=== PATIENT | male | born 1965 | race Caucasian/White ===

== ENCOUNTER 2019-07-07 14:50 | Outpatient (CLI) | payer MEDICARE, MEDICAID, SELFPAY ==
--- NOTE | 2019-07-07 14:59 | CT_ITS ---
WS: [id number] CT ABDOMEN PELVIS TECHNIQUE: Noncontrast CT of the abdomen and pelvis with coronal and sagittal reformatted images. CLINICAL INFORMATION: FLANK PAIN COMPARISON: CT 2 15,019 DLP: 1182.[address] scans at [facility] use at least one of these dose optimization techniques: automat ed exposure control; mA and/or kV adjustment per patient size (includes targeted exams where dose is matched to clinical indication); or iterative reconstruction. FINDINGS: Noncontrast liver is normal in appearance. A few small hepatic cyst in the left hepatic lobe and righ t hepatic lobe laterally. Extensive diffuse polycystic kidneys bilaterally similar in appearance to p rior examination. Largest dominant cyst right kidney measures approximately 8.2 x 6.7 cm this is stab le compared to the prior examination. Dominant left-sided cyst lower pole left kidney measuring 8.4 c m also stable. The cystic burden overall appears unchanged. Some of the renal cyst are increased atte nuation likely calcified and/or hemorrhagic also similar in appearance. Again seen is extensive bilateral pelvocaliectasis with severe bilateral hydronephrosis. Moderate ure terectasis. This is unchanged in appearance since 2019. Ureters are dilated down to the UVJ. Mild diffuse bladder wall thickening can be seen with bladder ou tlet obstruction and/or cystitis. Prostate measures approximately 3.2 x 3.9 CM. No obstructing ureter al calculi. Small esophageal hiatal hernia. Lung bases are well aerated. Normal lumbar spine. Small amount of emani e fluid in the pelvis. Stable peritoneal dialysis catheter. CT/CT kidney stone [id number] IMPRESSION: 1. Extensive polycystic kidney disease bilaterally unchanged since 2019. 2. Severe bilateral hydronephrosis with pelvocaliectasis and ureterectasis is also unchanged. No obstructing ureteral calculi. Ureterectasis extends to the U VJ. 3. Mild diffuse bladder wall thickening can be seen with chronic bladder outle t obstruction or cystitis. This is also unchanged. 4. Small amount of free fluid in the pelvis. 5. Stable peritoneal dialysis catheter.
== END 2019-07-07 14:51 | disposition home or self-care (01) ==
LOC: RADWPI 14:58
PROVIDERS: Family Provider Family Medicine; Visit Provider Internal Medicine Nephrology
DX: R10.9 Unspecified abdominal pain (principal); Z87.442 Personal history of urinary calculi; N18.6 End stage renal disease; Q61.3 Polycystic kidney, unspecified; N13.30 Unspecified hydronephrosis; N13.4 Hydroureter
CPT/HCPCS: 74176

== ENCOUNTER 2019-08-01 07:08 | Outpatient (CLI) | payer MEDICARE, MEDICAID, SELFPAY ==
[2019-08-01 07:23] VITALS: BMI 29.0
[2019-08-01] MEDS: diphenhydrAMINE 25 mg Capsule (08:26)
[2019-08-01 08:35] VITALS: BP 147/89; PULSE 65; RESP 18; TEMP 36.4
[2019-08-01 08:49] VITALS: BP 161/82; PULSE 63; RESP 18; TEMP 36.7
[2019-08-01 09:05] VITALS: BP 176/89; PULSE 61; RESP 18; TEMP 37.2
[2019-08-01 09:35] VITALS: BP 178/95; PULSE 62; RESP 18; TEMP 37.1
[2019-08-01 10:05] VITALS: BP 163/95; PULSE 57; RESP 18; TEMP 37
== END 2019-08-01 07:09 | disposition home or self-care (01) ==
PROVIDERS: Family Provider Family Medicine; Visit Provider Internal Medicine Nephrology
DX: K92.2 Gastrointestinal hemorrhage, unspecified (principal); R31.9 Hematuria, unspecified; D63.1 Anemia in chronic kidney disease; Q61.2 Polycystic kidney, adult type; R53.83 Other fatigue
CPT/HCPCS: 36430; 86850; 86900; 86920; P9040

== ENCOUNTER 2019-11-27 00:44 | Inpatient (IN) | payer MEDICARE, MEDICAID, SELFPAY ==
[2019-11-27] VITALS (31 sets, daily range): BP systolic 108–162; BP diastolic 60–97; PULSE 67–83; RESP 14–25; TEMP 36.6–36.9; O2SAT 91–100; BMI 29.0
[2019-11-27 01:34] LABS: Basophils % 0.1 %; Eosinophils % 0.2 %; Hematocrit 30.7 % (42.0-52.0); Hemoglobin 10.5 g/dL (11.7-16.6); Lymphocytes % 9.4 %; Mean Corpuscular HGB Conc 34.2 g/dL (30.0-36.0); Mean Corpuscular Hemoglobin 30.2 pg (28.0-34.0); Mean Corpuscular Volume 88.2 fL (80-94); Monocytes # 0.9 10^3/uL (0.2-0.9); Monocytes % 8.5 %; Neutrophils # 8.5 10^3/uL (1.8-7.7); Neutrophils % 81.5 %; Nucleated Red Blood Cells % 0 %; Platelet Count 166 10^3/cmm (130-400); Red Blood Count 3.48 10^6/uL (4.1-5.3); Red Cell Distribution Width 13.8 % (12.1-15.1); White Blood Count 10.4 10^3/uL (4.0-10.0)
[2019-11-27 01:47] LABS: Alanine Aminotransferase 14 U/L (0-41); Albumin Level 3.5 g/dL (3.5-5.2); Alkaline Phosphatase 60 IU/L (40-130); Anion Gap 26.4 (5-19); Aspartate Amino Transferase 13 U/L (0-40); Calcium 9.9 mg/dL (8.5-10.5); Carbon Dioxide 22 mmol/L (22-29); Chloride 88 mmol/L (98-107); Globulin 2.8 g/dL (1.3-4.6); Glomerular Filtration Rate 3.1 mL/min (90-130); Glucose 123 mg/dL (65-115); Osmolality Calculated 277 mOsm/kg (285-295); Potassium 3.4 mmol/L (3.5-5.1); Sodium 133 mmol/L (136-145); Total Bilirubin 0.3 mg/dL (0.15-1.2); Total Protein 6.3 g/dL (6.6-8.7)
[2019-11-27 01:49] LABS: Blood Urea Nitrogen 83 mg/dL (6-20)
[2019-11-27 01:58] LABS: INR 1.01 (0.8-1.2); Partial Thromboplastin Time 33.3 SECONDS (23.9-36.7)
[2019-11-27 02:31] LABS: Magnesium 2.5 mg/dL (1.7-2.3); Phosphorus 7.2 mg/dL (2.5-4.5)
[2019-11-27 02:36] LABS: Add Urine Microscopic? YES; Bilirubin Urine Neg (NEGATIVE); Blood Urine 3+ (Negative); Glucose Urine UA Norm (Normal); Ketones Urine Negative (Negative); Leukocyte Esterase Urine 2+ (Negative); Nitrate Urine Positive (Negative); Protein Urine 3+ (Negative); Specific Gravity, Urine 1.005 (1.005-1.030); Sulfosalicylic Acid Urine Positive (Negative); Urine Appearance Bloody (CLEAR); Urine Color Yellow (Yellow); Urobilinogen Urine Norm (Negative); pH Urine 8 (5-7)
[2019-11-27 02:38] LABS: Add Urine Culture? Yes; Bacteria Urine 2+; RBC Urine TOO NUMEROUS TO CNT /hpf (0-2); Squamous Epithelial Cell Urine 0-4 (0-5); WBC Urine TOO NUMEROUS TO CNT /hpf (0-5)
--- NOTE | 2019-11-27 03:24 | P.HP_ITS ---
Providers/Chief Complaint Chief Complaint: POSSIBLE LOW HEMOGLOBIN History of Present Illness Navneet Savage is a 54 year old male who is a patient of Dr. Candelaria for end-stage renal disease, peritoneal dialysis dependent, came in for generalized weakness. Patient is stating that he manages his peritoneal dialysis on his own. For last 2 to 3 weeks he has been feeling extremely tired and fatigued, he has not experienced any fever, chest pain, neurological deficit, chills, dysuria , shortness of breath, orthopnea or PND. His p.o. intake has decreased, he experiences loose stools on and off but no aggravation recently, no recent use of antibiotics. He hardly gets out of his home. Smokes half a pack a day, does not drink alcohol. Because of his generalized weakness and increasing lethargy he decided to come to the hospital for further evaluation. No recent sick contacts or traveling history. Diagnostics in the ER revealed chronic anemia, mild leukocytosis, hypokalemia, uremia abnormal urinalysis with positive nitrates with pyuria positive leukocyte esterase however he has been afebrile in the hospital, systolic blood pressure ranging between 1 50-[address] abdomen pelvis because of previous history of nephrolithiasis and ureteral ectasia Review of Systems Const: Reports: chills, body aches, fatigue and malaise; Denies: fever(s) Eyes: Denies: change in vision ENMT: Denies: throat pain or uvular edema Card: Denies: chest pain or swelling of feet/ankles Resp: Denies: dyspnea GI: Reports: diarrhea; Denies: abdominal pain, nausea or vomiting : Denies: flank pain or difficulty urinating Musc: Denies: neck pain, joint stiffness, limited range of motion or muscle weakness Skin/Breast: Denies: rash or pruritus Neuro: Denies: headache(s) or weakness in extremities Psych: Reports: depression and sleeping more; Denies: anxiety or mood swings Endo: Denies: polyuria Lucas/Lymph: Denies: easy bruising All/Imm: Denies: urticaria Medications/Allergies Allergies Allergy/AdvReac Type Severity Reaction Status Date / Time Penicillins Allergy ALGY-Anaphy Verified 08/01/19 07:27 laxis Sulfa (Sulfonamide Allergy Unknown Verified 08/01/19 07:27 Antibiotics) PFSH Acute PFSH: Medical History Bradycardia CVA (cerebral vascular accident) Dependence on peritoneal dialysis Hypertension Nicotine dependence Peritoneal dialysis catheter in situ Polycystic kidney disease Surgical History History of surgical procedure Peritoneal dialysis catheter placement by Dr. Kamara 2015 Family History Other Chronic kidney disease (CKD) Hypertension Social History (Updated 11/27/19 @ 04:23 by Deborah Singh MD) Smoking and tobacco status: heavy tobacco smoker cigarettes [ Other cigarette details: Half a pack per day for last 20-30 years ] Alcohol intake: never Substance/Drug Use: never Household members: family Housing: House Vitals/I&O/Wt Last Vital Signs Temp 98.1 F 11/27/19 00:54 Pulse 82 11/27/19 02:23 Resp 14 11/27/19 02:23 BP 151/83 11/27/19 02:23 Pulse Ox 96 11/27/19 02:23 Weight last 48 hrs Weight 81.647 kg Physical Exam Narrative: EXAM NARRATIVE: Head to toe examination Dehydrated emaciated unkempt appearance Awake alert oriented x3 GCS 15 Asterixis negative No active signs of fluid overload S1, S2 no signs of heart failure or tachycardia Bilateral breath sounds without adventitious rhonchi or crackles No respiratory distress Abdomen distended, visceral obesity, peritoneal dialysis site without any drainage or signs of infection Abdomen is soft Neurologically no focal deficit Awake alert oriented No signs of icterus No CVA tenderness Data : 11/27/19 01:25 11/27/19 01:25 A&P Assessment and plan (1) Acute UTI: Status: Acute (2) Acute uremia: Status: Acute (3) Chronic kidney failure: Status: Acute Qualifiers: Chronic kidney disease stage: stage 5 Qualified Code(s): N18.5 - Chronic kidney disease, stage 5 (4) Chronic anemia: Status: Acute Additional A&P Information Generalized weakness with UTI Seems secondary to electrolyte imbalance, UTI and uremia Afebrile, normal blood pressure, mild leukocytosis with abnormal urinalysis Patient is not sexually active I have requested CT abdomen to rule out nephrolithiasis We will check TSH Rule out COVID Would use ferritin and CRP along d-dimer to monitor inflammatory markers Urine culture sent Previous CT scan showed hydroureter leg ectasia without calculi Renal consult Peritoneal dialysis dependent I believe he is not dialyzing himself very well, still has uremia Hypokalemic, hyperphosphatemia Non-acidotic Anemia of chronic disease Hemoglobin stable no active bleeding Full code DVT prophylaxis would avoid anticoagulation because of history of anemia Renal diet Attestations Medical Necessity Statement*: Anticipating discharge in less than 48 hours Time Spent in Patient Care: (>than 50% of time spent in counselling and/or direct pt care on unit) . 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
--- NOTE | 2019-11-27 03:35 | CTR_ITS ---
PROCEDURE INFORMATION: Exam: CT Abdomen And Pelvis Without Contrast Exam date and time: 11/27/2019 3:50 AM Age: 54 years old Clinical indication: Nausea; Additional info: History of nephrolithiasis TECHNIQUE: Imaging protocol: Computed tomography of the abdomen and pelvis without contrast. Radiation optimization: All CT scans at this facility use at least one of these dose optimization techniques: automated exposure control; mA and/or kV adjustment per patient size (includes targeted exams where dose is matched to clinical indication); or iterative reconstruction. COMPARISON: CT Abdomen/Pelvis Renal [id number] 2018-07-08 11:47 FINDINGS: Tubes, catheters and devices: Peritoneal dialysis catheter present. Lungs: There is a pulmonary parenchymal calcification consistent with remote granulomatous organism exposure. Heart: Low dense blood pool in the heart indicating anemia. Liver: Small, less than 5 mm, liver hypodensity. Highly likely to be benign and does not require follow-up imaging or biopsy per ACR. Gallbladder and bile ducts: Normal. No calcified stones. No ductal dilation. Pancreas: Normal. No ductal dilation. Spleen: Borderline splenic enlargement. Adrenals: Benign 1.7 cm left adrenal adenoma. Kidneys and ureters: Extremely large bilateral polycystic kidneys with numerous large cysts, some are hemorrhagic or proteinaceous. Bilateral unchanged severe hydroureter and hydronephrosis leading up to the ureteralvesicular junction without calculi. Severely enlarged kidneys displace the surrounding internal structures. Stomach and bowel: Nonspecific cecal wall thickening, recommend followup to exclude neoplasm. Appendix: No evidence of appendicitis. Intraperitoneal space: Small amount of free fluid. Vasculature: Unremarkable. No abdominal aortic aneurysm. Lymph nodes: Unremarkable. No enlarged lymph nodes. Bladder: Bladder wall thickening. Reproductive: Mild prostate gland enlargement with punctate calcification. Bones/joints: Unremarkable. No acute fracture. Soft tissues: Unremarkable. Other findings: Innumerable Total DLP (mGy-cm): 1581.59 CT/CT kidney stone [id number] IMPRESSION: 1. Nonspecific cecal wall thickening, recommend followup to exclude neoplasm. 2. Extremely large bilateral polycystic kidneys with numerous large cysts, some are hemorrhagic or proteinaceous. 3. Small amount of free fluid. Peritoneal dialysis catheter present. 4. Bladder wall thickening. Bilateral unchanged severe hydroureter and hydronephrosis leading up to the ureteralvesicular junction without calculi. 5. Benign 1.7 cm left adrenal adenoma. COMMENTS: Consistent with the [employer]'s Incidental Findings Committee white paper (J Am Eriberto Radiol 2017): For any incidental adrenal lesion greater than 1.0 cm but less than 4.0 cm classified in this report as benign, likely benign, or containing fat (including classification as an adenoma or myelolipoma), no follow-up imaging is recommended per consensus recommendations based on imaging criteria. Further lab evaluation could be pursued if warranted based on clinical findings. Radiation Dose CTDIVOL = (mGy): DLP = 1581.59 (mGy-cm)
--- NOTE | 2019-11-27 03:47 | ED_ITS ---
HPI - General Adult General: Chief complaint: General Medical Stated complaint: POSSIBLE LOW HEMOGLOBIN Time Seen by Provider: 11/27/19 01:04 History of Present Illness: HPI narrative: 54-year-old male complains of generalized weakness for the past several days. He fell once. He has been quite sleepy according to his . No fever. He does peritoneal dialysis at home. No changes to that recently. He has had to have multiple transfusions in the past, and his figured that his blood count was low. Onset (ago): day(s) Radiation: non-radiation Severity: moderate Quality: other Exacerbating factors: movement Associated symptoms: Reports confusion, headache(s) and weakness; Deny chest pain, cough, dyspnea, fevers/chills, rash or vomiting Review of Systems Const: Denies: fever(s) or chills Eyes: Denies: change in vision ENMT: Denies: swelling of lips/tongue or epistaxis Card: Denies: chest pain Resp: Denies: dyspnea or wheezing GI: Denies: vomiting : Reports: hematuria; Denies: difficulty urinating or dysuria Musc: Reports: back pain; Denies: neck pain or joint warmth Skin/Breast: Denies: rash, pruritus or erythema Neuro: Reports: headache(s) and confusion Psych: Denies: anxiety PFSH ED PFSH: Medical History (Updated 11/27/19 @ 04:00 by Thomas Smart DO) Bradycardia CVA (cerebral vascular accident) Dependence on peritoneal dialysis Hypertension Nicotine dependence Peritoneal dialysis catheter in situ Polycystic kidney disease Surgical History (Updated 11/27/19 @ 03:35 by Deborah Singh MD) History of surgical procedure Peritoneal dialysis catheter placement by Dr. Kamara 2015 Family History (Updated 11/27/19 @ 03:30 by Deborah Singh MD) Other Chronic kidney disease (CKD) Hypertension Social History (Updated 11/27/19 @ 03:31 by Deborah Singh MD) Smoking and tobacco status: former smoker Alcohol intake: never Substance/Drug Use: never Household members: family Housing: House Physical Exam Const: GENERAL APPEARANCE: well developed, lethargic and ill appearing ORIENTATION/CONSCIOUSNESS: Yes oriented to person, Yes oriented to place, Yes oriented to time and Yes lethargic HENMT: COMMON NORMALS: normocephalic, external ears normal and Normal external nose present HEAD & SCALP: normocephalic; no scalp tenderness FACE & SINUS: normal facial exam NOSE: Normal external nose present and No nasal discharge present EXTERNAL EAR: Yes external ears normal MOUTH: tongue normal Eye: COMMON NORMALS: Equal, round and reactive pupils present, EOMs intact bilaterally and conjunctivae normal EYELID: eyelids normal CONJUNCTIVA: Yes conjunctivae normal PUPIL: Yes Equal, round and reactive pupils present Neck/C-Spine: COMMON NORMALS: full ROM GENERAL: No tracheal deviation Chest: COMMONS NORMALS: normal inspection of the chest CHEST: No tenderness Resp: COMMON NORMALS: clear to auscultation bilaterally EFFORT & INSPECTION: No tachypneic, No respiratory distress, No retractions, No uses accessory muscles and No tracheal deviation AUSCULTATION: clear to auscultation bilaterally, no rhonchi, no wheezes and lung sounds not diminished Cardio: COMMON NORMALS: regular rate and regular rhythm RATE: regular rate RHYTHM: regular rhythm HEART SOUNDS: no murmurs PERIPHERAL PULSES: radial pulses present GI: INSPECTION: No abdominal distension AUSCULTATION: No Hyperactive bowel sounds present and No Hypoactive bowel sounds present PALPATION: No Guarding due to palpation present (GI) and No Rigid due to palpation PERCUSSION: no dullness to percussion and no tympanic to percussion Neuro: SENSORIUM/ORIENTATION: Yes oriented to person, Yes oriented to place, Yes oriented to time and Yes lethargic SPEECH: Other neuro speech findings (Slurring) SENSORY EXAM: Yes extremities (Intact) MOTOR EXAM: Pronator motor function not present Skin: COMMON NORMALS: no rashes or lesions noted GENERAL SKIN EXAM: no rashes or lesions noted Course Consultations: Consultation #1: nita Vital Signs: Vital signs: Vital Signs Temperature 98.1 F 11/27/19 00:54 Pulse Rate 82 11/27/19 03:48 Respiratory Rate 16 11/27/19 03:48 Blood Pressure 150/89 11/27/19 03:48 Pulse Oximetry 99 11/27/19 03:48 MDM - General Adult MDM Narrative: Medical decision making narrative: 54-year-old male dialysis patient. He does peritoneal dialysis. He is experienced lethargy, malaise, some mild confusion. He is not had a fever. His white blood cell count is 10.4. His hemoglobin is 10.5. His BUN is 83 with a creatinine of 16.2. His bicarbonate level is normal. He has hematuria. He has a urinary tract infection. CT renal stone protocol is been ordered. He will get Rocephin here. He will be admitted. Hospitalist agrees. Lab Data: Labs: Lab Results 11/27/19 11/27/19 11/27/19 Range/Units 01:25 01:25 01:25 WBC 10.4 H (4.0-10.0) 10^3/ uL RBC 3.48 L (4.1-5.3) 10^6/u L Hgb 10.5 L (11.7-16.6) g/dL Hct 30.7 L (42.0-52.0) % MCV 88.2 (80-94) fL MCH 30.2 (28.0-34.0) pg MCHC 34.2 (30.0-36.0) g/dL RDW 13.8 (12.1-15.1) % Plt Count 166 (130-400) 10^3/c mm MPV 10.0 (7.4-10.4) fL Neut % (Auto) 81.5 % Lymph % (Auto) 9.4 % [place] % (Auto) 8.5 % Eos % (Auto) 0.2 % Baso % (Auto) 0.1 % Neut # (Auto) 8.5 H (1.8-7.7) 10^3/u L Lymph # (Auto) 1.0 (0.8-4.8) 10^3/u L [place] # (Auto) 0.9 (0.2-0.9) 10^3/u L Eos # (Auto) 0.0 (0.0-0.8) 10^3/u L Baso # (Auto) 0.0 (0.0-0.1) 10^3/u L Nucleated RBC % (a uto) 0 % Nucleated RBCs # 0.0 /100WBC PT 13.60 H (10.5-13.3) SECO NDS INR 1.01 (0.8-1.2) APTT 33.3 (23.9-36.7) SECO NDS Sodium 133 L (136-145) mmol/L Potassium 3.4 L (3.5-5.1) mmol/L Chloride 88 L (98-107) mmol/L Carbon Dioxide 22 (22-29) mmol/L Anion Gap 26.4 H (5-19) BUN 83 H* (6-20) mg/dL Creatinine 16.2 H* (0.7-1.2) mg/dL GFR Calculation 3.1 L (90-130) mL/min Glucose 123 H (65-115) mg/dL Calculated Osmolal ity 277 L (285-295) mOsm/k g Calcium 9.9 (8.5-10.5) mg/dL Phosphorus (2.5-4.5) mg/dL Magnesium (1.7-2.3) mg/dL Total Bilirubin 0.3 (0.15-1.2) mg/dL AST 13 (0-40) U/L ALT 14 (0-41) U/L Alkaline Phosphata se 60 (40-130) IU/L Total Protein 6.3 L (6.6-8.7) g/dL Albumin 3.5 (3.5-5.2) g/dL Globulin 2.8 (1.3-4.6) g/dL Urine Color (Yellow) Urine Appearance (CLEAR) Urine pH (5-7) Ur Specific Gravit y (1.005-1.030) Urine Protein (Negative) Urine Glucose (UA) (Normal) Urine Ketones (Negative) Urine Blood (Negative) Urine Nitrate (Negative) Urine Bilirubin (NEGATIVE) Prot Sulfosalicyli c Acd (Negative) Urine Urobilinogen (Negative) mg/dL Ur Leukocyte Estephania ase (Negative) Urine RBC (0-2) /hpf Urine WBC (0-5) /hpf Ur Squamous Epith Cells (0-5) Amorphous Sediment Urine Bacteria (NONE) Blood Type Rho(D) Type Antibody Screen 11/27/19 11/27/19 11/27/19 Range/Units 01:25 01:25 01:56 WBC (4.0-10.0) 10^3/ uL RBC (4.1-5.3) 10^6/u L Hgb (11.7-16.6) g/dL Hct (42.0-52.0) % MCV (80-94) fL MCH (28.0-34.0) pg MCHC (30.0-36.0) g/dL RDW (12.1-15.1) % Plt Count (130-400) 10^3/c mm MPV (7.4-10.4) fL Neut % (Auto) % Lymph % (Auto) % [place] % (Auto) % Eos % (Auto) % Baso % (Auto) % Neut # (Auto) (1.8-7.7) 10^3/u L Lymph # (Auto) (0.8-4.8) 10^3/u L [place] # (Auto) (0.2-0.9) 10^3/u L Eos # (Auto) (0.0-0.8) 10^3/u L Baso # (Auto) (0.0-0.1) 10^3/u L Nucleated RBC % (a uto) % Nucleated RBCs # /100WBC PT (10.5-13.3) SECO NDS INR (0.8-1.2) APTT (23.9-36.7) SECO NDS Sodium (136-145) mmol/L Potassium (3.5-5.1) mmol/L Chloride (98-107) mmol/L Carbon Dioxide (22-29) mmol/L Anion Gap (5-19) BUN (6-20) mg/dL Creatinine (0.7-1.2) mg/dL GFR Calculation (90-130) mL/min Glucose (65-115) mg/dL Calculated Osmolal ity (285-295) mOsm/k g Calcium (8.5-10.5) mg/dL Phosphorus 7.2 H (2.5-4.5) mg/dL Magnesium 2.5 H (1.7-2.3) mg/dL Total Bilirubin (0.15-1.2) mg/dL AST (0-40) U/L ALT (0-41) U/L Alkaline Phosphata se (40-130) IU/L Total Protein (6.6-8.7) g/dL Albumin (3.5-5.2) g/dL Globulin (1.3-4.6) g/dL Urine Color Yellow (Yellow) Urine Appearance Bloody A (CLEAR) Urine pH 8 H (5-7) Ur Specific Gravit y 1.005 (1.005-1.030) Urine Protein 3+ H (Negative) Urine Glucose (UA) Norm (Normal) Urine Ketones Negative (Negative) Urine Blood 3+ H (Negative) Urine Nitrate Positive H (Negative) Urine Bilirubin Neg (NEGATIVE) Prot Sulfosalicyli c Acd Positive (Negative) Urine Urobilinogen Norm (Negative) mg/dL Ur Leukocyte Estephania ase 2+ H (Negative) Urine RBC Too numerous to c nt H (0-2) /hpf Urine WBC Too numerous to c nt H (0-5) /hpf Ur Squamous Epith Cells 0-4 H (0-5) Amorphous Sediment Not Reportable Urine Bacteria 2+ H (NONE) Blood Type A Positive Rho(D) Type Positive Antibody Screen Negative Discharge Plan Discharge Patient Disposition: Admitted As Inpatient Clinical Impression: Acute UTI, Acute uremia Chronic kidney failure Qualifiers: Chronic kidney disease stage: stage 5 Qualified Code(s): N18.5 - Chronic kidney disease, stage 5 Condition: Stable Coding Level of Care Code ED Physical Therapy Aide for Eric Fwd Exam Comprehensive
[2019-11-27] MEDS: cefTRIAXone 1,000 MG in sodium chloride 0.9% (plus) 50 ML 100 MG IV (04:20)
--- NOTE | 2019-11-27 06:43 | PC.NURSE ---
Pt arrived to room from ER. Currently resting in bed, breathing is even and unlabored. Denies any pain. VS WNL. Will pass on report to day shift nurse. Call light and bedside table within reach. Bed in lowest position.
--- NOTE | 2019-11-27 06:50 | PC.NURSE ---
Report received from ARNALDO Harper. Pt recently arrived from ED. He has an #18 Iv in right FA. He has a patch on his left shoulder.. He is CSU of, covid rule out. Care assumed.
--- NOTE | 2019-11-27 07:30 | PC.NURSE ---
Telenephrology done. Pt to received PD today. Patch on left shoulder verified to be clonodine, pt stated it was applied 4 days ago, and is due to be changed. Pt is a poor historian, unable to tell Dr Luis what PC fluid he used, but able to say yellow bag.
--- NOTE | 2019-11-27 07:49 | PM.CONSULT ---
Providers/Reason For Consult Consulting Physican/Specialty*: jorge ziegler md telenephrology Reason for Consult*: ESRD care Attending Physician: Richie Loaiza MD History of Present Illness History of Present Illness Navneet Savage is a 54 year old male ESRD, polycystic kidneys and known hydroureters. Pt on CCPD. pt here w/ weakness and lethargy. has htn Review of Systems General: Reports: 10 or more systems reviewed and unremarkable except in HPI and below Narrative: full ROS reviewed- he is weak, lethargic, poor appetite, depressed, poor BM Meds/Allergies Home Medications and Allergies Allergies Allergy/AdvReac Type Severity Reaction Status Date / Time Penicillins Allergy ALGY-Anaphy Verified 08/01/19 07:27 laxis Sulfa (Sulfonamide Allergy Unknown Verified 08/01/19 07:27 Antibiotics) PFSH Acute PFSH: Medical History Bradycardia CVA (cerebral vascular accident) Dependence on peritoneal dialysis Hypertension Nicotine dependence Peritoneal dialysis catheter in situ Polycystic kidney disease Surgical History History of surgical procedure Peritoneal dialysis catheter placement by Dr. Kamara 2015 Family History Other Chronic kidney disease (CKD) Hypertension Social History (Updated 11/27/19 @ 04:23 by Deborah Singh MD) Smoking and tobacco status: heavy tobacco smoker cigarettes [ Other cigarette details: Half a pack per day for last 20-30 years ] Alcohol intake: never Substance/Drug Use: never Household members: family Housing: House Vitals/I&O/Wt Last Vital Signs Temp 98.4 F 11/27/19 06:30 Pulse 75 11/27/19 06:30 Resp 14 11/27/19 06:30 BP 162/86 11/27/19 06:30 Pulse Ox 99 11/27/19 06:30 Weight last 48 hrs Weight 81.647 kg Physical Exam Narrative: EXAM NARRATIVE: disshelved, NARD in bed vs noted- BP elevated heent- nc/at, eomi, anicteric neck no jvp, no bruits lungs cta b/l heart reg no rub abd soft, nt. nd, +BS, + tenkoff catheter ext no edema neuro- a,a, o x 3 Data Imaging^: CT Abd/Pel: Radiologist's impression: [address] [place] [address] CT Scan Report Signed Patient: Navneet Savage #: [id number] : 1965Acct#:[id number] Age/Sex: 54 / MADM Date: 11/27/19 Loc: ERRoom/Bed: Attending Dr: Ordering Provider/Ordering MD: Deborah Singh MD Date of Service: 11/27/19 Procedure(s): CT kidney stone 85540 Accession Number(s): [id number] Report Number: [id number] PROCEDURE INFORMATION: Exam: CT Abdomen And Pelvis Without Contrast Exam date and time: 11/27/2019 3:50 AM Age: 54 years old Clinical indication: Nausea; Additional info: History of nephrolithiasis TECHNIQUE: Imaging protocol: Computed tomography of the abdomen and pelvis without contrast. Radiation optimization: All CT scans at this facility use at least one of these dose optimization techniques: automated exposure control; mA and/or kV adjustment per patient size (includes targeted exams where dose is matched to clinical indication); or iterative reconstruction. COMPARISON: CT Abdomen/Pelvis Renal [id number] 2018-07-08 11:47 FINDINGS: Tubes, catheters and devices: Peritoneal dialysis catheter present. Lungs: There is a pulmonary parenchymal calcification consistent with remote granulomatous organism exposure. Heart: Low dense blood pool in the heart indicating anemia. Liver: Small, less than 5 mm, liver hypodensity. Highly likely to be benign and does not require follow-up imaging or biopsy per ACR. Gallbladder and bile ducts: Normal. No calcified stones. No ductal dilation. Pancreas: Normal. No ductal dilation. Spleen: Borderline splenic enlargement. Adrenals: Benign 1.7 cm left adrenal adenoma. Kidneys and ureters: Extremely large bilateral polycystic kidneys with numerous large cysts, some are hemorrhagic or proteinaceous. Bilateral unchanged severe hydroureter and hydronephrosis leading up to the ureteralvesicular junction without calculi. Severely enlarged kidneys displace the surrounding internal structures. Stomach and bowel: Nonspecific cecal wall thickening, recommend followup to exclude neoplasm. Appendix: No evidence of appendicitis. Intraperitoneal space: Small amount of free fluid. Vasculature: Unremarkable. No abdominal aortic aneurysm. Lymph nodes: Unremarkable. No enlarged lymph nodes. Bladder: Bladder wall thickening. Reproductive: Mild prostate gland enlargement with punctate calcification. Bones/joints: Unremarkable. No acute fracture. Soft tissues: Unremarkable. Other findings: Innumerable Total DLP (mGy-cm): 1581.59 CT/CT kidney stone 18237 IMPRESSION: 1. Nonspecific cecal wall thickening, recommend followup to exclude neoplasm. 2. Extremely large bilateral polycystic kidneys with numerous large cysts, some are hemorrhagic or proteinaceous. 3. Small amount of free fluid. Peritoneal dialysis catheter present. 4. Bladder wall thickening. Bilateral unchanged severe hydroureter and hydronephrosis leading up to the ureteralvesicular junction without calculi. 5. Benign 1.7 cm left adrenal adenoma. A&P Additional A&P Information 54 yr old man 1. ESRD- cont CAPD w/ 4 exchanges a day of 2.5% gluc 2. hypokalemia -replete 3. Likely UTI- u/a bloody, alkalotic, 3+ prot, pos nitirite,2+ LE, too numerous to counts RBC and WBC, bact 2+ 4. anemia of ESRD 5. Bone- mineral- metabolism of ESRD- check ca, phos, pth 6. htn- catapress patch, CAPD, hydralazine, clonidine- monitor for hypotension 7. d/c na bicarb 8. 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
[2019-11-27 07:56] LABS: Procalcitonin 0.64 ng/mL (0-0.5); Thyroid Stimulating Hormone 5.79 uIU/mL (0.27-4.20)
[2019-11-27 08:07] LABS: Creatine Phosphokinase 136 U/L (39-308)
[2019-11-27] MEDS: sodium bicarbonate 650 mg Tablet PO ×3 (08:11→22:24)
[2019-11-27] MEDS: hyDRALAzine 10 mg Tablet PO ×3 (08:11→22:24)
[2019-11-27] MEDS: NIFEdipine ER (24 hr) 30 mg Tablet 90 MG PO (08:11)
[2019-11-27] MEDS: potassium chloride ER 10 mEq Tablet 20 MEQ PO (08:11)
[2019-11-27] MEDS: polyethylene glycol 3350 Pkt 17 gm PO (08:11)
[2019-11-27] MEDS: tamsulosin 0.4 mg Capsule PO (08:12)
[2019-11-27 08:21] LABS: Ferritin 1195 ng/mL (30-400)
[2019-11-27] MEDS: cloNIDine 0.3 mg/24 hr Patch 1 PATCH TRANSDERMA (09:34)
[2019-11-27] MEDS: Dianeal low Ca w/2.5% dex 2,000 mL Bag 2000 ML INTRAPERIT ×4 (09:37→22:24)
[2019-11-27 11:00] LABS: Amphetamines Screen Urine Negative (Negative); Barbiturates Screen Urine Negative (Negative); Benzodiazepines Screen Urine Negative (Negative); Cocaine Screen Urine Negative (Negative); Opiate Screen Urine Negative (Negative); PCP Screen Urine Negative (Negative); THC Screen Urine Negative (Negative)
[2019-11-27 11:27] LABS: Iron 61 ug/dL (59-158); Percent Saturation 45.1 % (20-50); Total Iron Binding Capacity 135 mcg/dl; Unsaturated Iron Binding 74 ug/dL (112-347)
--- NOTE | 2019-11-27 12:19 | PM.PN ---
Subjective Subjective: Interval history: Admitted overnight. H&P and labs noted. Patient lying comfortably in bed. COVID-19 has been sent out. Patient has been feeling weak, lethargic and some myalgias for last 2 to 3 weeks. She is also been complaining of some diarrhea and abdominal pain. Vitals/I&O/Wt Last Vital Signs Temp 98.1 F 11/27/19 09:37 Pulse 72 11/27/19 10:30 Resp 18 11/27/19 10:30 BP 125/72 11/27/19 10:30 Pulse Ox 98 11/27/19 10:30 Weight last 48 hrs Weight 81.057 kg Weight 81.647 kg Physical Exam Narrative: EXAM NARRATIVE: General: No acute distress, AO x3, cachectic, dehydrated, pale HEENT: PERRLA, pupils bilaterally equal and reactive Chest: Normal vesicular breath sounds, no added sounds, equal good air entry bilaterally CVS: S1-S2 regular, no murmurs, no tachycardia, no gallops, no rubs Abdomen: Soft, generalized tenderness, no organomegaly, bowel sounds present Neuro: No focal deficits, no facial deformity, AO x3, power 5/5 in all limbs Data : 11/27/19 01:25 11/27/19 01:25 A&P Assessment and plan (1) Acute UTI: Status: Acute (2) Acute uremia: Status: Acute (3) Chronic kidney failure: Status: Acute Qualifiers: Chronic kidney disease stage: stage 5 Qualified Code(s): N18.5 - Chronic kidney disease, stage 5 (4) Chronic anemia: Status: Acute Additional A&P Information Acute UTI: No signs of sepsis at present. Patient has mild leukocytosis, blood pressure has been within normal limits, afebrile. Check abdominal fluid to rule out peritoneal peritonitis, lactate, procalcitonin, urine culture. Patient was already started on ceftriaxone. For now we will continue the same. We will follow blood cultures, urine culture, fluid cultures and de-escalate accordingly. Patient reports episodes of diarrhea. We will check stool studies to rule out C. difficile. COVID-19 has been sent out. Isolation and droplet precaution till then. CT abdomen results appreciated. Consistent with extremely large bilateral polycystic kidney with numerous large cysts some edema hemorrhagic. Bladder wall thickening with bilateral unchanged severe hydroureter and hydronephrosis. No obstructive uropathy seen. Generalized weakness: Multifactorial because of acute UTI and uremia with BUN of 83. TSH elevated. Could be sick euthyroid syndrome as well. Will check free T3 and free T4 and start on levothyroxine accordingly. We will continue to monitor. ESRD on peritoneal dialysis: Nephrology consult appreciated. Will do medical reconciliation start him on his home dose of medications. Continue peritoneal dialysis as per nephrology. Anemia: Most likely because of iron deficiency anemia of anemia of chronic disease. Check iron panel, reticulocyte count, ferritin. We will confirm with nephrology if patient requires Procrit. Full code DVT prophylaxis: Heparin 5000 every 12 hourly. We will continue to monitor hemoglobin. Renal diet Will change admission to inpatient. 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
[2019-11-27 12:58] LABS: Free T4 Free Thyroxine 1.04 ng/dL (0.82-1.77); T3 Free 1.5 PG/ML (2.0-4.4)
--- NOTE | 2019-11-27 13:05 | PC.NURSE ---
e med list updated. Pt and significant other both, stated he still takes Zantac, which has been removed from the market. Unable to enter Zantac into home med list, although external list shows last time it was filled was July.
[2019-11-27] MEDS: heparin 5,000 unit/mL INJ 1 mL 5000 UNIT SUBCUT (14:33)
[2019-11-27 15:36] LABS: Body Fluid Polynuclear #Cells 0.002 10^3/uL; Body Fluid WBC 9 /uL; Monocytes # Body Fluid 0.007 10^3/uL; RBC, Body Fluid 0 10^3/uL (0-0)
[2019-11-27 15:37] LABS: Lactic Sepsis W/Reflex 0.4 mmol/L (0.5-2.2)
[2019-11-27 15:59] LABS: Apprearance, Body Fluid CLEAR (CLEAR); Color, Body Fluid COLORLESS (PALE YELLOW); PATH Referral YES
[2019-11-27 16:30] LABS: Albumin Body Fluid 0.2 g/dL
[2019-11-27 16:31] LABS: Amylase Body Fluid 3 U/L; LDH Body Fluid 10 U/L
--- NOTE | 2019-11-27 18:44 | PC.NURSE ---
Shift summary: Pt alert and oriented. He has denied pain throughout the day. He has had 2 complete PD exchanges today, he is working on a dwell at this time. He tolerates PD well. Peripheral IV in right FA draws blood well. He does not like his Renal diet. Hematuria noted.
[2019-11-28] VITALS (18 sets, daily range): BP systolic 115–170; BP diastolic 58–126; PULSE 71–93; RESP 9–25; TEMP 36.6–36.9; O2SAT 90–99
[2019-11-28] MEDS: heparin 5,000 unit/mL INJ 1 mL 5000 UNIT SUBCUT ×2 (02:04→14:17)
[2019-11-28] MEDS: cefTRIAXone 1,000 MG in sodium chloride 0.9% (plus) 50 ML 100 MG IV (04:46)
[2019-11-28 05:55] LABS: Basophils % 0.2 %; Eosinophils % 0.4 %; Hematocrit 30.6 % (42.0-52.0); Hemoglobin 10.2 g/dL (11.7-16.6); Lymphocytes # 1.3 10^3/uL (0.8-4.8); Lymphocytes % 12.3 %; Mean Corpuscular HGB Conc 33.3 g/dL (30.0-36.0); Mean Corpuscular Hemoglobin 29.7 pg (28.0-34.0); Mean Corpuscular Volume 89.2 fL (80-94); Mean Platelet Volume 11.1 fL (7.4-10.4); Monocytes # 0.9 10^3/uL (0.2-0.9); Monocytes % 8.6 %; Neutrophils # 8.1 10^3/uL (1.8-7.7); Nucleated Red Blood Cells % 0 %; Platelet Count 192 10^3/cmm (130-400); Red Blood Count 3.43 10^6/uL (4.1-5.3); Red Cell Distribution Width 13.8 % (12.1-15.1); White Blood Count 10.3 10^3/uL (4.0-10.0)
[2019-11-28] MEDS: Dianeal low Ca w/2.5% dex 2,000 mL Bag 2000 ML INTRAPERIT ×5 (06:13→23:25)
[2019-11-28 06:37] LABS: Alanine Aminotransferase 11 U/L (0-41); Albumin Level 3.2 g/dL (3.5-5.2); Alkaline Phosphatase 61 IU/L (40-130); Anion Gap 19.9 (5-19); Aspartate Amino Transferase 9 U/L (0-40); Carbon Dioxide 24 mmol/L (22-29); Chloride 92 mmol/L (98-107); Globulin 2.8 g/dL (1.3-4.6); Glomerular Filtration Rate 3.2 mL/min (90-130); Glucose 102 mg/dL (65-115); Magnesium 2.4 mg/dL (1.7-2.3); Osmolality Calculated 274 mOsm/kg (285-295); Potassium 3.9 mmol/L (3.5-5.1); Sodium 132 mmol/L (136-145); Total Bilirubin 0.2 mg/dL (0.15-1.2)
[2019-11-28 06:55] LABS: Calcium 9.6 mg/dL (8.5-10.5); Parathyroid Hormone 246.3 pg/mL (15-65)
[2019-11-28 07:09] LABS: Iron 59 ug/dL (59-158); Percent Saturation 52.2 % (20-50); Total Iron Binding Capacity 113 mcg/dl; Unsaturated Iron Binding 54 ug/dL (112-347)
[2019-11-28 07:10] LABS: Blood Urea Nitrogen 82 mg/dL (6-20)
[2019-11-28 07:25] LABS: Ferritin 1212 ng/mL (30-400)
--- NOTE | 2019-11-28 07:52 | PM.PN ---
Subjective Subjective: Interval history: feels well. wanst to go home. no n/v/f/c/gomez/d/fevers, or abd pain Medications: Reviewed: Yes Medication Review Details: Current Medications Alfuzosin HCl (Uroxatral) 10 mg PO DAILY [facility] Allopurinol (Zyloprim) 100 mg PO DAILY [facility] Atorvastatin Calcium (Lipitor) 20 mg PO DAILY [facility] Clonidine HCl (Catapres-Tts 3) 1 patch TRANSDERMA Q7D [facility] Last Admin: 11/27/19 09:34 Dose: 1 patch Documented by: Escitalopram Oxalate (Lexapro) 20 mg PO DAILY [facility] Heparin Sodium (Beef Lung) (Heparin) 5,000 unit SUBCUT Q12H [facility] Last Admin: 11/28/19 02:04 Dose: 5,000 unit Documented by: Hydralazine HCl (Apresoline) 10 mg PO TID [facility] Last Admin: 11/27/19 22:24 Dose: 10 mg Documented by: Ceftriaxone Sodium 1,000 mg/ (Sodium Chloride) 50 mls @ 100 mls/hr IV DAILY [facility]; Protocol Last Admin: 11/28/19 04:46 Dose: 100 mls/hr Documented by: Acetaminophen (Ofirmev) 1,000 mg in 100 mls @ 400 mls/hr IV Q8H PRN PRN Reason: PAIN Nifedipine (Procardia Xl) 90 mg PO DAILY [facility] Last Admin: 11/27/19 08:11 Dose: 90 mg Documented by: Nifedipine (Procardia Xl) 90 mg PO DAILY [facility] Non-Formulary Medication (Vit B,M-Uw-Eaks-Selen-Vit D3-E [Renaplex-D]) 1 tab PO DAILY [facility] Peritoneal Dialysis Solution (Dianeal Low Ca W/2.5% Dex) 2,000 ml INTRAPERIT 5XD [facility] Last Admin: 11/28/19 06:13 Dose: 2,000 ml Documented by: Sodium Bicarbonate (Sodium Bicarbonate) 650 mg PO TID [facility] Last Admin: 11/27/19 22:24 Dose: 650 mg Documented by: Tamsulosin HCl (Flomax) 0.4 mg PO DAILY [facility] Last Admin: 11/27/19 08:12 Dose: 0.4 mg Documented by: Vitals/I&O/Wt Last Vital Signs Temp 98.2 F 11/28/19 06:51 Pulse 71 11/28/19 06:00 Resp 18 11/28/19 06:51 BP 140/88 11/28/19 06:50 Pulse Ox 90 11/28/19 06:00 11/27/19 11/28/19 11/28/19 22:59 06:59 14:59 Intake Total 2600 / 2950 240 / 3190 Output Total 3250 / 3250 Balance -650 / -300 240 / -60 Weight last 48 hrs Weight 81.057 kg Weight 81.057 kg Weight 81.057 kg Weight 81.057 kg Weight 81.647 kg Physical Exam Narrative: EXAM NARRATIVE: VSS, NARD in bed- comfortable, sitting up and eating heent- nc/at, eomi, anicteric neck no jvp, no bruits lungs cta b/l heart reg no rub abd soft, nt. nd, +BS, + tenkoff catheter ext no edema neuro- a,a, o x 3 Data : 11/28/19 05:15 11/28/19 05:15 Micro: Microbiology 11/27/19 19:50 Blood Culture - Preliminary Blood SPECIMEN COLLECTED 11/27/19 19:50 Blood Culture - Preliminary Blood SPECIMEN COLLECTED 11/27/19 15:10 Gram Stain - Final Peritoneal Fluid A&P Additional A&P Information 54 yr old man 1. ESRD- cont CAPD w/ 4 exchanges a day of 2.5% gluc 2. hypokalemia -improved 3. Likely UTI- u/a bloody, alkalotic, 3+ prot, pos nitirite,2+ LE, too numerous to counts RBC and WBC, bact 2+ abx per hospitalist 4. anemia of ESRD - hgb stable -high ferritin. cont epo- can get as outpt 5. Bone- mineral- metabolism of ESRD- needs phos binder-and a better diet -limit mag - pth okay- no calcitriol till phos is under 7 6. htn-BP well controlled- i am concerned that he is not compliant w/ meds at home. 7. 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
[2019-11-28 08:09] LABS: Coronavirus Lab Test PTC NOT DETECTED
[2019-11-28] MEDS: NIFEdipine ER (24 hr) 30 mg Tablet 90 MG PO (08:32)
[2019-11-28] MEDS: alfuzosin 10 mg ER Tablet PO (08:33)
[2019-11-28] MEDS: escitalopram 10 mg Tablet 20 MG PO (08:33)
[2019-11-28] MEDS: sevelamer 800 mg Tablet 2400 MG PO ×3 (08:33→23:31)
[2019-11-28] MEDS: atorvastatin 40 mg Tablet 20 MG PO (08:33)
[2019-11-28] MEDS: allopurinol 100 mg Tablet PO (08:34)
[2019-11-28] MEDS: hyDRALAzine 10 mg Tablet PO ×3 (08:34→23:31)
--- NOTE | 2019-11-28 09:59 | PM.PN ---
Subjective Subjective: Interval history: No acute events overnight. Last 24 hours COVID-19 came back negative. Labs and vitals noted. Patient continues to have hematuria. He is asking when can he go home. Has remained afebrile hemodynamically stable. Denies of nausea, vomiting, any further diarrhea. Vitals/I&O/Wt Last Vital Signs Temp 98.4 F 11/28/19 09:04 Pulse 72 11/28/19 09:04 Resp 14 11/28/19 09:04 BP 152/88 11/28/19 09:04 Pulse Ox 93 11/28/19 09:04 11/27/19 11/28/19 11/28/19 22:59 06:59 14:59 Intake Total 2600 / 2950 240 / 3190 200 / 200 Output Total 3250 / 3250 50 / 50 Balance -650 / -300 240 / -60 150 / 150 Weight last 48 hrs Weight 81.057 kg Weight 81.057 kg Weight 81.057 kg Weight 81.057 kg Weight 81.647 kg Physical Exam Narrative: EXAM NARRATIVE: General: No acute distress, AO x3, cachectic, dehydrated, pale HEENT: PERRLA, pupils bilaterally equal and reactive Chest: Normal vesicular breath sounds, no added sounds, equal good air entry bilaterally CVS: S1-S2 regular, no murmurs, no tachycardia, no gallops, no rubs Abdomen: Soft, generalized tenderness, no organomegaly, bowel sounds present Neuro: No focal deficits, no facial deformity, AO x3, power 5/5 in all limbs Data : 11/28/19 05:15 11/28/19 05:15 Micro: Microbiology 11/27/19 19:50 Blood Culture - Preliminary Blood SPECIMEN COLLECTED 11/27/19 19:50 Blood Culture - Preliminary Blood SPECIMEN COLLECTED 11/27/19 15:10 Gram Stain - Final Peritoneal Fluid A&P Assessment and plan (1) Acute UTI: Status: Acute (2) Acute uremia: Status: Acute (3) Chronic kidney failure: Status: Acute Qualifiers: Chronic kidney disease stage: stage 5 Qualified Code(s): N18.5 - Chronic kidney disease, stage 5 (4) Chronic anemia: Status: Acute (5) Peritoneal dialysis catheter in situ: Status: Acute (6) Polycystic kidney disease: Status: Acute Additional A&P Information Acute UTI/pyelonephritis: No signs of sepsis at present. Patient has mild leukocytosis, blood pressure has been within normal limits, afebrile. Negative for signs of infection. Results of procalcitonin, TSH appreciated. Continue ceftriaxone for now. Will reassess antibiotics as per the culture blood culture and urine culture results. COVID-19 has been ruled out. Off isolation precautions. CT abdomen results appreciated. Consistent with extremely large bilateral polycystic kidney with numerous large cysts some edema hemorrhagic. Bladder wall thickening with bilateral unchanged severe hydroureter and hydronephrosis. Case discussed with Dr. Dougherty yesterday. Patient does have signs of obstructive uropathy because hydroureter and hydronephrosis is new. Dr. Dougherty will see patient today for possible cystoscopy and retrograde investigation. Generalized weakness: Multifactorial because of acute UTI and uremia with BUN of 83. Patient's received 4 is normal. We will start him on levothyroxine 25 mcg daily. His free T3 is on the low side. We will advise him to check TSH as an outpatient in 6 months. ESRD on peritoneal dialysis: Nephrology consult appreciated. Medical reconciliation done. Continue with Renvela. Anemia: Most likely because of iron deficiency anemia of anemia of chronic disease. Current plan appreciated. Consistent with anemia of chronic disease. We will hold off on oral iron supplementation. Hypertension: Blood pressures better. Continue with clonidine 0.3 mg patch once every 7 days, hydralazine 10 mg p.o. 3 times daily and nifedipine. Full code DVT prophylaxis: Heparin 5000 every 12 hourly. We will continue to monitor hemoglobin. Renal diet Can transfer patient to [facility]. 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
--- NOTE | 2019-11-28 17:28 | P.CONIM_ITS ---
Providers/Reason For Consult Consulting Physican/Specialty*: Urology/Dougherty Reason for Consult*: Bilateral hydronephrosis and patient with polycystic kidney disease and renal failure Attending Physician: Richie Loaiza MD History of Present Illness History of Present Illness Navneet Savage is a 54 year old male who I evaluated for the first time today at the request of Dr. Galvez. Admitted this hospital stay through the emergency department on 11/27/2019 with complaints of generalized weakness for several days with at least 1 fall. Denied any fever but has been somewhat lethargic. History of anemia. He was admitted for further evaluation and COVID testing has returned negative. Has end-stage renal disease with chronic peritoneal dialysis. On admission his creatinine was 16.2 with BUN of 83. Potassium was 3.4. CT scan of the abdomen confirmed known severe bilateral polycystic kidney changes with essentially complete replacement of normal parenchyma and filling of his bilateral retroperitoneum's. Also noted again was bilateral hydronephrosis down to the level of the UVJ and no other obvious intraluminal o bstructing process. His bladder did appear to be thickened and high-pressure configuration with some distention. These findings date back at least a year and a half without significant change from CT scan June 2018. However they were not present on CT scan in May 2016. The bladder appeared to be more normal in its configuration at that time as well. Patient reports progressive lower urinary tract symptoms of unknown duration but it sounds as though it has been >1-year. Also reports that he has had a urinary tract infection in the past. Denies recent catheterization. Clinical picture is 1 of bladder outlet obstruction progressive over time affecting both upper urinary tracts but with concurrent significant renal deterioration from severe polycystic kidney disease. There is no picture at this point of obstructive pyelonephritis or severe symptomatic UTI. Denies any significant dysuria gross hematuria etc. urinalysis did demonstrate too numerous to count white and red cells. Urine culture is not final but shows 30-40,000 colonies of gram-negative rods. I reviewed with him the work-up for the above and of recommended at some point soon to perform cystoscopy to evaluate the urethra for possible stricture disease but also prostate and bladder as well. Consider retrograde pyelograms if process appears to be supravesical. Was just informed of a positive test for C. difficile without treatment yet. We will postponed bedside cystoscopy until he is had some treatment for that. Review of Systems Const: Reports: body aches, fatigue and malaise Eyes: Denies: change in vision or blurry vision ENMT: Reports: throat pain Card: Denies: chest pain or palpitations Resp: Denies: productive cough, non-productive cough or wheezing GI: Reports: diarrhea; Denies: nausea or vomiting : Reports: difficulty urinating and difficulty starting urination; Denies: flank pain or dysuria Musc: Denies: back pain, extremity pain or joint redness Skin/Breast: Denies: rash Neuro: Denies: Slurred speech present or seizure-like activity Psych: Reports: depression Endo: Reports: tired all the time; Denies: flushing Lucas/Lymph: Denies: easy bruising, easy bleeding or enlarged lymph nodes All/Imm: Denies: urticaria or facial swelling Meds/Allergies Home Medications and Allergies Home Medications Medication Instructions Recorded Confirmed Last Taken Type alfuzosin 10 mg PO DAILY 11/27/19 11/27/19 11/26/19 History allopurinol 100 mg PO DAILY 11/27/19 11/27/19 11/26/19 History aspirin 325 mg PO DAILY 11/27/19 11/27/19 11/26/19 History clonidine 1 patch TRANSDERMAL 11/27/19 11/20/19 History clopidogrel 75 mg PO DAILY 11/27/19 11/27/19 11/26/19 History escitalopram oxalate 20 mg PO DAILY 11/27/19 11/27/19 11/26/19 History nifedipine 90 mg PO DAILY 11/27/19 11/27/19 11/26/19 History simvastatin 40 mg PO DAILY 11/27/19 11/27/19 11/26/19 History sodium bicarbonate 650 mg PO DAILY 11/27/19 11/27/19 11/26/19 History vit B,B-DZ-xznk-selen-vit D3-E 1 tab PO DAILY 11/27/19 11/27/19 11/26/19 History [RenaPlex-D] Allergies Allergy/AdvReac Type Severity Reaction Status Date / Time Penicillins Allergy ALGY-Anaphy Verified 08/01/19 07:27 laxis Sulfa (Sulfonamide Allergy Unknown Verified 08/01/19 07:27 Antibiotics) Current Medications Current Medications Generic Name Dose Route Start Last Admin Trade Name Freq PRN Reason Stop Dose Admin Alfuzosin HCl 10 mg 11/28/19 09:00 11/28/19 08:33 Uroxatral PO 10 mg DAILY MINNA Administration Allopurinol 100 mg 11/28/19 09:00 11/28/19 08:34 Zyloprim PO 100 mg DAILY MINNA Administration Atorvastatin Calcium 20 mg 11/28/19 09:00 11/28/19 08:33 Lipitor PO 20 mg DAILY MINNA Administration Clonidine HCl 1 patch 11/27/19 10:00 11/27/19 09:34 Catapres-Tts 3 TRANSDERMA 1 patch Q7D MINNA Administration Escitalopram Oxalate 20 mg 11/28/19 09:00 11/28/19 08:33 Lexapro PO 20 mg DAILY MINNA Administration Heparin Sodium (Beef Lung) 5,000 unit 11/27/19 13:00 11/28/19 14:17 Heparin SUBCUT 5,000 unit Q12H MINNA Administration Hydralazine HCl 10 mg 11/27/19 09:00 11/28/19 14:17 Apresoline PO 10 mg TID MINNA Administration Ceftriaxone Sodium 1,000 mg/ 50 mls @ 100 mls/hr 11/28/19 04:30 11/28/19 04:46 Sodium Chloride IV 100 mls/hr DAILY MINNA Administration Protocol Nifedipine 90 mg 11/28/19 09:00 11/28/19 08:22 Procardia Xl PO Not Given DAILY MINNA Peritoneal Dialysis Solution 2,000 ml 11/27/19 10:00 11/28/19 14:15 Dianeal Low Ca W/2.5% Dex INTRAPERIT 2,000 ml 5XD MINNA Administration Sevelamer Carbonate 2,400 mg 11/28/19 09:00 11/28/19 14:17 Renvela PO 2,400 mg TID MINNA Administration PFSH Acute PFSH: Medical History (Updated 11/28/19 @ 17:44 by Leopoldo Dougherty MD) Bilateral hydronephrosis Bradycardia CVA (cerebral vascular accident) Dependence on peritoneal dialysis Hypertension Incomplete bladder emptying Nicotine dependence Peritoneal dialysis catheter in situ Polycystic kidney disease Surgical History History of surgical procedure Peritoneal dialysis catheter placement by Dr. Kamara 2015 Family History Other Chronic kidney disease (CKD) Hypertension Social History Smoking and tobacco status: heavy tobacco smoker cigarettes [ Other cigarette details: Half a pack per day for last 20-30 years ] Alcohol intake: never Substance/Drug Use: never Household members: family Housing: House Vitals/I&O/Wt Last Vital Signs Temp 98.2 F 11/28/19 14:00 Pulse 85 11/28/19 16:00 Resp 25 H 11/28/19 16:00 BP 117/62 11/28/19 16:00 Pulse Ox 95 11/28/19 16:00 11/28/19 11/28/19 11/28/19 06:59 14:59 22:59 Intake Total 240 / 3190 700 / 700 250 / 950 Output Total 300 / 300 Balance 240 / -60 400 / 400 250 / 650 Weight last 48 hrs Weight 178 lb 11.2 oz Weight 178 lb 11.2 oz Weight 178 lb 11.2 oz Weight 178 lb 11.2 oz Weight 180 lb Physical Exam Const: COMMON NORMALS: no acute distress, alert and well nourished GENERAL APPEARANCE: well kempt and well developed ORIENTATION/CONSCIOUSNESS: not confused HENMT: COMMON NORMALS: normocephalic and atraumatic HEAD & SCALP: nor mocephalic and atraumatic Neck/C-Spine: GENERAL: Yes normal visual inspection Resp: COMMON NORMALS: normal respiratory effort EFFORT & INSPECTION: No labored and No Actively coughing Extremity: COMMON NORMALS: no clubbing, cyanosis or edema Neuro: COMMON NORMALS: no focal motor deficits SENSORIUM/ORIENTATION: Yes alert Psych: COMMON NORMALS: mental status grossly normal APPEARANCE: Yes grossly normal and Yes well kempt ATTITUDE: Yes calm and Yes engaged Skin: COMMON NORMALS: no rashes or lesions noted and no jaundice GENERAL SKIN EXAM: no rashes or lesions noted Data Micro: Micro: Microbiology 11/27/19 13:05 Stool Lactoferrin - Final Stool Enteric Pathogens (PCR) - Final Parasite Antigen P eder - Final C.difficile Toxin B Gene (PCR) - Fin al Occult Blood (FIT) - Final 11/27/19 01:56 Urine Culture - Pr eliminary Urine,Clean Catch Gram Negative R ods 11/27/19 15:10 Gram Stain - Final Peritoneal Fluid Body Fluid Culture - Preliminary 11/27/19 12:30 MRSA Culture - Fin al Nose 11/27/19 19:50 Blood Culture - Pr eliminary Blood SPECIMEN [facility] 11/27/19 19:50 Blood Culture - Pr eliminary Blood SPECIMEN [facility] A&P Assessment and plan (1) Polycystic kidney disease: Status: Acute (2) Bilateral hydronephrosis: Chronic since 2019 and not present in 2017. Etiology unclear but it appears that this is probably an outlet obstruction process. Status: Acute (3) Incomplete bladder emptying: Progressive bladder wall thickening over 2 to 3-year. With increasing bladder distention and post void residual scan today of 500 cc. Status: Acute (4) Chronic kidney failure: Status: Acute Qualifiers: Chronic kidney disease stage: stage 5 Qualified Code(s): N18.5 - C hronic kidney disease, stage 5 (5) Acute UTI: No clear evidence of obstructive pyelonephritis. Culture did grow 30- 40,000 colony count of gram-negative rods final pending. No acute symptoms. Status: Acute (6) C. difficile diarrhea: Status: Acute Consult Attestations Medical Necessity Statement: See attending Coding Level of Care Code Acute Psychological Aide for Chg Fwd Diagnoses Polycystic kidney disease Q61.3 Bilateral hydronephrosis N13.30 Incomplete bladder emptying R33.9 Chronic kidney failure N18.5 Chronic kidney disease stage: stage 5 Acute UTI N39.0 C. difficile diarrhea A04.72
[2019-11-29] MEDS: heparin 5,000 unit/mL INJ 1 mL 5000 UNIT SUBCUT ×2 (01:15→14:02)
[2019-11-29 04:00] VITALS: BP 145/82; PULSE 68; RESP 20; TEMP 36.7; O2SAT 95
[2019-11-29 06:01] LABS: Basophils % 0.3 %; Eosinophils # 0.1 10^3/uL (0.0-0.8); Eosinophils % 0.6 %; Hematocrit 31.9 % (42.0-52.0); Hemoglobin 10.7 g/dL (11.7-16.6); Lymphocytes # 1.3 10^3/uL (0.8-4.8); Lymphocytes % 17.1 %; Mean Corpuscular HGB Conc 33.5 g/dL (30.0-36.0); Mean Corpuscular Hemoglobin 30.1 pg (28.0-34.0); Mean Corpuscular Volume 89.6 fL (80-94); Mean Platelet Volume 11.1 fL (7.4-10.4); Monocytes # 0.7 10^3/uL (0.2-0.9); Monocytes % 8.7 %; Neutrophils # 5.7 10^3/uL (1.8-7.7); Neutrophils % 72.9 %; Nucleated Red Blood Cells % 0 %; Platelet Count 212 10^3/cmm (130-400); Red Blood Count 3.56 10^6/uL (4.1-5.3); Red Cell Distribution Width 13.5 % (12.1-15.1); White Blood Count 7.8 10^3/uL (4.0-10.0)
[2019-11-29 06:40] LABS: Alanine Aminotransferase 10 U/L (0-41); Albumin Level 3.2 g/dL (3.5-5.2); Alkaline Phosphatase 57 IU/L (40-130); Anion Gap 20.7 (5-19); Aspartate Amino Transferase 8 U/L (0-40); Blood Urea Nitrogen 71 mg/dL (6-20); Calcium 10.1 mg/dL (8.5-10.5); Carbon Dioxide 24 mmol/L (22-29); Chloride 91 mmol/L (98-107); Globulin 2.9 g/dL (1.3-4.6); Glomerular Filtration Rate 3.5 mL/min (90-130); Glucose 91 mg/dL (65-115); Magnesium 2.3 mg/dL (1.7-2.3); Osmolality Calculated 273 mOsm/kg (285-295); Potassium 3.7 mmol/L (3.5-5.1); Sodium 132 mmol/L (136-145); Total Bilirubin 0.2 mg/dL (0.15-1.2); Total Protein 6.1 g/dL (6.6-8.7)
[2019-11-29 06:49] LABS: Phosphorus 7.9 mg/dL (2.5-4.5)
[2019-11-29 07:42] VITALS: BP 108/64; PULSE 86; RESP 22; TEMP 36.7; O2SAT 98
--- NOTE | 2019-11-29 09:03 | PM.PN ---
Subjective Subjective: Interval history: feels well. wants to go home. Medications: Reviewed: Yes Medication Review Details: Current Medications Alfuzosin HCl (Uroxatral) 10 mg PO DAILY [facility] Last Admin: 11/28/19 08:33 Dose: 10 mg Documented by: Allopurinol (Zyloprim) 100 mg PO DAILY [facility] Last Admin: 11/28/19 08:34 Dose: 100 mg Documented by: Atorvastatin Calcium (Lipitor) 20 mg PO DAILY [facility] Last Admin: 11/28/19 08:33 Dose: 20 mg Documented by: Clonidine HCl (Catapres-Tts 3) 1 patch TRANSDERMA Q7D [facility] Last Admin: 11/27/19 09:34 Dose: 1 patch Documented by: Escitalopram Oxalate (Lexapro) 20 mg PO DAILY [facility] Last Admin: 11/28/19 08:33 Dose: 20 mg Documented by: Heparin Sodium (Beef Lung) (Heparin) 5,000 unit SUBCUT Q12H [facility] Last Admin: 11/29/19 01:15 Dose: 5,000 unit Documented by: Hydralazine HCl (Apresoline) 10 mg PO TID [facility] Last Admin: 11/28/19 23:31 Dose: 10 mg Documented by: Ceftriaxone Sodium 1,000 mg/ (Sodium Chloride) 50 mls @ 100 mls/hr IV DAILY [facility]; Protocol Last Admin: 11/28/19 04:46 Dose: 100 mls/hr Documented by: Acetaminophen (Ofirmev) 1,000 mg in 100 mls @ 400 mls/hr IV Q8H PRN PRN Reason: PAIN Nifedipine (Procardia Xl) 90 mg PO DAILY [facility] Last Admin: 11/28/19 08:22 Dose: Not Given Documented by: Peritoneal Dialysis Solution (Dianeal Low Ca W/2.5% Dex) 2,000 ml INTRAPERIT 5XD [facility] Last Admin: 11/28/19 23:25 Dose: 2,000 ml Documented by: Sevelamer Carbonate (Renvela) 2,400 mg PO TID [facility] Last Admin: 11/28/19 23:31 Dose: 2,400 mg Documented by: Vancomycin HCl (Vancocin) 125 mg PO QID [facility] Last Admin: 11/28/19 23:31 Dose: 125 mg Documented by: Vitals/I&O/Wt Last Vital Signs Temp 98.1 F 11/29/19 07:42 Pulse 86 11/29/19 07:42 Resp 22 H 11/29/19 07:42 BP 108/64 11/29/19 07:42 Pulse Ox 98 11/29/19 07:42 11/28/19 11/29/19 11/29/19 22:59 06:59 14:59 Intake Total 490 / 1190 400 / 1590 240 / 240 Balance 490 / 890 400 / 1290 240 / 240 Weight last 48 hrs Weight 81.057 kg Weight 81.057 kg Weight 81.057 kg Weight 81.057 kg Physical Exam Narrative: EXAM NARRATIVE: VSS, NARD in bed- comfortable, sitting up and eating heent- nc/at, eomi, anicteric neck no jvp, no bruits lungs cta b/l heart reg no rub abd soft, nt. nd, +BS, + tenkoff catheter ext no edema neuro- a,a, o x 3 Data : 11/29/19 05:18 11/29/19 05:18 Micro: Microbiology 11/27/19 19:50 Blood Culture - Preliminary Blood NEGATIVE TO DATE 11/27/19 19:50 Blood Culture - Preliminary Blood NEGATIVE TO DATE 11/27/19 13:05 Stool Lactoferrin - Final Stool Enteric Pathogens (PCR) - Final Parasite Antigen Panel - Final C.difficile Toxin B Gene (PCR) - Final Occult Blood (FIT) - Final 11/27/19 01:56 Urine Culture - Preliminary Urine,Clean Catch Gram Negative Rods 11/27/19 15:10 Gram Stain - Final Peritoneal Fluid Body Fluid Culture - Preliminary 11/27/19 12:30 MRSA Culture - Final Nose A&P Additional A&P Information 54 yr old man 1. ESRD- cont CAPD w/ 4 exchanges a day of 2.5% gluc 2. hypokalemia -improved 3. Likely UTI- u/a bloody, alkalotic, 3+ prot, pos nitirite,2+ LE, too numerous to counts RBC and WBC, bact 2+ abx per hospitalist 4. anemia of ESRD - hgb stable -high ferritin. cont epo- can get as outpt 5. Bone- mineral- metabolism of ESRD- needs phos binder-and a better diet -limit mag - pth okay- no calcitriol till phos is under 7 limit c 6. htn-BP well controlled- i am concerned that he is not compliant w/ meds at home. 7. mildly elevated tsh of 5.8- per hospitalist - recheck in a few weeks meds reviewed discussed w// pt and RN Attestations Medical Necessity Statement*: per hospitalist Time Spent in Patient Care: 16 - 35 minutes Coding Level of Care Code Acute Military Education Coordinator for Eric Sandhu
[2019-11-29] MEDS: NIFEdipine ER (24 hr) 30 mg Tablet 90 MG PO (09:28)
[2019-11-29] MEDS: alfuzosin 10 mg ER Tablet PO (09:28)
[2019-11-29] MEDS: Dianeal low Ca w/2.5% dex 2,000 mL Bag 2000 ML INTRAPERIT ×3 (09:28→22:08)
[2019-11-29] MEDS: sevelamer 800 mg Tablet 2400 MG PO ×3 (09:29→21:33)
[2019-11-29] MEDS: escitalopram 10 mg Tablet 20 MG PO (09:29)
[2019-11-29] MEDS: atorvastatin 40 mg Tablet 20 MG PO (09:29)
[2019-11-29] MEDS: cefTRIAXone 1,000 MG in sodium chloride 0.9% (plus) 50 ML 100 MG IV (09:29)
[2019-11-29] MEDS: allopurinol 100 mg Tablet PO (09:29)
[2019-11-29 11:19] VITALS: BP 160/91; PULSE 78; RESP 18; TEMP 36.5; O2SAT 97
--- NOTE | 2019-11-29 14:45 | PM.PN ---
Subjective Subjective: Interval history: No acute events overnight. Denies any nausea, vomiting, headache, abdominal pain. Patient has not had any further diarrhea. He states and is asking if he can go home today. Vitals/I&O/Wt Last Vital Signs Temp 97.7 F 11/29/19 11:19 Pulse 78 11/29/19 11:19 Resp 18 11/29/19 11:19 BP 160/91 11/29/19 11:19 Pulse Ox 97 11/29/19 11:19 11/28/19 11/29/19 11/29/19 22:59 06:59 14:59 Intake Total 490 / 1190 400 / 1590 480 / 480 Balance 490 / 890 400 / 1290 480 / 480 Weight last 48 hrs Weight 81.057 kg Weight 81.057 kg Weight 81.057 kg Physical Exam Narrative: EXAM NARRATIVE: General: No acute distress, AO x3, cachectic, dehydrated, pale HEENT: PERRLA, pupils bilaterally equal and reactive Chest: Normal vesicular breath sounds, no added sounds, equal good air entry bilaterally CVS: S1-S2 regular, no murmurs, no tachycardia, no gallops, no rubs Abdomen: Soft, generalized tenderness, no organomegaly, bowel sounds present Neuro: No focal deficits, no facial deformity, AO x3, power 5/5 in all limbs Data : 11/29/19 05:18 11/29/19 05:18 Micro: Microbiology 11/27/19 15:10 Gram Stain - Final Peritoneal Fluid Body Fluid Culture - Preliminary 11/27/19 19:50 Blood Culture - Preliminary Blood NEGATIVE TO DATE 11/27/19 19:50 Blood Culture - Preliminary Blood NEGATIVE TO DATE 11/27/19 13:05 Stool Lactoferrin - Final Stool Enteric Pathogens (PCR) - Final Parasite Antigen Panel - Final C.difficile Toxin B Gene (PCR) - Final Occult Blood (FIT) - Final 11/27/19 01:56 Urine Culture - Preliminary Urine,Clean Catch Gram Negative Rods 11/27/19 12:30 MRSA Culture - Final Nose A&P Assessment and plan (1) Acute UTI: Status: Acute (2) Acute uremia: Status: Acute (3) Chronic kidney failure: Status: Acute Qualifiers: Chronic kidney disease stage: stage 5 Qualified Code(s): N18.5 - Chronic kidney disease, stage 5 (4) Chronic anemia: Status: Acute (5) Peritoneal dialysis catheter in situ: Status: Acute (6) Polycystic kidney disease: Status: Acute Additional A&P Information Acute UTI/pyelonephritis: No signs of sepsis at present. Patient has mild leukocytosis, blood pressure has been within normal limits, afebrile. Negative for signs of infection. Results of procalcitonin, TSH appreciated. Continue ceftriaxone for now. Will reassess antibiotics as per the culture blood culture and urine culture results. COVID-19 has been ruled out. Off isolation precautions. CT abdomen results appreciated. Consistent with extremely large bilateral polycystic kidney with numerous large cysts some edema hemorrhagic. Bladder wall thickening with bilateral unchanged severe hydroureter and hydronephrosis. Case discussed with Dr. Dougherty yesterday. Patient does have signs of obstructive uropathy because hydroureter and hydronephrosis is new. Patient as per Dr. Dougherty can follow-up with him as an outpatient for further work-up. C. difficile colitis: Continue with vancomycin 125 mg 4 times daily. Patient would most likely need 14 days of antibiotic course. Patient is not having any more diarrhea. Isolation precaution. Generalized weakness: Multifactorial because of acute UTI and uremia with BUN of 83. Patient's received 4 is normal. We will start him on levothyroxine 25 mcg daily. His free T3 is on the low side. We will advise him to check TSH as an outpatient in 6 months. ESRD on peritoneal dialysis: Nephrology consult appreciated. Medical reconciliation done. Continue with Renvela. Anemia: Most likely because of iron deficiency anemia of anemia of chronic disease. Current plan appreciated. Consistent with anemia of chronic disease. We will hold off on oral iron supplementation. Hypertension: Blood pressures better. Continue with clonidine 0.3 mg patch once every 7 days, hydralazine 10 mg p.o. 3 times daily and nifedipine. Full code DVT prophylaxis: Heparin 5000 every 12 hourly. We will continue to monitor hemoglobin. Renal diet Dispo: Patient will most likely require home health given extreme deconditioning along with multiple comorbidities. Patient denied SNF placement. Attestations Medical Necessity Statement*: UTI, weakness, C. difficile colitis Time Spent in Patient Care: Greater than 35 minutes (>than 50% of time spent in counselling and/or direct pt care on unit). Coding Level of Care Code Acute Wastewater Engineer for [facility] Fwd Diagnoses Acute UTI N39.0 Acute uremia N19 Chronic kidney failure N18.5 Chronic kidney disease stage: stage 5 Chronic anemia D64.9 Peritoneal dialysis catheter in situ Z99.2 Polycystic kidney disease Q61.3
[2019-11-29 14:57] VITALS: BP 148/64; PULSE 68; RESP 18; TEMP 36.3; O2SAT 96
[2019-11-29 15:29] VITALS: RESP 18; TEMP 36.3
[2019-11-29 20:48] VITALS: BP 124/69; PULSE 77; RESP 16; TEMP 36.7; O2SAT 96
[2019-11-30 00:24] VITALS: BP 132/80; PULSE 71; RESP 20; TEMP 36.7; O2SAT 95
[2019-11-30] MEDS: heparin 5,000 unit/mL INJ 1 mL 5000 UNIT SUBCUT ×2 (03:03→13:57)
[2019-11-30 04:20] VITALS: BP 155/87; PULSE 71; RESP 20; TEMP 36.6; O2SAT 95
[2019-11-30] MEDS: Dianeal low Ca w/2.5% dex 2,000 mL Bag 2000 ML INTRAPERIT ×2 (05:13→11:43)
[2019-11-30 05:26] LABS: Basophils % 0.1 %; Eosinophils # 0.1 10^3/uL (0.0-0.8); Eosinophils % 0.6 %; Hematocrit 31.8 % (42.0-52.0); Hemoglobin 10.4 g/dL (11.7-16.6); Lymphocytes # 1.4 10^3/uL (0.8-4.8); Lymphocytes % 17.1 %; Mean Corpuscular HGB Conc 32.7 g/dL (30.0-36.0); Mean Corpuscular Hemoglobin 29.4 pg (28.0-34.0); Mean Corpuscular Volume 89.8 fL (80-94); Mean Platelet Volume 10.8 fL (7.4-10.4); Monocytes # 0.7 10^3/uL (0.2-0.9); Monocytes % 8.5 %; Neutrophils # 5.98 10^3/uL (1.8-7.7); Neutrophils % 73.3 %; Nucleated Red Blood Cells % 0 %; Platelet Count 214 10^3/cmm (130-400); Red Blood Count 3.54 10^6/uL (4.1-5.3); Red Cell Distribution Width 13.4 % (12.1-15.1); White Blood Count 8.2 10^3/uL (4.0-10.0)
[2019-11-30 05:31] LABS: Alanine Aminotransferase 10 U/L (0-41); Albumin Level 3.2 g/dL (3.5-5.2); Alkaline Phosphatase 57 IU/L (40-130); Anion Gap 17.8 (5-19); Aspartate Amino Transferase 9 U/L (0-40); Blood Urea Nitrogen 75 mg/dL (6-20); Carbon Dioxide 28 mmol/L (22-29); Chloride 91 mmol/L (98-107); Globulin 3.1 g/dL (1.3-4.6); Glomerular Filtration Rate 3.6 mL/min (90-130); Glucose 90 mg/dL (65-115); Magnesium 2.4 mg/dL (1.7-2.3); Osmolality Calculated 275 mOsm/kg (285-295); Potassium 3.8 mmol/L (3.5-5.1); Sodium 133 mmol/L (136-145); Total Bilirubin 0.3 mg/dL (0.15-1.2); Total Protein 6.3 g/dL (6.6-8.7)
[2019-11-30 05:33] LABS: Phosphorus 7.7 mg/dL (2.5-4.5)
[2019-11-30 08:13] VITALS: BP 166/92; PULSE 79; RESP 16; TEMP 36.3; O2SAT 97
--- NOTE | 2019-11-30 09:00 | PC.SOCIAL ---
IMM Page 2 of IMM explained to patient. Initialed, dated, and timed and placed in chart. Copy provided to patient.
[2019-11-30] MEDS: atorvastatin 40 mg Tablet 20 MG PO (09:34)
[2019-11-30] MEDS: cefTRIAXone 1,000 MG in sodium chloride 0.9% (plus) 50 ML 100 MG IV (09:34)
[2019-11-30] MEDS: escitalopram 10 mg Tablet 20 MG PO (09:35)
[2019-11-30] MEDS: levothyroxine 25 mcg Tablet PO (09:35)
[2019-11-30] MEDS: sevelamer 800 mg Tablet 2400 MG PO ×2 (09:35→13:58)
[2019-11-30] MEDS: allopurinol 100 mg Tablet PO (09:35)
[2019-11-30] MEDS: NIFEdipine ER (24 hr) 30 mg Tablet 90 MG PO (09:35)
[2019-11-30] MEDS: alfuzosin 10 mg ER Tablet PO (09:43)
--- NOTE | 2019-11-30 09:48 | PC.CHAP ---
Pastoral Care Encounter/Spiritual Assessment Type of Contact [] Declined professor of management visit [] Patient/Family/Request visit [] Outpatient visit [] Follow-up visit [] Physician referral [] Code/Alert [] Routine visit [] Staff referral [] Actively dying [x] Patient sleeping [] Family support [] [] Out of room [] Palliative care [] [] Receiving care in room [] Pre-surgical visit [] Trauma [] Long length of stay [] ICU visit [] Other: Relational/Emotional Strength [] Patient feels connected with others/family/visitors/staff [] Distress [] Loneliness/isolation [] Abandonment Spirituality of Patient [] Person of Nora [] Attends Holiness of their Nora [] Believes in Prayer [] Reads Bible or Congregational materials [] There are Spiritual issues to be addressed Funeral Director And Embalmer Interventions [] Prayer [] Active listening [] Non-anxious presence [] Spiritual/emotional support [] Crisis/trauma care [] Spiritual counseling [] Bereavement support [] Provided bereavement packet [] Provided Bible/devotional materials [] Provided toy/stuffed animal, coloring book to patient or family member [] Provided Communion [] Anointing/[place] [] Salvation [] Completed spiritual assessment [] Other: Impact on Illness or Injury [] Angry [] Fearful [] Anxious [] Often cries [] Exhaustion [] Unable to work [] Unable to attend tenriism [] Unable to walk/stand [] Unable to read [] Unable to drive [] Unable to eat/drink [] Unable to sleep [] Unable to be with family [] Patient intubated [] Other: Summary Time spent with patient
--- NOTE | 2019-11-30 11:31 | P.PN_ITS ---
Subjective Subjective: Interval history: feels well. no complaints . wants to go home. Medications: Reviewed: Yes Medication Review Details: Current Medications Alfuzosin HCl (Uroxatral) 10 mg PO DAILY [facility] Last Admin: 11/30/19 09:43 Dose: 10 mg Documented by: Allopurinol (Zyloprim) 100 mg PO DAILY [facility] Last Admin: 11/30/19 09:35 Dose: 100 mg Documented by: Atorvastatin Calcium (Lipitor) 20 mg PO DAILY [facility] Last Admin: 11/30/19 09:34 Dose: 20 mg Documented by: Clonidine HCl (Catapres-Tts 3) 1 patch TRANSDERMA Q7D [facility] Last Admin: 11/27/19 09:34 Dose: 1 patch Documented by: Escitalopram Oxalate (Lexapro) 20 mg PO DAILY [facility] Last Admin: 11/30/19 09:35 Dose: 20 mg Documented by: Heparin Sodium (Beef Lung) (Heparin) 5,000 unit SUBCUT Q12H [facility] Last Admin: 11/30/19 03:03 Dose: 5,000 unit Documented by: Ceftriaxone Sodium 1,000 mg/ (Sodium Chloride) 50 mls @ 100 mls/hr IV DAILY [facility]; Protocol Last Admin: 11/30/19 09:34 Dose: 100 mls/hr Documented by: Acetaminophen (Ofirmev) 1,000 mg in 100 mls @ 400 mls/hr IV Q8H PRN PRN Reason: PAIN Levothyroxine Sodium (Synthroid) 25 mcg PO DAILY [facility] Last Admin: 11/30/19 09:35 Dose: 25 mcg Documented by: Nifedipine (Procardia Xl) 90 mg PO DAILY [facility] Last Admin: 11/30/19 09:35 Dose: 90 mg Documented by: Peritoneal Dialysis Solution (Dianeal Low Ca W/2.5% Dex) 2,000 ml INTRAPERIT Q6H [facility] Last Admin: 11/30/19 05:13 Dose: 2,000 ml Documented by: Sevelamer Carbonate (Renvela) 2,400 mg PO TID [facility] Last Admin: 11/30/19 09:35 Dose: 2,400 mg Documented by: Vancomycin HCl (Vancocin) 125 mg PO QID [facility] Last Admin: 11/30/19 09:34 Dose: 125 mg Documented by: Vitals/I&O/Wt Last Vital Signs Temp 97.4 F L 11/30/19 08:13 Pulse 79 07/09/20 08:13 Resp 16 11/30/19 08:13 BP 166/92 11/30/19 08:13 Pulse Ox 97 11/30/19 08:13 11/29/19 11/30/19 11/30/19 22:59 06:59 14:59 Intake Total 480 / 1010 480 / 480 Balance 480 / 1010 480 / 480 Physical Exam Narrative: EXAM NARRATIVE: VSS, NARD in bed- comfortable, sitting up and eating heent- nc/at, eomi, anicteric neck no jvp, no bruits lungs cta b/l heart reg no rub abd soft, nt. nd, +BS, + tenkoff catheter ext no edema neuro- a,a, o x 3 Data : 11/30/19 04:40 11/30/19 04:40 Micro: Microbiology 11/27/19 01:56 Urine Culture - Preliminary Urine,Clean Catch Gram Negative Rods 11/27/19 15:10 Gram Stain - Final Peritoneal Fluid Body Fluid Culture - Preliminary A&P Additional A&P Information 54 yr old man 1. ESRD- cont CAPD w/ 5 exchanges a day of 2.5% gluc 2. UTI- u/a bloody, alkalotic, 3+ prot, pos nitirite,2+ LE, too numerous to counts RBC and WBC, bact 2+ abx per hospitalist -agree w/ Polycystic kidney and hydroureter- appears chronic- also bladder wall thickening- agree w/ urology eval as per Dr. Dougherty as outpt once c. diff clears 3. c diff colitis improving on oral vancomycin 4. anemia of ESRD - hgb stable -high ferritin. no indication for epo as long as hgb >10- may need as outpt 5. Bone- mineral- metabolism of ESRD- needs phos binder-and a better diet -limit mag - pth 246- no calcitriol till phos is under 7 limit c 6. htn-BP well controlled- i am concerned that he is not compliant w/ meds at home. 7. mildly elevated tsh of 5.8- per hospitalist - recheck in a few weeks meds reviewed discussed w// pt and RN Attestations Medical Necessity Statement*: PD pt. uti as per hospitalist, abnormal CT scan- hydroureter and hydronephrosis, bladder thicjkeneing needs urology f/u Time Spent in Patient Care: 16 - 35 minutes Coding Level of Care Code Acute Strap Setter for Eric Sandhu
[2019-11-30 11:36] VITALS: BP 162/91; PULSE 72; RESP 18; TEMP 36.6; O2SAT 98
--- NOTE | 2019-11-30 14:28 | PM.DCS ---
Discharge Providers Date of Admission: 11/27/19 12:24 Date of Discharge: November 30, 2019 Attending Provider at Admission: Deborah Singh MD Attending Provider at Discharge: Mari Rodriguez MD Diagnoses at Discharge Discharge Diagnosis (1) Acute UTI: Status: Acute (2) Acute uremia: Status: Acute (3) Chronic kidney failure: Status: Acute Qualifiers: Chronic kidney disease stage: stage 5 Qualified Code(s): N18.5 - Chronic kidney disease, stage 5 (4) Chronic anemia: Status: Acute (5) Peritoneal dialysis catheter in situ: Status: Acute (6) Polycystic kidney disease: Status: Acute Reason for Visit Reason for Visit: POSSIBLE LOW HEMOGLOBIN Hospital Course Discharge Summary: Navneet Savage is a 54 year old male who is a patient of Dr. Candelaria for end-stage renal disease, peritoneal dialysis dependent, came in for generalized weakness. Diagnostics in the ER revealed chronic anemia, mild leukocytosis, hypokalemia, uremia abnormal urinalysis with positive nitrates with pyuria positive leukocyte esterase however he has been afebrile in the hospital, systolic blood pressure ranging between 1 50-1 60. He was treated with iv ceftriaxone empirically for pyelonephritis during course of admission with clinical improvement. Urine cx is showing GNR, waiting to be identified since 11/27/19. He is being discharged with levofloxacin empirically. COVID-19 has been ruled out. He was also having diarrhea and found to be C diff PCR+ for which he is on 14 day course of po vancomycin. Diarrhea is currently resolved. He feels well and is eager to be discharged home. He will follow up with Dr. Dougherty as an outpatient. Physical Exam Narrative: EXAM NARRATIVE: GEN: Awake, alert and oriented, no acute distress CVS: S1S2 N RS: CTA B/L Abd: Soft, nt/nd , bs+ , PD catheter in place LICENSED OCCUPATIONAL THERAPIST: no focal neuro deficits Discharge Data Data Completed and Pending: Completed Studies During Hospitalization Category Date Time Status CT kidney stone [id number] Stat Cat Scan 11/27/19 03:35 Completed Pending at discharge Category Date Time Status Blood Culture Sta t Lab 11/27/19 19:50 Results Lactate Dehydroge nase Routine Lab 11/30/19 04:40 Received Miscellaneous Tami t Routine Lab 11/30/19 13:58 Ordered Uric Acid Routine Lab 11/30/19 13:58 Ordered Urine Culture Sta t Lab 11/27/19 01:56 Results Labs from last 24 hours 11/30/19 11/30/19 04:40 04:40 WBC 8.2 RBC 3.54 L Hgb 10.4 L Hct 31.8 L MCV 89.8 MCH 29.4 MCHC 32.7 RDW 13.4 Plt Count 214 MPV 10.8 H Neut % (Auto) 73.3 Lymph % (Auto) 17.1 Davidson % (Auto) 8.5 Eos % (Auto) 0.6 Baso % (Auto) 0.1 Neut # (Auto) 5.98 Lymph # (Auto) 1.4 Davidson # (Auto) 0.7 Eos # (Auto) 0.1 Baso # (Auto) 0.0 Nucleated RBC % (a uto) 0 Nucleated RBCs # 0.0 Sodium 133 L Potassium 3.8 Chloride 91 L Carbon Dioxide 28 Anion Gap 17.8 BUN 75 H Creatinine 14.2 H* GFR Calculation 3.6 L Glucose 90 Calculated Osmolal ity 275 L Calcium 10.0 Phosphorus 7.7 H* Magnesium 2.4 H Total Bilirubin 0.3 AST 9 ALT 10 Alkaline Phosphata se 57 Total Protein 6.3 L Albumin 3.2 L Globulin 3.1 Vitals: Last Vital Signs Temp 97.9 F 11/30/19 11:36 Pulse 72 11/30/19 11:36 Resp 18 11/30/19 11:36 BP 162/91 11/30/19 11:36 Pulse Ox 98 11/30/19 11:36 Discharge Plan Discharge Patient Disposition: Home Health Service Condition: Stable Prescriptions: New levothyroxine 25 mcg Tablet 25 mcg PO DAILY Qty: 30 RF: 0 sevelamer carbonate 800 mg Tablet 2,400 mg PO TID 30 Days Qty: 270 RF: 0 vancomycin 1,000 mg Recon Soln 125 mg PO QID 12 Days Qty: 48 RF: 0 levofloxacin 500 mg tablet 500 mg PO Q48H 10 Days Qty: 5 RF: 0 Continued aspirin 325 mg Tablet 325 mg PO DAILY RF: 0 nifedipine 90 mg Tablet Extended Release 24hr 90 mg PO DAILY RF: 0 alfuzosin 10 mg Tablet Extended Release 24 Hr 10 mg PO DAILY RF: 0 RenaPlex-D 800 mcg-12.5 mg -2,000 unit Tablet 1 tab PO DAILY RF: 0 allopurinol 100 mg Tablet 100 mg PO DAILY RF: 0 sodium bicarbonate 650 mg Tablet 650 mg PO DAILY RF: 0 escitalopram oxalate 20 mg Tablet 20 mg PO DAILY RF: 0 clopidogrel 75 mg Tablet 75 mg PO DAILY RF: 0 simvastatin 40 mg Tablet 40 mg PO DAILY RF: 0 clonidine 0.3 mg/24 hr Patch Weekly 1 patch transdermal RF: 0 Discharge Orders: Discharge Order (Routine); Ordered 11/30/19 Ordered By: Mari Rodriguez Referrals: [facility] [Outside] Leopoldo Dougherty MD [Physician] - 7-10 days Discharge Diet: Usual diet and Low Salt Discharge Activity: Resume usual activity Discharge Attestations Time Spent in Discharge Care*: less than 30 min Quality Metrics Clinical Quality Measures During this hospital stay, did patient experience: None Coding Level of Care Code Acute Websphere Portal Developer for Efreng Fwd Diagnoses Acute UTI N39.0 Acute uremia N19 Chronic kidney failure N18.5 Chronic kidney disease stage: stage 5 Chronic anemia D64.9 Peritoneal dialysis catheter in situ Z99.2 Polycystic kidney disease Q61.3
[2019-11-30 14:37] LABS: Lactate Dehydrogenase 160 U/L (135-225)
[2019-11-30 15:13] VITALS: BP 162/91; PULSE 72; RESP 18; TEMP 36.6; O2SAT 98
[2019-12-01 11:21] LABS: Uric Acid 5.4 mg/dL (3.4-7.0)
== END 2019-11-30 13:30 | disposition home health service (06) | DRG 689 ==
LOC: ER 04:12 → ICU 05:26 → MEDSURG 11-28 20:46
PROVIDERS: Internal Medicine Nephrology; Student in an Organized Health Care Education/Training Program; Admitting Provider Internal Medicine; Emergency Provider Emergency Medicine; Visit Provider Student in an Organized Health Care Education/Training Program
DX: N39.0 Urinary tract infection, site not specified (principal); N18.6 End stage renal disease; I12.0 Hypertensive chronic kidney disease with stage 5 chronic kidney disease or end stage renal disease; Q61.3 Polycystic kidney, unspecified; D63.1 Anemia in chronic kidney disease; Z99.2 Dependence on renal dialysis; Z11.59 Encounter for screening for other viral diseases; R19.7 Diarrhea, unspecified; Z79.82 Long term (current) use of aspirin; Z79.02 Long term (current) use of antithrombotics/antiplatelets; Z86.73 Personal history of transient ischemic attack (TIA), and cerebral infarction without residual deficits; F17.210 Nicotine dependence, cigarettes, uncomplicated
CPT/HCPCS: 12345; 36415; 51798; 74176; 80053; 80306; 80500; 81001; 81003; 82042; 82150; 82274; 82310; 82550; 82728; 83540; 83550; 83605; 83615; 83630; 83735; 83970; 83986; 84100; 84145; 84439; 84443; 84481; 84550; 85025; 85610; 85730; 86850; 86900; 87040; 87070; 87075; 87077; 87086; 87186; 87205; 87493; 87506; 87635; 87641; 89050; 90935; 96372; 99282; G0378; J0696; J1644; J3370; Q3014

== ENCOUNTER 2020-02-07 18:01 | Emergency (ER) | payer MEDICARE, MEDICAID, SELFPAY ==
[2020-02-07 18:15] VITALS: BP 188/108; PULSE 79; RESP 18; TEMP 36.8; O2SAT 98; BMI 31.9
--- NOTE | 2020-02-07 18:38 | ED_ITS ---
HPI - General Adult General: Chief complaint: General Medical Stated complaint: HIGH BP Time Seen by Provider: 02/07/20 18:19 Source: patient Mode of arrival: ambulatory Limitations: no limitations History of Present Illness: HPI narrative: 84-year-old male with a history of end-stage renal disease who is on peritoneal dialysis daily. Patient states that over the last 3 days he has had increased blood pressure. Patient seen at [facility] last night and states they did not do anything. He denies any headache currently or chest pain. Patient states his blood pressure yesterday is in 200s today is 179/104. Associated symptoms: Deny chest pain, dyspnea, headache(s), nausea, rash or vomiting Review of Systems Const: Denies: fever(s), chills, body aches or change in appetite Eyes: Denies: blurry vision or eye discomfort ENMT: Denies: throat pain or dental pain Card: Denies: chest pain Resp: Denies: dyspnea GI: Denies: abdominal pain, nausea, vomiting or diarrhea : Denies: dysuria Musc: Denies: neck pain or back pain Skin/Breast: Denies: rash Neuro: Denies: headache(s) Psych: Denies: depression Lucas/Lymph: Denies: easy bruising All/Imm: Denies: urticaria PFSH ED PFSH: Medical History Bilateral hydronephrosis Bradycardia CVA (cerebral vascular accident) Dependence on peritoneal dialysis Hypertension Incomplete bladder emptying Nicotine dependence Peritoneal dialysis catheter in situ Polycystic kidney disease Surgical History History of surgical procedure Peritoneal dialysis catheter placement by Dr. Kamara 2015 Family History Other Chronic kidney disease (CKD) Hypertension Social History Smoking and tobacco status: heavy tobacco smoker cigarettes [ Other cigarette details: Half a pack per day for last 20-30 years ] Alcohol intake: never Household members: family Housing: House Physical Exam Const: COMMON NORMALS: no acute distress, patient oriented x3 and healthy appearing HENMT: COMMON NORMALS: normocephalic and atraumatic HEAD & SCALP: normocephalic and atraumatic Eye: COMMON NORMALS: Equal, round and reactive pupils present and EOMs intact bilaterally PUPIL: Yes Equal, round and reactive pupils present Neck/C-Spine: COMMON NORMALS: full ROM and supple Chest: COMMONS NORMALS: normal inspection of the chest and normal palpation of entire chest wall Resp: COMMON NORMALS: normal respiratory effort, No retractions, No use of accessory muscles and clear to auscultation bilaterally AUSCULTATION: clear to auscultation bilaterally Cardio: COMMON NORMALS: regular rate, regular rhythm and No murmurs present (Cardio) RATE: regular rate RHYTHM: regular rhythm GI: COMMON NORMALS: Normal to inspection, nondistended, normoactive bowel sounds present, Soft to palpation, non-tender and no masses PALPATION: Yes Soft to palpation Extremity: COMMON NORMALS: normal to inspection and full ROM Neuro: COMMON NORMALS: patient oriented x3, moves all extremities and no focal motor deficits Psych: COMMON NORMALS: mental status grossly normal, Normal thought process present and cooperative THOUGHT PROCESS: Normal thought process present Skin: COMMON NORMALS: no rashes or lesions noted and no wounds GENERAL SKIN EXAM: no rashes or lesions noted Course Vital Signs: Vital signs: Vital Signs Temperature 98.3 F 02/07/20 18:15 Pulse Rate 89 02/07/20 19:47 Respiratory Rate 18 02/07/20 19:47 Blood Pressure 159/89 02/07/20 19:47 Pulse Oximetry 97 02/07/20 19:47 [facility] - General Adult Lab Data: Labs: Lab Results 02/07/20 02/07/20 Range/Units 19:00 19:00 WBC 7.7 (4.0-10.0) 10^3/ uL RBC 2.75 L (4.1-5.3) 10^6/u L Hgb 8.4 L (11.7-16.6) g/dL Hct 26.7 L (42.0-52.0) % MCV 97.1 H (80-94) fL MCH 30.5 (28.0-34.0) pg MCHC 31.5 (30.0-36.0) g/dL RDW 15.0 (12.1-15.1) % Plt Count 260 (130-400) 10^3/c mm MPV 9.7 (7.4-10.4) fL Neut % (Auto) 81.4 % Lymph % (Auto) 10.2 % Starke % (Auto) 6.8 % Eos % (Auto) 0.9 % Baso % (Auto) 0.4 % Neut # (Auto) 6.30 (1.8-7.7) 10^3/u L Lymph # (Auto) 0.8 (0.8-4.8) 10^3/u L Starke # (Auto) 0.5 (0.2-0.9) 10^3/u L Eos # (Auto) 0.1 (0.0-0.8) 10^3/u L Baso # (Auto) 0.0 (0.0-0.1) 10^3/u L Nucleated RBC % (a uto) 0 % Nucleated RBCs # 0.0 /100WBC Sodium 134 L (136-145) mmol/L Potassium 5.7 H (3.5-5.1) mmol/L Chloride 98 (98-107) mmol/L Carbon Dioxide 19 L (22-29) mmol/L Anion Gap 22.7 H (5-19) BUN 85 H* (6-20) mg/dL Creatinine 15.7 H* (0.7-1.2) mg/dL GFR Calculation 3.2 L (90-130) mL/min Glucose 91 (65-115) mg/dL Calculated Osmolal ity 303 H (285-295) mOsm/k g Calcium 8.9 (8.5-10.5) mg/dL Total Bilirubin 0.2 (0.15-1.2) mg/dL AST 26 (0-40) U/L ALT 25 (0-41) U/L Alkaline Phosphata se 74 (40-130) IU/L Total Protein 5.4 L (6.6-8.7) g/dL Albumin 2.6 L (3.5-5.2) g/dL Globulin 2.8 (1.3-4.6) g/dL Discharge Plan Discharge Patient Disposition: Home Clinical Impression: Chronic kidney failure Qualifiers: Chronic kidney disease stage: unspecified stage Qualified Code(s): N18.9 - Chronic kidney disease, unspecified Hypertension Qualifiers: Hypertension type: essential hypertension Qualified Code(s): I10 - Essential ( primary) hypertension Condition: Stable Prescriptions: No Action aspirin 325 mg Tablet 325 mg PO DAILY RF: 0 nifedipine 90 mg Tablet Extended Release 24hr 90 mg PO DAILY RF: 0 alfuzosin 10 mg Tablet Extended Release 24 Hr 10 mg PO DAILY RF: 0 RenaPlex-D 800 mcg-12.5 mg -2,000 unit Tablet 1 tab PO DAILY RF: 0 allopurinol 100 mg Tablet 100 mg PO DAILY RF: 0 sodium bicarbonate 650 mg Tablet 650 mg PO DAILY RF: 0 escitalopram oxalate 20 mg Tablet 20 mg PO DAILY RF: 0 clopidogrel 75 mg Tablet 75 mg PO DAILY RF: 0 simvastatin 40 mg Tablet 40 mg PO DAILY RF: 0 clonidine 0.3 mg/24 hr Patch Weekly See Rx Instructions .ROUTE .COMPLEX RF: 0 levothyroxine 25 mcg Tablet 25 mcg PO DAILY Qty: 30 RF: 0 trazodone 50 mg tablet 50 mg PO BID RF: 0 pantoprazole 40 mg tablet,delayed release (DR/EC) 40 mg PO DAILY RF: 0 losartan 100 mg tablet 100 mg PO DAILY RF: 0 finasteride 5 mg tablet 5 mg PO DAILY RF: 0 lanthanum 1,000 mg tablet,chewable 2,000 mg PO TID RF: 0 Fosrenol 1,000 mg powder in packet See Rx Instructions .ROUTE .COMPLEX RF: 0 Discharge Orders: Discharge Order (Routine); Ordered 02/07/20 Ordered By: Ghada Fontanez Discharge Diet: Advance as tolerated Discharge Activity: Resume usual activity Patient Instructions: Hypertension (ED) Coding Level of Care Code ED Mail Machine Operator for Efren Fwd Exam Comprehensive
[2020-02-07] MEDS: hyDRALAzine 20 mg/mL INJ 1 mL 10 MG IVP (19:04)
[2020-02-07 19:23] LABS: Basophils % 0.4 %; Eosinophils # 0.1 10^3/uL (0.0-0.8); Eosinophils % 0.9 %; Hematocrit 26.7 % (42.0-52.0); Hemoglobin 8.4 g/dL (11.7-16.6); Lymphocytes # 0.8 10^3/uL (0.8-4.8); Lymphocytes % 10.2 %; Mean Corpuscular HGB Conc 31.5 g/dL (30.0-36.0); Mean Corpuscular Hemoglobin 30.5 pg (28.0-34.0); Mean Corpuscular Volume 97.1 fL (80-94); Mean Platelet Volume 9.7 fL (7.4-10.4); Monocytes # 0.5 10^3/uL (0.2-0.9); Monocytes % 6.8 %; Neutrophils % 81.4 %; Nucleated Red Blood Cells % 0 %; Platelet Count 260 10^3/cmm (130-400); Red Blood Count 2.75 10^6/uL (4.1-5.3); White Blood Count 7.7 10^3/uL (4.0-10.0)
[2020-02-07 19:43] LABS: Alanine Aminotransferase 25 U/L (0-41); Albumin Level 2.6 g/dL (3.5-5.2); Alkaline Phosphatase 74 IU/L (40-130); Anion Gap 22.7 (5-19); Aspartate Amino Transferase 26 U/L (0-40); Calcium 8.9 mg/dL (8.5-10.5); Carbon Dioxide 19 mmol/L (22-29); Chloride 98 mmol/L (98-107); Globulin 2.8 g/dL (1.3-4.6); Glomerular Filtration Rate 3.2 mL/min (90-130); Glucose 91 mg/dL (65-115); Osmolality Calculated 303 mOsm/kg (285-295); Potassium 5.7 mmol/L (3.5-5.1); Sodium 134 mmol/L (136-145); Total Bilirubin 0.2 mg/dL (0.15-1.2); Total Protein 5.4 g/dL (6.6-8.7)
[2020-02-07 19:47] VITALS: BP 159/89; PULSE 89; RESP 18; O2SAT 97
[2020-02-07 19:50] LABS: Blood Urea Nitrogen 85 mg/dL (6-20)
[2020-02-07 20:23] VITALS: BP 146/84; PULSE 93; RESP 21; O2SAT 97
== END 2020-02-07 20:24 | disposition home or self-care (01) ==
PROVIDERS: Emergency Provider Emergency Medicine
DX: I12.9 Hypertensive chronic kidney disease with stage 1 through stage 4 chronic kidney disease, or unspecified chronic kidney disease (principal); N18.9 Chronic kidney disease, unspecified; Z79.02 Long term (current) use of antithrombotics/antiplatelets; Z79.82 Long term (current) use of aspirin; Z86.73 Personal history of transient ischemic attack (TIA), and cerebral infarction without residual deficits; F17.210 Nicotine dependence, cigarettes, uncomplicated
CPT/HCPCS: 12345; 36415; 80053; 85025; 96374; 96375; 99282; 99283; J0360

== ENCOUNTER 2020-02-08 05:30 | Inpatient (IN) | payer MEDICARE, MEDICAID, SELFPAY ==
[2020-02-08] VITALS (130 sets, daily range): BP systolic 101–188; BP diastolic 55–114; PULSE 56–92; RESP 12–30; TEMP 34.8–37.1; O2SAT 91–100; BMI 29.9
--- NOTE | 2020-02-08 | SCC_ITS ---
Procedure Done: Placement of right internal jugular vein hemodialysis catheter tunneled. 16 Montenegr[place] 27 cm in length under fluoroscopic guidance and ultrasound as well. Interpretation through the whole entire procedure done by me 133.1 seconds of fluoroscopic guidance, for a cumulative dose of 23.00 mGy, was provided to Dr. Brito by the radiology department. C-arm images of the chest were saved for the patient's permanent record. CONNER
--- NOTE | 2020-02-08 05:32 | ECG_ITS ---
[facility] Test Date: 2020-02-08 Pat Name: Navneet Savage Department: Room: Gender: Male Pet Stylist: : 1965 Requested By: Ghada Fontanez Order Number: [id number] Nate MD: China Wheat M.D. Measurements Intervals [place] Rate: 85 P: 16 MD: 146 QRS: -27 QRSD: 106 T: 37 QT: 362 QTc: 431 Interpretive Statements SINUS RHYTHM MINIMAL VOLTAGE CRITERIA FOR LVH, CONSIDER NORMAL VARIANT [MEETS CRITERIA IN ONE OF: R(aVL), S(V1), R(V5), R(V5/V6)+S(V1)] SEPTAL MYOCARDIAL INFARCTION , OF INDETERMINATE AGE [40+ ms Q WAVE IN V1/V2] Compared to ECG 04/15/2016 13:26:36 Left axis deviation Myocardial infarct finding now present Sinus bradycardia no longer present Intraventricular conduction delay no longer present Electronically Signed On 02-08-2020 19:39:10 CDT by China Wheat M.D. [email or web address]
--- NOTE | 2020-02-08 05:35 | XRR_ITS ---
PROCEDURE INFORMATION: Exam: XR Chest, 1 View Exam date and time: 02/08/2020 5:51 AM Age: 54 years old Clinical indication: Cough and shortness of breath TECHNIQUE: Imaging protocol: XR of the chest Views: 1 view. COMPARISON: CR Chest 1 [place] [id number] 12/22/2015 1:15 AM FINDINGS: Lungs: There are low lung volumes. Streaky bibasilar opacities are suggestive of atelectasis. Pleural space: Unremarkable. No pleural effusion. No pneumothorax. Heart/Mediastinum: Unremarkable. No cardiomegaly. Bones/joints: Unremarkable. XR/XR chest 1V portable [id number] IMPRESSION: Low lung volumes and bibasilar atelectasis.
--- NOTE | 2020-02-08 05:35 | CTR_ITS ---
PROCEDURE INFORMATION: Exam: CT Head Without Contrast Exam date and time: 02/08/2020 5:36 AM Age: 54 years old Clinical indication: Pain; Headache not specified; Additional info: Paresthesia TECHNIQUE: Imaging protocol: Computed tomography of the head without contrast. Radiation optimization: All CT scans at this facility use at least one of these dose optimization techniques: automated exposure control; mA and/or kV adjustment per patient size (includes targeted exams where dose is matched to clinical indication); or iterative reconstruction. COMPARISON: CT head wo con* [id number] 12/20/2015 12:41 AM RADIATION DOSE METRICS: Total DLP (mGy-cm): 886.24 FINDINGS: Brain: There is no acute intracranial hemorrhage or mass effect. Mild diffuse volume loss is within the range of normal for patient age. There are small vessel ischemic changes within the periventricular and subcortical white matter, but the normal cardozo/white matter delineation is maintained. Ventricles: No ventriculomegaly. Bones/joints: Unremarkable. No acute fracture. Paranasal sinuses: Visualized sinuses are unremarkable. No fluid levels. Mastoid air cells: Visualized mastoid air cells are well aerated. Soft tissues: Unremarkable. CT/CT head wo con* [id number] IMPRESSION: No acute hemorrhage or edema. Radiation Dose CTDIVOL = (mGy): DLP = 886.24 (mGy-cm)
--- NOTE | 2020-02-08 05:36 | W.ED.GENADLT ---
Documented by User: Ghada Fontanez MD 02/08/20 05:47 HPI - General Adult General: Chief complaint: General Medical Stated complaint: not feeling well Time Seen by Provider: 02/08/20 05:38 Source: patient and EMS Mode of arrival: EMS Limitations: no limitations History of Present Illness: HPI narrative: 54-year-old male who presents here with EMS stating he does not feel well. Patient was seen last night in ER for hypertension. He has end-stage renal disease and is on peritoneal dialysis. He states he did 3 of his 4 dialysis treatments last night. He states he is having some paresthesias to his face and states he is just feeling generally weak. He states he has had a mild cough. He denies any fever. Denies any chest pain. Denies any worsening or improving factors. Associated symptoms: Deny chest pain, dyspnea, nausea, rash or vomiting Review of Systems Const: Denies: fever(s), chills, body aches or change in appetite Eyes: Denies: blurry vision or eye discomfort ENMT: Denies: throat pain or dental pain Card: Denies: chest pain Resp: Denies: dyspnea GI: Denies: abdominal pain, nausea, vomiting or diarrhea : Denies: dysuria Musc: Denies: neck pain or back pain Skin/Breast: Denies: rash Neuro: Reports: numbness in extremities and weakness in extremities Psych: Denies: depression Lucas/Lymph: Denies: easy bruising All/Imm: Denies: urticaria PFSH ED PFSH: Medical History (Updated 02/07/20 @ 19:59 by Ghada Fontanez MD) Bilateral hydronephrosis Bradycardia CVA (cerebral vascular accident) Dependence on peritoneal dialysis Hypertension Incomplete bladder emptying Nicotine dependence Peritoneal dialysis catheter in situ Polycystic kidney disease Surgical History History of surgical procedure Peritoneal dialysis catheter placement by Dr. Kamara 2015 Family History Other Chronic kidney disease (CKD) Hypertension Social History Smoking and tobacco status: heavy tobacco smoker cigarettes [ Other cigarette details: Half a pack per day for last 20-30 years ] Alcohol intake: never Household members: family Housing: House Physical Exam Const: COMMON NORMALS: no acute distress, patient oriented x3 and healthy appearing HENMT: COMMON NORMALS: normocephalic and atraumatic HEAD & SCALP: normocephalic and atraumatic Eye: COMMON NORMALS: Equal, round and reactive pupils present and EOMs intact bilaterally PUPIL: Yes Equal, round and reactive pupils present Neck/C-Spine: COMMON NORMALS: full ROM and supple Chest: COMMONS NORMALS: normal inspection of the chest and normal palpation of entire chest wall Resp: COMMON NORMALS: normal respiratory effort, No retractions, No use of accessory muscles and clear to auscultation bilaterally AUSCULTATION: clear to auscultation bilaterally Cardio: COMMON NORMALS: regular rate, regular rhythm and No murmurs present (Cardio) RATE: regular rate RHYTHM: regular rhythm GI: COMMON NORMALS: Normal to inspection, nondistended, normoactive bowel sounds present, Soft to palpation, non-tender and no masses PALPATION: Yes Soft to palpation Extremity: COMMON NORMALS: normal to inspection and full ROM Neuro: COMMON NORMALS: patient oriented x3, moves all extremities and no focal motor deficits Psych: COMMON NORMALS: mental status grossly normal, Normal thought process present and cooperative THOUGHT PROCESS: Normal thought process present Skin: COMMON NORMALS: no rashes or lesions noted and no wounds GENERAL SKIN EXAM: no rashes or lesions noted Course Vital Signs: Vital signs: Vital Signs Temperature 97.7 F 02/08/20 05:33 Pulse Rate 90 02/08/20 06:46 Respiratory Rate 18 02/08/20 06:46 Blood Pressure 155/82 02/08/20 06:46 Pulse Oximetry 96 02/08/20 06:46 MDM - General Adult MDM Narrative: Medical decision making narrative: Patient presents with generalized weakness has a history of end-stage renal disease and is on dialysis at home. We will recheck patient's electrolytes. EKG here is normal appearing with no signs of hyperkalemia on EKG. Patient's care is turned over to Dr. Mehta to follow labs. Lab Data: Labs: Lab Results 02/08/20 02/08/20 Range/Units 06:10 06:10 WBC 7.8 (4.0-10.0) 10^3/ uL RBC 2.86 L (4.1-5.3) 10^6/u L Hgb 8.8 L (11.7-16.6) g/dL Hct 27.8 L (42.0-52.0) % MCV 97.2 H (80-94) fL MCH 30.8 (28.0-34.0) pg MCHC 31.7 (30.0-36.0) g/dL RDW 15.0 (12.1-15.1) % Plt Count 271 (130-400) 10^3/c mm MPV 9.7 (7.4-10.4) fL Neut % (Auto) 78.8 % Lymph % (Auto) 12.6 % Sheridan % (Auto) 7.1 % Eos % (Auto) 0.9 % Baso % (Auto) 0.3 % Neut # (Auto) 6.11 (1.8-7.7) 10^3/u L Lymph # (Auto) 1.0 (0.8-4.8) 10^3/u L Sheridan # (Auto) 0.6 (0.2-0.9) 10^3/u L Eos # (Auto) 0.1 (0.0-0.8) 10^3/u L Baso # (Auto) 0.0 (0.0-0.1) 10^3/u L Nucleated RBC % (a uto) 0 % Nucleated RBCs # 0.0 /100WBC Sodium 134 L (136-145) mmol/L Potassium 5.8 H (3.5-5.1) mmol/L Chloride 100 (98-107) mmol/L Carbon Dioxide 19 L (22-29) mmol/L Anion Gap 20.8 H (5-19) BUN 89 H* (6-20) mg/dL Creatinine 17.2 H* (0.7-1.2) mg/dL GFR Calculation 2.9 L (90-130) mL/min Glucose 89 (65-115) mg/dL Calculated Osmolal ity 305 H (285-295) mOsm/k g Calcium 9.4 (8.5-10.5) mg/dL Total Bilirubin 0.3 (0.15-1.2) mg/dL AST 23 (0-40) U/L ALT 26 (0-41) U/L Alkaline Phosphata se 72 (40-130) IU/L Total Protein 5.7 L (6.6-8.7) g/dL Albumin 2.7 L (3.5-5.2) g/dL Globulin 3.0 (1.3-4.6) g/dL EKG Data^: EKG 1: Attestation: I personally reviewed and interpreted this EKG as follows: EKG interpretation date: 02/08/20 EKG interpretation time: 05:45 Interpretation: nsr hr [address] or t wave abnormalities qrs 106 qtc 404 Computer generated interpretation: Head CT 02/08/20 05:35 IMPRESSION: No acute hemorrhage or edema. Radiation Dose CTDIVOL = (mGy): DLP = 886.24 (mGy-cm) Discharge Plan Discharge Admit Provider: Diana Terrazas Coding Level of Care Code ED Miniature Set Designer for Chg Fwd Exam Comprehensive Documented by User: Fernanda Mehta MD 02/08/20 07:32 HPI - General Adult General: Chief complaint: General Medical Stated complaint: not feeling well Time Seen by Provider: 02/08/20 05:38 [facility] ED PFSH: Medical History (Updated 02/07/20 @ 19:59 by Ghada Fontanez MD) Bilateral hydronephrosis Bradycardia CVA (cerebral vascular accident) Dependence on peritoneal dialysis Hypertension Incomplete bladder emptying Nicotine dependence Peritoneal dialysis catheter in situ Polycystic kidney disease Surgical History History of surgical procedure Peritoneal dialysis catheter placement by Dr. Kamara 2015 Family History Other Chronic kidney disease (CKD) Hypertension Social History Smoking and tobacco status: heavy tobacco smoker cigarettes [ Other cigarette details: Half a pack per day for last 20-30 years ] Alcohol intake: never Household members: family Housing: House Course ED course: Assumed care of this patient at shift change from Dr. Fontanez. This is his third ER visit in about 36 hours. He has a very high BUN and creatinine in spite of saying that he has been compliant with his peritoneal dialysis. His potassium is also elevated. EKG did not show changes of hyperkalemia. He may need to be converted to hemodialysis if he is actually compliant with his PD. His general malaise may be related to the level of elevation of his BUN and creatinine. He also was admitted in November with a severe UTI. He is unable to provide a urine specimen in the ED at this time. This will need to be evaluated to make sure that is not a cause of his symptoms. Vital Signs: Vital signs: Vital Signs Temperature 97.7 F 02/08/20 05:33 Pulse Rate 90 02/08/20 06:46 Respiratory Rate 18 02/08/20 06:46 Blood Pressure 155/82 02/08/20 06:46 Pulse Oximetry 96 02/08/20 06:46 MDM - General Adult Lab Data: Labs: Lab Results 02/08/20 02/08/20 Range/Units 06:10 06:10 WBC 7.8 (4.0-10.0) 10^3/ uL RBC 2.86 L (4.1-5.3) 10^6/u L Hgb 8.8 L (11.7-16.6) g/dL Hct 27.8 L (42.0-52.0) % MCV 97.2 H (80-94) fL MCH 30.8 (28.0-34.0) pg MCHC 31.7 (30.0-36.0) g/dL RDW 15.0 (12.1-15.1) % Plt Count 271 (130-400) 10^3/c mm MPV 9.7 (7.4-10.4) fL Neut % (Auto) 78.8 % Lymph % (Auto) 12.6 % Sheridan % (Auto) 7.1 % Eos % (Auto) 0.9 % Baso % (Auto) 0.3 % Neut # (Auto) 6.11 (1.8-7.7) 10^3/u L Lymph # (Auto) 1.0 (0.8-4.8) 10^3/u L Sheridan # (Auto) 0.6 (0.2-0.9) 10^3/u L Eos # (Auto) 0.1 (0.0-0.8) 10^3/u L Baso # (Auto) 0.0 (0.0-0.1) 10^3/u L Nucleated RBC % (a uto) 0 % Nucleated RBCs # 0.0 /100WBC Sodium 134 L (136-145) mmol/L Potassium 5.8 H (3.5-5.1) mmol/L Chloride 100 (98-107) mmol/L Carbon Dioxide 19 L (22-29) mmol/L Anion Gap 20.8 H (5-19) BUN 89 H* (6-20) mg/dL Creatinine 17.2 H* (0.7-1.2) mg/dL GFR Calculation 2.9 L (90-130) mL/min Glucose 89 (65-115) mg/dL Calculated Osmolal ity 305 H (285-295) mOsm/k g Calcium 9.4 (8.5-10.5) mg/dL Total Bilirubin 0.3 (0.15-1.2) mg/dL AST 23 (0-40) U/L ALT 26 (0-41) U/L Alkaline Phosphata se 72 (40-130) IU/L Total Protein 5.7 L (6.6-8.7) g/dL Albumin 2.7 L (3.5-5.2) g/dL Globulin 3.0 (1.3-4.6) g/dL EKG Data^: EKG 1: Computer generated interpretation: Head CT 02/08/20 05:35 IMPRESSION: No acute hemorrhage or edema. Radiation Dose CTDIVOL = (mGy): DLP = 886.24 (mGy-cm) Discharge Plan Discharge Admit Provider: Diana Terrazas Coding Level of Care Code ED Miniature Set Designer for g Fwd Exam Comprehensive
[2020-02-08 06:32] LABS: Basophils % 0.3 %; Eosinophils # 0.1 10^3/uL (0.0-0.8); Eosinophils % 0.9 %; Hematocrit 27.8 % (42.0-52.0); Hemoglobin 8.8 g/dL (11.7-16.6); Lymphocytes % 12.6 %; Mean Corpuscular HGB Conc 31.7 g/dL (30.0-36.0); Mean Corpuscular Hemoglobin 30.8 pg (28.0-34.0); Mean Corpuscular Volume 97.2 fL (80-94); Mean Platelet Volume 9.7 fL (7.4-10.4); Monocytes # 0.6 10^3/uL (0.2-0.9); Monocytes % 7.1 %; Neutrophils # 6.11 10^3/uL (1.8-7.7); Neutrophils % 78.8 %; Nucleated Red Blood Cells % 0 %; Platelet Count 271 10^3/cmm (130-400); Red Blood Count 2.86 10^6/uL (4.1-5.3); White Blood Count 7.8 10^3/uL (4.0-10.0)
[2020-02-08 06:39] LABS: Alanine Aminotransferase 26 U/L (0-41); Albumin Level 2.7 g/dL (3.5-5.2); Alkaline Phosphatase 72 IU/L (40-130); Anion Gap 20.8 (5-19); Aspartate Amino Transferase 23 U/L (0-40); Calcium 9.4 mg/dL (8.5-10.5); Carbon Dioxide 19 mmol/L (22-29); Chloride 100 mmol/L (98-107); Glomerular Filtration Rate 2.9 mL/min (90-130); Glucose 89 mg/dL (65-115); Osmolality Calculated 305 mOsm/kg (285-295); Potassium 5.8 mmol/L (3.5-5.1); Sodium 134 mmol/L (136-145); Total Bilirubin 0.3 mg/dL (0.15-1.2); Total Protein 5.7 g/dL (6.6-8.7)
--- NOTE | 2020-02-08 06:46 | PC.NURSE ---
Received report assumed care. NO changes noted from report. Resting on right lateral side.
[2020-02-08 06:53] LABS: Blood Urea Nitrogen 89 mg/dL (6-20)
--- NOTE | 2020-02-08 08:02 | PM.HP ---
Providers/Chief Complaint Admitting Physician: Diana Terrazas DO Chief Complaint: not feeling well History of Present Illness Navneet Savage is a 54 year old male history of hypertension, end-stage renal disease on peritoneal dialysis, gout, GERD, history of CVA x3. He reports that he has not been feeling well. Over the past several days. States that he has had generalized fatigue and malaise. He reports some lower abdominal pain with diarrhea over the past week. He stated that he was recently hospitalized at [facility], diagnosed with an infection in his bowels had a colonoscopy at that time and is supposed to have further follow-up in the coming week. 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 Patient stated that he has not had dialysis in the past 24 hours. Stated that his fluid has been draining clear, no fevers, no sick contacts. Patient denies any exposure to anyone with COVID-19 or anyone under investigation for COVID-19. Patient reports he is on well water, denies any bright red blood per rectum, denies any melanotic stools. Patient states that he has not had any of his medications in the last 24 hours. Stated that his clonidine patch fell off several days ago and he has not replaced it. He reports that he just generally feels unwell, no specific concerns of pain other than cramping in his abdomen and diarrhea. Patient was seen and evaluated in the emergency department noted to have generalized malaise and fatigue as well as worsening BUN and creatinine in the setting of end-stage renal disease on peritoneal dialysis. Review of Systems Const: Reports: fatigue and malaise; Denies: fever(s) or chills Eyes: Denies: change in vision ENMT: Denies: nasal congestion Card: Reports: edema; Denies: chest pain or palpitations Resp: Reports: dyspnea; Denies: productive cough or hemoptysis GI: Reports: abdominal pain and diarrhea; Denies: nausea, vomiting, constipation, hematochezia or melena : Reports: other (makes only a small amount of urine due to ESRD); Denies: dysuria or hematuria Musc: Denies: extremity pain or muscle cramps Skin/Breast: Denies: rash or new lesions Neuro: Reports: headache(s) (chronic); Denies: dizziness Psych: Denies: anxiety or depression Endo: Denies: polyuria or hot flashes Lucas/Lymph: Denies: easy bruising or easy bleeding Medications/Allergies Home Medications Medication Instructions Recorded Confirmed Last Taken Type RenaPlex-D 1 tab PO DAILY 11/27/19 02/08/20 11/26/19 History alfuzosin 10 mg PO DAILY 11/27/19 02/08/20 11/26/19 History allopurinol 100 mg PO DAILY 11/27/19 02/08/20 11/26/19 History clonidine See Rx Instructions .ROUTE .COMPLEX 11/27/19 02/08/20 11/20/19 History clopidogrel 75 mg PO DAILY 11/27/19 02/08/20 11/26/19 History escitalopram oxalate 20 mg PO BID 11/27/19 02/08/20 11/26/19 History nifedipine 90 mg PO DAILY 11/27/19 02/08/20 11/26/19 History simvastatin 40 mg PO DAILY 11/27/19 02/08/20 11/26/19 History sodium bicarbonate 650 mg PO DAILY 11/27/19 02/08/20 11/26/19 History levothyroxine 25 mcg PO DAILY #30 tab 11/29/19 02/08/20 Unknown Rx finasteride 5 mg PO DAILY 02/07/20 02/08/20 Unknown History lanthanum See Rx Instructions .ROUTE .COMPLEX 02/07/20 02/08/20 Unknown History lanthanum [Fosrenol] See Rx Instructions .ROUTE .COMPLEX 02/07/20 02/08/20 Unknown History losartan 100 mg PO DAILY 02/07/20 02/08/20 Unknown History pantoprazole 40 mg PO DAILY 02/07/20 02/08/20 Unknown History trazodone 25 mg PO BEDTIME 02/07/20 02/08/20 Unknown History Zantac 150 mg PO DAILY 02/08/20 02/08/20 Unknown History aspirin 81 mg PO DAILY 02/08/20 02/08/20 Unknown History Allergies Allergy/AdvReac Type Severity Reaction Status Date / Time Penicillins Allergy ALGY-Anaphy Verified 02/08/20 11:18 laxis Sulfa (Sulfonamide Allergy Unknown Verified 02/08/20 11:18 Antibiotics) PFSH Acute PFSH: Medical History (Updated 02/08/20 @ 08:12 by Diana Terrazas DO) Bilateral hydronephrosis Bradycardia CVA (cerebral vascular accident) Dependence on peritoneal dialysis ESRD (end stage renal disease) Hypertension Incomplete bladder emptying Nicotine dependence Peritoneal dialysis catheter in situ Polycystic kidney disease Surgical History History of colonoscopy 2020 at [facility] History of surgical procedure Peritoneal dialysis catheter placement by Dr. Kamara 2015 Family History (Updated 02/08/20 @ 08:08 by Diana Terrazas DO) Mother Chronic kidney disease (CKD) Other Hypertension Social History Smoking and tobacco status: heavy tobacco smoker cigarettes [ Other cigarette details: Half a pack per day for last 20-30 years ] and smokeless tobacco Alcohol intake: never Substance/Drug Use: current Substance/Drug use type: Marijuana Household members: family Housing: House Vitals/I&O/Wt Last Vital Signs Temp 97.7 F 02/08/20 05:33 Pulse 90 02/08/20 06:46 Resp 18 02/08/20 06:46 BP 155/82 02/08/20 06:46 Pulse Ox 96 02/08/20 06:46 Weight last 48 hrs Weight 84.368 kg Physical Exam Const: COMMON NORMALS: patient oriented x3 and alert GENERAL APPEARANCE: cooperative and frail appearing ORIENTATION/CONSCIOUSNESS: Yes awake, Yes oriented to person, Yes oriented to place and Yes oriented to time HENMT: COMMON NORMALS: normocephalic and atraumatic HEAD & SCALP: normocephalic and atraumatic Eye: COMMON NORMALS: Equal, round and reactive pupils present PUPIL: Yes Equal, round and reactive pupils present Neck/C-Spine: COMMON NORMALS: supple GENERAL: Yes normal visual inspection Resp: COMMON NORMALS: normal respiratory effort and clear to auscultation bilaterally EFFORT & INSPECTION: Yes able to speak in complete sentences AUSCULTATION: clear to auscultation bilaterally, no rhonchi and no wheezes Cardio: COMMON NORMALS: regular rate, regular rhythm and No murmurs present (Cardio) RATE: regular rate RHYTHM: regular rhythm GI: COMMON NORMALS: Soft to palpation PALPATION: Yes Soft to palpation OTHER: Mild abdominal distention, normal bowel sounds, tenderness to palpation in the left and right lower quadrant, no guarding or rigidity Extremity: COMMON NORMALS: no calf tenderness OTHER: Slight nonpitting edema in the left lower extremity Neuro: COMMON NORMALS: patient oriented x3, CN's II-XII intact bilaterally, moves all extremities and no focal motor deficits SENSORIUM/ORIENTATION: Yes alert, Yes oriented to person, Yes oriented to place and Yes oriented to time SPEECH: speech normal Psych: COMMON NORMALS: mental status grossly normal and cooperative Skin: COMMON NORMALS: no rashes or lesions noted GENERAL SKIN EXAM: no rashes or lesions noted Data : 02/08/20 06:10 02/08/20 06:10 CT Head: I personally reviewed and interpreted this imaging study as follows: Radiologist's impression: FINDINGS: Brain: There is no acute intracranial hemorrhage or mass effect. Mild diffuse volume loss is within the range of normal for patient age. There are small vessel ischemic changes within the periventricular and subcortical white matter, but the normal cardozo/white matter delineation is maintained. Ventricles: No ventriculomegaly. Bones/joints: Unremarkable. No acute fracture. Paranasal sinuses: Visualized sinuses are unremarkable. No fluid levels. Mastoid air cells: Visualized mastoid air cells are well aerated. Soft tissues: Unremarkable. CT/CT head wo con* [id number] IMPRESSION: No acute hemorrhage or edema. CXR: I personally reviewed and interpreted this imaging study as follows: Radiologist's impression: FINDINGS: Lungs: There are low lung volumes. Streaky bibasilar opacities are suggestive of atelectasis. Pleural space: Unremarkable. No pleural effusion. No pneumothorax. Heart/Mediastinum: Unremarkable. No cardiomegaly. Bones/joints: Unremarkable. XR/XR chest 1V portable [id number] IMPRESSION: Low lung volumes and bibasilar atelectasis. A&P Assessment and plan (1) Abdominal pain: Nonspecific abdominal pain in the right and left lower quadrant Recent hospitalization at an outside facility, [facility] in [facility], discussed with patient and he is agreeable to have records obtained. He states that he was diagnosed with an infection in his colon. Patient does have a history of C. difficile colitis will check further stool studies Will obtain culture from peritoneal fluid Patient did have a prior CT from 11-27-19 that showed nonspecific cecal wall thickening and recommended to follow-up to exclude neoplasm, unchanged severe hydroureter and hydronephrosis. Patient reports recent colonoscopy at an outside facility, waiting to obtain records from this report. Status: Acute (2) ESRD (end stage renal disease): Patient with worsening BUN and creatinine as well as hyperkalemia, has not been able to do peritoneal dialysis for the past 24 hours. Reports that he was in the process of transitioning to hemodialysis and supposed to have graft placed today, however this had to be pushed back. He follows with Dr. Candelaria in the outpatient setting. Will discuss with nephrology for consultation and consideration of transitioning to hemodialysis Patient reporting diarrhea with hyperkalemia will hold off on Kayexalate at this time patient needs dialysis we will follow-up with nephrology recommendations Status: Acute (3) Hypertension: Patient is on losartan 100 mg daily, nifedipine and clonidine. He is on a clonidine patch 0.3 mg weekly, stated that he has not had the patch on in several days. Status: Acute Qualifiers: Hypertension type: essential hypertension Qualified Code(s): I10 - Essential (primary) hypertension (4) Chronic anemia: Patient's hemoglobin at 8.8, denies any recent melanotic stools, denies any bright red blood per rectum. No evidence of any active bleeding, likely secondary to chronic disease Further iron studies pending Status: Acute Additional A&P Information History of C. difficile colitis in November of this year, further stool studies ordered and pending Diet: N.p.o. due to abdominal discomfort DVT prophylaxis: SCDs, no pharmacologic prophylaxis due to anemia CODE STATUS: Full code Attestations Medical Necessity Statement*: Patient requires hospitalization due to uremia with end-stage renal disease, generalized malaise and abdominal pain. Expected stay greater than 2 midnights Coding Level of Care Code Acute Hvac Instructor for Chg Fwd Exam Comprehensive Diagnoses Abdominal pain R10.9 ESRD (end stage renal disease) N18.6 Hypertension I10 Hypertension type: essential hypertension Chronic anemia D64.9
--- NOTE | 2020-02-08 08:21 | PC.NURSE ---
Will be taken to the floor via technical support representative. Pt stable and ready to go
--- NOTE | 2020-02-08 08:53 | USCV_ITS ---
Navneet Savage Age: 54 Gender: M : 1965 Exam Date: 02/08/2020 09:18 Ordering Phys: Diana Terrazas DO Technologist: Aman Caro Exam Location: [facility] [place] Indication: DYSPNEA BP: 132 / 80 HR: 87 Rhythm: Sinus Technical Quality: Adequate MEASUREMENTS (Male / Female) Normal Values 2D ECHO LV Diastolic Diameter PLAX 5.3 cm 4.2 - 5.9 / 3.9 - 5.3 cm LV Systolic Diameter PLAX 2.8 cm IVS Diastolic Thickness 1.1 cm 0.6 - 1.0 / 0.6 - 0.9 cm IVS Systolic Thickness 1.6 cm LVPW Diastolic Thickness 1.3 cm 0.6 - 1.0 / 0.6 - 0.9 cm LVPW Systolic Thickness 1.7 cm LVOT Diameter 2.1 cm LV Ejection Fraction 2D Teich 78.8 % LV Ejection Fraction MOD 2C 64.5 % LV Ejection Fraction 2C AL 65.2 % LA Diameter 4.5 cm LA Width 4.3 cm LA Height 5.5 cm RA Width 3.6 cm RA Height 5.0 cm Aorta at Sinotubular Diameter 1.3 cm M-MODE LV Diastolic Diameter MM 5.2 cm 4.2 - 5.9 / 3.9 - 5.3 cm LV Systolic Diameter MM 3.2 cm LV Ejection Fraction MM Teich 69.2 % IVS Diastolic Thickness MM 2.0 cm 0.6 - 1.0 / 0.6 - 0.9 cm IVS Systolic Thickness MM 2.0 cm LVPW Diastolic Thickness MM 1.3 cm 0.6 - 1.0 / 0.6 - 0.9 cm LVPW Systolic Thickness MM 1.9 cm RV Diastolic Diameter MM 1.8 cm Aortic Annulus Diameter 4.9 cm LA Ao Ratio MM 0.9 MV E Point Septal Separation 1.5 cm DOPPLER AV Peak Velocity 220.0 cm/s LVOT Peak Velocity 96.0 cm/s AV Area Cont Eq vti 1.8 cm squared AV Area Cont Eq pk 1.5 cm squared MV Area PHT 5.0 cm squared Mitral E to A Ratio 1.1 MV E' Velocity 13.0 cm/s Mitral E to MV E' Ratio 10.1 Mitral E to LV E' Lateral Ratio 8.2 Mitral E to LV E' Septal Ratio 13.2 TR Peak Velocity 139.0 cm/s TR Peak Gradient 7.8 mmHg TV Peak E Velocity 129.0 cm/s Right Atrial Pressure 3.0 mmHg Pulmonary Artery Systolic Pressu 10.7 mmHg PV Peak Velocity 147.0 cm/s FINDINGS Left Ventricle Normal left ventricular size, systolic function and wall thickness, with no regional wall motion abnormalities. Left ventricular ejection fraction is estimated at 70 %. Normal diastolic function. Right Ventricle Normal right ventricular size and systolic function. Right ventricular systolic pressure 10.7 mmHg. Right Atrium Normal right atrial size. Left Atrium Normal left atrial size. Mitral Valve Mildly thickened mitral valve. No mitral valve stenosis. No significant mitral valve regurgitation. Aortic Valve Structurally normal trileaflet aortic valve. No aortic valve stenosis. No aortic valve regurgitation. Tricuspid Valve Structurally normal tricuspid valve. Trace tricuspid valve regurgitation. Pulmonic Valve Structurally normal pulmonic valve. No pulmonary valve stenosis. Trace pulmonary valve regurgitation. Pericardium No pericardial effusion. Aorta Dilated aortic root measured at 44 mm. CONCLUSIONS 1. Normal left ventricular size, systolic function and wall thickness, with no regional wall motion abnormalities. Left ventricular ejection fraction is estimated at 70 %. Normal diastolic function. 2. No significant valvular abnormality. 3. Dilated aortic root measured at 44 mm. Dora Mustafa MD (Electronically Signed) Final Date: 08 February 2020 22:02 S
--- NOTE | 2020-02-08 09:37 | PM.CONSULT ---
Providers/Reason For Consult Consulting Physican/Specialty*: Madyson Sifuentes DO, telenephrology Reason for Consult*: ESRD Requesting Physcian: Diana Terrazas DO Attending Physician: Diana Terrazas DO History of Present Illness History of Present Illness Navneet Savage is a 54 year old male, was scheduled to have AVG placed today. 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 He has uremia and needs to change to hemodialysis. Anuric. Dr Candelaria requested placement of tunneled hemodialysis catheter and removal of peritoneal catheter during this admission. Last hospitalization was for colitis, possible C.diff Review of Systems General: Reports: ROS unobtainable due to medical condition Meds/Allergies Home Medications and Allergies Home Medications Medication Instructions Recorded Confirmed Last Taken Type RenaPlex-D 1 tab PO DAILY 11/27/19 02/08/20 11/26/19 History alfuzosin 10 mg PO DAILY 11/27/19 02/08/20 11/26/19 History allopurinol 100 mg PO DAILY 11/27/19 02/08/20 11/26/19 History clonidine See Rx Instructions .ROUTE .COMPLEX 11/27/19 02/08/20 11/20/19 History clopidogrel 75 mg PO DAILY 11/27/19 02/08/20 11/26/19 History escitalopram oxalate 20 mg PO BID 11/27/19 02/08/20 11/26/19 History nifedipine 90 mg PO DAILY 11/27/19 02/08/20 11/26/19 History simvastatin 40 mg PO DAILY 11/27/19 02/08/20 11/26/19 History sodium bicarbonate 650 mg PO DAILY 11/27/19 02/08/20 11/26/19 History levothyroxine 25 mcg PO DAILY #30 tab 11/29/19 02/08/20 Unknown Rx finasteride 5 mg PO DAILY 02/07/20 02/08/20 Unknown History lanthanum See Rx Instructions .ROUTE .COMPLEX 02/07/20 02/08/20 Unknown History lanthanum [Fosrenol] See Rx Instructions .ROUTE .COMPLEX 02/07/20 02/08/20 Unknown History losartan 100 mg PO DAILY 02/07/20 02/08/20 Unknown History pantoprazole 40 mg PO DAILY 02/07/20 02/08/20 Unknown History trazodone 25 mg PO BEDTIME 02/07/20 02/08/20 Unknown History Zantac 150 mg PO DAILY 02/08/20 02/08/20 Unknown History aspirin 81 mg PO DAILY 02/08/20 02/08/20 Unknown History Allergies Allergy/AdvReac Type Severity Reaction Status Date / Time Penicillins Allergy ALGY-Anaphy Verified 02/08/20 11:40 laxis Sulfa (Sulfonamide Allergy Unknown Verified 02/08/20 11:40 Antibiotics) PFSH Acute PFSH: Medical History (Updated 02/08/20 @ 08:12 by Diana Terrazas DO) Bilateral hydronephrosis Bradycardia CVA (cerebral vascular accident) Dependence on peritoneal dialysis ESRD (end stage renal disease) Hypertension Incomplete bladder emptying Nicotine dependence Peritoneal dialysis catheter in situ Polycystic kidney disease Surgical History History of colonoscopy 2020 at [facility] History of surgical procedure Peritoneal dialysis catheter placement by Dr. Kamara 2015 Family History (Updated 02/08/20 @ 08:08 by Diana Terrazas DO) Mother Chronic kidney disease (CKD) Other Hypertension Social History Smoking and tobacco status: heavy tobacco smoker cigarettes [ Other cigarette details: Half a pack per day for last 20-30 years ] and smokeless tobacco Alcohol intake: never Substance/Drug Use: current Substance/Drug use type: Marijuana Household members: family Housing: House Vitals/I&O/Wt Last Vital Signs Temp 97.9 F 02/08/20 08:53 Pulse 84 02/08/20 08:53 Resp 18 02/08/20 08:53 BP 173/91 02/08/20 08:53 Pulse Ox 97 02/08/20 08:53 Weight last 48 hrs Weight 84.368 kg Physical Exam Narrative: EXAM NARRATIVE: post op, sleeping, arousable but not answering questions Neck/C-Spine: OTHER: tunneled right IJ catheter Resp: COMMON NORMALS: normal respiratory effort and clear to auscultation bilaterally AUSCULTATION: clear to auscultation bilaterally Cardio: COMMON NORMALS: regular rate and regular rhythm RATE: regular rate RHYTHM: regular rhythm HEART SOUNDS: no rubs Data Labs: Other Labs: phos 10.4, Mg 2.4, albumin 2.7, calcium corrected 10.2 TSAT 72% Other Data: Other data: CXR: Retraction of the right central venous catheter with tips in the proximal and mid SVC in good position. No pneumothorax. A&P Additional A&P Information 1. ESRD, failed PD (anuric). Plan to change to hemodialysis 2. Hyperkalemia, metabolic acidosis 3. Anemia, iron replete 4. Hyperphosphatemia 5. Hypertension Recommend: will continue PD until tunneled HD catheter can be inserted and HD initiated. Send PD fluid for cell count and C&S. Gent to PD catheter exit site daily. PD Q4 hr, 1.5% dianeal. HD tomorrow. If hemodialysis catheter works well, can remove PD catheter. Renal diet, phosphate binder. Epogen at dialysis. 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
[2020-02-08 09:39] LABS: INR 0.97 (0.8-1.2)
--- NOTE | 2020-02-08 09:48 | PM.CONSULT ---
Providers/Reason For Consult Consulting Physican/Specialty*: Joesph Brito MD Reason for Consult*: Hemodialysis catheter placement Attending Physician: Diana Terrazas DO History of Present Illness History of Present Illness Chief Complaint: Generalized fatigue History of present illness: Mr. Navneet Savage is a 54 year old male with history of multiple medical comorbidities including end-stage renal disease on peritoneal dialysis and history of CVA x3, patient presented to the emergency department with generalized fatigue and weakness. He was supposed to get a tunneled hemodialysis catheter today in [place] but that did not take place and patient was admitted on the hospitalist service and what appears to be that per rolling machine tender input the patient will be transitioned from the peritoneal dialysis to hemodialysis. General surgery was consulted for placement of temporary tunneled hemodialysis catheter as he is supposed to get his AV fistula today in [place] but unfortunately his vascular surgeon had an incident. And his procedure got postponed for a month in the interim from what I collected that the patient has not been compliant with the peritoneal dialysis and he will require hemodialysis and so the consensus obtained from nephrology service to place a temporary tunneled hemodialysis catheter to continue taking appropriate care of the patient and at some point he would get an AV fistula moving forward. Chest x-ray done today; FINDINGS: Lungs: There are low lung volumes. Streaky bibasilar opacities are suggestive of atelectasis. Pleural space: Unremarkable. No pleural effusion. No pneumothorax. Heart/Mediastinum: Unremarkable. No cardiomegaly. Bones/joints: Unremarkable. XR/XR chest 1V portable [id number] IMPRESSION: Low lung volumes and bibasilar atelectasis. Review of Systems General: Reports: 10 or more systems reviewed and unremarkable except in HPI and below Meds/Allergies Home Medications and Allergies Home Medications Medication Instructions Recorded Confirmed Last Taken Type RenaPlex-D 1 tab PO DAILY 11/27/19 02/08/20 11/26/19 History alfuzosin 10 mg PO DAILY 11/27/19 02/08/20 11/26/19 History allopurinol 100 mg PO DAILY 11/27/19 02/08/20 11/26/19 History clonidine See Rx Instructions .ROUTE .COMPLEX 11/27/19 02/08/20 11/20/19 History clopidogrel 75 mg PO DAILY 11/27/19 02/08/20 11/26/19 History escitalopram oxalate 20 mg PO BID 11/27/19 02/08/20 11/26/19 History nifedipine 90 mg PO DAILY 11/27/19 02/08/20 11/26/19 History simvastatin 40 mg PO DAILY 11/27/19 02/08/20 11/26/19 History sodium bicarbonate 650 mg PO DAILY 11/27/19 02/08/20 11/26/19 History levothyroxine 25 mcg PO DAILY #30 tab 11/29/19 02/08/20 Unknown Rx finasteride 5 mg PO DAILY 02/07/20 02/08/20 Unknown History lanthanum See Rx Instructions .ROUTE .COMPLEX 02/07/20 02/08/20 Unknown History lanthanum [Fosrenol] See Rx Instructions .ROUTE .COMPLEX 02/07/20 02/08/20 Unknown History losartan 100 mg PO DAILY 02/07/20 02/08/20 Unknown History pantoprazole 40 mg PO DAILY 02/07/20 02/08/20 Unknown History trazodone 25 mg PO BEDTIME 02/07/20 02/08/20 Unknown History Zantac 150 mg PO DAILY 02/08/20 02/08/20 Unknown History aspirin 81 mg PO DAILY 02/08/20 02/08/20 Unknown History Allergies Allergy/AdvReac Type Severity Reaction Status Date / Time Penicillins Allergy ALGY-Anaphy Verified 02/08/20 11:40 laxis Sulfa (Sulfonamide Allergy Unknown Verified 02/08/20 11:40 Antibiotics) PFSH Acute PFSH: Medical History (Updated 02/08/20 @ 08:12 by Diana Terrazas DO) Bilateral hydronephrosis Bradycardia CVA (cerebral vascular accident) Dependence on peritoneal dialysis ESRD (end stage renal disease) Hypertension Incomplete bladder emptying Nicotine dependence Peritoneal dialysis catheter in situ Polycystic kidney disease Surgical History History of colonoscopy 2020 at [facility] History of surgical procedure Peritoneal dialysis catheter placement by Dr. Kamara 2015 Family History (Updated 02/08/20 @ 08:08 by Diana Terrazas DO) Mother Chronic kidney disease (CKD) Other Hypertension Social History Smoking and tobacco status: heavy tobacco smoker cigarettes [ Other cigarette details: Half a pack per day for last 20-30 years ] and smokeless tobacco Alcohol intake: never Substance/Drug Use: current Substance/Drug use type: Marijuana Household members: family Housing: House Vitals/I&O/Wt Last Vital Signs Temp 97.9 F 02/08/20 08:53 Pulse 84 02/08/20 08:53 Resp 18 02/08/20 08:53 BP 173/91 02/08/20 08:53 Pulse Ox 97 02/08/20 08:53 Weight last 48 hrs Weight 186 lb Physical Exam Narrative: EXAM NARRATIVE: Patient is conscious alert oriented X3 BMI 30 Head and neck examination PERRLA no masses no cervical lymphadenopathy no jaundice Cardiac examination audible S1-S2 no murmurs no gallops no arrhythmias Chest is clear bilateral,abscence of Rhonchi or wheezes,no surgical emphysema Abdomen mildly tender nondistended soft no organomegaly guarding or rigidity/no signs of peritonitis, presence of right-sided peritoneal dialysis catheter in place without complication A&P Assessment and plan (1) ESRD (end stage renal disease): Plan of care; After thorough history physical examination and reviewing the chart, I counseled the patient for temporary tunneled hemodialysis catheter placement, indications, risks including pneumothorax and injury of major vascular structures, benefits,indications and alternatives were all discussed with the patient, patient understands and is interested to proceed. Rationale was carefully and clearly discussed with the patient.Appropriate informed consent have been reviewed and signed. Status: Acute Consult Attestations Medical Necessity Statement: Requiring inpatient hospitalization for ongoing medical management and hemodialysis Time Spent in Patient Care: (>than 50% of time spent in counselling and/or direct pt care on unit). Coding Level of Care Code Acute Glass Technician for Chg Fwd Diagnoses ESRD (end stage renal disease) N18.6
[2020-02-08 09:52] LABS: Magnesium 2.4 mg/dL (1.7-2.3); Thyroid Stimulating Hormone 10.91 uIU/mL (0.27-4.20)
[2020-02-08 10:07] LABS: Phosphorus 10.4 mg/dL (2.5-4.5)
[2020-02-08 10:19] LABS: Iron 88 ug/dL (59-158); Percent Saturation 72.1 % (20-50); Total Iron Binding Capacity 122 mcg/dl; Unsaturated Iron Binding 34 ug/dL (112-347)
[2020-02-08 10:23] LABS: Lactic Sepsis W/Reflex 0.4 mmol/L (0.5-2.2)
[2020-02-08] MEDS: dextrose 50% syringe 50 mL IVP (10:45)
[2020-02-08] MEDS: calcium gluconate 0.1 gm/mL 10% SDV 10mL 1 GM IVP (10:46)
[2020-02-08] MEDS: insulin regular-human 10 UNIT in SYRINGE 1 EACH IVP (10:47)
[2020-02-08 11:03] LABS: Add Urine Microscopic? YES; Bilirubin Urine Neg (Negative); Blood Urine Neg (Negative); Glucose Urine UA Trace (Normal); Ketones Urine Negative (Negative); Leukocyte Esterase Urine Negative (Negative); Nitrate Urine Negative (Negative); Protein Urine 1+ (Negative); Sulfosalicylic Acid Urine Positive (Negative); Urine Appearance Clear (CLEAR); Urine Color Yellow (Yellow); Urobilinogen Urine Neg (Negative); pH Urine 8 (5-7)
[2020-02-08 11:13] LABS: Add Urine Culture? No; WBC Urine 0-4 /hpf (0-5)
--- NOTE | 2020-02-08 11:21 | PC.NURSE ---
Prn note Patient is off the floor for dialysis cath placement
--- NOTE | 2020-02-08 11:33 | P.ANESASSM_ITS ---
Pre-Anesthetic Assessment Pre-Anesthetic Assessment: Height/Weight: Height 1.68 m Weight 84.368 kg Temp Pulse Resp BP Pulse Ox 97.9 F 84 18 173/91 97 02/08/20 08:53 02/08/20 08:53 02/08/20 08:53 02/08/20 08:53 02/08/20 08:53 Preop Diagnosis: Dialysis catheter Proposed Procedure: Operation Date: 02/08/20 12:00 Proposed Procedures p Dialysis Catheter Insertion(Not Applicable) - Joesph Brito MD Familial anesthetic complications: none Was Beta Mat taken within 24 hours: N/A Last intake: Intake Last Liquid Date 02/07/20 Last Liquid Time 17:00 Last Solid Date 02/06/20 Last Solid Time 00:00 Social: Social History: Tobacco Comment: chews Exam: Pre-Anes Outpt Exam: alert, oriented x 3, clear to auscultation bilaterally and regular rate & rhythm Airway: Cervical ROM: WNL MP: 3 Dentition: Other (no teeth up top) : : Chronic renal failure (polycystic kidneys) Comments: ESRD on peritoneal dialysis, last performed last night with ineffective result. Now in need of urgent dialysis with temporary tunneled HD catheter. GI: GI: GERD Metabolic: Metabolic: Hyperlipidemia and Thyroid Comments: Hyperkalemia, given calcium gluconate and insulin w/ glucose - EKG shows no changes consistent w/ hyperkalemia. Holding kayexalate given diarrhea. Neuropsych: Neuropsych: CVA (X3) Anesthetic Plan: ASA status: 4E Anesthesia: MAC Risk of > 500 ml blood loss (7ml/kg in children): No PFSH Anesthesia PFSH: Medical History (Updated 02/08/20 @ 08:12 by Diana Terrazas DO) Bilateral hydronephrosis Bradycardia CVA (cerebral vascular accident) Dependence on peritoneal dialysis ESRD (end stage renal disease) Hypertension Incomplete bladder emptying Nicotine dependence Peritoneal dialysis catheter in situ Polycystic kidney disease Surgical History History of colonoscopy 2019 at [facility] History of surgical procedure Peritoneal dialysis catheter placement by Dr. Kamara 2015 Family History (Updated 02/08/20 @ 08:08 by Diana Terrazas DO) Mother Chronic kidney disease (CKD) Other Hypertension Social History Smoking and tobacco status: heavy tobacco smoker cigarettes [ Other cigarette details: Half a pack per day for last 20-30 years ] and smokeless tobacco Alcohol intake: never Substance/Drug Use: current Substance/Drug use type: Marijuana Household members: family Housing: House Data Anesthesia CBC & Chem 7: 02/08/20 06:10 02/08/20 06:10 Other Labs: Laboratory Results - last 48 hr 02/08/20 02/08/20 02/08/20 06:10 06:10 06:10 WBC 7.8 RBC 2.86 L Hgb 8.8 L Hct 27.8 L MCV 97.2 H MCH 30.8 MCHC 31.7 RDW 15.0 Plt Count 271 MPV 9.7 Neut % (Auto) 78.8 Lymph % (Auto) 12.6 [place] % (Auto) 7.1 Eos % (Auto) 0.9 Baso % (Auto) 0.3 Neut # (Auto) 6.11 Lymph # (Auto) 1.0 [place] # (Auto) 0.6 Eos # (Auto) 0.1 Baso # (Auto) 0.0 Nucleated RBC % (auto) 0 Nucleated RBCs # 0.0 PT 13.20 INR 0.97 Sodium 134 L Potassium 5.8 H Chloride 100 Carbon Dioxide 19 L Anion Gap 20.8 H BUN 89 H* Creatinine 17.2 H* GFR Calculation 2.9 L Glucose 89 Calculated Osmolality 305 H Lactic Acid Calcium 9.4 Phosphorus Magnesium Iron TIBC % Saturation Unsat Iron Binding Total Bilirubin 0.3 AST 23 ALT 26 Alkaline Phosphatase 72 Total Protein 5.7 L Albumin 2.7 L Globulin 3.0 TSH Urine Color Urine Appearance Urine pH Ur Specific [place] Urine Protein Urine Glucose (UA) Urine Ketones Urine Blood Urine Nitrate Urine Bilirubin Prot Sulfosalicylic Acd Urine Urobilinogen Ur Leukocyte Esterase Urine RBC Urine WBC Ur Squamous Epith Cells Amorphous Sediment Urine Bacteria 02/08/20 02/08/20 02/08/20 06:10 09:52 10:35 WBC RBC Hgb Hct MCV MCH MCHC RDW Plt Count MPV Neut % (Auto) Lymph % (Auto) [place] % (Auto) Eos % (Auto) Baso % (Auto) Neut # (Auto) Lymph # (Auto) [place] # (Auto) Eos # (Auto) Baso # (Auto) Nucleated RBC % (auto) Nucleated RBCs # PT INR Sodium Potassium Chloride Carbon Dioxide Anion Gap BUN Creatinine GFR Calculation Glucose Calculated Osmolality Lactic Acid 0.4 L Calcium Phosphorus 10.4 H* Magnesium 2.4 H Iron 88 TIBC 122 % Saturation 72.1 H Unsat Iron Binding 34 L Total Bilirubin AST ALT Alkaline Phosphatase Total Protein Albumin Globulin TSH 10.91 H Urine Color Yellow Urine Appearance Clear Urine pH 8 H Ur Specific V[place] 1.010 Urine Protein 1+ H Urine Glucose (UA) Trace H Urine Ketones Negative Urine Blood Neg Urine Nitrate Negative Urine Bilirubin Neg Prot Sulfosalicylic Acd Positive Urine Urobilinogen Neg Ur Leukocyte Esterase Negative Urine RBC None Urine WBC 0-4 H Ur Squamous Epith Cells None Amorphous Sediment Not Reportable Urine Bacteria None Micro: Microbiology 02/08/20 09:55 Blood Culture - Preliminary Blood SPECIMEN COLLECTED 02/08/20 09:52 Blood Culture - Preliminary Blood SPECIMEN COLLECTED Cardiac Studies: No Data to Display
[2020-02-08] MEDS: sodium chloride 0.9% 1,000 ML 30 ML IV (11:58)
[2020-02-08] MEDS: clindamycin 600 MG/50 ML PREMIX 100 MG IV (12:06)
--- NOTE | 2020-02-08 12:34 | SC_ITS ---
WS: [id number] C-ARM RADIOGRAPHS CHEST; 2 IMAGES HISTORY: surgery COMPARISON: None available. Intraoperative imaging during dialysis catheter placement. Tips the dialysis catheter are directed to wards the midline over the spine. This could be projectional or due to rotation of the patient or abn ormal positioning. SC/C-arm [place] CVA [id number] IMPRESSION: Catheter tips are directed over the midline of the spine. This may be positiona l or due to abnormal position of the catheter tips.
[2020-02-08] MEDS: heparin, porcine 1,000 unit/mL INJ 10 mL 10000 UNIT HE (13:02)
[2020-02-08] MEDS: neomycin-poly-bacitracin oint 28 gm 1 APPLIC TOPICAL (13:21)
[2020-02-08] MEDS: lidocaine 2% INJ 20 mL INJECTION (13:21)
--- NOTE | 2020-02-08 13:27 | XR_ITS ---
WS: [id number] CHEST XRAY TECHNIQUE: Portable chest. CLINICAL INFORMATION: Status post right internal jugular vein dialysis tunneled catheter place COMPARISON: None. FINDINGS: Patient is slightly rotated. Right IJ dual-lumen dialysis catheter with tips overlying the distal SVC area. Distal tips directed t owards midline which may be rotational. Recommend upright chest. No pneumothorax. XR/XR chest 1V portable [id number] IMPRESSION: 1. No pneumothorax. 2. Dual lumen right IJ catheter with tip slightly directed towards the midline overlying the distal SVC area. This may be rotational. Recommend upright chest . Notified Joesph Brito MD at 02/08/2020 2:09 PM.
--- NOTE | 2020-02-08 13:33 | P.OP_ITS ---
Operative Report Date of procedure: February 08, 2020 Pre-op Diagnosis: End stage renal disease Post-op Findings: Difficulty in passing catheters onto the wire due to kinking wire got exchanged likely fibrous tissue towards the clavicular head.Attention deviated towards ultrasound-guided placement of right internal jugular vein dialysis catheter access. Procedure Done: Placement of right internal jugular vein hemodialysis catheter tunneled. 16 Vietnamese 27 cm in length under fluoroscopic guidance and ultrasound as well.Interpretation through the whole entire procedure done by me. Implants: Right IJ hemodialysis catheter 16 Vietnamese 27 cm in length. Surgeon: Joesph Brito Cellophane Bag Machine Operator: Jefe Machado Anesthesia: MAC (Art Alvarez) Estimated blood loss (mL): 10 Condition: stable Disposition: floor Brief History: This is a pleasant 54 years old gentleman with history of complicated end-stage renal disease that required peritoneal dialysis and it seems that the patient has not been compliant and was supposed to get AV fistula in [place] by his vascular surgeon yet his vascular surgeon had an incident and his procedure got to be postponed for a month. Presented to the emergency department with weakness and generalized fatigue and required hemodialysis tunneled catheter placement so general surgery was consulted for further evaluation and intervention. After further counseling the patient he did agree to proceed accordingly Informed consent per chart Procedure: Patient was identified in the holding area and taken to the operative room and placed in supine position both arms were tucked,Time-out was done verifying the patient's name/date of /planned procedure and destination after the procedure, all were in agreement.SCDs confirmed to be functioning, patient was given prophylactic antibiotics administered per protocol, and beta julee protocol was confirmed, appropriate positioning of the patient was done by me. Medications were reviewed to assess for anticoagulant usage. Risks and benefits and prevention of central line associated blood stream infection (CLABSI) were discussed with the patient/CPOA, and a consent was obtained. Monitors were in place and monitored throughout the procedure. All necessary supplies were available prior to start. Hand hygiene was completed prior to starting. Maximum barrier technique was utilized including a sterile gown, sterile gloves with a hat and mask. Site was was prepped with [chlorhexidine] and a full body drape was placed. 5 mL of 2% lidocaine was injected into the skin with a 25 gauge needle. Prep& drape was done under the usual sterile technique of upper chest right and left as well as the neck both sides, lidocaine 2% was injected at the site of the stick, started by right subclavian stick that retrieved venous blood was obtained from the first stick,a guidewire was then threaded and under the guidance of fluoroscopy position was confirmed to be in the right side of the heart, there was some PVC changes, wire was retracted some and there were no more PVCs, at that point the guidewire was secured to the drapes with a hemostat and the needle was taken out, attention was then deviated towards creation of an insert for the HD catheter at the right upper chest, were lidocaine 2% was injected using an 11 blade knife skin incision was created dissection using a hemostat to create an entrance and for the HD catheter to be inserted were it was connected to a tunneler, and the tunneler was used to accommodate the catheter of the HD catheter to be delivered through the incision first created at the site of the stick, a small giovanny was created with 11 blade knife to allow delivery of the catheter outside the wound ,at that point under fluoroscopy,serial dilators were done that come in the in the KIT it on the second dilator appears that will not feed well on the guidewire and I had to reverse the wire but again there was a kink likely there is fibrous tissue located towards the medial head of the clavicle. Another wire was used in the same issue occurred. At This point I had to take the HD catheter from the previous incisions created as the measurements would be different going through the IJ. I decided at this point to abort the approach from the subclavian vein and hold pressure for 10 minutes at the subclavian vein index stick and deviated my attention towards the right IJ and under ultrasound guidance I was able to retrieve venous blood from the first stick as there was no evidence of intraluminal thrombosis.Followed by that a guidewire was introduced and was noticed to be in the IVC the wire was then secured to the drape. Fresh incisions were created and the dialysis catheter was tunneled via the right upper chest towards the site of the index stick of the right IJ. Serial dilators were used,followed by that a dilator with the sheath introduced onto the guidewire ,the dilator and the wire were retrieved and the catheter of the port was introduced via the sheath where it was peeled off and the catheter maintained, to be in good position in the right atrium. Both ports were flushed with diluted heparin and appropriate blood was retrieved first, Hep-Lock's were then applied The whole procedure was done under fluoroscopy , the position maintained to be in the rt atrium yet there was some curving of the end part of the catheter crossing the midline and radiologist recommended to obtain a chest x-ray postprocedure but overall the catheter looks to be in good position likely the patient was little bit tilted per radiology that is why it gives this appearance,and as long as it is being flushing well it should be okay. Otherwise ultrasound and fluoroscopy interpretation was done by me throughout the entire procedure. The stick site was closed by 3-0 Vicryl deep subdermal interrupted sutures, followed by 4-0 Monocryl and Dermabond was used followed by dry dressing was applied and the other created incisions were closed as well 3/0 nylon was used to secure the hemodialysis catheter onto the anterior chest wall Patient tolerated the procedure well was taken to the recovery area Count was correct at the end of the procedure I was present for the whole entire procedure. Position of the catheter was checked with a postoperative chest x-ray and it was concerned that the catheter is going towards the internal mammary vein versus the azygos vein and so at the PACU the catheter was pulled out the bedside and secured again under sterile technique and resutured and another chest x-ray was obtained found to be in good position without evidence of pneumothorax. Per my discussion with Dr. Seymour radiologist if continues to be future issues likely the patient would benefit from an echo down the road to rule out potential SVC/cardiac structural abnormalities versus a CT scan of the chest with IV contrast.
--- NOTE | 2020-02-08 13:59 | XR_ITS ---
WS: [id number] CHEST XRAY TECHNIQUE: Portable chest. CLINICAL INFORMATION: s/p right IJ HD cathter placement COMPARISON: Earlier today FINDINGS/IMPRESSION: Right IJ catheter with tips directed towards midline at the level of the right mainstem bronchus like ly within the azygos vein. Recommend retraction 3.5-4cm for proximal SVC placement Notified Joesph Brito MD at 02/08/2020 2:23 PM.
--- NOTE | 2020-02-08 14:10 | SUR.PHASEI ---
PT AWAKES TO TOUCH, FOLLOWS COMMANDS BUT REMAINS VERY SLEEPY, GOOD RESP EFFORT, VSS X RAY HERE FOR 2ND TIME TO REPEAT X RAY. PT SLEEPS IF NOT AWAKENED, VSS.
--- NOTE | 2020-02-08 14:15 | SUR.PHASEI ---
DR SUAREZ AT BEDSIDE PREPARING TO PULL BACK DIALYSIS CATHETER , OR MARQUISE AT BEDSIDE TO ASSIST WITH PROCEDURE, CONTINOUS MONITORING IN PLACE PT SLEEPING.
[2020-02-08] MEDS: lidocaine 2% INJ 20 mL (14:20)
--- NOTE | 2020-02-08 14:24 | XR_ITS ---
WS: [id number] CHEST XRAY TECHNIQUE: Portable chest. CLINICAL INFORMATION: dialysis cath COMPARISON: Earlier today FINDINGS/IMPRESSION Retraction of the right central venous catheter with tips in the proximal and mid SVC in good positio n. No pneumothorax. Notified Joesph Brito MD at 02/08/2020 2:39 PM.
[2020-02-08] MEDS: naloxone 0.4 mg/ml SDV 0.1 MG IVP ×4 (14:48→14:54)
--- NOTE | 2020-02-08 15:02 | P.PCN_ITS ---
PACU note PACU note: Patient very sedated in PACU. Opens eyes, stick outs out tongue, weak hand metals sales representative to command, but immediately falls back to sleep. Narcan 0.4 mg IV given at bedside in divided doses with minimal improvement. VSS, SPO2 99% on nasal cannula. Given level of sedation, safer to send patient to ICU on sameera nuous pulse ox. Recommend expedient dialysis. Post-Anesthesia Exam: somnolent, arousable and vital signs stable Disposition: other (To ICU)
--- NOTE | 2020-02-08 15:09 | PC.CHAP ---
Pastoral Care Encounter/Spiritual Assessment Type of Contact [x] Declined social media strategist visit [] Patient/Family/Request visit [] Outpatient visit [] Follow-up visit [] Physician referral [] Code/Alert [] Routine visit [] Staff referral [] Actively dying [] Patient sleeping [] Family support [] [] Out of room [] Palliative care [] [] Receiving care in room [] Pre-surgical visit [] Trauma [] Long length of stay [] ICU visit [] Other: Relational/Emotional Strength [] Patient feels connected with others/family/visitors/staff [] Distress [] Loneliness/isolation [] Abandonment Spirituality of Patient [] Person of Nora [] Attends Mosque of their Nora [] Believes in Prayer [] Reads Bible or Sabianism materials [] There are Spiritual issues to be addressed Advertising Vice President Interventions [] Prayer [] Active listening [] Non-anxious presence [] Spiritual/emotional support [] Crisis/trauma care [] Spiritual counseling [] Bereavement support [] Provided bereavement packet [] Provided Bible/devotional materials [] Provided toy/stuffed animal, coloring book to patient or family member [] Provided Communion [] Anointing/[place] [] Salvation [] Completed spiritual assessment [] Other: Impact on Illness or Injury [] Angry [] Fearful [] Anxious [] Often cries [] Exhaustion [] Unable to work [] Unable to attend buddhism [] Unable to walk/stand [] Unable to read [] Unable to drive [] Unable to eat/drink [] Unable to sleep [] Unable to be with family [] Patient intubated [] Other: Summary Declined social media strategist visit Time spent with patient 5 mins
--- NOTE | 2020-02-08 16:02 | SUR.PHASEI ---
1440 PROCEDURE COMPLETE X RAYS DONE DR SUAREZ REMAINS AT BEDSIDE FLOOR NURSE TAMIKO CALLED TO GET DIALYSIS TIME, WAS TOLD BY NURSE THAT PT TO HAVE PERITONEAL TONIGHT AND HEMODIALYSIS TOMORROW. DR CHAN AT BEDSIDE PT VERY SEDATED AWAKES SLIGHTLY TO TOUCH BUT WILL NOT VERBALIZE OR FOLLOW COMMANDS, PT RESP UNLABORED , SATS 100% ON 3LNC . PT TOO SEDATED TO SEND TO FLOOR 1600 SEE EARLIER NARCAN IVP GIVEN IN [address] LANZA'S ORDER , DR AT BEDSIDE, PT DOES NOT RESPOND TO NARCAN ORDERS RECIEVED FOR PT TO GO TO ICU OVERNIGHT DR SUAREZ AWARE, DR LANZA TO CALL HOSPITALIST.
--- NOTE | 2020-02-08 16:07 | SUR.PHASEI ---
PREVIOUS NOTE TIMED 1600 IN ERROR SHOULD HAVE BEEN 1500 1533 PT TO ICU , AWAKES TO VOICE MORE AND DID ASSIST IN MOVING TO BED, PT QUICKLY BACK TO SLEEP VSS. HANDOFF AT BEDSIDE TO ICU NURSES.
--- NOTE | 2020-02-08 18:14 | PC.NURSE ---
Patient arrived to ICU at 1600, meds that were scheduled for 1130 had not been administered. Patient is too sedated from anesthesia to swallow safely at this time.
[2020-02-08 20:07] LABS: Hepatitis B Surface AB 3.5 (0-8.5); Hepatitis B Surface Antigen Non-Reactive (Nonreactive); Hepatitis C Virus Antibody Non-Reactive (Nonreactive)
[2020-02-08] MEDS: morphine 4 mg/mL SDV 1 mL 2 MG IVP (20:08)
[2020-02-08] MEDS: Dianeal low Ca w/1.5% dex 2,000 mL Bag 2000 ML INTRAPERIT ×2 (20:25→23:58)
[2020-02-08] MEDS: hyDRALAzine 20 mg/mL INJ 1 mL 10 MG IVP ×2 (21:01→22:35)
[2020-02-08] MEDS: sevelamer 800 mg Tablet 2400 MG PO (21:30)
--- NOTE | 2020-02-08 21:49 | PC.NURSE ---
Pt still remains sedated. PO Trazadone meds held, and non administered in JUL.
[2020-02-09] VITALS (92 sets, daily range): BP systolic 129–185; BP diastolic 62–103; PULSE 62–105; RESP 11–28; TEMP 36.5–36.9; O2SAT 87–99
[2020-02-09] MEDS: morphine 4 mg/mL SDV 1 mL 2 MG IVP (00:13)
[2020-02-09 00:36] LABS: Apprearance, Body Fluid CLEAR; Color, Body Fluid PALE YELLOW
[2020-02-09 00:51] LABS: Body Fluid Polynuclear #Cells 0.035; Body Fluid WBC 104 /uL; Monocytes # Body Fluid 0.069; RBC, Body Fluid 0 10^3/uL
--- NOTE | 2020-02-09 01:23 | PC.NURSE ---
Hypertension 2041- Contacted MD to update on HTN of 184/88 with manual readings of 190/100. MD ordered 10mg Hydralazine IVP once. BP decreased down into 150/90. Contacted MD again at 2200 for further orders with BP readings continuing to remain in the high 180's/105. Second dose of 10mg Hydralazine ordered IVP. MD was contacted again at 0115 for continued HTN of 184/98. MD placed order for 0.5 inch nitro paste to be administered to chest. 2mg Morphine IVP was given in between doses of hydralazine (X's 2) to help control patient pain levels, and aid in decreasing pt's BP.
[2020-02-09] MEDS: nitroglycerin 1 gm/inch oint Pkt 0.5 INCH TOPICAL ×4 (01:34→19:40)
[2020-02-09 03:50] LABS: Basophils % 0.4 %; Eosinophils # 0.1 10^3/uL (0.0-0.8); Eosinophils % 0.7 %; Hematocrit 26.4 % (42.0-52.0); Hemoglobin 8.1 g/dL (11.7-16.6); Lymphocytes % 11.4 %; Mean Corpuscular HGB Conc 30.7 g/dL (30.0-36.0); Mean Corpuscular Hemoglobin 30.3 pg (28.0-34.0); Mean Corpuscular Volume 98.9 fL (80-94); Monocytes # 0.7 10^3/uL (0.2-0.9); Monocytes % 7.2 %; Neutrophils # 7.23 10^3/uL (1.8-7.7); Nucleated Red Blood Cells % 0 %; Platelet Count 257 10^3/cmm (130-400); Red Blood Count 2.67 10^6/uL (4.1-5.3); Red Cell Distribution Width 15.1 % (12.1-15.1)
[2020-02-09 04:01] LABS: Alanine Aminotransferase 22 U/L (0-41); Albumin Level 2.7 g/dL (3.5-5.2); Alkaline Phosphatase 68 IU/L (40-130); Anion Gap 19.7 (5-19); Aspartate Amino Transferase 20 U/L (0-40); Carbon Dioxide 20 mmol/L (22-29); Chloride 101 mmol/L (98-107); Globulin 2.6 g/dL (1.3-4.6); Glomerular Filtration Rate 3.3 mL/min (90-130); Glucose 89 mg/dL (65-115); Osmolality Calculated 309 mOsm/kg (285-295); Potassium 5.7 mmol/L (3.5-5.1); Sodium 135 mmol/L (136-145); Total Bilirubin 0.3 mg/dL (0.15-1.2); Total Protein 5.3 g/dL (6.6-8.7)
[2020-02-09] MEDS: Dianeal low Ca w/1.5% dex 2,000 mL Bag 2000 ML INTRAPERIT (04:05)
[2020-02-09 04:10] LABS: Blood Urea Nitrogen 96 mg/dL (6-20)
--- NOTE | 2020-02-09 05:36 | PC.NURSE ---
Norepinepherine titrated down from 4mcg/min. Norepinephrine is now off. See IV Spreadsheet. Amiodarone was titrated down to 0.5mg/min at 2145. Patient agreed to a complete bed bath and linen change. Both left central IJ, and HD cath dressings were changed overshift as well. Pt remained on Bipap, and has been tolerating fairly around 96% After admin of pain medication, patient was able to rest more comfortably. Still refuses some care, but more willing to accept nursing interventions overall.
--- NOTE | 2020-02-09 05:52 | PC.NURSE ---
Pt resting well for majority of shift. Some c/o pain noted throughout shift and IV morphine was given to decrease pain levels. BP remained elevated through shift, with SBP around mid 180's-190's. Hydralazine and Nitro paste given in efforts to decrease per MD orders. Peritoneal Dialysis started at 20:00. Fluids returned clear with each enstillment and drain. HD dialysis planned for start today per MD Dolores. A&O 4. Remains at 2L N/C.
--- NOTE | 2020-02-09 06:23 | PC.NURSE ---
Telehealth and Hemodialysis consents obtained and filed in patients chart.
[2020-02-09 08:15] LABS: T3 Free 1.4 PG/ML (2.0-4.4)
--- NOTE | 2020-02-09 09:09 | PC.NURSE ---
Rounded with Dr. Terrazas. Orders to DC PD, patient will start HD today. Patient is stable to transfer to the floor and may have a Renal HD soft, bland diet.
--- NOTE | 2020-02-09 09:20 | ANE.PACU2 ---
Inpatient post-anesthesia follow up: Airway intact: Yes Vital signs: Temperature 97.7 F Pulse Rate [Monito r] 91 Pulse Rate 80 Respiratory Rate 28 Blood Pressure [Ri ght Arm] 169/95 Blood Pressure 162/91 Pulse Oximetry 96 Oxygen Delivery Me thod [Rate & Nasal Cannula Delivery Changed T o] Oxygen Delivery Me thod Nasal Cannula Oxygen Flow Rate [ Rate & 1 Delivery Changed T o] Oxygen Flow Rate 2 Fraction of Inspir ed Oxygen Hydration adequate: Yes Nausea and vomiting: No Pain level: 3 Mental status: Baseline
[2020-02-09] MEDS: sevelamer 800 mg Tablet 2400 MG PO ×3 (09:21→18:32)
[2020-02-09] MEDS: finasteride 5 mg Tablet PO (10:27)
[2020-02-09] MEDS: atorvastatin 40 mg Tablet 20 MG PO (10:27)
[2020-02-09] MEDS: alfuzosin 10 mg ER Tablet PO (10:27)
[2020-02-09] MEDS: levothyroxine 50 mcg Tablet PO (10:28)
[2020-02-09] MEDS: clopidogrel 75 mg Tablet PO (10:29)
--- NOTE | 2020-02-09 11:03 | P.PN_ITS ---
Subjective Subjective: Interval history: Patient resting in bed at time of exam. He denies any chest pain or shortness of breath. Reported that he still had some occasional cramping in his abdomen but improved. Has not had any further loose stools since admission. Discussed with patient plan to transition to hemodialysis today, he verbalized understanding. Vitals/I&O/Wt Last Vital Signs Temp 97.7 F 02/09/20 07:18 Pulse 80 02/09/20 08:15 Resp 28 H 02/09/20 08:15 BP 162/91 02/09/20 08:15 Pulse Ox 96 02/09/20 08:15 02/08/20 02/09/20 02/09/20 22:59 06:59 14:59 Intake Total 1999 Output Total 100 / 125 2850 / 2975 2099 / 2099 Balance 1900 / 1925 -2850 / -925 -2099 / -2099 Weight last 48 hrs Weight 95.028 kg Weight 84.368 kg Physical Exam Const: COMMON NORMALS: patient oriented x3 and alert GENERAL APPEARANCE: cooperative and frail appearing ORIENTATION/CONSCIOUSNESS: Yes awake, Yes oriented to person, Yes oriented to place and Yes oriented to time HENMT: COMMON NORMALS: normocephalic and atraumatic HEAD & SCALP: normocephalic and atraumatic Eye: COMMON NORMALS: Equal, round and reactive pupils present PUPIL: Yes Equal, round and reactive pupils present Neck/C-Spine: COMMON NORMALS: supple GENERAL: Yes normal visual inspection Resp: COMMON NORMALS: normal respiratory effort and clear to auscultation bilaterally EFFORT & INSPECTION: Yes able to speak in complete sentences AUSCULTATION: clear to auscultation bilaterally, no rhonchi and no wheezes Cardio: COMMON NORMALS: regular rate, regular rhythm and No murmurs present (Cardio) RATE: regular rate RHYTHM: regular rhythm GI: COMMON NORMALS: Soft to palpation PALPATION: Yes Soft to palpation OTHER: Peritoneal dialysis catheter in place, no surrounding erythema or drainage, normal bowel sounds, no appreciable tenderness to palpation, no guarding or rigidity Extremity: COMMON NORMALS: no calf tenderness OTHER: No cyanosis or appreciable edema today Neuro: COMMON NORMALS: patient oriented x3, CN's II-XII intact bilaterally, moves all extremities and no focal motor deficits SENSORIUM/ORIENTATION: Yes alert, Yes oriented to person, Yes oriented to place and Yes oriented to time SPEECH: speech normal Psych: COMMON NORMALS: mental status grossly normal and cooperative Skin: COMMON NORMALS: no rashes or lesions noted GENERAL SKIN EXAM: no rashes or lesions noted Data : 02/09/20 03:20 02/09/20 03:20 Micro: Microbiology 02/08/20 09:55 Blood Culture - Preliminary Blood NEGATIVE TO DATE 02/08/20 09:52 Blood Culture - Preliminary Blood NEGATIVE TO DATE A&P Assessment and plan (1) Abdominal pain: Prior history of C. difficile colitis this summer. Patient has not had any diarrheal stools since admission however stool studies are ordered and pending Patient is on a well water Patient does have a history of some findings on prior CT scan of cecal wall thickening and would recommend outpatient colonoscopy, this has not been performed recently but he did have a recent EGD showing gastric ulcer Patient was recently hospitalized at [facility] in [place] earlier this month and diagnosed with peritonitis. Patient did have a prior CT from 11-27-19 that showed nonspecific cecal wall th ickening and recommended to follow-up to exclude neoplasm, unchanged severe hydroureter and hydronephrosis. Status: Acute (2) ESRD (end stage renal disease): Previously on peritoneal dialysis, transition to hemodialysis today per nephrology recommendations. 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 Candelaria along with Dr. Martha Sifuentes. Patient to start hemodialysis today. Tunneled dialysis catheter placed yesterday by Dr. Brito. Status: Acute (3) Hypertension: Patient is on losartan 100 mg daily, nifedipine and clonidine. Previously on a clonidine patch however he reports that he has not had a done in several days. This was held since he has not been taking the medication, concerned that this is not a good medication for him as it can cause rebound hypertension in the setting of noncompliance Status: Acute Qualifiers: Hypertension type: essential hypertension Qualified Code(s): I10 - Essential (primary) hypertension (4) Chronic anemia: Patient's hemoglobin at 8.8, denies any recent melanotic stools, denies any bright red blood per rectum. No evidence of any active bleeding, likely secondary to chronic disease Further iron studies pending Status: Acute Additional A&P Information History of C. difficile colitis in November of this year, further stool studies ordered and pending. Has not had further bowel movement since admission Diet: Restart bland, dialysis diet DVT prophylaxis: SCDs, no pharmacologic prophylaxis due to anemia CODE STATUS: Full code Attestations Medical Necessity Statement*: Patient requires continued hospitalization due to abdominal pain with recent peritonitis, transition to hemodialysis with uremia. Transfer out of the ICU today. Coding Level of Care Code Acute Machine Silver Stripper for Chg Fwd Diagnoses Abdominal pain R10.9 ESRD (end stage renal disease) N18.6 Hypertension I10 Hypertension type: essential hypertension Chronic anemia D64.9
--- NOTE | 2020-02-09 11:23 | PC.OT ---
OT NOTE: OT TREATMENT ATTEMPTED AT 1105; PATIENT RECEIVING DIALYSIS; WILL ATTEMPT AGAIN IN P.M.
[2020-02-09] MEDS: aspirin 81 mg EC Tablet PO (13:31)
[2020-02-09] MEDS: losartan 50 mg Tablet 100 MG PO (13:31)
[2020-02-09] MEDS: escitalopram 10 mg Tablet 20 MG PO ×2 (13:31→18:32)
[2020-02-09] MEDS: NIFEdipine ER (24 hr) 30 mg Tablet 90 MG PO (13:32)
[2020-02-09] MEDS: allopurinol 100 mg Tablet PO (13:33)
[2020-02-09] MEDS: pantoprazole DR 40 mg Tablet PO (13:33)
--- NOTE | 2020-02-09 14:57 | P.PN_ITS ---
Subjective Subjective: Interval history: not very talkative. First HD today uneventful Medications: Reviewed: Yes Vitals/I&O/Wt Last Vital Signs Temp 97.7 F 02/09/20 07:18 Pulse 83 02/09/20 14:15 Resp 14 02/09/20 14:15 BP 155/92 02/09/20 14:15 Pulse Ox 91 02/09/20 14:15 02/08/20 02/09/20 02/09/20 22:59 06:59 14:59 Intake Total 1999 600 / 600 Output Total 100 / 125 2850 / 2975 2100 / 2100 Balance 1900 / 1925 -2850 / -925 -1500 / -1500 Weight last 48 hrs Weight 95.028 kg Weight 84.368 kg Physical Exam Const: COMMON NORMALS: no acute distress ORIENTATION/CONSCIOUSNESS: Yes awake Resp: COMMON NORMALS: normal respiratory effort Cardio: COMMON NORMALS: regular rate, regular rhythm and No rub (Cardio) RATE: regular rate RHYTHM: regular rhythm Data : 02/09/20 03:20 02/09/20 03:20 Micro: Microbiology 02/08/20 09:55 Blood Culture - Preliminary Blood NEGATIVE TO DATE 02/08/20 09:52 Blood Culture - Preliminary Blood NEGATIVE TO DATE A&P Additional A&P Information 1. ESRD, failed PD (anuric). First HD completed today. hemodialysis catheter worked well. HD again tomorrow. d/c PD. please ask surgery to remove PD catheter prior to hospital discharge. No evidence of peritonitis. 2. Hyperkalemia, metabolic acidosis 3. Anemia, iron replete, begin epogen at dialysis 4. Hyperphosphatemia, renvela started 5. Hypertension Discharge to outpatient HD unit when stable. Attestations Medical Necessity Statement*: per primary service Time Spent in Patient Care: 16 - 35 minutes Coding Level of Care Code Acute Pals Specialist for Chg Fwd Exam Expanded Problem Focused
--- NOTE | 2020-02-09 17:02 | ECG_ITS ---
[facility] Test Date: 2020-02-09 Pat Name: Navneet Savage Department: Room: 250 Gender: Male System Designer: : 1965 Requested By: Diana Terrazas Order Number: [id number] Nate MD: Dora Mustafa M.D. Measurements Intervals [place] Rate: 85 P: 21 NE: 140 QRS: -23 QRSD: 104 T: 46 QT: 390 QTc: 466 Interpretive Statements SINUS RHYTHM BORDERLINE LEFT AXIS DEVIATION [QRS AXIS < -20] Compared to ECG 02/08/2020 05:42:55 Myocardial infarct finding no longer present Electronically Signed On 02-10-2020 8:15:27 CDT by Dora Mustafa M.D. [id number]
--- NOTE | 2020-02-09 17:08 | XRR_ITS ---
PROCEDURE INFORMATION: Exam: XR Chest, 1 View Exam date and time: 02/09/2020 6:03 PM Age: 54 years old Clinical indication: Chest pain; Prior surgery; Surgery type: Port; Additional info: SOB TECHNIQUE: Imaging protocol: XR of the chest Views: 1 view. COMPARISON: CR XR chest 1V portable [id number] 02/08/2020 2:43 PM FINDINGS: Tubes, catheters and devices: Stable right central line. Lungs: Poor inspiratory effort with some crowding of pulmonary markings and possible accentuation of the apparent heart size. Pleural space: Unremarkable. No pleural effusion. No pneumothorax. Heart/Mediastinum: Unremarkable. No cardiomegaly. Bones/joints: Unremarkable. XR/XR chest 1V portable [id number] IMPRESSION: No acute findings.
--- NOTE | 2020-02-09 18:51 | PC.NURSE ---
pt stated he was having SOB, nausea, headache, and nose bleed. Dr. Terrazas notified of these symptoms, vitals are 167/90, heart rate of 101, oxygen saturation of 98% on room air. pt was calm, having no pain, and not in distress. Dr Terrazas ordered a series of EKG, troponin,and a portable chest xray.
[2020-02-09 18:59] LABS: Troponin(5th) Baseline 115 ng/L (0-15)
[2020-02-09 21:14] LABS: Troponin 5 2HR Delta 0.9 ABS# (0-10)
[2020-02-09 21:18] LABS: Troponin 5 2HR 115.9 ng/L (0-15)
[2020-02-09] MEDS: trazodone 50 mg Tablet 25 MG PO (22:12)
[2020-02-09 23:54] LABS: Troponin 5 6HR Delta 0.2 ng/L (0-12)
[2020-02-10 00:09] LABS: Troponin 5 6HR 115.2 ng/L (0-15)
[2020-02-10 03:42] VITALS: BP 144/88; PULSE 82; RESP 14; TEMP 36.7; O2SAT 94
[2020-02-10 05:51] LABS: Basophils % 0.3 %; Eosinophils % 0.4 %; Hematocrit 24.3 % (42.0-52.0); Hemoglobin 7.5 g/dL (11.7-16.6); Lymphocytes # 1.2 10^3/uL (0.8-4.8); Lymphocytes % 16.9 %; Mean Corpuscular HGB Conc 30.9 g/dL (30.0-36.0); Mean Corpuscular Hemoglobin 30.2 pg (28.0-34.0); Mean Platelet Volume 10.1 fL (7.4-10.4); Monocytes # 0.7 10^3/uL (0.2-0.9); Monocytes % 9.4 %; Neutrophils # 5.01 10^3/uL (1.8-7.7); Neutrophils % 72.6 %; Nucleated Red Blood Cells % 0 %; Platelet Count 224 10^3/cmm (130-400); Red Blood Count 2.48 10^6/uL (4.1-5.3); Red Cell Distribution Width 14.6 % (12.1-15.1); White Blood Count 6.9 10^3/uL (4.0-10.0)
[2020-02-10 06:19] LABS: Alanine Aminotransferase 16 U/L (0-41); Albumin Level 2.5 g/dL (3.5-5.2); Alkaline Phosphatase 62 IU/L (40-130); Anion Gap 15.9 (5-19); Aspartate Amino Transferase 17 U/L (0-40); Blood Urea Nitrogen 53 mg/dL (6-20); Calcium 8.3 mg/dL (8.5-10.5); Carbon Dioxide 24 mmol/L (22-29); Chloride 100 mmol/L (98-107); Globulin 2.5 g/dL (1.3-4.6); Glomerular Filtration Rate 5.3 mL/min (90-130); Glucose 75 mg/dL (65-115); Osmolality Calculated 293 mOsm/kg (285-295); Potassium 4.9 mmol/L (3.5-5.1); Sodium 135 mmol/L (136-145); Total Bilirubin 0.3 mg/dL (0.15-1.2)
--- NOTE | 2020-02-10 07:05 | P.PN_ITS ---
Subjective Subjective: Interval history: Patient continues to respond well undergone hemodialysis yesterday and catheter is working well. No acute events overnight. Vitals/I&O/Wt Last Vital Signs Temp 98.1 F 02/10/20 03:42 Pulse 82 02/10/20 03:42 Resp 14 02/10/20 03:42 BP 144/88 02/10/20 03:42 Pulse Ox 94 02/10/20 03:42 02/09/20 02/10/20 02/10/20 22:59 06:59 14:59 Intake Total 0 / 600 Balance 0 / -1500 Weight last 48 hrs Weight 202 lb Weight 209 lb 8 oz Physical Exam Narrative: EXAM NARRATIVE: Patient is conscious alert oriented X3 BMI 33 Head and neck examination PERRLA no masses no cervical lymphadenopathy no jaundice Right upper chest and right-sided neck hemodialysis catheter in place without complications. No evidence of chest wall crepitus or surgical emphysema. Abdomen nontender nondistended soft no organomegaly guarding or rigidity/no signs of peritonitis Right sided peritoneal dialysis catheter in place without complications. Data : 02/10/20 04:51 02/10/20 04:51 Micro: Microbiology 02/08/20 09:55 Blood Culture - Preliminary Blood NEGATIVE TO DATE 02/08/20 09:52 Blood Culture - Preliminary Blood NEGATIVE TO DATE A&P Assessment and plan (1) ESRD (end stage renal disease): Continue with dialysis per nephrology recommendation Please call for questions or concerns Assurance and education All questions have been answered and all concerns have been addressed to patient's satisfaction. Status: Acute Attestations Medical Necessity Statement*: Per hospitalist service Time Spent in Patient Care: (>than 50% of time spent in counselling and/or direct pt care on unit) . Coding Level of Care Code Acute Retail Shift Supervisor for Chg Fwd Diagnoses ESRD (end stage renal disease) N18.6
[2020-02-10 07:10] VITALS: BP 176/85; PULSE 97; RESP 18; TEMP 36.7; O2SAT 97
[2020-02-10] MEDS: sevelamer 800 mg Tablet 2400 MG PO ×2 (08:05→17:27)
[2020-02-10 08:06] VITALS: BP 176/85
[2020-02-10] MEDS: escitalopram 10 mg Tablet 20 MG PO ×2 (08:06→17:27)
[2020-02-10] MEDS: levothyroxine 50 mcg Tablet PO (08:06)
[2020-02-10] MEDS: sodium bicarbonate 650 mg Tablet PO (08:06)
[2020-02-10] MEDS: finasteride 5 mg Tablet PO (08:06)
[2020-02-10] MEDS: losartan 50 mg Tablet 100 MG PO (08:06)
[2020-02-10] MEDS: allopurinol 100 mg Tablet PO (08:06)
[2020-02-10] MEDS: atorvastatin 40 mg Tablet 20 MG PO (08:06)
[2020-02-10] MEDS: alfuzosin 10 mg ER Tablet PO (08:07)
[2020-02-10] MEDS: clopidogrel 75 mg Tablet PO (08:07)
[2020-02-10] MEDS: aspirin 81 mg EC Tablet PO (08:07)
[2020-02-10] MEDS: pantoprazole DR 40 mg Tablet PO (08:07)
[2020-02-10] MEDS: NIFEdipine ER (24 hr) 30 mg Tablet 90 MG PO (08:07)
--- NOTE | 2020-02-10 11:39 | P.PN_ITS ---
Subjective Subjective: Interval history: On examination patient is resting comfortably in bed. Denies having nausea, vomiting, headache. Complaining of occasional abdominal cramps. Has not had any further diarrhea since admission. Patient underwent dialysis yesterday. Plan for another session of dialysis today with nephrology. Vitals/I&O/Wt Last Vital Signs Temp 98.0 F 02/10/20 07:10 Pulse 97 02/10/20 07:10 Resp 18 02/10/20 07:10 BP 176/85 02/10/20 08:06 Pulse Ox 97 02/10/20 07:10 02/09/20 02/10/20 02/10/20 22:59 06:59 14:59 Intake Total 0 / 600 60 / 60 Balance 0 / -1500 60 / 60 Weight last 48 hrs Weight 91.626 kg Weight 95.028 kg Physical Exam Const: COMMON NORMALS: patient oriented x3 and alert GENERAL APPEARANCE: cooperative and frail appearing ORIENTATION/CONSCIOUSNESS: Yes awake, Yes oriented to person, Yes oriented to place and Yes oriented to time HENMT: COMMON NORMALS: normocephalic and atraumatic HEAD & SCALP: normocephalic and atraumatic Eye: COMMON NORMALS: Equal, round and reactive pupils present PUPIL: Yes Equal, round and reactive pupils present Neck/C-Spine: COMMON NORMALS: supple GENERAL: Yes normal visual inspection Resp: COMMON NORMALS: normal respiratory effort and clear to auscultation bilaterally EFFORT & INSPECTION: Yes able to speak in complete sentences AUSCULTATION: clear to auscultation bilaterally, no rhonchi and no wheezes Cardio: COMMON NORMALS: regular rate, regular rhythm and No murmurs present (Cardio) RATE: regular rate RHYTHM: regular rhythm GI: COMMON NORMALS: Soft to palpation PALPATION: Yes Soft to palpation OTHER: Peritoneal dialysis catheter in place, no surrounding erythema or drainage, normal bowel sounds, no appreciable tenderness to palpation, no guarding or rigidity Extremity: COMMON NORMALS: no calf tenderness OTHER: No cyanosis or appreciable edema today Neuro: COMMON NORMALS: patient oriented x3, CN's II-XII intact bilaterally, moves all extremities and no focal motor deficits SENSORIUM/ORIENTATION: Yes alert, Yes oriented to person, Yes oriented to place and Yes oriented to time SPEECH: speech normal Psych: COMMON NORMALS: mental status grossly normal and cooperative Skin: COMMON NORMALS: no rashes or lesions noted GENERAL SKIN EXAM: no rashes or lesions noted Data : 02/10/20 04:51 02/10/20 04:51 Micro: Microbiology 02/08/20 09:55 Blood Culture - Preliminary Blood NEGATIVE TO DATE 02/08/20 09:52 Blood Culture - Preliminary Blood NEGATIVE TO DATE A&P Assessment and plan (1) Abdominal pain: Prior history of C. difficile colitis this summer. Patient has not had any diarrheal stools since admission however stool studies are ordered and pending Patient is on a well water. Patient does have a history with CT scan done on November 27, 2019 showing cecal wall thickening and would recommend outpatient colonoscopy to exclude neoplasm. This has not been performed recently but he did have a recent EGD showing gastric ulcer. Patient was recently hospitalized at [facility] in [place] earlier this month and diagnosed with peritonitis. For now patient does not have any leukocytosis or fever. We will continue to monitor. Urinalysis done on this admission negative for any signs of infection with negative leuk esterase and nitrite. On last admission patient was treated with complete course of Levaquin for UTI. Status: Acute (2) ESRD (end stage renal disease): Previously on peritoneal dialysis, transition to hemodialysis today per nephrology recommendations. This was discussed with patient's primary disc pad grinding machine feeder Dr. Candelaria along with Dr. Martha Sifuentes. Patient underwent hemodialysis yesterday. Plan for another session of dialysis today. Tunneled dialysis catheter placed yesterday by Dr. Brito. Status: Acute (3) Hypertension: Goal blood pressure of less than 140/90 mmHg. Patient is on losartan 100 mg daily, nifedipine and clonidine. Previously on a clonidine patch however he reports that he has not had a done in several days. This was held since he has not been taking the medication, concerned that this is not a good medication for him as it can cause rebound hypertension in the setting of noncompliance. For now continue with home dose of nifedipine and losartan. We will switch clonidine to hydralazine 10 mg 3 times daily. We will continue to monitor. Status: Acute Qualifiers: Hypertension type: essential hypertension Qualified Code(s): I10 - Essential (primary) hypertension (4) Chronic anemia: Patient's hemoglobin at 8.8, denies any recent melanotic stools, denies any bright red blood per rectum. No evidence of any active bleeding, likely secondary to chronic disease Iron studies appreciated. Patient will be getting EPO along with dialysis today. Check hemoglobin daily. Status: Acute Additional A&P Information History of C. difficile colitis in November of this year, further stool studies ordered and pending. Has not had further bowel movement since admission Diet: Restart bland, dialysis diet DVT prophylaxis: SCDs, no pharmacologic prophylaxis due to anemia CODE STATUS: Full code Most likely discharge tomorrow. Patient does have slight time for HD on Wednesday as an outpatient. Attestations Medical Necessity Statement*: ESRD on dialysis, post tunnel cath placement, requiring dialysis today, hypertension Time Spent in Patient Care: Greater than 35 minutes (>than 50% of time spent in counselling and/or direct pt care on unit) . Coding Level of Care Code Acute Chief Medical Officer for [employer] Fwd Diagnoses Abdominal pain R10.9 ESRD (end stage renal disease) N18.6 Hypertension I10 Hypertension type: essential hypertension Chronic anemia D64.9
[2020-02-10] MEDS: hyDRALAzine 10 mg Tablet PO ×2 (14:47→20:23)
[2020-02-10 15:15] VITALS: BP 136/73; PULSE 97; RESP 18; TEMP 37.4; O2SAT 96
--- NOTE | 2020-02-10 15:24 | PM.PN ---
Subjective Subjective: Interval history: I am seeing him in follow up for ESRD management. Pt was getting HD when i saw him. He is feeling better. No nausea or vomiting Medications: Reviewed: Yes Vitals/I&O/Wt Last Vital Signs Temp 99.3 F 02/10/20 15:15 Pulse 97 02/10/20 15:15 Resp 18 02/10/20 15:15 BP 136/73 02/10/20 15:15 Pulse Ox 96 02/10/20 15:15 02/10/20 02/10/20 02/10/20 06:59 14:59 22:59 Intake Total 300 / 300 Balance 300 / 300 Weight last 48 hrs Weight 91.626 kg Weight 95.028 kg Physical Exam Const: COMMON NORMALS: no acute distress and patient oriented x3 GENERAL APPEARANCE: cooperative and comfortable ORIENTATION/CONSCIOUSNESS: Yes awake Resp: AUSCULTATION: crackles Cardio: COMMON NORMALS: S1 normal heart sound present and S2 normal heart sound present HEART SOUNDS: S1 normal heart sound present and S2 normal heart sound present GI: AUSCULTATION: Yes normoactive bowel sounds Extremity: GENERAL: Yes edema Neuro: COMMON NORMALS: patient oriented x3 Skin: COMMON NORMALS: no rashes or lesions noted GENERAL SKIN EXAM: no rashes or lesions noted Data : 02/10/20 04:51 02/10/20 04:51 A&P Assessment and plan (1) ESRD (end stage renal disease): Tolerating HD well, next treatment will be on wednesday. Recommend removing pd catheter prior to discharge Status: Acute (2) Hypertension: BP under control Status: Acute Qualifiers: Hypertension type: essential hypertension Qualified Code(s): I10 - Essential (primary) hypertension (3) Chronic anemia: Will give epo 4000 units with HD today Status: Acute Attestations Medical Necessity Statement*: ESRD Coding Level of Care Code Acute Automatic Machines Supervisor for [facility] Diagnoses ESRD (end stage renal disease) N18.6 Hypertension I10 Hypertension type: essential hypertension Chronic anemia D64.9
[2020-02-10 20:00] VITALS: BP 114/68; PULSE 93; RESP 18; TEMP 37.3; O2SAT 99
[2020-02-10] MEDS: trazodone 50 mg Tablet 25 MG PO (20:22)
[2020-02-10 23:34] VITALS: BP 155/80; PULSE 91; RESP 18; TEMP 37.2; O2SAT 93
[2020-02-11 03:43] VITALS: BP 171/89; PULSE 97; RESP 18; TEMP 37.1; O2SAT 93
[2020-02-11 05:38] LABS: Basophils % 0.2 %; Eosinophils % 0.5 %; Hematocrit 24.4 % (42.0-52.0); Hemoglobin 7.7 g/dL (11.7-16.6); Lymphocytes # 1.2 10^3/uL (0.8-4.8); Lymphocytes % 18.4 %; Mean Corpuscular HGB Conc 31.6 g/dL (30.0-36.0); Mean Corpuscular Hemoglobin 30.7 pg (28.0-34.0); Mean Corpuscular Volume 97.2 fL (80-94); Mean Platelet Volume 9.7 fL (7.4-10.4); Monocytes # 0.7 10^3/uL (0.2-0.9); Monocytes % 10.6 %; Neutrophils # 4.61 10^3/uL (1.8-7.7); Nucleated Red Blood Cells % 0 %; Platelet Count 217 10^3/cmm (130-400); Red Blood Count 2.51 10^6/uL (4.1-5.3); Red Cell Distribution Width 14.3 % (12.1-15.1); White Blood Count 6.6 10^3/uL (4.0-10.0)
[2020-02-11 06:03] LABS: Alanine Aminotransferase 13 U/L (0-41); Albumin Level 2.4 g/dL (3.5-5.2); Alkaline Phosphatase 65 IU/L (40-130); Anion Gap 13.5 (5-19); Aspartate Amino Transferase 16 U/L (0-40); Blood Urea Nitrogen 30 mg/dL (6-20); Calcium 8.6 mg/dL (8.5-10.5); Carbon Dioxide 26 mmol/L (22-29); Chloride 101 mmol/L (98-107); Globulin 2.6 g/dL (1.3-4.6); Glomerular Filtration Rate 7.3 mL/min (90-130); Glucose 74 mg/dL (65-115); Osmolality Calculated 287 mOsm/kg (285-295); Potassium 4.5 mmol/L (3.5-5.1); Sodium 136 mmol/L (136-145); Total Bilirubin 0.2 mg/dL (0.15-1.2)
[2020-02-11 08:00] VITALS: BP 175/88; PULSE 100; RESP 18; TEMP 36.8; O2SAT 92
[2020-02-11] MEDS: sodium bicarbonate 650 mg Tablet PO (08:14)
[2020-02-11] MEDS: levothyroxine 150 mcg Tablet 75 MCG PO (08:15)
[2020-02-11] MEDS: escitalopram 10 mg Tablet 20 MG PO (08:15)
[2020-02-11] MEDS: sevelamer 800 mg Tablet 2400 MG PO ×2 (08:15→11:33)
[2020-02-11] MEDS: allopurinol 100 mg Tablet PO (08:16)
[2020-02-11] MEDS: finasteride 5 mg Tablet PO (08:16)
[2020-02-11 08:17] VITALS: BP 175/88
[2020-02-11] MEDS: alfuzosin 10 mg ER Tablet PO (08:17)
[2020-02-11] MEDS: NIFEdipine ER (24 hr) 30 mg Tablet 90 MG PO (08:17)
[2020-02-11] MEDS: pantoprazole DR 40 mg Tablet PO (08:17)
[2020-02-11] MEDS: losartan 50 mg Tablet 100 MG PO (08:17)
[2020-02-11] MEDS: aspirin 81 mg EC Tablet PO (08:17)
[2020-02-11] MEDS: atorvastatin 40 mg Tablet 20 MG PO (08:18)
[2020-02-11] MEDS: clopidogrel 75 mg Tablet PO (08:18)
[2020-02-11] MEDS: hyDRALAzine 10 mg Tablet PO (08:29)
--- NOTE | 2020-02-11 11:34 | PM.DCS ---
Discharge Providers Date of Admission: 02/08/20 07:05 Date of Discharge: February 11, 2020 Attending Provider at Admission: Diana Terrazas DO Attending Provider at Discharge: Richie Loaiza MD Consults: Telemetry nephrology Surgery: Dr. Brito Diagnoses at Discharge Discharge Diagnosis (1) ESRD (end stage renal disease): Status: Acute (2) Hypertension: Status: Acute Qualifiers: Hypertension type: essential hypertension Qualified Code(s): I10 - Essential (primary) hypertension (3) Chronic anemia: Status: Acute (4) Peritoneal dialysis catheter in situ: Status: Acute (5) Polycystic kidney disease: Status: Acute Reason for Visit Reason for Visit: not feeling well Hospital Course Discharge Summary: Navneet Savage is a 54 year old male history of hypertension, end-stage renal disease on peritoneal dialysis, gout, GERD, history of CVA x3. He reports that he has not been feeling well. Over the past several days. States that he has had generalized fatigue and malaise. He reports some lower abdominal pain with diarrhea over the past week. He stated that he was recently hospitalized at [facility], diagnosed with an infection in his bowels had a colonoscopy at that time and is supposed to have further follow-up in the coming week. He stated that he was also scheduled to have fistula placement and he was going to be transitioning from peritoneal dialysis to hemodialysis with his filler and trimmer. Patient stated that he has not had dialysis in the past 24 hours. Stated that his fluid has been draining clear, no fevers, no sick contacts. Patient denies any exposure to anyone with COVID-19 or anyone under investigation for COVID-19. Patient reports he is on well water, denies any bright red blood per rectum, denies any melanotic stools. Patient states that he has not had any of his medications in the last 24 hours. Stated that his clonidine patch fell off several days ago and he has not replaced it. He reports that he just generally feels unwell, no specific concerns of pain other than cramping in his abdomen and diarrhea. Patient was seen and evaluated in the emergency department noted to have generalized malaise and fatigue as well as worsening BUN and creatinine in the setting of end-stage renal disease on peritoneal dialysis. He was admitted to the hospital because of noncompliance with his PD cath dialysis at home. His case was discussed with his outpatient filler and trimmer who advised for patient to have hemodialysis going forward because of severe noncompliance. Surgery was consulted and patient underwent Port-A-Cath placement on February 07. Since catheter placement he has had 2 sessions of dialysis on and which he has tolerated well. On admission patient is complaining of abdominal pain. Of note patient was recently admitted at [facility] for possible peritonitis. He also has a history of C. difficile last admission. Patient did not have any further diarrhea during hospitalization. CT abdomen was done recently which showed cecal wall thickening for which he has been advised to get colonoscopy as an outpatient to rule out neoplasm. Patient has been made aware of the same in the past but he continues to remain noncompliant. Patient was again counseled and reeducated regarding the same. Urinalysis done during this admission was negative for leukoesterase or nitrates or any signs of infections. Patient is due for removal of his PD catheter going forward. This was discussed with the surgeon and he recommended for the patient to follow-up with him as an outpatient within next 1 week to schedule for PD catheter removal as an outpatient. Patient is due for dialysis on Wednesday and has a seat at the dialysis center. Patient has been made aware of the same. Patient is discharged in hemodynamically stable condition with fresh dressings on both PD and hemodialysis catheter with advised to follow-up with Dr. Brito as an outpatient in 1 week and with his outpatient filler and trimmer Dr. Candelaria within next 2 weeks with advice and counseling to follow-up on regular dialysis. Physical Exam Const: COMMON NORMALS: patient oriented x3 and alert GENERAL APPEARANCE: cooperative and frail appearing ORIENTATION/CONSCIOUSNESS: Yes awake, Yes oriented to person, Yes oriented to place and Yes oriented to time HENMT: COMMON NORMALS: normocephalic and atraumatic HEAD & SCALP: normocephalic and atraumatic Eye: COMMON NORMALS: Equal, round and reactive pupils present PUPIL: Yes Equal, round and reactive pupils present Neck/C-Spine: COMMON NORMALS: supple GENERAL: Yes normal visual inspection Resp: COMMON NORMALS: normal respiratory effort and clear to auscultation bilaterally EFFORT & INSPECTION: Yes able to speak in complete sentences AUSCULTATION: clear to auscultation bilaterally, no rhonchi and no wheezes Cardio: COMMON NORMALS: regular rate, regular rhythm and No murmurs present (Cardio) RATE: regular rate RHYTHM: regular rhythm GI: COMMON NORMALS: Soft to palpation PALPATION: Yes Soft to palpation OTHER: Peritoneal dialysis catheter in place, no surrounding erythema or drainage, normal bowel sounds, no appreciable tenderness to palpation, no guarding or rigidity Extremity: COMMON NORMALS: no calf tenderness OTHER: No cyanosis or appreciable edema today Neuro: COMMON NORMALS: patient oriented x3, CN's II-XII intact bilaterally, moves all extremities and no focal motor deficits SENSORIUM/ORIENTATION: Yes alert, Yes oriented to person, Yes oriented to place and Yes oriented to time SPEECH: speech normal Psych: COMMON NORMALS: mental status grossly normal and cooperative Skin: COMMON NORMALS: no rashes or lesions noted GENERAL SKIN EXAM: no rashes or lesions noted Discharge Data Data Completed and Pending: Completed Studies During Hospitalization Category Date Time Status CT head wo con* 7 0450 Urgent Cat Scan 02/08/20 05:35 Completed XR chest 1V kat ble [id number] Stat Exams 02/08/20 05:35 Completed XR chest 1V kat ble [id number] Stat Exams 02/08/20 14:24 Completed XR chest 1V kat ble [id number] Stat Exams 02/09/20 17:08 Completed XR chest 1V kat ble [id number] Urgent Exams 02/08/20 13:27 Completed XR chest 1V kat ble [id number] Urgent Exams 02/08/20 13:59 Completed CV echo complete* [id number] Routine Ultrasound 02/08/20 08:53 Completed Pending at discharge Category Date Time Status Blood Culture Rou sumeet Lab 02/08/20 09:55 Results Labs from last 24 hours 02/11/20 02/11/20 05:02 05:02 WBC 6.6 RBC 2.51 L Hgb 7.7 L Hct 24.4 L MCV 97.2 H MCH 30.7 MCHC 31.6 RDW 14.3 Plt Count 217 MPV 9.7 Neut % (Auto) 70.0 Lymph % (Auto) 18.4 Ashley % (Auto) 10.6 Eos % (Auto) 0.5 Baso % (Auto) 0.2 Neut # (Auto) 4.61 Lymph # (Auto) 1.2 Ashley # (Auto) 0.7 Eos # (Auto) 0.0 Baso # (Auto) 0.0 Nucleated RBC % (a uto) 0 Nucleated RBCs # 0.0 Sodium 136 Potassium 4.5 Chloride 101 Carbon Dioxide 26 Anion Gap 13.5 BUN 30 H Creatinine 7.8 H* GFR Calculation 7.3 L Glucose 74 Calculated Osmolal ity 287 Calcium 8.6 Total Bilirubin 0.2 AST 16 ALT 13 Alkaline Phosphata se 65 Total Protein 5.0 L Albumin 2.4 L Globulin 2.6 Vitals: Last Vital Signs Temp 98.3 F 02/11/20 08:00 Pulse 100 02/11/20 08:00 Resp 18 02/11/20 08:00 BP 175/88 02/11/20 08:17 Pulse Ox 92 02/11/20 08:00 Discharge Plan Discharge Patient Disposition: Home Condition: Stable Prescriptions: New hydralazine 25 mg tablet 25 mg PO TID Qty: 60 RF: 0 Continued aspirin 81 mg tablet,delayed release (DR/EC) 81 mg PO DAILY RF: 0 Zantac 150 mg PO DAILY RF: 0 nifedipine 90 mg Tablet Extended Release 24hr 90 mg PO DAILY RF: 0 alfuzosin 10 mg Tablet Extended Release 24 Hr 10 mg PO DAILY RF: 0 RenaPlex-D 800 mcg-12.5 mg -2,000 unit Tablet 1 tab PO DAILY RF: 0 allopurinol 100 mg Tablet 100 mg PO DAILY RF: 0 sodium bicarbonate 650 mg Tablet 650 mg PO DAILY RF: 0 escitalopram oxalate 20 mg Tablet 20 mg PO BID RF: 0 clopidogrel 75 mg Tablet 75 mg PO DAILY RF: 0 simvastatin 40 mg Tablet 40 mg PO DAILY RF: 0 levothyroxine 25 mcg Tablet 25 mcg PO DAILY Qty: 30 RF: 0 trazodone 50 mg tablet 25 mg PO BEDTIME RF: 0 pantoprazole 40 mg tablet,delayed release (DR/EC) 40 mg PO DAILY RF: 0 losartan 100 mg tablet 100 mg PO DAILY RF: 0 finasteride 5 mg tablet 5 mg PO DAILY RF: 0 lanthanum 1,000 mg tablet,chewable See Rx Instructions .ROUTE .COMPLEX RF: 0 Fosrenol 1,000 mg powder in packet See Rx Instructions .ROUTE .COMPLEX RF: 0 Discontinued clonidine 0.3 mg/24 hr Patch Weekly See Rx Instructions .ROUTE .COMPLEX RF: 0 Discharge Orders: Discharge Order (Routine); Ordered 02/11/20 Ordered By: Richie Loaiza Referrals: Terrence Candelaria MD [Referring] - 2 weeks (Dr Candelaria's office should be calling you Wednesday but if they do not, please call them and make an appointment for 2 weeks. [phone]) Joesph Brito MD [Physician] - 1-3 days ([facility] will call you Wednesday with an appointment. If they don't, please call them at [phone] for an appointment this week. PD catheter removal and colonoscopy to rule out neoplasm) Discharge Diet: Usual diet Discharge Activity: Resume usual activity Activity Restrictions/Additional Instructions: Please follow-up with Dr. Brito as an outpatient within next 1 week for removal of PD catheter. Dr. Brito is aware of the same. Please follow-up with Dr. Terrence Candelaria within next 2 weeks. You have an appointment for dialysis tomorrow at the dialysis center. Now with dialysis will be through the HD catheter on Wednesday. Your high blood pressure medications have been adjusted. Clonidine has been removed from medication list. Hydralazine 25 mg 3 times a day have been added for medication. Discharge Attestations Time Spent in Discharge Care*: greater than 30 min Quality Metrics Clinical Quality Measures During this hospital stay, did patient experience: None Coding Level of Care Code Acute Collarette Separator for Chg Fwd Diagnoses ESRD (end stage renal disease) N18.6 Hypertension I10 Hypertension type: essential hypertension Chronic anemia D64.9 Peritoneal dialysis catheter in situ Z99.2 Polycystic kidney disease Q61.3
[2020-02-11 11:35] VITALS: BP 166/83; PULSE 89; RESP 18; TEMP 36.9; O2SAT 94
--- NOTE | 2020-02-11 11:56 | DCPLANNER ---
Pgs 1 & 2 of IM presented and explained to pt. He does not have questions and signs the IM. Copy provided and one to the chart.
--- NOTE | 2020-02-11 13:45 | PC.NURSE ---
discharge note pt verbalized understanding of discharge instructions. pt iv removed and intact. pt taken to exit entrance via wheelchair.
[2020-02-11 13:47] VITALS: BP 166/83; PULSE 89; RESP 18; TEMP 36.9; O2SAT 94
--- NOTE | 2020-02-11 16:33 | P.PN_ITS ---
Subjective Subjective: Interval history: I am seeing him in follow up for his ESRD management & dialysis needs. No chest pain or shortness of breath Medications: Reviewed: Yes Vitals/I&O/Wt Last Vital Signs Temp 98.5 F 02/11/20 13:47 Pulse 89 02/11/20 13:47 Resp 18 02/11/20 13:47 BP 166/83 02/11/20 13:47 Pulse Ox 94 02/11/20 13:47 02/11/20 02/11/20 02/11/20 06:59 14:59 22:59 Intake Total 360 / 360 Balance 360 / 360 Weight last 48 hrs Weight 86.183 kg Weight 91.626 kg Physical Exam Const: COMMON NORMALS: no acute distress and patient oriented x3 GENERAL APPEARANCE: cooperative and comfortable ORIENTATION/CONSCIOUSNESS: Yes awake Resp: COMMON NORMALS: clear to auscultation bilaterally AUSCULTATION: clear to auscultation bilaterally Cardio: COMMON NORMALS: S1 normal heart sound present and S2 normal heart sound present HEART SOUNDS: S1 normal heart sound present and S2 normal heart sound present GI: AUSCULTATION: Yes normoactive bowel sounds Extremity: GENERAL: Yes edema Neuro: COMMON NORMALS: patient oriented x3 Skin: COMMON NORMALS: no rashes or lesions noted GENERAL SKIN EXAM: no rashes or lesions noted Data : 02/11/20 05:02 02/11/20 05:02 A&P Assessment and plan (1) ESRD (end stage renal disease): Will plan hemodialysis tommorrow. PD catheter need to be removed before discharge Status: Acute (2) Hypertension: BP under control Status: Acute Qualifiers: Hypertension type: essential hypertension Qualified Code(s): I10 - Essential (primary) hypertension (3) Chronic anemia: Will dose epo with dialysis Status: Acute Attestations Medical Necessity Statement*: ESRD Coding Level of Care Code Acute [place] [employer] Operator for [facility] Diagnoses ESRD (end stage renal disease) N18.6 Hypertension I10 Hypertension type: essential hypertension Chronic anemia D64.9
--- NOTE | 2020-02-12 07:33 | PC.RESP ---
Smoking Cessation information sent to patient.
--- NOTE | 2020-02-13 10:50 | PC.SOCIAL ---
Spoke with Dr Loaiza and he wanted me to make sure that the appt with Dr Brito was scheduled for this week to discuss time to remove PD catheter. Annemarie indicates she will call patient to see if he can come in tomorrow instead of Feb 22, 2020 when was originally scheduled. Updated Dr Loaiza.
== END 2020-02-11 13:49 | disposition home or self-care (01) | DRG 673 ==
LOC: ER 06:53 → MEDSURG 07:28 → ICU 15:35 → MEDSURG 02-09 15:51
PROVIDERS: Emergency Medicine; Internal Medicine; Surgery; Admitting Provider Family Medicine; Visit Provider Student in an Organized Health Care Education/Training Program
PROC: 0JH63XZ Insertion of Tunneled Vascular Access Device into Chest Subcutaneous Tissue and Fascia, Percutaneous Approach (ICD-10-PCS; principal; 2020-02-08 12:00)
DX: I12.0 Hypertensive chronic kidney disease with stage 5 chronic kidney disease or end stage renal disease (principal); N18.6 End stage renal disease; Q61.3 Polycystic kidney, unspecified; E87.2 Acidosis; Z99.2 Dependence on renal dialysis; Z91.15 Patient's noncompliance with renal dialysis; M10.9 Gout, unspecified; K21.9 Gastro-esophageal reflux disease without esophagitis; Z86.73 Personal history of transient ischemic attack (TIA), and cerebral infarction without residual deficits; F12.90 Cannabis use, unspecified, uncomplicated; D63.1 Anemia in chronic kidney disease; E87.5 Hyperkalemia; E83.39 Other disorders of phosphorus metabolism; F17.210 Nicotine dependence, cigarettes, uncomplicated; Z79.82 Long term (current) use of aspirin; Z79.01 Long term (current) use of anticoagulants
CPT/HCPCS: 12345; 36415; 70450; 71045; 76000; 77001; 80053; 80500; 81001; 83540; 83550; 83605; 83735; 84100; 84443; 84481; 84484; 85025; 85610; 86706; 86803; 87040; 87340; 89050; 90935; 93005; 93306; 94664; 96374; 96375; 97161; 97165; 99282; 99283; J0360; J0610; J1644; J1815; J2270; J2310; J2704; J3010; J3490; J7030; Q3014

== ENCOUNTER 2020-02-18 14:36 | Emergency (ER) | payer MEDICARE, MEDICAID, SELFPAY ==
[2020-02-18 15:30] VITALS: BP 143/86; PULSE 70; RESP 18; TEMP 36.5; O2SAT 98; BMI 29.0
--- NOTE | 2020-02-18 15:49 | XRR_ITS ---
PROCEDURE INFORMATION: Exam: XR Chest, 1 View Exam date and time: 02/18/2020 3:50 PM Age: 54 years old Clinical indication: Cough and other: Weakness; Prior surgery TECHNIQUE: Imaging protocol: XR of the chest Views: 1 view. COMPARISON: CR XR chest 1V portable [id number] 02/09/2020 6:11 PM FINDINGS: Lungs: Unremarkable. No consolidation. Pleural space: Unremarkable. No pleural effusion. No pneumothorax. Heart/Mediastinum: Unremarkable. No cardiomegaly. Bones/joints: Unremarkable. A right central line is in place extending into the right atrium Similar findings are present comparing to prior examination XR/XR chest 1V portable [id number] IMPRESSION: No acute findings. Right central line in the right atrium
--- NOTE | 2020-02-18 15:56 | ECG_ITS ---
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 Measurements Intervals [place] Rate: 63 P: 30 SD: 155 QRS: -24 QRSD: 100 T: 12 QT: 433 QTc: 444 Interpretive Statements SINUS RHYTHM BORDERLINE LEFT AXIS DEVIATION [QRS AXIS < -20] Compared to ECG 02/09/2020 17:10:37 No significant changes Electronically Signed On 02-18-2020 19:15:17 CDT by China Wheat M.D. [email or web address]
[2020-02-18 15:58] LABS: Basophils % 0.4 %; Eosinophils # 0.1 10^3/uL (0.0-0.8); Eosinophils % 0.8 %; Hematocrit 26.5 % (42.0-52.0); Hemoglobin 8.3 g/dL (11.7-16.6); Lymphocytes # 1.4 10^3/uL (0.8-4.8); Lymphocytes % 14.1 %; Mean Corpuscular HGB Conc 31.3 g/dL (30.0-36.0); Mean Corpuscular Hemoglobin 31.2 pg (28.0-34.0); Mean Corpuscular Volume 99.6 fL (80-94); Mean Platelet Volume 9.3 fL (7.4-10.4); Monocytes # 0.9 10^3/uL (0.2-0.9); Monocytes % 9.5 %; Neutrophils # 7.26 10^3/uL (1.8-7.7); Neutrophils % 74.8 %; Nucleated Red Blood Cells % 0 %; Platelet Count 221 10^3/cmm (130-400); Red Blood Count 2.66 10^6/uL (4.1-5.3); Red Cell Distribution Width 15.1 % (12.1-15.1); White Blood Count 9.7 10^3/uL (4.0-10.0)
--- NOTE | 2020-02-18 15:59 | W.ED.WEAKNES ---
HPI - Weakness General: Chief complaint: Weakness Stated complaint: WEAKNESS Time Seen by Provider: 02/18/20 15:48 Source: patient Mode of arrival: EMS Limitations: no limitations History of Present Illness: HPI Narrative: 54-year-old gentleman presents to the emergency department with complaints of feeling unwell. He states that I just feel like crap . He also endorses some chest pain that started about 7 hours ago. Pain is nonradiating. He has no nausea or vomiting. He denies any dizziness or diaphoresis. He denies any fever, body aches, urinary symptoms. He just feels unwell and is unable to give much more of a history as he is a pretty poor historian Associated symptoms: Reports chest pain; Denies chills, dysuria, fever(s), headache(s), nausea or vomiting Review of Systems General: Reports: 10 or more systems reviewed and unremarkable except in HPI and below Const: Reports: fatigue; Denies: fever(s), chills or body aches Eyes: Denies: change in vision or blurry vision ENMT: Denies: throat pain, enlarged tonsils, odynophagia, hoarseness, mouth pain or swelling of lips/tongue Card: Reports: chest pain; Denies: palpitations, irregular heart rhythm, edema or swelling of feet/ankles Resp: Denies: dyspnea, productive cough or non-productive cough GI: Denies: abdominal pain, nausea or vomiting : Denies: flank pain, dysuria, urinary frequency, urinary urgency or urinary hesitancy Musc: Denies: neck pain, back pain or extremity swelling Skin/Breast: Denies: rash, pruritus or erythema Neuro: Denies: headache(s), numbness in extremities or weakness in extremities Endo: Denies: polyuria, polydipsia or tired all the time PFS ED PFSH: Medical History Bilateral hydronephrosis Bradycardia CVA (cerebral vascular accident) Dependence on peritoneal dialysis ESRD (end stage renal disease) Hypertension Incomplete bladder emptying Nicotine dependence Peritoneal dialysis catheter in situ Polycystic kidney disease Surgical History History of colonoscopy 2019 at [facility] History of surgical procedure Peritoneal dialysis catheter placement by Dr. Kamara 2015 Family History Mother Chronic kidney disease (CKD) Other Hypertension Social History Smoking and tobacco status: former smoker Alcohol intake: never Substance/Drug Use: current Substance/Drug use frequency: daily Substance/Drug use type: Marijuana Household members: family Housing: House Physical Exam Const: COMMON NORMALS: no acute distress, average body habitus, patient oriented x3, no limitations, healthy appearing, alert and well nourished Neck/C-Spine: COMMON NORMALS: full ROM, supple, no meningeal signs, no JVD and No carotid bruits Chest: COMMONS NORMALS: normal inspection of the chest and normal palpation of entire chest wall Resp: COMMON NORMALS: normal respiratory effort, No retractions, No use of accessory muscles, clear to auscultation bilaterally and percussion normal AUSCULTATION: clear to auscultation bilaterally PERCUSSION: percussion normal Cardio: COMMON NORMALS: no JVD, regular rate, regular rhythm, S1 normal heart sound present, S2 normal heart sound present, No gallops present (Cardio), No clicks present (Cardio), No murmurs present (Cardio), No rub (Cardio) and Peripheral pulses 2+ throughout RATE: regular rate RHYTHM: regular rhythm HEART SOUNDS: S1 normal heart sound present and S2 normal heart sound present PERIPHERAL PULSES: Peripheral pulses 2+ throughout GI: COMMON NORMALS: Normal to inspection, nondistended, normoactive bowel sounds present, Soft to palpation, non-tender, No hepatosplenomegaly present, no masses and no bruits PALPATION: Yes Soft to palpation and Yes No hepatosplenomegaly present Extremity: COMMON NORMALS: normal to inspection, full ROM, capillary refill normal, no calf tenderness and no pedal edema Neuro: COMMON NORMALS: patient oriented x3 SENSORIUM/ORIENTATION: Yes alert MENINGEAL SIGNS: Yes no meningeal signs Skin: COMMON NORMALS: no rashes or lesions noted, no wounds, turgor normal, no jaundice, no petechiae and no mottling GENERAL SKIN EXAM: no rashes or lesions noted and turgor normal Course Reevaluation(s): Reevaluation #1: Discussed his lab and imaging findings with him. Nothing acute. Has end-stage renal disease on his creatinine is at baseline. He also has chronically elevated troponin. Other labs unremarkable. We will discharge him home with no new orders. He voiced understanding and is in agreement with the plan Time: 18:57 Vital Signs: Vital signs: Vital Signs Temperature 97.4 F L 02/18/20 19:06 Pulse Rate 64 02/18/20 19:06 Respiratory Rate 18 02/18/20 19:06 Blood Pressure 139/92 02/18/20 19:06 Pulse Oximetry 97 02/18/20 19:06 MDM - Weakness MDM Narrative: Medical decision making narrative: 54-year-old male with end-stage renal disease on peritoneal dialysis presents to the emergency department with nonspecific complaints of generalized weakness. Evaluation in the emergency department was negative for acute findings. He is discharged home with no new orders. Medical Records: Attestation: I reviewed the patient's medical records. Lab Data: Attestation: I reviewed the patient's lab results. Labs: Lab Results 02/18/20 02/18/20 02/18/20 Range/Units 15:48 15:48 15:48 WBC 9.7 (4.0-10.0) 10^3/ uL RBC 2.66 L (4.1-5.3) 10^6/u L Hgb 8.3 L (11.7-16.6) g/dL Hct 26.5 L (42.0-52.0) % MCV 99.6 H (80-94) fL MCH 31.2 (28.0-34.0) pg MCHC 31.3 (30.0-36.0) g/dL RDW 15.1 (12.1-15.1) % Plt Count 221 (130-400) 10^3/c mm MPV 9.3 (7.4-10.4) fL Neut % (Auto) 74.8 % Lymph % (Auto) 14.1 % [place] % (Auto) 9.5 % Eos % (Auto) 0.8 % Baso % (Auto) 0.4 % Neut # (Auto) 7.26 (1.8-7.7) 10^3/u L Lymph # (Auto) 1.4 (0.8-4.8) 10^3/u L [place] # (Auto) 0.9 (0.2-0.9) 10^3/u L Eos # (Auto) 0.1 (0.0-0.8) 10^3/u L Baso # (Auto) 0.0 (0.0-0.1) 10^3/u L Nucleated RBC % (a uto) 0 % Nucleated RBCs # 0.0 /100WBC Sodium 134 L (136-145) mmol/L Potassium 5.8 H (3.5-5.1) mmol/L Chloride 97 L (98-107) mmol/L Carbon Dioxide 28 (22-29) mmol/L Anion Gap 14.8 (5-19) BUN 41 H (6-20) mg/dL Creatinine 7.1 H* (0.7-1.2) mg/dL GFR Calculation 8.1 L (90-130) mL/min Glucose 90 (65-115) mg/dL Calculated Osmolal ity 288 (285-295) mOsm/k g Calcium 8.7 (8.5-10.5) mg/dL Total Bilirubin 0.3 (0.15-1.2) mg/dL AST 16 (0-40) U/L ALT 13 (0-41) U/L Alkaline Phosphata se 67 (40-130) IU/L Creatine Kinase 33 L (39-308) U/L Troponin T Baselin e (0-15) ng/L Troponin T 120 Min joe (0-15) ng/L Delta Troponin T (0-10) ABS# C-Reactive Protein 18.6 H (0.0-4.9) mg/L Total Protein 5.5 L (6.6-8.7) g/dL Albumin 2.8 L (3.5-5.2) g/dL Globulin 2.7 (1.3-4.6) g/dL 02/18/20 02/18/20 Range/Units 15:48 18:00 WBC (4.0-10.0) 10^3/ uL RBC (4.1-5.3) 10^6/u L Hgb (11.7-16.6) g/dL Hct (42.0-52.0) % MCV (80-94) fL MCH (28.0-34.0) pg MCHC (30.0-36.0) g/dL RDW (12.1-15.1) % Plt Count (130-400) 10^3/c mm MPV (7.4-10.4) fL Neut % (Auto) % Lymph % (Auto) % [place] % (Auto) % Eos % (Auto) % Baso % (Auto) % Neut # (Auto) (1.8-7.7) 10^3/u L Lymph # (Auto) (0.8-4.8) 10^3/u L [place] # (Auto) (0.2-0.9) 10^3/u L Eos # (Auto) (0.0-0.8) 10^3/u L Baso # (Auto) (0.0-0.1) 10^3/u L Nucleated RBC % (a uto) % Nucleated RBCs # /100WBC Sodium (136-145) mmol/L Potassium (3.5-5.1) mmol/L Chloride (98-107) mmol/L Carbon Dioxide (22-29) mmol/L Anion Gap (5-19) BUN (6-20) mg/dL Creatinine (0.7-1.2) mg/dL GFR Calculation (90-130) mL/min Glucose (65-115) mg/dL Calculated Osmolal ity (285-295) mOsm/k g Calcium (8.5-10.5) mg/dL Total Bilirubin (0.15-1.2) mg/dL AST (0-40) U/L ALT (0-41) U/L Alkaline Phosphata se (40-130) IU/L Creatine Kinase (39-308) U/L Troponin T Baselin e 129 H* (0-15) ng/L Troponin T 120 Min joe 123.4 H (0-15) ng/L Delta Troponin T -5.6 L (0-10) ABS# C-Reactive Protein (0.0-4.9) mg/L Total Protein (6.6-8.7) g/dL Albumin (3.5-5.2) g/dL Globulin (1.3-4.6) g/dL Imaging Data^: CXR: Attestation: I personally reviewed and interpreted this imaging study as follows: Radiologist's impression: [facility] [address] [place] [address] XRay Report Signed Patient: Navneet Savage #: [id number] : 1965Acct#:[id number] Age/Sex: 54 / MADM Date: 02/18/20 Loc: ERRoom/Bed: Attending Dr: Ordering Provider/Ordering MD: Nathaly Menjivar MD, [facility] [place] Date of Service: 02/18/20 Procedure(s): XR chest 1V portable [id number] Accession Number(s): [id number] Report Number: [id number] PROCEDURE INFORMATION: Exam: XR Chest, 1 View Exam date and time: 02/18/2020 3:50 PM Age: 54 years old Clinical indication: Cough and other: Weakness; Prior surgery TECHNIQUE: Imaging protocol: XR of the chest Views: 1 view. COMPARISON: CR XR chest 1V portable [id number] 02/09/2020 6:11 PM FINDINGS: Lungs: Unremarkable. No consolidation. Pleural space: Unremarkable. No pleural effusion. No pneumothorax. Heart/Mediastinum: Unremarkable. No cardiomegaly. Bones/joints: Unremarkable. A right central line is in place extending into the right atrium Similar findings are present comparing to prior examination XR/XR chest 1V portable [id number] IMPRESSION: No acute findings. Right central line in the right atrium Dictated By:Ghanshyam Baires Signed By:Dustin Baires Date/Time:02/18/201616 DD/ 14 Discharge Plan Discharge Patient Disposition: Home Clinical Impression: Generalized weakness Condition: Stable Prescriptions: Continued aspirin 81 mg tablet,delayed release (DR/EC) 81 mg PO DAILY RF: 0 Zantac 150 mg PO DAILY RF: 0 hydralazine 25 mg tablet 25 mg PO TID Qty: 60 RF: 0 nifedipine 90 mg Tablet Extended Release 24hr 90 mg PO DAILY RF: 0 alfuzosin 10 mg Tablet Extended Release 24 Hr 10 mg PO DAILY RF: 0 RenaPlex-D 800 mcg-12.5 mg -2,000 unit Tablet 1 tab PO DAILY RF: 0 allopurinol 100 mg Tablet 100 mg PO DAILY RF: 0 sodium bicarbonate 650 mg Tablet 650 mg PO DAILY RF: 0 escitalopram oxalate 20 mg Tablet 20 mg PO BID RF: 0 clopidogrel 75 mg Tablet 75 mg PO DAILY RF: 0 simvastatin 40 mg Tablet 40 mg PO DAILY RF: 0 levothyroxine 25 mcg Tablet 25 mcg PO DAILY Qty: 30 RF: 0 trazodone 50 mg tablet 25 mg PO BEDTIME RF: 0 pantoprazole 40 mg tablet,delayed release (DR/EC) 40 mg PO DAILY RF: 0 losartan 100 mg tablet 100 mg PO DAILY RF: 0 finasteride 5 mg tablet 5 mg PO DAILY RF: 0 lanthanum 1,000 mg tablet,chewable See Rx Instructions .ROUTE .COMPLEX RF: 0 Fosrenol 1,000 mg powder in packet See Rx Instructions .ROUTE .COMPLEX RF: 0 Discharge Orders: Discharge Order (Routine); Ordered 02/18/20 Ordered By: Nathaly Menjivar Discharge Diet: Usual diet Discharge Activity: Increase activity as tolerated Patient Instructions: Weakness (ED) Activity Restrictions/Additional Instructions: Return for any new or worsening symptoms. Follow-up with your primary care provider within 3 days. 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
[2020-02-18 16:16] VITALS: BP 147/89; PULSE 70; RESP 16; O2SAT 94
[2020-02-18 16:21] LABS: Alanine Aminotransferase 13 U/L (0-41); Albumin Level 2.8 g/dL (3.5-5.2); Alkaline Phosphatase 67 IU/L (40-130); Anion Gap 14.8 (5-19); Aspartate Amino Transferase 16 U/L (0-40); Blood Urea Nitrogen 41 mg/dL (6-20); Calcium 8.7 mg/dL (8.5-10.5); Carbon Dioxide 28 mmol/L (22-29); Chloride 97 mmol/L (98-107); Globulin 2.7 g/dL (1.3-4.6); Glomerular Filtration Rate 8.1 mL/min (90-130); Glucose 90 mg/dL (65-115); Osmolality Calculated 288 mOsm/kg (285-295); Potassium 5.8 mmol/L (3.5-5.1); Sodium 134 mmol/L (136-145); Total Bilirubin 0.3 mg/dL (0.15-1.2); Total Protein 5.5 g/dL (6.6-8.7)
[2020-02-18 16:22] LABS: C Reactive Protein 18.6 mg/L (0.0-4.9); Creatine Phosphokinase 33 U/L (39-308)
[2020-02-18 16:27] LABS: Troponin(5th) Baseline 129 ng/L (0-15)
[2020-02-18 17:26] VITALS: BP 150/83; PULSE 86; RESP 17; O2SAT 95
--- NOTE | 2020-02-18 17:56 | ECG_ITS ---
[facility] Test Date: 2020-02-18 Pat Name: Navneet Savage Department: Room: Gender: Male Manager Endoscopy: : 1965 Requested By: Nathaly Menjivar I Order Number: [id number] Nate MD: China Wheat M.D. Measurements Intervals [place] Rate: 60 P: 32 VA: 154 QRS: -27 QRSD: 114 T: 18 QT: 426 QTc: 429 Interpretive Statements SINUS RHYTHM BORDERLINE LEFT AXIS DEVIATION [QRS AXIS < -20] MODERATE INTRAVENTRICULAR CONDUCTION DELAY [110+ ms QRS DURATION] Compared to ECG 02/18/2020 16:35:18 Intraventricular conduction delay now present Electronically Signed On 02-19-2020 17:59:50 CDT by China Wheat M.D. [email or web address]
[2020-02-18 18:16] VITALS: BP 149/86; RESP 17; O2SAT 93
[2020-02-18 18:38] LABS: Troponin 5 2HR Delta -5.6 ABS# (0-10)
[2020-02-18 18:39] LABS: Troponin 5 2HR 123.4 ng/L (0-15)
[2020-02-18 19:06] VITALS: BP 139/92; PULSE 64; RESP 18; TEMP 36.3; O2SAT 97
== END 2020-02-18 19:10 | disposition home or self-care (01) ==
PROVIDERS: Family Medicine; Emergency Provider Family Medicine
DX: R53.1 Weakness (principal); Z79.82 Long term (current) use of aspirin; Z79.02 Long term (current) use of antithrombotics/antiplatelets; Z86.73 Personal history of transient ischemic attack (TIA), and cerebral infarction without residual deficits; I12.0 Hypertensive chronic kidney disease with stage 5 chronic kidney disease or end stage renal disease; N18.6 End stage renal disease; Z87.891 Personal history of nicotine dependence
CPT/HCPCS: 12345; 36415; 71045; 80053; 82550; 84484; 85025; 86140; 93005; 99283

== ENCOUNTER 2020-02-19 21:10 | Emergency (ER) | payer MEDICARE, MEDICAID, SELFPAY ==
--- NOTE | 2020-02-19 21:26 | CTR_ITS ---
PROCEDURE INFORMATION: Exam: CT Head Without Contrast Exam date and time: 02/19/2020 9:35 PM Age: 54 years old Clinical indication: Weakness, extremity; Left; Additional info: Stroke symptoms TECHNIQUE: Imaging protocol: Computed tomography of the head without contrast. Radiation optimization: All CT scans at this facility use at least one of these dose optimization techniques: automated exposure control; mA and/or kV adjustment per patient size (includes targeted exams where dose is matched to clinical indication); or iterative reconstruction. Other technique: STROKE PROTOCOL was implemented. COMPARISON: CT head wo con* [id number] 02/08/2020 5:53 AM RADIATION DOSE METRICS: Total DLP (mGy-cm): 874.6 FINDINGS: Brain: Mild to moderate cerebral atrophy and ischemic leukoencephalopathy. Cerebral ventricles: No ventriculomegaly. Bones/joints: Unremarkable. No acute fracture. Paranasal sinuses: Visualized sinuses are unremarkable. No fluid levels. Mastoid air cells: Visualized mastoid air cells are well aerated. Vasculature: Severe calcified intracranial atherosclerotic vessel disease. Soft tissues: Unremarkable. CT/CT head wo con* [id number] IMPRESSION: No acute intracranial findings. ASSESSMENT: ASPECTS (Kelli Stroke Program Early CT Score) is 10. Radiation Dose CTDIVOL = (mGy): DLP = 874.6 (mGy-cm)
--- NOTE | 2020-02-19 21:41 | PC.NURSE ---
TAMIKO MORRISON VERBALIZED ASSUMED CARE OF PT.
[2020-02-19 21:58] LABS: Basophils % 0.1 %; Eosinophils % 0.4 %; Hematocrit 27.5 % (42.0-52.0); Hemoglobin 8.6 g/dL (11.7-16.6); Lymphocytes # 1.1 10^3/uL (0.8-4.8); Lymphocytes % 16.1 %; Mean Corpuscular HGB Conc 31.3 g/dL (30.0-36.0); Mean Corpuscular Volume 99.3 fL (80-94); Mean Platelet Volume 10.1 fL (7.4-10.4); Monocytes # 0.8 10^3/uL (0.2-0.9); Neutrophils % 71.1 %; Nucleated Red Blood Cells % 0 %; Platelet Count 238 10^3/cmm (130-400); Red Blood Count 2.77 10^6/uL (4.1-5.3); Red Cell Distribution Width 14.9 % (12.1-15.1); White Blood Count 6.9 10^3/uL (4.0-10.0)
[2020-02-19 22:00] VITALS: BP 149/86; PULSE 72; O2SAT 92
[2020-02-19 22:12] LABS: Alanine Aminotransferase 12 U/L (0-41); Alkaline Phosphatase 76 IU/L (40-130); Anion Gap 11.9 (5-19); Aspartate Amino Transferase 16 U/L (0-40); Blood Urea Nitrogen 18 mg/dL (6-20); Calcium 8.9 mg/dL (8.5-10.5); Carbon Dioxide 32 mmol/L (22-29); Chloride 98 mmol/L (98-107); Globulin 2.6 g/dL (1.3-4.6); Glomerular Filtration Rate 15.7 mL/min (90-130); Glucose 94 mg/dL (65-115); Osmolality Calculated 286 mOsm/kg (285-295); Potassium 4.9 mmol/L (3.5-5.1); Sodium 137 mmol/L (136-145); Total Bilirubin 0.2 mg/dL (0.15-1.2); Total Protein 5.6 g/dL (6.6-8.7)
--- NOTE | 2020-02-19 22:34 | ED_ITS ---
HPI - Neuro Symptoms/Deficit General: Chief Complaint: Neuro Symptoms/Deficit Stated Complaint: Numbness in Hands/face Time Seen by Provider: 02/19/20 21:21 Source: patient Mode of arrival: ambulatory Limitations: no limitations History of Present Illness: HPI Narrative: Patient is a 54-year-old gentleman with a history of end-stage renal disease on hemodialysis Wednesday and Wednesday, prior CVA x3. Presents to the emergency department with complaints of left sided facial numbness as well as numbness in his left upper extremity. He has residual left-sided weakness from his prior strokes. Symptoms have not progressed, and are unchanged. Wanted to be checked to make sure he did not have a CVA so he presented to the emergency department Onset (ago): hour(s) (5) Location: left face and left arm History of same: Yes Severity: mild Quality: numb and tingling Relieving factors: none Exacerbating factors: none Context: sudden onset On Anticoagulants: No Associated symptoms: Reports tingling; Deny chest pain, cough, diaphoresis, fevers/chills, headache(s), anorexia, malaise, nausea, seizures, short of breath, syncope, vertigo, vomiting or weakness Review of Systems General: Reports: 10 or more systems reviewed and unremarkable except in HPI and below Const: Denies: malaise or diaphoresis Eyes: Denies: change in vision or blurry vision ENMT: Denies: throat pain, enlarged tonsils, odynophagia, hoarseness, mouth pain or swelling of lips/tongue Card: Denies: chest pain or syncope Resp: Denies: dyspnea, productive cough or non-productive cough GI: Denies: nausea or vomiting : Denies: flank pain, dysuria, urinary frequency, urinary urgency or urinary hesitancy Musc: Denies: neck pain, back pain or extremity swelling Skin/Breast: Denies: rash, pruritus or erythema Neuro: Denies: headache(s) or vertigo Endo: Denies: polyuria, polydipsia or tired all the time [facility] ED PFSH: Medical History (Reviewed 02/19/20 @ 22:54 by Nathaly Menjivar MD, [facility] [place] Bilateral hydronephrosis Bradycardia CVA (cerebral vascular accident) Dependence on peritoneal dialysis ESRD (end stage renal disease) Hypertension Incomplete bladder emptying Nicotine dependence Peritoneal dialysis catheter in situ Polycystic kidney disease Surgical History History of colonoscopy 2020 at [facility] History of surgical procedure Peritoneal dialysis catheter placement by Dr. Kamara 2015 Family History Mother Chronic kidney disease (CKD) Other Hypertension Social History Smoking and tobacco status: former smoker Alcohol intake: never Household members: family Housing: House NIH stroke score NIHSS: Level Of Consciousness - 1a: 0 Level Of Consciousness Questions - 1b: Both Correct Level Of Consciousness Commands - 1c: Both Correct Best Gaze - 2: Normal Visual Kahn - 3: No Visual Loss Facial Palsy - 4: Minor Paralysis Motor Arm Right - 5: No Drift Motor Arm Left - 5: No Drift Motor Leg Right - 6: No Drift Motor Leg Left - 6: No Drift Limb Ataxia - 7: Absent Sensory - 8: Normal Best Language - 9: No Aphasia Dysarthia - 10: Normal Extinction And Inattention - 11: 0 Score: Total Score: 1 Physical Exam Const: COMMON NORMALS: no acute distress, average body habitus, patient oriented x3, no limitations, healthy appearing, alert and well nourished HENMT: COMMON NORMALS: normocephalic, atraumatic and moist oral mucous membranes HEAD & SCALP: normocephalic and atraumatic OTHER: Left facial droop. Patient states he has facial droop from his prior CVA Eye: COMMON NORMALS: Equal, round and reactive pupils present, EOMs intact bilaterally, conjunctivae normal and no scleral icterus CONJUNCTIVA: Yes conjunctivae normal PUPIL: Yes Equal, round and reactive pupils present Neck/C-Spine: COMMON NORMALS: no meningeal signs and no JVD Resp: COMMON NORMALS: normal respiratory effort, No retractions, No use of accessory muscles, clear to auscultation bilaterally and percussion normal AUSCULTATION: clear to auscultation bilaterally PERCUSSION: percussion normal Cardio: COMMON NORMALS: no JVD, regular rate, regular rhythm, S1 normal heart sound present, S2 normal heart sound present, No gallops present (Cardio), No clicks present (Cardio), No murmurs present (Cardio), No rub (Cardio) and Peripheral pulses 2+ throughout RATE: regular rate RHYTHM: regular rhythm HEART SOUNDS: S1 normal heart sound present and S2 normal heart sound present PERIPHERAL PULSES: Peripheral pulses 2+ throughout GI: COMMON NORMALS: Normal to inspection, nondistended, normoactive bowel sounds present, Soft to palpation, non-tender, No hepatosplenomegaly present, no masses and no bruits PALPATION: Yes Soft to palpation and Yes No hepatosplenomegaly present Extremity: COMMON NORMALS: normal to inspection, full ROM, capillary refill normal, no calf tenderness and no pedal edema Neuro: COMMON NORMALS: patient oriented x3 SENSORIUM/ORIENTATION: Yes alert MENINGEAL SIGNS: Yes no meningeal signs Skin: COMMON NORMALS: no rashes or lesions noted, no wounds, turgor normal, no jaundice, no petechiae and no mottling GENERAL SKIN EXAM: no rashes or lesions noted and turgor normal Course Reevaluation(s): Reevaluation #1: Discussed his lab and imaging findings with him. Negative for acute findings. Also discussed my conversation with the neurologist with him. Patient is not a candidate for TPA due to time and his NIHSS. He is already on maximal medical therapy for CVA and no need for additional medications. Neurologist also advised against admission as there is nothing to be gained. He voiced understanding and is in agreement with the plan Time: 22:34 Consultations: Consultation #1: Dr. Decker, neurologist. Patient has a low NIH SS, he is out of the window for therapeutic TPA administration, he is already on maximal medical therapy so patient can be discharged home from a neurologic point of view. He cannot get a CTA as he is a dialysis patient. He can be discharged home. No need for admission. Time: 21:39 MDM - Neuro Symptoms/Deficit MDM Narrative: Medical decision making narrative: 54-year-old patient with end-stage renal disease on hemodialysis and prior CVAs presents to the emergency department with numbness and tingling in his left face and left upper extremity. He wanted to be checked out to be sure he was not having another CVA. Head CT negative, he was out of the window for TPA, and is on the right medications. He is therefore discharged home with no new orders. Medical Records: Attestation: I reviewed the patient's medical records. Lab Data: Attestation: I reviewed the patient's lab results. Labs: Lab Results 02/19/20 02/19/20 Range/Units 21:30 21:30 WBC 6.9 (4.0-10.0) 10^3/ uL RBC 2.77 L (4.1-5.3) 10^6/u L Hgb 8.6 L (11.7-16.6) g/dL Hct 27.5 L (42.0-52.0) % MCV 99.3 H (80-94) fL MCH 31.0 (28.0-34.0) pg MCHC 31.3 (30.0-36.0) g/dL RDW 14.9 (12.1-15.1) % Plt Count 238 (130-400) 10^3/c mm MPV 10.1 (7.4-10.4) fL Neut % (Auto) 71.1 % Lymph % (Auto) 16.1 % [place] % (Auto) 12.0 % Eos % (Auto) 0.4 % Baso % (Auto) 0.1 % Neut # (Auto) 4.90 (1.8-7.7) 10^3/u L Lymph # (Auto) 1.1 (0.8-4.8) 10^3/u L [place] # (Auto) 0.8 (0.2-0.9) 10^3/u L Eos # (Auto) 0.0 (0.0-0.8) 10^3/u L Baso # (Auto) 0.0 (0.0-0.1) 10^3/u L Nucleated RBC % (a uto) 0 % Nucleated RBCs # 0.0 /100WBC Sodium 137 (136-145) mmol/L Potassium 4.9 (3.5-5.1) mmol/L Chloride 98 (98-107) mmol/L Carbon Dioxide 32 H (22-29) mmol/L Anion Gap 11.9 (5-19) BUN 18 (6-20) mg/dL Creatinine 4.0 H (0.7-1.2) mg/dL GFR Calculation 15.7 L (90-130) mL/min Glucose 94 (65-115) mg/dL Calculated Osmolal ity 286 (285-295) mOsm/k g Calcium 8.9 (8.5-10.5) mg/dL Total Bilirubin 0.2 (0.15-1.2) mg/dL AST 16 (0-40) U/L ALT 12 (0-41) U/L Alkaline Phosphata se 76 (40-130) IU/L Total Protein 5.6 L (6.6-8.7) g/dL Albumin 3.0 L (3.5-5.2) g/dL Globulin 2.6 (1.3-4.6) g/dL Imaging Data^: CT Head: Attestation: I personally reviewed and interpreted this imaging study as follows: Radiologist's impression: [address] [address] [address] Scan Report Signed Patient: Navneet Savage #: [id number] : 1965Acct#:[id number] Age/Sex: 54 / MADM Date: 02/19/20 Loc: ERRoom/Bed: Attending Dr: Ordering Provider/Ordering MD: Nathaly Menjivar MD, [facility] [place] Date of Service: 02/19/20 Procedure(s): CT head wo con* [id number] Accession Number(s): [id number] Report Number: [id number] PROCEDURE INFORMATION: Exam: CT Head Without Contrast Exam date and time: 02/19/2020 9:35 PM Age: 54 years old Clinical indication: Weakness, extremity; Left; Additional info: Stroke symptoms TECHNIQUE: Imaging protocol: Computed tomography of the head without contrast. Radiation optimization: All CT scans at this facility use at least one of these dose optimization techniques: automated exposure control; mA and/or kV adjustment per patient size (includes targeted exams where dose is matched to clinical indication); or iterative reconstruction. Other technique: STROKE PROTOCOL was implemented. COMPARISON: CT head wo con* [id number] 02/08/2020 5:53 AM RADIATION DOSE METRICS: Total DLP (mGy-cm): 874.6 FINDINGS: Brain: Mild to moderate cerebral atrophy and ischemic leukoencephalopathy. Cerebral ventricles: No ventriculomegaly. Bones/joints: Unremarkable. No acute fracture. Paranasal sinuses: Visualized sinuses are unremarkable. No fluid levels. Mastoid air cells: Visualized mastoid air cells are well aerated. Vasculature: Severe calcified intracranial atherosclerotic vessel disease. Soft tissues: Unremarkable. CT/CT head wo con* [id number] IMPRESSION: No acute intracranial findings. ASSESSMENT: ASPECTS ([place] Stroke Program Early CT Score) is 10. Radiation Dose CTDIVOL = (mGy): DLP = 874.6 (mGy-cm) Dictated By:Bear Barrios MD Signed By:Bear Barrios MDSigned Date/Time:02/19/202147 EKG Data^: EKG 1: Attestation: I personally reviewed and interpreted this EKG as follows: EKG interpretation date: 02/19/20 EKG interpretation time: 21:54 Prior EKG tracings: not available for review Interpretation: Normal sinus rhythm. Heart rate [address] changes. No STEMI. Discharge Plan Discharge Patient Disposition: Home Clinical Impression: Stroke-like symptoms Condition: Stable Prescriptions: Continued aspirin 81 mg tablet,delayed release (DR/EC) 81 mg PO DAILY RF: 0 hydralazine 25 mg tablet 25 mg PO TID Qty: 60 RF: 0 clonidine 0.3 mg/24 hr patch weekly 0.3 mg topical Q7D RF: 0 nifedipine 90 mg Tablet Extended Release 24hr 90 mg PO DAILY RF: 0 alfuzosin 10 mg Tablet Extended Release 24 Hr 10 mg PO DAILY RF: 0 RenaPlex-D 800 mcg-12.5 mg -2,000 unit Tablet 1 tab PO DAILY RF: 0 allopurinol 100 mg Tablet 100 mg PO DAILY RF: 0 sodium bicarbonate 650 mg Tablet 650 mg PO DAILY RF: 0 escitalopram oxalate 20 mg Tablet 20 mg PO BID RF: 0 clopidogrel 75 mg Tablet 75 mg PO DAILY RF: 0 simvastatin 40 mg Tablet 40 mg PO DAILY RF: 0 pantoprazole 40 mg tablet,delayed release (DR/EC) 40 mg PO DAILY RF: 0 losartan 100 mg tablet 100 mg PO DAILY RF: 0 finasteride 5 mg tablet 5 mg PO DAILY RF: 0 Fosrenol 1,000 mg powder in packet See Rx Instructions .ROUTE .COMPLEX RF: 0 Discharge Orders: Discharge Order (Routine); Ordered 02/19/20 Ordered By: Nathaly Menjivar Discharge Diet: Usual diet Discharge Activity: Increase activity as tolerated Patient Instructions: Paresthesia (ED) Activity Restrictions/Additional Instructions: Return for any new or worsening symptoms. Follow-up with your primary care provider within 3 days. Continue your home medications as prescribed. You are already on the maximal medicines for stroke so we will continue those. Coding Level of Care Code ED Traffic Or System Dispatcher for Eric Sandhu
[2020-02-19 22:45] VITALS: BP 149/92; PULSE 81; RESP 20; O2SAT 93
[2020-02-19 23:05] VITALS: BP 127/79; PULSE 75; RESP 14; O2SAT 94; BMI 29.3
[2020-02-19 23:19] LABS: INR 0.93 (0.8-1.2)
[2020-02-19 23:20] LABS: Partial Thromboplastin Time 35.7 SECONDS (23.9-36.7)
[2020-02-19 23:32] LABS: Glucose Point of Care 89 mg/dL (70-110)
== END 2020-02-19 23:06 | disposition home or self-care (01) ==
PROVIDERS: Emergency Provider Family Medicine
DX: R20.0 Anesthesia of skin (principal); Z79.82 Long term (current) use of aspirin; Z79.02 Long term (current) use of antithrombotics/antiplatelets; Z86.73 Personal history of transient ischemic attack (TIA), and cerebral infarction without residual deficits; I12.0 Hypertensive chronic kidney disease with stage 5 chronic kidney disease or end stage renal disease; N18.6 End stage renal disease; Z99.2 Dependence on renal dialysis
CPT/HCPCS: 12345; 36416; 70450; 80053; 82962; 85025; 85610; 85730; 99283

== ENCOUNTER → 2020-02-23 11:04 | Outpatient (BNVA) | payer MEDICARE, MEDICAID, SELFPAY | PROVIDERS: Visit Provider Surgery | DX: N18.6 End stage renal disease (principal) | CPT/HCPCS: 87635 ==

== ENCOUNTER 2020-02-27 06:49 | Day surgery (SDC) | payer MEDICARE, MEDICAID, SELFPAY ==
[2020-02-26 11:13] VITALS: BMI 29.0
--- NOTE | 2020-02-27 06:24 | XR_ITS ---
WS: [id number] CHEST XRAY TECHNIQUE: Portable chest. CLINICAL INFORMATION: Right IJ HD catheter dysfunction COMPARISON: February 18, 2020 FINDINGS: Right dual-lumen IJ catheter. Tips in the mid and distal SVC. No pneumothorax. Central veno us catheter appears unchanged since February 18, 2020 Heart: Normal cardiac silhouette. Lungs: Lungs are clear. No consolidation or pleural effusion. Bones: Normal visualized bony structures. XR/XR chest 1V portable [id number] IMPRESSION: Stable right dual-lumen IJ catheter with tips in the mid and distal SVC.
[2020-02-27 07:04] VITALS: BP 152/90; PULSE 71; RESP 18; TEMP 37.4; O2SAT 98
[2020-02-27] MEDS: sodium chloride 0.9% 1,000 ML 30 ML IV (07:34)
--- NOTE | 2020-02-27 07:56 | ANES.PREANE2 ---
Pre-Anesthetic Assessment Pre-Anesthetic Assessment: Height/Weight: Height 1.68 m Weight 81.647 kg Temp Pulse Resp BP Pulse Ox 99.3 F 71 18 152/90 98 02/27/20 07:04 02/27/20 07:04 02/27/20 07:04 02/27/20 07:04 02/27/20 07:04 Preop Diagnosis: Peritoneal dialysis catheter in place Proposed Procedure: Operation Date: 02/27/20 08:25 Proposed Procedures p Peritoneal Catheter Removal 28668 N18.6(Not Applicable) - Joesph Brito MD s Dialysis Catheter Revision(Not Applicable) - Joesph Brito MD Familial anesthetic complications: none Was Beta Mat taken within 24 hours: N/A Last intake: Intake Last Liquid Date 02/27/20 Last Liquid Time 06:00 Last Solid Date 02/27/20 Last Solid Time 00:00 Social: Social History: Tobacco Comment: chews Exam: Pre-Anes Outpt Exam: alert, oriented x 3, clear to auscultation bilaterally and regular rate & rhythm Airway: Cervical ROM: WNL MP: 3 Dentition: Other (no upper teeth, poor dentition) Pulmonary: Pulmonary: None reported CV/HEM: CV/HEM: None reported : : Chronic renal failure (polycystic kidneys) GI: GI: GERD Metabolic: Metabolic: Hyperlipidemia and Thyroid Neuropsych: Neuropsych: CVA (X3 (residual L sided weakness)) Comments: 02/18 patient went to ER with stroke-like symptoms (L UE and L facial weakness). CT head was negative, he was out of window for tpa and could not have CTA due to being on dialysis. Neuro stated he was already on maximal medical mgmt and nothing else to do Anesthetic Plan: ASA status: 4 Anesthesia: Choice Risk of > 500 ml blood loss (7ml/kg in children): No Meds/Allergies Current Medications: Current Medications Generic Name Dose Route Start Last Admin Trade Name Freq PRN Reason Stop Dose Admin Sodium Chloride 1,000 mls @ 30 ml s/hr 02/27/20 07:00 02/27/20 07:34 Sodium Chloride 0.9% IV 02/28/20 06:59 30 mls/hr .Q24H MINNA Administration PFSH Anesthesia PFSH: Medical History (Updated 02/27/20 @ 00:00 by ) Bilateral hydronephrosis Bradycardia CVA (cerebral vascular accident) Dependence on peritoneal dialysis ESRD (end stage renal disease) Hypertension Incomplete bladder emptying Nicotine dependence Peritoneal dialysis catheter in situ Polycystic kidney disease Surgical History History of colonoscopy 2019 at [facility] History of surgical procedure Peritoneal dialysis catheter placement by Dr. Kamara 2015 Family History (Reviewed 02/19/20 @ 22:54 by Nathaly Menjivar MD, [facility] [place]) Mother Chronic kidney disease (CKD) Other Hypertension Social History Smoking and tobacco status: former smoker Alcohol intake: never Household members: family Housing: House Data Anesthesia CBC & Chem 7: 02/27/20 07:25 Cardiac Studies: No Data to Display
[2020-02-27 08:02] LABS: Alanine Aminotransferase 8 U/L (0-41); Albumin Level 2.6 g/dL (3.5-5.2); Alkaline Phosphatase 76 IU/L (40-130); Anion Gap 13.3 (5-19); Aspartate Amino Transferase 14 U/L (0-40); Blood Urea Nitrogen 29 mg/dL (6-20); Calcium 9.2 mg/dL (8.5-10.5); Carbon Dioxide 28 mmol/L (22-29); Chloride 99 mmol/L (98-107); Glomerular Filtration Rate 10.4 mL/min (90-130); Glucose 98 mg/dL (65-115); Osmolality Calculated 288 mOsm/kg (285-295); Potassium 4.3 mmol/L (3.5-5.1); Sodium 136 mmol/L (136-145); Total Bilirubin 0.2 mg/dL (0.15-1.2); Total Protein 5.6 g/dL (6.6-8.7)
--- NOTE | 2020-02-27 09:06 | W.PM.OPSUD ---
Surgery/Procedure H&P Update DATE OF PROCEDURE: February 27, 2020 DATE H&P PERFORMED: 02/15/20 H&P UPDATE INFORMATION: I have reviewed H&P completed within last 30 days, I have examined patient prior to procedure and Changes to prior documentation as noted here (My office received a call from 1 of the nurses at the dialysis unit yesterday that the hemodialysis catheter needs to be replaced. There was no obvious explanation except for the cuff of the catheter was out few centimeters and it has been the case since the catheter was inserted. I try to get a hold of Dr. Candelaria today but I was told he is out of town and the dialysis unit is closed for today. After talking with the patient he recalled no issues with the dialysis that he had yesterday except of some minor bleeding around the catheter which can be expected. As of now since I do not have appropriate indication to remove the catheter or to replace it I will proceed with removal of the PD catheter as planned before and will plan to communicate with Dr. Candelaria service once he is back in town and will proceed accordingly.) PREOP DIAGNOSIS: Peritoneal dialysis catheter in place PRIMARY INDICATION FOR PROCEDURE: The same PLANNED PROCEDURE: Operation Date: 02/27/20 08:25 Proposed Procedures p Peritoneal Catheter Removal 24714 N18.6 07334(Not Applicable) - Joesph Brito MD s Dialysis Catheter Revision(Not Applicable) - Joesph Brito MD
[2020-02-27] MEDS: levofloxacin-dextrose 5 % 500 MG/100 ML PREMIX 100 MG IV (09:20)
[2020-02-27] MEDS: lidocaine 2% INJ 20 mL INJECTION (09:33)
--- NOTE | 2020-02-27 10:09 | PM.OP ---
Operative Report Date of procedure: February 27, 2020 Pre-op Diagnosis: Peritoneal dialysis catheter in place Post-op Findings: The same without evidence of infection Procedure Done: Explantation of peritoneal dialysis catheter. Specimens removed/disposition: Peritoneal dialysis catheter for gross pathology Surgeon: Joesph Brito Ui Developer With [employer]: transportation engineering technician Amanda and medical student Mayra Anesthesia: MAC (Dr. Deasi) Estimated blood loss (mL): 10 Complications: No immediate complication Condition: stable Disposition: same day Brief History: This is a pleasant 54 years old gentleman with history of end-stage renal disease requiring dialysis. At some point patient has been on peritoneal dialysis but that seems to be not consistent with the patient. And he required hemodialysis catheter placement through the right IJ by me recently And has been functioning well.In the interim as the PD catheter was undesired I was consulted for explantation. Informed consent per chart Procedure: After identifying the patient in the holding area, was taken to the operating room, placed in supine position, IV propofol was given by anesthesia, patient was already on antibiotics Time-out was done verifying the patient's name/date of /planned procedure and destination after the procedure, all were in agreement Prep and drape of the abdomen was done under the usual sterile technique, after palpation of the site of the catheter exit towards the right side of the abdomen using a hemostat to freed adhesions surrounding the exit site and the catheter was further dissected at the subcutaneous layer Attention was deviated towards the site of the cuff of the catheter were a longitudinal skin incision was done coinciding with the previous longitudinal scar and dissection was carried all the way to the site of the catheter towards the peritoneal cavity where excessive scar tissues were taken downUnder direct visualization and the cuff was freed from all the surrounding tissues and at that point the catheter was explanted without difficulty leaving behind about an inch in diameter fascial defect. It was closed in an interrupted [id number] fashion using #1 PDS under direct visualization. There was no evidence of infection or pus. Copious irrigation was done of both wounds followed by 3-0 Vicryl for closure then 4-0 Monocryl then Dry dressing was then applied. The catheter was passed to the circulating nurse for gross pathology Count was completed at the end of the procedure. Upper chest hemodialysis catheter was checked by me and was in good position And a fresh dressing was applied after cleaning The exteriorized part of the catheter. Patient tolerated the procedure well and was taken to the PACU in stable condition. I was present for the whole entire procedure
[2020-02-27 10:27] VITALS: BP 103/67; PULSE 50; RESP 16; TEMP 36.6; O2SAT 95
[2020-02-27 10:42] VITALS: BP 102/67; PULSE 52; RESP 15; TEMP 36.6; O2SAT 95
--- NOTE | 2020-02-27 11:05 | ANE.PACU2 ---
Inpatient post-anesthesia follow up: Airway intact: Yes Vital signs: Temperature 98 F Pulse Rate 52 Respiratory Rate 15 Blood Pressure 102/67 Pulse Oximetry 95 Oxygen Delivery Me thod Room Air Oxygen Flow Rate Fraction of Inspir ed Oxygen Hydration adequate: Yes Nausea and vomiting: No Pain level: 1 Mental status: Baseline
== END 2020-02-27 11:05 | disposition home or self-care (01) ==
PROVIDERS: Anesthesiology; Visit Provider Surgery
PROC: (CPT 49422; principal; 2020-02-27 08:25)
DX: Z45.2 Encounter for adjustment and management of vascular access device (principal); K21.9 Gastro-esophageal reflux disease without esophagitis; E78.5 Hyperlipidemia, unspecified; Z86.73 Personal history of transient ischemic attack (TIA), and cerebral infarction without residual deficits; I12.0 Hypertensive chronic kidney disease with stage 5 chronic kidney disease or end stage renal disease; N18.6 End stage renal disease; Z99.2 Dependence on renal dialysis; Z87.891 Personal history of nicotine dependence
CPT/HCPCS: 36590; 12345; 36415; 71045; 80053; 88300; J1956; J2250; J2704; J3010; J7030

== ENCOUNTER → 2020-03-08 09:50 | Outpatient (BNVA) | payer MEDICARE, MEDICAID, SELFPAY | PROVIDERS: Visit Provider Surgery | DX: Z11.59 Encounter for screening for other viral diseases (principal); R10.9 Unspecified abdominal pain | CPT/HCPCS: 87635 ==

== ENCOUNTER 2020-03-13 07:22 | Day surgery (SDC) | payer MEDICARE, MEDICAID, SELFPAY ==
[2020-03-12 12:50] VITALS: BMI 29.0
--- NOTE | 2020-03-13 | SCC_ITS ---
Procedure Done: Exchange of 21 cm 16 [place] AshSplit hemodialysis catheter in the right internal jugular vein 88.3 seconds of fluoroscopic guidance, for a cumulative dose of 5.47 mGy, was provided to Dr. Kamara by the radiology department. C-arm images of the chest were saved for the patient's permanent record. [facility]
--- NOTE | 2020-03-13 07:40 | W.PM.OPSUD ---
Surgery/Procedure H&P Update DATE OF PROCEDURE: March 13, 2020 DATE H&P PERFORMED: 03/08/20 H&P UPDATE INFORMATION: I have reviewed H&P completed within last 30 days, I have examined patient prior to procedure and No changes to prior documentation PREOP DIAGNOSIS: Malposition tunneled hemodialysis catheter PLANNED PROCEDURE: Operation Date: 03/13/20 08:55 Proposed Procedures p Revision of hemodialysis catheter 96888 N18.6(Not Applicable) - Benson Kamara MD
[2020-03-13 07:44] VITALS: BP 178/101; PULSE 81; RESP 18; TEMP 36.4; O2SAT 97
[2020-03-13] MEDS: sodium chloride 0.9% 1,000 ML 30 ML IV (07:48)
--- NOTE | 2020-03-13 07:57 | SC_ITS ---
WS: [id number] C-arm fluoroscopy of the right chest for dialysis catheter placement, 03/13/2020 Clinical Data: Exchange of 21 cm 16 [place] AshSplit hemodialysis catheter i Comparison: Portable chest, 02/27/2020. Findings: The right dialysis catheter has been exchanged. The distal portion of the catheter ends in the superi or vena cava. SC/C-arm FL for CVA [id number] Impression: Satisfactory exchange of dialysis catheter.
--- NOTE | 2020-03-13 08:01 | P.ANESASSM_ITS ---
Pre-Anesthetic Assessment Pre-Anesthetic Assessment: Height/Weight: Height 1.68 m Weight 81.647 kg Temp Pulse Resp BP Pulse Ox 97.6 F 81 18 178/101 97 03/13/20 07:44 03/13/20 07:44 03/13/20 07:44 03/13/20 07:44 03/13/20 07:44 Preop Diagnosis: Malposition tunneled hemodialysis catheter Proposed Procedure: Operation Date: 03/13/20 08:55 Proposed Procedures p Revision of hemodialysis catheter 55260 N18.6(Not Applicable) - Benson Kamara MD Familial anesthetic complications: None Was Beta Mat taken within 24 hours: N/A Last intake: Intake Last Liquid Date 03/12/20 Last Liquid Time 23:00 Last Solid Date 03/12/20 Last Solid Time 17:00 Social: Social History: Tobacco (chews) and No alcohol Exam: Pre-Anes Outpt Exam: alert, oriented x 3, clear to auscultation bi laterally and regular rate & rhythm Airway: Cervical ROM: WNL MP: 3 Dentition: Other (poor dentition, no upp er teeth) CV/HEM: CV/HEM: HTN : : Chronic renal Insufficiency (polycystic kidneys) GI: GI: GERD Metabolic: Metabolic: Hyperlipidemia and Thyroid Neuropsych: Neuropsych: CVA (X3 (residual L sided weakness)) Anesthetic Plan: ASA status: 4 Anesthesia: MAC Risk of > 500 ml blood loss (7ml/kg in children): No Meds/Allergies Current Medications: Current Medications Generic Name Dose Route Start Last Admin Trade Name Freq PRN Reason Stop Dose Admin Sodium Chloride 1,000 mls @ 30 ml s/hr 03/13/20 07:30 03/13/20 07:48 Sodium Chloride 0.9% IV 03/14/20 07:29 30 mls/hr .Q24H MINNA Administration PFSH Anesthesia PFSH: Medical History (Updated 03/12/20 @ 18:09 by Benson Kamara MD) Bilateral hydronephrosis Bradycardia CVA (cerebral vascular accident) Dependence on peritoneal dialysis ESRD (end stage renal disease) Hypertension Incomplete bladder emptying Nicotine dependence Peritoneal dialysis catheter in situ Polycystic kidney disease Surgical History (Updated 03/12/20 @ 18:12 by Benson Kamara MD) History of colonoscopy 2019 at [facility] History of surgical procedure Peritoneal dialysis catheter placement by Dr. Kamara 2015 S/P hemodialysis catheter insertion Family History Mother Chronic kidney disease (CKD) Other Hypertension Social History Smoking and tobacco status: former smoker Alcohol intake: never Household members: family Housing: House Data Anesthesia Cardiac Studies: No Data to Display
[2020-03-13] MEDS: vancomycin 1,000 MG in sodium chloride 0.9% 250 ML 250 MG IV (08:22)
[2020-03-13] MEDS: lidocaine 1% INJ 20 mL INTRAVESIC (08:47)
[2020-03-13] MEDS: heparin, porcine 1,000 unit/mL INJ 10 mL 6000 UNIT IRRIGATION (08:48)
[2020-03-13 09:23] VITALS: BP 126/81; PULSE 62; RESP 18; TEMP 36.4; O2SAT 92
[2020-03-13 09:53] VITALS: BP 160/80; PULSE 74; RESP 18; TEMP 36.4; O2SAT 97
--- NOTE | 2020-03-13 10:33 | SUR.PHASEII ---
This nurse changed saturated dressing over dialysis catheter before discharging patient. 4x4 gauze and foam tape was used to create a pressure dressing. Patient is headed to dialysis clinic immediately after discharge where they will observe dressing. Patient was educated to call 's office if bleeding is significant before 5:00pm and to come to the ED if after 5:00pm.
--- NOTE | 2020-03-13 10:35 | ANE.PACU2 ---
Inpatient post-anesthesia follow up: Airway intact: Yes Vital signs: Temperature 97.6 F Pulse Rate 74 Respiratory Rate 18 Blood Pressure 160/80 Pulse Oximetry 97 Oxygen Delivery Me thod Room Air Oxygen Flow Rate Fraction of Inspir ed Oxygen Hydration adequate: Yes Nausea and vomiting: No Pain level: 1 Mental status: Baseline
--- NOTE | 2020-03-13 10:41 | P.OP_ITS ---
Operative Report Date of procedure: March 13, 2020 Pre-op Diagnosis: Malposition tunneled hemodialysis catheter Post-op Diagnosis: Malpositioned tunneled hemodialysis catheter in the right internal jugular vein with the cuff exterior to the skin Procedure Done: Exchange of 21 cm 16 [place]ral[place] AshSplit hemodialysis catheter in the right internal jugular vein Fluoroscopic guidance and interpretation for placement of catheter Pathology: none sent Surgeon: Benson Kamara Anesthesia: MAC Condition: stable Disposition: same day Procedure: The patient was taken to the operating room and placed under MAC after IV antibiotics had been administered in a Trendelenburg position. The right chest was prepped and draped in a sterile manner and catheter with the cuff exterior to the skin incision was wrapped in gauze soaked with Betadine. The skin incision on the right internal jugular vein was opened using 11 blade and the catheter was dissected free from the surrounding scar tissue and skeletonized and divided, the proximal portion of the catheter was removed from the subcutaneous tunnel on the right chest. A guidewire was passed through one of the channels in the distal portion of the divided catheter and the catheter was removed. Serial dilators were passed over the guidewire under fluoroscopy. A new 21 cm long 16 [place] Bam Split catheter was passed through the subcutaneous tissue on the right chest and exited through the incision on the right neck. Dilator sheath was passed over the guidewire and the inner sheath and guidewire was removed and the distal end of the catheter was introduced into the internal jugular vein as the peel-away sheath was removed. Fluoroscopy confirmed good position of the tip of the catheter. The skin incision in the neck was closed using 4-0 Monocryl and surgical glue. The catheter sutured to t he skin using 3-0 Prolene. Pressure dressings were applied. Patient tolerated the procedure well.
== END 2020-03-13 10:36 | disposition home or self-care (01) ==
PROVIDERS: Visit Provider Surgery
PROC: (CPT 36581; principal; 2020-03-13 08:55)
DX: T82.42XA Displacement of vascular dialysis catheter, initial encounter (principal); F17.220 Nicotine dependence, chewing tobacco, uncomplicated; K21.9 Gastro-esophageal reflux disease without esophagitis; E78.5 Hyperlipidemia, unspecified; I69.854 Hemiplegia and hemiparesis following other cerebrovascular disease affecting left non-dominant side; I12.0 Hypertensive chronic kidney disease with stage 5 chronic kidney disease or end stage renal disease; N18.6 End stage renal disease; Z79.82 Long term (current) use of aspirin; Z99.2 Dependence on renal dialysis
CPT/HCPCS: 36581; 12345; 76000; 77001; 96365; C1750; J1644; J2704; J3370; J3490; J7030; J7050

== ENCOUNTER 2020-03-13 12:46 | Emergency (ER) | payer MEDICARE, MEDICAID, SELFPAY ==
[2020-03-13 12:54] VITALS: BMI 29.0
[2020-03-13 13:05] VITALS: BP 163/96; PULSE 69; RESP 16; O2SAT 99
[2020-03-13 13:25] VITALS: BP 163/96; PULSE 67; RESP 16; O2SAT 96
[2020-03-13 13:46] LABS: Basophils % 0.4 %; Eosinophils # 0.1 10^3/uL (0.0-0.8); Eosinophils % 0.6 %; Hematocrit 29.2 % (42.0-52.0); Hemoglobin 9.2 g/dL (11.7-16.6); Lymphocytes # 1.5 10^3/uL (0.8-4.8); Lymphocytes % 13.1 %; Mean Corpuscular HGB Conc 31.5 g/dL (30.0-36.0); Mean Corpuscular Hemoglobin 30.1 pg (28.0-34.0); Mean Corpuscular Volume 95.4 fL (80-94); Mean Platelet Volume 8.7 fL (7.4-10.4); Monocytes # 0.7 10^3/uL (0.2-0.9); Monocytes % 6.5 %; Neutrophils # 8.77 10^3/uL (1.8-7.7); Neutrophils % 78.7 %; Nucleated Red Blood Cells % 0 %; Platelet Count 352 10^3/cmm (130-400); Red Blood Count 3.06 10^6/uL (4.1-5.3); Red Cell Distribution Width 14.9 % (12.1-15.1); White Blood Count 11.2 10^3/uL (4.0-10.0)
--- NOTE | 2020-03-13 13:52 | ED_ITS ---
HPI - General Adult General: Chief complaint: General Medical Stated complaint: BLEEDING FROM CENTRAL LINE PLACED THIS AM Time Seen by Provider: 03/13/20 12:58 History of Present Illness: HPI narrative: 54-year-old male patient presents to the emergency department with bleeding issue. Reports Tesio catheter placed to the right upper chest wall this morning. He reports continued bleeding. He arrived by EMS. He was at dialysis when the dialysis nurse was concerned due to bleeding. He did not receive dialysis today. He denies pain to the chest wall upon exam. Associated symptoms: Reports no associated symptoms; Deny chest pain, diaphoresis, dyspnea, headache(s), nausea, rash, palpitations or vomiting Treatments prior to arrival: other (Pressure dressing) Review of Systems General: Reports: 10 or more systems reviewed and unremarkable except in HPI and below Const: Denies: fever(s), chills or diaphoresis Eyes: Denies: blurry vision or eye redness ENMT: Denies: throat pain, dental pain or disequilibrium Card: Denies: chest pain, palpitations or irregular heart rhythm Resp: Denies: dyspnea, productive cough, non-productive cough or wheezing GI: Denies: abdominal pain, nausea or vomiting : Denies: dysuria Musc: Denies: back pain Skin/Breast: Reports: other (bleeding from surgical site); Denies: rash or pruritus Neuro: Denies: headache(s), weakness in extremities or behavioral changes Psych: Denies: anxiety or depression Lucas/Lymph: Denies: easy bruising PFSH ED PFSH: Medical History (Updated 03/13/20 @ 17:43 by SULEIMAN Solomon) Bilateral hydronephrosis Bradycardia CVA (cerebral vascular accident) Dependence on peritoneal dialysis ESRD (end stage renal disease) Hypertension Incomplete bladder emptying Nicotine dependence Peritoneal dialysis catheter in situ Polycystic kidney disease Surgical History (Updated 03/13/20 @ 09:25 by Benson Kamara MD) History of colonoscopy 2019 at [facility] History of surgical procedure Peritoneal dialysis catheter placement by Dr. Kamara 2016 S/P hemodialysis catheter insertion (03/13/20) 23cm long exchanged right IJ Family History Mother Chronic kidney disease (CKD) Other Hypertension Social History Smoking and tobacco status: former smoker Alcohol intake: never Household members: family Housing: House Physical Exam Const: COMMON NORMALS: no acute distress, patient oriented x3 and alert GENERAL APPEARANCE: cooperative, comfortable and frail appearing NUTRITIONAL APPEARANCE: thin ORIENTATION/CONSCIOUSNESS: Yes awake, Yes oriented to person, Yes oriented to place and Yes oriented to time HENMT: COMMON NORMALS: normocephalic, Normal external nose present and moist oral mucous membranes HEAD & SCALP: normocephalic NOSE: Normal external nose present Eye: COMMON NORMALS: Equal, round and reactive pupils present and EOMs intact bilaterally GENERAL EYE: appearance normal, both eyes and all related structures PUPIL: Yes Equal, round and reactive pupils present Neck/C-Spine: COMMON NORMALS: full ROM and no lymphadenopathy GENERAL: Yes normal visual inspection and Yes trachea midline CERVICAL SPINE: Yes cervical ROM normal Lymph: LYMPHATIC: no lymphadenopathy noted Chest: CHEST: Yes abnormal inspection of the chest (Tessio to the right upper chest wall, trickling of blood from the site. Pressure dressing removed for inspection.) and No localized rib tenderness with anteroposterior compression Resp: COMMON NORMALS: normal respiratory effort and clear to auscultation bilaterally AUSCULTATION: clear to auscultation bilaterally Cardio: COMMON NORMALS: regular rhythm, S1 normal heart sound present, S2 normal heart sound present and Peripheral pulses 2+ throughout RHYTHM: regular rhythm HEART SOUNDS: S1 normal heart sound present and S2 normal heart sound present PERIPHERAL PULSES: Peripheral pulses 2+ throughout GI: COMMON NORMALS: Soft to palpation and non-tender INSPECTION: Yes normal to inspection PALPATION: Yes Soft to palpation : COMMON NORMALS: Yes no CVA tenderness BLADDER/KIDNEY EXAM: Yes no CVA tenderness Back/Pelvis: COMMON NORMALS: no CVA tenderness and thoracic and lumbar spine normal to inspection Extremity: COMMON NORMALS: normal to inspection and capillary refill normal Neuro: COMMON NORMALS: patient oriented x3 and no focal motor deficits SENSORIUM/ORIENTATION: Yes alert, Yes oriented to person, Yes oriented to place and Yes oriented to time Psych: COMMON NORMALS: mental status grossly normal, Normal thought process present and cooperative ACTIVITY/MOTOR BEHAVIOR: Yes appropriate eye contact THOUGHT PROCESS: Normal thought process present Skin: COMMON NORMALS: no rashes or lesions noted and turgor normal GENERAL SKIN EXAM: no rashes or lesions noted and turgor normal Course ED course: 54-year-old male patient presents to the emergency department with onset of right upper chest Tessio bleeding. Call to Dr. Kamara with recommendation to apply Surgicel, pressure dressing and sandbag to the right upper chest wall to stop bleeding. Patient was monitored for some time, bleeding continued with saturation of the dressing. Dr. Menjivar advised CT of the chest to ensure to see was in correct placement and no nicking of the jugular vein. CT scan revealed Tesio catheter in proper place and jugular vein, anterior neck shaped hematoma noted which could be cause of bleeding. No surrounding tissue laterally or posterior with edema to suggest bleeding. TXA was applied to the wound, pressure dressing applied along with sandbag. Patient was monitored for an hour, no bleeding appreciated, patient was placed in a arm sling to keep anterior pectus muscle from irritating the Tessio cath. He has follow-up with dialysis on Wednesday. Advised to keep the appointment, c aretaker was counseled on bleeding and wound dressing reinforcement if needed. Questions were answered. Creatinine was noted to be elevated, 6.4, creatinine has been as high as 7.1. CT results discussed at Dr. Menjivar as well as serology results, no further orders. Reevaluation(s): Reevaluation #1: Dr Kamara - advised to place pressure dressing, Surgicel and sandbag to the right upper chest wall to help stop bleeding. Reports to keep head of bed 30 to 45 degrees to help with bleeding cessation. Time: 13:50 Vital Signs: Vital signs: Vital Signs Pulse Rate 67 03/13/20 13:25 Respiratory Rate 16 03/13/20 13:25 Blood Pressure 163/96 03/13/20 13:25 Pulse Oximetry 96 03/13/20 13:25 [facility] - General Adult Lab Data: Labs: Lab Results 03/13/20 03/13/20 03/13/20 Range/Units 13:34 13:34 13:34 WBC 11.2 H (4.0-10.0) 10^3/ uL RBC 3.06 L (4.1-5.3) 10^6/u L Hgb 9.2 L (11.7-16.6) g/dL Hct 29.2 L (42.0-52.0) % MCV 95.4 H (80-94) fL MCH 30.1 (28.0-34.0) pg MCHC 31.5 (30.0-36.0) g/dL RDW 14.9 (12.1-15.1) % Plt Count 352 (130-400) 10^3/c mm MPV 8.7 (7.4-10.4) fL Neut % (Auto) 78.7 % Lymph % (Auto) 13.1 % [place] % (Auto) 6.5 % Eos % (Auto) 0.6 % Baso % (Auto) 0.4 % Neut # (Auto) 8.77 H (1.8-7.7) 10^3/u L Lymph # (Auto) 1.5 (0.8-4.8) 10^3/u L [place] # (Auto) 0.7 (0.2-0.9) 10^3/u L Eos # (Auto) 0.1 (0.0-0.8) 10^3/u L Baso # (Auto) 0.0 (0.0-0.1) 10^3/u L Nucleated RBC % (a uto) 0 % Nucleated RBCs # 0.0 /100WBC PT 14.20 (12.1-14.9) SECO NDS INR 1.06 (0.8-1.2) APTT 35.2 (23.9-36.7) SECO NDS Sodium 137 (136-145) mmol/L Potassium 4.2 (3.5-5.1) mmol/L Chloride 98 (98-107) mmol/L Carbon Dioxide 28 (22-29) mmol/L Anion Gap 15.2 (5-19) BUN 30 H (6-20) mg/dL Creatinine 6.4 H* (0.7-1.2) mg/dL GFR Calculation 9.1 L (90-130) mL/min Glucose 89 (65-115) mg/dL Calculated Osmolal ity 290 (285-295) mOsm/k g Calcium 9.2 (8.5-10.5) mg/dL Total Bilirubin 0.2 (0.15-1.2) mg/dL AST 15 (0-40) U/L ALT 9 (0-41) U/L Alkaline Phosphata se 81 (40-130) IU/L Total Protein 5.6 L (6.6-8.7) g/dL Albumin 2.9 L (3.5-5.2) g/dL Globulin 2.7 (1.3-4.6) g/dL Imaging Data^: CT Chest: Radiologist's impression: [facility] [address] [place] [address] CT Scan Report Signed Patient: Navneet Savage Unit #: [id number] : 1965 Acct#:O [id number] Age/Sex: 54 / M ADM Date: 03/13/20 Loc: ER Room/Bed: Attending Dr: Ordering Provider/Ordering MD: Sobeida Rowley Date of Service: 03/13/20 Procedure(s): CT chest wo con [id number] Accession Number(s): [id number] Report Number: [id number] WS: [id number] CT CHEST TECHNIQUE: Noncontrast CT of the chest with coronal and sagittal reformatted images. CLINICAL INFORMATION: bleeding from tesio rt chest wall - placed today COMPARISON: CT November 27, 2019 DLP: 1003.[address] scans at [facility] use at least one of these dose optimization techniques: automated exposure control; mA and/or kV adjustment per patient size (includes targeted exams where dose is matched to clinical indication); or iterative reconstruction. FINDINGS: Right dual-lumen central venous catheter with tips in the mid and distal SVC in good position. Small amount of hematoma and edema at the catheter insertion site in the subcutaneous soft tissues. Hematoma measures 2.3 x 4.7 cm. No compression of critical structures. No airway compromise. No mediastinal hematoma or pneumothorax. Moderate chronic emphysematous changes. Subsegmental atelectasis in the lung bases. Small left greater than right pleural effusions. Aortic calcification. Coronary calcification. No axillary lymphadenopathy. No mediastinal or hilar lymphadenopathy. Partially visualized polycystic kidneys bilaterally. Small amount of perisplenic ascites is visualized. CT/CT chest wo con [id number] IMPRESSION: 1. Right dual-lumen central venous catheter with tips in the mid and distal SVC. 2. Small amount of subcutaneous hematoma and edema at the catheter entrance site. No evidence of airway or critical structure compression. No pneumothorax. Subcutaneous hematoma measures 4.7 x 2.3 cm 3. No mediastinal hematoma. 4. Small bilateral pleural effusions with bibasilar atelectasis. 5. Partially visualized enlarged polycystic kidneys bilaterally. 6. Small amount of perisplenic ascites visualized in the upper abdomen. Notified SULEIMAN Solomon at 03/13/2020 4:12 PM. Discharge Plan Discharge Patient Disposition: Home Clinical Impression: Post-op bleeding Qualifiers: Surgical complication system/body Area: circulatory system Procedure type: circulatory, unspecified Qualified Code(s): I97.618 - Postprocedural hemorrhage of a circulatory system organ or structure following other circulatory system procedure Hemodialysis catheter dysfunction Qualifiers: Encounter type: initial encounter Qualified Code(s): T82.41XA - Breakdown (mechanical) of vascular dialysis catheter, initial encounter Condition: Stable Prescriptions: No Action aspirin 81 mg tablet,delayed release (DR/EC) 81 mg PO DAILY RF: 0 Hold Instructions: Resume on 02/29/20. clonidine 0.3 mg/24 hr patch weekly 0.3 mg topical Q7D RF: 0 hydralazine 25 mg tablet 25 mg PO DAILY RF: 0 hydrocodone-acetaminophen [Leckrone] 5-325 mg tablet 1 tab PO Q6H PRN (Reason: pain) Qty: 20 RF: 0 nifedipine 90 mg Tablet Extended Release 24hr 90 mg PO DAILY RF: 0 alfuzosin 10 mg Tablet Extended Release 24 Hr 10 mg PO DAILY RF: 0 RenaPlex-D 800 mcg-12.5 mg -2,000 unit Tablet 1 tab PO DAILY RF: 0 allopurinol 100 mg Tablet 100 mg PO DAILY RF: 0 escitalopram oxalate 20 mg Tablet 20 mg PO BID RF: 0 clopidogrel 75 mg Tablet 75 mg PO DAILY RF: 0 Hold Instructions: Resume on 03/02/20. simvastatin 40 mg Tablet 40 mg PO DAILY RF: 0 pantoprazole 40 mg tablet,delayed release (DR/EC) 40 mg PO DAILY RF: 0 losartan 100 mg tablet 100 mg PO DAILY RF: 0 finasteride 5 mg tablet 5 mg PO DAILY RF: 0 Fosrenol 1,000 mg powder in packet See Rx Instructions .ROUTE .COMPLEX RF: 0 Discharge Orders: Discharge Order (Routine); Ordered 03/13/20 Ordered By: Sobeida Rowley Discharge Diet: Advance as tolerated Discharge Activity: Limit activity as instructed Patient Instructions: Hemodialysis (ED), Dialysis Diet (GEN) Activity Restrictions/Additional Instructions: Monitor for bleeding, keep the right arm still in a arm sling until follow-up at dialysis If the tape, dressing becomes saturated with blood, you may apply pressure to the area, do not remove gauze around the catheter site. Keep pressure dressing on until follow-up Do not remove the pressure dressing tomorrow Do not get the dressing wet Continue with follow-up postoperative instructions as per Dr. Kamara Return to the emergency department if you experience bleeding from the site and cannot control the bleeding. Coding Level of Care Code ED Nca Certified Concierge for Eric Sandhu
[2020-03-13 14:25] LABS: INR 1.06 (0.8-1.2)
[2020-03-13 14:26] LABS: Partial Thromboplastin Time 35.2 SECONDS (23.9-36.7)
[2020-03-13 14:29] LABS: Alanine Aminotransferase 9 U/L (0-41); Albumin Level 2.9 g/dL (3.5-5.2); Alkaline Phosphatase 81 IU/L (40-130); Anion Gap 15.2 (5-19); Aspartate Amino Transferase 15 U/L (0-40); Blood Urea Nitrogen 30 mg/dL (6-20); Calcium 9.2 mg/dL (8.5-10.5); Carbon Dioxide 28 mmol/L (22-29); Chloride 98 mmol/L (98-107); Globulin 2.7 g/dL (1.3-4.6); Glomerular Filtration Rate 9.1 mL/min (90-130); Glucose 89 mg/dL (65-115); Osmolality Calculated 290 mOsm/kg (285-295); Potassium 4.2 mmol/L (3.5-5.1); Sodium 137 mmol/L (136-145); Total Bilirubin 0.2 mg/dL (0.15-1.2); Total Protein 5.6 g/dL (6.6-8.7)
--- NOTE | 2020-03-13 15:36 | CT_ITS ---
WS: [id number] CT CHEST TECHNIQUE: Noncontrast CT of the chest with coronal and sagittal reformatted images. CLINICAL INFORMATION: bleeding from tesio rt chest wall - placed today COMPARISON: CT November 27, 2019 DLP: 1003.[address] scans at [facility] use at least one of these dose optimization techniques: automat ed exposure control; mA and/or kV adjustment per patient size (includes targeted exams where dose is matched to clinical indication); or iterative reconstruction. FINDINGS: Right dual-lumen central venous catheter with tips in the mid and distal SVC in good positi on. Small amount of hematoma and edema at the catheter insertion site in the subcutaneous soft tissue s. Hematoma measures 2.3 x 4.7 cm. No compression of critical structures. No airway compromise. No me diastinal hematoma or pneumothorax. Moderate chronic emphysematous changes. Subsegmental atelectasis in the lung bases. Small left greate r than right pleural effusions. Aortic calcification. Coronary calcification. No axillary lymphadenop athy. No mediastinal or hilar lymphadenopathy. Partially visualized polycystic kidneys bilaterally. Small amount of perisplenic ascites is visualize d. CT/CT chest wo con [id number] IMPRESSION: 1. Right dual-lumen central venous catheter with tips in the mid and distal SV C. 2. Small amount of subcutaneous hematoma and edema at the catheter entrance si te. No evidence of airway or critical structure compression. No pneumothorax. S ubcutaneous hematoma measures 4.7 x 2.3 cm 3. No mediastinal hematoma. 4. Small bilateral pleural effusions with bibasilar atelectasis. 5. Partially visualized enlarged polycystic kidneys bilaterally. 6. Small amount of perisplenic ascites visualized in the upper abdomen. Notified SULEIMAN Solomon at 03/13/2020 4:12 PM.
[2020-03-13] MEDS: tranexamic acid 1,000 mg/10mL SDV 1000 MG IRRIGATION (16:00)
--- NOTE | 2020-03-13 17:18 | PC.NURSE ---
TXA was used on a 4x4 guaze and then the Nurse Practitioner Sobeida used sterile technique on pt. Then spplied 4x4 and foam tape for pressure dressing and 5lb sand bag placed on pt. Assisted with procedure
[2020-03-13 19:18] VITALS: BP 152/97; PULSE 88; RESP 16; O2SAT 96
== END 2020-03-13 19:21 | disposition home or self-care (01) ==
PROVIDERS: Emergency Provider Nurse Practitioner Family
DX: T82.41XA Breakdown (mechanical) of vascular dialysis catheter, initial encounter (principal); I97.618 Postprocedural hemorrhage of a circulatory system organ or structure following other circulatory system procedure; Z79.82 Long term (current) use of aspirin; Z79.02 Long term (current) use of antithrombotics/antiplatelets; Z86.73 Personal history of transient ischemic attack (TIA), and cerebral infarction without residual deficits; I12.0 Hypertensive chronic kidney disease with stage 5 chronic kidney disease or end stage renal disease; N18.6 End stage renal disease; Z99.2 Dependence on renal dialysis; Z87.891 Personal history of nicotine dependence; T82.42XA Displacement of vascular dialysis catheter, initial encounter; F17.220 Nicotine dependence, chewing tobacco, uncomplicated; K21.9 Gastro-esophageal reflux disease without esophagitis; E78.5 Hyperlipidemia, unspecified; I69.854 Hemiplegia and hemiparesis following other cerebrovascular disease affecting left non-dominant side
CPT/HCPCS: 12345; 36415; 71250; 77001; 80053; 85025; 85610; 85730; 96365; 99281; 99283; C1750; J1644; J2704; J3370; J3490; J7030; J7050

== ENCOUNTER 2020-07-15 07:25 | Outpatient (CLI) | payer MEDICARE, MEDICAID, SELFPAY ==
--- NOTE | 2020-07-15 08:12 | CT_ITS ---
WS: [id number] CT ABDOMEN WITHOUT CONTRAST HISTORY: ABDOMINAL PAIN AND SWELLING Contiguous single phase 5 mm axial imaging performed to the abdomen. Oral contrast has been provided. Coronal and sagittal reformats are submitted. All CT scans at [facility] use at least on e of these dose optimization techniques: automated exposure control; mA and/or kV adjustment per lisa ent size (includes targeted exams where dose is matched to clinical indication); or iterative reconst ruction. CONTRAST: None DLP: 921.5 mGycm COMPARISON: 11/27/2019 Lower thorax: No pleural effusions. Heart size is top normal. No pericardial effusion. Liver: Normal size liver. There are a few scattered hypoechoic densities which cannot be further natividad acterized on a noncontrast study. No bile duct dilatation. Gallbladder: Normal. Pancreas: Normal. Spleen: Normal size with a few granulomata. Adrenals: Poorly visualized adrenal glands. Right kidney: Marked enlargement of the RIGHT kidney due to polycystic kidney disease. There are nume bright cystic masses of various sizes. Some of these cysts contain calcifications. Left kidney: Marked enlargement of the kidneys due to polycystic kidney disease. There are numerous c ystic masses of various sizes. There are a few calcifications also present. Aorta: Atherosclerotic changes within the aorta. No aneurysm. GI tract: Very limited oral contrast present in the GI tract. No obstructive pattern identified. There is a large amount of peritoneal fluid which is significantly increased since 11/27/2019. Abdominal wall: Mild diffuse anasarca. Visualized osseous structures: Unremarkable. CT/CT abdomen wo con [id number] IMPRESSION: 1. Large amount of peritoneal fluid. Significantly increased in amount since . 2. Polycystic kidney disease. Markedly enlarged kidneys bilaterally with numer ous cystic masses. Some of the cysts contain calcifications. 3. Diffuse soft tissue anasarca.
[2020-07-15] MEDS: iohexol 300 mg/mL 50 mL Btl PO (08:44)
== END 2020-07-15 07:26 | disposition home or self-care (01) ==
LOC: RADWPI 07:27
PROVIDERS: Visit Provider Internal Medicine Nephrology
DX: R10.9 Unspecified abdominal pain (principal); R19.00 Intra-abdominal and pelvic swelling, mass and lump, unspecified site
CPT/HCPCS: 74150; Q9967

== ENCOUNTER 2020-07-23 07:13 | Outpatient (CLI) | payer MEDICARE, MEDICAID, SELFPAY ==
--- NOTE | 2020-07-23 08:00 | US_ITS ---
WS: [id number] ULTRASOUND-GUIDED THERAPEUTIC AND DIAGNOSTIC PARACENTESIS Procedure, risks, and complications have been explained to the patient. Consent is obtained. Utilizing aseptic technique and 1% buffered lidocaine, a small dermatome was made through which a 5 F rench Yueh catheter was inserted. Approximately 5060 ml of clear peritoneal fluid was obtained witho ut difficulty. No complications encountered. Peritoneal fluid collected for analysis as requested. US/US paracentesis abd w [id number] IMPRESSION: Uncomplicated paracentesis yielding 5060 ml of peritoneal fluid. Peritoneal fluid obtained for analysis as requested.
[2020-07-23 13:03] LABS: Apprearance, Body Fluid CLEAR; Color, Body Fluid YELLOW
[2020-07-23 13:11] LABS: Body Fluid WBC 676 /uL; Monocytes # Body Fluid 0.625; RBC, Body Fluid 1 10^3/uL
[2020-07-23 13:12] LABS: Body Fluid Polynuclear #Cells 0.051
[2020-07-23 13:17] LABS: Body Fluid Specific Gravity 1.015
[2020-07-23 18:57] LABS: Fluid Alkaline Phos. 30 IU/L
[2020-07-23 18:58] LABS: Albumin Body Fluid 2.4 g/dL; Amylase Body Fluid 37 U/L; Cholesterol Body Fluid 86 mg/dL (0-200); LDH Body Fluid 118 U/L; Total Protein Body Fluid 4 g/dL; Triglycerides Body Fluid 26 mg/dL (0-150); Uric Acid Body Fluid 3 mg/dL
[2020-07-23 19:42] LABS: pH Body Fluid 7.5
== END 2020-07-23 07:14 | disposition home or self-care (01) ==
LOC: RAD 07:15
PROVIDERS: Visit Provider Surgery
DX: R18.8 Other ascites (principal)
CPT/HCPCS: 49083; 80500; 82042; 82150; 82465; 82945; 83615; 83986; 84075; 84157; 84315; 84478; 84560; 87015; 87070; 87075; 87102; 87116; 87205; 87206; 87801; 89050

== ENCOUNTER → 2020-08-02 07:55 | Day surgery (SDC) | payer MEDICARE, MEDICAID, SELFPAY ==
--- NOTE | 2020-08-02 09:12 | US_ITS ---
WS: [id number] ULTRASOUND ABDOMEN LIMITED CLINICAL INFORMATION: MARKING FOR FLUID LEVEL/?PARACENTESIS COMPARISON: None. FINDINGS: Ultrasound performed for paracentesis marking. Moderate volume ascites. US/US abdomen limited [id number] IMPRESSION: Ultrasound performed for paracentesis marking.
[2020-08-02 09:25] VITALS: BP 159/97; PULSE 62; RESP 18; TEMP 36.6; O2SAT 100; BMI 28.7
[2020-08-02 10:04] VITALS: BP 115/75; PULSE 59; RESP 18; O2SAT 94
--- NOTE | 2020-08-02 11:45 | PM.ACPR ---
Acute Procedures Paracentesis: Time out performed: Yes Indication: Ascites Procedure: therapeutic paracentesis Location: LLQ Local anesthetic used: lidocaine 1% Amount of anesthesia used (ml): 10 Bedside ultrasound used: yes, Ascites confirmed and location marked Preparation: sterile prep and drape Amount of fluid obtained (ml): 5,150 Fluid: clear Post procedure exam: awake, alert Patient tolerated procedure: well Complications: none
== END ==
PROVIDERS: Visit Provider Internal Medicine
DX: R18.8 Other ascites (principal)
CPT/HCPCS: 76705

== ENCOUNTER 2020-08-08 20:21 | Emergency (ER) | payer MEDICARE, MEDICAID, SELFPAY ==
[2020-08-08 20:26] VITALS: BP 168/89; PULSE 101; RESP 16; TEMP 36.2; O2SAT 100; BMI 28.5
--- NOTE | 2020-08-08 20:37 | CTR_ITS ---
PROCEDURE INFORMATION: Exam: CT Head Without Contrast Exam date and time: 08/08/2020 8:39 PM Age: 55 years old Clinical indication: Dizziness; Additional info: WILL TECHNIQUE: Imaging protocol: Computed tomography of the head without contrast. Radiation optimization: All CT scans at this facility use at least one of these dose optimization techniques: automated exposure control; mA and/or kV adjustment per patient size (includes targeted exams where dose is matched to clinical indication); or iterative reconstruction. COMPARISON: No relevant prior studies available. RADIATION DOSE METRICS: Total DLP (mGy-cm): 887.47 FINDINGS: Brain: Mild atrophy and mild white matter chronic microvascular changes are noted. No hemorrhage or evidence of acute infarction is seen. Cerebral ventricles: No ventriculomegaly. Bones/joints: Unremarkable. No acute fracture. Paranasal sinuses: Visualized sinuses are unremarkable. No fluid levels. Mastoid air cells: Visualized mastoid air cells are well aerated. Soft tissues: Unremarkable. CT/CT head wo con* [id number] IMPRESSION: No acute intracranial abnormality. Radiation Dose CTDIVOL = (mGy): DLP = 887.47 (mGy-cm)
--- NOTE | 2020-08-08 20:37 | ECG_ITS ---
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 Measurements Intervals Girdler Rate: 79 P: 22 TN: 149 QRS: -31 QRSD: 106 T: 49 QT: 396 QTc: 456 Interpretive Statements SINUS RHYTHM WITH OCCASIONAL SUPRAVENTRICULAR PREMATURE COMPLEXES LEFT AXIS DEVIATION [QRS AXIS < -30] Features of old septal NC MINIMAL VOLTAGE CRITERIA FOR LVH, CONSIDER NORMAL VARIANT [MEETS CRITERIA IN ONE OF: R(aVL), S(V1), R(V5), R(V5/V6)+S(V1)] SEPTAL MYOCARDIAL INFARCTION , OF INDETERMINATE AGE [40+ ms Q WAVE IN V1/V2] Compared to ECG 02/18/2020 18:20:50 Myocardial infarct finding now present Intraventricular conduction delay no longer present Electronically Signed On 08-09-2020 23:07:56 CDT by China Wheat M.D. [id number]
--- NOTE | 2020-08-08 20:48 | PC.NURSE ---
PATIENT TO CT
[2020-08-08 21:04] VITALS: BP 146/86; PULSE 83; RESP 15; O2SAT 96
--- NOTE | 2020-08-08 21:04 | W.ED.DIZZY ---
HPI - Dizziness General: Chief Complaint: Dizziness Stated Complaint: dizziness Time Seen by Provider: 08/08/20 20:33 Source: patient Mode of arrival: ambulatory Limitations: no limitations History of Present Illness: HPI Narrative: 55-year-old male states that he has been having dizziness over the last 2 hours. He states that he felt like he is going to pass out he also headache some numbness of his left face that is since resolved. He states that he has had some low blood pressures after his dialysis causing to feel dizzy over the last week. He denies any headache. Denies any difficulty walking. Denies any one-sided weakness or focal neurologic deficits. MD elicited complaint: dizziness Associated symptoms: Denies chest pain, chills, nausea or vomiting Review of Systems Const: Denies: fever(s), chills, body aches or change in appetite Eyes: Denies: blurry vision or eye discomfort ENMT: Denies: throat pain or dental pain Card: Denies: chest pain Resp: Denies: dyspnea GI: Denies: abdominal pain, nausea, vomiting or diarrhea : Denies: dysuria Musc: Denies: neck pain or back pain Skin/Breast: Denies: rash Neuro: Reports: dizziness Psych: Denies: depression Lucas/Lymph: Denies: easy bruising All/Imm: Denies: urticaria PFSH ED PFSH: Medical History Bilateral hydronephrosis Bradycardia CVA (cerebral vascular accident) Dependence on peritoneal dialysis ESRD (end stage renal disease) Hypertension Incomplete bladder emptying Polycystic kidney disease Surgical History AV fistula History of colonoscopy 2019 at [facility] History of surgical procedure Peritoneal dialysis catheter placement by Dr. Kamara 2015 S/P hemodialysis catheter insertion (03/13/20) 23cm long exchanged right IJ Removed on 06/11/2020 Family History Mother Chronic kidney disease (CKD) Other Hypertension Social History (Updated 08/01/20 @ 13:14 by Batool Tobar, CT) Smoking and tobacco status: former smoker Alcohol intake: never Household members: family Housing: House History of recent travel: No Physical Exam Const: COMMON NORMALS: no acute distress, patient oriented x3 and healthy appearing HENMT: COMMON NORMALS: normocephalic and atraumatic HEAD & SCALP: normocephalic and atraumatic Eye: COMMON NORMALS: Equal, round and reactive pupils present and EOMs intact bilaterally PUPIL: Yes Equal, round and reactive pupils present Neck/C-Spine: COMMON NORMALS: full ROM and supple Chest: COMMONS NORMALS: normal inspection of the chest and normal palpation of entire chest wall Resp: COMMON NORMALS: normal respiratory effort, No retractions, No use of accessory muscles and clear to auscultation bilaterally AUSCULTATION: clear to auscultation bilaterally Cardio: COMMON NORMALS: regular rate, regular rhythm and No murmurs present (Cardio) RATE: regular rate RHYTHM: regular rhythm GI: COMMON NORMALS: Normal to inspection, nondistended, normoactive bowel sounds present, Soft to palpation, non-tender and no masses PALPATION: Yes Soft to palpation Extremity: COMMON NORMALS: normal to inspection and full ROM Neuro: COMMON NORMALS: patient oriented x3, moves all extremities and no focal motor deficits CRANIAL NERVES: Yes CN normal except as noted SPEECH: speech normal GAIT: Yes Normal gait present MOTOR EXAM: 5/5 motor strength present throughout Psych: COMMON NORMALS: mental status grossly normal, Normal thought process present and cooperative THOUGHT PROCESS: Normal thought process present Skin: COMMON NORMALS: no rashes or lesions noted and no wounds GENERAL SKIN EXAM: no rashes or lesions noted Course Vital Signs: Vital signs: Vital Signs Temperature 97.2 F L 08/08/20 20:26 Pulse Rate 83 08/08/20 21:04 Respiratory Rate 17 08/08/20 22:16 Blood Pressure 146/86 08/08/20 21:57 Pulse Oximetry 96 08/08/20 21:57 MDM - Dizziness MDM Narrative: Medical decision making narrative: Patient presents here with dizziness that after speaking to me sounds more like some near syncopal events. He actually feels much improved here I had him ambulate the halls and he has had no dizziness or neurologic deficits here. He is requesting discharge I feel he is stable for discharge. His labs are stable and a CT head is normal. He has no signs of acute stroke. He does have dialysis tomorrow and is to follow-up then is return if worsening. He understands agrees to plan. Lab Data: Labs: Lab Results 08/08/20 08/08/20 08/08/20 Range/Units 20:59 20:59 20:59 WBC 8.5 (4.0-10.0) 10^3/ uL RBC 3.13 L (4.1-5.3) 10^6/u L Hgb 9.7 L (11.7-16.6) g/dL Hct 28.9 L (42.0-52.0) % MCV 92.3 (80-94) fL MCH 31.0 (28.0-34.0) pg MCHC 33.6 (30.0-36.0) g/dL RDW 14.3 (12.1-15.1) % Plt Count 262 (130-400) 10^3/c mm MPV 9.9 (7.4-10.4) fL Neut % (Auto) 71.9 % Lymph % (Auto) 17.6 % Armstrong % (Auto) 8.5 % Eos % (Auto) 1.1 % Baso % (Auto) 0.5 % Neut # (Auto) 6.15 (1.8-7.7) 10^3/u L Lymph # (Auto) 1.5 (0.8-4.8) 10^3/u L Armstrong # (Auto) 0.7 (0.2-0.9) 10^3/u L Eos # (Auto) 0.1 (0.0-0.8) 10^3/u L Baso # (Auto) 0.0 (0.0-0.1) 10^3/u L Nucleated RBC % (a uto) 0 % Nucleated RBCs # 0.0 /100WBC PT 13.40 (12.1-14.9) SECO NDS INR 0.99 (0.8-1.2) Sodium 136 (136-145) mmol/L Potassium 4.7 (3.5-5.1) mmol/L Chloride 94 L (98-107) mmol/L Carbon Dioxide 29 (22-29) mmol/L Anion Gap 17.7 (5-19) BUN 57 H (6-20) mg/dL Creatinine 7.4 H* (0.7-1.2) mg/dL GFR Calculation 7.7 L (90-130) mL/min Glucose 97 (65-115) mg/dL Calculated Osmolal ity 298 H (285-295) mOsm/k g Calcium 9.1 (8.5-10.5) mg/dL Total Bilirubin 0.2 (0.15-1.2) mg/dL AST 20 (0-40) U/L ALT 12 (0-41) U/L Alkaline Phosphata se 70 (40-130) IU/L Ammonia (16-60) umol/L Total Protein 5.7 L (6.6-8.7) g/dL Albumin 2.9 L (3.5-5.2) g/dL Globulin 2.8 (1.3-4.6) g/dL 08/08/20 Range/Units 20:59 WBC (4.0-10.0) 10^3/ uL RBC (4.1-5.3) 10^6/u L Hgb (11.7-16.6) g/dL Hct (42.0-52.0) % MCV (80-94) fL MCH (28.0-34.0) pg MCHC (30.0-36.0) g/dL RDW (12.1-15.1) % Plt Count (130-400) 10^3/c mm MPV (7.4-10.4) fL Neut % (Auto) % Lymph % (Auto) % Armstrong % (Auto) % Eos % (Auto) % Baso % (Auto) % Neut # (Auto) (1.8-7.7) 10^3/u L Lymph # (Auto) (0.8-4.8) 10^3/u L Armstrong # (Auto) (0.2-0.9) 10^3/u L Eos # (Auto) (0.0-0.8) 10^3/u L Baso # (Auto) (0.0-0.1) 10^3/u L Nucleated RBC % (a uto) % Nucleated RBCs # /100WBC PT (12.1-14.9) SECO NDS INR (0.8-1.2) Sodium (136-145) mmol/L Potassium (3.5-5.1) mmol/L Chloride (98-107) mmol/L Carbon Dioxide (22-29) mmol/L Anion Gap (5-19) BUN (6-20) mg/dL Creatinine (0.7-1.2) mg/dL GFR Calculation (90-130) mL/min Glucose (65-115) mg/dL Calculated Osmolal ity (285-295) mOsm/k g Calcium (8.5-10.5) mg/dL Total Bilirubin (0.15-1.2) mg/dL AST (0-40) U/L ALT (0-41) U/L Alkaline Phosphata se (40-130) IU/L Ammonia 11 L (16-60) umol/L Total Protein (6.6-8.7) g/dL Albumin (3.5-5.2) g/dL Globulin (1.3-4.6) g/dL EKG Data^: EKG 1: Attestation: I personally reviewed and interpreted this EKG as follows: EKG interpretation date: 08/08/20 EKG interpretation time: 21:10 Interpretation: nsr hr [address] or t wave abnormalities qrs 106 qt 431 Discharge Plan Discharge Patient Disposition: Home Clinical Impression: Dizziness Condition: Stable Prescriptions: No Action aspirin 81 mg tablet,delayed release (DR/EC) 81 mg PO DAILY RF: 0 Hold Instructions: Resume on 02/29/20. clonidine 0.3 mg/24 hr patch weekly See Rx Instructions .ROUTE .COMPLEX RF: 0 hydralazine 25 mg tablet See Rx Instructions .ROUTE .COMPLEX RF: 0 alfuzosin 10 mg Tablet Extended Release 24 Hr 10 mg PO DAILY RF: 0 RenaPlex-D 800 mcg-12.5 mg -2,000 unit Tablet 1 tab PO DAILY RF: 0 allopurinol 100 mg Tablet 100 mg PO DAILY RF: 0 escitalopram oxalate 20 mg Tablet 40 mg PO DAILY RF: 0 clopidogrel 75 mg Tablet 75 mg PO DAILY RF: 0 Hold Instructions: Resume on 03/02/20. simvastatin 40 mg Tablet 40 mg PO DAILY RF: 0 pantoprazole 40 mg tablet,delayed release (DR/EC) 40 mg PO DAILY RF: 0 losartan 100 mg tablet 100 mg PO DAILY RF: 0 finasteride 5 mg tablet 5 mg PO DAILY RF: 0 clonidine HCl 0.1 mg tablet 0.1 mg PO TID RF: 0 minoxidil 2.5 mg tablet 2.5 mg PO BID RF: 0 lidocaine-prilocaine 2.5-2.5 % cream See Rx Instructions .ROUTE .COMPLEX RF: 0 levothyroxine 25 mcg tablet 25 mcg PO DAILY RF: 0 Procardia XL 60 mg tablet extended release 24hr 60 mg PO BID RF: 0 bumetanide 1 mg tablet 1 mg PO DAILY RF: 0 metoprolol tartrate 25 mg tablet 12.5 mg PO BID RF: 0 Discharge Orders: Discharge ED (Routine); Ordered 08/08/20 Ordered By: Ghada Fontanez Discharge Diet: Advance as tolerated Discharge Activity: Resume usual activity Patient Instructions: Dizziness (ED) Coding Level of Care Code ED Analytical Sciences Director for Efreng Fwd Exam Comprehensive
[2020-08-08 21:21] LABS: Basophils % 0.5 %; Eosinophils # 0.1 10^3/uL (0.0-0.8); Eosinophils % 1.1 %; Hematocrit 28.9 % (42.0-52.0); Hemoglobin 9.7 g/dL (11.7-16.6); Lymphocytes # 1.5 10^3/uL (0.8-4.8); Lymphocytes % 17.6 %; Mean Corpuscular HGB Conc 33.6 g/dL (30.0-36.0); Mean Corpuscular Volume 92.3 fL (80-94); Mean Platelet Volume 9.9 fL (7.4-10.4); Monocytes # 0.7 10^3/uL (0.2-0.9); Monocytes % 8.5 %; Neutrophils # 6.15 10^3/uL (1.8-7.7); Neutrophils % 71.9 %; Nucleated Red Blood Cells % 0 %; Platelet Count 262 10^3/cmm (130-400); Red Blood Count 3.13 10^6/uL (4.1-5.3); Red Cell Distribution Width 14.3 % (12.1-15.1); White Blood Count 8.5 10^3/uL (4.0-10.0)
[2020-08-08 21:25] LABS: INR 0.99 (0.8-1.2)
[2020-08-08 21:31] LABS: Ammonia 11 umol/L (16-60)
[2020-08-08 21:36] LABS: Alanine Aminotransferase 12 U/L (0-41); Albumin Level 2.9 g/dL (3.5-5.2); Alkaline Phosphatase 70 IU/L (40-130); Anion Gap 17.7 (5-19); Aspartate Amino Transferase 20 U/L (0-40); Blood Urea Nitrogen 57 mg/dL (6-20); Calcium 9.1 mg/dL (8.5-10.5); Carbon Dioxide 29 mmol/L (22-29); Chloride 94 mmol/L (98-107); Globulin 2.8 g/dL (1.3-4.6); Glomerular Filtration Rate 7.7 mL/min (90-130); Glucose 97 mg/dL (65-115); Osmolality Calculated 298 mOsm/kg (285-295); Potassium 4.7 mmol/L (3.5-5.1); Sodium 136 mmol/L (136-145); Total Bilirubin 0.2 mg/dL (0.15-1.2); Total Protein 5.7 g/dL (6.6-8.7)
--- NOTE | 2020-08-08 21:46 | PC.PHAR ---
pt states he takes care of his own medications and states he is unsure of all the names-medications entered are meds that show have been previously filled on ext med history-pts pharmacy closed to verify when last filled-pt states he is not using the clonidine patch ext med history shows last filled on 07/31/20-pt states he is taking tabs now-notes are entered on each medication on last time medications were filled
[2020-08-08 21:57] VITALS: BP 146/86; O2SAT 96
--- NOTE | 2020-08-08 22:15 | PC.NURSE ---
PATIENT AMBULATED BY NURSE IN HALLWAY PER HCP REQUEST.
[2020-08-08 22:16] VITALS: RESP 17
[2020-08-08 22:51] VITALS: PULSE 85; RESP 16; O2SAT 99
== END 2020-08-08 22:55 | disposition home or self-care (01) ==
PROVIDERS: Emergency Provider Emergency Medicine
DX: R42 Dizziness and giddiness (principal); Z79.82 Long term (current) use of aspirin; Z79.02 Long term (current) use of antithrombotics/antiplatelets; Z86.73 Personal history of transient ischemic attack (TIA), and cerebral infarction without residual deficits; I12.0 Hypertensive chronic kidney disease with stage 5 chronic kidney disease or end stage renal disease; N18.6 End stage renal disease; Z87.891 Personal history of nicotine dependence
CPT/HCPCS: 70450; 80053; 82140; 85025; 85610; 93005; 99283

== ENCOUNTER 2020-08-12 05:09 | Emergency (ER) | payer MEDICARE, MEDICAID, SELFPAY ==
[2020-08-12] VITALS (7 sets, daily range): BP systolic 135–174; BP diastolic 80–107; PULSE 81–102; RESP 16–18; TEMP 36.7; O2SAT 93–99; BMI 27.4
--- NOTE | 2020-08-12 05:18 | XR_ITS ---
WS: [id number] Exam: XR chest 1V portable [id number] Date/Time of Exam: 08/12/2020 5:22 AM Reason For Exam: cp Comparison 02/27/2020. The lungs are fully inflated and clear. Normal cardiomediastinal structures and regional bony element s. No pleural effusions. XR/XR chest 1V portable [id number] IMPRESSION: 1. No acute cardiopulmonary finding.
--- NOTE | 2020-08-12 05:18 | ECG_ITS ---
[facility] Test Date: 2020-08-12 Pat Name: Navneet Savage Department: Room: Gender: Male Patient Placement Coordinator: : 1965 Requested By: Ghada Fontanez Order Number: [id number] Nate MD: Dora Mustafa M.D. Measurements Intervals Burt Rate: 84 P: 9 CT: 135 QRS: -26 QRSD: 123 T: 28 QT: 383 QTc: 454 Interpretive Statements SINUS RHYTHM BORDERLINE LEFT AXIS DEVIATION [QRS AXIS < -20] MODERATE INTRAVENTRICULAR CONDUCTION DELAY [110+ ms QRS DURATION] Compared to ECG 08/08/2020 21:10:11 Intraventricular conduction delay now present Myocardial infarct finding no longer present Electronically Signed On 08-12-2020 12:57:01 CDT by Dora Mustafa M.D. [email or web address]
--- NOTE | 2020-08-12 05:18 | XR_ITS ---
WS: [id number] Exam: XR shoulder RT min 2V* [id number] Date/Time of Exam: 08/12/2020 5:22 AM Reason For Exam: pain Comparison 08/04/2006. No fracture or dislocation. Normal soft tissues. Minimal degenerative changes at the AC joint and gle nohumeral joint. XR/XR shoulder RT min 2V* [id number] IMPRESSION: 1. Minimal DJD. 2. No fracture or dislocation.
--- NOTE | 2020-08-12 05:19 | W.ED.WEAKNES ---
Documented by User: Ghada Fontanez MD 08/12/20 05:35 HPI - Weakness General: Chief complaint: Extremity Problem,Nontraumatic Stated complaint: Right Shoulder Pain, SOB Time Seen by Provider: 08/12/20 05:13 Source: patient Mode of arrival: ambulatory Limitations: no limitations History of Present Illness: HPI Narrative: 55-year-old male has a history of end-stage renal disease and is on dialysis. Patient states he woke up this morning having right-sided chest and shoulder pain but mainly in his right shoulder. He states that he felt lightheaded this morning and thought his blood pressure may be low. His blood pressure here is normal he states that he does not have a blood pressure cuff at home so was unable to check it. He is scheduled to have dialysis today. He denies any shortness of breath. Denies any radiation of his pain. States pain is sharp in nature and worse with movement of the shoulder and rates it a 3 out of 10. Associated symptoms: Denies chest pain, chills, dysuria, easy bruising, fever(s), nausea or vomiting Review of Systems Const: Denies: fever(s), chills, body aches or change in appetite Eyes: Denies: blurry vision or eye discomfort ENMT: Denies: throat pain or dental pain Card: Denies: chest pain Resp: Denies: dyspnea GI: Denies: abdominal pain, nausea, vomiting or diarrhea : Denies: dysuria Musc: Reports: extremity pain Skin/Breast: Denies: rash Neuro: Reports: dizziness Psych: Denies: depression Lucas/Lymph: Denies: easy bruising All/Imm: Denies: urticaria PFSH ED PFSH: Medical History Bilateral hydronephrosis Bradycardia CVA (cerebral vascular accident) Dependence on peritoneal dialysis ESRD (end stage renal disease) Hypertension Incomplete bladder emptying Polycystic kidney disease Surgical History AV fistula History of colonoscopy 2019 at [facility] History of surgical procedure Peritoneal dialysis catheter placement by Dr. Kamara 2015 S/P hemodialysis catheter insertion (03/13/20) 23cm long exchanged right IJ Removed on 06/11/2020 Family History Mother Chronic kidney disease (CKD) Other Hypertension Social History (Updated 08/01/20 @ 13:14 by GAURAV Noyola) Smoking and tobacco status: former smoker Alcohol intake: never Household members: family Housing: House History of recent travel: No Physical Exam Const: COMMON NORMALS: no acute distress, patient oriented x3 and healthy appearing HENMT: COMMON NORMALS: normocephalic and atraumatic HEAD & SCALP: normocephalic and atraumatic Eye: COMMON NORMALS: Equal, round and reactive pupils present and EOMs intact bilaterally PUPIL: Yes Equal, round and reactive pupils present Neck/C-Spine: COMMON NORMALS: full ROM and supple Chest: COMMONS NORMALS: normal inspection of the chest and normal palpation of entire chest wall Resp: COMMON NORMALS: normal respiratory effort, No retractions, No use of accessory muscles and clear to auscultation bilaterally AUSCULTATION: clear to auscultation bilaterally Cardio: COMMON NORMALS: regular rate, regular rhythm and No murmurs present (Cardio) RATE: regular rate RHYTHM: regular rhythm GI: COMMON NORMALS: non-tender and no masses OTHER: distended abdomen Extremity: COMMON NORMALS: normal to inspection and full ROM Neuro: COMMON NORMALS: patient oriented x3, moves all extremities and no focal motor deficits Psych: COMMON NORMALS: mental status grossly normal, Normal thought process present and cooperative THOUGHT PROCESS: Normal thought process present Skin: COMMON NORMALS: no rashes or lesions noted and no wounds GENERAL SKIN EXAM: no rashes or lesions noted Course Vital Signs: Vital signs: Vital Signs Temperature 98.0 F 08/12/20 05:15 Pulse Rate 95 08/12/20 10:19 Respiratory Rate 16 08/12/20 10:19 Blood Pressure 163/97 08/12/20 10:19 Pulse Oximetry 97 08/12/20 10:19 MDM - Weakness Lab Data: Labs: Lab Results 08/12/20 08/12/20 08/12/20 Range/Units 05:30 05:30 05:30 WBC 10.2 H (4.0-10.0) 10^3/ uL RBC 3.02 L (4.1-5.3) 10^6/u L Hgb 9.3 L (11.7-16.6) g/dL Hct 30.0 L (42.0-52.0) % MCV 99.3 H (80-94) fL MCH 30.8 (28.0-34.0) pg MCHC 31.0 (30.0-36.0) g/dL RDW 15.2 H (12.1-15.1) % Plt Count 311 (130-400) 10^3/c mm MPV 9.7 (7.4-10.4) fL Neut % (Auto) 68.2 % Lymph % (Auto) 20.4 % [place] % (Auto) 8.5 % Eos % (Auto) 1.9 % Baso % (Auto) 0.4 % Neut # (Auto) 6.94 (1.8-7.7) 10^3/u L Lymph # (Auto) 2.1 (0.8-4.8) 10^3/u L [place] # (Auto) 0.9 (0.2-0.9) 10^3/u L Eos # (Auto) 0.2 (0.0-0.8) 10^3/u L Baso # (Auto) 0.0 (0.0-0.1) 10^3/u L Nucleated RBC % (a uto) 0 % Nucleated RBCs # 0.0 /100WBC Sodium 134 L (136-145) mmol/L Potassium 4.9 (3.5-5.1) mmol/L Chloride 94 L (98-107) mmol/L Carbon Dioxide 28 (22-29) mmol/L Anion Gap 16.9 (5-19) BUN 53 H (6-20) mg/dL Creatinine 8.2 H* (0.7-1.2) mg/dL GFR Calculation 6.8 L (90-130) mL/min Glucose 78 (65-115) mg/dL Calculated Osmolal ity 291 (285-295) mOsm/k g Calcium 8.8 (8.5-10.5) mg/dL Total Bilirubin 0.2 (0.15-1.2) mg/dL AST 40 (0-40) U/L ALT 21 (0-41) U/L Alkaline Phosphata se 75 (40-130) IU/L Troponin T Baselin e 131 H* (0-15) ng/L Troponin T 120 Min [place] (0-15) ng/L Delta Troponin T (0-10) ABS# NT-Pro-B Natriuret Pep 3752 H (0-125) pg/mL Total Protein 5.2 L (6.6-8.7) g/dL Albumin 2.9 L (3.5-5.2) g/dL Globulin 2.3 (1.3-4.6) g/dL 08/12/20 Range/Units 09:06 WBC (4.0-10.0) 10^3/ uL RBC (4.1-5.3) 10^6/u L Hgb (11.7-16.6) g/dL Hct (42.0-52.0) % MCV (80-94) fL MCH (28.0-34.0) pg MCHC (30.0-36.0) g/dL RDW (12.1-15.1) % Plt Count (130-400) 10^3/c mm MPV (7.4-10.4) fL Neut % (Auto) % Lymph % (Auto) % [place] % (Auto) % Eos % (Auto) % Baso % (Auto) % Neut # (Auto) (1.8-7.7) 10^3/u L Lymph # (Auto) (0.8-4.8) 10^3/u L [place] # (Auto) (0.2-0.9) 10^3/u L Eos # (Auto) (0.0-0.8) 10^3/u L Baso # (Auto) (0.0-0.1) 10^3/u L Nucleated RBC % (a uto) % Nucleated RBCs # /100WBC Sodium (136-145) mmol/L Potassium (3.5-5.1) mmol/L Chloride (98-107) mmol/L Carbon Dioxide (22-29) mmol/L Anion Gap (5-19) BUN (6-20) mg/dL Creatinine (0.7-1.2) mg/dL GFR Calculation (90-130) mL/min Glucose (65-115) mg/dL Calculated Osmolal ity (285-295) mOsm/k g Calcium (8.5-10.5) mg/dL Total Bilirubin (0.15-1.2) mg/dL AST (0-40) U/L ALT (0-41) U/L Alkaline Phosphata se (40-130) IU/L Troponin T Baselin e (0-15) ng/L Troponin T 120 Min [place] 123.5 H (0-15) ng/L Delta Troponin T -7.5 L (0-10) ABS# NT-Pro-B Natriuret Pep (0-125) pg/mL Total Protein (6.6-8.7) g/dL Albumin (3.5-5.2) g/dL Globulin (1.3-4.6) g/dL Imaging Data^: CXR: Attestation: I personally reviewed and interpreted this imaging study as follows: My impression: no acute abnormality xr shoulder: Attestation: I personally reviewed and interpreted this imaging study as follows: My impression: no acute abnormality EKG Data^: EKG 1: Attestation: I personally reviewed and interpreted this EKG as follows: EKG interpretation date: 08/12/20 EKG interpretation time: 05:20 Interpretation: nsr hr [address] or t wave abnormalities qrs 123 qtc 424 Discharge Plan Discharge Patient Disposition: Home Clinical Impression: Atypical chest pain, End-stage renal disease (ESRD) Condition: Stable Prescriptions: New isosorbide mononitrate 30 mg tablet extended release 24 hr 30 mg PO DAILY Qty: 30 RF: 0 No Action aspirin 81 mg tablet,delayed release (DR/EC) 81 mg PO DAILY RF: 0 Hold Instructions: Resume on 02/29/20. clonidine 0.3 mg/24 hr patch weekly See Rx Instructions .ROUTE .COMPLEX RF: 0 hydralazine 25 mg tablet See Rx Instructions .ROUTE .COMPLEX RF: 0 alfuzosin 10 mg Tablet Extended Release 24 Hr 10 mg PO DAILY RF: 0 RenaPlex-D 800 mcg-12.5 mg -2,000 unit Tablet 1 tab PO DAILY RF: 0 allopurinol 100 mg Tablet 100 mg PO DAILY RF: 0 escitalopram oxalate 20 mg Tablet 40 mg PO DAILY RF: 0 clopidogrel 75 mg Tablet 75 mg PO DAILY RF: 0 Hold Instructions: Resume on 03/02/20. simvastatin 40 mg Tablet 40 mg PO DAILY RF: 0 pantoprazole 40 mg tablet,delayed release (DR/EC) 40 mg PO DAILY RF: 0 losartan 100 mg tablet 100 mg PO DAILY RF: 0 finasteride 5 mg tablet 5 mg PO DAILY RF: 0 clonidine HCl 0.1 mg tablet 0.1 mg PO TID RF: 0 minoxidil 2.5 mg tablet 2.5 mg PO BID RF: 0 lidocaine-prilocaine 2.5-2.5 % cream See Rx Instructions .ROUTE .COMPLEX RF: 0 levothyroxine 25 mcg tablet 25 mcg PO DAILY RF: 0 Procardia XL 60 mg tablet extended release 24hr 60 mg PO BID RF: 0 bumetanide 1 mg tablet 1 mg PO DAILY RF: 0 metoprolol tartrate 25 mg tablet 12.5 mg PO BID RF: 0 Discharge Orders: Discharge ED (Routine); Ordered 08/12/20 Ordered By: Marvin Tilley Discharge Diet: Usual diet Discharge Activity: Resume usual activity Patient Instructions: Opioid Safety Activity Restrictions/Additional Instructions: Case management will call to set you up for a stress test. Sign Out Sign Out Data: Patient Sign Out occurred on 08/12/20 at 05:54. Patient's care was discussed, and care was transferred from to Marvin Tilley DO. Coding Level of Care Code ED Supervisor [employer] for [employer]g Fwd Exam Comprehensive Documented by User: Marvin Tilley DO 08/12/20 12:06 HPI - Weakness General: Chief complaint: Extremity Problem,Nontraumatic Stated complaint: Right Shoulder Pain, SOB Time Seen by Provider: 08/12/20 05:13 [facility] ED PFSH: Medical History Bilateral hydronephrosis Bradycardia CVA (cerebral vascular accident) Dependence on peritoneal dialysis ESRD (end stage renal disease) Hypertension Incomplete bladder emptying Polycystic kidney disease Surgical History AV fistula History of colonoscopy 2020 at [facility] History of surgical procedure Peritoneal dialysis catheter placement by Dr. Kamara 2016 S/P hemodialysis catheter insertion (03/13/20) 23cm long exchanged right IJ Removed on 06/11/2020 Family History Mother Chronic kidney disease (CKD) Other Hypertension Social History (Updated 08/01/20 @ 13:[address]) Smoking and tobacco status: former smoker Alcohol intake: never Household members: family Housing: House History of recent travel: No Course Vital Signs: Vital signs: Vital Signs Temperature 98.0 F 08/12/20 05:15 Pulse Rate 95 08/12/20 10:19 Respiratory Rate 16 08/12/20 10:19 Blood Pressure 163/97 08/12/20 10:19 Pulse Oximetry 97 08/12/20 10:19 MDM - Weakness MDM Narrative: Medical decision making narrative: Care assumed at change of shift. Second troponin is decreased. Overall the drug level is high but there is usual baseline is likely due to his end-stage renal disease he is completely symptom-free at this time we will discharge him home he is due for dialysis today we will set him up for an outpatient sestamibi stress test start him on Imdur daily continue aspirin follow-up after stress test completed. Lab Data: Labs: Lab Results 08/12/20 08/12/20 08/12/20 Range/Units 05:30 05:30 05:30 WBC 10.2 H (4.0-10.0) 10^3/ uL RBC 3.02 L (4.1-5.3) 10^6/u L Hgb 9.3 L (11.7-16.6) g/dL Hct 30.0 L (42.0-52.0) % MCV 99.3 H (80-94) fL MCH 30.8 (28.0-34.0) pg MCHC 31.0 (30.0-36.0) g/dL RDW 15.2 H (12.1-15.1) % Plt Count 311 (130-400) 10^3/c mm MPV 9.7 (7.4-10.4) fL Neut % (Auto) 68.2 % Lymph % (Auto) 20.4 % [place] % (Auto) 8.5 % Eos % (Auto) 1.9 % Baso % (Auto) 0.4 % Neut # (Auto) 6.94 (1.8-7.7) 10^3/u L Lymph # (Auto) 2.1 (0.8-4.8) 10^3/u L [place] # (Auto) 0.9 (0.2-0.9) 10^3/u L Eos # (Auto) 0.2 (0.0-0.8) 10^3/u L Baso # (Auto) 0.0 (0.0-0.1) 10^3/u L Nucleated RBC % (a uto) 0 % Nucleated RBCs # 0.0 /100WBC Sodium 134 L (136-145) mmol/L Potassium 4.9 (3.5-5.1) mmol/L Chloride 94 L (98-107) mmol/L Carbon Dioxide 28 (22-29) mmol/L Anion Gap 16.9 (5-19) BUN 53 H (6-20) mg/dL Creatinine 8.2 H* (0.7-1.2) mg/dL GFR Calculation 6.8 L (90-130) mL/min Glucose 78 (65-115) mg/dL Calculated Osmolal ity 291 (285-295) mOsm/k g Calcium 8.8 (8.5-10.5) mg/dL Total Bilirubin 0.2 (0.15-1.2) mg/dL AST 40 (0-40) U/L ALT 21 (0-41) U/L Alkaline Phosphata se 75 (40-130) IU/L Troponin T Baselin e 131 H* (0-15) ng/L Troponin T 120 Min [place] (0-15) ng/L Delta Troponin T (0-10) ABS# NT-Pro-B Natriuret Pep 3752 H (0-125) pg/mL Total Protein 5.2 L (6.6-8.7) g/dL Albumin 2.9 L (3.5-5.2) g/dL Globulin 2.3 (1.3-4.6) g/dL 08/12/20 Range/Units 09:06 WBC (4.0-10.0) 10^3/ uL RBC (4.1-5.3) 10^6/u L Hgb (11.7-16.6) g/dL Hct (42.0-52.0) % MCV (80-94) fL MCH (28.0-34.0) pg MCHC (30.0-36.0) g/dL RDW (12.1-15.1) % Plt Count (130-400) 10^3/c mm MPV (7.4-10.4) fL Neut % (Auto) % Lymph % (Auto) % [place] % (Auto) % Eos % (Auto) % Baso % (Auto) % Neut # (Auto) (1.8-7.7) 10^3/u L Lymph # (Auto) (0.8-4.8) 10^3/u L [place] # (Auto) (0.2-0.9) 10^3/u L Eos # (Auto) (0.0-0.8) 10^3/u L Baso # (Auto) (0.0-0.1) 10^3/u L Nucleated RBC % (a uto) % Nucleated RBCs # /100WBC Sodium (136-145) mmol/L Potassium (3.5-5.1) mmol/L Chloride (98-107) mmol/L Carbon Dioxide (22-29) mmol/L Anion Gap (5-19) BUN (6-20) mg/dL Creatinine (0.7-1.2) mg/dL GFR Calculation (90-130) mL/min Glucose (65-115) mg/dL Calculated Osmolal ity (285-295) mOsm/k g Calcium (8.5-10.5) mg/dL Total Bilirubin (0.15-1.2) mg/dL AST (0-40) U/L ALT (0-41) U/L Alkaline Phosphata se (40-130) IU/L Troponin T Baselin e (0-15) ng/L Troponin T 120 Min [place] 123.5 H (0-15) ng/L Delta Troponin T -7.5 L (0-10) ABS# NT-Pro-B Natriuret Pep (0-125) pg/mL Total Protein (6.6-8.7) g/dL Albumin (3.5-5.2) g/dL Globulin (1.3-4.6) g/dL Discharge Plan Discharge Patient Disposition: Home Clinical Impression: Atypical chest pain, End-stage renal disease (ESRD) Condition: Stable Prescriptions: New isosorbide mononitrate 30 mg tablet extended release 24 hr 30 mg PO DAILY Qty: 30 RF: 0 No Action aspirin 81 mg tablet,delayed release (DR/EC) 81 mg PO DAILY RF: 0 Hold Instructions: Resume on 02/29/20. clonidine 0.3 mg/24 hr patch weekly See Rx Instructions .ROUTE .COMPLEX RF: 0 hydralazine 25 mg tablet See Rx Instructions .ROUTE .COMPLEX RF: 0 alfuzosin 10 mg Tablet Extended Release 24 Hr 10 mg PO DAILY RF: 0 RenaPlex-D 800 mcg-12.5 mg -2,000 unit Tablet 1 tab PO DAILY RF: 0 allopurinol 100 mg Tablet 100 mg PO DAILY RF: 0 escitalopram oxalate 20 mg Tablet 40 mg PO DAILY RF: 0 clopidogrel 75 mg Tablet 75 mg PO DAILY RF: 0 Hold Instructions: Resume on 03/02/20. simvastatin 40 mg Tablet 40 mg PO DAILY RF: 0 pantoprazole 40 mg tablet,delayed release (DR/EC) 40 mg PO DAILY RF: 0 losartan 100 mg tablet 100 mg PO DAILY RF: 0 finasteride 5 mg tablet 5 mg PO DAILY RF: 0 clonidine HCl 0.1 mg tablet 0.1 mg PO TID RF: 0 minoxidil 2.5 mg tablet 2.5 mg PO BID RF: 0 lidocaine-prilocaine 2.5-2.5 % cream See Rx Instructions .ROUTE .COMPLEX RF: 0 levothyroxine 25 mcg tablet 25 mcg PO DAILY RF: 0 Procardia XL 60 mg tablet extended release 24hr 60 mg PO BID RF: 0 bumetanide 1 mg tablet 1 mg PO DAILY RF: 0 metoprolol tartrate 25 mg tablet 12.5 mg PO BID RF: 0 Discharge Orders: Discharge ED (Routine); Ordered 08/12/20 Ordered By: Marvin Tilley Discharge Diet: Usual diet Discharge Activity: Resume usual activity Patient Instructions: Opioid Safety Activity Restrictions/Additional Instructions: Case management will call to set you up for a stress test. Sign Out Sign Out Data: Patient Sign Out occurred on 08/12/20 at 05:54. Patient's care was discussed, and care was transferred from to Marvin Tilley DO. Coding Level of Care Code ED Supervisor [employer] for Eric Fwd Exam Comprehensive
[2020-08-12 05:36] LABS: Basophils % 0.4 %; Eosinophils # 0.2 10^3/uL (0.0-0.8); Eosinophils % 1.9 %; Hemoglobin 9.3 g/dL (11.7-16.6); Lymphocytes # 2.1 10^3/uL (0.8-4.8); Lymphocytes % 20.4 %; Mean Corpuscular Hemoglobin 30.8 pg (28.0-34.0); Mean Corpuscular Volume 99.3 fL (80-94); Mean Platelet Volume 9.7 fL (7.4-10.4); Monocytes # 0.9 10^3/uL (0.2-0.9); Monocytes % 8.5 %; Neutrophils # 6.94 10^3/uL (1.8-7.7); Neutrophils % 68.2 %; Nucleated Red Blood Cells % 0 %; Platelet Count 311 10^3/cmm (130-400); Red Blood Count 3.02 10^6/uL (4.1-5.3); Red Cell Distribution Width 15.2 % (12.1-15.1); White Blood Count 10.2 10^3/uL (4.0-10.0)
[2020-08-12 06:00] LABS: Troponin(5th) Baseline 131 ng/L (0-15)
[2020-08-12 06:08] LABS: Alanine Aminotransferase 21 U/L (0-41); Albumin Level 2.9 g/dL (3.5-5.2); Alkaline Phosphatase 75 IU/L (40-130); Anion Gap 16.9 (5-19); Aspartate Amino Transferase 40 U/L (0-40); Blood Urea Nitrogen 53 mg/dL (6-20); Calcium 8.8 mg/dL (8.5-10.5); Carbon Dioxide 28 mmol/L (22-29); Chloride 94 mmol/L (98-107); Globulin 2.3 g/dL (1.3-4.6); Glomerular Filtration Rate 6.8 mL/min (90-130); Glucose 78 mg/dL (65-115); NT Pro B Type Natriuretic Pept 3752 pg/mL (0-125); Osmolality Calculated 291 mOsm/kg (285-295); Potassium 4.9 mmol/L (3.5-5.1); Sodium 134 mmol/L (136-145); Total Bilirubin 0.2 mg/dL (0.15-1.2); Total Protein 5.2 g/dL (6.6-8.7)
--- NOTE | 2020-08-12 07:18 | ECG_ITS ---
[facility] Test Date: 2020-08-12 Pat Name: Navneet Savage Department: Room: Gender: Male Application Integration Specialist: : 1965 Requested By: Ghada Fontanez Order Number: [id number] Nate MD: Dora Mustafa M.D. Measurements Intervals [place] Rate: 77 P: 16 OR: 139 QRS: -29 QRSD: 117 T: 38 QT: 391 QTc: 444 Interpretive Statements SINUS RHYTHM INCOMPLETE RIGHT BUNDLE BRANCH BLOCK PROBABLE SEPTAL MYOCARDIAL INFARCTION , OF INDETERMINATE AGE Compared to ECG 08/08/2020 21:10:11 Incomplete right bundle-branch block now present Left-axis deviation no longer present Myocardial infarct finding still present Electronically Signed On 08-12-2020 13:02:15 CDT by Dora Mustafa M.D. [id number]
--- NOTE | 2020-08-12 07:49 | PC.NURSE ---
patient denied any pain, no acute distress noted at this time.
[2020-08-12 10:00] LABS: Troponin 5 2HR 123.5 ng/L (0-15); Troponin 5 2HR Delta -7.5 ABS# (0-10)
--- NOTE | 2020-08-13 09:04 | DCPLANNER ---
bike shop manager had message to schedule an out patient stress test for patient. bike shop manager called patient at phone number [phone], to confirm that patient still wanted to have stress test, and to confirm who patient sees for primary care. bike shop manager spoke with patient, he stated that he did not want to have the stress test at this time. Patient did say that he wanted skilled nursing case manager to get him established with a primary care physician. bike shop manager called [facility], spoke with Krista. A follow up appointment was scheduled for Tuesday, August 04, 2020 at 7:[address] Chavez. bike shop manager called patient and gave patient the appointment information. bike shop manager also informed patient that the clinic will send patient a letter and that he must call the clinic to confirm the appointment. If he does not then the appointment will be cancelled. bike shop manager stressed the importance of keeping this appointment, and if he could not make it he could call and cancel the appointment, skilled nursing case manager gave patient the phone number to the clinic. Patient stated that he would attend the appointment. Patient gave skilled nursing case manager an updated address, skilled nursing case manager called the clinic and had clinic update his address.
--- NOTE | 2020-09-18 12:52 | DCPLANNER ---
Patient had a follow up appointment scheduled for 09.04.[address] Cantrell at [facility] - patient did attend appointment.
== END 2020-08-12 10:21 | disposition home or self-care (01) ==
PROVIDERS: Emergency Medicine; Emergency Provider Family Medicine
DX: R07.89 Other chest pain (principal); I12.0 Hypertensive chronic kidney disease with stage 5 chronic kidney disease or end stage renal disease; N18.6 End stage renal disease; Z99.2 Dependence on renal dialysis; Z86.73 Personal history of transient ischemic attack (TIA), and cerebral infarction without residual deficits; Z87.891 Personal history of nicotine dependence; Z79.82 Long term (current) use of aspirin; Z79.02 Long term (current) use of antithrombotics/antiplatelets
CPT/HCPCS: 71045; 73030; 80053; 83880; 84484; 85025; 93005; 99284

== ENCOUNTER 2020-08-15 15:12 | Emergency (ER) | payer MEDICARE, MEDICAID, SELFPAY ==
[2020-08-15 15:14] VITALS: BP 156/91; PULSE 91; RESP 16; TEMP 37; O2SAT 97; BMI 28.2
--- NOTE | 2020-08-15 15:47 | US_ITS ---
WS: [id number] ULTRASOUND-GUIDED DIAGNOSTIC AND THERAPEUTIC PARACENTESIS Procedure, risks, and complications have been explained to the patient. Consent is obtained. Utilizing aseptic technique and 1% buffered lidocaine, a small dermatome was made through which a 5 F rench Yueh catheter was inserted. Approximately 6000 ml of clear peritoneal fluid was obtained witho ut difficulty. No complications encountered. Peritoneal fluid collected for analysis as requested. US/US paracentesis [id number] [id number] IMPRESSION: Uncomplicated paracentesis yielding 6000 ml of peritoneal fluid.
[2020-08-15 15:54] VITALS: BP 151/99; RESP 22; O2SAT 92
--- NOTE | 2020-08-15 16:10 | W.ED.ABDPA2 ---
HPI - Abdominal Pain General: Chief Complaint: Abdominal Pain Stated Complaint: RESPIRATORY DISTRESS/ EDEMA Time Seen by Provider: 08/15/20 15:14 History of Present Illness: HPI narrative: This patient is a 55 year old male presenting with abdominal pain and swelling. He feels like he needs to have the fluid drained. He last had it drained about 2 weeks ago and has an appointment to have it drained again in about another week. He is a dialysis patient and had dialysis yesterday at his normal time. He says they weren't able to do a full run due to clotting. He arrived with chief complaint per EMS of shortness of breath, but he says that is due to his abd being so swollen. He is having abdominal pain which is not any worse than normal when he is swollen. MD elicited complaint: abdominal pain Pertinent past history: other (cirrhosis, ESRD) Onset (ago): day(s) (2) Pain Consistency: constant Location: Diffuse Severity: moderate Quality: aching and fullness Radiation: none Migration to: no migration Exacerbating factors: movement Relieving factors: nothing Associated Symptoms: Reports diarrhea; Denies fever(s) Review of Systems Const: Reports: fatigue and malaise; Denies: fever(s) Card: Reports: edema and swelling of feet/ankles; Denies: chest pain Resp: Reports: dyspnea GI: Reports: abdominal pain and diarrhea Skin/Breast: Denies: erythema Neuro: Denies: numbness in extremities or weakness in extremities Endo: Denies: polyuria Lucas/Lymph: Reports: easy bruising PFS ED PFSH: Medical History Bilateral hydronephrosis Bradycardia CVA (cerebral vascular accident) Dependence on peritoneal dialysis ESRD (end stage renal disease) Hypertension Incomplete bladder emptying Polycystic kidney disease Surgical History AV fistula History of colonoscopy 2019 at [facility] History of surgical procedure Peritoneal dialysis catheter placement by Dr. Kamara 2015 S/P hemodialysis catheter insertion (03/13/20) 23cm long exchanged right IJ Removed on 06/11/2020 Family History Mother Chronic kidney disease (CKD) Other Hypertension Social History Smoking and tobacco status: former smoker Alcohol intake: never Household members: family Housing: House History of recent travel: No Physical Exam Const: COMMON NORMALS: no acute distress, patient oriented x3, no limitations and alert GENERAL APPEARANCE: cooperative and ill appearing HENMT: HEAD & SCALP: normal to inspection FACE & SINUS: normal facial exam Eye: GENERAL EYE: appearance normal, both eyes and all related structures Neck/C-Spine: COMMON NORMALS: supple, no meningeal signs and no JVD Chest: COMMONS NORMALS: normal inspection of the chest Resp: COMMON NORMALS: normal respiratory effort, No use of accessory muscles and clear to auscultation bilaterally AUSCULTATION: clear to auscultation bilaterally Cardio: COMMON NORMALS: no JVD, regular rate, regular rhythm and No murmurs present (Cardio) RATE: regular rate RHYTHM: regular rhythm GI: INSPECTION: Yes Abdominal wall edema, Yes abdominal distension and Yes Fluid wave present AUSCULTATION: Yes normoactive bowel sounds PERCUSSION: Fluid wave present Back/Pelvis: COMMON NORMALS: thoracic and lumbar spine normal to inspection Extremity: COMMON NORMALS: normal to inspection GENERAL: Yes edema Neuro: COMMON NORMALS: patient oriented x3, moves all extremities, no focal motor deficits and no sensory deficits noted SENSORIUM/ORIENTATION: Yes alert MENINGEAL SIGNS: Yes no meningeal signs Psych: COMMON NORMALS: mental status grossly normal, cooperative and normal affect Skin: COMMON NORMALS: no rashes or lesions noted and turgor normal GENERAL SKIN EXAM: no rashes or lesions noted and turgor normal Course ED course: US guided paracentesis - patient felt better after and wanted to go home. Vital Signs: Vital signs: Vital Signs Temperature 98.6 F 08/15/20 15:14 Pulse Rate 80 08/15/20 16:26 Respiratory Rate 22 H 08/15/20 15:54 Blood Pressure 146/95 08/15/20 16:26 Pulse Oximetry 97 08/15/20 16:26 MDM - Abdominal Pain Lab Data: Labs: Lab Results 08/15/20 08/15/20 08/15/20 Range/Units 15:31 15:31 16:31 WBC 8.8 (4.0-10.0) 10^3/ uL RBC 2.62 L (4.1-5.3) 10^6/u L Hgb 8.2 L (11.7-16.6) g/dL Hct 25.4 L (42.0-52.0) % MCV 96.9 H (80-94) fL MCH 31.3 (28.0-34.0) pg MCHC 32.3 (30.0-36.0) g/dL RDW 16.7 H (12.1-15.1) % Plt Count 274 (130-400) 10^3/c mm MPV 9.9 (7.4-10.4) fL Neut % (Auto) 70.7 % Lymph % (Auto) 17.6 % Banks % (Auto) 10.0 % Eos % (Auto) 0.9 % Baso % (Auto) 0.3 % Neut # (Auto) 6.20 (1.8-7.7) 10^3/u L Lymph # (Auto) 1.5 (0.8-4.8) 10^3/u L Banks # (Auto) 0.9 (0.2-0.9) 10^3/u L Eos # (Auto) 0.1 (0.0-0.8) 10^3/u L Baso # (Auto) 0.0 (0.0-0.1) 10^3/u L Nucleated RBC % (a uto) 0 % Nucleated RBCs # 0.0 /100WBC PT 13.00 (12.1-14.9) SECO NDS INR 0.97 (0.8-1.2) Sodium 134 L (136-145) mmol/L Potassium 4.2 (3.5-5.1) mmol/L Chloride 95 L (98-107) mmol/L Carbon Dioxide 29 (22-29) mmol/L Anion Gap 14.2 (5-19) BUN 38 H (6-20) mg/dL Creatinine 6.2 H* (0.7-1.2) mg/dL GFR Calculation 9.4 L (90-130) mL/min Glucose 75 (65-115) mg/dL Calculated Osmolal ity 286 (285-295) mOsm/k g Calcium 8.9 (8.5-10.5) mg/dL Total Bilirubin 0.2 (0.15-1.2) mg/dL AST 24 (0-40) U/L ALT 14 (0-41) U/L Alkaline Phosphata se 65 (40-130) IU/L Total Protein 5.2 L (6.6-8.7) g/dL Albumin 2.6 L (3.5-5.2) g/dL Globulin 2.6 (1.3-4.6) g/dL Discharge Plan Discharge Patient Disposition: Home Clinical Impression: Polycystic kidney disease, ESRD (end stage renal disease) Ascites Qualifiers: Ascites type: other type Qualified Code(s): R18.8 - Other ascites Condition: Stable Prescriptions: No Action aspirin 81 mg tablet,delayed release (DR/EC) 81 mg PO DAILY RF: 0 Hold Instructions: Resume on 02/29/20. clonidine 0.3 mg/24 hr patch weekly See Rx Instructions .ROUTE .COMPLEX RF: 0 hydralazine 25 mg tablet See Rx Instructions .ROUTE .COMPLEX RF: 0 isosorbide mononitrate 30 mg tablet extended release 24 hr 30 mg PO DAILY Qty: 30 RF: 0 alfuzosin 10 mg Tablet Extended Release 24 Hr 10 mg PO DAILY RF: 0 RenaPlex-D 800 mcg-12.5 mg -2,000 unit Tablet 1 tab PO DAILY RF: 0 allopurinol 100 mg Tablet 100 mg PO DAILY RF: 0 escitalopram oxalate 20 mg Tablet 40 mg PO DAILY RF: 0 clopidogrel 75 mg Tablet 75 mg PO DAILY RF: 0 Hold Instructions: Resume on 03/02/20. simvastatin 40 mg Tablet 40 mg PO DAILY RF: 0 pantoprazole 40 mg tablet,delayed release (DR/EC) 40 mg PO DAILY RF: 0 losartan 100 mg tablet 100 mg PO DAILY RF: 0 finasteride 5 mg tablet 5 mg PO DAILY RF: 0 clonidine HCl 0.1 mg tablet 0.1 mg PO TID RF: 0 minoxidil 2.5 mg tablet 5 mg PO BID RF: 0 lidocaine-prilocaine 2.5-2.5 % cream See Rx Instructions .ROUTE .COMPLEX RF: 0 levothyroxine 25 mcg tablet 25 mcg PO DAILY RF: 0 nifedipine [Procardia XL] 60 mg tablet extended release 24hr 60 mg PO BID RF: 0 bumetanide 1 mg tablet 1 mg PO DAILY RF: 0 metoprolol tartrate 25 mg tablet 12.5 mg PO BID RF: 0 Discharge Orders: Discharge ED (Routine); Ordered 08/15/20 Ordered By: Fernanda Mehta Discharge Diet: Usual diet Discharge Activity: Resume usual activity Patient Instructions: Ascites (ED), Opioid Safety Activity Restrictions/Additional Instructions: Follow up with your regular dialysis and PCP. Coding Level of Care Code ED Last Puller for Eric Fwd Exam Comprehensive
--- NOTE | 2020-08-15 16:15 | PC.NURSE ---
1615: time out preformed with Dr. Loja. consent signed. Site marked. Appropriate equipment at bedside. 146/95, 81, 97% 20 resp
[2020-08-15 16:26] VITALS: BP 146/95; PULSE 80; O2SAT 97
[2020-08-15 16:40] LABS: INR 0.97 (0.8-1.2)
[2020-08-15 16:44] LABS: Basophils % 0.3 %; Eosinophils # 0.1 10^3/uL (0.0-0.8); Eosinophils % 0.9 %; Hematocrit 25.4 % (42.0-52.0); Hemoglobin 8.2 g/dL (11.7-16.6); Lymphocytes # 1.5 10^3/uL (0.8-4.8); Lymphocytes % 17.6 %; Mean Corpuscular HGB Conc 32.3 g/dL (30.0-36.0); Mean Corpuscular Hemoglobin 31.3 pg (28.0-34.0); Mean Corpuscular Volume 96.9 fL (80-94); Mean Platelet Volume 9.9 fL (7.4-10.4); Monocytes # 0.9 10^3/uL (0.2-0.9); Neutrophils % 70.7 %; Nucleated Red Blood Cells % 0 %; Platelet Count 274 10^3/cmm (130-400); Red Blood Count 2.62 10^6/uL (4.1-5.3); Red Cell Distribution Width 16.7 % (12.1-15.1); White Blood Count 8.8 10^3/uL (4.0-10.0)
[2020-08-15 16:51] LABS: Alanine Aminotransferase 14 U/L (0-41); Albumin Level 2.6 g/dL (3.5-5.2); Alkaline Phosphatase 65 IU/L (40-130); Anion Gap 14.2 (5-19); Aspartate Amino Transferase 24 U/L (0-40); Blood Urea Nitrogen 38 mg/dL (6-20); Calcium 8.9 mg/dL (8.5-10.5); Carbon Dioxide 29 mmol/L (22-29); Chloride 95 mmol/L (98-107); Globulin 2.6 g/dL (1.3-4.6); Glomerular Filtration Rate 9.4 mL/min (90-130); Glucose 75 mg/dL (65-115); Osmolality Calculated 286 mOsm/kg (285-295); Potassium 4.2 mmol/L (3.5-5.1); Sodium 134 mmol/L (136-145); Total Bilirubin 0.2 mg/dL (0.15-1.2); Total Protein 5.2 g/dL (6.6-8.7)
[2020-08-16 15:30] LABS: Coronavirus Test Green County Not Detected
--- NOTE | 2020-08-16 16:23 | PC.NURSE ---
Called pt and notified of negative COVID result
== END 2020-08-15 18:03 | disposition home or self-care (01) ==
PROVIDERS: Emergency Provider Emergency Medicine
DX: I12.0 Hypertensive chronic kidney disease with stage 5 chronic kidney disease or end stage renal disease (principal); N18.6 End stage renal disease; Q61.3 Polycystic kidney, unspecified; R18.8 Other ascites; Z79.82 Long term (current) use of aspirin; Z79.02 Long term (current) use of antithrombotics/antiplatelets; Z86.73 Personal history of transient ischemic attack (TIA), and cerebral infarction without residual deficits; Z87.891 Personal history of nicotine dependence
CPT/HCPCS: 49083; 80053; 85025; 85610; 87070; 87075; 87205; 87635; 99285

== ENCOUNTER → 2020-08-29 09:02 | Day surgery (SDC) | payer MEDICARE, MEDICAID, SELFPAY ==
--- NOTE | 2020-08-29 09:05 | US_ITS ---
WS: [id number] ULTRASOUND-GUIDED PARACENTESIS CLINICAL INFORMATION: ASCITES COMPARISON: None. Procedure Informed consent: The risks, benefits, and alternatives of the procedure were discussed with the lisa ent. Verbal and written consent was obtained. Timeout: A timeout was performed to confirm the correct patient, procedure, and site. Preparation: A suitable skin site was identified. The patient was prepped and draped in usual sterile fashion. Lidocaine 1% was used for local anesthesia. Catheter: 4 Cameroonian One-step Yueh catheter. Side: Right Lower quadrant. Fluid Volume: 8200 ml Color: Clear yellow DISPOSITION: Discarded safely. Complications: None. Patient disposition: Discharged from the department in stable condition. US/US paracentesis abd w [id number] IMPRESSION: Uncomplicated ultrasound-guided paracentesis. Removal of 8200 cc
[2020-08-29 09:32] VITALS: BP 155/95; PULSE 56; RESP 18; TEMP 36.6; O2SAT 98; BMI 29.0
[2020-08-29 09:36] LABS: INR 0.95 (0.8-1.2)
== END ==
PROVIDERS: Radiology Neuroradiology; Visit Provider Internal Medicine Nephrology
DX: R18.8 Other ascites (principal)
CPT/HCPCS: 49083; 85610; 96365; P9047

== ENCOUNTER 2020-09-12 09:04 | Day surgery (SDC) | payer MEDICARE, MEDICAID, SELFPAY ==
--- NOTE | 2020-09-12 09:10 | US_ITS ---
WS: [id number] ULTRASOUND-GUIDED PARACENTESIS CLINICAL INFORMATION: ascites COMPARISON: None. Procedure Informed consent: The risks, benefits, and alternatives of the procedure were discussed with the lisa ent. Verbal and written consent was obtained. Timeout: A timeout was performed to confirm the correct patient, procedure, and site. Preparation: A suitable skin site was identified. The patient was prepped and draped in usual sterile fashion. Lidocaine 1% was used for local anesthesia. Catheter: 4 Monegasque One-step Yueh catheter. Side: Left Lower quadrant. Fluid Volume: 6800 ml Color: Clear yellow DISPOSITION: Discarded safely. Complications: None. Patient disposition: Discharged from the department in stable condition. US/US paracentesis abd w [id number] IMPRESSION: Uncomplicated ultrasound-guided paracentesis. Removal of 6800 cc
[2020-09-12 09:36] VITALS: BMI 29.0
[2020-09-12 09:37] VITALS: BP 166/97; PULSE 54; RESP 18; TEMP 36.7; O2SAT 100
[2020-09-12 11:07] VITALS: BP 147/81; PULSE 57; RESP 18; O2SAT 97
[2020-09-12 11:36] VITALS: BP 147/81; PULSE 60; RESP 18; O2SAT 99
== END 2020-09-12 11:38 | disposition home or self-care (01) ==
LOC: GILAB 09:05
PROVIDERS: PCP Family Medicine Adult Medicine; Visit Provider Internal Medicine Nephrology
DX: R18.8 Other ascites (principal)
CPT/HCPCS: 49083; 96365; P9047

== ENCOUNTER → 2020-09-19 08:36 | Day surgery (SDC) | payer MEDICARE, MEDICAID, SELFPAY ==
[2020-09-19 09:10] VITALS: BP 160/87; PULSE 50; RESP 18; TEMP 36.6; O2SAT 97
--- NOTE | 2020-09-19 09:20 | US_ITS ---
WS: [id number] ULTRASOUND-GUIDED THERAPEUTIC PARACENTESIS Procedure, risks, and complications have been explained to the patient. Consent is obtained. Utilizing aseptic technique and 1% buffered lidocaine, a small dermatome was made through which a 5 F rench Yueh catheter was inserted. Approximately 2900 ml of clear peritoneal fluid was obtained witho ut difficulty. No complications encountered. US/US paracentesis abd w [id number] IMPRESSION: Uncomplicated paracentesis yielding 2900 ml of peritoneal fluid.
--- NOTE | 2020-09-19 10:04 | PC.NURSE ---
[address] Loja. Albumin 25 gm to infuse as ordered. Lot # [id number] Expires Jan 12. Pt tolerating without difficulty. VSS.
[2020-09-19 10:25] VITALS: BP 169/89; PULSE 50; RESP 18; O2SAT 97
--- NOTE | 2020-09-19 10:56 | PC.NURSE ---
1030 Draining from abdomen stopped. Pt moved to back and encouraged to cough. Pt moved back to left side. Still no further drainage from abdomen. 2,[address] Loja in US notified. OK to remove para catheter per Dr. Loja. Site to left abdomen sealed with dermabond and covered with 2x2 and opsite. No bleeding noted. Albumin 25 g infused as ordered. VSS. Pt off unit ambulatory. Tolerated procedure well.
== END ==
PROVIDERS: PCP Family Medicine Adult Medicine; Visit Provider Internal Medicine Nephrology
DX: R18.8 Other ascites (principal)
CPT/HCPCS: 49083; 96365; 96366; P9047

== ENCOUNTER → 2020-09-26 11:30 | Day surgery (SDC) | payer MEDICARE, MEDICAID, SELFPAY ==
--- NOTE | 2020-09-26 11:34 | US_ITS ---
WS: [id number] ULTRASOUND-GUIDED PARACENTESIS CLINICAL INFORMATION: ASCITES COMPARISON: None. Procedure Informed consent: The risks, benefits, and alternatives of the procedure were discussed with the lisa ent. Verbal and written consent was obtained. Timeout: A timeout was performed to confirm the correct patient, procedure, and site. Preparation: A suitable skin site was identified. The patient was prepped and draped in usual sterile fashion. Lidocaine 1% was used for local anesthesia. Catheter: 4 Indonesian One-step Yueh catheter. Side: Left Lower quadrant. Fluid Volume: 4450 ml Color: Clear yellow DISPOSITION: Discarded safely. Complications: None. Patient disposition: Discharged from the department in stable condition. US/US paracentesis abd w [id number] IMPRESSION: Uncomplicated ultrasound-guided paracentesis. Removal of 4450 cc
[2020-09-26 11:47] VITALS: BP 209/105; PULSE 60; RESP 20; TEMP 36.7; O2SAT 99; BMI 29.0
[2020-09-26 12:58] VITALS: BP 205/101; PULSE 59; RESP 18; O2SAT 98
[2020-09-26 13:41] VITALS: BP 212/114; PULSE 72; RESP 18; O2SAT 98
--- NOTE | 2020-09-26 13:41 | PC.NURSE ---
PT HAS AN [facility]POINTMENT [facility] DR. BLANTON NOTIFIED OF PT ELEVATED BLOOD PRESSURE.
== END ==
PROVIDERS: PCP Family Medicine Adult Medicine; Visit Provider Internal Medicine Nephrology
DX: R18.8 Other ascites (principal)
CPT/HCPCS: 49083; 96365; P9047

== ENCOUNTER → 2020-10-03 10:38 | Day surgery (SDC) | payer MEDICARE, MEDICAID, SELFPAY ==
--- NOTE | 2020-10-03 11:00 | US_ITS ---
WS: [id number] ULTRASOUND-GUIDED THERAPEUTIC PARACENTESIS Procedure, risks, and complications have been explained to the patient. Consent is obtained. Utilizing aseptic technique and 1% buffered lidocaine, a small dermatome was made through which a 5 F rench Yueh catheter was inserted. Approximately 1300 ml of clear peritoneal fluid was obtained witho ut difficulty. No complications encountered. US/US paracentesis abd w [id number] IMPRESSION: Uncomplicated paracentesis yielding 1300 ml of peritoneal fluid.
[2020-10-03 11:12] VITALS: BP 152/88; PULSE 58; RESP 18; TEMP 36.3; O2SAT 97
[2020-10-03 11:55] VITALS: BP 142/80; PULSE 61; RESP 18; O2SAT 98
== END ==
PROVIDERS: PCP Family Medicine Adult Medicine; Visit Provider Internal Medicine Nephrology
DX: R18.8 Other ascites (principal)
CPT/HCPCS: 49083; 96365; P9047

== ENCOUNTER → 2020-10-08 08:05 | Day surgery (SDC) | payer MEDICARE, MEDICAID, SELFPAY ==
[2020-10-08 08:21] VITALS: BP 183/107; PULSE 63; RESP 16; TEMP 36.7; O2SAT 99; BMI 28.5
--- NOTE | 2020-10-08 09:21 | US_ITS ---
WS: [id number] ULTRASOUND-GUIDED PARACENTESIS CLINICAL INFORMATION: ascites COMPARISON: None. Procedure Informed consent: The risks, benefits, and alternatives of the procedure were discussed with the lisa ent. Verbal and written consent was obtained. Timeout: A timeout was performed to confirm the correct patient, procedure, and site. Preparation: A suitable skin site was identified. The patient was prepped and draped in usual sterile fashion. Lidocaine 1% was used for local anesthesia. Catheter: 4 Azerbaijani One-step Yueh catheter. Side: Left Lower quadrant. Fluid Volume: 3100 ml Color: Clear yellow DISPOSITION: Discarded safely. Complications: None. Patient disposition: Discharged from the department in stable condition. US/US paracentesis abd w [id number] IMPRESSION: Uncomplicated ultrasound-guided paracentesis. Removal of 3100 cc
[2020-10-08 10:41] VITALS: BP 180/112; PULSE 60; RESP 18; O2SAT 100
[2020-10-08 11:00] VITALS: BP 180/112; PULSE 60; RESP 18; O2SAT 100
== END ==
PROVIDERS: PCP Family Medicine Adult Medicine; Visit Provider Internal Medicine Nephrology
DX: R18.8 Other ascites (principal)
CPT/HCPCS: 49083; 96365; P9047

== ENCOUNTER 2020-10-15 12:30 | Day surgery (SDC) | payer MEDICARE, MEDICAID, SELFPAY ==
--- NOTE | 2020-10-15 12:23 | US_ITS ---
WS: [id number] ULTRASOUND-GUIDED THERAPEUTIC PARACENTESIS Procedure, risks, and complications have been explained to the patient. Consent is obtained. Utilizing aseptic technique and 1% buffered lidocaine, a small dermatome was made through which a 5 F rench Yueh catheter was inserted. Approximately 3300 ml of clear peritoneal fluid was obtained witho ut difficulty. No complications encountered. US/US paracentesis abd w [id number] IMPRESSION: Uncomplicated paracentesis yielding 3300 ml of peritoneal fluid.
[2020-10-15 12:25] VITALS: BP 170/85; PULSE 47; RESP 18; TEMP 36.3; O2SAT 99; BMI 28.7
[2020-10-15 13:21] VITALS: BP 157/87; PULSE 49; RESP 16; TEMP 36.6; O2SAT 99
== END 2020-10-15 15:00 | disposition home or self-care (01) ==
LOC: GILAB 01-14 10:03
PROVIDERS: PCP Family Medicine Adult Medicine; Visit Provider Internal Medicine Nephrology
DX: R18.8 Other ascites (principal)
CPT/HCPCS: 49083; 96365; P9047

== ENCOUNTER → 2020-10-22 12:10 | Day surgery (SDC) | payer MEDICARE, MEDICAID, SELFPAY ==
--- NOTE | 2020-10-22 12:30 | US_ITS ---
WS: [id number] ULTRASOUND ABDOMEN LIMITED CLINICAL INFORMATION: ascites COMPARISON: None. FINDINGS: Ascites: Small volume abdominal ascites. Paracentesis not performed. US/US abdomen lmt fluid [id number] IMPRESSION: Small volume ascites.
[2020-10-22 12:33] VITALS: BP 166/90; PULSE 53; RESP 18; TEMP 36.2; O2SAT 98; BMI 27.7
--- NOTE | 2020-10-22 13:10 | PC.NURSE ---
pt was scanned by ultrasound it was determined that the pt did not have enough fluid to do the procedure today per Dr. Sullivan IV was D/C pt was then sent home
== END ==
PROVIDERS: PCP Family Medicine Adult Medicine; Visit Provider Internal Medicine Nephrology
DX: R18.8 Other ascites (principal)
CPT/HCPCS: 49083; 76705

== ENCOUNTER → 2020-11-05 09:32 | Day surgery (SDC) | payer MEDICARE, MEDICAID, SELFPAY ==
[2020-11-05 09:49] VITALS: BP 163/91; PULSE 63; RESP 18; TEMP 36.5; O2SAT 95
--- NOTE | 2020-11-05 10:01 | US_ITS ---
WS: [id number] ULTRASOUND-GUIDED PARACENTESIS CLINICAL INFORMATION: ascites COMPARISON: None. Procedure Informed consent: The risks, benefits, and alternatives of the procedure were discussed with the lisa ent. Verbal and written consent was obtained. Timeout: A timeout was performed to confirm the correct patient, procedure, and site. Preparation: A suitable skin site was identified. The patient was prepped and draped in usual sterile fashion. Lidocaine 1% was used for local anesthesia. Catheter: 4 Jordanian One-step Yueh catheter. Side: Left Lower quadrant. Fluid Volume: 5500 ml Color: Melissa DISPOSITION: Discarded safely. Complications: None. Patient disposition: Discharged from the department in stable condition. US/US paracentesis abd w [id number] IMPRESSION: Uncomplicated ultrasound-guided paracentesis. Removal of 5500 cc
[2020-11-05 10:02] VITALS: BMI 29.1
[2020-11-05 12:10] VITALS: BP 130/72; PULSE 61; RESP 16; TEMP 36.3; O2SAT 100
== END ==
PROVIDERS: PCP Family Medicine Adult Medicine; Visit Provider Internal Medicine Nephrology
DX: R18.8 Other ascites (principal)
CPT/HCPCS: 49083; 96365; P9047

== ENCOUNTER → 2020-11-12 09:14 | Day surgery (SDC) | payer MEDICARE, MEDICAID, SELFPAY ==
--- NOTE | 2020-11-12 09:36 | US_ITS ---
WS: [id number] ULTRASOUND-GUIDED THERAPEUTIC PARACENTESIS Procedure, risks, and complications have been explained to the patient. Consent is obtained. Utilizing aseptic technique and 1% buffered lidocaine, a small dermatome was made through which a 5 F rench Yueh catheter was inserted. Approximately 4200 ml of clear peritoneal fluid was obtained witho ut difficulty. No complications encountered. US/US paracentesis abd w [id number] IMPRESSION: Uncomplicated paracentesis yielding 4200 ml of peritoneal fluid.
[2020-11-12 09:45] VITALS: BP 183/97; PULSE 55; RESP 18; TEMP 36.6; O2SAT 98; BMI 29.0
[2020-11-12 11:15] VITALS: BP 146/79; PULSE 50; RESP 18; O2SAT 97
[2020-11-12 11:34] VITALS: BP 124/64; PULSE 52; RESP 18; O2SAT 97
== END ==
PROVIDERS: PCP Family Medicine Adult Medicine; Visit Provider Internal Medicine Nephrology
DX: R18.8 Other ascites (principal)
CPT/HCPCS: 49083; 96365; 96366; P9047

== ENCOUNTER → 2020-11-19 08:49 | Day surgery (SDC) | payer MEDICARE, MEDICAID, SELFPAY ==
--- NOTE | 2020-11-19 08:55 | US_ITS ---
WS: [id number] ULTRASOUND-GUIDED PARACENTESIS CLINICAL INFORMATION: ascites COMPARISON: None. Procedure Informed consent: The risks, benefits, and alternatives of the procedure were discussed with the lisa ent. Verbal and written consent was obtained. Timeout: A timeout was performed to confirm the correct patient, procedure, and site. Preparation: A suitable skin site was identified. The patient was prepped and draped in usual sterile fashion. Lidocaine 1% was used for local anesthesia. Catheter: 4 Mozambican One-step Yueh catheter. Side: Right Lower quadrant. Fluid Volume: 4300 ml Color: Melissa DISPOSITION: Discarded safely. Complications: None. Patient disposition: Discharged from the department in stable condition. US/US paracentesis abd w [id number] IMPRESSION: Uncomplicated ultrasound-guided paracentesis. Removal of 4300 cc
[2020-11-19 09:07] VITALS: BP 163/95; PULSE 56; RESP 18; TEMP 36.5; O2SAT 98
[2020-11-19 09:09] VITALS: BMI 29.0
--- NOTE | 2020-11-19 11:38 | PC.NURSE ---
Dr Seymour gave 10Ml lidocaine to pt prior to para being performed to numb area for procedure
== END ==
PROVIDERS: PCP Family Medicine Adult Medicine; Visit Provider Internal Medicine Nephrology
DX: R18.8 Other ascites (principal)
CPT/HCPCS: 49083; 96365; P9047

== ENCOUNTER → 2020-11-26 09:29 | Day surgery (SDC) | payer MEDICARE, MEDICAID, SELFPAY ==
[2020-11-26 09:48] VITALS: BMI 28.4
[2020-11-26 09:51] VITALS: BP 167/96; PULSE 72; RESP 20; TEMP 36.1; O2SAT 97
--- NOTE | 2020-11-26 09:59 | US_ITS ---
WS: [id number] ULTRASOUND-GUIDED THERAPEUTIC PARACENTESIS Procedure, risks, and complications have been explained to the patient. Consent is obtained. Utilizing aseptic technique and 1% buffered lidocaine, a small dermatome was made through which a 5 F rench Yueh catheter was inserted. Approximately 3600 ml of clear peritoneal fluid was obtained witho ut difficulty. No complications encountered. US/US paracentesis abd w [id number] IMPRESSION: Uncomplicated paracentesis yielding 3600 ml of peritoneal fluid.
[2020-11-26 10:36] VITALS: BP 111/54; PULSE 65; RESP 18; O2SAT 94
[2020-11-26 11:20] VITALS: BP 151/84; PULSE 75; RESP 18; O2SAT 97
== END ==
PROVIDERS: PCP Family Medicine Adult Medicine; Visit Provider Internal Medicine Nephrology
DX: R18.8 Other ascites (principal)
CPT/HCPCS: 49083; 96365; P9047

== ENCOUNTER → 2020-12-03 09:34 | Day surgery (SDC) | payer MEDICARE, MEDICAID, SELFPAY ==
[2020-12-03 10:16] VITALS: BMI 29.8
--- NOTE | 2020-12-03 10:20 | US_ITS ---
WS: [id number] ULTRASOUND-GUIDED PARACENTESIS CLINICAL INFORMATION: ASCITES COMPARISON: None. Procedure Informed consent: The risks, benefits, and alternatives of the procedure were discussed with the lisa ent. Verbal and written consent was obtained. Timeout: A timeout was performed to confirm the correct patient, procedure, and site. Preparation: A suitable skin site was identified. The patient was prepped and draped in usual sterile fashion. Lidocaine 1% was used for local anesthesia. Catheter: 4 Ecuadorean One-step Yueh catheter. Side: Left Lower quadrant. Fluid Volume: 2700 ml Color: Clear yellow DISPOSITION: Discarded safely. Complications: None. Patient disposition: Discharged from the department in stable condition. US/US paracentesis abd w [id number] IMPRESSION: Uncomplicated ultrasound-guided paracentesis. Removal of 2700 cc
[2020-12-03 10:25] VITALS: BP 145/81; PULSE 59; RESP 20; TEMP 36.5; O2SAT 96
[2020-12-03 11:47] VITALS: BP 113/66; PULSE 87; RESP 18; O2SAT 97
== END ==
PROVIDERS: PCP Family Medicine Adult Medicine; Visit Provider Internal Medicine Nephrology
DX: R18.8 Other ascites (principal)
CPT/HCPCS: 49083; 96365; P9047

== ENCOUNTER → 2020-12-10 09:37 | Day surgery (SDC) | payer MEDICARE, MEDICAID, SELFPAY ==
--- NOTE | 2020-12-10 09:53 | US_ITS ---
WS: [id number] Abdominal ultrasound, limited. History: Evaluate for ascites. Comparison: None. All 4 quadrants are imaged by ultrasound to evaluate for ascites. There is a small amount of ascites in the RIGHT lower and LEFT lower quadrants. Very minimal amount of ascites. Not enough for paracente sis. US/US abdomen lmt fluid [id number] IMPRESSION: Small amount of ascites. No paracentesis performed today.
[2020-12-10 10:02] VITALS: BP 174/95; PULSE 58; RESP 18; TEMP 36.6; O2SAT 98
--- NOTE | 2020-12-10 10:24 | PC.NURSE ---
Pt to GI lab for paracentesis. US at bedside scanning for fluid. Limited fluid noted. Dr. Loja notified and at bedside. Procedure cancelled due to lack of fluid.
[2020-12-10 10:36] LABS: INR 0.97 (0.8-1.2)
--- NOTE | 2020-12-10 10:52 | PC.NURSE ---
Dr. Candelaria's office, Marla, notified of cancelation of para today due to inadequate fluid to drain. Request made for para's to be changed to every other week and as needed due to decreasing amounts drained. New orders to be faxed to GI.
== END ==
PROVIDERS: Radiology Diagnostic Radiology; PCP Family Medicine Adult Medicine; Visit Provider Internal Medicine Nephrology
DX: R18.8 Other ascites (principal)
CPT/HCPCS: 36415; 76705; 85610

== ENCOUNTER → 2020-12-17 09:17 | Day surgery (SDC) | payer MEDICARE, MEDICAID, SELFPAY ==
[2020-12-17 09:37] VITALS: BP 183/102; PULSE 58; RESP 18; TEMP 37.1; O2SAT 97; BMI 28.4
--- NOTE | 2020-12-17 09:50 | US_ITS ---
WS: [id number] ULTRASOUND-GUIDED PARACENTESIS CLINICAL INFORMATION: ASCITES COMPARISON: None. Procedure Informed consent: The risks, benefits, and alternatives of the procedure were discussed with the lisa ent. Verbal and written consent was obtained. Timeout: A timeout was performed to confirm the correct patient, procedure, and site. Preparation: A suitable skin site was identified. The patient was prepped and draped in usual sterile fashion. Lidocaine 1% was used for local anesthesia. Catheter: 4 Cuban One-step Yueh catheter. Side: Left Lower quadrant. Fluid Volume: 2850 ml Color: Melissa DISPOSITION: Discarded safely. Complications: None. Patient disposition: Discharged from the department in stable condition. US/US paracentesis abd w [id number] IMPRESSION: Uncomplicated ultrasound-guided paracentesis. Removal of 2850 cc
[2020-12-17 11:20] VITALS: BP 184/94; PULSE 60; RESP 18; O2SAT 97
== END ==
PROVIDERS: PCP Family Medicine Adult Medicine; Visit Provider Internal Medicine Nephrology
DX: R18.8 Other ascites (principal)
CPT/HCPCS: 49083; 96365; P9047

== ENCOUNTER → 2020-12-31 10:00 | Day surgery (SDC) | payer MEDICARE, MEDICAID, SELFPAY ==
--- NOTE | 2020-12-31 10:15 | US_ITS ---
WS: [id number] LIMITED ABDOMINAL ULTRASOUND INDICATION: Paracentesis TECHNIQUE: Limited abdomen FINDINGS: Four-quadrant ultrasound for paracentesis evaluation. Inadequate fluid for paracentesis. Anitha faust ascites. US/US abdomen lmt fluid [id number] IMPRESSION: Inadequate fluid for paracentesis. Mild ascites.
[2020-12-31 10:19] VITALS: BP 165/93; PULSE 76; RESP 18; TEMP 36.8; O2SAT 96
--- NOTE | 2020-12-31 10:29 | PC.NURSE ---
Not enough fluid noted on ultrasound for paracentesis. Pt denies SOB or feeling full. Abdomen soft. Pt to return in 2 weeks for another possible paracentesis as scheduled.
== END ==
PROVIDERS: PCP Family Medicine Adult Medicine; Visit Provider Internal Medicine Nephrology
DX: R18.8 Other ascites (principal)
CPT/HCPCS: 76705

== ENCOUNTER → 2021-01-14 10:24 | Day surgery (SDC) | payer MEDICARE, MEDICAID, SELFPAY ==
--- NOTE | 2021-01-14 10:40 | US_ITS ---
WS: [id number] INDICATION: Paracentesis TECHNIQUE: Ultrasound 4 quadrant FINDINGS: Ultrasound 4 quadrant for paracentesis. Mild ascites. Insufficient ascites to safely perfor m paracentesis today. US/US abdomen lmt fluid [id number] IMPRESSION: Insufficient ascites to safely perform paracentesis today.
[2021-01-14 10:44] VITALS: BP 179/91; PULSE 55; RESP 20; TEMP 36.8; O2SAT 97
[2021-01-14 10:52] VITALS: BMI 29.0
--- NOTE | 2021-01-14 11:21 | PC.NURSE ---
Following ultrasound scan, Per Dr. Seymour there was not enough fluid to drain, no paracentesis was performed today.
== END ==
PROVIDERS: Visit Provider Internal Medicine Nephrology
DX: R18.8 Other ascites (principal)
CPT/HCPCS: 49083; 76705

== ENCOUNTER → 2021-01-28 09:48 | Day surgery (SDC) | payer MEDICARE, MEDICAID, SELFPAY ==
--- NOTE | 2021-01-28 10:08 | US_ITS ---
WS: [id number] ULTRASOUND-GUIDED PARACENTESIS CLINICAL INFORMATION: Acites COMPARISON: None. Procedure Informed consent: The risks, benefits, and alternatives of the procedure were discussed with the lisa ent. Verbal and written consent was obtained. Timeout: A timeout was performed to confirm the correct patient, procedure, and site. Preparation: A suitable skin site was identified. The patient was prepped and draped in usual sterile fashion. Lidocaine 1% was used for local anesthesia. Catheter: 4 Kinyarwanda One-step Yueh catheter. Side: Right Lower quadrant. Fluid Volume: 1250 ml Color: Clear yellow DISPOSITION: Discarded safely. Complications: None. Patient disposition: Discharged from the department in stable condition. US/US paracentesis abd w [id number] IMPRESSION: Uncomplicated ultrasound-guided paracentesis. Removal of 1250 cc
[2021-01-28 10:29] VITALS: BP 161/94; PULSE 63; RESP 18; TEMP 36.8; O2SAT 96; BMI 30.3
[2021-01-28 12:00] VITALS: BP 155/95; PULSE 64; RESP 18; O2SAT 98
== END ==
PROVIDERS: Visit Provider Internal Medicine Nephrology
DX: R18.8 Other ascites (principal)
CPT/HCPCS: 49083; 96365; P9047

== ENCOUNTER 2021-02-05 23:00 | Emergency (ER) | payer MEDICARE, MEDICAID, SELFPAY ==
[2021-02-05 23:26] VITALS: BP 178/98; PULSE 76; RESP 20; TEMP 36.8; O2SAT 98; BMI 29.0
--- NOTE | 2021-02-05 23:52 | W.ED.HA ---
HPI - Headache General: Chief Complaint: Headache Stated Complaint: Headache Time Seen by Provider: 02/05/21 23:49 Source: patient Mode of arrival: ambulatory Limitations: no limitations History of Present Illness: HPI Narrative: 55-year-old male who has a history of end-stage renal disease receives dialysis Wednesday. He states he has had a headache since getting dialyzed today. He states he has had a headache previously after dialysis. States headaches currently 6 out of 10. He denies is being the worst headache of his life. Denies any worsening improving factors. Denies any fever or neck pain. Denies any vomiting or diarrhea. MD elicited complaint: headache Associated symptoms: Deny chest pain, fever(s), nausea, rash or vomiting Review of Systems Const: Denies: fever(s), chills, body aches or change in appetite Eyes: Denies: blurry vision or eye discomfort ENMT: Denies: throat pain or dental pain Card: Denies: chest pain Resp: Denies: dyspnea GI: Denies: abdominal pain, nausea, vomiting or diarrhea : Denies: dysuria Musc: Denies: neck pain or back pain Skin/Breast: Denies: rash Neuro: Reports: headache(s) Psych: Denies: depression Lucas/Lymph: Denies: easy bruising All/Imm: Denies: urticaria PFSH ED PFSH: Medical History (Updated 02/06/21 @ 00:33 by Ghada Fontanez MD) Bilateral hydronephrosis Bradycardia CVA (cerebral vascular accident) Dependence on peritoneal dialysis Dilated aortic root ESRD (end stage renal disease) Hypertension Incomplete bladder emptying Polycystic kidney disease Right bundle branch block (RBBB) on electrocardiogram (ECG) Surgical History AV fistula History of colonoscopy 2019 at [facility] History of surgical procedure Peritoneal dialysis catheter placement by Dr. Kamara 2016 S/P hemodialysis catheter insertion (03/13/20) 23cm long exchanged right IJ Removed on 06/11/2020 Family History Mother Chronic kidney disease (CKD) Other Hypertension Denies family history of Diabetes Social History Smoking and tobacco status: current every day smoker cigarettes [ Other cigarette details: Half a pack per day for last 20-30 years ] and smokeless tobacco Alcohol intake: never Household members: family Housing: House History of recent travel: No Physical Exam Const: COMMON NORMALS: no acute distress, patient oriented x3 and healthy appearing HENMT: COMMON NORMALS: normocephalic and atraumatic HEAD & SCALP: normocephalic and atraumatic Eye: COMMON NORMALS: Equal, round and reactive pupils present and EOMs intact bilaterally PUPIL: Yes Equal, round and reactive pupils present Neck/C-Spine: COMMON NORMALS: full ROM and supple Chest: COMMONS NORMALS: normal inspection of the chest and normal palpation of entire chest wall Resp: COMMON NORMALS: normal respiratory effort, No retractions, No use of accessory muscles and clear to auscultation bilaterally AUSCULTATION: clear to auscultation bilaterally Cardio: COMMON NORMALS: regular rate, regular rhythm and No murmurs present (Cardio) RATE: regular rate RHYTHM: regular rhythm GI: COMMON NORMALS: Normal to inspection, nondistended, normoactive bowel sounds present, Soft to palpation, non-tender and no masses PALPATION: Yes Soft to palpation Extremity: COMMON NORMALS: normal to inspection and full ROM Neuro: COMMON NORMALS: patient oriented x3, moves all extremities and no focal motor deficits Psych: COMMON NORMALS: mental status grossly normal, Normal thought process present and cooperative THOUGHT PROCESS: Normal thought process present Skin: COMMON NORMALS: no rashes or lesions noted and no wounds GENERAL SKIN EXAM: no rashes or lesions noted Course Vital Signs: Vital signs: Vital Signs Temperature 98.2 F 02/05/21 23:26 Pulse Rate 76 02/05/21 23:26 Respiratory Rate 20 H 02/05/21 23:26 Blood Pressure 178/98 02/05/21 23:26 Pulse Oximetry 98 02/05/21 23:26 MDM - Headache MDM Narrative: Medical decision making narrative: Patient presents here with headache that is likely tension headache. He is well-appearing here and no signs of subarachnoid hemorrhage or meningitis. His headache is resolved and he is stable for discharge. He is to follow-up with PCP and return if worsening. Discharge Plan Discharge Patient Disposition: Home Clinical Impression: Headache Qualifiers: Headache type: unspecified Headache chronicity pattern: unspecified pattern Intractability: not intractable Qualified Code(s): R51.9 - Headache, unspecified Condition: Stable Prescriptions: No Action aspirin 81 mg tablet,delayed release (DR/EC) 81 mg PO DAILY RF: 0 Hold Instructions: Resume on 02/29/20. hydralazine 25 mg tablet See Rx Instructions .ROUTE .COMPLEX RF: 0 isosorbide mononitrate 30 mg tablet extended release 24 hr 30 mg PO DAILY Qty: 30 RF: 0 RenaPlex-D 800 mcg-12.5 mg -2,000 unit Tablet 1 tab PO DAILY RF: 0 allopurinol 100 mg Tablet 100 mg PO DAILY RF: 0 escitalopram oxalate 20 mg Tablet 40 mg PO DAILY RF: 0 simvastatin 40 mg Tablet 40 mg PO DAILY RF: 0 pantoprazole 40 mg tablet,delayed release (DR/EC) 40 mg PO DAILY RF: 0 losartan 100 mg tablet 100 mg PO DAILY RF: 0 finasteride 5 mg tablet 5 mg PO DAILY RF: 0 clonidine HCl 0.1 mg tablet 0.1 mg PO TID RF: 0 minoxidil 2.5 mg tablet 5 mg PO BID RF: 0 lidocaine-prilocaine 2.5-2.5 % cream See Rx Instructions .ROUTE .COMPLEX RF: 0 levothyroxine 25 mcg tablet 25 mcg PO DAILY RF: 0 nifedipine [Procardia XL] 60 mg tablet extended release 24hr 60 mg PO BID RF: 0 bumetanide 1 mg tablet 1 mg PO DAILY RF: 0 metoprolol tartrate 25 mg tablet 12.5 mg PO BID RF: 0 Discharge Orders: Discharge ED (Routine); Ordered 02/06/21 Ordered By: Ghada Fontanez Discharge Diet: Advance as tolerated Discharge Activity: Resume usual activity Patient Instructions: Headache Coding Level of Care Code ED Security Advisor for Eric Fwd Exam Comprehensive
[2021-02-06] MEDS: diphenhydrAMINE 50 mg/mL SDV 1mL IVP (00:02)
[2021-02-06] MEDS: metoclopramide 5 mg/mL SDV 2 mL 10 MG IVP (00:05)
[2021-02-06 01:16] VITALS: BP 184/106; PULSE 80; RESP 16; O2SAT 96
== END 2021-02-06 01:17 | disposition home or self-care (01) ==
PROVIDERS: Emergency Provider Emergency Medicine
DX: R51.9 Headache, unspecified (principal); Z79.82 Long term (current) use of aspirin; Z86.73 Personal history of transient ischemic attack (TIA), and cerebral infarction without residual deficits; I12.0 Hypertensive chronic kidney disease with stage 5 chronic kidney disease or end stage renal disease; N18.6 End stage renal disease; F17.210 Nicotine dependence, cigarettes, uncomplicated
CPT/HCPCS: 96374; 96375; 99283; J1200; J2765

== ENCOUNTER → 2021-02-11 11:08 | Day surgery (SDC) | payer MEDICARE, MEDICAID, SELFPAY ==
[2021-02-11 11:18] VITALS: BP 230/100; PULSE 56; RESP 18; TEMP 36.9; O2SAT 97
--- NOTE | 2021-02-11 11:21 | US_ITS ---
WS: [id number] ULTRASOUND ABDOMEN LIMITED CLINICAL INFORMATION: Ascites COMPARISON: None. FINDINGS: Four-quadrant ultrasound. Dilated loops of bowel. No significant ascites. Paracentesis not performed. US/US abdomen limited [id number] IMPRESSION: No significant ascites. Paracentesis not performed.
[2021-02-11 11:29] VITALS: BMI 29.0
[2021-02-11 11:36] VITALS: BP 229/99
--- NOTE | 2021-02-11 12:03 | PC.NURSE ---
Upon abdominal scan it was determined pt does not have enough fluid to drain. Paracentesis was not performed.
--- NOTE | 2021-02-11 13:40 | PC.NURSE ---
Dr. Candelaria's nurse notified at [facility] that not enough fluid was present for paracentesis today. Requested that orders be modified to fit current needs. Nurse stated she would speak to Dr. Candelaria and send new orders if needed.
== END ==
PROVIDERS: Visit Provider Internal Medicine Nephrology
DX: R18.8 Other ascites (principal)
CPT/HCPCS: 76705

== ENCOUNTER → 2021-03-13 10:38 | Outpatient (BNVA) | payer MEDICARE, MEDICAID, SELFPAY | PROVIDERS: Visit Provider Urology | DX: N18.6 End stage renal disease (principal); R33.9 Retention of urine, unspecified; R31.9 Hematuria, unspecified | CPT/HCPCS: 81003; 87086 ==

== ENCOUNTER 2021-03-17 05:48 | Inpatient (IN) | payer MEDICARE, MEDICAID, SELFPAY ==
[2021-03-17] VITALS (59 sets, daily range): BP systolic 157–228; BP diastolic 82–125; PULSE 45–83; RESP 7–26; TEMP 36.4–37.5; O2SAT 85–98; BMI 29.0
--- NOTE | 2021-03-17 06:29 | ECG_ITS ---
[facility] Test Date: 2021-03-17 Pat Name: Navneet Savage Department: Room: Gender: Male Access Registrar: : 1965 Requested By: Marvin Bennett Order Number: [id number] Nate MD: China Wheat M.D. Measurements Intervals [place] Rate: 78 P: 21 MA: 158 QRS: -47 QRSD: 109 T: 39 QT: 440 QTc: 502 Interpretive Statements SINUS RHYTHM LEFT ANTERIOR FASCICULAR BLOCK [QRS AXIS <= -45, QR IN I, RS IN II] VOLTAGE CRITERIA FOR LVH [MEETS CRITERIA IN ONE OF: R(aVL), S(V1), R(V5), R(V5/V6)+S(V1)] POSSIBLE SEPTAL MYOCARDIAL INFARCTION , OF INDETERMINATE AGE [30 ms Q WAVE IN V1/V2] Compared to ECG 08/12/2020 06:51:57 Left anterior fascicular block now present Left ventricular hypertrophy now present Incomplete right bundle-branch block no longer present Myocardial infarct finding still present Electronically Signed On 03-17-2021 23:40:25 CDT by China Wheat M.D. [email or web address]
--- NOTE | 2021-03-17 06:29 | XRR_ITS ---
PROCEDURE INFORMATION: Exam: XR Chest Exam date and time: 03/17/2021 6:29 AM Age: 55 years old Clinical indication: Patient HX: Hbp this am; Additional info: Chest pain TECHNIQUE: Imaging protocol: XR of the chest. Views: 1 view. Total images: 1 COMPARISON: CR XR chest 1V portable [id number] 08/12/2020 5:21 AM FINDINGS: Lungs: Unremarkable. No consolidation. Pleural spaces: Unremarkable. No pleural effusion. No pneumothorax. Heart/Mediastinum: Unremarkable. No cardiomegaly. Bones/joints: Unremarkable. XR/XR chest 1V portable [id number] IMPRESSION: No acute findings. Radiation Dose CTDIVOL = (mGy): DLP = (mGy-cm)
[2021-03-17 06:45] LABS: Basophils % 0.3 %; Eosinophils # 0.2 10^3/uL (0.0-0.8); Eosinophils % 1.5 %; Hematocrit 32.8 % (42.0-52.0); Hemoglobin 10.9 g/dL (11.7-16.6); Lymphocytes % 18.6 %; Mean Corpuscular HGB Conc 33.2 g/dL (30.0-36.0); Mean Corpuscular Hemoglobin 31.7 pg (28.0-34.0); Mean Corpuscular Volume 95.3 fl (80-94); Mean Platelet Volume 9.8 fL (7.4-10.4); Monocytes # 0.9 10^3/uL (0.2-0.9); Monocytes % 8.3 %; Neutrophils # 7.46 10^3/uL (1.8-7.7); Nucleated Red Blood Cells % 0 %; Platelet Count 279 10^3/cmm (130-400); Red Blood Count 3.44 10^6/uL (4.1-5.3); Red Cell Distribution Width 14.2 % (12.1-15.1); White Blood Count 10.5 10^3/uL (4.0-10.0)
--- NOTE | 2021-03-17 06:50 | W.ED.CHESTPA ---
HPI - Chest Pain General: Chief Complaint: Chest Pain Stated Complaint: high bp 210/107 Time Seen by Provider: 03/17/21 05:56 History of Present Illness: HPI narrative: 55 yo male presetns to the ER with elevated BP and chest discomfort.. Pt has hx of HTN and ESRD. Pt reports he tooks all of his regular antiHTN yesterday but has not taken anything this AM. He denies any nausea diaphoresis he is mildly short of breath but he attributes that to his smoking. Denies any change in his baseline cough. MD complaint: chest heaviness and chest discomfort Onset (ago): hour(s) Timing of current episode: episodic Prior episodes: Yes Onset: during rest Pain location: left chest Pain radiation: none Quality: tightness and heaviness Relieving factors: nothing Exacerbating factors: exertion Associated symptoms: Deny abdominal pain, diaphoresis, dyspnea, fever(s), leg edema, nausea, palpitations, sense of impending doom, syncope or vomiting Treatment prior to arrival: none Review of Systems Const: Denies: fever(s) or diaphoresis ENMT: Denies: throat pain, ear or mastoid pain, nasal discharge or nasal congestion Card: Denies: palpitations or syncope Resp: Denies: dyspnea GI: Denies: abdominal pain, nausea or vomiting : Denies: flank pain, dysuria, urinary frequency or urinary urgency Skin/Breast: Denies: rash or pruritus PFSH ED PFSH: Medical History Bilateral hydronephrosis Bradycardia Chronic anemia CVA (cerebral vascular accident) Dependence on peritoneal dialysis Dilated aortic root ESRD (end stage renal disease) GERD (gastroesophageal reflux disease) Hypertension Incomplete bladder emptying Polycystic kidney disease Right bundle branch block (RBBB) on electrocardiogram (ECG) Surgical History AV fistula History of colonoscopy 2019 at [facility] History of surgical procedure Peritoneal dialysis catheter placement by Dr. Kamara 2015 S/P hemodialysis catheter insertion (03/13/20) 23cm long exchanged right IJ Removed on 06/11/2020 Family History Mother Chronic kidney disease (CKD) Other Hypertension Denies family history of Diabetes Social History Alcohol intake: never Household members: family Housing: House History of recent travel: No Physical Exam Const: COMMON NORMALS: no acute distress GENERAL APPEARANCE: cooperative and comfortable ORIENTATION/CONSCIOUSNESS: Yes awake, Yes oriented to person, Yes oriented to place and Yes oriented to time HENMT: COMMON NORMALS: normocephalic, atraumatic and hearing grossly normal bilaterally HEAD & SCALP: normocephalic and atraumatic Neck/C-Spine: COMMON NORMALS: no JVD Resp: COMMON NORMALS: normal respiratory effort, No retractions, No use of accessory muscles and clear to auscultation bilaterally AUSCULTATION: clear to auscultation bilaterally Cardio: COMMON NORMALS: no JVD, regular rate, regular rhythm and No murmurs present (Cardio) RATE: regular rate RHYTHM: regular rhythm GI: COMMON NORMALS: Soft to palpation and No hepatosplenomegaly present AUSCULTATION: Yes normoactive bowel sounds PALPATION: Yes Soft to palpation, No Tenderness to palpation present (GI), No Guarding due to palpation present (GI) and Yes No hepatosplenomegaly present Extremity: COMMON NORMALS: normal to inspection, capillary refill normal, no clubbing, cyanosis or edema, no calf tenderness and no pedal edema Neuro: SENSORIUM/ORIENTATION: Yes oriented to person, Yes oriented to place and Yes oriented to time Skin: COMMON NORMALS: no rashes or lesions noted GENERAL SKIN EXAM: no rashes or lesions noted Course Vital Signs: Vital signs: Vital Signs Temperature 98.1 F 03/20/21 12:00 Pulse Rate 70 03/21/21 05:59 Respiratory Rate 15 03/21/21 05:30 Blood Pressure 159/93 03/21/21 05:00 Pulse Oximetry 96 03/21/21 05:30 MDM - Chest Pain MDM Narrative: Medical decision making narrative: Patient has hypertensive urgency as well as chest discomfort elevated troponin. He does need dialysis. Consult nephrology discussed with hospitalist. Is been started on nitroglycerin drip control his blood pressure and chest discomfort. Orders written for admission. Lab Data: Labs: Lab Results 03/17/21 03/17/21 03/17/21 06:26 06:26 06:26 WBC 10.5 10^3/uL H 10 ^3/uL (4.0-10.0) RBC 3.44 10^6/uL L 10 ^6/uL (4.1-5.3) Hgb 10.9 g/dL L g/dL (11.7-16.6) Hct 32.8 % L % (42.0-52.0) MCV 95.3 fl H fl (80-94) MCH 31.7 pg pg (28.0-34.0) MCHC 33.2 g/dL g/dL (30.0-36.0) RDW 14.2 % % (12.1-15.1) Plt Count 279 10^3/cmm 10^3 /cmm (130-400) MPV 9.8 fL fL (7.4-10.4) Neut % (Auto) 71.0 % % Lymph % (Auto) 18.6 % % Spencer % (Auto) 8.3 % % Eos % (Auto) 1.5 % % Baso % (Auto) 0.3 % % Neut # (Auto) 7.46 10^3/uL 10^3 /uL (1.8-7.7) Lymph # (Auto) 2.0 10^3/uL 10^3/ uL (0.8-4.8) Spencer # (Auto) 0.9 10^3/uL 10^3/ uL (0.2-0.9) Eos # (Auto) 0.2 10^3/uL 10^3/ uL (0.0-0.8) Baso # (Auto) 0.0 10^3/uL 10^3/ uL (0.0-0.1) Nucleated RBC % (a uto) 0 % % Nucleated RBCs # 0.0 /100WBC /100W BC Sodium 140 mmol/L mmol/L (136-145) Potassium 3.7 mmol/L mmol/L (3.5-5.1) Chloride 96 mmol/L L mmol/ L (98-107) Carbon Dioxide 30 mmol/L H mmol/ L (22-29) Anion Gap 17.7 (5-19) BUN 32 mg/dL H mg/dL (6-20) Creatinine 8.2 mg/dL H* mg/d L (0.7-1.2) GFR Calculation 6.8 mL/min L mL/m in (90-130) Glucose 87 mg/dL mg/dL (65-115) Calculated Osmolal ity 296 mOsm/kg H mOs m/kg (285-295) Uric Acid Calcium 9.8 mg/dL mg/dL (8.5-10.5) Total Bilirubin 0.3 mg/dL mg/dL (0.15-1.2) AST 14 U/L U/L (0-40) ALT 8 U/L U/L (0-41) Alkaline Phosphata se 92 IU/L IU/L (40-130) Creatine Kinase 93 U/L U/L (39-308) Troponin T Baselin e 224 ng/L H* ng/L (0-15) Troponin T 120 Min [place] Delta Troponin T Troponin T Hi Sens 6Hr Troponin T Hi Sens 6Hr Delta Total Protein 6.1 g/dL L g/dL (6.6-8.7) Albumin 3.7 g/dL g/dL (3.5-5.2) Globulin 2.4 g/dL g/dL (1.3-4.6) 25-OH Vitamin D To nell 1,25 Dihydroxy Vit D2 1,25 Dihydroxy Vit D3 TSH Hep Bs Antigen Hep Bs Antibody Hepatitis C Antibo dy 03/17/21 03/17/21 03/17/21 08:50 12:50 12:50 WBC RBC Hgb Hct MCV MCH MCHC RDW Plt Count MPV Neut % (Auto) Lymph % (Auto) Spencer % (Auto) Eos % (Auto) Baso % (Auto) Neut # (Auto) Lymph # (Auto) Spencer # (Auto) Eos # (Auto) Baso # (Auto) Nucleated RBC % (a uto) Nucleated RBCs # Sodium Potassium Chloride Carbon Dioxide Anion Gap BUN Creatinine GFR Calculation Glucose Calculated Osmolal ity Uric Acid 4.6 mg/dL mg/dL (3.4-7.0) Calcium Total Bilirubin AST ALT Alkaline Phosphata se Creatine Kinase Troponin T Baselin e Troponin T 120 Min [place] 246.6 ng/L H ng/L (0-15) Delta Troponin T 22.6 ABS# H* ABS# (0-10) Troponin T Hi Sens 6Hr 212.9 ng/L H ng/L (0-15) Troponin T Hi Sens 6Hr Delta -11.1 ng/L L ng/L (0-12) Total Protein Albumin Globulin 25-OH Vitamin D To nell 1,25 Dihydroxy Vit D2 1,25 Dihydroxy Vit D3 TSH Hep Bs Antigen Hep Bs Antibody Hepatitis C Antibo dy 03/17/21 03/17/21 03/17/21 12:50 12:50 12:50 WBC RBC Hgb Hct MCV MCH MCHC RDW Plt Count MPV Neut % (Auto) Lymph % (Auto) Spencer % (Auto) Eos % (Auto) Baso % (Auto) Neut # (Auto) Lymph # (Auto) Spencer # (Auto) Eos # (Auto) Baso # (Auto) Nucleated RBC % (a uto) Nucleated RBCs # Sodium Potassium Chloride Carbon Dioxide Anion Gap BUN Creatinine GFR Calculation Glucose Calculated Osmolal ity Uric Acid Calcium Total Bilirubin AST ALT Alkaline Phosphata se Creatine Kinase Troponin T Baselin e Troponin T 120 Min [place] Delta Troponin T Troponin T Hi Sens 6Hr Troponin T Hi Sens 6Hr Delta Total Protein Albumin Globulin 25-OH Vitamin D To nell 21 pg/mL pg/mL (18-72) 1,25 Dihydroxy Vit D2 <8 pg/mL pg/mL 1,25 Dihydroxy Vit D3 21 pg/mL pg/mL TSH 2.77 uIU/mL uIU/m L (0.27-4.20) Hep Bs Antigen Non-reactive (Nonreactive) Hep Bs Antibody < 3.5 L (11.5-1000) Hepatitis C Antibo dy Non-reactive (Nonreactive) Discharge Plan Discharge Patient Disposition: Admitted As Inpatient Admit Provider: James Sena Clinical Impression: Atypical chest pain, ESRD (end stage renal disease), Hypertensive urgency, Elevated troponin, Hypertension, Chronic anemia Condition: Stable Coding Level of Care Code ED Job Analyst for Eric Sandhu
[2021-03-17 06:58] LABS: Alanine Aminotransferase 8 U/L (0-41); Albumin Level 3.7 g/dL (3.5-5.2); Alkaline Phosphatase 92 IU/L (40-130); Anion Gap 17.7 (5-19); Aspartate Amino Transferase 14 U/L (0-40); Blood Urea Nitrogen 32 mg/dL (6-20); Calcium 9.8 mg/dL (8.5-10.5); Carbon Dioxide 30 mmol/L (22-29); Chloride 96 mmol/L (98-107); Creatine Phosphokinase 93 U/L (39-308); Globulin 2.4 g/dL (1.3-4.6); Glomerular Filtration Rate 6.8 mL/min (90-130); Glucose 87 mg/dL (65-115); Osmolality Calculated 296 mOsm/kg (285-295); Potassium 3.7 mmol/L (3.5-5.1); Sodium 140 mmol/L (136-145); Total Bilirubin 0.3 mg/dL (0.15-1.2); Total Protein 6.1 g/dL (6.6-8.7)
[2021-03-17 07:19] LABS: Troponin(5th) Baseline 224 ng/L (0-15)
--- NOTE | 2021-03-17 08:29 | ECG_ITS ---
[facility] Test Date: 2021-03-17 Pat Name: Navneet Savage Department: Room: Gender: Male Pe Teacher: : 1965 Requested By: Marvin Bennett Order Number: [id number] Nate MD: China Wheat M.D. Measurements Intervals [place] Rate: 78 P: 28 CA: 153 QRS: 99 QRSD: 105 T: 23 QT: 424 QTc: 486 Interpretive Statements SINUS RHYTHM BORDERLINE RIGHT AXIS DEVIATION [QRS AXIS > 90] SEPTAL MYOCARDIAL INFARCTION , OF INDETERMINATE AGE [40+ ms Q WAVE IN V1/V2] Possible old inferior MT Compared to ECG 03/17/2021 06:09:33 Left anterior fascicular block no longer present Left ventricular hypertrophy no longer present Myocardial infarct finding still present Electronically Signed On 03-17-2021 23:54:07 CDT by China Wheat M.D. [email or web address]
[2021-03-17] MEDS: hyDRALAzine 20 mg/mL INJ 1 mL IVP (08:51)
[2021-03-17 09:53] LABS: Troponin 5 2HR 246.6 ng/L (0-15); Troponin 5 2HR Delta 22.6 ABS# (0-10)
[2021-03-17] MEDS: aspirin 325 mg Tablet PO (10:17)
[2021-03-17] MEDS: nitroglycerin drip 50 MG/250 ML PREMIX IV (10:20)
--- NOTE | 2021-03-17 11:06 | PC.PHAR ---
Addendum entered by Ayla Barba 03/17/21 11:10: PT STATES THE BUMETANIDE WAS DCED ON 03/13/21 Original Note: PT STATES HE TAKES CARE OF HIS OWN MEDICATIONS-PT BROUGHT IN A MED LIST AND STATES HE TAKES WHATS ON THE LIST EXCEPT FOR ON THE FOSRENOL 1000MG PT STATES HE TAKES 3000MG QPM-RX FILLED ON 02/10/21 30D/S FOR 2000MG TID WITH MEALS-MED LIST HE BROUGHT IN WAS 3000MG TID WITH MEALS-PT STATES HE IS SUPPOSE TO TAKE CLONIDINE 0.1MG PRN PT STATES HE HAS BEEN TAKING 0.2MG AT HS EVERY NIGHT-NOTES ARE MADE IN THE PHARMACY COMMENTS-
--- NOTE | 2021-03-17 11:13 | PM.CONSULT ---
Providers/Reason For Consult Consulting Physician/Specialty*: jorge ziegler md/ telenephrology Reason for Consult*: ESRD care and htn Requesting Physician: hospitalist and Dr. 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 H/o recurrent ascites, htn, Prostate issues and hematuria- follows w/ Dr. Dougherty, depression, hypothyroidism, CVA, rt BBB. Pt here w/ weakness, headache, CP, chronic GAONA. Found to be htn w/ SBP >210. his trop was +. cArdiology will evaluate. Renal called for HD and ESRD management. Review of Systems General: Reports: 10 or more systems reviewed and unremarkable except in HPI and below Narrative: weak, h/a, cp, sob, edema, n/v- poor appetite, + hematuria, depressed Meds/Allergies Home Medications and Allergies Home Medications Medication Instructions Recorded Confirmed Last Taken Type RenaPlex-D 1 tab PO DAILY 11/27/19 03/17/21 03/16/21 History allopurinol 100 mg PO DAILY 11/27/19 03/17/21 03/16/21 History escitalopram oxalate [Lexapro] 40 mg PO DAILY 11/27/19 03/17/21 03/16/21 History simvastatin 40 mg PO DAILY 11/27/19 03/17/21 03/16/21 History finasteride 5 mg PO DAILY 02/07/20 03/17/21 01/28/21 07:00 History pantoprazole 40 mg PO DAILY 02/07/20 03/17/21 03/16/21 History clonidine HCl 0.2 mg PO BEDTIME 08/08/20 03/17/21 03/16/21 History levothyroxine 25 mcg PO DAILY 08/08/20 03/17/21 03/16/21 History lidocaine-prilocaine See Rx Instructions .ROUTE .COMPLEX 08/08/20 03/17/21 01/28/21 07:00 History minoxidil 5 mg PO BID 08/08/20 03/17/21 03/16/21 History alfuzosin 10 mg PO DAILY 03/17/21 03/17/21 03/16/21 History aspirin 325 mg PO DAILY 03/17/21 03/17/2103/16/21 History clonidine 0.3 mg TRANSDERMAL Q7D 03/17/21 03/17/21 03/15/21 History isosorbide mononitrate 60 mg PO DAILY 03/17/21 03/17/21 03/16/21 History lanthanum [Fosrenol] 3,000 mg PO QPM 03/17/21 03/17/21 Unknown History lisinopril 20 mg PO DAILY 03/17/21 03/17/21 03/16/21 History metoprolol succinate 25 mg PO DAILY 03/17/21 03/17/21 Unknown History nifedipine 90 mg PO DAILY 03/17/21 03/17/21 03/16/21 History Allergies Allergy/AdvReac Type Severity Reaction Status Date / Time Penicillins Allergy ALGY-Anaphy Verified 03/17/21 11:04 laxis Sulfa (Sulfonamide Allergy Unknown Verified 03/17/21 11:04 Antibiotics) Current Medications Current Medications Generic Name Dose Route Start Last Admin Trade Name Freq PRN Reason Stop Dose Admin Nitroglycerin/Dextrose 50 mg in 250 mls @ 0 mls/hr 03/17/21 10:15 03/17/21 10:52 Nitroglycerin Drip IV 10 mcg/min .Q0M MINNA 3 mls/hr Titration Protocol Per Protocol PFSH Acute PFSH: Medical History (Updated 03/14/21 @ 16:26 by Leopoldo Dougherty MD) Bilateral hydronephrosis Bradycardia CVA (cerebral vascular accident) Dependence on peritoneal dialysis Dilated aortic root ESRD (end stage renal disease) Hypertension Incomplete bladder emptying Polycystic kidney disease Right bundle branch block (RBBB) on electrocardiogram (ECG) Surgical History AV fistula History of colonoscopy 2019 at [facility] History of surgical procedure Peritoneal dialysis catheter placement by Dr. Kamara 2016 S/P hemodialysis catheter insertion (03/13/20) 23cm long exchanged right IJ Removed on 06/11/2020 Family History Mother Chronic kidney disease (CKD) Other Hypertension Denies family history of Diabetes Social History Alcohol intake: never Household members: family Housing: House History of recent travel: No Supplemental PFSH Information: he smoke tob and marijuana Vitals/I&O/Wt Last Vital Signs Temp 98.3 F 03/17/21 06:03 Pulse 80 03/17/21 10:53 Resp 16 03/17/21 10:53 BP 208/113 03/17/21 10:53 Pulse Ox 97 03/17/21 10:53 03/16/21 03/17/21 03/17/21 22:59 06:59 14:59 Intake Total 0.8 / 0.8 Balance 0.8 / 0.8 Weight last 48 hrs Weight 81.647 kg Physical Exam Narrative: EXAM NARRATIVE: in bed, NARD, uncomfortable vs noted heent- nc/at, eomi, anicteric neck supple lungs dull bases heart reg, no rub, +NILAY abd soft, nt, distended, +bs ext- 1+ ankle edema LUE AVF w/ thrill and bruit neuro- a,a, o x 3 A&P Additional A&P Information 55 yrr old man 1. ESRD- hd today 4 hrs, 3k, remove 3l 2. htn urgency- restart home meds and wean off nitro drip if okay w/ cardiology 3. + trops and GAONA- cardiac eval per cardiology 4. hgb okay for ESRD- hold epo till bp improves and Cardiac disease clarified 5. hematuria and needs anti-plt agents- as per Dr. Dougherty 6. renal - bone-mineral metabolism- check ca, phos, vit -d and pth seen and examined w/ RN- telehealth visit -informed consent obtained from pt Consult Attestations Medical Necessity Statement: htn urgency, + trop, ESRD Time Spent in Patient Care: Greater than 35 minutes (>than 50% of time spent in counselling and/or direct pt care on unit). Coding Level of Care Code Acute Watch Assembly Instructor for Eric Sandhu
--- NOTE | 2021-03-17 12:24 | PM.CONSULT ---
Providers/Reason For Consult Consulting Physician/Specialty*: Saurabh Fitzpatrick MD/ Cardiology Reason for Consult*: Troponin elevation/hypertensive urgency Requesting Physician: Dr Tilley Attending Physician: Dr Sena History of Present Illness History of Present Illness Navneet Savage is 55 yo man with PMHx of PCKD, ESRD-HD via left forearm AV fistula (M,W,F), previously on PD x 3 years, recurrent ascitis with repeated large volume paracentesis and HTN.He presented to the hospital with chest pain and elevated blood pressure. Mild pressure with nauseae. No radiation. BP was over 200mmHg. His troponin was elevated at 224 that trended up to 246. EKG does not show ischemic changes. Review of Systems General: Reports: 10 or more systems reviewed and unremarkable except in HPI and below Const: Denies: fever(s) or chills Eyes: Denies: change in vision ENMT: Denies: throat pain Card: Reports: chest pain Resp: Reports: non-productive cough GI: Denies: abdominal pain : Denies: flank pain Musc: Denies: neck pain Skin/Breast: Denies: rash Neuro: Denies: headache(s) Psych: Denies: anxiety Endo: Denies: polyuria Lucas/Lymph: Denies: easy bruising All/Imm: Denies: urticaria Meds/Allergies Home Medications and Allergies Home Medications Medication Instructions Recorded Confirmed Last Taken Type RenaPlex-D 1 tab PO DAILY 11/27/19 03/17/21 03/16/21 History allopurinol 100 mg PO DAILY 11/27/19 03/17/21 03/16/21 History escitalopram oxalate [Lexapro] 40 mg PO DAILY 11/27/19 03/17/21 03/16/21 History simvastatin 40 mg PO DAILY 11/27/19 03/17/21 03/16/21 History finasteride 5 mg PO DAILY 02/07/20 03/17/21 01/28/21 07:00 History pantoprazole 40 mg PO DAILY 02/07/20 03/17/21 03/16/21 History clonidine HCl 0.2 mg PO BEDTIME 08/08/20 03/17/21 03/16/21 History levothyroxine 25 mcg PO DAILY 08/08/20 03/17/21 03/16/21 History lidocaine-prilocaine See Rx Instructions .ROUTE .COMPLEX 08/08/20 03/17/21 01/28/21 07:00 History minoxidil 5 mg PO BID 08/08/20 03/17/21 03/16/21 History alfuzosin 10 mg PO DAILY 03/17/21 03/17/21 03/16/21 History aspirin 325 mg PO DAILY 03/17/21 03/17/21 03/16/21 History clonidine 0.3 mg TRANSDERMAL Q7D 03/17/21 03/17/21 03/15/21 History isosorbide mononitrate 60 mg PO DAILY 03/17/21 03/17/21 03/16/21 History lanthanum [Fosrenol] 3,000 mg PO QPM 03/17/21 03/17/21 Unknown History lisinopril 20 mg PO DAILY 03/17/21 03/17/21 03/16/21 History metoprolol succinate 25 mg PO DAILY 03/17/21 03/17/21 Unknown History nifedipine 90 mg PO DAILY 03/17/21 03/17/21 03/16/21 History Allergies Allergy/AdvReac Type Severity Reaction Status Date / Time Penicillins Allergy ALGY-Anaphy Verified 03/17/21 11:04 laxis Sulfa (Sulfonamide Allergy Unknown Verified 03/17/21 11:04 Antibiotics) Current Medications Current Medications Generic Name Dose Route Start Last Admin Trade Name Freq PRN Reason Stop Dose Admin Nitroglycerin/Dextrose 50 mg in 250 mls @ 0 mls/hr 03/17/21 10:15 03/17/21 10:52 Nitroglycerin Drip IV 10 mcg/min .Q0M MINNA 3 mls/hr Titration Protocol Per Protocol PFSH Acute PFSH: Medical History Bilateral hydronephrosis Bradycardia Chronic anemia CVA (cerebral vascular accident) Dependence on peritoneal dialysis Dilated aortic root ESRD (end stage renal disease) GERD (gastroesophageal reflux disease) Hypertension Incomplete bladder emptying Polycystic kidney disease Right bundle branch block (RBBB) on electrocardiogram (ECG) Surgical History AV fistula History of colonoscopy 2019 at [facility] History of surgical procedure Peritoneal dialysis catheter placement by Dr. Kamara 2016 S/P hemodialysis catheter insertion (03/13/20) 23cm long exchanged right IJ Removed on 06/11/2020 Family History Mother Chronic kidney disease (CKD) Other Hypertension Denies family history of Diabetes Social History Alcohol intake: never Household members: family Housing: House History of recent travel: No Vitals/I&O/Wt Last Vital Signs Temp 98.3 F 03/17/21 06:03 Pulse 80 03/17/21 10:53 Resp 16 03/17/21 10:53 BP 208/113 03/17/21 10:53 Pulse Ox 97 03/17/21 10:53 03/16/21 03/17/21 03/17/21 22:59 06:59 14:59 Intake Total 0.8 / 0.8 Balance 0.8 / 0.8 Weight last 48 hrs Weight 180 lb Physical Exam Narrative: EXAM NARRATIVE: General: Alert and oriented x 3 Neck Supple Cardiovascular: Regular rate and rhythm Lungs: clear to auscultation Abdomen is soft. Extremities no significant edema A&P Assessment and plan (1) Elevated troponin: Status: Acute (2) Chest discomfort: Status: Acute (3) Hypertension: Status: Acute Qualifiers: Hypertension type: unspecified Qualified Code(s): I10 - Essential (primary) hypertension (4) Hypertensive urgency: Status: Acute Patient has presenteed with hypertensive urgency and atypical chest discomfort likely secondary to high blood pressure. Troponin elevation likely secondary to demand ischemia in the setting of hypertensive urgency and ESRD. I have recommended ischemic work up however he does not want to have cath or stress test. Only wants medical therapy Order echo Aspirin and statin therapy Nitro gtt. Dialysis will help decrease the blood pressure. Continue home medications and we can titrate based on blood pressures as inpateint Thank you for involving us with care of this patient. We josé miguel conitnue to follow. 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
--- NOTE | 2021-03-17 12:26 | USCV_ITS ---
Navneet Savage Age: 55 Gender: M : 1965 Exam Date: 03/17/2021 14:25 Ordering Phys: Saurabh Fitzpatrick M.D ([email or web address]) Technologist: Exam Location: [facility] Indication: troponin elevation BP: 211 / 113 HR: 68 Rhythm: Sinus Technical Quality: Adequate MEASUREMENTS (Male / Female) Normal Values 2D ECHO LV Diastolic Diameter PLAX 4.9 cm 4.2 - 5.9 / 3.9 - 5.3 cm LV Systolic Diameter PLAX 3.7 cm IVS Diastolic Thickness 1.4 cm 0.6 - 1.0 / 0.6 - 0.9 cm IVS Systolic Thickness 1.5 cm LVPW Diastolic Thickness 1.3 cm 0.6 - 1.0 / 0.6 - 0.9 cm LVPW Systolic Thickness 1.5 cm LVOT Diameter 2.0 cm LV Ejection Fraction 2D Teich 48.5 % LV Ejection Fraction MOD 2C 74.9 % LV Ejection Fraction 2C AL 75.3 % LA Diameter 4.4 cm LA Width 4.3 cm LA Height 4.9 cm RA Width 3.6 cm RA Height 4.9 cm M-MODE LV Diastolic Diameter MM 4.5 cm 4.2 - 5.9 / 3.9 - 5.3 cm LV Systolic Diameter MM 2.9 cm LV Ejection Fraction MM Teich 65.3 % IVS Diastolic Thickness MM 1.2 cm 0.6 - 1.0 / 0.6 - 0.9 cm IVS Systolic Thickness MM 1.9 cm LVPW Diastolic Thickness MM 1.1 cm 0.6 - 1.0 / 0.6 - 0.9 cm LVPW Systolic Thickness MM 1.9 cm RV Diastolic Diameter MM 1.4 cm Aortic Annulus Diameter 4.5 cm LA Ao Ratio MM 1.0 MV E Point Septal Separation 1.6 cm DOPPLER AV Peak Velocity 193.0 cm/s LVOT Peak Velocity 107.0 cm/s AV Area Cont Eq vti 2.2 cm squared AV Area Cont Eq pk 1.8 cm squared MV Area PHT 5.0 cm squared Mitral E to A Ratio 1.0 MV E' Velocity 62.5 cm/s Mitral E to MV E' Ratio 17.1 Mitral E to LV E' Lateral Ratio 16.2 Mitral E to LV E' Septal Ratio 18.1 TR Peak Velocity 258.0 cm/s TR Peak Gradient 26.6 mmHg TV Peak E Velocity 132.0 cm/s Right Atrial Pressure 3.0 mmHg Pulmonary Artery Systolic Pressu 29.6 mmHg FINDINGS Left Ventricle Normal left ventricular size. LV systolic function is normal with EF of 55-60%. No regional wall motion abnormalities. Diastolic function is abnormal Right Ventricle The right ventricle is normal in size and function. Right Atrium The right atrium is normal in size. Left Atrium The left atrium is normal in size. Mitral Valve Moderate Mitral annular calcification without significant stenosis or prolapse. There is no mitral regurgitation. Aortic Valve Aortic valve is thickened. No significant stenosis. There is no aortic regurgitation. Tricuspid Valve Structurally normal tricuspid valve without significant stenosis or regurgitation. Insufficient TR jet to calculate RVSP Pulmonic Valve Structurally normal pulmonic valve without significant stenosis. There is no pulmonic regurgitation. Pericardium Normal pericardium without effusion. Aorta Not well visualized CONCLUSIONS LV systolic function is normal with EF of 55-60% Grade 2 diastolic dysfunction Moderate mitral annular calcification Compared to prior echocardiogram from 02/08/2020, no significant changes are noted Saurabh Fitzpatrick MD (Electronically Signed) Final Date: 17 March 2021 20:59 S
--- NOTE | 2021-03-17 12:29 | ECG_ITS ---
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 Measurements Intervals [place] Rate: 63 P: 21 IL: 144 QRS: -39 QRSD: 120 T: 14 QT: 472 QTc: 487 Interpretive Statements SINUS RHYTHM LEFT AXIS DEVIATION [QRS AXIS < -30] VOLTAGE CRITERIA FOR LVH [MEETS CRITERIA IN ONE OF: R(aVL), S(V1), R(V5), R(V5/V6)+S(V1)] POSSIBLE SEPTAL MYOCARDIAL INFARCTION , OF INDETERMINATE AGE [30 ms Q WAVE IN V1/V2] Compared to ECG 03/17/2021 08:50:36 Left-axis deviation now present Left ventricular hypertrophy now present Myocardial infarct finding still present Electronically Signed On 03-17-2021 23:55:04 CDT by China Wheat M.D. [id number]
[2021-03-17] MEDS: losartan 50 mg Tablet 100 MG PO (13:27)
[2021-03-17] MEDS: b-complex-vitamin c Tablet 1 EACH PO (13:28)
[2021-03-17] MEDS: carvedilol 12.5 mg Tablet PO (13:28)
--- NOTE | 2021-03-17 13:48 | PM.HP ---
Providers/Chief Complaint Chief Complaint: high bp 210/107 History of Present Illness Navneet Savage is a 55 year old male who presents to the emergency department with complaints of chest discomfort, and elevated blood pressure. He reports his chest is felt heavy, and he has had some nausea. Slight cough has been present, but he believes this is due to his smoking and does not change lately. No fever, or exposure to Covid. No vomiting, or diarrhea. He reports he occasionally has some blood in his urine, but does not urinate often. Review of Systems General: Reports: 10 or more systems reviewed and unremarkable except in HPI and below Const: Denies: fever(s) or chills Eyes: Denies: change in vision ENMT: Denies: throat pain Card: Reports: chest pain Resp: Reports: non-productive cough GI: Denies: abdominal pain : Denies: flank pain Musc: Denies: neck pain Skin/Breast: Denies: rash Neuro: Denies: headache(s) Psych: Denies: anxiety Endo: Denies: polyuria Lucas/Lymph: Denies: easy bruising All/Imm: Denies: urticaria Medications/Allergies Home Medications Medication Instructions Recorded Confirmed Last Taken Type RenaPlex-D 1 tab PO DAILY 11/27/19 03/17/21 03/16/21 History allopurinol 100 mg PO DAILY 11/27/19 03/17/21 03/16/21 History escitalopram oxalate [Lexapro] 40 mg PO DAILY 11/27/19 03/17/21 03/16/21 History simvastatin 40 mg PO DAILY 11/27/19 03/17/21 03/16/21 History finasteride 5 mg PO DAILY 02/07/20 03/17/21 01/28/21 07:00 History pantoprazole 40 mg PO DAILY 02/07/20 03/17/21 03/16/21 History clonidine HCl 0.2 mg PO BEDTIME 08/08/20 03/17/21 03/16/21 History levothyroxine 25 mcg PO DAILY 08/08/20 03/17/21 03/16/21 History lidocaine-prilocaine See Rx Instructions .ROUTE .COMPLEX 08/08/20 03/17/21 01/28/21 07:00 History minoxidil 5 mg PO BID 08/08/20 03/17/21 03/16/21 History alfuzosin 10 mg PO DAILY 03/17/21 03/17/21 03/16/21 History aspirin 325 mg PO DAILY 03/17/21 03/17/21 03/16/21 History clonidine 0.3 mg TRANSDERMAL Q7D 03/17/21 03/17/21 03/15/21 History isosorbide mononitrate 60 mg PO DAILY 03/17/21 03/17/21 03/16/21 History lanthanum [Fosrenol] 3,000 mg PO QPM 03/17/21 03/17/21 Unknown History lisinopril 20 mg PO DAILY 03/17/21 03/17/21 03/16/21 History metoprolol succinate 25 mg PO DAILY 03/17/21 03/17/21 Unknown History nifedipine 90 mg PO DAILY 03/17/21 03/17/21 03/16/21 History Allergies Allergy/AdvReac Type Severity Reaction Status Date / Time Penicillins Allergy ALGY-Anaphy Verified 03/17/21 11:04 laxis Sulfa (Sulfonamide Allergy Unknown Verified 03/17/21 11:04 Antibiotics) PFSH Acute PFSH: Medical History (Updated 03/17/21 @ 13:55 by James Sena MD) Bilateral hydronephrosis Bradycardia Chronic anemia CVA (cerebral vascular accident) Dependence on peritoneal dialysis Dilated aortic root ESRD (end stage renal disease) GERD (gastroesophageal reflux disease) Hypertension Incomplete bladder emptying Polycystic kidney disease Right bundle branch block (RBBB) on electrocardiogram (ECG) Surgical History AV fistula History of colonoscopy 2019 at [facility] History of surgical procedure Peritoneal dialysis catheter placement by Dr. Kamara 2016 S/P hemodialysis catheter insertion (03/13/20) 23cm long exchanged right IJ Removed on 06/11/2020 Family History Mother Chronic kidney disease (CKD) Other Hypertension Denies family history of Diabetes Social History Alcohol intake: never Household members: family Housing: House History of recent travel: No Vitals/I&O/Wt Last Vital Signs Temp 98.3 F 03/17/21 06:03 Pulse 81 03/17/21 13:29 Resp 20 H 03/17/21 13:29 BP 197/94 03/17/21 13:29 Pulse Ox 95 03/17/21 13:29 03/16/21 03/17/21 03/17/21 22:59 06:59 14:59 Intake Total 7.35 / 7.35 Balance 7.35 / 7.35 Weight last 48 hrs Weight 81.647 kg Physical Exam Narrative: EXAM NARRATIVE: General exam is a male, reporting he still has some discomfort, and nitroglycerin drip is running. HEENT: Pupils equally round. Oropharynx clear. Neck is supple no lymphadenopathy or thyromegaly Cardiovascular regular rate and rhythm with a 2/6 systolic murmur Lungs clear Abdomen is soft. Positive fluid wave. Not particularly tight. Bowel sounds are noted. exam is deferred Extremities no cyanosis or clubbing or edema. AV fistula noted left upper extremity Skin no rash Neuro no focal deficits. Data : 03/17/21 06:26 03/17/21 06:26 Other data: Troponin at baseline is 224 with repeat of 246 Urinalysis is ordered and pending. Chest x-ray no infiltrate EKG demonstrates sinus rhythm, borderline right axis deviation, no acute changes. Septal Q waves are noted. A&P Assessment and plan (1) Chest discomfort: May be associated with hypertensive urgency Doubt myocardial infarction. Status: Acute (2) Elevated troponin: Probable type II evaluation. Cardiology evaluation Check echocardiogram Check TSH. Consider nuclear stress test inpatient or outpatient. Status: Acute (3) ESRD (end stage renal disease): Nephrology consultation for dialysis Status: Acute (4) Hypertension: Hypertensive urgency on admission Started on nitroglycerin drip for blood pressure control. Nephrology consulted. I believe following dialysis this could be weaned down Continue his home medicines as per nephrology Status: Acute Qualifiers: Hypertension type: unspecified Qualified Code(s): I10 - Essential (primary) hypertension Additional A&P Information History of hematuria. 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
[2021-03-17 13:57] LABS: Uric Acid 4.6 mg/dL (3.4-7.0)
[2021-03-17 14:05] LABS: Hepatitis B Surface Antigen Non-Reactive (Nonreactive); Hepatitis C Virus Antibody Non-Reactive (Nonreactive)
[2021-03-17 14:06] LABS: Hepatitis B Surface AB < 3.5 (11.5-1000)
[2021-03-17 14:19] LABS: Troponin 5 6HR 212.9 ng/L (0-15); Troponin 5 6HR Delta -11.1 ng/L (0-12)
[2021-03-17 15:25] LABS: Thyroid Stimulating Hormone 2.77 uIU/mL (0.27-4.20)
[2021-03-17] MEDS: cloNIDine 0.1 mg Tablet PO ×2 (16:49→21:25)
--- NOTE | 2021-03-17 18:02 | PC.NURSE ---
Recieved patient from ER staff. Vitals: HR: 55, SPO2: 95% on room air, Respiratory rate: 18. BP: 227/101. Patient is on a nitroglycerin drip at a rate of 20 MCG/Min. Nurse alerted Dr Oglesby to bradycardia while receiving nitro. Dr oglesby advised to continue to titrate per protocol and hold the 1800 carvedilol. Revaluate need for carvedilol around 2200, after dialysis is done.
[2021-03-17] MEDS: heparin 5,000 unit/mL INJ 1 mL 5000 UNIT SUBCUT (18:39)
[2021-03-17] MEDS: alfuzosin 10 mg ER Tablet PO (18:40)
[2021-03-17] MEDS: levothyroxine 25 mcg Tablet PO (18:40)
[2021-03-18] VITALS (100 sets, daily range): BP systolic 126–201; BP diastolic 69–121; PULSE 53–78; RESP 12–29; TEMP 36.5–37.2; O2SAT 86–100
[2021-03-18] MEDS: acetaminophen 325 mg Tablet 650 MG PO (01:49)
[2021-03-18] MEDS: nitroglycerin drip 50 MG/250 ML PREMIX 33 MG IV (03:32)
[2021-03-18] MEDS: heparin 5,000 unit/mL INJ 1 mL 5000 UNIT SUBCUT ×2 (04:26→17:41)
[2021-03-18 06:07] LABS: Basophils % 0.5 %; Eosinophils # 0.1 10^3/uL (0.0-0.8); Eosinophils % 1.4 %; Hematocrit 31.6 % (42.0-52.0); Hemoglobin 9.2 g/dL (11.7-16.6); Lymphocytes # 1.4 10^3/uL (0.8-4.8); Lymphocytes % 19.2 %; Mean Corpuscular HGB Conc 29.1 g/dL (30.0-36.0); Mean Corpuscular Hemoglobin 31.8 pg (28.0-34.0); Mean Corpuscular Volume 109.3 fl (80-94); Mean Platelet Volume 9.8 fL (7.4-10.4); Monocytes # 0.6 10^3/uL (0.2-0.9); Monocytes % 8.4 %; Neutrophils # 5.18 10^3/uL (1.8-7.7); Neutrophils % 70.1 %; Nucleated Red Blood Cells % 0 %; Platelet Count 227 10^3/cmm (130-400); Red Blood Count 2.89 10^6/uL (4.1-5.3); Red Cell Distribution Width 14.5 % (12.1-15.1); White Blood Count 7.4 10^3/uL (4.0-10.0)
[2021-03-18 06:28] LABS: Alanine Aminotransferase 6 U/L (0-41); Alkaline Phosphatase 75 IU/L (40-130); Anion Gap 13.8 (5-19); Aspartate Amino Transferase 13 U/L (0-40); Blood Urea Nitrogen 17 mg/dL (6-20); Calcium 9.4 mg/dL (8.5-10.5); Carbon Dioxide 29 mmol/L (22-29); Chloride 101 mmol/L (98-107); Ferritin 616 ng/mL (30-400); Globulin 2.3 g/dL (1.3-4.6); Glomerular Filtration Rate 11.3 mL/min (90-130); Glucose 72 mg/dL (65-115); Iron 45 ug/dL (59-158); Magnesium 1.9 mg/dL (1.7-2.3); Osmolality Calculated 290 mOsm/kg (285-295); Percent Saturation 37.5 % (20-50); Phosphorus 3.5 mg/dL (2.5-4.5); Potassium 3.8 mmol/L (3.5-5.1); Sodium 140 mmol/L (136-145); Total Bilirubin 0.2 mg/dL (0.15-1.2); Total Iron Binding Capacity 120 mcg/dl; Total Protein 5.3 g/dL (6.6-8.7); Unsaturated Iron Binding 75 ug/dL (112-347)
[2021-03-18 06:38] LABS: 25 Hydroxy Vitamin D 50 ng/mL (30-100)
[2021-03-18] MEDS: losartan 50 mg Tablet 100 MG PO (07:36)
[2021-03-18] MEDS: isosorbide mononitrate ER 60 mg Tablet PO (07:36)
[2021-03-18] MEDS: cloNIDine 0.1 mg Tablet PO ×3 (07:37→20:33)
[2021-03-18] MEDS: carvedilol 6.25 mg Tablet PO ×2 (07:37→17:39)
--- NOTE | 2021-03-18 07:48 | PM.PN ---
Subjective Subjective: Interval history: still on nitro drip and has htn and cp. no n/v/f/c/gomez/d Medications: Reviewed: Yes Medication Review Details: Current Medications Acetaminophen (Acetaminophen 325 Mg Tablet) 650 mg PO Q6H PRN PRN Reason: Mild/Mod Pain Or Temp >/= 101 Last Admin: 03/18/21 01:49 Dose: 650 mg Documented by: Alfuzosin HCl (Alfuzosin 10 Mg Er Tablet) 10 mg PO DAILY COUNT INCLUDES THE [facility] Last Admin: 03/17/21 18:40 Dose: 10 mg Documented by: Allopurinol (Allopurinol 100 Mg Tablet) 100 mg PO DAILY COUNT INCLUDES THE [facility] Aspirin (Aspirin 325 Mg Tablet) 325 mg PO DAILY COUNT INCLUDES THE [facility] Atorvastatin Calcium (Atorvastatin 40 Mg Tablet) 20 mg PO DAILY COUNT INCLUDES THE [facility] Carvedilol (Carvedilol 6.25 Mg Tablet) 6.25 mg PO BID COUNT INCLUDES THE [facility] Last Admin: 03/18/21 07:37 Dose: 6.25 mg Documented by: Clonidine HCl (Clonidine 0.1 Mg Tablet) 0.1 mg PO TID COUNT INCLUDES THE [facility] Last Admin: 03/18/21 07:37 Dose: 0.1 mg Documented by: Escitalopram Oxalate (Escitalopram 10 Mg Tablet) 40 mg PO DAILY COUNT INCLUDES THE [facility] Finasteride (Finasteride 5 Mg Tablet) 5 mg PO DAILY COUNT INCLUDES THE [facility] Heparin Sodium (Porcine) (Heparin 5,000 Unit/Ml Inj 1 Ml) 5,000 unit SUBCUT Q12H COUNT INCLUDES THE [facility] Last Admin: 03/18/21 04:26 Dose: 5,000 unit Documented by: Nitroglycerin/Dextrose (Nitroglycerin Drip) 50 mg in 250 mls @ 0 mls/hr IV .Q0M COUNT INCLUDES THE [facility]; Protocol Last Titration: 03/18/21 06:33 Dose: 125 mcg/min, 37.5 mls/hr Documented by: Isosorbide Mononitrate (Isosorbide Mononitrate Er 60 Mg Tablet) 60 mg PO DAILY COUNT INCLUDES THE [facility] Last Admin: 03/18/21 07:36 Dose: 60 mg Documented by: Levothyroxine Sodium (Levothyroxine 25 Mcg Tablet) 25 mcg PO DAILY COUNT INCLUDES THE [facility] Last Admin: 03/17/21 18:40 Dose: 25 mcg Documented by: Losartan Potassium (Losartan 50 Mg Tablet) 100 mg PO DAILY COUNT INCLUDES THE [facility] Last Admin: 03/18/21 07:36 Dose: 100 mg Documented by: Non-Formulary Medication (Vit B,Z-Qz-Nffc-Selen-Vit D3-E [Renaplex-D]) 1 tab PO DAILY COUNT INCLUDES THE [facility] Ondansetron HCl (Ondansetron 2 Mg/Ml Sdv 2 Ml) 4 mg IVP Q6H PRN PRN Reason: NAUSEA AND VOMITING Pantoprazole Sodium (Pantoprazole Dr 40 Mg Tablet) 40 mg PO DAILY MINNA Vitals/I&O/Wt Last Vital Signs Temp 98.1 F 03/18/21 04:15 Pulse 60 03/18/21 06:00 Resp 19 H 03/18/21 06:00 BP 175/99 03/18/21 07:37 Pulse Ox 95 03/18/21 06:00 03/17/21 03/18/21 03/18/21 22:59 06:59 14:59 Intake Total 77.275 / 84.625 895.850 / 980.475 Output Total 2335 / 2335 Balance 77.275 / 84.625 -1439.150 / -1354.525 Weight last 48 hrs Weight 83.461 kg Weight 84.1 kg Weight 84.958 kg Weight 81.647 kg Physical Exam Narrative: EXAM NARRATIVE: in bed, NARD, comfortable vs noted heent- nc/at, eomi, anicteric neck supple lungs dull bases heart reg, no rub, +NILAY abd soft, nt, distended, +bs ext- 1+ ankle edema LUE AVF w/ thrill and bruit neuro- a,a, o x 3 Data : 03/17/21 06:26 03/18/21 05:25 A&P Additional A&P Information 55 yrr old man 1. ESRD- s/p hd yesterday -repeat HD in am 4 hrs, 3k, remove 2l 2. htn urgency- wean off nitro -beta julee, clonidine, imdur, add norvasc and hydralazine 3. + trops - cardiac eval per cardiology 4. hgb okay for ESRD- hold epo till bp improves and Cardiac disease clarified iron sat 37%, ferritin 616 5. hematuria and needs anti-plt agents- as per Dr. Dougherty 6. renal - bone-mineral metabolism- normal ca, phos -await vit -d and pth seen and examined w/ RN- telehealth visit -informed consent obtained from pt Attestations Medical Necessity Statement*: htn urgency, ESRD Time Spent in Patient Care: 16 - 35 minutes (>than 50% of time spent in counselling and/or direct pt care on unit). Coding Level of Care Code Acute Representative Personal Service for Eric Sandhu
[2021-03-18 08:09] LABS: Calcium 9.4 mg/dL (8.5-10.5)
[2021-03-18 08:17] LABS: Parathyroid Hormone 292.5 pg/mL (15-65)
[2021-03-18] MEDS: finasteride 5 mg Tablet PO (09:09)
[2021-03-18] MEDS: levothyroxine 25 mcg Tablet PO (09:09)
[2021-03-18] MEDS: allopurinol 100 mg Tablet PO (09:09)
[2021-03-18] MEDS: pantoprazole DR 40 mg Tablet PO (09:09)
[2021-03-18] MEDS: alfuzosin 10 mg ER Tablet PO (09:09)
[2021-03-18] MEDS: aspirin 325 mg Tablet PO (09:09)
[2021-03-18] MEDS: hyDRALAzine 10 mg Tablet PO (09:09)
[2021-03-18] MEDS: atorvastatin 40 mg Tablet 20 MG PO (09:09)
[2021-03-18] MEDS: amlodipine 5 mg Tablet PO (09:09)
[2021-03-18] MEDS: escitalopram 10 mg Tablet 40 MG PO (09:11)
[2021-03-18] MEDS: nitroglycerin drip 50 MG/250 ML PREMIX 37.5 MG IV (11:37)
--- NOTE | 2021-03-18 13:18 | P.PN_ITS ---
Subjective Subjective: Interval history: Blood pressure is still signficantly elevated. Denies chest pain. On nitro gtt Vitals/I&O/Wt Last Vital Signs Temp 98.6 F 03/18/21 12:00 Pulse 56 L 03/18/21 12:30 Resp 18 03/18/21 12:30 BP 187/99 03/18/21 12:30 Pulse Ox 96 03/18/21 12:15 03/17/21 03/18/21 03/18/21 22:59 06:59 14:59 Intake Total 77.275 / 84.625 895.850 / 980.475 144.3 / 144.3 Output Total 2335 / 2335 Balance 77.275 / 84.625 -1439.150 / -1354.525 144.3 / 144.3 Weight last 48 hrs Weight 184 lb Weight 185 lb 6.54 oz Weight 187 lb 4.8 oz Weight 180 lb Physical Exam Narrative: EXAM NARRATIVE: General: Alert and oriented x 3 Neck Supple Cardiovascular: Regular rate and rhythm Lungs: clear to auscultation Abdomen is soft. Extremities no significant edema Data : 03/19/21 04:53 03/19/21 04:53 A&P Assessment and plan (1) Elevated troponin: Status: Acute (2) Chest discomfort: Status: Acute (3) Hypertension: Status: Acute Qualifiers: Hypertension type: unspecified Qualified Code(s): I10 - Essential (primary) hypertension (4) Hypertensive urgency: Status: Acute Patient has presenteed with hypertensive urgency and atypical chest discomfort likely secondary to high blood pressure. Troponin elevation likely secondary to demand ischemia in the setting of hypertensive urgency and ESRD. I have recommended ischemic work up however he does not want to have cath or str ess test. Only wants medical therapy ECHO showed normal LV systolic function with grade 2 diastolic dysfunction Aspirin and statin therapy Patient could not complete the dialysis session yesterday because of back pain. Nitro gtt can be downtitrated. Uptitrate hydralazine to 50mg TID. If blood press ure still high, can go to 100mg TID. Dialysis planned again today. Thank you for involving us with care of this patient. We josé miguel conitnue to follow. Please call with questions Attestations Medical Necessity Statement*: Care expected to cross 2 midnights. 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
--- NOTE | 2021-03-18 15:01 | P.PN_ITS ---
Subjective Subjective: Interval history: Navneet reports that he is feeling okay. No significant chest discomfort right now. Confirms he does not want any stress testing or cardiac intervention other than medication adjustment. Medications: Reviewed: Yes Vitals/I&O/Wt Last Vital Signs Temp 98.6 F 03/18/21 12:00 Pulse 56 L 03/18/21 12:30 Resp 18 03/18/21 12:30 BP 187/99 03/18/21 12:30 Pulse Ox 96 03/18/21 12:15 03/18/21 03/18/21 03/18/21 06:59 14:59 22:59 Intake Total 895.850 / 980.475 144.3 / 144.3 Output Total 2335 / 2335 Balance -1439.150 / -1354.525 144.3 / 144.3 Weight last 48 hrs Weight 83.461 kg Weight 84.1 kg Weight 84.958 kg Weight 81.647 kg Physical Exam Narrative: EXAM NARRATIVE: General exam no distress. Still on significant amount of nitroglycerin IV for blood pressure lowering Neck is supple no lymphadenopathy or thyromegaly Cardiovascular regular rate and rhythm with a 2/6 systolic murmur Lungs clear Abdomen is soft. Positive fluid wave. Not particularly tight. Bowel sounds are noted. Extremities no cyanosis or clubbing or edema. AV fistula noted left upper extremity Data : 03/18/21 05:25 03/18/21 05:25 A&P Assessment and plan (1) Chest discomfort: May be associated with hypertensive urgency Doubt myocardial infarction. Patient does not want significant cardiac work-up, only wants treated medically Appreciate cardiology consultation. Aspirin, statin, Imdur, beta-julee Status: Acute (2) Elevated troponin: Probable type II evaluation. Echocardiogram demonstrates EF of 55 to 60%, grade 2 diastolic dysfunction TSH checked and normal Status: Acute (3) ESRD (end stage renal disease): Nephrology consultation for dialysis. Dialysis was given 03/17 Status: Acute (4) Hypertension: Hypertensive urgency on admission Started on nitroglycerin drip for blood pressure control. Currently on losartan, amlodipine, carvedilol, clonidine. Hydralazine added as well. Continue Imdur Dose of carvedilol decrease likely secondary to bradycardia noted yesterday. Status: Acute Qualifiers: Hypertension type: unspecified Qualified Code(s): I10 - Essential (primary) hypertension Additional A&P Information History of hematuria. Check urinalysis Full code Heparin for DVT prophylaxis Attestations Medical Necessity Statement*: Needs continued hospitalization secondary to hypertensive urgency requiring nitroglycerin drip Coding Level of Care Code Acute Arborist Representative for Chg Fwd Diagnoses Chest discomfort R07.89 Elevated troponin R77.8 ESRD (end stage renal disease) N18.6 Hypertension I10 Hypertension type: unspecified
--- NOTE | 2021-03-18 19:52 | PC.NURSE ---
SHift summary: Patient rested in bed throughout the day. Low on energy and not much of an appetite, but became more energetic by end shift and at about 50% of his dinner. Nurse was able to titrate down the nitroglycerin drip from 120mcg/min to 35mcg/min. Otherwise uneventful shift.
[2021-03-18] MEDS: hyDRALAzine 10 mg Tablet 25 MG PO (20:33)
[2021-03-19] VITALS (91 sets, daily range): BP systolic 125–202; BP diastolic 73–113; PULSE 56–78; RESP 9–27; TEMP 36.4–36.9; O2SAT 89–99
[2021-03-19] MEDS: nitroglycerin drip 50 MG/250 ML PREMIX 18 MG IV (02:00)
[2021-03-19] MEDS: heparin 5,000 unit/mL INJ 1 mL 5000 UNIT SUBCUT ×2 (05:22→17:00)
[2021-03-19 05:31] LABS: Basophils % 0.3 %; Eosinophils # 0.1 10^3/uL (0.0-0.8); Eosinophils % 1.5 %; Hematocrit 27.2 % (42.0-52.0); Lymphocytes # 2.1 10^3/uL (0.8-4.8); Lymphocytes % 21.8 %; Mean Corpuscular HGB Conc 33.1 g/dL (30.0-36.0); Mean Corpuscular Hemoglobin 31.3 pg (28.0-34.0); Mean Corpuscular Volume 94.4 fl (80-94); Mean Platelet Volume 10.3 fL (7.4-10.4); Monocytes # 0.8 10^3/uL (0.2-0.9); Monocytes % 8.3 %; Neutrophils # 6.43 10^3/uL (1.8-7.7); Neutrophils % 67.9 %; Nucleated Red Blood Cells % 0 %; Platelet Count 229 10^3/cmm (130-400); Red Blood Count 2.88 10^6/uL (4.1-5.3); Red Cell Distribution Width 14.2 % (12.1-15.1); White Blood Count 9.5 10^3/uL (4.0-10.0)
[2021-03-19 06:12] LABS: Alanine Aminotransferase < 5 U/L (0-41); Alkaline Phosphatase 73 IU/L (40-130); Anion Gap 15.6 (5-19); Aspartate Amino Transferase 11 U/L (0-40); Blood Urea Nitrogen 29 mg/dL (6-20); Calcium 9.5 mg/dL (8.5-10.5); Carbon Dioxide 28 mmol/L (22-29); Chloride 97 mmol/L (98-107); Globulin 2.4 g/dL (1.3-4.6); Glomerular Filtration Rate 8.8 mL/min (90-130); Glucose 86 mg/dL (65-115); Magnesium 1.9 mg/dL (1.7-2.3); Osmolality Calculated 289 mOsm/kg (285-295); Phosphorus 4.1 mg/dL (2.5-4.5); Potassium 3.6 mmol/L (3.5-5.1); Sodium 137 mmol/L (136-145); Total Bilirubin 0.2 mg/dL (0.15-1.2); Total Protein 5.4 g/dL (6.6-8.7)
--- NOTE | 2021-03-19 07:56 | PM.PN ---
Subjective Subjective: Interval history: Patient is overall doing well. Denies chest pain. Still requiring nitro gtt. Vitals/I&O/Wt Last Vital Signs Temp 98.1 F 03/19/21 07:37 Pulse 67 03/19/21 07:37 Resp 20 H 03/19/21 07:37 BP 186/92 03/19/21 07:37 Pulse Ox 95 03/19/21 07:37 03/18/21 03/19/21 03/19/21 22:59 06:59 14:59 Intake Total 550 / 694.3 289.775 / 984.075 38.25 / 38.25 Output Total 0 / 0 Balance 550 / 694.3 289.775 / 984.075 38.25 / 38.25 Weight last 48 hrs Weight 185 lb Weight 184 lb Weight 185 lb 6.54 oz Weight 187 lb 4.8 oz Physical Exam Narrative: EXAM NARRATIVE: General: Alert and oriented x 3 Neck Supple Cardiovascular: Regular rate and rhythm Lungs: clear to auscultation Abdomen is soft. Extremities no significant edema Data : 03/20/21 04:50 03/20/21 04:50 A&P Assessment and plan (1) Elevated troponin: Status: Acute (2) Chest discomfort: Status: Acute (3) Hypertension: Status: Acute Qualifiers: Hypertension type: unspecified Qualified Code(s): I10 - Essential (primary) hypertension (4) Hypertensive urgency: Status: Acute Patient has presenteed with hypertensive urgency and atypical chest discomfort likely secondary to high blood pressure. Troponin elevation likely secondary to demand ischemia in the setting of hypertensive urgency and ESRD. I have recommended ischemic work up however he does not want to have cath or stress test. Only wants medical therapy ECHO showed normal LV systolic function with grade 2 diastolic dysfunction Aspirin and statin therapy Continue dialysis. Still needing nitro drip. Uptitrate hydralazine to 100 mg twice daily. If blood pressure still stays elevated can uptitrate Coreg. Thank you for involving us with care of this patient. We josé miguel conitnue to follow. Please call with questions Attestations Medical Necessity Statement*: Care expected to cross 2 midnights. Coding Level of Care Code Acute Juice Packaging Machines Setter for Eric Sandhu Diagnoses Elevated troponin R77.8 Chest discomfort R07.89 Hypertension I10 Hypertension type: unspecified Hypertensive urgency I16.0
[2021-03-19] MEDS: amlodipine 5 mg Tablet PO (08:28)
[2021-03-19] MEDS: isosorbide mononitrate ER 60 mg Tablet PO (08:28)
[2021-03-19] MEDS: cloNIDine 0.1 mg Tablet PO ×3 (08:29→20:44)
[2021-03-19] MEDS: atorvastatin 40 mg Tablet 20 MG PO (08:29)
[2021-03-19] MEDS: allopurinol 100 mg Tablet PO (08:29)
[2021-03-19] MEDS: carvedilol 6.25 mg Tablet PO ×2 (08:29→17:00)
[2021-03-19] MEDS: aspirin 325 mg Tablet PO (08:29)
[2021-03-19] MEDS: losartan 50 mg Tablet 100 MG PO (08:29)
[2021-03-19] MEDS: finasteride 5 mg Tablet PO (08:29)
[2021-03-19] MEDS: hyDRALAzine 10 mg Tablet 25 MG PO (08:29)
[2021-03-19] MEDS: levothyroxine 25 mcg Tablet PO (08:29)
[2021-03-19] MEDS: pantoprazole DR 40 mg Tablet PO (08:29)
--- NOTE | 2021-03-19 08:29 | P.PN_ITS ---
Subjective Subjective: Interval history: remains on nitro drip. BP remains elevated. remains on nc 02. getting dialysis this am. Medications: Reviewed: Yes Medication Review Details: Current Medications Acetaminophen (Acetaminophen 325 Mg Tablet) 650 mg PO Q6H PRN PRN Reason: Mild/Mod Pain Or Temp >/= 101 Last Admin: 03/18/21 01:49 Dose: 650 mg Documented by: Alfuzosin HCl (Alfuzosin 10 Mg Er Tablet) 10 mg PO DAILY [facility] Last Admin: 03/18/21 09:09 Dose: 10 mg Documented by: Allopurinol (Allopurinol 100 Mg Tablet) 100 mg PO DAILY [facility] Last Admin: 03/19/21 08:29 Dose: 100 mg Documented by: Amlodipine Besylate (Amlodipine 5 Mg Tablet) 5 mg PO DAILY [facility] Last Admin: 03/19/21 08:28 Dose: 5 mg Documented by: Aspirin (Aspirin 325 Mg Tablet) 325 mg PO DAILY [facility] Last Admin: 03/19/21 08:29 Dose: 325 mg Documented by: Atorvastatin Calcium (Atorvastatin 40 Mg Tablet) 20 mg PO DAILY [facility] Last Admin: 03/19/21 08:29 Dose: 20 mg Documented by: Carvedilol (Carvedilol 6.25 Mg Tablet) 6.25 mg PO BID [facility] Last Admin: 03/19/21 08:29 Dose: 6.25 mg Documented by: Clonidine HCl (Clonidine 0.1 Mg Tablet) 0.1 mg PO TID [facility] Last Admin: 03/19/21 08:29 Dose: 0.1 mg Documented by: Escitalopram Oxalate (Escitalopram 10 Mg Tablet) 40 mg PO DAILY [facility] Last Admin: 03/19/21 08:30 Dose: 40 mg Documented by: Finasteride (Finasteride 5 Mg Tablet) 5 mg PO DAILY [facility] Last Admin: 03/19/21 08:29 Dose: 5 mg Documented by: Heparin Sodium (Porcine) (Heparin 5,000 Unit/Ml Inj 1 Ml) 5,000 unit SUBCUT Q12H [facility] Last Admin: 03/19/21 05:22 Dose: 5,000 unit Documented by: Hydralazine HCl (Hydralazine 10 Mg Tablet) 25 mg PO TID [facility] Last Admin: 03/19/21 08:29 Dose: 25 mg Documented by: Nitroglycerin/Dextrose (Nitroglycerin Drip) 50 mg in 250 mls @ 0 mls/hr IV .Q0M [facility]; Protocol Last Titration: 03/19/21 07:48 Dose: 80 mcg/min, 24 mls/hr Documented by: Isosorbide Mononitrate (Isosorbide Mononitrate Er 60 Mg Tablet) 60 mg PO DAILY [facility] Last Admin: 03/19/21 08:28 Dose: 60 mg Documented by: Levothyroxine Sodium (Levothyroxine 25 Mcg Tablet) 25 mcg PO DAILY [facility] Last Admin: 03/19/21 08:29 Dose: 25 mcg Documented by: Losartan Potassium (Losartan 50 Mg Tablet) 100 mg PO DAILY [facility] Last Admin: 03/19/21 08:29 Dose: 100 mg Documented by: Non-Formulary Medication (Vit B,K-Ww-Vvnf-Selen-Vit D3-E [Renaplex-D]) 1 tab PO DAILY [facility] Last Admin: 03/18/21 10:32 Dose: Not Given Documented by: Ondansetron HCl (Ondansetron 2 Mg/Ml Sdv 2 Ml) 4 mg IVP Q6H PRN PRN Reason: NAUSEA AND VOMITING Pantoprazole Sodium (Pantoprazole Dr 40 Mg Tablet) 40 mg PO DAILY [facility] Last Admin: 03/19/21 08:29 Dose: 40 mg Documented by: Vitals/I&O/Wt Last Vital Signs Temp 98.1 F 03/19/21 07:37 Pulse 67 03/19/21 07:37 Resp 20 H 03/19/21 07:37 BP 186/92 03/19/21 07:37 Pulse Ox 95 03/19/21 07:37 03/18/21 03/19/21 03/19/21 22:59 06:59 14:59 Intake Total 550 / 694.3 289.775 / 984.075 38.25 / 38.25 Output Total 0 / 0 Balance 550 / 694.3 289.775 / 984.075 38.25 / 38.25 Weight last 48 hrs Weight 83.915 kg Weight 83.461 kg Weight 84.1 kg Weight 84.958 kg Physical Exam Narrative: EXAM NARRATIVE: in bed, on nitro drip vs noted heent- nc/at, eomi, anicteric neck supple lungs dull bases heart reg, no rub, +NILAY abd soft, nt, distended, +bs ext- 1+ ankle edema LUE AVF w/ thrill and bruit neuro- a,a, o x 3 Data : 03/19/21 04:53 03/19/21 04:53 A&P Additional A&P Information 55 yrr old man 1. ESRD- s/p hd on 03-17-21 -HD now 4 hrs, 3k, remove 2l 2. htn urgency- wean off nitro -beta julee, clonidine, imdur, add norvasc and hydralazine -remove fluids on dialysis as tolerated 3. + trops - cardiac eval per cardiology 4. hgb 9- ESRD- hold epo till bp improves and Cardiac disease clarified iron sat 37%, ferritin 616 5. hematuria and needs anti-plt agents- as per Dr. Dougherty 6. renal - bone-mineral metabolism- normal ca, phos -await vit -d and pth= 292 seen and examined w/ RN- telehealth visit -informed consent obtained from pt Attestations Medical Necessity Statement*: htn urgency, esrd Time Spent in Patient Care: 16 - 35 minutes Coding Level of Care Code Acute Quilting Supervisor for Efreng Phoebe
[2021-03-19] MEDS: escitalopram 10 mg Tablet 40 MG PO (08:30)
[2021-03-19] MEDS: alfuzosin 10 mg ER Tablet PO (08:32)
--- NOTE | 2021-03-19 10:05 | PC.CHAP ---
Pastoral Care Encounter/Spiritual Assessment Type of Contact [] Declined stock mixer visit [] Patient/Family/Request visit [] Outpatient visit [] Follow-up visit [] Physician referral [] Code/Alert [x] Routine visit [] Staff referral [] Actively dying [] Patient sleeping [] Family support [] [] Out of room [] Palliative care [] [] Receiving care in room [] Pre-surgical visit [] Trauma [] Long length of stay [x] ICU visit [x] Other: dialyses Relational/Emotional Strength [] Patient feels connected with others/family/visitors/staff [] Distress [] Loneliness/isolation [] Abandonment Spirituality of Patient [] Person of Nora [] Attends Taoist of their Nora [] Believes in Prayer [] Reads Bible or Confucianist materials [] There are Spiritual issues to be addressed Media Producer Interventions [x] Prayer [x] Active listening [x] Non-anxious presence [x] Spiritual/emotional support [] Crisis/trauma care [] Spiritual counseling [] Bereavement support [] Provided bereavement packet [] Provided Bible/devotional materials [] Provided toy/stuffed animal, coloring book to patient or family member [] Provided Communion [] Anointing/Zearing [] Salvation [x] Completed spiritual assessment [] Other: Impact on Illness or Injury [] Angry [] Fearful [] Anxious [] Often cries [] Exhaustion [] Unable to work [] Unable to attend synagogue [] Unable to walk/stand [] Unable to read [] Unable to drive [] Unable to eat/drink [] Unable to sleep [] Unable to be with family [] Patient intubated [] Other: Summary patient resting pretty good during procedure Time spent with patient 5 min
--- NOTE | 2021-03-19 10:11 | P.PN_ITS ---
Subjective Subjective: Interval history: Navneet reports he is doing okay. No chest discomfort. He relates he has a headache. Medications: Reviewed: Yes Vitals/I&O/Wt Last Vital Signs Temp 98.1 F 03/19/21 07:37 Pulse 67 03/19/21 07:37 Resp 20 H 03/19/21 07:37 BP 186/92 03/19/21 07:37 Pulse Ox 95 03/19/21 07:37 03/18/21 03/19/21 03/19/21 22:59 06:59 14:59 Intake Total 550 / 694.3 289.775 / 984.075 423.85 / 423.85 Output Total 0 / 0 Balance 550 / 694.3 289.775 / 984.075 423.85 / 423.85 Weight last 48 hrs Weight 83.915 kg Weight 83.461 kg Weight 84.1 kg Weight 84.958 kg Physical Exam Narrative: EXAM NARRATIVE: General exam no distress. Still on nitroglycerin Neck is supple no lymphadenopathy or thyromegaly Cardiovascular regular rate and rhythm with a 2/6 systolic murmur Lungs clear Abdomen is soft. Positive fluid wave. Not particularly tight. Bowel sounds are noted. Extremities no cyanosis or clubbing or edema. AV fistula noted left upper extremity Data : 03/19/21 04:53 03/19/21 04:53 A&P Assessment and plan (1) Chest discomfort: May be associated with hypertensive urgency Doubt myocardial infarction. Patient does not want significant cardiac work-up, only wants treated medically Appreciate cardiology consultation. Aspirin, statin, Imdur, beta-julee Status: Acute (2) Elevated troponin: Probable type II evaluation. Echocardiogram demonstrates EF of 55 to 60%, grade 2 diastolic dysfunction TSH checked and normal Status: Acute (3) ESRD (end stage renal disease): Nephrology consultation for dialysis. Dialysis was given 03/17 Status: Acute (4) Hypertension: Hypertensive urgency on admission Started on nitroglycerin drip for blood pressure control. Currently on losartan, amlodipine, carvedilol, clonidine. Hydralazine added as well. Continue Imdur Dose of carvedilol decrease likely secondary to bradycardia Increase hydralazine Status: Acute Qualifiers: Hypertension type: unspecified Qualified Code(s): I10 - Essential (primary) hypertension Additional A&P Information History of hematuria. Check urinalysis Full code Heparin for DVT prophylaxis Attestations Medical Necessity Statement*: Needs continued hospital stay for medication adjustment secondary to hypertensive urgency still requiring nitroglycerin drip. Critical Care Time: The high probability of a clinically significant, sudden or life threatening deterioration of the patient's [cardiac] system(s) required my full and direct attention, intervention and personal management. The critical care time is as shown. This time is in addition to time spent performing any reported procedures but includes the following: [x] Data and vital sign review and interpretation [x] Patient assessment, examination and intervention [x] Documentation [x] Medication orders and management Critical Care Time (min): 32 Coding Level of Care Code Acute Lubrication Supervisor for Chg Fwd Diagnoses Chest discomfort R07.89 Elevated troponin R77.8 ESRD (end stage renal disease) N18.6 Hypertension I10 Hypertension type: unspecified
[2021-03-19] MEDS: nitroglycerin drip 50 MG/250 ML PREMIX 22.5 MG IV (11:09)
--- NOTE | 2021-03-19 12:29 | PC.NURSE ---
Dialysis nurse handoff Citlaly MORRISON reported she was able to remove 2litres of fluid from pt through hemodialysis. Pt had no events during treatment.
[2021-03-19] MEDS: acetaminophen 325 mg Tablet 650 MG PO (12:43)
[2021-03-19] MEDS: hyDRALAzine 10 mg Tablet 50 MG PO (15:16)
--- NOTE | 2021-03-19 18:27 | PC.NURSE ---
Shift Note Frequent safety and comfort rounds continue. Orders and/or nursing care completed as indicated. Patient monitored for response to intervention and treatment(s). Education provided includes afib. Patient and/or benefits representative verbalize understanding. Pt had 2 litres of fluid removed during hemodialysis today. Nitro is still on at 20. Will continue to monitor.
--- NOTE | 2021-03-19 19:00 | PC.NURSE ---
Nitro Drip Upon assessment of patient, Nitro drip running at 30 mcg/min while MAR showed 20 mcg/min. Patient blood pressure 156/90. MAR updated to show actual rate of administration. BP to be monitored.
[2021-03-19] MEDS: hyDRALAzine 50 mg Tablet 100 MG PO (20:52)
--- NOTE | 2021-03-19 22:39 | PC.NURSE ---
Nitroglycerin gtt Education Patient states wish to turn nitro gtt down. Education provided on parameters of titrating nitro and goal systolic blood pressure measurement. Education also provided on past and current strength of doses. Patient verbalized understanding.
[2021-03-20] VITALS (67 sets, daily range): BP systolic 118–192; BP diastolic 54–107; PULSE 59–79; RESP 9–25; TEMP 36.7–36.9; O2SAT 89–99; BMI 29.5
[2021-03-20] MEDS: acetaminophen 325 mg Tablet 650 MG PO (05:03)
[2021-03-20] MEDS: heparin 5,000 unit/mL INJ 1 mL 5000 UNIT SUBCUT ×2 (05:04→16:59)
[2021-03-20 05:43] LABS: Basophils % 0.4 %; Eosinophils # 0.1 10^3/uL (0.0-0.8); Eosinophils % 1.4 %; Hematocrit 28.6 % (42.0-52.0); Hemoglobin 9.2 g/dL (11.7-16.6); Lymphocytes # 1.8 10^3/uL (0.8-4.8); Lymphocytes % 25.5 %; Mean Corpuscular HGB Conc 32.2 g/dL (30.0-36.0); Mean Corpuscular Hemoglobin 30.9 pg (28.0-34.0); Mean Platelet Volume 10.4 fL (7.4-10.4); Monocytes # 0.7 10^3/uL (0.2-0.9); Monocytes % 9.5 %; Neutrophils # 4.51 10^3/uL (1.8-7.7); Neutrophils % 63.1 %; Nucleated Red Blood Cells % 0 %; Platelet Count 241 10^3/cmm (130-400); Red Blood Count 2.98 10^6/uL (4.1-5.3); Red Cell Distribution Width 14.6 % (12.1-15.1); White Blood Count 7.2 10^3/uL (4.0-10.0)
[2021-03-20 06:15] LABS: Alanine Aminotransferase 6 U/L (0-41); Alkaline Phosphatase 73 IU/L (40-130); Anion Gap 13.5 (5-19); Aspartate Amino Transferase 12 U/L (0-40); Blood Urea Nitrogen 19 mg/dL (6-20); Calcium 9.6 mg/dL (8.5-10.5); Carbon Dioxide 28 mmol/L (22-29); Chloride 97 mmol/L (98-107); Globulin 2.6 g/dL (1.3-4.6); Glomerular Filtration Rate 11.1 mL/min (90-130); Glucose 85 mg/dL (65-115); Magnesium 2.1 mg/dL (1.7-2.3); Osmolality Calculated 282 mOsm/kg (285-295); Potassium 3.5 mmol/L (3.5-5.1); Sodium 135 mmol/L (136-145); Total Bilirubin 0.2 mg/dL (0.15-1.2); Total Protein 5.6 g/dL (6.6-8.7)
--- NOTE | 2021-03-20 08:01 | P.PN_ITS ---
Subjective Subjective: Interval history: still on nitro drip- feels better. no gomez, cp, sob. weak and lethargic. Medications: Reviewed: Yes Medication Review Details: Current Medications Acetaminophen (Acetaminophen 325 Mg Tablet) 650 mg PO Q6H PRN PRN Reason: Mild/Mod Pain Or Temp >/= 101 Last Admin: 03/20/21 05:03 Dose: 650 mg Documented by: Alfuzosin HCl (Alfuzosin 10 Mg Er Tablet) 10 mg PO DAILY [facility] Last Admin: 03/19/21 08:32 Dose: 10 mg Documented by: Allopurinol (Allopurinol 100 Mg Tablet) 100 mg PO DAILY [facility] Last Admin: 03/19/21 08:29 Dose: 100 mg Documented by: Amlodipine Besylate (Amlodipine 5 Mg Tablet) 10 mg PO DAILY [facility] Aspirin (Aspirin 325 Mg Tablet) 325 mg PO DAILY [facility] Last Admin: 03/19/21 08:29 Dose: 325 mg Documented by: Atorvastatin Calcium (Atorvastatin 40 Mg Tablet) 20 mg PO DAILY [facility] Last Admin: 03/19/21 08:29 Dose: 20 mg Documented by: Carvedilol (Carvedilol 6.25 Mg Tablet) 6.25 mg PO BID [facility] Last Admin: 03/19/21 17:00 Dose: 6.25 mg Documented by: Clonidine HCl (Clonidine 0.1 Mg Tablet) 0.1 mg PO TID [facility] Last Admin: 03/19/21 20:44 Dose: 0.1 mg Documented by: Escitalopram Oxalate (Escitalopram 10 Mg Tablet) 40 mg PO DAILY [facility] Last Admin: 03/19/21 08:30 Dose: 40 mg Documented by: Finasteride (Finasteride 5 Mg Tablet) 5 mg PO DAILY [facility] Last Admin: 03/19/21 08:29 Dose: 5 mg Documented by: Heparin Sodium (Porcine) (Heparin 5,000 Unit/Ml Inj 1 Ml) 5,000 unit SUBCUT Q12H [facility] Last Admin: 03/20/21 05:04 Dose: 5,000 unit Documented by: Hydralazine HCl (Hydralazine 50 Mg Tablet) 100 mg PO TID [facility] Last Admin: 03/19/21 20:52 Dose: 100 mg Documented by: Nitroglycerin/Dextrose (Nitroglycerin Drip) 50 mg in 250 mls @ 0 mls/hr IV .Q0M [facility]; Protocol Last Titration: 03/20/21 07:34 Dose: Infused Documented by: Isosorbide Mononitrate (Isosorbide Mononitrate Er 60 Mg Tablet) 60 mg PO DAILY [facility] Last Admin: 03/19/21 08:28 Dose: 60 mg Documented by: Levothyroxine Sodium (Levothyroxine 25 Mcg Tablet) 25 mcg PO DAILY [facility] Last Admin: 03/19/21 08:29 Dose: 25 mcg Documented by: Losartan Potassium (Losartan 50 Mg Tablet) 100 mg PO DAILY [facility] Last Admin: 03/19/21 08:29 Dose: 100 mg Documented by: Non-Formulary Medication (Vit B,Q-Ea-Hgud-Selen-Vit D3-E [Renaplex-D]) 1 tab PO DAILY [facility] Last Admin: 03/19/21 08:33 Dose: Not Given Documented by: Ondansetron HCl (Ondansetron 2 Mg/Ml Sdv 2 Ml) 4 mg IVP Q6H PRN PRN Reason: NAUSEA AND VOMITING Pantoprazole Sodium (Pantoprazole Dr 40 Mg Tablet) 40 mg PO DAILY [facility] Last Admin: 03/19/21 08:29 Dose: 40 mg Documented by: Vitals/I&O/Wt Last Vital Signs Temp 98.3 F 03/20/21 04:00 Pulse 59 L 03/20/21 06:45 Resp 16 03/20/21 06:45 BP 140/80 03/20/21 06:45 Pulse Ox 96 03/20/21 06:45 03/19/21 03/20/21 03/20/21 22:59 06:59 14:59 Intake Total 618.375 / 1455.350 86.275 / 1541.625 24.225 / 24.225 Output Total 0 / 2300 0 / 2300 Balance 618.375 / -844.650 86.275 / -758.375 24.225 / 24.225 Weight last 48 hrs Weight 82.962 kg Weight 84.7 kg Weight 83.915 kg Physical Exam Narrative: EXAM NARRATIVE: in bed, on nitro drip - NARD vs noted heent- nc/at, eomi, anicteric neck supple lungs dull bases heart reg, no rub, +NILAY abd soft, nt, distended, +bs ext- 1+ ankle edema LUE AVF w/ thrill and bruit neuro- a,a, o x 3 Data : 03/20/21 04:50 03/20/21 04:50 A&P Additional A&P Information 55 yrr old man 1. ESRD- s/p hd on 03-19-21 - repeat HD in AM 4 hrs, 3k, remove 2l 2. htn urgency- wean off nitro -beta julee, clonidine, imdur, norvasc and hydralazine- consider inc clonidine dose -remove fluids on dialysis as tolerated 3. + trops - cardiac eval per cardiology -pt does not want a cardiac intervention or tests -med management Echocardiogram demonstrates EF of 55 to 60%, grade 2 diastolic dysfunction 4. anemia- when off nitro drip- start epo w/ HD iron sat 37%, ferritin 616 5. hematuria and needs anti-plt agents- as per Dr. Dougherty 6. renal - bone-mineral metabolism- normal ca, phos vit-d 50 and pth= 292 - zemplar w/ HD seen and examined w/ RN- telehealth visit -informed consent obtained from pt Attestations Medical Necessity Statement*: htn urgency on nitro drip Time Spent in Patient Care: 16 - 35 minutes Coding Level of Care Code Acute Mimeographer for Efreng Phoebe
[2021-03-20] MEDS: levothyroxine 25 mcg Tablet PO (08:16)
[2021-03-20] MEDS: allopurinol 100 mg Tablet PO (08:16)
[2021-03-20] MEDS: escitalopram 10 mg Tablet 40 MG PO (08:16)
[2021-03-20] MEDS: aspirin 325 mg Tablet PO (08:16)
[2021-03-20] MEDS: alfuzosin 10 mg ER Tablet PO (08:16)
[2021-03-20] MEDS: cloNIDine 0.1 mg Tablet PO ×3 (08:16→20:04)
[2021-03-20] MEDS: amlodipine 5 mg Tablet 10 MG PO (08:17)
[2021-03-20] MEDS: finasteride 5 mg Tablet PO (08:17)
[2021-03-20] MEDS: carvedilol 6.25 mg Tablet PO (08:17)
[2021-03-20] MEDS: pantoprazole DR 40 mg Tablet PO (08:17)
[2021-03-20] MEDS: losartan 50 mg Tablet 100 MG PO (08:17)
[2021-03-20] MEDS: hyDRALAzine 50 mg Tablet 100 MG PO ×3 (08:17→20:04)
[2021-03-20] MEDS: isosorbide mononitrate ER 60 mg Tablet PO (08:17)
[2021-03-20] MEDS: atorvastatin 40 mg Tablet 20 MG PO (08:17)
--- NOTE | 2021-03-20 09:14 | PC.NURSE ---
0855 nitro gtt decreased to 55mcg/min
--- NOTE | 2021-03-20 09:35 | PC.NURSE ---
nitro gtt to 45 at 0915 nitro gtt to 35 at 0930
--- NOTE | 2021-03-20 09:43 | PC.NURSE ---
0700 Report received, assessment completed. Pt AAOx4. Makes all needs known. Nitro gtt infusing per orders. Orders to titrate. No dialysis ordered per Dr. Delgado. Will monitor.
--- NOTE | 2021-03-20 09:48 | PM.PN ---
Subjective Subjective: Interval history: Navneet reports he is doing okay. No chest discomfort. No significant headache currently. Medications: Reviewed: Yes Vitals/I&O/Wt Last Vital Signs Temp 98.4 F 03/20/21 08:00 Pulse 70 03/20/21 08:00 Resp 17 03/20/21 08:00 BP 188/107 03/20/21 08:17 Pulse Ox 96 03/20/21 08:00 03/19/21 03/20/21 03/20/21 22:59 06:59 14:59 Intake Total 618.375 / 1455.350 86.275 / 1541.625 24.225 / 24.225 Output Total 0 / 2300 0 / 2300 Balance 618.375 / -844.650 86.275 / -758.375 24.225 / 24.225 Weight last 48 hrs Weight 82.962 kg Weight 84.7 kg Weight 83.915 kg Physical Exam Narrative: EXAM NARRATIVE: General exam no distress. Still on nitroglycerin Neck is supple no lymphadenopathy or thyromegaly Cardiovascular regular rate and rhythm with a 2/6 systolic murmur Lungs clear Abdomen is soft. Positive fluid wave. Not particularly tight. Bowel sounds are noted. Extremities no cyanosis or clubbing or edema. AV fistula noted left upper extremity Data : 03/20/21 04:50 03/20/21 04:50 A&P Assessment and plan (1) Chest discomfort: May be associated with hypertensive urgency Doubt myocardial infarction. Patient does not want significant cardiac work-up, only wants treated medically Appreciate cardiology consultation. Continue aspirin, statin, Imdur, beta-julee Status: Acute (2) Elevated troponin: Probable type II evaluation. Echocardiogram demonstrates EF of 55 to 60%, grade 2 diastolic dysfunction TSH checked and normal Status: Acute (3) ESRD (end stage renal disease): Nephrology consultation for dialysis. Dialysis was given 03/17 Status: Acute (4) Hypertension: Hypertensive urgency on admission Started on nitroglycerin drip for blood pressure control. Trying to wean this off. Currently on losartan, amlodipine, carvedilol, clonidine. Continue hydralazine. Continue Imdur Cardiology has increased carvedilol to 12.5 mg twice daily. We will see if this is effective. If not consider increasing clonidine to 0.2 mg 3 times daily. Status: Acute Qualifiers: Hypertension type: unspecified Qualified Code(s): I10 - Essential (primary) hypertension Additional A&P Information History of hematuria. Followed by urology Full code Heparin for DVT prophylaxis Attestations Medical Necessity Statement*: Needs continued hospitalization secondary to hypertensive urgency requiring nitroglycerin drip. Coding Level of Care Code Acute Publications Inspector for Chg Fwd Diagnoses Chest discomfort R07.89 Elevated troponin R77.8 ESRD (end stage renal disease) N18.6 Hypertension I10 Hypertension type: unspecified
--- NOTE | 2021-03-20 09:53 | PC.NURSE ---
nitro titrated to 25mcg/min
--- NOTE | 2021-03-20 10:07 | PC.NURSE ---
nitro off at 1007
--- NOTE | 2021-03-20 10:09 | PC.CHAP ---
Pastoral Care Encounter/Spiritual Assessment Type of Contact [] Declined livestock speculator visit [] Patient/Family/Request visit [] Outpatient visit [] Follow-up visit [] Physician referral [] Code/Alert [x] Routine visit [] Staff referral [] Actively dying [] Patient sleeping [] Family support [] [] Out of room [] Palliative care [] [] Receiving care in room [] Pre-surgical visit [] Trauma [] Long length of stay [x] ICU visit [] Other: Relational/Emotional Strength [] Patient feels connected with others/family/visitors/staff [] Distress [] Loneliness/isolation [] Abandonment Spirituality of Patient [] Person of Nora [] Attends Scientology of their Nora [] Believes in Prayer [] Reads Bible or Mosque materials [] There are Spiritual issues to be addressed Shade Classifier Interventions [x] Prayer [x] Active listening [x] Non-anxious presence [x] Spiritual/emotional support [] Crisis/trauma care [] Spiritual counseling [] Bereavement support [] Provided bereavement packet [] Provided Bible/devotional materials [] Provided toy/stuffed animal, coloring book to patient or family member [] Provided Communion [] Anointing/[place] [] Salvation [] Completed spiritual assessment [] Other: Impact on Illness or Injury [] Angry [] Fearful [] Anxious [] Often cries [] Exhaustion [] Unable to work [] Unable to attend episcopal [] Unable to walk/stand [] Unable to read [] Unable to drive [] Unable to eat/drink [] Unable to sleep [] Unable to be with family [] Patient intubated [] Other: Summary patient doing so much better today.. stronger.. Time spent with patient 5 min
--- NOTE | 2021-03-20 12:47 | P.PN_ITS ---
Subjective Subjective: Interval history: Patient is feeling better. Denies chest pain. His nitro drip is being titrated down. Blood pressure is better controlled than before. Vitals/I&O/Wt Last Vital Signs Temp 98.1 F 03/20/21 12:00 Pulse 66 03/20/21 12:00 Resp 17 03/20/21 12:00 BP 126/73 03/20/21 12:00 Pulse Ox 95 03/20/21 12:00 03/19/21 03/20/21 03/20/21 22:59 06:59 14:59 Intake Total 618.375 / 1455.350 86.275 / 1541.625 24.225 / 24.225 Output Total 0 / 2300 0 / 2300 Balance 618.375 / -844.650 86.275 / -758.375 24.225 / 24.225 Weight last 48 hrs Weight 182 lb 14.4 oz Weight 186 lb 11.704 oz Weight 185 lb Physical Exam Narrative: EXAM NARRATIVE: General: Alert and oriented x 3 Neck Supple Cardiovascular: Regular rate and rhythm Lungs: clear to auscultation Abdomen is soft. Extremities no significant edema Data : 03/20/21 04:50 03/20/21 04:50 A&P Assessment and plan (1) Elevated troponin: Status: Acute (2) Chest discomfort: Status: Acute (3) Hypertension: Status: Acute Qualifiers: Hypertension type: unspecified Qualified Code(s): I10 - Essential (primary) hypertension (4) Hypertensive urgency: Status: Acute Patient has presenteed with hypertensive urgency and atypical chest discomfort likely secondary to high blood pressure. Troponin elevation likely secondary to demand ischemia in the setting of hypertensive urgency and ESRD. I have recommended ischemic work up however he does not want to have cath or stress test. Only wants medical therapy ECHO showed normal LV systolic function with grade 2 diastolic dysfunction Aspirin and statin therapy Continue dialysis. Wean down nitro drip. Blood pressure is better controlled. Currently on hydralazine 100 mg 3 times daily. We will uptitrate Coreg to 12.5 mg twice daily. Once nitro drip is off, he can be transferred out of the ICU today. Thank you for involving us with care of this patient. We josé miguel conitnue to follow. Please call with questions Attestations Medical Necessity Statement*: Care expected to cross 2 midnights. Coding Level of Care Code Acute Work Environment Safety Inspector for Chg Fwd Diagnoses Elevated troponin R77.8 Chest discomfort R07.89 Hypertension I10 Hypertension type: unspecified Hypertensive urgency I16.0
--- NOTE | 2021-03-20 14:04 | PC.SOCIAL ---
IMM update IMM updated with patient. Verbalized an understanding. Copy Pg 2 provided. Initialled, dated, timed, and placed in chart.
[2021-03-20 14:57] LABS: Vit D 1,25 (Oh)2, Total 21 pg/mL (18-72); Vit D2 1,25 (Oh)2 <8 pg/mL; Vit D3 1,25 (Oh)2 21 pg/mL
[2021-03-20] MEDS: carvedilol 12.5 mg Tablet PO (17:00)
--- NOTE | 2021-03-20 17:56 | PC.NURSE ---
Shift Note Frequent safety and comfort rounds continue. Orders and/or nursing care completed as indicated. Patient monitored for response to intervention and treatment(s). Education provided includes treatment plan, medication regimen and dialysis. Pt verbalizes understanding. Pt anuric. Orders to move to [facility], awaiting bed. Denies any needs. Will continue to monitor.
[2021-03-21] VITALS (20 sets, daily range): BP systolic 137–190; BP diastolic 70–95; PULSE 63–84; RESP 7–26; TEMP 36.4–36.9; O2SAT 90–96
[2021-03-21] MEDS: heparin 5,000 unit/mL INJ 1 mL 5000 UNIT SUBCUT (04:53)
[2021-03-21 05:19] LABS: Basophils % 0.5 %; Eosinophils # 0.1 10^3/uL (0.0-0.8); Eosinophils % 1.5 %; Hematocrit 32.3 % (42.0-52.0); Hemoglobin 10.3 g/dL (11.7-16.6); Lymphocytes # 1.8 10^3/uL (0.8-4.8); Mean Corpuscular HGB Conc 31.9 g/dL (30.0-36.0); Mean Corpuscular Hemoglobin 31.3 pg (28.0-34.0); Mean Corpuscular Volume 98.2 fl (80-94); Mean Platelet Volume 10.3 fL (7.4-10.4); Monocytes # 0.6 10^3/uL (0.2-0.9); Monocytes % 7.5 %; Neutrophils % 67.2 %; Nucleated Red Blood Cells % 0 %; Platelet Count 236 10^3/cmm (130-400); Red Blood Count 3.29 10^6/uL (4.1-5.3); Red Cell Distribution Width 15.2 % (12.1-15.1); White Blood Count 7.9 10^3/uL (4.0-10.0)
[2021-03-21 05:40] LABS: Alanine Aminotransferase 6 U/L (0-41); Alkaline Phosphatase 74 IU/L (40-130); Aspartate Amino Transferase 11 U/L (0-40); Blood Urea Nitrogen 28 mg/dL (6-20); Calcium 9.4 mg/dL (8.5-10.5); Carbon Dioxide 28 mmol/L (22-29); Chloride 99 mmol/L (98-107); Globulin 2.5 g/dL (1.3-4.6); Glomerular Filtration Rate 7.8 mL/min (90-130); Glucose 75 mg/dL (65-115); Magnesium 2.1 mg/dL (1.7-2.3); Osmolality Calculated 290 mOsm/kg (285-295); Phosphorus 4.6 mg/dL (2.5-4.5); Sodium 138 mmol/L (136-145); Total Bilirubin 0.2 mg/dL (0.15-1.2); Total Protein 5.5 g/dL (6.6-8.7)
--- NOTE | 2021-03-21 06:38 | PC.HD ---
Patient has orders to go to [facility] and is just waiting for a bed; therefore, he was brought to the dialysis room for treatment.
--- NOTE | 2021-03-21 06:41 | PC.NURSE ---
Patient in Dialysis 0600
--- NOTE | 2021-03-21 07:22 | P.PN_ITS ---
Subjective Subjective: Interval history: Patient is overall doing well. Denies any chest pain. Vitals/I&O/Wt Last Vital Signs Temp 97.7 F 03/21/21 06:36 Pulse 63 03/21/21 06:36 Resp 16 03/21/21 06:36 BP 160/83 03/21/21 06:36 Pulse Ox 90 03/21/21 06:00 03/20/21 03/21/21 03/21/21 22:59 06:59 14:59 Intake Total 120 / 144.225 Output Total 0 / 0 Balance 120 / 144.225 0 / 144.225 Weight last 48 hrs Weight 186 lb Weight 182 lb 14.4 oz Weight 186 lb 11.704 oz Physical Exam Narrative: EXAM NARRATIVE: General: Alert and oriented x 3 Neck Supple Cardiovascular: Regular rate and rhythm Lungs: clear to auscultation Abdomen is soft. Extremities no significant edema Data : 03/21/21 04:47 03/21/21 04:47 A&P Assessment and plan (1) Elevated troponin: Status: Resolved (2) Chest discomfort: Status: Resolved (3) Hypertension: Status: Acute (4) Hypertensive urgency: Status: Resolved Patient has presenteed with hypertensive urgency and atypical chest discomfort likely secondary to high blood pressure. Troponin elevation likely secondary to demand ischemia in the setting of hypertensive urgency and ESRD. I have recommended ischemic work up however he does not want to have cath or stress test. Only wants medical therapy ECHO showed normal LV systolic function with grade 2 diastolic dysfunction Aspirin and statin therapy Continue dialysis. Patient is off nitro drip now. Blood pressure is well controlled. Continue hydralazine 100 mg 3 times daily, losartan, amlodipine and Coreg. Patient is stable to be discharged from cardiology standpoint. Thank you for involving us with care of this patient. Please call with questions. Attestations Medical Necessity Statement*: Care expected to cross 2 midnights. Coding Level of Care Code Acute Electronic Sales And Service Technician for Eric Sandhu Diagnoses Elevated troponin R77.8 Chest discomfort R07.89 Hypertension I10 Hypertensive urgency I16.0
--- NOTE | 2021-03-21 07:57 | PM.PN ---
Subjective Subjective: Interval history: seen via telehealth during HD No complaints - reports he is ready for discharge Medications: Reviewed: Yes Vitals/I&O/Wt Last Vital Signs Temp 97.7 F 03/21/21 06:36 Pulse 63 03/21/21 06:36 Resp 16 03/21/21 06:36 BP 160/83 03/21/21 06:36 Pulse Ox 90 03/21/21 06:00 03/20/21 03/21/21 03/21/21 22:59 06:59 14:59 Intake Total 120 / 144.225 Output Total 0 / 0 Balance 120 / 144.225 0 / 144.225 Weight last 48 hrs Weight 84.368 kg Weight 82.962 kg Weight 84.7 kg Physical Exam Const: COMMON NORMALS: no acute distress Extremity: NARRATIVE EXTREMITY EXAM: left forearm AVF no signs of infection per RN Data : 03/21/21 04:47 03/21/21 04:47 A&P Additional A&P Information Impression: 1. ESRD, HD MWF 2. Hypertension urgency, BP improved 3. Anemia, managed at HD with iron and epogen Rec: disposition per primary service Attestations Medical Necessity Statement*: per primary service Time Spent in Patient Care: 16 - 35 minutes Coding Level of Care Code Acute Assignment Desk Assistant for Eric Sandhu
--- NOTE | 2021-03-21 08:49 | P.DS_ITS ---
Discharge Providers Date of Admission: 03/17/21 17:07 Date of Discharge: March 21, 2021 Attending Provider at Admission: James Sena MD Attending Provider at Discharge: James Sena MD Diagnoses at Discharge Discharge Diagnosis (1) Elevated troponin: Status: Acute (2) Chest discomfort: Status: Acute (3) Hypertension: Status: Acute (4) Hypertensive urgency: Status: Acute Reason for Visit Reason for Visit: high bp 210/107 Hospital Course Hospital Course Navneet is a 55-year-old white male who presented to the hospital with elevated blood pressure and chest discomfort. Troponin was elevated and 2-hour delta about 20. Nephrology was consulted secondary to his end-stage renal disease on hemodialysis and cardiology consulted secondary to his elevated troponin. Echocardiogram was performed demonstrating a preserved EF, grade 2/6 diastolic dysfunction. No wall motion abnormalities were noted. During the patient's hospitalization multiple medications were changed for hypertensive urgency. He initially required a nitroglycerin drip that was eventually weaned off by the end of his hospital stay. I have visited with him regarding further cardiac work-up which he refused. He did not want to undergo nuclear stress testing or angiogram or any other procedure. Risks and benefits were discussed. By the end of the hospital course he was chest discomfort free, and blood pressure demonstrated fair control. He will discharge home with follow-up with his primary care provider in 3 to 5 days, cardiology 7 to 10 days, and keep his regular follow-ups with nephrology with for dialysis 3 times weekly. Physical Exam Narrative: EXAM NARRATIVE: General exam no distress Neck is supple Cardiovascular regular rate and rhythm Lungs clear Abdomen is soft Extremities no cyanosis clubbing or edema Discharge Data Data Completed and Pending: Completed Studies During Hospitalization Category Date Time Status XR chest 1V kat ble [id number] Stat Exams 03/17/21 06:29 Completed CV. echo complete * [id number] Routine Ultrasound 03/17/21 12:26 Completed Pending at discharge Category Date Time Status Complete Blood Co unt w/Auto AM LABS Lab 03/22/21 04:00 Ordered Complete Blood Co unt w/Auto AM LABS Lab 03/23/21 04:00 Ordered Comprehensive Met abolic Panel AM LA BS Lab 03/22/21 04:00 Ordered Comprehensive Met abolic Panel AM LA BS Lab 03/23/21 04:00 Ordered Magnesium AM LABS Lab 03/22/21 04:00 Ordered Magnesium AM LABS Lab 03/23/21 04:00 Ordered Phosphorus AM LAB S Lab 03/22/21 04:00 Ordered Phosphorus AM LAB S Lab 03/23/21 04:00 Ordered Urinalysis and Mi croscopic Stat Lab 03/17/21 13:52 Uncollected Labs from last 24 hours 03/21/21 03/21/21 03/17/21 04:47 04:47 12:50 WBC 7.9 RBC 3.29 L Hgb 10.3 L Hct 32.3 L MCV 98.2 H MCH 31.3 MCHC 31.9 RDW 15.2 H Plt Count 236 MPV 10.3 Neut % (Auto) 67.2 Lymph % (Auto) 23.0 [place] % (Auto) 7.5 Eos % (Auto) 1.5 Baso % (Auto) 0.5 Neut # (Auto) 5.30 Lymph # (Auto) 1.8 [place] # (Auto) 0.6 Eos # (Auto) 0.1 Baso # (Auto) 0.0 Nucleated RBC % (a uto) 0 Nucleated RBCs # 0.0 Sodium 138 Potassium 4.0 Chloride 99 Carbon Dioxide 28 Anion Gap 15.0 BUN 28 H Creatinine 7.3 H* GFR Calculation 7.8 L Glucose 75 Calculated Osmolal ity 290 Calcium 9.4 Phosphorus 4.6 H Magnesium 2.1 Total Bilirubin 0.2 AST 11 ALT 6 Alkaline Phosphata se 74 Total Protein 5.5 L Albumin 3.0 L Globulin 2.5 25-OH Vitamin D To nell 21 1,25 Dihydroxy Vit D2 <8 1,25 Dihydroxy Vit D3 21 Vitals: Last Vital Signs Temp 97.7 F 03/21/21 06:36 Pulse 63 03/21/21 06:36 Resp 16 03/21/21 06:36 BP 160/83 03/21/21 06:36 Pulse Ox 90 03/21/21 06:00 Discharge Plan Discharge Patient Disposition: Home Condition: Stable Prescriptions: New losartan 50 mg Tablet 100 mg PO DAILY Qty: 30 RF: 0 amlodipine 5 mg Tablet 10 mg PO DAILY Qty: 30 RF: 0 hydralazine 50 mg Tablet 100 mg PO TID Qty: 180 RF: 0 clonidine HCl 0.1 mg Tablet 0.1 mg PO TID Qty: 90 RF: 0 carvedilol 12.5 mg Tablet 12.5 mg PO BID Qty: 60 RF: 0 atorvastatin [Lipitor] 20 mg tablet 20 mg PO DAILY Qty: 30 RF: 0 Continued aspirin 325 mg Tablet 325 mg PO DAILY RF: 0 isosorbide mononitrate 60 mg tablet extended release 24 hr 60 mg PO DAILY RF: 0 alfuzosin 10 mg tablet extended release 24 hr 10 mg PO DAILY RF: 0 Fosrenol 1,000 mg powder in packet 3,000 mg PO QPM RF: 0 RenaPlex-D 800 mcg-12.5 mg -2,000 unit Tablet 1 tab PO DAILY RF: 0 allopurinol 100 mg Tablet 100 mg PO DAILY RF: 0 escitalopram oxalate [Lexapro] 20 mg Tablet 40 mg PO DAILY RF: 0 pantoprazole 40 mg tablet,delayed release (DR/EC) 40 mg PO DAILY RF: 0 finasteride 5 mg tablet 5 mg PO DAILY RF: 0 lidocaine-prilocaine 2.5-2.5 % cream See Rx Instructions .ROUTE .COMPLEX RF: 0 levothyroxine 25 mcg tablet 25 mcg PO DAILY RF: 0 Discontinued lisinopril 20 mg tablet 20 mg PO DAILY RF: 0 nifedipine 90 mg tablet extended release 24hr 90 mg PO DAILY RF: 0 clonidine 0.3 mg/24 hr patch weekly 0.3 mg transdermal Q7D RF: 0 metoprolol succinate 25 mg tablet extended release 24 hr 25 mg PO DAILY RF: 0 simvastatin 40 mg Tablet 40 mg PO DAILY RF: 0 clonidine HCl 0.1 mg tablet 0.2 mg PO BEDTIME RF: 0 minoxidil 2.5 mg tablet 5 mg PO BID RF: 0 Discharge Orders: Discharge Order (Routine); Ordered 03/21/21 Ordered By: James Sena Referrals: Haylee Segura FNP [Nurse Practitioner] - 7-10 days (Follow-up hypertensive urgency) Discharge Diet: Usual diet Discharge Activity: Increase activity as tolerated Patient Instructions: Opioid Safety Activity Restrictions/Additional Instructions: Resume renal dialysis diet Follow-up with nephrology Follow-up with cardiology, 1 week with Haylee Segura and primary care provider 3 to 5 days. Discharge Attestations Time Spent in Discharge Care*: greater than 30 min Quality Metrics Clinical Quality Measures During this hospital stay, did patient experience: None Coding Level of Care Code Acute Chg FW DC note Diagnoses Elevated troponin R77.8 Chest discomfort R07.89 Hypertension I10 Hypertensive urgency I16.0
--- NOTE | 2021-03-21 09:59 | PC.CHAP ---
Pastoral Care Encounter/Spiritual Assessment Type of Contact [] Declined cork tipper visit [] Patient/Family/Request visit [] Outpatient visit [] Follow-up visit [] Physician referral [] Code/Alert [x] Routine visit [] Staff referral [] Actively dying [] Patient sleeping [] Family support [] [x] Out of room [] Palliative care [] [] Receiving care in room [] Pre-surgical visit [] Trauma [] Long length of stay [x] ICU visit [x] Other: having dialysis Relational/Emotional Strength [] Patient feels connected with others/family/visitors/staff [] Distress [] Loneliness/isolation [] Abandonment Spirituality of Patient [] Person of [place] [] Attends Shinto of their [place] [] Believes in Prayer [] Reads Bible or Confucianist materials [] There are Spiritual issues to be addressed Food And Nutrition Services Supervisor Interventions [x] Prayer [] Active listening [] Non-anxious presence [] Spiritual/emotional support [] Crisis/trauma care [] Spiritual counseling [] Bereavement support [] Provided bereavement packet [] Provided Bible/devotional materials [] Provided toy/stuffed animal, coloring book to patient or family member [] Provided Communion [] Anointing/[place] [] Salvation [x] Completed spiritual assessment [] Other: Impact on Illness or Injury [] Angry [] Fearful [] Anxious [] Often cries [] Exhaustion [] Unable to work [] Unable to attend restoration [] Unable to walk/stand [] Unable to read [] Unable to drive [] Unable to eat/drink [] Unable to sleep [] Unable to be with family [] Patient intubated [] Other: Summary Time spent with patient
[2021-03-21] MEDS: cloNIDine 0.1 mg Tablet PO (10:30)
[2021-03-21] MEDS: alfuzosin 10 mg ER Tablet PO (10:30)
[2021-03-21] MEDS: finasteride 5 mg Tablet PO (10:31)
[2021-03-21] MEDS: losartan 50 mg Tablet 100 MG PO (10:31)
[2021-03-21] MEDS: atorvastatin 40 mg Tablet 20 MG PO (10:31)
[2021-03-21] MEDS: hyDRALAzine 50 mg Tablet 100 MG PO (10:31)
[2021-03-21] MEDS: amlodipine 5 mg Tablet 10 MG PO (10:32)
[2021-03-21] MEDS: isosorbide mononitrate ER 60 mg Tablet PO (10:32)
[2021-03-21] MEDS: escitalopram 10 mg Tablet 40 MG PO (10:32)
[2021-03-21] MEDS: paricalcitol 2 mcg/mL SDV 1 mL IV (10:33)
[2021-03-21] MEDS: allopurinol 100 mg Tablet PO (10:33)
[2021-03-21] MEDS: levothyroxine 25 mcg Tablet PO (10:33)
[2021-03-21] MEDS: carvedilol 12.5 mg Tablet PO (10:33)
[2021-03-21] MEDS: pantoprazole DR 40 mg Tablet PO (10:33)
[2021-03-21] MEDS: aspirin 325 mg Tablet PO (10:33)
--- NOTE | 2021-03-21 10:49 | PC.NURSE ---
1030 Pt returned from dialysis. AAOx4, VSS. BP elevated. AM meds given upon return. Makes all needs known. States that he has made a small amount of urine while in dialysis this AM. Discharge orders in. Awaiting delivery of medications. Will monitor.
--- NOTE | 2021-03-21 12:11 | PC.NURSE ---
1155 PIV removed. Pt instructions given for meds and follow up appointments, pt verbalizes understanding. Pt wheeled to private vehicle for dc.
--- NOTE | 2021-03-24 14:19 | PC.RESP ---
SMOKING CESSATION INFORMATION SENT TO PATIENT.
== END 2021-03-21 11:57 | disposition home or self-care (01) | DRG 682 ==
LOC: ER 12:42 → ICU 14:07
PROVIDERS: Internal Medicine Nephrology; Admitting Provider Internal Medicine; Emergency Provider Family Medicine; Visit Provider Internal Medicine
DX: I12.0 Hypertensive chronic kidney disease with stage 5 chronic kidney disease or end stage renal disease (principal); N18.6 End stage renal disease; Q61.3 Polycystic kidney, unspecified; I24.8 Other forms of acute ischemic heart disease; I16.0 Hypertensive urgency; Z99.2 Dependence on renal dialysis; D63.1 Anemia in chronic kidney disease; Z86.73 Personal history of transient ischemic attack (TIA), and cerebral infarction without residual deficits; K21.9 Gastro-esophageal reflux disease without esophagitis
CPT/HCPCS: 36415; 71045; 80053; 82306; 82310; 82550; 82652; 82728; 83540; 83550; 83735; 83970; 84100; 84443; 84484; 84550; 85025; 86706; 86803; 87340; 90935; 93005; 93306; 96365; 96366; 96372; 99291; J0360; J1644; J2501; J3490; Q3014

== ENCOUNTER 2021-05-30 09:13 | Outpatient (CLI) | payer MEDICARE, MEDICAID, SELFPAY ==
[2021-05-26 12:54] VITALS: BMI 29.0
[2021-05-30 09:44] VITALS: BP 154/93; PULSE 68; RESP 18; TEMP 36.1; O2SAT 96
--- NOTE | 2021-05-30 09:59 | US_ITS ---
WS: [id number] ULTRASOUND-GUIDED THERAPEUTIC PARACENTESIS Procedure, risks, and complications have been explained to the patient. Consent is obtained. Utilizing aseptic technique and 1% buffered lidocaine, a small dermatome was made through which a 5 F rench Yueh catheter was inserted. Approximately 2400 ml of clear peritoneal fluid was obtained witho ut difficulty. No complications encountered. US/US paracentesis abd w [id number] IMPRESSION: Uncomplicated paracentesis yielding 2400 ml of peritoneal fluid.
[2021-05-30 10:14] LABS: INR 0.91 (0.8-1.2)
[2021-05-30 11:10] VITALS: BP 148/85; PULSE 76; RESP 18; O2SAT 94
== END 2021-05-30 11:24 | disposition home or self-care (01) ==
PROVIDERS: Radiology Diagnostic Radiology; Visit Provider Internal Medicine Nephrology
PROC: (CPT 49082; principal; 2021-05-30 11:30)
DX: R18.8 Other ascites (principal)
CPT/HCPCS: 49083; 85610; 96365; P9047

== ENCOUNTER → 2021-06-19 11:44 | Day surgery (SDC) | payer MEDICARE, MEDICAID, SELFPAY ==
[2021-06-19 11:55] VITALS: BP 141/82; PULSE 59; RESP 16; TEMP 36.4; O2SAT 96; BMI 29.0
--- NOTE | 2021-06-19 12:17 | US_ITS ---
WS: [id number] ULTRASOUND-GUIDED PARACENTESIS CLINICAL INFORMATION: ascites COMPARISON: None. Procedure Informed consent: The risks, benefits, and alternatives of the procedure were discussed with the lisa ent. Verbal and written consent was obtained. Timeout: A timeout was performed to confirm the correct patient, procedure, and site. Preparation: A suitable skin site was identified. The patient was prepped and draped in usual sterile fashion. Lidocaine 1% was used for local anesthesia. Catheter: 4 [place]onian One-step Yueh catheter. Side: Left Lower quadrant. Fluid Volume: 6250 ml Color: Clear yellow DISPOSITION: Discarded safely. Complications: None. Patient disposition: Discharged from the department in stable condition. US/US paracentesis abd w [id number] IMPRESSION: Uncomplicated ultrasound-guided paracentesis. Removal of 6250 cc
== END ==
PROVIDERS: Radiology Neuroradiology; Visit Provider Internal Medicine Nephrology
PROC: (CPT 49082; principal; 2021-06-19 12:00)
DX: R18.8 Other ascites (principal)
CPT/HCPCS: 49083

== ENCOUNTER 2021-07-08 07:04 | Day surgery (SDC) | payer MEDICARE, MEDICAID, SELFPAY ==
[2021-07-04 11:05] VITALS: BMI 29.9
--- NOTE | 2021-07-08 07:20 | US_ITS ---
WS: [id number] ULTRASOUND-GUIDED DIAGNOSTIC PARACENTESIS Procedure, risks, and complications have been explained to the patient. Consent is obtained. Utilizing aseptic technique and 1% buffered lidocaine, a small dermatome was made through which a 5 F rench Yueh catheter was inserted. Approximately 4700 ml of clear peritoneal fluid was obtained with out difficulty. No complications encountered. US/US paracentesis abd w [id number] IMPRESSION: Uncomplicated paracentesis yielding 4700 ml of peritoneal fluid.
[2021-07-08 07:35] VITALS: BP 190/100; PULSE 71; RESP 18; TEMP 36.6; O2SAT 96
== END 2021-07-08 09:05 | disposition home or self-care (01) ==
LOC: GILAB 07:06
PROVIDERS: Radiology Diagnostic Radiology; Visit Provider Internal Medicine Nephrology
PROC: (CPT 49082; principal; 2021-07-08 08:00)
DX: R18.8 Other ascites (principal)
CPT/HCPCS: 49083; 96365; P9047

== ENCOUNTER 2021-07-22 11:08 | Day surgery (SDC) | payer MEDICARE, MEDICAID, SELFPAY ==
[2021-07-18 09:10] VITALS: BMI 29.0
--- NOTE | 2021-07-22 11:17 | US_ITS ---
WS: [id number] Abdominal ultrasound, limited. History: Evaluate for ascites. Comparison: None. All 4 quadrants are imaged by ultrasound to evaluate for ascites. There is a small amount of ascites throughout all 4 quadrants. At this time patient has elected not to proceed with paracentesis and to wait for more ascites before paracentesis. US/US abdomen lmt fluid [id number] IMPRESSION: Small amount of ascites throughout 4 quadrants. No paracentesis performed at th is time.
[2021-07-22 11:28] VITALS: BP 140/83; PULSE 57; RESP 20; TEMP 36.4; O2SAT 97
== END 2021-07-22 11:50 | disposition home or self-care (01) ==
PROVIDERS: Radiology Diagnostic Radiology; Visit Provider Internal Medicine Nephrology
DX: R18.8 Other ascites (principal)
CPT/HCPCS: 49083; 76705

== ENCOUNTER 2021-08-05 10:53 | Day surgery (SDC) | payer MEDICARE, MEDICAID, SELFPAY ==
[2021-08-05 11:02] VITALS: BP 125/78; PULSE 62; RESP 18; TEMP 36.6; O2SAT 94
--- NOTE | 2021-08-05 11:03 | US_ITS ---
WS: [id number] ULTRASOUND-GUIDED PARACENTESIS CLINICAL INFORMATION: ascites COMPARISON: None. Procedure Informed consent: The risks, benefits, and alternatives of the procedure were discussed with the lisa ent. Verbal and written consent was obtained. Timeout: A timeout was performed to confirm the correct patient, procedure, and site. Preparation: A suitable skin site was identified. The patient was prepped and draped in usual sterile fashion. Lidocaine 1% was used for local anesthesia. Catheter: 4 [place] One-step Yueh catheter. Side: LEFT Lower quadrant. Fluid Volume: 9150 ml Color: Clear yellow DISPOSITION: Discarded safely. Complications: None. Patient disposition: Discharged from the department in stable condition. US/US paracentesis abd w [id number] IMPRESSION: Uncomplicated ultrasound-guided paracentesis. Removal of 9150 cc
[2021-08-05 12:09] VITALS: BP 113/69; PULSE 67; RESP 18; O2SAT 97
== END 2021-08-05 12:17 | disposition home or self-care (01) ==
PROVIDERS: Radiology Neuroradiology; Visit Provider Internal Medicine Nephrology
PROC: (CPT 49082; principal; 2021-08-05 12:00)
DX: R18.8 Other ascites (principal)
CPT/HCPCS: 49083; 96365; P9047

== ENCOUNTER 2021-08-19 10:51 | Day surgery (SDC) | payer MEDICARE, MEDICAID, SELFPAY ==
--- NOTE | 2021-08-19 10:58 | US_ITS ---
WS: [id number] ULTRASOUND-GUIDED PARACENTESIS CLINICAL INFORMATION: ascities COMPARISON: None. Procedure Informed consent: The risks, benefits, and alternatives of the procedure were discussed with the lisa ent. Verbal and written consent was obtained. Timeout: A timeout was performed to confirm the correct patient, procedure, and site. Preparation: A suitable skin site was identified. The patient was prepped and draped in usual sterile fashion. Lidocaine 1% was used for local anesthesia. Catheter: 4 Kiswahili One-step Yueh catheter. Side: LEFT Lower quadrant. Fluid Volume: 9400 ml Color: Clear yellow DISPOSITION: Discarded safely. Complications: None. Patient disposition: Discharged from the department in stable condition. US/US paracentesis abd w [id number] IMPRESSION: Uncomplicated ultrasound-guided paracentesis. Removal of 9400 cc
[2021-08-19 11:01] VITALS: BP 145/87; PULSE 74; RESP 16; TEMP 36.6; O2SAT 95; BMI 31.4
== END 2021-09-30 15:16 | disposition home or self-care (01) ==
PROVIDERS: Radiology Neuroradiology; Visit Provider Internal Medicine Nephrology
PROC: (CPT 49082; principal; 2021-08-19 12:00)
DX: R18.8 Other ascites (principal)
CPT/HCPCS: 49083; 96365; P9047

== ENCOUNTER 2021-09-02 10:51 | Day surgery (SDC) | payer MEDICARE, MEDICAID, SELFPAY ==
[2021-08-29 13:18] VITALS: BMI 31.4
[2021-09-01 14:11] VITALS: BMI 31.4
[2021-09-02 11:00] VITALS: BP 107/62; PULSE 67; RESP 18; TEMP 37; O2SAT 96
--- NOTE | 2021-09-02 11:16 | US_ITS ---
WS: [id number] ULTRASOUND-GUIDED THERAPEUTIC PARACENTESIS Procedure, risks, and complications have been explained to the patient. Consent is obtained. Utilizing aseptic technique and 1% buffered lidocaine, a small dermatome was made through which a 5 F rench Yueh catheter was inserted. Approximately 3000 ml of clear peritoneal fluid was obtained witho ut difficulty. Catheter was pulled out accidentally by staff during the paracentesis. The Yueh cathet er was not reinserted. US/US paracentesis abd w [id number] IMPRESSION: Limited paracentesis yielding 3000 ml of peritoneal fluid.
== END 2021-09-02 12:56 | disposition home or self-care (01) ==
LOC: GILAB 10:51
PROVIDERS: Radiology Diagnostic Radiology; Visit Provider Internal Medicine Nephrology
PROC: (CPT 49082; principal; 2021-09-02 12:00)
DX: R18.8 Other ascites (principal)
CPT/HCPCS: 49083; P9047

== ENCOUNTER 2021-09-14 11:41 | Emergency (ER) | payer MEDICARE, MEDICAID, SELFPAY ==
[2021-09-14 12:09] VITALS: BP 149/87; PULSE 91; RESP 16; TEMP 36.9; O2SAT 96; BMI 29.0
--- NOTE | 2021-09-14 12:26 | ED_ITS ---
HPI - Extremity Problem General: Chief complaint: Extremity Injury, Lower Stated complaint: Extended abd Time Seen by Provider: 09/14/21 12:13 Source: patient Mode of arrival: ambulatory Limitations: no limitations History of Present Illness: This patient presents to emergency department because of bilateral lower extremity swelling. This has been a recurrent issue for him for some time. He apparently has chronic kidney disease on Wednesday hemodialysis. He also has unclear recurrent ascites either related to portal hypertension and/or possibly cirrhosis and according to the patient gets paracentesis on a once to twice a month regimen. He states he has had increasing swelling of his lower extremities as well as his abdomen and is here to see if he can get paracentesis today. He denies any fevers or chills, shortness of breath etc. He states he is not too ambulatory and spends much of his time sitting or laying. Denies any other constitutional complaints at this time. Associated symptoms: Deny chest pain, fever(s) or rash Review of Systems Const: Denies: fever(s), chills or body aches Eyes: Denies: change in vision ENMT: Denies: throat pain, odynophagia or change in hearing Card: Denies: chest pain, palpitations, irregular heart rhythm, syncope or pre-syncope Resp: Denies: dyspnea, productive cough or non-productive cough GI: Denies: abdominal pain, nausea, vomiting or change in bowel habits : Reports: other (He has no urinary output normally. He is on dialysis for chronic kidney di) Musc: Reports: extremity swelling; Denies: neck pain or back pain Skin/Breast: Denies: rash or pruritus Neuro: Denies: headache(s), numbness in extremities or weakness in extremities PFSH ED PFSH: Medical History Bilateral hydronephrosis Bradycardia Chronic anemia CVA (cerebral vascular accident) Dependence on peritoneal dialysis Dilated aortic root ESRD (end stage renal disease) GERD (gastroesophageal reflux disease) Hypertension Incomplete bladder emptying Polycystic kidney disease Right bundle branch block (RBBB) on electrocardiogram (ECG) Surgical History AV fistula History of colonoscopy 2019 at [facility] History of surgical procedure Peritoneal dialysis catheter placement by Dr. Kamara 2016 S/P hemodialysis catheter insertion (03/13/20) 23cm long exchanged right IJ Removed on 06/11/2020 Family History Mother Chronic kidney disease (CKD) Other Hypertension Denies family history of Diabetes Social History Smoking and tobacco status: current every day smoker cigarettes [ Other cigarette details: Half a pack per day for last 20-30 years] and smokeless tobacco Alcohol intake: never Household members: family Housing: House History of recent travel: No Physical Exam Narrative: EXAM NARRATIVE: The patient is alert and comfortable and appears to be in no acute distress. He talks in complete sentences without dyspnea. Const: COMMON NORMALS: no acute distress and patient oriented x3 GENERAL AP PEARANCE: cooperative and comfortable HENMT: COMMON NORMALS: normocephalic HEAD & SCALP: normocephalic NOSE: Abnormal mucous membranes and turbinates present Eye: COMMON NORMALS: Equal, round and reactive pupils present, EOMs intact bilaterally and no scleral icterus PUPIL: Yes Equal, round and reactive pupils present Neck/C-Spine: COMMON NORMALS: full ROM, no lymphadenopathy and no JVD Chest: COMMONS NORMALS: normal inspection of the chest Resp: COMMON NORMALS: normal respiratory effort, No use of accessory muscles and clear to auscultation bilaterally EFFORT & INSPECTION: Yes able to speak in complete sentences AUSCULTATION: clear to auscultation bilaterally Cardio: COMMON NORMALS: no JVD, regular rate, regular rhythm and Peripheral pulses 2+ throughout RATE: regular rate RHYTHM: regular rhythm HEART SOUNDS: Murmur heart sound present (3/6 left sternal border) PERIPHERAL PULSES: Peripheral pulses 2+ throughout GI: COMMON NORMALS: Soft to palpation INSPECTION: Yes abdominal distension and No GI erythema present AUSCULTATION: Yes normoactive bowel sounds PALPATION: Yes Soft to palpation, No Tenderness to palpation present (GI), No Guarding due to palpation present (GI) and No Rebound tenderness present OTHER: Abdomen is distended. He has no focal tenderness to palpation. He has shifting dullness and hyperresonance to percussion. : COMMON NORMALS: Yes no CVA tenderness BLADDER/KIDNEY EXAM: Yes no CVA tenderness Back/Pelvis: COMMON NORMALS: no CVA tenderness, thoracic and lumbar spine normal to inspection and no thoracic nor lumbar tenderness Extremity: COMMON NORMALS: full ROM and no calf tenderness NARRATIVE EXTREMITY EXAM: Patient has bilateral pretibial edema extending to the mid thigh. No erythema. Normal range of motion. No lymphangitis. Capillary refill is normal. GENERAL: Yes AV fistula (Left forearm with a venous hum) Neuro: COMMON NORMALS: patient oriented x3, moves all extremities, no focal motor deficits and no sensory deficits noted SPEECH: speech normal Psych: COMMON NORMALS: mental status grossly normal and cooperative Skin: COMMON NORMALS: no rashes or lesions noted and no jaundice GENERAL SKIN EXAM: no rashes or lesions noted Course Consultations: Consultation #1: Discussed with the attending hospitalist on-call Dr. Gilliam regarding admission for paracentesis. He states he does not have support to do that procedure today but they can do it tomorrow. Time: 12:32 Vital Signs: Vital signs: Vital Signs Temperature 98.5 F 09/14/21 12:09 Pulse Rate 91 09/14/21 12:09 Respiratory Rate 16 09/14/21 12:09 Blood Pressure 149/87 09/14/21 12:09 Pulse Oximetry 96 09/14/21 12:09 MDM - Extremity (Nontraumatic) Medical Decision Making Patient with history of chronic ascites on chronic kidney dialysis for CKD requesting elective paracentesis today. No evidence of fever or other findings to suggest spontaneous bacterial peritonitis. He is not dyspneic or has otherwise worrisome vital signs at this time. We are unable to meet that a request today but can do so tomorrow. I have discussed with the patient and he should return to the emergency department after he completes his dialysis run in the morning. At that time he can be admitted to observation status for elective paracentesis. He acknowledged limitations and recommendations and was comfortable to plan. Medical Records I reviewed the patient's medical records. Discharge Plan Discharge Patient Disposition: Home Clinical Impression: Ascites, ESRD (end stage renal disease) Condition: Stable Prescriptions: No Action aspirin 325 mg Tablet 325 mg PO DAILY 0RF alfuzosin [Uroxatral] 10 mg tablet extended release 24 hr 10 mg PO DAILY 0RF clonidine HCl 0.1 mg Tablet 0.1 mg PO TID Qty: 90 0RF carvedilol 12.5 mg Tablet 12.5 mg PO BID Qty: 60 0RF amlodipine 5 mg Tablet 10 mg PO DAILY Qty: 30 0RF atorvastatin [Lipitor] 20 mg tablet 20 mg PO DAILY Qty: 30 0RF RenaPlex-D 800 mcg-12.5 mg -2,000 unit Tablet 1 tab PO DAILY 0RF allopurinol 100 mg Tablet 100 mg PO DAILY 0RF escitalopram oxalate [Lexapro] 20 mg Tablet 40 mg PO DAILY 0RF pantoprazole 40 mg tablet,delayed release (DR/EC) 40 mg PO DAILY 0RF finasteride 5 mg tablet 5 mg PO DAILY 0RF levothyroxine 25 mcg tablet 25 mcg PO DAILY 0RF nifedipine [Adalat CC] 90 mg tablet extended release 90 mg PO DAILY 0RF lisinopril 20 mg tablet 20 mg PO DAILY 0RF Discharge Orders: Discharge ED (Routine); Ordered 09/14/21 Ordered By: Redd Lester Discharge Diet: Usual diet Discharge Activity: Resume usual activity Patient Instructions: Opioid Safety Activity Restrictions/Additional Instructions: Return to the emergency department tomorrow after you complete your dialysis run and you will be evaluated for elective paracentesis at that time. Should you develop fevers, pain, any other concerns prior to that time return to this or the nearest emergency department. Continue all your usual medications as previously prescribed. Coding Level of Care Code ED Rehab Director Occupational Therapist for Eric Sandhu
[2021-09-14 13:22] VITALS: BP 149/92; PULSE 89; RESP 14; O2SAT 95
[2021-09-14 13:23] VITALS: BP 149/92; PULSE 89; RESP 14; O2SAT 95
== END 2021-09-14 12:45 | disposition home or self-care (01) ==
PROVIDERS: Emergency Provider Emergency Medicine
DX: R18.8 Other ascites (principal); I12.0 Hypertensive chronic kidney disease with stage 5 chronic kidney disease or end stage renal disease; N18.6 End stage renal disease; F17.210 Nicotine dependence, cigarettes, uncomplicated; F17.220 Nicotine dependence, chewing tobacco, uncomplicated; Z99.2 Dependence on renal dialysis; Q61.3 Polycystic kidney, unspecified; Z79.82 Long term (current) use of aspirin
CPT/HCPCS: 99281

== ENCOUNTER 2021-09-16 11:20 | Day surgery (SDC) | payer MEDICARE, MEDICAID, SELFPAY ==
[2021-09-16 11:35] VITALS: BP 121/73; PULSE 62; RESP 18; TEMP 36.7; O2SAT 93
[2021-09-16 11:38] VITALS: BMI 29.8
--- NOTE | 2021-09-16 11:40 | US_ITS ---
WS: [email or web address] ULTRASOUND-GUIDED PARACENTESIS CLINICAL INFORMATION: ascities COMPARISON: None. Procedure Informed consent: The risks, benefits, and alternatives of the procedure were discussed with the lisa ent. Verbal and written consent was obtained. Timeout: A timeout was performed to confirm the correct patient, procedure, and site. Preparation: A suitable skin site was identified. The patient was prepped and draped in usual sterile fashion. Lidocaine 1% was used for local anesthesia. Catheter: 4 Polish One-step Yueh catheter. Side: LEFT Lower quadrant. Fluid Volume: 9000 ml Color: Clear yellow DISPOSITION: Discarded safely. Complications: None. Patient disposition: Discharged from the department in stable condition. US/US paracentesis abd w [id number] IMPRESSION: Uncomplicated ultrasound-guided paracentesis. Removal of 9000 cc ascites
[2021-09-16] MEDS: lidocaine 1% INJ 20 mL 7 ML INJECTION (13:29)
== END 2021-09-16 14:10 | disposition home or self-care (01) ==
LOC: GILAB 11:22
PROVIDERS: Radiology Neuroradiology; Visit Provider Internal Medicine Nephrology
PROC: (CPT 49082; principal; 2021-09-16 12:00)
DX: R18.8 Other ascites (principal)
CPT/HCPCS: 49083; P9047

== ENCOUNTER 2021-09-30 11:08 | Day surgery (SDC) | payer MEDICARE, MEDICAID, SELFPAY ==
--- NOTE | 2021-09-30 11:15 | US_ITS ---
WS: [email or web address] ULTRASOUND-GUIDED PARACENTESIS CLINICAL INFORMATION: ascites COMPARISON: None. Procedure Informed consent: The risks, benefits, and alternatives of the procedure were discussed with the lisa ent. Verbal and written consent was obtained. Timeout: A timeout was performed to confirm the correct patient, procedure, and site. Preparation: A suitable skin site was identified. The patient was prepped and draped in usual sterile fashion. Lidocaine 1% was used for local anesthesia. Catheter: 4 Portuguese One-step Yueh catheter. Side: LEFT Lower quadrant. Fluid Volume: 9000 ml Color: Clear yellow DISPOSITION: Discarded safely. Complications: None. Patient disposition: Discharged from the department in stable condition. US/US paracentesis abd w [id number] IMPRESSION: Uncomplicated ultrasound-guided paracentesis. Removal of 9000 cc ascites
[2021-09-30 11:21] VITALS: BP 100/61; PULSE 63; RESP 20; TEMP 36.5; O2SAT 96; BMI 31.6
[2021-09-30] MEDS: lidocaine 1% INJ 20 mL 8 ML INJECTION (12:13)
== END 2021-09-30 13:00 | disposition home or self-care (01) ==
LOC: GILAB 11:09
PROVIDERS: Visit Provider Internal Medicine Nephrology
PROC: (CPT 49082; principal; 2021-09-30 12:00)
DX: R18.8 Other ascites (principal)
CPT/HCPCS: 49083; P9047

== ENCOUNTER → 2021-10-14 10:41 | Day surgery (SDC) | payer MEDICARE, MEDICAID, SELFPAY ==
--- NOTE | 2021-10-14 10:54 | US_ITS ---
WS: [email or web address] ULTRASOUND-GUIDED PARACENTESIS CLINICAL INFORMATION: ascities COMPARISON: None. Procedure Informed consent: The risks, benefits, and alternatives of the procedure were discussed with the lisa ent. Verbal and written consent was obtained. Timeout: A timeout was performed to confirm the correct patient, procedure, and site. Preparation: A suitable skin site was identified. The patient was prepped and draped in usual sterile fashion. Lidocaine 1% was used for local anesthesia. Catheter: 4 Japanese One-step Yueh catheter. Side: LEFT Lower quadrant. Fluid Volume: 8650 ml Color: Clear yellow DISPOSITION: Discarded safely. Complications: None. Patient disposition: Discharged from the department in stable condition. US/US paracentesis abd w [id number] IMPRESSION: Uncomplicated ultrasound-guided paracentesis. Removal of 8650 cc
[2021-10-14 10:55] VITALS: BP 167/97; PULSE 108; RESP 18; TEMP 36.6; O2SAT 95; BMI 32.9
[2021-10-14] MEDS: lidocaine 1% INJ 20 mL XX (11:23)
== END ==
PROVIDERS: Radiology Neuroradiology; Visit Provider Internal Medicine Nephrology
PROC: (CPT 49082; principal; 2021-10-14 12:00)
DX: R18.8 Other ascites (principal)
CPT/HCPCS: 49083; 96365; P9047

== ENCOUNTER 2021-10-28 10:56 | Day surgery (SDC) | payer MEDICARE, MEDICAID, SELFPAY ==
[2021-10-24 10:10] VITALS: BMI 29.0
--- NOTE | 2021-10-28 11:06 | US_ITS ---
WS: [id number] ULTRASOUND-GUIDED THERAPEUTIC PARACENTESIS Procedure, risks, and complications have been explained to the patient. Consent is obtained. Utilizing aseptic technique and 1% buffered lidocaine, a small dermatome was made through which a 5 F rench Yueh catheter was inserted. Approximately 7900 ml of clear peritoneal fluid was obtained witho ut difficulty. No complications encountered. US/US paracentesis abd w [id number] IMPRESSION: Uncomplicated paracentesis yielding 7900 ml of peritoneal fluid.
[2021-10-28 11:16] VITALS: BP 118/72; PULSE 68; RESP 18; TEMP 37.1; O2SAT 95
== END 2021-10-28 13:13 | disposition home or self-care (01) ==
LOC: GILAB 10:57
PROVIDERS: Radiology Diagnostic Radiology; Visit Provider Internal Medicine Nephrology
PROC: (CPT 49082; principal; 2021-10-28 12:00)
DX: R18.8 Other ascites (principal)
CPT/HCPCS: 49083; P9047

== ENCOUNTER 2021-11-04 10:54 | Day surgery (SDC) | payer MEDICARE, MEDICAID, SELFPAY ==
[2021-10-31 12:30] VITALS: BMI 29.9
--- NOTE | 2021-11-04 11:03 | US_ITS ---
WS: [email or web address] ULTRASOUND-GUIDED PARACENTESIS CLINICAL INFORMATION: ascites COMPARISON: None. Procedure Informed consent: The risks, benefits, and alternatives of the procedure were discussed with the lisa ent. Verbal and written consent was obtained. Timeout: A timeout was performed to confirm the correct patient, procedure, and site. Preparation: A suitable skin site was identified. The patient was prepped and draped in usual sterile fashion. Lidocaine 1% was used for local anesthesia. Catheter: 4 Latvian One-step Yueh catheter. Side: LEFT Lower quadrant. Fluid Volume: 5400 ml Color: Clear yellow DISPOSITION: Discarded safely. Complications: None. Patient disposition: Discharged from the department in stable condition. US/US paracentesis abd w [id number] IMPRESSION: Uncomplicated ultrasound-guided paracentesis. Removal of 5400 cc
[2021-11-04 11:15] VITALS: BP 114/72; PULSE 64; RESP 18; TEMP 36.6; O2SAT 98
== END 2021-11-04 12:35 | disposition home or self-care (01) ==
LOC: GILAB 10:56
PROVIDERS: Radiology Neuroradiology; Visit Provider Internal Medicine Nephrology
PROC: (CPT 49082; principal; 2021-11-04 12:00)
DX: R18.8 Other ascites (principal)
CPT/HCPCS: 49083; 96365; P9047

== ENCOUNTER 2021-11-11 11:16 | Day surgery (SDC) | payer MEDICARE, MEDICAID, SELFPAY ==
--- NOTE | 2021-11-11 11:24 | US_ITS ---
WS: [email or web address] ULTRASOUND-GUIDED THERAPEUTIC PARACENTESIS Procedure, risks, and complications have been explained to the patient. Consent is obtained. Utilizing aseptic technique and 1% buffered lidocaine, a small dermatome was made through which a 5 F rench Yueh catheter was inserted. Approximately 2900 ml of clear peritoneal fluid was obtained witho ut difficulty. No complications encountered. US/US paracentesis abd w [id number] IMPRESSION: Uncomplicated paracentesis yielding 2900 ml of peritoneal fluid.
[2021-11-11 11:27] VITALS: BP 115/69; PULSE 66; RESP 18; TEMP 36.8; O2SAT 95
[2021-11-11] MEDS: lidocaine 1% INJ 20 mL 7.5 ML INJECTION (11:57)
[2021-11-11 12:45] VITALS: BP 120/70; PULSE 67; RESP 18; O2SAT 97
--- NOTE | 2021-11-11 12:49 | SUR.OPER ---
albumin Bag 1 RX#[id number] Lot #[id number] albumin Bag 2 Lot #[id number]
== END 2021-11-11 12:51 | disposition home or self-care (01) ==
PROVIDERS: Radiology Diagnostic Radiology; Visit Provider Internal Medicine Nephrology
PROC: (CPT 49082; principal; 2021-11-11 12:00)
DX: R18.8 Other ascites (principal)
CPT/HCPCS: 49083; P9047

== ENCOUNTER 2021-11-18 11:03 | Day surgery (SDC) | payer MEDICARE, MEDICAID, SELFPAY ==
--- NOTE | 2021-11-18 11:15 | US_ITS ---
WS: [email or web address] ULTRASOUND-GUIDED THERAPEUTIC PARACENTESIS Procedure, risks, and complications have been explained to the patient. Consent is obtained. Utilizing aseptic technique and 1% buffered lidocaine, a small dermatome was made through which a 5 F rench Yueh catheter was inserted. Approximately 6700 ml of clear peritoneal fluid was obtained witho ut difficulty. No complications encountered. US/US paracentesis abd w [id number] IMPRESSION: Uncomplicated paracentesis yielding 6700 ml of peritoneal fluid.
[2021-11-18 11:19] VITALS: BP 115/70; PULSE 65; RESP 18; TEMP 36.7; O2SAT 96
[2021-11-18 11:39] VITALS: BMI 29.0
[2021-11-18] MEDS: lidocaine 1% INJ 20 mL 7 ML INJECTION (12:07)
== END 2021-11-18 12:51 | disposition home or self-care (01) ==
LOC: GILAB 11:04
PROVIDERS: Radiology Diagnostic Radiology; Visit Provider Internal Medicine Nephrology
PROC: (CPT 49082; principal; 2021-11-18 12:00)
DX: R18.8 Other ascites (principal)
CPT/HCPCS: 49083; 96365; P9047

== ENCOUNTER → 2021-11-25 10:55 | Day surgery (SDC) | payer MEDICARE, MEDICAID, SELFPAY ==
--- NOTE | 2021-11-25 11:04 | US_ITS ---
WS: [email or web address] ULTRASOUND-GUIDED THERAPEUTIC PARACENTESIS Procedure, risks, and complications have been explained to the patient. Consent is obtained. Utilizing aseptic technique and 1% buffered lidocaine, a small dermatome was made through which a 5 F rench Yueh catheter was inserted. Approximately 5600 ml of clear peritoneal fluid was obtained witho ut difficulty. No complications encountered. US/US paracentesis abd w [id number] IMPRESSION: Uncomplicated paracentesis yielding 5600 ml of peritoneal fluid.
[2021-11-25 11:10] VITALS: BP 142/85; PULSE 62; RESP 18; TEMP 36.7; O2SAT 95; BMI 29.0
[2021-11-25] MEDS: lidocaine 1% INJ 20 mL SUBCUT (11:55)
== END ==
PROVIDERS: Radiology Diagnostic Radiology; Visit Provider Internal Medicine Nephrology
PROC: (CPT 49082; principal; 2021-11-25 12:00)
DX: R18.8 Other ascites (principal)
CPT/HCPCS: 49083; P9047

== ENCOUNTER 2021-12-02 10:56 | Day surgery (SDC) | payer MEDICARE, MEDICAID, SELFPAY ==
--- NOTE | 2021-12-02 11:22 | US_ITS ---
WS: [email or web address] ULTRASOUND-GUIDED PARACENTESIS CLINICAL INFORMATION: ascites COMPARISON: None. Procedure Informed consent: The risks, benefits, and alternatives of the procedure were discussed with the lisa ent. Verbal and written consent was obtained. Timeout: A timeout was performed to confirm the correct patient, procedure, and site. Preparation: A suitable skin site was identified. The patient was prepped and draped in usual sterile fashion. Lidocaine 1% was used for local anesthesia. Catheter: 4 Egyptian One-step Yueh catheter. Side: LEFT Lower quadrant. Fluid Volume: 4500 ml Color: Clear yellow DISPOSITION: Discarded safely. Complications: None. Patient disposition: Discharged from the department in stable condition. US/US paracentesis abd w [id number] IMPRESSION: Uncomplicated ultrasound-guided paracentesis. Removal of 4500 cc
[2021-12-02 11:26] VITALS: BP 125/72; PULSE 60; RESP 20; TEMP 36.3; O2SAT 98
[2021-12-02 11:27] VITALS: BMI 29.9
== END 2021-12-02 14:00 | disposition home or self-care (01) ==
LOC: GILAB 10:59
PROVIDERS: Radiology Neuroradiology; Visit Provider Internal Medicine Nephrology
PROC: (CPT 49082; principal; 2021-12-02 12:00)
DX: R18.8 Other ascites (principal)
CPT/HCPCS: 49083; P9047

== ENCOUNTER 2021-12-09 10:47 | Day surgery (SDC) | payer MEDICARE, MEDICAID, SELFPAY ==
[2021-12-05 12:50] VITALS: BMI 29.0
[2021-12-08 02:00] VITALS: BP 136/83; PULSE 74; RESP 17; TEMP 36.5; O2SAT 93; BMI 28.5
--- NOTE | 2021-12-09 11:34 | US_ITS ---
WS: [email or web address] Abdominal ultrasound, limited. History: Evaluate for ascites. Comparison: None. All 4 quadrants are imaged by ultrasound to evaluate for ascites. There is a small amount of ascites in all 4 quadrants. Insufficient to perform paracentesis. Patient has elected to wait another week be fore paracentesis. US/US abdomen lmt fluid [id number] IMPRESSION: Small amount of ascites. No paracentesis performed today.
[2021-12-09 11:38] VITALS: BP 136/83; PULSE 71; RESP 17; TEMP 36.5; O2SAT 93
--- NOTE | 2021-12-09 14:23 | PC.NURSE ---
Scanned and not enough fluid noted for thoracentesis per
== END 2021-12-09 12:00 | disposition home or self-care (01) ==
LOC: GILAB 10:49
PROVIDERS: Visit Provider Internal Medicine Nephrology
PROC: (CPT 49082; principal; 2021-12-09 12:00)
DX: R18.8 Other ascites (principal)
CPT/HCPCS: 76705

== ENCOUNTER 2021-12-16 11:19 | Day surgery (SDC) | payer MEDICARE, MEDICAID, SELFPAY ==
[2021-12-12 08:25] VITALS: BMI 29.0
[2021-12-16 11:36] VITALS: BP 155/87; PULSE 63; RESP 18; TEMP 36.9; O2SAT 95
--- NOTE | 2021-12-16 11:42 | US_ITS ---
WS: [email or web address] ULTRASOUND-GUIDED PARACENTESIS CLINICAL INFORMATION: ascities COMPARISON: None. Procedure Informed consent: The risks, benefits, and alternatives of the procedure were discussed with the lisa ent. Verbal and written consent was obtained. Timeout: A timeout was performed to confirm the correct patient, procedure, and site. Preparation: A suitable skin site was identified. The patient was prepped and draped in usual sterile fashion. Lidocaine 1% was used for local anesthesia. Catheter: 4 Syriac One-step Yueh catheter. Side: Left Lower quadrant. Fluid Volume: 6600 ml Color: Clear Yellow DISPOSITION: Discarded safely. Complications: None. Patient disposition: Discharged from the department in stable condition. US/US paracentesis abd w [id number] IMPRESSION: Uncomplicated ultrasound-guided paracentesis. Removal of 6600cc
== END 2021-12-16 13:19 | disposition home or self-care (01) ==
LOC: GILAB 11:19
PROVIDERS: Radiology Neuroradiology; Visit Provider Internal Medicine Nephrology
PROC: (CPT 49082; principal; 2021-12-16 12:00)
DX: R18.8 Other ascites (principal)
CPT/HCPCS: 49083; 96365; P9047

== ENCOUNTER 2021-12-23 12:19 | Day surgery (SDC) | payer MEDICARE, MEDICAID, SELFPAY ==
[2021-12-19 12:00] VITALS: BMI 28.2
[2021-12-23 12:35] VITALS: BP 194/101; PULSE 64; RESP 20; TEMP 36.3; O2SAT 92
--- NOTE | 2021-12-23 12:51 | US_ITS ---
WS: [email or web address] ULTRASOUND-GUIDED THERAPEUTIC PARACENTESIS Procedure, risks, and complications have been explained to the patient. Consent is obtained. Utilizing aseptic technique and 1% buffered lidocaine, a small dermatome was made through which a 5 F rench Yueh catheter was inserted. Approximately 4700 ml of clear peritoneal fluid was obtained witho ut difficulty. No complications encountered. US/US paracentesis abd w [id number] IMPRESSION: Uncomplicated paracentesis yielding 4700 ml of peritoneal fluid.
[2021-12-23] MEDS: lidocaine 1% INJ 20 mL 8 ML INJECTION (13:25)
== END 2021-12-23 14:01 | disposition home or self-care (01) ==
LOC: GILAB 12:21
PROVIDERS: Radiology Diagnostic Radiology; Visit Provider Internal Medicine Nephrology
PROC: (CPT 49082; principal; 2021-12-23 12:00)
DX: R18.8 Other ascites (principal)
CPT/HCPCS: 49083; P9047

== ENCOUNTER 2021-12-30 11:00 | Day surgery (SDC) | payer MEDICARE, MEDICAID, SELFPAY ==
[2021-12-29 11:47] VITALS: BMI 193.6
[2021-12-30 11:15] VITALS: BP 183/100; PULSE 85; RESP 18; TEMP 36.4; O2SAT 95
--- NOTE | 2021-12-30 11:18 | US_ITS ---
WS: [email or web address] ULTRASOUND-GUIDED PARACENTESIS CLINICAL INFORMATION: ascities COMPARISON: None. Procedure Informed consent: The risks, benefits, and alternatives of the procedure were discussed with the lisa ent. Verbal and written consent was obtained. Timeout: A timeout was performed to confirm the correct patient, procedure, and site. Preparation: A suitable skin site was identified. The patient was prepped and draped in usual sterile fashion. Lidocaine 1% was used for local anesthesia. Catheter: 4 Turkish One-step Yueh catheter. Side: LEFT Lower quadrant. Fluid Volume: 4250 ml Color: Clear yellow DISPOSITION: Discarded safely. Complications: None. Patient disposition: Discharged from the department in stable condition. US/US paracentesis abd w [id number] IMPRESSION: Uncomplicated ultrasound-guided paracentesis. Removal of 4250 cc
[2021-12-30] MEDS: lidocaine 1% INJ 20 mL 6 ML INJECTION (12:39)
== END 2021-12-30 13:24 | disposition home or self-care (01) ==
PROVIDERS: Radiology Neuroradiology; Visit Provider Internal Medicine Nephrology
PROC: (CPT 49082; principal; 2021-12-30 12:00)
DX: R18.8 Other ascites (principal)
CPT/HCPCS: 49083; P9047

== ENCOUNTER 2022-01-06 11:14 | Day surgery (SDC) | payer MEDICARE, MEDICAID, SELFPAY ==
--- NOTE | 2022-01-06 11:24 | US_ITS ---
WS: [email or web address] ULTRASOUND-GUIDED PARACENTESIS CLINICAL INFORMATION: ascites COMPARISON: None. Procedure Informed consent: The risks, benefits, and alternatives of the procedure were discussed with the lisa ent. Verbal and written consent was obtained. Timeout: A timeout was performed to confirm the correct patient, procedure, and site. Preparation: A suitable skin site was identified. The patient was prepped and draped in usual sterile fashion. Lidocaine 1% was used for local anesthesia. Catheter: 4 Filipino One-step Yueh catheter. Side: LEFT Lower quadrant. Fluid Volume: 3750 ml Color: Clear yellow DISPOSITION: Discarded safely. Complications: None. Patient disposition: Discharged from the department in stable condition. US/US paracentesis abd w [id number] IMPRESSION: Uncomplicated ultrasound-guided paracentesis. Removal of 3750 cc
[2022-01-06 11:40] VITALS: BP 132/78; PULSE 77; RESP 18; TEMP 36.2; O2SAT 97; BMI 28.2
[2022-01-06] MEDS: lidocaine 1% INJ 20 mL 6 ML INJECTION (11:55)
== END 2022-01-06 12:50 | disposition home or self-care (01) ==
LOC: GILAB 11:20
PROVIDERS: Visit Provider Internal Medicine Nephrology
PROC: (CPT 49082; principal; 2022-01-06 12:00)
DX: R18.8 Other ascites (principal)
CPT/HCPCS: 49083; P9047

== ENCOUNTER 2022-01-13 11:17 | Day surgery (SDC) | payer MEDICARE, MEDICAID, SELFPAY ==
[2022-01-12 08:15] VITALS: BMI 28.7
--- NOTE | 2022-01-13 11:35 | US_ITS ---
WS: [email or web address] Abdominal ultrasound, limited. History: Evaluate for ascites. Comparison: None. All 4 quadrants are imaged by ultrasound to evaluate for ascites. Only a small amount of ascites is n oted. Insufficient for paracentesis. US/US abdomen lmt fluid [id number] IMPRESSION: Insufficient ascites for paracentesis.
[2022-01-13 11:49] VITALS: BP 191/87; PULSE 62; RESP 18; TEMP 37.1; O2SAT 96
== END 2022-01-13 12:00 | disposition home or self-care (01) ==
PROVIDERS: Radiology Neuroradiology; Visit Provider Internal Medicine Nephrology
DX: R18.8 Other ascites (principal)
CPT/HCPCS: 76705

== ENCOUNTER 2022-01-20 10:56 | Day surgery (SDC) | payer MEDICARE, MEDICAID, SELFPAY ==
--- NOTE | 2022-01-20 11:01 | US_ITS ---
WS: [email or web address] ULTRASOUND-GUIDED PARACENTESIS CLINICAL INFORMATION: ascities COMPARISON: None. Procedure Informed consent: The risks, benefits, and alternatives of the procedure were discussed with the lisa ent. Verbal and written consent was obtained. Timeout: A timeout was performed to confirm the correct patient, procedure, and site. Preparation: A suitable skin site was identified. The patient was prepped and draped in usual sterile fashion. Lidocaine 1% was used for local anesthesia. Catheter: 4 Lithuanian One-step Yueh catheter. Side: LEFT Lower quadrant. Fluid Volume: 5800 ml Color: Clear yellow DISPOSITION: Discarded safely. Complications: None. Patient disposition: Discharged from the department in stable condition. US/US paracentesis abd w [id number] IMPRESSION: Uncomplicated ultrasound-guided paracentesis. Removal of 5800 cc
[2022-01-20 11:12] VITALS: BP 176/106; PULSE 79; RESP 20; TEMP 36.2; O2SAT 97
[2022-01-20 11:13] VITALS: BMI 29.0
== END 2022-01-20 12:49 | disposition home or self-care (01) ==
LOC: GILAB 10:57
PROVIDERS: Radiology Neuroradiology; Visit Provider Internal Medicine Nephrology
PROC: (CPT 49082; principal; 2022-01-20 12:00)
DX: R18.8 Other ascites (principal)
CPT/HCPCS: 49083; 96365; P9047

== ENCOUNTER 2022-01-27 10:52 | Day surgery (SDC) | payer MEDICARE, MEDICAID, SELFPAY ==
[2022-01-27 11:15] VITALS: BP 117/67; PULSE 75; RESP 118; TEMP 36.1; O2SAT 96
--- NOTE | 2022-01-27 11:15 | US_ITS ---
WS: [email or web address] ULTRASOUND-GUIDED THERAPEUTIC PARACENTESIS Procedure, risks, and complications have been explained to the patient. Consent is obtained. Utilizing aseptic technique and 1% buffered lidocaine, a small dermatome was made through which a 5 F rench Yueh catheter was inserted. Approximately 5300 ml of clear peritoneal fluid was obtained witho ut difficulty. No complications encountered. US/US paracentesis abd w [id number] IMPRESSION: Uncomplicated paracentesis yielding 5300 ml of peritoneal fluid.
--- NOTE | 2022-01-27 11:38 | SUR.OPER ---
7ml lidocaine used
== END 2022-01-27 12:30 | disposition home or self-care (01) ==
LOC: GILAB 10:56
PROVIDERS: Radiology Diagnostic Radiology; Visit Provider Internal Medicine Nephrology
PROC: (CPT 49082; principal; 2022-01-27 12:00)
DX: R18.8 Other ascites (principal)
CPT/HCPCS: 49083; 96365; P9047

== ENCOUNTER 2022-02-03 11:00 | Day surgery (SDC) | payer MEDICARE, MEDICAID, SELFPAY ==
[2022-02-03 11:34] VITALS: BP 104/58; PULSE 67; RESP 18; TEMP 36.6; O2SAT 96
--- NOTE | 2022-02-03 11:35 | US_ITS ---
WS: [email or web address] ULTRASOUND-GUIDED THERAPEUTIC PARACENTESIS Procedure, risks, and complications have been explained to the patient. Consent is obtained. Utilizing aseptic technique and 1% buffered lidocaine, a small dermatome was made through which a 5 F rench Yueh catheter was inserted. Approximately 6300 ml of clear peritoneal fluid was obtained witho ut difficulty. No complications encountered. US/US paracentesis abd w [id number] IMPRESSION: Uncomplicated paracentesis yielding 6300 ml of peritoneal fluid.
[2022-02-03 11:36] VITALS: BMI 30.2
== END 2022-02-03 13:15 | disposition home or self-care (01) ==
LOC: GILAB 11:00
PROVIDERS: Radiology Diagnostic Radiology; Visit Provider Internal Medicine Nephrology
PROC: (CPT 49082; principal; 2022-02-03 12:00)
DX: R18.8 Other ascites (principal)
CPT/HCPCS: 49083; 96365; P9047

== ENCOUNTER 2022-02-10 10:59 | Day surgery (SDC) | payer MEDICARE, MEDICAID, SELFPAY ==
[2022-02-06 13:44] VITALS: BMI 28.8
--- NOTE | 2022-02-10 11:10 | US_ITS ---
WS: [email or web address] ULTRASOUND-GUIDED THERAPEUTIC PARACENTESIS Procedure, risks, and complications have been explained to the patient. Consent is obtained. Utilizing aseptic technique and 1% buffered lidocaine, a small dermatome was made through which a 5 F rench Yueh catheter was inserted. Approximately 6500 ml of clear peritoneal fluid was obtained witho ut difficulty. No complications encountered. US/US paracentesis abd w [id number] IMPRESSION: Uncomplicated paracentesis yielding 6500 ml of peritoneal fluid.
[2022-02-10 11:13] VITALS: BP 169/105; PULSE 79; RESP 18; TEMP 36.7; O2SAT 97
== END 2022-02-10 12:32 | disposition home or self-care (01) ==
PROVIDERS: Radiology Diagnostic Radiology; Visit Provider Internal Medicine Nephrology
PROC: (CPT 49082; principal; 2022-02-10 12:00)
DX: R18.8 Other ascites (principal)
CPT/HCPCS: 49083; 96365; P9047

== ENCOUNTER 2022-02-17 11:26 | Day surgery (SDC) | payer MEDICARE, MEDICAID, SELFPAY ==
[2022-02-16 13:00] VITALS: BMI 29.8
--- NOTE | 2022-02-17 11:48 | US_ITS ---
WS: [email or web address] ULTRASOUND-GUIDED PARACENTESIS CLINICAL INFORMATION: ascites COMPARISON: None. Procedure Informed consent: The risks, benefits, and alternatives of the procedure were discussed with the lisa ent. Verbal and written consent was obtained. Timeout: A timeout was performed to confirm the correct patient, procedure, and site. Preparation: A suitable skin site was identified. The patient was prepped and draped in usual sterile fashion. Lidocaine 1% was used for local anesthesia. Catheter: 4 Tristanian One-step Yueh catheter. Side: LEFT Lower quadrant. Fluid Volume: 6750 ml Color: Clear yellow DISPOSITION: Discarded safely. Complications: None. Patient disposition: Discharged from the department in stable condition. US/US paracentesis abd w [id number] IMPRESSION: Uncomplicated ultrasound-guided paracentesis. Removal of 6750 cc
[2022-02-17 11:50] VITALS: BP 129/72; PULSE 66; RESP 18; TEMP 36.6; O2SAT 95
== END 2022-02-17 13:45 | disposition home or self-care (01) ==
LOC: GILAB 11:27
PROVIDERS: Radiology Neuroradiology; Visit Provider Internal Medicine Nephrology
PROC: (CPT 49082; principal; 2022-02-17 12:00)
DX: R18.8 Other ascites (principal)
CPT/HCPCS: 49083; 96360; P9047

== ENCOUNTER 2022-02-24 11:15 | Day surgery (SDC) | payer MEDICARE, MEDICAID, SELFPAY ==
[2022-02-20 13:53] VITALS: BMI 13.7
--- NOTE | 2022-02-24 11:29 | US_ITS ---
WS: [email or web address] ULTRASOUND-GUIDED THERAPEUTIC PARACENTESIS Procedure, risks, and complications have been explained to the patient. Consent is obtained. Utilizing aseptic technique and 1% buffered lidocaine, a small dermatome was made through which a 5 F rench Yueh catheter was inserted. Approximately 7600 ml of clear peritoneal fluid was obtained witho ut difficulty. No complications encountered. US/US paracentesis abd w [id number] IMPRESSION: Uncomplicated paracentesis yielding 7600 ml of peritoneal fluid.
[2022-02-24 11:30] VITALS: BP 157/101; PULSE 70; RESP 20; TEMP 36.1; O2SAT 96
== END 2022-02-24 13:00 | disposition home or self-care (01) ==
LOC: GILAB 11:17
PROVIDERS: Radiology Diagnostic Radiology; Visit Provider Internal Medicine Nephrology
PROC: (CPT 49082; principal; 2022-02-24 12:30)
DX: R18.8 Other ascites (principal)
CPT/HCPCS: 49083; 96365; P9047

== ENCOUNTER 2022-03-03 11:03 | Day surgery (SDC) | payer MEDICARE, MEDICAID, SELFPAY ==
[2022-03-02 08:39] VITALS: BMI 28.2
--- NOTE | 2022-03-03 11:16 | US_ITS ---
WS: [email or web address] ULTRASOUND-GUIDED PARACENTESIS CLINICAL INFORMATION: ascites COMPARISON: None. Procedure Informed consent: The risks, benefits, and alternatives of the procedure were discussed with the lisa ent. Verbal and written consent was obtained. Timeout: A timeout was performed to confirm the correct patient, procedure, and site. Preparation: A suitable skin site was identified. The patient was prepped and draped in usual sterile fashion. Lidocaine 1% was used for local anesthesia. Catheter: 4 Uzbek One-step Yueh catheter. Side: LEFT Lower quadrant. Fluid Volume: 6500 ml Color: Clear yellow DISPOSITION: Discarded safely. Complications: None. Patient disposition: Discharged from the department in stable condition. US/US paracentesis abd w [id number] IMPRESSION: Uncomplicated ultrasound-guided paracentesis. Removal of 6500 cc ascites
[2022-03-03 11:22] VITALS: BP 121/66; PULSE 71; RESP 18; TEMP 36.4; O2SAT 92
== END 2022-03-03 12:43 | disposition home or self-care (01) ==
LOC: GILAB 11:05
PROVIDERS: Visit Provider Internal Medicine Nephrology
PROC: (CPT 49082; principal; 2022-03-03 12:00)
DX: R18.8 Other ascites (principal)
CPT/HCPCS: 49083; P9046

== ENCOUNTER 2022-03-10 10:56 | Day surgery (SDC) | payer MEDICARE, MEDICAID, SELFPAY ==
[2022-03-09 12:39] VITALS: BMI 13.5
--- NOTE | 2022-03-10 11:06 | US_ITS ---
WS: [id number] ULTRASOUND-GUIDED THERAPEUTIC PARACENTESIS Procedure, risks, and complications have been explained to the patient. Consent is obtained. Utilizing aseptic technique and 1% buffered lidocaine, a small dermatome was made through which a 5 F rench Yueh catheter was inserted. Approximately 5000 ml of clear peritoneal fluid was obtained witho ut difficulty. No complications encountered. US/US paracentesis abd w [id number] IMPRESSION: Uncomplicated paracentesis yielding 5000 ml of peritoneal fluid.
[2022-03-10] MEDS: albumin 25 G/100 ML BAG 60 G IV (11:46)
== END 2022-03-10 12:36 | disposition home or self-care (01) ==
PROVIDERS: Radiology Diagnostic Radiology; Visit Provider Internal Medicine Nephrology
PROC: (CPT 49082; principal; 2022-03-10 12:00)
DX: R18.8 Other ascites (principal)
CPT/HCPCS: 49083; 96365; P9046

== ENCOUNTER 2022-03-17 11:06 | Day surgery (SDC) | payer MEDICARE, MEDICAID, SELFPAY ==
[2022-03-13 09:56] VITALS: BMI 29.0
--- NOTE | 2022-03-17 11:18 | US_ITS ---
WS: [email or web address] ULTRASOUND-GUIDED PARACENTESIS CLINICAL INFORMATION: ascites COMPARISON: None. Procedure Informed consent: The risks, benefits, and alternatives of the procedure were discussed with the lisa ent. Verbal and written consent was obtained. Timeout: A timeout was performed to confirm the correct patient, procedure, and site. Preparation: A suitable skin site was identified. The patient was prepped and draped in usual sterile fashion. Lidocaine 1% was used for local anesthesia. Catheter: 4 Citizen Of [place] One-step Yueh catheter. Side: LEFT Lower quadrant. Fluid Volume: 6700 ml Color: Clear yellow DISPOSITION: Discarded safely. Complications: None. Patient disposition: Discharged from the department in stable condition. US/US paracentesis abd w [id number] IMPRESSION: Uncomplicated ultrasound-guided paracentesis. Removal of 6700 cc
[2022-03-17 11:28] VITALS: BP 118/72; PULSE 78; RESP 18; TEMP 37.1; O2SAT 93
== END 2022-03-17 12:30 | disposition home or self-care (01) ==
PROVIDERS: Visit Provider Internal Medicine Nephrology
PROC: (CPT 49082; principal; 2022-03-17 12:00)
DX: R18.8 Other ascites (principal)
CPT/HCPCS: 49083; P9046

== ENCOUNTER 2022-03-24 10:50 | Day surgery (SDC) | payer MEDICARE, MEDICAID, SELFPAY ==
--- NOTE | 2022-03-24 10:56 | US_ITS ---
WS: [id number] ULTRASOUND-GUIDED THERAPEUTIC PARACENTESIS Procedure, risks, and complications have been explained to the patient. Consent is obtained. Utilizing aseptic technique and 1% buffered lidocaine, a small dermatome was made through which a 5 F rench Yueh catheter was inserted. Approximately 6000 ml of clear peritoneal fluid was obtained witho ut difficulty. No complications encountered. US/US paracentesis abd w [id number] IMPRESSION: Uncomplicated paracentesis yielding 6000 ml of peritoneal fluid.
== END 2022-03-24 12:30 | disposition home or self-care (01) ==
LOC: GILAB 10:51
PROVIDERS: Radiology Diagnostic Radiology; Visit Provider Internal Medicine Nephrology
PROC: (CPT 49082; principal; 2022-03-24 12:00)
DX: R18.8 Other ascites (principal)
CPT/HCPCS: 49083; 96365; P9047

== ENCOUNTER 2022-03-31 11:04 | Day surgery (SDC) | payer MEDICARE, MEDICAID, SELFPAY ==
[2022-03-30 10:32] VITALS: BMI 28.3
--- NOTE | 2022-03-31 11:21 | US_ITS ---
WS: [email or web address] ULTRASOUND-GUIDED PARACENTESIS CLINICAL INFORMATION: ascites COMPARISON: None. Procedure Informed consent: The risks, benefits, and alternatives of the procedure were discussed with the lisa ent. Verbal and written consent was obtained. Timeout: A timeout was performed to confirm the correct patient, procedure, and site. Preparation: A suitable skin site was identified. The patient was prepped and draped in usual sterile fashion. Lidocaine 1% was used for local anesthesia. Catheter: 4 Faroese One-step Yueh catheter. Side: LEFT Lower quadrant. Fluid Volume: 5300 ml Color: Clear yellow DISPOSITION: Discarded safely. Complications: None. Patient disposition: Discharged from the department in stable condition. US/US paracentesis abd w [id number] IMPRESSION: Uncomplicated ultrasound-guided paracentesis. Removal of 5300 cc
[2022-03-31 11:25] VITALS: BP 167/88; PULSE 75; RESP 18; TEMP 36.7; O2SAT 93
[2022-03-31] MEDS: lidocaine 1% INJ 20 mL MDV (mL) XX (11:44)
== END 2022-03-31 12:31 | disposition home or self-care (01) ==
LOC: GILAB 11:05
PROVIDERS: Visit Provider Internal Medicine Nephrology
PROC: (CPT 49082; principal; 2022-03-31 12:00)
DX: R18.8 Other ascites (principal)
CPT/HCPCS: 49083; 96365; P9047

== ENCOUNTER 2022-04-07 10:51 | Day surgery (SDC) | payer MEDICARE, MEDICAID, SELFPAY ==
[2022-04-03 10:56] VITALS: BMI 29.0
--- NOTE | 2022-04-07 11:10 | US_ITS ---
WS: [email or web address] ULTRASOUND-GUIDED THERAPEUTIC PARACENTESIS Procedure, risks, and complications have been explained to the patient. Consent is obtained. Utilizing aseptic technique and 1% buffered lidocaine, a small dermatome was made through which a 5 F rench Yueh catheter was inserted. Approximately 6300 ml of light red peritoneal fluid was obtained wi thout difficulty. No complications encountered. US/US paracentesis abd w [id number] IMPRESSION: Uncomplicated paracentesis yielding 6300 ml of peritoneal fluid.
[2022-04-07 11:17] VITALS: BP 153/87; PULSE 72; RESP 18; TEMP 36.3; O2SAT 94
== END 2022-04-07 12:31 | disposition home or self-care (01) ==
LOC: GILAB 10:51
PROVIDERS: Radiology Diagnostic Radiology; Visit Provider Internal Medicine Nephrology
PROC: (CPT 49082; principal; 2022-04-07 12:00)
DX: R18.8 Other ascites (principal)
CPT/HCPCS: 49083; 96365; P9046

== ENCOUNTER 2022-04-14 10:50 | Day surgery (SDC) | payer MEDICARE, MEDICAID, SELFPAY ==
[2022-04-10 12:15] VITALS: BMI 29.0
[2022-04-14 11:00] VITALS: BP 134/72; PULSE 75; RESP 18; TEMP 36.8; O2SAT 94
--- NOTE | 2022-04-14 11:04 | US_ITS ---
WS: [email or web address] ULTRASOUND-GUIDED PARACENTESIS CLINICAL INFORMATION: ascities COMPARISON: None. Procedure Informed consent: The risks, benefits, and alternatives of the procedure were discussed with the lisa ent. Verbal and written consent was obtained. Timeout: A timeout was performed to confirm the correct patient, procedure, and site. Preparation: A suitable skin site was identified. The patient was prepped and draped in usual sterile fashion. Lidocaine 1% was used for local anesthesia. Catheter: 4 Greenlandic One-step Yueh catheter. Side: LEFT Lower quadrant. Fluid Volume: 5350 ml Color: Clear yellow DISPOSITION: Discarded safely. Complications: None. Patient disposition: Discharged from the department in stable condition. US/US paracentesis abd w [id number] IMPRESSION: Uncomplicated ultrasound-guided paracentesis. Removal of 5350 cc
== END 2022-04-14 12:15 | disposition home or self-care (01) ==
LOC: GILAB 10:51
PROVIDERS: Radiology Neuroradiology; Visit Provider Internal Medicine Nephrology
PROC: (CPT 49082; principal; 2022-04-14 12:00)
DX: R18.8 Other ascites (principal)
CPT/HCPCS: 49083; 96365; P9046

== ENCOUNTER 2022-04-14 13:50 | Emergency (ER) | payer MEDICARE, MEDICAID, SELFPAY ==
[2022-04-14 13:53] VITALS: BP 177/87; PULSE 67; RESP 17; TEMP 36.8; O2SAT 100
--- NOTE | 2022-04-14 13:56 | CT_ITS ---
WS: [email or web address] CT ABDOMEN AND PELVIS WITH CONTRAST HISTORY: paracentesis today, now knot and severe pain LLQ TECHNIQUE: Imaging performed of the abdomen and pelvis with IV contrast. Single phase imaging of the abdomen. Coronal and sagittal reformats are submitted. All CT scans at [facility] use at [address] one of these dose optimization techniques: automated exposure control; mA and/or kV adjustment per patient size (includes targeted exams where dose is matched to clinical indication); or iterative re construction. IV CONTRAST: Omnipaque 350; 100 mL IV. Oral contrast: No. DLP: 765.51 mGy.cm COMPARISON: 07/13/2020 Lower thorax: Lung bases are clear. Mild enlargement. No hiatal hernia. Liver/biliary system: Small scattered hypodensities are probably cysts. Gallbladder: Normal. No gallstones or wall thickening. No pericholecystic fluid. Pancreas: Normal size pancreas and pancreatic duct. No adjacent inflammation. Spleen: Granulomatous. Adrenal glands: Not well visualized. Right kidney: Enlarged polycystic kidney. Some of these cysts are calcified. No obstruction. Left kidney: Enlarged polycystic kidney with some calcifications. Aorta: Mild atherosclerosis with no aneurysm. Lymphadenopathy: None. Free fluid: There is a small amount of remaining ascites. GI tract: No abnormality identified. Abdominal wall: Acute appearing LEFT lower abdominal wall suggests hematoma extends over length of 13 cm. Transverse measurement of 7.1 cm and anterior by 4.6 cm. Increased density from acute bleeding. Pelvis: Mild diffuse bladder wall thickening. Ascites. Bones: Unremarkable. CT/CT abdomen pelvis w con* [id number] IMPRESSION: 1. Acute moderate-sized LEFT lower quadrant abdominal wall hematoma measures 7 .1 x 4.6 cm and extends over length of 13 cm. 2. Patient has known extensive polycystic kidney disease. 3. Small amount of residual ascites.
--- NOTE | 2022-04-14 13:57 | US_ITS ---
WS: [email or web address] Limited abdomen ultrasound. HISTORY: Abdominal pain after paracentesis. Edema and thickening of the LEFT lower quadrant abdominal wall. There is a small amount of persistent ascites. Due to the change in appearance of the abdominal wall this is likely represents a hematoma. US/US abdomen limited [id number] IMPRESSION: Suspect development of a subcutaneous abdominal wall hematoma at the site of th e paracentesis puncture.
--- NOTE | 2022-04-14 13:59 | ED_ITS ---
HPI - Abdominal Pain General: Chief Complaint: Abdominal Pain Stated Complaint: Abd. Pain Time Seen by Provider: 04/14/22 13:52 History of Present Illness: 57-year-old male was driving home after a routine weekly paracentesis. He developed severe pain just above his left lower quadra nt paracentesis site. He can feel a knot in that area. He says it hurts to move or to lay back. It also hurts to touch this area. He does take aspirin and is an easy bleeder. No other associated symptoms. 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 Kamara 2015 S/P hemodialysis catheter insertion (03/13/20) 23cm long exchanged right IJ Removed on 06/11/2020 Family History Mother Chronic kidney disease (CKD) Other Hypertension Denies family history of Diabetes Social History Smoking and tobacco status: current every day smoker cigarettes [ Other cigarette details: Half a pack per day for last 20-30 years] and smokeless tobacco Alcohol intake: never Household members: family Housing: House History of recent travel: No Physical Exam Const: COMMON NORMALS: no limitations and alert; negative for healthy appearing (Patient has a classic appearance of a liver patient with some jaundice and ) EXAM LIMITATIONS: no altered mental status HENMT: COMMON NORMALS: normocephalic, atraumatic and external ears normal HEAD & SCALP: normocephalic and atraumatic EXTERNAL EAR: Yes external ears normal Eye: COMMON NORMALS: EOMs intact bilaterally and conjunctivae normal CONJUNCTIVA: Yes conjunctivae normal Neck/C-Spine: GENERAL: Yes normal visual inspection and Yes trachea midline Resp: COMMON NORMALS: clear to auscultation bilaterally EFFORT & INSPECTION : Yes tachypneic and No respiratory distress AUSCULTATION: clear to auscultation bilaterally GI: OTHER: Patient has a puncture donnie in the left lower quadrant. Cephalad to this by a few centimeters there is a tender knot. He does not allow much palpation here. It feels the not is about the size of a golf ball. He does not allow deep palpation in this area. Extremity: COMMON NORMALS: normal to inspection Neuro: COMMON NORMALS: moves all extremities, no focal motor deficits and no sensory deficits noted SENSORIUM/ORIENTATION: Yes alert Psych: COMMON NORMALS: mental status grossly normal, Normal thought process present, cooperative, normal affect and speech normal SPEECH: Yes normal speech THOUGHT PROCESS: Normal thought process present Skin: COMMON NORMALS: turgor normal GENERAL SKIN EXAM: turgor normal, jaundice (Mild jaundice is noticed) and other (Small puncture donnie in the left lower quadrant. Bleeding controlled. This) Course Vital Signs: Vital signs: Vital Signs Temperature 98.2 F 04/14/22 13:53 Pulse Rate 71 04/14/22 15:00 Respiratory Rate 22 H 04/14/22 14:14 Blood Pressure 138/72 04/14/22 15:00 Pulse Oximetry 99 04/14/22 15:00 Oxygen Delivery Me thod 04/14/22 15:00 MDM - Abdominal Pain Medical Decision Making Suspected abdominal wall hematoma. Possible perforation of an epigastric or abdominal wall circumflex vessel. Intraperitoneal injury must also be considered. US and CT have been ordered. Patient currently hemodynamically stable. UPDATE: CT has shown: 1.? Acute moderate-sized LEFT lower quadrant abdominal wall hematoma measures 7.1 x 4.6 cm and extends over length of 13 cm. 2.? Patient has known extensive polycystic kidney disease. 3.? Small amount of residual ascites. I consulted with Dr Fernandes who reports nothing specific to be done about this. The bleeding will tamponade in the cavity. It will remain painful and will ta ke several weeks to heal. The patient's hemoglobin is low at baseline. He has 9.6 today. He has lost about 400 cc of blood in that cavity. I consulted with the patient and offered to admit him to observation overnight for pain control and trending of his hemoglobin. However, the patient reports that he does not want to stay in the hospital. He does not want any further pain medication at this time. I will discharge him with some oxycodone to use in the event of severe pain. Lab Data 04/14/22 14:08 04/14/22 14:08 Labs/Radiology: Radiology Impressions Abdomen/Pelvis CT 04/14/22 13:56 IMPRESSION: 1. Acute moderate-sized LEFT lower quadrant abdominal wall hematoma measures 7.1 x 4.6 cm and extends over length of 13 cm. 2. Patient has known extensive polycystic kidney disease. 3. Small amount of residual ascites. Abdomen Ultrasound 04/14/22 13:57 IMPRESSION: Suspect development of a subcutaneous abdominal wall hematoma at the site of the paracentesis puncture. Laboratory Results WBC 8.5 10^3/uL (4.0-10.0) 04/14/22 14:08 RBC 2.99 10^6/uL (4.1-5.3) L 04/14/22 14:08 Hgb 9.6 g/dL (11.7-16.6) L 04/14/22 14:08 Hct 29.4 % (42.0-52.0) L 04/14/22 14:08 MCV 98.3 fl (80-94) H 04/14/22 14:08 MCH 32.1 pg (28.0-34.0) 04/14/22 14:08 MCHC 32.7 g/dL (30.0-36.0) 04/14/22 14:08 RDW 14.4 % (12.1-15.1) 04/14/22 14:08 Plt Count 252 10^3/cmm (130-400) 04/14/22 14:08 MPV 10.2 fL (7.4-10.4) 04/14/22 14:08 Neut % (Auto) 67.6 % 04/14/22 14:08 Lymph % (Auto) 21.7 % 04/14/22 14:08 [place] % (Auto) 9.0 % 04/14/22 14:08 Eos % (Auto) 0.9 % 04/14/22 14:08 Baso % (Auto) 0.4 % 04/14/22 14:08 Neut # (Auto) 5.72 10^3/uL (1.8-7.7) 04/14/22 14:08 Lymph # (Auto) 1.8 10^3/uL (0.8-4.8) 04/14/22 14:08 [place] # (Auto) 0.8 10^3/uL (0.2-0.9) 04/14/22 14:08 Eos # (Auto) 0.1 10^3/uL (0.0-0.8) 04/14/22 14:08 Baso # (Auto) 0.0 10^3/uL (0.0-0.1) 04/14/22 14:08 Nucleated RBC % (auto) 0 % 04/14/22 14:08 Nucleated RBCs # 0.0 /100WBC 04/14/22 14:08 PT 12.50 SECONDS (12.1-14.9) 04/14/22 14:08 INR 0.90 (0.8-1.2) 04/14/22 14:08 APTT 33.7 SECONDS (23.9-36.7) 04/14/22 14:08 Sodium 138 mmol/L (136-145) 04/14/22 14:08 Potassium 4.6 mmol/L (3.5-5.1) 04/14/22 14:08 Chloride 100 mmol/L (98-107) 04/14/22 14:08 Carbon Dioxide 26 mmol/L (22-29) 04/14/22 14:08 Anion Gap 16.6 (5-19) 04/14/22 14:08 BUN 39 mg/dL (6-20) H 04/14/22 14:08 Creatinine 5.6 mg/dL (0.7-1.2) H* 04/14/22 14:08 GFR Calculation 10.5 mL/min (90-130) L 04/14/22 14:08 Glucose 107 mg/dL (65-115) 04/14/22 14:08 Calculated Osmolality 296 mOsm/kg (285-295) H 04/14/22 14:08 Calcium 9.6 mg/dL (8.5-10.5) 04/14/22 14:08 Discharge Plan Discharge Patient Disposition: Home Clinical Impression: Hematoma of abdominal wall Condition: Stable Prescriptions: New oxycodone 5 mg tablet 5 mg PO Q6H PRN (Reason: pain) Qty: 20 0RF No Action aspirin 325 mg Tablet 325 mg PO DAILY carvedilol 12.5 mg Tablet 12.5 mg PO BID Qty: 60 0RF amlodipine 5 mg Tablet 10 mg PO DAILY Qty: 30 0RF atorvastatin [Lipitor] 20 mg tablet 20 mg PO DAILY Qty: 30 0RF RenaPlex-D 800 mcg-12.5 mg -2,000 unit Tablet 1 tab PO DAILY allopurinol 100 mg Tablet 100 mg PO DAILY escitalopram oxalate [Lexapro] 20 mg Tablet 40 mg PO DAILY pantoprazole 40 mg tablet,delayed release (DR/EC) 40 mg PO DAILY finasteride 5 mg tablet 5 mg PO DAILY levothyroxine 25 mcg tablet 25 mcg PO DAILY lisinopril 20 mg tablet 20 mg PO DAILY atorvastatin 20 mg tablet 20 mg PO DAILY minoxidil 2.5 mg tablet 5 mg PO BID nifedipine 90 mg tablet extended release 24hr 90 mg PO DAILY hydralazine 50 mg tablet 100 mg PO TID Fosrenol 1,000 mg powder in packet 2,000 mg PO TID cinacalcet 30 mg tablet 30 mg PO DAILY Discharge Orders: Discharge ED (Routine); Ordered 04/14/22 Ordered By: Berto Mesa Discharge Diet: Advance as tolerated Discharge Activity: Limit activity as instructed Patient Instructions: Anemia (ED), Hematoma (ED), Opioid Safety, Pain Management Activity Restrictions/Additional Instructions: Please read all discharge instructions and abide by recommendations and return precautions. Make an appointment to follow-up with your primary care doctor in 5-7 days for follow-up. Return to ER if getting worse or other emergent symptoms. 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
[2022-04-14 14:14] VITALS: RESP 22; O2SAT 98
[2022-04-14] MEDS: fentaNYL 50 mcg/mL INJ 2mL 75 MCG IVP (14:14)
[2022-04-14 14:19] LABS: Basophils % 0.4 %; Eosinophils # 0.1 10^3/uL (0.0-0.8); Eosinophils % 0.9 %; Hematocrit 29.4 % (42.0-52.0); Hemoglobin 9.6 g/dL (11.7-16.6); Lymphocytes # 1.8 10^3/uL (0.8-4.8); Lymphocytes % 21.7 %; Mean Corpuscular HGB Conc 32.7 g/dL (30.0-36.0); Mean Corpuscular Hemoglobin 32.1 pg (28.0-34.0); Mean Corpuscular Volume 98.3 fl (80-94); Mean Platelet Volume 10.2 fL (7.4-10.4); Monocytes # 0.8 10^3/uL (0.2-0.9); Neutrophils # 5.72 10^3/uL (1.8-7.7); Neutrophils % 67.6 %; Nucleated Red Blood Cells % 0 %; Platelet Count 252 10^3/cmm (130-400); Red Blood Count 2.99 10^6/uL (4.1-5.3); Red Cell Distribution Width 14.4 % (12.1-15.1); White Blood Count 8.5 10^3/uL (4.0-10.0)
[2022-04-14 14:20] VITALS: PULSE 69; O2SAT 98
[2022-04-14 14:30] VITALS: BP 148/69; PULSE 68; O2SAT 99
[2022-04-14 14:42] LABS: Anion Gap 16.6 (5-19); Blood Urea Nitrogen 39 mg/dL (6-20); Calcium 9.6 mg/dL (8.5-10.5); Carbon Dioxide 26 mmol/L (22-29); Chloride 100 mmol/L (98-107); Glomerular Filtration Rate 10.5 mL/min (90-130); Glucose 107 mg/dL (65-115); Osmolality Calculated 296 mOsm/kg (285-295); Potassium 4.6 mmol/L (3.5-5.1); Sodium 138 mmol/L (136-145)
[2022-04-14 14:50] LABS: Partial Thromboplastin Time 33.7 SECONDS (23.9-36.7)
[2022-04-14 15:00] VITALS: BP 138/72; PULSE 71; O2SAT 99
[2022-04-14] MEDS: iohexol 350 mg/mL 500 mL Btl (per mL) IV (15:25)
--- NOTE | 2022-04-15 12:50 | DCPLANNER ---
Addendum entered by Constance Penaloza 05/14/22 10:41: Patient had a follow up appointment with Dr. Torres to establish care - patient did attend appointment Original Note: process engineering manager had message to speak with patient about getting established with a primary care physician. Patient stated that he would like help in getting established with a primary care. process engineering manager called [facility], spoke with Ruba, gave clinic patients information. A follow up appointment was scheduled for Wednesday, April 20, 2022 at 1:[address] Bolaños. process engineering manager gave patient the appointment information.
== END 2022-04-14 17:06 | disposition home or self-care (01) ==
PROVIDERS: Emergency Provider Emergency Medicine
DX: S30.1XXA Contusion of abdominal wall, initial encounter (principal); Z79.82 Long term (current) use of aspirin; F17.210 Nicotine dependence, cigarettes, uncomplicated; Z86.73 Personal history of transient ischemic attack (TIA), and cerebral infarction without residual deficits; I12.0 Hypertensive chronic kidney disease with stage 5 chronic kidney disease or end stage renal disease; N18.6 End stage renal disease; X58.XXXA Exposure to other specified factors, initial encounter
CPT/HCPCS: 49083; 74177; 76705; 80048; 85025; 85610; 85730; 96365; 96374; 99285; J3010; P9046; Q9967

== ENCOUNTER 2022-04-21 10:38 | Day surgery (SDC) | payer MEDICARE, MEDICAID, SELFPAY ==
[2022-04-21 10:54] VITALS: BP 125/76; PULSE 68; RESP 18; TEMP 36.5; O2SAT 95
--- NOTE | 2022-04-21 10:57 | US_ITS ---
WS: [email or web address] ULTRASOUND-GUIDED THERAPEUTIC PARACENTESIS Procedure, risks, and complications have been explained to the patient. Consent is obtained. Utilizing aseptic technique and 1% buffered lidocaine, a small dermatome was made through which a 5 F rench Yueh catheter was inserted. Approximately 5000 ml of light pink peritoneal fluid was obtained w ithout difficulty. No complications encountered. US/US paracentesis abd w [id number] IMPRESSION: Uncomplicated paracentesis yielding 5000 ml of peritoneal fluid.
== END 2022-04-21 12:17 | disposition home or self-care (01) ==
LOC: GILAB 10:40
PROVIDERS: Radiology Diagnostic Radiology; PCP Family Medicine; Visit Provider Internal Medicine Nephrology
PROC: (CPT 49082; principal; 2022-04-21 12:00)
DX: R18.8 Other ascites (principal)
CPT/HCPCS: 49083; 96365; P9047

== ENCOUNTER 2022-04-28 10:54 | Day surgery (SDC) | payer MEDICARE, MEDICAID, SELFPAY ==
[2022-04-24 12:47] VITALS: BMI 29.5
[2022-04-28 11:10] VITALS: BP 183/105; PULSE 79; RESP 20; TEMP 36.4; O2SAT 97
--- NOTE | 2022-04-28 11:11 | US_ITS ---
WS: [email or web address] ULTRASOUND-GUIDED PARACENTESIS CLINICAL INFORMATION: ascites COMPARISON: None. Procedure Informed consent: The risks, benefits, and alternatives of the procedure were discussed with the lisa ent. Verbal and written consent was obtained. Timeout: A timeout was performed to confirm the correct patient, procedure, and site. Preparation: A suitable skin site was identified. The patient was prepped and draped in usual sterile fashion. Lidocaine 1% was used for local anesthesia. Catheter: 4 Israeli One-step Yueh catheter. Side: LEFT Lower quadrant. Fluid Volume: 4800ml Color: Clear yellow DISPOSITION: Discarded safely. Complications: None. Patient disposition: Discharged from the department in stable condition. US/US paracentesis abd w [id number] IMPRESSION: Uncomplicated ultrasound-guided paracentesis. Removal of 4800cc
== END 2022-04-28 13:32 | disposition home or self-care (01) ==
LOC: GILAB 10:55
PROVIDERS: Radiology Neuroradiology; PCP Family Medicine; Visit Provider Internal Medicine Nephrology
PROC: (CPT 49082; principal; 2022-04-28 12:00)
DX: R18.8 Other ascites (principal)
CPT/HCPCS: 49083; 96365; P9047

== ENCOUNTER → 2022-05-07 12:12 | Outpatient (BNVA) | payer MEDICARE, MEDICAID, SELFPAY | PROVIDERS: PCP Family Medicine; Visit Provider Family Medicine | DX: N18.6 End stage renal disease (principal); D64.9 Anemia, unspecified; I10 Essential (primary) hypertension; K21.9 Gastro-esophageal reflux disease without esophagitis; I77.810 Thoracic aortic ectasia; F17.200 Nicotine dependence, unspecified, uncomplicated; F32.9 Major depressive disorder, single episode, unspecified; F12.90 Cannabis use, unspecified, uncomplicated; Z71.6 Tobacco abuse counseling | CPT/HCPCS: 80053; 80061; 84443; 85025 ==

== ENCOUNTER 2022-05-12 10:25 | Day surgery (SDC) | payer MEDICARE, MEDICAID, SELFPAY ==
[2022-05-01 09:38] VITALS: BMI 29.0
--- NOTE | 2022-05-12 10:40 | US_ITS ---
WS: [email or web address] ULTRASOUND-GUIDED PARACENTESIS CLINICAL INFORMATION: ascities COMPARISON: None. Procedure Informed consent: The risks, benefits, and alternatives of the procedure were discussed with the lisa ent. Verbal and written consent was obtained. Timeout: A timeout was performed to confirm the correct patient, procedure, and site. Preparation: A suitable skin site was identified. The patient was prepped and draped in usual sterile fashion. Lidocaine 1% was used for local anesthesia. Catheter: 4 Turkish One-step Yueh catheter. Side: RIGHT Lower quadrant. Fluid Volume: 7000 ml Color: Clear yellow DISPOSITION: Discarded safely. Complications: None. Patient disposition: Discharged from the department in stable condition. US/US paracentesis abd w [id number] IMPRESSION: Uncomplicated ultrasound-guided paracentesis. Removal of 7000 cc
[2022-05-12 10:42] VITALS: BP 128/83; PULSE 69; RESP 18; TEMP 36.6; O2SAT 92
== END 2022-05-12 11:54 | disposition home or self-care (01) ==
LOC: GILAB 10:26
PROVIDERS: Radiology Neuroradiology; PCP Family Medicine; Visit Provider Internal Medicine Nephrology
PROC: (CPT 49082; principal; 2022-05-12 12:00)
DX: R18.8 Other ascites (principal)
CPT/HCPCS: 49083; 96365; P9046

== ENCOUNTER 2022-05-19 10:31 | Day surgery (SDC) | payer MEDICARE, MEDICAID, SELFPAY ==
[2022-05-14 08:12] VITALS: BMI 29.0
--- NOTE | 2022-05-19 10:37 | US_ITS ---
WS: [email or web address] ULTRASOUND-GUIDED THERAPEUTIC PARACENTESIS Procedure, risks, and complications have been explained to the patient. Consent is obtained. Utilizing aseptic technique and 1% buffered lidocaine, a small dermatome was made through which a 5 F rench Yueh catheter was inserted. Approximately 8700 ml of clear peritoneal fluid was obtained witho ut difficulty. No complications encountered. US/US paracentesis abd w [id number] IMPRESSION: Uncomplicated paracentesis yielding 8700 ml of peritoneal fluid.
[2022-05-19 10:41] VITALS: BP 212/115; PULSE 79; RESP 18; TEMP 36.3; O2SAT 97
== END 2022-05-19 12:09 | disposition home or self-care (01) ==
LOC: GILAB 10:32
PROVIDERS: Radiology Diagnostic Radiology; PCP Family Medicine; Visit Provider Internal Medicine Nephrology
PROC: (CPT 49082; principal; 2022-05-19 12:00)
DX: R18.8 Other ascites (principal)
CPT/HCPCS: 49083; 96365; P9047

== ENCOUNTER 2022-05-26 10:29 | Day surgery (SDC) | payer MEDICARE, MEDICAID, SELFPAY ==
[2022-05-26 10:41] VITALS: BP 191/109; PULSE 68; RESP 18; TEMP 36.8; O2SAT 96
--- NOTE | 2022-05-26 10:52 | US_ITS ---
WS: [email or web address] ULTRASOUND-GUIDED PARACENTESIS CLINICAL INFORMATION: ascities COMPARISON: None. Procedure Informed consent: The risks, benefits, and alternatives of the procedure were discussed with the lisa ent. Verbal and written consent was obtained. Timeout: A timeout was performed to confirm the correct patient, procedure, and site. Preparation: A suitable skin site was identified. The patient was prepped and draped in usual sterile fashion. Lidocaine 1% was used for local anesthesia. Catheter: 4 Pashto One-step Yueh catheter. Side: RIGHT Lower quadrant. Fluid Volume: 6200 ml Color: Clear yellow DISPOSITION: Discarded safely. Complications: None. Patient disposition: Discharged from the department in stable condition. US/US paracentesis abd w [id number] IMPRESSION: Uncomplicated ultrasound-guided paracentesis. Removal of 6200 cc
== END 2022-05-26 13:03 | disposition home or self-care (01) ==
LOC: GILAB 10:30
PROVIDERS: Radiology Neuroradiology; PCP Family Medicine; Visit Provider Internal Medicine Nephrology
PROC: (CPT 49082; principal; 2022-05-26 12:30)
DX: R18.8 Other ascites (principal)
CPT/HCPCS: 49083; 96365; P9047

== ENCOUNTER 2022-06-02 10:14 | Day surgery (SDC) | payer MEDICARE, MEDICAID, SELFPAY ==
[2022-06-02 10:26] VITALS: BP 156/95; PULSE 75; RESP 20; TEMP 36.6; O2SAT 97
--- NOTE | 2022-06-02 10:39 | US_ITS ---
WS: [email or web address] ULTRASOUND-GUIDED DIAGNOSTIC PARACENTESIS Procedure, risks, and complications have been explained to the patient. Consent is obtained. Utilizing aseptic technique and 1% buffered lidocaine, a small dermatome was made through which a 5 F rench Yueh catheter was inserted. Approximately 4300 ml of clear peritoneal fluid was obtained witho ut difficulty. No complications encountered. US/US paracentesis abd w [id number] IMPRESSION: Uncomplicated paracentesis yielding 4300 ml of peritoneal fluid.
[2022-06-02] MEDS: albumin 75 G/300 ML BAG 60 G IV (11:23)
[2022-06-02 11:50] VITALS: BP 140/88; PULSE 80; RESP 20; TEMP 36.8; O2SAT 94
[2022-06-02 12:15] VITALS: BP 172/102; PULSE 78; RESP 20; TEMP 36.7; O2SAT 96
== END 2022-06-02 12:21 | disposition home or self-care (01) ==
LOC: GILAB 10:16
PROVIDERS: Radiology Diagnostic Radiology; PCP Family Medicine; Visit Provider Internal Medicine Nephrology
PROC: (CPT 49082; principal; 2022-06-02 12:30)
DX: R18.8 Other ascites (principal)
CPT/HCPCS: 49083; 96365; P9046

== ENCOUNTER 2022-06-09 11:00 | Day surgery (SDC) | payer MEDICARE, MEDICAID, SELFPAY ==
[2022-06-09 11:25] VITALS: BP 175/100; PULSE 77; RESP 16; TEMP 36.7; O2SAT 98
--- NOTE | 2022-06-09 11:25 | US_ITS ---
WS: [email or web address] ULTRASOUND-GUIDED PARACENTESIS CLINICAL INFORMATION: ascites COMPARISON: None. Procedure Informed consent: The risks, benefits, and alternatives of the procedure were discussed with the lisa ent. Verbal and written consent was obtained. Timeout: A timeout was performed to confirm the correct patient, procedure, and site. Preparation: A suitable skin site was identified. The patient was prepped and draped in usual sterile fashion. Lidocaine 1% was used for local anesthesia. Catheter: 4 [place] Islander One-step Yueh catheter. Side: LEFT Lower quadrant. Fluid Volume: 6000 ml Color: Clear yellow DISPOSITION: Discarded safely. Complications: None. Patient disposition: Discharged from the department in stable condition. US/[place] paracentesis abd w [id number] IMPRESSION: Uncomplicated ultrasound-guided paracentesis. Removal 6000 cc ascites
[2022-06-09 11:27] VITALS: BMI 29.0
[2022-06-09 13:08] VITALS: BP 184/100; PULSE 84; RESP 14; O2SAT 97
== END 2022-06-09 13:18 | disposition home or self-care (01) ==
PROVIDERS: Radiology Neuroradiology; PCP Family Medicine; Visit Provider Internal Medicine Nephrology
PROC: (CPT 49082; principal; 2022-06-09 12:30)
DX: R18.8 Other ascites (principal)
CPT/HCPCS: 49083; 96365; P9046

== ENCOUNTER 2022-06-16 11:04 | Day surgery (SDC) | payer MEDICARE, MEDICAID, SELFPAY ==
[2022-06-16 11:15] VITALS: BP 137/85; PULSE 67; RESP 16; TEMP 36.2; O2SAT 95
--- NOTE | 2022-06-16 11:16 | US_ITS ---
WS: [email or web address] ULTRASOUND-GUIDED THERAPEUTIC PARACENTESIS Procedure, risks, and complications have been explained to the patient. Consent is obtained. Utilizing aseptic technique and 1% buffered lidocaine, a small dermatome was made through which a 5 F rench Yueh catheter was inserted. Approximately 6000 ml of clear peritoneal fluid was obtained witho ut difficulty. No complications encountered. US/US paracentesis abd w [id number] IMPRESSION: Uncomplicated paracentesis yielding 6000 ml of peritoneal fluid.
[2022-06-16 11:17] VITALS: BMI 29.0
[2022-06-16 11:18] VITALS: BMI 29.0
[2022-06-16] MEDS: albumin 75 G/300 ML BAG 30 G IV (11:48)
== END 2022-06-16 12:58 | disposition home or self-care (01) ==
LOC: GILAB 11:05
PROVIDERS: Radiology Diagnostic Radiology; PCP Family Medicine; Visit Provider Internal Medicine Nephrology
PROC: (CPT 49082; principal; 2022-06-16 12:30)
DX: R18.8 Other ascites (principal)
CPT/HCPCS: 49083; 96365; P9046

== ENCOUNTER 2022-06-22 13:24 | Observation (INO) | payer MEDICARE, MEDICAID, SELFPAY ==
[2022-06-22 13:29] VITALS: BP 108/59; PULSE 63; RESP 16; TEMP 36.6; O2SAT 98
--- NOTE | 2022-06-22 13:59 | XRR_ITS ---
PROCEDURE INFORMATION: Exam: XR Chest Exam date and time: 06/22/2022 2:08 PM Age: 57 years old Clinical indication: Other: Weakness TECHNIQUE: Imaging protocol: Radiologic exam of the chest. Views: 1 view. COMPARISON: CR XR chest 1V portable [id number] 03/17/2021 6:31 AM FINDINGS: Lungs: Unremarkable. No consolidation. Pleural spaces: Unremarkable. No pleural effusion. No pneumothorax. Heart/Mediastinum: Unremarkable. No cardiomegaly. Bones/joints: Unremarkable. XR/XR chest 1V portable [id number] IMPRESSION: No acute findings.
--- NOTE | 2022-06-22 14:16 | ED_ITS ---
Documented by User: MARIA GUADALUPE Rojas 06/22/22 16:51 HPI - Weakness General: Chief complaint: Weakness Stated complaint: feels sick Time Seen by Provider: 06/22/22 13:59 History of Present Illness: Patient is a 57-year-old male comes to the ED with generalized weakness. Past medical history of GERD, hypertension, end-stage renal disease, anemia and ascites. Patient goes to dialysis but skipped today because he was not feeling good. He states that for the past 3 days he has not been feeling well. He describes having shortness of breath, nasal drainage and congestion, generalized weakness/fatigue, malaise and decreased appetite. Denies any cough, fevers, sore throat, chest pain, abdominal pain, nausea/vomiting or any bladder or bowel symptoms. Denies any known sick contacts. Associated symptoms: Denies chest pain, chills, dysuria, fever(s), headache(s), nausea or vomiting Review of Systems Const: Reports: body aches, change in appetite (Decreased appetite), fatigue and malaise; Denies: fever(s) or chills Eyes: Denies: change in vision or eye discomfort ENMT: Reports: nasal discharge and nasal congestion; Denies: throat pain or odynophagia Card: Denies: chest pain, palpitations, edema, swelling of feet/ankles, dyspnea on exertion or orthopnea Resp: Reports: dyspnea; Denies: productive cough or non-productive cough GI: Denies: abdominal pain, nausea, vomiting, diarrhea, constipation or hematochezia : Denies: flank pain, difficulty urinating, dysuria or hematuria Musc: Denies: neck pain, back pain or extremity swelling Skin/Breast: Denies: rash or new lesions Neuro: Denies: headache(s), numbness in extremities or weakness in extremities PFS ED PFSH: Medical History Bilateral hydronephrosis Bradycardia Chronic anemia CVA (cerebral vascular accident) Dependence on peritoneal dialysis Dilated aortic root ESRD (end stage renal disease) GERD (gastroesophageal reflux disease) History of stroke Hypertension Hypothyroidism Incomplete bladder emptying Polycystic kidney disease Right bundle branch block (RBBB) on electrocardiogram (ECG) Surgical History AV fistula History of colonoscopy 2020 at [facility] History of surgical procedure Peritoneal dialysis catheter placement by Dr. Kamara 2015 S/P hemodialysis catheter insertion (03/13/20) 23cm long exchanged right IJ Removed on 06/11/2020 Family History Mother Chronic kidney disease (CKD) Stroke Father Cancer lung Brother Hypertension Denies family history of Diabetes CAD (coronary artery disease) Clotting disorder Dementia Hyperlipidemia Psychiatric illness Anesthesia complication Bleeding disorder Lung disease Social History Smoking and tobacco status: current every day smoker cigarettes [ Other ci garette details: Half a pack per day for last 20-30 years] and smokeless tobacco Alcohol intake: never Lives independently: Yes Household members: family Housing: House Marital status: Number of children: 1 Current occupational status: disabled History of recent travel: No Current gender identity: Male Agree to transfusion: Yes Physical Exam Const: COMMON NORMALS: patient oriented x3 and alert GENERAL APPEARANCE: cooperative and other (Patient appears sleepy) HENMT: COMMON NORMALS: normocephalic HEAD & SCALP: normocephalic MOUTH: Normal oral and palatal mucosa present THROAT: posterior oropharynx normal and uvula midline Neck/C-Spine: COMMON NORMALS: supple GENERAL: Yes normal visual inspection Resp: COMMON NORMALS: normal respiratory effort, No retractions, No use of accessory muscles and clear to auscultation bilaterally AUSCULTATION: clear to auscultation bilaterally Cardio: COMMON NORMALS: regular rate, regular rhythm, S1 normal heart sound present, S2 normal heart sound present, No gallops present (Cardio), No clicks present (Cardio), No murmurs present (Cardio) and Peripheral pulses 2+ throughout RATE: regular rate RHYTHM: regular rhythm HEART SOUNDS: S1 normal heart sound present and S2 normal heart sound present PERIPHERAL PULSES: Peripheral pulses 2+ throughout GI: COMMON NORMALS: Normal to inspection, nondistended, normoactive bowel sounds present, Soft to palpation, non-tender and no masses PALPATION: Yes Soft to palpation : COMMON NORMALS: Yes no CVA tenderness BLADDER/KIDNEY EXAM: Yes no CVA tenderness Back/Pelvis: COMMON NORMALS: no CVA tenderness Extremity: COMMON NORMALS: normal to inspection Neuro: COMMON NORMALS: patient oriented x3 SENSORIUM/ORIENTATION: Yes alert GAIT: Yes Normal gait present Skin: GENERAL SKIN EXAM: dry skin Course Vital Signs: Vital signs: Vital Signs Temperature 97.7 F 06/22/22 22:00 Pulse Rate 79 06/22/22 22:00 Respiratory Rate 16 06/22/22 22:00 Blood Pressure 131/80 06/22/22 22:00 Pulse Oximetry 97 06/22/22 17:42 Oxygen Delivery Me thod 06/22/22 23:22 MDM - Weakness Medical Decision Making Patient is a 57-year-old male comes to the ED with generalized weakness. He has a history of end-stage renal disease and is currently on dialysis. He has been having symptoms of generalized weakness, fatigue, nasal congestion and drainage, body aches and decreased appetite for the past 3 days. Denies any fevers, chest pain. Vitals are stable. Patient is sitting comfortably on exam bed while in the room. Does not appear in any acute distress. He does appear little sleepy but rest of exam is benign. Baseline troponin was 380 and his EKG showed no ST segment elevation or depression seen with a rate of 66 bpm. Chest x-ray showed no acute findings. Hemoglobin of 10.1. Potassium 5.6, BUN 89, creatinine 9.1. Influenza and COVID were both negative. I talked with Dr. Domingo about patient case and he agreed he will need to be admitted and dialysis will be done here at the hospital. I spoke with Dr. Medrano the hospitalist and told her about patient case. Patient will be admitted and dialysis will be performed here at the hospital. The analytical data miner was notified about patient as well. Lab Data I reviewed the patient's lab results. 06/22/22 14:10 06/22/22 14:10 Radiology Impressions Chest X-Ray 06/22/22 13:59 IMPRESSION: No acute findings. Laboratory Results WBC 10.0 10^3/uL (4.0-10.0) 06/22/22 14:10 RBC 3.25 10^6/uL (4.1-5.3) L 06/22/22 14:10 Hgb 10.1 g/dL (11.7-16.6) L 06/22/22 14:10 Hct 30.5 % (42.0-52.0) L 06/22/22 14:10 MCV 93.8 fl (80-94) 06/22/22 14:10 MCH 31.1 pg (28.0-34.0) 06/22/22 14:10 MCHC 33.1 g/dL (30.0-36.0) 06/22/22 14:10 RDW 13.3 % (12.1-15.1) 06/22/22 14:10 Plt Count 262 10^3/cmm (130-400) 06/22/22 14:10 MPV 10.5 fL (7.4-10.4) H 06/22/22 14:10 Neut % (Auto) 82.1 % 06/22/22 14:10 Lymph % (Auto) 8.3 % 06/22/22 14:10 [place] % (Auto) 7.9 % 06/22/22 14:10 Eos % (Auto) 1.0 % 06/22/22 14:10 Baso % (Auto) 0.2 % 06/22/22 14:10 Neut # (Auto) 8.18 10^3/uL (1.8-7.7) H 06/22/22 14:10 Lymph # (Auto) 0.8 10^3/uL (0.8-4.8) 06/22/22 14:10 [place] # (Auto) 0.8 10^3/uL (0.2-0.9) 06/22/22 14:10 Eos # (Auto) 0.1 10^3/uL (0.0-0.8) 06/22/22 14:10 Baso # (Auto) 0.0 10^3/uL (0.0-0.1) 06/22/22 14:10 Nucleated RBC % (auto) 0 % 06/22/22 14:10 Nucleated RBCs # 0.0 /100WBC 06/22/22 14:10 Sodium 131 mmol/L (136-145) L 06/22/22 14:10 Potassium 5.6 mmol/L (3.5-5.1) H 06/22/22 14:10 Chloride 94 mmol/L (98-107) L 06/22/22 14:10 Carbon Dioxide 20 mmol/L (22-29) L 06/22/22 14:10 Anion Gap 22.6 (5-19) H 06/22/22 14:10 BUN 89 mg/dL (6-20) H* D 06/22/22 14:10 Creatinine 9.1 mg/dL (0.7-1.2) H* 06/22/22 14:10 GFR Calculation 6.0 mL/min (90-130) L 06/22/22 14:10 Glucose 102 mg/dL (65-115) 06/22/22 14:10 Calculated Osmolality 299 mOsm/kg (285-295) H 06/22/22 14:10 Calcium 9.1 mg/dL (8.5-10.5) 06/22/22 14:10 Total Bilirubin 0.3 mg/dL (0.15-1.2) 06/22/22 14:10 AST 14 U/L (0-40) 06/22/22 14:10 ALT 10 U/L (0-41) 06/22/22 14:10 Alkaline Phosphatase 74 U/L (40-130) 06/22/22 14:10 Troponin T Baseline 380 ng/L (0-15) H* 06/22/22 14:10 Troponin T 120 Minute 370.7 ng/L (0-15) H 06/22/22 16:24 Delta Troponin T -9.3 ABS# (0-10) L 06/22/22 16:24 NT-Pro-B Natriuret Pep 05394 pg/mL (0-125) H 06/22/22 14:10 Total Protein 5.7 g/dL (6.6-8.7) L 06/22/22 14:10 Albumin 3.0 g/dL (3.5-5.2) L 06/22/22 14:10 Globulin 2.7 g/dL (1.3-4.6) 06/22/22 14:10 Lipase 43 U/L (13-60) 06/22/22 14:10 Procalcitonin 0.48 ng/mL (0-0.5) 06/22/22 14:10 TSH 6.89 uIU/mL (0.27-4.20) H 06/22/22 14:10 Influenza Type A Ag negative (Negative) 06/22/22 14:20 Influenza Type B Ag negative (Negative) 06/22/22 14:20 SARS-CoV-2 Ag (Rapid) negative (Negative) 06/22/22 14:20 EKG Data EKG 1: EKG interpretation date: 06/22/22 Interpretation: Normal sinus rhythm, no ST segment elevation or depression seen. [address] Domingo reviewed EKG and agree with findings Discharge Plan Discharge Patient Disposition: Admitted As Inpatient Admit Provider: Meera Medrano Clinical Impression: End stage renal disease on dialysis, Generalized weakness Condition: Stable Coding Level of Care Code ED Show Operations Supervisor for Chg Fwd Exam Comprehensive Documented by User: Jay Domingo MD 06/28/22 21:50 HPI - Weakness General: Chief complaint: Weakness Stated complaint: feels sick Time Seen by Provider: 06/22/22 13:59 PFSH ED PFSH: Medical History Bilateral hydronephrosis Bradycardia Chronic anemia CVA (cerebral vascular accident) Dependence on peritoneal dialysis Dilated aortic root ESRD (end stage renal disease) GERD (gastroesophageal reflux disease) History of stroke Hypertension Hypothyroidism Incomplete bladder emptying Polycystic kidney disease Right bundle branch block (RBBB) on electrocardiogram (ECG) Surgical History AV fistula History of colonoscopy 2019 at [facility] History of surgical procedure Peritoneal dialysis catheter placement by Dr. Kamara 2016 S/P hemodialysis catheter insertion (03/13/20) 23cm long exchanged right IJ Removed on 06/11/2020 Family History Mother Chronic kidney disease (CKD) Stroke Father Cancer lung Brother Hypertension Denies family history of Diabetes CAD (coronary artery disease) Clotting disorder Dementia Hyperlipidemia Psychiatric illness Anesthesia complication Bleeding disorder Lung disease Social History Smoking and tobacco status: current every day smoker cigarettes [ Other cigarette details: Half a pack per day for last 20-30 years] and smokeless tobacco Alcohol intake: never Lives independently: Yes Household members: family Housing: House Marital status: Number of children: 1 Current occupational status: disabled History of recent travel: No Current gender identity: Male Agree to transfusion: Yes Course Vital Signs: Vital signs: Vital Signs Temperature 97.7 F 06/22/22 22:00 Pulse Rate 79 06/22/22 22:00 Respiratory Rate 16 06/22/22 22:00 Blood Pressure 131/80 06/22/22 22:00 Pulse Oximetry 97 06/22/22 17:42 Oxygen Delivery Me thod 06/22/22 23:22 MDM - Weakness Medical Decision Making Patient is a 57-year-old male comes to the ED with generalized weakness. He has a history of end-stage renal disease and is currently on dialysis. He has been having symptoms of generalized weakness, fatigue, nasal congestion and drainage, body aches and decreased appetite for the past 3 days. Denies any fevers, chest pain. Vitals are stable. Patient is sitting comfortably on exam bed while in the room. Does not appear in any acute distress. He does appear little sleepy but rest of exam is benign. Baseline troponin was 380 and his EKG showed no ST segment elevation or depression seen with a rate of 66 bpm. Chest x-ray showed no acute findings. Hemoglobin of 10.1. Potassium 5.6, BUN 89, creatinine 9.1. Influenza and COVID were both negative. I talked with Dr. Domingo about patient case and he agreed he will need to be admitted and dialysis will be done here at the hospital. I spoke with Dr. Medrano the hospitalist and told her about patient case. Patient will be admitted and dialysis will be performed here at the hospital. The analytical data miner was notified about patient as well. I discussed this case with MARIA GUADALUPE Rojas. I reviewed documentation, labs, imaging. Etiology of patient symptoms is likely multifactorial however given lab abnormalities and his dialysis without ability to obtain dialysis later this day patient requires inpatient management. Jay Domingo MD Emergency Medicine Lab Data 06/22/22 14:10 06/22/22 14:10 Radiology Impressions Chest X-Ray 06/22/22 13:59 IMPRESSION: No acute findings. Laboratory Results WBC 10.0 10^3/uL (4.0-10.0) 06/22/22 14:10 RBC 3.25 10^6/uL (4.1-5.3) L 06/22/22 14:10 Hgb 10.1 g/dL (11.7-16.6) L 06/22/22 14:10 Hct 30.5 % (42.0-52.0) L 06/22/22 14:10 MCV 93.8 fl (80-94) 06/22/22 14:10 MCH 31.1 pg (28.0-34.0) 06/22/22 14:10 MCHC 33.1 g/dL (30.0-36.0) 06/22/22 14:10 RDW 13.3 % (12.1-15.1) 06/22/22 14:10 Plt Count 262 10^3/cmm (130-400) 06/22/22 14:10 MPV 10.5 fL (7.4-10.4) H 06/22/22 14:10 Neut % (Auto) 82.1 % 06/22/22 14:10 Lymph % (Auto) 8.3 % 06/22/22 14:10 [place] % (Auto) 7.9 % 06/22/22 14:10 Eos % (Auto) 1.0 % 06/22/22 14:10 Baso % (Auto) 0.2 % 06/22/22 14:10 Neut # (Auto) 8.18 10^3/uL (1.8-7.7) H 06/22/22 14:10 Lymph # (Auto) 0.8 10^3/uL (0.8-4.8) 06/22/22 14:10 [place] # (Auto) 0.8 10^3/uL (0.2-0.9) 06/22/22 14:10 Eos # (Auto) 0.1 10^3/uL (0.0-0.8) 06/22/22 14:10 Baso # (Auto) 0.0 10^3/uL (0.0-0.1) 06/22/22 14:10 Nucleated RBC % (auto) 0 % 06/22/22 14:10 Nucleated RBCs # 0.0 /100WBC 06/22/22 14:10 Sodium 131 mmol/L (136-145) L 06/22/22 14:10 Potassium 5.6 mmol/L (3.5-5.1) H 06/22/22 14:10 Chloride 94 mmol/L (98-107) L 06/22/22 14:10 Carbon Dioxide 20 mmol/L (22-29) L 06/22/22 14:10 Anion Gap 22.6 (5-19) H 06/22/22 14:10 BUN 89 mg/dL (6-20) H* D 06/22/22 14:10 Creatinine 9.1 mg/dL (0.7-1.2) H* 06/22/22 14:10 GFR Calculation 6.0 mL/min (90-130) L 06/22/22 14:10 Glucose 102 mg/dL (65-115) 06/22/22 14:10 Calculated Osmolality 299 mOsm/kg (285-295) H 06/22/22 14:10 Calcium 9.1 mg/dL (8.5-10.5) 06/22/22 14:10 Total Bilirubin 0.3 mg/dL (0.15-1.2) 06/22/22 14:10 AST 14 U/L (0-40) 06/22/22 14:10 ALT 10 U/L (0-41) 06/22/22 14:10 Alkaline Phosphatase 74 U/L (40-130) 06/22/22 14:10 Troponin T Baseline 380 ng/L (0-15) H* 06/22/22 14:10 Troponin T 120 Minute 370.7 ng/L (0-15) H 06/22/22 16:24 Delta Troponin T -9.3 ABS# (0-10) L 06/22/22 16:24 NT-Pro-B Natriuret Pep 49111 pg/mL (0-125) H 06/22/22 14:10 Total Protein 5.7 g/dL (6.6-8.7) L 06/22/22 14:10 Albumin 3.0 g/dL (3.5-5.2) L 06/22/22 14:10 Globulin 2.7 g/dL (1.3-4.6) 06/22/22 14:10 Lipase 43 U/L (13-60) 06/22/22 14:10 Procalcitonin 0.48 ng/mL (0-0.5) 06/22/22 14:10 TSH 6.89 uIU/mL (0.27-4.20) H 06/22/22 14:10 Influenza Type A Ag negative (Negative) 06/22/22 14:20 Influenza Type B Ag negative (Negative) 06/22/22 14:20 SARS-CoV-2 Ag (Rapid) negative (Negative) 06/22/22 14:20 Discharge Plan Discharge Patient Disposition: Admitted As Inpatient Admit Provider: Meera Medrano Clinical Impression: End stage renal disease on dialysis, Generalized weakness Condition: Stable Coding Level of Care Code ED Show Operations Supervisor for [facility] Fwd Exam Comprehensive
--- NOTE | 2022-06-22 14:23 | ECG_ITS ---
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 Measurements Intervals [place] Rate: 66 P: 17 WV: 143 QRS: -24 QRSD: 106 T: 13 QT: 446 QTc: 468 Interpretive Statements SINUS RHYTHM BORDERLINE LEFT AXIS DEVIATION [QRS AXIS < -20] Compared to ECG 03/17/2021 12:33:06 Left ventricular hypertrophy no longer present Myocardial infarct finding no longer present Electronically Signed On 06-22-2022 15:14:19 MANAGER ACUTE by Saurabh Fitzpatrick M.D. [id number]
[2022-06-22 14:42] LABS: Basophils % 0.2 %; Eosinophils # 0.1 10^3/uL (0.0-0.8); Hematocrit 30.5 % (42.0-52.0); Hemoglobin 10.1 g/dL (11.7-16.6); Lymphocytes # 0.8 10^3/uL (0.8-4.8); Lymphocytes % 8.3 %; Mean Corpuscular HGB Conc 33.1 g/dL (30.0-36.0); Mean Corpuscular Hemoglobin 31.1 pg (28.0-34.0); Mean Corpuscular Volume 93.8 fl (80-94); Mean Platelet Volume 10.5 fL (7.4-10.4); Monocytes # 0.8 10^3/uL (0.2-0.9); Monocytes % 7.9 %; Neutrophils # 8.18 10^3/uL (1.8-7.7); Neutrophils % 82.1 %; Nucleated Red Blood Cells % 0 %; Platelet Count 262 10^3/cmm (130-400); Red Blood Count 3.25 10^6/uL (4.1-5.3); Red Cell Distribution Width 13.3 % (12.1-15.1)
[2022-06-22 15:00] LABS: Alanine Aminotransferase 10 U/L (0-41); Alkaline Phosphatase 74 U/L (40-130); Anion Gap 22.6 (5-19); Aspartate Amino Transferase 14 U/L (0-40); Calcium 9.1 mg/dL (8.5-10.5); Carbon Dioxide 20 mmol/L (22-29); Chloride 94 mmol/L (98-107); Globulin 2.7 g/dL (1.3-4.6); Glucose 102 mg/dL (65-115); Lipase 43 U/L (13-60); Osmolality Calculated 299 mOsm/kg (285-295); Potassium 5.6 mmol/L (3.5-5.1); Sodium 131 mmol/L (136-145); Total Bilirubin 0.3 mg/dL (0.15-1.2); Total Protein 5.7 g/dL (6.6-8.7); Troponin(5th) Baseline 380 ng/L (0-15)
[2022-06-22 15:06] LABS: Blood Urea Nitrogen 89 mg/dL (6-20)
[2022-06-22 15:12] LABS: Influenza A by IFA negative (Negative); Influenza B by IFA negative (Negative); SARS Covid-2 Antigen negative (Negative)
--- NOTE | 2022-06-22 16:06 | ECG_ITS ---
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 Measurements Intervals [place] Rate: 74 P: 30 [place]: 153 QRS: -26 QRSD: 101 T: 22 QT: 414 QTc: 460 Interpretive Statements SINUS RHYTHM BORDERLINE LEFT AXIS DEVIATION [QRS AXIS < -20] Compared to ECG 06/22/2022 14:23:14 No significant changes Electronically Signed On 06-22-2022 19:55:40 IT COORDINATOR by Saurabh Fitzpatrick M.D. [email or web address] [email or web address].[email or web address]/store/[id number]
--- NOTE | 2022-06-22 17:00 | PM.CONSULT ---
Providers/Reason For Consult Consulting Physician/Specialty*: jorge ziegler md /telenephrology Reason for Consult*: ESRD care Requesting Physician: DR Joanna Medrano Primary Care Provider: Randolph Ortiz MD History of Present Illness History of Present Illness Navneet Savage is a 57 year old male PKD, CAD, HTN, ESRD, recurrent ascites. Pt here w/ weakness and lethargy, sob, malaise, URI symptoms and misse dialysis today. renal called for ESRD care. Review of Systems Narrative: weak, sob, malaise, ascites, feels badly, thinks he has a virus Medications/Allergies Home Medications Medication Instructions Recorded Confirmed Last Taken Type allopurinol 100 mg tablet 100 mg PO DAILY 11/27/19 06/22/22 06/08/22 History pantoprazole 40 mg tablet,delayed 40 mg PO DAILY 02/07/20 06/22/22 06/08/22 History release amlodipine 5 mg tablet 10 mg PO DAILY #30 tabs 03/21/21 06/22/22 06/08/22 Rx carvedilol 12.5 mg tablet 12.5 mg PO BID #60 tabs 03/21/21 06/22/22 06/08/22 Rx lisinopril 20 mg tablet 20 mg PO DAILY 07/08/21 06/22/22 06/08/22 History hydralazine 50 mg tablet 100 mg PO TID 04/14/22 06/22/22 06/08/22 History minoxidil 2.5 mg tablet 5 mg PO BID 04/14/22 06/22/22 06/08/22 History nifedipine 90 mg tablet,extended 90 mg PO DAILY 04/14/22 06/22/22 06/08/22 History release 24 hr isosorbide mononitrate 60 mg 60 mg PO DAILY 05/07/22 06/22/22 06/08/22 History tablet,extended release 24 hr simvastatin 40 mg tablet 40 mg PO DAILY 05/07/22 06/22/22 06/08/22 History levothyroxine 50 mcg tablet 50 mcg PO DAILY #90 tabs 05/11/22 06/22/22 06/08/22 Rx (Synthroid) cinacalcet 30 mg tablet 30 mg PO DAILY 05/12/22 06/22/22 06/08/22 History alfuzosin 10 mg tablet,extended 10 mg PO DAILY 06/18/22 06/22/22 Unknown History release 24 hr cholecalciferol (vitamin D3) 125 125 mcg PO DAILY 06/18/22 06/22/22 Unknown History mcg (5,000 unit) capsule fluoxetine 20 mg capsule (Prozac) 20 mg PO DAILY #30 caps 06/18/22 06/22/22 Unknown Rx ferric citrate 210 mg iron tablet 2 tab PO TID 06/22/22 06/22/22 Unknown History (Auryxia) lanthanum 1,000 mg oral powder 200 mg PO TID 06/22/22 06/22/22 Unknown History packet (Fosrenol) vit B,C-folic ac 800 mcg-zinc 12.5 1 tab PO DAILY 06/22/22 06/22/22 06/21/22 History mg-selen-D3 2,000 unit-vit E tablet (RenaPlex-D) Allergies Allergy/AdvReac Type Severity Reaction Status Date / Time Penicillins Allergy ALGY-Anaphy Verified 06/22/22 08:10 laxis Sulfa (Sulfonamide Allergy Unknown Verified 06/22/22 08:10 Antibiotics) PFSH Acute PFSH: Medical History Bilateral hydronephrosis Bradycardia Chronic anemia CVA (cerebral vascular accident) Dependence on peritoneal dialysis Dilated aortic root ESRD (end stage renal disease) GERD (gastroesophageal reflux disease) History of stroke Hypertension Hypothyroidism Incomplete bladder emptying Polycystic kidney disease Right bundle branch block (RBBB) on electrocardiogram (ECG) Surgical History AV fistula History of colonoscopy 2019 at [facility] History of surgical procedure Peritoneal dialysis catheter placement by Dr. Kamara 2016 S/P hemodialysis catheter insertion (03/13/20) 23cm long exchanged right IJ Removed on 06/11/2020 Family History Mother Chronic kidney disease (CKD) Stroke Father Cancer lung Brother Hypertension Denies family history of Diabetes CAD (coronary artery disease) Clotting disorder Dementia Hyperlipidemia Psychiatric illness Anesthesia complication Bleeding disorder Lung disease Social History Smoking and tobacco status: current every day smoker cigarettes [ Other cigarette details: Half a pack per day for last 20-30 years] and smokeless tobacco Alcohol intake: never Lives independently: Yes Household members: family Housing: House Marital status: Number of children: 1 Current occupational status: disabled History of recent travel: No Current gender identity: Male Agree to transfusion: Yes Vitals/I&O/Wt Last Vital Signs Temp 97.8 F 06/22/22 13:29 Pulse 63 06/22/22 13:29 Resp 16 06/22/22 13:29 BP 108/59 06/22/22 13:29 Pulse Ox 98 06/22/22 13:29 O2 Del Method 06/22/22 13:29 Weight last 48 hrs Weight 81.647 kg Physical Exam Narrative: NARD in bed, uncomfortable VS noted heent- nc/at, eomi, anicteric neck supple lung dull bases b/l heart regular abd + ascites, NT, +bs ext 1+ edema LUE AVF w/ thrill and bruit neuro a,a, o x 3 Data 06/22/22 14:10 06/22/22 14:10 A&P Assessment and plan (1) End stage renal disease on dialysis: 57 yr old man 1. weak, and low BP- assess for infection. please castillo culture. consider diagnostic paracentesis 2. elevtaed trop and weakness- consider cardiology eval 3. hypotension- hold all BP meds 4. ESRD, acidosis and hyperkalemia- HD now 3 hrs, gentle fluid removal via LUE AVF 5. hgb okay for now 6. na 131- monitor w/ dialysis. check tsh seen and examined w/ RN discussed w/ DR Medrano informed consent for telehealth and HD obtained from the pt Plan as above Consult Attestations Medical Necessity Statement: hypotensive, weak, + trop, k 5.6, acidosis Time Spent in Patient Care: Greater than 35 minutes (>than 50% of time spent in counselling and/or direct pt care on unit). Coding Level of Care Code Acute Code for Chg Fwd Diagnoses End stage renal disease on dialysis N18.6; Z99.2
--- NOTE | 2022-06-22 17:02 | PC.PHAR ---
PT STS HE TAKES TO MANY PILLS TO REMEMBER - MEDS VERIFIED USING EXTERNAL MED LIST LAST FILLED
[2022-06-22 17:18] LABS: Troponin 5 2HR Delta -9.3 ABS# (0-10)
[2022-06-22 17:19] LABS: Troponin 5 2HR 370.7 ng/L (0-15)
[2022-06-22 17:42] VITALS: BP 133/71; PULSE 82; RESP 16; O2SAT 97
[2022-06-22 17:47] LABS: Thyroid Stimulating Hormone 6.89 uIU/mL (0.27-4.20)
[2022-06-22 17:48] LABS: Procalcitonin 0.48 ng/mL (0-0.5)
[2022-06-22 17:50] VITALS: BP 99/65; PULSE 75; RESP 16; TEMP 36.6
[2022-06-22 18:08] LABS: NT Pro B Type Natriuretic Pept 47870 pg/mL (0-125)
--- NOTE | 2022-06-22 18:56 | P.HP_ITS ---
Providers/Chief Complaint Admitting Physician: Meera Medrano MD Primary Care Provider: Randolph Otriz MD Chief Complaint: feels sick History of Present Illness Navneet Savage is a 57 year old male who gets dialysis Wednesday, presented to the ER because he was feeling weak and lethargic not been able to get dialysis today. In the ER he has been diagnosed with hyperkalemia, clinically does not look fluid overloaded, blood pressure was low initially there was concern for infectious source, patient has chronic diarrhea, he is denying fever, chest pain, nausea, vomiting, abdominal pain, chest pain, shortness of breath. He lives with his friends, he does not have any medical DPOA, stating friend should make a decision for him if something happens however he does have a brother in [place]. He is vaccinated for COVID-19. Smokes half a pack a day. In the ER his baseline troponin is 380 however no active chest pain, potassium 5.6, abnormal TSH, EKG showing sinus rhythm without any ischemic or infarctive changes I evaluated the patient while he was getting dialysis Blood pressure 120/70 mmHg, Patient is stating that he gets paracentesis every week Review of Systems Const: Reports: body aches and fatigue; Denies: fever(s) Eyes: Denies: change in vision ENMT: Denies: throat pain Card: Denies: chest pain Resp: Denies: dyspnea GI: Denies: nausea : Denies: flank pain Musc: Denies: neck pain Skin/Breast: Denies: rash Neuro: Denies: headache(s) Psych: Denies: anxiety Endo: Denies: polyuria Lucas/Lymph: Denies: easy bruising All/Imm: Denies: urticaria Medications/Allergies Home Medications Medication Instructions Recorded Confirmed Last Taken Type allopurinol 100 mg tablet 100 mg PO DAILY 11/27/19 06/22/22 06/08/22 History pantoprazole 40 mg tablet,delayed 40 mg PO DAILY 02/07/20 06/22/22 06/08/22 History release amlodipine 5 mg tablet 10 mg PO DAILY #30 tabs 03/21/21 06/22/22 06/08/22 Rx carvedilol 12.5 mg tablet 12.5 mg PO BID #60 tabs 03/21/21 06/22/22 06/08/22 Rx lisinopril 20 mg tablet 20 mg PO DAILY 07/08/21 06/22/22 06/08/22 History hydralazine 50 mg tablet 100 mg PO TID 04/14/22 06/22/22 06/08/22 History minoxidil 2.5 mg tablet 5 mg PO BID 04/14/22 06/22/22 06/08/22 History nifedipine 90 mg tablet,extended 90 mg PO DAILY 04/14/22 06/22/22 06/08/22 History release 24 hr isosorbide mononitrate 60 mg 60 mg PO DAILY 05/07/22 06/22/22 06/08/22 History tablet,extended release 24 hr simvastatin 40 mg tablet 40 mg PO DAILY 05/07/22 06/22/22 06/08/22 History levothyroxine 50 mcg tablet 50 mcg PO DAILY #90 tabs 05/11/22 06/22/22 06/08/22 Rx (Synthroid) cinacalcet 30 mg tablet 30 mg PO DAILY 05/12/22 06/22/22 06/08/22 History alfuzosin 10 mg tablet,extended 10 mg PO DAILY 06/18/22 06/22/22 Unknown History release 24 hr cholecalciferol (vitamin D3) 125 125 mcg PO DAILY 06/18/22 06/22/22 Unknown History mcg (5,000 unit) capsule fluoxetine 20 mg capsule (Prozac) 20 mg PO DAILY #30 caps 06/18/22 06/22/22 Unknown Rx ferric citrate 210 mg iron tablet 2 tab PO TID 06/22/22 06/22/22 Unknown History (Auryxia) lanthanum 1,000 mg oral powder 200 mg PO TID 06/22/22 06/22/22 Unknown History packet (Fosrenol) vit B,C-folic ac 800 mcg-zinc 12.5 1 tab PO DAILY 06/22/22 06/22/22 06/21/22 History mg-selen-D3 2,000 unit-vit E tablet (RenaPlex-D) Allergies Allergy/AdvReac Type Severity Reaction Status Date / Time Penicillins Allergy ALGY-Anaphy Verified 06/22/22 08:10 laxis Sulfa (Sulfonamide Allergy Unknown Verified 06/22/22 08:10 Antibiotics) PFSH Acute PFSH: Medical History Bilateral hydronephrosis Bradycardia Chronic anemia CVA (cerebral vascular accident) Dependence on peritoneal dialysis Dilated aortic root ESRD (end stage renal disease) GERD (gastroesophageal reflux disease) History of stroke Hypertension Hypothyroidism Incomplete bladder emptying Polycystic kidney disease Right bundle branch block (RBBB) on electrocardiogram (ECG) Surgical History AV fistula History of colonoscopy 2019 at [facility] History of surgical procedure Peritoneal dialysis catheter placement by Dr. Kamara 2015 S/P hemodialysis catheter insertion (03/13/20) 23cm long exchanged right IJ Removed on 06/11/2020 Family History Mother Chronic kidney disease (CKD) Stroke Father Cancer lung Brother Hypertension Denies family history of Diabetes CAD (coronary artery disease) Clotting disorder Dementia Hyperlipidemia Psychiatric illness Anesthesia complication Bleeding disorder Lung disease Social History Smoking and tobacco status: current every day smoker cigarettes [ Other cigarette details: Half a pack per day for last 20-30 years] and smokeless tobacco Alcohol intake: never Lives independently: Yes Household members: family Housing: House Marital status: Number of children: 1 Current occupational status: disabled History of recent travel: No Current gender identity: Male Agree to transfusion: Yes Vitals/I&O/Wt Last Vital Signs Temp 97.8 F 06/22/22 13:29 Pulse 82 06/22/22 17:42 Resp 16 06/22/22 17:42 BP 133/71 06/22/22 17:42 Pulse Ox 97 06/22/22 17:42 O2 Del Method 06/22/22 13:29 Weight last 48 hrs Weight 81.647 kg Physical Exam Narrative: he is clinically euvolemic Mild signs of edema on legs 1+ Lethargic and fatigued however able to answer my question appropriately Nonfocal neuro exam Abdomen soft Distended Unkept appearance Edema, PERRLA S1, S2 for systolic murmur No audible stridor or wheezing Data 06/22/22 14:10 06/22/22 14:10 A&P Assessment and plan (1) End stage renal disease on dialysis: (2) Generalized weakness: (3) Ascites: (4) Hypothyroidism: (5) Tobacco abuse counseling: (6) Cannabis use disorder: (7) Tobacco use disorder: (8) Major depressive disorder: (9) GERD (gastroesophageal reflux disease): Plan Generalized weakness and fatigue Likely related to end-stage renal disease Active smoker History of cannabis abuse Unkept appearance No recent fever, abdominal pain Patient is stating he gets paracentesis every week Currently we will start him on SBP prophylaxis Hold antihypertensive regimen because of low blood pressure which could be secondary to cumulative effect of antihypertensive regimen that he takes at [facility], no active source of infection patient is stating he has chronic diarrhea we will check C. difficile Might benefit from albumin however blood pressure at the time of evaluation was 120/70 mmHg No active chest pain abnormal troponin could be type II NV EKG without ischemic or infarctive changes Physical therapy in the morning Renal dialysis diet COVID-19 flu negative Abnormal TSH, uncontrolled hypothyroidism, he might need to be adjustment of levothyroxine dose from 50 mics to 75 mics Attestations Medical Necessity Statement*: Anticipating more than 2 midnight Time Spent in Patient Care: 30 Coding Level of Care Code Acute Code for Chg Fwd Diagnoses End stage renal disease on dialysis N18.6; Z99.2 Generalized weakness R53.1 Ascites R18.8 Hypothyroidism E03.9 Tobacco abuse counseling Z71.6 Cannabis use disorder F12.90 Tobacco use disorder F17.200 Major depressive disorder F32.9 GERD (gastroesophageal reflux disease) K21.9
[2022-06-22 20:39] LABS: Lactic Sepsis W/Reflex 0.4 mmol/L (0.5-2.2)
--- NOTE | 2022-06-22 21:48 | P.DS_ITS ---
Discharge Providers Date of Admission: 06/22/22 17:45 Date of Discharge: June 22, 2022 Attending Provider at Admission: Meera Medrano MD Attending Provider at Discharge: Meera Medrano MD Primary Care Provider: Randolph Ortiz MD Diagnoses at Discharge Discharge Diagnosis (1) End stage renal disease on dialysis: Status: Acute (2) Generalized weakness: Status: Acute (3) Ascites: Status: Acute (4) Hypothyroidism: Status: Acute (5) Tobacco abuse counseling: Status: Acute (6) Cannabis use disorder: Status: Acute (7) Tobacco use disorder: Status: Acute (8) Major depressive disorder: Status: Acute (9) GERD (gastroesophageal reflux disease): Status: Acute Reason for Visit Reason for Visit: feels sick Brief History: LEFT AMA Hospital Course Hospital Course LEFT AMA Physical Exam Narrative: LEFT AMA Discharge Data Studies Completed and Pending Completed Studies During Hospitalization Category Date Time Status XR chest 1V portable [id number] Stat Exams 06/22/22 13:59 Completed Pending at discharge Category Date Time Status Blood Culture Stat Lab 06/22/22 20:06 Results Radiology Impressions Chest X-Ray 06/22/22 13:59 IMPRESSION: No acute findings. Laboratory Results WBC 10.0 10^3/uL (4.0-10.0) 06/22/22 14:10 RBC 3.25 10^6/uL (4.1-5.3) L 06/22/22 14:10 Hgb 10.1 g/dL (11.7-16.6) L 06/22/22 14:10 Hct 30.5 % (42.0-52.0) L 06/22/22 14:10 MCV 93.8 fl (80-94) 06/22/22 14:10 MCH 31.1 pg (28.0-34.0) 06/22/22 14:10 MCHC 33.1 g/dL (30.0-36.0) 06/22/22 14:10 RDW 13.3 % (12.1-15.1) 06/22/22 14:10 Plt Count 262 10^3/cmm (130-400) 06/22/22 14:10 MPV 10.5 fL (7.4-10.4) H 06/22/22 14:10 Neut % (Auto) 82.1 % 06/22/22 14:10 Lymph % (Auto) 8.3 % 06/22/22 14:10 [place] % (Auto) 7.9 % 06/22/22 14:10 Eos % (Auto) 1.0 % 06/22/22 14:10 Baso % (Auto) 0.2 % 06/22/22 14:10 Neut # (Auto) 8.18 10^3/uL (1.8-7.7) H 06/22/22 14:10 Lymph # (Auto) 0.8 10^3/uL (0.8-4.8) 06/22/22 14:10 [place] # (Auto) 0.8 10^3/uL (0.2-0.9) 06/22/22 14:10 Eos # (Auto) 0.1 10^3/uL (0.0-0.8) 06/22/22 14:10 Baso # (Auto) 0.0 10^3/uL (0.0-0.1) 06/22/22 14:10 Nucleated RBC % (auto) 0 % 06/22/22 14:10 Nucleated RBCs # 0.0 /100WBC 06/22/22 14:10 Sodium 131 mmol/L (136-145) L 06/22/22 14:10 Potassium 5.6 mmol/L (3.5-5.1) H 06/22/22 14:10 Chloride 94 mmol/L (98-107) L 06/22/22 14:10 Carbon Dioxide 20 mmol/L (22-29) L 06/22/22 14:10 Anion Gap 22.6 (5-19) H 06/22/22 14:10 BUN 89 mg/dL (6-20) H* D 06/22/22 14:10 Creatinine 9.1 mg/dL (0.7-1.2) H* 06/22/22 14:10 GFR Calculation 6.0 mL/min (90-130) L 06/22/22 14:10 Glucose 102 mg/dL (65-115) 06/22/22 14:10 Calculated Osmolality 299 mOsm/kg (285-295) H 06/22/22 14:10 Lactic Acid 0.4 mmol/L (0.5-2.2) L 06/22/22 20:05 Calcium 9.1 mg/dL (8.5-10.5) 06/22/22 14:10 Total Bilirubin 0.3 mg/dL (0.15-1.2) 06/22/22 14:10 AST 14 U/L (0-40) 06/22/22 14:10 ALT 10 U/L (0-41) 06/22/22 14:10 Alkaline Phosphatase 74 U/L (40-130) 06/22/22 14:10 Troponin T Baseline 380 ng/L (0-15) H* 06/22/22 14:10 Troponin T 120 Minute 370.7 ng/L (0-15) H 06/22/22 16:24 Delta Troponin T -9.3 ABS# (0-10) L 06/22/22 16:24 Troponin T Hi Sens 6Hr 343.0 ng/L (0-15) H 06/22/22 20:05 Troponin T Hi Sens 6Hr Delta -37.0 ng/L (0-12) L 06/22/22 20:05 NT-Pro-B Natriuret Pep 88371 pg/mL (0-125) H 06/22/22 14:10 Total Protein 5.7 g/dL (6.6-8.7) L 06/22/22 14:10 Albumin 3.0 g/dL (3.5-5.2) L 06/22/22 14:10 Globulin 2.7 g/dL (1.3-4.6) 06/22/22 14:10 Lipase 43 U/L (13-60) 06/22/22 14:10 Procalcitonin 0.48 ng/mL (0-0.5) 06/22/22 14:10 TSH 6.89 uIU/mL (0.27-4.20) H 06/22/22 14:10 Hep Bs Antigen Non-reactive (Nonreactive) 06/22/22 20:05 Hep Bs Antibody 3.5 (11.5-1000) L 06/22/22 20:05 Hepatitis C Antibody Non-reactive (Nonreactive) 06/22/22 20:05 Influenza Type A Ag negative (Negative) 06/22/22 14:20 Influenza Type B Ag negative (Negative) 06/22/22 14:20 SARS-CoV-2 Ag (Rapid) negative (Negative) 06/22/22 14:20 Vitals Last Vital Signs Temp 97.7 F 06/22/22 22:00 Pulse 79 06/22/22 22:00 Resp 16 06/22/22 22:00 BP 131/80 06/22/22 22:00 Pulse Ox 97 06/22/22 17:42 O2 Del Method 06/22/22 23:22 Discharge Plan Discharge Patient Disposition: Left Against Medical Advice Condition: Stable Prescriptions: No Action isosorbide mononitrate 60 mg tablet extended release 24 hr 60 mg PO DAILY simvastatin 40 mg tablet 40 mg PO DAILY cholecalciferol (vitamin D3) 125 mcg (5,000 unit) capsule 125 mcg PO DAILY alfuzosin 10 mg tablet extended release 24 hr 10 mg PO DAILY Rx Instructions: administer after the same meal each day fluoxetine [Prozac] 20 mg capsule 20 mg PO DAILY Qty: 30 0RF levothyroxine [Synthroid] 50 mcg tablet 50 mcg PO DAILY Qty: 90 0RF carvedilol 12.5 mg Tablet 12.5 mg PO BID Qty: 60 0RF amlodipine 5 mg Tablet 10 mg PO DAILY Qty: 30 0RF allopurinol 100 mg Tablet 100 mg PO DAILY pantoprazole 40 mg tablet,delayed release (DR/EC) 40 mg PO DAILY lisinopril 20 mg tablet 20 mg PO DAILY cinacalcet 30 mg tablet 30 mg PO DAILY minoxidil 2.5 mg tablet 5 mg PO BID nifedipine 90 mg tablet extended release 24hr 90 mg PO DAILY hydralazine 50 mg tablet 100 mg PO TID Auryxia 210 mg iron tablet 2 tab PO TID Fosrenol 1,000 mg powder in packet 200 mg PO TID RenaPlex-D 800 mcg-12.5 mg -2,000 unit tablet 1 tab PO DAILY Referrals: Randolph Ortiz MD [Primary Care Provider] - Patient Instructions: Opioid Safety, Pain Management Discharge Attestations Time Spent in Discharge Care*: other Quality Metrics Clinical Quality Measures [ No reported AMI, CVA or VTE this stay] Coding Level of Care Code Acute Code for Chg Fwd Diagnoses End stage renal disease on dialysis N18.6; Z99.2 Generalized weakness R53.1 Ascites R18.8 Hypothyroidism E03.9 Tobacco abuse counseling Z71.6 Cannabis use disorder F12.90 Tobacco use disorder F17.200 Major depressive disorder F32.9 GERD (gastroesophageal reflux disease) K21.9
[2022-06-22 22:00] VITALS: BP 131/80; PULSE 79; RESP 16; TEMP 36.5
--- NOTE | 2022-06-22 22:25 | ECG_ITS ---
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 Measurements Intervals [place] Rate: 71 P: 24 DC: 139 QRS: -31 QRSD: 105 T: 52 QT: 435 QTc: 475 Interpretive Statements SINUS RHYTHM LEFT AXIS DEVIATION [QRS AXIS < -30] NONSPECIFIC T-WAVE ABNORMALITY Compared to ECG 06/22/2022 16:06:17 T-wave abnormality now present Electronically Signed On 06-22-2022 22:50:36 QUALITY COORDINATOR by Saurabh Fitzpatrick M.D. [email or web address] Therapiespromedica bay [email or web address]/store/[id number]
[2022-06-22 22:43] LABS: Hepatitis B Surface AB 3.5 (11.5-1000); Hepatitis B Surface Antigen Non-Reactive (Nonreactive); Hepatitis C Virus Antibody Non-Reactive (Nonreactive)
--- NOTE | 2022-06-23 00:36 | PC.NURSE ---
Pt signed AMA form, pt A&O to person, place, and time. Pt educated on the risk of leaving AMA and educated his condition could worsen or could occur, pt verbalized understanding and still wanted to leave AMA. Pt IV removed, catheter intact upon removal. Pt left facility with all belongings.
--- NOTE | 2022-06-23 00:50 | PC.NURSE ---
ELIDIA: Called to the nurse's desk to speak with the pt. Pt stated that he wanted to leave and wanted his IV out. When asked why the pt wanted to leave he replied you aren't doing shit for me anyways . Asked the pt if he had a ride home and he said yes. Asked the pt what we could do for him and he replied take this damn IV out . Physician notified and IV was removed. AMA paperwork signed and pt left the floor.
== END 2022-06-23 01:01 | disposition left against medical advice (07) ==
LOC: ER 16:51 → MEDSURG 17:50
PROVIDERS: Internal Medicine Nephrology; Admitting Provider Internal Medicine; Emergency Provider Physician Assistant; PCP Family Medicine; Visit Provider Internal Medicine
DX: N18.6 End stage renal disease (principal); Z99.2 Dependence on renal dialysis; Z53.29 Procedure and treatment not carried out because of patient's decision for other reasons; R53.1 Weakness; R18.8 Other ascites; E03.9 Hypothyroidism, unspecified; F12.90 Cannabis use, unspecified, uncomplicated; F17.210 Nicotine dependence, cigarettes, uncomplicated; F32.9 Major depressive disorder, single episode, unspecified; K21.9 Gastro-esophageal reflux disease without esophagitis; E87.5 Hyperkalemia; Z86.73 Personal history of transient ischemic attack (TIA), and cerebral infarction without residual deficits; I95.9 Hypotension, unspecified
CPT/HCPCS: 36415; 71045; 80053; 83605; 83690; 83880; 84145; 84443; 84484; 85025; 86706; 86803; 87040; 87340; 87426; 87804; 90935; 93005; 96365; 99285; G0378; Q3014

== ENCOUNTER 2022-06-26 11:34 | Day surgery (SDC) | payer MEDICARE, MEDICAID, SELFPAY ==
[2022-06-22 08:11] VITALS: BMI 29.0
--- NOTE | 2022-06-26 11:41 | US_ITS ---
WS: [id number] ULTRASOUND-GUIDED THERAPEUTIC PARACENTESIS Procedure, risks, and complications have been explained to the patient. Consent is obtained. Utilizing aseptic technique and 1% buffered lidocaine, a small dermatome was made through which a 5 F rench Yueh catheter was inserted. Approximately 5000 ml of clear peritoneal fluid was obtained witho ut difficulty. No complications encountered. US/US paracentesis abd w [id number] IMPRESSION: Uncomplicated paracentesis yielding 5000 ml of peritoneal fluid.
[2022-06-26 11:48] VITALS: BP 199/92; PULSE 65; RESP 20; TEMP 35.8; O2SAT 95
[2022-06-26] MEDS: albumin 75 G/300 ML BAG 30 G IV (12:25)
== END 2022-06-26 13:10 | disposition home or self-care (01) ==
LOC: GILAB 11:36
PROVIDERS: Radiology Diagnostic Radiology; PCP Family Medicine; Visit Provider Internal Medicine Nephrology
PROC: (CPT 49082; principal; 2022-06-26 13:30)
DX: R18.8 Other ascites (principal)
CPT/HCPCS: 49083; 96365; P9046

== ENCOUNTER 2022-07-01 10:46 | Day surgery (SDC) | payer MEDICARE, MEDICAID, SELFPAY ==
[2022-07-01 07:39] VITALS: BMI 29.0
[2022-07-01 10:57] VITALS: BP 154/89; PULSE 58; RESP 18; TEMP 36.2; O2SAT 97
--- NOTE | 2022-07-01 11:00 | US_ITS ---
WS: [id number] ULTRASOUND-GUIDED THERAPEUTIC PARACENTESIS Procedure, risks, and complications have been explained to the patient. Consent is obtained. Utilizing aseptic technique and 1% buffered lidocaine, a small dermatome was made through which a 5 F rench Yueh catheter was inserted. Approximately 5000 ml of clear peritoneal fluid was obtained witho ut difficulty. No complications encountered. US/US paracentesis abd w [id number] IMPRESSION: Uncomplicated paracentesis yielding 5000 ml of peritoneal fluid.
[2022-07-01] MEDS: albumin 75 G/300 ML BAG 60 G IV (11:49)
== END 2022-07-01 12:30 | disposition home or self-care (01) ==
LOC: GILAB 10:49
PROVIDERS: Radiology Diagnostic Radiology; PCP Family Medicine; Visit Provider Internal Medicine Nephrology
PROC: (CPT 49082; principal; 2022-07-01 12:00)
DX: R18.8 Other ascites (principal)
CPT/HCPCS: 49083; 96365; P9046

== ENCOUNTER 2022-07-07 10:13 | Day surgery (SDC) | payer MEDICARE, MEDICAID, SELFPAY ==
[2022-07-03 08:41] VITALS: BMI 29.0
[2022-07-07 10:40] VITALS: BP 160/95; PULSE 76; RESP 18; TEMP 37.2; O2SAT 96
--- NOTE | 2022-07-07 10:43 | US_ITS ---
WS: [id number] ULTRASOUND-GUIDED PARACENTESIS CLINICAL INFORMATION: ascites COMPARISON: None. Procedure Informed consent: The risks, benefits, and alternatives of the procedure were discussed with the lisa ent. Verbal and written consent was obtained. Timeout: A timeout was performed to confirm the correct patient, procedure, and site. Preparation: A suitable skin site was identified. The patient was prepped and draped in usual sterile fashion. Lidocaine 1% was used for local anesthesia. Catheter: 4 [place] One-step Yueh catheter. Side: LEFT Lower quadrant. Fluid Volume: 5350 ml Color: Clear yellow DISPOSITION: Discarded safely. Complications: None. Patient disposition: Discharged from the department in stable condition. US/US paracentesis abd w [id number] IMPRESSION: Uncomplicated ultrasound-guided paracentesis. Removal of 5350 cc
== END 2022-07-07 12:00 | disposition home or self-care (01) ==
LOC: GILAB 10:14
PROVIDERS: PCP Family Medicine; Visit Provider Internal Medicine Nephrology
PROC: (CPT 49082; principal; 2022-07-07 12:00)
DX: R18.8 Other ascites (principal)
CPT/HCPCS: 49083; P9047

== ENCOUNTER 2022-07-11 12:53 | Emergency (ER) | payer MEDICARE, MEDICAID, SELFPAY ==
[2022-07-11 13:09] VITALS: PULSE 79; RESP 18; TEMP 36.2; O2SAT 95
[2022-07-11 13:21] VITALS: BP 196/103
[2022-07-11] MEDS: hyDRALAzine 25 mg Tablet 100 MG PO (13:37)
--- NOTE | 2022-07-11 14:17 | ED_ITS ---
Documented by User: SULEIMAN Reid 07/11/22 14:25 HPI - General Adult General: Chief complaint: General Medical Stated complaint: BP high Time Seen by Provider: 07/11/22 13:14 History of Present Illness: Patient is a 57-year-old chronically ill-appearing gentleman that presents to the emergency department with complaints of hypertension. Patient reports he has a history of chronic renal failure with dialysis 3 times a week. He also has a history of cirrhosis with ascites and undergoes a paracentesis weekly. He reports that he was evaluated by his dialysis nurse this morning and told that he was hypertensive. He arrives here in the emergency department with blood pressure 200/100. Patient reports he has taken his morning medications but has not taken his afternoon medications. He denies chest pain, shortness of breath, abdominal pain, nausea vomiting or diarrhea. Denies fever or chills. Patient does have a large distended abdomen but he states this is chronic in nature. Associated symptoms: Deny chest pain, confusion, dyspnea, headache(s), malaise, nausea, rash, palpitations or vomiting Review of Systems General: Reports: 10 or more systems reviewed and unremarkable except in HPI and below Const: Denies: fever(s), chills, change in appetite, change in weight, fatigue or malaise Eyes: Denies: change in vision, eye discomfort, eye discharge or eye redness ENMT: Denies: throat pain, enlarged tonsils, odynophagia, hoarseness, ear or mastoid pain, ear discharge, change in hearing, tinnitus, nasal discharge, nasal congestion, post nasal drip or sinus pain Card: Denies: chest pain, palpitations, irregular heart rhythm, edema, dyspnea on exertion, orthopnea or leg pain with exertion Resp: Denies: dyspnea, productive cough, non-productive cough, wheezing, stri autumn or chest congestion GI: Denies: abdominal pain, nausea, vomiting, dysphagia, diarrhea, constipation, bloating, GI cramping or hematochezia : Denies: flank pain, dysuria, urinary frequency, urinary urgency, urinary hesitancy, oliguria or hematuria Musc: Denies: neck pain, back pain, extremity pain, joint pain, joint swelling, joint redness, joint warmth or muscle weakness Skin/Breast: Denies: rash, pruritus, erythema, photosensitivity or new lesions Neuro: Denies: headache(s), numbness in extremities, weakness in extremities, sensory changes, lack of coordination, difficulty walking, frequent falls, dizziness, confusion, Slurred speech present, difficulty communicating thoughts, seizure-like activity or involuntary movements Endo: Denies: polyuria, polydipsia or tired all the time Lucas/Lymph: Denies: easy bruising or easy bleeding PFS ED PFSH: Medical History Bilateral hydronephrosis Bradycardia Chronic anemia CVA (cerebral vascular accident) Dependence on peritoneal dialysis Dilated aortic root ESRD (end stage renal disease) GERD (gastroesophageal reflux disease) History of stroke Hypertension Hypothyroidism Incomplete bladder emptying Polycystic kidney disease Right bundle branch block (RBBB) on electrocardiogram (ECG) Surgical History AV fistula History of colonoscopy 2019 at [facility] History of surgical procedure Peritoneal dialysis catheter placement by Dr. Kamara 2016 S/P hemodialysis catheter insertion (03/13/20) 23cm long exchanged right IJ Removed on 06/11/2020 Family History Mother Chronic kidney disease (CKD) Stroke Father Cancer lung Brother Hypertension Denies family history of Diabetes CAD (coronary artery disease) Clotting disorder Dementia Hyperlipidemia Psychiatric illness Anesthesia complication Bleeding disorder Lung disease Social History Smoking and tobacco status: current every day smoker cigarettes [ Other cigarette details: Half a pack per day for last 20-30 years] and smokeless tobacco Alcohol intake: never Lives independently: Yes Household members: family Housing: House Marital status: Number of children: 1 Current occupational status: disabled Current gender identity: Male Agree to transfusion: Yes Physical Exam Const: COMMON NORMALS: no acute distress, patient oriented x3 and alert GENERAL APPEARANCE: cooperative ORIENTATION/CONSCIOUSNESS: Yes awake, Yes oriented to person, Yes oriented to place and Yes oriented to time HENMT: COMMON NORMALS: normocephalic and atraumatic HEAD & SCALP: normocephalic and atraumatic FACE & SINUS: normal facial exam MOUTH: Normal oral and palatal mucosa present THROAT: posterior oropharynx normal Eye: COMMON NORMALS: Equal, round and reactive pupils present, EOMs intact bilaterally, conjunctivae normal and no scleral icterus GENERAL EYE: appearance normal, both eyes and all related structures ALIGNMENT: Yes alignment normal PERIORBITAL: periorbital findings normal CONJUNCTIVA: Yes conjunctivae normal PUPIL: Yes Equal, round and reactive pupils present Neck/C-Spine: COMMON NORMALS: full ROM GENERAL: Yes normal visual inspection Lymph: LYMPHATIC: no lymphadenopathy noted Chest: COMMONS NORMALS: normal inspection of the chest Breast/axilla inspe ction: Yes no chest deformity, asymmetry, normal contours, no nodules, masses, tenderness Resp: COMMON NORMALS: normal respiratory effort, No retractions, No use of accessory muscles and clear to auscultation bilaterally EFFORT & INSPECTION: Yes able to speak in complete sentences and Yes symmetric chest movement AUSCULTATION: clear to auscultation bilaterally Cardio: COMMON NORMALS: regular rate, regular rhythm and Peripheral pulses 2+ throughout RATE: regular rate RHYTHM: regular rhythm PERIPHERAL PULSES: Peripheral pulses 2+ throughout GI: COMMON NORMALS: Normal to inspection, nondistended, normoactive bowel sounds present, Soft to palpation, non-tender and No hepatosplenomegaly present INSPECTION: Yes normal to inspection AUSCULTATION: Yes normoactive bowel sounds PALPATION: Yes Soft to palpation and Yes No hepatosplenomegaly present RECTAL EXAM: Yes deferred Extremity: COMMON NORMALS: normal to inspection GENERAL: Yes normal exam except as noted Neuro: COMMON NORMALS: patient oriented x3 SENSORIUM/ORIENTATION: Yes alert, Yes oriented to person, Yes oriented to place and Yes oriented to time CRANIAL NERVES: Yes CN normal except as noted Psych: COMMON NORMALS: mental status grossly normal, Normal thought process present, cooperative, activity/motor behavior normal, denies homicidal ideation and denies suicidal ideation THOUGHT PROCESS: Normal thought process present Skin: COMMON NORMALS: no rashes or lesions noted, no wounds and turgor normal GENERAL SKIN EXAM: no rashes or lesions noted and turgor normal Course Vital Signs: Vital signs: Vital Signs Temperature 97.2 F L 07/11/22 13:09 Pulse Rate 77 07/11/22 14:35 Respiratory Rate 16 07/11/22 14:35 Blood Pressure 170/81 07/11/22 14:35 Pulse Oximetry 97 07/11/22 14:35 Oxygen Delivery Me thod 07/11/22 14:19 MDM - General Adult Medical Decision Making Patient was evaluated in the emergency department for hypertension. Patient has not taken his routine afternoon medications. 100 mg of hydralazine was ordered. This is the prescribed dose at home. We rechecked his blood pressure and he has a current blood pressure of 180s over 90. We are going to have the patient discharged home with his routine prescribed medications. He is to follow-up with his appointments as scheduled. At this time no further diagnostics are warranted. He has been instructed to return to the emergency department for new, concerning, worsening symptoms. All questions answered Discharge Plan Discharge Patient Disposition: Home Clinical Impression: Hypertension Condition: Stable Prescriptions: No Action isosorbide mononitrate 60 mg tablet extended release 24 hr 60 mg PO DAILY simvastatin 40 mg tablet 40 mg PO DAILY cholecalciferol (vitamin D3) 125 mcg (5,000 unit) capsule 125 mcg PO DAILY alfuzosin 10 mg tablet extended release 24 hr 10 mg PO DAILY Rx Instructions: administer after the same meal each day fluoxetine [Prozac] 20 mg capsule 20 mg PO DAILY Qty: 30 0RF levothyroxine [Synthroid] 50 mcg tablet 50 mcg PO DAILY Qty: 90 0RF carvedilol 12.5 mg Tablet 12.5 mg PO BID Qty: 60 0RF amlodipine 5 mg Tablet 10 mg PO DAILY Qty: 30 0RF allopurinol 100 mg Tablet 100 mg PO DAILY pantoprazole 40 mg tablet,delayed release (DR/EC) 40 mg PO DAILY lisinopril 20 mg tablet 20 mg PO DAILY cinacalcet 30 mg tablet 30 mg PO DAILY minoxidil 2.5 mg tablet 5 mg PO BID nifedipine 90 mg tablet extended release 24hr 90 mg PO DAILY hydralazine 50 mg tablet 100 mg PO TID Auryxia 210 mg iron tablet 2 tab PO TID Fosrenol 1,000 mg powder in packet 200 mg PO TID RenaPlex-D 800 mcg-12.5 mg -2,000 unit tablet 1 tab PO DAILY Discharge Orders: Discharge ED (Routine); Ordered 07/11/22 Ordered By: Mirella Alamo McTeer Referrals: Randolph Ortiz MD [Primary Care Provider] - Discharge Diet: Advance as tolerated Discharge Activity: Resume usual activity Patient Instructions: Hypertension (ED), Pain Management Activity Restrictions/Additional Instructions: Please take all your medications as prescribed Please return to the emergency department for new, concerning, worsening symptoms Please keep all of your regular appointments with dialysis and for your paracentesis. Also follow-up with your primary care doctor if you feel that your blood pressure is no longer managed with your current medications Coding Level of Care Code ED Liquid Compounder for Chg Fwd Documented by User: Marvin Tilley DO 07/13/22 06:09 HPI - General Adult General: Chief complaint: General Medical Stated complaint: BP high Time Seen by Provider: 07/11/22 13:14 [facility] ED PFSH: Medical History Bilateral hydronephrosis Bradycardia Chronic anemia CVA (cerebral vascular accident) Dependence on peritoneal dialysis Dilated aortic root ESRD (end stage renal disease) GERD (gastroesophageal reflux disease) History of stroke Hypertension Hypothyroidism Incomplete bladder emptying Polycystic kidney disease Right bundle branch block (RBBB) on electrocardiogram (ECG) Surgical History AV fistula History of colonoscopy 2019 at [facility] History of surgical procedure Peritoneal dialysis catheter placement by Dr. Kamara 2016 S/P hemodialysis catheter insertion (03/13/20) 23cm long exchanged right IJ Removed on 06/11/2020 Family History Mother Chronic kidney disease (CKD) Stroke Father Cancer lung Brother Hypertension Denies family history of Diabetes CAD (coronary artery disease) Clotting disorder Dementia Hyperlipidemia Psychiatric illness Anesthesia complication Bleeding disorder Lung disease Social History Smoking and tobacco status: current every day smoker cigarettes [ Other cigarette details: Half a pack per day for last 20-30 years] and smokeless tobacco Alcohol intake: never Lives independently: Yes Household members: family Housing: House Marital status: Number of children: 1 Current occupational status: disabled Current gender identity: Male Agree to transfusion: Yes Course Vital Signs: Vital signs: Vital Signs Temperature 97.2 F L 07/11/22 13:09 Pulse Rate 77 07/11/22 14:35 Respiratory Rate 16 07/11/22 14:35 Blood Pressure 170/81 07/11/22 14:35 Pulse Oximetry 97 07/11/22 14:35 Oxygen Delivery Me thod 07/11/22 14:19 MDM - General Adult Medical Decision Making Patient was evaluated in the emergency department for hypertension. Patient has not taken his routine afternoon medications. 100 mg of hydralazine was ordered. This is the prescribed dose at home. We rechecked his blood pressure and he has a current blood pressure of 180s over 90. We are going to have the patient discharged home with his routine prescribed medications. He is to follow-up with his appointments as scheduled. At this time no further diagnostics are warranted. He has been instructed to return to the emergency department for new, concerning, worsening symptoms. All questions answered Chart reviewed and patient discussed with midlevel. Agree with assessment and plan. Discharge Plan Discharge Patient Disposition: Home Clinical Impression: Hypertension Condition: Stable Prescriptions: No Action isosorbide mononitrate 60 mg tablet extended release 24 hr 60 mg PO DAILY simvastatin 40 mg tablet 40 mg PO DAILY cholecalciferol (vitamin D3) 125 mcg (5,000 unit) capsule 125 mcg PO DAILY alfuzosin 10 mg tablet extended release 24 hr 10 mg PO DAILY Rx Instructions: administer after the same meal each day fluoxetine [Prozac] 20 mg capsule 20 mg PO DAILY Qty: 30 0RF levothyroxine [Synthroid] 50 mcg tablet 50 mcg PO DAILY Qty: 90 0RF carvedilol 12.5 mg Tablet 12.5 mg PO BID Qty: 60 0RF amlodipine 5 mg Tablet 10 mg PO DAILY Qty: 30 0RF allopurinol 100 mg Tablet 100 mg PO DAILY pantoprazole 40 mg tablet,delayed release (DR/EC) 40 mg PO DAILY lisinopril 20 mg tablet 20 mg PO DAILY cinacalcet 30 mg tablet 30 mg PO DAILY minoxidil 2.5 mg tablet 5 mg PO BID nifedipine 90 mg tablet extended release 24hr 90 mg PO DAILY hydralazine 50 mg tablet 100 mg PO TID Auryxia 210 mg iron tablet 2 tab PO TID Fosrenol 1,000 mg powder in packet 200 mg PO TID RenaPlex-D 800 mcg-12.5 mg -2,000 unit tablet 1 tab PO DAILY Discharge Orders: Discharge ED (Routine); Ordered 07/11/22 Ordered By: Mirella Gregory Referrals: Randolph Ortiz MD [Primary Care Provider] - Discharge Diet: Advance as tolerated Discharge Activity: Resume usual activity Patient Instructions: Hypertension (ED), Pain Management Activity Restrictions/Additional Instructions: Please take all your medications as prescribed Please return to the emergency department for new, concerning, worsening symptoms Please keep all of your regular appointments with dialysis and for your paracentesis. Also follow-up with your primary care doctor if you feel that your blood pressure is no longer managed with your current medications Coding Level of Care Code ED Liquid Compounder for Eric Sandhu
[2022-07-11 14:19] VITALS: BP 170/81; PULSE 77; RESP 16; O2SAT 97
[2022-07-11 14:35] VITALS: BP 170/81; PULSE 77; RESP 16; O2SAT 97
== END 2022-07-11 14:37 | disposition home or self-care (01) ==
PROVIDERS: Emergency Provider Nurse Practitioner; PCP Family Medicine
DX: I12.0 Hypertensive chronic kidney disease with stage 5 chronic kidney disease or end stage renal disease (principal); N18.6 End stage renal disease; F17.210 Nicotine dependence, cigarettes, uncomplicated; Z86.73 Personal history of transient ischemic attack (TIA), and cerebral infarction without residual deficits
CPT/HCPCS: 99283

== ENCOUNTER 2022-07-14 10:27 | Day surgery (SDC) | payer MEDICARE, MEDICAID, SELFPAY ==
[2022-07-10 13:53] VITALS: BMI 29.0
--- NOTE | 2022-07-14 10:49 | US_ITS ---
WS: [id number] ULTRASOUND-GUIDED THERAPEUTIC PARACENTESIS Procedure, risks, and complications have been explained to the patient. Consent is obtained. Utilizing aseptic technique and 1% buffered lidocaine, a small dermatome was made through which a 5 F rench Yueh catheter was inserted. Approximately 7300 ml of clear peritoneal fluid was obtained witho ut difficulty. No complications encountered. US/US paracentesis [id number] [id number] IMPRESSION: Uncomplicated paracentesis yielding 7300 ml of peritoneal fluid.
[2022-07-14 10:55] VITALS: BP 177/104; PULSE 80; RESP 18; TEMP 36.6; O2SAT 96
== END 2022-07-14 12:36 | disposition home or self-care (01) ==
PROVIDERS: Radiology Diagnostic Radiology; PCP Family Medicine; Visit Provider Internal Medicine Nephrology
PROC: (CPT 49082; principal; 2022-07-14 12:00)
DX: R18.8 Other ascites (principal)
CPT/HCPCS: 49083; 96365; P9047

== ENCOUNTER 2022-07-17 02:03 | Emergency (ER) | payer MEDICARE, MEDICAID, SELFPAY ==
[2022-07-17 02:09] VITALS: BP 116/67; PULSE 85; RESP 16; TEMP 36.7; O2SAT 97; BMI 29.0
--- NOTE | 2022-07-17 02:17 | ECG_ITS ---
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 Measurements Intervals [place] Rate: 78 P: 42 OH: 143 QRS: -43 QRSD: 109 T: 51 QT: 435 QTc: 497 Interpretive Statements SINUS RHYTHM LEFT AXIS DEVIATION [QRS AXIS < -30] MODERATE VOLTAGE CRITERIA FOR LVH, CONSIDER NORMAL VARIANT [MEETS CRITERIA IN ONE OF: R(aVL), S(V1), R(V5), R(V5/V6)+S(V1)] POSSIBLE SEPTAL MYOCARDIAL INFARCTION , OF INDETERMINATE AGE [30 ms Q WAVE IN V1/V2] Compared to ECG 06/22/2022 22:25:57 Myocardial infarct finding now present T-wave abnormality no longer present Electronically Signed On 07-17-2022 16:46:02 [employer] by China Wheat M.D. [id number]
--- NOTE | 2022-07-17 02:18 | XRR_ITS ---
PROCEDURE INFORMATION: Exam: XR Chest Exam date and time: 07/17/2022 2:44 AM Age: 57 years old Clinical indication: Chest pressure; Prior surgery; Surgery type: Dialysis cath; Patient HX: C/O chest pain with hypertension; Additional info: Cp TECHNIQUE: Imaging protocol: Radiologic exam of the chest. Views: 1 view. COMPARISON: CR XR chest 1V portable [id number] 06/22/2022 2:08 PM FINDINGS: Lungs: Unremarkable. No consolidation. Pleural spaces: Unremarkable. No pleural effusion. No pneumothorax. Heart/Mediastinum: Mild cardiac enlargement. Bones/joints: Unremarkable. XR/XR chest 1V portable [id number] IMPRESSION: Negative for focal acute pulmonary disease.
--- NOTE | 2022-07-17 02:22 | W.ED.CHESTPA ---
HPI - Chest Pain General: Chief Complaint: Chest Pain Stated Complaint: High BP Time Seen by Provider: 07/17/22 02:19 Source: patient Mode of arrival: ambulatory Limitations: no limitations History of Present Illness: 57-year-old male who has a history of end-stage renal disease he gets dialysis Wednesday supposed to go tomorrow morning he states that tonight he woke up he felt some tingling in his hands so he checked his blood pressure was in the 140s he became concerned he had a slight sharp chest pain he states now is resolved he was getting concerned about his blood pressure he denies any slurred speech no weakness no worsening proving factors. Associated symptoms: Deny abdominal pain, dyspnea, fever(s), nausea or vomiting Review of Systems Const: Denies: fever(s), chills, body aches or change in appetite Eyes: Denies: blurry vision or eye discomfort ENMT: Denies: throat pain or dental pain Card: Reports: chest pain Resp: Denies: dyspnea GI: Denies: abdominal pain, nausea, vomiting or diarrhea : Denies: dysuria Musc: Denies: neck pain or back pain Skin/Breast: Denies: rash Neuro: Denies: headache(s) Psych: Denies: depression Lucas/Lymph: Denies: easy bruising All/Imm: Denies: urticaria PFSH ED PFSH: Medical History Bilateral hydronephrosis Bradycardia Chronic anemia CVA (cerebral vascular accident) Dependence on peritoneal dialysis Dilated aortic root ESRD (end stage renal disease) GERD (gastroesophageal reflux disease) History of stroke Hypertension Hypothyroidism Incomplete bladder emptying Polycystic kidney disease Right bundle branch block (RBBB) on electrocardiogram (ECG) Surgical History AV fistula History of colonoscopy [address] [facility] History of surgical procedure Peritoneal dialysis catheter placement by Dr. Kamara 2015 S/P hemodialysis catheter insertion (03/13/20) 23cm long exchanged right IJ Removed on 06/11/2020 Family History Mother Chronic kidney disease (CKD) Stroke Father Cancer lung Brother Hypertension Denies family history of Diabetes CAD (coronary artery disease) Clotting disorder Dementia Hyperlipidemia Psychiatric illness Anesthesia complication Bleeding disorder Lung disease Social History Smoking and tobacco status: current every day smoker cigarettes [ Other cigarette details: Half a pack per day for last 20-30 years] and smokeless tobacco Alcohol intake: never Lives independently: Yes Household members: family Housing: House Marital status: Number of children: 1 Current occupational status: disabled Current gender identity: Male Agree to transfusion: Yes Physical Exam Const: COMMON NORMALS: no acute distress, patient oriented x3 and healthy appearing HENMT: COMMON NORMALS: normocephalic and atraumatic HEAD & SCALP: normocephalic and atraumatic Eye: COMMON NORMALS: Equal, round and reactive pupils present and EOMs intact bilaterally PUPIL: Yes Equal, round and reactive pupils present Neck/C-Spine: COMMON NORMALS: full ROM and supple Chest: COMMONS NORMALS: normal inspection of the chest and normal palpation of entire chest wall Resp: COMMON NORMALS: normal respiratory effort, No retractions, No use of accessory muscles and clear to auscultation bilaterally AUSCULTATION: clear to auscultation bilaterally Cardio: COMMON NORMALS: regular rate, regular rhythm and No murmurs present (Cardio) RATE: regular rate RHYTHM: regular rhythm GI: COMMON NORMALS: Normal to inspection, nondistended, normoactive bowel sounds present, Soft to palpation, non-tender and no masses PALPATION: Yes Soft to palpation Extremity: COMMON NORMALS: normal to inspection and full ROM Neuro: COMMON NORMALS: patient oriented x3, moves all extremities and no focal motor deficits Psych: COMMON NORMALS: mental status grossly normal, Normal thought process present and cooperative THOUGHT PROCESS: Normal thought process present Skin: COMMON NORMALS: no rashes or lesions noted and no wounds GENERAL SKIN EXAM: no rashes or lesions noted Course Vital Signs: Vital signs: Vital Signs Temperature 98.0 F 07/17/22 02:09 Pulse Rate 65 07/17/22 04:54 Respiratory Rate 20 H 07/17/22 04:54 Blood Pressure 118/65 07/17/22 04:54 Pulse Oximetry 95 07/17/22 04:54 Oxygen Delivery Me thod 07/17/22 04:54 MDM - Chest Pain Medical Decision Making Patient presents for chest pain that is atypical in nature is very minor he is pain-free currently is more worried about his blood pressure which is normal now is 118/65 to her troponin was unchanged from previous he is stable for discharge he gets dialyzed today he is to follow-up with his dialysis appointment today. Lab Data 07/17/22 02:34 07/17/22 02:34 Radiology Impressions Chest X-Ray 07/17/22 02:18 IMPRESSION: Negative for focal acute pulmonary disease. Laboratory Results WBC 6.2 10^3/uL (4.0-10.0) 07/17/22 02:34 RBC 3.14 10^6/uL (4.1-5.3) L 07/17/22 02:34 Hgb 9.5 g/dL (11.7-16.6) L 07/17/22 02:34 Hct 30.1 % (42.0-52.0) L 07/17/22 02:34 MCV 95.9 fl (80-94) H 07/17/22 02:34 MCH 30.3 pg (28.0-34.0) 07/17/22 02:34 MCHC 31.6 g/dL (30.0-36.0) 07/17/22 02:34 RDW 14.4 % (12.1-15.1) 07/17/22 02:34 Plt Count 272 10^3/cmm (130-400) 07/17/22 02:34 MPV 10.7 fL (7.4-10.4) H 07/17/22 02:34 Neut % (Auto) 67.2 % 07/17/22 02:34 Lymph % (Auto) 18.2 % 07/17/22 02:34 [place] % (Auto) 11.9 % 07/17/22 02:34 Eos % (Auto) 2.1 % 07/17/22 02:34 Baso % (Auto) 0.3 % 07/17/22 02:34 Neut # (Auto) 4.17 10^3/uL (1.8-7.7) 07/17/22 02:34 Lymph # (Auto) 1.1 10^3/uL (0.8-4.8) 07/17/22 02:34 [place] # (Auto) 0.7 10^3/uL (0.2-0.9) 07/17/22 02:34 Eos # (Auto) 0.1 10^3/uL (0.0-0.8) 07/17/22 02:34 Baso # (Auto) 0.0 10^3/uL (0.0-0.1) 07/17/22 02:34 Nucleated RBC % (auto) 0 % 07/17/22 02:34 Nucleated RBCs # 0.0 /100WBC 07/17/22 02:34 Sodium 133 mmol/L (136-145) L 07/17/22 02:34 Potassium 3.8 mmol/L (3.5-5.1) 07/17/22 02:34 Chloride 95 mmol/L (98-107) L 07/17/22 02:34 Carbon Dioxide 28 mmol/L (22-29) 07/17/22 02:34 Anion Gap 13.8 (5-19) 07/17/22 02:34 BUN 37 mg/dL (6-20) H 07/17/22 02:34 Creatinine 5.6 mg/dL (0.7-1.2) H* 07/17/22 02:34 GFR Calculation 10.5 mL/min (90-130) L 07/17/22 02:34 Glucose 126 mg/dL (65-115) H 07/17/22 02:34 Calculated Osmolality 286 mOsm/kg (285-295) 07/17/22 02:34 Calcium 9.2 mg/dL (8.5-10.5) 07/17/22 02:34 Total Bilirubin 0.2 mg/dL (0.15-1.2) 07/17/22 02:34 AST 21 U/L (0-40) 07/17/22 02:34 ALT 14 U/L (0-41) 07/17/22 02:34 Alkaline Phosphatase 72 U/L (40-130) 07/17/22 02:34 Troponin T Baseline 277 ng/L (0-15) H* 07/17/22 02:34 Troponin T 120 Minute 268.1 ng/L (0-15) H 07/17/22 04:44 Delta Troponin T -8.9 ABS# (0-10) L 07/17/22 04:44 Total Protein 5.4 g/dL (6.6-8.7) L 07/17/22 02:34 Albumin 3.2 g/dL (3.5-5.2) L 07/17/22 02:34 Globulin 2.2 g/dL (1.3-4.6) 07/17/22 02:34 EKG Data EKG 1: I personally reviewed and interpreted this EKG as follows: EKG interpretation date: 07/17/22 EKG interpretation time: 02:17 Interpretation: nsr hr [address] or t wave abnormalities qrs 109 qtc 468 Discharge Plan Discharge Patient Disposition: Home Clinical Impression: Chest pain, Hypertension, ESRD (end stage renal disease) Condition: Stable Prescriptions: No Action isosorbide mononitrate 60 mg tablet extended release 24 hr 60 mg PO DAILY simvastatin 40 mg tablet 40 mg PO DAILY cholecalciferol (vitamin D3) 125 mcg (5,000 unit) capsule 125 mcg PO DAILY alfuzosin 10 mg tablet extended release 24 hr 10 mg PO DAILY Rx Instructions: administer after the same meal each day levothyroxine [Synthroid] 50 mcg tablet 50 mcg PO DAILY Qty: 90 0RF fluoxetine [Prozac] 20 mg capsule 20 mg PO DAILY Qty: 30 0RF carvedilol 12.5 mg Tablet 12.5 mg PO BID Qty: 60 0RF amlodipine 5 mg Tablet 10 mg PO DAILY Qty: 30 0RF allopurinol 100 mg Tablet 100 mg PO DAILY pantoprazole 40 mg tablet,delayed release (DR/EC) 40 mg PO DAILY lisinopril 20 mg tablet 20 mg PO DAILY cinacalcet 30 mg tablet 30 mg PO DAILY minoxidil 2.5 mg tablet 5 mg PO BID nifedipine 90 mg tablet extended release 24hr 90 mg PO DAILY hydralazine 50 mg tablet 100 mg PO TID Auryxia 210 mg iron tablet 2 tab PO TID Fosrenol 1,000 mg powder in packet 200 mg PO TID RenaPlex-D 800 mcg-12.5 mg -2,000 unit tablet 1 tab PO DAILY Discharge Orders: Discharge ED (Routine); Ordered 07/17/22 Ordered By: Ghada Fontanez Discharge Diet: Advance as tolerated Discharge Activity: Resume usual activity Patient Instructions: Chest Pain (ED) Coding Level of Care Code ED City Planner for Eric Sandhu
[2022-07-17] MEDS: aspirin 81 mg Chew Tablet 324 MG PO (02:33)
[2022-07-17 03:03] LABS: Alanine Aminotransferase 14 U/L (0-41); Alkaline Phosphatase 72 U/L (40-130); Aspartate Amino Transferase 21 U/L (0-40); Calcium 9.2 mg/dL (8.5-10.5); Carbon Dioxide 28 mmol/L (22-29); Globulin 2.2 g/dL (1.3-4.6); Osmolality Calculated 286 mOsm/kg (285-295); Total Bilirubin 0.2 mg/dL (0.15-1.2)
[2022-07-17 03:31] LABS: Troponin(5th) Baseline 277 ng/L (0-15)
[2022-07-17 03:38] LABS: Albumin Level 3.2 g/dL (3.5-5.2); Blood Urea Nitrogen 37 mg/dL (6-20); Chloride 95 mmol/L (98-107); Glomerular Filtration Rate 10.5 mL/min (90-130); Glucose 126 mg/dL (65-115); Sodium 133 mmol/L (136-145); Total Protein 5.4 g/dL (6.6-8.7)
[2022-07-17 03:41] LABS: Anion Gap 13.8 (5-19); Potassium 3.8 mmol/L (3.5-5.1)
--- NOTE | 2022-07-17 04:50 | ECG_ITS ---
[facility] Test Date: 2022-07-17 Pat Name: Navneet Savage Department: Room: Gender: Male [employer] Dean: : 1965 Requested By: Ghada Fontanez Order Number: [id number] Nate MD: China Wheat M.D. Measurements Intervals [place] Rate: 80 P: 36 CT: 151 QRS: -32 QRSD: 105 T: 52 QT: 427 QTc: 495 Interpretive Statements SINUS RHYTHM LEFT AXIS DEVIATION [QRS AXIS < -30] SEPTAL MYOCARDIAL INFARCTION , OF INDETERMINATE AGE [40+ ms Q WAVE IN V1/V2] Compared to ECG 07/17/2022 02:17:46 No significant changes Electronically Signed On 07-17-2022 16:52:04 CERTIFIED FRAUD EXAMINER by China Wheat M.D. [id number]
[2022-07-17 04:54] VITALS: BP 118/65; PULSE 65; RESP 20; O2SAT 95
[2022-07-17 05:05] LABS: Basophils % 0.3 %; Eosinophils # 0.1 10^3/uL (0.0-0.8); Eosinophils % 2.1 %; Hematocrit 30.1 % (42.0-52.0); Hemoglobin 9.5 g/dL (11.7-16.6); Lymphocytes # 1.1 10^3/uL (0.8-4.8); Lymphocytes % 18.2 %; Mean Corpuscular HGB Conc 31.6 g/dL (30.0-36.0); Mean Corpuscular Hemoglobin 30.3 pg (28.0-34.0); Mean Corpuscular Volume 95.9 fl (80-94); Mean Platelet Volume 10.7 fL (7.4-10.4); Monocytes # 0.7 10^3/uL (0.2-0.9); Monocytes % 11.9 %; Neutrophils # 4.17 10^3/uL (1.8-7.7); Neutrophils % 67.2 %; Nucleated Red Blood Cells % 0 %; Platelet Count 272 10^3/cmm (130-400); Red Blood Count 3.14 10^6/uL (4.1-5.3); Red Cell Distribution Width 14.4 % (12.1-15.1); White Blood Count 6.2 10^3/uL (4.0-10.0)
[2022-07-17 05:23] LABS: Troponin 5 2HR Delta -8.9 ABS# (0-10)
[2022-07-17 05:24] LABS: Troponin 5 2HR 268.1 ng/L (0-15)
== END 2022-07-17 05:34 | disposition home or self-care (01) ==
PROVIDERS: Emergency Provider Emergency Medicine
DX: R07.9 Chest pain, unspecified (principal); I12.0 Hypertensive chronic kidney disease with stage 5 chronic kidney disease or end stage renal disease; N18.6 End stage renal disease; Z86.73 Personal history of transient ischemic attack (TIA), and cerebral infarction without residual deficits; F17.210 Nicotine dependence, cigarettes, uncomplicated
CPT/HCPCS: 71045; 80053; 84484; 85025; 93005; 99285

== ENCOUNTER 2022-07-20 14:04 | Outpatient (CLI) | payer MEDICARE, MEDICAID, SELFPAY ==
--- NOTE | 2022-07-20 13:30 | USCV_ITS ---
Navneet Savage Age: 57 Gender: M : 1965 Exam Date: 07/20/2022 14:19 Ordering Phys: Randolph Ortiz MD Technologist: CASEY Exam Location: [facility] [place] Indication: MURMUR BP: 150 / 88 HR: 71 Rhythm: Sinus Technical Quality: Adequate MEASUREMENTS (Male / Female) Normal Values 2D ECHO LV Diastolic Diameter PLAX 4.6 cm 4.2 - 5.9 / 3.9 - 5.3 cm LV Systolic Diameter PLAX 3.1 cm LV Chamber Size 4.1 cm IVS Diastolic Thickness 1.1 cm 0.6 - 1.0 / 0.6 - 0.9 cm IVS Systolic Thickness 1.3 cm LVPW Diastolic Thickness 1.3 cm 0.6 - 1.0 / 0.6 - 0.9 cm LVPW Systolic Thickness 1.5 cm RV Chamber Size 3.6 cm LVOT Diameter 2.0 cm LV Ejection Fraction 2D Teich 59.7 % LV Ejection Fraction MOD 2C 32.1 % LV Ejection Fraction 2C AL 39.4 % LA Diameter 4.0 cm LA Width 3.1 cm LA Height 4.6 cm RA Width 3.5 cm RA Height 4.9 cm Aorta at Sinotubular Diameter 3.9 cm IVC Diameter 1.7 cm M-MODE Aortic Annulus Diameter 4.3 cm LA Ao Ratio MM 1.1 MV E Point Septal Separation 0.7 cm DOPPLER AV Peak Velocity 243.0 cm/s LVOT Peak Velocity 106.0 cm/s AV Area Cont Eq vti 1.9 cm squared AV Area Cont Eq pk 1.4 cm squared MV Peak Velocity 152.0 cm/s MV Area PHT 5.0 cm squared Mitral E to A Ratio 1.0 MV E' Velocity 77.5 cm/s Mitral E to MV E' Ratio 18.9 Mitral E to LV E' Lateral Ratio 18.9 Mitral E to LV E' Septal Ratio 19.1 TR Peak Velocity 248.9 cm/s TR Peak Gradient 24.8 mmHg TR Mean Velocity 191.8 cm/s TR Mean Gradient 16.2 mmHg TR Velocity Time Integral 69.6 cm TV Peak E Velocity 64.0 cm/s Right Atrial Pressure 8.0 mmHg Pulmonary Artery Systolic Pressu 32.8 mmHg RV Acceleration Time 0.2 s RV Ejection Time 0.4 s RV AcT/ET 0.5 FINDINGS Left Ventricle Normal left ventricular size and systolic function, EF 60%. Mild left ventricular hypertrophy. No regional wall motion abnormalities. Grade II/IV diastolic dysfunction, moderately elevated filling pressures. Right Ventricle The right ventricle is normal in size and function. Right Atrium Mildly increased right atrial size. Left Atrium Mildly increased left atrial size. Mitral Valve Thickened mitral valve. Moderate to heavy mitral annular calcification Aortic Valve Thickened aortic valve. Mild aortic valve stenosis, mean gradient 12.4 mmHg, CHAYO 1.9 cm squared. Tricuspid Valve Mild to moderate tricuspid valve regurgitation. Estimated pulmonary artery peak systolic pressure 33 mmHg Pulmonic Valve Pulmonic valve not well visualized. Pericardium Normal pericardium without effusion. Aorta Normal ascending aorta dimension. IVC Normal inferior vena cava. CONCLUSIONS Normal left ventricular size and systolic function, EF 60%. Mild left ventricular hypertrophy. No regional wall motion abnormalities. Grade II/IV diastolic dysfunction, moderately elevated filling pressures. Mild biatrial enlargement. Mild aortic valve stenosis, mean gradient 12.4 mmHg, CHAYO 1.9 cm squared. Mild to moderate tricuspid valve regurgitation. Estimated pulmonary artery peak systolic pressure 33 mmHg. Thickened mitral valve. Moderate to heavy mitral annular calcification. There is no pericardial effusion. There are no intracardiac masses. Compared to the study from 03/17/2021, there is development of aortic valve stenosis- mild Dr China Wheat MD FACC (Electronically Signed) Final Date: 21 July 2022 09:35 S
== END 2022-07-20 14:05 | disposition home or self-care (01) ==
PROVIDERS: Visit Provider Family Medicine
DX: I77.810 Thoracic aortic ectasia (principal); I08.2 Rheumatic disorders of both aortic and tricuspid valves
CPT/HCPCS: 93306

== ENCOUNTER 2022-07-21 10:55 | Day surgery (SDC) | payer MEDICARE, MEDICAID, SELFPAY ==
[2022-07-20 08:29] VITALS: BMI 29.0
[2022-07-21 11:10] VITALS: BP 137/78; PULSE 72; RESP 18; TEMP 36.6; O2SAT 97
--- NOTE | 2022-07-21 11:12 | US_ITS ---
WS: [id number] ULTRASOUND-GUIDED PARACENTESIS CLINICAL INFORMATION: ascites COMPARISON: None. Procedure Informed consent: The risks, benefits, and alternatives of the procedure were discussed with the lisa ent. Verbal and written consent was obtained. Timeout: A timeout was performed to confirm the correct patient, procedure, and site. Preparation: A suitable skin site was identified. The patient was prepped and draped in usual sterile fashion. Lidocaine 1% was used for local anesthesia. Catheter: 4 [place] One-step Yueh catheter. Side: RIGHT Lower quadrant. Fluid Volume: 7300 ml Color: Clear yellow DISPOSITION: Discarded safely. Complications: None. Patient disposition: Discharged from the department in stable condition. US/US paracentesis abd w [id number] IMPRESSION: Uncomplicated ultrasound-guided paracentesis. Removal of 7300 cc
[2022-07-21] MEDS: albumin 75 G/300 ML BAG 300 G IV (11:46)
== END 2022-07-21 12:30 | disposition home or self-care (01) ==
LOC: GILAB 10:56
PROVIDERS: Radiology Neuroradiology; Visit Provider Internal Medicine Nephrology
PROC: (CPT 49082; principal; 2022-07-21 12:00)
DX: R18.8 Other ascites (principal)
CPT/HCPCS: 49083; 96365; P9046

== ENCOUNTER 2022-07-22 20:30 | Emergency (ER) | payer MEDICARE, MEDICAID, SELFPAY ==
--- NOTE | 2022-07-22 20:34 | XRR_ITS ---
PROCEDURE INFORMATION: Exam: XR Chest Exam date and time: 07/22/2022 9:14 PM Age: 57 years old Clinical indication: Cough; Additional info: Cp TECHNIQUE: Imaging protocol: Radiologic exam of the chest. Views: 1 view. COMPARISON: CR (CHEST, ) 07/17/2022 2:44 AM FINDINGS: Lungs: Unremarkable. No consolidation. Pleural spaces: Unremarkable. No pleural effusion. No pneumothorax. Heart/Mediastinum: Unremarkable. No cardiomegaly. Bones/joints: Unremarkable. XR/XR chest 1V portable [id number] IMPRESSION: No acute findings.
[2022-07-22 20:39] VITALS: BP 187/87; PULSE 77; RESP 19; TEMP 36.6; O2SAT 98
--- NOTE | 2022-07-22 21:42 | W.ED.GENADLT ---
Documented by User: Jay Domingo MD 08/02/22 21:44 HPI - General Adult General: Chief complaint: General Medical Stated complaint: DOES NOT FEEL WELL Time Seen by Provider: 07/22/22 21:28 History of Present Illness: Mr. Savage is a 57-year-old gentleman with complex past medical history including end-stage renal disease on hemodialysis. He presents to the emergency department for generalized illness. He reports being at his baseline health the past few days with perhaps some watery diarrhea this morning. He was laying well and then went to dialysis and has subsequently felt generally ill. He describes generalized malaise, mild shortness of breath, abdominal discomfort, and generalized weakness. Intensity symptoms is moderate at rest and becomes severe with exertion. No other specific changes in health, exacerbating, or alleviating factors identified. Onset (ago): hour(s) Location: head, face and abdomen Radiation: non-radiation Severity: moderate Relieving factors: none Exacerbating factors: movement and other Associated symptoms: Reports dyspnea, headache(s), malaise, nausea and weakness Review of Systems General: Reports: 10 or more systems reviewed and unremarkable except in HPI and below Const: Reports: malaise Resp: Reports: dyspnea GI: Reports: nausea Neuro: Reports: headache(s) PFS ED PFSH: Medical History Bilateral hydronephrosis Bradycardia Chronic anemia CVA (cerebral vascular accident) Dependence on peritoneal dialysis Dilated aortic root ESRD (end stage renal disease) GERD (gastroesophageal reflux disease) History of stroke Hypertension Hypothyroidism Incomplete bladder emptying Polycystic kidney disease Right bundle branch block (RBBB) on electrocardiogram (ECG) Surgical History AV fistula History of colonoscopy 2019 at [facility] History of surgical procedure Peritoneal dialysis catheter placement by Dr. Kamara 2016 S/P hemodialysis catheter insertion (03/13/20) 23cm long exchanged right IJ Removed on 06/11/2020 Family History Mother Chronic kidney disease (CKD) Stroke Father Cancer lung Brother Hypertension Denies family history of Diabetes CAD (coronary artery disease) Clotting disorder Dementia Hyperlipidemia Psychiatric illness Anesthesia complication Bleeding disorder Lung disease Social History Smoking and tobacco status: current every day smoker cigarettes [ Other cigarette details: Half a pack per day for last 20-30 years] and smokeless tobacco Alcohol intake: never Lives independently: Yes Household members: family Housing: House Marital status: Number of children: 1 Current occupational status: disabled Current gender identity: Male Agree to transfusion: Yes Physical Exam Const: COMMON NORMALS: patient oriented x3 and alert GENERAL APPEARANCE: cooperative and well developed HENMT: COMMON NORMALS: normocephalic and atraumatic HEAD & SCALP: normocephalic and atraumatic THROAT: posterior oropharynx normal OTHER: mild R nasal cellulitis Eye: COMMON NORMALS: conjunctivae normal CONJUNCTIVA: Yes conjunctivae normal SCLERA: sclerae normal Neck/C-Spine: COMMON NORMALS: supple GENERAL: Yes trachea midline Resp: COMMON NORMALS: clear to auscultation bilaterally EFFORT & INSPECTION: Yes able to speak in complete sentences AUSCULTATION: clear to auscultation bilaterally Cardio: COMMON NORMALS: regular rate and regular rhythm RATE: regular rate RHYTHM: regular rhythm GI: COMMON NORMALS: Soft to palpation PALPATION: Yes Soft to palpation, Yes Tenderness to palpation present (GI), No Guarding due to palpation present (GI) and No Rigid due to palpation Extremity: GENERAL: Yes normal exam except as noted and No edema Neuro: COMMON NORMALS: patient oriented x3, CN's II-XII intact bilaterally, moves all extremities, no focal motor deficits and no sensory deficits noted SENSORIUM/ORIENTATION: Yes alert and No Orientation impaired Psych: COMMON NORMALS: mental status grossly normal and Normal thought process present THOUGHT PROCESS: Normal thought process present Course Vital Signs: Vital signs: Vital Signs Temperature 97.8 F 07/22/22 20:39 Pulse Rate 86 07/23/22 02:17 Respiratory Rate 15 07/23/22 02:17 Blood Pressure 177/99 07/23/22 02:17 Pulse Oximetry 93 07/23/22 02:17 Oxygen Delivery Me thod 07/22/22 20:39 [facility] - General Adult Medical Decision Making 57-year-old gentleman with complex history presenting with generalized illness. EKG notable for sinus rhythm with left axis deviation, no STEMI Labs with minimal leukocytosis, hemoglobin similar to prior. Metabolic panel without emergent need for hemodialysis. Initial troponin is elevated with pending 2-hour repeat. CT head negative for acute intracranial pathology. Chest x-ray negative for acute pathology. CT abdomen pelvis likely early ileus, otherwise incidental findings discussed with patient. Handed off to Dr. Fontanez pending 2-hour troponin results with likely plan for discharge. Patient improved with analgesia and small fluid bolus. Patient presents here with some generalized malaise and weakness he does have end-stage renal disease and is on dialysis took patient over from Dr. Lovett pending 2-hour troponin which is unchanged from previous his CT scans were normal as well he is stable for discharge he is to follow-up with PCP and return if worsening. Medical Records I reviewed the patient's medical records. Lab Data I reviewed the patient's lab results. 07/22/22 22:25 07/22/22 22:25 Radiology Impressions Chest X-Ray 07/22/22 20:34 IMPRESSION: No acute findings. Head CT 07/22/22 21:46 IMPRESSION: Negative for intracranial hemorrhage or mass effect. Abdomen/Pelvis CT 07/22/22 21:47 IMPRESSION: 1. Slightly increased fluid in portions of the small bowel. Probably incidental finding but could be an early ileus. 2. Chronic complex polycystic kidneys with a persisting masslike lesion in the left kidney, similar to last year. 3. Unchanged small to moderate 4 quadrant ascites. No evidence of hemorrhage. 4. Other chronic findings as described Laboratory Results WBC 10.1 10^3/uL (4.0-10.0) H 07/22/22 22:25 RBC 3.46 10^6/uL (4.1-5.3) L 07/22/22 22:25 Hgb 10.7 g/dL (11.7-16.6) L 07/22/22 22:25 Hct 33.2 % (42.0-52.0) L 07/22/22 22:25 MCV 96.0 fl (80-94) H 07/22/22 22:25 MCH 30.9 pg (28.0-34.0) 07/22/22 22: MCHC 32.2 g/dL (30.0-36.0) 07/22/22 22: RDW 15.4 % (12.1-15.1) H 07/22/22 22:25 Plt Count 285 10^3/cmm (130-400) 07/22/22 22:25 MPV 9.7 fL (7.4-10.4) 07/22/22 22:25 Neut % (Auto) 74.2 % 07/22/22 22: Lymph % (Auto) 15.0 % 07/22/22 22:25 [place] % (Auto) 9.5 % 07/22/22 22:25 Eos % (Auto) 0.5 % 07/22/22 22:25 Baso % (Auto) 0.4 % 07/22/22 22:25 Neut # (Auto) 7.48 10^3/uL (1.8-7.7) 07/22/22 22: Lymph # (Auto) 1.5 10^3/uL (0.8-4.8) 07/22/22 22: [place] # (Auto) 1.0 10^3/uL (0.2-0.9) H 07/22/22 22: Eos # (Auto) 0.1 10^3/uL (0.0-0.8) 07/22/22 22: Baso # (Auto) 0.0 10^3/uL (0.0-0.1) 07/22/22 22: Nucleated RBC % (auto) 0 % 07/22/22: Nucleated RBCs # 0.0 /100WBC 07/22/22 22: PT 13.50 SECONDS (12.1-14.9) 07/22/22 22: INR 1.00 (0.8-1.2) 07/22/22 22:25 Sodium 134 mmol/L (136-145) L 07/22/22 22:25 Potassium 3.3 mmol/L (3.5-5.1) L 07/22/22 22:25 Chloride 95 mmol/L (98-107) L 07/22/22 22: Carbon Dioxide 31 mmol/L (22-29) H 07/22/22 22:25 Anion Gap 11.3 (5-19) 07/22/22 22:25 BUN 14 mg/dL (6-20) 07/22/22 22:25 Creatinine 3.8 mg/dL (0.7-1.2) H 07/22/22 22:25 GFR Calculation 16.5 mL/min (90-130) L 07/22/22 22:25 Glucose 84 mg/dL (65-115) 07/22/22 22:25 Calculated Osmolality 278 mOsm/kg (285-295) L 07/22/22 22:25 Calcium 9.4 mg/dL (8.5-10.5) 07/22/22 22:25 Total Bilirubin 0.3 mg/dL (0.15-1.2) 07/22/22 22:25 AST 16 U/L (0-40) 07/22/22 22:25 ALT 10 U/L (0-41) 07/22/22 22:25 Alkaline Phosphatase 70 U/L (40-130) 07/22/22 22:25 Troponin T Baseline 284 ng/L (0-15) H* 07/22/22 22:25 Troponin T 120 Minute 286.4 ng/L (0-15) H 07/23/22 00:55 Delta Troponin T 2.4 ABS# (0-10) 07/23/22 00:55 Total Protein 5.3 g/dL (6.6-8.7) L 07/22/22 22:25 Albumin 3.2 g/dL (3.5-5.2) L 07/22/22 22:25 Globulin 2.1 g/dL (1.3-4.6) 07/22/22 22:25 Discharge Plan Discharge Patient Disposition: Home Clinical Impression: End stage renal disease on dialysis, Malaise and fatigue, Cellulitis of sidewall of nose Condition: Stable Prescriptions: No Action isosorbide mononitrate 60 mg tablet extended release 24 hr 60 mg PO DAILY simvastatin 40 mg tablet 40 mg PO DAILY cholecalciferol (vitamin D3) 125 mcg (5,000 unit) capsule 125 mcg PO DAILY alfuzosin 10 mg tablet extended release 24 hr 10 mg PO DAILY Rx Instructions: administer after the same meal each day levothyroxine [Synthroid] 50 mcg tablet 50 mcg PO DAILY Qty: 90 0RF fluoxetine [Prozac] 20 mg capsule 20 mg PO DAILY Qty: 30 0RF carvedilol 12.5 mg Tablet 12.5 mg PO BID Qty: 60 0RF amlodipine 5 mg Tablet 10 mg PO DAILY Qty: 30 0RF allopurinol 100 mg Tablet 100 mg PO DAILY pantoprazole 40 mg tablet,delayed release (DR/EC) 40 mg PO DAILY lisinopril 20 mg tablet 20 mg PO DAILY cinacalcet 30 mg tablet 30 mg PO DAILY minoxidil 2.5 mg tablet 5 mg PO BID nifedipine 90 mg tablet extended release 24hr 90 mg PO DAILY hydralazine 50 mg tablet 100 mg PO TID Auryxia 210 mg iron tablet 2 tab PO TID Fosrenol 1,000 mg powder in packet 200 mg PO TID RenaPlex-D 800 mcg-12.5 mg -2,000 unit tablet 1 tab PO DAILY Discharge Orders: Discharge ED (Routine); Ordered 07/23/22 Ordered By: Ghada Fontanez Discharge Diet: Usual diet Discharge Activity: Increase activity as tolerated Patient Instructions: Cellulitis (ED), Dialysis Diet (DC), End Stage Kidney Disease (ED), Opioid Safety Activity Restrictions/Additional Instructions: Thank you for visiting the emergency department. You were seen and evaluated for generalized illness. The exact cause of your symptoms is unclear however does not appear to need inpatient management at this time. You do have a cellulitis on your nose, I will prescribe antibiotics. CT is similar to prior however there is some fluid in the bowel which may reflect abnormal peristalsis, I recommend clear liquid diet and advance as tolerated. Please follow-up with your primary care provider. Return to the emergency department for uncontrolled symptoms or anything else that you are concerned about and feel needs emergency department evaluation. Coding Level of Care Code ED Chemical Processing Laborer for Chg Fwd Documented by User: Ghada Fontanez MD 07/23/22 02:22 HPI - General Adult General: Chief complaint: General Medical Stated complaint: DOES NOT FEEL WELL Time Seen by Provider: 07/22/22 21:28 [facility] ED PFSH: Medical History Bilateral hydronephrosis Bradycardia Chronic anemia CVA (cerebral vascular accident) Dependence on peritoneal dialysis Dilated aortic root ESRD (end stage renal disease) GERD (gastroesophageal reflux disease) History of stroke Hypertension Hypothyroidism Incomplete bladder emptying Polycystic kidney disease Right bundle branch block (RBBB) on electrocardiogram (ECG) Surgical History AV fistula History of colonoscopy 2019 at [facility] History of surgical procedure Peritoneal dialysis catheter placement by Dr. Kamara 2015 S/P hemodialysis catheter insertion (03/13/20) 23cm long exchanged right IJ Removed on 06/11/2020 Family History Mother Chronic kidney disease (CKD) Stroke Father Cancer lung Brother Hypertension Denies family history of Diabetes CAD (coronary artery disease) Clotting disorder Dementia Hyperlipidemia Psychiatric illness Anesthesia complication Bleeding disorder Lung disease Social History Smoking and tobacco status: current every day smoker cigarettes [ Other cigarette details: Half a pack per day for last 20-30 years] and smokeless tobacco Alcohol intake: never Lives independently: Yes Household members: family Housing: House Marital status: Number of children: 1 Current occupational status: disabled Current gender identity: Male Agree to transfusion: Yes Course Vital Signs: Vital signs: Vital Signs Temperature 97.8 F 07/22/22 20:39 Pulse Rate 86 07/23/22 02:17 Respiratory Rate 15 07/23/22 02:17 Blood Pressure 177/99 07/23/22 02:17 Pulse Oximetry 93 07/23/22 02:17 Oxygen Delivery Me thod 07/22/22 20:39 MDM - General Adult Medical Decision Making Patient presents here with some generalized malaise and weakness he does have end-stage renal disease and is on dialysis took patient over from Dr. Lovett pending 2-hour troponin which is unchanged from previous his CT scans were normal as well he is stable for discharge he is to follow-up with PCP and return if worsening. Lab Data 07/22/22 22:25 07/22/22 22:25 Radiology Impressions Chest X-Ray 07/22/22 20:34 IMPRESSION: No acute findings. Head CT 07/22/22 21:46 IMPRESSION: Negative for intracranial hemorrhage or mass effect. Abdomen/Pelvis CT 07/22/22 21:47 IMPRESSION: 1. Slightly increased fluid in portions of the small bowel. Probably incidental finding but could be an early ileus. 2. Chronic complex polycystic kidneys with a persisting masslike lesion in the left kidney, similar to last year. 3. Unchanged small to moderate 4 quadrant ascites. No evidence of hemorrhage. 4. Other chronic findings as described Laboratory Results WBC 10.1 10^3/uL (4.0-10.0) H 07/22/22 22:25 RBC 3.46 10^6/uL (4.1-5.3) L 07/22/22 22: Hgb 10.7 g/dL (11.7-16.6) L 07/22/22 22: Hct 33.2 % (42.0-52.0) L 07/22/22: MCV 96.0 fl (80-94) H 07/22/22: MCH 30.9 pg (28.0-34.0) 07/22/22: MCHC 32.2 g/dL (30.0-36.0) 07/22/22: RDW 15.4 % (12.1-15.1) H 07/22/22: Plt Count 285 10^3/cmm (130-400) 07/22/22: MPV 9.7 fL (7.4-10.4) 07/22/22: Neut % (Auto) 74.2 % 07/22/22: Lymph % (Auto) 15.0 % 07/22/22: [place] % (Auto) 9.5 % 07/22/22: Eos % (Auto) 0.5 % 07/22/22: Baso % (Auto) 0.4 % 07/22/22: Neut # (Auto) 7.48 10^3/uL (1.8-7.7) 07/22/22: Lymph # (Auto) 1.5 10^3/uL (0.8-4.8) 07/22/22: [place] # (Auto) 1.0 10^3/uL (0.2-0.9) H 07/22/22 22:25 Eos # (Auto) 0.1 10^3/uL (0.0-0.8) 07/22/22: Baso # (Auto) 0.0 10^3/uL (0.0-0.1) 07/22/22 22:25 Nucleated RBC % (auto) 0 % 07/22/22 22:25 Nucleated RBCs # 0.0 /100WBC 07/22/22 22:25 PT 13.50 SECONDS (12.1-14.9) 07/22/22 22:25 INR 1.00 (0.8-1.2) 07/22/22 22:25 Sodium 134 mmol/L (136-145) L 07/22/22 22:25 Potassium 3.3 mmol/L (3.5-5.1) L 07/22/22 22:25 Chloride 95 mmol/L (98-107) L 07/22/22 22:25 Carbon Dioxide 31 mmol/L (22-29) H 07/22/22 22:25 Anion Gap 11.3 (5-19) 07/22/22 22:25 BUN 14 mg/dL (6-20) 07/22/22 22:25 Creatinine 3.8 mg/dL (0.7-1.2) H 07/22/22 22:25 GFR Calculation 16.5 mL/min (90-130) L 07/22/22 22:25 Glucose 84 mg/dL (65-115) 07/22/22 22:25 Calculated Osmolality 278 mOsm/kg (285-295) L 07/22/22 22:25 Calcium 9.4 mg/dL (8.5-10.5) 07/22/22 22:25 Total Bilirubin 0.3 mg/dL (0.15-1.2) 07/22/22 22:25 AST 16 U/L (0-40) 07/22/22 22:25 ALT 10 U/L (0-41) 07/22/22 22:25 Alkaline Phosphatase 70 U/L (40-130) 07/22/22 22:25 Troponin T Baseline 284 ng/L (0-15) H* 07/22/22 22:25 Troponin T 120 Minute 286.4 ng/L (0-15) H 07/23/22 00:55 Delta Troponin T 2.4 ABS# (0-10) 07/23/22 00:55 Total Protein 5.3 g/dL (6.6-8.7) L 07/22/22 22:25 Albumin 3.2 g/dL (3.5-5.2) L 07/22/22 22:25 Globulin 2.1 g/dL (1.3-4.6) 07/22/22 22:25 Discharge Plan Discharge Patient Disposition: Home Clinical Impression: End stage renal disease on dialysis, Malaise and fatigue, Cellulitis of sidewall of nose Condition: Stable Prescriptions: No Action isosorbide mononitrate 60 mg tablet extended release 24 hr 60 mg PO DAILY simvastatin 40 mg tablet 40 mg PO DAILY cholecalciferol (vitamin D3) 125 mcg (5,000 unit) capsule 125 mcg PO DAILY alfuzosin 10 mg tablet extended release 24 hr 10 mg PO DAILY Rx Instructions: administer after the same meal each day levothyroxine [Synthroid] 50 mcg tablet 50 mcg PO DAILY Qty: 90 0RF fluoxetine [Prozac] 20 mg capsule 20 mg PO DAILY Qty: 30 0RF carvedilol 12.5 mg Tablet 12.5 mg PO BID Qty: 60 0RF amlodipine 5 mg Tablet 10 mg PO DAILY Qty: 30 0RF allopurinol 100 mg Tablet 100 mg PO DAILY pantoprazole 40 mg tablet,delayed release (DR/EC) 40 mg PO DAILY lisinopril 20 mg tablet 20 mg PO DAILY cinacalcet 30 mg tablet 30 mg PO DAILY minoxidil 2.5 mg tablet 5 mg PO BID nifedipine 90 mg tablet extended release 24hr 90 mg PO DAILY hydralazine 50 mg tablet 100 mg PO TID Auryxia 210 mg iron tablet 2 tab PO TID Fosrenol 1,000 mg powder in packet 200 mg PO TID RenaPlex-D 800 mcg-12.5 mg -2,000 unit tablet 1 tab PO DAILY Discharge Orders: Discharge ED (Routine); Ordered 07/23/22 Ordered By: Ghada Fontanez Discharge Diet: Usual diet Discharge Activity: Increase activity as tolerated Patient Instructions: Cellulitis (ED), Dialysis Diet (DC), End Stage Kidney Disease (ED), Opioid Safety Activity Restrictions/Additional Instructions: Thank you for visiting the emergency department. You were seen and evaluated for generalized illness. The exact cause of your symptoms is unclear however does not appear to need inpatient management at this time. You do have a cellulitis on your nose, I will prescribe antibiotics. CT is similar to prior however there is some fluid in the bowel which may reflect abnormal peristalsis, I recommend clear liquid diet and advance as tolerated. Please follow-up with your primary care provider. Return to the emergency department for uncontrolled symptoms or anything else that you are concerned about and feel needs emergency department evaluation. Coding Level of Care Code ED Chemical Processing Laborer for Eric Sandhu
--- NOTE | 2022-07-22 21:46 | CTR_ITS ---
PROCEDURE INFORMATION: Exam: CT Head Without Contrast Exam date and time: 07/22/2022 10:32 PM Age: 57 years old Clinical indication: Pain; Headache; Patient HX: C/O WILL. ; Additional info: Headache, vision changes post dialysis TECHNIQUE: Imaging protocol: Computed tomography of the head without contrast. Radiation optimization: All CT scans at this facility use at least one of these dose optimization techniques: automated exposure control; mA and/or kV adjustment per patient size (includes targeted exams where dose is matched to clinical indication); or iterative reconstruction. REPORTING DATA: Count of CT and Cardiac NM exams in prior 12 months: This patient has received 2 known CTs and 0 known cardiac nuclear medicine studies in the 12 months prior to the current study. COMPARISON: CT head wo con* [id number] 08/08/2020 8:58 PM RADIATION DOSE METRICS: Total DLP (mGy-cm): 1062.38 FINDINGS: Brain: Moderate diffuse white matter disease likely reflecting chronic microvascular ischemic changes. Cerebral ventricles: No ventriculomegaly. Paranasal sinuses: Visualized sinuses are unremarkable. No fluid levels. Mastoid air cells: Visualized mastoid air cells are well aerated. Bones/joints: Unremarkable. No acute fracture. Soft tissues: Unremarkable. CT/CT head wo con* [id number] IMPRESSION: Negative for intracranial hemorrhage or mass effect.
--- NOTE | 2022-07-22 21:47 | CTR_ITS ---
PROCEDURE INFORMATION: Exam: CT Abdomen And Pelvis Without Contrast Exam date and time: 07/22/2022 10:35 PM Age: 57 years old Clinical indication: Abdominal pain; Generalized; Prior surgery; Surgery type: Dialysis cath; Patient HX: C/O diffuse abd pain post dialysis earlier today. History of polycystic kidney disease. ; Additional info: Abd pain, generalized malaise, diarrhea, HX dialysis TECHNIQUE: Imaging protocol: Computed tomography of the abdomen and pelvis without contrast. Radiation optimization: All CT scans at this facility use at least one of these dose optimization techniques: automated exposure control; mA and/or kV adjustment per patient size (includes targeted exams where dose is matched to clinical indication); or iterative reconstruction. REPORTING DATA: Count of CT and Cardiac NM exams in prior 12 months: This patient has received 2 known CTs and 0 known cardiac nuclear medicine studies in the 12 months prior to the current study. COMPARISON: CT abdomen pelvis w con* [id number] 04/14/2022 3:20 PM RADIATION DOSE METRICS: Total DLP (mGy-cm): 783.7 FINDINGS: Lungs: The lung bases are clear except for incidental dependent atelectasis. Coronary arteries: Calcified plaque throughout the coronary arteries. Liver: Several probable sub cm hepatic cysts are unchanged. Gallbladder and bile ducts: Normal. No calcified stones. No ductal dilation. Pancreas: Normal. No ductal dilation. Spleen: Normal. No splenomegaly. Adrenal glands: Normal. No mass. Kidneys and ureters: Bilateral polycystic kidneys remains severely enlarged and are diffusely distorted. In the left mid renal pole there is a persisting complex masslike lesion with solid, calcific and cystic components measuring 10 x 6.3 cm which is similar to last year. Many of the cysts in each kidney are complex but overall are unchanged. Stomach and bowel: Scattered gas and fluid in the small bowel measuring no more than 2.7 cm. Incidental finding versus minimal ileus. No colonic distention. There is scattered formed stool in the proximal and distal colon Appendix: No evidence of appendicitis. Intraperitoneal space: There is persisting small to moderate low-density ascites in all 4 quadrants. No evidence of hemorrhage or hematoma. Vasculature: The aorta and branch vessels are heavily atherosclerotic. Lymph nodes: Unremarkable. No enlarged lymph nodes. Urinary bladder: Chronic urinary bladder wall thickening. Reproductive: Unremarkable as visualized. Bones/joints: Unremarkable. No acute fracture. Soft tissues: A previously seen left lower quadrant rectus hematoma has resolved. CT/CT abdomen pelvis wo con [id number] IMPRESSION: 1. Slightly increased fluid in portions of the small bowel. Probably incidental finding but could be an early ileus. 2. Chronic complex polycystic kidneys with a persisting masslike lesion in the left kidney, similar to last year. 3. Unchanged small to moderate 4 quadrant ascites. No evidence of hemorrhage. 4. Other chronic findings as described
--- NOTE | 2022-07-22 21:50 | ECG_ITS ---
[facility] Test Date: 2022-07-22 Pat Name: Navneet Savage Department: Room: Gender: Male Outsole Handler: : 1965 Requested By: Ghada Fontanez Order Number: [id number] Nate MD: Saurabh Fitzpatrick M.D. Measurements Intervals [place] Rate: 74 P: 29 NE: 149 QRS: -24 QRSD: 107 T: 44 QT: 427 QTc: 475 Interpretive Statements SINUS RHYTHM BORDERLINE LEFT AXIS DEVIATION [QRS AXIS < -20] MINIMAL VOLTAGE CRITERIA FOR LVH, CONSIDER NORMAL VARIANT [MEETS CRITERIA IN ONE OF: R(aVL), S(V1), R(V5), R(V5/V6)+S(V1)] Compared to ECG 07/17/2022 04:50:15 Myocardial infarct finding no longer present Electronically Signed On 07-23-2022 18:05:27 AUTOMOTIVE LUBE TECHNICIAN by Saurabh Fitzpatrick M.D. [id number]
[2022-07-22 22:17] VITALS: BP 168/88; PULSE 82; RESP 17; O2SAT 96
[2022-07-22 22:21] VITALS: RESP 21
[2022-07-22] MEDS: morphine 4 mg/mL SDV 1 mL IVP (22:21)
[2022-07-22] MEDS: sodium chloride 0.9% 500 ML 999 ML IV (22:23)
[2022-07-22 22:47] LABS: Basophils % 0.4 %; Eosinophils # 0.1 10^3/uL (0.0-0.8); Eosinophils % 0.5 %; Hematocrit 33.2 % (42.0-52.0); Hemoglobin 10.7 g/dL (11.7-16.6); Lymphocytes # 1.5 10^3/uL (0.8-4.8); Mean Corpuscular HGB Conc 32.2 g/dL (30.0-36.0); Mean Corpuscular Hemoglobin 30.9 pg (28.0-34.0); Mean Platelet Volume 9.7 fL (7.4-10.4); Monocytes % 9.5 %; Neutrophils # 7.48 10^3/uL (1.8-7.7); Neutrophils % 74.2 %; Nucleated Red Blood Cells % 0 %; Platelet Count 285 10^3/cmm (130-400); Red Blood Count 3.46 10^6/uL (4.1-5.3); Red Cell Distribution Width 15.4 % (12.1-15.1); White Blood Count 10.1 10^3/uL (4.0-10.0)
[2022-07-22 23:02] LABS: Alanine Aminotransferase 10 U/L (0-41); Albumin Level 3.2 g/dL (3.5-5.2); Alkaline Phosphatase 70 U/L (40-130); Anion Gap 11.3 (5-19); Aspartate Amino Transferase 16 U/L (0-40); Blood Urea Nitrogen 14 mg/dL (6-20); Calcium 9.4 mg/dL (8.5-10.5); Carbon Dioxide 31 mmol/L (22-29); Chloride 95 mmol/L (98-107); Globulin 2.1 g/dL (1.3-4.6); Glomerular Filtration Rate 16.5 mL/min (90-130); Glucose 84 mg/dL (65-115); Osmolality Calculated 278 mOsm/kg (285-295); Potassium 3.3 mmol/L (3.5-5.1); Sodium 134 mmol/L (136-145); Total Bilirubin 0.3 mg/dL (0.15-1.2); Total Protein 5.3 g/dL (6.6-8.7)
[2022-07-22 23:08] LABS: Troponin(5th) Baseline 284 ng/L (0-15)
--- NOTE | 2022-07-22 23:08 | ECG_ITS ---
[facility] Test Date: 2022-07-22 Pat Name: Navneet Savage Department: Room: Gender: Male Specialist Field Engineer: : 1965 Requested By: Ghada Fontanez Order Number: [id number] Nate MD: Saurabh Fitzpatrick M.D. Measurements Intervals [place] Rate: 81 P: 34 AL: 146 QRS: -30 QRSD: 108 T: 62 QT: 426 QTc: 496 Interpretive Statements SINUS RHYTHM SEPTAL MYOCARDIAL INFARCTION , OF INDETERMINATE AGE [40+ ms Q WAVE IN V1/V2] Compared to ECG 07/22/2022 21:50:16 Myocardial infarct finding now present Electronically Signed On 07-23-2022 18:13:02 HELICOPTER TECHNICIAN by Saurabh Fitzpatrick M.D. [id number]
[2022-07-23 01:15] VITALS: BP 162/71; PULSE 82; RESP 17; O2SAT 96
[2022-07-23 01:51] LABS: Troponin 5 2HR Delta 2.4 ABS# (0-10)
[2022-07-23 01:52] LABS: Troponin 5 2HR 286.4 ng/L (0-15)
[2022-07-23 02:17] VITALS: BP 177/99; PULSE 86; RESP 15; O2SAT 93
--- NOTE | 2022-07-29 14:56 | DCPLANNER ---
07.24.22 - TCM called patient due to no primary care physician listed in chart - patient states they see Dr. Ortiz
== END 2022-07-23 02:18 | disposition home or self-care (01) ==
PROVIDERS: Emergency Medicine; Emergency Provider Emergency Medicine; PCP Family Medicine
DX: R53.81 Other malaise (principal); R53.83 Other fatigue; J34.0 Abscess, furuncle and carbuncle of nose; N18.6 End stage renal disease; Z99.2 Dependence on renal dialysis; I10 Essential (primary) hypertension; Z86.73 Personal history of transient ischemic attack (TIA), and cerebral infarction without residual deficits
CPT/HCPCS: 70450; 71045; 74176; 80053; 84484; 85025; 85610; 87040; 93005; 96361; 96374; 99285; J2270; J7040

== ENCOUNTER 2022-07-28 10:36 | Day surgery (SDC) | payer MEDICARE, MEDICAID, SELFPAY ==
[2022-07-28 11:07] VITALS: BP 182/98; PULSE 76; RESP 18; TEMP 36.6; O2SAT 97
--- NOTE | 2022-07-28 11:11 | US_ITS ---
WS: [id number] ULTRASOUND-GUIDED THERAPEUTIC PARACENTESIS Procedure, risks, and complications have been explained to the patient. Consent is obtained. Utilizing aseptic technique and 1% buffered lidocaine, a small dermatome was made through which a 5 F rench Yueh catheter was inserted. Approximately 5300 ml of clear peritoneal fluid was obtained witho ut difficulty. No complications encountered. US/US paracentesis abd w [id number] IMPRESSION: Uncomplicated paracentesis yielding 5300 ml of peritoneal fluid.
[2022-07-28] MEDS: albumin 75 G/300 ML BAG 300 G IV (12:00)
== END 2022-07-28 12:45 | disposition home or self-care (01) ==
LOC: GILAB 10:39
PROVIDERS: Radiology Diagnostic Radiology; Visit Provider Internal Medicine Nephrology
PROC: (CPT 49082; principal; 2022-07-28 12:00)
DX: R18.8 Other ascites (principal)
CPT/HCPCS: 49083; 96365; P9046

== ENCOUNTER 2022-08-02 04:44 | Emergency (ER) | payer MEDICARE, MEDICAID, SELFPAY ==
[2022-08-02 04:45] VITALS: BP 169/78; PULSE 85; RESP 16; TEMP 36.6; O2SAT 96; BMI 27.3
--- NOTE | 2022-08-02 04:51 | ECG_ITS ---
[facility] Test Date: 2022-08-02 Pat Name: Navneet Savage Department: Room: Gender: Male Data Reviewer: : 1965 Requested By: Ghada Fontanez Order Number: [id number] Nate MD: China Wheat M.D. Measurements Intervals [place] Rate: 75 P: 20 NV: 140 QRS: -43 QRSD: 107 T: 39 QT: 424 QTc: 477 Interpretive Statements SINUS RHYTHM LEFT AXIS DEVIATION [QRS AXIS < -30] MODERATE VOLTAGE CRITERIA FOR LVH, CONSIDER NORMAL VARIANT [MEETS CRITERIA IN ONE OF: R(aVL), S(V1), R(V5), R(V5/V6)+S(V1)] Compared to ECG 07/22/2022 23:08:30 Left-axis deviation now present Myocardial infarct finding no longer present Electronically Signed On 08-02-2022 19:39:49 CDT by China Wheat M.D. [id number]
--- NOTE | 2022-08-02 04:51 | XRR_ITS ---
PROCEDURE INFORMATION: Exam: XR Chest Exam date and time: 08/02/2022 5:10 AM Age: 57 years old Clinical indication: Pain; Chest pressure; Additional info: Cp TECHNIQUE: Imaging protocol: Radiologic exam of the chest. Views: 1 view. Total images: 699 COMPARISON: CR (CHEST, ) 07/22/2022 9:14 PM FINDINGS: Lungs: No acute focal pulmonary opacities are detected. Pleural spaces: Unremarkable. No pleural effusion. No pneumothorax. Heart/Mediastinum: Mild cardiomegaly. Vasculature: Atherosclerosis is evident. Bones/joints: Unremarkable. XR/XR chest 1V portable [id number] IMPRESSION: 1. Mild cardiomegaly. 2. No acute focal pulmonary opacities are detected.
[2022-08-02 05:11] LABS: Basophils % 0.4 %; Eosinophils # 0.1 10^3/uL (0.0-0.8); Eosinophils % 1.3 %; Hematocrit 36.6 % (42.0-52.0); Hemoglobin 11.3 g/dL (11.7-16.6); Lymphocytes # 1.3 10^3/uL (0.8-4.8); Lymphocytes % 14.3 %; Mean Corpuscular HGB Conc 30.9 g/dL (30.0-36.0); Mean Corpuscular Hemoglobin 31.4 pg (28.0-34.0); Mean Corpuscular Volume 101.7 fl (80-94); Mean Platelet Volume 9.8 fL (7.4-10.4); Monocytes # 0.9 10^3/uL (0.2-0.9); Monocytes % 9.7 %; Neutrophils # 6.91 10^3/uL (1.8-7.7); Neutrophils % 74.1 %; Nucleated Red Blood Cells % 0 %; Platelet Count 182 10^3/cmm (130-400); Red Cell Distribution Width 16.7 % (12.1-15.1); White Blood Count 9.3 10^3/uL (4.0-10.0)
--- NOTE | 2022-08-02 05:12 | ED_ITS ---
HPI - General Adult General: Chief complaint: General Medical Stated complaint: High BP, chest feels tight Time Seen by Provider: 08/02/22 04:53 Source: patient Mode of arrival: ambulatory Limitations: no limitations History of Present Illness: 57-year-old male who history end-stage renal disease he is on dialysis he received dialysis on Wednesday states tonight his blood pressure got up he is having some sharp pains in his right side of his chest he declined it before arrival his blood pressure here is improved he states his pain is improved as well denies any shortness of breath. Associated symptoms: Reports chest pain; Deny dyspnea, headache(s), nausea, rash or vomiting Review of Systems Const: Denies: fever(s), chills, body aches or change in appetite Eyes: Denies: blurry vision or eye discomfort ENMT: Denies: throat pain or dental pain Card: Reports: chest pain Resp: Denies: dyspnea GI: Denies: abdominal pain, nausea, vomiting or diarrhea : Denies: dysuria Musc: Denies: neck pain or back pain Skin/Breast: Denies: rash Neuro: Denies: headache(s) Psych: Denies: depression Lucas/Lymph: Denies: easy bruising All/Imm: Denies: urticaria PFSH ED PFSH: Medical History Bilateral hydronephrosis Bradycardia Chronic anemia CVA (cerebral vascular accident) Dependence on peritoneal dialysis Dilated aortic root ESRD (end stage renal disease) GERD (gastroesophageal reflux disease) History of stroke Hypertension Hypothyroidism Incomplete bladder emptying Polycystic kidney disease Right bundle branch block (RBBB) on electrocardiogram (ECG) Surgical History AV fistula History of colonoscopy 2019 at [facility] History of surgical procedure Peritoneal dialysis catheter placement by Dr. Kamara 2016 S/P hemodialysis catheter insertion (03/13/20) 23cm long exchanged right IJ Removed on 06/11/2020 Family History Mother Chronic kidney disease (CKD) Stroke Father Cancer lung Brother Hypertension Denies family history of Diabetes CAD (coronary artery disease) Clotting disorder Dementia Hyperlipidemia Psychiatric illness Anesthesia complication Bleeding disorder Lung disease Social History Smoking and tobacco status: current every day smoker cigarettes [ Other cigarette details: Half a pack per day for last 20-30 years] and smokeless tobacco Alcohol intake: never Lives independently: Yes Household members: family Housing: House Marital status: Number of children: 1 Current occupational status: disabled Current gender identity: Male Agree to transfusion: Yes Physical Exam Const: COMMON NORMALS: no acute distress, patient oriented x3 and healthy appearing HENMT: COMMON NORMALS: normocephalic and atraumatic HEAD & SCALP: normocep halic and atraumatic Eye: COMMON NORMALS: Equal, round and reactive pupils present and EOMs intact bilaterally PUPIL: Yes Equal, round and reactive pupils present Neck/C-Spine: COMMON NORMALS: full ROM and supple Chest: COMMONS NORMALS: normal inspection of the chest and normal palpation of entire chest wall Resp: COMMON NORMALS: normal respiratory effort, No retractions, No use of accessory muscles and clear to auscultation bilaterally AUSCULTATION: clear to auscultation bilaterally Cardio: COMMON NORMALS: regular rate, regular rhythm and No murmurs present (Cardio) RATE: regular rate RHYTHM: regular rhythm GI: COMMON NORMALS: Normal to inspection, nondistended, normoactive bowel sounds present, Soft to palpation, non-tender and no masses PALPATION: Yes Soft to palpation Extremity: COMMON NORMALS: normal to inspection and full ROM Neuro: COMMON NORMALS: patient oriented x3, moves all extremities and no focal motor deficits Psych: COMMON NORMALS: mental status grossly normal, Normal thought process present and cooperative THOUGHT PROCESS: Normal thought process present Skin: COMMON NORMALS: no rashes or lesions noted and no wounds GENERAL SKIN EXAM: no rashes or lesions noted Course Vital Signs: Vital signs: Vital Signs Temperature 97.8 F 08/02/22 04:45 Pulse Rate 77 08/02/22 05:15 Respiratory Rate 12 08/02/22 05:15 Blood Pressure 136/79 08/02/22 05:15 Pulse Oximetry 95 08/02/22 05:15 Oxygen Delivery Me thod 08/02/22 04:45 MDM - General Adult Medical Decision Making Patient presents with hypertension his chronic hypertension is on dialysis his blood pressure is much improved here is 128/66 he is chest pain is resolved with that as well as troponin here is at his baseline he is want to go home I feel he is stable for discharge at this time no signs of acute coronary syndrome Lab Data 08/02/22 05:04 08/02/22 05:04 Laboratory Results WBC 9.3 10^3/uL (4.0-10.0) 08/02/22 05:04 RBC 3.60 10^6/uL (4.1-5.3) L 08/02/22 05:04 Hgb 11.3 g/dL (11.7-16.6) L 08/02/22 05:04 Hct 36.6 % (42.0-52.0) L 08/02/22 05:04 MCV 101.7 fl (80-94) H 08/02/22 05:04 MCH 31.4 pg (28.0-34.0) 08/02/22 05:04 MCHC 30.9 g/dL (30.0-36.0) 08/02/22 05:04 RDW 16.7 % (12.1-15.1) H 08/02/22 05:04 Plt Count 182 10^3/cmm (130-400) 08/02/22 05:04 MPV 9.8 fL (7.4-10.4) 08/02/22 05:04 Neut % (Auto) 74.1 % 08/02/22 05:04 Lymph % (Auto) 14.3 % 08/02/22 05:04 [place] % (Auto) 9.7 % 08/02/22 05:04 Eos % (Auto) 1.3 % 08/02/22 05:04 Baso % (Auto) 0.4 % 08/02/22 05:04 Neut # (Auto) 6.91 10^3/uL (1.8-7.7) 08/02/22 05:04 Lymph # (Auto) 1.3 10^3/uL (0.8-4.8) 08/02/22 05:04 [place] # (Auto) 0.9 10^3/uL (0.2-0.9) 08/02/22 05:04 Eos # (Auto) 0.1 10^3/uL (0.0-0.8) 08/02/22 05:04 Baso # (Auto) 0.0 10^3/uL (0.0-0.1) 08/02/22 05:04 Nucleated RBC % (auto) 0 % 08/02/22 05:04 Nucleated RBCs # 0.0 /100WBC 08/02/22 05:04 PT 13.10 SECONDS (12.1-14.9) 08/02/22 05:04 INR 0.96 (0.8-1.2) 08/02/22 05:04 Sodium 137 mmol/L (136-145) 08/02/22 05:04 Potassium 4.5 mmol/L (3.5-5.1) 08/02/22 05:04 Chloride 99 mmol/L (98-107) 08/02/22 05:04 Carbon Dioxide 23 mmol/L (22-29) 08/02/22 05:04 Anion Gap 19.5 (5-19) H 08/02/22 05:04 BUN 54 mg/dL (6-20) H 08/02/22 05:04 Creatinine 7.4 mg/dL (0.7-1.2) H* 08/02/22 05:04 GFR Calculation 7.6 mL/min (90-130) L 08/02/22 05:04 Glucose 103 mg/dL (65-115) 08/02/22 05:04 Calculated Osmolality 299 mOsm/kg (285-295) H 08/02/22 05:04 Calcium 9.4 mg/dL (8.5-10.5) 08/02/22 05:04 Total Bilirubin 0.2 mg/dL (0.15-1.2) 08/02/22 05:04 AST 19 U/L (0-40) 08/02/22 05:04 ALT 12 U/L (0-41) 08/02/22 05:04 Alkaline Phosphatase 76 U/L (40-130) 08/02/22 05:04 Troponin T Baseline 259 ng/L (0-15) H* 08/02/22 05:04 Total Protein 5.7 g/dL (6.6-8.7) L 08/02/22 05:04 Albumin 3.3 g/dL (3.5-5.2) L 08/02/22 05:04 Globulin 2.4 g/dL (1.3-4.6) 08/02/22 05:04 EKG Data EKG 1: I personally reviewed and interpreted this EKG as follows: EKG interpretation date: 08/02/22 EKG interpretation time: 04:56 Interpretation: nsr hr [address] or t wave abnormalities qrs 107 qtc 454 Discharge Plan Discharge Patient Disposition: Home Clinical Impression: Hypertension, Chest pain Condition: Stable Prescriptions: No Action isosorbide mononitrate 60 mg tablet extended release 24 hr 60 mg PO DAILY simvastatin 40 mg tablet 40 mg PO DAILY cholecalciferol (vitamin D3) 125 mcg (5,000 unit) capsule 125 mcg PO DAILY alfuzosin 10 mg tablet extended release 24 hr 10 mg PO DAILY Rx Instructions: administer after the same meal each day levothyroxine [Synthroid] 50 mcg tablet 50 mcg PO DAILY Qty: 90 0RF fluoxetine [Prozac] 20 mg capsule 20 mg PO DAILY Qty: 30 0RF carvedilol 12.5 mg Tablet 12.5 mg PO BID Qty: 60 0RF amlodipine 5 mg Tablet 10 mg PO DAILY Qty: 30 0RF allopurinol 100 mg Tablet 100 mg PO DAILY pantoprazole 40 mg tablet,delayed release (DR/EC) 40 mg PO DAILY lisinopril 20 mg tablet 20 mg PO DAILY cinacalcet 30 mg tablet 30 mg PO DAILY minoxidil 2.5 mg tablet 5 mg PO BID nifedipine 90 mg tablet extended release 24hr 90 mg PO DAILY hydralazine 50 mg tablet 100 mg PO TID Auryxia 210 mg iron tablet 2 tab PO TID Fosrenol 1,000 mg powder in packet 200 mg PO TID RenaPlex-D 800 mcg-12.5 mg -2,000 unit tablet 1 tab PO DAILY Discharge Orders: Discharge ED (Routine); Ordered 08/02/22 Ordered By: Ghada Fontanez Discharge Diet: Advance as tolerated Discharge Activity: Resume usual activity Patient Instructions: Chest Pain (ED) Coding Level of Care Code ED Information Technology Auditor for Eric Sandhu
[2022-08-02 05:15] VITALS: BP 136/79; PULSE 77; RESP 12; O2SAT 95
[2022-08-02 05:22] LABS: INR 0.96 (0.8-1.2)
[2022-08-02 05:32] LABS: Alanine Aminotransferase 12 U/L (0-41); Albumin Level 3.3 g/dL (3.5-5.2); Alkaline Phosphatase 76 U/L (40-130); Anion Gap 19.5 (5-19); Aspartate Amino Transferase 19 U/L (0-40); Blood Urea Nitrogen 54 mg/dL (6-20); Calcium 9.4 mg/dL (8.5-10.5); Carbon Dioxide 23 mmol/L (22-29); Chloride 99 mmol/L (98-107); Globulin 2.4 g/dL (1.3-4.6); Glomerular Filtration Rate 7.6 mL/min (90-130); Glucose 103 mg/dL (65-115); Osmolality Calculated 299 mOsm/kg (285-295); Potassium 4.5 mmol/L (3.5-5.1); Sodium 137 mmol/L (136-145); Total Bilirubin 0.2 mg/dL (0.15-1.2); Total Protein 5.7 g/dL (6.6-8.7)
[2022-08-02 05:38] LABS: Troponin(5th) Baseline 259 ng/L (0-15)
[2022-08-02 05:50] VITALS: BP 128/66; PULSE 78; RESP 14; O2SAT 96
[2022-08-02 07:05] LABS: NT Pro B Type Natriuretic Pept 26205 pg/mL (0-125)
--- NOTE | 2022-08-04 16:07 | DCPLANNER ---
Addendum entered by Constance Penaloza 08/05/22 12:42: manager spring called patient due to no primary care physician - no answer at this time Original Note: TCM called patient due to no primary care physician - no answer at this time.
== END 2022-08-02 05:51 | disposition home or self-care (01) ==
PROVIDERS: Emergency Provider Emergency Medicine
DX: R07.9 Chest pain, unspecified (principal); F17.210 Nicotine dependence, cigarettes, uncomplicated; F17.220 Nicotine dependence, chewing tobacco, uncomplicated; Z86.73 Personal history of transient ischemic attack (TIA), and cerebral infarction without residual deficits; I12.0 Hypertensive chronic kidney disease with stage 5 chronic kidney disease or end stage renal disease; N18.6 End stage renal disease; Z99.2 Dependence on renal dialysis
CPT/HCPCS: 71045; 80053; 83880; 84484; 85025; 85610; 93005; 99285

== ENCOUNTER 2022-08-04 10:43 | Day surgery (SDC) | payer MEDICARE, MEDICAID, SELFPAY ==
--- NOTE | 2022-08-04 10:52 | US_ITS ---
WS: [id number] ULTRASOUND-GUIDED PARACENTESIS CLINICAL INFORMATION: ASCITES COMPARISON: None. Procedure Informed consent: The risks, benefits, and alternatives of the procedure were discussed with the lisa ent. Verbal and written consent was obtained. Timeout: A timeout was performed to confirm the correct patient, procedure, and site. Preparation: A suitable skin site was identified. The patient was prepped and draped in usual sterile fashion. Lidocaine 1% was used for local anesthesia. Catheter: 4 [place] One-step Yueh catheter. Side: RIGHT Lower quadrant. Fluid Volume: 6150 ml Color: Clear yellow DISPOSITION: Discarded safely. Complications: None. Patient disposition: Discharged from the department in stable condition. US/US paracentesis abd w [id number] IMPRESSION: Uncomplicated ultrasound-guided paracentesis. Removal of 6150 cc
[2022-08-04 10:55] VITALS: BP 136/76; PULSE 78; RESP 16; TEMP 36.2; O2SAT 96; BMI 29.0
[2022-08-04] MEDS: albumin 75 G/300 ML BAG 60 G IV (11:37)
== END 2022-08-04 12:25 | disposition home or self-care (01) ==
LOC: GILAB 10:46
PROVIDERS: Visit Provider Internal Medicine Nephrology
PROC: (CPT 49082; principal; 2022-08-04 12:00)
DX: R18.8 Other ascites (principal)
CPT/HCPCS: 49083; P9046

== ENCOUNTER 2022-08-06 19:38 | Emergency (ER) | payer MEDICARE, MEDICAID, SELFPAY ==
[2022-08-06 20:02] VITALS: BP 196/87; PULSE 80; RESP 20; TEMP 36.5; O2SAT 95; BMI 29.0
--- NOTE | 2022-08-06 20:21 | XRR_ITS ---
PROCEDURE INFORMATION: Exam: XR Chest Exam date and time: 08/06/2022 8:27 PM Age: 57 years old Clinical indication: Pain; Chest pressure; Additional info: SOB TECHNIQUE: Imaging protocol: Radiologic exam of the chest. Views: 1 view. COMPARISON: CR (CHEST, ) 08/02/2022 5:10 AM FINDINGS: Lungs: Patchy right lower lobe atelectasis versus minimal infiltrate. Pleural spaces: Unremarkable. No pleural effusion. No pneumothorax. Heart/Mediastinum: Mild cardiomegaly. Bones/joints: Unremarkable. XR/XR chest 1V portable [id number] IMPRESSION: 1. Mild cardiomegaly. 2. Patchy right lower lobe atelectasis versus minimal infiltrate.
--- NOTE | 2022-08-06 20:25 | W.ED.GENADLT ---
HPI - General Adult General: Chief complaint: General Medical Stated complaint: Sinus Pressure Time Seen by Provider: 08/06/22 19:54 Source: patient Mode of arrival: ambulatory Limitations: no limitations History of Present Illness: 57-year-old male who is well-known to the ER he has a history of end-stage renal disease he received dialysis Wednesday did go yesterday states today he has had some dyspnea and states he feels like his lungs are full no cough no fever no pain his pulse ox here is normal he is in no respiratory distress here. Associated symptoms: Reports dyspnea; Deny chest pain, headache(s), nausea, rash or vomiting Review of Systems Const: Denies: fever(s), chills, body aches or change in appetite Eyes: Denies: blurry vision or eye discomfort ENMT: Denies: throat pain or dental pain Card: Denies: chest pain Resp: Reports: dyspnea GI: Denies: abdominal pain, nausea, vomiting or diarrhea : Denies: dysuria Musc: Denies: neck pain or back pain Skin/Breast: Denies: rash Neuro: Denies: headache(s) Psych: Denies: depression Lucas/Lymph: Denies: easy bruising All/Imm: Denies: urticaria PFSH ED PFSH: Medical History Bilateral hydronephrosis Bradycardia Chronic anemia CVA (cerebral vascular accident) Dependence on peritoneal dialysis Dilated aortic root ESRD (end stage renal disease) GERD (gastroesophageal reflux disease) History of stroke Hypertension Hypothyroidism Incomplete bladder emptying Polycystic kidney disease Right bundle branch block (RBBB) on electrocardiogram (ECG) Surgical History AV fistula History of colonoscopy 2019 at [facility] History of surgical procedure Peritoneal dialysis catheter placement by Dr. Kamara 2015 S/P hemodialysis catheter insertion (03/13/20) 23cm long exchanged right IJ Removed on 06/11/2020 Family History Mother Chronic kidney disease (CKD) Stroke Father Cancer lung Brother Hypertension Denies family history of Diabetes CAD (coronary artery disease) Clotting disorder Dementia Hyperlipidemia Psychiatric illness Anesthesia complication Bleeding disorder Lung disease Social History Smoking and tobacco status: current every day smoker cigarettes [ Other cigarette details: Half a pack per day for last 20-30 years] and smokeless tobacco Alcohol intake: never Lives independently: Yes Household members: family Housing: House Marital status: Number of children: 1 Current occupational status: disabled Current gender identity: Male Agree to transfusion: Yes Physical Exam Const: COMMON NORMALS: no acute distress, patient oriented x3 and healthy appearing HENMT: COMMON NORMALS: normocephalic and atraumatic HEAD & SCALP: normocephalic and atraumatic Eye: COMMON NORMALS: Equal, round and reactive pupils present and EOMs intact bilaterally PUPIL: Yes Equal, round and reactive pupils present Neck/C-Spine: COMMON NORMALS: full ROM and supple Chest: COMMONS NORMALS: normal inspection of the chest and normal palpation of entire chest wall Resp: COMMON NORMALS: normal respiratory effort, No retractions, No use of accessory muscles and clear to auscultation bilaterally AUSCULTATION: clear to auscultation bilaterally Cardio: COMMON NORMALS: regular rate, regular rhythm and No murmurs present (Cardio) RATE: regular rate RHYTHM: regular rhythm GI: COMMON NORMALS: Normal to inspection, nondistended, normoactive bowel sounds present, Soft to palpation, non-tender and no masses PALPATION: Yes Soft to palpation Extremity: COMMON NORMALS: normal to inspection and full ROM Neuro: COMMON NORMALS: patient oriented x3, moves all extremities and no focal motor deficits Psych: COMMON NORMALS: mental status grossly normal, Normal thought process present and cooperative THOUGHT PROCESS: Normal thought process present Skin: COMMON NORMALS: no rashes or lesions noted and no wounds GENERAL SKIN EXAM: no rashes or lesions noted Course Vital Signs: Vital signs: Vital Signs Temperature 97.7 F 08/06/22 20:02 Pulse Rate 84 08/06/22 21:00 Respiratory Rate 22 H 08/06/22 21:00 Blood Pressure 136/77 08/06/22 21:00 Pulse Oximetry 92 08/06/22 21:00 Oxygen Delivery Me thod 08/06/22 20:02 MDM - General Adult Medical Decision Making Patient presents with dyspnea x-ray blood work here all normal his blood pressure is improved he is stable for discharge he is to get dialyzed as scheduled tomorrow follow-up with PCP and return if worsening he understands agrees to plan. Lab Data 08/06/22 20:40 08/06/22 20:40 Radiology Impressions Chest X-Ray 08/06/22 20:21 IMPRESSION: 1. Mild cardiomegaly. 2. Patchy right lower lobe atelectasis versus minimal infiltrate. Laboratory Results WBC 7.5 10^3/uL (4.0-10.0) 08/06/22 20:40 RBC 3.50 10^6/uL (4.1-5.3) L 08/06/22 20:40 Hgb 11.0 g/dL (11.7-16.6) L 08/06/22 20:40 Hct 35.1 % (42.0-52.0) L 08/06/22 20:40 MCV 100.3 fl (80-94) H 08/06/22 20:40 MCH 31.4 pg (28.0-34.0) 08/06/22 20:40 MCHC 31.3 g/dL (30.0-36.0) 08/06/22 20:40 RDW 15.8 % (12.1-15.1) H 08/06/22 20:40 Plt Count 193 10^3/cmm (130-400) 08/06/22 20:40 MPV 9.6 fL (7.4-10.4) 08/06/22 20:40 Neut % (Auto) 68.2 % 08/06/22 20:40 Lymph % (Auto) 18.5 % 08/06/22 20:40 [place] % (Auto) 11.2 % 08/06/22 20:40 Eos % (Auto) 1.6 % 08/06/22 20:40 Baso % (Auto) 0.4 % 08/06/22 20:40 Neut # (Auto) 5.09 10^3/uL (1.8-7.7) 08/06/22 20:40 Lymph # (Auto) 1.4 10^3/uL (0.8-4.8) 08/06/22 20:40 [place] # (Auto) 0.8 10^3/uL (0.2-0.9) 08/06/22 20:40 Eos # (Auto) 0.1 10^3/uL (0.0-0.8) 08/06/22 20:40 Baso # (Auto) 0.0 10^3/uL (0.0-0.1) 08/06/22 20:40 Nucleated RBC % (auto) 0 % 08/06/22 20:40 Nucleated RBCs # 0.0 /100WBC 08/06/22 20:40 Sodium 137 mmol/L (136-145) 08/06/22 20:40 Potassium 4.9 mmol/L (3.5-5.1) 08/06/22 20:40 Chloride 100 mmol/L (98-107) 08/06/22 20:40 Carbon Dioxide 26 mmol/L (22-29) 08/06/22 20:40 Anion Gap 15.9 (5-19) 08/06/22 20:40 BUN 40 mg/dL (6-20) H 08/06/22 20:40 Creatinine 5.5 mg/dL (0.7-1.2) H 08/06/22 20:40 GFR Calculation 10.8 mL/min (90-130) L 08/06/22 20:40 Glucose 83 mg/dL (65-115) 08/06/22 20:40 Calculated Osmolality 293 mOsm/kg (285-295) 08/06/22 20:40 Calcium 9.1 mg/dL (8.5-10.5) 08/06/22 20:40 Total Bilirubin 0.3 mg/dL (0.15-1.2) 08/06/22 20:40 AST 19 U/L (0-40) 08/06/22 20:40 ALT 11 U/L (0-41) 08/06/22 20:40 Alkaline Phosphatase 59 U/L (40-130) 08/06/22 20:40 NT-Pro-B Natriuret Pep 09820 pg/mL (0-125) H 08/06/22 20:40 Total Protein 5.4 g/dL (6.6-8.7) L 08/06/22 20:40 Albumin 3.3 g/dL (3.5-5.2) L 08/06/22 20:40 Globulin 2.1 g/dL (1.3-4.6) 08/06/22 20:40 EKG Data EKG 1: I personally reviewed and interpreted this EKG as follows: EKG interpretation date: 08/06/22 EKG interpretation time: 20:32 Interpretation: nsr hr [address] or t wave abnormalities qrs 100 qtc 451 Computer generated interpretation: Chest X-Ray 08/06/22 20:21 IMPRESSION: 1. Mild cardiomegaly. 2. Patchy right lower lobe atelectasis versus minimal infiltrate. Discharge Plan Discharge Patient Disposition: Home Clinical Impression: ESRD (end stage renal disease), Dyspnea Condition: Stable Prescriptions: No Action isosorbide mononitrate 60 mg tablet extended release 24 hr 60 mg PO DAILY simvastatin 40 mg tablet 40 mg PO DAILY cholecalciferol (vitamin D3) 125 mcg (5,000 unit) capsule 125 mcg PO DAILY alfuzosin 10 mg tablet extended release 24 hr 10 mg PO DAILY Rx Instructions: administer after the same meal each day levothyroxine [Synthroid] 50 mcg tablet 50 mcg PO DAILY Qty: 90 0RF fluoxetine [Prozac] 20 mg capsule 20 mg PO DAILY Qty: 30 0RF carvedilol 12.5 mg Tablet 12.5 mg PO BID Qty: 60 0RF amlodipine 5 mg Tablet 10 mg PO DAILY Qty: 30 0RF allopurinol 100 mg Tablet 100 mg PO DAILY pantoprazole 40 mg tablet,delayed release (DR/EC) 40 mg PO DAILY lisinopril 20 mg tablet 20 mg PO DAILY cinacalcet 30 mg tablet 30 mg PO DAILY minoxidil 2.5 mg tablet 5 mg PO BID nifedipine 90 mg tablet extended release 24hr 90 mg PO DAILY hydralazine 50 mg tablet 100 mg PO TID Auryxia 210 mg iron tablet 2 tab PO TID Fosrenol 1,000 mg powder in packet 200 mg PO TID RenaPlex-D 800 mcg-12.5 mg -2,000 unit tablet 1 tab PO DAILY Discharge Orders: Discharge ED (Routine); Ordered 08/06/22 Ordered By: Ghada Fontanez Discharge Diet: Advance as tolerated Discharge Activity: Resume usual activity Patient Instructions: Dyspnea (ED) Coding Level of Care Code ED Form Setter/Driver for Eric Sandhu
--- NOTE | 2022-08-06 20:32 | ECG_ITS ---
[facility] Test Date: 2022-08-06 Pat Name: Navneet Savage Department: Room: Gender: Male [place] Program Coordinator: : 1965 Requested By: Ghada Fontanez Order Number: [id number] Nate MD: NICKI FRIAS Measurements Intervals [place] Rate: 74 P: 23 CO: 150 QRS: -34 QRSD: 100 T: 25 QT: 424 QTc: 471 Interpretive Statements SINUS RHYTHM LEFT AXIS DEVIATION [QRS AXIS < -30] MINIMAL VOLTAGE CRITERIA FOR LVH, CONSIDER NORMAL VARIANT [MEETS CRITERIA IN ONE OF: R(aVL), S(V1), R(V5), R(V5/V6)+S(V1)] SEPTAL MYOCARDIAL INFARCTION , OF INDETERMINATE AGE [40+ ms Q WAVE IN V1/V2] Compared to ECG 08/02/2022 04:56:22 Myocardial infarct finding now present Electronically Signed On 08-08-2022 23:39:04 CDT by NICKI FRIAS [id number]
[2022-08-06] MEDS: hyDRALAzine 20 mg/mL INJ 1 mL 10 MG IVP (20:36)
[2022-08-06 20:41] VITALS: BP 136/77; PULSE 71; RESP 15; O2SAT 91
[2022-08-06 20:45] LABS: Basophils % 0.4 %; Eosinophils # 0.1 10^3/uL (0.0-0.8); Eosinophils % 1.6 %; Hematocrit 35.1 % (42.0-52.0); Lymphocytes # 1.4 10^3/uL (0.8-4.8); Lymphocytes % 18.5 %; Mean Corpuscular HGB Conc 31.3 g/dL (30.0-36.0); Mean Corpuscular Hemoglobin 31.4 pg (28.0-34.0); Mean Corpuscular Volume 100.3 fl (80-94); Mean Platelet Volume 9.6 fL (7.4-10.4); Monocytes # 0.8 10^3/uL (0.2-0.9); Monocytes % 11.2 %; Neutrophils # 5.09 10^3/uL (1.8-7.7); Neutrophils % 68.2 %; Nucleated Red Blood Cells % 0 %; Platelet Count 193 10^3/cmm (130-400); Red Cell Distribution Width 15.8 % (12.1-15.1); White Blood Count 7.5 10^3/uL (4.0-10.0)
[2022-08-06 21:00] VITALS: BP 136/77; PULSE 84; RESP 22; O2SAT 92
[2022-08-06 21:12] LABS: Alanine Aminotransferase 11 U/L (0-41); Albumin Level 3.3 g/dL (3.5-5.2); Alkaline Phosphatase 59 U/L (40-130); Anion Gap 15.9 (5-19); Aspartate Amino Transferase 19 U/L (0-40); Blood Urea Nitrogen 40 mg/dL (6-20); Calcium 9.1 mg/dL (8.5-10.5); Carbon Dioxide 26 mmol/L (22-29); Chloride 100 mmol/L (98-107); Globulin 2.1 g/dL (1.3-4.6); Glomerular Filtration Rate 10.8 mL/min (90-130); Glucose 83 mg/dL (65-115); NT Pro B Type Natriuretic Pept 22001 pg/mL (0-125); Osmolality Calculated 293 mOsm/kg (285-295); Potassium 4.9 mmol/L (3.5-5.1); Sodium 137 mmol/L (136-145); Total Bilirubin 0.3 mg/dL (0.15-1.2); Total Protein 5.4 g/dL (6.6-8.7)
[2022-08-06 21:30] VITALS: BP 137/85; RESP 16
--- NOTE | 2022-08-11 14:27 | DCPLANNER ---
commercial loan manager called patient due to no primary care physician -patient stated that he sees Dr. Bolaños at [facility]
== END 2022-08-06 21:50 | disposition home or self-care (01) ==
PROVIDERS: Emergency Provider Emergency Medicine
DX: R06.00 Dyspnea, unspecified (principal); I12.0 Hypertensive chronic kidney disease with stage 5 chronic kidney disease or end stage renal disease; N18.6 End stage renal disease; Z99.2 Dependence on renal dialysis; Z86.73 Personal history of transient ischemic attack (TIA), and cerebral infarction without residual deficits; F17.210 Nicotine dependence, cigarettes, uncomplicated
CPT/HCPCS: 71045; 80053; 83880; 85025; 93005; 96374; 99285; J0360

== ENCOUNTER 2022-08-10 02:12 | Emergency (ER) | payer MEDICARE, MEDICAID, SELFPAY ==
[2022-08-10 02:21] VITALS: BP 190/104; PULSE 81; RESP 20; TEMP 36.5; O2SAT 95; BMI 29.0
[2022-08-10 02:33] VITALS: BP 185/106; PULSE 81; RESP 19; O2SAT 98
--- NOTE | 2022-08-10 02:35 | XRR_ITS ---
PROCEDURE INFORMATION: Exam: XR Chest Exam date and time: 08/10/2022 2:53 AM Age: 57 years old Clinical indication: Pain; Chest pressure; Additional info: Cp TECHNIQUE: Imaging protocol: Radiologic exam of the chest. Views: 1 view. COMPARISON: CR (CHEST, ) 08/06/2022 8:27 PM FINDINGS: Lungs: There is mild prominence and indistinctness of the pulmonary vasculature. There are increased interstitial opacity seen in the mid lower hemithoraces bilaterally. Mild pulmonary edema cannot be excluded. Pleural spaces: Unremarkable. No pleural effusion. No pneumothorax. Heart/Mediastinum: Unremarkable. No cardiomegaly. Bones/joints: Unremarkable. XR/XR chest 1V portable [id number] IMPRESSION: 1. Mild indistinctness of the pulmonary vasculature with increased interstitial opacities present the lower hemithoraces findings that suggest pulmonary edema.
[2022-08-10 02:52] LABS: Basophils % 0.5 %; Eosinophils # 0.1 10^3/uL (0.0-0.8); Eosinophils % 1.8 %; Hematocrit 38.7 % (42.0-52.0); Hemoglobin 12.4 g/dL (11.7-16.6); Lymphocytes # 1.2 10^3/uL (0.8-4.8); Lymphocytes % 15.4 %; Mean Corpuscular Hemoglobin 31.3 pg (28.0-34.0); Mean Corpuscular Volume 97.7 fl (80-94); Mean Platelet Volume 9.7 fL (7.4-10.4); Monocytes # 0.7 10^3/uL (0.2-0.9); Monocytes % 8.6 %; Neutrophils # 5.65 10^3/uL (1.8-7.7); Neutrophils % 73.6 %; Nucleated Red Blood Cells % 0 %; Platelet Count 247 10^3/cmm (130-400); Red Blood Count 3.96 10^6/uL (4.1-5.3); Red Cell Distribution Width 14.9 % (12.1-15.1); White Blood Count 7.7 10^3/uL (4.0-10.0)
[2022-08-10] MEDS: nitroglycerin 0.4 mg sublingual Tablet SUBLINGUAL (03:05)
[2022-08-10] MEDS: nitroglycerin 1 gm/inch oint Pkt 2 INCH TOPICAL (03:05)
[2022-08-10 03:11] VITALS: BP 185/101; PULSE 75; RESP 16; O2SAT 94
[2022-08-10 03:12] LABS: Alanine Aminotransferase 13 U/L (0-41); Albumin Level 3.1 g/dL (3.5-5.2); Alkaline Phosphatase 55 U/L (40-130); Anion Gap 17.1 (5-19); Aspartate Amino Transferase 24 U/L (0-40); Blood Urea Nitrogen 59 mg/dL (6-20); Carbon Dioxide 23 mmol/L (22-29); Chloride 101 mmol/L (98-107); Globulin 2.3 g/dL (1.3-4.6); Glomerular Filtration Rate 8.7 mL/min (90-130); Glucose 75 mg/dL (65-115); Magnesium 2.2 mg/dL (1.7-2.3); Osmolality Calculated 297 mOsm/kg (285-295); Potassium 5.1 mmol/L (3.5-5.1); Sodium 136 mmol/L (136-145); Total Bilirubin 0.3 mg/dL (0.15-1.2); Total Protein 5.4 g/dL (6.6-8.7)
--- NOTE | 2022-08-10 03:19 | ED_ITS ---
HPI - Chest Pain General: Chief Complaint: Chest Pain Stated Complaint: cp Time Seen by Provider: 08/10/22 02:24 History of Present Illness: 57-year-old male with end-stage renal disease. He is well-known to the emergency service. He presents this morning complaining of chest pressure and pain. He localizes the pain substernally and epigastric, and radiates into his right shoulder. Its been present since yesterday afternoon around 5 PM. It has been consistent. He is mild to moderately short of breath with the discomfort. His blood pressure has been high. He is due for dialysis at 7 AM this morning as an outpatient. He says that he tries not to gain water weight, but has been more swollen in the last few days. He denies fever or cough. He does not have a history of coronary disease. He does continue to smoke. MD complaint: chest pain Pertinent past history: other Onset (ago): hour(s) Timing of current episode: constant Prior episodes: Yes Onset: during rest Pain location: substernal and epigastric Pain radiation: right shoulder Quality: aching, heaviness and other ( Like someone is sitting on it ) Relieving factors: nothing Exacerbating factors: exertion Associated symptoms: Reports dyspnea, leg edema and nausea; Deny abdominal pain, diaphoresis, fever(s) or vomiting Treatment prior to arrival: none Review of Systems Const: Denies: fever(s) or diaphoresis ENMT: Denies: throat pain Card: Reports: chest pain Resp: Reports: dyspnea; Denies: productive cough or non-productive cough GI: Reports: nausea and melena; Denies: abdominal pain or vomiting [facility] ED PFSH: Medical History Bilateral hydronephrosis Bradycardia Chronic anemia CVA (cerebral vascular accident) Dependence on peritoneal dialysis Dilated aortic root ESRD (end stage renal disease) GERD (gastroesophageal reflux disease) History of stroke Hypertension Hypothyroidism Incomplete bladder emptying Polycystic kidney disease Right bundle branch block (RBBB) on electrocardiogram (ECG) Surgical History AV fistula History of colonoscopy 2019 at [facility] History of surgical procedure Peritoneal dialysis catheter placement by Dr. Kamara 2016 S/P hemodialysis catheter insertion (03/13/20) 23cm long exchanged right IJ Removed on 06/11/2020 Family History Mother Chronic kidney disease (CKD) Stroke Father Cancer lung Brother Hypertension Denies family history of Diabetes CAD (coronary artery disease) Clotting disorder Dementia Hyperlipidemia Psychiatric illness Anesthesia complication Bleeding disorder Lung disease Social History Smoking and tobacco status: current every day smoker cigarettes [ Other cigarette details: Half a pack per day for last 20-30 years] and smokeless tobacco Alcohol intake: never Lives independently: Yes Household members: family Housing: House Marital status: Number of children: 1 Current occupational status: disabled Current gender identity: Male Agree to transfusion: Yes Physical Exam Const: GENERAL APPEARANCE: cooperative, comfortable and ill appearing (Mildly) HENMT: COMMON NORMALS: normocephalic, atraumatic and Normal external nose present HEAD & SCALP: normocephalic and atraumatic NOSE: Normal external nose present Eye: COMMON NORMALS: Equal, round and reactive pupils present and EOMs intact bilaterally PUPIL: Yes Equal, round and reactive pupils present Neck/C-Spine: GENERAL: Yes trachea midline Chest: CHEST: Yes Symmetrical chest wall rise Resp: COMMON NORMALS: normal respiratory effort, No use of accessory muscles and clear to auscultation bilaterally AUSCULTATION: clear to auscultation bilaterally Cardio: COMMON NORMALS: regular rate and regular rhythm RATE: regular rate RHYTHM: regular rhythm HEART SOUNDS: Murmur heart sound present GI: INSPECTION: Yes Anasarca and Yes abdominal distension Extremity: GENERAL: Yes edema (2+) Neuro: FINA COMA SCALE: document GCS findings Woodward coma scale eye opening: Spontaneous Woodward coma scale verbal response: Orientated Woodward coma scale motor response: Obey commands Fina coma scale total score: 15 Course Vital Signs: Vital signs: Vital Signs Temperature 97.7 F 08/10/22 02:21 Pulse Rate 84 08/10/22 05:00 Respiratory Rate 12 08/10/22 05:00 Blood Pressure 164/96 08/10/22 05:00 Pulse Oximetry 92 08/10/22 05:00 Oxygen Delivery Me thod 08/10/22 05:00 MDM - Chest Pain Medical Decision Making This patient comes in with chest discomfort. It is minimal to essentially resolved at this point following medication. His blood pressure was significan tly high on arrival, is improved after administration of amlodipine, hydralazine, and Nitropaste. His troponin is at his baseline. His creatinine is essentially at his baseline. His potassium level is normal. His EKG shows a sinus rhythm with left axis rate of 75 normal intervals and no acute ST wave changes. Chest x-ray shows mild pulmonary edema. Blood pressure currently down to 135/82. His treatment for this will essentially be dialysis. He is scheduled for dialysis at 7:00 this morning as an outpatient. This is essentially sooner than we can get him dialysis as an inpatient this morning. With resolution of his pain, he will be allowed discharge to attend outpatient dialysis. Lab Data 08/10/22 02:40 08/10/22 02:40 Radiology Impressions Chest X-Ray 08/10/22 02:35 IMPRESSION: 1. Mild indistinctness of the pulmonary vasculature with increased interstitial opacities present the lower hemithoraces findings that suggest pulmonary edema. Laboratory Results WBC 7.7 10^3/uL (4.0-10.0) 08/10/22 02:40 RBC 3.96 10^6/uL (4.1-5.3) L 08/10/22 02:40 Hgb 12.4 g/dL (11.7-16.6) 08/10/22 02:40 Hct 38.7 % (42.0-52.0) L 08/10/22 02:40 MCV 97.7 fl (80-94) H 08/10/22 02:40 MCH 31.3 pg (28.0-34.0) 08/10/22 02:40 MCHC 32.0 g/dL (30.0-36.0) 08/10/22 02:40 RDW 14.9 % (12.1-15.1) 08/10/22 02:40 Plt Count 247 10^3/cmm (130-400) 08/10/22 02:40 MPV 9.7 fL (7.4-10.4) 08/10/22 02:40 Neut % (Auto) 73.6 % 08/10/22 02:40 Lymph % (Auto) 15.4 % 08/10/22 02:40 [place] % (Auto) 8.6 % 08/10/22 02:40 Eos % (Auto) 1.8 % 08/10/22 02:40 Baso % (Auto) 0.5 % 08/10/22 02:40 Neut # (Auto) 5.65 10^3/uL (1.8-7.7) 08/10/22 02:40 Lymph # (Auto) 1.2 10^3/uL (0.8-4.8) 08/10/22 02:40 [place] # (Auto) 0.7 10^3/uL (0.2-0.9) 08/10/22 02:40 Eos # (Auto) 0.1 10^3/uL (0.0-0.8) 08/10/22 02:40 Baso # (Auto) 0.0 10^3/uL (0.0-0.1) 08/10/22 02:40 Nucleated RBC % (auto) 0 % 08/10/22 02:40 Nucleated RBCs # 0.0 /100WBC 08/10/22 02:40 Sodium 136 mmol/L (136-145) 08/10/22 02:40 Potassium 5.1 mmol/L (3.5-5.1) 08/10/22 02:40 Chloride 101 mmol/L (98-107) 08/10/22 02:40 Carbon Dioxide 23 mmol/L (22-29) 08/10/22 02:40 Anion Gap 17.1 (5-19) 08/10/22 02:40 BUN 59 mg/dL (6-20) H 08/10/22 02:40 Creatinine 6.6 mg/dL (0.7-1.2) H* 08/10/22 02:40 GFR Calculation 8.7 mL/min (90-130) L 08/10/22 02:40 Glucose 75 mg/dL (65-115) 08/10/22 02:40 Calculated Osmolality 297 mOsm/kg (285-295) H 08/10/22 02:40 Calcium 9.0 mg/dL (8.5-10.5) 08/10/22 02:40 Phosphorus 9.0 mg/dL (2.5-4.5) H* 08/10/22 02:40 Magnesium 2.2 mg/dL (1.7-2.3) 08/10/22 02:40 Total Bilirubin 0.3 mg/dL (0.15-1.2) 08/10/22 02:40 AST 24 U/L (0-40) 08/10/22 02:40 ALT 13 U/L (0-41) 08/10/22 02:40 Alkaline Phosphatase 55 U/L (40-130) 08/10/22 02:40 Troponin T Baseline 246 ng/L (0-15) H* 08/10/22 02:40 Total Protein 5.4 g/dL (6.6-8.7) L 08/10/22 02:40 Albumin 3.1 g/dL (3.5-5.2) L 08/10/22 02:40 Globulin 2.3 g/dL (1.3-4.6) 08/10/22 02:40 Discharge Plan Discharge Patient Disposition: Home Clinical Impression: Chest pain, ESRD (end stage renal disease), Pulmonary edema Condition: Stable Prescriptions: No Action isosorbide mononitrate 60 mg tablet extended release 24 hr 60 mg PO DAILY simvastatin 40 mg tablet 40 mg PO DAILY cholecalciferol (vitamin D3) 125 mcg (5,000 unit) capsule 125 mcg PO DAILY alfuzosin 10 mg tablet extended release 24 hr 10 mg PO DAILY Rx Instructions: administer after the same meal each day fluoxetine [Prozac] 20 mg capsule 20 mg PO DAILY Qty: 30 0RF levothyroxine [Synthroid] 50 mcg tablet 50 mcg PO DAILY Qty: 90 0RF carvedilol 12.5 mg Tablet 12.5 mg PO BID Qty: 60 0RF amlodipine 5 mg Tablet 10 mg PO DAILY Qty: 30 0RF allopurinol 100 mg Tablet 100 mg PO DAILY pantoprazole 40 mg tablet,delayed release (DR/EC) 40 mg PO DAILY lisinopril 20 mg tablet 20 mg PO DAILY cinacalcet 30 mg tablet 30 mg PO DAILY minoxidil 2.5 mg tablet 5 mg PO BID nifedipine 90 mg tablet extended release 24hr 90 mg PO DAILY hydralazine 50 mg tablet 100 mg PO TID Auryxia 210 mg iron tablet 2 tab PO TID Fosrenol 1,000 mg powder in packet 200 mg PO TID RenaPlex-D 800 mcg-12.5 mg -2,000 unit tablet 1 tab PO DAILY Discharge Orders: Discharge ED (Routine); Ordered 08/10/22 Ordered By: Thomas Smart Patient Instructions: Chest Pain (ED), Pulmonary Edema (ED), End Stage Kidney Disease (ED), Opioid Safety, Pain Management Activity Restrictions/Additional Instructions: Attend dialysis as scheduled later this morning. Let them know you were seen here with chest discomfort related to a mild increase in fluid on your lungs this morning. They may make changes in dialysis based on this information. Return for worsening chest discomfort or shortness of breath despite dialysis, any other concerning symptoms. Coding Level of Care Code ED Bellhop Captain for Eric Sandhu
[2022-08-10 03:24] LABS: Troponin(5th) Baseline 246 ng/L (0-15)
[2022-08-10] MEDS: labetalol 5 mg/mL SDV 20mL 20 MG IVP (03:39)
[2022-08-10] MEDS: amlodipine 10 mg Tablet PO (03:40)
[2022-08-10] MEDS: hyDRALAzine 20 mg/mL INJ 1 mL IVP (04:23)
[2022-08-10 05:00] VITALS: BP 164/96; PULSE 84; RESP 12; O2SAT 92
[2022-08-10] MEDS: ondansetron 2 mg/ML SDV 2 mL 4 MG IVP (05:01)
[2022-08-10] MEDS: morphine 4 mg/mL SDV 1 mL 2 MG IVP (05:01)
[2022-08-10 05:29] VITALS: BP 135/82; PULSE 78; RESP 12; O2SAT 88
--- NOTE | 2022-08-11 13:32 | DCPLANNER ---
licensed psychologist manager called patient due to no primary care physician - patient stated that he sees Dr. Ortiz at [facility]
== END 2022-08-10 05:24 | disposition home or self-care (01) ==
PROVIDERS: Emergency Provider Emergency Medicine; PCP Family Medicine
DX: R07.9 Chest pain, unspecified (principal); J81.1 Chronic pulmonary edema; I12.0 Hypertensive chronic kidney disease with stage 5 chronic kidney disease or end stage renal disease; N18.6 End stage renal disease; Z99.2 Dependence on renal dialysis; Z86.73 Personal history of transient ischemic attack (TIA), and cerebral infarction without residual deficits; F17.210 Nicotine dependence, cigarettes, uncomplicated
CPT/HCPCS: 71045; 80053; 83735; 84100; 84439; 84443; 84484; 85025; 96374; 96375; 99285; J0360; J2270; J2405; J3490

== ENCOUNTER 2022-08-11 10:34 | Day surgery (SDC) | payer MEDICARE, MEDICAID, SELFPAY ==
[2022-08-10 11:16] VITALS: BMI 29.0
--- NOTE | 2022-08-11 10:49 | US_ITS ---
WS: [id number] ULTRASOUND-GUIDED PARACENTESIS CLINICAL INFORMATION: ascites COMPARISON: None. Procedure Informed consent: The risks, benefits, and alternatives of the procedure were discussed with the lisa ent. Verbal and written consent was obtained. Timeout: A timeout was performed to confirm the correct patient, procedure, and site. Preparation: A suitable skin site was identified. The patient was prepped and draped in usual sterile fashion. Lidocaine 1% was used for local anesthesia. Catheter: 4 Sudanese One-step Yueh catheter. Side: RIGHT Lower quadrant. Fluid Volume: 5600 ml Color: Clear yellow DISPOSITION: Discarded safely. Complications: None. Patient disposition: Discharged from the department in stable condition. US/[place] paracentesis abd w [id number] IMPRESSION: Uncomplicated ultrasound-guided paracentesis. Removal of 5600 cc
[2022-08-11 10:52] VITALS: BP 201/117; PULSE 77; RESP 18; TEMP 37.2; O2SAT 95
[2022-08-11] MEDS: albumin 75 G/300 ML BAG 300 G IV (11:24)
== END 2022-08-11 12:06 | disposition home or self-care (01) ==
LOC: GILAB 10:35
PROVIDERS: Radiology Neuroradiology; PCP Family Medicine; Visit Provider Internal Medicine Nephrology
PROC: (CPT 49082; principal; 2022-08-11 12:00)
DX: R18.8 Other ascites (principal)
CPT/HCPCS: 49083; 96365; P9046

== ENCOUNTER 2022-08-18 10:52 | Day surgery (SDC) | payer MEDICARE, MEDICAID, SELFPAY ==
[2022-08-14 14:01] VITALS: BMI 29.0
--- NOTE | 2022-08-18 10:55 | US_ITS ---
WS: [id number] ULTRASOUND-GUIDED THERAPEUTIC PARACENTESIS Procedure, risks, and complications have been explained to the patient. Consent is obtained. Utilizing aseptic technique and 1% buffered lidocaine, a small dermatome was made through which a 5 F rench Yueh catheter was inserted. Approximately 5600 ml of clear peritoneal fluid was obtained witho ut difficulty. No complications encountered. US/US paracentesis abd w [id number] IMPRESSION: Uncomplicated paracentesis yielding 5600 ml of peritoneal fluid.
[2022-08-18 11:00] VITALS: BP 163/96; PULSE 79; RESP 16; TEMP 36.4; O2SAT 97
[2022-08-18] MEDS: albumin 75 G/300 ML BAG 60 G IV (12:06)
== END 2022-08-18 12:46 | disposition home or self-care (01) ==
LOC: GILAB 10:54
PROVIDERS: Radiology Diagnostic Radiology; PCP Family Medicine; Visit Provider Internal Medicine Nephrology
PROC: (CPT 49082; principal; 2022-08-18 12:00)
DX: R18.8 Other ascites (principal)
CPT/HCPCS: 49083; 96365; P9046

== ENCOUNTER 2022-08-20 23:35 | Emergency (ER) | payer MEDICARE, MEDICAID, SELFPAY ==
[2022-08-20 23:48] VITALS: BP 187/92; PULSE 98; RESP 16; TEMP 37.1; O2SAT 97; BMI 44.1
--- NOTE | 2022-08-21 00:12 | ED_ITS ---
HPI - General Adult General: Chief complaint: General Medical Stated complaint: High B/P Time Seen by Provider: 08/20/22 23:40 Source: patient Mode of arrival: ambulatory Limitations: no limitations History of Present Illness: 57-year-old male who is chronic hypertension with end-stage renal disease he gets dialysis Wednesday schedule for dialysis this morning states that tonight his blood pressures been running high he has been seen here multiple times for his hypertension he denies any chest pain denies any headache has no other symptoms at this time. Associated symptoms: Deny chest pain, dyspnea, headache(s), nausea, rash or vomiting Review of Systems Const: Denies: fever(s), chills, body aches or change in appetite Eyes: Denies: blurry vision or eye discomfort ENMT: Denies: throat pain or dental pain Card: Denies: chest pain Resp: Denies: dyspnea GI: Denies: abdominal pain, nausea, vomiting or diarrhea : Denies: dysuria Musc: Denies: neck pain or back pain Skin/Breast: Denies: rash Neuro: Denies: headache(s) Psych: Denies: depression Lucas/Lymph: Denies: easy bruising All/Imm: Denies: urticaria PFSH ED PFSH: Medical History Bilateral hydronephrosis Bradycardia Chronic anemia CVA (cerebral vascular accident) Dependence on peritoneal dialysis Dilated aortic root ESRD (end stage renal disease) GERD (gastroesophageal reflux disease) History of stroke Hypertension Hypothyroidism Incomplete bladder emptying Neuropathy, lumbosacral (radicular) Polycystic kidney disease Right bundle branch block (RBBB) on electrocardiogram (ECG) Surgical History AV fistula History of colonoscopy 2019 at [facility] History of surgical procedure Peritoneal dialysis catheter placement by Dr. Kamara 2015 S/P hemodialysis catheter insertion (03/13/20) 23cm long exchanged right IJ Removed on 06/11/2020 Family History Mother Chronic kidney disease (CKD) Stroke Father Cancer lung Brother Hypertension Denies family history of Diabetes CAD (coronary artery disease) Clotting disorder Dementia Hyperlipidemia Psychiatric illness Anesthesia complication Bleeding disorder Lung disease Social History Smoking and tobacco status: current every day smoker cigarettes [ Other cigarette details: Half a pack per day for last 20-30 years] and smokeless tobacco Alcohol intake: never Lives independently: Yes Household members: family Housing: House Marital status: Number of children: 1 Current occupational status: disabled Current gender identity: Male Agree to transfusion: Yes Physical Exam Const: COMMON NORMALS: no acute distress, patient oriented x3 and healthy appearing HENMT: COMMON NORMALS: normocephalic and atraumatic HEAD & SCALP: normocephalic and atraumatic Eye: COMMON NORMALS: Equal, round and reactive pupils present and EOMs intact bilaterally PUPIL: Yes Equal, round and reactive pupils present Neck/C-Spine: COMMON NORMALS: full ROM and supple Chest: COMMONS NORMALS: normal inspection of the chest and normal palpation of entire chest wall Resp: COMMON NORMALS: normal respiratory effort, No retractions, No use of accessory muscles and clear to auscultation bilaterally AUSCULTATION: clear to auscultation bilaterally Cardio: COMMON NORMALS: regular rate, regular rhythm and No murmurs present (Cardio) RATE: regular rate RHYTHM: regular rhythm GI: COMMON NORMALS: Normal to inspection, nondistended, normoactive bowel sounds present, Soft to palpation, non-tender and no masses PALPATION: Yes Soft to palpation Extremity: COMMON NORMALS: normal to inspection and full ROM Neuro: COMMON NORMALS: patient oriented x3, moves all extremities and no focal motor deficits Psych: COMMON NORMALS: mental status grossly normal, Normal thought process present and cooperative THOUGHT PROCESS: Normal thought process present Skin: COMMON NORMALS: no rashes or lesions noted and no wounds GENERAL SKIN EXAM: no rashes or lesions noted Course Vital Signs: Vital signs: Vital Signs Temperature 98.8 F 08/20/22 23:48 Pulse Rate 96 08/21/22 00:25 Respiratory Rate 18 08/21/22 00:25 Blood Pressure 158/83 08/21/22 00:25 Pulse Oximetry 97 08/21/22 00:25 Oxygen Delivery Me thod 08/21/22 00:25 MDM - General Adult Medical Decision Making He has no other acutePatient presents with hypertension his blood pressure has improved here plaints he gets dialysis today he is stable for discharge he is to follow-up with his PCP and return if worsening EKG Data EKG 1: I personally reviewed and interpreted this EKG as follows: EKG interpretation date: 08/21/22 EKG interpretation time: 00:42 Interpretation: nsr hr [address] or t wave abnormalities qrs 102 qtc 443 Discharge Plan Discharge Patient Disposition: Home Clinical Impression: Hypertension, ESRD (end stage renal disease) Condition: Stable Prescriptions: No Action isosorbide mononitrate 60 mg tablet extended release 24 hr 60 mg PO DAILY simvastatin 40 mg tablet 40 mg PO DAILY capsaicin 0.075 % cream 1 applic topical TID Qty: 120 2RF Rx Instructions: do not wash area for at least 30 min after application sertraline 25 mg tablet 25 mg PO DAILY Qty: 30 0RF cholecalciferol (vitamin D3) 125 mcg (5,000 unit) capsule 125 mcg PO DAILY alfuzosin 10 mg tablet extended release 24 hr 10 mg PO DAILY Rx Instructions: administer after the same meal each day levothyroxine 75 mcg tablet 75 mcg PO DAILY Qty: 60 0RF Rx Instructions: to replace 50mcg tablets carvedilol 12.5 mg Tablet 12.5 mg PO BID Qty: 60 0RF amlodipine 5 mg Tablet 10 mg PO DAILY Qty: 30 0RF allopurinol 100 mg Tablet 100 mg PO DAILY pantoprazole 40 mg tablet,delayed release (DR/EC) 40 mg PO DAILY lisinopril 20 mg tablet 20 mg PO DAILY cinacalcet 30 mg tablet 30 mg PO DAILY minoxidil 2.5 mg tablet 5 mg PO BID nifedipine 90 mg tablet extended release 24hr 90 mg PO DAILY hydralazine 50 mg tablet 100 mg PO TID Auryxia 210 mg iron tablet 2 tab PO TID Fosrenol 1,000 mg powder in packet 200 mg PO TID RenaPlex-D 800 mcg-12.5 mg -2,000 unit tablet 1 tab PO DAILY Discharge Orders: Discharge ED (Routine); Ordered 08/21/22 Ordered By: Ghada Fontanez Referrals: Randolph Ortiz MD [Primary Care Provider] - 1-3 days Discharge Diet: Advance as tolerated Discharge Activity: Resume usual activity Patient Instructions: Hypertension (ED) Coding Level of Care Code ED Escape Wheel Tooth Cutter for Chg Phoebe
[2022-08-21 00:25] VITALS: BP 158/83; PULSE 96; RESP 18; O2SAT 97
--- NOTE | 2022-08-21 00:42 | ECG_ITS ---
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 Measurements Intervals [place] Rate: 89 P: 30 IA: 138 QRS: -26 QRSD: 102 T: 42 QT: 396 QTc: 483 Interpretive Statements SINUS RHYTHM MODERATE VOLTAGE CRITERIA FOR LVH, CONSIDER NORMAL VARIANT [MEETS CRITERIA IN ONE OF: R(aVL), S(V1), R(V5), R(V5/V6)+S(V1)] POSSIBLE SEPTAL MYOCARDIAL INFARCTION , OF INDETERMINATE AGE [30 ms Q WAVE IN V1/V2] Compared to ECG 08/06/2022 20:32:17 Left-axis deviation no longer present Myocardial infarct finding still present Electronically Signed On 08-21-2022 15:53:58 CDT by Saurabh Fitzpatrick M.D. [id number]
--- NOTE | 2022-08-21 00:46 | PC.NURSE ---
PT BP RETURNED TO BASELINE. HYDRALAZINE NOT GIVEN PER DR. MERINO
[2022-08-21 00:52] VITALS: BP 155/87; PULSE 96; RESP 18; O2SAT 97
== END 2022-08-21 00:54 | disposition home or self-care (01) ==
PROVIDERS: Emergency Provider Emergency Medicine; PCP Family Medicine
DX: I12.0 Hypertensive chronic kidney disease with stage 5 chronic kidney disease or end stage renal disease (principal); N18.6 End stage renal disease; Z86.73 Personal history of transient ischemic attack (TIA), and cerebral infarction without residual deficits; F17.210 Nicotine dependence, cigarettes, uncomplicated
CPT/HCPCS: 93005; 99283

== ENCOUNTER → 2022-08-25 10:24 | Day surgery (SDC) | payer MEDICARE, MEDICAID, SELFPAY ==
[2022-08-24 09:31] VITALS: BMI 29.0
[2022-08-25 10:32] VITALS: BP 142/80; PULSE 80; RESP 18; TEMP 37.1; O2SAT 95
--- NOTE | 2022-08-25 11:11 | US_ITS ---
WS: [id number] ULTRASOUND-GUIDED PARACENTESIS CLINICAL INFORMATION: Ascites COMPARISON: None. Procedure Informed consent: The risks, benefits, and alternatives of the procedure were discussed with the lisa ent. Verbal and written consent was obtained. Timeout: A timeout was performed to confirm the correct patient, procedure, and site. Preparation: A suitable skin site was identified. The patient was prepped and draped in usual sterile fashion. Lidocaine 1% was used for local anesthesia. Catheter: 4 Bahraini One-step Yueh catheter. Side: LEFT Lower quadrant. Fluid Volume: 1850 ml Color: Clear yellow DISPOSITION: Discarded safely. Complications: None. Patient disposition: Discharged from the department in stable condition. US/US paracentesis abd w [id number] IMPRESSION: Uncomplicated ultrasound-guided paracentesis. Removal of 1850cc
[2022-08-25] MEDS: albumin 75 G/300 ML BAG 200 G IV (12:01)
--- NOTE | 2022-08-25 12:13 | PC.NURSE ---
draining stopped at 1800ml. Repositioned patient, with no fluid output noted. Notified US. Aman Caro here to observe and attempt to get fluid to move. Unsuccessful. Aman notified Dr Seymour. Instructed to remove catheter. Stop albumin and patient to return next week.
== END ==
PROVIDERS: Radiology Neuroradiology; PCP Family Medicine; Visit Provider Internal Medicine Nephrology
PROC: (CPT 49082; principal; 2022-08-25 12:00)
DX: R18.8 Other ascites (principal)
CPT/HCPCS: 49083; 96365; P9046

== ENCOUNTER 2022-09-01 10:32 | Day surgery (SDC) | payer MEDICARE, MEDICAID, SELFPAY ==
[2022-08-31 08:02] VITALS: BMI 30.7
[2022-09-01 10:56] VITALS: BP 218/117; PULSE 78; RESP 20; TEMP 36.7; O2SAT 96
--- NOTE | 2022-09-01 10:58 | US_ITS ---
WS: [id number] ULTRASOUND-GUIDED THERAPEUTIC PARACENTESIS Procedure, risks, and complications have been explained to the patient. Consent is obtained. Utilizing aseptic technique and 1% buffered lidocaine, a small dermatome was made through which a 5 F rench Yueh catheter was inserted. Approximately 7500 ml of clear peritoneal fluid was obtained witho ut difficulty. No complications encountered. US/US paracentesis abd w [id number] IMPRESSION: Uncomplicated paracentesis yielding 7500 ml of peritoneal fluid.
--- NOTE | 2022-09-01 11:00 | PC.NURSE ---
Radiology notified of elevated BP, spoke with Martha. Asked what HR is, 76. States she will let Dr Loja know.
[2022-09-01 11:29] VITALS: BP 208/114; PULSE 79; RESP 20; O2SAT 94
[2022-09-01] MEDS: albumin 75 G/300 ML BAG 250 G IV (11:45)
[2022-09-01 12:00] VITALS: BP 196/118; PULSE 80; RESP 20; O2SAT 95
[2022-09-01 12:34] VITALS: BP 203/109; PULSE 85; RESP 18; O2SAT 97
== END 2022-09-01 12:38 | disposition home or self-care (01) ==
LOC: GILAB 10:35
PROVIDERS: Radiology Diagnostic Radiology; PCP Family Medicine; Visit Provider Internal Medicine Nephrology
PROC: (CPT 49082; principal; 2022-09-01 12:00)
DX: R18.8 Other ascites (principal)
CPT/HCPCS: 49083; 96365; P9046

== ENCOUNTER 2022-09-08 10:42 | Day surgery (SDC) | payer MEDICARE, MEDICAID, SELFPAY ==
--- NOTE | 2022-09-08 11:03 | US_ITS ---
WS: [id number] ULTRASOUND-GUIDED 5500 PARACENTESIS Procedure, risks, and complications have been explained to the patient. Consent is obtained. Utilizing aseptic technique and 1% buffered lidocaine, a small dermatome was made through which a 5 F rench Yueh catheter was inserted. Approximately 5500 ml of clear peritoneal fluid was obtained witho ut difficulty. No complications encountered. US/US paracentesis abd w [id number] IMPRESSION: Uncomplicated paracentesis yielding 5500 ml of peritoneal fluid.
[2022-09-08 11:05] VITALS: BP 219/115; PULSE 74; RESP 18; TEMP 36.8; O2SAT 95; BMI 28.1
[2022-09-08] MEDS: albumin 75 G/300 ML BAG 300 G IV (12:00)
== END 2022-09-08 12:30 | disposition home or self-care (01) ==
PROVIDERS: Radiology Diagnostic Radiology; PCP Family Medicine; Visit Provider Internal Medicine Nephrology
PROC: (CPT 49082; principal; 2022-09-08 12:00)
DX: R18.8 Other ascites (principal)
CPT/HCPCS: 49083; 96365; P9046

== ENCOUNTER 2022-09-08 21:35 | Emergency (ER) | payer MEDICARE, MEDICAID, SELFPAY ==
[2022-09-08 22:07] VITALS: BP 215/106; PULSE 86; RESP 17; TEMP 36.7; O2SAT 97; BMI 28.6
--- NOTE | 2022-09-08 22:11 | ECG_ITS ---
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 Measurements Intervals [place] Rate: 80 P: 76 IN: 137 QRS: -28 QRSD: 99 T: -17 QT: 403 QTc: 467 Interpretive Statements SINUS RHYTHM BORDERLINE LEFT AXIS DEVIATION [QRS AXIS < -20] VOLTAGE CRITERIA FOR LVH [MEETS CRITERIA IN ONE OF: R(aVL), S(V1), R(V5), R(V5/V6)+S(V1)] Compared to ECG 08/21/2022 00:42:24 Myocardial infarct finding no longer present Electronically Signed On 09-09-2022 1:42:41 CDT by Saurabh Fitzpatrick M.D. [id number]
[2022-09-08 22:23] VITALS: BP 185/95; PULSE 81; RESP 15
[2022-09-08 22:41] LABS: Basophils % 0.5 %; Eosinophils # 0.2 10^3/uL (0.0-0.8); Eosinophils % 1.7 %; Hematocrit 33.1 % (42.0-52.0); Hemoglobin 10.9 g/dL (11.7-16.6); Lymphocytes # 1.4 10^3/uL (0.8-4.8); Lymphocytes % 15.6 %; Mean Corpuscular HGB Conc 32.9 g/dL (30.0-36.0); Mean Corpuscular Hemoglobin 30.8 pg (28.0-34.0); Mean Corpuscular Volume 93.5 fl (80-94); Mean Platelet Volume 10.1 fL (7.4-10.4); Monocytes % 11.9 %; Neutrophils # 6.11 10^3/uL (1.8-7.7); Neutrophils % 70.1 %; Nucleated Red Blood Cells % 0 %; Platelet Count 241 10^3/cmm (130-400); Red Blood Count 3.54 10^6/uL (4.1-5.3); White Blood Count 8.7 10^3/uL (4.0-10.0)
[2022-09-08] MEDS: hyDRALAzine 20 mg/mL INJ 1 mL 10 MG IVP (22:46)
--- NOTE | 2022-09-08 22:50 | ED_ITS ---
HPI - Arrhythmia/Palpitations General: Chief Complaint: General Medical Stated Complaint: high bp Time Seen by Provider: 09/08/22 21:38 Source: patient Mode of arrival: ambulatory Limitations: no limitations History of Present Illness: 57-year-old male has a history of end-stage renal disease along with hypertension been seen here multiple times for hypertension episodes he has scheduled for dialysis tomorrow he states that his blood pressures running in the 180s he denies any pain anywhere he says he has some mild abdominal pain but he had a paracentesis done today denies any fever he states the pain is mild rates it a 2 out of 10. He denies any chest pain denies any headache. Associated symptoms: Deny nausea or vomiting Review of Systems Const: Denies: fever(s), chills, body aches or change in appetite Eyes: Denies: blurry vision or eye discomfort ENMT: Denies: throat pain or dental pain Card: Denies: chest pain Resp: Denies: dyspnea GI: Denies: abdominal pain, nausea, vomiting or diarrhea : Denies: dysuria Musc: Denies: neck pain or back pain Skin/Breast: Denies: rash Neuro: Denies: headache(s) Psych: Denies: depression PFSH ED PFSH: Medical History Bilateral hydronephrosis Bradycardia Chronic anemia CVA (cerebral vascular accident) Dependence on peritoneal dialysis Dilated aortic root ESRD (end stage renal disease) GERD (gastroesophageal reflux disease) History of stroke Hypertension Hypothyroidism Incomplete bladder emptying Neuropathy, lumbosacral (radicular) Polycystic kidney disease Right bundle branch block (RBBB) on electrocardiogram (ECG) Surgical History AV fistula History of colonoscopy 2019 at [facility] History of surgical procedure Peritoneal dialysis catheter placement by Dr. Kamara 2016 S/P hemodialysis catheter insertion (03/13/20) 23cm long exchanged right IJ Removed on 06/11/2020 Family History Mother Chronic kidney disease (CKD) Stroke Father Cancer lung Brother Hypertension Denies family history of Diabetes CAD (coronary artery disease) Clotting disorder Dementia Hyperlipidemia Psychiatric illness Anesthesia complication Bleeding disorder Lung disease Social History (Updated 08/26/22 @ 13:54 by Akilah Irvin LPN) Smoking and tobacco status: current every day smoker cigarettes [ Other cigarette details: Half a pack per day for last 20-30 years] and smokeless tobacco Alcohol intake: never Lives independently: Yes Household members: family Housing: House Marital status: Number of children: 1 Current occupational status: disabled Current gender identity: Male Agree to transfusion: Yes Physical Exam Const: COMMON NORMALS: no acute distress and patient oriented x3 HENMT: COMMON NORMALS: normocephalic and atraumatic HEAD & SCALP: normocephalic and atraumatic Eye: COMMON NORMALS: conjunctivae normal CONJUNCTIVA: Yes conjunctivae normal Neck/C-Spine: COMMON NORMALS: full ROM and supple Chest: COMMONS NORMALS: normal inspection of the chest Resp: COMMON NORMALS: normal respiratory effort, No retractions, No use of accessory muscles and clear to auscultation bilaterally AUSCULTATION: clear to auscultation bilaterally Cardio: COMMON NORMALS: regular rate, regular rhythm and No murmurs present (Cardio) RATE: regular rate RHYTHM: regular rhythm GI: COMMON NORMALS: Normal to inspection, nondistended, normoactive bowel sounds present, Soft to palpation, non-tender and no masses PALPATION: Yes Soft to palpation Extremity: COMMON NORMALS: normal to inspection and full ROM Neuro: COMMON NORMALS: patient oriented x3, moves all extremities and no focal motor deficits Psych: COMMON NORMALS: mental status grossly normal, Normal thought process present and cooperative THOUGHT PROCESS: Normal thought process present Skin: COMMON NORMALS: no rashes or lesions noted and no wounds GENERAL SKIN EXAM: no rashes or lesions noted Course Vital Signs: Vital signs: Vital Signs Temperature 98.0 F 09/08/22 22:07 Pulse Rate 85 09/09/22 00:03 Respiratory Rate 15 09/08/22 22:23 Blood Pressure 179/89 09/09/22 00:03 Pulse Oximetry 97 09/08/22 22:07 Oxygen Delivery Me thod Room Air 09/08/22 22:23 MDM - Arrhythmia/Palpitations Medical Decision Making Patient presents with hypertension he does have chronic hypertension he has been asymptomatic here blood work is stable we will increase his carvedilol from 12.5 to 25 mg twice daily he is to get dialysis tomorrow as scheduled return if worsening. Lab Data 09/08/22 22:32 09/08/22 22:32 Laboratory Results WBC 8.7 10^3/uL (4.0-10.0) 09/08/22 22: RBC 3.54 10^6/uL (4.1-5.3) L 09/08/22 22: Hgb 10.9 g/dL (11.7-16.6) L 09/08/22: Hct 33.1 % (42.0-52.0) L 09/08/22: MCV 93.5 fl (80-94) 09/08/22 22: MCH 30.8 pg (28.0-34.0) 09/08/22: MCHC 32.9 g/dL (30.0-36.0) 09/08/22: RDW 14.0 % (12.1-15.1) 09/08/22: Plt Count 241 10^3/cmm (130-400) 09/08/22: MPV 10.1 fL (7.4-10.4) 09/08/22: Neut % (Auto) 70.1 % 09/08/22 22: Lymph % (Auto) 15.6 % 09/08/22: [place] % (Auto) 11.9 % 09/08/22: Eos % (Auto) 1.7 % 09/08/22: Baso % (Auto) 0.5 % 09/08/22: Neut # (Auto) 6.11 10^3/uL (1.8-7.7) 09/08/22: Lymph # (Auto) 1.4 10^3/uL (0.8-4.8) 09/08/22: [place] # (Auto) 1.0 10^3/uL (0.2-0.9) H 09/08/22: Eos # (Auto) 0.2 10^3/uL (0.0-0.8) 09/08/22 22: Baso # (Auto) 0.0 10^3/uL (0.0-0.1) 09/08/22: Nucleated RBC % (auto) 0 % 04/18/23 22:32 Nucleated RBCs # 0.0 /100WBC 09/08/22 22:32 Sodium 138 mmol/L (136-145) 09/08/22 22:32 Potassium 4.6 mmol/L (3.5-5.1) 09/08/22 22:32 Chloride 98 mmol/L (98-107) 09/08/22 22:32 Carbon Dioxide 24 mmol/L (22-29) 09/08/22 22:32 Anion Gap 20.6 (5-19) H 09/08/22 22:32 BUN 55 mg/dL (6-20) H 09/08/22 22:32 Creatinine 6.5 mg/dL (0.7-1.2) H* 09/08/22 22:32 GFR Calculation 8.9 mL/min (90-130) L 09/08/22 22:32 Glucose 85 mg/dL (65-115) 09/08/22 22:32 Calculated Osmolality 300 mOsm/kg (285-295) H 09/08/22 22:32 Calcium 9.7 mg/dL (8.5-10.5) 09/08/22 22:32 Total Bilirubin 0.3 mg/dL (0.15-1.2) 09/08/22 22:32 AST 23 U/L (0-40) 09/08/22 22:32 ALT 11 U/L (0-41) 09/08/22 22:32 Alkaline Phosphatase 58 U/L (40-130) 09/08/22 22:32 Total Protein 5.8 g/dL (6.6-8.7) L 09/08/22 22:32 Albumin 3.7 g/dL (3.5-5.2) 09/08/22 22:32 Globulin 2.1 g/dL (1.3-4.6) 09/08/22 22:32 Discharge Plan Discharge Patient Disposition: Home Clinical Impression: Hypertension Condition: Stable Prescriptions: New carvedilol 25 mg tablet 25 mg PO BID Qty: 60 0RF Rx Instructions: must administer with a meal/food Discontinued carvedilol 12.5 mg Tablet 12.5 mg PO BID Qty: 60 0RF No Action isosorbide mononitrate 60 mg tablet extended release 24 hr 60 mg PO DAILY simvastatin 40 mg tablet 40 mg PO DAILY cholecalciferol (vitamin D3) 125 mcg (5,000 unit) capsule 125 mcg PO DAILY alfuzosin 10 mg tablet extended release 24 hr 10 mg PO DAILY Rx Instructions: administer after the same meal each day sertraline 25 mg tablet 25 mg PO DAILY Qty: 30 0RF levothyroxine 75 mcg tablet 75 mcg PO DAILY Qty: 60 0RF Rx Instructions: to replace 50mcg tablets amlodipine 5 mg Tablet 10 mg PO DAILY Qty: 30 0RF allopurinol 100 mg Tablet 100 mg PO DAILY pantoprazole 40 mg tablet,delayed release (DR/EC) 40 mg PO DAILY lisinopril 20 mg tablet 20 mg PO DAILY cinacalcet 30 mg tablet 30 mg PO DAILY minoxidil 2.5 mg tablet 5 mg PO BID nifedipine 90 mg tablet extended release 24hr 90 mg PO DAILY hydralazine 50 mg tablet 100 mg PO TID Auryxia 210 mg iron tablet 2 tab PO TID Fosrenol 1,000 mg powder in packet 200 mg PO TID RenaPlex-D 800 mcg-12.5 mg -2,000 unit tablet 1 tab PO DAILY Discharge Orders: Discharge ED (Routine); Ordered 09/09/22 Ordered By: Ghada Fontanez Referrals: Randolph Ortiz MD [Primary Care Provider] - 1-3 days Discharge Diet: Advance as tolerated Discharge Activity: Resume usual activity Patient Instructions: Hypertension (ED) Coding Level of Care Code ED Edge Trimmer Mechanic for Eric Sandhu
[2022-09-08 23:00] LABS: Alanine Aminotransferase 11 U/L (0-41); Albumin Level 3.7 g/dL (3.5-5.2); Alkaline Phosphatase 58 U/L (40-130); Anion Gap 20.6 (5-19); Aspartate Amino Transferase 23 U/L (0-40); Blood Urea Nitrogen 55 mg/dL (6-20); Calcium 9.7 mg/dL (8.5-10.5); Carbon Dioxide 24 mmol/L (22-29); Chloride 98 mmol/L (98-107); Globulin 2.1 g/dL (1.3-4.6); Glomerular Filtration Rate 8.9 mL/min (90-130); Glucose 85 mg/dL (65-115); Osmolality Calculated 300 mOsm/kg (285-295); Potassium 4.6 mmol/L (3.5-5.1); Sodium 138 mmol/L (136-145); Total Bilirubin 0.3 mg/dL (0.15-1.2); Total Protein 5.8 g/dL (6.6-8.7)
[2022-09-08] MEDS: labetalol 5 mg/mL SDV 20mL 10 MG IVP (23:50)
[2022-09-09 00:03] VITALS: BP 179/89; PULSE 85
[2022-09-09 01:04] VITALS: BP 132/105; PULSE 84; RESP 16; O2SAT 94
== END 2022-09-09 01:04 | disposition home or self-care (01) ==
PROVIDERS: Emergency Provider Emergency Medicine; PCP Family Medicine
DX: I12.0 Hypertensive chronic kidney disease with stage 5 chronic kidney disease or end stage renal disease (principal); N18.6 End stage renal disease; F17.210 Nicotine dependence, cigarettes, uncomplicated; Z86.73 Personal history of transient ischemic attack (TIA), and cerebral infarction without residual deficits
CPT/HCPCS: 80053; 85025; 93005; 96374; 96375; 99284; J0360; J3490

== ENCOUNTER → 2022-09-10 12:30 | Outpatient (BNVA) | payer MEDICARE, MEDICAID, SELFPAY | PROVIDERS: PCP Family Medicine; Visit Provider Internal Medicine Cardiovascular Disease | DX: I12.0 Hypertensive chronic kidney disease with stage 5 chronic kidney disease or end stage renal disease (principal); N18.6 End stage renal disease; F17.210 Nicotine dependence, cigarettes, uncomplicated; Z99.2 Dependence on renal dialysis | CPT/HCPCS: 99214 ==

== ENCOUNTER 2022-09-13 02:44 | Emergency (ER) | payer MEDICARE, MEDICAID, SELFPAY ==
[2022-09-13] VITALS (8 sets, daily range): BP systolic 149–210; BP diastolic 90–111; PULSE 71–95; RESP 16; TEMP 36.5; O2SAT 90–95; BMI 28.1
--- NOTE | 2022-09-13 03:19 | XRR_ITS ---
PROCEDURE INFORMATION: Exam: XR Chest Exam date and time: 09/13/2022 2:54 AM Age: 57 years old Clinical indication: Shortness of breath; Additional info: SOB TECHNIQUE: Imaging protocol: Radiologic exam of the chest. Views: 1 view. COMPARISON: CR (CHEST, ) 08/10/2022 2:53 AM FINDINGS: Lungs: Mildly decreased lung volumes. [id number] right and mild left perihilar interstitial opacities. This may represent asymmetric pulmonary edema, although underlying pneumonia cannot be excluded. Pleural spaces: No pleural effusion. No pneumothorax. Heart/Mediastinum: Normal heart size. Normal mediastinum. Midline trachea. Bones/joints: No acute osseous abnormalities seen. Soft tissues: Multiple external leads are seen overlying the chest, limiting assessment. XR/XR chest 1V portable [id number] IMPRESSION: Mildly decreased lung volumes. [id number] right and mild left perihilar interstitial opacities. This may represent asymmetric pulmonary edema, although underlying pneumonia cannot be excluded.
--- NOTE | 2022-09-13 03:20 | ECG_ITS ---
[facility] Test Date: 2022-09-13 Pat Name: Navneet Savage Department: Room: Gender: Male [employer]: : 1965 Requested By: Thomas Richardson Order Number: [id number] Nate MD: Gaston Guillaume M.D. Measurements Intervals [place] Rate: 80 P: 22 CO: 159 QRS: -47 QRSD: 102 T: 47 QT: 408 QTc: 473 Interpretive Statements SINUS RHYTHM LEFT ANTERIOR FASCICULAR BLOCK [QRS AXIS <= -45, QR IN I, RS IN II] MODERATE VOLTAGE CRITERIA FOR LVH, CONSIDER NORMAL VARIANT [MEETS CRITERIA IN ONE OF: R(aVL), S(V1), R(V5), R(V5/V6)+S(V1)] Compared to ECG 09/08/2022 22:13:32 Left anterior fascicular block now present Electronically Signed On 09-13-2022 9:45:06 CDT by Gaston Guillaume M.D. [id number]
[2022-09-13] MEDS: labetalol 5 mg/mL SDV 20mL 20 MG IVP ×2 (03:41→05:36)
[2022-09-13] MEDS: nitroglycerin 1 gm/inch oint Pkt 2 INCH TOPICAL (03:41)
[2022-09-13] MEDS: ondansetron 2 mg/ML SDV 2 mL 4 MG IVP (03:44)
--- NOTE | 2022-09-13 03:46 | ED_ITS ---
HPI - General Adult General: Chief complaint: General Medical Stated complaint: Hypertension Time Seen by Provider: 09/13/22 03:00 Source: patient History of Present Illness: 57-year-old male with end-stage renal disease presenting with nausea and shortness of breath. He checked his blood pressure after he awoke with the symptoms, and his blood pressure was significantly elevated in the 230 systolic. He continues to complain of the same symptoms. His blood pressure is now 200 systolic. He had dialysis on Wednesday, which was a normal dialysis for him he says. No new medications. He denies chest pain. Onset (ago): hour(s) Radiation: non-radiation Quality: other Pain Consistency: other Relieving factors: other Associated symptoms: Reports dyspnea, headache(s) (mild) and nausea; Deny chest pain, confusion, cough, fevers/chills or vomiting Review of Systems Const: Denies: fever(s) Eyes: Denies: change in vision Card: Denies: chest pain Resp: Reports: dyspnea; Denies: productive cough or non-productive cough GI: Reports: nausea; Denies: abdominal pain or vomiting Neuro: Reports: headache(s) (mild); Denies: confusion PFS ED PFSH: Medical History Bilateral hydronephrosis Bradycardia Chronic anemia CVA (cerebral vascular accident) Dependence on peritoneal dialysis Dilated aortic root ESRD (end stage renal disease) GERD (gastroesophageal reflux disease) History of stroke Hypertension Hypothyroidism Incomplete bladder emptying Neuropathy, lumbosacral (radicular) Polycystic kidney disease Right bundle branch block (RBBB) on electrocardiogram (ECG) Surgical History AV fistula History of colonoscopy 2019 at [facility] History of surgical procedure Peritoneal dialysis catheter placement by Dr. Kamara 2016 S/P hemodialysis catheter insertion (03/13/20) 23cm long exchanged right IJ Removed on 06/11/2020 Family History Mother Chronic kidney disease (CKD) Stroke Father Cancer lung Brother Hypertension Denies family history of Diabetes CAD (coronary artery disease) Clotting disorder Dementia Hyperlipidemia Psychiatric illness Anesthesia complication Bleeding disorder Lung disease Social History (Reviewed 09/13/22 @ 03:50 by AGUILAR Hankins Smoking and tobacco status: current every day smoker cigarettes [ Other cigarette details: Half a pack per day for last 20-30 years] and smokeless tobacco Alcohol intake: never Substance/Drug Use: never Lives independently: Yes Household members: family Housing: House Marital status: Number of children: 1 Current occupational status: disabled Current gender identity: Male Agree to transfusion: Yes Physical Exam Const: GENERAL APPEARANCE: cooperative and frail appearing; not ill appearing HENMT: COMMON NORMALS: normocephalic, atraumatic and Normal external nose present HEAD & SCALP: normocephalic and atraumatic FACE & SINUS: normal facial exam and face symmetric NOSE: Normal external nose present Eye: COMMON NORMALS: Equal, round and reactive pupils present and EOMs intact bilaterally PUPIL: Yes Equal, round and reactive pupils present Neck/C-Spine: GENERAL: Yes trachea midline Chest: CHEST: Yes Symmetrical chest wall rise Resp: COMMON NORMALS: normal respiratory effort, No use of accessory muscles and clear to auscultation bilaterally AUSCULTATION: clear to auscultation bilaterally Cardio: COMMON NORMALS: regular rate and regular rhythm RATE: regular rate RHYTHM: regular rhythm GI: COMMON NORMALS: Soft to palpation INSPECTION: Yes abdominal distension PALPATION: Yes Soft to palpation and No Guarding due to palpation present (GI) Extremity: GENERAL: Yes edema (1+) Neuro: FINA COMA SCALE: document GCS findings [place] coma scale eye opening: Spontaneous Fina coma scale verbal response: Orientated Fina coma scale motor response: Obey commands [place] coma scale total score: 15 Course Vital Signs: Vital signs: Vital Signs Temperature 97.7 F 09/13/22 05:54 Pulse Rate 89 09/13/22 05:54 Respiratory Rate 16 09/13/22 05:54 Blood Pressure 167/96 09/13/22 05:54 Pulse Oximetry 90 09/13/22 05:54 Oxygen Delivery Me thod Room Air 09/13/22 03:00 MDM - General Adult Medical Decision Making 57 year old male well known to the emergency department. He often comes in for blood pressure problems related to end stage renal disease. Blood pressure is significantly improved after IV labetalol and topical nitroglycerin. He is due for his oral blood pressure medications this morning. He is encouraged to take them when he gets home. Symptoms were improved. He never really had any chest pain. He is oxygenating. Chest X-ray shows early pulmonary edema. He is due for dialysis in 24 hours. He will return for worsening shortness of breath if needed prior to scheduled dialysis. Lab Data 09/13/22 04:12 09/13/22 04:12 Radiology Impressions Chest X-Ray 09/13/22 03:19 IMPRESSION: Mildly decreased lung volumes. [id number] right and mild left perihilar interstitial opacities. This may represent asymmetric pulmonary edema, although underlying pneumonia cannot be excluded. Laboratory Results WBC 8.9 10^3/uL (4.0-10.0) 09/13/22 04:12 RBC 3.46 10^6/uL (4.1-5.3) L 09/13/22 04:12 Hgb 10.7 g/dL (11.7-16.6) L 09/13/22 04:12 Hct 32.4 % (42.0-52.0) L 09/13/22 04:12 MCV 93.6 fl (80-94) 09/13/22 04:12 MCH 30.9 pg (28.0-34.0) 09/13/22 04:12 MCHC 33.0 g/dL (30.0-36.0) 09/13/22 04:12 RDW 13.8 % (12.1-15.1) 09/13/22 04:12 Plt Count 230 10^3/cmm (130-400) 09/13/22 04:12 MPV 10.0 fL (7.4-10.4) 09/13/22 04:12 Neut % (Auto) 72.4 % 09/13/22 04:12 Lymph % (Auto) 16.3 % 09/13/22 04:12 [place] % (Auto) 8.7 % 09/13/22 04:12 Eos % (Auto) 1.9 % 09/13/22 04:12 Baso % (Auto) 0.4 % 09/13/22 04:12 Neut # (Auto) 6.43 10^3/uL (1.8-7.7) 09/13/22 04:12 Lymph # (Auto) 1.5 10^3/uL (0.8-4.8) 09/13/22 04:12 [place] # (Auto) 0.8 10^3/uL (0.2-0.9) 09/13/22 04:12 Eos # (Auto) 0.2 10^3/uL (0.0-0.8) 09/13/22 04:12 Baso # (Auto) 0.0 10^3/uL (0.0-0.1) 09/13/22 04:12 Nucleated RBC % (auto) 0 % 09/13/22 04:12 Nucleated RBCs # 0.0 /100WBC 09/13/22 04:12 Sodium 138 mmol/L (136-145) 09/13/22 04:12 Potassium 4.7 mmol/L (3.5-5.1) 09/13/22 04:12 Chloride 97 mmol/L (98-107) L 09/13/22 04:12 Carbon Dioxide 24 mmol/L (22-29) 09/13/22 04:12 Anion Gap 21.7 (5-19) H 09/13/22 04:12 BUN 76 mg/dL (6-20) H 09/13/22 04:12 Creatinine 8.3 mg/dL (0.7-1.2) H* 09/13/22 04:12 GFR Calculation 6.7 mL/min (90-130) L 09/13/22 04:12 Glucose 80 mg/dL (65-115) 09/13/22 04:12 Calculated Osmolality 308 mOsm/kg (285-295) H 09/13/22 04:12 Calcium 9.9 mg/dL (8.5-10.5) 09/13/22 04:12 Phosphorus 9.2 mg/dL (2.5-4.5) H* 09/13/22 04:12 Magnesium 2.3 mg/dL (1.7-2.3) 09/13/22 04:12 Total Bilirubin 0.3 mg/dL (0.15-1.2) 09/13/22 04:12 AST 22 U/L (0-40) 09/13/22 04:12 ALT 12 U/L (0-41) 09/13/22 04:12 Alkaline Phosphatase 66 U/L (40-130) 09/13/22 04:12 Total Protein 5.6 g/dL (6.6-8.7) L 09/13/22 04:12 Albumin 3.5 g/dL (3.5-5.2) 09/13/22 04:12 Globulin 2.1 g/dL (1.3-4.6) 09/13/22 04:12 Discharge Plan Discharge Patient Disposition: Home Clinical Impression: Hypertension, Pulmonary edema, End stage renal disease on dialysis Condition: Stable Prescriptions: No Action isosorbide mononitrate 60 mg tablet extended release 24 hr 60 mg PO DAILY simvastatin 40 mg tablet 40 mg PO DAILY cholecalciferol (vitamin D3) 125 mcg (5,000 unit) capsule 125 mcg PO DAILY alfuzosin 10 mg tablet extended release 24 hr 10 mg PO DAILY Rx Instructions: administer after the same meal each day sertraline 25 mg tablet 25 mg PO DAILY Qty: 30 0RF levothyroxine 75 mcg tablet 75 mcg PO DAILY Qty: 60 0RF Rx Instructions: to replace 50mcg tablets amlodipine 5 mg Tablet 10 mg PO DAILY Qty: 30 0RF allopurinol 100 mg Tablet 100 mg PO DAILY pantoprazole 40 mg tablet,delayed release (DR/EC) 40 mg PO DAILY lisinopril 20 mg tablet 20 mg PO DAILY cinacalcet 30 mg tablet 30 mg PO DAILY minoxidil 2.5 mg tablet 5 mg PO BID nifedipine 90 mg tablet extended release 24hr 90 mg PO DAILY hydralazine 50 mg tablet 100 mg PO TID carvedilol 25 mg tablet 25 mg PO BID Qty: 60 0RF Rx Instructions: must administer with a meal/food Auryxia 210 mg iron tablet 2 tab PO TID Fosrenol 1,000 mg powder in packet 200 mg PO TID RenaPlex-D 800 mcg-12.5 mg -2,000 unit tablet 1 tab PO DAILY Discharge Orders: Discharge ED (Routine); Ordered 09/13/22 Ordered By: Thomas Smart Referrals: Randolph Ortiz MD [Primary Care Provider] - Patient Instructions: Pulmonary Edema (ED), Hypertension (ED) Activity Restrictions/Additional Instructions: Be sure to take your blood pressure medication as soon as you get home. Return for chest discomfort, worsening shortness of breath, other concerning symptoms. Your chest x-ray showed increased fluid on your lungs, which will be helpful for your dialysis team to know Wednesday morning. Coding Level of Care Code ED Manager Procurement for Eric Sandhu
[2022-09-13 04:19] LABS: Basophils % 0.4 %; Eosinophils # 0.2 10^3/uL (0.0-0.8); Eosinophils % 1.9 %; Hematocrit 32.4 % (42.0-52.0); Hemoglobin 10.7 g/dL (11.7-16.6); Lymphocytes # 1.5 10^3/uL (0.8-4.8); Lymphocytes % 16.3 %; Mean Corpuscular Hemoglobin 30.9 pg (28.0-34.0); Mean Corpuscular Volume 93.6 fl (80-94); Monocytes # 0.8 10^3/uL (0.2-0.9); Monocytes % 8.7 %; Neutrophils # 6.43 10^3/uL (1.8-7.7); Neutrophils % 72.4 %; Nucleated Red Blood Cells % 0 %; Platelet Count 230 10^3/cmm (130-400); Red Blood Count 3.46 10^6/uL (4.1-5.3); Red Cell Distribution Width 13.8 % (12.1-15.1); White Blood Count 8.9 10^3/uL (4.0-10.0)
[2022-09-13 04:43] LABS: Alanine Aminotransferase 12 U/L (0-41); Albumin Level 3.5 g/dL (3.5-5.2); Alkaline Phosphatase 66 U/L (40-130); Anion Gap 21.7 (5-19); Aspartate Amino Transferase 22 U/L (0-40); Blood Urea Nitrogen 76 mg/dL (6-20); Calcium 9.9 mg/dL (8.5-10.5); Carbon Dioxide 24 mmol/L (22-29); Chloride 97 mmol/L (98-107); Globulin 2.1 g/dL (1.3-4.6); Glomerular Filtration Rate 6.7 mL/min (90-130); Glucose 80 mg/dL (65-115); Magnesium 2.3 mg/dL (1.7-2.3); Osmolality Calculated 308 mOsm/kg (285-295); Potassium 4.7 mmol/L (3.5-5.1); Sodium 138 mmol/L (136-145); Total Bilirubin 0.3 mg/dL (0.15-1.2); Total Protein 5.6 g/dL (6.6-8.7)
[2022-09-13 04:50] LABS: Phosphorus 9.2 mg/dL (2.5-4.5)
== END 2022-09-13 05:55 | disposition home or self-care (01) ==
PROVIDERS: Emergency Provider Emergency Medicine; PCP Family Medicine
DX: I12.0 Hypertensive chronic kidney disease with stage 5 chronic kidney disease or end stage renal disease (principal); N18.6 End stage renal disease; Z99.2 Dependence on renal dialysis; Z86.73 Personal history of transient ischemic attack (TIA), and cerebral infarction without residual deficits; F17.210 Nicotine dependence, cigarettes, uncomplicated; F17.220 Nicotine dependence, chewing tobacco, uncomplicated; J81.1 Chronic pulmonary edema
CPT/HCPCS: 71045; 80053; 83735; 84100; 85025; 93005; 96374; 96375; 96376; 99285; J2405; J3490

== ENCOUNTER 2022-09-19 22:55 | Emergency (ER) | payer MEDICARE, MEDICAID, SELFPAY ==
[2022-09-19 22:58] VITALS: BP 164/85; PULSE 95; RESP 16; O2SAT 98
[2022-09-19 23:00] VITALS: BP 147/87; PULSE 88; RESP 22; O2SAT 96
[2022-09-19 23:55] VITALS: BP 157/93
== END 2022-09-19 23:57 | disposition left against medical advice (07) ==
PROVIDERS: Emergency Provider Family Medicine; PCP Family Medicine
DX: Z53.21 Procedure and treatment not carried out due to patient leaving prior to being seen by health care provider (principal)

== ENCOUNTER → 2022-09-22 09:53 | Day surgery (SDC) | payer MEDICARE, MEDICAID, SELFPAY ==
[2022-09-21 08:13] VITALS: BMI 28.1
--- NOTE | 2022-09-22 10:08 | US_ITS ---
WS: [id number] ULTRASOUND-GUIDED PARACENTESIS CLINICAL INFORMATION: ascities COMPARISON: None. Procedure Informed consent: The risks, benefits, and alternatives of the procedure were discussed with the lisa ent. Verbal and written consent was obtained. Timeout: A timeout was performed to confirm the correct patient, procedure, and site. Preparation: A suitable skin site was identified. The patient was prepped and draped in usual sterile fashion. Lidocaine 1% was used for local anesthesia. Catheter: 4 Khmer One-step Yueh catheter. Side: RIGHT Lower quadrant. Fluid Volume: 9000 cc Color: Clear yellow DISPOSITION: Discarded safely. Complications: None. Patient disposition: Discharged from the department in stable condition. US/US paracentesis abd w [id number] IMPRESSION: Uncomplicated ultrasound-guided paracentesis. Removal of 9000 cc
[2022-09-22 10:15] VITALS: BP 209/111; PULSE 87; RESP 20; TEMP 37.1; O2SAT 95
--- NOTE | 2022-09-22 10:27 | PC.NURSE ---
Initial blood pressure 209/111. Dr. Seymour notified. Orders to continue with paracentesis at this time. Will continue to monitor patient.
[2022-09-22] MEDS: albumin 75 G/300 ML BAG 60 G IV (11:23)
[2022-09-22 11:59] VITALS: BP 200/103; PULSE 87; RESP 20; O2SAT 97
== END ==
PROVIDERS: Radiology Neuroradiology; PCP Family Medicine; Visit Provider Internal Medicine Nephrology
PROC: (CPT 49082; principal; 2022-09-22 12:00)
DX: R18.8 Other ascites (principal)
CPT/HCPCS: 49083; 96365; P9046

== ENCOUNTER 2022-09-29 10:47 | Day surgery (SDC) | payer MEDICARE, MEDICAID, SELFPAY ==
[2022-09-29 11:03] VITALS: BP 194/102; PULSE 70; RESP 18; TEMP 36.3; O2SAT 94
[2022-09-29 11:05] VITALS: BMI 27.3
--- NOTE | 2022-09-29 11:05 | PC.NURSE ---
unable to update patients medication list, pt doesn't know what medications he takes.
--- NOTE | 2022-09-29 11:29 | US_ITS ---
WS: [id number] ULTRASOUND-GUIDED THERAPEUTIC PARACENTESIS Procedure, risks, and complications have been explained to the patient. Consent is obtained. Utilizing aseptic technique and 1% buffered lidocaine, a small dermatome was made through which a 5 F rench Yueh catheter was inserted. Approximately 5500 ml of clear peritoneal fluid was obtained witho ut difficulty. No complications encountered. US/US paracentesis abd w [id number] IMPRESSION: Uncomplicated paracentesis yielding 5500 ml of peritoneal fluid.
[2022-09-29 12:49] VITALS: BP 181/93; PULSE 82; RESP 17; O2SAT 93
== END 2022-09-29 12:51 | disposition home or self-care (01) ==
LOC: GILAB 10:48
PROVIDERS: Radiology Diagnostic Radiology; PCP Family Medicine; Visit Provider Internal Medicine Nephrology
PROC: 0W9G3ZZ Drainage of Peritoneal Cavity, Percutaneous Approach (ICD-10-PCS; principal; 2022-09-29 12:00)
DX: R18.8 Other ascites (principal)
CPT/HCPCS: 49083; 96365; P9047

== ENCOUNTER 2022-10-01 05:22 | Emergency (ER) | payer MEDICARE, MEDICAID, SELFPAY ==
[2022-10-01 05:35] VITALS: BP 132/80; PULSE 75; RESP 20; TEMP 36.8; O2SAT 94; BMI 27.3
--- NOTE | 2022-10-01 05:38 | ED_ITS ---
Documented by User: Ghada Fontanez MD 10/01/22 05:42 HPI - Nausea/Vomiting/Diarrhea General: Chief complaint: Nausea/Vomiting/Diarrhea Stated complaint: high bp Time Seen by Provider: 10/01/22 05:37 Source: patient Mode of arrival: ambulatory Limitations: no limitations History of Present Illness: 57-year-old male who has a history of end-stage renal disease he is on dialysis he states that over the last day he has felt nauseous with some diarrhea. He states that he had had high blood pressure at home his blood pressure here is normal he missed his dialysis yesterday. He denies any severe pain denies any worsening proving factors. Associated nausea: Yes Associated symtoms: Reports nausea; Denies chest pain, dysuria or headache(s) Review of Systems Const: Denies: fever(s), chills, body aches or change in appetite Eyes: Denies: blurry vision or eye discomfort ENMT: Denies: throat pain or dental pain Card: Denies: chest pain Resp: Denies: dyspnea GI: Reports: nausea and diarrhea; Denies: abdominal pain or vomiting : Denies: dysuria Musc: Denies: neck pain or back pain Skin/Breast: Denies: rash Neuro: Denies: headache(s) Psych: Denies: depression Lucas/Lymph: Denies: easy bruising All/Imm: Denies: urticaria PFSH ED PFSH: Medical History Bilateral hydronephrosis Bradycardia Chronic anemia CVA (cerebral vascular accident) Dependence on peritoneal dialysis Dilated aortic root ESRD (end stage renal disease) GERD (gastroesophageal reflux disease) History of stroke Hypertension Hypothyroidism Incomplete bladder emptying Neuropathy, lumbosacral (radicular) Polycystic kidney disease Right bundle branch block (RBBB) on electrocardiogram (ECG) Surgical History AV fistula History of colonoscopy 2019 at [facility] History of surgical procedure Peritoneal dialysis catheter placement by Dr. Kamara 2015 S/P hemodialysis catheter insertion (03/13/20) 23cm long exchanged right IJ Removed on 06/11/2020 Family History Mother Chronic kidney disease (CKD) Stroke Father Cancer lung Brother Hypertension Denies family history of Diabetes CAD (coronary artery disease) Clotting disorder Dementia Hyperlipidemia Psychiatric illness Anesthesia complication Bleeding disorder Lung disease Social History Smoking and tobacco status: current every day smoker cigarettes [ Other cigarette details: Half a pack per day for last 20-30 years] Alcohol intake: never Substance/Drug Use: current Substance/Drug use frequency: few times a week Lives independently: Yes Household members: family Housing: House Marital status: Number of children: 1 Current occupational status: disabled Current gender identity: Male Agree to transfusion: Yes Physical Exam Const: COMMON NORMALS: patient oriented x3 HENMT: COMMON NORMALS: normocephalic and atraumatic HEAD & SCALP: normocephalic and atraumatic Eye: COMMON NORMALS: conjunctivae normal CONJUNCTIVA: Yes conjunctivae normal Neck/C-Spine: COMMON NORMALS: full ROM and supple Chest: COMMONS NORMALS: normal inspection of the chest and normal palpation of entire chest wall Resp: COMMON NORMALS: normal respiratory effort, No retractions, No use of accessory muscles and clear to auscultation bilaterally AUSCULTATION: clear to auscultation bilaterally Cardio: COMMON NORMALS: regular rate, regular rhythm and No murmurs present (Cardio) RATE: regular rate RHYTHM: regular rhythm GI: COMMON NORMALS: Normal to inspection, nondistended, normoactive bowel sounds present, Soft to palpation, non-tender and no masses PALPATION: Yes Soft to palpation Extremity: COMMON NORMALS: normal to inspection and full ROM Neuro: COMMON NORMALS: patient oriented x3, moves all extremities and no focal motor deficits Psych: COMMON NORMALS: mental status grossly normal, Normal thought process present and cooperative THOUGHT PROCESS: Normal thought process present Skin: COMMON NORMALS: no rashes or lesions noted and no wounds GENERAL SKIN EXAM: no rashes or lesions noted Course Vital Signs: Vital signs: Vital Signs Temperature 98.2 F 10/01/22 05:35 Pulse Rate 103 H 10/01/22 06:30 Respiratory Rate 18 10/01/22 06:30 Blood Pressure 149/90 10/01/22 06:30 Pulse Oximetry 97 10/01/22 06:30 Oxygen Delivery Me thod Room Air 10/01/22 06:30 MDM - Nausea/Vomiting/Diarrhea Lab Data 10/01/22 05:40 10/01/22 05:40 Laboratory Results WBC 8.1 10^3/uL (4.0-10.0) 10/01/22 05:40 RBC 2.99 10^6/uL (4.1-5.3) L 10/01/22 05:40 Hgb 9.1 g/dL (11.7-16.6) L 10/01/22 05:40 Hct 27.7 % (42.0-52.0) L 10/01/22 05:40 MCV 92.6 fl (80-94) 10/01/22 05:40 MCH 30.4 pg (28.0-34.0) 10/01/22 05:40 MCHC 32.9 g/dL (30.0-36.0) 10/01/22 05:40 RDW 13.8 % (12.1-15.1) 10/01/22 05:40 Plt Count 198 10^3/cmm (130-400) 10/01/22 05:40 MPV 9.3 fL (7.4-10.4) 10/01/22 05:40 Neut % (Auto) 74.6 % 10/01/22 05:40 Lymph % (Auto) 12.7 % 10/01/22 05:40 Norton % (Auto) 10.3 % 10/01/22 05:40 Eos % (Auto) 1.7 % 10/01/22 05:40 Baso % (Auto) 0.2 % 10/01/22 05:40 Neut # (Auto) 6.03 10^3/uL (1.8-7.7) 10/01/22 05:40 Lymph # (Auto) 1.0 10^3/uL (0.8-4.8) 10/01/22 05:40 Norton # (Auto) 0.8 10^3/uL (0.2-0.9) 10/01/22 05:40 Eos # (Auto) 0.1 10^3/uL (0.0-0.8) 10/01/22 05:40 Baso # (Auto) 0.0 10^3/uL (0.0-0.1) 10/01/22 05:40 Nucleated RBC % (auto) 0 % 10/01/22 05:40 Nucleated RBCs # 0.0 /100WBC 10/01/22 05:40 Sodium 137 mmol/L (136-145) 10/01/22 05:40 Potassium 4.5 mmol/L (3.5-5.1) 10/01/22 05:40 Chloride 97 mmol/L (98-107) L 10/01/22 05:40 Carbon Dioxide 25 mmol/L (22-29) 10/01/22 05:40 Anion Gap 19.5 (5-19) H 10/01/22 05:40 BUN 79 mg/dL (6-20) H 10/01/22 05:40 Creatinine 7.7 mg/dL (0.7-1.2) H* 10/01/22 05:40 GFR Calculation 7.3 mL/min (90-130) L 10/01/22 05:40 Glucose 98 mg/dL (65-115) 10/01/22 05:40 Calculated Osmolality 308 mOsm/kg (285-295) H 10/01/22 05:40 Calcium 9.8 mg/dL (8.5-10.5) 10/01/22 05:40 Total Bilirubin 0.3 mg/dL (0.15-1.2) 10/01/22 05:40 AST 20 U/L (0-40) 10/01/22 05:40 ALT 8 U/L (0-41) 10/01/22 05:40 Alkaline Phosphatase 57 U/L (40-130) 10/01/22 05:40 Total Protein 5.3 g/dL (6.6-8.7) L 10/01/22 05:40 Albumin 3.4 g/dL (3.5-5.2) L 10/01/22 05:40 Globulin 1.9 g/dL (1.3-4.6) 10/01/22 05:40 Lipase 77 U/L (13-60) H 10/01/22 05:40 Discharge Plan Discharge Patient Disposition: Home Clinical Impression: Dyspepsia, Chronic anemia, ESRD (end stage renal disease), Hypertension Condition: Stable Prescriptions: New Carafate 1 gram tablet 1 g PO Q6H PRN (Reason: dyspepsia/stomach upset) 28 Days Qty: 112 0RF No Action isosorbide mononitrate 60 mg tablet extended release 24 hr 60 mg PO DAILY simvastatin 40 mg tablet 40 mg PO DAILY ondansetron HCl 4 mg tablet 4 mg PO Q8H Qty: 10 0RF cholecalciferol (vitamin D3) 125 mcg (5,000 unit) capsule 125 mcg PO DAILY alfuzosin 10 mg tablet extended release 24 hr 10 mg PO DAILY Rx Instructions: administer after the same meal each day hydroxyzine HCl 25 mg tablet 25 mg PO TID PRN (Reason: itching) Qty: 90 0RF Rx Instructions: itching sertraline 50 mg tablet 50 mg PO DAILY Qty: 90 0RF levothyroxine 75 mcg tablet 75 mcg PO DAILY Qty: 60 0RF Rx Instructions: to replace 50mcg tablets amlodipine 5 mg Tablet 10 mg PO DAILY Qty: 30 0RF allopurinol 100 mg Tablet 100 mg PO DAILY pantoprazole 40 mg tablet,delayed release (DR/EC) 40 mg PO DAILY lisinopril 20 mg tablet 20 mg PO DAILY cinacalcet 30 mg tablet 30 mg PO DAILY minoxidil 2.5 mg tablet 5 mg PO BID nifedipine 90 mg tablet extended release 24hr 90 mg PO DAILY hydralazine 50 mg tablet 100 mg PO TID Auryxia 210 mg iron tablet 2 tab PO TID Fosrenol 1,000 mg powder in packet 200 mg PO TID RenaPlex-D 800 mcg-12.5 mg -2,000 unit tablet 1 tab PO DAILY Discharge Orders: Discharge ED (Routine); Ordered 10/01/22 Ordered By: Marvin Tilley Referrals: Randolph Ortiz MD [Primary Care Provider] - Patient Instructions: Opioid Safety, Pain Management Activity Restrictions/Additional Instructions: You were seen today for stomach upset. 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 It is critically important for you to have your dialysis tomorrow. You are given Carafate to use as needed for stomach upset. If you have any worsening or change or problems return to the emergency room. Sign Out Sign Out Data: Patient Sign Out occurred on 10/01/22 at 06:31. Patient's care was discussed, and care was transferred from to Marvin Tilley DO. Coding Level of Care Code ED Home Appliance Tech for Chg Fwd Documented by User: Marvin Tilley DO 10/01/22 11:21 HPI - Nausea/Vomiting/Diarrhea General: Chief complaint: Nausea/Vomiting/Diarrhea Stated complaint: high bp Time Seen by Provider: 10/01/22 05:37 PFSH ED PFSH: Medical History Bilateral hydronephrosis Bradycardia Chronic anemia CVA (cerebral vascular accident) Dependence on peritoneal dialysis Dilated aortic root ESRD (end stage renal disease) GERD (gastroesophageal reflux disease) History of stroke Hypertension Hypothyroidism Incomplete bladder emptying Neuropathy, lumbosacral (radicular) Polycystic kidney disease Right bundle branch block (RBBB) on electrocardiogram (ECG) Surgical History AV fistula History of colonoscopy 2019 at [facility] History of surgical procedure Peritoneal dialysis catheter placement by Dr. Kamara 2016 S/P hemodialysis catheter insertion (03/13/20) 23cm long exchanged right IJ Removed on 06/11/2020 Family History Mother Chronic kidney disease (CKD) Stroke Father Cancer lung Brother Hypertension Denies family history of Diabetes CAD (coronary artery disease) Clotting disorder Dementia Hyperlipidemia Psychiatric illness Anesthesia complication Bleeding disorder Lung disease Social History Smoking and tobacco status: current every day smoker cigarettes [ Other cigarette details: Half a pack per day for last 20-30 years] Alcohol intake: never Substance/Drug Use: current Substance/Drug use frequency: few times a week Lives independently: Yes Household members: family Housing: House Marital status: Number of children: 1 Current occupational status: disabled Current gender identity: Male Agree to transfusion: Yes Course Vital Signs: Vital signs: Vital Signs Temperature 98.2 F 10/01/22 05:35 Pulse Rate 103 H 10/01/22 06:30 Respiratory Rate 18 10/01/22 06:30 Blood Pressure 149/90 10/01/22 06:30 Pulse Oximetry 97 10/01/22 06:30 Oxygen Delivery Me thod Room Air 10/01/22 06:30 MDM - Nausea/Vomiting/Diarrhea Medical Decision Making Care assumed from Dr. Fontanez at change of shift patient seen and evaluated patient chest clear heart regular. Abdomen distended. Discussed with the patient possibility of having dialysis run today he does not want to do that he wants to wait until tomorrow. He states the only reason he came in today was be cause his stomach was bothering him. We will go ahead and discharge him home. He states his stomach feels better. We will discharge him home with Carafate to use as needed Medical Records I reviewed the patient's medical records. Lab Data I reviewed the patient's lab results. 10/01/22 05:40 10/01/22 05:40 Laboratory Results WBC 8.1 10^3/uL (4.0-10.0) 10/01/22 05:40 RBC 2.99 10^6/uL (4.1-5.3) L 10/01/22 05:40 Hgb 9.1 g/dL (11.7-16.6) L 10/01/22 05:40 Hct 27.7 % (42.0-52.0) L 10/01/22 05:40 MCV 92.6 fl (80-94) 10/01/22 05:40 MCH 30.4 pg (28.0-34.0) 10/01/22 05:40 MCHC 32.9 g/dL (30.0-36.0) 10/01/22 05:40 RDW 13.8 % (12.1-15.1) 10/01/22 05:40 Plt Count 198 10^3/cmm (130-400) 10/01/22 05:40 MPV 9.3 fL (7.4-10.4) 10/01/22 05:40 Neut % (Auto) 74.6 % 10/01/22 05:40 Lymph % (Auto) 12.7 % 10/01/22 05:40 Norton % (Auto) 10.3 % 10/01/22 05:40 Eos % (Auto) 1.7 % 10/01/22 05:40 Baso % (Auto) 0.2 % 10/01/22 05:40 Neut # (Auto) 6.03 10^3/uL (1.8-7.7) 10/01/22 05:40 Lymph # (Auto) 1.0 10^3/uL (0.8-4.8) 10/01/22 05:40 Norton # (Auto) 0.8 10^3/uL (0.2-0.9) 10/01/22 05:40 Eos # (Auto) 0.1 10^3/uL (0.0-0.8) 10/01/22 05:40 Baso # (Auto) 0.0 10^3/uL (0.0-0.1) 10/01/22 05:40 Nucleated RBC % (auto) 0 % 10/01/22 05:40 Nucleated RBCs # 0.0 /100WBC 10/01/22 05:40 Sodium 137 mmol/L (136-145) 10/01/22 05:40 Potassium 4.5 mmol/L (3.5-5.1) 10/01/22 05:40 Chloride 97 mmol/L (98-107) L 10/01/22 05:40 Carbon Dioxide 25 mmol/L (22-29) 10/01/22 05:40 Anion Gap 19.5 (5-19) H 10/01/22 05:40 BUN 79 mg/dL (6-20) H 10/01/22 05:40 Creatinine 7.7 mg/dL (0.7-1.2) H* 10/01/22 05:40 GFR Calculation 7.3 mL/min (90-130) L 10/01/22 05:40 Glucose 98 mg/dL (65-115) 10/01/22 05:40 Calculated Osmolality 308 mOsm/kg (285-295) H 10/01/22 05:40 Calcium 9.8 mg/dL (8.5-10.5) 10/01/22 05:40 Total Bilirubin 0.3 mg/dL (0.15-1.2) 10/01/22 05:40 AST 20 U/L (0-40) 10/01/22 05:40 ALT 8 U/L (0-41) 10/01/22 05:40 Alkaline Phosphatase 57 U/L (40-130) 10/01/22 05:40 Total Protein 5.3 g/dL (6.6-8.7) L 10/01/22 05:40 Albumin 3.4 g/dL (3.5-5.2) L 10/01/22 05:40 Globulin 1.9 g/dL (1.3-4.6) 10/01/22 05:40 Lipase 77 U/L (13-60) H 10/01/22 05:40 Discharge Plan Discharge Patient Disposition: Home Clinical Impression: Dyspepsia, Chronic anemia, ESRD (end stage renal disease), Hypertension Condition: Stable Prescriptions: New Carafate 1 gram tablet 1 g PO Q6H PRN (Reason: dyspepsia/stomach upset) 28 Days Qty: 112 0RF No Action isosorbide mononitrate 60 mg tablet extended release 24 hr 60 mg PO DAILY simvastatin 40 mg tablet 40 mg PO DAILY ondansetron HCl 4 mg tablet 4 mg PO Q8H Qty: 10 0RF cholecalciferol (vitamin D3) 125 mcg (5,000 unit) capsule 125 mcg PO DAILY alfuzosin 10 mg tablet extended release 24 hr 10 mg PO DAILY Rx Instructions: administer after the same meal each day hydroxyzine HCl 25 mg tablet 25 mg PO TID PRN (Reason: itching) Qty: 90 0RF Rx Instructions: itching sertraline 50 mg tablet 50 mg PO DAILY Qty: 90 0RF levothyroxine 75 mcg tablet 75 mcg PO DAILY Qty: 60 0RF Rx Instructions: to replace 50mcg tablets amlodipine 5 mg Tablet 10 mg PO DAILY Qty: 30 0RF allopurinol 100 mg Tablet 100 mg PO DAILY pantoprazole 40 mg tablet,delayed release (DR/EC) 40 mg PO DAILY lisinopril 20 mg tablet 20 mg PO DAILY cinacalcet 30 mg tablet 30 mg PO DAILY minoxidil 2.5 mg tablet 5 mg PO BID nifedipine 90 mg tablet extended release 24hr 90 mg PO DAILY hydralazine 50 mg tablet 100 mg PO TID Auryxia 210 mg iron tablet 2 tab PO TID Fosrenol 1,000 mg powder in packet 200 mg PO TID RenaPlex-D 800 mcg-12.5 mg -2,000 unit tablet 1 tab PO DAILY Discharge Orders: Discharge ED (Routine); Ordered 10/01/22 Ordered By: Marvin Tilley Referrals: Randolph Ortiz MD [Primary Care Provider] - Patient Instructions: Opioid Safety, Pain Management Activity Restrictions/Additional Instructions: You were seen today for stomach upset. 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 It is critically important for you to have your dialysis tomorrow. You are given Carafate to use as needed for stomach upset. If you have any worsening or change or problems return to the emergency room. Sign Out Sign Out Data: Patient Sign Out occurred on 10/01/22 at 06:31. Patient's care was discussed, and care was transferred from to Marvin Tilley DO. Coding Level of Care Code ED Home Appliance Tech for Eric Sandhu
--- NOTE | 2022-10-01 05:38 | ECG_ITS ---
[facility] Test Date: 2022-10-01 Pat Name: Navneet Savage Department: Room: Gender: Male Geodesist: : 1965 Requested By: Ghada Fontanez Order Number: [id number] Nate MD: Gaston Guillaume M.D. Measurements Intervals [place] Rate: 74 P: 20 SC: 152 QRS: -34 QRSD: 101 T: -1 QT: 430 QTc: 478 Interpretive Statements SINUS RHYTHM LEFT AXIS DEVIATION [QRS AXIS < -30] MINIMAL VOLTAGE CRITERIA FOR LVH, CONSIDER NORMAL VARIANT [MEETS CRITERIA IN ONE OF: R(aVL), S(V1), R(V5), R(V5/V6)+S(V1)] Compared to ECG 09/13/2022 04:06:13 Left-axis deviation now present Left anterior fascicular block no longer present Electronically Signed On 10-01-2022 14:01:35 CDT by Gaston Guillaume M.D. [email or web address]
[2022-10-01 05:40] VITALS: BP 137/75; PULSE 75; RESP 18; O2SAT 90
[2022-10-01] MEDS: ondansetron 2 mg/ML SDV 2 mL 4 MG IVP (05:46)
[2022-10-01 05:47] LABS: Basophils % 0.2 %; Eosinophils # 0.1 10^3/uL (0.0-0.8); Eosinophils % 1.7 %; Hematocrit 27.7 % (42.0-52.0); Hemoglobin 9.1 g/dL (11.7-16.6); Lymphocytes % 12.7 %; Mean Corpuscular HGB Conc 32.9 g/dL (30.0-36.0); Mean Corpuscular Hemoglobin 30.4 pg (28.0-34.0); Mean Corpuscular Volume 92.6 fl (80-94); Mean Platelet Volume 9.3 fL (7.4-10.4); Monocytes # 0.8 10^3/uL (0.2-0.9); Monocytes % 10.3 %; Neutrophils # 6.03 10^3/uL (1.8-7.7); Neutrophils % 74.6 %; Nucleated Red Blood Cells % 0 %; Platelet Count 198 10^3/cmm (130-400); Red Blood Count 2.99 10^6/uL (4.1-5.3); Red Cell Distribution Width 13.8 % (12.1-15.1); White Blood Count 8.1 10^3/uL (4.0-10.0)
[2022-10-01 06:04] LABS: Alanine Aminotransferase 8 U/L (0-41); Albumin Level 3.4 g/dL (3.5-5.2); Alkaline Phosphatase 57 U/L (40-130); Anion Gap 19.5 (5-19); Aspartate Amino Transferase 20 U/L (0-40); Blood Urea Nitrogen 79 mg/dL (6-20); Calcium 9.8 mg/dL (8.5-10.5); Carbon Dioxide 25 mmol/L (22-29); Chloride 97 mmol/L (98-107); Globulin 1.9 g/dL (1.3-4.6); Glomerular Filtration Rate 7.3 mL/min (90-130); Glucose 98 mg/dL (65-115); Lipase 77 U/L (13-60); Osmolality Calculated 308 mOsm/kg (285-295); Potassium 4.5 mmol/L (3.5-5.1); Sodium 137 mmol/L (136-145); Total Bilirubin 0.3 mg/dL (0.15-1.2); Total Protein 5.3 g/dL (6.6-8.7)
[2022-10-01 06:10] VITALS: BP 155/87; PULSE 89; RESP 15; O2SAT 94
[2022-10-01 06:30] VITALS: BP 149/90; PULSE 103; RESP 18; O2SAT 97
== END 2022-10-01 07:18 | disposition home or self-care (01) ==
PROVIDERS: Emergency Medicine; Emergency Provider Family Medicine; PCP Family Medicine
DX: R10.13 Epigastric pain (principal); D64.89 Other specified anemias; I12.0 Hypertensive chronic kidney disease with stage 5 chronic kidney disease or end stage renal disease; N18.6 End stage renal disease; Z99.2 Dependence on renal dialysis; Z86.73 Personal history of transient ischemic attack (TIA), and cerebral infarction without residual deficits; F17.210 Nicotine dependence, cigarettes, uncomplicated
CPT/HCPCS: 80053; 83690; 85025; 93005; 96374; 99284; J2405

== ENCOUNTER 2022-10-04 20:36 | Emergency (ER) | payer MEDICARE, MEDICAID, SELFPAY ==
[2022-10-04] VITALS (8 sets, daily range): BP systolic 171–217; BP diastolic 95–121; PULSE 74–92; RESP 16–19; TEMP 36.8; O2SAT 94–98; BMI 27.3
--- NOTE | 2022-10-04 21:07 | XRR_ITS ---
PROCEDURE INFORMATION: Exam: XR Chest Exam date and time: 10/04/2022 9:11 PM Age: 57 years old Clinical indication: Pain; Chest pressure; Additional info: HTN TECHNIQUE: Imaging protocol: Radiologic exam of the chest. Views: 1 view. COMPARISON: CR (CHEST, ) 09/13/2022 2:54 AM FINDINGS: Lungs: Left lower lobe atelectasis versus infiltrate. Pleural spaces: Unremarkable. No pleural effusion. No pneumothorax. Heart/Mediastinum: Unremarkable. No cardiomegaly. Bones/joints: Unremarkable. XR/XR chest 1V portable [id number] IMPRESSION: Left lower lobe atelectasis versus infiltrate.
--- NOTE | 2022-10-04 21:16 | ECG_ITS ---
[facility] Test Date: 2022-10-04 Pat Name: Navneet Savage Department: Room: Gender: Male Sybase Developer: : 1965 Requested By: Thomas Richardson Order Number: [id number] Nate MD: China Wheat M.D. Measurements Intervals [place] Rate: 79 P: 22 RI: 152 QRS: -39 QRSD: 100 T: 48 QT: 409 QTc: 471 Interpretive Statements SINUS RHYTHM LEFT AXIS DEVIATION [QRS AXIS < -30] MINIMAL VOLTAGE CRITERIA FOR LVH, CONSIDER NORMAL VARIANT [MEETS CRITERIA IN ONE OF: R(aVL), S(V1), R(V5), R(V5/V6)+S(V1)] SEPTAL MYOCARDIAL INFARCTION , OF INDETERMINATE AGE [40+ ms Q WAVE IN V1/V2] Compared to ECG 10/01/2022 05:46:04 Myocardial infarct finding now present Electronically Signed On 10-06-2022 0:07:21 CDT by China Wheat M.D. [id number]
[2022-10-04 21:21] LABS: Basophils % 0.2 %; Eosinophils # 0.2 10^3/uL (0.0-0.8); Eosinophils % 1.9 %; Hematocrit 27.4 % (42.0-52.0); Lymphocytes # 1.3 10^3/uL (0.8-4.8); Lymphocytes % 15.8 %; Mean Corpuscular HGB Conc 32.8 g/dL (30.0-36.0); Mean Corpuscular Hemoglobin 30.4 pg (28.0-34.0); Mean Corpuscular Volume 92.6 fl (80-94); Mean Platelet Volume 9.2 fL (7.4-10.4); Monocytes # 0.8 10^3/uL (0.2-0.9); Monocytes % 10.3 %; Neutrophils # 5.74 10^3/uL (1.8-7.7); Neutrophils % 71.6 %; Nucleated Red Blood Cells % 0 %; Platelet Count 219 10^3/cmm (130-400); Red Blood Count 2.96 10^6/uL (4.1-5.3); Red Cell Distribution Width 13.7 % (12.1-15.1)
[2022-10-04] MEDS: nitroglycerin 1 gm/inch oint Pkt 2 INCH TOPICAL (21:26)
[2022-10-04] MEDS: hyDRALAzine 20 mg/mL INJ 1 mL IVP ×2 (21:27→22:05)
[2022-10-04] MEDS: enalaprilat 1.25 mg/mL Inj IVP (21:27)
[2022-10-04 21:39] LABS: Alanine Aminotransferase 11 U/L (0-41); Albumin Level 3.1 g/dL (3.5-5.2); Alkaline Phosphatase 62 U/L (40-130); Anion Gap 18.8 (5-19); Aspartate Amino Transferase 21 U/L (0-40); Blood Urea Nitrogen 62 mg/dL (6-20); Calcium 9.5 mg/dL (8.5-10.5); Carbon Dioxide 24 mmol/L (22-29); Chloride 95 mmol/L (98-107); Globulin 2.2 g/dL (1.3-4.6); Glomerular Filtration Rate 7.4 mL/min (90-130); Glucose 83 mg/dL (65-115); Magnesium 2.2 mg/dL (1.7-2.3); Osmolality Calculated 293 mOsm/kg (285-295); Potassium 4.8 mmol/L (3.5-5.1); Sodium 133 mmol/L (136-145); Total Bilirubin 0.3 mg/dL (0.15-1.2); Total Protein 5.3 g/dL (6.6-8.7)
[2022-10-04 21:40] LABS: Phosphorus 8.1 mg/dL (2.5-4.5)
--- NOTE | 2022-10-04 21:43 | ED_ITS ---
HPI - General Adult General: Chief complaint: General Medical Stated complaint: Blood Pressure High Time Seen by Provider: 10/04/22 20:59 Source: patient History of Present Illness: 57-year-old male well-known to the emergency department service. He presents with hypertension resistant to his medication today. He states that he is taking all of his medication, and is still having problems with high blood pressure. He is mildly short of breath. He does not have any chest pain. He feels weak and tired. He has dialysis tomorrow at 7 AM. Onset (ago): hour(s) Radiation: non-radiation Quality: other Associated symptoms: Reports dyspnea, headache(s), nausea, short of breath and weakness; Deny chest pain, confusion, cough, fevers/chills or vomiting Review of Systems Const: Denies: fever(s) ENMT: Denies: throat pain Card: Denies: chest pain Resp: Reports: dyspnea; Denies: productive cough or non-productive cough GI: Reports: abdominal pain (chronic) and nausea; Denies: vomiting Neuro: Reports: headache(s); Denies: confusion PFSH ED PFSH: Medical History Bilateral hydronephrosis Bradycardia Chronic anemia CVA (cerebral vascular accident) Dependence on peritoneal dialysis Dilated aortic root ESRD (end stage renal disease) GERD (gastroesophageal reflux disease) History of stroke Hypertension Hypothyroidism Incomplete bladder emptying Neuropathy, lumbosacral (radicular) Polycystic kidney disease Right bundle branch block (RBBB) on electrocardiogram (ECG) Surgical History AV fistula History of colonoscopy 2019 at [facility] History of surgical procedure Peritoneal dialysis catheter placement by Dr. Kamara 2016 S/P hemodialysis catheter insertion (03/13/20) 23cm long exchanged right IJ Removed on 06/11/2020 Family History Mother Chronic kidney disease (CKD) Stroke Father Cancer lung Brother Hypertension Denies family history of Diabetes CAD (coronary artery disease) Clotting disorder Dementia Hyperlipidemia Psychiatric illness Anesthesia complication Bleeding disorder Lung disease Social History Smoking and tobacco status: current every day smoker cigarettes [ Other cigarette details: Half a pack per day for last 20-30 years] Alcohol intake: never Substance/Drug Use: current Substance/Drug use frequency: few times a week Lives independently: Yes Household members: family Housing: House Marital status: Number of children: 1 Current occupational status: disabled Current gender identity: Male Agree to transfusion: Yes Physical Exam Const: COMMON NORMALS: no acute distress GENERAL APPEARANCE: cooperative and frail appearing; not ill appearing HENMT: COMMON NORMALS: normocephalic, atraumatic and Normal external nose present HEAD & SCALP: normocephalic and atraumatic FACE & SINUS: normal facial exam and face symmetric NOSE: Normal external nose present Eye: COMMON NORMALS: Equal, round and reactive pupils present and EOMs intact bilaterally PUPIL: Yes Equal, round and reactive pupils present Neck/C-Spine: GENERAL: Yes trachea midline Chest: CHEST: Yes Symmetrical chest wall rise Resp: COMMON NORMALS: normal respiratory effort, No retractions, No use of accessory muscles and clear to auscultation bilaterally AUSCULTATION: clear to auscultation bilaterally Cardio: COMMON NORMALS: regular rate and regular rhythm RATE: regular rate RHYTHM: regular rhythm GI: COMMON NORMALS: Normal to inspection, nondistended, normoactive bowel sounds present Extremity: GENERAL: Yes edema Neuro: FINA COMA SCALE: document GCS findings Lyons coma scale eye opening: Spontaneous Fina coma scale verbal response: Orientated Fina coma scale motor response: Obey commands Fina coma scale total score: 15 SENSORY EXAM: Yes extremities (intact) Psych: COMMON NORMALS: speech normal SPEECH: Yes normal speech Skin: COMMON NORMALS: no rashes or lesions noted GENERAL SKIN EXAM: no rashes or lesions noted Course Vital Signs: Vital signs: Vital Signs Temperature 98.2 F 10/04/22 20:46 Pulse Rate 76 10/04/22 23:13 Respiratory Rate 18 10/04/22 23:13 Blood Pressure 171/95 10/04/22 23:10 Pulse Oximetry 98 10/04/22 23:13 Oxygen Delivery Me thod Room Air 10/04/22 23:10 [facility] - General Adult Medical Decision Making No chest pain. Blood pressure after medication is 149/93. Heart rate 88, saturations 94% on room air respirations 13. EKG shows a sinus rhythm with left axis deviation [place] interval of 100 ms, no acute ST changes. Rate is 75. Chest x-ray is free of pulmonary edema or infiltrate. With improvement in his blood pressure, he will be allowed home for dialysis in the morning as an outpatient Lab Data 10/04/22 21:15 10/04/22 21:15 Radiology Impressions Chest X-Ray 10/04/22 21:07 IMPRESSION: Left lower lobe atelectasis versus infiltrate. Laboratory Results WBC 8.0 10^3/uL (4.0-10.0) 10/04/22 21:15 RBC 2.96 10^6/uL (4.1-5.3) L 10/04/22 21:15 Hgb 9.0 g/dL (11.7-16.6) L 10/04/22 21:15 Hct 27.4 % (42.0-52.0) L 10/04/22 21:15 MCV 92.6 fl (80-94) 10/04/22 21:15 MCH 30.4 pg (28.0-34.0) 10/04/22 21:15 MCHC 32.8 g/dL (30.0-36.0) 10/04/22 21:15 RDW 13.7 % (12.1-15.1) 10/04/22 21:15 Plt Count 219 10^3/cmm (130-400) 10/04/22 21:15 MPV 9.2 fL (7.4-10.4) 10/04/22 21:15 Neut % (Auto) 71.6 % 10/04/22 21:15 Lymph % (Auto) 15.8 % 10/04/22 21:15 Travis % (Auto) 10.3 % 10/04/22 21:15 Eos % (Auto) 1.9 % 10/04/22 21:15 Baso % (Auto) 0.2 % 10/04/22 21:15 Neut # (Auto) 5.74 10^3/uL (1.8-7.7) 10/04/22 21:15 Lymph # (Auto) 1.3 10^3/uL (0.8-4.8) 10/04/22 21:15 Travis # (Auto) 0.8 10^3/uL (0.2-0.9) 10/04/22 21:15 Eos # (Auto) 0.2 10^3/uL (0.0-0.8) 10/04/22 21:15 Baso # (Auto) 0.0 10^3/uL (0.0-0.1) 10/04/22 21:15 Nucleated RBC % (auto) 0 % 10/04/22 21:15 Nucleated RBCs # 0.0 /100WBC 10/04/22 21:15 Sodium 133 mmol/L (136-145) L 10/04/22 21:15 Potassium 4.8 mmol/L (3.5-5.1) 10/04/22 21:15 Chloride 95 mmol/L (98-107) L 10/04/22 21:15 Carbon Dioxide 24 mmol/L (22-29) 10/04/22 21:15 Anion Gap 18.8 (5-19) 10/04/22 21:15 BUN 62 mg/dL (6-20) H 10/04/22 21:15 Creatinine 7.6 mg/dL (0.7-1.2) H* 10/04/22 21:15 GFR Calculation 7.4 mL/min (90-130) L 10/04/22 21:15 Glucose 83 mg/dL (65-115) 10/04/22 21:15 Calculated Osmolality 293 mOsm/kg (285-295) 10/04/22 21:15 Calcium 9.5 mg/dL (8.5-10.5) 10/04/22 21:15 Phosphorus 8.1 mg/dL (2.5-4.5) H* 10/04/22 21:15 Magnesium 2.2 mg/dL (1.7-2.3) 10/04/22 21:15 Total Bilirubin 0.3 mg/dL (0.15-1.2) 10/04/22 21:15 AST 21 U/L (0-40) 10/04/22 21:15 ALT 11 U/L (0-41) 10/04/22 21:15 Alkaline Phosphatase 62 U/L (40-130) 10/04/22 21:15 Total Protein 5.3 g/dL (6.6-8.7) L 10/04/22 21:15 Albumin 3.1 g/dL (3.5-5.2) L 10/04/22 21:15 Globulin 2.2 g/dL (1.3-4.6) 10/04/22 21:15 Discharge Plan Discharge Patient Disposition: Home Clinical Impression: Hypertension Condition: Stable Prescriptions: No Action isosorbide mononitrate 60 mg tablet extended release 24 hr 60 mg PO DAILY simvastatin 40 mg tablet 40 mg PO DAILY ondansetron HCl 4 mg tablet 4 mg PO Q8H Qty: 10 0RF cholecalciferol (vitamin D3) 125 mcg (5,000 unit) capsule 125 mcg PO DAILY alfuzosin 10 mg tablet extended release 24 hr 10 mg PO DAILY Rx Instructions: administer after the same meal each day hydroxyzine HCl 25 mg tablet 25 mg PO TID PRN (Reason: itching) Qty: 90 0RF Rx Instructions: itching sertraline 50 mg tablet 50 mg PO DAILY Qty: 90 0RF levothyroxine 75 mcg tablet 75 mcg PO DAILY Qty: 60 0RF Rx Instructions: to replace 50mcg tablets amlodipine 5 mg Tablet 10 mg PO DAILY Qty: 30 0RF allopurinol 100 mg Tablet 100 mg PO DAILY pantoprazole 40 mg tablet,delayed release (DR/EC) 40 mg PO DAILY lisinopril 20 mg tablet 20 mg PO DAILY cinacalcet 30 mg tablet 30 mg PO DAILY minoxidil 2.5 mg tablet 5 mg PO BID nifedipine 90 mg tablet extended release 24hr 90 mg PO DAILY hydralazine 50 mg tablet 100 mg PO TID Auryxia 210 mg iron tablet 2 tab PO TID Fosrenol 1,000 mg powder in packet 200 mg PO TID RenaPlex-D 800 mcg-12.5 mg -2,000 unit tablet 1 tab PO DAILY Carafate 1 gram tablet 1 g PO Q6H PRN (Reason: dyspepsia/stomach upset) 28 Days Qty: 112 0RF Discharge Orders: Discharge ED (Routine); Ordered 10/04/22 Ordered By: Thomas Smart Referrals: Randolph Ortiz MD [Primary Care Provider] - Patient Instructions: Hypertension (ED), End Stage Kidney Disease (ED) Activity Restrictions/Additional Instructions: Return for chest pain, worsening shortness of breath, fever, other concerning symptoms. Attend dialysis at 7 AM as scheduled. Coding Level of Care Code ED Product Director for Efreng Phoebe
[2022-10-04] MEDS: labetalol 5 mg/mL SDV 20mL 20 MG IVP (22:21)
== END 2022-10-04 23:17 | disposition home or self-care (01) ==
PROVIDERS: Emergency Provider Emergency Medicine; PCP Family Medicine
DX: I12.0 Hypertensive chronic kidney disease with stage 5 chronic kidney disease or end stage renal disease (principal); N18.6 End stage renal disease; Z99.2 Dependence on renal dialysis; F17.210 Nicotine dependence, cigarettes, uncomplicated; Z86.73 Personal history of transient ischemic attack (TIA), and cerebral infarction without residual deficits
CPT/HCPCS: 71045; 80053; 83735; 84100; 85025; 93005; 96374; 96375; 96376; 99285; J0360; J3490

== ENCOUNTER 2022-10-06 10:29 | Day surgery (SDC) | payer MEDICARE, MEDICAID, SELFPAY ==
--- NOTE | 2022-10-06 10:53 | US_ITS ---
WS: [id number] ULTRASOUND-GUIDED PARACENTESIS CLINICAL INFORMATION: ASCITES COMPARISON: None. Procedure Informed consent: The risks, benefits, and alternatives of the procedure were discussed with the lisa ent. Verbal and written consent was obtained. Timeout: A timeout was performed to confirm the correct patient, procedure, and site. Preparation: A suitable skin site was identified. The patient was prepped and draped in usual sterile fashion. Lidocaine 1% was used for local anesthesia. Catheter: 4 Lao One-step Yueh catheter. Side: RIGHT Lower quadrant. Fluid Volume: 5850 ml Color: Clear yellow DISPOSITION: Discarded safely. Complications: None. Patient disposition: Discharged from the department in stable condition. US/US paracentesis abd w [id number] IMPRESSION: Uncomplicated ultrasound-guided paracentesis. Removal of 5850 cc
[2022-10-06 10:55] VITALS: BP 211/116; PULSE 77; RESP 18; TEMP 36.6; O2SAT 96; BMI 27.3
[2022-10-06] MEDS: albumin 75 G/300 ML BAG 300 G IV (12:02)
== END 2022-10-06 12:44 | disposition home or self-care (01) ==
LOC: GILAB 10:29
PROVIDERS: PCP Family Medicine; Visit Provider Family Medicine
PROC: (CPT 49082; principal; 2022-10-06 12:00)
DX: R18.8 Other ascites (principal)
CPT/HCPCS: 49083; 96365; P9046

== ENCOUNTER 2022-10-08 21:50 | Emergency (ER) | payer MEDICARE, MEDICAID, SELFPAY ==
[2022-10-08 22:02] VITALS: BP 176/85; PULSE 80; RESP 15; TEMP 36.7; O2SAT 97
[2022-10-08 22:04] VITALS: BP 166/91; PULSE 78; RESP 24; O2SAT 94
--- NOTE | 2022-10-08 22:08 | ECG_ITS ---
[facility] Test Date: 2022-10-08 Pat Name: Navneet Savage Department: Room: Gender: Male Jack Frame Tender: : 1965 Requested By: Ghada Fontanez Order Number: [id number] Nate MD: Dora Mustafa M.D. Measurements Intervals [place] Rate: 77 P: 21 [place]: 145 QRS: -29 QRSD: 102 T: 13 QT: 444 QTc: 503 Interpretive Statements SINUS RHYTHM WITH OCCASIONAL SUPRAVENTRICULAR PREMATURE COMPLEXES BORDERLINE LEFT AXIS DEVIATION [QRS AXIS < -20] MODERATE VOLTAGE CRITERIA FOR LVH, CONSIDER NORMAL VARIANT [MEETS CRITERIA IN ONE OF: R(aVL), S(V1), R(V5), R(V5/V6)+S(V1)] PROLONGED QT INTERVAL Compared to ECG 10/04/2022 21:16:05 Prolonged QT interval now present Myocardial infarct finding no longer present Electronically Signed On 10-10-2022 6:03:04 CDT by Dora Mustafa M.D. [email or web address] ([email or web address] [email or web address] [facility]Envia L[employer]/store/OM/[id number]
--- NOTE | 2022-10-08 22:09 | ED_ITS ---
HPI - General Adult General: Chief complaint: General Medical Stated complaint: High BP Time Seen by Provider: 10/08/22 21:52 Source: patient Mode of arrival: ambulatory Limitations: no limitations History of Present Illness: 57-year-old male who is very well-known to the ER he has been seen here multiple times for hypertension he is on dialysis he goes Wednesday he did go yesterday states that tonight his blood pressure is in the 170s he has no other complaints denies any pain denies any fever denies any vomiting or diarrhea. Associated symptoms: Deny chest pain, dyspnea, headache(s), nausea or vomiting Review of Systems Const: Denies: fever(s), chills, body aches or change in appetite Eyes: Denies: blurry vision or eye discomfort ENMT: Denies: throat pain or dental pain Card: Denies: chest pain Resp: Denies: dyspnea GI: Denies: abdominal pain, nausea, vomiting or diarrhea : Denies: dysuria Musc: Denies: neck pain or back pain Neuro: Denies: headache(s) All/Imm: Denies: urticaria PFSH ED PFSH: Medical History Bilateral hydronephrosis Bradycardia Chronic anemia CVA (cerebral vascular accident) Dependence on peritoneal dialysis Dilated aortic root ESRD (end stage renal disease) GERD (gastroesophageal reflux disease) History of stroke Hypertension Hypothyroidism Incomplete bladder emptying Neuropathy, lumbosacral (radicular) Polycystic kidney disease Right bundle branch block (RBBB) on electrocardiogram (ECG) Surgical History AV fistula History of colonoscopy 2019 at [facility] History of surgical procedure Peritoneal dialysis catheter placement by Dr. Kamara 2015 S/P hemodialysis catheter insertion (03/13/20) 23cm long exchanged right IJ Removed on 06/11/2020 Family History Mother Chronic kidney disease (CKD) Stroke Father Cancer lung Brother Hypertension Denies family history of Diabetes CAD (coronary artery disease) Clotting disorder Dementia Hyperlipidemia Psychiatric illness Anesthesia complication Bleeding disorder Lung disease Social History Smoking and tobacco status: current every day smoker cigarettes [ Other cigarette details: Half a pack per day for last 20-30 years] Alcohol intake: never Substance/Drug Use: current Substance/Drug use frequency: few times a week Lives independently: Yes Household members: family Housing: House Marital status: Number of children: 1 Current occupational status: disabled Current gender identity: Male Agree to transfusion: Yes Physical Exam Const: COMMON NORMALS: no acute distress and patient oriented x3 HENMT: COMMON NORMALS: normocephalic and atraumatic HEAD & SCALP: normocephalic and atraumatic Eye: COMMON NORMALS: conjunctivae normal CONJUNCTIVA: Yes conjunctivae normal Neck/C-Spine: COMMON NORMALS: supple Chest: COMMONS NORMALS: normal inspection of the chest Resp: COMMON NORMALS: normal respiratory effort Cardio: COMMON NORMALS: regular rate and regular rhythm RATE: regular rate RHYTHM: regular rhythm Extremity: COMMON NORMALS: normal to inspection Neuro: COMMON NORMALS: patient oriented x3 Psych: COMMON NORMALS: mental status grossly normal Skin: COMMON NORMALS: no rashes or lesions noted GENERAL SKIN EXAM: no rashes or lesions noted Course Vital Signs: Vital signs: Vital Signs Temperature 98.0 F 10/08/22 22:02 Pulse Rate 83 10/08/22 22:34 Respiratory Rate 26 H 10/08/22 22:34 Blood Pressure 148/77 10/08/22 22:34 Pulse Oximetry 95 10/08/22 22:34 Oxygen Delivery Me thod Room Air 10/08/22 22:02 [facility] - General Adult Medical Decision Making Patient presents here with hypertension he is well-appearing here his blood pressure is down now to 148/77 he does get dialysis tomorrow he is stable for discharge she is to follow-up with PCP and return if worsening. Medical Records I reviewed the patient's medical records. Lab Data I reviewed the patient's lab results. Discharge Plan Discharge Patient Disposition: Home Clinical Impression: Hypertension Condition: Stable Prescriptions: No Action isosorbide mononitrate 60 mg tablet extended release 24 hr 60 mg PO DAILY simvastatin 40 mg tablet 40 mg PO DAILY ondansetron HCl 4 mg tablet 4 mg PO Q8H Qty: 10 0RF cholecalciferol (vitamin D3) 125 mcg (5,000 unit) capsule 125 mcg PO DAILY alfuzosin 10 mg tablet extended release 24 hr 10 mg PO DAILY Rx Instructions: administer after the same meal each day hydroxyzine HCl 25 mg tablet 25 mg PO TID PRN (Reason: itching) Qty: 90 0RF Rx Instructions: itching sertraline 50 mg tablet 50 mg PO DAILY Qty: 90 0RF levothyroxine 75 mcg tablet 75 mcg PO DAILY Qty: 60 0RF Rx Instructions: to replace 50mcg tablets amlodipine 5 mg Tablet 10 mg PO DAILY Qty: 30 0RF allopurinol 100 mg Tablet 100 mg PO DAILY pantoprazole 40 mg tablet,delayed release (DR/EC) 40 mg PO DAILY lisinopril 20 mg tablet 20 mg PO DAILY cinacalcet 30 mg tablet 30 mg PO DAILY minoxidil 2.5 mg tablet 5 mg PO BID nifedipine 90 mg tablet extended release 24hr 90 mg PO DAILY hydralazine 50 mg tablet 100 mg PO TID sucralfate 1 gram tablet 1 g PO Q6H PRN (Reason: Acid Reflux) Auryxia 210 mg iron tablet 2 tab PO TID Fosrenol 1,000 mg powder in packet 200 mg PO TID RenaPlex-D 800 mcg-12.5 mg -2,000 unit tablet 1 tab PO DAILY sucralfate [Carafate] 1 gram tablet 1 g PO Q6H PRN (Reason: dyspepsia/stomach upset) 28 Days Qty: 112 0RF Discharge Orders: Discharge ED (Routine); Ordered 10/08/22 Ordered By: Ghada Fontanez Referrals: Randolph Ortiz MD [Primary Care Provider] - 1-3 days Discharge Diet: Advance as tolerated Discharge Activity: Resume usual activity Patient Instructions: Hypertension (ED) Coding Level of Care Code ED Health Communications Specialist for Efreng Phoebe
[2022-10-08] MEDS: hyDRALAzine 20 mg/mL INJ 1 mL 10 MG IM (22:10)
[2022-10-08 22:34] VITALS: BP 148/77; PULSE 83; RESP 26; O2SAT 95
[2022-10-08 23:03] VITALS: BP 165/92; PULSE 86; RESP 18; O2SAT 95
== END 2022-10-08 22:56 | disposition home or self-care (01) ==
PROVIDERS: Emergency Provider Emergency Medicine; PCP Family Medicine
DX: I12.0 Hypertensive chronic kidney disease with stage 5 chronic kidney disease or end stage renal disease (principal); N18.6 End stage renal disease; Z99.2 Dependence on renal dialysis; Z86.73 Personal history of transient ischemic attack (TIA), and cerebral infarction without residual deficits; F17.210 Nicotine dependence, cigarettes, uncomplicated
CPT/HCPCS: 93005; 96372; 99284; J0360

== ENCOUNTER 2022-10-09 01:17 | Emergency (ER) | payer MEDICARE, MEDICAID, SELFPAY ==
[2022-10-09] VITALS (12 sets, daily range): BP systolic 169–190; BP diastolic 75–119; PULSE 75–90; RESP 16; TEMP 36.8; O2SAT 95–98; BMI 27.3
[2022-10-09] MEDS: hyDRALAzine 20 mg/mL INJ 1 mL IM ×2 (01:32→03:46)
--- NOTE | 2022-10-09 01:41 | ED_ITS ---
HPI - General Adult General: Chief complaint: General Medical Stated complaint: High bp Time Seen by Provider: 10/09/22 01:26 Source: patient Mode of arrival: ambulatory Limitations: no limitations History of Present Illness: 57-year-old male with history of end-stage renal disease on dialysis gets dialysis at 7:00 this morning he seen earlier for hypertension he states his blood pressure still high he has a mild headache he denies any chest pain denies any fevers. Associated symptoms: Deny chest pain, dyspnea, headache(s), nausea, rash or vomiting Review of Systems Const: Denies: fever(s) or chills Eyes: Denies: blurry vision ENMT: Denies: throat pain or dental pain Card: Denies: chest pain Resp: Denies: dyspnea GI: Denies: abdominal pain, nausea, vomiting or diarrhea : Denies: dysuria Musc: Denies: neck pain or back pain Skin/Breast: Denies: rash Neuro: Denies: headache(s) PFSH ED PFSH: Medical History Bilateral hydronephrosis Bradycardia Chronic anemia CVA (cerebral vascular accident) Dependence on peritoneal dialysis Dilated aortic root ESRD (end stage renal disease) GERD (gastroesophageal reflux disease) History of stroke Hypertension Hypothyroidism Incomplete bladder emptying Neuropathy, lumbosacral (radicular) Polycystic kidney disease Right bundle branch block (RBBB) on electrocardiogram (ECG) Surgical History AV fistula History of colonoscopy 2019 at [facility] History of surgical procedure Peritoneal dialysis catheter placement by Dr. Kamara 2015 S/P hemodialysis catheter insertion (03/13/20) 23cm long exchanged right IJ Removed on 06/11/2020 Family History Mother Chronic kidney disease (CKD) Stroke Father Cancer lung Brother Hypertension Denies family history of Diabetes CAD (coronary artery disease) Clotting disorder Dementia Hyperlipidemia Psychiatric illness Anesthesia complication Bleeding disorder Lung disease Social History Smoking and tobacco status: current every day smoker cigarettes [ Other cigarette details: Half a pack per day for last 20-30 years] Alcohol intake: never Substance/Drug Use: current Substance/Drug use frequency: few times a week Lives independently: Yes Household members: family Housing: House Marital status: Number of children: 1 Current occupational status: disabled Current gender identity: Male Agree to transfusion: Yes Physical Exam Const: COMMON NORMALS: no acute distress and patient oriented x3 HENMT: COMMON NORMALS: normocephalic and atraumatic HEAD & SCALP: normocephalic and atraumatic Chest: COMMONS NORMALS: normal inspection of the chest Resp: COMMON NORMALS: normal respiratory effort Cardio: COMMON NORMALS: regular rate and regular rhythm RATE: regular rate RHYTHM: regular rhythm GI: INSPECTION: Yes normal to inspection Extremity: COMMON NORMALS: normal to inspection Neuro: COMMON NORMALS: patient oriented x3 Psych: COMMON NORMALS: mental status grossly normal Course Vital Signs: Vital signs: Vital Signs Temperature 98.3 F 10/09/22 04:28 Pulse Rate 75 10/09/22 04:28 Respiratory Rate 16 10/09/22 04:28 Blood Pressure 179/119 10/09/22 04:28 Pulse Oximetry 97 10/09/22 04:28 Oxygen Delivery Me thod Room Air 10/09/22 01:27 MDM - General Adult Medical Decision Making Patient presents here with hypertension he has chronic hypertension he is scheduled for dialysis in a few hours he is stable for discharge she is to follow-up with PCP and return if worsening. Medical Records I reviewed the patient's medical records. Lab Data I reviewed the patient's lab results. Discharge Plan Discharge Patient Disposition: Home Clinical Impression: Hypertension Condition: Stable Prescriptions: No Action isosorbide mononitrate 60 mg tablet extended release 24 hr 60 mg PO DAILY simvastatin 40 mg tablet 40 mg PO DAILY ondansetron HCl 4 mg tablet 4 mg PO Q8H Qty: 10 0RF cholecalciferol (vitamin D3) 125 mcg (5,000 unit) capsule 125 mcg PO DAILY alfuzosin 10 mg tablet extended release 24 hr 10 mg PO DAILY Rx Instructions: administer after the same meal each day hydroxyzine HCl 25 mg tablet 25 mg PO TID PRN (Reason: itching) Qty: 90 0RF Rx Instructions: itching sertraline 50 mg tablet 50 mg PO DAILY Qty: 90 0RF levothyroxine 75 mcg tablet 75 mcg PO DAILY Qty: 60 0RF Rx Instructions: to replace 50mcg tablets amlodipine 5 mg Tablet 10 mg PO DAILY Qty: 30 0RF allopurinol 100 mg Tablet 100 mg PO DAILY pantoprazole 40 mg tablet,delayed release (DR/EC) 40 mg PO DAILY lisinopril 20 mg tablet 20 mg PO DAILY cinacalcet 30 mg tablet 30 mg PO DAILY minoxidil 2.5 mg tablet 5 mg PO BID nifedipine 90 mg tablet extended release 24hr 90 mg PO DAILY hydralazine 50 mg tablet 100 mg PO TID sucralfate 1 gram tablet 1 g PO Q6H PRN (Reason: Acid Reflux) Auryxia 210 mg iron tablet 2 tab PO TID Fosrenol 1,000 mg powder in packet 200 mg PO TID RenaPlex-D 800 mcg-12.5 mg -2,000 unit tablet 1 tab PO DAILY sucralfate [Carafate] 1 gram tablet 1 g PO Q6H PRN (Reason: dyspepsia/stomach upset) 28 Days Qty: 112 0RF Discharge Orders: Discharge ED (Routine); Ordered 10/09/22 Ordered By: Ghada Fontanez Referrals: Randolph Ortiz MD [Primary Care Provider] - 1-3 days Discharge Diet: Advance as tolerated Discharge Activity: Resume usual activity Patient Instructions: Hypertension (ED) Coding Level of Care Code ED White Work Cleaner for Eric Sandhu
[2022-10-09] MEDS: acetaminophen 500 mg Tablet 1000 MG PO (01:54)
[2022-10-09] MEDS: cloNIDine 0.1 mg Tablet PO (03:03)
== END 2022-10-09 04:29 | disposition home or self-care (01) ==
PROVIDERS: Emergency Provider Emergency Medicine; PCP Family Medicine
DX: I12.0 Hypertensive chronic kidney disease with stage 5 chronic kidney disease or end stage renal disease (principal); N18.6 End stage renal disease; Z99.2 Dependence on renal dialysis; F17.210 Nicotine dependence, cigarettes, uncomplicated; Z86.73 Personal history of transient ischemic attack (TIA), and cerebral infarction without residual deficits
CPT/HCPCS: 96372; 99284; J0360

== ENCOUNTER 2022-10-11 01:25 | Emergency (ER) | payer MEDICARE, MEDICAID, SELFPAY ==
[2022-10-11 01:30] VITALS: BP 229/122; PULSE 80; RESP 20; TEMP 36.7; O2SAT 95; BMI 28.1
[2022-10-11 03:24] VITALS: BP 234/136; PULSE 72; RESP 18; O2SAT 96
--- NOTE | 2022-10-11 03:25 | PC.NURSE ---
Went into patients room to assess and get pt set up on radiographer cardiac catheterization. Pt states, I am might as well go home and fucking . I am not sitting around here being a guinea pig. Asked pt what he meant by this and he said, well you can't even get that machine working. I told patient that the vitals monitor was working correctly I just needed to finish connecting everything. Pt then states , well that has not even been in here. I am not waiting for you fucking people.
== END 2022-10-11 03:20 | disposition left against medical advice (07) ==
PROVIDERS: Emergency Provider Emergency Medicine; PCP Family Medicine
DX: Z53.21 Procedure and treatment not carried out due to patient leaving prior to being seen by health care provider (principal)

== ENCOUNTER 2022-10-11 06:27 | Emergency (ER) | payer MEDICARE, MEDICAID, SELFPAY ==
--- NOTE | 2022-10-11 06:38 | ECG_ITS ---
[facility] Test Date: 2022-10-11 Pat Name: Navneet Savage Department: Room: Gender: Male Demand Manager: : 1965 Requested By: Marvin Bennett Order Number: [id number] Nate MD: Saurabh Fitzpatrick M.D. Measurements Intervals [place] Rate: 77 P: 20 [place]: 156 QRS: -37 QRSD: 104 T: 42 QT: 409 QTc: 464 Interpretive Statements SINUS RHYTHM LEFT AXIS DEVIATION [QRS AXIS < -30] VOLTAGE CRITERIA FOR LVH [MEETS CRITERIA IN ONE OF: R(aVL), S(V1), R(V5), R(V5/V6)+S(V1)] Compared to ECG 10/08/2022 22:15:27 Prolonged QT interval no longer present Electronically Signed On 10-11-2022 12:34:43 CDT by Saurabh Fitzpatrick M.D. [id number]
[2022-10-11 06:59] VITALS: BP 217/117; PULSE 86; TEMP 36.7; O2SAT 95; BMI 28.1
[2022-10-11 07:06] VITALS: BP 217/117; RESP 16; O2SAT 96
[2022-10-11] MEDS: isosorbide mononitrate ER 60 mg Tablet PO (07:22)
[2022-10-11] MEDS: lisinopril 20 mg Tablet PO (07:23)
[2022-10-11] MEDS: amlodipine 10 mg Tablet PO (07:23)
[2022-10-11] MEDS: hyDRALAzine 20 mg/mL INJ 1 mL IVP (07:24)
[2022-10-11] MEDS: labetalol 5 mg/mL SDV 20mL 10 MG IVP (07:25)
[2022-10-11 07:36] VITALS: BP 163/121; PULSE 84; O2SAT 96
[2022-10-11 07:39] LABS: Basophils # 0.1 10^3/uL (0.0-0.1); Basophils % 0.5 %; Eosinophils # 0.2 10^3/uL (0.0-0.8); Eosinophils % 1.6 %; Hemoglobin 8.8 g/dL (11.7-16.6); Lymphocytes # 1.6 10^3/uL (0.8-4.8); Mean Corpuscular HGB Conc 31.4 g/dL (30.0-36.0); Mean Corpuscular Hemoglobin 29.8 pg (28.0-34.0); Mean Corpuscular Volume 94.9 fl (80-94); Monocytes # 0.8 10^3/uL (0.2-0.9); Neutrophils # 6.54 10^3/uL (1.8-7.7); Neutrophils % 71.6 %; Nucleated Red Blood Cells % 0 %; Platelet Count 237 10^3/cmm (130-400); Red Blood Count 2.95 10^6/uL (4.1-5.3); Red Cell Distribution Width 13.7 % (12.1-15.1); White Blood Count 9.2 10^3/uL (4.0-10.0)
--- NOTE | 2022-10-11 07:40 | ED_ITS ---
HPI - General Adult General: Chief complaint: General Medical Stated complaint: high B/P Time Seen by Provider: 10/11/22 06:29 Source: patient Mode of arrival: ambulatory History of Present Illness: 57-year-old male history of end-stage renal disease and alcoholic liver cirrhosis. His next dialysis day is tomorrow he did complete his dialysis on Wednesday 2 days ago. He has not taken any of his medications this morning. He was here earlier very early hours of the morning overnight and left to the emergency room.. He states he has been driving around trying to get comfortable. His main complaint on arrival here is his blood pressure being elevated. He is not usually on oxygen when he came in the room he was satting 95 to 96% on 2 L we turned the oxygen off to maintain his sats without difficulty no respiratory distress Onset (ago): hour(s) Severity: mild Relieving factors: none Exacerbating factors: none Associated symptoms: Reports headache(s) and malaise; Deny chest pain, confusion, cough, diaphoresis, decreased appetite, dyspnea, fevers/chills, nausea, rash, palpitations, seizures, short of breath, syncope, vomiting or weakness Review of Systems Const: Reports: fatigue and malaise; Denies: fever(s), chills or diaphoresis Card: Denies: chest pain, palpitations or syncope Resp: Denies: dyspnea GI: Reports: abdominal pain (Chronic ache from his ascites); Denies: nausea or vomiting : Denies: flank pain, dysuria, urinary frequency or urinary urgency Skin/Breast: Denies: rash Neuro: Reports: headache(s); Denies: confusion PFSH ED PFSH: Medical History Bilateral hydronephrosis Bradycardia Chronic anemia CVA (cerebral vascular accident) Dependence on peritoneal dialysis Dilated aortic root ESRD (end stage renal disease) GERD (gastroesophageal reflux disease) History of stroke Hypertension Hypothyroidism Incomplete bladder emptying Neuropathy, lumbosacral (radicular) Polycystic kidney disease Right bundle branch block (RBBB) on electrocardiogram (ECG) Surgical History AV fistula History of colonoscopy 2019 at [facility] History of surgical procedure Peritoneal dialysis catheter placement by Dr. Kamara 2015 S/P hemodialysis catheter insertion (03/13/20) 23cm long exchanged right IJ Removed on 06/11/2020 Family History Mother Chronic kidney disease (CKD) Stroke Father Cancer lung Brother Hypertension Denies family history of Diabetes CAD (coronary artery disease) Clotting disorder Dementia Hyperlipidemia Psychiatric illness Anesthesia complication Bleeding disorder Lung disease Social History Smoking and tobacco status: current every day smoker cigarettes [ Other cigarette details: Half a pack per day for last 20-30 years] Alcohol intake: never Substance/Drug Use: current Substance/Drug use frequency: few times a week Lives independently: Yes Household members: family Housing: House Marital status: Number of children: 1 Current occupational status: disabled Current gender identity: Male Agree to transfusion: Yes Physical Exam Const: GENERAL APPEARANCE: cooperative ORIENTATION/CONSCIOUSNESS: Yes awake, Yes oriented to person, Yes oriented to place and Yes oriented to time HENMT: COMMON NORMALS: normocephalic, atraumatic and hearing grossly normal bilaterally HEAD & SCALP: normocephalic and atraumatic Resp: COMMON NORMALS: normal respiratory effort, No retractions and No use of accessory muscles AUSCULTATION: crackles (base) Laterality: bilateral and posterior Cardio: COMMON NORMALS: regular rate and regular rhythm RATE: regular rate RHYTHM: regular rhythm HEART SOUNDS: Murmur heart sound present systolic Intensity: IV/ GI: COMMON NORMALS: No hepatosplenomegaly present INSPECTION: Yes abdominal distension and Yes Fluid wave present AUSCULTATION: Yes normoactive bowel sounds PALPATION: No Tenderness to palpation present (GI), No Guarding due to palpation present (GI) and Yes No hepatosplenomegaly present PERCUSSION: Fluid wave present Extremity: COMMON NORMALS: normal to inspection, capillary refill normal, no clubbing, cyanosis or edema, no calf tenderness and no pedal edema Neuro: SENSORIUM/ORIENTATION: Yes oriented to person, Yes oriented to place and Yes oriented to time Skin: COMMON NORMALS: no rashes or lesions noted GENERAL SKIN EXAM: no rashes or lesions noted Course Vital Signs: Vital signs: Vital Signs Temperature 98.0 F 10/11/22 06:59 Pulse Rate 86 10/11/22 09:18 Respiratory Rate 16 10/11/22 09:18 Blood Pressure 160/79 10/11/22 09:18 Pulse Oximetry 92 10/11/22 09:18 Oxygen Delivery Me thod Room Air 10/11/22 08:06 MDM - General Adult Medical Decision Making Patient desats while sleeping. But when awake his saturations are normal we did supplement him with oxygen intermittently while he was sleeping. His blood pressure is improved but still elevated at this point would we will discharge him home recommend he continue his regular home medications he has dialysis tomorrow. He should also follow-up with his primary care doctor to be evaluated for sleep apnea if he has not been in the past. Medical Records I reviewed the patient's medical records. Lab Data I reviewed the patient's lab results. 10/11/22 07:25 10/11/22 07:25 Laboratory Results WBC 9.2 10^3/uL (4.0-10.0) 10/11/22 07:25 RBC 2.95 10^6/uL (4.1-5.3) L 10/11/22 07:25 Hgb 8.8 g/dL (11.7-16.6) L 10/11/22 07:25 Hct 28.0 % (42.0-52.0) L 10/11/22 07:25 MCV 94.9 fl (80-94) H 10/11/22 07:25 MCH 29.8 pg (28.0-34.0) 10/11/22 07:25 MCHC 31.4 g/dL (30.0-36.0) 10/11/22 07:25 RDW 13.7 % (12.1-15.1) 10/11/22 07:25 Plt Count 237 10^3/cmm (130-400) 10/11/22 07:25 MPV 10.0 fL (7.4-10.4) 10/11/22 07:25 Neut % (Auto) 71.6 % 10/11/22 07:25 Lymph % (Auto) 17.0 % 10/11/22 07:25 Glades % (Auto) 9.0 % 10/11/22 07:25 Eos % (Auto) 1.6 % 10/11/22 07:25 Baso % (Auto) 0.5 % 10/11/22 07:25 Neut # (Auto) 6.54 10^3/uL (1.8-7.7) 10/11/22 07:25 Lymph # (Auto) 1.6 10^3/uL (0.8-4.8) 10/11/22 07:25 Glades # (Auto) 0.8 10^3/uL (0.2-0.9) 10/11/22 07:25 Eos # (Auto) 0.2 10^3/uL (0.0-0.8) 10/11/22 07:25 Baso # (Auto) 0.1 10^3/uL (0.0-0.1) 10/11/22 07:25 Nucleated RBC % (auto) 0 % 10/11/22 07:25 Nucleated RBCs # 0.0 /100WBC 10/11/22 07:25 Sodium 135 mmol/L (136-145) L 10/11/22 07:25 Potassium 4.1 mmol/L (3.5-5.1) 10/11/22 07:25 Chloride 97 mmol/L (98-107) L 10/11/22 07:25 Carbon Dioxide 26 mmol/L (22-29) 10/11/22 07:25 Anion Gap 16.1 (5-19) 10/11/22 07:25 BUN 52 mg/dL (6-20) H 10/11/22 07:25 Creatinine 5.9 mg/dL (0.7-1.2) H* 10/11/22 07:25 GFR Calculation 9.9 mL/min (90-130) L 10/11/22 07:25 Glucose 85 mg/dL (65-115) 10/11/22 07:25 Calculated Osmolality 293 mOsm/kg (285-295) 10/11/22 07:25 Calcium 9.5 mg/dL (8.5-10.5) 10/11/22 07:25 Discharge Plan Discharge Patient Disposition: Home Clinical Impression: Hypertension, End stage renal disease on dialysis Condition: Stable Prescriptions: No Action isosorbide mononitrate 60 mg tablet extended release 24 hr 60 mg PO DAILY simvastatin 40 mg tablet 40 mg PO DAILY ondansetron HCl 4 mg tablet 4 mg PO Q8H Qty: 10 0RF cholecalciferol (vitamin D3) 125 mcg (5,000 unit) capsule 125 mcg PO DAILY alfuzosin 10 mg tablet extended release 24 hr 10 mg PO DAILY Rx Instructions: administer after the same meal each day hydroxyzine HCl 25 mg tablet 25 mg PO TID PRN (Reason: itching) Qty: 90 0RF Rx Instructions: itching sertraline 50 mg tablet 50 mg PO DAILY Qty: 90 0RF levothyroxine 75 mcg tablet 75 mcg PO DAILY Qty: 60 0RF Rx Instructions: to replace 50mcg tablets amlodipine 5 mg Tablet 10 mg PO DAILY Qty: 30 0RF allopurinol 100 mg Tablet 100 mg PO DAILY pantoprazole 40 mg tablet,delayed release (DR/EC) 40 mg PO DAILY lisinopril 20 mg tablet 20 mg PO DAILY cinacalcet 30 mg tablet 30 mg PO DAILY minoxidil 2.5 mg tablet 5 mg PO BID nifedipine 90 mg tablet extended release 24hr 90 mg PO DAILY hydralazine 50 mg tablet 100 mg PO TID sucralfate 1 gram tablet 1 g PO Q6H PRN (Reason: Acid Reflux) Auryxia 210 mg iron tablet 2 tab PO TID Fosrenol 1,000 mg powder in packet 200 mg PO TID RenaPlex-D 800 mcg-12.5 mg -2,000 unit tablet 1 tab PO DAILY sucralfate [Carafate] 1 gram tablet 1 g PO Q6H PRN (Reason: dyspepsia/stomach upset) 28 Days Qty: 112 0RF Discharge Orders: Discharge ED (Routine); Ordered 10/11/22 Ordered By: Marvin Tilley Referrals: Randolph Ortiz MD [Primary Care Provider] - Discharge Diet: Usual diet Discharge Activity: Increase activity as tolerated Patient Instructions: Opioid Safety, Pain Management Activity Restrictions/Additional Instructions: You were seen today with elevated blood pressure. We also noted while you are here that when you sleep your oxygen saturation drops. Continue to take all of your regular blood pressure medications follow-up with your doctor next week. You should also discuss with your doctor about being evaluated for sleep apnea if you have not been in the past. Coding Level of Care Code ED Flying Shear Operator for Eric Sandhu
[2022-10-11 08:06] VITALS: BP 164/137; PULSE 86; O2SAT 92
[2022-10-11 08:18] LABS: Anion Gap 16.1 (5-19); Blood Urea Nitrogen 52 mg/dL (6-20); Calcium 9.5 mg/dL (8.5-10.5); Carbon Dioxide 26 mmol/L (22-29); Chloride 97 mmol/L (98-107); Glomerular Filtration Rate 9.9 mL/min (90-130); Glucose 85 mg/dL (65-115); Osmolality Calculated 293 mOsm/kg (285-295); Potassium 4.1 mmol/L (3.5-5.1); Sodium 135 mmol/L (136-145)
--- NOTE | 2022-10-11 08:19 | XRR_ITS ---
PROCEDURE INFORMATION: Exam: XR Chest Exam date and time: 10/11/2022 8:29 AM Age: 57 years old Clinical indication: Cough and dyspnea; Additional info: Dyspnea/cough TECHNIQUE: Imaging protocol: Radiologic exam of the chest. Views: 1 view. COMPARISON: CR (CHEST, ) 10/04/2022 9:11 PM FINDINGS: Lungs: There is ill-defined nodular ground-glass opacity in the mid to lower lungs bilaterally, greater on the left. Similar findings have been present intermittently since 08/06/2022, greatest on 09/13/2022, and increased on the current exam since 10/04/2022. Central interstitial markings are indistinct. Pleural spaces: There is no pleural effusion or pneumothorax. Heart/Mediastinum: There is mild enlargement of the cardiac silhouette. Bones/joints: Bones are unremarkable. XR/XR chest 1V portable [id number] IMPRESSION: Waxing and waning bilateral lung disease consistent with pulmonary edema. Infection is not excluded. Severity is increased since 10/04/2022.
[2022-10-11 08:52] VITALS: BP 198/100
[2022-10-11 09:18] VITALS: BP 160/79; PULSE 86; RESP 16; O2SAT 92
== END 2022-10-11 09:20 | disposition home or self-care (01) ==
PROVIDERS: Emergency Provider Family Medicine; PCP Family Medicine
DX: I12.0 Hypertensive chronic kidney disease with stage 5 chronic kidney disease or end stage renal disease (principal); N18.6 End stage renal disease; Z99.2 Dependence on renal dialysis; Z86.73 Personal history of transient ischemic attack (TIA), and cerebral infarction without residual deficits; F17.210 Nicotine dependence, cigarettes, uncomplicated
CPT/HCPCS: 71045; 80048; 85025; 93005; 96374; 96375; 99284; J0360; J3490

== ENCOUNTER 2022-10-13 10:24 | Day surgery (SDC) | payer MEDICARE, MEDICAID, SELFPAY ==
[2022-10-12 08:31] VITALS: BMI 28.1
--- NOTE | 2022-10-13 11:05 | US_ITS ---
WS: [id number] ULTRASOUND-GUIDED THERAPEUTIC PARACENTESIS Procedure, risks, and complications have been explained to the patient. Consent is obtained. Utilizing aseptic technique and 1% buffered lidocaine, a small dermatome was made through which a 5 F rench Yueh catheter was inserted. Approximately 5900 ml of clear peritoneal fluid was obtained witho ut difficulty. No complications encountered. US/US paracentesis abd w [id number] IMPRESSION: Uncomplicated paracentesis yielding 5900 ml of peritoneal fluid.
[2022-10-13 11:09] VITALS: BP 200/105; PULSE 79; RESP 18; TEMP 36.6; O2SAT 97
[2022-10-13] MEDS: albumin 75 G/300 ML BAG 999 G IV (11:32)
== END 2022-10-13 12:22 | disposition home or self-care (01) ==
LOC: GILAB 10:26
PROVIDERS: Radiology Diagnostic Radiology; PCP Family Medicine; Visit Provider Internal Medicine Nephrology
PROC: (CPT 49082; principal; 2022-10-13 12:00)
DX: R18.8 Other ascites (principal)
CPT/HCPCS: 49083; 96365; P9046

== ENCOUNTER 2022-10-13 20:32 | Emergency (ER) | payer MEDICARE, MEDICAID, SELFPAY ==
[2022-10-13 20:42] VITALS: BP 189/90; PULSE 84; RESP 20; TEMP 36.7; O2SAT 97; BMI 28.1
--- NOTE | 2022-10-13 21:05 | ED_ITS ---
HPI - General Adult General: Chief complaint: General Medical Stated complaint: high bp Time Seen by Provider: 10/13/22 20:50 History of Present Illness: Patient is a 57-year-old male comes to the ED with elevated blood pressure. Patient is on multiple blood pressure medications and states he has been taking all of his medications as prescribed and has not missed any doses. He said around 7 PM tonight he took his blood pressure at home with his cuff and it registered a systolic blood pressure over 250. Patient says he is asymptomatic. He denies any current symptoms such as headache, chest pain, shortness of breath, numbness tingling or weakness to 1 side of face or body, bladder or bowel symptoms. Associated symptoms: Deny chest pain, dyspnea, headache(s), nausea, rash, palpitations or vomiting Review of Systems Const: Denies: fever(s), chills or fatigue Eyes: Denies: change in vision or eye discomfort ENMT: Denies: throat pain, odynophagia, nasal discharge or nasal congestion Card: Denies: chest pain, palpitations, edema, swelling of feet/ankles, dyspnea on exertion or orthopnea Resp: Denies: dyspnea, productive cough or non-productive cough GI: Denies: abdominal pain, nausea, vomiting, diarrhea, constipation or hematochezia : Denies: flank pain, difficulty urinating, dysuria or hematuria Musc: Denies: neck pain, back pain or extremity swelling Skin/Breast: Denies: rash or new lesions Neuro: Denies: headache(s), numbness in extremities or weakness in extremities [facility] ED PFSH: Medical History Bilateral hydronephrosis Bradycardia Chronic anemia CVA (cerebral vascular accident) Dependence on peritoneal dialysis Dilated aortic root ESRD (end stage renal disease) GERD (gastroesophageal reflux disease) History of stroke Hypertension Hypothyroidism Incomplete bladder emptying Neuropathy, lumbosacral (radicular) Polycystic kidney disease Right bundle branch block (RBBB) on electrocardiogram (ECG) Surgical History AV fistula History of colonoscopy 2019 at [facility] History of surgical procedure Peritoneal dialysis catheter placement by Dr. Kamara 2016 S/P hemodialysis catheter insertion (03/13/20) 23cm long exchanged right IJ Removed on 06/11/2020 Family History Mother Chronic kidney disease (CKD) Stroke Father Cancer lung Brother Hypertension Denies family history of Diabetes CAD (coronary artery disease) Clotting disorder Dementia Hyperlipidemia Psychiatric illness Anesthesia complication Bleeding disorder Lung disease Social History Smoking and tobacco status: current every day smoker cigarettes [ Other cigarette details: Half a pack per day for last 20-30 years] Alcohol intake: never Substance/Drug Use: current Substance/Drug use frequency: few times a week Lives independently: Yes Household members: family Housing: House Marital status: Number of children: 1 Current occupational status: disabled Current gender identity: Male Agree to transfusion: Yes Physical Exam Const: COMMON NORMALS: no acute distress, patient oriented x3 and alert GENERAL APPEARANCE: cooperative HENMT: COMMON NORMALS: normocephalic HEAD & SCALP: normocephalic MOUTH: Normal oral and palatal mucosa present THROAT: posterior oropharynx normal and uvula midline Eye: COMMON NORMALS: Equal, round and reactive pupils present and EOMs intact bilaterally GENERAL EYE: appearance normal, both eyes and all related structures PUPIL: Yes Equal, round and reactive pupils present Neck/C-Spine: COMMON NORMALS: supple GENERAL: Yes normal visual inspection Lymph: LYMPHATIC: no lymphadenopathy noted Resp: COMMON NORMALS: normal respiratory effort, No retractions, No use of accessory muscles and clear to auscultation bilaterally AUSCULTATION: clear to auscultation bilaterally Cardio: COMMON NORMALS: regular rate, regular rhythm, S1 normal heart sound present, S2 normal heart sound present, No gallops present (Cardio), No clicks present (Cardio), No murmurs present (Cardio) and Peripheral pulses 2+ thr oughout RATE: regular rate RHYTHM: regular rhythm HEART SOUNDS: S1 normal heart sound present and S2 normal heart sound present PERIPHERAL PULSES: Peripheral pulses 2+ throughout GI: COMMON NORMALS: Normal to inspection, nondistended, normoactive bowel sounds present, Soft to palpation, non-tender and no masses PALPATION: Yes Soft to palpation : COMMON NORMALS: Yes no CVA tenderness BLADDER/KIDNEY EXAM: Yes no CVA tenderness Back/Pelvis: COMMON NORMALS: no CVA tenderness Extremity: GENERAL: Yes normal exam except as noted Neuro: COMMON NORMALS: patient oriented x3, CN's II-XII intact bilaterally, moves all extremities, no focal motor deficits and no sensory deficits noted SENSORIUM/ORIENTATION: Yes alert COORDINATION/BALANCE: [id number] test normal SPEECH: speech normal GAIT: Yes Normal gait present SENSORY EXAM: Yes extremities (intact) MOTOR EXAM: 5/5 motor strength present throughout and Pronator motor function not present COORDINATION: [id number] test normal Skin: COMMON NORMALS: no rashes or lesions noted GENERAL SKIN EXAM: no rashes or lesions noted and dry skin Course Vital Signs: Vital signs: Vital Signs Temperature 98.0 F 10/13/22 20:42 Pulse Rate 84 10/13/22 20:42 Respiratory Rate 20 H 10/13/22 20:42 Blood Pressure 189/90 10/13/22 20:42 Pulse Oximetry 97 10/13/22 20:42 Oxygen Delivery Me thod Room Air 10/13/22 20:42 MDM - General Adult Medical Decision Making Patient is a 57-year-old male comes to the ED with elevated blood pressure. Patient is on multiple blood pressure medications and states he has been taking all of his medications as prescribed and has not missed any doses. He said around 7 PM tonight he took his blood pressure at home with his cuff and it registered a systolic blood pressure over 250. Patient says he is asymptomatic. He denies any current symptoms such as headache, chest pain, shortness of breath, numbness tingling or weakness to 1 side of face or body, bladder or bowel symptoms. Vitals are stable and patient has a blood pressure of 164/74. Patient appears nontoxic in no acute distress or pain. Neuro exam shows no deficits. Patient was diagnosed with hypertension and was discharged home. He was told to follow-up with his PCP within the next week for reevaluation. Continue taking previously prescribed medications. Patient understood and agreed with plan. Discharge Plan Discharge Patient Disposition: Home Clinical Impression: Hypertension Qualifiers: Hypertension type: unspecified Qualified Code(s): I10 - Essential (primary) hypertension Condition: Stable Prescriptions: No Action isosorbide mononitrate 60 mg tablet extended release 24 hr 60 mg PO DAILY simvastatin 40 mg tablet 40 mg PO DAILY ondansetron HCl 4 mg tablet 4 mg PO Q8H Qty: 10 0RF cholecalciferol (vitamin D3) 125 mcg (5,000 unit) capsule 125 mcg PO DAILY alfuzosin 10 mg tablet extended release 24 hr 10 mg PO DAILY Rx Instructions: administer after the same meal each day hydroxyzine HCl 25 mg tablet 25 mg PO TID PRN (Reason: itching) Qty: 90 0RF Rx Instructions: itching sertraline 50 mg tablet 50 mg PO DAILY Qty: 90 0RF levothyroxine 75 mcg tablet 75 mcg PO DAILY Qty: 60 0RF Rx Instructions: to replace 50mcg tablets amlodipine 5 mg Tablet 10 mg PO DAILY Qty: 30 0RF allopurinol 100 mg Tablet 100 mg PO DAILY pantoprazole 40 mg tablet,delayed release (DR/EC) 40 mg PO DAILY lisinopril 20 mg tablet 20 mg PO DAILY cinacalcet 30 mg tablet 30 mg PO DAILY minoxidil 2.5 mg tablet 5 mg PO BID nifedipine 90 mg tablet extended release 24hr 90 mg PO DAILY hydralazine 50 mg tablet 100 mg PO TID sucralfate 1 gram tablet 1 g PO Q6H PRN (Reason: Acid Reflux) Auryxia 210 mg iron tablet 2 tab PO TID Fosrenol 1,000 mg powder in packet 200 mg PO TID RenaPlex-D 800 mcg-12.5 mg -2,000 unit tablet 1 tab PO DAILY sucralfate [Carafate] 1 gram tablet 1 g PO Q6H PRN (Reason: dyspepsia/stomach upset) 28 Days Qty: 112 0RF Discharge Orders: Discharge ED (Routine); Ordered 10/13/22 Ordered By: Dylan Steinberg Referrals: Randolph Ortiz MD [Primary Care Provider] - Discharge Diet: Regular Discharge Activity: Increase activity as tolerated Patient Instructions: Hypertension (ED) Activity Restrictions/Additional Instructions: Follow-up with your PCP within the next week for reevaluation. Continue taking all home medications as prescribed. Return to the ER or your medical provider if condition worsens. Please read and understand discharge instructions. Thank you for choosing [facility] for your healthcare needs today. Please realize this is an emergency room and that we are providing you with a medical screening exam and this may not be complete and all inclusive of all the testing and or work up that you may need to determine your ailment or severity of your illness. It is very important that you follow up as instructed or that you return to the Emergency Department should you have concerns or if your condition changes or worsens in any way. Coding Level of Care Code ED Donor Relations Officer for Eric Sandhu
[2022-10-13 21:13] VITALS: BP 164/74
== END 2022-10-13 21:36 | disposition home or self-care (01) ==
PROVIDERS: Emergency Provider Physician Assistant; PCP Family Medicine
DX: I12.0 Hypertensive chronic kidney disease with stage 5 chronic kidney disease or end stage renal disease (principal); N18.6 End stage renal disease; F17.210 Nicotine dependence, cigarettes, uncomplicated; Z86.73 Personal history of transient ischemic attack (TIA), and cerebral infarction without residual deficits; Z99.2 Dependence on renal dialysis
CPT/HCPCS: 99283

== ENCOUNTER → 2022-10-15 15:40 | Outpatient (BNVA) | payer MEDICARE, MEDICAID, SELFPAY | PROVIDERS: PCP Family Medicine; Visit Provider Family Medicine | DX: I10 Essential (primary) hypertension (principal); L29.9 Pruritus, unspecified; E03.9 Hypothyroidism, unspecified; N18.6 End stage renal disease; Z09 Encounter for follow-up examination after completed treatment for conditions other than malignant neoplasm; R18.8 Other ascites; F32.9 Major depressive disorder, single episode, unspecified | CPT/HCPCS: 84439; 84443 ==

== ENCOUNTER 2022-10-18 21:36 | Emergency (ER) | payer MEDICARE, MEDICAID, SELFPAY ==
[2022-10-18 21:46] VITALS: PULSE 79; RESP 16; TEMP 36.7; O2SAT 97; BMI 27.8
[2022-10-18 21:53] VITALS: BP 166/81; PULSE 78; RESP 18; O2SAT 93
--- NOTE | 2022-10-18 22:31 | XRR_ITS ---
PROCEDURE INFORMATION: Exam: XR Abdomen Exam date and time: 10/18/2022 9:37 PM Age: 57 years old Clinical indication: Nausea and vomiting; Additional info: N/v TECHNIQUE: Imaging protocol: Radiologic exam of the abdomen. Views: 2 Views. Upright and supine views. COMPARISON: 1. CT abdomen pelvis wo con [id number] 07/22/2022 10:35 PM 2. CR (CHEST, ) 10/11/2022 8:29 AM FINDINGS: Lungs: The visualized portions of the lungs are clear. Interstitial edema or fluid overload is improved compared with 10/11/2022. Heart/Mediastinum: The heart is within normal limits of size. Gastrointestinal tract: There is nonspecific bowel gas pattern with diffuse haziness of the abdomen and paucity of intestinal gas. This pattern is in part due to the large bilateral polycystic kidneys which occupy much of the abdomen as seen on the prior CT scan. Intraperitoneal space: Normal. No free air. Bones/joints: Unremarkable for age. XR/XR acute abdomen series [id number] IMPRESSION: 1. No acute infiltrates 2. Nonobstructive bowel gas pattern.
--- NOTE | 2022-10-18 22:32 | ED_ITS ---
HPI - Nausea/Vomiting/Diarrhea General: Chief complaint: Nausea/Vomiting/Diarrhea Stated complaint: ADB Pain Time Seen by Provider: 10/18/22 21:39 History of Present Illness: 57-year-old male patient comes in today for complaints of malaise and nausea and vomiting this morning. Patient reports just not feeling well. Patient appears nontoxic. Patient appears not chronically ill. Patient has a history of CKD and liver cirrhosis. Patient is scheduled for dialysis in the morning. Patient denies any fever. Associated nausea: Yes Associated symtoms: Reports anxiety, malaise and nausea; Denies chest pain or headache(s) Review of Systems General: Reports: 10 or more systems reviewed and unremarkable except in HPI and below Const: Reports: malaise Card: Denies: chest pain Resp: Denies: productive cough GI: Reports: nausea and vomiting Skin/Breast: Denies: rash or pruritus Neuro: Denies: headache(s) Psych: Reports: anxiety PFSH ED PFSH: Medical History Bilateral hydronephrosis Bradycardia Chronic anemia CVA (cerebral vascular accident) Dependence on peritoneal dialysis Dilated aortic root ESRD (end stage renal disease) GERD (gastroesophageal reflux disease) History of stroke Hypertension Hypothyroidism Incomplete bladder emptying Neuropathy, lumbosacral (radicular) Polycystic kidney disease Right bundle branch block (RBBB) on electrocardiogram (ECG) Surgical History AV fistula History of colonoscopy 2019 at [facility] History of surgical procedure Peritoneal dialysis catheter placement by Dr. Kamara 2016 S/P hemodialysis catheter insertion (03/13/20) 23cm long exchanged right IJ Removed on 06/11/2020 Family History Mother Chronic kidney disease (CKD) Stroke Father Cancer lung Brother Hypertension Denies family history of Diabetes CAD (coronary artery disease) Clotting disorder Dementia Hyperlipidemia Psychiatric illness Anesthesia complication Bleeding disorder Lung disease Social History Smoking and tobacco status: current every day smoker cigarettes [ Other cigarette details: Half a pack per day for last 20-30 years] Alcohol intake: never Substance/Drug Use: current Substance/Drug use frequency: few times a week Lives independently: Yes Household members: family Housing: House Marital status: Number of children: 1 Current occupational status: disabled Current gender identity: Male Agree to transfusion: Yes Physical Exam Const: COMMON NORMALS: alert HENMT: COMMON NORMALS: normocephalic HEAD & SCALP: normocephalic THROAT: posterior oropharynx normal Neck/C-Spine: COMMON NORMALS: full ROM Chest: COMMONS NORMALS: normal palpation of entire chest wall Resp: COMMON NORMALS: normal respiratory effort Cardio: COMMON NORMALS: regular rate and regular rhythm RATE: regular rate RHYTHM: regular rhythm HEART SOUNDS: Murmur heart sound present (pansystolic) GI: COMMON NORMALS: Soft to palpation AUSCULTATION: Yes normoactive bowel sounds PALPATION: Yes Soft to palpation Extremity: NARRATIVE EXTREMITY EXAM: Mild pedal edema Neuro: SENSORIUM/ORIENTATION: Yes alert Skin: COMMON NORMALS: turgor normal GENERAL SKIN EXAM: turgor normal Course Vital Signs: Vital signs: Vital Signs Temperature 98.1 F 10/18/22 21:46 Pulse Rate 78 10/18/22 21:53 Respiratory Rate 18 10/18/22 21:53 Blood Pressure 166/81 10/18/22 21:53 Pulse Oximetry 93 10/18/22 21:53 Oxygen Delivery Me thod Room Air 10/18/22 21:53 MDM - Nausea/Vomiting/Diarrhea Medical Decision Making 57-[facility] of [facility] this morning and feeling poorly throughout the day. Patient appears nontoxic. Patient appears no acute distress. Abdomen is soft with normal active bowel sounds. Lungs are clear to auscultation. Some mild pedal edema is noted. Patient appears chronically ill with end-stage renal disease and cirrhosis of the liver. Differential diagnosis includes gastroenteritis, bowel obstruction, electrolyte imbalance, anxiety. CBC showed anemia with a hemoglobin 9.1. CMP showed no significant abnormalities as expected with a creatinine of 7.4, potassium 4.2, and sodium 148. Believe patient's nausea is may be secondary to his end-stage renal disease. Patient was given 1 dose of Zofran IM. Patient was recommended to follow-up with primary care and his renal dialysis team. Patient stated understanding and agreed to plan. Lab Data 10/18/22 23:00 10/18/22 23:00 Radiology Impressions Chest/Abdomen X-ray 10/18/22 22:31 IMPRESSION: 1. No acute infiltrates 2. Nonobstructive bowel gas pattern. Laboratory Results WBC 9.7 10^3/uL (4.0-10.0) 10/18/22 23:00 RBC 2.98 10^6/uL (4.1-5.3) L 10/18/22 23:00 Hgb 9.1 g/dL (11.7-16.6) L 10/18/22 23:00 Hct 28.1 % (42.0-52.0) L 10/18/22 23:00 MCV 94.3 fl (80-94) H 10/18/22 23:00 MCH 30.5 pg (28.0-34.0) 10/18/22: MCHC 32.4 g/dL (30.0-36.0) 10/18/22 23: RDW 14.2 % (12.1-15.1) 10/18/22 23:00 Plt Count 195 10^3/cmm (130-400) 10/18/22 23:00 MPV 10.1 fL (7.4-10.4) 10/18/22 23:00 Neut % (Auto) 73.9 % 10/18/22 23:00 Lymph % (Auto) 14.9 % 10/18/22 23:00 Franklin % (Auto) 9.5 % 10/18/22 23:00 Eos % (Auto) 1.2 % 10/18/22 23:00 Baso % (Auto) 0.3 % 10/18/22 23:00 Neut # (Auto) 7.12 10^3/uL (1.8-7.7) 10/18/22 23:00 Lymph # (Auto) 1.4 10^3/uL (0.8-4.8) 10/18/22 23:00 Franklin # (Auto) 0.9 10^3/uL (0.2-0.9) 10/18/22 23: Eos # (Auto) 0.1 10^3/uL (0.0-0.8) 10/18/22 23:00 Baso # (Auto) 0.0 10^3/uL (0.0-0.1) 10/18/22 23:00 Nucleated RBC % (auto) 0 % 05/28/23 23:00 Nucleated RBCs # 0.0 /100WBC 10/18/22 23:00 Sodium 138 mmol/L (136-145) 10/18/22 23:00 Potassium 4.2 mmol/L (3.5-5.1) 10/18/22 23:00 Chloride 97 mmol/L (98-107) L 10/18/22 23:00 Carbon Dioxide 28 mmol/L (22-29) 10/18/22 23:00 Anion Gap 17.2 (5-19) 10/18/22 23:00 BUN 40 mg/dL (6-20) H 10/18/22 23:00 Creatinine 7.4 mg/dL (0.7-1.2) H* 10/18/22 23:00 GFR Calculation 7.6 mL/min (90-130) L 10/18/22 23:00 Glucose 78 mg/dL (65-115) 10/18/22 23: Calculated Osmolality 295 mOsm/kg (285-295) 10/18/22 23:00 Calcium 9.6 mg/dL (8.5-10.5) 10/18/22 23:00 Total Bilirubin 0.4 mg/dL (0.15-1.2) 10/18/22 23:00 AST 19 U/L (0-40) 10/18/22 23:00 ALT 11 U/L (0-41) 10/18/22 23:00 Alkaline Phosphatase 62 U/L (40-130) 10/18/22 23:00 Total Protein 5.1 g/dL (6.6-8.7) L 10/18/22 23:00 Albumin 3.1 g/dL (3.5-5.2) L 10/18/22 23:00 Globulin 2.0 g/dL (1.3-4.6) 10/18/22 23:00 Lipase 48 U/L (13-60) 10/18/22 23:00 Discharge Plan Discharge Patient Disposition: Home Clinical Impression: Nausea, ESRD (end stage renal disease) Condition: Stable Prescriptions: No Action isosorbide mononitrate 60 mg tablet extended release 24 hr 60 mg PO DAILY simvastatin 40 mg tablet 40 mg PO DAILY ondansetron HCl 4 mg tablet 4 mg PO Q8H Qty: 10 0RF cholecalciferol (vitamin D3) 125 mcg (5,000 unit) capsule 125 mcg PO DAILY alfuzosin 10 mg tablet extended release 24 hr 10 mg PO DAILY Rx Instructions: administer after the same meal each day sertraline 50 mg tablet 50 mg PO DAILY Qty: 90 0RF clonidine HCl 0.1 mg tablet 0.1 mg PO TID Qty: 90 1RF hydroxyzine HCl 25 mg tablet 25 mg PO QID PRN (Reason: itching) Qty: 120 3RF Rx Instructions: itching levothyroxine 75 mcg tablet 75 mcg PO DAILY Qty: 60 0RF Rx Instructions: to replace 50mcg tablets amlodipine 5 mg Tablet 10 mg PO DAILY Qty: 30 0RF allopurinol 100 mg Tablet 100 mg PO DAILY pantoprazole 40 mg tablet,delayed release (DR/EC) 40 mg PO DAILY lisinopril 20 mg tablet 20 mg PO DAILY cinacalcet 30 mg tablet 30 mg PO DAILY minoxidil 2.5 mg tablet 5 mg PO BID nifedipine 90 mg tablet extended release 24hr 90 mg PO DAILY hydralazine 50 mg tablet 100 mg PO TID sucralfate 1 gram tablet 1 g PO Q6H PRN (Reason: Acid Reflux) Auryxia 210 mg iron tablet 2 tab PO TID Fosrenol 1,000 mg powder in packet 200 mg PO TID RenaPlex-D 800 mcg-12.5 mg -2,000 unit tablet 1 tab PO DAILY sucralfate [Carafate] 1 gram tablet 1 g PO Q6H PRN (Reason: dyspepsia/stomach upset) 28 Days Qty: 112 0RF Discharge Orders: Discharge ED (Routine); Ordered 10/18/22 Ordered By: Adán Gillis Referrals: Randolph Ortiz MD [Primary Care Provider] - Discharge Diet: Usual diet Discharge Activity: Increase activity as tolerated Patient Instructions: Dialysis Diet (DC), End Stage Kidney Disease (ED) Activity Restrictions/Additional Instructions: Follow-up for your dialysis appointment as scheduled. Continue with medications as directed. Follow-up with primary care for further instructions. Coding Level of Care Code ED [employer] for Eric Sandhu
[2022-10-18] MEDS: ondansetron 2 mg/ML SDV 2 mL 4 MG IM (23:00)
[2022-10-18 23:09] LABS: Basophils % 0.3 %; Eosinophils # 0.1 10^3/uL (0.0-0.8); Eosinophils % 1.2 %; Hematocrit 28.1 % (42.0-52.0); Hemoglobin 9.1 g/dL (11.7-16.6); Lymphocytes # 1.4 10^3/uL (0.8-4.8); Lymphocytes % 14.9 %; Mean Corpuscular HGB Conc 32.4 g/dL (30.0-36.0); Mean Corpuscular Hemoglobin 30.5 pg (28.0-34.0); Mean Corpuscular Volume 94.3 fl (80-94); Mean Platelet Volume 10.1 fL (7.4-10.4); Monocytes # 0.9 10^3/uL (0.2-0.9); Monocytes % 9.5 %; Neutrophils # 7.12 10^3/uL (1.8-7.7); Neutrophils % 73.9 %; Nucleated Red Blood Cells % 0 %; Platelet Count 195 10^3/cmm (130-400); Red Blood Count 2.98 10^6/uL (4.1-5.3); Red Cell Distribution Width 14.2 % (12.1-15.1); White Blood Count 9.7 10^3/uL (4.0-10.0)
[2022-10-18 23:47] LABS: Alanine Aminotransferase 11 U/L (0-41); Albumin Level 3.1 g/dL (3.5-5.2); Alkaline Phosphatase 62 U/L (40-130); Anion Gap 17.2 (5-19); Aspartate Amino Transferase 19 U/L (0-40); Blood Urea Nitrogen 40 mg/dL (6-20); Calcium 9.6 mg/dL (8.5-10.5); Carbon Dioxide 28 mmol/L (22-29); Chloride 97 mmol/L (98-107); Glomerular Filtration Rate 7.6 mL/min (90-130); Glucose 78 mg/dL (65-115); Lipase 48 U/L (13-60); Osmolality Calculated 295 mOsm/kg (285-295); Potassium 4.2 mmol/L (3.5-5.1); Sodium 138 mmol/L (136-145); Total Bilirubin 0.4 mg/dL (0.15-1.2); Total Protein 5.1 g/dL (6.6-8.7)
[2022-10-19 00:16] VITALS: BP 186/101; PULSE 83; RESP 20; O2SAT 93
== END 2022-10-19 00:17 | disposition home or self-care (01) ==
PROVIDERS: Emergency Medicine; Emergency Provider Nurse Practitioner Family; PCP Family Medicine
DX: N18.6 End stage renal disease (principal); R11.0 Nausea; Z99.2 Dependence on renal dialysis
CPT/HCPCS: 74022; 80053; 83690; 85025; 96372; 99284; J2405

== ENCOUNTER 2022-10-20 09:59 | Day surgery (SDC) | payer MEDICARE, MEDICAID, SELFPAY ==
[2022-10-16 11:48] VITALS: BMI 28.1
--- NOTE | 2022-10-20 10:07 | US_ITS ---
WS: [id number] ULTRASOUND-GUIDED PARACENTESIS CLINICAL INFORMATION: ascites COMPARISON: None. Procedure Informed consent: The risks, benefits, and alternatives of the procedure were discussed with the lisa ent. Verbal and written consent was obtained. Timeout: A timeout was performed to confirm the correct patient, procedure, and site. Preparation: A suitable skin site was identified. The patient was prepped and draped in usual sterile fashion. Lidocaine 1% was used for local anesthesia. Catheter: 4 Kenyan One-step Yueh catheter. Side: LEFT Lower quadrant. Fluid Volume: 4800 ml Color: Clear yellow DISPOSITION: Discarded safely. Complications: None. Patient disposition: Discharged from the department in stable condition. US/US paracentesis abd w [id number] IMPRESSION: Uncomplicated ultrasound-guided paracentesis. Removal of 4800cc
[2022-10-20 10:15] VITALS: BP 181/96; PULSE 69; RESP 18; TEMP 36.6; O2SAT 93
[2022-10-20] MEDS: albumin 75 G/300 ML BAG 999 G IV (10:50)
== END 2022-10-20 11:30 | disposition home or self-care (01) ==
LOC: GILAB 09:59
PROVIDERS: Radiology Neuroradiology; PCP Family Medicine; Visit Provider Internal Medicine Nephrology
PROC: (CPT 49082; principal; 2022-10-20 12:00)
DX: R18.8 Other ascites (principal)
CPT/HCPCS: 49083; 96365; P9046

== ENCOUNTER 2022-10-22 17:43 | Emergency (ER) | payer MEDICARE, MEDICAID, SELFPAY ==
--- NOTE | 2022-10-22 18:01 | ED_ITS ---
HPI - General Adult General: Chief complaint: General Medical Stated complaint: Vaisler sent for high bp Time Seen by Provider: 10/22/22 18:01 History of Present Illness: Mr. Savage is a 57-year-old gentleman with complex past medical history including ESLD requiring weekly paracenteses and ESRD on hemodialysis presenting to the emergency department for generalized illness and high blood pressure. He is unsure exactly how long his blood pressure has been this high. He notes generalized malaise and feeling fatigued. He also notes tightness in his abdomen. He denies headaches or visual disturbance. At times he has abnormal sensation in his left leg. Overall course of symptoms has persisted. He reports compliance with his medication regimen. Last dialysis yesterday and reports full run completed. No other specific changes in health, exacerbating, or alleviating factors identified. Onset (ago): hour(s) Severity: moderate Relieving factors: none Exacerbating factors: none Review of Systems General: Reports: 10 or more systems reviewed and unremarkable except in HPI and below PFSH ED PFSH: Medical History Bilateral hydronephrosis Bradycardia Chronic anemia CVA (cerebral vascular accident) Dependence on peritoneal dialysis Dilated aortic root ESRD (end stage renal disease) GERD (gastroesophageal reflux disease) History of stroke Hypertension Hypothyroidism Incomplete bladder emptying Neuropathy, lumbosacral (radicular) Polycystic kidney disease Right bundle branch block (RBBB) on electrocardiogram (ECG) Surgical History AV fistula History of colonoscopy 2019 at [facility] History of surgical procedure Peritoneal dialysis catheter placement by Dr. Kamara 2015 S/P hemodialysis catheter insertion (03/13/20) 23cm long exchanged right IJ Removed on 06/11/2020 Family History Mother Chronic kidney disease (CKD) Stroke Father Cancer lung Brother Hypertension Denies family history of Diabetes CAD (coronary artery disease) Clotting disorder Dementia Hyperlipidemia Psychiatric illness Anesthesia complication Bleeding disorder Lung disease Social History Smoking and tobacco status: current every day smoker cigarettes [ Other cigarette details: Half a pack per day for last 20-30 years] Alcohol intake: never Substance/Drug Use: current Substance/Drug use frequency: few times a week Lives independently: Yes Household members: family Housing: House Marital status: Number of children: 1 Current occupational status: disabled Current gender identity: Male Agree to transfusion: Yes Physical Exam Const: COMMON NORMALS: alert GENERAL APPEARANCE: cooperative and well developed HENMT: COMMON NORMALS: normocephalic and atraumatic HEAD & SCALP: normocephalic and atraumatic Eye: COMMON NORMALS: conjunctivae normal CONJUNCTIVA: Yes conjunctivae normal SCLERA: sclerae normal Neck/C-Spine: COMMON NORMALS: supple GENERAL: Yes trachea midline Resp: COMMON NORMALS: normal respiratory effort EFFORT & INSPECTION: Yes able to speak in complete sentences Cardio: COMMON NORMALS: regular rate and regular rhythm RATE: regular rate RHYTHM: regular rhythm GI: COMMON NORMALS: Soft to palpation PALPATION: Yes Soft to palpation, No Tenderness to palpation present (GI) and Yes Ascites present Extremity: GENERAL: Yes normal exam except as noted and No edema Neuro: COMMON NORMALS: moves all extremities SENSORIUM/ORIENTATION: Yes a lert and No Orientation impaired Psych: COMMON NORMALS: mental status grossly normal and Normal thought process present THOUGHT PROCESS: Normal thought process present Course 2 Vital Signs: Vital signs: Vital Signs Temperature 98.4 F 10/22/22 18:11 Pulse Rate 84 10/22/22 20:12 Respiratory Rate 24 H 10/22/22 19:42 Blood Pressure 165/96 10/22/22 20:00 Pulse Oximetry 93 10/22/22 20:12 Oxygen Delivery Me thod Room Air 10/22/22 20:12 [facility] - General Adult Medical Decision Making 57-year-old gentleman with complex past medical history presenting due to high blood pressure. Exam as above. Patient is nontoxic. No neurologic deficits. EKG demonstrates sinus rhythm with left axis deviation, normal intervals, no STEMI. Labs notable for no leukocytosis, mildly worse than baseline normocytic anemia though no evidence of bleeding on exam. Metabolic panel consistent with end- stage renal disease, no emergent need for dialysis electrolyte grover. Negative ratio delta troponin. BNP is elevated. Given clinical exam and reported clinical history there is no occasion for imaging at this time Patient given multiple doses of antihypertensives. He would have transient improvement. Ultimately I believe that the patient requires admission for volume overload related hypertension however he subsequently became frustrated with trials of medication for blood pressure control that were necessary prior to admission and left AGAINST MEDICAL ADVICE. He has capacity to make medical decisions based on my interaction with the patient. Medical Records I reviewed the patient's medical records. Lab Data I reviewed the patient's lab results. 10/22/22 18:35 10/22/22 18:35 Laboratory Results WBC 7.7 10^3/uL (4.0-10.0) 10/22/22 18:35 RBC 2.67 10^6/uL (4.1-5.3) L 10/22/22 18:35 Hgb 8.1 g/dL (11.7-16.6) L 10/22/22 18:35 Hct 25.0 % (42.0-52.0) L 10/22/22 18:35 MCV 93.6 fl (80-94) 10/22/22 18:35 MCH 30.3 pg (28.0-34.0) 10/22/22 18:35 MCHC 32.4 g/dL (30.0-36.0) 10/22/22 18:35 RDW 14.0 % (12.1-15.1) 10/22/22 18:35 Plt Count 173 10^3/cmm (130-400) 10/22/22 18:35 MPV 10.3 fL (7.4-10.4) 10/22/22 18:35 Neut % (Auto) 71.6 % 10/22/22 18:35 Lymph % (Auto) 17.2 % 10/22/22 18:35 Mower % (Auto) 9.2 % 10/22/22 18:35 Eos % (Auto) 1.4 % 10/22/22 18:35 Baso % (Auto) 0.3 % 10/22/22 18:35 Neut # (Auto) 5.53 10^3/uL (1.8-7.7) 10/22/22 18:35 Lymph # (Auto) 1.3 10^3/uL (0.8-4.8) 10/22/22 18:35 Mower # (Auto) 0.7 10^3/uL (0.2-0.9) 10/22/22 18:35 Eos # (Auto) 0.1 10^3/uL (0.0-0.8) 10/22/22 18:35 Baso # (Auto) 0.0 10^3/uL (0.0-0.1) 10/22/22 18:35 Nucleated RBC % (auto) 0 % 10/22/22 18:35 Nucleated RBCs # 0.0 /100WBC 10/22/22 18:35 Sodium 137 mmol/L (136-145) 10/22/22 18:35 Potassium 4.5 mmol/L (3.5-5.1) 10/22/22 18:35 Chloride 98 mmol/L (98-107) 10/22/22 18:35 Carbon Dioxide 30 mmol/L (22-29) H 10/22/22 18:35 Anion Gap 13.5 (5-19) 10/22/22 18:35 BUN 38 mg/dL (6-20) H 10/22/22 18:35 Creatinine 4.9 mg/dL (0.7-1.2) H 10/22/22 18:35 GFR Calculation 12.3 mL/min (90-130) L 10/22/22 18:35 Glucose 87 mg/dL (65-115) 10/22/22 18:35 Calculated Osmolality 292 mOsm/kg (285-295) 10/22/22 18:35 Calcium 9.5 mg/dL (8.5-10.5) 10/22/22 18:35 Total Bilirubin 0.3 mg/dL (0.15-1.2) 10/22/22 18:35 AST 18 U/L (0-40) 10/22/22 18:35 ALT 9 U/L (0-41) 10/22/22 18:35 Alkaline Phosphatase 56 U/L (40-130) 10/22/22 18:35 Troponin T Baseline 341 ng/L (0-15) H* 10/22/22 18:35 Troponin T 120 Minute 328.0 ng/L (0-15) H 10/22/22 20:13 Delta Troponin T -13.0 ABS# (0-10) L 10/22/22 20:13 NT-Pro-B Natriuret Pep > 32518 pg/mL (0-125) H 10/22/22 18:35 Total Protein 5.0 g/dL (6.6-8.7) L 10/22/22 18:35 Albumin 3.4 g/dL (3.5-5.2) L 10/22/22 18:35 Globulin 1.6 g/dL (1.3-4.6) 10/22/22 18:35 Discharge Plan Discharge Patient Disposition: Left Against Medical Advice Clinical Impression: Hypertension, uncontrolled, ESRD needing dialysis, End stage liver disease Condition: Stable Prescriptions: No Action isosorbide mononitrate 60 mg tablet extended release 24 hr 60 mg PO DAILY simvastatin 40 mg tablet 40 mg PO DAILY ondansetron HCl 4 mg tablet 4 mg PO Q8H Qty: 10 0RF cholecalciferol (vitamin D3) 125 mcg (5,000 unit) capsule 125 mcg PO DAILY alfuzosin 10 mg tablet extended release 24 hr 10 mg PO DAILY Rx Instructions: administer after the same meal each day sertraline 50 mg tablet 50 mg PO DAILY Qty: 90 0RF clonidine HCl 0.1 mg tablet 0.1 mg PO TID Qty: 90 1RF hydroxyzine HCl 25 mg tablet 25 mg PO QID PRN (Reason: itching) Qty: 120 3RF Rx Instructions: itching levothyroxine 75 mcg tablet 75 mcg PO DAILY Qty: 60 0RF Rx Instructions: to replace 50mcg tablets amlodipine 5 mg Tablet 10 mg PO DAILY Qty: 30 0RF allopurinol 100 mg Tablet 100 mg PO DAILY pantoprazole 40 mg tablet,delayed release (DR/EC) 40 mg PO DAILY lisinopril 20 mg tablet 20 mg PO DAILY cinacalcet 30 mg tablet 30 mg PO DAILY minoxidil 2.5 mg tablet 5 mg PO BID nifedipine 90 mg tablet extended release 24hr 90 mg PO DAILY hydralazine 50 mg tablet 100 mg PO TID sucralfate 1 gram tablet 1 g PO Q6H PRN (Reason: Acid Reflux) Auryxia 210 mg iron tablet 2 tab PO TID Fosrenol 1,000 mg powder in packet 200 mg PO TID RenaPlex-D 800 mcg-12.5 mg -2,000 unit tablet 1 tab PO DAILY Referrals: Randolph Ortiz MD [Primary Care Provider] - Coding Level of Care Code ED Armhole Baster Hand for Efreng Phoebe
[2022-10-22 18:11] VITALS: BP 211/102; PULSE 75; RESP 16; TEMP 36.9; O2SAT 98
--- NOTE | 2022-10-22 18:20 | ECG_ITS ---
[facility] Test Date: 2022-10-22 Pat Name: Navneet Savage Department: Room: Gender: Male Clinical Laboratory Scientist: : 1965 Requested By: Jay Domingo Order Number: [id number] Nate MD: Saurabh Fitzpatrick M.D. Measurements Intervals [place] Rate: 74 P: 6 KS: 136 QRS: -22 QRSD: 104 T: 4 QT: 410 QTc: 457 Interpretive Statements SINUS RHYTHM MODERATE VOLTAGE CRITERIA FOR LVH, CONSIDER NORMAL VARIANT [MEETS CRITERIA IN ONE OF: R(aVL), S(V1), R(V5), R(V5/V6)+S(V1)] POSSIBLE SEPTAL MYOCARDIAL INFARCTION , OF INDETERMINATE AGE [30 ms Q WAVE IN V1/V2] Compared to ECG 10/11/2022 07:06:29 Myocardial infarct finding now present Left-axis deviation no longer present Electronically Signed On 10-23-2022 8:31:25 CDT by Saurabh Fitzpatrick M.D. [id number]
[2022-10-22] MEDS: hyDRALAzine 25 mg Tablet 100 MG PO (18:37)
[2022-10-22 18:39] VITALS: BP 199/106; PULSE 83; O2SAT 94
[2022-10-22 18:47] LABS: Basophils % 0.3 %; Eosinophils # 0.1 10^3/uL (0.0-0.8); Eosinophils % 1.4 %; Hemoglobin 8.1 g/dL (11.7-16.6); Lymphocytes # 1.3 10^3/uL (0.8-4.8); Lymphocytes % 17.2 %; Mean Corpuscular HGB Conc 32.4 g/dL (30.0-36.0); Mean Corpuscular Hemoglobin 30.3 pg (28.0-34.0); Mean Corpuscular Volume 93.6 fl (80-94); Mean Platelet Volume 10.3 fL (7.4-10.4); Monocytes # 0.7 10^3/uL (0.2-0.9); Monocytes % 9.2 %; Neutrophils # 5.53 10^3/uL (1.8-7.7); Neutrophils % 71.6 %; Nucleated Red Blood Cells % 0 %; Platelet Count 173 10^3/cmm (130-400); Red Blood Count 2.67 10^6/uL (4.1-5.3); White Blood Count 7.7 10^3/uL (4.0-10.0)
[2022-10-22 19:06] LABS: Troponin(5th) Baseline 341 ng/L (0-15)
[2022-10-22 19:13] LABS: Alanine Aminotransferase 9 U/L (0-41); Albumin Level 3.4 g/dL (3.5-5.2); Alkaline Phosphatase 56 U/L (40-130); Anion Gap 13.5 (5-19); Aspartate Amino Transferase 18 U/L (0-40); Blood Urea Nitrogen 38 mg/dL (6-20); Calcium 9.5 mg/dL (8.5-10.5); Carbon Dioxide 30 mmol/L (22-29); Chloride 98 mmol/L (98-107); Globulin 1.6 g/dL (1.3-4.6); Glomerular Filtration Rate 12.3 mL/min (90-130); Glucose 87 mg/dL (65-115); Osmolality Calculated 292 mOsm/kg (285-295); Potassium 4.5 mmol/L (3.5-5.1); Sodium 137 mmol/L (136-145); Total Bilirubin 0.3 mg/dL (0.15-1.2)
[2022-10-22 19:42] VITALS: BP 176/85; PULSE 78; RESP 24; O2SAT 92
[2022-10-22 19:50] VITALS: BP 176/85
[2022-10-22] MEDS: cloNIDine 0.1 mg Tablet PO (19:50)
[2022-10-22 19:56] LABS: NT Pro B Type Natriuretic Pept > 70000 pg/mL (0-125)
[2022-10-22 20:00] VITALS: BP 165/96
[2022-10-22 20:12] VITALS: PULSE 84; O2SAT 93
--- NOTE | 2022-10-22 20:20 | ECG_ITS ---
[facility] Test Date: 2022-10-22 Pat Name: Navneet Savage Department: Room: Gender: Male Director Of Labor And Delivery: : 1965 Requested By: Jay Domingo Order Number: [id number] Nate MD: Saurabh Fitzpatrick M.D. Measurements Intervals [place] Rate: 87 P: 37 MS: 157 QRS: -42 QRSD: 102 T: 35 QT: 385 QTc: 466 Interpretive Statements SINUS RHYTHM LEFT AXIS DEVIATION [QRS AXIS < -30] MODERATE VOLTAGE CRITERIA FOR LVH, CONSIDER NORMAL VARIANT [MEETS CRITERIA IN ONE OF: R(aVL), S(V1), R(V5), R(V5/V6)+S(V1)] Compared to ECG 10/22/2022 18:34:36 Left-axis deviation now present Myocardial infarct finding no longer present Electronically Signed On 10-23-2022 8:33:13 CDT by Saurabh Fitzpatrick M.D. [id number]
--- NOTE | 2022-10-22 20:58 | PC.NURSE ---
RN TO BEDSIDE TO GIVE ORDERED IV HYDRALAZINE, RN TO START IV. PT REFUSED STATING YOU ARE JUST TRYING TO MAKE ME A PIN CUSHION. I JUST WANT TO LEAVE. PT EDUCATED ON RISKS. INFORMED. PT SIGNED AMA FORM AND AMBULATED OUT OF ER WITH ALL BELONGINGS.
== END 2022-10-22 21:00 | disposition left against medical advice (07) ==
PROVIDERS: Emergency Provider Emergency Medicine; PCP Family Medicine
DX: I12.0 Hypertensive chronic kidney disease with stage 5 chronic kidney disease or end stage renal disease (principal); N18.6 End stage renal disease; Z99.2 Dependence on renal dialysis; Z86.73 Personal history of transient ischemic attack (TIA), and cerebral infarction without residual deficits; F17.210 Nicotine dependence, cigarettes, uncomplicated
CPT/HCPCS: 36415; 80053; 83880; 84484; 85025; 93005; 99284

== ENCOUNTER 2022-10-25 03:49 | Emergency (ER) | payer MEDICARE, MEDICAID, SELFPAY ==
[2022-10-25] VITALS (7 sets, daily range): BP systolic 144–218; BP diastolic 99–121; PULSE 82–93; RESP 16–20; TEMP 36.9; O2SAT 90–96; BMI 28.0
[2022-10-25] MEDS: ondansetron 4 MG Tablet PO (04:43)
[2022-10-25] MEDS: nitroglycerin 0.4 mg sublingual Tablet SUBLINGUAL ×2 (04:43→05:29)
[2022-10-25] MEDS: cloNIDine 0.1 mg Tablet 0.2 MG PO (04:43)
[2022-10-25] MEDS: amlodipine 10 mg Tablet PO (04:46)
--- NOTE | 2022-10-25 15:47 | W.ED.GENADLT ---
HPI - General Adult General: Chief complaint: General Medical Stated complaint: High B/P Time Seen by Provider: 10/25/22 04:24 Source: patient History of Present Illness: 57 year old male well known to the emergency department. He has a history of end stage renal disease on dialysis. He awoke this morning, not feeling well. He has a general feeling of malaise, and mild shortness of breath. He figured his blood pressure was high. He no longer has a working blood pressure cuff at home, so he presents for evaluation. His blood pressure is significantly elevated. His last dialysis was on Wednesday. He does not know if he has gained any water weight. Onset (ago): minute(s) Radiation: non-radiation Severity: mild Relieving factors: none Exacerbating factors: none Associated symptoms: Reports dyspnea, nausea, short of breath and weakness (generalized); Deny chest pain, confusion, cough, diaphoresis, fevers/chills, headache(s), syncope or vomiting Review of Systems Const: Denies: fever(s) or diaphoresis Eyes: Denies: change in vision ENMT: Denies: throat pain Card: Denies: chest pain or syncope Resp: Reports: dyspnea; Denies: productive cough or non-productive cough GI: Reports: nausea; Denies: vomiting Neuro: Denies: headache(s) or confusion PFS ED PFSH: Medical History Bilateral hydronephrosis Bradycardia Chronic anemia CVA (cerebral vascular accident) Dependence on peritoneal dialysis Dilated aortic root ESRD (end stage renal disease) GERD (gastroesophageal reflux disease) History of stroke Hypertension Hypothyroidism Incomplete bladder emptying Neuropathy, lumbosacral (radicular) Polycystic kidney disease Right bundle branch block (RBBB) on electrocardiogram (ECG) Surgical History AV fistula History of colonoscopy 2019 at [facility] History of surgical procedure Peritoneal dialysis catheter placement by Dr. Kamara 2015 S/P hemodialysis catheter insertion (03/13/20) 23cm long exchanged right IJ Removed on 06/11/2020 Family History Mother Chronic kidney disease (CKD) Stroke Father Cancer lung Brother Hypertension Denies family history of Diabetes CAD (coronary artery disease) Clotting disorder Dementia Hyperlipidemia Psychiatric illness Anesthesia complication Bleeding disorder Lung disease Social History Smoking and tobacco status: current every day smoker cigarettes [ Other cigarette details: Half a pack per day for last 20-30 years] Alcohol intake: never Substance/Drug Use: current Substance/Drug use frequency: few times a week Lives independently: Yes Household members: family Housing: House Marital status: Number of children: 1 Current occupational status: disabled Current gender identity: Male Agree to transfusion: Yes Physical Exam Const: COMMON NORMALS: no acute distress GENERAL APPEARANCE: cooperative, frail appearing and appears older than stated age HENMT: COMMON NORMALS: normocephalic, atraumatic and Normal external nose present HEAD & SCALP: normocephalic and atraumatic FACE & SINUS: normal facial exam and face symmetric NOSE: Normal external nose present Eye: COMMON NORMALS: Equal, round and reactive pupils present and EOMs intact bilaterally PUPIL: Yes Equal, round and reactive pupils present Neck/C-Spine: GENERAL: Yes trachea midline Chest: CHEST: Yes Symmetrical chest wall rise Resp: COMMON NORMALS: normal respiratory effort, No retractions, No use of accessory muscles and clear to auscultation bilaterally AUSCULTATION: clear to auscultation bilaterally Cardio: COMMON NORMALS: regular rate and regular rhythm RATE: regular rate RHYTHM: regular rhythm GI: COMMON NORMALS: Normal to inspection, nondistended, normoactive bowel sounds present Extremity: COMMON NORMALS: no pedal edema Neuro: FINA COMA SCALE: document GCS findings Fina coma scale eye opening: Spontaneous Fina coma scale verbal response: Orientated Fina coma scale motor response: Obey commands [place] coma scale total score: 15 SENSORY EXAM: Yes extremities (intact) Psych: COMMON NORMALS: speech normal SPEECH: Yes normal speech Skin: COMMON NORMALS: no rashes or lesions noted GENERAL SKIN EXAM: no rashes or lesions noted Course Vital Signs: Vital signs: Vital Signs Temperature 98.4 F 10/25/22 05:46 Pulse Rate 91 10/25/22 05:46 Respiratory Rate 16 10/25/22 05:46 Blood Pressure 144/121 10/25/22 05:46 Pulse Oximetry 90 10/25/22 05:46 [facility] - General Adult Medical Decision Making Blood pressure is down to the 140 systolic. He's feeling improved. His next dialysis is in 24 hours. He will take his home blood pressure medications as prescribed. He'll be allowed discharge. Discharge Plan Discharge Patient Disposition: Home Clinical Impression: Hypertension, ESRD (end stage renal disease) Condition: Stable Prescriptions: No Action isosorbide mononitrate 60 mg tablet extended release 24 hr 60 mg PO DAILY simvastatin 40 mg tablet 40 mg PO DAILY ondansetron HCl 4 mg tablet 4 mg PO Q8H Qty: 10 0RF cholecalciferol (vitamin D3) 125 mcg (5,000 unit) capsule 125 mcg PO DAILY alfuzosin 10 mg tablet extended release 24 hr 10 mg PO DAILY Rx Instructions: administer after the same meal each day sertraline 50 mg tablet 50 mg PO DAILY Qty: 90 0RF clonidine HCl 0.1 mg tablet 0.1 mg PO TID Qty: 90 1RF hydroxyzine HCl 25 mg tablet 25 mg PO QID PRN (Reason: itching) Qty: 120 3RF Rx Instructions: itching levothyroxine 75 mcg tablet 75 mcg PO DAILY Qty: 60 0RF Rx Instructions: to replace 50mcg tablets amlodipine 5 mg Tablet 10 mg PO DAILY Qty: 30 0RF allopurinol 100 mg Tablet 100 mg PO DAILY pantoprazole 40 mg tablet,delayed release (DR/EC) 40 mg PO DAILY lisinopril 20 mg tablet 20 mg PO DAILY cinacalcet 30 mg tablet 30 mg PO DAILY minoxidil 2.5 mg tablet 5 mg PO BID nifedipine 90 mg tablet extended release 24hr 90 mg PO DAILY hydralazine 50 mg tablet 100 mg PO TID sucralfate 1 gram tablet 1 g PO Q6H PRN (Reason: Acid Reflux) Auryxia 210 mg iron tablet 2 tab PO TID Fosrenol 1,000 mg powder in packet 200 mg PO TID RenaPlex-D 800 mcg-12.5 mg -2,000 unit tablet 1 tab PO DAILY sucralfate [Carafate] 1 gram tablet 1 g PO Q6H PRN (Reason: dyspepsia/stomach upset) 28 Days Qty: 112 0RF Discharge Orders: Discharge ED (Routine); Ordered 10/25/22 Ordered By: Thomas Smart Referrals: Randolph Ortiz MD [Primary Care Provider] - 1-3 days Patient Instructions: Hypertension (ED), End Stage Kidney Disease (ED) Coding Level of Care 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
== END 2022-10-25 05:47 | disposition home or self-care (01) ==
PROVIDERS: Emergency Provider Emergency Medicine; PCP Family Medicine
DX: I12.0 Hypertensive chronic kidney disease with stage 5 chronic kidney disease or end stage renal disease (principal); F17.210 Nicotine dependence, cigarettes, uncomplicated; N18.6 End stage renal disease; Z99.2 Dependence on renal dialysis
CPT/HCPCS: 99283; Q0162

== ENCOUNTER 2022-10-27 10:49 | Day surgery (SDC) | payer MEDICARE, MEDICAID, SELFPAY ==
--- NOTE | 2022-10-27 10:50 | US_ITS ---
WS: [id number] ULTRASOUND-GUIDED THERAPEUTIC PARACENTESIS Procedure, risks, and complications have been explained to the patient. Consent is obtained. Utilizing aseptic technique and 1% buffered lidocaine, a small dermatome was made through which a 5 F rench Yueh catheter was inserted. Approximately 5500 ml of clear peritoneal fluid was obtained witho ut difficulty. No complications encountered. US/US paracentesis abd [id number] IMPRESSION: Uncomplicated paracentesis yielding 5500 ml of peritoneal fluid.
[2022-10-27 10:56] VITALS: BP 184/99; PULSE 63; RESP 18; TEMP 36.3; O2SAT 98
[2022-10-27] MEDS: lidocaine 1% INJ 10 mL (per mL) XX (11:28)
[2022-10-27] MEDS: albumin 75 G/300 ML BAG 999 G IV (11:37)
== END 2022-10-27 12:20 | disposition home or self-care (01) ==
LOC: GILAB 10:49
PROVIDERS: Radiology Diagnostic Radiology; PCP Family Medicine; Visit Provider Internal Medicine Nephrology
PROC: (CPT 49082; principal; 2022-10-27 12:00)
DX: R18.8 Other ascites (principal)
CPT/HCPCS: 49083; 96365; P9046

== ENCOUNTER 2022-10-29 17:28 | Emergency (ER) | payer MEDICARE, MEDICAID, SELFPAY ==
[2022-10-29 17:46] VITALS: BP 187/93; PULSE 79; RESP 18; TEMP 528.8; TEMP 984; O2SAT 98; BMI 28.1
[2022-10-29 17:48] VITALS: BP 170/78; PULSE 73; O2SAT 96
--- NOTE | 2022-10-29 17:52 | W.ED.DIZZY ---
HPI - Dizziness General: Chief Complaint: Dizziness Stated Complaint: high bp Time Seen by Provider: 10/29/22 17:52 History of Present Illness: HPI Narrative: 57-year-old male patient comes in today with complaints of headache and some mild dizziness. Patient reports otherwise he feels fine. Patient has end-stage renal disease and routinely has dialysis. Patient has not missed any of his dialysis appointments. Patient's blood pressure is 187 systolic. Patient appears nontoxic. Patient appears in mild pain. Associated symptoms: Denies chest pain or vomiting Review of Systems General: Reports: 10 or more systems reviewed and unremarkable except in HPI and below Const: Denies: fever(s) Card: Denies: chest pain Resp: Denies: dyspnea GI: Denies: vomiting Musc: Denies: neck pain or back pain Skin/Breast: Denies: rash PFSH ED PFSH: Medical History Bilateral hydronephrosis Bradycardia Chronic anemia CVA (cerebral vascular accident) Dependence on peritoneal dialysis Dilated aortic root ESRD (end stage renal disease) GERD (gastroesophageal reflux disease) History of stroke Hypertension Hypothyroidism Incomplete bladder emptying Neuropathy, lumbosacral (radicular) Polycystic kidney disease Right bundle branch block (RBBB) on electrocardiogram (ECG) Surgical History AV fistula History of colonoscopy 2019 at [facility] History of surgical procedure Peritoneal dialysis catheter placement by Dr. Kamara 2016 S/P hemodialysis catheter insertion (03/13/20) 23cm long exchanged right IJ Removed on 06/11/2020 Family History Mother Chronic kidney disease (CKD) Stroke Father Cancer lung Brother Hypertension Denies family history of Diabetes CAD (coronary artery disease) Clotting disorder Dementia Hyperlipidemia Psychiatric illness Anesthesia complication Bleeding disorder Lung disease Social History Smoking and tobacco status: current every day smoker cigarettes [ Other cigarette details: Half a pack per day for last 20-30 years] Alcohol intake: never Substance/Drug Use: current Substance/Drug use frequency: few times a week Lives independently: Yes Household members: family Housing: House Marital status: Number of children: 1 Current occupational status: disabled Current gender identity: Male Agree to transfusion: Yes Physical Exam Const: COMMON NORMALS: alert HENMT: COMMON NORMALS: normocephalic HEAD & SCALP: normocephalic Eye: GENERAL EYE: appearance normal, both eyes and all related structures Resp: COMMON NORMALS: normal respiratory effort and clear to auscultation bilaterally AUSCULTATION: clear to auscultation bilaterally Cardio: COMMON NORMALS: regular rate and regular rhythm RATE: regular rate RHYTHM: regular rhythm GI: COMMON NORMALS: Soft to palpation PALPATION: Yes Soft to palpation Back/Pelvis: COMMON NORMALS: thoracic and lumbar spine normal to inspection Extremity: COMMON NORMALS: no pedal edema Neuro: SENSORIUM/ORIENTATION: Yes alert Skin: COMMON NORMALS: turgor normal GENERAL SKIN EXAM: turgor normal Course Vital Signs: Vital signs: Vital Signs Temperature 984 F H 10/29/22 17:46 Pulse Rate 84 10/29/22 18:18 Respiratory Rate 18 10/29/22 17:46 Blood Pressure 178/107 10/29/22 18:18 Pulse Oximetry 96 10/29/22 18:18 Oxygen Delivery Me thod Room Air 10/29/22 18:18 MDM - Dizziness Medical Decision Making A 57-year-old male patient comes in today for complaints of headache and elevated blood pressure. Patient does routinely come to the ER for similar symptoms. Patient has end-stage renal disease and at times does have significantly high blood pressure. Patient reports he has not missed any of his dialysis treatments and has been taking his medication routinely. Patient reports he feels well but has had this headache and dizziness starting this afternoon. No focal neural deficits. No significant edema is noted in the extremities. Abdomen soft. Lungs are clear to auscultation. Heart rates regular. Differential diagnosis includes but not limited to hypertensive urgency, headache, anxiety about health. Patient was medicated with 0.2 clonidine. Patient resolution of dizziness and headache blood pressure really was not much changed though. It was still less than 200 systolic. Do not believe we will get full control of this blood pressure due to his end-stage renal disease. Patient was recommended to continue with his routine medications and follow-up with primary care regarding his headaches and other treatment options for his headaches. Discharge Plan Discharge Patient Disposition: Home Clinical Impression: ESRD (end stage renal disease) Headache Qualifiers: Headache type: unspecified Headache chronicity pattern: episodic headache Intractability: not intractable Qualified Code(s): R51.9 - Headache, unspecified Condition: Stable Prescriptions: No Action isosorbide mononitrate 60 mg tablet extended release 24 hr 60 mg PO DAILY simvastatin 40 mg tablet 40 mg PO DAILY ondansetron HCl 4 mg tablet 4 mg PO Q8H Qty: 10 0RF cholecalciferol (vitamin D3) 125 mcg (5,000 unit) capsule 125 mcg PO DAILY alfuzosin 10 mg tablet extended release 24 hr 10 mg PO DAILY Rx Instructions: administer after the same meal each day sertraline 50 mg tablet 50 mg PO DAILY Qty: 90 0RF clonidine HCl 0.1 mg tablet 0.1 mg PO TID Qty: 90 1RF hydroxyzine HCl 25 mg tablet 25 mg PO QID PRN (Reason: itching) Qty: 120 3RF Rx Instructions: itching levothyroxine 75 mcg tablet 75 mcg PO DAILY Qty: 60 0RF Rx Instructions: to replace 50mcg tablets amlodipine 5 mg Tablet 10 mg PO DAILY Qty: 30 0RF allopurinol 100 mg Tablet 100 mg PO DAILY pantoprazole 40 mg tablet,delayed release (DR/EC) 40 mg PO DAILY lisinopril 20 mg tablet 20 mg PO DAILY cinacalcet 30 mg tablet 30 mg PO DAILY minoxidil 2.5 mg tablet 5 mg PO BID nifedipine 90 mg tablet extended release 24hr 90 mg PO DAILY hydralazine 50 mg tablet 100 mg PO TID sucralfate 1 gram tablet 1 g PO Q6H PRN (Reason: Acid Reflux) Auryxia 210 mg iron tablet 2 tab PO TID Fosrenol 1,000 mg powder in packet 200 mg PO TID RenaPlex-D 800 mcg-12.5 mg -2,000 unit tablet 1 tab PO DAILY Discharge Orders: Discharge ED (Routine); Ordered 10/29/22 Ordered By: Adán Gillis Referrals: Randolph Ortiz MD [Primary Care Provider] - Discharge Diet: Usual diet Discharge Activity: Increase activity as tolerated Patient Instructions: Acute Headache (ED) Activity Restrictions/Additional Instructions: Continue with routine medications. Activity as tolerated. Follow-up with primary care for further instructions regarding headaches. Return to ER for new concerns or worsening symptoms. 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
[2022-10-29 18:05] VITALS: BP 170/78
[2022-10-29] MEDS: cloNIDine 0.1 mg Tablet 0.2 MG PO (18:05)
[2022-10-29 18:18] VITALS: BP 178/107; PULSE 84; O2SAT 96
[2022-10-29 18:30] VITALS: BP 197/106; PULSE 81; O2SAT 100
[2022-10-29 19:15] VITALS: PULSE 77; O2SAT 96
== END 2022-10-29 19:12 | disposition home or self-care (01) ==
PROVIDERS: Emergency Provider Nurse Practitioner Family; PCP Family Medicine
DX: R51.9 Headache, unspecified (principal); I12.0 Hypertensive chronic kidney disease with stage 5 chronic kidney disease or end stage renal disease; N18.6 End stage renal disease; Z99.2 Dependence on renal dialysis
CPT/HCPCS: 99283

== ENCOUNTER 2022-10-31 02:36 | Emergency (ER) | payer MEDICARE, MEDICAID, SELFPAY ==
[2022-10-31 02:51] VITALS: BP 209/113; PULSE 81; RESP 16; O2SAT 96
[2022-10-31] MEDS: hyDRALAzine 20 mg/mL INJ 1 mL IM (02:58)
[2022-10-31 03:00] VITALS: BP 183/119; PULSE 76; RESP 16; O2SAT 97
--- NOTE | 2022-10-31 03:00 | W.ED.RECABL ---
HPI - Recheck/Abnormal Lab/Rx General: Chief Complaint: Recheck/Abnormal Lab/Rx Stated Complaint: feels like his blood pressure is high Time Seen by Provider: 10/31/22 02:38 Source: patient Mode of arrival: ambulatory Limitations: no limitations History of Present Illness: 57-year-old male with a history of end-stage renal disease gets dialysis on Wednesday he states that he was having hard time sleeping night felt like his blood pressure is high he has been seen here multiple times in the past for hypertension he denies any pain denies any headache denies any nausea vomiting he has not missed dialysis. Review of Systems Const: Denies: fever(s), chills, body aches or change in appetite ENMT: Denies: throat pain or dental pain Card: Denies: chest pain Resp: Denies: dyspnea GI: Denies: abdominal pain, nausea, vomiting or diarrhea : Denies: dysuria Musc: Denies: neck pain or back pain Skin/Breast: Denies: rash Neuro: Denies: headache(s) PFSH ED PFSH: Medical History Bilateral hydronephrosis Bradycardia Chronic anemia CVA (cerebral vascular accident) Dependence on peritoneal dialysis Dilated aortic root ESRD (end stage renal disease) GERD (gastroesophageal reflux disease) History of stroke Hypertension Hypothyroidism Incomplete bladder emptying Neuropathy, lumbosacral (radicular) Polycystic kidney disease Right bundle branch block (RBBB) on electrocardiogram (ECG) Surgical History AV fistula History of colonoscopy 2019 at [facility] History of surgical procedure Peritoneal dialysis catheter placement by Dr. Kamara 2016 S/P hemodialysis catheter insertion (03/13/20) 23cm long exchanged right IJ Removed on 06/11/2020 Family History Mother Chronic kidney disease (CKD) Stroke Father Cancer lung Brother Hypertension Denies family history of Diabetes CAD (coronary artery disease) Clotting disorder Dementia Hyperlipidemia Psychiatric illness Anesthesia complication Bleeding disorder Lung disease Social History Smoking and tobacco status: current every day smoker cigarettes [ Other cigarette details: Half a pack per day for last 20-30 years] Alcohol intake: never Substance/Drug Use: current Substance/Drug use frequency: few times a week Lives independently: Yes Household members: family Housing: House Marital status: Number of children: 1 Current occupational status: disabled Current gender identity: Male Agree to transfusion: Yes Physical Exam Const: COMMON NORMALS: no acute distress, patient oriented x3 and healthy appearing HENMT: COMMON NORMALS: normocephalic and atraumatic HEAD & SCALP: normocephalic and atraumatic Neck/C-Spine: COMMON NORMALS: full ROM and supple Chest: COMMONS NORMALS: normal inspection of the chest and normal palpation of entire chest wall Resp: COMMON NORMALS: normal respiratory effort, No retractions, No use of accessory muscles and clear to auscultation bilaterally AUSCULTATION: clear to auscultation bilaterally Cardio: COMMON NORMALS: regular rate, regular rhythm and No murmurs present (Cardio) RATE: regular rate RHYTHM: regular rhythm GI: COMMON NORMALS: Normal to inspection, nondistended, normoactive bowel sounds present, Soft to palpation, non-tender and no masses PALPATION: Yes Soft to palpation Extremity: COMMON NORMALS: normal to inspection and full ROM Neuro: COMMON NORMALS: patient oriented x3, moves all extremities and no focal motor deficits Psych: COMMON NORMALS: mental status grossly normal, Normal thought process present and cooperative THOUGHT PROCESS: Normal thought process present Skin: COMMON NORMALS: no rashes or lesions noted and no wounds GENERAL SKIN EXAM: no rashes or lesions noted Course Vital Signs: Vital signs: Vital Signs Pulse Rate 75 10/31/22 03:50 Respiratory Rate 14 10/31/22 03:50 Blood Pressure 157/73 10/31/22 03:50 Pulse Oximetry 95 10/31/22 03:50 Oxygen Delivery Me thod Room Air 10/31/22 03:00 MDM - Recheck/Abnormal Lab/Rx Medical Decision Making Patient presents with hypertension is chronic in nature his blood pressure here is improved he is stable for discharge he is to follow-up with PCP and return if worsening. Discharge Plan Discharge Patient Disposition: Home Clinical Impression: Hypertension Condition: Stable Prescriptions: No Action isosorbide mononitrate 60 mg tablet extended release 24 hr 60 mg PO DAILY simvastatin 40 mg tablet 40 mg PO DAILY ondansetron HCl 4 mg tablet 4 mg PO Q8H Qty: 10 0RF cholecalciferol (vitamin D3) 125 mcg (5,000 unit) capsule 125 mcg PO DAILY alfuzosin 10 mg tablet extended release 24 hr 10 mg PO DAILY Rx Instructions: administer after the same meal each day sertraline 50 mg tablet 50 mg PO DAILY Qty: 90 0RF clonidine HCl 0.1 mg tablet 0.1 mg PO TID Qty: 90 1RF hydroxyzine HCl 25 mg tablet 25 mg PO QID PRN (Reason: itching) Qty: 120 3RF Rx Instructions: itching levothyroxine 75 mcg tablet 75 mcg PO DAILY Qty: 60 0RF Rx Instructions: to replace 50mcg tablets amlodipine 5 mg Tablet 10 mg PO DAILY Qty: 30 0RF allopurinol 100 mg Tablet 100 mg PO DAILY pantoprazole 40 mg tablet,delayed release (DR/EC) 40 mg PO DAILY lisinopril 20 mg tablet 20 mg PO DAILY cinacalcet 30 mg tablet 30 mg PO DAILY minoxidil 2.5 mg tablet 5 mg PO BID nifedipine 90 mg tablet extended release 24hr 90 mg PO DAILY hydralazine 50 mg tablet 100 mg PO TID sucralfate 1 gram tablet 1 g PO Q6H PRN (Reason: Acid Reflux) Auryxia 210 mg iron tablet 2 tab PO TID Fosrenol 1,000 mg powder in packet 200 mg PO TID RenaPlex-D 800 mcg-12.5 mg -2,000 unit tablet 1 tab PO DAILY Discharge Orders: Discharge ED (Routine); Ordered 10/31/22 Ordered By: Ghada Fontanez Referrals: Randolph Ortiz MD [Primary Care Provider] - 1-3 days Discharge Diet: Advance as tolerated Discharge Activity: Resume usual activity Patient Instructions: Hypertension (ED) Coding Level of Care Code 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
[2022-10-31 03:33] VITALS: BP 159/111
[2022-10-31] MEDS: cloNIDine 0.1 mg Tablet 0.2 MG PO (03:33)
[2022-10-31 03:50] VITALS: BP 157/73; PULSE 75; RESP 14; O2SAT 95
== END 2022-10-31 03:48 | disposition home or self-care (01) ==
PROVIDERS: Emergency Provider Emergency Medicine; PCP Family Medicine
DX: I12.0 Hypertensive chronic kidney disease with stage 5 chronic kidney disease or end stage renal disease (principal); N18.6 End stage renal disease; Z99.2 Dependence on renal dialysis; Z86.73 Personal history of transient ischemic attack (TIA), and cerebral infarction without residual deficits; F17.210 Nicotine dependence, cigarettes, uncomplicated
CPT/HCPCS: 96372; 99284; J0360

== ENCOUNTER → 2022-11-03 10:41 | Day surgery (SDC) | payer MEDICARE, MEDICAID, SELFPAY ==
[2022-11-03 10:58] VITALS: BP 194/92; PULSE 70; RESP 17; O2SAT 95
--- NOTE | 2022-11-03 11:13 | US_ITS ---
WS: [id number] ULTRASOUND-GUIDED PARACENTESIS CLINICAL INFORMATION: ascites COMPARISON: None. Procedure Informed consent: The risks, benefits, and alternatives of the procedure were discussed with the lisa ent. Verbal and written consent was obtained. Timeout: A timeout was performed to confirm the correct patient, procedure, and site. Preparation: A suitable skin site was identified. The patient was prepped and draped in usual sterile fashion. Lidocaine 1% was used for local anesthesia. Catheter: 4 [place] One-step Yueh catheter. Side: RIGHT Lower quadrant. Fluid Volume: 4300 ml Color: Clear yellow DISPOSITION: Discarded safely. Complications: None. Patient disposition: Discharged from the department in stable condition. US/US paracentesis abd [id number] IMPRESSION: Uncomplicated ultrasound-guided paracentesis. Removal of 4300 cc
[2022-11-03] MEDS: lidocaine 1% INJ 10 mL (per mL) 20 ML XX (11:39)
[2022-11-03] MEDS: albumin 75 G/300 ML BAG 300 G IV (11:51)
[2022-11-03 12:21] VITALS: BP 190/99; PULSE 79; RESP 16; O2SAT 92
== END ==
PROVIDERS: Radiology Neuroradiology; PCP Family Medicine; Visit Provider Internal Medicine Nephrology
PROC: (CPT 49082; principal; 2022-11-03 12:00)
DX: R18.8 Other ascites (principal)
CPT/HCPCS: 49083; 96365; P9046

== ENCOUNTER 2022-11-06 03:07 | Emergency (ER) | payer MEDICARE, MEDICAID, SELFPAY ==
[2022-11-06 03:17] VITALS: BP 174/93; PULSE 67; RESP 18; TEMP 36.6; O2SAT 97; BMI 28.1
[2022-11-06 03:20] VITALS: BP 174/93; PULSE 76; RESP 16; O2SAT 96
--- NOTE | 2022-11-06 03:27 | ED_ITS ---
HPI - General Adult General: Chief complaint: General Medical Stated complaint: Cant Sleep Been awake three days Time Seen by Provider: 11/06/22 03:13 History of Present Illness: DistalPatient presents ER with complaints of for about the last 3 days. Patient does peritoneal dialysis throughout the night and then people are at his house and a daytime therefore cannot sleep in the daytime is been about 3 days since patient is get sleep. Patient just wants to take symptoms to go to sleep. Patient has not tried anything [id number] or prescription grover. 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 Kamara 2016 S/P hemodialysis catheter insertion (03/13/20) 23cm long exchanged right IJ Removed on 06/11/2020 Family History Mother Chronic kidney disease (CKD) Stroke Father Cancer lung Brother Hypertension Denies family history of Diabetes CAD (coronary artery disease) Clotting disorder Dementia Hyperlipidemia Psychiatric illness Anesthesia complication Bleeding disorder Lung disease Social History Smoking and tobacco status: current every day smoker cigarettes [ Other cigarette details: Half a pack per day for last 20-30 years] Alcohol intake: never Substance/Drug Use: current Substance/Drug use frequency: few times a week Lives independently: Yes Household members: family Housing: House Marital status: Number of children: 1 Current occupational status: disabled Current gender identity: Male Agree to transfusion: Yes Physical Exam Const: COMMON NORMALS: no acute distress, average body habitus, patient oriented x3, no limitations, healthy appearing, alert and well nourished HENMT: COMMON NORMALS: normocephalic, atraumatic, hearing grossly normal bilaterally, external ears normal, Normal external nose present and moist oral mucous membranes HEAD & SCALP: normocephalic and atraumatic NOSE: Normal external nose present EXTERNAL EAR: Yes external ears normal Neck/C-Spine: COMMON NORMALS: no JVD Chest: COMMONS NORMALS: normal inspection of the chest and normal palpation of entire chest wall Resp: COMMON NORMALS: normal respiratory effort, No retractions, No use of accessory muscles and clear to auscultation bilaterally AUSCULTATION: clear to auscultation bilaterally Cardio: COMMON NORMALS: no JVD, regular rate, regular rhythm, S1 normal heart sound present, S2 normal heart sound present, No gallops present (Cardio), No clicks present (Cardio), No murmurs present (Cardio) and No rub (Cardio) RATE: regular rate RHYTHM: regular rhythm HEART SOUNDS: S1 normal heart sound present and S2 normal heart sound present GI: COMMON NORMALS: Normal to inspection, nondistended, normoactive bowel sounds present, Soft to palpation, non-tender, No hepatosplenomegaly present and no masses PALPATION: Yes Soft to palpation and Yes No hepatosplenomegaly present Neuro: COMMON NORMALS: patient oriented x3 SENSORIUM/ORIENTATION: Yes alert Course Vital Signs: Vital signs: Vital Signs Temperature 97.8 F 11/06/22 03:17 Pulse Rate 76 11/06/22 03:20 Respiratory Rate 16 11/06/22 03:20 Blood Pressure 174/93 11/06/22 03:20 Pulse Oximetry 96 11/06/22 03:20 MDM - General Adult Medical Decision Making Patient presents to the ER with complaints of insomnia for the last 3 days. Patient has not tried anything prescription or [id number]. Patient will b e given a dose of hydroxyzine 50 mg now and a prescription to go home with. Patient is to follow-up with his PCP on an as-needed basis for this. Differential Diagnosis Insomnia Lab Data I reviewed the patient's lab results. Discharge Plan Discharge Patient Disposition: Home Clinical Impression: Insomnia Qualifiers: Insomnia type: primary Qualified Code(s): F51.01 - Primary insomnia Condition: Stable Prescriptions: New hydroxyzine HCl 50 mg tablet 50 mg PO .qhs PRN (Reason: insomnia) Qty: 14 0RF No Action isosorbide mononitrate 60 mg tablet extended release 24 hr 60 mg PO DAILY simvastatin 40 mg tablet 40 mg PO DAILY ondansetron HCl 4 mg tablet 4 mg PO Q8H Qty: 10 0RF cholecalciferol (vitamin D3) 125 mcg (5,000 unit) capsule 125 mcg PO DAILY alfuzosin 10 mg tablet extended release 24 hr 10 mg PO DAILY Rx Instructions: administer after the same meal each day sertraline 50 mg tablet 50 mg PO DAILY Qty: 90 0RF clonidine HCl 0.1 mg tablet 0.1 mg PO TID Qty: 90 1RF hydroxyzine HCl 25 mg tablet 25 mg PO QID PRN (Reason: itching) Qty: 120 3RF Rx Instructions: itching levothyroxine 75 mcg tablet 75 mcg PO DAILY Qty: 60 0RF Rx Instructions: to replace 50mcg tablets amlodipine 5 mg Tablet 10 mg PO DAILY Qty: 30 0RF allopurinol 100 mg Tablet 100 mg PO DAILY pantoprazole 40 mg tablet,delayed release (DR/EC) 40 mg PO DAILY lisinopril 20 mg tablet 20 mg PO DAILY cinacalcet 30 mg tablet 30 mg PO DAILY minoxidil 2.5 mg tablet 5 mg PO BID nifedipine 90 mg tablet extended release 24hr 90 mg PO DAILY hydralazine 50 mg tablet 100 mg PO TID sucralfate 1 gram tablet 1 g PO Q6H PRN (Reason: Acid Reflux) Auryxia 210 mg iron tablet 2 tab PO TID Fosrenol 1,000 mg powder in packet 200 mg PO TID RenaPlex-D 800 mcg-12.5 mg -2,000 unit tablet 1 tab PO DAILY Discharge Orders: Discharge ED (Routine); Ordered 11/06/22 Ordered By: Albert Mcneill Referrals: Randolph Ortiz MD [Primary Care Provider] - 1 week Patient Instructions: Insomnia (ED) Activity Restrictions/Additional Instructions: Please follow instructions. Medicine only take 1 as needed at bedtime for insomnia. Please follow-up with your family practice doctor for further evaluation and treatment. Coding Level of Care Code ED Electronic Engraver for Eric Sandhu
[2022-11-06] MEDS: hyDROXYzine 25 mg Capsule 50 MG PO (03:36)
[2022-11-06 03:42] VITALS: BP 174/93; PULSE 76; RESP 16; TEMP 36.6; O2SAT 96
== END 2022-11-06 03:43 | disposition home or self-care (01) ==
PROVIDERS: Emergency Provider Emergency Medicine; PCP Family Medicine
DX: F51.01 Primary insomnia (principal); F17.210 Nicotine dependence, cigarettes, uncomplicated; Z86.73 Personal history of transient ischemic attack (TIA), and cerebral infarction without residual deficits; I12.0 Hypertensive chronic kidney disease with stage 5 chronic kidney disease or end stage renal disease; N18.6 End stage renal disease
CPT/HCPCS: 99283

== ENCOUNTER 2022-11-08 06:34 | Emergency (ER) | payer MEDICARE, MEDICAID, SELFPAY ==
--- NOTE | 2022-11-08 06:42 | ED_ITS ---
HPI - General Adult General: Chief complaint: General Medical Stated complaint: can't sleep, wants bp checked Time Seen by Provider: 11/08/22 06:41 History of Present Illness: Mr. Savage is a 57-year-old gentleman presenting to the emergency department for concern over insomnia. He reports 3-day history of worsening. Mostly endorses difficulty falling asleep, once asleep he sleeps fine. Additionally he is concerned for blood pressure however he only took his clonidine so far this morning. Denies chest pain or shortness of breath. No abdominal pain. No infectious symptoms. Denies PND or significant orthopnea as sleep related issues. Dialysis Wednesday. Has paracentesis scheduled for Wednesday no other specific changes in health, exacerbating, or alleviating factors identified. Onset (ago): day(s) Review of Systems General: Reports: 10 or more systems reviewed and unremarkable except in HPI and below PFSH ED PFSH: Medical History Bilateral hydronephrosis Bradycardia Chronic anemia CVA (cerebral vascular accident) Dependence on peritoneal dialysis Dilated aortic root ESRD (end stage renal disease) GERD (gastroesophageal reflux disease) History of stroke Hypertension Hypothyroidism Incomplete bladder emptying Neuropathy, lumbosacral (radicular) Polycystic kidney disease Right bundle branch block (RBBB) on electrocardiogram (ECG) Surgical History AV fistula History of colonoscopy 2019 at [facility] History of surgical procedure Peritoneal dialysis catheter placement by Dr. Kamara 2015 S/P hemodialysis catheter insertion (03/13/20) 23cm long exchanged right IJ Removed on 06/11/2020 Family History Mother Chronic kidney disease (CKD) Stroke Father Cancer lung Brother Hypertension Denies family history of Diabetes CAD (coronary artery disease) Clotting disorder Dementia Hyperlipidemia Psychiatric illness Anesthesia complication Bleeding disorder Lung disease Social History Smoking and tobacco status: current every day smoker cigarettes Packs smoked per day: 1 [ Other cigarette details: Half a pack per day for last 20-30 years] Alcohol intake: never Substance/Drug Use: current Substance/Drug use frequency: few times a week Lives independently: Yes Household members: family Housing: House Marital status: Number of children: 1 Current occupational status: disabled Current gender identity: Male Agree to transfusion: Yes Physical Exam Const: COMMON NORMALS: alert GENERAL APPEARANCE: cooperative and well developed HENMT: COMMON NORMALS: normocephalic and atraumatic HEAD & SCALP: normocephalic and atraumatic Eye: COMMON NORMALS: conjunctivae normal CONJUNCTIVA: Yes conjunctivae normal SCLERA: sclerae normal Neck/C-Spine: COMMON NORMALS: supple GENERAL: Yes trachea midline Resp: COMMON NORMALS: clear to auscultation bilaterally EFFORT & INSPECTION: Yes able to speak in complete sentences AUSCULTATION: clear to auscultation bilaterally Cardio: COMMON NORMALS: regular rate and regular rhythm RATE: regular rate RHYTHM: regular rhythm GI: COMMON NORMALS: Soft to palpation PALPATION: Yes Soft to palpation and No Tenderness to palpation present (GI) Extremity: GENERAL: Yes normal exam except as noted and No edema Neuro: COMMON NORMALS: moves all extremities SENSORIUM/ORIENTATION: Yes alert and No Orientation impaired Psych: COMMON NORMALS: mental status grossly normal and Normal thought process present THOUGHT PROCESS: Normal thought process present Course Vital Signs: Vital signs: Vital Signs Temperature 98.7 F 11/08/22 07:03 Pulse Rate 82 11/08/22 07:36 Respiratory Rate 18 11/08/22 07:36 Blood Pressure 169/88 11/08/22 07:36 Pulse Oximetry 95 11/08/22 07:36 Oxygen Delivery Me thod Room Air 11/08/22 07:03 MDM - General Adult Medical Decision Making 57-year-old gentleman with complex history presenting due to insomnia. This is a recurring issue for the patient. Previously has tried hydroxyzine without significant improvement. Clinically patient appears to be at baseline health. His description of symptoms is not consistent with volume overload or exacerbation of underlying conditions as a underlying cause. Discussed risks of medications that are sleep aids. We will trial trazodone. The results of ED evaluation were given to the patient including prescriptions and/or symptomatic cares (if applicable) including appropriate and responsible use, followup plan, and return precautions. The patient verbalized understanding and felt safe for discharge. Medical Records I reviewed the patient's medical records. Lab Data I reviewed the patient's lab results. Discharge Plan Discharge Patient Disposition: Home Clinical Impression: Insomnia Condition: Stable Prescriptions: New trazodone 50 mg tablet 25 mg PO BEDTIME PRN (Reason: insomnia) Qty: 20 0RF Rx Instructions: one half to one tablets at bedtime as needed for insomnia No Action isosorbide mononitrate 60 mg tablet extended release 24 hr 60 mg PO DAILY simvastatin 40 mg tablet 40 mg PO DAILY cholecalciferol (vitamin D3) 125 mcg (5,000 unit) capsule 125 mcg PO DAILY sertraline 50 mg tablet 50 mg PO DAILY Qty: 90 0RF hydroxyzine HCl 25 mg tablet 25 mg PO QID PRN (Reason: itching) Qty: 120 3RF Rx Instructions: itching levothyroxine 75 mcg tablet 75 mcg PO DAILY Qty: 60 0RF allopurinol 100 mg Tablet 100 mg PO DAILY lisinopril 20 mg tablet 20 mg PO DAILY cinacalcet 30 mg tablet 30 mg PO DAILY minoxidil 2.5 mg tablet 5 mg PO BID hydralazine 50 mg tablet 100 mg PO TID sucralfate 1 gram tablet 1 g PO Q6H PRN (Reason: Acid Reflux) clonidine HCl 0.2 mg tablet 0.2 mg PO BID Hold Instructions: Resume on 01/06/23. MONITOR YOUR B/P KEEP A LOG DISCUSS WITH PCP BEFORE STARTING hydroxyzine HCl 50 mg tablet 50 mg PO QPM PRN (Reason: Itching) carvedilol 25 mg tablet 25 mg PO DAILY Auryxia 210 mg iron tablet 2 tab PO TID RenaPlex-D 800 mcg-12.5 mg -2,000 unit tablet 1 tab PO DAILY Discharge Orders: Discharge ED (Routine); Ordered 11/08/22 Ordered By: Jay Domingo Referrals: Randolph Ortiz MD [Primary Care Provider] - Discharge Diet: Usual diet Discharge Activity: Resume usual activity Patient Instructions: Trazodone (By mouth) (Desyrel, Desyrel Dividose, Oleptro, Trazamine), Insomnia (ED) Activity Restrictions/Additional Instructions: Thank you for visiting the emergency department. You were seen and evaluated for insomnia. The most likely cause of your insomnia is unclear however does not seem to be related to exacerbation of underlying medical conditions given exam and description of symptoms. I will prescribe trazodone. As discussed, given complex underlying medical conditions I do worry about increased risk of side effects. Start with half a tablet at bedtime as needed for insomnia and increase to 1 whole tablet if needed. Watch for side effects. Follow-up with your primary care provider. Please ensure to attend your dialysis and paracenteses appointments this week. Return for chest pain, shortness of breath, low blood pressure, side effects t hat you are concerned about, or anything else that you are concerned about and feel needs emergency department evaluation Coding Level of Care Code ED Insecticide Expert for Eric Sandhu
[2022-11-08 07:03] VITALS: BP 189/105; PULSE 80; RESP 17; TEMP 37.1; O2SAT 95
[2022-11-08] MEDS: hyDRALAzine 25 mg Tablet 100 MG PO (07:25)
[2022-11-08 07:36] VITALS: BP 169/88; PULSE 82; RESP 18; O2SAT 95
== END 2022-11-08 07:38 | disposition home or self-care (01) ==
PROVIDERS: Emergency Provider Emergency Medicine; PCP Family Medicine
DX: G47.00 Insomnia, unspecified (principal); F17.210 Nicotine dependence, cigarettes, uncomplicated; Z86.73 Personal history of transient ischemic attack (TIA), and cerebral infarction without residual deficits; I12.0 Hypertensive chronic kidney disease with stage 5 chronic kidney disease or end stage renal disease; N18.6 End stage renal disease
CPT/HCPCS: 99283

== ENCOUNTER 2022-11-10 10:46 | Day surgery (SDC) | payer MEDICARE, MEDICAID, SELFPAY ==
[2022-11-09 09:09] VITALS: BMI 28.1
--- NOTE | 2022-11-10 10:53 | US_ITS ---
WS: [id number]-GUIDED [id number] PARACENTESIS Procedure, risks, and complications have been explained to the patient. Consent is obtained. Utilizing aseptic technique and 1% buffered lidocaine, a small dermatome was made through which a 5 F rench Yueh catheter was inserted. Approximately 3600 ml of clear peritoneal fluid was obtained witho ut difficulty. No complications encountered. US/US paracentesis [id number] IMPRESSION: Uncomplicated paracentesis yielding 3600 ml of peritoneal fluid.
[2022-11-10 11:00] VITALS: BP 196/122; PULSE 79; RESP 18; TEMP 36.2; O2SAT 97
[2022-11-10] MEDS: albumin 75 G/300 ML BAG 999 G IV (11:41)
== END 2022-11-10 12:18 | disposition home or self-care (01) ==
LOC: GILAB 10:49
PROVIDERS: Radiology Diagnostic Radiology; PCP Family Medicine; Visit Provider Internal Medicine Nephrology
PROC: (CPT 49082; principal; 2022-11-10 12:00)
DX: R18.8 Other ascites (principal)
CPT/HCPCS: 49083; P9046

== ENCOUNTER 2022-11-11 04:16 | Emergency (ER) | payer MEDICARE, MEDICAID, SELFPAY ==
[2022-11-11 04:39] VITALS: BP 188/103; PULSE 81; RESP 16; TEMP 36.8; O2SAT 98; BMI 28.0
[2022-11-11 04:43] VITALS: BP 189/109; PULSE 75; RESP 18; O2SAT 98
--- NOTE | 2022-11-11 04:45 | W.ED.GENADLT ---
HPI - General Adult General: Chief complaint: General Medical Stated complaint: B/P problems Time Seen by Provider: 11/11/22 04:43 Source: patient Mode of arrival: ambulatory Limitations: no limitations History of Present Illness: 57-year-old male who is very well-known to the ER has a history of end-stage renal disease along with hypertension he did receive dialysis on Wednesday he receives it again today states he had a mild headache tonight when he felt like his blood pressure is high. He denies any chest pain denies any shortness of breath denies any worsening improving factors. Associated symptoms: Reports headache(s); Deny chest pain, dyspnea, nausea, rash or vomiting Review of Systems Const: Denies: fever(s), chills, body aches or change in appetite Eyes: Denies: blurry vision or eye discomfort ENMT: Denies: throat pain or dental pain Card: Denies: chest pain Resp: Denies: dyspnea GI: Denies: abdominal pain, nausea, vomiting or diarrhea Musc: Denies: neck pain or back pain Skin/Breast: Denies: rash Neuro: Reports: headache(s) PFSH ED PFSH: Medical History Bilateral hydronephrosis Bradycardia Chronic anemia CVA (cerebral vascular accident) Dependence on peritoneal dialysis Dilated aortic root ESRD (end stage renal disease) GERD (gastroesophageal reflux disease) History of stroke Hypertension Hypothyroidism Incomplete bladder emptying Neuropathy, lumbosacral (radicular) Polycystic kidney disease Right bundle branch block (RBBB) on electrocardiogram (ECG) Surgical History AV fistula History of colonoscopy 2019 at [facility] History of surgical procedure Peritoneal dialysis catheter placement by Dr. Kamara 2015 S/P hemodialysis catheter insertion (03/13/20) 23cm long exchanged right IJ Removed on 06/11/2020 Family History Mother Chronic kidney disease (CKD) Stroke Father Cancer lung Brother Hypertension Denies family history of Diabetes CAD (coronary artery disease) Clotting disorder Dementia Hyperlipidemia Psychiatric illness Anesthesia complication Bleeding disorder Lung disease Social History Smoking and tobacco status: current every day smoker cigarettes [ Other cigarette details: Half a pack per day for last 20-30 years] Alcohol intake: never Substance/Drug Use: current Substance/Drug use frequency: few times a week Lives independently: Yes Household members: family Housing: House Marital status: Number of children: 1 Current occupational status: disabled Current gender identity: Male Agree to transfusion: Yes Physical Exam Const: COMMON NORMALS: no acute distress, patient oriented x3 and healthy appearing HENMT: COMMON NORMALS: normocephalic and atraumatic HEAD & SCALP: normocephalic and atraumatic Eye: COMMON NORMALS: conjunctivae normal CONJUNCTIVA: Yes conjunctivae normal Neck/C-Spine: COMMON NORMALS: full ROM and supple Chest: COMMONS NORMALS: normal inspection of the chest Resp: COMMON NORMALS: normal respiratory effort Cardio: COMMON NORMALS: regular rate, regular rhythm and No murmurs present (Cardio) RATE: regular rate RHYTHM: regular rhythm GI: INSPECTION: Yes normal to inspection Extremity: COMMON NORMALS: normal to inspection and full ROM Neuro: COMMON NORMALS: patient oriented x3, moves all extremities and no focal motor deficits Psych: COMMON NORMALS: mental status grossly normal, Normal thought process present and cooperative THOUGHT PROCESS: Normal thought process present Skin: COMMON NORMALS: no rashes or lesions noted and no wounds GENERAL SKIN EXAM: no rashes or lesions noted Course Vital Signs: Vital signs: Vital Signs Temperature 98.2 F 11/11/22 04:39 Pulse Rate 75 11/11/22 04:43 Respiratory Rate 18 11/11/22 04:43 Blood Pressure 189/109 11/11/22 04:43 Pulse Oximetry 98 11/11/22 04:43 Oxygen Delivery Me thod Room Air 11/11/22 04:43 [facility] - General Adult Medical Decision Making Patient presents here with hypertension his blood pressure here is improved he is stable for discharge she is to get dialysis today as scheduled and return if worsening. Discharge Plan Discharge Patient Disposition: Home Clinical Impression: Hypertension Condition: Stable Prescriptions: No Action isosorbide mononitrate 60 mg tablet extended release 24 hr 60 mg PO DAILY simvastatin 40 mg tablet 40 mg PO DAILY ondansetron HCl 4 mg tablet 4 mg PO Q8H Qty: 10 0RF cholecalciferol (vitamin D3) 125 mcg (5,000 unit) capsule 125 mcg PO DAILY alfuzosin 10 mg tablet extended release 24 hr 10 mg PO DAILY Rx Instructions: administer after the same meal each day sertraline 50 mg tablet 50 mg PO DAILY Qty: 90 0RF clonidine HCl 0.1 mg tablet 0.1 mg PO TID Qty: 90 1RF hydroxyzine HCl 25 mg tablet 25 mg PO QID PRN (Reason: itching) Qty: 120 3RF Rx Instructions: itching levothyroxine 75 mcg tablet 75 mcg PO DAILY Qty: 60 0RF Rx Instructions: to replace 50mcg tablets amlodipine 5 mg Tablet 10 mg PO DAILY Qty: 30 0RF allopurinol 100 mg Tablet 100 mg PO DAILY pantoprazole 40 mg tablet,delayed release (DR/EC) 40 mg PO DAILY lisinopril 20 mg tablet 20 mg PO DAILY cinacalcet 30 mg tablet 30 mg PO DAILY minoxidil 2.5 mg tablet 5 mg PO BID nifedipine 90 mg tablet extended release 24hr 90 mg PO DAILY hydralazine 50 mg tablet 100 mg PO TID sucralfate 1 gram tablet 1 g PO Q6H PRN (Reason: Acid Reflux) Auryxia 210 mg iron tablet 2 tab PO TID Fosrenol 1,000 mg powder in packet 200 mg PO TID RenaPlex-D 800 mcg-12.5 mg -2,000 unit tablet 1 tab PO DAILY hydroxyzine HCl 50 mg tablet 50 mg PO .qhs PRN (Reason: insomnia) Qty: 14 0RF trazodone 50 mg tablet 25 mg PO BEDTIME PRN (Reason: insomnia) Qty: 20 0RF Rx Instructions: one half to one tablets at bedtime as needed for insomnia Discharge Orders: Discharge ED (Routine); Ordered 11/11/22 Ordered By: Ghada Fontanez Referrals: Randolph Ortiz MD [Primary Care Provider] - 1-3 days Discharge Diet: Advance as tolerated Discharge Activity: Resume usual activity Patient Instructions: Hypertension (ED) Coding Level of Care Code ED Metal Mover for Eric Sandhu
[2022-11-11] MEDS: hyDRALAzine 20 mg/mL INJ 1 mL IM (04:46)
[2022-11-11 05:19] VITALS: BP 157/73; PULSE 69; O2SAT 97
== END 2022-11-11 05:20 | disposition home or self-care (01) ==
PROVIDERS: Emergency Provider Emergency Medicine; PCP Family Medicine
DX: I12.0 Hypertensive chronic kidney disease with stage 5 chronic kidney disease or end stage renal disease (principal); F17.210 Nicotine dependence, cigarettes, uncomplicated
CPT/HCPCS: 96372; 99284; J0360

== ENCOUNTER 2022-11-12 21:24 | Observation (INO) | payer MEDICARE, MEDICAID, SELFPAY ==
[2022-11-12 21:44] VITALS: BP 201/99; PULSE 77; RESP 15; TEMP 36.6; O2SAT 97
[2022-11-12 21:50] LABS: Basophils # 0.1 10^3/uL (0.0-0.1); Basophils % 0.7 %; Eosinophils # 0.3 10^3/uL (0.0-0.8); Eosinophils % 3.6 %; Hematocrit 26.4 % (42.0-52.0); Hemoglobin 8.2 g/dL (11.7-16.6); Lymphocytes # 1.4 10^3/uL (0.8-4.8); Lymphocytes % 19.3 %; Mean Corpuscular HGB Conc 31.1 g/dL (30.0-36.0); Mean Corpuscular Hemoglobin 30.5 pg (28.0-34.0); Mean Corpuscular Volume 98.1 fl (80-94); Mean Platelet Volume 9.8 fL (7.4-10.4); Monocytes # 0.8 10^3/uL (0.2-0.9); Monocytes % 10.7 %; Neutrophils # 4.78 10^3/uL (1.8-7.7); Neutrophils % 65.6 %; Nucleated Red Blood Cells % 0 %; Platelet Count 238 10^3/cmm (130-400); Red Blood Count 2.69 10^6/uL (4.1-5.3); Red Cell Distribution Width 14.3 % (12.1-15.1); White Blood Count 7.3 10^3/uL (4.0-10.0)
[2022-11-12 22:04] LABS: Alanine Aminotransferase 10 U/L (0-41); Albumin Level 3.6 g/dL (3.5-5.2); Alkaline Phosphatase 87 U/L (40-130); Anion Gap 16.8 (5-19); Aspartate Amino Transferase 15 U/L (0-40); Blood Urea Nitrogen 20 mg/dL (6-20); Calcium 9.8 mg/dL (8.5-10.5); Carbon Dioxide 31 mmol/L (22-29); Chloride 97 mmol/L (98-107); Globulin 2.1 g/dL (1.3-4.6); Glomerular Filtration Rate 11.2 mL/min (90-130); Glucose 84 mg/dL (65-115); Lipase 41 U/L (13-60); Osmolality Calculated 288 mOsm/kg (285-295); Sodium 138 mmol/L (136-145); Total Bilirubin 0.4 mg/dL (0.15-1.2); Total Protein 5.7 g/dL (6.6-8.7)
--- NOTE | 2022-11-12 22:07 | ED_ITS ---
HPI - General Adult General: Chief complaint: General Medical Stated complaint: abd pain Time Seen by Provider: 11/12/22 21:43 Source: patient Mode of arrival: ambulatory Limitations: no limitations History of Present Illness: 57-year-old male very well-known to the ER he has history of end-stage renal disease along with hypertension he did get dialysis today states he has been having some cramping in his stomach and feeling sick he denies any vomiting or diarrhea denies any pain currently. He denies any fevers he is hypertensive has a mild headache. Associated symptoms: Reports headache(s); Deny chest pain, dyspnea, nausea, rash or vomiting Review of Systems Const: Denies: fever(s), chills, body aches or change in appetite Eyes: Denies: blurry vision or eye discomfort ENMT: Denies: throat pain or dental pain Card: Denies: chest pain Resp: Denies: dyspnea GI: Reports: abdominal pain; Denies: nausea, vomiting or diarrhea Musc: Denies: neck pain or back pain Skin/Breast: Denies: rash Neuro: Reports: headache(s) PFSH ED PFSH: Medical History Bilateral hydronephrosis Bradycardia Chronic anemia CVA (cerebral vascular accident) Dependence on peritoneal dialysis Dilated aortic root ESRD (end stage renal disease) GERD (gastroesophageal reflux disease) History of stroke Hypertension Hypothyroidism Incomplete bladder emptying Neuropathy, lumbosacral (radicular) Polycystic kidney disease Right bundle branch block (RBBB) on electrocardiogram (ECG) Surgical History AV fistula History of colonoscopy [address] [facility] History of surgical procedure Peritoneal dialysis catheter placement by Dr. Kamara 2016 S/P hemodialysis catheter insertion (03/13/20) 23cm long exchanged right IJ Removed on 06/11/2020 Family History Mother Chronic kidney disease (CKD) Stroke Father Cancer lung Brother Hypertension Denies family history of Diabetes CAD (coronary artery disease) Clotting disorder Dementia Hyperlipidemia Psychiatric illness Anesthesia complication Bleeding disorder Lung disease Social History Smoking and tobacco status: current every day smoker cigarettes Packs smoked per day: 1 [ Other cigarette details: Half a pack per day for last 20-30 years] Alcohol intake: never Substance/Drug Use: current Substance/Drug use frequency: few times a week Lives independently: Yes Household members: family Housing: House Marital status: Number of children: 1 Current occupational status: disabled Current gender identity: Male Agree to transfusion: Yes Course Vital Signs: Vital signs: Vital Signs Temperature 97.9 F 11/12/22 21:44 Pulse Rate 71 11/12/22 22:31 Respiratory Rate 16 11/12/22 22:31 Blood Pressure 158/92 11/12/22 22:31 Pulse Oximetry 97 11/12/22 22:31 Oxygen Delivery Me thod Nasal Cannula 11/12/22 22:31 MDM - General Adult Medical Decision Making Patient presents here with end-stage renal disease on dialysis he is hyperkalemic here no EKG changes did give him insulin and D50 states he has not missed dialysis I spoke to the hospitalist and will admit to the ICU at this time. Medical Records I reviewed the patient's medical records. Lab Data I reviewed the patient's lab results. 11/12/22 21:44 11/12/22 22:16 Laboratory Results WBC 7.3 10^3/uL (4.0-10.0) 11/12/22 21:44 RBC 2.69 10^6/uL (4.1-5.3) L 11/12/22 21:44 Hgb 8.2 g/dL (11.7-16.6) L 11/12/22 21:44 Hct 26.4 % (42.0-52.0) L 11/12/22 21:44 MCV 98.1 fl (80-94) H 11/12/22 21:44 MCH 30.5 pg (28.0-34.0) 11/12/22 21:44 MCHC 31.1 g/dL (30.0-36.0) 11/12/22 21:44 RDW 14.3 % (12.1-15.1) 11/12/22 21:44 Plt Count 238 10^3/cmm (130-400) 11/12/22 21:44 MPV 9.8 fL (7.4-10.4) 11/12/22 21:44 Neut % (Auto) 65.6 % 11/12/22 21:44 Lymph % (Auto) 19.3 % 11/12/22 21:44 [place] % (Auto) 10.7 % 11/12/22 21:44 Eos % (Auto) 3.6 % 11/12/22 21:44 Baso % (Auto) 0.7 % 11/12/22 21:44 Neut # (Auto) 4.78 10^3/uL (1.8-7.7) 11/12/22 21:44 Lymph # (Auto) 1.4 10^3/uL (0.8-4.8) 11/12/22 21:44 [place] # (Auto) 0.8 10^3/uL (0.2-0.9) 11/12/22 21:44 Eos # (Auto) 0.3 10^3/uL (0.0-0.8) 11/12/22 21:44 Baso # (Auto) 0.1 10^3/uL (0.0-0.1) 11/12/22 21:44 Nucleated RBC % (auto) 0 % 11/12/22 21:44 Nucleated RBCs # 0.0 /100WBC 11/12/22 21:44 Sodium 138 mmol/L (136-145) 11/12/22 21:44 Potassium 6.8 mmol/L (3.5-5.1) H* 11/12/22 22:16 Chloride 97 mmol/L (98-107) L 11/12/22 21:44 Carbon Dioxide 31 mmol/L (22-29) H 11/12/22 21:44 Anion Gap 16.8 (5-19) 11/12/22 21:44 BUN 20 mg/dL (6-20) 11/12/22 21:44 Creatinine 5.3 mg/dL (0.7-1.2) H 11/12/22 21:44 GFR Calculation 11.2 mL/min (90-130) L 11/12/22 21:44 Glucose 84 mg/dL (65-115) 11/12/22 21:44 Calculated Osmolality 288 mOsm/kg (285-295) 11/12/22 21:44 Calcium 9.8 mg/dL (8.5-10.5) 11/12/22 21:44 Total Bilirubin 0.4 mg/dL (0.15-1.2) 11/12/22 21:44 AST 15 U/L (0-40) 11/12/22 21:44 ALT 10 U/L (0-41) 11/12/22 21:44 Alkaline Phosphatase 87 U/L (40-130) 11/12/22 21:44 Total Protein 5.7 g/dL (6.6-8.7) L 11/12/22 21:44 Albumin 3.6 g/dL (3.5-5.2) 11/12/22 21:44 Globulin 2.1 g/dL (1.3-4.6) 11/12/22 21:44 Lipase 41 U/L (13-60) 11/12/22 21:44 EKG Data EKG 1: I personally reviewed and interpreted this EKG as follows: EKG interpretation date: 11/12/22 EKG interpretation time: 22:18 Interpretation: nsr hr [address] or t wave abnormalities qrs 99 qtc 447 Critical Care Time Critical Care Time: Critical Care Time: Yes Total Critical Care Time: 35 Attestation: The high probability of a clinically significant, sudden or life threatening deterioration of the patient's renal system(s) required my full and direct attention, intervention and personal management. The critical care time is as shown. This time is in addition to time spent performing any reported procedures but includes the following: [x] Data and vital sign review and interpretation [x] Patient assessment, examination and intervention [x] Documentation [x] Medication orders and management Discharge Plan Discharge Patient Disposition: Admitted As Inpatient Clinical Impression: ESRD (end stage renal disease), End stage renal disease on dialysis, Acute hyperkalemia Condition: Stable Prescriptions: No Action isosorbide mononitrate 60 mg tablet extended release 24 hr 60 mg PO DAILY simvastatin 40 mg tablet 40 mg PO DAILY ondansetron HCl 4 mg tablet 4 mg PO Q8H Qty: 10 0RF cholecalciferol (vitamin D3) 125 mcg (5,000 unit) capsule 125 mcg PO DAILY alfuzosin 10 mg tablet extended release 24 hr 10 mg PO DAILY Rx Instructions: administer after the same meal each day sertraline 50 mg tablet 50 mg PO DAILY Qty: 90 0RF clonidine HCl 0.1 mg tablet 0.1 mg PO TID Qty: 90 1RF hydroxyzine HCl 25 mg tablet 25 mg PO QID PRN (Reason: itching) Qty: 120 3RF Rx Instructions: itching levothyroxine 75 mcg tablet 75 mcg PO DAILY Qty: 60 0RF Rx Instructions: to replace 50mcg tablets amlodipine 5 mg Tablet 10 mg PO DAILY Qty: 30 0RF allopurinol 100 mg Tablet 100 mg PO DAILY pantoprazole 40 mg tablet,delayed release (DR/EC) 40 mg PO DAILY lisinopril 20 mg tablet 20 mg PO DAILY cinacalcet 30 mg tablet 30 mg PO DAILY minoxidil 2.5 mg tablet 5 mg PO BID nifedipine 90 mg tablet extended release 24hr 90 mg PO DAILY hydralazine 50 mg tablet 100 mg PO TID sucralfate 1 gram tablet 1 g PO Q6H PRN (Reason: Acid Reflux) Auryxia 210 mg iron tablet 2 tab PO TID Fosrenol 1,000 mg powder in packet 200 mg PO TID RenaPlex-D 800 mcg-12.5 mg -2,000 unit tablet 1 tab PO DAILY hydroxyzine HCl 50 mg tablet 50 mg PO .qhs PRN (Reason: insomnia) Qty: 14 0RF trazodone 50 mg tablet 25 mg PO BEDTIME PRN (Reason: insomnia) Qty: 20 0RF Rx Instructions: one half to one tablets at bedtime as needed for insomnia Referrals: Randolph Ortiz MD [Primary Care Provider] - Coding Level of Care Code ED Doctor Of Pharmacy for Eric Sandhu
[2022-11-12 22:10] LABS: Potassium 6.8 mmol/L (3.5-5.1)
[2022-11-12 22:16] VITALS: BP 160/84; PULSE 72; RESP 22; O2SAT 97
--- NOTE | 2022-11-12 22:18 | ECG_ITS ---
[facility] Test Date: 2022-11-12 Pat Name: Navneet Savage Department: Room: Gender: Male Claims Representative: : 1965 Requested By: Ghada Fontanez Order Number: [id number] Nate MD: Saurabh Ftizpatrick M.D. Measurements Intervals [place] Rate: 74 P: 21 FL: 155 QRS: -36 QRSD: 99 T: 1 QT: 420 QTc: 468 Interpretive Statements SINUS RHYTHM LEFT AXIS DEVIATION [QRS AXIS < -30] MINIMAL VOLTAGE CRITERIA FOR LVH, CONSIDER NORMAL VARIANT [MEETS CRITERIA IN ONE OF: R(aVL), S(V1), R(V5), R(V5/V6)+S(V1)] Compared to ECG 10/22/2022 20:20:59 No significant changes Electronically Signed On 11-13-2022 8:43:37 CDT by Saurabh Fitzpatrick M.D. [id number]
[2022-11-12] MEDS: ondansetron 2 mg/ML SDV 2 mL 4 MG IM (22:23)
--- NOTE | 2022-11-12 22:25 | PC.NURSE ---
Pt placed on bedside radiation monitor
[2022-11-12 22:31] VITALS: BP 158/92; PULSE 71; RESP 16; O2SAT 97
[2022-11-12 22:38] LABS: Potassium 6.8 mmol/L (3.5-5.1)
[2022-11-12] MEDS: insulin regular-human 100 units/1 mL 10 UNIT IVP (22:50)
[2022-11-12 23:00] VITALS: BP 171/97; PULSE 70; RESP 16; O2SAT 95
--- NOTE | 2022-11-12 23:27 | PM.HP ---
Providers/Chief Complaint Admitting Physician: Meera Medrano MD Primary Care Provider: Randolph Ortiz MD Chief Complaint: abd pain History of Present Illness Navneet Savage is a 57 year old male with history of end-stage renal disease on dialysis Wednesday, recurrent ascites, Dilaudid aortic root, hypertension, right bundle branch block, GERD, bradycardia, history of stroke was had recurrent visits to ER since May for various complaints. His blood pressure is not controlled. Patient is unable to afford clonidine patches. He has not seen a supervisor [employer] in quite some time. In the past used to see Dr. Bush. He saw his primary care doctor today as well regarding similar issues. He is on Norvasc, hydralazine, lisinopril, nifedipine, Coreg, minoxidil, Imdur, clonidine. Follows with Dr. Guillaume for cardiology had saw him last in August. For recurrent ascites he has weekly paracentesis scheduled for 5 L of removal. This past Wednesday however he only had 3.5 L removed. Today patient states that he has just been feeling unwell generally. At 1 point also complained of some abdominal pain due to tense ascites. Denies chest pain, diarrhea, constipation. He does chronically have shortness of breath which he says is his usual and not more than normal. Also complains of leg cramping periodically. Denies a fever. Does report some nausea but has not vomited. On arrival to ER blood pressure 158/92, respiratory 16, pulse 71, temperature 97.9, saturating 97% on 2 L nasal cannula. Labs revealed WBC 7.3, hemoglobin 8.2, platelet 238, sodium 138, potassium 6.8 with repeat potassium of 6.8. CO2 31, creatinine 5.3. Patient does still make urine and was dialyzed yesterday. He was given insulin 10 units and dextrose. Hydralazine 20 IM was also ordered however held since patient's blood pressure was better on repeat. Medications/Allergies Home Medications Medication Instructions Recorded Confirmed Last Taken Type allopurinol 100 mg tablet 100 mg PO DAILY 11/27/19 11/12/22 11/10/22 History pantoprazole 40 mg tablet,delayed 40 mg PO DAILY 02/07/20 11/12/22 11/10/22 History release amlodipine 5 mg tablet 10 mg PO DAILY #30 tabs 03/21/21 11/12/22 11/10/22 Rx lisinopril 20 mg tablet 20 mg PO DAILY 07/08/21 11/12/22 11/10/22 History hydralazine 50 mg tablet 100 mg PO TID 04/14/22 11/12/22 11/10/22 History minoxidil 2.5 mg tablet 5 mg PO BID 04/14/22 11/12/22 11/10/22 History nifedipine 90 mg tablet,extended 90 mg PO DAILY 04/14/22 11/12/22 11/10/22 History release 24 hr isosorbide mononitrate 60 mg 60 mg PO DAILY 05/07/22 11/12/22 11/10/22 History tablet,extended release 24 hr simvastatin 40 mg tablet 40 mg PO DAILY 05/07/22 11/12/22 11/10/22 History cinacalcet 30 mg tablet 30 mg PO DAILY 05/12/22 11/12/22 11/10/22 History alfuzosin 10 mg tablet,extended 10 mg PO DAILY 06/18/22 11/12/22 11/10/22 History release 24 hr cholecalciferol (vitamin D3) 125 125 mcg PO DAILY 06/18/22 11/12/22 11/10/22 History mcg (5,000 unit) capsule ferric citrate 210 mg iron tablet 2 tab PO TID 06/22/22 11/12/22 11/10/22 History (Auryxia) lanthanum 1,000 mg oral powder 200 mg PO TID 06/22/22 11/12/22 11/10/22 History packet (Fosrenol) vit B,C-folic ac 800 mcg-zinc 12.5 1 tab PO DAILY 06/22/22 11/12/22 11/10/22 History mg-selen-D3 2,000 unit-vit E tablet (RenaPlex-D) ondansetron HCl 4 mg tablet 4 mg PO Q8H #10 tabs 09/14/22 11/12/22 11/10/22 Rx sertraline 50 mg tablet 50 mg PO DAILY #90 tabs 09/23/22 11/12/22 11/10/22 Rx sucralfate 1 gram tablet 1 g PO Q6H PRN Acid Reflux 10/06/22 11/12/22 11/10/22 History clonidine HCl 0.1 mg tablet 0.1 mg PO TID #90 tabs 10/15/22 11/12/22 11/10/22 Rx hydroxyzine HCl 25 mg tablet 25 mg PO QID PRN itching #120 tabs 10/15/22 11/12/22 11/10/22 Rx levothyroxine 75 mcg tablet 75 mcg PO DAILY #60 tabs 10/15/22 11/12/22 11/10/22 Rx hydroxyzine HCl 50 mg tablet 50 mg PO .qhs PRN insomnia #14 tabs 11/06/22 11/12/22 11/10/22 Rx trazodone 50 mg tablet 25 mg PO BEDTIME PRN insomnia #20 11/08/22 11/12/22 11/10/22 Rx tabs Allergies Allergy/AdvReac Type Severity Reaction Status Date / Time Penicillins Allergy ALGY-Anaphy Verified 11/12/22 21:47 laxis Sulfa (Sulfonamide Allergy Unknown Verified 11/12/22 21:47 Antibiotics) fluoxetine [From Prozac] AdvReac Mild stomach Verified 11/12/22 21:47 upset PFSH Acute PFSH: Medical History Bilateral hydronephrosis Bradycardia Chronic anemia CVA (cerebral vascular accident) Dependence on peritoneal dialysis Dilated aortic root ESRD (end stage renal disease) GERD (gastroesophageal reflux disease) History of stroke Hypertension Hypothyroidism Incomplete bladder emptying Neuropathy, lumbosacral (radicular) Polycystic kidney disease Right bundle branch block (RBBB) on electrocardiogram (ECG) Surgical History AV fistula History of colonoscopy 2019 at [facility] History of surgical procedure Peritoneal dialysis catheter placement by Dr. Kamara 2016 S/P hemodialysis catheter insertion (03/13/20) 23cm long exchanged right IJ Removed on 06/11/2020 Family History Mother Chronic kidney disease (CKD) Stroke Father Cancer lung Brother Hypertension Denies family history of Diabetes CAD (coronary artery disease) Clotting disorder Dementia Hyperlipidemia Psychiatric illness Anesthesia complication Bleeding disorder Lung disease Social History Smoking and tobacco status: current every day smoker cigarettes Packs smoked per day: 1 [ Other cigarette details: Half a pack per day for last 20-30 years] Alcohol intake: never Substance/Drug Use: current Substance/Drug use frequency: few times a week Lives independently: Yes Household members: family Housing: House Marital status: Number of children: 1 Current occupational status: disabled Current gender identity: Male Agree to transfusion: Yes Vitals/I&O/Wt Last Vital Signs Temp 97.9 F 11/12/22 21:44 Pulse 71 11/12/22 22:31 Resp 16 11/12/22 22:31 BP 158/92 11/12/22 22:31 Pulse Ox 97 11/12/22 22:31 O2 Del Method Nasal Cannula 11/12/22 22:31 Weight last 48 hrs Weight 81.193 kg Physical Exam Narrative: General: Alert oriented x3, patient seen laying in bed appearing comfortable. Did sit up when I see him. On 2 L nasal cannula at this time. Saturating 97%. No acute respiratory distress. HEENT: Normocephalic, atraumatic, EOMI, Cardio: Regular rate rhythm, normal S1-S2, Respiratory: Good bilateral air entry, no wheezes no rhonchi appreciated GI: Abdomen soft, nontender, moderately distended, tense ascites present., bowel sounds + Behavior: Appropriate and cooperative Extremities: 2+ pitting edema up to bilateral fine area. Data 11/12/22 21:44 11/12/22 22:16 A&P Assessment and plan (1) Acute hyperkalemia: (2) Fatigue: (3) Hypertension: (4) End stage renal disease on dialysis: (5) Generalized weakness: (6) Ascites: (7) Hypothyroidism: (8) Major depressive disorder: (9) Chronic anemia: (10) Dilated aortic root: Plan #Acute hyperkalemia in setting of end-stage renal disease dependent on dialysis Wednesday #Recurrent ascites on weekly paracentesis #History of stroke #Uncontrolled hypertension on multiple medications #History of bradycardia #Anemia of chronic disease #Generalized illness/fatigue #Major depressive disorder ? Potassium 6.8 in ER. Repeat potassium 6.8 again. Given insulin and dextrose. Consult nephrology. Discussed case with them. Patient will be dialyzed tonight. Further dialysis sessions defer to nephrology. Will recheck BMP 2 hours post dialysis. ? Patient did have paracentesis done on 11/10 and 3.5 L was removed. Will order ultrasound abdomen to assess for volume. Patient may need repeat paracentesis while hospital stay. Low suscpicion for SBP. Pt afebrile, no AMS, no abdominal tenderness or hypotension present. ? Continue all home medications for hypertension. Patient has been unable to afford clonidine patch in the past. -Place on cardiac telemetry ? Admit to ICU ? Med rec needs to be completed. Discussed with RN. Once completed we will order inpatient medications ? Appreciate nephrology recommendations -Patient will need to be set up with a supervisor [employer] at discharge as he no longer has one at this time. -Check iron level, TIBC. May require iron transfusion during hospital stay. Full code SCDs, hold off on pharmcological ppx due to Hb 8.2 Attestations Medical Necessity Statement*: > 2 midnight stay for management of hyperkalemia Coding Level of Care Code G0425 (30 min) TH Encounter Time (min): 45 Patient seen via Telehealth in the acute care setting (hospital or ED location) by agreement and consent of patient or patient senior sales representative. Telehealth technology used during the visit includes video and audio. This patient encounter is appropriate and reasonable under the circumstances given the patient?s particular presentation at this time. The patient has been advised of the potential risks and limitations of this mode of treatment (including but not limited to the absence of in-person examination at this time) and has agreed to be treated by an off-site physician for this visit. If deemed clinically necessary from this telehealth visit, or if condition or consent for telehealth visit changes, an in-person visit will be arranged. For this encounter, total time for the origination of telehealth care on this date is as shown. Diagnoses Acute hyperkalemia E87.5 Fatigue R53.83 Hypertension I10 End stage renal disease on dialysis N18.6; Z99.2 Generalized weakness R53.1 Ascites R18.8 Hypothyroidism E03.9 Major depressive disorder F32.9 Chronic anemia D64.9 Dilated aortic root I77.810
[2022-11-12 23:37] VITALS: PULSE 69
--- NOTE | 2022-11-12 23:53 | PM.CONSULT ---
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 HD MWF,, recurrent ascites, s/p paracentesis 11/10/22 Review of Systems General: Reports: ROS unobtainable due to mental status Medications/Allergies Home Medications Medication Instructions Recorded Confirmed Last Taken Type allopurinol 100 mg tablet 100 mg PO DAILY 11/27/19 11/12/22 11/10/22 History pantoprazole 40 mg tablet,delayed 40 mg PO DAILY 02/07/20 11/12/22 11/10/22 History release amlodipine 5 mg tablet 10 mg PO DAILY #30 tabs 03/21/21 11/12/22 11/10/22 Rx lisinopril 20 mg tablet 20 mg PO DAILY 07/08/21 11/12/22 11/10/22 History hydralazine 50 mg tablet 100 mg PO TID 04/14/22 11/12/22 11/10/22 History minoxidil 2.5 mg tablet 5 mg PO BID 04/14/22 11/12/22 11/10/22 History nifedipine 90 mg tablet,extended 90 mg PO DAILY 04/14/22 11/12/22 11/10/22 History release 24 hr isosorbide mononitrate 60 mg 60 mg PO DAILY 05/07/22 11/12/22 11/10/22 History tablet,extended release 24 hr simvastatin 40 mg tablet 40 mg PO DAILY 05/07/22 11/12/22 11/10/22 History cinacalcet 30 mg tablet 30 mg PO DAILY 05/12/22 11/12/22 11/10/22 History alfuzosin 10 mg tablet,extended 10 mg PO DAILY 06/18/22 11/12/22 11/10/22 History release 24 hr cholecalciferol (vitamin D3) 125 125 mcg PO DAILY 06/18/22 11/12/22 11/10/22 History mcg (5,000 unit) capsule ferric citrate 210 mg iron tablet 2 tab PO TID 06/22/22 11/12/22 11/10/22 History (Auryxia) lanthanum 1,000 mg oral powder 200 mg PO TID 06/22/22 11/12/22 11/10/22 History packet (Fosrenol) vit B,C-folic ac 800 mcg-zinc 12.5 1 tab PO DAILY 06/22/22 11/12/22 11/10/22 History mg-selen-D3 2,000 unit-vit E tablet (RenaPlex-D) ondansetron HCl 4 mg tablet 4 mg PO Q8H #10 tabs 09/14/22 11/12/22 11/10/22 Rx sertraline 50 mg tablet 50 mg PO DAILY #90 tabs 09/23/22 11/12/22 11/10/22 Rx sucralfate 1 gram tablet 1 g PO Q6H PRN Acid Reflux 10/06/22 11/12/22 11/10/22 History clonidine HCl 0.1 mg tablet 0.1 mg PO TID #90 tabs 10/15/22 11/12/22 11/10/22 Rx hydroxyzine HCl 25 mg tablet 25 mg PO QID PRN itching #120 tabs 10/15/22 11/12/22 11/10/22 Rx levothyroxine 75 mcg tablet 75 mcg PO DAILY #60 tabs 10/15/22 11/12/22 11/10/22 Rx hydroxyzine HCl 50 mg tablet 50 mg PO .qhs PRN insomnia #14 tabs 11/06/22 11/12/22 11/10/22 Rx trazodone 50 mg tablet 25 mg PO BEDTIME PRN insomnia #20 11/08/22 11/12/22 11/10/22 Rx tabs Allergies Allergy/AdvReac Type Severity Reaction Status Date / Time Penicillins Allergy ALGY-Anaphy Verified 11/12/22 21:47 laxis Sulfa (Sulfonamide Allergy Unknown Verified 11/12/22 21:47 Antibiotics) fluoxetine [From Prozac] AdvReac Mild stomach Verified 11/12/22 21:47 upset reviewed PFSH Acute PFSH: Medical History Bilateral hydronephrosis Bradycardia Chronic anemia CVA (cerebral vascular accident) Dependence on peritoneal dialysis Dilated aortic root ESRD (end stage renal disease) GERD (gastroesophageal reflux disease) History of stroke Hypertension Hypothyroidism Incomplete bladder emptying Neuropathy, lumbosacral (radicular) Polycystic kidney disease Right bundle branch block (RBBB) on electrocardiogram (ECG) Surgical History AV fistula History of colonoscopy 2019 at [facility] History of surgical procedure Peritoneal dialysis catheter placement by Dr. Kamara 2015 S/P hemodialysis catheter insertion (03/13/20) 23cm long exchanged right IJ Removed on 06/11/2020 Family History Mother Chronic kidney disease (CKD) Stroke Father Cancer lung Brother Hypertension Denies family history of Diabetes CAD (coronary artery disease) Clotting disorder Dementia Hyperlipidemia Psychiatric illness Anesthesia complication Bleeding disorder Lung disease Social History Smoking and tobacco status: current every day smoker cigarettes Packs smoked per day: 1 [ Other cigarette details: Half a pack per day for last 20-30 years] Alcohol intake: never Substance/Drug Use: current Substance/Drug use frequency: few times a week Lives independently: Yes Household members: family Housing: House Marital status: Number of children: 1 Current occupational status: disabled Current gender identity: Male Agree to transfusion: Yes Vitals/I&O/Wt Last Vital Signs Temp 97.9 F 11/12/22 21:44 Pulse 70 11/12/22 23:00 Resp 16 11/12/22 23:00 BP 171/97 11/12/22 23:00 Pulse Ox 95 11/12/22 23:00 O2 Del Method Nasal Cannula 11/12/22 23:00 Weight last 48 hrs Weight 81.193 kg Physical Exam Const: OTHER: lethargic GI: OTHER: distended, soft per RN Extremity: NARRATIVE EXTREMITY EXAM: trace LE edema LUE forearm AvF + thrill per RN Data 11/12/22 21:44 11/12/22 22:16 Other Labs: albumin 3.6, Ca 9.8 Other data: seen via telemedicine with assistance of RN at bedside A&P Assessment and plan (1) Acute hyperkalemia: Plan 1. ESRD, HD MWF 2. Hyperkalemia 3. Volume overload 4. Hypertension 5. Anemia Plan: HD tonight, 2K, 4L UF as BP tolerates. Cautiously continue outpatient antihypertensives, due to questionable compliance No BPs, IVs, blood draws LUE Consult Attestations Medical Necessity Statement: see above Time Spent in Patient Care: 16 - 35 minutes Coding Level of Care Code Acute Code for Chg Fwd Diagnoses Acute hyperkalemia E87.5
--- NOTE | 2022-11-12 23:56 | XRR_ITS ---
PROCEDURE INFORMATION: Exam: XR Chest Exam date and time: 11/13/2022 12:03 AM Age: 57 years old Clinical indication: Other: HTN TECHNIQUE: Imaging protocol: Radiologic exam of the chest. Views: 1 view. COMPARISON: CR (CHEST, ) 10/11/2022 8:29 AM FINDINGS: Lungs: See Heart/Mediastinum finding. Pleural spaces: Unremarkable. No pleural effusion. No pneumothorax. Heart/Mediastinum: Cardiomegaly, mild pulmonary vascular congestion and interstitial edema. Bones/joints: Unremarkable. XR/XR chest 1V portable [id number] IMPRESSION: Cardiomegaly, mild pulmonary vascular congestion and interstitial edema.
--- NOTE | 2022-11-12 23:56 | ECG_ITS ---
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 Measurements Intervals [place] Rate: 88 P: 15 SC: 134 QRS: -35 QRSD: 102 T: 60 QT: 380 QTc: 460 Interpretive Statements SINUS RHYTHM LEFT AXIS DEVIATION [QRS AXIS < -30] VOLTAGE CRITERIA FOR LVH [MEETS CRITERIA IN ONE OF: R(aVL), S(V1), R(V5), R(V5/V6)+S(V1)] Compared to ECG 11/12/2022 22:18:48 No significant changes Electronically Signed On 11-13-2022 8:43:06 CDT by Saurabh Fitzpatrick M.D. [id number]
[2022-11-13] VITALS (82 sets, daily range): BP systolic 97–194; BP diastolic 49–134; PULSE 10–108; RESP 13–31; TEMP 36–36.7; O2SAT 81–100
[2022-11-13] MEDS: calcium gluconate 0.1 gm/mL 10% SDV 10mL 1 GM IVP (00:09)
--- NOTE | 2022-11-13 00:20 | PC.NURSE ---
Pt put call light on, c/o feeling sweaty, pt noted to be diaphoretic. Dr Fontanez informed, FSBS at bedside 41, order for IV glucose obtained and given, pt also given orange juice to drink. Repeat blood sugar 105.
[2022-11-13 00:23] LABS: Glucose Point of Care 41 mg/dL (70-110)
[2022-11-13 00:24] LABS: Glucose Point of Care 105 mg/dL (70-110)
--- NOTE | 2022-11-13 00:28 | US_ITS ---
WS: [id number] Abdominal ultrasound, limited. History: Evaluate for ascites. Comparison: None. All 4 quadrants are imaged by ultrasound to evaluate for ascites. There is only a very small amount o f ascites in the LEFT lower quadrant. Insufficient for paracentesis. US/US abdomen limited [id number] IMPRESSION: No significant ascites.
[2022-11-13] MEDS: albuterol 2.5 mg/3 mL Neb 5 MG INHALATION (01:07)
[2022-11-13 01:25] LABS: Glucose Point of Care 67 mg/dL (70-110)
--- NOTE | 2022-11-13 01:44 | ECG_ITS ---
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 Measurements Intervals [place] Rate: 70 P: 33 SD: 152 QRS: -36 QRSD: 112 T: 11 QT: 465 QTc: 503 Interpretive Statements SINUS RHYTHM LEFT AXIS DEVIATION [QRS AXIS < -30] POSSIBLE LEFT VENTRICULAR HYPERTROPHY [VOLTAGE CRITERIA PLUS LAE OR QRS WIDENING] PROLONGED QT INTERVAL Compared to ECG 11/13/2022 00:02:34 Prolonged QT interval now present Electronically Signed On 11-13-2022 8:42:59 CDT by Saurabh Fitzpatrick M.D. [id number]
[2022-11-13 02:32] LABS: Basophils % 0.5 %; Eosinophils # 0.2 10^3/uL (0.0-0.8); Hematocrit 28.7 % (42.0-52.0); Hemoglobin 8.7 g/dL (11.7-16.6); Lymphocytes # 1.2 10^3/uL (0.8-4.8); Lymphocytes % 18.4 %; Mean Corpuscular HGB Conc 30.3 g/dL (30.0-36.0); Mean Corpuscular Hemoglobin 30.5 pg (28.0-34.0); Mean Corpuscular Volume 100.7 fl (80-94); Mean Platelet Volume 9.7 fL (7.4-10.4); Monocytes # 0.6 10^3/uL (0.2-0.9); Monocytes % 8.9 %; Neutrophils % 68.6 %; Nucleated Red Blood Cells % 0 %; Platelet Count 211 10^3/cmm (130-400); Red Blood Count 2.85 10^6/uL (4.1-5.3); Red Cell Distribution Width 14.3 % (12.1-15.1); White Blood Count 6.4 10^3/uL (4.0-10.0)
[2022-11-13 03:00] LABS: Glucose Point of Care 107 mg/dL (70-110)
[2022-11-13 03:01] LABS: Anion Gap 16.9 (5-19); Blood Urea Nitrogen 22 mg/dL (6-20); Calcium 9.5 mg/dL (8.5-10.5); Carbon Dioxide 30 mmol/L (22-29); Chloride 97 mmol/L (98-107); Ferritin 829 ng/mL (30-400); Glomerular Filtration Rate 10.5 mL/min (90-130); Glucose 196 mg/dL (65-115); Iron 135 ug/dL (59-158); Magnesium 1.9 mg/dL (1.7-2.3); Osmolality Calculated 293 mOsm/kg (285-295); Sodium 137 mmol/L (136-145)
[2022-11-13 03:20] LABS: Percent Saturation 108.8 % (20-50); Total Iron Binding Capacity 124 mcg/dl; Unsaturated Iron Binding -11 ug/dL (112-347)
[2022-11-13 03:23] LABS: Phosphorus 10.1 mg/dL (2.5-4.5); Potassium 6.9 mmol/L (3.5-5.1)
[2022-11-13 03:36] LABS: Hepatitis C Virus Antibody Non-Reactive (Nonreactive)
[2022-11-13 03:37] LABS: Hepatitis B Surface Antigen Non-Reactive (Nonreactive)
[2022-11-13 04:30] LABS: Glucose Point of Care 100 mg/dL (70-110)
[2022-11-13] MEDS: heparin, porcine 1,000 unit/mL INJ 10 mL 1000 UNIT IV (05:26)
[2022-11-13] MEDS: amlodipine 5 mg Tablet 10 MG PO (08:12)
[2022-11-13] MEDS: atorvastatin 40 mg Tablet PO (08:12)
[2022-11-13] MEDS: levothyroxine 75 mcg Tablet PO (08:12)
[2022-11-13] MEDS: sertraline 50 mg Tablet PO (08:12)
[2022-11-13] MEDS: alfuzosin 10 mg ER Tablet PO (08:12)
[2022-11-13] MEDS: lisinopril 20 mg Tablet PO (08:12)
[2022-11-13] MEDS: cholecalciferol (vitamin D3) 5,000 unit Tablet 5000 UNIT PO (08:13)
[2022-11-13] MEDS: hyDRALAzine 50 mg Tablet 100 MG PO ×3 (08:13→20:45)
[2022-11-13] MEDS: pantoprazole DR 40 mg Tablet PO (08:13)
[2022-11-13] MEDS: minoxidil 10 mg Tablet 5 MG PO ×2 (08:13→17:11)
--- NOTE | 2022-11-13 10:24 | PM.PN ---
Subjective Subjective: Patient was seen and examined this morning, denied any shortness of breath, chest pain, abdominal pain nausea vomiting, was dialyzed this morning, Medications: Medication Review Details: Generic Name Dose Route Start Last Admin Trade Name Starr PRN Reason Stop Dose Admin Alfuzosin HCl 10 mg 11/13/22 09:00 11/13/22 08:12 Alfuzosin 10 Mg Er Tablet PO 10 mg DAILY MINNA Administration Amlodipine Besylat e 10 mg 11/13/22 09:00 11/13/22 08:12 Amlodipine 5 Mg Tablet PO 10 mg DAILY MINNA Administration Atorvastatin Calci um 40 mg 11/13/22 09:00 11/13/22 08:12 Atorvastatin 40 Mg Tablet PO 40 mg DAILY MINNA Administration Hydralazine HCl 100 mg 11/13/22 09:00 11/13/22 08:13 Hydralazine 50 M g Tablet PO 100 mg TID MINNA Administration Levothyroxine Sodi um 75 mcg 11/13/22 09:00 11/13/22 08:12 Levothyroxine 75 Mcg Tablet PO 75 mcg DAILY MINNA Administration Lisinopril 20 mg 11/13/22 09:00 11/13/22 08:12 Lisinopril 20 Mg Tablet PO 20 mg DAILY MINNA Administration Minoxidil 5 mg 11/13/22 09:00 11/13/22 08:13 Minoxidil 10 Mg Tablet PO 5 mg BID MINNA Administration Non-Formulary Medi cation 30 mg 11/13/22 09:00 11/13/22 07:44 Cinacalcet PO Not Given DAILY MINNA Pantoprazole Sodiu m 40 mg 11/13/22 09:00 11/13/22 08:[address] 40 Mg Tablet PO 40 mg DAILY MINNA Administration Sertraline HCl 50 mg 11/13/22 09:00 11/13/22 08:12 Sertraline 50 Mg Tablet PO 50 mg DAILY MINNA Administration Vitamin D 5,000 unit 11/13/22 09:00 11/13/22 08:13 Cholecalciferol (Vitamin D3) 5,000 Unit Tablet PO 5,000 unit DAILY MINNA Administration Vitals/I&O/Wt Last Vital Signs Temp 97.7 F 11/13/22 06:00 Pulse 75 11/13/22 10:00 Resp 21 H 11/13/22 10:00 BP 138/65 11/13/22 10:00 Pulse Ox 94 11/13/22 10:00 O2 Del Method Nasal Cannula 11/13/22 01:12 O2 Flow Rate 2 11/13/22 01:12 11/12/22 11/13/22 11/13/22 22:59 06:59 14:59 Intake Total 150 / 150 360 / 360 Balance 150 / 150 360 / 360 Weight last 48 hrs Weight 81.193 kg Physical Exam HENMT: COMMON NORMALS: normocephalic and atraumatic HEAD & SCALP: normocephalic and atraumatic Resp: COMMON NORMALS: normal respiratory effort, No retractions, No use of accessory muscles and clear to auscultation bilaterally EFFORT & INSPECTION: Yes symmetric chest movement AUSCULTATION: clear to auscultation bilaterally Cardio: COMMON NORMALS: regular rate, regular rhythm, S1 normal heart sound present, S2 normal heart sound present, No gallops present (Cardio), No murmurs present (Cardio), No rub (Cardio) and Peripheral pulses 2+ throughout RATE: regular rate RHYTHM: regular rhythm HEART SOUNDS: S1 normal heart sound present and S2 normal heart sound present PERIPHERAL PULSES: Peripheral pulses 2+ throughout GI: COMMON NORMALS: Soft to palpation and non-tender AUSCULTATION: Yes normoactive bowel sounds PALPATION: Yes Soft to palpation RECTAL EXAM: Yes deferred OTHER: Distended Abdomen with fluid thrills. Extremity: COMMON NORMALS: no clubbing, cyanosis or edema and no pedal edema Data 11/13/22 14:00 11/13/22 14:00 A&P Assessment and plan (1) Acute hyperkalemia: (2) Fatigue: (3) Hypertension: (4) End stage renal disease on dialysis: (5) Generalized weakness: (6) Ascites: (7) Hypothyroidism: (8) Major depressive disorder: (9) Chronic anemia: (10) Dilated aortic root: Plan 57-year-old male with past medical history of, hypertension end-stage renal disease dialysis dependent Wednesday, CVA, recurrent ascites on weekly scheduled paracentesis, anemia of inflammatory disease, major depressive disorder, was brought in with chief complaint of overall not feeling very well, Further lab work in the ER done revealed acute hyperkalemia. Currently patient was admitted for the management of: Assessment: Hyperkalemia: Patient received hyperkalemia cocktail in the ER Renal was consulted overnight patient was dialyzed earlier this morning Repeat serum potassium is 5.7 Continue telemetry monitoring Patient EKG has been reviewed End-stage renal disease dialysis dependent: Nephrology on board patient got dialysis earlier this morning today History of recurrent ascites: Continue with weekly paracentesis Currently has no abdominal pain tenderness. History of hypertension: Blood pressure is decently controlled, will resume home antihypertensive medications. CODE STATUS: Full code DVT prophylaxis on subcu heparin Attestations Medical Necessity Statement*: Patient needs to be in hospital for management of hyperkalemia. Coding Level of Care Code Acute Code for Chg Fwd Diagnoses Acute hyperkalemia E87.5 Fatigue R53.83 Hypertension I10 End stage renal disease on dialysis N18.6; Z99.2 Generalized weakness R53.1 Ascites R18.8 Hypothyroidism E03.9 Major depressive disorder F32.9 Chronic anemia D64.9 Dilated aortic root I77.810
[2022-11-13 14:08] LABS: Basophils % 0.4 %; Eosinophils # 0.1 10^3/uL (0.0-0.8); Eosinophils % 1.3 %; Hematocrit 25.2 % (42.0-52.0); Lymphocytes # 1.1 10^3/uL (0.8-4.8); Mean Corpuscular HGB Conc 31.7 g/dL (30.0-36.0); Mean Corpuscular Hemoglobin 30.8 pg (28.0-34.0); Mean Corpuscular Volume 96.9 fl (80-94); Mean Platelet Volume 9.4 fL (7.4-10.4); Monocytes # 0.6 10^3/uL (0.2-0.9); Monocytes % 8.2 %; Neutrophils # 5.39 10^3/uL (1.8-7.7); Neutrophils % 74.8 %; Nucleated Red Blood Cells % 0 %; Platelet Count 220 10^3/cmm (130-400); Red Cell Distribution Width 14.1 % (12.1-15.1); White Blood Count 7.2 10^3/uL (4.0-10.0)
[2022-11-13 14:26] LABS: Anion Gap 13.7 (5-19); Blood Urea Nitrogen 11 mg/dL (6-20); Calcium 9.7 mg/dL (8.5-10.5); Carbon Dioxide 31 mmol/L (22-29); Chloride 99 mmol/L (98-107); Glomerular Filtration Rate 20.1 mL/min (90-130); Glucose 82 mg/dL (65-115); Osmolality Calculated 284 mOsm/kg (285-295); Potassium 5.7 mmol/L (3.5-5.1); Sodium 138 mmol/L (136-145)
[2022-11-14] VITALS (21 sets, daily range): BP systolic 96–156; BP diastolic 38–84; PULSE 80–109; RESP 3–26; TEMP 37; O2SAT 74–100
[2022-11-14 04:45] LABS: Basophils % 0.3 %; Eosinophils # 0.1 10^3/uL (0.0-0.8); Eosinophils % 1.2 %; Hematocrit 25.3 % (42.0-52.0); Lymphocytes % 15.2 %; Mean Corpuscular HGB Conc 31.6 g/dL (30.0-36.0); Mean Corpuscular Hemoglobin 30.8 pg (28.0-34.0); Mean Corpuscular Volume 97.3 fl (80-94); Monocytes # 0.6 10^3/uL (0.2-0.9); Monocytes % 8.8 %; Neutrophils # 4.89 10^3/uL (1.8-7.7); Neutrophils % 74.2 %; Nucleated Red Blood Cells % 0 %; Platelet Count 263 10^3/cmm (130-400); Red Cell Distribution Width 14.4 % (12.1-15.1); White Blood Count 6.6 10^3/uL (4.0-10.0)
[2022-11-14 05:10] LABS: Anion Gap 14.2 (5-19); Blood Urea Nitrogen 14 mg/dL (6-20); Carbon Dioxide 30 mmol/L (22-29); Chloride 98 mmol/L (98-107); Glomerular Filtration Rate 14.3 mL/min (90-130); Glucose 83 mg/dL (65-115); Osmolality Calculated 282 mOsm/kg (285-295); Potassium 6.2 mmol/L (3.5-5.1); Sodium 136 mmol/L (136-145)
--- NOTE | 2022-11-14 06:51 | PM.PN ---
Subjective Subjective: no complaints Vitals/I&O/Wt Last Vital Signs Temp 98.0 F 11/13/22 20:00 Pulse 99 11/14/22 06:00 Resp 26 H 11/14/22 03:00 BP 119/66 11/14/22 06:00 Pulse Ox 96 11/14/22 06:00 O2 Del Method Room Air 11/13/22 20:14 O2 Flow Rate 1.5 11/13/22 10:40 11/13/22 11/13/22 11/14/22 14:59 22:59 06:59 Intake Total 600 / 600 860 / 1460 Output Total 4132 / 4132 Balance 600 / 600 -3272 / -2672 Weight last 48 hrs Weight 80 kg Weight 81.5 kg Weight 81.193 kg Physical Exam Const: COMMON NORMALS: no acute distress and alert GI: OTHER: distended, soft per RN Extremity: NARRATIVE EXTREMITY EXAM: trace LE edema LUE forearm AvF + thrill per RN Neuro: SENSORIUM/ORIENTATION: Yes alert Data 11/14/22 03:35 11/14/22 03:35 Other data: seen via telemedicine with assistance of RN at bedside A&P Assessment and plan (1) Acute hyperkalemia: Plan 1. ESRD, HD MWF 2. Hyperkalemia 3. Volume overload 4. Hypertension 5. Anemia Plan: HD today, 2K, 2.5L UF as BP tolerates. Cautiously continue outpatient antihypertensives, due to questionable compliance. Encouraged to start lokelma as prescribed as outpatient No BPs, IVs, blood draws LUE Attestations Medical Necessity Statement*: per primary service Time Spent in Patient Care: 16 - 35 minutes Coding Level of Care Code Acute Code for Chg Fwd Diagnoses Acute hyperkalemia E87.5
[2022-11-14] MEDS: atorvastatin 40 mg Tablet PO (08:12)
[2022-11-14] MEDS: hyDRALAzine 50 mg Tablet 100 MG PO (08:12)
[2022-11-14] MEDS: sertraline 50 mg Tablet PO (08:12)
[2022-11-14] MEDS: lisinopril 20 mg Tablet PO (08:12)
[2022-11-14] MEDS: amlodipine 5 mg Tablet 10 MG PO (08:12)
[2022-11-14] MEDS: minoxidil 10 mg Tablet 5 MG PO (08:12)
[2022-11-14] MEDS: alfuzosin 10 mg ER Tablet PO (08:12)
[2022-11-14] MEDS: levothyroxine 75 mcg Tablet PO (08:13)
[2022-11-14] MEDS: cholecalciferol (vitamin D3) 5,000 unit Tablet 5000 UNIT PO (08:13)
[2022-11-14] MEDS: pantoprazole DR 40 mg Tablet PO (08:13)
--- NOTE | 2022-11-14 10:40 | PM.DCS ---
Discharge Providers Date of Admission: 11/13/22 00:39 Date of Discharge: November 14, 2022 Attending Provider at Admission: Meera Medrano MD Attending Provider at Discharge: Christopher Garnica MD Primary Care Provider: Randolph Ortiz MD Diagnoses at Discharge Discharge Diagnosis (1) Acute hyperkalemia: Status: Acute Reason for Visit Reason for Visit: abd pain Hospital Course Hospital Course 57-year-old male with past medical history of, hypertension end-stage renal disease dialysis dependent Wednesday, CVA, recurrent ascites on weekly scheduled paracentesis, anemia of inflammatory disease, major depressive disorder, was brought in with chief complaint of overall not feeling very well, Further lab work in the ER done revealed acute hyperkalemia, patient was admitted for the management of acute hyperkalemia, initially received hyperkalemia, medical management later during the hospital stay undergone hemodialysis, with improvement in serum potassium, patient has been advised to continue with routine hemodialysis, as well as, he will continue with his routine, weekly paracentesis, for his history of hypertension, clonidine has been kept on hold for now, his other antihypertensive medications has been continued, will keep a log of his blood pressure, and follow-up with his primary care physician, at that point in time, further dose adjustment of antihypertensive medications can be made. He was discharged in stable condition to home. Physical Exam HENMT: COMMON NORMALS: normocephalic and atraumatic HEAD & SCALP: normocephalic and atraumatic Resp: COMMON NORMALS: clear to auscultation bilaterally EFFORT & INSPECTION: Yes symmetric chest movement AUSCULTATION: clear to auscultation bilaterally Cardio: COMMON NORMALS: regular rate, regular rhythm, S1 normal heart sound present, S2 normal heart sound present, No gallops present (Cardio), No murmurs present (Cardio), No rub (Cardio) and Peripheral pulses 2+ throughout RATE: regular rate RHYTHM: regular rhythm HEART SOUNDS: S1 normal heart sound present and S2 normal heart sound present PERIPHERAL PULSES: Peripheral pulses 2+ throughout GI: COMMON NORMALS: Soft to palpation and non-tender AUSCULTATION: Yes normoactive bowel sounds PALPATION: Yes Soft to palpation RECTAL EXAM: Yes deferred OTHER: Distended Abdomen with fluid thrills. Extremity: COMMON NORMALS: no clubbing, cyanosis or edema and no pedal edema Discharge Data Studies Completed and Pending Completed Studies During Hospitalization Category Date Time Status CXRP [XR chest 1V portable [id number]] Routine Exams 11/12/22 23:56 Completed US abdomen limited [id number] Routine Ultrasound 11/13/22 00:28 Completed Radiology Impressions Chest X-Ray 11/12/22 23:56 IMPRESSION: Cardiomegaly, mild pulmonary vascular congestion and interstitial edema. Abdomen Ultrasound 11/13/22 00:28 IMPRESSION: No significant ascites. Laboratory Results WBC 6.6 10^3/uL (4.0-10.0) 11/14/22 03:35 RBC 2.60 10^6/uL (4.1-5.3) L 11/14/22 03:35 Hgb 8.0 g/dL (11.7-16.6) L 11/14/22 03:35 Hct 25.3 % (42.0-52.0) L 11/14/22 03:35 MCV 97.3 fl (80-94) H 11/14/22 03:35 MCH 30.8 pg (28.0-34.0) 11/14/22 03:35 MCHC 31.6 g/dL (30.0-36.0) 11/14/22 03:35 RDW 14.4 % (12.1-15.1) 11/14/22 03:35 Plt Count 263 10^3/cmm (130-400) 11/14/22 03:35 MPV 10.0 fL (7.4-10.4) 11/14/22 03:35 Neut % (Auto) 74.2 % 11/14/22 03:35 Lymph % (Auto) 15.2 % 11/14/22 03:35 [place] % (Auto) 8.8 % 11/14/22 03:35 Eos % (Auto) 1.2 % 11/14/22 03:35 Baso % (Auto) 0.3 % 11/14/22 03:35 Neut # (Auto) 4.89 10^3/uL (1.8-7.7) 11/14/22 03:35 Lymph # (Auto) 1.0 10^3/uL (0.8-4.8) 11/14/22 03:35 [place] # (Auto) 0.6 10^3/uL (0.2-0.9) 11/14/22 03:35 Eos # (Auto) 0.1 10^3/uL (0.0-0.8) 11/14/22 03:35 Baso # (Auto) 0.0 10^3/uL (0.0-0.1) 11/14/22 03:35 Nucleated RBC % (auto) 0 % 11/14/22 03:35 Nucleated RBCs # 0.0 /100WBC 11/14/22 03:35 Sodium 136 mmol/L (136-145) 11/14/22 03:35 Potassium 6.2 mmol/L (3.5-5.1) H 11/14/22 03:35 Chloride 98 mmol/L (98-107) 11/14/22 03:35 Carbon Dioxide 30 mmol/L (22-29) H 11/14/22 03:35 Anion Gap 14.2 (5-19) 11/14/22 03:35 BUN 14 mg/dL (6-20) 11/14/22 03:35 Creatinine 4.3 mg/dL (0.7-1.2) H 11/14/22 03:35 GFR Calculation 14.3 mL/min (90-130) L 11/14/22 03:35 Glucose 83 mg/dL (65-115) 11/14/22 03:35 POC Glucose 100 mg/dL (70-110) 11/13/22 04:26 Calculated Osmolality 282 mOsm/kg (285-295) L 11/14/22 03:35 Calcium 10.0 mg/dL (8.5-10.5) 11/14/22 03:35 Phosphorus 10.1 mg/dL (2.5-4.5) H* 11/13/22 01:59 Magnesium 1.9 mg/dL (1.7-2.3) 11/13/22 01:59 Iron 135 ug/dL (59-158) 11/13/22 01:59 TIBC 124 mcg/dl 11/13/22 01:59 % Saturation 108.8 % (20-50) H 11/13/22 01:59 Unsat Iron Binding -11 ug/dL (112-347) L 11/13/22 01:59 Ferritin 829 ng/mL (30-400) H 11/13/22 01:59 Total Bilirubin 0.4 mg/dL (0.15-1.2) 11/12/22 21:44 AST 15 U/L (0-40) 11/12/22 21:44 ALT 10 U/L (0-41) 11/12/22 21:44 Alkaline Phosphatase 87 U/L (40-130) 11/12/22 21:44 Total Protein 5.7 g/dL (6.6-8.7) L 11/12/22 21:44 Albumin 3.6 g/dL (3.5-5.2) 11/12/22 21:44 Globulin 2.1 g/dL (1.3-4.6) 11/12/22 21:44 Lipase 41 U/L (13-60) 11/12/22 21:44 Hep Bs Antigen Non-reactive (Nonreactive) 11/13/22 01:59 Hepatitis C Antibody Non-reactive (Nonreactive) 11/13/22 01:59 Vitals Last Vital Signs Temp 98.0 F 11/13/22 20:00 Pulse 95 11/14/22 10:34 Resp 18 11/14/22 10:34 BP 131/67 11/14/22 10:00 Pulse Ox 96 11/14/22 10:34 O2 Del Method Room Air 11/14/22 10:34 O2 Flow Rate 1.5 11/13/22 10:40 Discharge Plan Discharge Patient Disposition: Home Condition: Stable Prescriptions: Continued isosorbide mononitrate 60 mg tablet extended release 24 hr 60 mg PO DAILY simvastatin 40 mg tablet 40 mg PO DAILY cholecalciferol (vitamin D3) 125 mcg (5,000 unit) capsule 125 mcg PO DAILY sertraline 50 mg tablet 50 mg PO DAILY Qty: 90 0RF hydroxyzine HCl 25 mg tablet 25 mg PO QID PRN (Reason: itching) Qty: 120 3RF Rx Instructions: itching levothyroxine 75 mcg tablet 75 mcg PO DAILY Qty: 60 0RF allopurinol 100 mg Tablet 100 mg PO DAILY lisinopril 20 mg tablet 20 mg PO DAILY cinacalcet 30 mg tablet 30 mg PO DAILY minoxidil 2.5 mg tablet 5 mg PO BID hydralazine 50 mg tablet 100 mg PO TID sucralfate 1 gram tablet 1 g PO Q6H PRN (Reason: Acid Reflux) hydroxyzine HCl 50 mg tablet 50 mg PO QPM PRN (Reason: Itching) carvedilol 25 mg tablet 25 mg PO DAILY Auryxia 210 mg iron tablet 2 tab PO TID RenaPlex-D 800 mcg-12.5 mg -2,000 unit tablet 1 tab PO DAILY trazodone 50 mg tablet 25 mg PO BEDTIME PRN (Reason: insomnia) Qty: 20 0RF Rx Instructions: one half to one tablets at bedtime as needed for insomnia Held clonidine HCl 0.2 mg tablet 0.2 mg PO BID Hold Instructions: Resume on 01/06/23. MONITOR YOUR B/P KEEP A LOG DISCUSS WITH PCP BEFORE STARTING Discontinued clonidine HCl 0.1 mg tablet 0.1 mg PO TID Qty: 90 1RF Discharge Orders: Discharge Order (Routine); Ordered 11/14/22 Ordered By: Christopher Garnica Referrals: Randolph Ortiz MD [Primary Care Provider] - 1 week Patient Instructions: Opioid Safety Discharge Attestations Time Spent in Discharge Care*: less than 30 min Quality Metrics Clinical Quality Measures [ No reported AMI, CVA or VTE this stay] Coding Level of Care Code Acute Code for Chg Fwd Diagnoses Acute hyperkalemia E87.5
[2022-11-14] MEDS: heparin, porcine 1,000 unit/mL INJ 10 mL 1000 UNIT IV ×2 (11:18→15:57)
--- NOTE | 2022-11-14 16:12 | PC.NURSE ---
Patient received discharge orders, explained discharge instructions to patient verbalized understanding. Removed all IVs. No new prescriptions. Patient exited facility via w/c to back exit with staff at 1613. All patient belongings sent with patient
--- NOTE | 2022-11-14 17:08 | PC.HD ---
Intradialytic hypotension precluded reaching fluid removal goal, Dr Bear silva.
== END 2022-11-14 16:13 | disposition home or self-care (01) ==
LOC: ER 22:58 → ICU 11-13 02:49
PROVIDERS: Internal Medicine; Admitting Provider Internal Medicine; Emergency Provider Emergency Medicine; PCP Family Medicine; Visit Provider Internal Medicine
DX: E87.5 Hyperkalemia (principal); I12.0 Hypertensive chronic kidney disease with stage 5 chronic kidney disease or end stage renal disease; F17.210 Nicotine dependence, cigarettes, uncomplicated; N18.6 End stage renal disease; Z99.2 Dependence on renal dialysis; Z86.73 Personal history of transient ischemic attack (TIA), and cerebral infarction without residual deficits; R18.8 Other ascites; D63.1 Anemia in chronic kidney disease; E03.9 Hypothyroidism, unspecified; K21.9 Gastro-esophageal reflux disease without esophagitis; F32.9 Major depressive disorder, single episode, unspecified
CPT/HCPCS: 36415; 36416; 49083; 71045; 76705; 80048; 80053; 82728; 82962; 83540; 83550; 83690; 83735; 84100; 84132; 85025; 86803; 87340; 90935; 93005; 94640; 94664; 96374; 99285; G0378; J0612; J1644; J1815; J2405; J7613; P9046; Q3014

== ENCOUNTER 2022-11-17 10:56 | Day surgery (SDC) | payer MEDICARE, MEDICAID, SELFPAY ==
[2022-11-16 11:05] VITALS: BMI 28.1
--- NOTE | 2022-11-17 11:12 | US_ITS ---
WS: [id number] ULTRASOUND ABDOMEN LIMITED CLINICAL INFORMATION: Ascites COMPARISON: None. FINDINGS: Ultrasound abdomen for ascites evaluation pre-paracentesis. Minimal abdominal ascites. Insufficient f luid for paracentesis. US/US abdomen lmt fluid [id number] IMPRESSION: Insufficient fluid for paracentesis.
[2022-11-17 11:13] VITALS: BP 162/89; PULSE 79; RESP 18; TEMP 36.3; O2SAT 95
== END 2022-11-17 11:45 | disposition home or self-care (01) ==
LOC: GILAB 10:56
PROVIDERS: PCP Family Medicine; Visit Provider Family Medicine
DX: R18.8 Other ascites (principal)
CPT/HCPCS: 76705

== ENCOUNTER 2022-11-19 21:49 | Emergency (ER) | payer MEDICARE, MEDICAID, SELFPAY ==
[2022-11-19 21:58] VITALS: BP 184/99; PULSE 80; RESP 16; TEMP 36.7; O2SAT 97
--- NOTE | 2022-11-19 21:59 | ECG_ITS ---
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 Measurements Intervals [place] Rate: 74 P: 14 ND: 142 QRS: -29 QRSD: 96 T: 38 QT: 402 QTc: 446 Interpretive Statements SINUS RHYTHM BORDERLINE LEFT AXIS DEVIATION [QRS AXIS < -20] VOLTAGE CRITERIA FOR LVH [MEETS CRITERIA IN ONE OF: R(aVL), S(V1), R(V5), R(V5/V6)+S(V1)] Compared to ECG 11/13/2022 01:50:36 Prolonged QT interval no longer present Electronically Signed On 11-20-2022 15:51:49 CDT by Saurabh Fitzpatrick M.D. [id number]
[2022-11-19 22:02] VITALS: BP 165/87; PULSE 76; RESP 16; O2SAT 95
--- NOTE | 2022-11-19 22:02 | XRR_ITS ---
PROCEDURE INFORMATION: Exam: XR Chest Exam date and time: 11/19/2022 10:16 PM Age: 57 years old Clinical indication: Pain; Chest pressure; Additional info: Cp TECHNIQUE: Imaging protocol: Radiologic exam of the chest. Views: 1 view. COMPARISON: CR (CHEST, ) 11/13/2022 12:03 AM FINDINGS: Lungs: Unremarkable. No consolidation. Pleural spaces: Unremarkable. No pleural effusion. No pneumothorax. Heart/Mediastinum: Mild cardiomegaly, negative for infiltrate. Bones/joints: Unremarkable. XR/XR chest 1V portable [id number] IMPRESSION: Mild cardiomegaly, negative for infiltrate.
--- NOTE | 2022-11-19 22:02 | W.ED.CHESTPA ---
HPI - Chest Pain General: Chief Complaint: Chest Pain Stated Complaint: high bp / chest pain Time Seen by Provider: 11/19/22 21:53 Source: patient Mode of arrival: ambulatory Limitations: no limitations History of Present Illness: 57-year-old male who is very well-known to the ER history of end-stage renal disease along with uncontrolled hypertension states tonight has been having some left-sided chest pain along with hypertension he did get dialysis tomorrow he denies any worsening improving factors. Associated symptoms: Deny abdominal pain, dyspnea, fever(s), nausea or vomiting Review of Systems Const: Denies: fever(s), chills, body aches or change in appetite Eyes: Denies: blurry vision or eye discomfort ENMT: Denies: throat pain or dental pain Card: Reports: chest pain Resp: Denies: dyspnea GI: Denies: abdominal pain, nausea, vomiting or diarrhea Musc: Denies: neck pain or back pain Skin/Breast: Denies: rash Neuro: Denies: headache(s) PFSH ED PFSH: Medical History Bilateral hydronephrosis Bradycardia Chronic anemia CVA (cerebral vascular accident) Dependence on peritoneal dialysis Dilated aortic root ESRD (end stage renal disease) GERD (gastroesophageal reflux disease) History of stroke Hypertension Hypothyroidism Incomplete bladder emptying Neuropathy, lumbosacral (radicular) Polycystic kidney disease Right bundle branch block (RBBB) on electrocardiogram (ECG) Surgical History AV fistula History of colonoscopy [address] [facility] History of surgical procedure Peritoneal dialysis catheter placement by Dr. Kamara 2015 S/P hemodialysis catheter insertion (03/13/20) 23cm long exchanged right IJ Removed on 06/11/2020 Family History Mother Chronic kidney disease (CKD) Stroke Father Cancer lung Brother Hypertension Denies family history of Diabetes CAD (coronary artery disease) Clotting disorder Dementia Hyperlipidemia Psychiatric illness Anesthesia complication Bleeding disorder Lung disease Social History Smoking and tobacco status: current every day smoker cigarettes Packs smoked per day: 1 [ Other cigarette details: Half a pack per day for last 20-30 years] Alcohol intake: never Substance/Drug Use: current Substance/Drug use frequency: few times a week Lives independently: Yes Household members: family Housing: House Marital status: Number of children: 1 Current occupational status: disabled Current gender identity: Male Agree to transfusion: Yes Physical Exam Const: COMMON NORMALS: no acute distress, patient oriented x3 and healthy appearing HENMT: COMMON NORMALS: normocephalic and atraumatic HEAD & SCALP: normocephalic and atraumatic Eye: COMMON NORMALS: Equal, round and reactive pupils present and EOMs intact bilaterally PUPIL: Yes Equal, round and reactive pupils present Neck/C-Spine: COMMON NORMALS: full ROM and supple Chest: COMMONS NORMALS: normal inspection of the chest and normal palpation of entire chest wall Resp: COMMON NORMALS: normal respiratory effort, No retractions, No use of accessory muscles and clear to auscultation bilaterally AUSCULTATION: clear to auscultation bilaterally Cardio: COMMON NORMALS: regular rate, regular rhythm and No murmurs present (Cardio) RATE: regular rate RHYTHM: regular rhythm GI: COMMON NORMALS: Normal to inspection, nondistended, normoactive bowel sounds present, Soft to palpation, non-tender and no masses PALPATION: Yes Soft to palpation Extremity: COMMON NORMALS: normal to inspection and full ROM Neuro: COMMON NORMALS: patient oriented x3, moves all extremities and no focal motor deficits Psych: COMMON NORMALS: mental status grossly normal, Normal thought process present and cooperative THOUGHT PROCESS: Normal thought process present Skin: COMMON NORMALS: no rashes or lesions noted and no wounds GENERAL SKIN EXAM: no rashes or lesions noted Course Vital Signs: Vital signs: Vital Signs Temperature 98.0 F 11/19/22 22:39 Pulse Rate 76 11/19/22 22:39 Respiratory Rate 16 11/19/22 22:39 Blood Pressure 150/73 11/19/22 22:39 Pulse Oximetry 95 11/19/22 22:39 Oxygen Delivery Me thod Room Air 11/19/22 21:58 MDM - Chest Pain Medical Decision Making Patient presents here with hypertension he also had some slight chest pain which is likely from his blood pressure disease been chest pain-free here is no signs of acute coronary syndrome EKG is normal he is well-appearing he receives dialysis in the morning he is to follow-up and return if worsening he understands agrees to plan. Medical Records I reviewed the patient's medical records. Lab Data I reviewed the patient's lab results. Radiology Impressions Chest X-Ray 11/19/22 22:02 IMPRESSION: Mild cardiomegaly, negative for infiltrate. EKG Data EKG 1: I personally reviewed and interpreted this EKG as follows: EKG interpretation date: 11/19/22 EKG interpretation time: 21:59 Interpretation: nsr hr [address] or t wave abnormalities qrs 96 qtc 429 Discharge Plan Discharge Patient Disposition: Home Clinical Impression: Hypertension Condition: Stable Prescriptions: No Action isosorbide mononitrate 60 mg tablet extended release 24 hr 60 mg PO DAILY simvastatin 40 mg tablet 40 mg PO DAILY cholecalciferol (vitamin D3) 125 mcg (5,000 unit) capsule 125 mcg PO DAILY sertraline 50 mg tablet 50 mg PO DAILY Qty: 90 0RF hydroxyzine HCl 25 mg tablet 25 mg PO QID PRN (Reason: itching) Qty: 120 3RF Rx Instructions: itching levothyroxine 75 mcg tablet 75 mcg PO DAILY Qty: 60 0RF allopurinol 100 mg Tablet 100 mg PO DAILY lisinopril 20 mg tablet 20 mg PO DAILY cinacalcet 30 mg tablet 30 mg PO DAILY minoxidil 2.5 mg tablet 5 mg PO BID hydralazine 50 mg tablet 100 mg PO TID sucralfate 1 gram tablet 1 g PO Q6H PRN (Reason: Acid Reflux) clonidine HCl 0.2 mg tablet 0.2 mg PO BID Hold Instructions: Resume on 01/06/23. MONITOR YOUR B/P KEEP A LOG DISCUSS WITH PCP BEFORE STARTING hydroxyzine HCl 50 mg tablet 50 mg PO QPM PRN (Reason: Itching) carvedilol 25 mg tablet 25 mg PO DAILY Auryxia 210 mg iron tablet 2 tab PO TID RenaPlex-D 800 mcg-12.5 mg -2,000 unit tablet 1 tab PO DAILY trazodone 50 mg tablet 25 mg PO BEDTIME PRN (Reason: insomnia) Qty: 20 0RF Rx Instructions: one half to one tablets at bedtime as needed for insomnia Discharge Orders: Discharge ED (Routine); Ordered 11/19/22 Ordered By: Ghaad Fontanez Referrals: Randolph Ortiz MD [Primary Care Provider] - 1-3 days Discharge Diet: Advance as tolerated Discharge Activity: Resume usual activity Patient Instructions: Hypertension (ED) Coding Level of Care Code ED Sales Account Director for Eric Sandhu
[2022-11-19 22:39] VITALS: BP 150/73; PULSE 76; RESP 16; TEMP 36.7; O2SAT 95
== END 2022-11-19 22:40 | disposition home or self-care (01) ==
PROVIDERS: Emergency Provider Emergency Medicine; PCP Family Medicine
DX: I12.0 Hypertensive chronic kidney disease with stage 5 chronic kidney disease or end stage renal disease (principal); N18.6 End stage renal disease; F17.210 Nicotine dependence, cigarettes, uncomplicated; Z86.73 Personal history of transient ischemic attack (TIA), and cerebral infarction without residual deficits
CPT/HCPCS: 71045; 93005; 99285

== ENCOUNTER 2022-11-26 11:27 | Day surgery (SDC) | payer MEDICARE, MEDICAID, SELFPAY ==
[2022-11-26 11:44] VITALS: BP 162/85; PULSE 85; RESP 17; TEMP 36.8; O2SAT 96
--- NOTE | 2022-11-26 11:45 | US_ITS ---
WS: [id number] ULTRASOUND-GUIDED 5400 PARACENTESIS Procedure, risks, and complications have been explained to the patient. Consent is obtained. Utilizing aseptic technique and 1% buffered lidocaine, a small dermatome was made through which a 5 F rench Yueh catheter was inserted. Approximately 5400 ml of clear peritoneal fluid was obtained witho ut difficulty. No complications encountered. US/[place] abd w [id number] IMPRESSION: Uncomplicated paracentesis yielding 5400 ml of peritoneal fluid.
[2022-11-26 11:46] VITALS: BMI 28.1
[2022-11-26] MEDS: albumin 75 G/300 ML BAG 300 G IV (12:50)
[2022-11-26 13:24] VITALS: BP 177/86; PULSE 90; RESP 17; O2SAT 94
== END 2022-11-26 13:38 | disposition home or self-care (01) ==
LOC: GILAB 11:27
PROVIDERS: Radiology Diagnostic Radiology; PCP Family Medicine; Visit Provider Internal Medicine Nephrology
PROC: 0W9G3ZZ Drainage of Peritoneal Cavity, Percutaneous Approach (ICD-10-PCS; principal; 2022-11-26 12:00)
DX: R18.8 Other ascites (principal)
CPT/HCPCS: 49083; P9046

== ENCOUNTER → 2022-12-01 11:52 | Day surgery (SDC) | payer MEDICARE, MEDICAID, SELFPAY ==
[2022-12-01 12:00] VITALS: BP 151/76; PULSE 531; RESP 8; TEMP 36.1; O2SAT 99; BMI 28.1
--- NOTE | 2022-12-01 12:06 | US_ITS ---
WS: [id number] ULTRASOUND-GUIDED PARACENTESIS CLINICAL INFORMATION: ascites COMPARISON: None. Procedure Informed consent: The risks, benefits, and alternatives of the procedure were discussed with the lisa ent. Verbal and written consent was obtained. Timeout: A timeout was performed to confirm the correct patient, procedure, and site. Preparation: A suitable skin site was identified. The patient was prepped and draped in usual sterile fashion. Lidocaine 1% was used for local anesthesia. Catheter: 4 Scottish One-step Yueh catheter. Side: RIGHT Lower quadrant. Fluid Volume: 3200 ml Color: Clear yellow DISPOSITION: Discarded safely. Complications: None. Patient disposition: Discharged from the department in stable condition. US/[place]acentesis abd w [id number] IMPRESSION: Uncomplicated ultrasound-guided paracentesis. Removal of 3200 cc
[2022-12-01] MEDS: albumin 75 G/300 ML BAG 300 G IV (12:50)
== END ==
PROVIDERS: Radiology Neuroradiology; PCP Family Medicine; Visit Provider Internal Medicine Nephrology
PROC: (CPT 49082; principal; 2022-12-01 12:00)
DX: R18.8 Other ascites (principal)
CPT/HCPCS: 49083; 96365; P9046

== ENCOUNTER 2022-12-06 06:22 | Emergency (ER) | payer MEDICARE, MEDICAID, SELFPAY ==
[2022-12-06 06:34] VITALS: BP 170/103; PULSE 61; RESP 18; TEMP 36.6; O2SAT 99; BMI 28.1
[2022-12-06 06:36] VITALS: BP 170/103; PULSE 66; RESP 18; O2SAT 97
[2022-12-06 07:06] VITALS: BP 156/86
[2022-12-06] MEDS: hyDRALAzine 20 mg/mL INJ 1 mL IM (07:08)
--- NOTE | 2022-12-06 07:15 | ED_ITS ---
HPI - Recheck/Abnormal Lab/Rx General: Chief Complaint: Recheck/Abnormal Lab/Rx Stated Complaint: face numb weird Blood pressure readings Time Seen by Provider: 12/06/22 06:33 History of Present Illness: Patient presents to the ER with blood pressure being too high again. Patient st ates his mustache area feels numb. Patient states it is the same old same old that is happened multiple times before. Patient says he woke up took his blood pressure it was high took a clonidine retook his blood pressure and it was still high so he decided to come to the ER for further evaluation and treatment. Review of Systems General: Reports: 10 or more systems reviewed and unremarkable except in HPI and below PFSH ED PFSH: Medical History Acute hyperkalemia Ascites Bilateral hydronephrosis Bradycardia Chronic anemia CVA (cerebral vascular accident) Dependence on peritoneal dialysis Dilated aortic root End stage renal disease on dialysis ESRD (end stage renal disease) Fatigue Generalized weakness GERD (gastroesophageal reflux disease) History of stroke Hypertension Hypertension Hypothyroidism Hypothyroidism Incomplete bladder emptying Major depressive disorder Neuropathy, lumbosacral (radicular) Polycystic kidney disease Right bundle branch block (RBBB) on electrocardiogram (ECG) Surgical History AV fistula History of colonoscopy 2019 at [facility] History of surgical procedure Peritoneal dialysis catheter placement by Dr. Kamara 2016 S/P hemodialysis catheter insertion (03/13/20) 23cm long exchanged right IJ Removed on 06/11/2020 Family History Mother Chronic kidney disease (CKD) Stroke Father Cancer lung Brother Hypertension Denies family history of Diabetes CAD (coronary artery disease) Clotting disorder Dementia Hyperlipidemia Psychiatric illness Anesthesia complication Bleeding disorder Lung disease Social History Smoking and tobacco status: current every day smoker cigarettes Packs smoked per day: 1 [ Other cigarette details: Half a pack per day for last 20-30 years] Alcohol intake: never Substance/Drug Use: current Substance/Drug use frequency: few times a week Lives independently: Yes Household members: family Housing: House Marital status: Number of children: 1 Current occupational status: disabled Current gender identity: Male Agree to transfusion: Yes Physical Exam Narrative: EXAM NARRATIVE: Upon my arrival to the ER room patient appeared to do be sleeping comfortably in no distress. Const: COMMON NORMALS: no acute distress, average body habitus, patient oriented x3, no limitations, healthy appearing, alert and well nourished HENMT: COMMON NORMALS: normocephalic, atraumatic, hearing grossly normal bilaterally, external ears normal and moist oral mucous membranes HEAD & SCALP: normocephalic and atraumatic EXTERNAL EAR: Yes external ears normal Neck/C-Spine: COMMON NORMALS: full ROM, no lymphadenopathy, supple, no meningeal signs, no JVD and Thyroid normal THYROID: Thyroid normal Chest: COMMONS NORMALS: normal inspection of the chest and normal palpation of entire chest wall Resp: COMMON NORMALS: normal respiratory effort, No retractions, No use of accessory muscles and clear to auscultation bilaterally AUSCULTATION: clear to auscultation bilaterally Cardio: COMMON NORMALS: no JVD, regular rate, regular rhythm, S1 normal heart sound present, S2 normal heart sound present, No gallops present (Cardio), No clicks present (Cardio), No murmurs present (Cardio) and No rub (Cardio) RATE: regular rate RHYTHM: regular rhythm HEART SOUNDS: S1 normal heart sound present and S2 normal heart sound present GI: COMMON NORMALS: Normal to inspection, nondistended, normoactive bowel sounds present, Soft to palpation, non-tender, No hepatosplenomegaly present and no masses PALPATION: Yes Soft to palpation and Yes No hepatosplenomegaly present Neuro: COMMON NORMALS: patient oriented x3 SENSORIUM/ORIENTATION: Yes alert MENINGEAL SIGNS: Yes no meningeal signs Course Vital Signs: Vital signs: Vital Signs Temperature 98 F 12/06/22 06:34 Pulse Rate 66 12/06/22 06:36 Respiratory Rate 18 12/06/22 06:36 Blood Pressure 152/80 12/06/22 07:30 Pulse Oximetry 97 12/06/22 06:36 Oxygen Delivery Me thod Room Air 12/06/22 06:36 MDM - Recheck/Abnormal Lab/Rx Medical Decision Making Patient presents to the ER with complaints of hypertension and numbness in his left calf area. Patient says just a stable single again. Patient was given 20 mg of hydralazine IM as blood pressure come down nicely 152/80. Patient was sleeping soundly in the exam room. Patient will be discharged home patient should follow-up with his PCP in the next several days. Differential Diagnosis Unlikely encounter for medication refill, encounter for wound recheck, encounter for recheck of burn, encounter for removal of sutures or warfarin-induced coagulopathy Medical Records I reviewed the patient's medical records. Lab Data I reviewed the patient's lab results. Discharge Plan Discharge Patient Disposition: Home Clinical Impression: Hypertension Condition: Stable Prescriptions: No Action isosorbide mononitrate 60 mg tablet extended release 24 hr 60 mg PO DAILY simvastatin 40 mg tablet 40 mg PO DAILY cholecalciferol (vitamin D3) 125 mcg (5,000 unit) capsule 125 mcg PO DAILY sertraline 50 mg tablet 50 mg PO DAILY Qty: 90 0RF hydroxyzine HCl 25 mg tablet 25 mg PO QID PRN (Reason: itching) Qty: 120 3RF Rx Instructions: itching levothyroxine 75 mcg tablet 75 mcg PO DAILY Qty: 60 0RF allopurinol 100 mg Tablet 100 mg PO DAILY lisinopril 20 mg tablet 20 mg PO DAILY cinacalcet 30 mg tablet 30 mg PO DAILY minoxidil 2.5 mg tablet 5 mg PO BID hydralazine 50 mg tablet 100 mg PO TID sucralfate 1 gram tablet 1 g PO Q6H PRN (Reason: Acid Reflux) clonidine HCl 0.2 mg tablet 0.2 mg PO BID Hold Instructions: Resume on 01/06/23. MONITOR YOUR B/P KEEP A LOG DISCUSS WITH PCP BEFORE STARTING hydroxyzine HCl 50 mg tablet 50 mg PO QPM PRN (Reason: Itching) carvedilol 25 mg tablet 25 mg PO DAILY Auryxia 210 mg iron tablet 2 tab PO TID RenaPlex-D 800 mcg-12.5 mg -2,000 unit tablet 1 tab PO DAILY trazodone 50 mg tablet 25 mg PO BEDTIME PRN (Reason: insomnia) Qty: 20 0RF Rx Instructions: one half to one tablets at bedtime as needed for insomnia Discharge Orders: Discharge ED (Routine); Ordered 12/06/22 Ordered By: Albert Mcneill Referrals: Randolph Ortiz MD [Primary Care Provider] - 1 week Patient Instructions: Hypertension (ED) Activity Restrictions/Additional Instructions: Please continue taking all your medicine as prescribed. Please keep a blood pressure log. Please follow-up with your family practice doctor in the next 7 days or sooner as needed. Coding Level of Care Code ED Forensic Psychologist for Eric Sandhu
[2022-12-06 07:30] VITALS: BP 152/80
[2022-12-06 08:30] VITALS: BP 146/76
--- NOTE | 2022-12-06 08:38 | PC.NURSE ---
Patient does not have ride. Called medicaid for ride. Patient resting until transport arrives.
[2022-12-06 08:39] VITALS: BP 146/76; PULSE 80; RESP 18; TEMP 36.6; O2SAT 94
--- NOTE | 2022-12-06 09:39 | PC.NURSE ---
Patient refused discharge papers but did sign d/c states he no longer needs a ride.
== END 2022-12-06 09:39 | disposition home or self-care (01) ==
PROVIDERS: Emergency Provider Emergency Medicine; PCP Family Medicine
DX: I12.0 Hypertensive chronic kidney disease with stage 5 chronic kidney disease or end stage renal disease (principal); N18.6 End stage renal disease; Z99.2 Dependence on renal dialysis; F17.210 Nicotine dependence, cigarettes, uncomplicated; Z86.73 Personal history of transient ischemic attack (TIA), and cerebral infarction without residual deficits
CPT/HCPCS: 96372; 99284; J0360

== ENCOUNTER 2022-12-08 11:07 | Day surgery (SDC) | payer MEDICARE, MEDICAID, SELFPAY ==
[2022-12-08 11:14] VITALS: BP 182/84; PULSE 66; RESP 22; TEMP 36.9; O2SAT 93
--- NOTE | 2022-12-08 11:22 | US_ITS ---
WS: [id number] ULTRASOUND ABDOMEN LIMITED CLINICAL INFORMATION: Ascities COMPARISON: None. FINDINGS: No significant ascites visualized today.Dilated bowel loops. Insufficient fluid for paracentesis. US/US abdomen limited 54216 IMPRESSION: Insufficient fluid for paracentesis today
--- NOTE | 2022-12-08 11:49 | PC.NURSE ---
1140 US here. Not enough fluid for paracenteiss today.
--- NOTE | 2022-12-08 11:51 | PC.NURSE ---
1145 Charge nurse, Carmelina MORRISON, notified. Patient ambulatory and left without complications.
== END 2022-12-08 11:45 | disposition home or self-care (01) ==
LOC: GILAB 11:08
PROVIDERS: PCP Family Medicine; Visit Provider Internal Medicine Nephrology
PROC: (CPT 49082; principal; 2022-12-08 12:00)
DX: R18.8 Other ascites (principal); Z53.09 Procedure and treatment not carried out because of other contraindication
CPT/HCPCS: 76705

== ENCOUNTER 2022-12-12 22:49 | Emergency (ER) | payer MEDICARE, MEDICAID, SELFPAY ==
[2022-12-12 22:57] VITALS: BP 171/85; PULSE 71; RESP 18; TEMP 37.1; O2SAT 98; BMI 43.8
--- NOTE | 2022-12-12 23:21 | W.ED.RECABL ---
HPI - Recheck/Abnormal Lab/Rx General: Chief Complaint: Recheck/Abnormal Lab/Rx Stated Complaint: high bp Time Seen by Provider: 12/12/22 22:53 Source: patient Mode of arrival: ambulatory Limitations: no limitations History of Present Illness: 57-year-old male who is very well-known to the ED has a history end-stage renal disease on hypertension he states that tonight he just was not feeling well states he felt like his blood pressure is high and wanted to be checked out. Denies any fever denies any chest pain denies any headache states she just felt weak. He did receive dialysis yesterday as scheduled. Review of Systems Const: Reports: malaise; Denies: fever(s) or chills Eyes: Denies: blurry vision or eye discomfort ENMT: Denies: throat pain or dental pain Card: Denies: chest pain Resp: Denies: dyspnea GI: Denies: abdominal pain, nausea, vomiting or diarrhea : Denies: dysuria Musc: Denies: neck pain or back pain Skin/Breast: Denies: rash Neuro: Denies: headache(s) Psych: Denies: depression Lucas/Lymph: Denies: easy bruising All/Imm: Denies: urticaria PFSH ED PFSH: Medical History Acute hyperkalemia Ascites Bilateral hydronephrosis Bradycardia Chronic anemia CVA (cerebral vascular accident) Dependence on peritoneal dialysis Dilated aortic root End stage renal disease on dialysis ESRD (end stage renal disease) Fatigue Generalized weakness GERD (gastroesophageal reflux disease) History of stroke Hypertension Hypertension Hypothyroidism Hypothyroidism Incomplete bladder emptying Major depressive disorder Neuropathy, lumbosacral (radicular) Polycystic kidney disease Right bundle branch block (RBBB) on electrocardiogram (ECG) Surgical History AV fistula History of colonoscopy 2019 at [facility] History of surgical procedure Peritoneal dialysis catheter placement by Dr. Kamara 2015 S/P hemodialysis catheter insertion (03/13/20) 23cm long exchanged right IJ Removed on 06/11/2020 Family History Mother Chronic kidney disease (CKD) Stroke Father Cancer lung Brother Hypertension Denies family history of Diabetes CAD (coronary artery disease) Clotting disorder Dementia Hyperlipidemia Psychiatric illness Anesthesia complication Bleeding disorder Lung disease Social History Smoking and tobacco status: current every day smoker cigarettes Packs smoked per day: 1 [ Other cigarette details: Half a pack per day for last 20-30 years] Alcohol intake: never Substance/Drug Use: current Substance/Drug use frequency: few times a week Lives independently: Yes Household members: family Housing: House Marital status: Number of children: 1 Current occupational status: disabled Current gender identity: Male Agree to transfusion: Yes Physical Exam Const: COMMON NORMALS: no acute distress, patient oriented x3 and healthy appearing HENMT: COMMON NORMALS: normocephalic and atraumatic HEAD & SCALP: normocephalic and atraumatic Eye: COMMON NORMALS: conjunctivae normal CONJUNCTIVA: Yes conjunctivae normal Neck/C-Spine: COMMON NORMALS: full ROM and supple Chest: COMMONS NORMALS: normal inspection of the chest Resp: COMMON NORMALS: normal respiratory effort Cardio: COMMON NORMALS: regular rate and No murmurs present (Cardio) RATE: regular rate GI: INSPECTION: Yes normal to inspection Extremity: COMMON NORMALS: normal to inspection and full ROM Neuro: COMMON NORMALS: patient oriented x3, moves all extremities and no focal motor deficits Psych: COMMON NORMALS: mental status grossly normal, Normal thought process present and cooperative THOUGHT PROCESS: Normal thought process present Skin: COMMON NORMALS: no rashes or lesions noted and no wounds GENERAL SKIN EXAM: no rashes or lesions noted Course Vital Signs: Vital signs: Vital Signs Temperature 98.8 F 12/12/22 22:57 Pulse Rate 78 12/12/22 23:46 Respiratory Rate 16 12/12/22 23:46 Blood Pressure 172/109 12/12/22 23:46 Pulse Oximetry 98 12/12/22 23:46 MDM - Recheck/Abnormal Lab/Rx Medical Decision Making Patient presents here with hypertension he is well-appearing here he is stable for discharge she is to follow-up PCP and return if worsening. Medical Records I reviewed the patient's medical records. Lab Data I reviewed the patient's lab results. Discharge Plan Discharge Patient Disposition: Home Clinical Impression: Hypertension Condition: Stable Prescriptions: No Action isosorbide mononitrate 60 mg tablet extended release 24 hr 60 mg PO DAILY simvastatin 40 mg tablet 40 mg PO DAILY cholecalciferol (vitamin D3) 125 mcg (5,000 unit) capsule 125 mcg PO DAILY sertraline 50 mg tablet 50 mg PO DAILY Qty: 90 0RF hydroxyzine HCl 25 mg tablet 25 mg PO QID PRN (Reason: itching) Qty: 120 3RF Rx Instructions: itching levothyroxine 75 mcg tablet 75 mcg PO DAILY Qty: 60 0RF allopurinol 100 mg Tablet 100 mg PO DAILY lisinopril 20 mg tablet 20 mg PO DAILY cinacalcet 30 mg tablet 30 mg PO DAILY minoxidil 2.5 mg tablet 5 mg PO BID hydralazine 50 mg tablet 100 mg PO TID sucralfate 1 gram tablet 1 g PO Q6H PRN (Reason: Acid Reflux) clonidine HCl 0.2 mg tablet 0.2 mg PO BID Hold Instructions: Resume on 01/06/23. MONITOR YOUR B/P KEEP A LOG DISCUSS WITH PCP BEFORE STARTING hydroxyzine HCl 50 mg tablet 50 mg PO QPM PRN (Reason: Itching) carvedilol 25 mg tablet 25 mg PO DAILY Auryxia 210 mg iron tablet 2 tab PO TID RenaPlex-D 800 mcg-12.5 mg -2,000 unit tablet 1 tab PO DAILY trazodone 50 mg tablet 25 mg PO BEDTIME PRN (Reason: insomnia) Qty: 20 0RF Rx Instructions: one half to one tablets at bedtime as needed for insomnia Discharge Orders: Discharge ED (Routine); Ordered 12/12/22 Ordered By: Ghada Fontanez Referrals: Randolph Ortiz MD [Primary Care Provider] - 1-3 days Discharge Diet: Advance as tolerated Discharge Activity: Resume usual activity Patient Instructions: Hypertension (ED) Coding Level of Care Code ED Lif[employer] Representatives for Eric Sandhu
--- NOTE | 2022-12-12 23:22 | ECG_ITS ---
[facility] Test Date: 2022-12-12 Pat Name: Navneet Savage Department: Room: Gender: Male Traffic Law Attorney: : 1965 Requested By: Ghada Fontanez Order Number: [id number] Nate MD: Dora Mustafa M.D. Measurements Intervals [place] Rate: 70 P: 15 RI: 146 QRS: -42 QRSD: 100 T: 36 QT: 415 QTc: 448 Interpretive Statements SINUS RHYTHM LEFT AXIS DEVIATION [QRS AXIS < -30] VOLTAGE CRITERIA FOR LVH [MEETS CRITERIA IN ONE OF: R(aVL), S(V1), R(V5), R(V5/V6)+S(V1)] Compared to ECG 11/19/2022 21:59:55 No significant changes Electronically Signed On 12-13-2022 11:24:04 CDT by Dora Mustafa M.D. [id number]
[2022-12-12 23:25] VITALS: BP 197/99; PULSE 72; RESP 16; O2SAT 97
[2022-12-12] MEDS: hyDRALAzine 20 mg/mL INJ 1 mL 10 MG IM (23:28)
[2022-12-12 23:46] VITALS: BP 172/109; PULSE 78; RESP 16; O2SAT 98
== END 2022-12-12 23:49 | disposition home or self-care (01) ==
PROVIDERS: Emergency Provider Emergency Medicine; PCP Family Medicine
DX: I12.0 Hypertensive chronic kidney disease with stage 5 chronic kidney disease or end stage renal disease (principal); N18.6 End stage renal disease; Z99.2 Dependence on renal dialysis; Z86.73 Personal history of transient ischemic attack (TIA), and cerebral infarction without residual deficits; F17.210 Nicotine dependence, cigarettes, uncomplicated
CPT/HCPCS: 93005; 96372; 99284; J0360

== ENCOUNTER 2022-12-13 21:36 | Observation (INO) | payer MEDICARE, MEDICAID, SELFPAY ==
--- NOTE | 2022-12-13 21:39 | ECG_ITS ---
[facility] Test Date: 2022-12-13 Pat Name: Navneet Savage Department: Room: Gender: Male Ensemble Member: : 1965 Requested By: Ghada Fontanez Order Number: [id number] Sullivan MD: Dora Mustafa M.D. Measurements Intervals [place] Rate: 59 P: 18 GA: 175 QRS: -50 QRSD: 122 T: 42 QT: 460 QTc: 456 Interpretive Statements SINUS BRADYCARDIA LEFT ANTERIOR FASCICULAR BLOCK [QRS AXIS <= -45, QR IN I, RS IN II] MODERATE VOLTAGE CRITERIA FOR LVH, CONSIDER NORMAL VARIANT [MEETS CRITERIA IN ONE OF: R(aVL), S(V1), R(V5), R(V5/V6)+S(V1)] POSSIBLE SEPTAL MYOCARDIAL INFARCTION , OF INDETERMINATE AGE [30 ms Q WAVE IN V1/V2] Compared to ECG 12/12/2022 23:22:31 Left anterior fascicular block now present Myocardial infarct finding now present Sinus rhythm no longer present Left-axis deviation no longer present Electronically Signed On 12-14-2022 21:13:54 CDT by Dora Mustafa M.D. [id number]
[2022-12-13 21:53] VITALS: BP 181/76; PULSE 72; RESP 16; TEMP 36.8; O2SAT 95; BMI 28.1
[2022-12-13 21:57] LABS: Basophils # 0.1 10^3/uL (0.0-0.1); Basophils % 0.6 %; Eosinophils # 0.3 10^3/uL (0.0-0.8); Eosinophils % 2.9 %; Hematocrit 32.3 % (42.0-52.0); Hemoglobin 10.2 g/dL (11.7-16.6); Lymphocytes # 1.4 10^3/uL (0.8-4.8); Lymphocytes % 15.7 %; Mean Corpuscular HGB Conc 31.6 g/dL (30.0-36.0); Mean Corpuscular Hemoglobin 30.4 pg (28.0-34.0); Mean Corpuscular Volume 96.1 fl (80-94); Monocytes # 0.9 10^3/uL (0.2-0.9); Monocytes % 9.4 %; Neutrophils # 6.43 10^3/uL (1.8-7.7); Neutrophils % 71.1 %; Nucleated Red Blood Cells % 0 %; Platelet Count 286 10^3/cmm (130-400); Red Blood Count 3.36 10^6/uL (4.1-5.3); Red Cell Distribution Width 14.7 % (12.1-15.1)
[2022-12-13 22:12] LABS: Alanine Aminotransferase < 5 U/L (0-41); Albumin Level 3.5 g/dL (3.5-5.2); Alkaline Phosphatase 128 U/L (40-130); Anion Gap 22.3 (5-19); Aspartate Amino Transferase 12 U/L (0-40); Blood Urea Nitrogen 32 mg/dL (6-20); Calcium 9.6 mg/dL (8.5-10.5); Carbon Dioxide 25 mmol/L (22-29); Chloride 92 mmol/L (98-107); Globulin 2.6 g/dL (1.3-4.6); Glomerular Filtration Rate 7.2 mL/min (90-130); Glucose 89 mg/dL (65-115); Osmolality Calculated 278 mOsm/kg (285-295); Sodium 131 mmol/L (136-145); Total Bilirubin 0.3 mg/dL (0.15-1.2); Total Protein 6.1 g/dL (6.6-8.7)
[2022-12-13 22:18] LABS: Potassium 8.3 mmol/L (3.5-5.1)
[2022-12-13 22:47] LABS: Potassium 8.8 mmol/L (3.5-5.1)
--- NOTE | 2022-12-13 22:56 | W.ED.WEAKNES ---
HPI - Weakness General: Chief complaint: Weakness Stated complaint: Weakness/ BP Time Seen by Provider: 12/13/22 22:01 Source: patient Mode of arrival: ambulatory Limitations: no limitations History of Present Illness: 57-year-old male history end-stage renal disease gets dialysis Wednesday states he did go on Wednesday. He states he has been feeling very fatigued today and feels like his potassium may be high denies any vomiting or diarrhea denies any chest pain or fever. Associated symptoms: Denies chest pain, chills, fever(s), headache(s), nausea or vomiting Review of Systems Const: Reports: fatigue and malaise; Denies: fever(s), chills or body aches Eyes: Denies: blurry vision or eye discomfort ENMT: Denies: throat pain or dental pain Card: Denies: chest pain Resp: Denies: dyspnea GI: Denies: abdominal pain, nausea, vomiting or diarrhea Musc: Denies: neck pain or back pain Skin/Breast: Denies: rash Neuro: Denies: headache(s) PFS ED PFSH: Medical History (Updated 12/14/22 @ 00:26 by Ghada Fontanez MD) Ascites Bilateral hydronephrosis Chronic anemia CVA (cerebral vascular accident) Dilated aortic root End stage renal disease on dialysis GERD (gastroesophageal reflux disease) Gout History of stroke Hypertension Hypothyroidism Incomplete bladder emptying Major depressive disorder Neuropathy, lumbosacral (radicular) Polycystic kidney disease Right bundle branch block (RBBB) on electrocardiogram (ECG) Surgical History AV fistula History of colonoscopy 2019 at [facility] History of surgical procedure Peritoneal dialysis catheter placement by Dr. Kamara 2016 S/P hemodialysis catheter insertion (03/13/20) 23cm long exchanged right IJ Removed on 06/11/2020 Family History Mother Chronic kidney disease (CKD) Stroke Father Cancer lung Brother Hypertension Denies family history of Diabetes CAD (coronary artery disease) Clotting disorder Dementia Hyperlipidemia Psychiatric illness Anesthesia complication Bleeding disorder Lung disease Social History Smoking and tobacco status: current every day smoker cigarettes Packs smoked per day: 1 [ Other cigarette details: Half a pack per day for last 20-30 years] Alcohol intake: never Substance/Drug Use: current Substance/Drug use frequency: few times a week Marital status: Number of children: 1 Current occupational status: disabled Current gender identity: Male Agree to transfusion: Yes Physical Exam Const: COMMON NORMALS: patient oriented x3 GENERAL APPEARANCE: in distress HENMT: COMMON NORMALS: normocephalic and atraumatic HEAD & SCALP: normocephalic and atraumatic Eye: COMMON NORMALS: Equal, round and reactive pupils present and EOMs intact bilaterally PUPIL: Yes Equal, round and reactive pupils present Neck/C-Spine: COMMON NORMALS: full ROM and supple Chest: COMMONS NORMALS: normal inspection of the chest and normal palpation of entire chest wall Resp: COMMON NORMALS: normal respiratory effort, No retractions, No use of accessory muscles and clear to auscultation bilaterally AUSCULTATION: clear to auscultation bilaterally Cardio: COMMON NORMALS: regular rate, regular rhythm and No murmurs present (Cardio) RATE: regular rate RHYTHM: regular rhythm GI: COMMON NORMALS: Normal to inspection, nondistended, normoactive bowel sounds present, Soft to palpation, non-tender and no masses PALPATION: Yes Soft to palpation Extremity: COMMON NORMALS: normal to inspection and full ROM Neuro: COMMON NORMALS: patient oriented x3, moves all extremities and no focal motor deficits Psych: COMMON NORMALS: mental status grossly normal, Normal thought process present and cooperative THOUGHT PROCESS: Normal thought process present Skin: COMMON NORMALS: no rashes or lesions noted and no wounds GENERAL SKIN EXAM: no rashes or lesions noted Course Vital Signs: Vital signs: Vital Signs Temperature 98.2 F 12/13/22 21:53 Pulse Rate 72 12/13/22 23:39 Respiratory Rate 16 12/13/22 23:39 Blood Pressure 183/93 12/13/22 23:39 Pulse Oximetry 95 12/13/22 23:39 Oxygen Delivery Me thod Room Air 12/13/22 23:24 MDM - Weakness Medical Decision Making Patient presents with hypokalemia he does have peaked T waves no QRS widening he is given insulin here along with albuterol and calcium spoke to the hospitalist will admit to the ICU we will contact nephrology Medical Records I reviewed the patient's medical records. Lab Data I reviewed the patient's lab results. 12/13/22 21:52 12/13/22 22:24 Radiology Impressions Chest X-Ray 12/13/22 22:58 IMPRESSION: No evidence of acute cardiopulmonary disease. Laboratory Results WBC 9.0 10^3/uL (4.0-10.0) 12/13/22 21:52 RBC 3.36 10^6/uL (4.1-5.3) L 12/13/22 21:52 Hgb 10.2 g/dL (11.7-16.6) L 12/13/22 21:52 Hct 32.3 % (42.0-52.0) L 12/13/22 21:52 MCV 96.1 fl (80-94) H 12/13/22 21:52 MCH 30.4 pg (28.0-34.0) 12/13/22 21:52 MCHC 31.6 g/dL (30.0-36.0) 12/13/22 21:52 RDW 14.7 % (12.1-15.1) 12/13/22 21:52 Plt Count 286 10^3/cmm (130-400) 12/13/22 21:52 MPV 9.0 fL (7.4-10.4) 12/13/22 21:52 Neut % (Auto) 71.1 % 12/13/22 21:52 Lymph % (Auto) 15.7 % 12/13/22 21:52 [place] % (Auto) 9.4 % 12/13/22 21:52 Eos % (Auto) 2.9 % 12/13/22 21:52 Baso % (Auto) 0.6 % 12/13/22 21:52 Neut # (Auto) 6.43 10^3/uL (1.8-7.7) 12/13/22 21:52 Lymph # (Auto) 1.4 10^3/uL (0.8-4.8) 12/13/22 21:52 [place] # (Auto) 0.9 10^3/uL (0.2-0.9) 12/13/22 21:52 Eos # (Auto) 0.3 10^3/uL (0.0-0.8) 12/13/22 21:52 Baso # (Auto) 0.1 10^3/uL (0.0-0.1) 12/13/22 21:52 Nucleated RBC % (auto) 0 % 12/13/22 21:52 Nucleated RBCs # 0.0 /100WBC 12/13/22 21:52 Sodium 131 mmol/L (136-145) L 12/13/22 21:52 Potassium 8.8 mmol/L (3.5-5.1) H* 12/13/22 22:24 Chloride 92 mmol/L (98-107) L 12/13/22 21:52 Carbon Dioxide 25 mmol/L (22-29) 12/13/22 21:52 Anion Gap 22.3 (5-19) H 12/13/22 21:52 BUN 32 mg/dL (6-20) H 12/13/22 21:52 Creatinine 7.8 mg/dL (0.7-1.2) H* 12/13/22 21:52 GFR Calculation 7.2 mL/min (90-130) L 12/13/22 21:52 Glucose 89 mg/dL (65-115) 12/13/22 21:52 Calculated Osmolality 278 mOsm/kg (285-295) L 12/13/22 21:52 Calcium 9.6 mg/dL (8.5-10.5) 12/13/22 21:52 Total Bilirubin 0.3 mg/dL (0.15-1.2) 12/13/22 21:52 AST 12 U/L (0-40) 12/13/22 21:52 ALT < 5 U/L (0-41) 12/13/22 21:52 Alkaline Phosphatase 128 U/L (40-130) 12/13/22 21:52 Total Protein 6.1 g/dL (6.6-8.7) L 12/13/22 21:52 Albumin 3.5 g/dL (3.5-5.2) 12/13/22 21:52 Globulin 2.6 g/dL (1.3-4.6) 12/13/22 21:52 EKG Data EKG 1: I personally reviewed and interpreted this EKG as follows: EKG interpretation date: 12/13/22 EKG interpretation time: 22:36 Interpretation: sinus efrain hr [address] elevation peaked t waves qrs 122 qtc 458 Critical Care Time Critical Care Time: Critical Care Time: Yes Total Critical Care Time: 50 Attestation: The high probability of a clinically significant, sudden or life threatening deterioration of the patient's renal system(s) required my full and direct attention, intervention and personal management. The critical care time is as shown. 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
--- NOTE | 2022-12-13 22:58 | XRR_ITS ---
PROCEDURE INFORMATION: Exam: XR Chest Exam date and time: 12/13/2022 11:00 PM Age: 57 years old Clinical indication: Other: Hypertension; Additional info: HTN TECHNIQUE: Imaging protocol: Radiologic exam of the chest. Views: 1 view. COMPARISON: CR (CHEST, ) 11/19/2022 10:16 PM FINDINGS: Lungs: The lungs are well-aerated with no focal infiltrates. Pleural spaces: There are no effusions. There are no pneumothoraces. Heart/Mediastinum: Cardiac mediastinal silhouette is prominent. Vasculature: There is tortuosity of the descending thoracic aorta. Bones/joints: There are no fractures or dislocations noted. Intraperitoneal space: There is no free intraperitoneal air noted. XR/XR chest 1V portable [id number] IMPRESSION: No evidence of acute cardiopulmonary disease.
[2022-12-13] MEDS: calcium gluconate 0.1 gm/mL 10% SDV 10mL 1 GM IVP (23:16)
[2022-12-13] MEDS: dextrose 50% syringe 50 mL IVP (23:16)
[2022-12-13] MEDS: albuterol 2.5 mg/3 mL Neb INHALATION (23:22)
[2022-12-13 23:24] VITALS: PULSE 69; RESP 19; O2SAT 100
[2022-12-13] MEDS: insulin regular-human 100 units/1 mL 10 UNIT IVP (23:28)
[2022-12-13 23:39] VITALS: BP 183/93; PULSE 72; RESP 16; O2SAT 95
--- NOTE | 2022-12-13 23:40 | P.HP_ITS ---
Providers/Chief Complaint Admitting Physician: Ptaricia Rees MD Primary Care Provider: Randolph Ortiz MD Chief Complaint: Weakness/ BP History of Present Illness Navneet Savage is a 57 year old male with multiple chronic medical problems as noted below who presented to the emergency room with chief complaint of not feeling well. He says that he feels like crap but is not really able to elucidate further what he means by that. He was seen yesterday with elevated blood pressure and discharge. He was tired at the time but indicates that things were significantly worse today. Denied chest pain. Denies acute difficulty breathing. No vomiting or diarrhea. Abdomen is not any bigger than usual. Denies abdominal pain. He gets weekly paracentesis with next appoi ntment on Wednesday. He gets dialysis Mondays, Wednesdays and Fridays and states that he has been compliant with his sessions. No reports of any fever. He has had a little bit of a sore throat but denies difficulty breathing or cough. Just extremely tired and weak. Denies any bleeding. In the emergency room laboratory studies were done today. Initial potassium was noted to be 8.7. Repeat potassium was 8.8. In talking with him he admits that he probably did not follow renal diet this weekend. Twelve-lead EKG shows peaked T waves. He is being admitted for further treatment and evaluation as indicated. He has had similar presentations previously. Blood pressures today are not as high as they often are when he presents. Shortly after my evaluation, patient had an episode of altered mental status, diaphoresis and was found to have hypoglycemia. He had previously received insulin and D50 as part of management for his hyperkalemia with EKG changes. Additional D50 was given. Repeat blood sugar upon arrival to the ICU was 82. Half an amp of D50 was given. Not too long after this patient was much more alert. Dialysis nurse has arrived and hemodialysis is being initiated. Review of Systems General: Reports: Other (ROS as per HPI or as otherwise noted here) Medications/Allergies Home Medications Medication Instructions Recorded Confirmed Last Taken Type allopurinol 100 mg tablet 100 mg PO DAILY 11/27/19 12/11/22 12/11/22 History lisinopril 20 mg tablet 20 mg PO DAILY 07/08/21 12/11/22 12/11/22 History hydralazine 50 mg tablet 100 mg PO TID 04/14/22 12/11/22 12/11/22 History minoxidil 2.5 mg tablet 5 mg PO BID 04/14/22 12/11/22 12/11/22 History isosorbide mononitrate 60 mg 60 mg PO DAILY 05/07/22 12/11/22 12/11/22 History tablet,extended release 24 hr simvastatin 40 mg tablet 40 mg PO DAILY 05/07/22 12/11/22 12/11/22 History cinacalcet 30 mg tablet 30 mg PO DAILY 05/12/22 12/11/22 12/11/22 History cholecalciferol (vitamin D3) 125 125 mcg PO DAILY 06/18/22 12/11/22 12/11/22 History mcg (5,000 unit) capsule ferric citrate 210 mg iron tablet 2 tab PO TID 06/22/22 12/11/22 12/11/22 His tory (Auryxia) vit B,C-folic ac 800 mcg-zinc 12.5 1 tab PO DAILY 06/22/22 12/11/22 12/11/22 History mg-selen-D3 2,000 unit-vit E tablet (RenaPlex-D) sertraline 50 mg tablet 50 mg PO DAILY #90 tabs 09/23/22 12/11/22 12/11/22 Rx sucralfate 1 gram tablet 1 g PO Q6H PRN Acid Reflux 10/06/22 12/11/22 12/11/22 History hydroxyzine HCl 25 mg tablet 25 mg PO QID PRN itching #120 tabs 10/15/22 12/11/22 12/11/22 Rx levothyroxine 75 mcg tablet 75 mcg PO DAILY #60 tabs 10/15/22 12/11/22 12/11/22 Rx trazodone 50 mg tablet 25 mg PO BEDTIME PRN insomnia #20 11/08/22 12/11/2211/22 Rx tabs carvedilol 25 mg tablet 25 mg PO DAILY 11/13/22 12/11/22 12/11/22 History clonidine HCl 0.2 mg tablet 0.2 mg PO BID 11/13/22 12/11/22 12/11/22 History hydroxyzine HCl 50 mg tablet 50 mg PO QPM PRN Itching 11/13/22 12/11/2212/11/23 History Allergies Allergy/AdvReac Type Severity Reaction Status Date / Time Penicillins Allergy ALGY-Anaphy Verified 12/13/22 21:53 laxis Sulfa (Sulfonamide Allergy Unknown Verified 12/13/22 21:53 Antibiotics) fluoxetine [From Prozac] AdvReac Mild stomach Verified 12/13/22 21:53 upset Additional Medication Information Patient not able to directly confirm medications but indicates no change from recent medication list. PFSH Acute PFSH: Medical History (Updated 12/14/22 @ 03:28 by Patricia Rees MD) Anemia in chronic kidney disease Ascites gets regular paracentesis Bilateral hydronephrosis Chronic anemia CVA (cerebral vascular accident) Dilated aortic root End stage renal disease on dialysis GERD (gastroesophageal reflux disease) Gout History of stroke Hypertension Hypothyroidism Incomplete bladder emptying Major depressive disorder Neuropathy, lumbosacral (radicular) Polycystic kidney disease Right bundle branch block (RBBB) on electrocardiogram (ECG) Surgical History (Updated 12/14/22 @ 00:41 by Patricia Rees MD) AV fistula left arm History of colonoscopy 2019 at [facility] History of surgical procedure Peritoneal dialysis catheter placement by Dr. Kamara 2016 S/P hemodialysis catheter insertion (03/13/20) 23cm long exchanged right IJ Removed on 06/11/2020 Family History Mother Chronic kidney disease (CKD) Stroke Father Cancer lung Brother Hypertension Denies family history of Diabetes CAD (coronary artery disease) Clotting disorder Dementia Hyperlipidemia Psychiatric illness Anesthesia complication Bleeding disorder Lung disease Social History (Updated 12/14/22 @ 00:42 by Patricia Rees MD) Smoking and tobacco status: current every day smoker cigarettes Packs smoked per day: 1 [ Other cigarette details: Half a pack per day for last 20-30 years] Alcohol intake: never Substance/Drug Use: current Substance/Drug use frequency: few times a week Substance/Drug use type: Marijuana Marital status: Number of children: 1 Current occupational status: disabled Current gender identity: Male Agree to transfusion: Yes Vitals/I&O/Wt Last Vital Signs Temp 98.2 F 12/13/22 21:53 Pulse 72 12/13/22 23:39 Resp 16 12/13/22 23:39 BP 183/93 12/13/22 23:39 Pulse Ox 95 12/13/22 23:39 O2 Del Method Room Air 12/13/22 23:24 Weight last 48 hrs Weight 81.647 kg Physical Exam Narrative: Patient is asleep but easily arousable at the time of my initial evaluation. Looks tired and chronically ill. Extraocular movements are intact. Oropharynx with moist membranes. No erythema. Neck is supple. Lungs are clear to auscultation anteriorly, decreased at both bases. Regular rhythm. Left upper extremity AV fistula with positive thrill. Abdomen is soft, rounded, nontender with positive bowel sounds. 3+ pitting edema noted to bilateral lower extremities. Able to go from supine to sitting without assistance and from sitting to standing without assistance. Utilizing all extremities. Speech is clear. Data 12/13/22 21:52 12/13/22 22:24 Other Labs: Radiology Impressions Chest X-Ray 12/13/22 22:58 IMPRESSION: No evidence of acute cardiopulmonary disease. Laboratory Results WBC 9.0 10^3/uL (4.0-10.0) 12/13/22 21:52 RBC 3.36 10^6/uL (4.1-5.3) L 12/13/22 21:52 Hgb 10.2 g/dL (11.7-16.6) L 12/13/22 21:52 Hct 32.3 % (42.0-52.0) L 12/13/22 21:52 MCV 96.1 fl (80-94) H 12/13/22 21:52 MCH 30.4 pg (28.0-34.0) 12/13/22 21:52 MCHC 31.6 g/dL (30.0-36.0) 12/13/22 21:52 RDW 14.7 % (12.1-15.1) 12/13/22 21:52 Plt Count 286 10^3/cmm (130-400) 12/13/22 21:52 MPV 9.0 fL (7.4-10.4) 12/13/22 21:52 Neut % (Auto) 71.1 % 12/13/22 21:52 Lymph % (Auto) 15.7 % 12/13/22 21:52 [place] % (Auto) 9.4 % 12/13/22 21:52 Eos % (Auto) 2.9 % 12/13/22 21:52 Baso % (Auto) 0.6 % 12/13/22 21:52 Neut # (Auto) 6.43 10^3/uL (1.8-7.7) 12/13/22 21:52 Lymph # (Auto) 1.4 10^3/uL (0.8-4.8) 12/13/22 21:52 [place] # (Auto) 0.9 10^3/uL (0.2-0.9) 12/13/22 21:52 Eos # (Auto) 0.3 10^3/uL (0.0-0.8) 12/13/22 21:52 Baso # (Auto) 0.1 10^3/uL (0.0-0.1) 12/13/22 21:52 Nucleated RBC % (auto) 0 % 12/13/22 21:52 Nucleated RBCs # 0.0 /100WBC 12/13/22 21:52 Sodium 131 mmol/L (136-145) L 12/13/22 21:52 Potassium 8.8 mmol/L (3.5-5.1) H* 12/13/22 22:24 Chloride 92 mmol/L (98-107) L 12/13/22 21:52 Carbon Dioxide 25 mmol/L (22-29) 12/13/22 21:52 Anion Gap 22.3 (5-19) H 12/13/22 21:52 BUN 32 mg/dL (6-20) H 12/13/22 21:52 Creatinine 7.8 mg/dL (0.7-1.2) H* 12/13/22 21:52 GFR Calculation 7.2 mL/min (90-130) L 12/13/22 21:52 Glucose 89 mg/dL (65-115) 12/13/22 21:52 Calculated Osmolality 278 mOsm/kg (285-295) L 12/13/22 21:52 Calcium 9.6 mg/dL (8.5-10.5) 12/13/22 21:52 Total Bilirubin 0.3 mg/dL (0.15-1.2) 12/13/22 21:52 AST 12 U/L (0-40) 12/13/22 21:52 ALT < 5 U/L (0-41) 12/13/22 21:52 Alkaline Phosphatase 128 U/L (40-130) 12/13/22 21:52 Total Protein 6.1 g/dL (6.6-8.7) L 12/13/22 21:52 Albumin 3.5 g/dL (3.5-5.2) 12/13/22 21:52 Globulin 2.6 g/dL (1.3-4.6) 12/13/22 21:52 A&P Assessment and plan (1) Malaise: Primary chief complaint along with weakness today, appears multifactorial from chronic conditions and acute hyperkalemia at this time (2) Acute hyperkalemia: With EKG changes in a patient with known chronic kidney disease on a Wednesday dialysis schedule. He did not miss dialysis on Wednesday by his report but did admit to not following a strict renal diet this weekend. (3) Hypoglycemia: Noted after receiving insulin and D50 for hyperkalemia treatment in the emergency room. Does not have a history of diabetes. Was quite symptomatic with altered mental status, diaphoresis and worsening of malaise/fatigability transiently. Appears iatrogenic in nature but need to evaluate further as would not expect such a drop with treatment administered. (4) End stage renal disease on dialysis: Has a history of polycystic kidney disease from available records and has dialysis Wednesdays and Fridays via AV fistula in the left upper extremity (5) Hypertension: Essential hypertension that is chronically difficult to control on multiple medications chronically including carvedilol, clonidine at times, hydralazine, isosorbide, lisinopril, minoxidil (6) Anemia in chronic kidney disease: Appears to be near baseline (7) Ascites: Chronic, records indicate nephrogenic in nature, goes for weekly paracentesis on Tuesdays (8) GERD (gastroesophageal reflux disease): On chronic PPI (9) Gout: On chronic allopurinol (10) Tobacco use disorder: Plan Observation admission Nephrology consultation, spoke with Dr. Sifuentes Anticipate dialysis tonight and possibly in the morning which is his usual dialysis day Monitor blood sugars closely and follow hypoglycemia protocol, discussed with nursing Serial cardiac enzymes and EKGs Monitor for signs and symptoms of acute infection, blood cultures to be drawn with HD Continue home carvedilol, half usual dose of hydralazine, half usual dose of isosorbide. Need to clarify current home medication list. Presently holding lisinopril secondary to hyperkalemia along with minoxidil as current blood pressures are lower than normal for patient. Monitor blood pressures closely Serial neuro exams Repeat CBC in the morning Continue home allopurinol Continue home PPI Continue home sertraline Nicotine patch if needed Reevaluate after above for need for further care VTE prophylaxis: SCDs and subcu heparin GI Prophylaxis: Home PPI Telemetry: Telemetry ordered secondary to electrolyte abnormality and EKG changes currently Hong: Not indicated Line(s): Peripheral IV Disposition plan: Home with resumption of usual dialysis schedule and close outpatient follow-up Code Status: Full code Attestations Medical Necessity Statement*: Currently anticipate a stay less than two midnights in a patient on chronic hemodialysis presenting with hyperkalemia after weekend of not following appropriate renal diet. He has current EKG changes and other symptoms as described. Nephrology has been consulted for dialysis tonight. and High Time for a total of 80 minutes, includes reviewing past or interval history, examining/interviewing patient, placing orders, discussing plan of care with staff (ED, ICU and dialysis nurse), communicating with other healthcare providers (nephrology) and documenting encounter Diagnoses Malaise R53.81 Acute hyperkalemia E87.5 Hypoglycemia E16.2 End stage renal disease on dialysis N18.6; Z99.2 Hypertension I10 Anemia in chronic kidney disease N18.9; D63.1 Ascites R18.8 GERD (gastroesophageal reflux disease) K21.9 Gout M10.9 Tobacco use disorder F17.200
--- NOTE | 2022-12-13 23:44 | P.CONIM_ITS ---
Providers/Reason For Consult Consulting Physician/Specialty*: Madyson Sifuentes DO, telenephrology Reason for Consult*: ESRD, hyperkalemia Requesting Physician: Patricia Bonilla MD Primary Care Provider: Randolph Ortiz MD History of Present Illness History of Present Illness Navneet Savage is a 57 year old male who presents for evaluation generalized weakness. seen in ER yesterday for hypertension last HD 12/11/22 Medications/Allergies Home Medications Medication Instructions Recorded Confirmed Last Taken Type allopurinol 100 mg tablet 100 mg PO DAILY 11/27/19 12/11/22 12/11/22 History lisinopril 20 mg tablet 20 mg PO DAILY 07/08/21 12/11/22 12/11/22 History hydralazine 50 mg tablet 100 mg PO TID 04/14/22 12/11/22 12/11/22 History minoxidil 2.5 mg tablet 5 mg PO BID 04/14/22 12/11/22 12/11/22 History isosorbide mononitrate 60 mg 60 mg PO DAILY 05/07/22 12/11/22 12/11/22 History tablet,extended release 24 hr simvastatin 40 mg tablet 40 mg PO DAILY 05/07/22 12/11/22 12/11/22 History cinacalcet 30 mg tablet 30 mg PO DAILY 05/12/22 12/11/22 12/11/22 History cholecalciferol (vitamin D3) 125 125 mcg PO DAILY 06/18/22 12/11/22 12/11/22 History mcg (5,000 unit) capsule ferric citrate 210 mg iron tablet 2 tab PO TID 06/22/22 12/11/22 12/11/22 History (Auryxia) vit B,C-folic ac 800 mcg-zinc 12.5 1 tab PO DAILY 06/22/22 12/11/22 12/11/22 History mg-selen-D3 2,000 unit-vit E tablet (RenaPlex-D) sertraline 50 mg tablet 50 mg PO DAILY #90 tabs 09/23/22 12/11/22 12/11/22 Rx sucralfate 1 gram tablet 1 g PO Q6H PRN Acid Reflux 10/06/22 12/11/22 12/11/22 History hydroxyzine HCl 25 mg tablet 25 mg PO QID PRN itching #120 tabs 10/15/22 12/11/22 12/11/22 Rx levothyroxine 75 mcg tablet 75 mcg PO DAILY #60 tabs 10/15/22 12/11/22 12/11/22 Rx trazodone 50 mg tablet 25 mg PO BEDTIME PRN insomnia #20 11/08/22 12/11/22 12/11/22 Rx tabs carvedilol 25 mg tablet 25 mg PO DAILY 11/13/22 12/11/22 12/11/22 History clonidine HCl 0.2 mg tablet 0.2 mg PO BID 11/13/22 12/11/22 12/11/22 History hydroxyzine HCl 50 mg tablet 50 mg PO QPM PRN Itching 11/13/22 12/11/22 12/11/22 History Allergies Allergy/AdvReac Type Severity Reaction Status Date / Time Penicillins Allergy ALGY-Anaphy Verified 12/13/22 21:53 laxis Sulfa (Sulfonamide Allergy Unknown Verified 12/13/22 21:53 Antibiotics) fluoxetine [From Prozac] AdvReac Mild stomach Verified 12/13/22 21:53 upset PFSH Acute PFSH: Medical History (Updated 12/14/22 @ 00:16 by Madyson Sifuentes DO) Ascites Bilateral hydronephrosis Chronic anemia CVA (cerebral vascular accident) Dilated aortic root End stage renal disease on dialysis GERD (gastroesophageal reflux disease) Gout History of stroke Hypertension Hypothyroidism Incomplete bladder emptying Major depressive disorder Neuropathy, lumbosacral (radicular) Polycystic kidney disease Right bundle branch block (RBBB) on electrocardiogram (ECG) Surgical History AV fistula History of colonoscopy 2019 at [facility] History of surgical procedure Peritoneal dialysis catheter placement by Dr. Kamara 2016 S/P hemodialysis catheter insertion (03/13/20) 23cm long exchanged right IJ Removed on 06/11/2020 Family History Mother Chronic kidney disease (CKD) Stroke Father Cancer lung Brother Hypertension Denies family history of Diabetes CAD (coronary artery disease) Clotting disorder Dementia Hyperlipidemia Psychiatric illness Anesthesia complication Bleeding disorder Lung disease Social History Smoking and tobacco status: current every day smoker cigarettes Packs smoked per day: 1 [ Other cigarette details: Half a pack per day for last 20-30 years] Alcohol intake: never Substance/Drug Use: current Substance/Drug use frequency: few times a week Marital status: Number of children: 1 Current occupational status: disabled Current gender identity: Male Agree to transfusion: Yes Vitals/I&O/Wt Last Vital Signs Temp 98.2 F 12/13/22 21:53 Pulse 72 12/13/22 23:39 Resp 16 12/13/22 23:39 BP 183/93 12/13/22 23:39 Pulse Ox 95 12/13/22 23:39 O2 Del Method Room Air 12/13/22 23:24 Weight last 48 hrs Weight 81.647 kg Physical Exam Extremity: NARRATIVE EXTREMITY EXAM: LUE AVF + thrill per patient, no signs of infection Data 12/13/22 21:52 12/13/22 22:24 CXR: Radiologist's impression: no acute findings Other data: seen via telemedicine with assistance of RN at bedside A&P Assessment and plan (1) End stage renal disease on dialysis: Plan 1. Hyperkalemia 2. ESRD 3. Hypertension 4. Anemia Plan: HD KARELY, 4h, 2K bath, 2500 ml UF. Kayexylate 30 g po. Continue outpatient BP medications. No IVs, BPs, blood draws left UE. Repeat K 4h after end of HD Consult Attestations Medical Necessity Statement: see above Time Spent in Patient Care: 16 - 35 minutes Coding Level of Care Code Acute Code for Chg Fwd Diagnoses End stage renal disease on dialysis N18.6; Z99.2
[2022-12-14] VITALS (158 sets, daily range): BP systolic 103–200; BP diastolic 51–146; PULSE 63–100; RESP 12–38; TEMP 35.8–36.8; O2SAT 74–100
[2022-12-14 00:18] LABS: Glucose Point of Care 53 mg/dL (70-110)
[2022-12-14] MEDS: dextrose 50% syringe 50 mL IVP (00:22)
[2022-12-14 00:32] LABS: Glucose Point of Care 108 mg/dL (70-110)
[2022-12-14] MEDS: sodium polystyrene sulfonate 15 gm/60 mL Btl 30 GM PO (00:48)
[2022-12-14 01:06] LABS: Hepatitis B Surface Antigen Non-Reactive (Nonreactive)
[2022-12-14] MEDS: heparin 5,000 unit/mL INJ 1 mL 5000 UNIT SUBCUT ×2 (01:09→12:24)
[2022-12-14 01:22] LABS: Glucose Point of Care 82 mg/dL (70-110)
[2022-12-14] MEDS: dextrose 50% syringe 50 mL 25 ML IVP (01:31)
[2022-12-14] MEDS: heparin, porcine 1,000 unit/mL INJ 10 mL 1000 UNIT IV (02:23)
[2022-12-14 02:38] LABS: Glucose Point of Care 82 mg/dL (70-110)
[2022-12-14 02:55] LABS: Troponin(5th) Baseline 352 ng/L (0-15)
[2022-12-14 03:14] LABS: Basophils % 0.4 %; Eosinophils # 0.2 10^3/uL (0.0-0.8); Hematocrit 31.4 % (42.0-52.0); Lymphocytes # 0.9 10^3/uL (0.8-4.8); Lymphocytes % 9.6 %; Mean Corpuscular HGB Conc 31.8 g/dL (30.0-36.0); Mean Corpuscular Hemoglobin 30.7 pg (28.0-34.0); Mean Corpuscular Volume 96.3 fl (80-94); Mean Platelet Volume 9.7 fL (7.4-10.4); Monocytes # 0.8 10^3/uL (0.2-0.9); Monocytes % 7.8 %; Neutrophils # 7.58 10^3/uL (1.8-7.7); Neutrophils % 79.4 %; Nucleated Red Blood Cells % 0 %; Platelet Count 265 10^3/cmm (130-400); Red Blood Count 3.26 10^6/uL (4.1-5.3); Red Cell Distribution Width 14.7 % (12.1-15.1); White Blood Count 9.6 10^3/uL (4.0-10.0)
--- NOTE | 2022-12-14 03:20 | ECG_ITS ---
[facility] Test Date: 2022-12-14 Pat Name: Navneet Savage Department: Room: ICU10 Gender: Male [employer]: : 1965 Requested By: Patricia Rees Order Number: [id number] Nate MD: Dora Mustafa M.D. Measurements Intervals [place] Rate: 70 P: 22 IL: 136 QRS: -40 QRSD: 105 T: 46 QT: 432 QTc: 467 Interpretive Statements SINUS RHYTHM LEFT AXIS DEVIATION [QRS AXIS < -30] VOLTAGE CRITERIA FOR LVH [MEETS CRITERIA IN ONE OF: R(aVL), S(V1), R(V5), R(V5/V6)+S(V1)] Compared to ECG 12/13/2022 22:36:57 Left-axis deviation now present Sinus bradycardia no longer present Left anterior fascicular block no longer present Myocardial infarct finding no longer present Electronically Signed On 12-14-2022 21:30:59 CDT by Dora Mustafa M.D. [id number]
[2022-12-14 03:27] LABS: Magnesium 1.8 mg/dL (1.7-2.3)
[2022-12-14 03:29] LABS: Anion Gap 19.8 (5-19); Blood Urea Nitrogen 23 mg/dL (6-20); Calcium 9.8 mg/dL (8.5-10.5); Carbon Dioxide 27 mmol/L (22-29); Chloride 97 mmol/L (98-107); Glomerular Filtration Rate 9.6 mL/min (90-130); Glucose 86 mg/dL (65-115); Osmolality Calculated 289 mOsm/kg (285-295); Potassium 5.8 mmol/L (3.5-5.1); Sodium 138 mmol/L (136-145)
[2022-12-14 03:34] LABS: Phosphorus 9.6 mg/dL (2.5-4.5)
[2022-12-14 05:24] LABS: Troponin 5 2HR 325.4 ng/L (0-15); Troponin 5 2HR Delta -26.6 ABS# (0-10)
[2022-12-14] MEDS: levothyroxine 150 mcg Tablet 75 MCG PO (05:42)
--- NOTE | 2022-12-14 06:40 | PC.HD ---
Patient signed off AMA 9 minutes early due to needing to have a bowel movement and refusing to use the bedpan. Primary RN and claim adjuster notified.
[2022-12-14] MEDS: isosorbide mononitrate ER 30 mg Tablet PO (08:10)
[2022-12-14] MEDS: hyDRALAzine 50 mg Tablet PO (08:11)
--- NOTE | 2022-12-14 08:11 | USCV_ITS ---
Navneet Savage Age: 57 Gender: M : 1965 Exam Date: 12/14/2022 11:25 Ordering Phys: Bony Duarte MD Technologist: Aman Caro Exam Location: [facility] [place] Indication: chest pain ? nstemi BP: 151 / 86 HR: 67 Rhythm: Sinus Technical Quality: Adequate MEASUREMENTS (Male / Female) Normal Values 2D ECHO LV Diastolic Diameter PLAX 4.3 cm 4.2 - 5.9 / 3.9 - 5.3 cm LV Systolic Diameter PLAX 3.1 cm IVS Diastolic Thickness 1.5 cm 0.6 - 1.0 / 0.6 - 0.9 cm IVS Systolic Thickness 1.6 cm LVPW Diastolic Thickness 1.5 cm 0.6 - 1.0 / 0.6 - 0.9 cm LVPW Systolic Thickness 1.7 cm LVOT Diameter 2.0 cm LV Ejection Fraction 2D Teich 54.7 % LV Ejection Fraction MOD 2C 68.6 % LV Ejection Fraction 2C AL 68.2 % LA Diameter 4.6 cm M-MODE Aortic Annulus Diameter 4.7 cm LA Ao Ratio MM 0.9 MV E Point Septal Separation 1.1 cm FINDINGS Left Ventricle Left ventricle is normal size. LV systolic function is normal with EF 55 to 60%. No regional wall motion abnormalities are seen. Right Ventricle Normal size and function Right Atrium Normal in size Left Atrium Dilated Mitral Valve Moderate to severe mitral annular calcification. Aortic Valve Thickened Tricuspid Valve Mild tricuspid regurgitation Pulmonic Valve Not well visualized Pericardium Normal Aorta Aortic root is dilated IVC Not well-visualized CONCLUSIONS LV systolic function is normal with EF 55 to 60%. Left atrial dilation Moderate to severe mitral annular calcification Mild tricuspid regurgitation Compared to prior echocardiogram from 06/2022, no significant changes are seen Saurabh Fitzpatrick MD (Electronically Signed) Final Date: 14 December 2022 18:11 S
[2022-12-14] MEDS: allopurinol 100 mg Tablet PO (08:12)
[2022-12-14] MEDS: sertraline 50 mg Tablet 25 MG PO (08:12)
--- NOTE | 2022-12-14 08:14 | ECG_ITS ---
[facility] Test Date: 2022-12-14 Pat Name: Navneet Savage Department: Room: ICU10 Gender: Male Phone Representative: : 1965 Requested By: Patricia Rees Order Number: [id number] Nate MD: Dora Mustafa M.D. Measurements Intervals [place] Rate: 67 P: 18 IA: 138 QRS: -34 QRSD: 102 T: 50 QT: 415 QTc: 441 Interpretive Statements SINUS RHYTHM WITH SINUS ARRHYTHMIA LEFT AXIS DEVIATION [QRS AXIS < -30] VOLTAGE CRITERIA FOR LVH [MEETS CRITERIA IN ONE OF: R(aVL), S(V1), R(V5), R(V5/V6)+S(V1)] Compared to ECG 12/14/2022 03:23:16 No significant changes Electronically Signed On 12-14-2022 21:30:24 CDT by Dora Mustafa M.D. [id number]
[2022-12-14] MEDS: minoxidil 10 mg Tablet 5 MG PO ×2 (08:39→17:43)
[2022-12-14] MEDS: cloNIDine 0.1 mg Tablet PO ×2 (08:40→17:43)
[2022-12-14] MEDS: lisinopril 20 mg Tablet PO (08:40)
[2022-12-14] MEDS: carvedilol 12.5 mg Tablet PO ×2 (08:41→20:51)
[2022-12-14 08:53] LABS: Anion Gap 14.8 (5-19); Blood Urea Nitrogen 9 mg/dL (6-20); Calcium 9.8 mg/dL (8.5-10.5); Carbon Dioxide 31 mmol/L (22-29); Chloride 94 mmol/L (98-107); Glomerular Filtration Rate 17.6 mL/min (90-130); Glucose 72 mg/dL (65-115); Osmolality Calculated 277 mOsm/kg (285-295); Potassium 4.8 mmol/L (3.5-5.1); Sodium 135 mmol/L (136-145)
--- NOTE | 2022-12-14 09:01 | PC.PHAR ---
PT STATES HE TAKES CARE OF HIS OWN MEDICATIONS-PT STATES HE HAS NO CLUE WHAT THE NAMES OF THE MEDICATIONS HE TAKES ARE-MEDICATIONS ENTERED ARE WHAT [facility] AND WHAT WAS ON PREVIOUSLY ENTERED MED LIST-NOTES ARE MADE IN THE PHARMACY COMMENTS WITH LAST FILL DATES-CINACALCET 30MG DAILY LAST FILLED 08/08/22 30D/S-HYDRALAZINE 50MG TAKE 100MG TID FILLED 07/20/22 90D/S-IMDUR ER 60MG DAILY FILLED 07/20/22 90D/S-MINOXIDIL 2.5MG TAKES 5MG BID FILLED 07/02/22 90D/S-ZOCOR 40MG DAILY FILLED 07/20/22 90D/S-[facility] STATES THE PT HAD A RX FOR LOKELMA BUT STATES THE PT NEVER GOT IT
[2022-12-14 09:08] LABS: Troponin 5 6HR 349.6 ng/L (0-15); Troponin 5 6HR Delta -2.4 ng/L (0-12)
--- NOTE | 2022-12-14 13:26 | PM.PN ---
Subjective Subjective: - Patient was seen this morning -He reports some chest discomfort, no fevers, no chills -No nausea, no vomiting -His abdomen is distended, he tells me that the last time he had a paracentesis they took off roughly 2 L Vitals/I&O/Wt Last Vital Signs Temp 98.3 F 12/14/22 07:00 Pulse 78 12/14/22 10:20 Resp 17 12/14/22 10:20 BP 126/73 12/14/22 10:20 Pulse Ox 99 12/14/22 10:20 O2 Del Method Room Air 12/14/22 07:00 12/13/22 12/14/22 12/14/22 22:59 06:59 14:59 Intake Total 300 / 300 200 / 200 Output Total 2700 / 2700 0 / 0 Balance -2400 / -2400 200 / 200 Weight last 48 hrs Weight 82.5 kg Weight 84.368 kg Weight 81.647 kg Physical Exam Const: COMMON NORMALS: no acute distress and patient oriented x3 Resp: COMMON NORMALS: normal respiratory effort, No retractions, No use of accessory muscles and clear to auscultation bilaterally AUSCULTATION: clear to auscultation bilaterally Cardio: COMMON NORMALS: regular rate, regular rhythm, S1 normal heart sound present and S2 normal heart sound present RATE: regular rate RHYTHM: regular rhythm HEART SOUNDS: S1 normal heart sound present and S2 normal heart sound present GI: OTHER: Abdomen is soft, distended, fluid wave present, good bowel sounds Extremity: COMMON NORMALS: no pedal edema Neuro: COMMON NORMALS: patient oriented x3 Psych: COMMON NORMALS: mental status grossly normal Data 12/14/22 02:38 12/14/22 08:06 Micro: Microbiology 12/14/22 05:33 Blood Culture - Preliminary Blood SPECIMEN COLLECTED 12/14/22 05:33 Blood Culture - Preliminary Blood SPECIMEN COLLECTED A&P Assessment and plan (1) Malaise: (2) Acute hyperkalemia: (3) Hypoglycemia: (4) End stage renal disease on dialysis: (5) Hypertension: (6) Anemia in chronic kidney disease: (7) Ascites: (8) GERD (gastroesophageal reflux disease): (9) Gout: (10) Tobacco use disorder: (11) NSTEMI (non-ST elevated myocardial infarction): (12) Chest pain: (13) Hypertensive urgency: Plan Hypertensive urgency -Currently on clonidine 0.1 twice daily -Coreg 12.5 twice daily -Imdur 30 mg once daily -Hydralazine 50 mg 3 times daily increase to 100 3 times daily -Minoxidil -Start Norvasc 10 mg once daily -Based on blood pressures we will upward titrate p.o. blood pressure medications -Of note patient's last few ER visits, were for hypertensive urgency NSTEMI -With complaints of chest pain -Serial EKGs, serial troponins, telemetry monitoring -6-hour troponin 349, -EKG no acute ST-T wave changes -Continue aspirin, statin, Coreg -Cardiac echo Hyperkalemia -Status post dialysis overnight, potassium 4.8 Cirrhosis of the liver, with ascites -Currently abdomen distended, hold off on paracentesis Hypothyroidism, continue levothyroxine Acute renal failure Plan for today blood pressure control will monitor for chest pain, cardiac echo, will consider stress testing based on clinical progress, spoke to patient, spoke to nephrology Attestations Medical Necessity Statement*: Patient requires hospitalization, inpatient, greater than 2 minutes, for hypertensive urgency, NSTEMI, hyperkalemia, Diagnoses Malaise R53.81 Acute hyperkalemia E87.5 Hypoglycemia E16.2 End stage renal disease on dialysis N18.6; Z99.2 Hypertension I10 Anemia in chronic kidney disease N18.9; D63.1 Ascites R18.8 GERD (gastroesophageal reflux disease) K21.9 Gout M10.9 Tobacco use disorder F17.200 NSTEMI (non-ST elevated myocardial infarction) I21.4 Chest pain R07.9 Hypertensive urgency I16.0
[2022-12-14] MEDS: hyDRALAzine 50 mg Tablet 100 MG PO ×2 (14:08→20:50)
[2022-12-14] MEDS: aspirin 81 mg EC Tablet PO (14:08)
[2022-12-14] MEDS: amlodipine 10 mg Tablet PO (14:08)
--- NOTE | 2022-12-14 14:13 | PM.PN ---
Subjective Subjective: no new issues, cannot confirm which outpatient medications he is taking. Denies taking a powder or liquid therefore not taking a potassium binder Vitals/I&O/Wt Last Vital Signs Temp 97.7 F 12/14/22 10:40 Pulse 72 12/14/22 14:00 Resp 32 H 12/14/22 13:30 BP 157/79 12/14/22 13:30 Pulse Ox 92 12/14/22 13:30 O2 Del Method Room Air 12/14/22 10:40 12/13/22 12/14/22 12/14/22 22:59 06:59 14:59 Intake Total 300 / 300 400 / 400 Output Total 2700 / 2700 0 / 0 Balance -2400 / -2400 400 / 400 Weight last 48 hrs Weight 82.5 kg Weight 84.368 kg Weight 81.647 kg Physical Exam Const: COMMON NORMALS: no acute distress and alert Neuro: SENSORIUM/ORIENTATION: Yes alert Data 12/14/22 02:38 12/14/22 08:06 Micro: Microbiology 12/14/22 05:33 Blood Culture - Preliminary Blood SPECIMEN COLLECTED 12/14/22 05:33 Blood Culture - Preliminary Blood SPECIMEN COLLECTED Other data: seen via telemedicine with assistance of RN at bedside A&P Assessment and plan (1) Acute hyperkalemia: resolved after HD this AM (2) End stage renal disease on dialysis: HD MWF. Discussed dialyzing 4x weekly to help with hyperkalemia and ascites; he declined (3) Hypertension: medications being adjusted (4) Anemia in chronic kidney disease: epogen, iron as needed at dialysis Attestations Medical Necessity Statement*: per primary service Time Spent in Patient Care: 16 - 35 minutes Coding Level of Care Code Acute Code for g Fwd Diagnoses Acute hyperkalemia E87.5 End stage renal disease on dialysis N18.6; Z99.2 Hypertension I10 Anemia in chronic kidney disease N18.9; D63.1
--- NOTE | 2022-12-14 18:08 | PC.NURSE ---
Uneventful shift. Patient rested in bed throughout the day, but has occaisonally gotten up to use the restroom. Recieved dialysis this morning and his potassium levels are within normal limits last check. COntinuing cardiac monitoring due to report of chest pain this morning.
[2022-12-14] MEDS: atorvastatin 40 mg Tablet PO (20:50)
[2022-12-14] MEDS: ondansetron 2 mg/ML SDV 2 mL 4 MG IVP (21:46)
[2022-12-15] VITALS (17 sets, daily range): BP systolic 101–163; BP diastolic 50–86; PULSE 79–97; RESP 14–39; TEMP 36.4–36.8; O2SAT 90–97
[2022-12-15] MEDS: heparin 5,000 unit/mL INJ 1 mL 5000 UNIT SUBCUT (00:37)
[2022-12-15 04:18] LABS: Basophils % 0.5 %; Eosinophils # 0.1 10^3/uL (0.0-0.8); Eosinophils % 1.8 %; Hemoglobin 11.3 g/dL (11.7-16.6); Lymphocytes # 1.2 10^3/uL (0.8-4.8); Lymphocytes % 16.6 %; Mean Corpuscular HGB Conc 32.3 g/dL (30.0-36.0); Mean Corpuscular Hemoglobin 31.3 pg (28.0-34.0); Mean Platelet Volume 9.4 fL (7.4-10.4); Monocytes # 0.7 10^3/uL (0.2-0.9); Monocytes % 9.5 %; Neutrophils # 5.22 10^3/uL (1.8-7.7); Neutrophils % 71.2 %; Nucleated Red Blood Cells % 0 %; Platelet Count 274 10^3/cmm (130-400); Red Blood Count 3.61 10^6/uL (4.1-5.3); Red Cell Distribution Width 15.1 % (12.1-15.1); White Blood Count 7.3 10^3/uL (4.0-10.0)
[2022-12-15 04:37] LABS: Anion Gap 17.8 (5-19); Blood Urea Nitrogen 14 mg/dL (6-20); Calcium 9.9 mg/dL (8.5-10.5); Carbon Dioxide 32 mmol/L (22-29); Chloride 91 mmol/L (98-107); Glomerular Filtration Rate 10.5 mL/min (90-130); Glucose 83 mg/dL (65-115); Magnesium 1.8 mg/dL (1.7-2.3); Osmolality Calculated 280 mOsm/kg (285-295); Potassium 5.8 mmol/L (3.5-5.1); Sodium 135 mmol/L (136-145)
[2022-12-15 04:43] LABS: Phosphorus 10.7 mg/dL (2.5-4.5)
--- NOTE | 2022-12-15 05:37 | PM.PN ---
Vitals/I&O/Wt Last Vital Signs Temp 97.7 F 12/14/22 10:40 Pulse 79 12/15/22 04:00 Resp 20 H 12/15/22 04:00 BP 150/78 12/15/22 04:00 Pulse Ox 95 12/15/22 03:00 O2 Del Method Room Air 12/14/22 16:20 12/14/22 12/14/22 12/15/22 14:59 22:59 06:59 Intake Total 400 / 400 50 / 450 100 / 550 Output Total 0 / 0 Balance 400 / 400 50 / 450 100 / 550 Weight last 48 hrs Weight 82.5 kg Weight 84.368 kg Weight 81.647 kg Data 12/15/22 03:55 12/15/22 03:55 Micro: Microbiology 12/14/22 05:33 Blood Culture - Preliminary Blood SPECIMEN COLLECTED 12/14/22 05:33 Blood Culture - Preliminary Blood SPECIMEN COLLECTED Other data: seen via telemedicine with assistance of RN at bedside A&P Assessment and plan (1) Acute hyperkalemia: improved after HD. potassium elevated again this AM. Rx sodium polystyrene sulfonate (2) End stage renal disease on dialysis: HD MWF. Discussed dialyzing 4x weekly to help with hyperkalemia and ascites; he declined (3) Hypertension: medications being adjusted (4) Anemia in chronic kidney disease: epogen, iron as needed at dialysis Coding Level of Care Code Acute Code for Chg Fwd Diagnoses Acute hyperkalemia E87.5 End stage renal disease on dialysis N18.6; Z99.2 Hypertension I10 Anemia in chronic kidney disease N18.9; D63.1
[2022-12-15 05:40] LABS: Glucose Point of Care 88 mg/dL (70-110)
[2022-12-15 05:40] LABS: Glucose Point of Care 97 mg/dL (70-110)
[2022-12-15 05:40] LABS: Glucose Point of Care 82 mg/dL (70-110)
[2022-12-15 05:40] LABS: Glucose Point of Care 83 mg/dL (70-110)
[2022-12-15 05:40] LABS: Glucose Point of Care 82 mg/dL (70-110)
[2022-12-15 05:40] LABS: Glucose Point of Care 88 mg/dL (70-110)
[2022-12-15 05:40] LABS: Glucose Point of Care 85 mg/dL (70-110)
[2022-12-15 05:40] LABS: Glucose Point of Care 130 mg/dL (70-110)
[2022-12-15 05:40] LABS: Glucose Point of Care 85 mg/dL (70-110)
[2022-12-15 05:40] LABS: Glucose Point of Care 70 mg/dL (70-110)
[2022-12-15 05:40] LABS: Glucose Point of Care 84 mg/dL (70-110)
[2022-12-15] MEDS: levothyroxine 150 mcg Tablet 75 MCG PO (06:57)
[2022-12-15 07:32] LABS: Glucose Point of Care 85 mg/dL (70-110)
[2022-12-15] MEDS: amlodipine 10 mg Tablet PO (09:11)
[2022-12-15] MEDS: sodium polystyrene sulfonate 15 gm/60 mL Btl PO (09:11)
[2022-12-15] MEDS: carvedilol 12.5 mg Tablet PO (09:11)
[2022-12-15] MEDS: allopurinol 100 mg Tablet PO (09:11)
[2022-12-15] MEDS: isosorbide mononitrate ER 30 mg Tablet PO (09:11)
[2022-12-15] MEDS: cholecalciferol (vitamin D3) 5,000 unit Tablet 5000 UNIT PO (09:12)
[2022-12-15] MEDS: sertraline 50 mg Tablet 25 MG PO (09:12)
[2022-12-15] MEDS: aspirin 81 mg EC Tablet PO (09:12)
[2022-12-15] MEDS: hyDRALAzine 50 mg Tablet 100 MG PO (10:47)
[2022-12-15] MEDS: minoxidil 10 mg Tablet 5 MG PO (10:47)
[2022-12-15] MEDS: lisinopril 20 mg Tablet PO (10:48)
[2022-12-15] MEDS: lactulose oral liq 20 gm/30 mL UDC 10 GM PO (10:48)
[2022-12-15] MEDS: cloNIDine 0.1 mg Tablet PO (10:48)
--- NOTE | 2022-12-15 11:18 | P.DS_ITS ---
Discharge Providers Date of Admission: 12/14/22 19:17 Date of Discharge: December 15, 2022 Attending Provider at Admission: Patricia Rees MD Attending Provider at Discharge: Bony Duarte MD Primary Care Provider: Randolph Ortiz MD Diagnoses at Discharge Discharge Diagnosis (1) Acute hyperkalemia: Status: Acute (2) End stage renal disease on dialysis: Status: Chronic (3) Hypertension: Status: Chronic (4) Anemia in chronic kidney disease: Status: Chronic Reason for Visit Reason for Visit: Weakness/ BP Hospital Course Hospital Course Navneet Savage is a 57 year old male with multiple chronic medical problems as noted below who presented to the emergency room with chief complaint of not feeling well.? He says that he feels like crap but is not really able to elucidate further what he means by that.? He was seen yesterday with elevated blood pressure and discharge.? He was tired at the time but indicates that things were significantly worse today.? Denied chest pain.? Denies acute difficulty breathing.? No vomiting or diarrhea.? Abdomen is not any bigger than usual.? Denies abdominal pain.? He gets weekly paracentesis with next appointment on Wednesday.? He gets dialysis Mondays, Wednesdays and Fridays and states that he has been compliant with his sessions.? No reports of any fever.? He has had a little bit of a sore throat but denies difficulty breathing or cough.? Just extremely tired and weak.? Denies any bleeding.? In the emergency room laboratory studies were done today.? Initial potassium was noted to be 8.7.? Repeat potassium was 8.8.? In talking with him he admits that he probably did not follow renal diet this weekend.? Twelve-lead EKG shows peaked T waves.? He is being admitted for further treatment and evaluation as indicated.? He has had similar presentations previously.? Blood pressures today are not as high as they often are when he presents. Shortly after my evaluation, patient had an episode of altered mental status, diaphoresis and was found to have hypoglycemia.? He had previously received insulin and D50 as part of management for his hyperkalemia with EKG changes.? Additional D50 was given.? Repeat blood sugar upon arrival to the ICU was 82.? Half an amp of D50 was given.? Not too long after this patient was much more alert.? Dialysis nurse has arrived and hemodialysis is being initiated. Patient was admitted to [facility] for acute hyperkalemia, requiring urgent dialysis, overall patient clinically improved, it was recommended for patient to receive dialysis 4 times a week, however he declined, potassium discharge 5.8, was given 1 dose of Kayexalate, patient was advised to see his primary care provider in 48 hours for recheck potassium, if he were to have any chest pain or palpitations to go to emergency room. He had NSTEMI during his hospitalization, had complaints of chest pain, echocardiogram showed EF of 55 to 60%, stress test was ordered however patient declined the morning of the test, as he did not want to receive stress testing. Discussed morbidity and mortality associated with NSTEMI, CAD, he voiced understanding, all questions answered, declined. I have discharged him on aspirin, statin with a close follow-up with cardiology as outpatient if he were to have any recurrent chest pain to go to the emergency room. Had hypertensive urgency during his hospitalization requiring adjustment of his blood pressure medications. Follow-up with primary care provider in 48 hours for recheck blood pressure. Physical Exam Const: COMMON NORMALS: no acute distress and patient oriented x3 Resp: COMMON NORMALS: normal respiratory effort, No retractions, No use of accessory muscles and clear to auscultation bilaterally AUSCULTATION: clear to auscultation bilaterally Cardio: COMMON NORMALS: regular rate, regular rhythm, S1 normal heart sound present and S2 normal heart sound present RATE: regular rate RHYTHM: regular rhythm HEART SOUNDS: S1 normal heart sound present and S2 normal heart sound present GI: OTHER: Abdomen soft, slightly distended, good bowel sounds in all quadrants Extremity: COMMON NORMALS: no pedal edema Neuro: COMMON NORMALS: patient oriented x3 Psych: COMMON NORMALS: mental status grossly normal Discharge Data Studies Completed and Pending Completed Studies During Hospitalization Category Date Time Status CXRP [XR chest 1V portable [id number]] Stat Exams 12/13/22 22:58 Completed CV. echo limited [id number] Routine Ultrasound 12/14/22 08:11 Completed Pending at discharge Category Date Time Status Sestamibi Stress Test Request Routine Exams 12/14/22 13:38 Ordered Blood Culture Routine Lab 12/14/22 05:33 Results Radiology Impressions Chest X-Ray 12/13/22 22:58 IMPRESSION: No evidence of acute cardiopulmonary disease. Laboratory Results WBC 7.3 10^3/uL (4.0-10.0) 12/15/22 03:55 RBC 3.61 10^6/uL (4.1-5.3) L 12/15/22 03:55 Hgb 11.3 g/dL (11.7-16.6) L 12/15/22 03:55 Hct 35.0 % (42.0-52.0) L 12/15/22 03:55 MCV 97.0 fl (80-94) H 12/15/22 03:55 MCH 31.3 pg (28.0-34.0) 12/15/22 03:55 MCHC 32.3 g/dL (30.0-36.0) 12/15/22 03:55 RDW 15.1 % (12.1-15.1) 12/15/22 03:55 Plt Count 274 10^3/cmm (130-400) 12/15/22 03:55 MPV 9.4 fL (7.4-10.4) 12/15/22 03:55 Neut % (Auto) 71.2 % 12/15/22 03:55 Lymph % (Auto) 16.6 % 12/15/22 03:55 [place] % (Auto) 9.5 % 12/15/22 03:55 Eos % (Auto) 1.8 % 12/15/22 03:55 Baso % (Auto) 0.5 % 12/15/22 03:55 Neut # (Auto) 5.22 10^3/uL (1.8-7.7) 12/15/22 03:55 Lymph # (Auto) 1.2 10^3/uL (0.8-4.8) 12/15/22 03:55 [place] # (Auto) 0.7 10^3/uL (0.2-0.9) 12/15/22 03:55 Eos # (Auto) 0.1 10^3/uL (0.0-0.8) 12/15/22 03:55 Baso # (Auto) 0.0 10^3/uL (0.0-0.1) 12/15/22 03:55 Nucleated RBC % (auto) 0 % 12/15/22 03:55 Nucleated RBCs # 0.0 /100WBC 12/15/22 03:55 Sodium 135 mmol/L (136-145) L 12/15/22 03:55 Potassium 5.8 mmol/L (3.5-5.1) H 12/15/22 03:55 Chloride 91 mmol/L (98-107) L 12/15/22 03:55 Carbon Dioxide 32 mmol/L (22-29) H 12/15/22 03:55 Anion Gap 17.8 (5-19) 12/15/22 03:55 BUN 14 mg/dL (6-20) 12/15/22 03:55 Creatinine 5.6 mg/dL (0.7-1.2) H* D 12/15/22 03:55 GFR Calculation 10.5 mL/min (90-130) L 12/15/22 03:55 Glucose 83 mg/dL (65-115) 12/15/22 03:55 POC Glucose 85 mg/dL (70-110) 12/15/22 07:23 Calculated Osmolality 280 mOsm/kg (285-295) L 12/15/22 03:55 Calcium 9.9 mg/dL (8.5-10.5) 12/15/22 03:55 Phosphorus 10.7 mg/dL (2.5-4.5) H* 12/15/22 03:55 Magnesium 1.8 mg/dL (1.7-2.3) 12/15/22 03:55 Total Bilirubin 0.3 mg/dL (0.15-1.2) 12/13/22 21:52 AST 12 U/L (0-40) 12/13/22 21:52 ALT < 5 U/L (0-41) 12/13/22 21:52 Alkaline Phosphatase 128 U/L (40-130) 12/13/22 21:52 Troponin T Baseline 352 ng/L (0-15) H* 12/14/22 01:45 Troponin T 120 Minute 325.4 ng/L (0-15) H 12/14/22 04:08 Delta Troponin T -26.6 ABS# (0-10) L 12/14/22 04:08 Troponin T Hi Sens 6Hr 349.6 ng/L (0-15) H 12/14/22 08:06 Troponin T Hi Sens 6Hr Delta -2.4 ng/L (0-12) L 12/14/22 08:06 Total Protein 6.1 g/dL (6.6-8.7) L 12/13/22 21:52 Albumin 3.5 g/dL (3.5-5.2) 12/13/22 21:52 Globulin 2.6 g/dL (1.3-4.6) 12/13/22 21:52 Hep Bs Antigen Non-reactive (Nonreactive) 12/13/22 21:52 Vitals Last Vital Signs Temp 98.3 F 12/15/22 07:19 Pulse 83 12/15/22 06:30 Resp 24 H 12/15/22 06:30 BP 148/84 12/15/22 10:48 Pulse Ox 95 12/15/22 03:00 O2 Del Method Room Air 12/14/22 16:20 Discharge Plan Discharge Patient Disposition: Home Condition: Stable Prescriptions: New aspirin 81 mg Tablet,Delayed Release (Dr/Ec) 81 mg PO DAILY 30 Days Qty: 30 0RF amlodipine 10 mg Tablet 10 mg PO DAILY 30 Days Qty: 30 0RF atorvastatin 40 mg Tablet 40 mg PO BEDTIME 30 Days Qty: 30 0RF Continued isosorbide mononitrate 60 mg tablet extended release 24 hr 60 mg PO DAILY simvastatin 40 mg tablet 40 mg PO DAILY cholecalciferol (vitamin D3) 125 mcg (5,000 unit) capsule 125 mcg PO DAILY sertraline 50 mg tablet 50 mg PO DAILY Qty: 90 0RF hydroxyzine HCl 25 mg tablet 25 mg PO QID PRN (Reason: itching) Qty: 120 3RF Rx Instructions: itching levothyroxine 75 mcg tablet 75 mcg PO DAILY Qty: 60 0RF allopurinol 100 mg Tablet 100 mg PO DAILY cinacalcet 30 mg tablet 30 mg PO DAILY minoxidil 2.5 mg tablet 5 mg PO BID hydralazine 50 mg tablet 100 mg PO TID sucralfate 1 gram tablet 1 g PO Q6H PRN (Reason: unknown) hydroxyzine HCl 50 mg tablet 50 mg PO BEDTIME PRN (Reason: Itching) Auryxia 210 mg iron tablet 2 tab PO TID RenaPlex-D 800 mcg-12.5 mg -2,000 unit tablet 1 tab PO DAILY trazodone 50 mg Tablet 25 - 50 mg PO BEDTIME PRN (Reason: Sleep) lisinopril 40 mg tablet 40 mg PO DAILY lactulose 10 gram/15 mL solution See Rx Instructions .ROUTE .COMPLEX Rx Instructions: TAKE 15ML BY MOUTH IN THE MORNING ON NON-DIALYSIS DAYS (WEDNESDAY,WEDNESDAY,WEDNESDAY & WEDNESDAY) Changed carvedilol 25 mg tablet 12.5 mg PO BID 30 Days Qty: 30 0RF clonidine HCl 0.2 mg tablet 0.1 mg PO BID 30 Days Qty: 30 0RF Discharge Orders: Discharge Order (Routine); Ordered 12/15/22 Ordered By: Bony Duarte Referrals: Dora Mustafa MD [Physician] - 2 weeks Randolph Ortiz MD [Primary Care Provider] - 1-3 days Discharge Diet: Cardiac Discharge Activity: Resume usual activity Patient Instructions: Hypertension, Chronic Kidney Disease (DC), Opioid Safety Activity Restrictions/Additional Instructions: - Please follow-up with dialysis -If you have chest pain please go to emergency room -See primary care provider in the next 48 hours -See cardiology in 1 week Discharge Attestations Time Spent in Discharge Care*: greater than 30 min Quality Metrics Clinical Quality Measures [ No reported AMI, CVA or VTE this stay] Coding Level of Care Code 07822 Total time (in minutes) for Discharge: 45 Diagnoses Acute hyperkalemia E87.5 End stage renal disease on dialysis N18.6; Z99.2 Hypertension I10 Anemia in chronic kidney disease N18.9; D63.1
--- NOTE | 2022-12-15 11:54 | PC.NURSE ---
Discharged patient. Ptient is alert and riented to person, place, time, and situation. Has been frequently ambulating in room and feels comfortable driving himself home, he has a vehicle here and drove himself to the hospital initially. Discharge assesment completed. New medication and upcoming appointment education provided. Reminded patient that he has a dialysis appointment tommorow. Patient taken out to vehicle using wheelchair.
== END 2022-12-15 11:56 | disposition home or self-care (01) | DRG 280 ==
LOC: ER 22:57 → ICU 12-14 00:23
PROVIDERS: Internal Medicine; Admitting Provider Hospitalist; Emergency Provider Emergency Medicine; PCP Family Medicine; Visit Provider Family Medicine
DX: I12.0 Hypertensive chronic kidney disease with stage 5 chronic kidney disease or end stage renal disease; N18.6 End stage renal disease; N17.9 Acute kidney failure, unspecified; R18.8 Other ascites; Q61.3 Polycystic kidney, unspecified; E87.5 Hyperkalemia; Z99.2 Dependence on renal dialysis; Z79.891 Long term (current) use of opiate analgesic; D63.1 Anemia in chronic kidney disease; Z86.73 Personal history of transient ischemic attack (TIA), and cerebral infarction without residual deficits; K21.9 Gastro-esophageal reflux disease without esophagitis; M10.9 Gout, unspecified; E03.9 Hypothyroidism, unspecified; F32.9 Major depressive disorder, single episode, unspecified; M54.17 Radiculopathy, lumbosacral region; F17.210 Nicotine dependence, cigarettes, uncomplicated; K74.60 Unspecified cirrhosis of liver; I16.0 Hypertensive urgency; F12.90 Cannabis use, unspecified, uncomplicated; E16.2 Hypoglycemia, unspecified; R94.31 Abnormal electrocardiogram [ECG] [EKG]; I21.4 Non-ST elevation (NSTEMI) myocardial infarction
CPT/HCPCS: 36415; 36416; 71045; 80048; 80053; 82962; 83735; 84100; 84132; 84484; 85025; 87040; 87340; 90935; 93005; 93308; 94640; 96361; 96372; 96374; 96375; 96376; 99284; 99285; G0378; J0360; J0612; J1644; J1815; J2405; J7613; Q3014

== ENCOUNTER 2022-12-20 02:00 | Emergency (ER) | payer MEDICARE, MEDICAID, SELFPAY ==
[2022-12-20 02:19] VITALS: BP 136/71; PULSE 72; RESP 20; TEMP 36.6; O2SAT 95; BMI 28.1
--- NOTE | 2022-12-20 02:34 | XRR_ITS ---
PROCEDURE INFORMATION: Exam: XR Chest Exam date and time: 12/20/2022 2:45 AM Age: 57 years old Clinical indication: Shortness of breath; Patient HX: C/O SOB. TECHNIQUE: Imaging protocol: Radiologic exam of the chest. Views: 1 view. COMPARISON: CR (CHEST, ) 12/13/2022 11:00 PM FINDINGS: Lungs: Unremarkable. No consolidation. Pleural spaces: Unremarkable. No pleural effusion. No pneumothorax. Heart/Mediastinum: Unremarkable. No cardiomegaly. Vasculature: Calcification of the thoracic aorta and/or great vessels consistent with atherosclerotic vessel disease. Bones/joints: Unremarkable. XR/XR chest 1V portable [id number] IMPRESSION: No acute findings.
[2022-12-20 02:35] VITALS: BP 121/59; PULSE 79; RESP 20; O2SAT 93
--- NOTE | 2022-12-20 02:45 | ED_ITS ---
HPI - Recheck/Abnormal Lab/Rx General: Chief Complaint: Recheck/Abnormal Lab/Rx Stated Complaint: body aches, not feeling well Time Seen by Provider: 12/20/22 02:23 Source: patient History of Present Illness: 57-year-old male with end-stage renal disease well-known to the emergency department service. He presents with feeling ill. No other specific comp laints. He had a normal dialysis on Wednesday. He states he last had paracentesis about 3 weeks ago. He had a recent hospitalization for hyperkalemia requiring urgent dialysis. no fever MD complaint: other Initial visit (ago): hour(s) Context: other Associated symptoms: other Treatments prior to arrival: other Review of Systems Const: Denies: fever(s) or chills ENMT: Denies: throat pain Card: Denies: chest pain or palpitations Resp: Reports: dyspnea and non-productive cough; Denies: productive cough GI: Reports: nausea; Denies: abdominal pain or vomiting PFS ED PFSH: Medical History Anemia in chronic kidney disease Ascites gets regular paracentesis Bilateral hydronephrosis Chronic anemia CVA (cerebral vascular accident) Dilated aortic root End stage renal disease on dialysis GERD (gastroesophageal reflux disease) Gout History of stroke Hypertension Hypothyroidism Incomplete bladder emptying Major depressive disorder Neuropathy, lumbosacral (radicular) Polycystic kidney disease Right bundle branch block (RBBB) on electrocardiogram (ECG) Surgical History AV fistula left arm History of colonoscopy 2019 at [facility] History of surgical procedure Peritoneal dialysis catheter placement by Dr. Kamara 2015 S/P hemodialysis catheter insertion (03/13/20) 23cm long exchanged right IJ Removed on 06/11/2020 Family History Mother Chronic kidney disease (CKD) Stroke Father Cancer lung Brother Hypertension Denies family history of Diabetes CAD (coronary artery disease) Clotting disorder Dementia Hyperlipidemia Psychiatric illness Anesthesia complication Bleeding disorder Lung disease Social History Smoking and tobacco status: current every day smoker cigarettes Packs smoked per day: 1 [ Other cigarette details: Half a pack per day for last 20-30 years] Alcohol intake: never Substance/Drug Use: current Substance/Drug use frequency: few times a week Marital status: Number of children: 1 Current occupational status: disabled Current gender identity: Male Agree to transfusion: Yes Physical Exam Const: COMMON NORMALS: no acute distress GENERAL APPEARANCE: cooperative; not ill appearing and not frail appearing HENMT: COMMON NORMALS: normocephalic, atraumatic and Normal external nose present HEAD & SCALP: normocephalic and atraumatic FACE & SINUS: normal facial exam and face symmetric NOSE: Normal external nose present Eye: COMMON NORMALS: Equal, round and reactive pupils present and EOMs intact bilaterally PUPIL: Yes Equal, round and reactive pupils present Neck/C-Spine: GENERAL: Yes trachea midline Chest: CHEST: Yes Symmetrical chest wall rise Resp: COMMON NORMALS: normal respiratory effort, No retractions, No use of accessory muscles and clear to auscultation bilaterally AUSCULTATION: clear to auscultation bilaterally Cardio: COMMON NORMALS: regular rate and regular rhythm RATE: regular rate RHYTHM: regular rhythm GI: COMMON NORMALS: Soft to palpation INSPECTION: Yes abdominal distension PALPATION: Yes Soft to palpation Extremity: GENERAL: Yes edema Neuro: FINA COMA SCALE: document GCS findings Fina coma scale eye opening: Spontaneous Fina coma scale verbal response: Orientated Fina coma scale motor response: Obey commands Hewitt coma scale total score: 15 SENSORY EXAM: Yes extremities (intact) Psych: COMMON NORMALS: speech normal SPEECH: Yes normal speech Skin: COMMON NORMALS: no rashes or lesions noted GENERAL SKIN EXAM: no rashes or lesions noted Course Vital Signs: Vital signs: Vital Signs Temperature 97.8 F 12/20/22 02:19 Pulse Rate 79 12/20/22 02:35 Respiratory Rate 20 H 12/20/22 02:35 Blood Pressure 121/59 12/20/22 02:35 Pulse Oximetry 93 12/20/22 02:35 Oxygen Delivery Me thod Room Air 12/20/22 02:35 MDM - Recheck/Abnormal Lab/Rx Medical Decision Making Patient is resting comfortably on exam. Blood pressure 121/59. Saturations 93% up to 95% on room air. Hemoglobin is 10. Potassium is 6. Creatinine is 6.2. Chest x-ray is nonacute. He feels improved after 0.5 mg of Ativan IV, and Zofran. He will be allowed home. Dialysis on Wednesday. Return if worsening. Lab Data 12/20/22 02:55 12/20/22 02:55 Radiology Impressions Chest X-Ray 12/20/22 02:34 IMPRESSION: No acute findings. Laboratory Results WBC 9.1 10^3/uL (4.0-10.0) 12/20/22 02:55 RBC 3.24 10^6/uL (4.1-5.3) L 12/20/22 02:55 Hgb 10.1 g/dL (11.7-16.6) L 12/20/22 02:55 Hct 31.3 % (42.0-52.0) L 12/20/22 02:55 MCV 96.6 fl (80-94) H 12/20/22 02:55 MCH 31.2 pg (28.0-34.0) 12/20/22 02:55 MCHC 32.3 g/dL (30.0-36.0) 12/20/22 02:55 RDW 14.5 % (12.1-15.1) 12/20/22 02:55 Plt Count 214 10^3/cmm (130-400) 12/20/22 02:55 MPV 9.1 fL (7.4-10.4) 12/20/22 02:55 Neut % (Auto) 64.7 % 12/20/22 02:55 Lymph % (Auto) 16.8 % 12/20/22 02:55 Isabella % (Auto) 11.6 % 12/20/22 02:55 Eos % (Auto) 6.3 % 12/20/22 02:55 Baso % (Auto) 0.3 % 12/20/22 02:55 Neut # (Auto) 5.90 10^3/uL (1.8-7.7) 12/20/22 02:55 Lymph # (Auto) 1.5 10^3/uL (0.8-4.8) 12/20/22 02:55 Isabella # (Auto) 1.1 10^3/uL (0.2-0.9) H 12/20/22 02:55 Eos # (Auto) 0.6 10^3/uL (0.0-0.8) 12/20/22 02:55 Baso # (Auto) 0.0 10^3/uL (0.0-0.1) 12/20/22 02:55 Nucleated RBC % (auto) 0 % 12/20/22 02:55 Nucleated RBCs # 0.0 /100WBC 12/20/22 02:55 Sodium 139 mmol/L (136-145) 12/20/22 02:55 Potassium 6.2 mmol/L (3.5-5.1) H 12/20/22 02:55 Chloride 96 mmol/L (98-107) L 12/20/22 02:55 Carbon Dioxide 28 mmol/L (22-29) 12/20/22 02:55 Anion Gap 21.2 (5-19) H 12/20/22 02:55 BUN 25 mg/dL (6-20) H 12/20/22 02:55 Creatinine 6.1 mg/dL (0.7-1.2) H* 12/20/22 02:55 GFR Calculation 9.6 mL/min (90-130) L 12/20/22 02:55 Glucose 76 mg/dL (65-115) 12/20/22 02:55 Calculated Osmolality 291 mOsm/kg (285-295) 12/20/22 02:55 Calcium 9.6 mg/dL (8.5-10.5) 12/20/22 02:55 Phosphorus 9.7 mg/dL (2.5-4.5) H* 12/20/22 02:55 Magnesium 1.8 mg/dL (1.7-2.3) 12/20/22 02:55 Total Bilirubin 0.2 mg/dL (0.15-1.2) 12/20/22 02:55 AST 14 U/L (0-40) 12/20/22 02:55 ALT 8 U/L (0-41) 12/20/22 02:55 Alkaline Phosphatase 116 U/L (40-130) 12/20/22 02:55 Total Protein 5.3 g/dL (6.6-8.7) L 12/20/22 02:55 Albumin 3.3 g/dL (3.5-5.2) L 12/20/22 02:55 Globulin 2.0 g/dL (1.3-4.6) 12/20/22 02:55 Discharge Plan Discharge Patient Disposition: Home Clinical Impression: End stage renal disease on dialysis Condition: Stable Prescriptions: No Action isosorbide mononitrate 60 mg tablet extended release 24 hr 60 mg PO DAILY simvastatin 40 mg tablet 40 mg PO DAILY cholecalciferol (vitamin D3) 125 mcg (5,000 unit) capsule 125 mcg PO DAILY sertraline 50 mg tablet 50 mg PO DAILY Qty: 90 0RF hydroxyzine HCl 25 mg tablet 25 mg PO QID PRN (Reason: itching) Qty: 120 3RF Rx Instructions: itching levothyroxine 75 mcg tablet 75 mcg PO DAILY Qty: 60 0RF allopurinol 100 mg Tablet 100 mg PO DAILY cinacalcet 30 mg tablet 30 mg PO DAILY minoxidil 2.5 mg tablet 5 mg PO BID hydralazine 50 mg tablet 100 mg PO TID sucralfate 1 gram tablet 1 g PO Q6H PRN (Reason: unknown) hydroxyzine HCl 50 mg tablet 50 mg PO BEDTIME PRN (Reason: Itching) Auryxia 210 mg iron tablet 2 tab PO TID RenaPlex-D 800 mcg-12.5 mg -2,000 unit tablet 1 tab PO DAILY trazodone 50 mg Tablet 25 - 50 mg PO BEDTIME PRN (Reason: Sleep) lisinopril 40 mg tablet 40 mg PO DAILY lactulose 10 gram/15 mL solution See Rx Instructions .ROUTE .COMPLEX Rx Instructions: TAKE 15ML BY MOUTH IN THE MORNING ON NON-DIALYSIS DAYS (WEDNESDAY,WEDNESDAY,WEDNESDAY & WEDNESDAY) aspirin 81 mg Tablet,Delayed Release (Dr/Ec) 81 mg PO DAILY 30 Days Qty: 30 0RF amlodipine 10 mg Tablet 10 mg PO DAILY 30 Days Qty: 30 0RF atorvastatin 40 mg Tablet 40 mg PO BEDTIME 30 Days Qty: 30 0RF carvedilol 25 mg tablet 12.5 mg PO BID 30 Days Qty: 30 0RF clonidine HCl 0.2 mg tablet 0.1 mg PO BID 30 Days Qty: 30 0RF Discharge Orders: Discharge ED (Routine); Ordered 12/20/22 Ordered By: Thomas Smart Referrals: Randolph Ortiz MD [Primary Care Provider] - Patient Instructions: End Stage Kidney Disease (ED), Opioid Safety, Pain Management Activity Restrictions/Additional Instructions: Report for your next scheduled dialysis. Return for vomiting liquids, fever greater than 100, other concerning symptoms. Coding Level of Care Code ED Personalized Living Manager for Eric Sandhu
[2022-12-20 03:03] LABS: Basophils % 0.3 %; Eosinophils # 0.6 10^3/uL (0.0-0.8); Eosinophils % 6.3 %; Hematocrit 31.3 % (42.0-52.0); Hemoglobin 10.1 g/dL (11.7-16.6); Lymphocytes # 1.5 10^3/uL (0.8-4.8); Lymphocytes % 16.8 %; Mean Corpuscular HGB Conc 32.3 g/dL (30.0-36.0); Mean Corpuscular Hemoglobin 31.2 pg (28.0-34.0); Mean Corpuscular Volume 96.6 fl (80-94); Mean Platelet Volume 9.1 fL (7.4-10.4); Monocytes # 1.1 10^3/uL (0.2-0.9); Monocytes % 11.6 %; Neutrophils % 64.7 %; Nucleated Red Blood Cells % 0 %; Platelet Count 214 10^3/cmm (130-400); Red Blood Count 3.24 10^6/uL (4.1-5.3); Red Cell Distribution Width 14.5 % (12.1-15.1); White Blood Count 9.1 10^3/uL (4.0-10.0)
[2022-12-20] MEDS: ondansetron 2 mg/ML SDV 2 mL 4 MG IVP (03:10)
[2022-12-20] MEDS: LORazepam 2 mg/mL INJ 1 mL 0.5 MG IVP (03:10)
[2022-12-20 03:27] LABS: Alanine Aminotransferase 8 U/L (0-41); Albumin Level 3.3 g/dL (3.5-5.2); Alkaline Phosphatase 116 U/L (40-130); Anion Gap 21.2 (5-19); Aspartate Amino Transferase 14 U/L (0-40); Blood Urea Nitrogen 25 mg/dL (6-20); Calcium 9.6 mg/dL (8.5-10.5); Carbon Dioxide 28 mmol/L (22-29); Chloride 96 mmol/L (98-107); Glomerular Filtration Rate 9.6 mL/min (90-130); Glucose 76 mg/dL (65-115); Magnesium 1.8 mg/dL (1.7-2.3); Osmolality Calculated 291 mOsm/kg (285-295); Potassium 6.2 mmol/L (3.5-5.1); Sodium 139 mmol/L (136-145); Total Bilirubin 0.2 mg/dL (0.15-1.2); Total Protein 5.3 g/dL (6.6-8.7)
[2022-12-20 03:32] LABS: Phosphorus 9.7 mg/dL (2.5-4.5)
== END 2022-12-20 04:11 | disposition home or self-care (01) ==
PROVIDERS: Emergency Provider Emergency Medicine; PCP Family Medicine
DX: I12.0 Hypertensive chronic kidney disease with stage 5 chronic kidney disease or end stage renal disease (principal); N18.6 End stage renal disease; Z99.2 Dependence on renal dialysis; Z79.82 Long term (current) use of aspirin; Z86.73 Personal history of transient ischemic attack (TIA), and cerebral infarction without residual deficits; F17.210 Nicotine dependence, cigarettes, uncomplicated
CPT/HCPCS: 71045; 80053; 83735; 84100; 85025; 96374; 96375; 99285; J2060; J2405

== ENCOUNTER 2022-12-20 22:15 | Observation (INO) | payer MEDICARE, MEDICAID, SELFPAY ==
[2022-12-20 22:47] VITALS: BP 195/113; PULSE 82; RESP 18; TEMP 36.6; O2SAT 97; BMI 28.1
--- NOTE | 2022-12-20 23:04 | XRR_ITS ---
PROCEDURE INFORMATION: Exam: XR Chest Exam date and time: 12/20/2022 11:11 PM Age: 57 years old Clinical indication: Shortness of breath; Additional info: Weakness TECHNIQUE: Imaging protocol: Radiologic exam of the chest. Views: 1 view. COMPARISON: CR (CHEST, ) 12/20/2022 2:45 AM FINDINGS: Lungs: Unremarkable. No consolidation. Pleural spaces: Unremarkable. No pleural effusion. No pneumothorax. Heart/Mediastinum: Cardiomegaly. Bones/joints: Unremarkable. XR/XR chest 1V portable [id number] IMPRESSION: Cardiomegaly, negative for infiltrate.
[2022-12-20] MEDS: ondansetron 2 mg/ML SDV 2 mL 4 MG IVP (23:30)
[2022-12-20 23:32] LABS: Basophils % 0.5 %; Eosinophils # 0.6 10^3/uL (0.0-0.8); Eosinophils % 6.2 %; Hematocrit 33.2 % (42.0-52.0); Hemoglobin 10.5 g/dL (11.7-16.6); Lymphocytes # 1.2 10^3/uL (0.8-4.8); Lymphocytes % 13.6 %; Mean Corpuscular HGB Conc 31.6 g/dL (30.0-36.0); Mean Corpuscular Hemoglobin 30.5 pg (28.0-34.0); Mean Corpuscular Volume 96.5 fl (80-94); Mean Platelet Volume 9.6 fL (7.4-10.4); Monocytes # 0.9 10^3/uL (0.2-0.9); Monocytes % 10.5 %; Neutrophils # 6.08 10^3/uL (1.8-7.7); Neutrophils % 68.7 %; Nucleated Red Blood Cells % 0 %; Platelet Count 265 10^3/cmm (130-400); Red Blood Count 3.44 10^6/uL (4.1-5.3); Red Cell Distribution Width 14.4 % (12.1-15.1); White Blood Count 8.8 10^3/uL (4.0-10.0)
[2022-12-20] MEDS: LORazepam 2 mg/mL INJ 1 mL IVP (23:32)
--- NOTE | 2022-12-20 23:39 | ECG_ITS ---
[facility] Test Date: 2022-12-20 Pat Name: Navneet Savage Department: Room: Gender: Male Independent Living Instructor: : 1965 Requested By: Thomas Richardson Order Number: [id number] Nate MD: Saurabh Fitzpatrick M.D. Measurements Intervals [place] Rate: 81 P: 0 [place]: 0 QRS: -47 QRSD: 112 T: 137 QT: 372 QTc: 432 Interpretive Statements SUPRAVENTRICULAR RHYTHM LEFT ANTERIOR FASCICULAR BLOCK [QRS AXIS <= -45, QR IN I, RS IN II] SEPTAL MYOCARDIAL INFARCTION , PROBABLY OLD [40+ ms Q WAVE IN V1/V2] Compared to ECG 12/14/2022 08:14:37 Supraventricular rhythm now present Left anterior fascicular block now present Myocardial infarct finding now present Sinus rhythm no longer present Sinus arrhythmia no longer present Left-axis deviation no longer present Left ventricular hypertrophy no longer present Electronically Signed On 12-21-2022 8:28:46 CDT by Saurabh Fitzpatrick M.D. [email or web address]
[2022-12-20 23:52] LABS: Alanine Aminotransferase 7 U/L (0-41); Albumin Level 3.2 g/dL (3.5-5.2); Alkaline Phosphatase 113 U/L (40-130); Anion Gap 21.6 (5-19); Aspartate Amino Transferase 12 U/L (0-40); Blood Urea Nitrogen 32 mg/dL (6-20); Calcium 9.7 mg/dL (8.5-10.5); Carbon Dioxide 27 mmol/L (22-29); Chloride 98 mmol/L (98-107); Globulin 2.4 g/dL (1.3-4.6); Glucose 80 mg/dL (65-115); Magnesium 1.7 mg/dL (1.7-2.3); Osmolality Calculated 294 mOsm/kg (285-295); Sodium 139 mmol/L (136-145); Total Bilirubin 0.3 mg/dL (0.15-1.2); Total Protein 5.6 g/dL (6.6-8.7)
[2022-12-20 23:55] LABS: Phosphorus 10.7 mg/dL (2.5-4.5); Potassium 7.6 mmol/L (3.5-5.1)
[2022-12-21] VITALS (53 sets, daily range): BP systolic 140–220; BP diastolic 68–125; PULSE 56–96; RESP 14–40; TEMP 35.3–37.1; O2SAT 72–100
[2022-12-21 00:50] LABS: Glucose Point of Care 89 mg/dL (70-110)
[2022-12-21] MEDS: morphine 4 mg/mL SDV 1 mL IVP (00:56)
[2022-12-21] MEDS: dextrose 50% syringe 50 mL IVP ×4 (00:59→11:17)
[2022-12-21] MEDS: dextrose 5%-sod chloride 0.9% 1,000 ML 30 ML IV (00:59)
[2022-12-21] MEDS: sodium bicarbonate 1 mEq/mL SDV 50mL 50 MEQ IVP (01:01)
[2022-12-21] MEDS: insulin regular-human 100 units/1 mL 8 UNIT IVP (01:01)
--- NOTE | 2022-12-21 01:27 | P.HP_ITS ---
Providers/Chief Complaint Admitting Physician: Dylan Whitaker MD Primary Care Provider: Randolph Ortiz MD Chief Complaint: body aches History of Present Illness Navneet Savage is a 57 year old male with a past medical history significant for polycystic kidney disease, hypertension, GERD, gout, and ESRD on HD who presents with generalized unwellness and body aches. Upon my evaluation, patient is in a stuporous state and unable to provide history. HPI obtained from collateral information and chart review. Patient reportedly complained of diffuse body aches for which he was seen yesterday in the ED for the same complaints. Today, he was found to have markedly elevated potassium for which was treated with pharmacological treatment. His mentation reportedly worsened following administration of insulin with transient drop in blood glucose level. This happened prior to my evaluation. ED provider reportedly contacted nephrology to request emergent dialysis. Review of Systems Narrative: Unable to obtain a complete review of systems due to patient being in stuporous state. Medications/Allergies Home Medications Medication Instructions Recorded Confirmed Last Taken Type allopurinol 100 mg tablet 100 mg PO DAILY 11/27/19 12/14/22 12/11/22 History hydralazine 50 mg tablet 100 mg PO TID 04/14/22 12/14/22 12/11/22 History minoxidil 2.5 mg tablet 5 mg PO BID 04/14/22 12/14/22 12/11/22 History isosorbide mononitrate 60 mg 60 mg PO DAILY 05/07/22 12/14/22 12/11/22 History tablet,extended release 24 hr simvastatin 40 mg tablet 40 mg PO DAILY 05/07/22 12/14/22 12/11/22 History cinacalcet 30 mg tablet 30 mg PO DAILY 05/12/22 12/14/22 12/11/22 History cholecalciferol (vitamin D3) 125 125 mcg PO DAILY 06/18/22 12/14/22 12/11/22 History mcg (5,000 unit) capsule ferric citrate 210 mg iron tablet 2 tab PO TID 06/22/22 12/14/22 12/11/22 History (Auryxia) vit B,C-folic ac 800 mcg-zinc 12.5 1 tab PO DAILY 06/22/22 12/14/22 12/11/22 History mg-selen-D3 2,000 unit-vit E tablet (RenaPlex-D) sertraline 50 mg tablet 50 mg PO DAILY #90 tabs 09/23/22 12/14/22 12/11/22 Rx sucralfate 1 gram tablet 1 g PO Q6H PRN unknown 10/06/22 12/14/22 12/11/22 History hydroxyzine HCl 25 mg tablet 25 mg PO QID PRN itching #120 tabs 10/15/22 12/14/22 12/11/22 Rx levothyroxine 75 mcg tablet 75 mcg PO DAILY #60 tabs 10/15/22 12/14/22 12/11/22 Rx hydroxyzine HCl 50 mg tablet 50 mg PO BEDTIME PRN Itching 11/13/22 12/14/22 12/11/22 History lactulose 10 gram/15 mL oral See Rx Instructions .Route .COMPLEX 12/14/22 12/14/22 Unknown History solution lisinopril 40 mg tablet 40 mg PO DAILY 12/14/22 12/14/22 Unknown History trazodone 50 mg tablet 25 - 50 mg PO BEDTIME PRN Sleep 12/14/22 12/14/22 Unknown History amlodipine 10 mg tablet 10 mg PO DAILY 30 days #30 tabs 12/15/22 Unknown Rx aspirin 81 mg tablet,delayed 81 mg PO DAILY 30 days #30 tabs 12/15/22 Unknown Rx release atorvastatin 40 mg tablet 40 mg PO BEDTIME 30 days #30 tabs 12/15/22 Unknown Rx carvedilol 25 mg tablet 12.5 mg PO BID 30 days #30 tabs 12/15/22 12/14/22 12/11/22 Rx clonidine HCl 0.2 mg tablet 0.1 mg PO BID 30 days #30 tabs 12/15/22 12/14/22 12/11/22 Rx Allergies Allergy/AdvReac Type Severity Reaction Status Date / Time Penicillins Allergy ALGY-Anaphy Verified 12/13/22 21:53 laxis Sulfa (Sulfonamide Allergy Unknown Verified 12/13/22 21:53 Antibiotics) fluoxetine [From Prozac] AdvReac Mild stomach Verified 12/13/22 21:53 upset PFSH Acute PFSH: Medical History Anemia in chronic kidney disease Ascites gets regular paracentesis Bilateral hydronephrosis Chronic anemia CVA (cerebral vascular accident) Dilated aortic root End stage renal disease on dialysis GERD (gastroesophageal reflux disease) Gout History of stroke Hypertension Hypothyroidism Incomplete bladder emptying Major depressive disorder Neuropathy, lumbosacral (radicular) Polycystic kidney disease Right bundle branch block (RBBB) on electrocardiogram (ECG) Surgical History AV fistula left arm History of colonoscopy 2019 at [facility] History of surgical procedure Peritoneal dialysis catheter placement by Dr. Kamara 2015 S/P hemodialysis catheter insertion (03/13/20) 23cm long exchanged right IJ Removed on 06/11/2020 Family History Mother Chronic kidney disease (CKD) Stroke Father Cancer lung Brother Hypertension Denies family history of Diabetes CAD (coronary artery disease) Clotting disorder Dementia Hyperlipidemia Psychiatric illness Anesthesia complication Bleeding disorder Lung disease Social History Smoking and tobacco status: current every day smoker cigarettes Packs smoked per day: 1 [ Other cigarette details: Half a pack per day for last 20-30 years] Alcohol intake: never Substance/Drug Use: current Substance/Drug use frequency: few times a week Marital status: Number of children: 1 Current occupational status: disabled Current gender identity: Male Agree to transfusion: Yes Vitals/I&O/Wt Last Vital Signs Temp 98 F 12/20/22 22:47 Pulse 68 12/21/22 01:21 Resp 16 12/21/22 01:21 BP 165/75 12/21/22 01:21 Pulse Ox 94 12/21/22 01:21 Weight last 48 hrs Weight 81.647 kg Physical Exam Narrative: General: Patient is in a stuporous state. Frail and cachetic. Head: Temporal wasting. Neck: No JVD. Cardiovascular: RRR. No gallops. No murmurs. N Lungs: Breath sounds are diminished in bilateral bases, no use of accessory muscles, no crackles or wheezes. Skin: No jaundice. Abdomen: Normal bowel sounds, abdomen soft. Extremities: No cyanosis or clubbing. Musculoskeletal: Poor muscular development. No swollen or erythematous joints. Neurological: Stuporous state.. No myoclonus. Data 12/20/22 23:16 12/20/22 23:16 A&P Assessment and plan (1) Acute hyperkalemia: Life threatening hyperkalemia Status post pharmacological tx in ED Continue checking renal panel Q2H ED provider agreed to arrange for nephro to evalaute for emergent dialysis Telemetry monitoring (2) Malaise: Likely related to hyperkalemia and underlying multiple comorbidities (3) End stage renal disease on dialysis: Nephrology consulted, appreciate recommendations (4) Tobacco use disorder: Would benefit from cessation (5) Altered mental status: Reportedly alert prior to change in blood glucose Continue to monitor Check blood gas May need imaging if he does not improve as expected Plan DVT ppx: SCD Code status: Assume Full Attestations 2 Medical Necessity Statement*: Expected hospitalization not to cross two midnights. Coding Level of Care Code Acute Code for Chg Fwd Diagnoses Acute hyperkalemia E87.5 Malaise R53.81 End stage renal disease on dialysis N18.6; Z99.2 Tobacco use disorder F17.200 Altered mental status R41.82
[2022-12-21 01:42] LABS: Glucose Point of Care 89 mg/dL (70-110)
--- NOTE | 2022-12-21 01:42 | ED_ITS ---
HPI - Weakness General: Chief complaint: Weakness Stated complaint: body aches Time Seen by Provider: 12/20/22 22:36 Source: patient History of Present Illness: 57-year-old gentleman with end-stage renal disease well-known to the emergency department service. He presents with not feeling well. I saw him the same time yesterday morning with similar symptoms. He continues to not feel well. He is somewhat nauseated. He is achy all over he says. He is due for dialysis later today (Wednesday). MD Complaint: generalized weakness Migration: none Associated symptoms: Reports nausea; Denies chest pain, fever(s) or vomiting Review of Systems Const: Denies: fever(s) Eyes: Denies: change in vision ENMT: Denies: throat pain Card: Denies: chest pain or palpitations Resp: Reports: dyspnea; Denies: productive cough or non-productive cough GI: Reports: abdominal pain and nausea; Denies: vomiting Musc: Reports: back pain PFSH ED PFSH: Medical History Anemia in chronic kidney disease Ascites gets regular paracentesis Bilateral hydronephrosis Chronic anemia CVA (cerebral vascular accident) Dilated aortic root End stage renal disease on dialysis GERD (gastroesophageal reflux disease) Gout History of stroke Hypertension Hypothyroidism Incomplete bladder emptying Major depressive disorder Neuropathy, lumbosacral (radicular) Polycystic kidney disease Right bundle branch block (RBBB) on electrocardiogram (ECG) Surgical History AV fistula left arm History of colonoscopy 2019 at [facility] History of surgical procedure Peritoneal dialysis catheter placement by Dr. Kamara 2016 S/P hemodialysis catheter insertion (03/13/20) 23cm long exchanged right IJ Removed on 06/11/2020 Family History Mother Chronic kidney disease (CKD) Stroke Father Cancer lung Brother Hypertension Denies family history of Diabetes CAD (coronary artery disease) Clotting disorder Dementia Hyperlipidemia Psychiatric illness Anesthesia complication Bleeding disorder Lung disease Social History Smoking and tobacco status: current every day smoker cigarettes Packs smoked per day: 1 [ Other cigarette details: Half a pack per day for last 20-30 years] Alcohol intake: never Substance/Drug Use: current Substance/Drug use frequency: few times a week Marital status: Number of children: 1 Current occupational status: disabled Current gender identity: Male Agree to transfusion: Yes Physical Exam Const: GENERAL APPEARANCE: cooperative, ill appearing (Mildly) and frail appearing HENMT: COMMON NORMALS: normocephalic and atraumatic HEAD & SCALP: normocephalic and atraumatic Eye: COMMON NORMALS: Equal, round and reactive pupils present and EOMs intact bilaterally PUPIL: Yes Equal, round and reactive pupils present Neck/C-Spine: GENERAL: Yes trachea midline Chest: CHEST: Yes Symmetrical chest wall rise Resp: COMMON NORMALS: clear to auscultation bilaterally EFFORT & INSPECTION: Yes tachypneic AUSCULTATION: clear to auscultation bilaterally Cardio: COMMON NORMALS: regular rate and regular rhythm RATE: regular rate RHYTHM: regular rhythm GI: COMMON NORMALS: Soft to palpation INSPECTION: Yes abdominal distension PALPATION: Yes Soft to palpation and No Tenderness to palpation present (GI) Extremity: GENERAL: Yes edema (Mild) Neuro: FINA COMA SCALE: document GCS findings Fina coma scale eye opening: Spontaneous [place] coma scale verbal response: Confused [place] coma scale motor response: Obey commands Fina coma scale total score: 14 Course Vital Signs: Vital signs: Vital Signs Temperature 98 F 12/21/22 03:13 Pulse Rate 68 12/21/22 03:13 Respiratory Rate 16 12/21/22 03:13 Blood Pressure 165/75 12/21/22 03:13 Pulse Oximetry 94 12/21/22 03:13 MDM - Weakness Medical Decision Making Room air oxygen saturations were marginal on arrival, although appropriate. His hemoglobin is 10-1/2 which is stable. His creatinine is 7.1 which is stable. However, his potassium is up to 7.6. He is given insulin, D50, and bicarbonate for this. The patient was also started on D5 water hopefully to prevent hypoglycemia after insulin was given for hyperkalemia. He experienced hypoglycemia anyway, and removed his own IV. He was quite diaphoretic with some mental status changes. This improved after administration of IV D50 and glucagon. Spoke with nephrology. They asked to repeat BMP after administration of the above. His potassium is down to 7.1. They agree to consult for dialysis. Spoke with hospitalist, who agrees to admission. Blood pressures improved. We will watch sugar closely. Lab Data 12/20/22 23:16 12/21/22 01:57 Radiology Impressions Chest X-Ray 12/20/22 23:04 IMPRESSION: Cardiomegaly, negative for infiltrate. Laboratory Results WBC 8.8 10^3/uL (4.0-10.0) 12/20/22 23:16 RBC 3.44 10^6/uL (4.1-5.3) L 12/20/22 23:16 Hgb 10.5 g/dL (11.7-16.6) L 12/20/22 23:16 Hct 33.2 % (42.0-52.0) L 12/20/22 23:16 MCV 96.5 fl (80-94) H 12/20/22 23:16 MCH 30.5 pg (28.0-34.0) 12/20/22 23:16 MCHC 31.6 g/dL (30.0-36.0) 12/20/22 23:16 RDW 14.4 % (12.1-15.1) 12/20/22 23:16 Plt Count 265 10^3/cmm (130-400) 12/20/22 23:16 MPV 9.6 fL (7.4-10.4) 12/20/22 23:16 Neut % (Auto) 68.7 % 12/20/22 23:16 Lymph % (Auto) 13.6 % 12/20/22 23:16 [place] % (Auto) 10.5 % 12/20/22 23:16 Eos % (Auto) 6.2 % 12/20/22 23:16 Baso % (Auto) 0.5 % 12/20/22 23:16 Neut # (Auto) 6.08 10^3/uL (1.8-7.7) 12/20/22 23:16 Lymph # (Auto) 1.2 10^3/uL (0.8-4.8) 12/20/22 23:16 [place]ary # (Auto) 0.9 10^3/uL (0.2-0.9) 12/20/22 23:16 Eos # (Auto) 0.6 10^3/uL (0.0-0.8) 12/20/22 23:16 Baso # (Auto) 0.0 10^3/uL (0.0-0.1) 12/20/22 23:16 Nucleated RBC % (auto) 0 % 12/20/22 23:16 Nucleated RBCs # 0.0 /100WBC 12/20/22 23:16 Sodium 138 mmol/L (136-145) 12/21/22 01:57 Potassium 7.1 mmol/L (3.5-5.1) H* 12/21/22 01:57 Chloride 97 mmol/L (98-107) L 12/21/22 01:57 Carbon Dioxide 28 mmol/L (22-29) 12/21/22 01:57 Anion Gap 20.1 (5-19) H 12/21/22 01:57 BUN 29 mg/dL (6-20) H 12/21/22 01:57 Creatinine 7.6 mg/dL (0.7-1.2) H* 12/21/22 01:57 GFR Calculation 7.4 mL/min (90-130) L 12/21/22 01:57 Glucose 41 mg/dL (65-115) L 12/21/22 01:57 POC Glucose 89 mg/dL (70-110) 12/21/22 01:36 Calculated Osmolality 289 mOsm/kg (285-295) 12/21/22 01:57 Calcium 9.5 mg/dL (8.5-10.5) 12/21/22 01:57 Phosphorus 10.7 mg/dL (2.5-4.5) H* 12/20/22 23:16 Magnesium 1.7 mg/dL (1.7-2.3) 12/20/22 23:16 Total Bilirubin 0.3 mg/dL (0.15-1.2) 12/20/22 23:16 AST 12 U/L (0-40) 12/20/22 23:16 ALT 7 U/L (0-41) 12/20/22 23:16 Alkaline Phosphatase 113 U/L (40-130) 12/20/22 23:16 Total Protein 5.6 g/dL (6.6-8.7) L 12/20/22 23:16 Albumin 3.2 g/dL (3.5-5.2) L 12/20/22 23:16 Globulin 2.4 g/dL (1.3-4.6) 12/20/22 23:16 Critical Care Time Critical Care Time: Critical Care Time: Yes Total Critical Care Time: 35 Attestation: This case had a high probability of a clinically significant, sudden, or life threatening deterioration of this patient's condition which required my full and direct attention, intervention and personal management. 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
[2022-12-21 02:18] LABS: Glucose Point of Care 42 mg/dL (70-110)
[2022-12-21 02:19] LABS: Anion Gap 20.1 (5-19); Blood Urea Nitrogen 29 mg/dL (6-20); Calcium 9.5 mg/dL (8.5-10.5); Carbon Dioxide 28 mmol/L (22-29); Chloride 97 mmol/L (98-107); Glomerular Filtration Rate 7.4 mL/min (90-130); Glucose 41 mg/dL (65-115); Osmolality Calculated 289 mOsm/kg (285-295); Sodium 138 mmol/L (136-145)
[2022-12-21 02:25] LABS: Potassium 7.1 mmol/L (3.5-5.1)
[2022-12-21] MEDS: glucagon 1 mg/mL KIT 1 mL IM (02:27)
[2022-12-21 02:56] LABS: Glucose Point of Care 113 mg/dL (70-110)
--- NOTE | 2022-12-21 03:10 | PC.NURSE ---
Pt at doorway trying to walk. RN and tech into room to assess pt. Pt was diaphoretic, confused, and weak. BG check was 43. MD notified and in room. Pt removed IV when trying to stand. This site was dressed and another PIV was placed. Pt was placed back in bed. Glucagon was given IM and D50 amp was administered via MD orders. Pt BG was 113 on arrival to unit.
[2022-12-21 03:55] LABS: Glucose Point of Care 61 mg/dL (70-110)
[2022-12-21 04:00] LABS: ABG PCO2 49.6 mmHg (35-45); Arterial Blood Gas Hematocrit 36.3 % (42-52); Base Excess ABG 4.9 mmol/L (-2.0-2.0); Blood Gas Allen Test Pos; Blood Gas Sample Type Arterial; Carboxyhemoglobin 1.6 %THgb (0.4-20.1); HCO3 ABG 30.7 mmol/L (22-26); HGB O2 Sat 93.5 % (95-100); Ionized Calcium Level - ABG 1.3 mmol/L (1.1-1.4); Methemoglobin 0.5 % (0.4-1.5); Oxygen Saturation ABG 95.5; Potassium Level - ABG 7.1 mmol/L (3.5-5.0); Total Hemoglobin 11.8 g/dL (14-18)
[2022-12-21 04:01] LABS: Blood Urea Nitrogen 29 mg/dL (6-20); Calcium 9.5 mg/dL (8.5-10.5); Carbon Dioxide 27 mmol/L (22-29); Chloride 98 mmol/L (98-107); Glomerular Filtration Rate 7.6 mL/min (90-130); Glucose 41 mg/dL (65-115); Sodium 140 mmol/L (136-145)
[2022-12-21 04:01] LABS: Blood Gas Sample Site Radial, right; Oxygen Device NC
[2022-12-21 04:29] LABS: Glucose Point of Care 48 mg/dL (70-110)
[2022-12-21 04:33] LABS: Glucose Point of Care 133 mg/dL (70-110)
[2022-12-21 04:40] LABS: Phosphorus 9.9 mg/dL (2.5-4.5)
[2022-12-21 05:21] LABS: Glucose Point of Care 86 mg/dL (70-110)
[2022-12-21 05:23] LABS: Albumin Level 3.3 g/dL (3.5-5.2); Anion Gap 20.6 (5-19); Blood Urea Nitrogen 30 mg/dL (6-20); Calcium 9.7 mg/dL (8.5-10.5); Carbon Dioxide 28 mmol/L (22-29); Chloride 97 mmol/L (98-107); Glomerular Filtration Rate 7.4 mL/min (90-130); Glucose 90 mg/dL (65-115); Sodium 138 mmol/L (136-145)
[2022-12-21 05:29] LABS: Phosphorus 10.4 mg/dL (2.5-4.5); Potassium 7.6 mmol/L (3.5-5.1)
[2022-12-21 05:56] LABS: Glucose Point of Care 106 mg/dL (70-110)
--- NOTE | 2022-12-21 08:11 | P.CONIM_ITS ---
Providers/Reason For Consult Consulting Physician/Specialty*: kommana/Nephrology Reason for Consult*: ESRD Attending Physician: Dylan Whitaker MD Primary Care Provider: Randolph Ortiz MD History of Present Illness History of Present Illness Navneet Savage is a 57 year old male Patient is a 57-year-old male with past medical history of polycystic kidney disease, end-stage renal disease on dialysis per Wednesday schedule, missed dialysis on Wednesday, hypertension, GERD, gout presented to the hospital due to generalized weakness and body aches. In the emergency department patient was noted to have stable vital signs but has elevated potassium of 7.6 and creatinine of 7.1. Patient emergently being dialyzed currently. Review of Systems Narrative: other ROS negative Medications/Allergies Home Medications Medication Instructions Recorded Confirmed Last Taken Type allopurinol 100 mg tablet 100 mg PO DAILY 11/27/19 12/14/22 12/11/22 History hydralazine 50 mg tablet 100 mg PO TID 04/14/22 12/14/22 12/11/22 History minoxidil 2.5 mg tablet 5 mg PO BID 04/14/22 12/14/22 12/11/22 History isosorbide mononitrate 60 mg 60 mg PO DAILY 05/07/22 12/14/22 12/11/22 History tablet,extended release 24 hr simvastatin 40 mg tablet 40 mg PO DAILY 05/07/22 12/14/22 12/11/22 History cinacalcet 30 mg tablet 30 mg PO DAILY 05/12/22 12/14/22 12/11/22 History cholecalciferol (vitamin D3) 125 125 mcg PO DAILY 06/18/22 12/14/22 12/11/22 History mcg (5,000 unit) capsule ferric citrate 210 mg iron tablet 2 tab PO TID 06/22/22 12/14/22 12/11/22 History (Auryxia) vit B,C-folic ac 800 mcg-zinc 12.5 1 tab PO DAILY 06/22/22 12/14/22 12/11/22 History mg-selen-D3 2,000 unit-vit E tablet (RenaPlex-D) sertraline 50 mg tablet 50 mg PO DAILY #90 tabs 09/23/22 12/14/22 12/11/22 Rx sucralfate 1 gram tablet 1 g PO Q6H PRN unknown 10/06/22 12/14/22 12/11/22 History hydroxyzine HCl 25 mg tablet 25 mg PO QID PRN itching #120 tabs 10/15/22 07/09/1312/11/22 Rx hydroxyzine HCl 50 mg tablet 50 mg PO BEDTIME PRN Itching 11/13/22 12/14/22 12/11/22 History lactulose 10 gram/15 mL oral See Rx Instructions .Route .COMPLEX 12/14/22 12/14/22 Unknown History solution lisinopril 40 mg tablet 40 mg PO DAILY 12/14/22 12/14/22 Unknown History trazodone 50 mg tablet 25 - 50 mg PO BEDTIME PRN Sleep 12/14/22 12/14/22 Unknown History amlodipine 10 mg tablet 10 mg PO DAILY 30 days #30 tabs 12/15/22 Unknown Rx aspirin 81 mg tablet,delayed 81 mg PO DAILY 30 days #30 tabs 12/15/22 Unknown Rx release atorvastatin 40 mg tablet 40 mg PO BEDTIME 30 days #30 tabs 12/15/22 Unknown Rx carvedilol 25 mg tablet 12.5 mg PO BID 30 days #30 tabs 12/15/22 12/14/22 12/11/22 Rx clonidine HCl 0.2 mg tablet 0.1 mg PO BID 30 days #30 tabs 12/15/22 12/14/22 12/11/22 Rx levothyroxine 75 mcg tablet 75 mcg PO DAILY #60 tabs 12/21/22 Unknown Rx Allergies Allergy/AdvReac Type Severity Reaction Status Date / Time Penicillins Allergy ALGY-Anaphy Verified 12/13/22 21:53 laxis Sulfa (Sulfonamide Allergy Unknown Verified 12/13/22 21:53 Antibiotics) fluoxetine [From Prozac] AdvReac Mild stomach Verified 12/13/22 21:53 upset PFSH Acute PFSH: Medical History Anemia in chronic kidney disease Ascites gets regular paracentesis Bilateral hydronephrosis Chronic anemia CVA (cerebral vascular accident) Dilated aortic root End stage renal disease on dialysis GERD (gastroesophageal reflux disease) Gout History of stroke Hypertension Hypothyroidism Incomplete bladder emptying Major depressive disorder Neuropathy, lumbosacral (radicular) Polycystic kidney disease Right bundle branch block (RBBB) on electrocardiogram (ECG) Surgical History AV fistula left arm History of colonoscopy 2019 at [facility] History of surgical procedure Peritoneal dialysis catheter placement by Dr. Kamara 2015 S/P hemodialysis catheter insertion (03/13/20) 23cm long exchanged right IJ Removed on 06/11/2020 Family History Mother Chronic kidney disease (CKD) Stroke Father Cancer lung Brother Hypertension Denies family history of Diabetes CAD (coronary artery disease) Clotting disorder Dementia Hyperlipidemia Psychiatric illness Anesthesia complication Bleeding disorder Lung disease Social History Smoking and tobacco status: current every day smoker cigarettes Packs smoked per day: 1 [ Other cigarette details: Half a pack per day for last 20-30 years] Alcohol intake: never Substance/Drug Use: current Substance/Drug use frequency: few times a week Marital status: Number of children: 1 Current occupational status: disabled Current gender identity: Male Agree to transfusion: Yes Vitals/I&O/Wt Last Vital Signs Temp 98.6 F 12/21/22 07:41 Pulse 60 12/21/22 07:41 Resp 18 12/21/22 07:41 BP 150/88 12/21/22 07:41 Pulse Ox 95 12/21/22 06:00 O2 Del Method Nasal Cannula 12/21/22 03:28 12/20/22 12/21/22 12/21/22 22:59 06:59 14:59 Intake Total 72 / 72 Balance 72 / 72 Weight last 48 hrs Weight 89.721 kg Weight 81.647 kg Physical Exam Narrative: Lethargic PEERLA , S1 S 2 RRR per report Lungs Clear per report No edema Data 12/20/22 23:16 12/21/22 04:52 A&P Assessment and plan (1) End stage renal disease on dialysis: 1. ESRD : Missed HD and now presented with Hyperkalemia and volume overload. - HD today ,and may need hD again tomorrow - 2GM and 1500 ml fluid restriction 2. Hyperkalemia : K elevated , Low K diet 3. HTN : BP elevated 4. Anemia : Hb 10.5 , RADHA if hb < 10 Pt evaluated using audiovisual cart. Time spent 45 min Consult Attestations Medical Necessity Statement: per medicine Coding Level of Care Code Acute Code for Chg Fwd Diagnoses End stage renal disease on dialysis N18.6; Z99.2
[2022-12-21 08:14] LABS: Hepatitis B Core AB, Total Non-Reactive (Nonreactive); Hepatitis B Surface AB 64.9 (11.5-1000); Hepatitis B Surface Antigen Non-Reactive (Nonreactive)
--- NOTE | 2022-12-21 09:42 | PC.PHAR ---
Addendum entered by Ayla Barba 12/21/22 12:50: pt unable to verify medications-medications entered are from what was on pts discharge on 12/15/22 and ext med history - notes are made in the pharmacy comments-see pharmacy note from 12/14/22 Original Note: pt not in room-nurse on medsurg states thinks pt went to gi
[2022-12-21 09:46] LABS: Albumin Level 3.3 g/dL (3.5-5.2); Anion Gap 16.6 (5-19); Blood Urea Nitrogen 13 mg/dL (6-20); Calcium 9.8 mg/dL (8.5-10.5); Carbon Dioxide 31 mmol/L (22-29); Chloride 95 mmol/L (98-107); Glomerular Filtration Rate 18.1 mL/min (90-130); Glucose 58 mg/dL (65-115); Phosphorus 6.2 mg/dL (2.5-4.5); Potassium 4.6 mmol/L (3.5-5.1); Sodium 138 mmol/L (136-145)
[2022-12-21] MEDS: cloNIDine 0.1 mg Tablet PO ×2 (11:03→18:09)
[2022-12-21] MEDS: carvedilol 25 mg Tablet 12.5 MG PO ×2 (11:03→18:05)
[2022-12-21 11:06] LABS: Glucose Point of Care 61 mg/dL (70-110)
--- NOTE | 2022-12-21 11:17 | PM.MISC ---
Miscellaneous Note Note: Transfer patient to ICU He is hypertensive Lethargic and fatigued Low sugar Potassium improved Patient is stating that he is still an active smoker 1 pack/day Fatigue lethargic although able to answer my question S1, S2 Hypertensive Abdomen soft Left arm fistula Hypertensive emergency added hydralazine, add lisinopril, IV hydralazine push continue clonidine Hyperglycemia: Check A1c, start D10 Transfer patient to ICU Given 1 dose of steroid and D50 amp Continue dialysis Patient will stay in the hospital for 1 more day Full code Patient stated that he lives alone at home
[2022-12-21] MEDS: hydrocortisone 100 mg/2 mL SDV 50 MG IVP (11:22)
[2022-12-21] MEDS: dextrose 10% 1,000 ML 100 ML IV (11:23)
--- NOTE | 2022-12-21 11:30 | PC.NURSE ---
Transfer Note Patient transferred to ICU room 7 from [facility] via bed. Handoff received from ARNALDO Blackwell. Patient oriented to environment and equipment. Covering service notified. Orders reviewed and will continue to monitor. Patient transferred on 4LNC and is alert/oriented x4 upon arrival to ICU. No wounds noted at this time. All patient belongings including hat, boots, phone, glasses and pants brought down with patient and placed at bedside.
[2022-12-21] MEDS: lisinopril 20 mg Tablet 40 MG PO (12:26)
[2022-12-21 13:24] LABS: Estmated Average Glucose 68
[2022-12-21] MEDS: hyDRALAzine 50 mg Tablet PO ×2 (15:28→21:02)
[2022-12-21 17:30] LABS: Glucose Point of Care 93 mg/dL (70-110)
[2022-12-22] VITALS (90 sets, daily range): BP systolic 102–185; BP diastolic 49–108; PULSE 60–92; RESP 15–38; TEMP 36.4–36.6; O2SAT 99
[2022-12-22] MEDS: hyDROXYzine 25 mg Capsule 50 MG PO (01:08)
[2022-12-22 03:09] LABS: Basophils % 0.3 %; Eosinophils # 0.2 10^3/uL (0.0-0.8); Eosinophils % 2.8 %; Hemoglobin 10.8 g/dL (11.7-16.6); Lymphocytes # 1.4 10^3/uL (0.8-4.8); Lymphocytes % 18.1 %; Mean Corpuscular HGB Conc 31.8 g/dL (30.0-36.0); Mean Corpuscular Hemoglobin 30.8 pg (28.0-34.0); Mean Corpuscular Volume 96.9 fl (80-94); Mean Platelet Volume 9.5 fL (7.4-10.4); Monocytes # 0.7 10^3/uL (0.2-0.9); Monocytes % 8.8 %; Neutrophils % 69.7 %; Nucleated Red Blood Cells % 0 %; Platelet Count 257 10^3/cmm (130-400); Red Blood Count 3.51 10^6/uL (4.1-5.3); Red Cell Distribution Width 14.4 % (12.1-15.1); White Blood Count 7.9 10^3/uL (4.0-10.0)
[2022-12-22 03:26] LABS: Blood Urea Nitrogen 19 mg/dL (6-20); Calcium 10.2 mg/dL (8.5-10.5); Carbon Dioxide 30 mmol/L (22-29); Chloride 95 mmol/L (98-107); Glomerular Filtration Rate 10.3 mL/min (90-130); Glucose 73 mg/dL (65-115); Osmolality Calculated 281 mOsm/kg (285-295); Sodium 135 mmol/L (136-145)
[2022-12-22 03:30] LABS: Anion Gap 16.3 (5-19); Potassium 6.3 mmol/L (3.5-5.1)
[2022-12-22] MEDS: hyDRALAzine 20 mg/mL INJ 1 mL 10 MG IVP (03:39)
[2022-12-22] MEDS: sodium polystyrene sulfonate 15 gm/60 mL Btl 30 GM PO (05:30)
--- NOTE | 2022-12-22 05:53 | PC.NURSE ---
Patient Refused continuous oxygen monitoring at night. Patient has agreed to to let this nurse check periodically.
[2022-12-22] MEDS: hyDRALAzine 50 mg Tablet PO (08:19)
[2022-12-22] MEDS: lisinopril 20 mg Tablet 40 MG PO (08:19)
[2022-12-22] MEDS: cloNIDine 0.1 mg Tablet PO (08:19)
[2022-12-22] MEDS: carvedilol 25 mg Tablet 12.5 MG PO (08:19)
[2022-12-22] MEDS: heparin, porcine 1,000 unit/mL INJ 10 mL 10000 UNIT INTRACATH (08:57)
[2022-12-22] MEDS: heparin, porcine 1,000 unit/mL INJ 10 mL 1000 UNIT IV (08:57)
--- NOTE | 2022-12-22 10:03 | PM.PN ---
Subjective Subjective: Transferred to ICU due to Hypoglycemia Medications: Reviewed: Yes Vitals/I&O/Wt Last Vital Signs Temp 97.9 F 12/22/22 08:07 Pulse 80 12/22/22 08:30 Resp 23 H 12/22/22 08:30 BP 185/91 12/22/22 08:30 Pulse Ox 99 12/22/22 05:30 O2 Del Method Nasal Cannula 12/22/22 05:30 O2 Flow Rate 2 12/22/22 05:30 12/21/22 12/22/22 12/22/22 22:59 06:59 14:59 Intake Total 1160 / 1940 240 / 2180 360 / 360 Balance 1160 / -860 240 / -620 360 / 360 Weight last 48 hrs Weight 85.729 kg Weight 87.4 kg Weight 89.721 kg Weight 81.647 kg Physical Exam Narrative: awake PEERLA , S1 S 2 RRR per report Lungs Clear per report No edema Data 12/22/22 02:50 12/22/22 02:50 A&P Assessment and plan (1) End stage renal disease on dialysis: 1. ESRD : Missed HD and now presented with Hyperkalemia and volume overload. - HD today - 2GM and 1500 ml fluid restriction 2. Hyperkalemia : K elevated , Low K diet , hd today 3. HTN : BP elevated 4. Anemia : Hb 10.5 , RADHA if hb < 10 Pt evaluated using audiovisual cart. Time spent 45 min Attestations Medical Necessity Statement*: per medicine Coding Level of Care Code Acute Code for Chg Fwd Diagnoses End stage renal disease on dialysis N18.6; Z99.2
--- NOTE | 2022-12-22 10:24 | PM.DCS ---
Discharge Providers Date of Admission: 12/21/22 02:13 Date of Discharge: December 22, 2022 Attending Provider at Admission: Dylan Whitakre MD Attending Provider at Discharge: Deborah Singh MD Primary Care Provider: Randolph Ortiz MD Diagnoses at Discharge Discharge Diagnosis (1) End stage renal disease on dialysis: Status: Chronic Reason for Visit Reason for Visit: body aches Hospital Course Hospital Course 57-year-old male who present to the hospital for generalized weakness and fatigue hypertensive emergency and hypokalemia nephro was consulted patient was dialyzed same day, he was admitted to ICU for management of hyperglycemia hypertensive emergency, his blood sugar improved, antihypertensive regimen was readjusted that improved his blood pressure patient remained hemodynamically stable, awake and alert, no stroke related symptoms, patient got dialyzed on 12/22 as well, asymptomatic, next dialysis session is tomorrow patient has been counseled to not miss his dialysis sessions, will request another BMP after dialysis before his discharge today Patient is agreeable with the plan Physical Exam Narrative: Awake and alert Signs of fluid overload improving Nonfocal neuro exam GCS 15 Ate breakfast Getting dialysis at the time of my evaluation in the morning in ICU on Room air Discharge Data Studies Completed and Pending Completed Studies During Hospitalization Category Date Time Status XR chest 1V portable [id number] Stat Exams 12/20/22 23:04 Completed Pending at discharge Category Date Time Status Potassium Timed Lab 12/22/22 10:20 Ordered Radiology Impressions Chest X-Ray 12/20/22 23:04 IMPRESSION: Cardiomegaly, negative for infiltrate. Laboratory Results WBC 7.9 10^3/uL (4.0-10.0) 12/22/22 02:50 RBC 3.51 10^6/uL (4.1-5.3) L 12/22/22 02:50 Hgb 10.8 g/dL (11.7-16.6) L 12/22/22 02:50 Hct 34.0 % (42.0-52.0) L 12/22/22 02:50 MCV 96.9 fl (80-94) H 12/22/22 02:50 MCH 30.8 pg (28.0-34.0) 12/22/22 02:50 MCHC 31.8 g/dL (30.0-36.0) 12/22/22 02:50 RDW 14.4 % (12.1-15.1) 12/22/22 02:50 Plt Count 257 10^3/cmm (130-400) 12/22/22 02:50 MPV 9.5 fL (7.4-10.4) 12/22/22 02:50 Neut % (Auto) 69.7 % 12/22/22 02:50 Lymph % (Auto) 18.1 % 12/22/22 02:50 Floyd % (Auto) 8.8 % 12/22/22 02:50 Eos % (Auto) 2.8 % 12/22/22 02:50 Baso % (Auto) 0.3 % 12/22/22 02:50 Neut # (Auto) 5.50 10^3/uL (1.8-7.7) 12/22/22 02:50 Lymph # (Auto) 1.4 10^3/uL (0.8-4.8) 12/22/22 02:50 Floyd # (Auto) 0.7 10^3/uL (0.2-0.9) 12/22/22 02:50 Eos # (Auto) 0.2 10^3/uL (0.0-0.8) 12/22/22 02:50 Baso # (Auto) 0.0 10^3/uL (0.0-0.1) 12/22/22 02:50 Nucleated RBC % (auto) 0 % 12/22/22 02:50 Nucleated RBCs # 0.0 /100WBC 12/22/22 02:50 Specimen Type Arterial 12/21/22 03:48 Sample Site Radial, right 12/21/22 03:48 ABG pH 7.40 (7.35-7.45) 12/21/22 03:48 ABG pCO2 49.6 mmHg (35-45) H 12/21/22 03:48 ABG pO2 80.0 mmHg (80.0-100.0) 12/21/22 03:48 ABG HCO3 30.7 mmol/L (22-26) H 12/21/22 03:48 ABG O2 Saturation 95.5 12/21/22 03:48 ABG Base Excess 4.9 mmol/L (-2.0-2.0) H 12/21/22 03:48 Denis Test Pos 12/21/22 03:48 A-a O2 Gradient 15.0 mmHg (5-10) H 12/21/22 03:48 Hematocrit 36.3 % (42-52) L 12/21/22 03:48 Hgb O2 Saturation 93.5 % (95-100) L 12/21/22 03:48 Carboxyhemoglobin 1.6 %THgb (0.4-20.1) 12/21/22 03:48 Methemoglobin 0.5 % (0.4-1.5) 12/21/22 03:48 Total Hemoglobin 11.8 g/dL (14-18) L 12/21/22 03:48 Sodium 136.0 mmol/L (131-143) 12/21/22 03:48 Potassium 7.1 mmol/L (3.5-5.0) H 12/21/22 03:48 Glucose 49.0 mg/dL (70-115) L 12/21/22 03:48 Ionized Calcium 1.3 mmol/L (1.1-1.4) 12/21/22 03:48 O2 Delivery Device Nc 12/21/22 03:48 O2 Liters/Min 4.0 % 12/21/22 03:48 FiO2 36.0 % 12/21/22 03:48 Senior Electrical Design Engineer ID Alewe 12/21/22 03:48 Sodium 135 mmol/L (136-145) L 12/22/22 02:50 Potassium 6.3 mmol/L (3.5-5.1) H 12/22/22 02:50 Chloride 95 mmol/L (98-107) L 12/22/22 02:50 Carbon Dioxide 30 mmol/L (22-29) H 12/22/22 02:50 Anion Gap 16.3 (5-19) 12/22/22 02:50 BUN 19 mg/dL (6-20) 12/22/22 02:50 Creatinine 5.7 mg/dL (0.7-1.2) H* D 12/22/22 02:50 GFR Calculation 10.3 mL/min (90-130) L 12/22/22 02:50 Glucose 73 mg/dL (65-115) 12/22/22 02:50 POC Glucose 93 mg/dL (70-110) 12/21/22 17:26 Estimat Average Glucose 68 12/20/22 23:16 Hemoglobin A1c 4.0 % (4.0-6.0) 12/20/22 23:16 Calculated Osmolality 281 mOsm/kg (285-295) L 12/22/22 02:50 Calcium 10.2 mg/dL (8.5-10.5) 12/22/22 02:50 Phosphorus 6.2 mg/dL (2.5-4.5) H 12/21/22 08:58 Magnesium 1.7 mg/dL (1.7-2.3) 12/20/22 23:16 Total Bilirubin 0.3 mg/dL (0.15-1.2) 12/20/22 23:16 AST 12 U/L (0-40) 12/20/22 23:16 ALT 7 U/L (0-41) 12/20/22 23:16 Alkaline Phosphatase 113 U/L (40-130) 12/20/22 23:16 Total Protein 5.6 g/dL (6.6-8.7) L 12/20/22 23:16 Albumin 3.3 g/dL (3.5-5.2) L 12/21/22 08:58 Globulin 2.4 g/dL (1.3-4.6) 12/20/22 23:16 Hep Bs Antigen Non-reactive (Nonreactive) 12/21/22 04:52 Hep Bs Antibody 64.9 (11.5-1000) 12/21/22 04:52 Hep B Core Total Ab Non-reactive (Nonreactive) 12/21/22 04:52 Vitals Last Vital Signs Temp 97.9 F 12/22/22 08:07 Pulse 60 12/22/22 10:10 Resp 23 H 12/22/22 09:15 BP 102/58 12/22/22 10:10 Pulse Ox 99 12/22/22 05:30 O2 Del Method Nasal Cannula 12/22/22 05:30 O2 Flow Rate 2 12/22/22 05:30 Discharge Plan Discharge Patient Disposition: Home Condition: Fair Prescriptions: New Lokelma 5 gram powder in packet 5 g PO DAILY Qty: 11 0RF Continued simvastatin 40 mg tablet 40 mg PO DAILY cholecalciferol (vitamin D3) 125 mcg (5,000 unit) capsule 125 mcg PO DAILY sertraline 50 mg tablet 50 mg PO DAILY Qty: 90 0RF levothyroxine 75 mcg tablet 75 mcg PO DAILY Qty: 60 0RF allopurinol 100 mg Tablet 100 mg PO DAILY cinacalcet 30 mg tablet 30 mg PO DAILY sucralfate 1 gram tablet 1 g PO Q6H PRN (Reason: unknown) Auryxia 210 mg iron tablet 2 tab PO TID RenaPlex-D 800 mcg-12.5 mg -2,000 unit tablet 1 tab PO DAILY trazodone 50 mg Tablet 25 - 50 mg PO BEDTIME PRN (Reason: Sleep) lactulose 10 gram/15 mL solution See Rx Instructions .ROUTE .COMPLEX Rx Instructions: TAKE 15ML BY MOUTH IN THE MORNING ON NON-DIALYSIS DAYS (WEDNESDAY,WEDNESDAY,WEDNESDAY & WEDNESDAY) aspirin 81 mg Tablet,Delayed Release (Dr/Ec) 81 mg PO DAILY 30 Days Qty: 30 0RF amlodipine 10 mg Tablet 10 mg PO DAILY 30 Days Qty: 30 0RF atorvastatin 40 mg Tablet 40 mg PO BEDTIME 30 Days Qty: 30 0RF carvedilol 25 mg tablet 12.5 mg PO BID 30 Days Qty: 30 4RF minoxidil 2.5 mg tablet 5 mg PO BID Qty: 60 0RF isosorbide mononitrate 60 mg tablet extended release 24 hr 60 mg PO DAILY Qty: 30 0RF clonidine HCl 0.2 mg tablet 0.1 mg PO BID 30 Days Qty: 60 4RF hydralazine 50 mg tablet 100 mg PO TID Qty: 90 0RF lisinopril 40 mg tablet 40 mg PO DAILY Qty: 90 0RF Discontinued hydroxyzine HCl 25 mg tablet 25 mg PO QID PRN (Reason: itching) Qty: 120 3RF Rx Instructions: itching hydroxyzine HCl 50 mg tablet 50 mg PO BEDTIME PRN (Reason: Itching) Discharge Orders: Discharge Order (Routine); Ordered 12/22/22 Ordered By: Deborah Singh Referrals: Randolph Ortiz MD [Primary Care Provider] - 2 weeks Discharge Diet: Cardiac Patient Instructions: Dialysis Diet (DC), Hemodialysis (DC), Opioid Safety Discharge Attestations Time Spent in Discharge Care*: greater than 30 min Quality Metrics Clinical Quality Measures [ No reported AMI, CVA or VTE this stay] Coding Level of Care Code Acute Code for Chg Fwd Diagnoses End stage renal disease on dialysis N18.6; Z99.2
--- OUTSIDE RECORDS SUMMARY | 2022-12-22 10:55 | XMS_ITS ---
Author Name Kaylah Phipps Address [address] [place] [address] Phone [phone] Organization [facility], NA DOCUMENT DISCLAIMER Multiple document versions may exist, please be sure you review the latest version. The information in the [facility] Progress Note Document represents a providers documented clinical note containing certain health and medical information. It may not contain the complete medical history for the patient and should be independently verified. The represented time in the document is Eastern Time PROVIDER ROUNDING NOTE BASIC Patient:?Navneet?Hussein,?1965,?57y,?M Dialysis?Location:?[facility] Attending?Manager Small Business:?[employer]?Date:?12/16/2022 Service?Provider:?Kaylah?Desire,?[employer] I?met?face?to?face?with?the?patient?today. OVERVIEW The?patient?presented?with?ESRD?on?dialysis Primary?cause?of?renal?failure:?Polycystic?kidney,?adult?type Comments:?VSS,?seen?on?HD?machine.?Reviewed?potassium?avoidance?in?diet.? Medications?and?labs?reviewed. LAST?HOSPITALIZATION Discharge?Diagnosis:?E87.5?Hyperkalemia Admission?Date?11/13/22 Discharge?Date?11/14/22 DIALYSIS?PRESCRIPTION ??IHD?3x?Week?Start?date:?11/27/22 ??Dialyzer:?180NRe?Optiflux ??BFR:?450 ??DFR:?Autoflow?1.5 ??Potassium:?2.0 ??Sodium:?138 ??EDW:?80.5 ??Duration:?4:00 ??Calcium:?2.5 ??Bicarb:?32 ??Rx?updated?on:?11/27/2022 TREATMENT?ASSESSMENT BP?Stand?Pre ??12/11/2022:?176/91 ??12/09/2022:?172/77 ??12/07/2022:?173/84 BP?Sit?Pre ??12/11/2022:?181/90 ??12/09/2022:?170/77 ??12/07/2022:?185/93 BP?Stand?Post ??12/11/2022:?148/82 ??12/09/2022:?171/99 ??12/07/2022:?157/92 BP?Sit?Post ??12/11/2022:?166/95 ??12/09/2022:?155/77 ??12/07/2022:?117/78 Tx?Duration ??12/11/2022:?4:00 ??12/09/2022:?4:00 ??12/07/2022:?4:08 Missed?Treatments 0?-?last?30?days 0?-?last?60?days FLUID?ASSESSMENT Comments:??ascites?present?secondary?to?liver?disease EDW?(kg) ??12/11/2022:?80.5 ??12/09/2022:?80.5 ??12/07/2022:?80.5 Weight?Pre?(kg) ??12/11/2022:?87.0 ??12/09/2022:?86.0 ??12/07/2022:?85.5 Weight?Post?(kg) ??12/11/2022:?83.6 ??12/09/2022:?83.0 ??12/07/2022:?81.5 PWV?(kg) ??12/11/2022:?3.1 ??12/09/2022:?2.5 ??12/07/2022:?1.0 UF?Rate?(mL/kg/hr) ??12/11/2022:?10.2 ??12/09/2022:?9 ??12/07/2022:?11.9 ADEQUACY?ASSESSMENT spKt/V,?URR ??11/25/2022:?1.65,?75.0 ??10/28/2022:?1.54,?74.0 ??09/25/2022:?1.59,?75.0 ACCESS?ASSESSMENT ??Access?Type:?AVFistula ??Access?SubType:?Standard ??Access?Status:?Active?(In?Use)?-?06/05/2020 ??Access?Location:?Left?Forearm ??Created:?03/27/2020 Flow ??12/07/2022:?1871 ??11/09/2022:?1069 ??11/06/2022:?1184 ANEMIA?ASSESSMENT Comments:?Hemoglobin?improvi HGB,?TSAT ??12/09/2022:?9.8,?- ??12/02/2022:?9.4,?- ??11/25/2022:?9.2,?39.0 ?? Ferritin ??10/28/2022:?514.0 ??07/22/2022:?461.0 Mircera,?IVP?(mcg) ??12/09/2022:?150 ??11/25/2022:?100 ??11/11/2022:?75 Iron?Sucrose?(Venofer)?(mg) ??12/09/2022:?100 ??11/25/2022:?100 ??11/11/2022:?100 BMM?ASSESSMENT Comments:?REviewed?SESTAMIBI?scan?of?PTH?with?patient:?decli ne?to?pursue?at?this?time PTH?elevated.? Phosphorus,?Calcium ??12/09/2022:?-,?9.4 ??11/25/2022:?12.7,?9.3 ??10/28/2022:?8.9,?9.5 ?? PTH,?Intact ??11/25/2022:?1968.0 ??11/06/2022:?1704.0 ??10/28/2022:?1292.0 Vitamin?D?(Calcitriol)?Oral?(mcg) ??12/11/2022:?1.75 ??12/09/2022:?1.75 ??12/07/2022:?1.75 NUTRITION?ASSESSMENT Comments:?Not?taking?lokelma?due?to?difficulty?swallowing?du e?to?taste,?on?2?k?bath.??Now?on?lactulose?at ?10?g?on?non?dy?days:?take?in?the?AM Potassium?above?goal.?Diet?reviewed?with?patient.?Referred?to?dietitian.? Albumin,?Potassium ??12/09/2022:?-,?7.1 ??12/02/2022:?-,?6.7 ??11/25/2022:?3.1,?6.8 ?? eNPCR ??11/25/2022:?0.63 ??10/28/2022:?0.74 ??09/25/2022:?0.94 PHYSICAL?EXAM Comments:?+?ascites Exam?Not?Performed. DIAGNOSIS Chief?Complaint:?N18.6?End?stage?renal?disease Patient?data?updated?12/16/2022?at?8:35?AM Signed?By:?Desire,?Kaylah,?[employer]LE??on?12/16/2022?8:38:19 AM END OF DOCUMENT
[2022-12-22 11:28] LABS: Anion Gap 12.5 (5-19); Blood Urea Nitrogen 12 mg/dL (6-20); Calcium 9.8 mg/dL (8.5-10.5); Carbon Dioxide 33 mmol/L (22-29); Chloride 97 mmol/L (98-107); Glucose 88 mg/dL (65-115); Osmolality Calculated 285 mOsm/kg (285-295); Potassium 4.5 mmol/L (3.5-5.1); Sodium 138 mmol/L (136-145)
--- NOTE | 2022-12-22 11:40 | PC.NURSE ---
Patient received discharge orders, all information reviewed with patient. All prescriptions sent to preferred pharmacy. All IVs removed. Patient verbalized understanding. Patient notifying daughter to arrange ride. All patient belongings are with patient
--- NOTE | 2022-12-22 12:15 | PC.NURSE ---
Patient ambulated with staff to main exit door at 1213.
== END 2022-12-22 12:13 | disposition home or self-care (01) ==
LOC: ER 12-21 01:43 → MEDSURG 12-21 03:03 → ICU 12-21 23:52
PROVIDERS: Hospitalist; Admitting Provider Internal Medicine; Emergency Provider Emergency Medicine; PCP Family Medicine; Visit Provider Internal Medicine
DX: I13.11 Hypertensive heart and chronic kidney disease without heart failure, with stage 5 chronic kidney disease, or end stage renal disease (principal); N18.6 End stage renal disease; D63.1 Anemia in chronic kidney disease; E87.5 Hyperkalemia; Z99.2 Dependence on renal dialysis; R94.31 Abnormal electrocardiogram [ECG] [EKG]; K21.9 Gastro-esophageal reflux disease without esophagitis; Z79.82 Long term (current) use of aspirin; F17.210 Nicotine dependence, cigarettes, uncomplicated; E16.2 Hypoglycemia, unspecified; R18.8 Other ascites; Q61.3 Polycystic kidney, unspecified; I16.1 Hypertensive emergency
CPT/HCPCS: 36415; 36416; 36600; 71045; 80048; 80051; 80053; 80069; 82330; 82805; 82962; 83036; 83735; 84100; 85025; 86705; 86706; 87340; 90935; 93005; 96372; 96374; 96375; 96376; 99285; G0378; J0360; J1610; J1644; J1720; J1815; J2060; J2270; J2405; J7042; Q3014

== ENCOUNTER 2022-12-24 04:20 | Emergency (ER) | payer MEDICARE, MEDICAID, SELFPAY ==
[2022-12-24 04:28] VITALS: BP 149/82; PULSE 90; RESP 20; TEMP 36.6; O2SAT 96; BMI 28.1
--- NOTE | 2022-12-24 04:37 | XRR_ITS ---
PROCEDURE INFORMATION: Exam: XR Chest Exam date and time: 12/24/2022 4:55 AM Age: 57 years old Clinical indication: Pain; Angina pectoris; Additional info: Cp TECHNIQUE: Imaging protocol: Radiologic exam of the chest. Views: 1 view. COMPARISON: CR (CHEST, ) 12/20/2022 11:11 PM FINDINGS: Lungs: Unremarkable. No consolidation. Pleural spaces: Unremarkable. No pleural effusion. No pneumothorax. Heart/Mediastinum: Unremarkable. No cardiomegaly. Bones/joints: Unremarkable. XR/XR chest 1V portable [id number] IMPRESSION: No acute findings.
--- NOTE | 2022-12-24 04:39 | ECG_ITS ---
[facility] Test Date: 2022-12-24 Pat Name: Navneet Savage Department: Room: Gender: Male Patient Experience Coordinator: : 1965 Requested By: Ghada Fontanez Order Number: [id number] Nate MD: Saurabh Fitzpatrick M.D. Measurements Intervals [place] Rate: 88 P: 13 MN: 138 QRS: -31 QRSD: 101 T: 60 QT: 376 QTc: 456 Interpretive Statements SINUS RHYTHM LEFT AXIS DEVIATION [QRS AXIS < -30] MODERATE VOLTAGE CRITERIA FOR LVH, CONSIDER NORMAL VARIANT [MEETS CRITERIA IN ONE OF: R(aVL), S(V1), R(V5), R(V5/V6)+S(V1)] NONSPECIFIC T-WAVE ABNORMALITY Compared to ECG 12/20/2022 23:39:31 Left-axis deviation now present T-wave abnormality now present Supraventricular rhythm no longer present Left anterior fascicular block no longer present Myocardial infarct finding no longer present Electronically Signed On 12-24-2022 16:03:03 CDT by Saurabh Fitzpatrick M.D. [email or web address] [email or web address] Worldwid[email or web address]/[email or web address]/[id number]
[2022-12-24 04:52] LABS: Basophils # 0.1 10^3/uL (0.0-0.1); Basophils % 0.7 %; Eosinophils # 0.3 10^3/uL (0.0-0.8); Eosinophils % 4.1 %; Hematocrit 38.3 % (42.0-52.0); Hemoglobin 12.2 g/dL (11.7-16.6); Lymphocytes # 1.1 10^3/uL (0.8-4.8); Lymphocytes % 14.2 %; Mean Corpuscular HGB Conc 31.9 g/dL (30.0-36.0); Mean Corpuscular Hemoglobin 30.7 pg (28.0-34.0); Mean Corpuscular Volume 96.2 fl (80-94); Mean Platelet Volume 9.2 fL (7.4-10.4); Monocytes % 12.5 %; Neutrophils # 5.21 10^3/uL (1.8-7.7); Neutrophils % 68.1 %; Nucleated Red Blood Cells % 0 %; Platelet Count 279 10^3/cmm (130-400); Red Blood Count 3.98 10^6/uL (4.1-5.3); Red Cell Distribution Width 14.2 % (12.1-15.1); White Blood Count 7.6 10^3/uL (4.0-10.0)
--- NOTE | 2022-12-24 04:56 | ED_ITS ---
HPI - Chest Pain General: Chief Complaint: Chest Pain Stated Complaint: body aches Time Seen by Provider: 12/24/22 04:25 Source: patient Mode of arrival: ambulatory Limitations: no limitations History of Present Illness: 57-year-old male very well-known to ER with history of end-stage renal disease gets dialysis Wednesday did receive dialysis yesterday states over the last 2 days he has had fatigue weakness also had chest pain and a mild headache over the last 2 days as well he rates his pain a 6 out of 10 currently denies any vomiting denies any diarrhea denies any worsening proving factors. Associated symptoms: Deny abdominal pain, dyspnea, fever(s), nausea or vomiting Review of Systems Const: Reports: malaise; Denies: fever(s) or chills Eyes: Denies: eye discomfort ENMT: Denies: throat pain or dental pain Card: Reports: chest pain Resp: Denies: dyspnea GI: Denies: abdominal pain, nausea, vomiting or diarrhea Musc: Denies: neck pain or back pain Skin/Breast: Denies: rash Neuro: Reports: headache(s) PFSH ED PFSH: Medical History Acute hyperkalemia Altered mental status Anemia in chronic kidney disease Ascites Nephrogenic ascites Ascites gets regular paracentesis Bilateral hydronephrosis Chronic anemia CVA (cerebral vascular accident) Dilated aortic root End stage renal disease on dialysis GERD (gastroesophageal reflux disease) Gout History of stroke Hypertension Hypoglycemia Hypothyroidism Incomplete bladder emptying Major depressive disorder Malaise Neuropathy, lumbosacral (radicular) Polycystic kidney disease Right bundle branch block (RBBB) on electrocardiogram (ECG) Tobacco use disorder Surgical History AV fistula left arm History of colonoscopy 2019 at [facility] History of surgical procedure Peritoneal dialysis catheter placement by Dr. Kamara 2015 S/P hemodialysis catheter insertion (03/13/20) 23cm long exchanged right IJ Removed on 06/11/2020 Family History Mother Chronic kidney disease (CKD) Stroke Father Cancer lung Brother Hypertension Denies family history of Diabetes CAD (coronary artery disease) Clotting disorder Dementia Hyperlipidemia Psychiatric illness Anesthesia complication Bleeding disorder Lung disease Social History Smoking and tobacco status: current every day smoker cigarettes Packs smoked p er day: 1 [ Other cigarette details: Half a pack per day for last 20-30 years] Alcohol intake: never Substance/Drug Use: current Substance/Drug use frequency: few times a week Marital status: Number of children: 1 Current occupational status: disabled Current gender identity: Male Agree to transfusion: Yes Physical Exam Const: COMMON NORMALS: no acute distress, patient oriented x3 and healthy appearing HENMT: COMMON NORMALS: normocephalic and atraumatic HEAD & SCALP: normocephalic and atraumatic Eye: COMMON NORMALS: Equal, round and reactive pupils present and EOMs intact bilaterally PUPIL: Yes Equal, round and reactive pupils present Neck/C-Spine: COMMON NORMALS: full ROM and supple Chest: COMMONS NORMALS: normal inspection of the chest and normal palpation of entire chest wall Resp: COMMON NORMALS: normal respiratory effort, No retractions, No use of accessory muscles and clear to auscultation bilaterally AUSCULTATION: clear to auscultation bilaterally Cardio: COMMON NORMALS: regular rate, regular rhythm and No murmurs present (Cardio) RATE: regular rate RHYTHM: regular rhythm GI: COMMON NORMALS: Normal to inspection, nondistended, normoactive bowel sounds present, Soft to palpation, non-tender and no masses PALPATION: Yes Soft to palpation Extremity: COMMON NORMALS: normal to inspection and full ROM Neuro: COMMON NORMALS: patient oriented x3, moves all extremities and no focal motor deficits Psych: COMMON NORMALS: mental status grossly normal, Normal thought process present and cooperative THOUGHT PROCESS: Normal thought process present Skin: COMMON NORMALS: no rashes or lesions noted and no wounds GENERAL SKIN EXAM: no rashes or lesions noted Course Vital Signs: Vital signs: Vital Signs Temperature 97.9 F 12/24/22 04:28 Pulse Rate 94 12/24/22 05:32 Respiratory Rate 16 12/24/22 05:32 Blood Pressure 155/81 12/24/22 05:32 Pulse Oximetry 94 12/24/22 05:32 Oxygen Delivery Me thod Room Air 12/24/22 04:28 MDM - Chest Pain Medical Decision Making Patient presents here with chest pain along with headache and generalized malaise patient's blood work here is at his baseline no signs of acute coronary syndrome. His potassium level here is normal he is stable for discharge he is to follow-up with PCP and return if worsening. Medical Records I reviewed the patient's medical records. Lab Data I reviewed the patient's lab results. 12/24/22 04:50 12/24/22 04:50 Radiology Impressions Chest X-Ray 12/24/22 04:37 IMPRESSION: No acute findings. Laboratory Results WBC 7.6 10^3/uL (4.0-10.0) 12/24/22 04:50 RBC 3.98 10^6/uL (4.1-5.3) L 12/24/22 04:50 Hgb 12.2 g/dL (11.7-16.6) 12/24/22 04:50 Hct 38.3 % (42.0-52.0) L 12/24/22 04:50 MCV 96.2 fl (80-94) H 12/24/22 04:50 MCH 30.7 pg (28.0-34.0) 12/24/22 04:50 MCHC 31.9 g/dL (30.0-36.0) 12/24/22 04:50 RDW 14.2 % (12.1-15.1) 12/24/22 04:50 Plt Count 279 10^3/cmm (130-400) 12/24/22 04:50 MPV 9.2 fL (7.4-10.4) 12/24/22 04:50 Neut % (Auto) 68.1 % 12/24/22 04:50 Lymph % (Auto) 14.2 % 12/24/22 04:50 [place] % (Auto) 12.5 % 12/24/22 04:50 Eos % (Auto) 4.1 % 12/24/22 04:50 Baso % (Auto) 0.7 % 12/24/22 04:50 Neut # (Auto) 5.21 10^3/uL (1.8-7.7) 12/24/22 04:50 Lymph # (Auto) 1.1 10^3/uL (0.8-4.8) 12/24/22 04:50 [place] # (Auto) 1.0 10^3/uL (0.2-0.9) H 12/24/22 04:50 Eos # (Auto) 0.3 10^3/uL (0.0-0.8) 12/24/22 04:50 Baso # (Auto) 0.1 10^3/uL (0.0-0.1) 12/24/22 04:50 Nucleated RBC % (auto) 0 % 12/24/22 04:50 Nucleated RBCs # 0.0 /100WBC 12/24/22 04:50 Sodium 138 mmol/L (136-145) 12/24/22 04:50 Potassium 4.9 mmol/L (3.5-5.1) 12/24/22 04:50 Chloride 95 mmol/L (98-107) L 12/24/22 04:50 Carbon Dioxide 31 mmol/L (22-29) H 12/24/22 04:50 Anion Gap 16.9 (5-19) 12/24/22 04:50 BUN 10 mg/dL (6-20) 12/24/22 04:50 Creatinine 4.1 mg/dL (0.7-1.2) H 12/24/22 04:50 GFR Calculation 15.1 mL/min (90-130) L 12/24/22 04:50 Glucose 112 mg/dL (65-115) 12/24/22 04:50 Calculated Osmolality 286 mOsm/kg (285-295) 12/24/22 04:50 Calcium 10.2 mg/dL (8.5-10.5) 12/24/22 04:50 Total Bilirubin 0.2 mg/dL (0.15-1.2) 12/24/22 04:50 AST 20 U/L (0-40) 12/24/22 04:50 ALT 9 U/L (0-41) 12/24/22 04:50 Alkaline Phosphatase 130 U/L (40-130) 12/24/22 04:50 Troponin T Baseline 192 ng/L (0-15) H* 12/24/22 04:50 Total Protein 5.7 g/dL (6.6-8.7) L 12/24/22 04:50 Albumin 3.5 g/dL (3.5-5.2) 12/24/22 04:50 Globulin 2.2 g/dL (1.3-4.6) 12/24/22 04:50 EKG Data EKG 1: I personally reviewed and interpreted this EKG as follows: EKG interpretation date: 12/24/22 EKG interpretation time: 04:39 Interpretation: nsr hr [address] or t wave abnormalities qrs 101 qtc 422 Discharge Plan Discharge Patient Disposition: Home Clinical Impression: Chest pain, End-stage renal disease (ESRD), Headache Condition: Stable Prescriptions: No Action simvastatin 40 mg tablet 40 mg PO DAILY cholecalciferol (vitamin D3) 125 mcg (5,000 unit) capsule 125 mcg PO DAILY sertraline 50 mg tablet 50 mg PO DAILY Qty: 90 0RF levothyroxine 75 mcg tablet 75 mcg PO DAILY Qty: 60 0RF allopurinol 100 mg Tablet 100 mg PO DAILY cinacalcet 30 mg tablet 30 mg PO DAILY sucralfate 1 gram tablet 1 g PO Q6H PRN (Reason: unknown) Auryxia 210 mg iron tablet 2 tab PO TID RenaPlex-D 800 mcg-12.5 mg -2,000 unit tablet 1 tab PO DAILY trazodone 50 mg Tablet 25 - 50 mg PO BEDTIME PRN (Reason: Sleep) lactulose 10 gram/15 mL solution See Rx Instructions .ROUTE .COMPLEX Rx Instructions: TAKE 15ML BY MOUTH IN THE MORNING ON NON-DIALYSIS DAYS (WEDNESDAY,WEDNESDAY,WEDNESDAY & WEDNESDAY) aspirin 81 mg Tablet,Delayed Release (Dr/Ec) 81 mg PO DAILY 30 Days Qty: 30 0RF amlodipine 10 mg Tablet 10 mg PO DAILY 30 Days Qty: 30 0RF atorvastatin 40 mg Tablet 40 mg PO BEDTIME 30 Days Qty: 30 0RF carvedilol 25 mg tablet 12.5 mg PO BID 30 Days Qty: 30 4RF minoxidil 2.5 mg tablet 5 mg PO BID Qty: 60 0RF isosorbide mononitrate 60 mg tablet extended release 24 hr 60 mg PO DAILY Qty: 30 0RF clonidine HCl 0.2 mg tablet 0.1 mg PO BID 30 Days Qty: 60 4RF hydralazine 50 mg tablet 100 mg PO TID Qty: 90 0RF lisinopril 40 mg tablet 40 mg PO DAILY Qty: 90 0RF Lokelma 5 gram powder in packet 5 g PO DAILY Qty: 11 0RF Discharge Orders: Discharge ED (Routine); Ordered 12/24/22 Ordered By: Ghada Fontanez Referrals: Randolph Ortiz MD [Primary Care Provider] - 1-3 days Discharge Diet: Advance as tolerated Discharge Activity: Resume usual activity Patient Instructions: Chest Pain (ED) Coding Level of Care Code ED Engineering Technology Instructor for Eric Sandhu
[2022-12-24] MEDS: aspirin 325 mg Tablet PO (04:58)
[2022-12-24] MEDS: acetaminophen 500 mg Tablet 1000 MG PO (04:58)
[2022-12-24 05:09] LABS: Alanine Aminotransferase 9 U/L (0-41); Albumin Level 3.5 g/dL (3.5-5.2); Alkaline Phosphatase 130 U/L (40-130); Anion Gap 16.9 (5-19); Aspartate Amino Transferase 20 U/L (0-40); Blood Urea Nitrogen 10 mg/dL (6-20); Calcium 10.2 mg/dL (8.5-10.5); Carbon Dioxide 31 mmol/L (22-29); Chloride 95 mmol/L (98-107); Globulin 2.2 g/dL (1.3-4.6); Glomerular Filtration Rate 15.1 mL/min (90-130); Glucose 112 mg/dL (65-115); Osmolality Calculated 286 mOsm/kg (285-295); Potassium 4.9 mmol/L (3.5-5.1); Sodium 138 mmol/L (136-145); Total Bilirubin 0.2 mg/dL (0.15-1.2); Total Protein 5.7 g/dL (6.6-8.7)
[2022-12-24 05:15] LABS: Troponin(5th) Baseline 192 ng/L (0-15)
[2022-12-24 05:32] VITALS: BP 155/81; PULSE 94; RESP 16; O2SAT 94
== END 2022-12-24 05:33 | disposition home or self-care (01) ==
PROVIDERS: Emergency Provider Emergency Medicine; PCP Family Medicine
DX: R07.9 Chest pain, unspecified (principal); R51.9 Headache, unspecified; I12.0 Hypertensive chronic kidney disease with stage 5 chronic kidney disease or end stage renal disease; N18.6 End stage renal disease; Z99.2 Dependence on renal dialysis; Z86.73 Personal history of transient ischemic attack (TIA), and cerebral infarction without residual deficits; F17.210 Nicotine dependence, cigarettes, uncomplicated
CPT/HCPCS: 71045; 80053; 84484; 85025; 93005; 99285

== ENCOUNTER 2022-12-25 09:57 | Emergency (ER) | payer MEDICARE, MEDICAID, SELFPAY ==
[2022-12-25 09:59] VITALS: BP 137/97; PULSE 147; RESP 18; TEMP 36.5; O2SAT 99; BMI 28.1
--- NOTE | 2022-12-25 10:06 | XR_ITS ---
WS: [id number] Portable AP upright chest, 12/25/2022 Clinical Data: dyspnea/cough Comparison: Portable chest, 12/24/2022 Findings: No nodules, masses or effusions are seen. The heart is normal. The pulmonary vascularity is not increased. No pneumonia or pneumothorax is seen. The aortic arch and descending thoracic aorta s how tortuosity. There are monitor leads on the chest wall. XR/XR chest 1V portable [id number] Impression: Atherosclerosis.
--- NOTE | 2022-12-25 10:15 | ED_ITS ---
HPI - General Adult General: Chief complaint: General Medical Stated complaint: dialysis pt Time Seen by Provider: 12/25/22 09:58 Source: patient History of Present Illness: 57-year-old male with a history of end-stage renal disease presents via EMS from dialysis clinic. He was hypertensive and short of breath on arrival here he is in A-fib with rapid ventricular response he has a known history of A-fib he is normally on Coreg. He states he did take his medications this morning. It is difficult to get any history from him he is overall somewhat frustrated with his medical condition does not wish to discuss his ongoing symptoms or the events this morning. I was able to get him to deny any chest pain he awake and alert in terms of is aware of time place and person. Associated symptoms: Reports no associated symptoms; Deny chest pain, confusion, nausea or other Review of Systems General: Reports: Other (Patient refuses to answer questions) Card: Denies: chest pain GI: Denies: nausea Neuro: Denies: confusion PFSH ED PFSH: Medical History Acute hyperkalemia Altered mental status Anemia in chronic kidney disease Ascites Nephrogenic ascites Ascites gets regular paracentesis Bilateral hydronephrosis Chronic anemia CVA (cerebral vascular accident) Dilated aortic root End stage renal disease on dialysis GERD (gastroesophageal reflux disease) Gout History of stroke Hypertension Hypoglycemia Hypothyroidism Incomplete bladder emptying Major depressive disorder Malaise Neuropathy, lumbosacral (radicular) Polycystic kidney disease Right bundle branch block (RBBB) on electrocardiogram (ECG) Tobacco use disorder Surgical History AV fistula left arm History of colonoscopy 2019 at [facility] History of surgical procedure Peritoneal dialysis catheter placement by Dr. Kamara 2016 S/P hemodialysis catheter insertion (03/13/20) 23cm long exchanged right IJ Removed on 06/11/2020 Family History Mother Chronic kidney disease (CKD) Stroke Father Cancer lung Brother Hypertension Denies family history of Diabetes CAD (coronary artery disease) Clotting disorder Dementia Hyperlipidemia Psychiatric illness Anesthesia complication Bleeding disorder Lung disease Social History Smoking and tobacco status: current every day smoker cigarettes Packs smoked per day: 1 [ Other cigarette details: Half a pack per day for last 20-30 years] Alcohol intake: never Substance/Drug Use: current Substance/Drug use frequency: few times a week Marital status: Number of children: 1 Current occupational status: disabled Current gender identity: Male Agree to transfusion: Yes Physical Exam Const: ORIENTATION/CONSCIOUSNESS: Yes awake, Yes oriented to person, Yes oriented to place and Yes oriented to time HENMT: COMMON NORMALS: normocephalic, atraumatic and hearing grossly normal bilaterally HEAD & SCALP: normocephalic and atraumatic Resp: COMMON NORMALS: normal respiratory effort, No retractions, No use of accessory muscles and clear to auscultation bilaterally AUSCULTATION: clear to auscultation bilaterally Cardio: COMMON NORMALS: regular rate and No murmurs present (Cardio) RATE: regular rate and tachycardic RHYTHM: abnormal rhythm irregularly irregular GI: COMMON NORMALS: Soft to palpation and No hepatosplenomegaly present AUSCULTATION: Yes normoactive bowel sounds PALPATION: Yes Soft to palpation, No Tenderness to palpation present (GI), No Guarding due to palpation present (GI) and Yes No hepatosplenomegaly present Extremity: COMMON NORMALS: normal to inspection, capillary refill normal, no clubbing, cyanosis or edema, no calf tenderness and no pedal edema Neuro: SENSORIUM/ORIENTATION: Yes oriented to person, Yes oriented to place and Yes oriented to time Skin: COMMON NORMALS: no rashes or lesions noted GENERAL SKIN EXAM: no rashes or lesions noted Course Vital Signs: Vital signs: Vital Signs Temperature 97.7 F 12/25/22 09:59 Pulse Rate 147 H 12/25/22 09:59 Respiratory Rate 18 12/25/22 09:59 Blood Pressure 137/97 12/25/22 09:59 Pulse Oximetry 99 12/25/22 09:59 Oxygen Delivery Me thod Room Air 12/25/22 09:59 MDM - General Adult Medical Decision Making Patient is initially given labetalol and his Coreg. His heart rate did improve. He became frustrated he wanted to leave we are still had his laboratory test pending. I tried to discourage the patient from leaving explained to him that his atrial fibrillation was going too quickly and needed to be controlled. Additionally he had not completed his dialysis evidently this morning. Despite these warnings he chose to leave AGAINST MEDICAL ADVICE and he was advised that he could return at any point we would be happy to take care of. Medical Records I reviewed the patient's medical records. Lab Data I reviewed the patient's lab results. 12/25/22 10:13 12/25/22 10:13 Radiology Impressions Chest X-Ray 12/25/22 10:06 Impression: Atherosclerosis. Laboratory Results WBC 8.6 10^3/uL (4.0-10.0) 12/25/22 10:13 RBC 3.94 10^6/uL (4.1-5.3) L 12/25/22 10:13 Hgb 12.1 g/dL (11.7-16.6) 12/25/22 10:13 Hct 37.4 % (42.0-52.0) L 12/25/22 10:13 MCV 94.9 fl (80-94) H 12/25/22 10:13 MCH 30.7 pg (28.0-34.0) 12/25/22 10:13 MCHC 32.4 g/dL (30.0-36.0) 12/25/22 10:13 RDW 14.1 % (12.1-15.1) 12/25/22 10:13 Plt Count 333 10^3/cmm (130-400) 12/25/22 10:13 MPV 9.8 fL (7.4-10.4) 12/25/22 10:13 Neut % (Auto) 63.8 % 12/25/22 10:13 Lymph % (Auto) 18.8 % 12/25/22 10:13 Mccracken % (Auto) 13.1 % 12/25/22 10:13 Eos % (Auto) 3.5 % 12/25/22 10:13 Baso % (Auto) 0.5 % 12/25/22 10:13 Neut # (Auto) 5.50 10^3/uL (1.8-7.7) 12/25/22 10:13 Lymph # (Auto) 1.6 10^3/uL (0.8-4.8) 12/25/22 10:13 M[place]racken # (Auto) 1.1 10^3/uL (0.2-0.9) H 12/25/22 10:13 Eos # (Auto) 0.3 10^3/uL (0.0-0.8) 12/25/22 10:13 Baso # (Auto) 0.0 10^3/uL (0.0-0.1) 12/25/22 10:13 Nucleated RBC % (auto) 0 % 12/25/22 10:13 Nucleated RBCs # 0.0 /100WBC 12/25/22 10:13 Sodium 136 mmol/L (136-145) 12/25/22 10:13 Potassium 4.7 mmol/L (3.5-5.1) 12/25/22 10:13 Chloride 94 mmol/L (98-107) L 12/25/22 10:13 Carbon Dioxide 31 mmol/L (22-29) H 12/25/22 10:13 Anion Gap 15.7 (5-19) 12/25/22 10:13 BUN 9 mg/dL (6-20) 12/25/22 10:13 Creatinine 3.7 mg/dL (0.7-1.2) H 12/25/22 10:13 GFR Calculation 17.0 mL/min (90-130) L 12/25/22 10:13 Glucose 65 mg/dL (65-115) 12/25/22 10:13 Calculated Osmolality 279 mOsm/kg (285-295) L 12/25/22 10:13 Calcium 9.9 mg/dL (8.5-10.5) 12/25/22 10:13 Total Bilirubin 0.3 mg/dL (0.15-1.2) 12/25/22 10:13 AST 19 U/L (0-40) 12/25/22 10:13 ALT 10 U/L (0-41) 12/25/22 10:13 Alkaline Phosphatase 132 U/L (40-130) H 12/25/22 10:13 Total Protein 6.2 g/dL (6.6-8.7) L 12/25/22 10:13 Albumin 3.4 g/dL (3.5-5.2) L 12/25/22 10:13 Globulin 2.8 g/dL (1.3-4.6) 12/25/22 10:13 Discharge Plan Discharge Patient Disposition: Left Against Medical Advice Clinical Impression: Atrial fibrillation with rapid ventricular response, Hypertension, End-stage renal disease (ESRD) Condition: Stable Prescriptions: No Action simvastatin 40 mg tablet 40 mg PO DAILY cholecalciferol (vitamin D3) 125 mcg (5,000 unit) capsule 125 mcg PO DAILY sertraline 50 mg tablet 50 mg PO DAILY Qty: 90 0RF levothyroxine 75 mcg tablet 75 mcg PO DAILY Qty: 60 0RF allopurinol 100 mg Tablet 100 mg PO DAILY cinacalcet 30 mg tablet 30 mg PO DAILY sucralfate 1 gram tablet 1 g PO Q6H PRN (Reason: unknown) Auryxia 210 mg iron tablet 2 tab PO TID RenaPlex-D 800 mcg-12.5 mg -2,000 unit tablet 1 tab PO DAILY trazodone 50 mg Tablet 25 - 50 mg PO BEDTIME PRN (Reason: Sleep) lactulose 10 gram/15 mL solution See Rx Instructions .ROUTE .COMPLEX Rx Instructions: TAKE 15ML BY MOUTH IN THE MORNING ON NON-DIALYSIS DAYS (WEDNESDAY,WEDNESDAY,WEDNESDAY & WEDNESDAY) aspirin 81 mg Tablet,Delayed Release (Dr/Ec) 81 mg PO DAILY 30 Days Qty: 30 0RF amlodipine 10 mg Tablet 10 mg PO DAILY 30 Days Qty: 30 0RF atorvastatin 40 mg Tablet 40 mg PO BEDTIME 30 Days Qty: 30 0RF carvedilol 25 mg tablet 12.5 mg PO BID 30 Days Qty: 30 4RF minoxidil 2.5 mg tablet 5 mg PO BID Qty: 60 0RF isosorbide mononitrate 60 mg tablet extended release 24 hr 60 mg PO DAILY Qty: 30 0RF clonidine HCl 0.2 mg tablet 0.1 mg PO BID 30 Days Qty: 60 4RF hydralazine 50 mg tablet 100 mg PO TID Qty: 90 0RF lisinopril 40 mg tablet 40 mg PO DAILY Qty: 90 0RF Lokelma 5 gram powder in packet 5 g PO DAILY Qty: 11 0RF Referrals: Randolph Ortiz MD [Primary Care Provider] - Coding Level of Care Code ED Funeral Service Apprentice for Efreng Phoebe
[2022-12-25] MEDS: carvedilol 12.5 mg Tablet PO (10:26)
[2022-12-25] MEDS: labetalol 5 mg/mL SDV 20mL 10 MG IVP (10:27)
[2022-12-25 10:43] LABS: Basophils % 0.5 %; Eosinophils # 0.3 10^3/uL (0.0-0.8); Eosinophils % 3.5 %; Hematocrit 37.4 % (42.0-52.0); Hemoglobin 12.1 g/dL (11.7-16.6); Lymphocytes # 1.6 10^3/uL (0.8-4.8); Lymphocytes % 18.8 %; Mean Corpuscular HGB Conc 32.4 g/dL (30.0-36.0); Mean Corpuscular Hemoglobin 30.7 pg (28.0-34.0); Mean Corpuscular Volume 94.9 fl (80-94); Mean Platelet Volume 9.8 fL (7.4-10.4); Monocytes # 1.1 10^3/uL (0.2-0.9); Monocytes % 13.1 %; Neutrophils % 63.8 %; Nucleated Red Blood Cells % 0 %; Platelet Count 333 10^3/cmm (130-400); Red Blood Count 3.94 10^6/uL (4.1-5.3); Red Cell Distribution Width 14.1 % (12.1-15.1); White Blood Count 8.6 10^3/uL (4.0-10.0)
[2022-12-25 11:07] LABS: Alanine Aminotransferase 10 U/L (0-41); Albumin Level 3.4 g/dL (3.5-5.2); Alkaline Phosphatase 132 U/L (40-130); Aspartate Amino Transferase 19 U/L (0-40); Blood Urea Nitrogen 9 mg/dL (6-20); Calcium 9.9 mg/dL (8.5-10.5); Carbon Dioxide 31 mmol/L (22-29); Chloride 94 mmol/L (98-107); Globulin 2.8 g/dL (1.3-4.6); Glucose 65 mg/dL (65-115); Osmolality Calculated 279 mOsm/kg (285-295); Sodium 136 mmol/L (136-145); Total Bilirubin 0.3 mg/dL (0.15-1.2); Total Protein 6.2 g/dL (6.6-8.7)
[2022-12-25 11:10] LABS: Anion Gap 15.7 (5-19); Potassium 4.7 mmol/L (3.5-5.1)
== END 2022-12-25 11:02 | disposition left against medical advice (07) ==
PROVIDERS: Emergency Provider Family Medicine; PCP Family Medicine
DX: I48.20 Chronic atrial fibrillation, unspecified (principal); I12.0 Hypertensive chronic kidney disease with stage 5 chronic kidney disease or end stage renal disease; N18.6 End stage renal disease; Z99.2 Dependence on renal dialysis; Z86.73 Personal history of transient ischemic attack (TIA), and cerebral infarction without residual deficits; Z79.82 Long term (current) use of aspirin; F17.210 Nicotine dependence, cigarettes, uncomplicated
CPT/HCPCS: 71045; 80053; 85025; 96374; 99285; J3490

== ENCOUNTER 2022-12-26 01:40 | Emergency (ER) | payer MEDICARE, MEDICAID, SELFPAY ==
[2022-12-26 01:43] VITALS: BP 180/92; PULSE 91; RESP 17; TEMP 36.7; O2SAT 92; BMI 28.1
--- NOTE | 2022-12-26 01:47 | XRR_ITS ---
PROCEDURE INFORMATION: Exam: XR Chest Exam date and time: 12/26/2022 1:55 AM Age: 57 years old Clinical indication: Chest pressure; Patient HX: C/O chest pain; Additional info: Cp TECHNIQUE: Imaging protocol: Radiologic exam of the chest. Views: 1 view. COMPARISON: CR XR chest 1V portable [id number] 12/25/2022 10:14 AM FINDINGS: Lungs: Poor inspiratory effort with some crowding of pulmonary markings and possible accentuation of the apparent heart size. Pleural spaces: Unremarkable. No pleural effusion. No pneumothorax. Heart/Mediastinum: See Lungs finding. Bones/joints: Unremarkable. XR/XR chest 1V portable [id number] IMPRESSION: Poor inspiratory effort with some crowding of pulmonary markings and possible accentuation of the apparent heart size.
--- NOTE | 2022-12-26 01:48 | W.ED.CHESTPA ---
HPI - Chest Pain General: Chief Complaint: Chest Pain Stated Complaint: chest pain Time Seen by Provider: 12/26/22 01:47 Source: patient Mode of arrival: ambulatory Limitations: no limitations History of Present Illness: 57-year-old male is very well-known to the ER has been here multiple times his history and stated on disease states that he has been having chest pain been seen here multiple times past for chest pain is very difficult to get much history from him he has been having pain for weeks. He denies any worsening proving factors. Associated symptoms: Deny abdominal pain, dyspnea, fever(s), nausea or vomiting Review of Systems Const: Denies: fever(s) or chills Eyes: Denies: blurry vision or eye discomfort ENMT: Denies: throat pain or dental pain Card: Reports: chest pain Resp: Denies: dyspnea GI: Denies: abdominal pain, nausea, vomiting or diarrhea Musc: Denies: neck pain or back pain Skin/Breast: Denies: rash Neuro: Denies: headache(s) PFSH ED PFSH: Medical History Acute hyperkalemia Altered mental status Anemia in chronic kidney disease Ascites Nephrogenic ascites Ascites gets regular paracentesis Bilateral hydronephrosis Chronic anemia CVA (cerebral vascular accident) Dilated aortic root End stage renal disease on dialysis GERD (gastroesophageal reflux disease) Gout History of stroke Hypertension Hypoglycemia Hypothyroidism Incomplete bladder emptying Major depressive disorder Malaise Neuropathy, lumbosacral (radicular) Polycystic kidney disease Right bundle branch block (RBBB) on electrocardiogram (ECG) Tobacco use disorder Surgical History AV fistula left arm History of colonoscopy 2019 at [facility] History of surgical procedure Peritoneal dialysis catheter placement by Dr. Kamara 2016 S/P hemodialysis catheter insertion (03/13/20) 23cm long exchanged right IJ Removed on 06/11/2020 Family History Mother Chronic kidney disease (CKD) Stroke Father Cancer lung Brother Hypertension Denies family history of Diabetes CAD (coronary artery disease) Clotting disorder Dementia Hyperlipidemia Psychiatric illness Anesthesia complication Bleeding disorder Lung disease Social History Smoking and tobacco status: current every day smoker cigarettes Packs smoked per day: 1 [ Other cigarette details: Half a pack per day for last 20-30 years] Alcohol intake: never Substance/Drug Use: current Substance/Drug use frequency: few times a week Marital status: Number of children: 1 Current occupational status: disabled Current gender identity: Male Agree to transfusion: Yes Physical Exam Const: COMMON NORMALS: no acute distress, patient oriented x3 and healthy appearing HENMT: COMMON NORMALS: normocephalic and atraumatic HEAD & SCALP: normocephalic and atraumatic Neck/C-Spine: COMMON NORMALS: full ROM and supple Chest: COMMONS NORMALS: normal inspection of the chest Resp: COMMON NORMALS: normal respiratory effort Cardio: COMMON NORMALS: regular rate, regular rhythm and No murmurs present (Cardio) RATE: regular rate RHYTHM: regular rhythm GI: COMMON NORMALS: Normal to inspection, nondistended, normoactive bowel sounds present, Soft to palpation, non-tender and no masses PALPATION: Yes Soft to palpation Extremity: COMMON NORMALS: normal to inspection and full ROM Neuro: COMMON NORMALS: patient oriented x3, moves all extremities and no focal motor deficits Psych: COMMON NORMALS: mental status grossly normal, Normal thought process present and cooperative THOUGHT PROCESS: Normal thought process present Skin: COMMON NORMALS: no rashes or lesions noted and no wounds GENERAL SKIN EXAM: no rashes or lesions noted Course Vital Signs: Vital signs: Vital Signs Temperature 98.1 F 12/26/22 01:43 Pulse Rate 67 12/26/22 03:34 Respiratory Rate 17 12/26/22 01:43 Blood Pressure 162/74 12/26/22 03:34 Pulse Oximetry 97 12/26/22 03:34 Oxygen Delivery Me thod Nasal Cannula 12/26/22 03:34 MDM - Chest Pain Medical Decision Making Patient presents for chest pain his 2-hour troponin is not positive. He has been pain-free here he is stable for discharge he is to follow-up with PCP and return if worsening he understands agrees to plan. Lab Data 12/26/22 01:48 12/26/22 01:48 Radiology Impressions Chest X-Ray 12/26/22 01:47 IMPRESSION: Poor inspiratory effort with some crowding of pulmonary markings and possible accentuation of the apparent heart size. Laboratory Results WBC 8.9 10^3/uL (4.0-10.0) 12/26/22 01:48 RBC 3.87 10^6/uL (4.1-5.3) L 12/26/22 01:48 Hgb 11.6 g/dL (11.7-16.6) L 12/26/22 01:48 Hct 36.8 % (42.0-52.0) L 12/26/22 01:48 MCV 95.1 fl (80-94) H 12/26/22 01:48 MCH 30.0 pg (28.0-34.0) 12/26/22 01:48 MCHC 31.5 g/dL (30.0-36.0) 12/26/22 01:48 RDW 14.2 % (12.1-15.1) 12/26/22 01:48 Plt Count 320 10^3/cmm (130-400) 12/26/22 01:48 MPV 9.2 fL (7.4-10.4) 12/26/22 01:48 Neut % (Auto) 64.1 % 12/26/22 01:48 Lymph % (Auto) 18.8 % 12/26/22 01:48 Gallia % (Auto) 11.5 % 12/26/22 01:48 Eos % (Auto) 4.6 % 12/26/22 01:48 Baso % (Auto) 0.7 % 12/26/22 01:48 Neut # (Auto) 5.70 10^3/uL (1.8-7.7) 12/26/22 01:48 Lymph # (Auto) 1.7 10^3/uL (0.8-4.8) 12/26/22 01:48 [place]ia # (Auto) 1.0 10^3/uL (0.2-0.9) H 12/26/22 01:48 Eos # (Auto) 0.4 10^3/uL (0.0-0.8) 12/26/22 01:48 Baso # (Auto) 0.1 10^3/uL (0.0-0.1) 12/26/22 01:48 Nucleated RBC % (auto) 0 % 12/26/22 01:48 Nucleated RBCs # 0.0 /100WBC 12/26/22 01:48 Sodium 136 mmol/L (136-145) 12/26/22 01:48 Potassium 5.6 mmol/L (3.5-5.1) H 12/26/22 01:48 Chloride 93 mmol/L (98-107) L 12/26/22 01:48 Carbon Dioxide 31 mmol/L (22-29) H 12/26/22 01:48 Anion Gap 17.6 (5-19) 12/26/22 01:48 BUN 15 mg/dL (6-20) 12/26/22 01:48 Creatinine 5.7 mg/dL (0.7-1.2) H* D 12/26/22 01:48 GFR Calculation 10.3 mL/min (90-130) L 12/26/22 01:48 Glucose 104 mg/dL (65-115) 12/26/22 01:48 Calculated Osmolality 283 mOsm/kg (285-295) L 12/26/22 01:48 Calcium 10.3 mg/dL (8.5-10.5) 12/26/22 01:48 Total Bilirubin 0.3 mg/dL (0.15-1.2) 12/26/22 01:48 AST 16 U/L (0-40) 12/26/22 01:48 ALT 12 U/L (0-41) 12/26/22 01:48 Alkaline Phosphatase 150 U/L (40-130) H 12/26/22 01:48 Troponin T Baseline 292 ng/L (0-15) H* 12/26/22 01:48 Troponin T 120 Minute 295.6 ng/L (0-15) H 12/26/22 03:45 Delta Troponin T 3.6 ABS# (0-10) 12/26/22 03:45 Total Protein 6.5 g/dL (6.6-8.7) L 12/26/22 01:48 Albumin 3.7 g/dL (3.5-5.2) 12/26/22 01:48 Globulin 2.8 g/dL (1.3-4.6) 12/26/22 01:48 Discharge Plan Discharge Patient Disposition: Home Clinical Impression: Chest pain Condition: Stable Prescriptions: No Action simvastatin 40 mg tablet 40 mg PO DAILY cholecalciferol (vitamin D3) 125 mcg (5,000 unit) capsule 125 mcg PO DAILY sertraline 50 mg tablet 50 mg PO DAILY Qty: 90 0RF levothyroxine 75 mcg tablet 75 mcg PO DAILY Qty: 60 0RF allopurinol 100 mg Tablet 100 mg PO DAILY cinacalcet 30 mg tablet 30 mg PO DAILY sucralfate 1 gram tablet 1 g PO Q6H PRN (Reason: unknown) Auryxia 210 mg iron tablet 2 tab PO TID RenaPlex-D 800 mcg-12.5 mg -2,000 unit tablet 1 tab PO DAILY trazodone 50 mg Tablet 25 - 50 mg PO BEDTIME PRN (Reason: Sleep) lactulose 10 gram/15 mL solution See Rx Instructions .ROUTE .COMPLEX Rx Instructions: TAKE 15ML BY MOUTH IN THE MORNING ON NON-DIALYSIS DAYS (WEDNESDAY,WEDNESDAY,WEDNESDAY & WEDNESDAY) aspirin 81 mg Tablet,Delayed Release (Dr/Ec) 81 mg PO DAILY 30 Days Qty: 30 0RF amlodipine 10 mg Tablet 10 mg PO DAILY 30 Days Qty: 30 0RF atorvastatin 40 mg Tablet 40 mg PO BEDTIME 30 Days Qty: 30 0RF carvedilol 25 mg tablet 12.5 mg PO BID 30 Days Qty: 30 4RF minoxidil 2.5 mg tablet 5 mg PO BID Qty: 60 0RF isosorbide mononitrate 60 mg tablet extended release 24 hr 60 mg PO DAILY Qty: 30 0RF clonidine HCl 0.2 mg tablet 0.1 mg PO BID 30 Days Qty: 60 4RF hydralazine 50 mg tablet 100 mg PO TID Qty: 90 0RF lisinopril 40 mg tablet 40 mg PO DAILY Qty: 90 0RF Lokelma 5 gram powder in packet 5 g PO DAILY Qty: 11 0RF Discharge Orders: Discharge ED (Routine); Ordered 12/26/22 Ordered By: Ghada Fontanez Referrals: Randolph Ortiz MD [Primary Care Provider] - Discharge Diet: Advance as tolerated Discharge Activity: Resume usual activity Patient Instructions: Chest Pain (ED) Coding Level of Care Code ED Stenotype Machine Operator for Eric Sandhu
--- NOTE | 2022-12-26 01:50 | ECG_ITS ---
[facility] Test Date: 2022-12-26 Pat Name: Navneet Savage Department: Room: Gender: Male Inside Sales: : 1965 Requested By: Ghada Fontanez Order Number: [id number] Nate MD: China Wheat M.D. Measurements Intervals [place] Rate: 93 P: 15 MD: 137 QRS: -37 QRSD: 99 T: 64 QT: 369 QTc: 459 Interpretive Statements SINUS RHYTHM LEFT AXIS DEVIATION [QRS AXIS < -30] VOLTAGE CRITERIA FOR LVH [MEETS CRITERIA IN ONE OF: R(aVL), S(V1), R(V5), R(V5/V6)+S(V1)] POSSIBLE SEPTAL MYOCARDIAL INFARCTION , OF INDETERMINATE AGE [30 ms Q WAVE IN V1/V2] Compared to ECG 12/24/2022 04:39:13 Myocardial infarct finding now present T-wave abnormality no longer present Electronically Signed On 12-26-2022 13:07:15 CDT by China Wheat M.D. [id number] f
[2022-12-26 01:59] LABS: Basophils # 0.1 10^3/uL (0.0-0.1); Basophils % 0.7 %; Eosinophils # 0.4 10^3/uL (0.0-0.8); Eosinophils % 4.6 %; Hematocrit 36.8 % (42.0-52.0); Hemoglobin 11.6 g/dL (11.7-16.6); Lymphocytes # 1.7 10^3/uL (0.8-4.8); Lymphocytes % 18.8 %; Mean Corpuscular HGB Conc 31.5 g/dL (30.0-36.0); Mean Corpuscular Volume 95.1 fl (80-94); Mean Platelet Volume 9.2 fL (7.4-10.4); Monocytes % 11.5 %; Neutrophils % 64.1 %; Nucleated Red Blood Cells % 0 %; Platelet Count 320 10^3/cmm (130-400); Red Blood Count 3.87 10^6/uL (4.1-5.3); Red Cell Distribution Width 14.2 % (12.1-15.1); White Blood Count 8.9 10^3/uL (4.0-10.0)
[2022-12-26 02:14] LABS: Alanine Aminotransferase 12 U/L (0-41); Albumin Level 3.7 g/dL (3.5-5.2); Alkaline Phosphatase 150 U/L (40-130); Anion Gap 17.6 (5-19); Aspartate Amino Transferase 16 U/L (0-40); Blood Urea Nitrogen 15 mg/dL (6-20); Calcium 10.3 mg/dL (8.5-10.5); Carbon Dioxide 31 mmol/L (22-29); Chloride 93 mmol/L (98-107); Globulin 2.8 g/dL (1.3-4.6); Glomerular Filtration Rate 10.3 mL/min (90-130); Glucose 104 mg/dL (65-115); Osmolality Calculated 283 mOsm/kg (285-295); Potassium 5.6 mmol/L (3.5-5.1); Sodium 136 mmol/L (136-145); Total Bilirubin 0.3 mg/dL (0.15-1.2); Total Protein 6.5 g/dL (6.6-8.7)
[2022-12-26 02:17] LABS: Troponin(5th) Baseline 292 ng/L (0-15)
[2022-12-26] MEDS: hyDRALAzine 20 mg/mL INJ 1 mL 10 MG IM (02:26)
--- NOTE | 2022-12-26 02:37 | ECG_ITS ---
[facility] Test Date: 2022-12-26 Pat Name: Navneet Savage Department: Room: Gender: Male Tender Labor: : 1965 Requested By: Ghada Fontanez Order Number: [id number] Nate MD: China Wheat M.D. Measurements Intervals [place] Rate: 98 P: 21 WA: 143 QRS: -42 QRSD: 100 T: 83 QT: 351 QTc: 450 Interpretive Statements SINUS RHYTHM LEFT AXIS DEVIATION [QRS AXIS < -30] MODERATE VOLTAGE CRITERIA FOR LVH, CONSIDER NORMAL VARIANT [MEETS CRITERIA IN ONE OF: R(aVL), S(V1), R(V5), R(V5/V6)+S(V1)] POSSIBLE SEPTAL MYOCARDIAL INFARCTION , PROBABLY OLD [30 ms Q WAVE IN V1/V2] Compared to ECG 12/24/2022 04:39:13 Myocardial infarct finding now present T-wave abnormality no longer present Electronically Signed On 12-26-2022 13:07:30 CDT by China Wheat M.D. [id number]
[2022-12-26] MEDS: nitroglycerin 0.4 mg sublingual Tablet SUBLINGUAL (02:41)
[2022-12-26 03:34] VITALS: BP 162/74; PULSE 67; O2SAT 97
[2022-12-26 04:12] LABS: Troponin 5 2HR 295.6 ng/L (0-15); Troponin 5 2HR Delta 3.6 ABS# (0-10)
[2022-12-26 04:31] VITALS: PULSE 99; RESP 20; O2SAT 96
== END 2022-12-26 04:28 | disposition home or self-care (01) ==
PROVIDERS: Emergency Provider Emergency Medicine; PCP Family Medicine
DX: R07.9 Chest pain, unspecified (principal); Z79.82 Long term (current) use of aspirin; F17.210 Nicotine dependence, cigarettes, uncomplicated; I12.0 Hypertensive chronic kidney disease with stage 5 chronic kidney disease or end stage renal disease; N18.6 End stage renal disease; Z86.73 Personal history of transient ischemic attack (TIA), and cerebral infarction without residual deficits
CPT/HCPCS: 71045; 80053; 84484; 85025; 93005; 96372; 99285; J0360

== ENCOUNTER 2022-12-26 10:49 | Inpatient (IN) | payer MEDICARE, MEDICAID, SELFPAY ==
[2022-12-26] VITALS (67 sets, daily range): BP systolic 77–133; BP diastolic 47–90; PULSE 42–70; RESP 16–20; TEMP 34.7–37.4; O2SAT 79–100
--- NOTE | 2022-12-26 11:03 | XRR_ITS ---
PROCEDURE INFORMATION: Exam: XR Chest Exam date and time: 12/26/2022 11:10 AM Age: 57 years old Clinical indication: Other: Post intubation; Additional info: Cxp TECHNIQUE: Imaging protocol: Radiologic exam of the chest. Views: 1 view. COMPARISON: 1. CR (CHEST, ) 12/26/2022 1:55 AM 2. CR XR chest 1V portable [id number] 12/25/2022 10:14 AM 3. CR (CHEST, ) 12/24/2022 4:55 AM FINDINGS: Tubes, catheters and devices: Endotracheal tube terminates at the level of the mid clavicular heads 7 cm proximal to the indigo. Enteric tube courses below the left hemidiaphragm and terminates beyond the field of view. Lungs: Pulmonary hypoinflation with associated bronchovascular crowding and accentuation of the cardiac silhouette. No consolidation. Pleural spaces: Unremarkable. No pleural effusion. No pneumothorax. Heart/Mediastinum: See Lungs finding. Bones/joints: Unremarkable. XR/XR chest 1V portable [id number] IMPRESSION: 1. Interval endotracheal tube terminates 7 cm proximal to the indigo at the level of the mid clavicular heads. 2. Presumed adequate positioning of interval enteric tube. 3. Pulmonary hypoinflation.
--- NOTE | 2022-12-26 11:03 | ECG_ITS ---
[facility] Test Date: 2022-12-26 Pat Name: Navneet Savage Department: Room: Gender: Male Disease Education Specialist: : 1965 Requested By: Jay Domingo Order Number: [id number] Nate MD: China Wheat M.D. Measurements Intervals [place] Rate: 59 P: 206 MI: 317 QRS: 19 QRSD: 100 T: 94 QT: 448 QTc: 444 Interpretive Statements SINUS BRADYCARDIA WITH FIRST DEGREE AV BLOCK ST ELEVATION, CONSIDER INFERIOR INJURY [MARKED ST ELEVATION W/O NORMALLY INFLECTED T-WAVE IN II/aVF] ACUTE LA Compared to ECG 12/26/2022 02:37:45 First degree AV block now present ST (T wave) deviation now present Sinus rhythm no longer present Left-axis deviation no longer present Myocardial infarct finding still present Electronically Signed On 12-26-2022 13:09:23 CDT by China Wheat M.D. [id number]
[2022-12-26] MEDS: midazolam 1 mg/mL INJ 2 mL 2 MG ×2 (11:21→11:25)
[2022-12-26 11:22] LABS: Glucose Point of Care 130 mg/dL (70-110)
[2022-12-26 11:35] LABS: Basophils # 0.1 10^3/uL (0.0-0.1); Basophils % 0.5 %; Eosinophils # 0.3 10^3/uL (0.0-0.8); Eosinophils % 2.8 %; Hematocrit 35.6 % (42.0-52.0); Hemoglobin 11.4 g/dL (11.7-16.6); Lymphocytes # 3.1 10^3/uL (0.8-4.8); Lymphocytes % 28.5 %; Mean Corpuscular Hemoglobin 30.3 pg (28.0-34.0); Mean Corpuscular Volume 94.7 fl (80-94); Monocytes # 1.1 10^3/uL (0.2-0.9); Monocytes % 10.1 %; Neutrophils # 6.33 10^3/uL (1.8-7.7); Neutrophils % 57.4 %; Nucleated Red Blood Cells % 0.3 %; Platelet Count 315 10^3/cmm (130-400); Red Blood Count 3.76 10^6/uL (4.1-5.3); Red Cell Distribution Width 14.1 % (12.1-15.1)
[2022-12-26] MEDS: propofol 1,000 MG/100 ML INJ 5 MG (11:39)
[2022-12-26 11:40] LABS: ABG PCO2 38.8 mmHg (35-45); ABG PH Result 7.45 (7.35-7.45); Arterial Blood Gas Hematocrit 34.9 % (42-52); Base Excess ABG 2.7 mmol/L (-2.0-2.0); Blood Gas Sample Site Brachial, right; Blood Gas Sample Type Arterial; Carboxyhemoglobin 1.4 %THgb (0.4-20.1); HCO3 ABG 26.9 mmol/L (22-26); HGB O2 Sat 97.6 % (95-100); Ionized Calcium Level - ABG 1.4 mmol/L (1.1-1.4); Methemoglobin 0.7 % (0.4-1.5); Oxygen Device AMBU; Oxygen Saturation ABG 99.7; Potassium Level - ABG 4.7 mmol/L (3.5-5.0); Total Hemoglobin 11.4 g/dL (14-18)
[2022-12-26] MEDS: fentaNYL 50 mcg/mL INJ 2mL 100 MCG IVP (11:40)
[2022-12-26] MEDS: sodium chloride 0.9% 1,000 ML 999 ML IV (11:40)
[2022-12-26 11:44] LABS: INR 0.97 (0.8-1.2)
[2022-12-26 11:45] LABS: Partial Thromboplastin Time 34.8 SECONDS (23.9-36.7)
--- NOTE | 2022-12-26 11:56 | XRR_ITS ---
PROCEDURE INFORMATION: Exam: XR Chest Exam date and time: 12/26/2022 11:58 AM Age: 57 years old Clinical indication: Other vascular access device placement or adjustment; Central line, non-tunnelled; Additional info: Central line placement TECHNIQUE: Imaging protocol: Radiologic exam of the chest. Views: 1 view. COMPARISON: 1. CR XR chest 1V portable [id number] 12/26/2022 11:10 AM 2. CR (CHEST, ) 12/26/2022 1:55 AM 3. CR XR chest 1V portable [id number] 12/25/2022 10:14 AM FINDINGS: Tubes, catheters and devices: Interval right central venous catheter terminates at the upper SVC near the azygous vein and brachiocephalic confluence. Stable endotracheal tube terminating 7 cm above the indigo. Stable enteric tube coursing below the left hemidiaphragm and terminating beyond the field of view. Lungs: Pulmonary hypoinflation with bronchovascular crowding and accentuation of the cardiac silhouette. Developing left retrocardiac opacification. Pleural spaces: Unremarkable. No pleural effusion. No pneumothorax. Heart/Mediastinum: See Lungs findings. Bones/joints: Unremarkable. XR/XR chest 1V portable [id number] IMPRESSION: 1. Interval right central venous catheter terminates in the upper SVC. 2. Developing left retrocardiac opacification may be infectious or inflammatory, possibly aspiration or atelectasis. 3. Stable endotracheal and enteric tubes.
[2022-12-26 12:05] LABS: Troponin(5th) Baseline 272 ng/L (0-15)
--- NOTE | 2022-12-26 12:05 | ED_ITS ---
HPI - Chest Pain General: Chief Complaint: Chest Pain Stated Complaint: chest pain Time Seen by Provider: 12/26/22 11:03 History of Present Illness: 57-year-old male presents emergency department in acute respiratory distress. He does appear to be acutely ill and very diaphoretic with decreased mental status. He was seen here previously at approximately 1 AM this morning and left AGAINST MEDICAL ADVICE. I have reviewed his previous medical record and it does appear that he had elevated cardiac enzymes at the time that he left AGAINST MEDICAL ADVICE. Patient currently is nonverbal and in respiratory failure and cardiac arrest. Review of Systems General: Reports: ROS unobtainable due to medical condition and ROS unobtainable due to mental status PFSH ED PFSH: Medical History Acute hyperkalemia Altered mental status Anemia in chronic kidney disease Ascites Nephrogenic ascites Ascites gets regular paracentesis Bilateral hydronephrosis Chronic anemia CVA (cerebral vascular accident) Dilated aortic root End stage renal disease on dialysis GERD (gastroesophageal reflux disease) Gout History of stroke Hypertension Hypoglycemia Hypothyroidism Incomplete bladder emptying Major depressive disorder Malaise Neuropathy, lumbosacral (radicular) Polycystic kidney disease Right bundle branch block (RBBB) on electrocardiogram (ECG) Tobacco use disorder Surgical History AV fistula left arm History of colonoscopy 2019 at [facility] History of surgical procedure Peritoneal dialysis catheter placement by Dr. Kamara 2016 S/P hemodialysis catheter insertion (03/13/20) 23cm long exchanged right IJ Removed on 06/11/2020 Family History Mother Chronic kidney disease (CKD) Stroke Father Cancer lung Brother Hypertension Denies family history of Diabetes CAD (coronary artery disease) Clotting disorder Dementia Hyperlipidemia Psychiatric illness Anesthesia complication Bleeding disorder Lung disease Social History Smoking and tobacco status: current every day smoker cigarettes Packs smoked per day: 1 [ Other cigarette details: Half a pack per day for last 20-30 years] Alcohol intake: never Substance/Drug Use: current Substance/Drug use frequency: few times a week Marital status: Number of children: 1 Current occupational status: disabled Current gender identity: Male Agree to transfusion: Yes Physical Exam Const: COMMON NORMALS: negative for patient oriented x3 GENERAL APPEARANCE: ill appearing and diaphoretic Eye: GENERAL EYE: appearance normal, both eyes and all related structures Neck/C-Spine: GENERAL: Yes normal visual inspection Resp: EFFORT & INSPECTION: Yes labored Cardio: RATE: bradycardic and Other RHYTHM: abnormal rhythm (Course ventricular fibrillation) GI: INSPECTION: Yes normal to inspection Back/Pelvis: COMMON NORMALS: thoracic and lumbar spine normal to inspection Extremity: LEFT UPPER EXTREMITY: Yes lower arm (AV fistula noted with positive thrill and bruit) Neuro: FINA COMA SCALE: document GCS findings Fina coma scale eye opening: None [place] coma scale verbal response: None [place] coma scale motor response: None [place] coma scale total score: 3 COMMON NORMALS: negative for patient oriented x3 Course Vital Signs: Vital signs: Vital Signs Temperature 94.2 F L 12/27/22 04:00 Pulse Rate 50 L 12/27/22 07:00 Respiratory Rate 16 12/27/22 04:53 Blood Pressure 100/60 12/27/22 07:00 Pulse Oximetry 95 12/27/22 07:00 Oxygen Delivery Me thod Mechanical Ventil ation 12/27/22 04:00 Fraction of Inspir ed Oxygen 40 12/27/22 04:53 MDM - Chest Pain Medical Decision Making Physical exam completed and documented patient is in acute respiratory failure and cardiac arrest to does appear to be a noncompliant with his hemodialysis he does appear acutely ill and very unkept. ACLS was initiated he did receive unsynchronized shock after starting CPR for his coarse V-fib and pulseless activity he was ultimately provided [id number] with resultant placement of endotracheal tube that was 8.0 in size and was secured at 21 cm at the teeth. See nursing CODE BLUE documentation for additional medication administration and resuscitation efforts. After several rounds of CPR and epinephrine we did get spontaneous return of pulses patient remained intubated on the ventilator and was provided supportive medications for his blood pressure cardiology was consulted as well as the intensive care unit physician. Patient was also provided cardiac dose aspirin as well as Plavix via his orogastric tube. A central line was placed in the emergency department to the right internal jugular vein with radiographic confirmation of proper placement. Patient remained in critical but stable condition at the time of transfer from the emergency department to the intensive care unit. Medical Records I reviewed the patient's medical records. Lab Data I reviewed the patient's lab results. 12/27/22 03:59 12/27/22 03:59 Radiology Impressions Chest X-Ray 12/26/22 11:56 IMPRESSION: 1. Interval right central venous catheter terminates in the upper SVC. 2. Developing left retrocardiac opacification may be infectious or inflammatory, possibly aspiration or atelectasis. 3. Stable endotracheal and enteric tubes. Laboratory Results WBC 11.0 10^3/uL (4.0-10.0) H 12/26/22 11:20 RBC 3.76 10^6/uL (4.1-5.3) L 12/26/22 11:20 Hgb 11.4 g/dL (11.7-16.6) L 12/26/22 11:20 Hct 35.6 % (42.0-52.0) L 12/26/22 11:20 MCV 94.7 fl (80-94) H 12/26/22 11:20 MCH 30.3 pg (28.0-34.0) 12/26/22 11:20 MCHC 32.0 g/dL (30.0-36.0) 12/26/22 11:20 RDW 14.1 % (12.1-15.1) 12/26/22 11:20 Plt Count 315 10^3/cmm (130-400) 12/26/22 11:20 MPV 10.0 fL (7.4-10.4) 12/26/22 11:20 Neut % (Auto) 57.4 % 12/26/22 11:20 Lymph % (Auto) 28.5 % 12/26/22 11:20 Carver % (Auto) 10.1 % 12/26/22 11:20 Eos % (Auto) 2.8 % 12/26/22 11:20 Baso % (Auto) 0.5 % 12/26/22 11:20 Neut # (Auto) 6.33 10^3/uL (1.8-7.7) 12/26/22 11:20 Lymph # (Auto) 3.1 10^3/uL (0.8-4.8) 12/26/22 11:20 Carver # (Auto) 1.1 10^3/uL (0.2-0.9) H 12/26/22 11:20 Eos # (Auto) 0.3 10^3/uL (0.0-0.8) 12/26/22 11:20 Baso # (Auto) 0.1 10^3/uL (0.0-0.1) 12/26/22 11:20 Nucleated RBC % (auto) 0.3 % 12/26/22 11:20 Nucleated RBCs # 0.0 /100WBC 12/26/22 11:20 PT 13.10 SECONDS (12.1-14.9) 12/26/22 11:20 INR 0.97 (0.8-1.2) 12/26/22 11:20 APTT 34.8 SECONDS (23.9-36.7) 12/26/22 11:20 Specimen Type Arterial 12/26/22 11:28 Sample Site Brachial, right 12/26/22 11:28 ABG pH 7.45 (7.35-7.45) 12/26/22 11:28 ABG pCO2 38.8 mmHg (35-45) 12/26/22 11:28 ABG pO2 135.0 mmHg (80.0-100.0) H 12/26/22 11:28 ABG HCO3 26.9 mmol/L (22-26) H 12/26/22 11:28 ABG O2 Saturation 99.7 12/26/22 11:28 ABG Base Excess 2.7 mmol/L (-2.0-2.0) H 12/26/22 11:28 Denis Test N/a 12/26/22 11:28 A-a O2 Gradient Not Reportable 12/26/22 11:28 Hematocrit 34.9 % (42-52) L 12/26/22 11:28 Hgb O2 Saturation 97.6 % (95-100) 12/26/22 11:28 Carboxyhemoglobin 1.4 %THgb (0.4-20.1) 12/26/22 11:28 Methemoglobin 0.7 % (0.4-1.5) 12/26/22 11:28 Total Hemoglobin 11.4 g/dL (14-18) L 12/26/22 11:28 Sodium 136.0 mmol/L (131-143) 12/26/22 11:28 Potassium 4.7 mmol/L (3.5-5.0) 12/26/22 11:28 Glucose 158.0 mg/dL (70-115) H 12/26/22 11:28 Ionized Calcium 1.4 mmol/L (1.1-1.4) 12/26/22 11:28 O2 Delivery Device Ambu 12/26/22 11:28 O2 Liters/Min 15.0 % 12/26/22 11:28 Wallpaper Scraper ID Kemar 12/26/22 11:28 Sodium 137 mmol/L (136-145) 12/26/22 12:00 Potassium 5.1 mmol/L (3.5-5.1) 12/26/22 12:00 Chloride 97 mmol/L (98-107) L 12/26/22 12:00 Carbon Dioxide 27 mmol/L (22-29) 12/26/22 12:00 Anion Gap 18.1 (5-19) 12/26/22 12:00 BUN 17 mg/dL (6-20) 12/26/22 12:00 Creatinine 5.7 mg/dL (0.7-1.2) H* 12/26/22 12:00 GFR Calculation 10.3 mL/min (90-130) L 12/26/22 12:00 Glucose 157 mg/dL (65-115) H 12/26/22 12:00 POC Glucose 130 mg/dL (70-110) H 12/26/22 11:20 Calculated Osmolality 289 mOsm/kg (285-295) 12/26/22 12:00 Calcium 10.2 mg/dL (8.5-10.5) 12/26/22 12:00 Total Bilirubin 0.2 mg/dL (0.15-1.2) 12/26/22 12:00 AST 16 U/L (0-40) 12/26/22 12:00 ALT 9 U/L (0-41) 12/26/22 12:00 Alkaline Phosphatase 124 U/L (40-130) 12/26/22 12:00 Troponin T Baseline 272 ng/L (0-15) H* 12/26/22 11:20 NT-Pro-B Natriuret Pep 23133 pg/mL (0-125) H 12/26/22 12:00 Total Protein 5.0 g/dL (6.6-8.7) L D 12/26/22 12:00 Albumin 3.1 g/dL (3.5-5.2) L 12/26/22 12:00 Globulin 1.9 g/dL (1.3-4.6) 12/26/22 12:00 PTH Intact 1038.0 pg/mL (15-65) H 12/26/22 12:00 Calcium (PTH Intact) 10.3 mg/dL (8.5-10.5) 12/26/22 12:00 Imaging Data CXR: My impression: Plain film chest x-ray post endotracheal intubation demonstrated proper tube placement, repeat radiograph examination post central line and orogastric tube placement demonstrated proper placement of both lines. EKG Data EKG 1: Interpretation: SINUS BRADYCARDIA WITH FIRST DEGREE AV BLOCK ST ELEVATION, CONSIDER INFERIOR INJURY? [MARKED ST ELEVATION W/O NORMALLY INFLECTED T-WAVE IN II/aVF] ACUTE NC Compared to ECG 12/26/2022 02:37:45 First degree AV block now present ST (T wave) deviation now present Sinus rhythm no longer present Left-axis deviation no longer present Myocardial infarct finding still present ABG Data ABG Interpretation 1: 12/26/22 11:28 ABG pH 7.45 ABG pCO2 38.8 ABG pO2 135.0 H ABG HCO3 26.9 H ABG O2 Saturation 99.7 ABG Base Excess 2.7 H Critical Care Time Critical Care Time: Total Critical Care Time: 75 Attestation: This case had a high probability of a clinically significant, sudden, or life threatening deterioration of this patient's condition which required my full and direct attention, intervention and personal management. Discharge Plan Discharge Patient Disposition: Admitted As Inpatient Admit Provider: Asad Baez Clinical Impression: Cardiac arrest with ventricular fibrillation, Respiratory failure, acute Condition: Stable Coding Level of Care Code ED Director [employer] for Eric Sandhu
--- NOTE | 2022-12-26 12:22 | PC.PHAR ---
pt unable to verify medications-medications entered are from previously entered med list and what was on pts discharge orders 12/22/22-see pharmacy notes from 12/14/22
[2022-12-26] MEDS: atropine 0.1 mg/mL Syr 10 mL 1 MG IVP (12:30)
--- NOTE | 2022-12-26 12:50 | ECG_ITS ---
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 Measurements Intervals [place] Rate: 46 P: 19 ND: 185 QRS: 22 QRSD: 109 T: 83 QT: 529 QTc: 467 Interpretive Statements SINUS BRADYCARDIA WITH OCCASIONAL SUPRAVENTRICULAR PREMATURE COMPLEXES MARKED ST ELEVATION, CONSIDER INFERIOR INJURY [MARKED ST ELEVATION W/O NORMALLY INFLECTED T-WAVE IN II/aVF] ACUTE TX INTERPRETATION BASED ON A DEFAULT AGE OF 40 YEARS Compared to ECG 12/26/2022 11:03:37 First degree AV block no longer present ST (T wave) deviation still present Myocardial infarct finding still present Electronically Signed On 12-27-2022 19:57:09 CDT by China Wheat M.D. [id number]
--- NOTE | 2022-12-26 12:52 | PC.NURSE ---
NURSE NOTICED ON [employer]ENNEL MANAGER DOG TRACK AT NURSE STATION PATIENT HAD BRADYCARDIA. NURSE WENT TO CHECK ON PATIENT, PATIENT WAS SITTING IN BED WITH EQUAL CHEST RISE AND HEART RATE OF 30. PATIENT WOULD NOT COMMUNICATE BUT MOAN. NURSE ALERTED STAFF AND PATIENT WAS MOVED TO TRAUMA ROOM. PATIENT QUIT BREATHING, NURSE CHECKED PULSE AND HAD NO PULSE. PROVIDER STATED TO START CPR AND CODE BLUE WAS CALLED.
[2022-12-26 12:55] LABS: Alanine Aminotransferase 9 U/L (0-41); Albumin Level 3.1 g/dL (3.5-5.2); Alkaline Phosphatase 124 U/L (40-130); Anion Gap 18.1 (5-19); Aspartate Amino Transferase 16 U/L (0-40); Blood Urea Nitrogen 17 mg/dL (6-20); Calcium 10.2 mg/dL (8.5-10.5); Carbon Dioxide 27 mmol/L (22-29); Chloride 97 mmol/L (98-107); Globulin 1.9 g/dL (1.3-4.6); Glomerular Filtration Rate 10.3 mL/min (90-130); Glucose 157 mg/dL (65-115); Osmolality Calculated 289 mOsm/kg (285-295); Potassium 5.1 mmol/L (3.5-5.1); Sodium 137 mmol/L (136-145); Total Bilirubin 0.2 mg/dL (0.15-1.2)
--- NOTE | 2022-12-26 13:02 | XACV_ITS ---
Exam Room: [facility] Ht: 170 cm Wt: 82 kg BSA: 1.98 m2 Gender: Male : 1965 Exam Priority: Routine Procedure(s): Procedure Description: Diagnostic procedure Procedure Description: PCI procedure Procedure Description: Drug Eluting Coronary Stent Procedure Description: PTCA Procedure Description: Coronary Atherectomy Procedure Description: Coronary Angiography Diagnostic Cath Status: Emergency Diagnostic Findings * INDICATION: 57 year old male who has history of ESRD, presented multiple times to ER with chest pain and left AMA before, presented again today with chest discomfort. Cardiology was called as he had a vfib arrest in the emergency room and STEMI alert was called based on ST elevation in inferior leads. * Left Main has no significant disease. * Left Anterior Descending has minimal luminal irregularities. * Left Circumflex has no significant disease. * Mid Right Coronary Artery to Distal Right Coronary Artery: subtotal 99%occlusion, GOYO: 2 flow. This is culprit vessel for ST elevation OH. This is heavily calcified artery. * Proximal Right Coronary Artery: obstructive 70% stenosis, GOYO: 3 flow. * Coronary angiography shows right dominance. PCI Status: Emergency PCI Indication: STEMI - Immediate PCI for STEMI Interventional Findings * Procedure detail: We engaged RCA with JR4 guide catheter initially. However because of lack of support, we decided to proceed with PCI with AL-0.75 guide catheter. IV heparin was administered to maintain anticoagulation. We crossed the stenosis in run-through guidewire and was put in distal vessel. However no balloon would cross mid to distal stenosis. We then proceeded with wiring with Viper wire. We performed several runs of orbital arthrectomy. We then followed it with predilation with 2.5 x 15 mm semicompliant balloon. We then predilated with 3.0 x 12 mm NC balloon. We then tried to advance the stent however it would not go. We then predilated with scoreFlex cutting balloon. At this time we advanced a 4.0 x 26 mm resolute [place] drug-eluting stent. This was postdilated with a 4.5 x 8 mm NC balloon at high pressure. We then performed orbital arthrectomy of proximal RCA stenosis. This was followed by predilation with a 3.5 x 12 mm NC balloon. Then placed a 4.0 by 18 mm resolute [place] drug-eluting stent and postdilated it with 4.5 x 8 mm NC balloon. At this time final angiogram was performed that showed excellent stent expansion, no residual stenosis and GOYO-3 flow. Guidewire and guide catheter were removed. Patient left the Medical Device Sales in a stable condition.. * Proximal Right Coronary Artery: 70% stenosis treated with a MDT NC EUPHORA RX [id number] BALLOON, MDT R KRISHNA 4.0X18 RASHAUN, and MDT NC EUPHORA RX 4.69C74VX BALLOON. 0% residual stenosis, GOYO: 3 flow. * Mid Right Coronary Artery to Distal Right Coronary Artery: 99% stenosis treated with a AB TREK 2.50X15 RX BALLOON, MDT NC EUPHORA RX 3.87S95UK BALLOON, MDT NC EUPHORA RX 3.51O74UK BALLOON, Scoreflex 3.0x15mm, MDT R KRISHNA 4.0X26 RASHAUN, and MDT NC EUPHORA RX 4.79O29UR BALLOON. 0% residual stenosis, GOYO: 3 flow. Conclusions 1. Critical, heavily calcified mid to distal RCA stenosis status post 2. successful revascularization with orbital arthrectomy and RASHAUN x1. Severe proximal RCA stenosis s/p successful revascularization with orbital arthrectomy and 1 stent.. 3. Proximal Right Coronary Artery was treated with a Balloon, Drug Eluting Stent, and Balloon. 4. Mid Right Coronary Artery to Distal Right Coronary Artery was treated with a Balloon, Balloon, Balloon, Balloon, Drug Eluting Stent, and Balloon. Recommendations * Dual antiplatelet therapy with aspirin and Plavix for at least 1 year. * High intensity statin therapy. * Outpatient cardiology follow-up in 2 weeks. Interventional RX Recommendation: PCI w/o planned CABG Diagnostic RX Recommendation: PCI w/o planned CABG Anticoagulation: Heparin Pressures Phase:Rest AO : 143 / 101 ( 122 ) @ 2:26:00 PM 131 / 93 ( 112 ) @ 2:27:00 PM 156 / 85 ( 115 ) @ 2:44:00 PM 133 / 71 ( 98 ) @ 2:51:00 PM 104 / 98 ( 101 ) @ 2:58:00 PM 120 / 94 ( 98 ) @ 3:03:00 PM 137 / 80 ( 102 ) @ 3:08:00 PM 148 / 92 ( 114 ) @ 3:48:00 PM Clinical Evaluation EBL: 5mL-10mL Procedural Details Pre-Procedure Time Out. Identified patient by full name and date of as verbalized by the patient/guarantor. Does the consent match the physician's order: N/A Emergent. Accurate & Complete Informed Consent: N/A Emergent. Inpatient/Outpatient History & Physical on Chart: N/A Emergent. If H&P is completed, is and addenduem needed: N/A Emergent; If yes, is the addendum complete: N/A Emergent. Visualize and Verify Site with Patient/Guarantor: N/A. Relevant Radiology Images available: N/A Emergent. Pre-op teaching completed and patient verbalized understanding. The risks, benefits, and alternatives of sedation and/or procedure were discussed by physician. The patient agrees to continue. Procedure started. IV Site on Arrival: 20 gauge in the left anticubital. IV Fluids: 0.9% NaCl at KVO. 0 mL infused prior to porcelain enamel laborer. Pre Procedural Pulses: bilateral dorsalis pedis was 2+. Patient arrived to porcelain enamel laborer on a ventilator and will be managed by respiratiory. Baseline sample Acquired. HR: 82 BPM. Physician notified. Physician arrived. Physician scrubbed in. Immediate Pre-Procedure Time Out. Correct Patient: N/A Emergent; Correct Procedure: N/A Emergent; Correct Site: N/A Emergent; Correct Patient Position: N/A Emergent; Correct Supplies: N/A Emergent; Dried Flammable Prep: N/A Emergent; Blood Products Available: N/A Emergent;. Lidocaine 1% infiltrated to the right groin. Arterial access obtained with micropuncture set. 6 liberian JR 4 guide catheter was inserted over the wire. Multiple views taken of right coronary artery. Runthrough guidewire was advanced through the guide catheter to lesion in the distal RCA. ACT drawn. Results 176 seconds. Therapeutic limits - pre-heparin administration 90-150 seconds and monitoring heparin during a vascular procedure >250 seconds. Second runthrough going in through the guide catheter. House supervisior called to mangate propfol drip. Balloon inserted to lesion in the distal RCA. Balloon out. Both runthrough wires out. Guide is out. A 5 liberian JL4 catheter in over wire. Multiple views taken of left coronary artery. Propofol 20mcg/kg/min. Levophed 4mcg/g/min. Catheter out. Propofol up to 25mcg/kg/min. 6 liberian JR 4 guide catheter was inserted over the wire. Amiodarone 1gm/min. 300cm runthrough in through the guide. Teleport microcatheter in throught the runthrough. Propofol up to 30 mcg/kg/min. Teleport catheter out through the runthrough. 1.25x 6 OTW Sprinter balloon insert as support to cross lesion. 3 lumen in right EJ. Inflation number : 1 A Splinter was prepped and advanced across the Prox RCA , then inflated to 12 SEVERO for 0:15 seconds. Balloon and wire out. Guide also out. Propofol up to 35 mcg/kg/min. 6 liberian AL 0.75 guide catheter was inserted over the wire. Viperwire inserted to the RCA. Diamondback mike inserted. Tang arrived to support propofol drip. Orbital athrectomy performed on the lesion in Mid RCA. NONSYSTEM delay: pt coded in ER. Orbital athrectomy performed on the lesion in MID RCA. Results checked. Orbital athrectomy performed on the lesion in MID RCA. Athrectomy mike out. ACT drawn. Results fault seconds. Therapeutic limits - pre-heparin administration 90-150 seconds and monitoring heparin during a vascular procedure >250 seconds. Teleport micorcatherter in over the viper wire. Viperwire out. 300cm runthrough going in. Teleport catheter out through the runthrough. ACT drawn. Results 253 seconds. Therapeutic limits - pre-heparin administration 90-150 seconds and monitoring heparin during a vascular procedure >250 seconds. Inflation number : 1 A AB TREK 2.50X15 RX BALLOON was prepped and advanced across the Mid RCA1 , then inflated to 14 SEVERO for 0:07 seconds. Inflation number: 2 The AB TREK 2.50X15 RX BALLOON was reinflated across the Mid RCA1, to 14 SEVERO for 0:08 seconds. Balloon out. Inflation number : 3 A MDT NC EUPHORA RX 3.35O64OO BALLOON was prepped and advanced across the Mid RCA1 , then inflated to 14 SEVERO for 0:11 seconds. Inflation number: 4 The MDT NC EUPHORA RX 3.00B72WK BALLOON was reinflated across the Mid RCA1, to 16 SEVERO for 0:13 seconds. Inflation number: 5 The MDT NC EUPHORA RX 3.34B91CP BALLOON was reinflated across the Mid RCA1, to 14 SEVERO for 0:07 seconds. Balloon out. Propofol up to 40 mcg/kg/min. Stent inserted to lesion in the mid RCA. Intact stent removed. Inflation number : 6 A MDT NC EUPHORA RX 3.21L17CF BALLOON was prepped and advanced across the Mid RCA1 , then inflated to 14 SEVERO for 0:14 seconds. Balloon out. Guideliner in over the wire. 4.0x26 Stent inserted to lesion in the mid RCA. Intact stent removed. 4.0x18 Stent inserted to lesion in the mid RCA. Guideliner out. Intact stent removed. Runthrough in. Inflation number : 7 A Scoreflex 3.0x15mm was prepped and advanced across the Mid RCA1 , then inflated to 12 SEVERO for 0:21 seconds. Inflation number: 8 The Scoreflex 3.0x15mm was reinflated across the Mid RCA1, to 12 SEVERO for 0:16 seconds. Balloon out. Stent inserted to lesion in the mid RCA. Inflation Number : 9 A MDT R KRISHNA 4.0X26 RASHAUN -Lot Number# [id number] exp date 02/19/2024 was prepped and advanced across the Mid RCA1. The stent was deployed at 12 SEVERO for 0:22 seconds. Stent balloon out over wire. Inflation number : 10 A MDT NC EUPHORA RX 4.13H39LU BALLOON was prepped and advanced across the Mid RCA1 , then inflated to 18 SEVERO for 0:13 seconds. Inflation number: 11 The MDT NC EUPHORA RX 4.01Z35NX BALLOON was reinflated across the Mid RCA1, to 16 SEVERO for 0:07 seconds. Inflation number: 12 The MDT NC EUPHORA RX 4.47W95MX BALLOON was reinflated across the Mid RCA1, to 16 SEVERO for 0:12 seconds. Inflation number: 13 The MDT NC EUPHORA RX 4.28T56HP BALLOON was reinflated across the Mid RCA1, to 12 SEVERO for 0:09 seconds. Balloon out. Results checked. Short wire out, long wire out. Viperwire in. Diamondback mike in to the RCA. Orbital athrectomy performed on the lesion in Prox RCA. Propofol up to 45 mcg/kg/min. Diamondback mike out. Short runthrough in. viperwire out. Balloon inserted to lesion in the prox RCA. Inflation number : 1 A MDT NC EUPHORA RX 3.24Q31GS BALLOON was prepped and advanced across the Prox RCA1 , then inflated to 12 SEVERO for 0:12 seconds. Inflation number: 2 The MDT NC EUPHORA RX 3.00Z38BT BALLOON was reinflated across the Prox RCA1, to 12 SEVERO for 0:07 seconds. Balloon out. Results checked. Propofol up to 50 mcg/kg/min. Inflation Number : 3 A MDT R KRISHNA 4.0X18 RASHAUN -Lot Number# [id number] exp date 08/16/24 was prepped and advanced across the Prox RCA1. The stent was deployed at 12 SEVERO for 0:16 seconds. Stent balloon out over wire. Inflation number: 4 The MDT NC EUPHORA RX 4.06J27TC BALLOON was reinflated across the Prox RCA1, to 16 SEVERO for 0:16 seconds. Inflation number: 5 The MDT NC EUPHORA RX 4.48R58NO BALLOON was reinflated across the Prox RCA1, to 16 SEVERO for 0:12 seconds. Inflation number: 6 The MDT NC EUPHORA RX 4.86H52QM BALLOON was reinflated across the Prox RCA1, to 18 SEVERO for 0:15 seconds. Balloon out. Results checked. Wire out. Guide catheter out. Admit Source: Emergency department. A Suture was successful obtaining hemostatsis at the Right Femoral artery insertion site. ACT drawn. Results 267 seconds. Therapeutic limits - pre-heparin administration 90-150 seconds and monitoring heparin during a vascular procedure >250 seconds. Respiratory arrived to manage patient airway. Post Procedure: Pulses reassessed and unchanged. PERRLA. Strong, equal hand lift builder whole bilaterally. No VTE prophylaxis required. Medication's Wasted: Heparin = 2000 units mL. Total IV fluids: 600 mL. Post-op diagnosis: critical mid RCA stenosis, orbital athrectomy, post 1 stent, severe prox RCA stenosis, orbitial athrectomy, post 1 Stent. Complications: none. Estimated blood loss: 5mL-10mL. Responsiveness - Normal response to verbal stimuli; alert and oriented, PERRLA. Airway - Unaffected, no intervention required; spontaneous ventilation. Circulation: W/N/L, pulses unchanged. Nausea/Vomiting: No. Medical Device Sales Indications: V-fib arrest. Procedure completed. Patient transferred by bed to ICU. Vital chart was stopped. Access Site Site: Right Femoral artery Sheath Size: 6 Fr Hemostasis Method: Suture Hemostasis Success: Successful Procedure Medications Start: 1:30 PM Stop: 1:30 PM Medication: Heparin Amount: 4000 units Route: I.V. Start: 1:33 PM Stop: 1:33 PM Medication: Versed Amount: 2 mg Route: I.V. Start: 1:51 PM Stop: 1:51 PM Medication: Heparin Amount: 2000 units Route: I.V. Start: 2:31 PM Stop: 2:31 PM Medication: Heparin Amount: 3000 units Route: I.V. Start: 2:59 PM Stop: 2:59 PM Medication: Heparin Amount: 1000 units Route: I.V. Start: 3:17 PM Stop: 3:17 PM Medication: Heparin Amount: 1000 units Route: I.V. I, the attending physician, have reviewed and verified all procedure medications. Yes, all medications given per verbal order Report Signatures Finalized by Saurabh Fitzpatrick MD on 01/11/2023 09:20 AM
[2022-12-26] MEDS: aspirin 81 mg Chew Tablet 324 MG PO (13:07)
[2022-12-26] MEDS: clopidogrel 300 mg Tablet PO (13:07)
[2022-12-26] MEDS: clopidogrel 300 mg Tablet OG-TUBE (13:07)
--- NOTE | 2022-12-26 13:12 | PM.CONSULT ---
Providers/Reason For Consult Consulting Physician/Specialty*: Saurabh Fitzpatrick MD Reason for Consult*: Vfib arrest Requesting Physician: Dr Baez Attending Physician: Asad Baez DO Primary Care Provider: Randolph Ortiz MD History of Present Illness History of Present Illness Navneet Savage is a 57 year old male who has history of ESRD, presented multiple times to ER with chest pain and left AMA before, presented again today with chest discomfort. Cardiology was called as he had a vfib arrest in the emergency room and STEMI alert was called based on ST elevation in inferior leads. Patient was intubated and sedated. On levophed and heparin gtt. Taken emergently to cardiac supervisor labor gang. Review of Systems General: Reports: ROS unobtainable due to endotracheal tube and ROS unobtainable due to medical condition Medications/Allergies Home Medications Medication Instructions Recorded Confirmed Last Taken Type allopurinol 100 mg tablet 100 mg PO DAILY 11/27/19 12/26/22 12/11/22 History simvastatin 40 mg tablet 40 mg PO DAILY 05/07/22 12/26/22 12/11/22 History cinacalcet 30 mg tablet 30 mg PO DAILY 05/12/22 12/26/22 12/11/22 History cholecalciferol (vitamin D3) 125 125 mcg PO DAILY 06/18/22 12/26/22 12/11/22 History mcg (5,000 unit) capsule ferric citrate 210 mg iron tablet 2 tab PO TID 06/22/22 12/26/22 12/11/22 History (Auryxia) vit B,C-folic ac 800 mcg-zinc 12.5 1 tab PO DAILY 06/22/22 12/26/22 12/11/22 History mg-selen-D3 2,000 unit-vit E tablet (R[facility]Plex-D) sertraline 50 mg tablet 50 mg PO DAILY #90 tabs 09/23/22 12/26/22 12/11/22 Rx sucralfate 1 gram tablet 1 g PO Q6H PRN unknown 10/06/22 12/26/22 12/11/22 History lactulose 10 gram/15 mL oral See Rx Instructions .Route .COMPLEX 12/14/22 12/26/22 Unknown History solution trazodone 50 mg tablet 25 - 50 mg PO BEDTIME PRN Sleep 12/14/22 12/26/22 Unknown History amlodipine 10 mg tablet 10 mg PO DAILY 30 days #30 tabs 12/15/22 12/26/22 Unknown Rx aspirin 81 mg tablet,delayed 81 mg PO DAILY 30 days #30 tabs 12/15/22 12/26/22 Unknown Rx release atorvastatin 40 mg tablet 40 mg PO BEDTIME 30 days #30 tabs 12/15/22 12/26/22 Unknown Rx levothyroxine 75 mcg tablet 75 mcg PO DAILY #60 tabs 12/21/22 12/26/22 Unknown Rx carvedilol 25 mg tablet 12.5 mg PO BID 30 days #30 tabs 12/22/22 12/26/22 Unknown Rx clonidine HCl 0.2 mg tablet 0.1 mg PO BID 30 days #60 tabs 12/22/22 12/26/22 Unknown Rx hydralazine 50 mg tablet 100 mg PO TID #90 tabs 12/22/22 12/26/22 Unknown Rx isosorbide mononitrate 60 mg 60 mg PO DAILY #30 tabs 12/22/22 12/26/22 Unknown Rx tablet,extended release 24 hr lisinopril 40 mg tablet 40 mg PO DAILY #90 tabs 12/22/22 12/26/22 Unknown Rx minoxidil 2.5 mg tablet 5 mg PO BID #60 tabs 12/22/22 12/26/22 Unknown Rx sodium zirconium cyclosilicate 5 5 g PO DAILY #11 ea 12/22/22 12/26/22 Unknown Rx gram oral powder packet ([facility]) Allergies Allergy/AdvReac Type Severity Reaction Status Date / Time Penicillins Allergy ALGY-Anaphy Verified 12/26/22 10:52 laxis Sulfa (Sulfonamide Allergy Unknown Verified 12/26/22 10:52 Antibiotics) fluoxetine [From Prozac] AdvReac Mild stomach Verified 12/26/22 10:52 upset PFSH Acute PFSH: Medical History Acute hyperkalemia Altered mental status Anemia in chronic kidney disease Ascites Nephrogenic ascites Ascites gets regular paracentesis Bilateral hydronephrosis Chronic anemia CVA (cerebral vascular accident) Dilated aortic root End stage renal disease on dialysis GERD (gastroesophageal reflux disease) Gout History of stroke Hypertension Hypoglycemia Hypothyroidism Incomplete bladder emptying Major depressive disorder Malaise Neuropathy, lumbosacral (radicular) Polycystic kidney disease Right bundle branch block (RBBB) on electrocardiogram (ECG) Tobacco use disorder Surgical History AV fistula left arm History of colonoscopy 2019 at [facility] History of surgical procedure Peritoneal dialysis catheter placement by Dr. Kamara 2015 S/P hemodialysis catheter insertion (03/13/20) 23cm long exchanged right IJ Removed on 06/11/2020 Family History Mother Chronic kidney disease (CKD) Stroke Father Cancer lung Brother Hypertension Denies family history of Diabetes CAD (coronary artery disease) Clotting disorder Dementia Hyperlipidemia Psychiatric illness Anesthesia complication Bleeding disorder Lung disease Social History Smoking and tobacco status: current every day smoker cigarettes Packs smoked per day: 1 [ Other cigarette details: Half a pack per day for last 20-30 years] Alcohol intake: never Substance/Drug Use: current Substance/Drug use frequency: few times a week Marital status: Number of children: 1 Current occupational status: disabled Current gender identity: Male Agree to transfusion: Yes Vitals/I&O/Wt Last Vital Signs Temp 98.0 F 12/26/22 10:52 Pulse 61 12/26/22 11:50 Resp 18 12/26/22 11:50 BP 133/74 12/26/22 11:50 Pulse Ox 99 12/26/22 11:50 O2 Del Method Mechanical Ventilation 12/26/22 11:50 FiO2 100 12/26/22 11:45 Weight last 48 hrs Weight 180 lb Physical Exam Narrative: General: Intubated and sedated Resp: Diminished air entry Cardio: Has grade 3/6 systolic murmur Extremities: No significant edema Data 12/27/22 03:59 12/27/22 03:59 A&P Assessment and plan (1) Cardiac arrest with ventricular fibrillation: (2) STEMI (ST elevation myocardial infarction): (3) Chest pain: (4) End-stage renal disease (ESRD): Plan Patient had cardiac arrest in the ER and post resuscitation EKG consistent with inferior wall STEMI. We will emergently take him to supervisor labor gang for coronary angiogram and possible percutaneous coronary intervention Patient loaded with aspirin, plavix and given heparin bolus. Will need ICU care afterwards and dialysis post cath Echocardiogram ordered Thank you for involving us with care of this patient. We will continue to follow. Please call with questions. Consult Attestations Medical Necessity Statement: Care expected to cross 2 midnights. Patient had a vfib arrest and has a STEMI Coding Level of Care Code Acute Code for [facility] Diagnoses Cardiac arrest with ventricular fibrillation I46.9; I49.01 STEMI (ST elevation myocardial infarction) I21.3 Chest pain R07.9 End-stage renal disease (ESRD) N18.6
[2022-12-26] MEDS: propofol 1,000 MG/100 ML INJ 5 MG IV (13:36)
[2022-12-26] MEDS: heparin drip 25,000 UNIT/500 ML PREMIX 23 UNIT IV (13:37)
--- NOTE | 2022-12-26 15:38 | P.HP_ITS ---
Providers/Chief Complaint Admitting Physician: Asad Baez DO Primary Care Provider: Randolph Ortiz MD Chief Complaint: chest pain History of Present Illness Navneet Savage is a 57 year old male with a past medical history significant for polycystic kidney disease, hypertension, GERD, gout, and ESRD on HD who presents for the 3rd time in the last 24 hours complaining of chest pain, shortness of breath. Patient had been seen in the ER 2x prior and left AMA after becoming frustrated. He presented again this morning with complaints of chest pain. Upon evaluation, he was noted to become diaphoretic and unresponsive. His EKG did show abnormal rhythm which resulted in V-fib. He was coded, intubated and received multiple doses of epinephrine, bicarb, and amiodo juan carlos. ER was able to obtain ROSC. He was started on Levophed, amiodorone and heparin drips. EKG performed which showed bradycardia and heart block, and additionally ST segment elevation. STEMI was called. Cardiology was able to take to the director of cardiac cath lab for angioplasty and stent placement x 2. Of note, prior to leaving AMA, he was noted to have elevated K+ to 5.7, and was treated with Calcium gluconate. He did have elevated troponin. Received Plavix and ASA prior to director of cardiac cath lab. He was transferred to ICU and admitted. Medications/Allergies Home Medications Medication Instructions Recorded Confirmed Last Taken Type allopurinol 100 mg tablet 100 mg PO DAILY 11/27/19 12/26/22 12/11/22 History simvastatin 40 mg tablet 40 mg PO DAILY 05/07/22 12/26/22 12/11/22 History cinacalcet 30 mg tablet 30 mg PO DAILY 05/12/22 12/26/22 12/11/22 History cholecalciferol (vitamin D3) 125 125 mcg PO DAILY 06/18/22 12/26/22 12/11/22 History mcg (5,000 unit) capsule ferric citrate 210 mg iron tablet 2 tab PO TID 06/22/22 12/26/22 12/11/22 History (Auryxia) vit B,C-folic ac 800 mcg-zinc 12.5 1 tab PO DAILY 06/22/22 12/26/22 12/11/22 History mg-selen-D3 2,000 unit-vit E tablet (RenaPlex-D) sertraline 50 mg tablet 50 mg PO DAILY #90 tabs 09/23/22 12/26/22 12/11/22 Rx sucralfate 1 gram tablet 1 g PO Q6H PRN unknown 10/06/22 12/26/22 12/11/22 History lactulose 10 gram/15 mL oral See Rx Instructions .Route .COMPLEX 12/14/22 12/26/22 Unknown History solution trazodone 50 mg tablet 25 - 50 mg PO BEDTIME PRN Sleep 12/14/22 12/26/22 Unknown History amlodipine 10 mg tablet 10 mg PO DAILY 30 days #30 tabs 12/15/22 12/26/22 Unknown Rx aspirin 81 mg tablet,delayed 81 mg PO DAILY 30 days #30 tabs 12/15/22 12/26/22 Unknown Rx release atorvastatin 40 mg tablet 40 mg PO BEDTIME 30 days #30 tabs 12/15/22 12/26/22 Unknown Rx levothyroxine 75 mcg tablet 75 mcg PO DAILY #60 tabs 12/21/22 12/26/22 Unknown Rx carvedilol 25 mg tablet 12.5 mg PO BID 30 days #30 tabs 12/22/22 12/26/22 Unknown Rx clonidine HCl 0.2 mg tablet 0.1 mg PO BID 30 days #60 tabs 12/22/22 12/26/22 Unknown Rx hydralazine 50 mg tablet 100 mg PO TID #90 tabs 12/22/22 12/26/22 Unknown Rx isosorbide mononitrate 60 mg 60 mg PO DAILY #30 tabs 12/22/22 12/26/22 Unknown Rx tablet,extended release 24 hr lisinopril 40 mg tablet 40 mg PO DAILY #90 tabs 12/22/22 12/26/22 Unknown Rx minoxidil 2.5 mg tablet 5 mg PO BID #60 tabs 12/22/22 12/26/22 Unknown Rx sodium zirconium cyclosilicate 5 5 g PO DAILY #11 ea 12/22/22 12/26/22 Unknown Rx gram oral powder packet (Lokelma) Allergies Allergy/AdvReac Type Severity Reaction Status Date / Time Penicillins Allergy ALGY-Anaphy Verified 12/26/22 10:52 laxis Sulfa (Sulfonamide Allergy Unknown Verified 12/26/22 10:52 Antibiotics) fluoxetine [From Prozac] AdvReac Mild stomach Verified 12/26/22 10:52 upset PFSH Acute PFSH: Medical History Acute hyperkalemia Altered mental status Anemia in chronic kidney disease Ascites Nephrogenic ascites Ascites gets regular paracentesis Bilateral hydronephrosis Chronic anemia CVA (cerebral vascular accident) Dilated aortic root End stage renal disease on dialysis GERD (gastroesophageal reflux disease) Gout History of stroke Hypertension Hypoglycemia Hypothyroidism Incomplete bladder emptying Major depressive disorder Malaise Neuropathy, lumbosacral (radicular) Polycystic kidney disease Right bundle branch block (RBBB) on electrocardiogram (ECG) Tobacco use disorder Surgical History AV fistula left arm History of colonoscopy 2019 at [facility] History of surgical procedure Peritoneal dialysis catheter placement by Dr. Kamara 2015 S/P hemodialysis catheter insertion (03/13/20) 23cm long exchanged right IJ Removed on 06/11/2020 Family History Mother Chronic kidney disease (CKD) Stroke Father Cancer lung Brother Hypertension Denies family history of Diabetes CAD (coronary artery disease) Clotting disorder Dementia Hyperlipidemia Psychiatric illness Anesthesia complication Bleeding disorder Lung disease Social History Smoking and tobacco status: current every day smoker cigarettes Packs smoked per day: 1 [ Other cigarette details: Half a pack per day for last 20-30 years] Alcohol intake: never Substance/Drug Use: current Substance/Drug use frequency: few times a week Marital status: Number of children: 1 Current occupational status: disabled Current gender identity: Male Agree to transfusion: Yes Vitals/I&O/Wt Last Vital Signs Temp 98.0 F 12/26/22 10:52 Pulse 61 12/26/22 11:50 Resp 18 12/26/22 11:50 BP 133/74 12/26/22 11:50 Pulse Ox 99 12/26/22 11:50 O2 Del Method Mechanical Ventilation 12/26/22 11:50 FiO2 100 12/26/22 11:45 12/26/22 12/26/22 12/26/22 06:59 14:59 22:59 Intake Total 0.333 / 0.333 Balance 0.333 / 0.333 Weight last 48 hrs Weight 180 lb Physical Exam Narrative: General: Sedated, intubated. HEENT: Normocephalic, Atraumatic. External ears normal. Nasal passages patent without drainage. MMM. Heart: Bradycardic, irregular rhythm. Resp: Intubated, rate at 18, bibasilar rales. Abd: Soft, non-tender. Distended abdomen. Extremities: LUE fistula. Skin: Multiple scars about the abdomen. Neuro: No focal motor or sensory loss. Gait is normal. Data 12/26/22 11:20 12/26/22 12:00 Micro: Microbiology 12/26/22 12:07 Sputum Culture - Preliminary Sputum - Endotracheal Tube Aspirate A&P Assessment and plan (1) STEMI (ST elevation myocardial infarction): (2) Chest pain: (3) End-stage renal disease (ESRD): (4) Right bundle branch block (RBBB) on electrocardiogram (ECG): (5) Hypertension: (6) Polycystic kidney disease: (7) GERD (gastroesophageal reflux disease): (8) Cardiac arrest with ventricular fibrillation: Plan 57 yo M with a past medical history significant for polycystic kidney disease, hypertension, GERD, gout, and ESRD on HD admitted s/p cardiac arrest, STEMI with angioplasty and stenting x 2. Admit to ICU for close inpatient monitoring. Patient is at high risk for sudden deterioration. Cardiology is consulted. S/P angioplasty with stent placement x 2. Continue sedation for Intubation. Propofol drip currently and will titrate as appropriate. Pressures are currently stable. Will work on titration off Levophed. Current rhythm is sinus with regular rate. Will consult nephrology due to ESRD receiving dialysis. Received ASA, Plavix, Heparin prior to stenting. Repeat labs this evening. NPO. Will start IVF's when appropriate. Have been unable to locate family, number in the chart is Non-working. Will continue to try to contact family. Recent Echo from 12/14 shows EF of 55-60%. Will need plavix for RASHAUN. Continue ASA, statin. RAAT, Oxygen protocol, Ventilator management. Repeat Blood gases as appropriate. Repeat Labs this pm and early am. PTT this afternoon. Will start fentanyl drip, monitor BP closely. OG tube management. Start Hong cath. Strict I/O's. Glucose checks. Repeat EKG and troponins. Can start Nicotine patch as needed once stable. Telemetry. Serial neuro exams. Code Status: Full IVF: None DVT PPx: Heparin GI PPx: None ABx: None Diet: NPO Discharge plan: Will determine when appropriate. Patient will need close ICU monitoring as he is s/p cardiac arrest, stent placement x 2, and at high risk for sudden deterioration. Attestations Medical Necessity Statement*: Patient will need close ICU monitoring as he is s/p cardiac arrest, stent placement x 2, and at high risk for sudden deterioration. Critical Care Time: Critical Care Time (min): 65 Coding Level of Care Code Critical Care >/= 30 minutes Critical care time (in minutes): 65 The high probability of a clinically significant, sudden or life threatening deterioration, as referenced in this documentation, required my full and direct attention, intervention and personal management. The critical care time shown is in addition to time spent performing any reported separately billable procedures and includes the following: [x] Data and vital sign review and interpretation [x ] Patient assessment, examination and intervention [x] Medication orders and management [x] Patient/Family updates as able [x] Care Coordination and Docu mentation. Diagnoses STEMI (ST elevation myocardial infarction) I21.3 Chest pain R07.9 End-stage renal disease (ESRD) N18.6 Right bundle branch block (RBBB) on electrocardiogram (ECG) I45.10 Hypertension I10 Polycystic kidney disease Q61.3 GERD (gastroesophageal reflux disease) K21.9 Cardiac arrest with ventricular fibrillation I46.9; I49.01 High MDM includes number and complexity of problems actively addressed during encounter, amount and/or complexity of data reviewed/ordered and described risk of complication, morbidity or mortality of management as documented
--- NOTE | 2022-12-26 16:25 | USCV_ITS ---
Navneet Savage Age: 57 Gender: M : 1965 Exam Date: 12/26/2022 19:57 Ordering Phys: Saurabh Fitzpatrick M.D ([email or web address]) Technologist: LALO Exam Location: [facility] [place] Indication: post stemi BP: / HR: 44 Rhythm: Sinus Technical Quality: Adequate MEASUREMENTS (Male / Female) Normal Values 2D ECHO LV Diastolic Diameter PLAX 4.1 cm 4.2 - 5.9 / 3.9 - 5.3 cm LV Systolic Diameter PLAX 3.0 cm IVS Diastolic Thickness 1.5 cm 0.6 - 1.0 / 0.6 - 0.9 cm IVS Systolic Thickness 2.5 cm LVPW Diastolic Thickness 1.5 cm 0.6 - 1.0 / 0.6 - 0.9 cm LVPW Systolic Thickness 1.5 cm LV Ejection Fraction 2D Teich 50.4 % LV Ejection Fraction MOD 2C 59.5 % LV Ejection Fraction 2C AL 59.7 % FINDINGS Left Ventricle Right Ventricle Right Atrium Left Atrium Mitral Valve Aortic Valve Tricuspid Valve Pulmonic Valve Pericardium Aorta IVC CONCLUSIONS This is limited echocardiogram performed to assess LV systolic function LV systolic function is normal with EF of 50-55%. No significant regional wall motion abnormalities seen Saurabh Fitzpatrick MD (Electronically Signed) Final Date: 27 December 2022 10:18 S
[2022-12-26 16:51] LABS: ABG PCO2 38.2 mmHg (35-45); ABG PH Result 7.48 (7.35-7.45); Alveolar-Arterial Oxygen Gradi 53.3 mmHg (5-10); Arterial Blood Gas Hematocrit 34.4 % (42-52); Base Excess ABG 4.4 mmol/L (-2.0-2.0); Blood Gas Allen Test Pos; Blood Gas Operator Identificat MONRO; Blood Gas Sample Site Radial, right; Blood Gas Sample Type Arterial; Carboxyhemoglobin 0.9 %THgb (0.4-20.1); HCO3 ABG 28.2 mmol/L (22-26); HGB O2 Sat 98.9 % (95-100); Ionized Calcium Level - ABG 1.3 mmol/L (1.1-1.4); Methemoglobin 0.8 % (0.4-1.5); Oxygen Device VENT; Oxygen Saturation ABG > 100.0; Potassium Level - ABG 5.5 mmol/L (3.5-5.0); Total Hemoglobin 11.2 g/dL (14-18)
[2022-12-26 17:19] LABS: Amphetamines Screen Urine Negative (Negative); Barbiturates Screen Urine Negative (Negative); Benzodiazepines Screen Urine Negative (Negative); Cocaine Screen Urine Negative (Negative); Opiate Screen Urine Negative (Negative); PCP Screen Urine Negative (Negative); THC Screen Urine Negative (Negative)
--- NOTE | 2022-12-26 17:19 | ECG_ITS ---
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 Measurements Intervals [place] Rate: 47 P: 26 IA: 138 QRS: -31 QRSD: 101 T: 18 QT: 575 QTc: 513 Interpretive Statements SINUS BRADYCARDIA LEFT AXIS DEVIATION [QRS AXIS < -30] MODERATE VOLTAGE CRITERIA FOR LVH, CONSIDER NORMAL VARIANT [MEETS CRITERIA IN ONE OF: R(aVL), S(V1), R(V5), R(V5/V6)+S(V1)] NONSPECIFIC ST ELEVATION [0.05+ mV ST ELEVATION] PROLONGED QT INTERVAL CRITICAL TEST RESULT Compared to ECG 12/26/2022 12:50:24 Left-axis deviation now present Prolonged QT interval now present Myocardial infarct finding no longer present ST (T wave) deviation still present Electronically Signed On 12-27-2022 20:03:09 CDT by China Wheat M.D. [id number]
--- NOTE | 2022-12-26 17:27 | PC.NURSE ---
Received patient from lab[facility] [employer] staff at 1543. Patient is sedated with 40 of propofol (MAR updated to reflect changes made in supervisor laboratory animal facility), and on 4 of levophed. Patient is occasionally restless, but mostly relaxed. Does not follow commands. HR: 68, SPO2: 97, BP: 134/80. NUrse attempted to call contact Kayla Cohen to update her, but the number is disconnected.
[2022-12-26] MEDS: propofol 1,000 MG/100 ML INJ 35 MG IV (18:11)
--- NOTE | 2022-12-26 18:12 | P.CONIM_ITS ---
Providers/Reason For Consult Consulting Physician/Specialty*: kommana/Nephrology Reason for Consult*: ESRD Attending Physician: Asad Baez DO Primary Care Provider: Randolph Ortiz MD History of Present Illness History of Present Illness Navneet Savage is a 57 year old male Patient is a 57-year-old male with past medical history of end-stage renal disease on dialysis, hypertension, gout, presented to the emergency department multiple times in the last 24 hours complaining of chest pain but he left AMA. He presented again with complaints of chest pain and became diaphoretic and unresponsive. Patient had V-fib arrest coded and intubated with ROSC. He was taken to the [facility] emerg[facility] It was reported to me that his last dialysis was yesterday. Unable to obtain further information. Review of Systems Narrative: UNABLE TO OBTAIN Medications/Allergies Home Medications Medication Instructions Recorded Confirmed Last Taken Type allopurinol 100 mg tablet 100 mg PO DAILY 11/27/19 12/26/22 12/11/22 History simvastatin 40 mg tablet 40 mg PO DAILY 05/07/22 12/26/22 12/11/22 History cinacalcet 30 mg tablet 30 mg PO DAILY 05/12/22 12/26/22 12/11/22 History cholecalciferol (vitamin D3) 125 125 mcg PO DAILY 06/18/22 12/26/22 12/11/22 History mcg (5,000 unit) capsule ferric citrate 210 mg iron tablet 2 tab PO TID 06/22/22 12/26/22 12/11/22 History (Auryxia) vit B,C-folic ac 800 mcg-zinc 12.5 1 tab PO DAILY 06/22/22 12/26/22 12/11/22 History mg-selen-D3 2,000 unit-vit E tablet (RenaPlex-D) sertraline 50 mg tablet 50 mg PO DAILY #90 tabs 09/23/22 12/26/22 12/11/22 Rx sucralfate 1 gram tablet 1 g PO Q6H PRN unknown 10/06/22 12/26/22 12/11/22 History lactulose 10 gram/15 mL oral See Rx Instructions .Route .COMPLEX 12/14/22 12/26/22 Unknown History solution trazodone 50 mg tablet 25 - 50 mg PO BEDTIME PRN Sleep 12/14/22 12/26/22 Unknown History amlodipine 10 mg tablet 10 mg PO DAILY 30 days #30 tabs 12/15/22 12/26/22 Unknow n Rx aspirin 81 mg tablet,delayed 81 mg PO DAILY 30 days #30 tabs 12/15/22 12/26/22 Unknown Rx release atorvastatin 40 mg tablet 40 mg PO BEDTIME 30 days #30 tabs 12/15/22 12/26/22 Unknown Rx levothyroxine 75 mcg tablet 75 mcg PO DAILY #60 tabs 12/21/22 12/26/22 Unknown Rx carvedilol 25 mg tablet 12.5 mg PO BID 30 days #30 tabs 12/22/22 12/26/22 Unknown Rx clonidine HCl 0.2 mg tablet 0.1 mg PO BID 30 days #60 tabs 12/22/22 12/26/22 Unknown Rx hydralazine 50 mg tablet 100 mg PO TID #90 tabs 12/22/22 12/26/22 Unknown Rx isosorbide mononitrate 60 mg 60 mg PO DAILY #30 tabs 12/22/22 12/26/22 Unknown Rx tablet,extended release 24 hr lisinopril 40 mg tablet 40 mg PO DAILY #90 tabs 12/22/22 12/26/22 Unknown Rx minoxidil 2.5 mg tablet 5 mg PO BID #60 tabs 12/22/22 12/26/22 Unknown Rx sodium zirconium cyclosilicate 5 5 g PO DAILY #11 ea 12/22/22 12/26/22 Unknown Rx gram oral powder packet ([facility]) Allergies Allergy/AdvReac Type Severity Reaction Status Date / Time Penicillins Allergy ALGY-Anaphy Verified 12/26/22 10:52 laxis Sulfa (Sulfonamide Allergy Unknown Verified 12/26/22 10:52 Antibiotics) fluoxetine [From Prozac] AdvReac Mild stomach Verified 12/26/22 10:52 upset Current Medications Generic Name Dose Route Start Last Admin Trade Name Freq PRN Reason Stop Dose Admin Norepinephrine Bitartrate 4 mg 254 mls @ 0 mls/hr 12/26/22 11:45 12/26/22 17:47 / Dextrose IV 2 mcg/min .Q0M MINNA 7.62 mls/hr Titration Protocol Per Protocol Propofol 1,000 mg in 100 mls @ 0 mls/hr 12/26/22 12:15 12/26/22 17:37 Diprivan IV 71.45 mcg/kg/min .Q0M MINNA 35 mls/hr Titration Protocol Per Protocol Fentanyl 2,500 mcg/ Sodium 250 mls @ 0 mls/hr 12/26/22 16:00 12/26/22 16:45 Chloride IV 50 mcg/hr .Q0M MINNA 5 mls/hr Titration Protocol Per Protocol PFSH Acute PFSH: Medical History Acute hyperkalemia Altered mental status Anemia in chronic kidney disease Ascites Nephrogenic ascites Ascites gets regular paracentesis Bilateral hydronephrosis Chronic anemia CVA (cerebral vascular accident) Dilated aortic root End stage renal disease on dialysis GERD (gastroesophageal reflux disease) Gout History of stroke Hypertension Hypoglycemia Hypothyroidism Incomplete bladder emptying Major depressive disorder Malaise Neuropathy, lumbosacral (radicular) Polycystic kidney disease Right bundle branch block (RBBB) on electrocardiogram (ECG) Tobacco use disorder Surgical History AV fistula left arm History of colonoscopy 2019 at [facility] History of surgical procedure Peritoneal dialysis catheter placement by Dr. Kamara 2016 S/P hemodialysis catheter insertion (03/13/20) 23cm long exchanged right IJ Removed on 06/11/2020 Family History Mother Chronic kidney disease (CKD) Stroke Father Cancer lung Brother Hypertension Denies family history of Diabetes CAD (coronary artery disease) Clotting disorder Dementia Hyperlipidemia Psychiatric illness Anesthesia complication Bleeding disorder Lung disease Social History Smoking and tobacco status: current every day smoker cigarettes Packs smoked per day: 1 [ Other cigarette details: Half a pack per day for last 20-30 years] Alcohol intake: never Substance/Drug Use: current Substance/Drug use frequency: few times a week Marital status: Number of children: 1 Current occupational status: disabled Current gender identity: Male Agree to transfusion: Yes Vitals/I&O/Wt Last Vital Signs Temp 98.0 F 12/26/22 10:52 Pulse 61 12/26/22 11:50 Resp 18 12/26/22 17:03 BP 133/74 12/26/22 11:50 Pulse Ox 94 12/26/22 17:03 O2 Del Method Mechanical Ventilation 12/26/22 15:49 FiO2 40 12/26/22 17:03 12/26/22 12/26/22 12/26/22 06:59 14:59 22:59 Intake Total 0.333 / 0.333 1345.171 / 1345.504 Balance 0.333 / 0.333 1345.171 / 1345.504 Weight last 48 hrs Weight 81.647 kg Physical Exam Narrative: EXAM DEFERRED Data 12/26/22 11:20 12/26/22 12:00 Micro: Microbiology 12/26/22 12:07 Gram Stain - Final Sputum - Endotracheal Tube Aspirate Sputum Culture - Preliminary A&P Assessment and plan (1) End-stage renal disease (ESRD): 1. End-stage renal disease: On [facility] schedule as outpatient, now presented that is postcardiac arrest and underwent left heart catheter emergently. He is currently on 40% FiO2, electrolytes stable. We will plan on dialysis early a.m. If patient O2 requirements increase or develop hyperkalemia we will do HD tonight. 2. Status postcardiac arrest secondary to STEMI, status post left heart cath and stents 3. Hypertension Consult Attestations Medical Necessity Statement: Per medicine Coding Level of Care Code Acute Code for Chg Fwd Diagnoses End-stage renal disease (ESRD) N18.6
--- NOTE | 2022-12-26 18:35 | PC.NURSE ---
SHift SUmmary: CODE Blue in the morning and then sent to cath labs (2 stents and multiple balloons). Taken to ICU and continuing to monitor at this time. On propofol and fentanyl for sedation, going back and forth between 0 and 2 mcg of levphed.
[2022-12-26 18:50] LABS: Calcium 10.3 mg/dL (8.5-10.5)
[2022-12-26 18:56] LABS: Ammonia 20 umol/L (16-60)
--- NOTE | 2022-12-26 19:00 | PC.NURSE ---
MAR Upon patient assessment, propofol administering at 35 mcg/kg/min while MAR displays 35 ml/hr. MAR upated to reflect administration.
[2022-12-26 19:02] LABS: Lactate (Lactic Acid level) 1.3 mmol/L (0.5-2.2)
[2022-12-26 19:03] LABS: Partial Thromboplastin Time 109.5 SECONDS (23.9-36.7)
[2022-12-26 19:30] LABS: Troponin 5 6HR 342.7 ng/L (0-15); Troponin 5 6HR Delta 70.7 ng/L (0-12)
[2022-12-26 19:34] LABS: Basophils % 0.4 %; Eosinophils # 0.1 10^3/uL (0.0-0.8); Eosinophils % 1.2 %; Hematocrit 32.5 % (42.0-52.0); Hemoglobin 10.5 g/dL (11.7-16.6); Lymphocytes # 1.2 10^3/uL (0.8-4.8); Lymphocytes % 15.4 %; Mean Corpuscular HGB Conc 32.3 g/dL (30.0-36.0); Mean Corpuscular Hemoglobin 30.5 pg (28.0-34.0); Mean Corpuscular Volume 94.5 fl (80-94); Mean Platelet Volume 9.9 fL (7.4-10.4); Monocytes # 0.7 10^3/uL (0.2-0.9); Monocytes % 8.9 %; Neutrophils # 5.69 10^3/uL (1.8-7.7); Neutrophils % 73.7 %; Nucleated Red Blood Cells % 0 %; Platelet Count 285 10^3/cmm (130-400); Red Blood Count 3.44 10^6/uL (4.1-5.3); Red Cell Distribution Width 14.2 % (12.1-15.1); White Blood Count 7.7 10^3/uL (4.0-10.0)
[2022-12-26 19:44] LABS: 25 Hydroxy Vitamin D 17 ng/mL (30-100); Alanine Aminotransferase 7 U/L (0-41); Albumin Level 2.6 g/dL (3.5-5.2); Alkaline Phosphatase 109 U/L (40-130); Anion Gap 16.9 (5-19); Aspartate Amino Transferase 15 U/L (0-40); Blood Urea Nitrogen 18 mg/dL (6-20); Calcium 9.8 mg/dL (8.5-10.5); Carbon Dioxide 27 mmol/L (22-29); Chloride 94 mmol/L (98-107); Chol HDL Ratio 2.41 mg/dL (1.0-5.00); Cholesterol 135 mg/dL (0-200); Globulin 2.4 g/dL (1.3-4.6); Glomerular Filtration Rate 10.1 mL/min (90-130); Glucose 102 mg/dL (65-115); HDL Cholesterol 56 mg/dL (60-100); LDL Cholesterol Calculated 67 mg/dL (50-129); Magnesium 1.6 mg/dL (1.7-2.3); Osmolality Calculated 276 mOsm/kg (285-295); Potassium 5.9 mmol/L (3.5-5.1); Sodium 132 mmol/L (136-145); Total Bilirubin 0.3 mg/dL (0.15-1.2); Triglycerides 60 mg/dL (0-150); Uric Acid 4.8 mg/dL (3.4-7.0)
[2022-12-26 19:57] LABS: Phosphorus 8.2 mg/dL (2.5-4.5)
--- NOTE | 2022-12-26 20:17 | ECG_ITS ---
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 Measurements Intervals [place] Rate: 44 P: -1 CT: 193 QRS: -40 QRSD: 98 T: 8 QT: 629 QTc: 540 Interpretive Statements SINUS BRADYCARDIA LEFT AXIS DEVIATION [QRS AXIS < -30] PROLONGED QT INTERVAL CRITICAL TEST RESULT Compared to ECG 12/26/2022 17:19:41 ST (T wave) deviation no longer present Electronically Signed On 12-27-2022 19:43:32 CDT by China Wheat M.D. [id number]
[2022-12-26 20:37] LABS: Free T4 Free Thyroxine 0.86 ng/dL (0.82-1.77); T3 Free 2.5 PG/ML (2.0-4.4)
--- NOTE | 2022-12-26 21:00 | PC.NURSE ---
Physician Communication At around 2014, Patient's HR decreasing from high 40s to low 40s and maintaining, skin color pale, blood pressure stable with levophed administering. Additionally, order active to remove sheath for a ptt <35, protocol states ptt should be <45. Dr. Fitzpatrick contacted; order received to obtain an EKG, allow for bradycardia with a stable blood pressure, and approval received to remove sheath with a ptt <45 as well as bradycardia. Furthermore, patient's rectal temperature 94.5 and the following critical labs were received: creatinine 5.8, phosphorous 8.2. Dr. Whitaker notified; order received to allow for hypothermia but maintain temperature >94. Message left for Dr. Frazier regarding critical labs. Orders received from Dr. Frazier for 2 amps bicarb IVP once, 2 gm calcium gluconate IVP once, 30 gm kayexalate PO once, and a repeat BMP in 4 hours. See MAR for details.
[2022-12-26 21:06] LABS: Troponin 5 2HR 408.1 ng/L (0-15)
[2022-12-26 21:09] LABS: Troponin 5 2HR Delta 136.1 ABS# (0-10)
[2022-12-26] MEDS: sodium bicarbonate 1 mEq/mL SDV 50mL 100 MEQ IVP (21:09)
[2022-12-26] MEDS: sodium polystyrene sulfonate 15 gm/60 mL Btl 30 GM PO (21:15)
[2022-12-26] MEDS: calcium gluconate 0.1 gm/mL 10% SDV 10mL 2 GM IVP (21:16)
[2022-12-26] MEDS: atorvastatin 40 mg Tablet PO (21:16)
[2022-12-26 23:26] LABS: Partial Thromboplastin Time 36.3 SECONDS (23.9-36.7)
[2022-12-26] MEDS: propofol 1,000 MG/100 ML INJ 17.15 MG IV (23:45)
[2022-12-27] VITALS (105 sets, daily range): BP systolic 83–142; BP diastolic 52–77; PULSE 45–76; RESP 16–18; TEMP 34.4–37.2; O2SAT 84–99; BMI 31.6
--- NOTE | 2022-12-27 00:34 | PC.NURSE ---
Sheath Removal Sheath pulled at 2354, pressure held for 20 minutes, and a new dressing placed over puncture site. No hematomas noted, all vitals stable.
[2022-12-27 01:24] LABS: Sodium 136 mmol/L (136-145)
[2022-12-27 01:48] LABS: Glucose 91 mg/dL (65-115)
[2022-12-27] MEDS: chlorhexidine gluconate 4% Btl 118 mL 1 APPLIC TOPICAL (02:00)
[2022-12-27 02:10] LABS: Blood Urea Nitrogen 20 mg/dL (6-20); Calcium 9.8 mg/dL (8.5-10.5); Glomerular Filtration Rate 9.4 mL/min (90-130); Osmolality Calculated 284 mOsm/kg (285-295)
[2022-12-27 02:14] LABS: Chloride 95 mmol/L (98-107); Potassium 6.2 mmol/L (3.5-5.1)
[2022-12-27 02:21] LABS: Anion Gap 23.2 (5-19); Carbon Dioxide 24 mmol/L (22-29)
--- NOTE | 2022-12-27 02:24 | PC.NURSE ---
Critical Lab Patient's creatinine level critical at 6.2. Dr. Frazier notified; orders received for the followin amps sodium bicarb IVP once and 2 gm calcium gluconate IVP once. See MAR for details.
[2022-12-27] MEDS: calcium gluconate 0.1 gm/mL 10% SDV 10mL 2 GM IVP (02:36)
[2022-12-27] MEDS: sodium bicarbonate 1 mEq/mL SDV 50mL 100 MEQ IVP (02:36)
[2022-12-27 02:37] LABS: Hepatitis B Core AB, Total Non-Reactive (Nonreactive); Hepatitis B Surface AB 31.7 (11.5-1000)
[2022-12-27 02:38] LABS: Hepatitis B Surface Antigen Reactive (Nonreactive)
[2022-12-27 04:13] LABS: Basophils % 0.3 %; Eosinophils % 0.7 %; Hematocrit 30.7 % (42.0-52.0); Hemoglobin 9.9 g/dL (11.7-16.6); Lymphocytes # 0.8 10^3/uL (0.8-4.8); Mean Corpuscular HGB Conc 32.2 g/dL (30.0-36.0); Mean Corpuscular Hemoglobin 30.3 pg (28.0-34.0); Mean Corpuscular Volume 93.9 fl (80-94); Mean Platelet Volume 9.3 fL (7.4-10.4); Monocytes # 0.6 10^3/uL (0.2-0.9); Monocytes % 9.3 %; Neutrophils # 4.55 10^3/uL (1.8-7.7); Neutrophils % 75.5 %; Nucleated Red Blood Cells % 0 %; Platelet Count 255 10^3/cmm (130-400); Red Blood Count 3.27 10^6/uL (4.1-5.3); Red Cell Distribution Width 14.1 % (12.1-15.1)
[2022-12-27] MEDS: propofol 1,000 MG/100 ML INJ 17.15 MG IV (04:48)
[2022-12-27] MEDS: albumin 12.5 GM/50 ML VIAL IV ×2 (04:53→05:47)
[2022-12-27 04:59] LABS: INR 1.03 (0.8-1.2)
[2022-12-27 05:00] LABS: Partial Thromboplastin Time 36.5 SECONDS (23.9-36.7)
[2022-12-27 05:10] LABS: Alanine Aminotransferase 8 U/L (0-41); Albumin Level 2.8 g/dL (3.5-5.2); Alkaline Phosphatase 117 U/L (40-130); Anion Gap 20.2 (5-19); Aspartate Amino Transferase 18 U/L (0-40); Blood Urea Nitrogen 19 mg/dL (6-20); Calcium 10.2 mg/dL (8.5-10.5); Carbon Dioxide 30 mmol/L (22-29); Chloride 94 mmol/L (98-107); Globulin 1.8 g/dL (1.3-4.6); Glomerular Filtration Rate 9.2 mL/min (90-130); Glucose 88 mg/dL (65-115); Magnesium 1.7 mg/dL (1.7-2.3); Osmolality Calculated 288 mOsm/kg (285-295); Potassium 6.2 mmol/L (3.5-5.1); Sodium 138 mmol/L (136-145); Thyroid Stimulating Hormone 3.92 uIU/mL (0.27-4.20); Total Bilirubin 0.2 mg/dL (0.15-1.2); Total Protein 4.6 g/dL (6.6-8.7)
[2022-12-27 05:20] LABS: Phosphorus 9.5 mg/dL (2.5-4.5)
--- NOTE | 2022-12-27 07:17 | P.PN_ITS ---
Subjective Subjective: Getting HD On vent Medications: Reviewed: Yes Vitals/I&O/Wt Last Vital Signs Temp 94.2 F L 12/27/22 04:00 Pulse 50 L 12/27/22 07:00 Resp 16 12/27/22 04:53 BP 100/60 12/27/22 07:00 Pulse Ox 95 12/27/22 07:00 O2 Del Method Mechanical Ventilation 12/27/22 04:00 FiO2 40 12/27/22 04:53 12/26/22 12/27/22 12/27/22 22:59 06:59 14:59 Intake Total 1522.929 / 1523.262 227.054 / 1750.316 Output Total 50 / 50 Balance 1522.929 / 1523.262 177.054 / 1700.316 Weight last 48 hrs Weight 81.647 kg Physical Exam Narrative: Intubated and sedated Data 12/27/22 03:59 12/27/22 03:59 Micro: Microbiology 12/26/22 12:07 Gram Stain - Final Sputum - Endotracheal Tube Aspirate Sputum Culture - Preliminary A&P Assessment and plan (1) End-stage renal disease (ESRD): 1. End-stage renal disease: On [facility] schedule as outpatient, now presented that is postcardiac arrest and underwent left heart catheter emergently. He is currently on 40% FiO2, HD today Has Hyperkalemia 2. Status postcardiac arrest secondary to STEMI, status post left heart cath and stents 3. Hypertension Attestations Medical Necessity Statement*: per report Coding Level of Care Code Acute Code for [facility] Diagnoses End-stage renal disease (ESRD) N18.6
[2022-12-27] MEDS: ipratropium-albuterol 3 mL Neb INHALATION ×3 (07:58→19:19)
--- NOTE | 2022-12-27 08:18 | P.PN_ITS ---
Subjective Subjective: Patient is intubated and sedated. Nursing reports pressures and heart rate have been stable overnight. Vitals/I&O/Wt Last Vital Signs Temp 94.2 F L 12/27/22 04:00 Pulse 60 12/27/22 07:58 Resp 16 12/27/22 08:00 BP 100/60 12/27/22 07:00 Pulse Ox 93 12/27/22 08:00 O2 Del Method Mechanical Ventilation 12/27/22 07:58 FiO2 40 12/27/22 08:00 12/26/22 12/27/22 12/27/22 22:59 06:59 14:59 Intake Total 1522.929 / 1523.262 227.054 / 1750.316 50 / 50 Output Total 50 / 50 Balance 1522.929 / 1523.262 177.054 / 1700.316 50 / 50 Weight last 48 hrs Weight 202 lb Weight 180 lb Physical Exam Narrative: General: Intubated and sedated Resp: Diminished air entry Cardio: Has grade 3/6 systolic murmur Extremities: No significant edema Neuro: Responds to tactile stimuli. Urinary Catheter Management: Chowdary: Cath Placed During This Visit: no Reason for Continuing Indwelling Catheter: Accurate Measurement of Urinary Output in Critically Ill Patients Data 12/27/22 03:59 12/27/22 03:59 Micro: Microbiology 12/26/22 12:07 Gram Stain - Final Sputum - Endotracheal Tube Aspirate Sputum Culture - Preliminary A&P Assessment and plan (1) STEMI (ST elevation myocardial infarction): (2) Chest pain: (3) End-stage renal disease (ESRD): (4) Right bundle branch block (RBBB) on electrocardiogram (ECG): (5) Hypertension: (6) Polycystic kidney disease: (7) GERD (gastroesophageal reflux disease): (8) Cardiac arrest with ventricular fibrillation: Plan 57 yo M with a past medical history significant for polycystic kidney disease, hypertension, GERD, gout, and ESRD on HD admitted s/p cardiac arrest, STEMI with angioplasty and stenting x 2. Continue ICU monitoring. Patient is at high risk for sudden deterioration. Cardiology is consulted. S/P angioplasty with stent placement x 2. Continue sedation for Intubation. Propofol drip currently and will titrate as appropriate. Pressures are currently stable. Continue Levophed titration. Appreciate nephrology consultation. Patient received hemodialysis this morning. Continue ASA, Plavix. Repeat a.m. labs. NPO. Have been unable to locate family, number in the chart is Non-working. Will continue to try to contact family. Recent Echo from 12/14 shows EF of 55-60%. RAAT, Oxygen protocol, Ventilator management. Repeat Blood gases as appropria te. OG tube, chowdary management. Can start Nicotine patch as needed once stable. Telemetry. Serial neuro exams. Code Status: Full IVF: NS at 100 DVT PPx: SCD's. GI PPx: famotidine ABx: None Diet: NPO Discharge plan: Will determine when appropriate. Patient will need close ICU monitoring as he is s/p cardiac arrest, stent placement x 2, and at high risk for sudden deterioration. Attestations Medical Necessity Statement*: Patient will need close ICU monitoring as he is s/p cardiac arrest, stent placement x 2, and at high risk for sudden deterioration. Time Spent in Patient Care: Greater than 35 minutes Critical Care Time: Critical Care Time (min): 40 Coding Level of Care Code Acute Code for Chg Fwd High MDM includes number and complexity of problems actively addressed during encounter, amount and/or complexity of data reviewed/ordered and described risk of complication, morbidity or mortality of management as documented Diagnoses STEMI (ST elevation myocardial infarction) I21.3 Chest pain R07.9 End-stage renal disease (ESRD) N18.6 Right bundle branch block (RBBB) on electrocardiogram (ECG) I45.10 Hypertension I10 Polycystic kidney disease Q61.3 GERD (gastroesophageal reflux disease) K21.9 Cardiac arrest with ventricular fibrillation I46.9; I49.01
[2022-12-27] MEDS: aspirin 81 mg EC Tablet PO (08:56)
[2022-12-27] MEDS: clopidogrel 75 mg Tablet PO (08:56)
--- NOTE | 2022-12-27 09:00 | XRR_ITS ---
PROCEDURE INFORMATION: Exam: XR Chest Exam date and time: 12/27/2022 8:09 AM Age: 57 years old Clinical indication: Shortness of breath; Additional info: S/P rosc, intubation TECHNIQUE: Imaging protocol: Radiologic exam of the chest. Views: 1 view. COMPARISON: CR XR chest 1V portable [id number] 12/26/2022 11:58 AM FINDINGS: Tubes, catheters and devices: Transcutaneous pacemaker lead overlies the left cardiac border. Nasogastric tube is placed with its tip in the proximal stomach. An endotracheal tube is placed with its tip approximately 3.9 cm from the indigo. A right internal jugular vein central venous line is placed with its tip at the level of the superior vena cava. Lungs: Patchy opacities are again seen in the left lower hemithorax possibly representing atelectasis although left basilar pneumonia cannot be excluded. Aspiration pneumonia could have this appearance. Pleural spaces: Unremarkable. No pleural effusion. No pneumothorax. Heart/Mediastinum: Unremarkable. No cardiomegaly. Bones/joints: Unremarkable. XR/XR chest 1V portable [id number] IMPRESSION: 1. Stable position life support tubing. 2. Endotracheal tube tip 3.9 cm from indigo. 3. Patchy opacities again seen left lower hemithorax may represent atelectasis although left basilar pneumonia cannot be excluded.
--- NOTE | 2022-12-27 09:20 | PC.HD ---
WAITER/WAITRESS HEAD suddenly spiked to 400, needle won't draw or flush. Started to return blood slowly via arterial needle but it stopped flushing detention through return and venous line/arterial needle noted to be clotted. Upon WAITER/WAITRESS HEAD suddenly spiked to 400, needle won't draw or flush. Started to return blood slowly via arterial needle but it stopped flushing detention through return and venous line/arterial needle noted to be clotted. Upon removing needles a clot was noted at the venous needle site and was removed with larger clot coming from under the skin. Fistula with positive thrill and bruit. Dr Pak notified of clotted needles and lines with instructions to terminate treatment, notrestring and recannulate.removing needles a clot was noted at the venous needle site and was removed with larger clot coming from under the skin. Fistula with positive thrill and bruit.
[2022-12-27] MEDS: propofol 1,000 MG/100 ML INJ 24.49 MG IV ×4 (09:49→21:43)
--- NOTE | 2022-12-27 10:12 | P.PN_ITS ---
Subjective Subjective: Patient is stable. Had PCI of RCA with 2 stents and orbital arthrectomy yesterday. EKG stable. Minimal levophed. Vitals/I&O/Wt Last Vital Signs Temp 95.0 F L 12/27/22 09:15 Pulse 60 12/27/22 09:15 Resp 18 12/27/22 09:14 BP 122/71 12/27/22 09:15 Pulse Ox 95 12/27/22 09:15 O2 Del Method Mechanical Ventilation 12/27/22 09:15 FiO2 40 12/27/22 08:00 12/26/22 12/27/22 12/27/22 22:59 06:59 14:59 Intake Total 1522.929 / 1523.262 227.054 / 1750.316 662.830 / 662.830 Output Total 50 / 50 1112 / 1112 Balance 1522.929 / 1523.262 177.054 / 1700.316 -449.170 / -449.170 Weight last 48 hrs Weight 206 lb 2.115 oz Weight 202 lb Weight 180 lb Physical Exam Narrative: General: Intubated and sedated Resp: Diminished air entry Cardio: Has grade 3/6 systolic murmur Extremities: No significant edema Urinary Catheter Management: Hong: Cath Placed During This Visit: no Reason for Continuing Indwelling Catheter: Accurate Measurement of Urinary Output in Critically Ill Patients Data 12/27/22 03:59 12/27/22 03:59 Micro: Microbiology 12/26/22 12:07 Gram Stain - Final Sputum - Endotracheal Tube Aspirate Sputum Culture - Preliminary A&P Assessment and plan (1) Cardiac arrest with ventricular fibrillation: (2) STEMI (ST elevation myocardial infarction): (3) Chest pain: (4) End-stage renal disease (ESRD): Plan Patient is overall stable. He had successful revascularization of RCA with 2 stents and orbital arthrectomy yesterday. Minimal levophed requirement. Continue aspirin and plavix High intensity statin therapy ECHO shows normal LV systolic function Thank you for involving us with care of this patient. We will continue to follow. Please call with questions. Attestations Medical Necessity Statement*: Care expected to cross 2 midnights. Coding Level of Care Code Acute Code for [facility] Diagnoses Cardiac arrest with ventricular fibrillation I46.9; I49.01 STEMI (ST elevation myocardial infarction) I21.3 Chest pain R07.9 End-stage renal disease (ESRD) N18.6
--- NOTE | 2022-12-27 18:12 | PC.NURSE ---
Shift Note Frequent safety and comfort rounds continue. Orders and/or nursing care completed as indicated. Patient monitored for response to intervention and treatment(s). Overall uneventful shift, patient temperature monitored per post code protocol, discussed with Dr. Baez. Oral care completed as protocol for vented patient for VAP prevention, 2 renuka kits used this shift, patient producing copious amounts of saliva. Patient stirs and pulls against restraints when oral care and turning completed, but is not responding to commands. Sedation increased as patient began pulling heavily at restraints and attempting to sit up in bed, still unable to follow commands. See MAR for titration.
[2022-12-27] MEDS: atorvastatin 40 mg Tablet PO (21:43)
[2022-12-28] VITALS (73 sets, daily range): BP systolic 98–145; BP diastolic 57–82; PULSE 72–97; RESP 15–20; TEMP 36.6–38.2; O2SAT 88–97
[2022-12-28] MEDS: propofol 1,000 MG/100 ML INJ 24.49 MG IV ×3 (01:25→17:15)
[2022-12-28 02:43] LABS: Basophils % 0.4 %; Eosinophils # 0.1 10^3/uL (0.0-0.8); Eosinophils % 1.4 %; Hematocrit 30.4 % (42.0-52.0); Hemoglobin 9.8 g/dL (11.7-16.6); Lymphocytes % 13.5 %; Mean Corpuscular HGB Conc 32.2 g/dL (30.0-36.0); Mean Corpuscular Hemoglobin 30.8 pg (28.0-34.0); Mean Corpuscular Volume 95.6 fl (80-94); Mean Platelet Volume 9.8 fL (7.4-10.4); Monocytes # 0.6 10^3/uL (0.2-0.9); Neutrophils # 5.81 10^3/uL (1.8-7.7); Neutrophils % 76.3 %; Nucleated Red Blood Cells % 0 %; Platelet Count 273 10^3/cmm (130-400); Red Blood Count 3.18 10^6/uL (4.1-5.3); Red Cell Distribution Width 14.5 % (12.1-15.1); White Blood Count 7.6 10^3/uL (4.0-10.0)
[2022-12-28] MEDS: ipratropium-albuterol 3 mL Neb INHALATION ×4 (02:56→20:02)
[2022-12-28 03:02] LABS: Albumin Level 2.8 g/dL (3.5-5.2); Alkaline Phosphatase 121 U/L (40-130); Anion Gap 18.2 (5-19); Blood Urea Nitrogen 22 mg/dL (6-20); Calcium 9.3 mg/dL (8.5-10.5); Carbon Dioxide 30 mmol/L (22-29); Chloride 93 mmol/L (98-107); Globulin 1.7 g/dL (1.3-4.6); Glomerular Filtration Rate 9.7 mL/min (90-130); Glucose 59 mg/dL (65-115); Magnesium 1.5 mg/dL (1.7-2.3); Osmolality Calculated 283 mOsm/kg (285-295); Potassium 5.2 mmol/L (3.5-5.1); Sodium 136 mmol/L (136-145); Total Bilirubin 0.2 mg/dL (0.15-1.2); Total Protein 4.5 g/dL (6.6-8.7)
[2022-12-28 03:08] LABS: Phosphorus 8.2 mg/dL (2.5-4.5)
[2022-12-28 03:36] LABS: Alanine Aminotransferase 10 U/L (0-41); Aspartate Amino Transferase 28 U/L (0-40)
[2022-12-28] MEDS: chlorhexidine gluconate 4% Btl 118 mL 1 APPLIC TOPICAL (04:51)
--- NOTE | 2022-12-28 08:01 | PM.PN ---
Subjective Subjective: Patient is stable. On vent. Off levophed. Vitals/I&O/Wt Last Vital Signs Temp 99.0 F 12/27/22 22:15 Pulse 89 12/28/22 07:54 Resp 16 12/28/22 07:47 BP 112/65 12/28/22 06:00 Pulse Ox 93 12/28/22 07:47 O2 Del Method Mechanical Ventilation 12/28/22 07:44 FiO2 40 12/28/22 07:47 12/27/22 12/28/22 12/28/22 22:59 06:59 14:59 Intake Total 448.476 / 1194.572 190.613 / 1385.185 0 / 0 Output Total 0 / 1112 Balance 448.476 / 82.572 190.613 / 273.185 0 / 0 Weight last 48 hrs Weight 204 lb Weight 206 lb 2.115 oz Weight 202 lb Weight 180 lb Physical Exam Narrative: General: Intubated and sedated Resp: Diminished air entry Cardio: Has grade 3/6 systolic murmur Extremities: No significant edema Urinary Catheter Management: Hong: Cath Placed During This Visit: no Reason for Continuing Indwelling Catheter: Accurate Measurement of Urinary Output in Critically Ill Patients Data 12/29/22 04:06 12/29/22 04:06 A&P Assessment and plan (1) Cardiac arrest with ventricular fibrillation: (2) STEMI (ST elevation myocardial infarction): (3) Chest pain: (4) End-stage renal disease (ESRD): Plan Patient s/p PCI of RCA with orbital arthrectomy and 2 stents Continue aspirin and Plavix. Echo shows normal LV systolic function. Vent management per primary team. Thank you for involving us with care of this patient. We will continue to follow. Please call with questions. Attestations Medical Necessity Statement*: Care expected to cross 2 midnights. Coding Level of Care Code Acute Code for [facility] Diagnoses Cardiac arrest with ventricular fibrillation I46.9; I49.01 STEMI (ST elevation myocardial infarction) I21.3 Chest pain R07.9 End-stage renal disease (ESRD) N18.6
--- NOTE | 2022-12-28 08:09 | XR_ITS ---
WS: [id number] XR chest 1V portable [id number] REASON FOR EXAM: follow up, Post code FINDINGS: Extensive artifact overlying the chest.. The central venous line and endotracheal tube and nasogastric tube appear to remain in proper positio n. No findings of pneumothorax. Lungs are hypoinflated. There is opacification in both lower hemithoraces thoraces most notable on the left forefoot there ar e air bronchograms indicating air space consolidation. Airspace consolidation with air bronchograms noted on the previous examination of 12/27/2022. Right lower hemithorax was clear on 12/27/2022. XR/XR chest 1V portable [id number] IMPRESSION: Progression of opacity in the left lower hemithorax, possibly associated with p leural effusion. Opacity in the lower right hemithorax. Likely airspace consolidation/atelectasi s, possibly with pleural effusion.
[2022-12-28] MEDS: famotidine 20 mg/2 mL INJ 10 MG IVP (09:09)
[2022-12-28] MEDS: acetaminophen 325 mg Tablet 650 MG PO (09:09)
[2022-12-28] MEDS: clopidogrel 75 mg Tablet PO (09:09)
[2022-12-28] MEDS: aspirin 81 mg EC Tablet PO (09:10)
--- NOTE | 2022-12-28 10:00 | PM.PN ---
Subjective Subjective: off pressors Medications: Reviewed: Yes Vitals/I&O/Wt Last Vital Signs Temp 100.5 F H 12/28/22 09:30 Pulse 90 12/28/22 09:30 Resp 16 12/28/22 09:54 BP 145/81 12/28/22 09:30 Pulse Ox 94 12/28/22 09:54 O2 Del Method Mechanical Ventilation 12/28/22 09:30 FiO2 40 12/28/22 09:54 12/27/22 12/28/22 12/28/22 22:59 06:59 14:59 Intake Total 448.476 / 1194.572 190.613 / 1385.185 212.776 / 212.776 Output Total 0 / 1112 Balance 448.476 / 82.572 190.613 / 273.185 212.776 / 212.776 Weight last 48 hrs Weight 92.533 kg Weight 93.5 kg Weight 91.626 kg Weight 81.647 kg Physical Exam Narrative: audiovisual cart nor working exam deferred Urinary Catheter Management: Hong: Cath Placed During This Visit: no Reason for Continuing Indwelling Catheter: Accurate Measurement of Urinary Output in Critically Ill Patients Data 12/28/22 02:14 12/28/22 02:14 A&P Assessment and plan (1) End-stage renal disease (ESRD): 1. End-stage renal disease: On [facility] schedule as outpatient, now presented that is postcardiac arrest and underwent left heart catheter emergently. He is currently on 40% FiO2, HD yestrrday and HD again today Has Hyperkalemia 2. Status postcardiac arrest secondary to STEMI, status post left heart cath and stents 3. Hypertension Attestations Medical Necessity Statement*: per medicine Coding Level of Care Code Acute Code for [facility] Fwd Diagnoses End-stage renal disease (ESRD) N18.6
[2022-12-28] MEDS: propofol 1,000 MG/100 ML INJ 9.8 MG IV (10:52)
[2022-12-28 13:00] LABS: C Reactive Protein 55.7 mg/L (0.0-4.9)
[2022-12-28 13:05] LABS: Procalcitonin 0.88 ng/mL (0-0.5)
[2022-12-28] MEDS: meropenem 1,000 MG in sodium chloride 0.9% (plus) 50 ML 100 MG IV ×2 (13:21→21:55)
[2022-12-28] MEDS: heparin 5,000 unit/mL INJ 1 mL 5000 UNIT SUBCUT (13:21)
[2022-12-28] MEDS: heparin, porcine 1,000 unit/mL INJ 10 mL 10000 UNIT INTRACATH (15:10)
[2022-12-28] MEDS: albumin 12.5 GM/50 ML VIAL IV ×2 (15:13→16:47)
[2022-12-28 15:20] LABS: Glucose Point of Care 65 mg/dL (70-110)
--- NOTE | 2022-12-28 16:21 | P.PN_ITS ---
Subjective Subjective: Patient was seen this morning, remains on 2 of Levophed, remains on sedation, according to nursing staff he does awaken, does not follow commands and is on 40% FiO2, afebrile overnight, Vitals/I&O/Wt Last Vital Signs Temp 100.8 F H 12/28/22 13:30 Pulse 90 12/28/22 14:00 Resp 16 12/28/22 15:13 BP 124/81 12/28/22 13:30 Pulse Ox 95 12/28/22 15:13 O2 Del Method Mechanical Ventilation 12/28/22 13:39 FiO2 40 12/28/22 15:13 12/28/22 12/28/22 12/28/22 06:59 14:59 22:59 Intake Total 190.613 / 1385.185 240.788 / 240.788 50 / 290.788 Output Total 0 / 1112 Balance 190.613 / 273.185 240.788 / 240.788 50 / 290.788 Weight last 48 hrs Weight 92.533 kg Weight 93.5 kg Weight 91.626 kg Physical Exam Const: COMMON NORMALS: no acute distress Resp: COMMON NORMALS: normal respiratory effort, No retractions, No use of accessory muscles and clear to auscultation bilaterally AUSCULTATION: clear to auscultation bilaterally Cardio: COMMON NORMALS: regular rate, regular rhythm, S1 normal heart sound present and S2 normal heart sound present RATE: regular rate RHYTHM: regular rhythm HEART SOUNDS: S1 normal heart sound present and S2 normal heart sound present GI: COMMON NORMALS: Normal to inspection, nondistended, normoactive bowel sounds present Extremity: COMMON NORMALS: no pedal edema Urinary Catheter Management: Hong: Cath Placed During This Visit: no Reason for Continuing Indwelling Catheter: Accurate Measurement of Urinary Output in Critically Ill Patients Data 12/28/22 02:14 12/28/22 02:14 Micro: Microbiology 12/26/22 12:07 Gram Stain - Final Sputum - Endotracheal Tube Aspirate Sputum Culture - Final A&P Assessment and plan (1) STEMI (ST elevation myocardial infarction): (2) Chest pain: (3) End-stage renal disease (ESRD): (4) Right bundle branch block (RBBB) on electrocardiogram (ECG): (5) Hypertension: (6) Polycystic kidney disease: (7) GERD (gastroesophageal reflux disease): (8) Cardiac arrest with ventricular fibrillation: (9) Respiratory failure, acute: (10) Pneumonia: (11) Atrial fibrillation with rapid ventricular response: (12) Shock: Plan 57 yo M with a past medical history significant for polycystic kidney disease, hypertension, GERD, gout, and ESRD on HD admitted s/p cardiac arrest, STEMI with angioplasty and stenting x 2. Acute hypoxic respiratory failure -Likely multifactorial from cardiac arrest, pulmonary edema, pneumonia -Plan -Currently intubated -Minimize tidal volume, minimize PEEP. ? Minimize sedation, Precedex, fentanyl at 25, spontaneous breathing trial. -Continue pulmonary toilet, endotracheal tube suctioning ? Repeat chest x-ray today. ? Patient had febrile episodes throughout the afternoon, with thick viscous endotracheal tube secretions, started on meropenem. -Dialysis today for fluid overload ? On fentanyl, Precedex, propofol for sedation. Altered mental status -Status postcardiac arrest -With concerns for anoxic brain injury -Does awaken according to nursing staff, does not follow commands, pupils equal round reactive to light, does withdraw from pain, Babinski is upward bilaterally -Will minimize sedation, monitor mentation -Will consider sedation medication Shock -Multifactorial, from cardiac arrest, fluid overload, pneumonia -On 2 of Levophed, wean as tolerated, maintain MAP more than 65 Cardiac arrest with ventricular fibrillation -Status post ROSC -Status post STEMI, stent placement x 2 STEMI -Status post angioplasty with stent placement x 2 -Repeat cardiac echocardiogram shows EF of 55 to 60% -Cardiology on consult -On aspirin, Plavix, statin End-stage renal disease -With history of resistant hyperkalemia -Will receive dialysis today Code Status: Full IVF: NS at 100 DVT PPx: SCD's. heparin GI PPx: famotidine ABx: None Diet: NPO Discharge plan: Will determine when appropriate. Attestations Medical Necessity Statement*: Patient requires hospitalization for acute hypoxic respiratory failure, STEMI, altered mental status, end-stage renal disease, shock Coding Level of Care Code Critical Care >/= 30 minutes Critical care time (in minutes): 40 The high probability of a clinically significant, sudden or life threatening deterioration, as referenced in this documentation, required my full and direct attention, intervention and personal management. The critical care time shown is in addition to time spent performing any reported separately billable procedures and includes the following: [x] Data and vital sign review and interpretation [x ] Patient assessment, examination and intervention [x] Medication orders and management [x] Patient/Family updates as able [x] Care Coordination and Documentation. Diagnoses STEMI (ST elevation myocardial infarction) I21.3 Chest pain R07.9 End-stage renal disease (ESRD) N18.6 Right bundle branch block (RBBB) on electrocardiogram (ECG) I45.10 Hypertension I10 Polycystic kidney disease Q61.3 GERD (gastroesophageal reflux disease) K21.9 Cardiac arrest with ventricular fibrillation I46.9; I49.01 Respiratory failure, acute J96.00 Pneumonia J18.9 Atrial fibrillation with rapid ventricular response I48.91 Shock R57.9
--- NOTE | 2022-12-28 16:47 | PC.NURSE ---
Brother/Daughter Melissa Gamez daughter [phone] Erasto Savage brother [phone]
[2022-12-28 18:25] LABS: Glucose Point of Care 70 mg/dL (70-110)
[2022-12-28] MEDS: dexmedetomidine 400 MCG in sodium chloride 0.9% (100 ml) 100 ML IV (20:05)
[2022-12-28 21:18] LABS: Hepatitis B Core AB, Total Non-Reactive (Nonreactive); Hepatitis B Surface AB 49.4 (11.5-1000); Hepatitis B Surface Antigen Non-Reactive (Nonreactive)
[2022-12-28] MEDS: atorvastatin 40 mg Tablet PO (21:56)
[2022-12-28] MEDS: propofol 1,000 MG/100 ML INJ 22.05 MG IV (22:25)
[2022-12-29] VITALS (66 sets, daily range): BP systolic 93–156; BP diastolic 57–90; PULSE 62–110; RESP 11–18; TEMP 36.3–36.6; O2SAT 90–99
[2022-12-29] MEDS: heparin 5,000 unit/mL INJ 1 mL 5000 UNIT SUBCUT ×2 (00:06→13:18)
[2022-12-29] MEDS: ipratropium-albuterol 3 mL Neb INHALATION ×4 (03:20→20:23)
[2022-12-29] MEDS: propofol 1,000 MG/100 ML INJ 22.05 MG IV (03:25)
[2022-12-29 04:22] LABS: Basophils % 0.4 %; Eosinophils # 0.1 10^3/uL (0.0-0.8); Eosinophils % 0.9 %; Hematocrit 29.7 % (42.0-52.0); Hemoglobin 9.2 g/dL (11.7-16.6); Lymphocytes # 1.1 10^3/uL (0.8-4.8); Lymphocytes % 10.6 %; Mean Corpuscular Hemoglobin 29.9 pg (28.0-34.0); Mean Corpuscular Volume 96.4 fl (80-94); Monocytes # 0.6 10^3/uL (0.2-0.9); Monocytes % 5.5 %; Neutrophils # 8.44 10^3/uL (1.8-7.7); Neutrophils % 82.2 %; Nucleated Red Blood Cells % 0 %; Platelet Count 269 10^3/cmm (130-400); Red Blood Count 3.08 10^6/uL (4.1-5.3); Red Cell Distribution Width 14.3 % (12.1-15.1); White Blood Count 10.3 10^3/uL (4.0-10.0)
[2022-12-29 04:43] LABS: Albumin Level 3.1 g/dL (3.5-5.2); Chloride 94 mmol/L (98-107); Lactate (Lactic Acid level) 1.3 mmol/L (0.5-2.2); Potassium 4.5 mmol/L (3.5-5.1); Sodium 135 mmol/L (136-145)
[2022-12-29 04:44] LABS: Glucose Point of Care 70 mg/dL (70-110)
[2022-12-29 04:44] LABS: Glucose Point of Care 76 mg/dL (70-110)
--- NOTE | 2022-12-29 04:49 | PC.NURSE ---
Patient titrated propofol to assess neurological status. Able to assess cash specialist, patients opens eyes on command and appropriate cash specialist for responses. Patient can also move legs up and down when asked to. Propofol had to be increased due to agitation and needing oral secretions suctioned out.
[2022-12-29 04:54] LABS: Procalcitonin 1.02 ng/mL (0-0.5)
[2022-12-29 05:19] LABS: Alanine Aminotransferase 55 U/L (0-41); Alkaline Phosphatase 80 U/L (40-130); Anion Gap 20.5 (5-19); Aspartate Amino Transferase 32 U/L (0-40); Blood Urea Nitrogen 20 mg/dL (6-20); C Reactive Protein 11.5 mg/L (0.0-4.9); Calcium 8.4 mg/dL (8.5-10.5); Carbon Dioxide 25 mmol/L (22-29); Globulin 2.9 g/dL (1.3-4.6); Glomerular Filtration Rate 116.2 mL/min (90-130); Glucose 129 mg/dL (65-115); Magnesium 2.1 mg/dL (1.7-2.3); Osmolality Calculated 284 mOsm/kg (285-295); Phosphorus 3.5 mg/dL (2.5-4.5); Total Bilirubin 0.2 mg/dL (0.15-1.2)
[2022-12-29 05:24] LABS: Glucose Point of Care 76 mg/dL (70-110)
[2022-12-29] MEDS: meropenem 1,000 MG in sodium chloride 0.9% (plus) 50 ML 100 MG IV ×3 (05:26→22:00)
[2022-12-29 05:33] LABS: ABG PCO2 37.2 mmHg (35-45); ABG PH Result 7.51 (7.35-7.45); Base Excess ABG 5.8 mmol/L (-2.0-2.0); Blood Gas Operator Identificat JB; Blood Gas Sample Site Brachial, right; Blood Gas Sample Type Arterial; HCO3 ABG 29.3 mmol/L (22-26); Oxygen Device VENT; PO2 ABG 66.9 mmHg (80.0-100.0)
--- NOTE | 2022-12-29 07:00 | XRR_ITS ---
PROCEDURE INFORMATION: Exam: XR Chest Exam date and time: 12/29/2022 7:20 AM Age: 57 years old Clinical indication: Shortness of breath; Additional info: SOB TECHNIQUE: Imaging protocol: Radiologic exam of the chest. Views: 1 view. COMPARISON: CR XR chest 1V portable [id number] 12/28/2022 8:30 AM FINDINGS: Tubes, catheters and devices: Endotracheal tube, nasogastric tube and right IJ central venous catheter in place. Lungs: Unremarkable. No consolidation. Pleural spaces: Bilateral pleural effusions Heart/Mediastinum: Cardiomegaly with mild congestion. Bones/joints: Unremarkable. XR/XR chest 1V portable [id number] IMPRESSION: Cardiomegaly with mild congestion and bilateral pleural effusions
[2022-12-29] MEDS: famotidine 20 mg/2 mL INJ 10 MG IVP (08:23)
[2022-12-29] MEDS: aspirin 81 mg EC Tablet PO (08:24)
[2022-12-29] MEDS: clopidogrel 75 mg Tablet PO (08:24)
[2022-12-29 08:26] LABS: Glucose Point of Care 79 mg/dL (70-110)
[2022-12-29] MEDS: dexmedetomidine 400 MCG in sodium chloride 0.9% (100 ml) 100 ML 19.25 MCG IV (08:45)
--- NOTE | 2022-12-29 09:16 | PM.PN ---
Subjective Subjective: Patient is stable. Off levophed Vitals/I&O/Wt Last Vital Signs Temp 97.5 F L 12/29/22 09:00 Pulse 71 12/29/22 09:00 Resp 14 12/29/22 09:00 BP 114/66 12/29/22 09:00 Pulse Ox 95 12/29/22 09:00 O2 Del Method Mechanical Ventilation 12/29/22 09:00 FiO2 30 12/29/22 09:00 12/28/22 12/29/22 12/29/22 22:59 06:59 14:59 Intake Total 1227.491 / 1468.279 326.865 / 1795.144 145.174 / 145.174 Output Total 2521 / 2521 Balance -1293.509 / -1052.721 326.865 / -725.856 145.174 / 145.174 Weight last 48 hrs Weight 194 lb Weight 200 lb 9.93 oz Weight 204 lb Physical Exam Narrative: General: Intubated and sedated Resp: Diminished air entry Cardio: Has grade 3/6 systolic murmur Extremities: No significant edema Urinary Catheter Management: Hong: Cath Placed During This Visit: no Reason for Continuing Indwelling Catheter: Accurate Measurement of Urinary Output in Critically Ill Patients Data 12/30/22 04:39 12/30/22 04:39 Micro: Microbiology 12/28/22 17:50 Blood Culture - Preliminary Blood SPECIMEN COLLECTED 12/28/22 11:45 Gram Stain - Final Sputum - Endotracheal Tube Aspirate 12/28/22 16:40 Blood Culture - Preliminary Blood SPECIMEN COLLECTED 12/26/22 12:07 Gram Stain - Final Sputum - Endotracheal Tube Aspirate Sputum Culture - Final A&P Assessment and plan (1) Cardiac arrest with ventricular fibrillation: (2) STEMI (ST elevation myocardial infarction): (3) Chest pain: (4) End-stage renal disease (ESRD): Plan Patient is stable. Continue dual antiplatelet therapy with aspirin and Plavix. LV systolic function was normal. Plan for extubation today Starting metoprolol 12.5mg bid Thank you for involving us with care of this patient. We will continue to follow. Please call with questions. Attestations Medical Necessity Statement*: Care expected to cross 2 midnights. Coding Level of Care Code Acute Code for [facility] Diagnoses Cardiac arrest with ventricular fibrillation I46.9; I49.01 STEMI (ST elevation myocardial infarction) I21.3 Chest pain R07.9 End-stage renal disease (ESRD) N18.6
--- NOTE | 2022-12-29 09:24 | PM.PN ---
Subjective Subjective: on vent Medications: Reviewed: Yes Vitals/I&O/Wt Last Vital Signs Temp 97.5 F L 12/29/22 09:00 Pulse 71 12/29/22 09:00 Resp 14 12/29/22 09:00 BP 114/66 12/29/22 09:00 Pulse Ox 95 12/29/22 09:00 O2 Del Method Mechanical Ventilation 12/29/22 09:00 FiO2 30 12/29/22 09:00 12/28/22 12/29/22 12/29/22 22:59 06:59 14:59 Intake Total 1227.491 / 1468.279 326.865 / 1795.144 145.174 / 145.174 Output Total 2521 / 2521 Balance -1293.509 / -1052.721 326.865 / -725.856 145.174 / 145.174 Weight last 48 hrs Weight 87.997 kg Weight 91 kg Weight 92.533 kg Physical Exam Narrative: on vent Urinary Catheter Management: Hong: Cath Placed During This Visit: no Reason for Continuing Indwelling Catheter: Accurate Measurement of Urinary Output in Critically Ill Patients Data 12/29/22 04:06 12/29/22 04:06 Micro: Microbiology 12/28/22 17:50 Blood Culture - Preliminary Blood SPECIMEN COLLECTED 12/28/22 11:45 Gram Stain - Final Sputum - Endotracheal Tube Aspirate 12/28/22 16:40 Blood Culture - Preliminary Blood SPECIMEN COLLECTED 12/26/22 12:07 Gram Stain - Final Sputum - Endotracheal Tube Aspirate Sputum Culture - Final A&P Assessment and plan (1) End-stage renal disease (ESRD): 1. End-stage renal disease: On [facility] schedule as outpatient, now presented that is postcardiac arrest and underwent left heart catheter emergently. He is currently on 40% FiO2 intubated , HD yesterday 2. Status postcardiac arrest secondary to STEMI, status post left heart cath and stents 3. Hypertension Attestations Medical Necessity Statement*: per medicine Coding Level of Care Code Acute Code for [facility] Diagnoses End-stage renal disease (ESRD) N18.6
--- NOTE | 2022-12-29 10:02 | PC.SOCIAL ---
Imm update Imm not updated as patient is intubated and is not expected to dc in the next 24-48 hours.
[2022-12-29] MEDS: metoprolol tartrate 25 mg Tablet 12.5 MG PO (10:36)
[2022-12-29] MEDS: haloperidol inj 5 mg/mL INJ 1 mL 2 MG IVP (13:18)
[2022-12-29] MEDS: dexmedetomidine 400 MCG in sodium chloride 0.9% (100 ml) 100 ML 28.87 MCG IV (13:31)
--- NOTE | 2022-12-29 14:02 | PC.NURSE ---
Extubated 1355 by MD MITCHEL at bedside. Placed on 4LNC. Patient awake following commands, complains of throat discomfort.
--- NOTE | 2022-12-29 14:24 | P.PN_ITS ---
Subjective Subjective: - Patient was examined multiple times throughout the morning -Early in the morning, remains intubated, on minimal sedation, on 1.2 of Precedex, 100 of fentanyl, he does awaken, on 30% FiO2 afebrile overnight, normotensive off Levophed, received dialysis to yesterday, 2 L off -Reexamined, fentanyl is off still on 1.2 of Precedex, he easily becomes agitated, tries to sit up in bed, monitor over the next hour -Reexamined in the afternoon, he is alert to person, he follows commands he squeezes my fingers he is able to close his eyes, wiggles his toes, he follows me, around the room -At roughly 2:15 PM, patient was extubated to 3 L nasal cannula, examined, he is alert to person, not to place, not to time he follows commands, resting comfortably, complaining of a sore throat, -He tells me why is he here in the hospital, I discussed his cardiac arrest, he is STEMI, he required 2 stents, his respiratory failure, his pneumonia, Vitals/I&O/Wt Last Vital Signs Temp 97.5 F L 12/29/22 14:00 Pulse 74 12/29/22 14:00 Resp 14 12/29/22 14:00 BP 150/85 12/29/22 14:00 Pulse Ox 96 12/29/22 14:00 O2 Del Method Nasal Cannula 12/29/22 14:00 O2 Flow Rate 4 12/29/22 14:00 FiO2 30 12/29/22 13:39 12/28/22 12/29/22 12/29/22 22:59 06:59 14:59 Intake Total 1227.491 / 1468.279 326.865 / 1795.144 345.341 / 345.341 Output Total 2521 / 2521 Balance -1293.509 / -1052.721 326.865 / -725.856 345.341 / 345.341 Weight last 48 hrs Weight 87.997 kg Weight 91 kg Weight 92.533 kg Physical Exam Const: COMMON NORMALS: no acute distress Eye: OTHER: Pupils equal round reactive to light Resp: COMMON NORMALS: normal respiratory effort, No retractions, No use of accessory muscles and clear to auscultation bilaterally AUSCULTATION: clear to auscultation bilaterally Cardio: COMMON NORMALS: regular rate, regular rhythm, S1 normal heart sound present and S2 normal heart sound present RATE: regular rate RHYTHM: regular rhythm HEART SOUNDS: S1 normal heart sound present and S2 normal heart sound present GI: COMMON NORMALS: Normal to inspection, nondistended, normoactive bowel sounds present Extremity: COMMON NORMALS: capillary refill normal and no pedal edema Urinary Catheter Management: Hong: Cath Placed During This Visit: no Reason for Continuing Indwelling Catheter: Accurate Measurement of Urinary Output in Critically Ill Patients Data 12/29/22 04:06 12/29/22 04:06 Micro: Microbiology 12/28/22 11:45 Gram Stain - Final Sputum - Endotracheal Tube Aspirate Sputum Culture - Preliminary 12/28/22 17:50 Blood Culture - Preliminary Blood SPECIMEN COLLECTED 12/28/22 16:40 Blood Culture - Preliminary Blood SPECIMEN COLLECTED 12/26/22 12:07 Gram Stain - Final Sputum - Endotracheal Tube Aspirate Sputum Culture - Final A&P Assessment and plan (1) STEMI (ST elevation myocardial infarction): (2) Chest pain: (3) End-stage renal disease (ESRD): (4) Right bundle branch block (RBBB) on electrocardiogram (ECG): (5) Hypertension: (6) Polycystic kidney disease: (7) GERD (gastroesophageal reflux disease): (8) Cardiac arrest with ventricular fibrillation: (9) Respiratory failure, acute: (10) Pneumonia: (11) Atrial fibrillation with rapid ventricular response: (12) Shock: (13) Pulmonary edema: (14) Bilateral pleural effusion: Plan 57 yo M with a past medical history significant for polycystic kidney disease, hypertension, GERD, gout, and ESRD on HD admitted s/p cardiac arrest, STEMI with angioplasty and stenting x 2. Acute hypoxic respiratory failure -Likely multifactorial from cardiac arrest, pulmonary edema, pneumonia -Plan -Currently extubated, on 3L -Continue Precedex for agitation -Continue pulmonary toilet ?Continue meropenem for pneumonia -Status post dialysis yesterday 2 L off Pneumonia -Follow sputum cultures -Follow blood cultures -Continue meropenem Altered mental status -Status postcardiac arrest -Follows commands -Will minimize sedation, monitor mentation Shock, resolved -Multifactorial, from cardiac arrest, fluid overload, pneumonia Cardiac arrest with ventricular fibrillation -Status post ROSC -Status post STEMI, stent placement x 2 STEMI -Status post angioplasty with stent placement x 2 -Repeat cardiac echocardiogram shows EF of 55 to 60% -Cardiology on consult -On aspirin, Plavix, statin End-stage renal disease -With history of resistant hyperkalemia -Status post dialysis yesterday Code Status: Full DVT PPx: SCD's. heparin GI PPx: famotidine ABx: None Diet: NPO Discharge plan: Will determine when appropriate. Extubated today, monitor respiratory status closely, continue antibiotic therapy, will hold off on dialysis until Lisa, monitor mentation, monitor respiratory status, speech therapy eval Attestations Medical Necessity Statement*: Patient requires hospitalization for cardiac arrest, acute hypoxic respiratory failure, pneumonia, fluid overload, shock, STEMI, and stage renal disease Coding Level of Care Code Critical Care >/= 30 minutes Critical care time (in minutes): 50 The high probability of a clinically significant, sudden or life threatening deterioration, as referenced in this documentation, required my full and direct attention, intervention and personal management. The critical care time shown is in addition to time spent performing any reported separately billable procedures and includes the following: [x] Data and vital sign review and interpretation [x ] Patient assessment, examination and intervention [x] Medication orders and management [x] Patient/Family updates as able [x] Care Coordination and Documentation. Diagnoses STEMI (ST elevation myocardial infarction) I21.3 Chest pain R07.9 End-stage renal disease (ESRD) N18.6 Right bundle branch block (RBBB) on electrocardiogram (ECG) I45.10 Hypertension I10 Polycystic kidney disease Q61.3 GERD (gastroesophageal reflux disease) K21.9 Cardiac arrest with ventricular fibrillation I46.9; I49.01 Respiratory failure, acute J96.00 Pneumonia J18.9 Atrial fibrillation with rapid ventricular response I48.91 Shock R57.9 Pulmonary edema J81.1 Bilateral pleural effusion J90
--- NOTE | 2022-12-29 15:03 | PC.SLP ---
Pt not ready for ROUSTABOUT eval at this time. ROUSTABOUT will follow-up with the pt tomorrow.
[2022-12-29] MEDS: dexmedetomidine 400 MCG in sodium chloride 0.9% (100 ml) 100 ML 14.44 MCG IV (18:53)
--- NOTE | 2022-12-29 20:49 | PC.NURSE ---
Addendum entered by Bharati Degroot RN 12/29/22 21:10: Witness to 130ml Fentanyl Waste. Original Note: 130mls of Fentanyl wasted with Bharati MORRISON @2049. Mar titrated to 0 for start of shift although fentanyl had not been running since extubation during prior shift.
--- NOTE | 2022-12-29 21:32 | PC.NURSE ---
Patient repeatedly pulling at scds. Instructed on purpose of them for dvt prevention, patient pulled hose off again are requested removal. Precedex titrated up due to irritability and unpredictable behavior.
--- NOTE | 2022-12-29 22:20 | PC.NURSE ---
Evening PO meds held, patient is still AO only to person and having difficulty expectorating thick secretions. Voice is garbled and patient elicits a weak gag reflex during suctioning.
[2022-12-30] VITALS (86 sets, daily range): BP systolic 125–190; BP diastolic 56–102; PULSE 67–100; RESP 16–35; TEMP 36.9–37.5; O2SAT 86–100
[2022-12-30] MEDS: heparin 5,000 unit/mL INJ 1 mL 5000 UNIT SUBCUT ×2 (00:06→11:24)
[2022-12-30] MEDS: dexmedetomidine 400 MCG in sodium chloride 0.9% (100 ml) 100 ML 24.06 MCG IV (00:35)
[2022-12-30] MEDS: ipratropium-albuterol 3 mL Neb INHALATION ×4 (02:33→20:01)
--- NOTE | 2022-12-30 03:56 | PC.NURSE ---
Patient repeatedly pulls off pulse Ox and oxygen nasal cannula. Frequent reorientation provided. Patient reported seeing ticks all over the bed and exclaiming get my keys they are right there . Patient has called out looking for Melissa as well as asking where the couch is. Precedex titrated up to max dose although patient has not rested much. Denies extensive alcohol use although did state he has drank in the last week.
[2022-12-30] MEDS: dexmedetomidine 400 MCG in sodium chloride 0.9% (100 ml) 100 ML 28.87 MCG IV (04:54)
[2022-12-30] MEDS: meropenem 1,000 MG in sodium chloride 0.9% (plus) 50 ML 100 MG IV ×2 (04:57→13:23)
[2022-12-30 05:03] LABS: Basophils % 0.4 %; Eosinophils # 0.2 10^3/uL (0.0-0.8); Eosinophils % 1.5 %; Hematocrit 30.8 % (42.0-52.0); Hemoglobin 9.7 g/dL (11.7-16.6); Lymphocytes # 0.5 10^3/uL (0.8-4.8); Lymphocytes % 5.1 %; Mean Corpuscular HGB Conc 31.5 g/dL (30.0-36.0); Mean Corpuscular Hemoglobin 29.8 pg (28.0-34.0); Mean Corpuscular Volume 94.8 fl (80-94); Mean Platelet Volume 9.8 fL (7.4-10.4); Monocytes # 0.7 10^3/uL (0.2-0.9); Monocytes % 6.5 %; Neutrophils # 8.97 10^3/uL (1.8-7.7); Neutrophils % 85.9 %; Nucleated Red Blood Cells % 0 %; Platelet Count 268 10^3/cmm (130-400); Red Blood Count 3.25 10^6/uL (4.1-5.3); Red Cell Distribution Width 13.9 % (12.1-15.1); White Blood Count 10.4 10^3/uL (4.0-10.0)
[2022-12-30 05:14] LABS: Alanine Aminotransferase 8 U/L (0-41); Albumin Level 3.1 g/dL (3.5-5.2); Alkaline Phosphatase 132 U/L (40-130); Anion Gap 23.2 (5-19); Aspartate Amino Transferase 21 U/L (0-40); Blood Urea Nitrogen 26 mg/dL (6-20); C Reactive Protein 160.3 mg/L (0.0-4.9); Calcium 9.6 mg/dL (8.5-10.5); Carbon Dioxide 26 mmol/L (22-29); Chloride 92 mmol/L (98-107); Globulin 2.2 g/dL (1.3-4.6); Glomerular Filtration Rate 9.4 mL/min (90-130); Glucose 69 mg/dL (65-115); Magnesium 1.8 mg/dL (1.7-2.3); Osmolality Calculated 285 mOsm/kg (285-295); Potassium 5.2 mmol/L (3.5-5.1); Sodium 136 mmol/L (136-145); Total Bilirubin 0.3 mg/dL (0.15-1.2); Total Protein 5.3 g/dL (6.6-8.7)
[2022-12-30 05:19] LABS: Lactate (Lactic Acid level) 0.9 mmol/L (0.5-2.2)
[2022-12-30 05:25] LABS: Procalcitonin 1.05 ng/mL (0-0.5)
[2022-12-30 05:49] LABS: NT Pro B Type Natriuretic Pept 37857 pg/mL (0-125)
[2022-12-30 06:13] LABS: Phosphorus 10.6 mg/dL (2.5-4.5)
[2022-12-30 07:44] LABS: Glucose Point of Care 85 mg/dL (70-110)
--- NOTE | 2022-12-30 08:48 | P.PN_ITS ---
Subjective Subjective: Patient is extubated. No chest pain. Vitals/I&O/Wt Last Vital Signs Temp 98.4 F 12/30/22 07:15 Pulse 81 12/30/22 08:00 Resp 25 H 12/30/22 08:00 BP 153/85 12/30/22 08:00 Pulse Ox 95 12/30/22 08:00 O2 Del Method Nasal Cannula 12/30/22 07:45 O2 Flow Rate 2.5 12/30/22 07:45 FiO2 30 12/29/22 13:39 12/29/22 12/30/22 12/30/22 22:59 06:59 14:59 Intake Total 214.217 / 559.558 235.664 / 795.222 37.372 / 37.372 Output Total Balance 204.217 / 549.558 228.664 / 778.222 37.372 / 37.372 Weight last 48 hrs Weight 198 lb Weight 194 lb Weight 200 lb 9.93 oz Physical Exam Narrative: GENERAL: Patient is alert,confused NECK: No jugular vein distension. [] HEENT: No cyanosis. No icterus. No pallor. [] HEART: Regular S1 and S2. Grade 3/6 systolic murmur LUNGS: Diminished air entry CENTRAL NERVOUS SYSTEM: Grossly nonfocal. [] EXTREMITIES: Lower extremities with 1+ edema bilaterally. Urinary Catheter Management: Hong: Cath Placed During This Visit: no Reason for Continuing Indwelling Catheter: Accurate Measurement of Urinary Output in Critically Ill Patients Data 12/31/22 05:01 12/31/22 05:01 Micro: Microbiology 12/28/22 17:50 Blood Culture - Preliminary Blood NEGATIVE TO DATE 12/28/22 16:40 Blood Culture - Preliminary Blood NEGATIVE TO DATE 12/28/22 11:45 Gram Stain - Final Sputum - Endotracheal Tube Aspirate Sputum Culture - Preliminary A&P Assessment and plan (1) Cardiac arrest with ventricular fibrillation: (2) STEMI (ST elevation myocardial infarction): (3) Chest pain: (4) End-stage renal disease (ESRD): Plan Patient is overall stable. Continue dual antiplatelet therapy with aspirin and Plavix. Will uptitrate metoprolol to 50 mg twice daily. High intensity statin therapy Thank you for involving us with care of this patient. We will continue to follow. Please call with questions. Attestations Medical Necessity Statement*: Care expected to cross 2 midnights. Coding Level of Care Code Acute Code for [facility] Fwd Diagnoses Cardiac arrest with ventricular fibrillation I46.9; I49.01 STEMI (ST elevation myocardial infarction) I21.3 Chest pain R07.9 End-stage renal disease (ESRD) N18.6
[2022-12-30] MEDS: famotidine 20 mg/2 mL INJ 10 MG IVP (09:29)
[2022-12-30] MEDS: aspirin 81 mg EC Tablet PO (09:29)
[2022-12-30] MEDS: clopidogrel 75 mg Tablet PO (09:29)
[2022-12-30] MEDS: metoprolol tartrate 25 mg Tablet 50 MG PO ×2 (09:32→21:59)
[2022-12-30] MEDS: heparin, porcine 1,000 unit/mL INJ 10 mL 10000 UNIT HE (09:40)
[2022-12-30] MEDS: dexmedetomidine 400 MCG in sodium chloride 0.9% (100 ml) 100 ML 16.84 MCG IV (11:24)
--- NOTE | 2022-12-30 12:59 | CTR_ITS ---
PROCEDURE INFORMATION: Exam: CT Head Without Contrast Exam date and time: 12/30/2022 2:29 PM Age: 57 years old Clinical indication: Altered mental status/memory loss; Additional info: AMS.No history of trauma or recent surgery is provided. TECHNIQUE: Imaging protocol: Computed tomography of the head without contrast. 325image(s) are provided. Radiation optimization: All CT scans at this facility use at least one of these dose optimization techniques: automated exposure control; mA and/or kV adjustment per patient size (includes targeted exams where dose is matched to clinical indication); or iterative reconstruction. Other technique: Axial images are available with sagittal and coronal reconstruction views. Automated dose exposure control is utilized. The DLP is 1143.18. REPORTING DATA: Count of CT and Cardiac NM exams in prior 12 months: This patient has received 3 known CTs and 0 known cardiac nuclear medicine studies in the 12 months prior to the current study. COMPARISON: CT head wo con* [id number] 07/22/2022 10:32 PM RADIATION DOSE METRICS: Total DLP (mGy-cm): 1143.18 FINDINGS: Brain: There are moderate cerebral atrophic changes overall.There are chronic periventricular white matter changes present.There are central lacunar changes demonstrated.Partially empty sella variant is demonstrated.No mass effect or layering hemorrhage is appreciated. Paulson, white matter differentiation appears maintained. Scattered dural chronic calcifications are appreciated. Cerebral ventricles: No interval hydrocephalus is appreciated. Paranasal sinuses: There is some chronic sinusitis appearance overall with maxillary sinus predominance. Mastoid air cells: There is some minimal mucosal thickening and trace fluid of the mastoid air cells with incomplete overall aeration. Orbital cavities: Symmetric appearance of the orbital soft tissues is demonstrated. Bones/joints: Osseous alignment is maintained.No interval displaced fracture or dislocation is appreciated. There is spotty decreased bone mineralization overall. Soft tissues: No radiopaque foreign body or subcutaneous emphysema is appreciated. Vasculature: There is slight increased density of the vessels which could be seen with atherosclerotic change as well as slow flow. Other findings: No other significant interval changes are appreciated. CT/CT head wo con* [id number] IMPRESSION: No interval mass effect, layering hemorrhage or hydrocephalus is demonstrated. No significant interval intracranial changes are appreciated.
[2022-12-30] MEDS: amlodipine 10 mg Tablet PO (13:23)
[2022-12-30] MEDS: sertraline 50 mg Tablet PO (13:23)
[2022-12-30] MEDS: levothyroxine 75 mcg Tablet PO (13:23)
--- NOTE | 2022-12-30 14:49 | P.PN_ITS ---
Subjective Subjective: Patient was seen this week, he is alert to person, to place, not to time, continues to complain of generalized weakness, no fevers, no chills, has a cough, he follows commands, still a bit drowsy, still remains on Precedex drip, which is being weaned off, pupils equal round reactive to light, has generalized weakness but equal strength bilateral upper and lower extremities, no facial droop, no slurring of his words, he is a bit foggy in terms of his answers that provides Vitals/I&O/Wt Last Vital Signs Temp 98.8 F 12/30/22 13:13 Pulse 80 12/30/22 13:38 Resp 16 12/30/22 13:35 BP 168/85 12/30/22 13:13 Pulse Ox 96 12/30/22 13:35 O2 Del Method Nasal Cannula 12/30/22 13:35 O2 Flow Rate 2 12/30/22 13:35 FiO2 30 12/29/22 13:39 12/29/22 12/30/22 12/30/22 22:59 06:59 14:59 Intake Total 214.217 / 559.558 235.664 / 795.222 561.739 / 561.739 Output Total 2500 / 2500 Balance 204.217 / 549.558 228.664 / 778.222 -1938.261 / -1938.261 Weight last 48 hrs Weight 87.5 kg Weight 89.811 kg Weight 87.997 kg Weight 91 kg Physical Exam Const: COMMON NORMALS: no acute distress Resp: COMMON NORMALS: normal respiratory effort, No retractions, No use of accessory muscles and clear to auscultation bilaterally AUSCULTATION: clear to auscultation bilaterally Cardio: COMMON NORMALS: regular rate, regular rhythm, S1 normal heart sound present and S2 normal heart sound present RATE: regular rate RHYTHM: regular rhythm HEART SOUNDS: S1 normal heart sound present and S2 normal heart sound present GI: COMMON NORMALS: Normal to inspection, nondistended, normoactive bowel soun ds present and non-tender Extremity: COMMON NORMALS: no pedal edema Urinary Catheter Management: Hong: Cath Placed During This Visit: no Reason for Continuing Indwelling Catheter: Accurate Measurement of Urinary Output in Critically Ill Patients Data 12/30/22 04:39 12/30/22 04:39 Micro: Microbiology 12/28/22 11:45 Gram Stain - Final Sputum - Endotracheal Tube Aspirate Sputum Culture - Final Haemophilus Influenzae 12/28/22 17:50 Blood Culture - Preliminary Blood NEGATIVE TO DATE 12/28/22 16:40 Blood Culture - Preliminary Blood NEGATIVE TO DATE A&P Assessment and plan (1) STEMI (ST elevation myocardial infarction): (2) Chest pain: (3) End-stage renal disease (ESRD): (4) Right bundle branch block (RBBB) on electrocardiogram (ECG): (5) Hypertension: (6) Polycystic kidney disease: (7) GERD (gastroesophageal reflux disease): (8) Cardiac arrest with ventricular fibrillation: (9) Respiratory failure, acute: (10) Pneumonia: (11) Atrial fibrillation with rapid ventricular response: (12) Shock: (13) Pulmonary edema: (14) Bilateral pleural effusion: (15) Haemophilus influenzae pneumonia: Plan 57 yo M with a past medical history significant for polycystic kidney disease, hypertension, GERD, gout, and ESRD on HD admitted s/p cardiac arrest, STEMI with angioplasty and stenting x 2. Acute hypoxic respiratory failure -Likely multifactorial from cardiac arrest, pulmonary edema, Haemophilus influenzae pneumonia -Plan -Currently extubated, on 3L -Continue Precedex for agitation, will wean off -Continue pulmonary toilet ?Continue meropenem for pneumonia -Receiving dialysis this morning Haemophilus influenzae pneumonia -Follow sputum cultures -Follow blood cultures -Continue meropenem Altered mental status -Status postcardiac arrest -Follows commands, still has mental fogginess, will order CT of the head -Will minimize sedation, monitor mentation Shock, resolved -Multifactorial, from cardiac arrest, fluid overload, pneumonia Cardiac arrest with ventricular fibrillation -Status post ROSC -Status post STEMI, stent placement x 2 STEMI -Status post angioplasty with stent placement x 2 -Repeat cardiac echocardiogram shows EF of 55 to 60% -Cardiology on consult -On aspirin, Plavix, statin End-stage renal disease -With history of resistant hyperkalemia -Status post dialysis yesterday Code Status: Full DVT PPx: SCD's. heparin GI PPx: famotidine ABx: None Diet: NPO Discharge plan: Will determine when appropriate. Up out of bed, speech therapy eval, PT OT, CT of the head, will receive dialysis, continue meropenem, will consider de-escalation, out of ICU, wean off Precedex for agitation Attestations Medical Necessity Statement*: Patient requires hospitalization for haemophilus influenza pneumonia, STEMI, postcardiac arrest, altered mental status, agitation on Precedex, Coding Level of Care Code Critical Care >/= 30 minutes Critical care time (in minutes): 45 The high probability of a clinically significant, sudden or life threatening deterioration, as referenced in this documentation, required my full and direct attention, intervention and personal management. The critical care time shown is in addition to time spent performing any reported separately billable procedures and includes the following: [x] Data and vital sign review and interpretation [x ] Patient assessment, examination and intervention [x] Medication orders and management [x] Patient/Family updates as able [x] Care Coordination and Documentation. Diagnoses STEMI (ST elevation myocardial infarction) I21.3 Chest pain R07.9 End-stage renal disease (ESRD) N18.6 Right bundle branch block (RBBB) on electrocardiogram (ECG) I45.10 Hypertension I10 Polycystic kidney disease Q61.3 GERD (gastroesophageal reflux disease) K21.9 Cardiac arrest with ventricular fibrillation I46.9; I49.01 Respiratory failure, acute J96.00 Pneumonia J18.9 Atrial fibrillation with rapid ventricular response I48.91 Shock R57.9 Pulmonary edema J81.1 Bilateral pleural effusion J90 Haemophilus influenzae pneumonia J14
--- NOTE | 2022-12-30 14:52 | PM.PN ---
Subjective Subjective: s/p HD this Am extubated Medications: Reviewed: Yes Vitals/I&O/Wt Last Vital Signs Temp 98.8 F 12/30/22 13:13 Pulse 80 12/30/22 13:38 Resp 16 12/30/22 13:35 BP 168/85 12/30/22 13:13 Pulse Ox 96 12/30/22 13:35 O2 Del Method Nasal Cannula 12/30/22 13:35 O2 Flow Rate 2 12/30/22 13:35 FiO2 30 12/29/22 13:39 12/29/22 12/30/22 12/30/22 22:59 06:59 14:59 Intake Total 214.217 / 559.558 235.664 / 795.222 561.739 / 561.739 Output Total 2500 / 2500 Balance 204.217 / 549.558 228.664 / 778.222 -1938.261 / -1938.261 Weight last 48 hrs Weight 87.5 kg Weight 89.811 kg Weight 87.997 kg Weight 91 kg Physical Exam Narrative: extubated Urinary Catheter Management: Hong: Cath Placed During This Visit: no Reason for Continuing Indwelling Catheter: Accurate Measurement of Urinary Output in Critically Ill Patients Data 12/30/22 04:39 12/30/22 04:39 Micro: Microbiology 12/28/22 11:45 Gram Stain - Final Sputum - Endotracheal Tube Aspirate Sputum Culture - Final Haemophilus Influenzae 12/28/22 17:50 Blood Culture - Preliminary Blood NEGATIVE TO DATE 12/28/22 16:40 Blood Culture - Preliminary Blood NEGATIVE TO DATE A&P Assessment and plan (1) End-stage renal disease (ESRD): 1. End-stage renal disease: On [facility] schedule as outpatient, now presented that is postcardiac arrest and underwent left heart catheter emergently. He is currently extubated s/p HD this Am 2. Status postcardiac arrest secondary to STEMI, status post left heart cath and stents 3. Hypertension 4. Hyperkalemia , Mild , monitor 5. Anemia Attestations Medical Necessity Statement*: per medicine Coding Level of Care Code Acute Code for g Fwd Diagnoses End-stage renal disease (ESRD) N18.6
--- NOTE | 2022-12-30 19:38 | PC.NURSE ---
SHift SUmmary: Uneventful shift. Patient had 2L fluid removed form dialysis this morning. Worked with PT and walked about 30 feet in his room and was up to a chair for about 3 hours, though he is extremely weak and requires at least a 1 person assist and a walker. Mental status has improved compared to yesterday, but he is still altered. Can correctly answer person, place, time, and situation questions, but he occaisonally has hallucinations and gets confused about simple objects such as what a gauze square is and doesn't know how to work his own cell phone which i have previously seen him proficiently use on previous stays. Patient is also very impulsive and doesn't follow safety instructions. Unsure if this is due confusion or lack of compliance (nursing staff is familiar with this patient and he has a history of noncompliance). Impulsiveness, failure to follow safety instructions, weakness, and confusion have required constant monitoring in ICU. He is now in Med[facility] with a 1:1 sitter. 1 bowel movement today.
[2022-12-30] MEDS: atorvastatin 40 mg Tablet PO (21:59)
[2022-12-31] VITALS (28 sets, daily range): BP systolic 105–204; BP diastolic 60–102; PULSE 86–144; RESP 16–34; TEMP 36.4–36.8; O2SAT 91–98; BMI 28.3
[2022-12-31] MEDS: heparin 5,000 unit/mL INJ 1 mL 5000 UNIT SUBCUT ×2 (00:03→19:39)
[2022-12-31] MEDS: meropenem 1,000 MG in sodium chloride 0.9% (plus) 50 ML 100 MG IV ×2 (00:03→19:52)
[2022-12-31] MEDS: ipratropium-albuterol 3 mL Neb INHALATION ×2 (01:49→08:04)
[2022-12-31] MEDS: haloperidol inj 5 mg/mL INJ 1 mL IM (02:07)
--- NOTE | 2022-12-31 03:08 | PC.NURSE ---
@0200 pt agitated, seeing snakes in room, verbalized wanting to leave, reasoning and redirection unsuccessful, call placed to , order for Haldol IM 5 mg received, pt made aware and agreeable, pt refused to go back to room but not verbalizing desire to leave, pt moved from 259-1 to 263, pt compliant and ambulated to new room, cooperative and pleasant. pt has been awake most of the night
[2022-12-31 05:15] LABS: Basophils % 0.3 %; Eosinophils # 0.1 10^3/uL (0.0-0.8); Eosinophils % 0.8 %; Hematocrit 32.2 % (42.0-52.0); Hemoglobin 10.5 g/dL (11.7-16.6); Lymphocytes # 0.6 10^3/uL (0.8-4.8); Mean Corpuscular HGB Conc 32.6 g/dL (30.0-36.0); Mean Corpuscular Hemoglobin 30.7 pg (28.0-34.0); Mean Corpuscular Volume 94.2 fl (80-94); Mean Platelet Volume 9.6 fL (7.4-10.4); Monocytes # 0.9 10^3/uL (0.2-0.9); Monocytes % 9.7 %; Neutrophils # 7.44 10^3/uL (1.8-7.7); Neutrophils % 81.4 %; Nucleated Red Blood Cells % 0 %; Platelet Count 313 10^3/cmm (130-400); Red Blood Count 3.42 10^6/uL (4.1-5.3); Red Cell Distribution Width 14.1 % (12.1-15.1); White Blood Count 9.1 10^3/uL (4.0-10.0)
[2022-12-31 05:38] LABS: Alanine Aminotransferase 8 U/L (0-41); Albumin Level 3.3 g/dL (3.5-5.2); Alkaline Phosphatase 139 U/L (40-130); Anion Gap 19.3 (5-19); Aspartate Amino Transferase 25 U/L (0-40); Blood Urea Nitrogen 22 mg/dL (6-20); C Reactive Protein 120.9 mg/L (0.0-4.9); Calcium 10.3 mg/dL (8.5-10.5); Carbon Dioxide 27 mmol/L (22-29); Chloride 96 mmol/L (98-107); Globulin 2.4 g/dL (1.3-4.6); Glomerular Filtration Rate 11.8 mL/min (90-130); Glucose 91 mg/dL (65-115); Osmolality Calculated 289 mOsm/kg (285-295); Phosphorus 7.3 mg/dL (2.5-4.5); Potassium 4.3 mmol/L (3.5-5.1); Sodium 138 mmol/L (136-145); Total Bilirubin 0.2 mg/dL (0.15-1.2); Total Protein 5.7 g/dL (6.6-8.7)
[2022-12-31 05:49] LABS: Procalcitonin 0.84 ng/mL (0-0.5)
[2022-12-31] MEDS: amlodipine 10 mg Tablet PO (07:41)
[2022-12-31] MEDS: metoprolol tartrate 25 mg Tablet 50 MG PO ×2 (07:42→21:52)
--- NOTE | 2022-12-31 08:36 | PM.PN ---
Subjective Subjective: Patient is chest pain free. He is leaving AMA Vitals/I&O/Wt Last Vital Signs Temp 98.0 F 12/31/22 07:27 Pulse 101 H 12/31/22 08:04 Resp 16 12/31/22 08:04 BP 204/102 12/31/22 07:27 Pulse Ox 96 12/31/22 08:04 O2 Del Method Nasal Cannula 12/31/22 08:04 O2 Flow Rate 3 12/31/22 08:04 FiO2 30 12/29/22 13:39 12/30/22 12/31/22 12/31/22 22:59 06:59 14:59 Intake Total 274 / 835.739 170 / 1005.739 Balance 274 / -1664.261 170 / -1494.261 Weight last 48 hrs Weight 192 lb 14.472 oz Weight 198 lb Physical Exam Narrative: GENERAL: Patient is alert,confused NECK: No jugular vein distension. [] HEENT: No cyanosis. No icterus. No pallor. [] HEART: Regular S1 and S2. Grade 3/6 systolic murmur LUNGS: Diminished air entry CENTRAL NERVOUS SYSTEM: Grossly nonfocal. [] EXTREMITIES: Lower extremities with 1+ edema bilaterally. Urinary Catheter Management: Hong: Cath Placed During This Visit: no Reason for Continuing Indwelling Catheter: Accurate Measurement of Urinary Output in Critically Ill Patients Data 01/01/23 04:55 01/01/23 04:55 Micro: Microbiology 12/28/22 11:45 Gram Stain - Final Sputum - Endotracheal Tube Aspirate Sputum Culture - Final Haemophilus Influenzae A&P Assessment and plan (1) Cardiac arrest with ventricular fibrillation: (2) STEMI (ST elevation myocardial infarction): (3) Chest pain: (4) End-stage renal disease (ESRD): Plan The patient does not want to stay in the hospital. I tried convincing him to stay however he is leaving AMA. I have informed him about importance of dual antiplatelet therapy. He understands that. Thank you for involving us with care of this patient. Close cardiology follow up as outpatient. Please call with questions. Attestations Medical Necessity Statement*: Care expected to cross 2 midnights. Coding Level of Care Code Acute Code for [facility] Diagnoses Cardiac arrest with ventricular fibrillation I46.9; I49.01 STEMI (ST elevation myocardial infarction) I21.3 Chest pain R07.9 End-stage renal disease (ESRD) N18.6
[2022-12-31] MEDS: sertraline 50 mg Tablet PO (09:39)
[2022-12-31] MEDS: aspirin 81 mg EC Tablet PO (09:39)
[2022-12-31] MEDS: clopidogrel 75 mg Tablet PO (09:40)
[2022-12-31] MEDS: hyDRALAzine 50 mg Tablet PO ×3 (09:41→21:52)
[2022-12-31] MEDS: isosorbide mononitrate ER 60 mg Tablet 30 MG PO (09:41)
--- NOTE | 2022-12-31 10:36 | PC.SOCIAL ---
IMM Update pg 2 of IMM Updated and reviewed w/ patient. Copy provided and Copy dated, initialed and placed in chart.
--- NOTE | 2022-12-31 13:26 | P.PN_ITS ---
Subjective Subjective: Patient was examined this morning he is alert to person, to place, not to time, he was hypertensive earlier this morning, no headache, no blurry vision, no nausea, no vomiting has a one-to-one sitter due to episodes of confusion, wandering, getting up out of bed, according to nursing staff and family members, patient has been hallucinating, seeing things are not there I had extensive discussion discussion with patient's daughter over the phone, discussed patient's cardiac arrest, discussed his respiratory failure, his haemophilus influenza is renal failure did discuss their concerns for his delirium, hallucination, certainly this could be multifactorial from prolonged hospitalization, ICU syndrome, his haemophilus influenza pneumonia, but certainly also concerns for anoxic brain injury after his cardiac arrest episode his CT of his head had no acute findings but will continue to monitor, patient according to daughter was agreeable to go to [facility] for [facility]- term rehab, however in my discussions with him yesterday and this morning declines any rehab, he tells me he wants to eventually go home, but his daughter tells me that she is able to convince him to go to short-term rehab, will discuss with case workers Vitals/I&O/Wt Last Vital Signs Temp 97.6 F 12/31/22 12:00 Pulse 86 12/31/22 12:00 Resp 17 12/31/22 12:00 BP 151/60 12/31/22 12:00 Pulse Ox 95 12/31/22 12:00 O2 Del Method Nasal Cannula 12/31/22 08:04 O2 Flow Rate 3 12/31/22 08:04 FiO2 30 12/29/22 13:39 12/30/22 12/31/22 12/31/22 22:59 06:59 14:59 Intake Total 274 / 835.739 170 / 1005.739 240 / 240 Balance 274 / -1664.261 170 / -1494.261 240 / 240 Weight last 48 hrs Weight 81.647 kg Weight 87.5 kg Weight 89.811 kg Physical Exam Const: COMMON NORMALS: no acute distress ORIENTATION/CONSCIOUSNESS: Yes awake, Yes oriented to person, Yes oriented to place and Yes confused; not oriented to time Resp: COMMON NORMALS: normal respiratory effort, No retractions, No use of accessory muscles and clear to auscultation bilaterally AUSCULTATION: clear to auscultation bilaterally Cardio: COMMON NORMALS: regular rate, regular rhythm, S1 normal heart sound present and S2 normal heart sound present RATE: regular rate RHYTHM: regular rhythm HEART SOUNDS: S1 normal heart sound present and S2 normal heart sound present GI: COMMON NORMALS: Normal to inspection, nondistended, normoactive bowel sounds present and non-tender Extremity: COMMON NORMALS: no pedal edema Neuro: SENSORIUM/ORIENTATION: Yes oriented to person, Yes oriented to place and No oriented to time Psych: COMMON NORMALS: mental status grossly normal Urinary Catheter Management: Hong: Cath Placed During This Visit: no Reason for Continuing Indwelling Catheter: Accurate Measurement of Urinary Output in Critically Ill Patients Data 12/31/22 05:01 12/31/22 05:01 Micro: Microbiology 12/28/22 11:45 Gram Stain - Final Sputum - Endotracheal Tube Aspirate Sputum Culture - Final Haemophilus Influenzae A&P Assessment and plan (1) STEMI (ST elevation myocardial infarction): (2) Chest pain: (3) End-stage renal disease (ESRD): (4) Right bundle branch block (RBBB) on electrocardiogram (ECG): (5) Hypertension: (6) Polycystic kidney disease: (7) GERD (gastroesophageal reflux disease): (8) Cardiac arrest with ventricular fibrillation: (9) Respiratory failure, acute: (10) Pneumonia: (11) Atrial fibrillation with rapid ventricular response: (12) Shock: (13) Pulmonary edema: (14) Bilateral pleural effusion: (15) Haemophilus influenzae pneumonia: (16) Delirium: (17) Post ICU syndrome: (18) Anoxic brain injury: Plan 57 yo M with a past medical history significant for polycystic kidney disease, hypertension, GERD, gout, and ESRD on HD admitted s/p cardiac arrest, STEMI with angioplasty and stenting x 2. Acute hypoxic respiratory failure -Likely multifactorial from cardiac arrest, pulmonary edema, Haemophilus influenzae pneumonia -Plan -Currently extubated, on 3L -Continue pulmonary toilet ?Continue meropenem for pneumonia -Receiving dialysis this morning Haemophilus influenzae pneumonia -Follow sputum cultures -Follow blood cultures -Continue meropenem Altered mental status -Status postcardiac arrest -Follows commands, still has mental fogginess, episodes of delirium -Head CT no acute findings -Potentially multifactorial from haemophilus influenza, post ICU syndrome, potential anoxic brain injury, possible hypertensive encephalopathy -Will monitor. Hypertensive urgency -Will slowly start resuming home blood pressure medications, monitor mentation Shock, resolved -Multifactorial, from cardiac arrest, fluid overload, pneumonia Cardiac arrest with ventricular fibrillation -Status post ROSC -Status post STEMI, stent placement x 2 STEMI -Status post angioplasty with stent placement x 2 -Repeat cardiac echocardiogram shows EF of 55 to 60% -Cardiology on consult -On aspirin, Plavix, statin End-stage renal disease -With history of resistant hyperkalemia -Status post dialysis yesterday Code Status: Full DVT PPx: SCD's. heparin GI PPx: famotidine ABx: None Diet: NPO Discharge plan: Will determine when appropriate. Up out of bed, speech therapy eval, PT OT spoke to patient, spoke to family, meropenem, Attestations Medical Necessity Statement*: Patient requires hospitalization for acute hypoxic respiratory failure, Haemophilus influenzae pneumonia, altered mental status, delirium, concerns for anoxic brain injury, post ICU syndrome, hypertensive urgency Coding Level of Care Code 69446 High Time for a total of 60 minutes, includes reviewing past or interval history, examining/interviewing patient, placing orders, counseling patient/family/other support, updating patient/family/other support, discussing plan of care with staff, communicating with other healthcare providers, documenting encounter and coordinating care Diagnoses STEMI (ST elevation myocardial infarction) I21.3 Chest pain R07.9 End-stage renal disease (ESRD) N18.6 Right bundle branch block (RBBB) on electrocardiogram (ECG) I45.10 Hypertension I10 Polycystic kidney disease Q61.3 GERD (gastroesophageal reflux disease) K21.9 Cardiac arrest with ventricular fibrillation I46.9; I49.01 Respiratory failure, acute J96.00 Pneumonia J18.9 Atrial fibrillation with rapid ventricular response I48.91 Shock R57.9 Pulmonary edema J81.1 Bilateral pleural effusion J90 Haemophilus influenzae pneumonia J14 Delirium R41.0 Post ICU syndrome Anoxic brain injury G93.1
--- NOTE | 2022-12-31 14:12 | PM.PN ---
Subjective Subjective: on 3.5 l o2 Medications: Reviewed: Yes Vitals/I&O/Wt Last Vital Signs Temp 97.6 F 12/31/22 12:00 Pulse 86 12/31/22 12:00 Resp 17 12/31/22 12:00 BP 151/60 12/31/22 12:00 Pulse Ox 95 12/31/22 12:00 O2 Del Method Nasal Cannula 12/31/22 08:04 O2 Flow Rate 3 12/31/22 08:04 FiO2 30 12/29/22 13:39 12/30/22 12/31/22 12/31/22 22:59 06:59 14:59 Intake Total 274 / 835.739 170 / 1005.739 480 / 480 Balance 274 / -1664.261 170 / -1494.261 480 / 480 Weight last 48 hrs Weight 81.647 kg Weight 87.5 kg Weight 89.811 kg Physical Exam Narrative: extubated no distress Urinary Catheter Management: Hong: Cath Placed During This Visit: no Reason for Continuing Indwelling Catheter: Accurate Measurement of Urinary Output in Critically Ill Patients Data 12/31/22 05:01 12/31/22 05:01 Micro: Microbiology 12/28/22 11:45 Gram Stain - Final Sputum - Endotracheal Tube Aspirate Sputum Culture - Final Haemophilus Influenzae A&P Assessment and plan (1) End-stage renal disease (ESRD): 1. End-stage renal disease: On [facility] schedule as outpatient, now presented that is postcardiac arrest and underwent left heart catheter emergently. He is currently extubated s/p HD yesterday still on 3.5 L o2 plan for HD again today 2. Status postcardiac arrest secondary to STEMI, status post left heart cath and stents 3. Hypertension 4. Hyperkalemia , Mild , monitor 5. Anemia Attestations Medical Necessity Statement*: per medicine Coding Level of Care Code Acute Code for g Fwd Diagnoses End-stage renal disease (ESRD) N18.6
--- NOTE | 2022-12-31 17:04 | PC.HD ---
Patient stated that his side was cramping, which is usually indicative of removing too much fluid during dialysis. Per binding cementer french cord, UF goal lowered from 3000 mL to 2000 mL; however, a few minutes later patient reported that he was still cramping and insisted on signing off of dialysis AMA, despite this RN's efforts for him to remain as long as he could. Patient signed electronic AMA and binding cementer french cord and primary RN are aware. Net fluid removal 956 mL.
--- NOTE | 2022-12-31 17:47 | P.DS_ITS ---
Discharge Providers Date of Admission: 12/26/22 12:09 Date of Discharge: December 31, 2022 Attending Provider at Admission: Asad Baez DO Attending Provider at Discharge: Bony Duarte MD Primary Care Provider: Randolph Ortiz MD Diagnoses at Discharge Discharge Diagnosis (1) STEMI (ST elevation myocardial infarction): Status: Acute (2) Chest pain: Status: Acute (3) End-stage renal disease (ESRD): Status: Acute (4) Right bundle branch block (RBBB) on electrocardiogram (ECG): Status: Chronic (5) Hypertension: Status: Chronic (6) Polycystic kidney disease: Status: Chronic (7) GERD (gastroesophageal reflux disease): Status: Chronic (8) Cardiac arrest with ventricular fibrillation: Status: Acute (9) Respiratory failure, acute: Status: Acute (10) Pneumonia: Status: Acute (11) Atrial fibrillation with rapid ventricular response: Status: Acute (12) Shock: Status: Acute (13) Pulmonary edema: Status: Inactive (14) Bilateral pleural effusion: Status: Acute (15) Haemophilus influenzae pneumonia: Status: Acute (16) Delirium: Status: Acute (17) Post ICU syndrome: Status: Acute (18) Anoxic brain injury: Status: Acute Reason for Visit Reason for Visit: chest pain Hospital Course Hospital Course Navneet Savage is a 57 year old male with a past medical history significant for polycystic kidney disease, hypertension, GERD, gout, and ESRD on HD who presents for the 3rd time in the last 24 hours complaining of chest pain, shortness of breath.? Patient had been seen in the ER 2x prior and left AMA after becoming frustrated.? He presented again this morning with complaints of chest pain.? Upon evaluation, he was noted to become diaphoretic and unresponsive.? His EKG did show abnormal rhythm which resulted in V-fib.? He was coded, intubated and received multiple doses of epinephrine, bicarb, and amiodorone.? ER was able to obtain ROSC.? He was started on Levophed, amiodorone and heparin drips.? EKG performed which showed bradycardia and heart block, and additionally ST segment elevation.? STEMI was called.? Cardiology was able to take to the recyclable products sorter for angioplasty and stent placement x 2. Of note, prior to leaving AMA, he was noted to have elevated K+ to 5.7, and was treated with Calcium gluconate.? He did have elevated troponin.? Received Plavix and ASA prior to recyclable products sorter.? He was transferred to ICU and admitted. Patient was admitted to [facility] for acute hypoxic respiratory failure, pneumonia, pulm edema, systolic CHF, STEMI, taken to the Implementation Manager, status post angioplasty stent placement x 2, treated with broad-spectrum antibiotic therapy, dialysis therapy, nephrology was consulted, cardiology was consulted, managed in the ICU, overall patient clinically improved, extubated, moved to general medical floors, managed with broad-spectrum antibiotic therapy, sputum cultures positive for Haemophilus influenzae, managed with meropenem, requiring 3 L, working with physical therapy, which aspirin, Plavix, statin, beta-julee. - Was examined this evening 12/31/2022 -He refused further dialysis when he was receiving dialysis, and it was stopped 1 hour early -He was examined sitting up to the side of the bed, eating a [employer] burger dressed, wearing his hat -He is alert to person, to place, to time he follows all commands, he is sitting up in his bed with his legs crossed -I asked her why he is here in the hospital he tells me that his heart stopped he has a pneumonia -He tells me he wants to leave the hospital -I discussed my concerns about the morbidity and mortality leaving the hospital too soon -I discussed with him that he had a cardiac arrest, he has had 2 stents placed in his heart he has a pneumonia he has kidney failure he has significant debility, deconditioning, protein calorie malnutrition, hypertension -He needs further inpatient monitoring -However he told me he does not care, and he starts wearing at me, telling me that he wants to leave the hospital -I discussed with him the morbidity and mortality associated with leaving the hospital AGAINST MEDICAL ADVICE -Morbidity and mortality including but not limited to cardiac , septic shlomo ck, worsening renal failure, hyperkalemia, worsening pneumonia, risk of falls -He voiced understanding he tells me he does not care, tells me that he was going to leave AGAINST MEDICAL ADVICE -I was very honest and clear with patient that I feel that if he leaves the hospital at this point he is he has a high risk of , and morbidity and mortality, again he tells me he does not care -I went over this in detail, with nursing staff at bedside -I discussed with him that he is going to leave AGAINST MEDICAL ADVICE however I going to send all his medications to pharmacy as he has had 2 stents placed in his heart and he needs to take aspirin and Plavix if he stops taking his medications his stents will close and he will suffer a cardiac event and likely -I advised him to take his antibiotics and worried about his respiratory status with his haemophilus influenza advised him about his risk of , respiratory failure of leaving the hospital advised him to be compliant with dialysis as he has a high risk of respiratory failure, fluid overload, hyperkalemia -I advised him to ambulate with care -Advised him to take his blood pressure medication as prescribed, as I do not know how he is going to respond to some of his home blood pressure medications I am going to hold it, he has a high risk of hypertensive urgency hypertensive emergency high risk of strokes him to the best I can as I cannot monitor him here in the hospital as he wants to leave AGAINST MEDICAL ADVICE I will send all his medications to pharmacy -He signed AMA paperwork in front of me Physical Exam Urinary Catheter Management: Hong: Cath Placed During This Visit: no Reason for Continuing Indwelling Catheter: Accurate Measurement of Urinary Output in Critically Ill Patients Discharge Data Studies Completed and Pending Completed Studies During Hospitalization Category Date Time Status CT head wo con* [id number] Routine Cat Scan 12/30/22 12:59 Completed XR chest 1V portable [id number] Routine Exams 12/27/22 09:00 Completed XR chest 1V portable [id number] Routine Exams 12/28/22 08:09 Completed XR chest 1V portable [id number] Routine Exams 12/29/22 07:00 Completed XR chest 1V portable [id number] Stat Exams 12/26/22 11:03 Completed XR chest 1V portable [id number] Stat Exams 12/26/22 11:56 Completed CV. echo limited [id number] Routine Ultrasound 12/26/22 16:25 Completed Pending at discharge Category Date Time Status [employer] request for service Routine Exams 12/26/22 13:02 Taken Blood Culture Stat Lab 12/28/22 17:50 Results C Reactive Protein AM LABS Lab 01/01/23 04:00 Ordered C Reactive Protein AM LABS Lab 01/02/23 04:00 Ordered C Reactive Protein AM LABS Lab 01/03/23 04:00 Ordered Complete Blood Count w/Auto AM LABS Lab 01/01/23 04:00 Ordered Complete Blood Count w/Auto AM LABS Lab 01/02/23 04:00 Ordered Complete Blood Count w/Auto AM LABS Lab 01/03/23 04:00 Ordered NT Pro B Type Natriuretic Pept QAM Lab 01/01/23 06:00 Ordered NT Pro B Type Natriuretic Pept QAM Lab 01/02/23 06:00 Ordered NT Pro B Type Natriuretic Pept QAM Lab 01/03/23 06:00 Ordered Procalcitonin AM LABS Lab 01/01/23 04:00 Ordered Procalcitonin AM LABS Lab 01/02/23 04:00 Ordered Procalcitonin AM LABS Lab 01/03/23 04:00 Ordered Prothrombin Time INR AM LABS Lab 01/01/23 04:00 Ordered Prothrombin Time INR AM LABS Lab 01/02/23 04:00 Ordered Prothrombin Time INR AM LABS Lab 01/03/23 04:00 Ordered Radiology Impressions Chest X-Ray 12/29/22 07:00 IMPRESSION: Cardiomegaly with mild congestion and bilateral pleural effusions Head CT 12/30/22 12:59 IMPRESSION: No interval mass effect, layering hemorrhage or hydrocephalus is demonstrated. No significant interval intracranial changes are appreciated. Laboratory Results WBC 9.1 10^3/uL (4.0-10.0) 12/31/22 05:01 RBC 3.42 10^6/uL (4.1-5.3) L 12/31/22 05:01 Hgb 10.5 g/dL (11.7-16.6) L 12/31/22 05:01 Hct 32.2 % (42.0-52.0) L 12/31/22 05:01 MCV 94.2 fl (80-94) H 12/31/22 05:01 MCH 30.7 pg (28.0-34.0) 12/31/22 05:01 MCHC 32.6 g/dL (30.0-36.0) 12/31/22 05:01 RDW 14.1 % (12.1-15.1) 12/31/22 05:01 Plt Count 313 10^3/cmm (130-400) 12/31/22 05:01 MPV 9.6 fL (7.4-10.4) 12/31/22 05:01 Neut % (Auto) 81.4 % 12/31/22 05:01 Lymph % (Auto) 7.0 % 12/31/22 05:01 Allen % (Auto) 9.7 % 12/31/22 05:01 Eos % (Auto) 0.8 % 12/31/22 05:01 Baso % (Auto) 0.3 % 12/31/22 05:01 Neut # (Auto) 7.44 10^3/uL (1.8-7.7) 12/31/22 05:01 Lymph # (Auto) 0.6 10^3/uL (0.8-4.8) L 12/31/22 05:01 Allen # (Auto) 0.9 10^3/uL (0.2-0.9) 12/31/22 05:01 Eos # (Auto) 0.1 10^3/uL (0.0-0.8) 12/31/22 05:01 Baso # (Auto) 0.0 10^3/uL (0.0-0.1) 12/31/22 05:01 Nucleated RBC % (auto) 0 % 12/31/22 05:01 Nucleated RBCs # 0.0 /100WBC 12/31/22 05:01 PT 13.80 SECONDS (12.1-14.9) 12/27/22 03:59 INR 1.03 (0.8-1.2) 12/27/22 03:59 APTT 36.5 SECONDS (23.9-36.7) 12/27/22 03:59 Specimen Type Arterial 12/29/22 05:10 Sample Site Brachial, right 12/29/22 05:10 ABG pH 7.51 (7.35-7.45) H 12/29/22 05:10 ABG pCO2 37.2 mmHg (35-45) 12/29/22 05:10 ABG pO2 66.9 mmHg (80.0-100.0) L 12/29/22 05:10 ABG HCO3 29.3 mmol/L (22-26) H 12/29/22 05:10 ABG O2 Saturation > 100.0 12/26/22 16:38 ABG Base Excess 5.8 mmol/L (-2.0-2.0) H 12/29/22 05:10 Denis Test N/a 12/29/22 05:10 A-a O2 Gradient 53.3 mmHg (5-10) H 12/26/22 16:38 Hematocrit 24.0 % (42-52) L 12/29/22 05:10 Hgb O2 Saturation 98.9 % (95-100) 12/26/22 16:38 Carboxyhemoglobin 0.9 %THgb (0.4-20.1) 12/26/22 16:38 Methemoglobin 0.8 % (0.4-1.5) 12/26/22 16:38 Total Hemoglobin 11.2 g/dL (14-18) L 12/26/22 16:38 Sodium 132.0 mmol/L (131-143) 12/26/22 16:38 Potassium 5.5 mmol/L (3.5-5.0) H 12/26/22 16:38 Glucose 125.0 mg/dL (70-115) H 12/26/22 16:38 Ionized Calcium 1.3 mmol/L (1.1-1.4) 12/26/22 16:38 O2 Delivery Device Vent 12/29/22 05:10 O2 Liters/Min 15.0 % 12/26/22 11:28 FiO2 40.0 % 12/29/22 05:10 Tidal Volume 0.50 12/29/22 05:10 PEEP 5.0 cmH20 12/29/22 05:10 Handle Bender ID Shreyas 12/29/22 05:10 Sodium 138 mmol/L (136-145) 12/31/22 05:01 Potassium 4.3 mmol/L (3.5-5.1) 12/31/22 05:01 Chloride 96 mmol/L (98-107) L 12/31/22 05:01 Carbon Dioxide 27 mmol/L (22-29) 12/31/22 05:01 Anion Gap 19.3 (5-19) H 12/31/22 05:01 BUN 22 mg/dL (6-20) H 12/31/22 05:01 Creatinine 5.1 mg/dL (0.7-1.2) H 12/31/22 05:01 GFR Calculation 11.8 mL/min (90-130) L 12/31/22 05:01 Glucose 91 mg/dL (65-115) 12/31/22 05:01 POC Glucose 85 mg/dL (70-110) 12/30/22 07:25 Calculated Osmolality 289 mOsm/kg (285-295) 12/31/22 05:01 Lactate 0.9 mmol/L (0.5-2.2) 12/30/22 04:39 Uric Acid 4.8 mg/dL (3.4-7.0) 12/26/22 18:04 Calcium 10.3 mg/dL (8.5-10.5) 12/31/22 05:01 Phosphorus 7.3 mg/dL (2.5-4.5) H 12/31/22 05:01 Magnesium 2.0 mg/dL (1.7-2.3) 12/31/22 05:01 Total Bilirubin 0.2 mg/dL (0.15-1.2) 12/31/22 05:01 AST 25 U/L (0-40) 12/31/22 05:01 ALT 8 U/L (0-41) 12/31/22 05:01 Alkaline Phosphatase 139 U/L (40-130) H 12/31/22 05:01 Ammonia 20 umol/L (16-60) 12/26/22 18:04 Troponin T Baseline 272 ng/L (0-15) H* 12/26/22 11:20 Troponin T 120 Minute 408.1 ng/L (0-15) H 12/26/22 19:55 Delta Troponin T 136.1 ABS# (0-10) H* 12/26/22 19:55 Troponin T Hi Sens 6Hr 342.7 ng/L (0-15) H 12/26/22 18:04 Troponin T Hi Sens 6Hr Delta 70.7 ng/L (0-12) H* 12/26/22 18:04 C-Reactive Protein 120.9 mg/L (0.0-4.9) H 12/31/22 05:01 NT-Pro-B Natriuret Pep 21491 pg/mL (0-125) H 12/31/22 05:01 Total Protein 5.7 g/dL (6.6-8.7) L 12/31/22 05:01 Albumin 3.3 g/dL (3.5-5.2) L 12/31/22 05:01 Globulin 2.4 g/dL (1.3-4.6) 12/31/22 05:01 Triglycerides 60 mg/dL (0-150) 12/26/22 18:04 Cholesterol 135 mg/dL (0-200) 12/26/22 18:04 LDL Cholesterol, Calc 67 mg/dL (50-129) 12/26/22 18:04 HDL Cholesterol 56 mg/dL (60-100) L 12/26/22 18:04 LDL/HDL Ratio 1.20 RATIO (0.00-3.22) 12/26/22 18:04 Cholesterol/HDL Ratio 2.41 mg/dL (1.0-5.00) 12/26/22 18:04 25-OH Vitamin D Total 17 ng/mL (30-100) L 12/26/22 18:04 Procalcitonin 0.84 ng/mL (0-0.5) H 12/31/22 05:01 TSH 3.92 uIU/mL (0.27-4.20) 12/27/22 03:59 Free T4 0.86 ng/dL (0.82-1.77) 12/26/22 18:04 Free T3 2.5 PG/ML (2.0-4.4) 12/26/22 18:04 PTH Intact 1038.0 pg/mL (15-65) H 12/26/22 12:00 Calcium (PTH Intact) 10.3 mg/dL (8.5-10.5) 12/26/22 12:00 Urine Opiates Screen Negative ng/mL (Negative) 12/26/22 16:50 Ur Barbiturates Screen Negative ng/mL (Negative) 12/26/22 16:50 Ur Phencyclidine Scrn Negative ng/mL (Negative) 12/26/22 16:50 Ur Amphetamines Screen Negative ng/mL (Negative) 12/26/22 16:50 U Benzodiazepines Scrn Negative ng/mL (Negative) 12/26/22 16:50 Urine Cocaine Screen Negative ng/mL (Negative) 12/26/22 16:50 U Marijuana (THC) Screen Negative ng/mL (Negative) 12/26/22 16:50 Hep Bs Antigen Non-reactive (Nonreactive) 12/28/22 16:40 Hep Bs Antibody 49.4 (11.5-1000) 12/28/22 16:40 Hep B Core Total Ab Non-reactive (Nonreactive) 12/28/22 16:40 Vitals Last Vital Signs Temp 98.1 F 12/31/22 17:02 Pulse 90 12/31/22 17:02 Resp 16 12/31/22 17:02 BP 184/93 12/31/22 17:02 Pulse Ox 97 12/31/22 15:30 O2 Del Method Nasal Cannula 12/31/22 08:04 O2 Flow Rate 3 12/31/22 08:04 FiO2 30 12/29/22 13:39 Discharge Plan Discharge Patient Disposition: Home Health Service Condition: Stable Prescriptions: New nitroglycerin 0.4 mg Tablet, Sublingual 0.4 mg sublingual Q5M PRN (Reason: Chest Pain) 30 Days Qty: 30 0RF metoprolol tartrate 50 mg tablet 50 mg PO BID@0900,2100 30 Days Qty: 60 0RF clopidogrel 75 mg Tablet 75 mg PO DAILY 30 Days Qty: 30 0RF doxycycline hyclate 100 mg tablet 100 mg PO BID 7 Days Qty: 14 0RF Continued cholecalciferol (vitamin D3) 125 mcg (5,000 unit) capsule 125 mcg PO DAILY allopurinol 100 mg Tablet 100 mg PO DAILY cinacalcet 30 mg tablet 30 mg PO DAILY sucralfate 1 gram tablet 1 g PO Q6H PRN (Reason: unknown) atorvastatin 40 mg Tablet 40 mg PO BEDTIME 30 Days Qty: 30 0RF aspirin 81 mg Tablet,Delayed Release (Dr/Ec) 81 mg PO DAILY 30 Days Qty: 30 0RF clonidine HCl 0.2 mg tablet 0.1 mg PO BID 30 Days Qty: 60 4RF amlodipine 10 mg Tablet 10 mg PO DAILY 30 Days Qty: 30 0RF levothyroxine 75 mcg tablet 75 mcg PO DAILY 30 Days Qty: 60 0RF Auryxia 210 mg iron tablet 2 tab PO TID RenaPlex-D 800 mcg-12.5 mg -2,000 unit tablet 1 tab PO DAILY trazodone 50 mg Tablet 25 - 50 mg PO BEDTIME PRN (Reason: Sleep) lactulose 10 gram/15 mL solution See Rx Instructions .ROUTE .COMPLEX Rx Instructions: TAKE 15ML BY MOUTH IN THE MORNING ON NON-DIALYSIS DAYS (WEDNESDAY,WEDNESDAY,WEDNESDAY & WEDNESDAY) Lokelma 5 gram powder in packet 5 g PO DAILY Qty: 11 0RF sertraline 50 mg tablet 50 mg PO DAILY 30 Days Qty: 30 0RF Changed isosorbide mononitrate 60 mg tablet extended release 24 hr 30 mg PO DAILY 30 Days Qty: 15 0RF hydralazine 50 mg tablet 50 mg PO TID 30 Days Qty: 90 0RF Held minoxidil 2.5 mg tablet 5 mg PO BID Qty: 60 0RF Hold Instructions: Resume on 01/04/23. hold until you see primary care lisinopril 40 mg tablet 40 mg PO DAILY Qty: 90 0RF Hold Instructions: Resume on 01/04/23. hold until you see primary care Discontinued simvastatin 40 mg tablet 40 mg PO DAILY carvedilol 25 mg tablet 12.5 mg PO BID 30 Days Qty: 30 4RF Other Ambulatory Orders: DME: Mahendra (Order) Location: None Selected Ordered By: Bony Duarte Referrals: State In Home service Referral [Other] (You can call this number to see if you qualify for In home services. You will need your medicaid number when you call. ) [facility] ([facility]) [Outside] Haylee Segura FNP [Nurse Practitioner] - 1-3 days Randolph Ortiz MD [Primary Care Provider] - Discharge Diet: Cardiac Discharge Activity: Resume usual activity Discharge Attestations Time Spent in Discharge Care*: greater than 30 min Quality Metrics Clinical Quality Measures [ Acute Myocardial Infaction { Clinical Trial Participant: No; Contraindication to aspirin: None; Aspirin prescribed; Contraindication to statin: None; Statin prescribed; Contraindication to PCI: None; PCI performed;}] Coding Level of Care Code 80403 Total time (in minutes) for Discharge: 45 Diagnoses STEMI (ST elevation myocardial infarction) I21.3 Chest pain R07.9 End-stage renal disease (ESRD) N18.6 Right bundle branch block (RBBB) on electrocardiogram (ECG) I45.10 Hypertension I10 Polycystic kidney disease Q61.3 GERD (gastroesophageal reflux disease) K21.9 Cardiac arrest with ventricular fibrillation I46.9; I49.01 Respiratory failure, acute J96.00 Pneumonia J18.9 Atrial fibrillation with rapid ventricular response I48.91 Shock R57.9 Pulmonary edema J81.1 Bilateral pleural effusion J90 Haemophilus influenzae pneumonia J14 Delirium R41.0 Post ICU syndrome Anoxic brain injury G93.1
[2022-12-31] MEDS: levothyroxine 75 mcg Tablet PO (19:39)
[2022-12-31] MEDS: dilTIAZem 5 mg/mL SDV 5 mL 10 MG IVP (20:15)
--- NOTE | 2022-12-31 20:23 | ECG_ITS ---
[facility] Test Date: 2022-12-31 Pat Name: Navneet Savage Department: Room: 263 Gender: Male Angiographer: : 1965 Requested By: Deborah Singh Order Number: [id number] Nate MD: Saurabh Fitzpatrick M.D. Measurements Intervals [place] Rate: 125 P: 0 VA: 0 QRS: -27 QRSD: 105 T: 138 QT: 306 QTc: 443 Interpretive Statements ATRIAL FIBRILLATION WITH RAPID VENTRICULAR RESPONSE BORDERLINE LEFT AXIS DEVIATION [QRS AXIS < -20] MODERATE VOLTAGE CRITERIA FOR LVH, CONSIDER NORMAL VARIANT [MEETS CRITERIA IN ONE OF: R(aVL), S(V1), R(V5), R(V5/V6)+S(V1)] ST DEVIATION AND MODERATE T-WAVE ABNORMALITY, CONSIDER LATERAL ISCHEMIA [-0.1+ mV T-WAVE IN I/aVL/V5/V6] Compared to ECG 12/26/2022 20:29:26 T-wave abnormality now present Possible ischemia now present Sinus bradycardia no longer present Prolonged QT interval no longer present Electronically Signed On 01-01-2023 9:25:47 CDT by Saurabh Fitzpatrick M.D. [id number]
--- NOTE | 2022-12-31 21:06 | PC.NURSE ---
report called to ICU at this time.
--- NOTE | 2022-12-31 21:43 | W.PM.EVENTAC ---
Event Notes Attestations Time Spent in Patient Care: Patient decided to stay Patient went into A-fib RVR did not respond very well to Cardizem 10 mg IV push which dropped his blood pressure Transferred to ICU start amiodarone and heparin drip Mag 2, potassium 4.3 Requiring 5 L of oxygen May require BiPAP if he gets worse
[2022-12-31] MEDS: dilTIAZem 30 mg Tablet PO (21:52)
[2022-12-31] MEDS: atorvastatin 40 mg Tablet PO (21:52)
[2022-12-31] MEDS: heparin 5,000 unit/mL INJ 1 mL IV (22:06)
[2022-12-31] MEDS: heparin drip 25,000 UNIT/500 ML PREMIX 20.36 UNIT IV (22:07)
--- NOTE | 2022-12-31 22:58 | PC.NURSE ---
Family notified of pts transfer to ICU all questions were answered. Family verblized understanding.
[2022-12-31] MEDS: alum-mag-hydroxide-sime 30 mL UDC PO (23:12)
[2023-01-01] VITALS (84 sets, daily range): BP systolic 110–195; BP diastolic 55–123; PULSE 56–108; RESP 15–37; TEMP 36.5–37.2; O2SAT 87–100
[2023-01-01] MEDS: ipratropium-albuterol 3 mL Neb INHALATION ×4 (01:58→20:34)
[2023-01-01] MEDS: dilTIAZem 30 mg Tablet PO ×2 (02:37→07:51)
[2023-01-01 05:28] LABS: Basophils % 0.4 %; Eosinophils # 0.1 10^3/uL (0.0-0.8); Eosinophils % 1.2 %; Hematocrit 32.7 % (42.0-52.0); Hemoglobin 10.8 g/dL (11.7-16.6); Lymphocytes # 0.9 10^3/uL (0.8-4.8); Lymphocytes % 11.1 %; Mean Corpuscular Hemoglobin 30.4 pg (28.0-34.0); Mean Corpuscular Volume 92.1 fl (80-94); Mean Platelet Volume 9.6 fL (7.4-10.4); Monocytes % 11.8 %; Neutrophils # 6.03 10^3/uL (1.8-7.7); Neutrophils % 74.1 %; Nucleated Red Blood Cells % 0 %; Platelet Count 338 10^3/cmm (130-400); Red Blood Count 3.55 10^6/uL (4.1-5.3); Red Cell Distribution Width 13.9 % (12.1-15.1); White Blood Count 8.1 10^3/uL (4.0-10.0)
[2023-01-01 05:49] LABS: INR 0.99 (0.8-1.2)
[2023-01-01 05:57] LABS: C Reactive Protein 68.2 mg/L (0.0-4.9)
[2023-01-01 06:00] LABS: Partial Thromboplastin Time 102.3 SECONDS (23.9-36.7)
[2023-01-01 06:04] LABS: Procalcitonin 0.78 ng/mL (0-0.5)
[2023-01-01 06:16] LABS: Anion Gap 21.3 (5-19); Blood Urea Nitrogen 23 mg/dL (6-20); Calcium 10.4 mg/dL (8.5-10.5); Carbon Dioxide 25 mmol/L (22-29); Chloride 93 mmol/L (98-107); Glomerular Filtration Rate 11.8 mL/min (90-130); Glucose 97 mg/dL (65-115); Osmolality Calculated 284 mOsm/kg (285-295); Potassium 4.3 mmol/L (3.5-5.1); Sodium 135 mmol/L (136-145)
[2023-01-01 06:45] LABS: NT Pro B Type Natriuretic Pept 62701 pg/mL (0-125)
[2023-01-01] MEDS: meropenem 1,000 MG in sodium chloride 0.9% (plus) 50 ML 100 MG IV (07:51)
[2023-01-01] MEDS: amlodipine 10 mg Tablet PO (08:27)
[2023-01-01] MEDS: sertraline 50 mg Tablet PO (08:27)
[2023-01-01] MEDS: isosorbide mononitrate ER 60 mg Tablet 30 MG PO (08:27)
[2023-01-01] MEDS: aspirin 81 mg EC Tablet PO (08:27)
[2023-01-01] MEDS: hyDRALAzine 50 mg Tablet PO ×3 (08:27→20:27)
[2023-01-01] MEDS: metoprolol tartrate 25 mg Tablet 50 MG PO ×2 (08:28→20:27)
[2023-01-01] MEDS: clopidogrel 75 mg Tablet PO (08:28)
--- NOTE | 2023-01-01 09:13 | PM.PN ---
Subjective Subjective: Patient initially wanted to go AGAINST MEDICAL ADVICE but then decided to stay yesterday. He went into A-fib with RVR. He was put on amiodarone which has now been switched to p.o. amnio. He has converted back to normal sinus rhythm. He denies chest pain. Feels congestion. Vitals/I&O/Wt Last Vital Signs Temp 99 F 01/01/23 08:00 Pulse 86 01/01/23 08:00 Resp 20 H 01/01/23 08:00 BP 173/102 01/01/23 08:00 Pulse Ox 100 01/01/23 08:00 O2 Del Method Nasal Cannula 01/01/23 08:00 O2 Flow Rate 3 01/01/23 08:00 FiO2 30 12/29/22 13:39 12/31/22 01/01/23 01/01/23 22:59 06:59 14:59 Intake Total 453 / 933 620.340 / 1553.340 89.176 / 89.176 Output Total 1256 / 1256 Balance -803 / -323 620.340 / 297.340 89.176 / 89.176 Weight last 48 hrs Weight 180 lb 11.2 oz Weight 180 lb 11.2 oz Weight 160 lb 4.417 oz Weight 180 lb Weight 192 lb 14.472 oz Physical Exam Narrative: GENERAL: Patient is alert,confused NECK: No jugular vein distension. [] HEENT: No cyanosis. No icterus. No pallor. [] HEART: Regular S1 and S2. Grade 3/6 systolic murmur LUNGS: Diminished air entry CENTRAL NERVOUS SYSTEM: Grossly nonfocal. [] EXTREMITIES: Lower extremities with 1+ edema bilaterally. Urinary Catheter Management: Hong: Cath Placed During This Visit: no Reason for Continuing Indwelling Catheter: Accurate Measurement of Urinary Output in Critically Ill Patients Data 01/01/23 04:55 01/01/23 04:55 A&P Assessment and plan (1) Cardiac arrest with ventricular fibrillation: (2) STEMI (ST elevation myocardial infarction): (3) Chest pain: (4) End-stage renal disease (ESRD): Plan Patient's heart rate has converted back to normal sinus rhythm. Start on eliquis. Continue plavix. I emphasized the need for medication compliance but he has history of non-compliance and left AMA before. I mentioned risks of not taking antiplatelet/anticoagulation Continue PO amiodarone Thank you for involving us with care of this patient. We will continue to follow. Please call with questions. Attestations Medical Necessity Statement*: Care expected to cross 2 midnights. Coding Level of Care Code Acute Code for g Fwd Diagnoses Cardiac arrest with ventricular fibrillation I46.9; I49.01 STEMI (ST elevation myocardial infarction) I21.3 Chest pain R07.9 End-stage renal disease (ESRD) N18.6
[2023-01-01] MEDS: apixaban 5 mg Tablet PO ×2 (09:29→20:27)
[2023-01-01] MEDS: amiodarone 200 mg Tablet 400 MG PO ×2 (09:29→17:20)
[2023-01-01 12:54] LABS: Partial Thromboplastin Time 46.8 SECONDS (23.9-36.7)
[2023-01-01] MEDS: heparin 5,000 unit/mL INJ 1 mL 5000 UNIT SUBCUT (13:43)
--- NOTE | 2023-01-01 14:01 | XR_ITS ---
WS: [id number] XR chest 1V portable [id number] REASON FOR EXAM: CHF FINDINGS: Compared to 12/29/2022, the endotracheal tube, nasogastric tube, and the right internal jugular central venous line have been removed. Mild elevation of the left hemidiaphragm. Minimal interstitial and groundglass opacities are seen in both lower lobes, most notably of the left . No other interval change or new finding. IMPRESSION: Multiple device removal. Minimal residual lung abnormality as above.
--- NOTE | 2023-01-01 14:05 | PM.PN ---
Subjective Subjective: Pt cut short his HD treatment yesterday transferred to IC last night duw to rapid fib Medications: Reviewed: Yes Vitals/I&O/Wt Last Vital Signs Temp 99 F 01/01/23 08:00 Pulse 65 01/01/23 13:45 Resp 28 H 01/01/23 13:45 BP 141/85 01/01/23 12:30 Pulse Ox 97 01/01/23 13:45 O2 Del Method Room Air 01/01/23 13:45 O2 Flow Rate 3 01/01/23 08:00 FiO2 30 12/29/22 13:39 12/31/22 01/01/23 01/01/23 22:59 06:59 14:59 Intake Total 453 / 933 620.340 / 1553.340 489.176 / 489.176 Output Total 1256 / 1256 Balance -803 / -323 620.340 / 297.340 489.176 / 489.176 Weight last 48 hrs Weight 81.964 kg Weight 81.964 kg Weight 72.7 kg Weight 81.647 kg Physical Exam Narrative: no distress Urinary Catheter Management: Hong: Cath Placed During This Visit: no Reason for Continuing Indwelling Catheter: Accurate Measurement of Urinary Output in Critically Ill Patients Data 01/01/23 04:55 01/01/23 04:55 A&P Assessment and plan (1) End stage renal disease on dialysis: Plan 1) End-stage renal disease (ESRD): 1.? End-stage renal disease: On [facility] schedule as outpatient, now presented that is postcardiac arrest and underwent left heart catheter emergently.? He is currently extubated s/p HD yesterday but he cut short his rx currently on room air plan for HD again tomorrow 2.? Status postcardiac arrest secondary to STEMI, status post left heart cath and stents 3.? Hypertension 4. Hyperkalemia , Mild , monitor 5. Anemia 6. A fib with RVR Attestations Medical Necessity Statement*: per medicine Coding Level of Care Code Acute Code for Chg Fwd Diagnoses End stage renal disease on dialysis N18.6; Z99.2
--- NOTE | 2023-01-01 16:49 | PM.PN ---
Subjective Subjective: - Patient was seen this morning -He decided against leaving AGAINST MEDICAL ADVICE last night -His daughter talk to him and staying into the hospital -Overnight he went into A-fib with RVR, transferred down to the ICU for amiodarone drip, and heparin drip, -Patient converted to normal sinus rhythm overnight -Currently on amiodarone drip going at 0.5 currently on heparin drip -He is alert oriented x2, following all commands, denies shortness of breath, denies any chest pain -I had an extensive discussion about him staying in the hospital for appropriate medical treatment, and evaluation, I advised him today the plan is to get him on a heparin drip transition to Eliquis get him off the amiodarone drip and transition him to p.o. amiodarone to work with physical therapy he will likely dialysis today, also continue meropenem for his haemophilus influenza pneumonia we will transition him to p.o. antibiotics tomorrow, -I advised him that he is high risk of morbidity and mortality against leaving the hospital AGAINST MEDICAL ADVICE -He voiced understanding, all questions answered, agreed to proceed with plan Vitals/I&O/Wt Last Vital Signs Temp 99 F 01/01/23 08:00 Pulse 71 01/01/23 16:47 Resp 25 H 01/01/23 16:30 BP 131/78 01/01/23 16:30 Pulse Ox 89 L 01/01/23 16:30 O2 Del Method Room Air 01/01/23 16:30 O2 Flow Rate 3 01/01/23 08:00 FiO2 30 12/29/22 13:39 01/01/23 01/01/23 01/01/23 06:59 14:59 22:59 Intake Total 620.340 / 1553.340 489.176 / 489.176 Balance 620.340 / 297.340 489.176 / 489.176 Weight last 48 hrs Weight 81.964 kg Weight 81.964 kg Weight 72.7 kg Weight 81.647 kg Physical Exam Const: COMMON NORMALS: no acute distress ORIENTATION/CONSCIOUSNESS: Yes awake, Yes oriented to person and Yes oriented to place; not oriented to time HENMT: COMMON NORMALS: normocephalic HEAD & SCALP: normocephalic Resp: COMMON NORMALS: normal respiratory effort, No retractions, No use of accessory muscles and clear to auscultation bilaterally AUSCULTATION: clear to auscultation bilaterally Cardio: COMMON NORMALS: regular rate, regular rhythm, S1 normal heart sound present and S2 normal heart sound present RATE: regular rate RHYTHM: regular rhythm HEART SOUNDS: S1 normal heart sound present and S2 normal heart sound present GI: COMMON NORMALS: Normal to inspection, nondistended, normoactive bowel sounds present and non-tender Extremity: COMMON NORMALS: no pedal edema Neuro: SENSORIUM/ORIENTATION: Yes oriented to person, Yes oriented to place and No oriented to time Psych: COMMON NORMALS: mental status grossly normal Urinary Catheter Management: Hong: Cath Placed During This Visit: no Reason for Continuing Indwelling Catheter: Accurate Measurement of Urinary Output in Critically Ill Patients Data 01/01/23 04:55 01/01/23 04:55 A&P Assessment and plan (1) STEMI (ST elevation myocardial infarction): (2) Chest pain: (3) End-stage renal disease (ESRD): (4) Right bundle branch block (RBBB) on electrocardiogram (ECG): (5) Hypertension: (6) Polycystic kidney disease: (7) GERD (gastroesophageal reflux disease): (8) Cardiac arrest with ventricular fibrillation: (9) Respiratory failure, acute: (10) Pneumonia: (11) Atrial fibrillation with rapid ventricular response: (12) Shock: (13) Pulmonary edema: (14) Bilateral pleural effusion: (15) Haemophilus influenzae pneumonia: (16) Delirium: (17) Post ICU syndrome: (18) Anoxic brain injury: Plan 57 yo M with a past medical history significant for polycystic kidney disease, hypertension, GERD, gout, and ESRD on HD admitted s/p cardiac arrest, STEMI with angioplasty and stenting x 2. Acute hypoxic respiratory failure -Likely multifactorial from cardiac arrest, pulmonary edema, Haemophilus influenzae pneumonia -Plan -Currently extubated, on 3L -Continue pulmonary toilet ? De-escalate to doxycycline Haemophilus influenzae pneumonia -Receiving dialysis this morning A-fib with RVR -Transition off amiodarone drip to p.o. amiodarone 400 twice daily -Transition off heparin drip to Eliquis 5 mg twice a day -Monitor in ICU for 24 hours Haemophilus influenzae pneumonia -Follow sputum cultures -Follow blood cultures -Continue doxycycline Altered mental status -Status postcardiac arrest -Follows commands, still has mental fogginess, episodes of delirium -Head CT no acute findings -Potentially multifactorial from haemophilus influenza, post ICU syndrome, potential anoxic brain injury, possible hypertensive encephalopathy -Will monitor. Hypertensive urgency -Will slowly start resuming home blood pressure medications, monitor mentation Shock, resolved -Multifactorial, from cardiac arrest, fluid overload, pneumonia Cardiac arrest with ventricular fibrillation -Status post ROSC -Status post STEMI, stent placement x 2 STEMI -Status post angioplasty with stent placement x 2 -Repeat cardiac echocardiogram shows EF of 55 to 60% -Cardiology on consult -On Plavix, statin End-stage renal disease -With history of resistant hyperkalemia -Potential dialysis for today Code Status: Full DVT PPx: SCD's. heparin GI PPx: famotidine ABx: None Diet: NPO Discharge plan: Will determine when appropriate. Up out of bed, speech therapy oanh, PT OT spoke to patient, spoke to family, -Currently on amiodarone drip going at 0.5 currently on heparin drip -He is alert oriented x2, following all commands, denies shortness of breath, denies any chest pain -I had an extensive discussion about him staying in the hospital for appropriate medical treatment, and evaluation, I advised him today the plan is to get him on a heparin drip transition to Eliquis get him off the amiodarone drip and transition him to p.o. amiodarone to work with physical therapy he will likely dialysis today, also continue meropenem for his haemophilus influenza pneumonia we will transition him to p.o. antibiotics tomorrow, -I advised him that he is high risk of morbidity and mortality against leaving the hospital AGAINST MEDICAL ADVICE -He voiced understanding, all questions answered, agreed to proceed with plan Attestations Medical Necessity Statement*: Patient requires hospitalization for A-fib with RVR, fluid overload Diagnoses STEMI (ST elevation myocardial infarction) I21.3 Chest pain R07.9 End-stage renal disease (ESRD) N18.6 Right bundle branch block (RBBB) on electrocardiogram (ECG) I45.10 Hypertension I10 Polycystic kidney disease Q61.3 GERD (gastroesophageal reflux disease) K21.9 Cardiac arrest with ventricular fibrillation I46.9; I49.01 Respiratory failure, acute J96.00 Pneumonia J18.9 Atrial fibrillation with rapid ventricular response I48.91 Shock R57.9 Pulmonary edema J81.1 Bilateral pleural effusion J90 Haemophilus influenzae pneumonia J14 Delirium R41.0 Post ICU syndrome Anoxic brain injury G93.1
[2023-01-01] MEDS: doxycycline 100 mg Tablet PO (17:20)
[2023-01-01] MEDS: levothyroxine 75 mcg Tablet PO (19:31)
[2023-01-01] MEDS: atorvastatin 40 mg Tablet PO (20:27)
[2023-01-02] VITALS (84 sets, daily range): BP systolic 77–178; BP diastolic 46–108; PULSE 59–126; RESP 17–42; TEMP 36.5–37.1; O2SAT 85–99
[2023-01-02] MEDS: ipratropium-albuterol 3 mL Neb INHALATION ×4 (02:21→19:51)
[2023-01-02 04:31] LABS: Basophils # 0.1 10^3/uL (0.0-0.1); Basophils % 0.7 %; Eosinophils # 0.2 10^3/uL (0.0-0.8); Hematocrit 32.5 % (42.0-52.0); Hemoglobin 10.4 g/dL (11.7-16.6); Lymphocytes # 0.8 10^3/uL (0.8-4.8); Lymphocytes % 11.3 %; Mean Corpuscular Hemoglobin 29.7 pg (28.0-34.0); Mean Corpuscular Volume 92.9 fl (80-94); Mean Platelet Volume 9.9 fL (7.4-10.4); Monocytes % 12.8 %; Neutrophils # 5.28 10^3/uL (1.8-7.7); Neutrophils % 71.3 %; Nucleated Red Blood Cells % 0 %; Platelet Count 344 10^3/cmm (130-400); Red Cell Distribution Width 14.1 % (12.1-15.1); White Blood Count 7.4 10^3/uL (4.0-10.0)
[2023-01-02 04:46] LABS: INR 1.06 (0.8-1.2)
[2023-01-02 04:52] LABS: C Reactive Protein 40.3 mg/L (0.0-4.9)
[2023-01-02 04:56] LABS: Procalcitonin 0.81 ng/mL (0-0.5)
[2023-01-02 05:08] LABS: Anion Gap 20.6 (5-19); Blood Urea Nitrogen 39 mg/dL (6-20); Calcium 10.3 mg/dL (8.5-10.5); Carbon Dioxide 25 mmol/L (22-29); Chloride 92 mmol/L (98-107); Glomerular Filtration Rate 9.2 mL/min (90-130); Glucose 95 mg/dL (65-115); Osmolality Calculated 285 mOsm/kg (285-295); Potassium 4.6 mmol/L (3.5-5.1); Sodium 133 mmol/L (136-145)
[2023-01-02] MEDS: apixaban 5 mg Tablet PO ×2 (08:04→20:02)
[2023-01-02] MEDS: isosorbide mononitrate ER 60 mg Tablet 30 MG PO (08:04)
[2023-01-02] MEDS: amlodipine 10 mg Tablet PO (08:04)
[2023-01-02] MEDS: amiodarone 200 mg Tablet 400 MG PO ×2 (08:04→17:31)
[2023-01-02] MEDS: clopidogrel 75 mg Tablet PO (08:04)
[2023-01-02] MEDS: doxycycline 100 mg Tablet PO ×2 (08:04→17:32)
[2023-01-02] MEDS: hyDRALAzine 50 mg Tablet PO (08:04)
[2023-01-02] MEDS: sertraline 50 mg Tablet PO (08:04)
[2023-01-02] MEDS: metoprolol tartrate 25 mg Tablet 50 MG PO (08:04)
--- NOTE | 2023-01-02 08:11 | PM.PN ---
Subjective Subjective: Navneet is a noncompliant patient who signs out AMA frequently. He was admitted a week ago after having signed out AMA multiple times just prior to that. Came back to the emergency room with chest pain. He had ventricular fibrillation arrest in the emergency room. The inferior leads were abnormal with ST elevation. He underwent cardiac catheterization with atherectomy and stenting of the right coronary artery. His ejection fraction is 55%. 2 days ago he was preparing to leave AGAINST MEDICAL ADVICE again when he went into atrial fibrillation. He was transferred to the ICU, placed on amiodarone and heparin and now is in sinus rhythm. He has been changed over to amiodarone by mouth and anticoagulants by mouth. He is rather unpleasant as usual this morning stating that he is going home He has end-stage renal disease on dialysis. His dialysis days are Wednesday and Wednesday. He did not get dialyzed yesterday. The plan is dialysis today but he does not want to do that. He has anemia, chronic ascites with frequent paracenteses, stroke, hypertension, polycystic kidney disease, tobacco abuse and COPD. Vitals/I&O/Wt Last Vital Signs Temp 98 F 01/02/23 05:39 Pulse 78 01/02/23 05:39 Resp 20 H 01/02/23 02:00 BP 124/59 01/01/23 17:15 Pulse Ox 95 01/02/23 02:00 O2 Del Method Nasal Cannula 01/02/23 05:39 O2 Flow Rate 2 01/02/23 05:39 FiO2 30 12/29/22 13:39 01/01/23 01/02/23 01/02/23 22:59 06:59 14:59 Intake Total 340 / 940.855 250 / 1190.855 Balance 340 / 940.855 250 / 1190.855 Weight last 48 hrs Weight 180 lb Weight 180 lb 11.2 oz Weight 180 lb 11.2 oz Weight 160 lb 4.417 oz Physical Exam Narrative: GENERAL: In general he is grumpy but awake and alert HEENT: Exam within normal limits. NECK: Supple without jugular vein distention. The carotid upstroke is normal without bruits. BACK: Exam normal. LUNGS: Clear. HEART: Regular rate and rhythm. ABDOMEN: Benign without organomegaly or tenderness. EXTREMITIES: No edema. NEUROLOGIC: Exam normal. SKIN: Unremarkable. Urinary Catheter Management: Hong: Cath Placed During This Visit: no Reason for Continuing Indwelling Catheter: Accurate Measurement of Urinary Output in Critically Ill Patients Data 01/02/23 03:45 01/02/23 03:45 A&P Assessment and plan (1) End stage renal disease on dialysis: (2) Delirium: (3) Haemophilus influenzae pneumonia: (4) Bilateral pleural effusion: (5) STEMI (ST elevation myocardial infarction): (6) Cardiac arrest with ventricular fibrillation: (7) NSTEMI (non-ST elevated myocardial infarction): (8) Hypertension: (9) Polycystic kidney disease: (10) Right bundle branch block (RBBB) on electrocardiogram (ECG): (11) Bilateral hydronephrosis: (12) Anemia in chronic kidney disease: Plan He is back in sinus rhythm. The medications are all by mouth now. Compliance will continue to be a problem. He will not likely take the Plavix and the Eliquis. His discharge he should go home on amiodarone 400 mg daily for 1 week then 200 mg daily. He should be on Eliquis as prescribed, Plavix as prescribed. No aspirin. His other medications as currently prescribed. Attestations Medical Necessity Statement*: Hospitalization for management of all of the above acute medical problems and Moderate Time for a total of 35 minutes, includes reviewing past or interval history, examining/interviewing patient and documenting encounter Diagnoses End stage renal disease on dialysis N18.6; Z99.2 Delirium R41.0 Haemophilus influenzae pneumonia J14 Bilateral pleural effusion J90 STEMI (ST elevation myocardial infarction) I21.3 Cardiac arrest with ventricular fibrillation I46.9; I49.01 NSTEMI (non-ST elevated myocardial infarction) I21.4 Hypertension I10 Polycystic kidney disease Q61.3 Right bundle branch block (RBBB) on electrocardiogram (ECG) I45.10 Bilateral hydronephrosis N13.30 Anemia in chronic kidney disease N18.9; D63.1
--- NOTE | 2023-01-02 10:20 | PC.NURSE ---
Spoke with Dr. Duarte during patient rounding about Blood pressure medications given at 0800 and BP medications due at 0900. Patient current BP 126/74 with dialysis planned for this morning. Verbal order to hold meds pending dialysis. Will reassess after completion of dialysis.
[2023-01-02] MEDS: heparin, porcine 1,000 unit/mL INJ 10 mL 1000 UNIT IV (10:31)
[2023-01-02] MEDS: allopurinol 100 mg Tablet PO (12:17)
--- NOTE | 2023-01-02 16:08 | P.PN_ITS ---
Subjective Subjective: Patient was seen this morning he is alert to person, to place, to time, he follows commands, when asked him why he is here in the hospital he tells me that his heart stopped, I discussed the importance of compliance, following instructions, he is agreeable to spend another night in the hospital, for him to receive dialysis and likely discharge thereafter, Vitals/I&O/Wt Last Vital Signs Temp 98.2 F 01/02/23 14:49 Pulse 65 01/02/23 16:02 Resp 24 H 01/02/23 14:49 BP 122/70 01/02/23 14:49 Pulse Ox 94 01/02/23 14:14 O2 Del Method Nasal Cannula 01/02/23 14:14 O2 Flow Rate 2 01/02/23 14:14 FiO2 30 12/29/22 13:39 01/02/23 01/02/23 01/02/23 06:59 14:59 22:59 Intake Total 250 / 1190.855 535 / 535 Output Total 3300 / 3300 Balance 250 / 1190.855 -2765 / -2765 Weight last 48 hrs Weight 82.3 kg Weight 81.647 kg Weight 81.964 kg Weight 81.964 kg Weight 72.7 kg Physical Exam Const: COMMON NORMALS: no acute distress and patient oriented x3 Resp: COMMON NORMALS: normal respiratory effort, No retractions, No use of accessory muscles and clear to auscultation bilaterally AUSCULTATION: clear to auscultation bilaterally Cardio: COMMON NORMALS: regular rate, regular rhythm, S1 normal heart sound present and S2 normal heart sound present RATE: regular rate RHYTHM: regular rhythm HEART SOUNDS: S1 normal heart sound present and S2 normal heart sound present GI: COMMON NORMALS: Normal to inspection, nondistended, normoactive bowel sounds present and non-tender Extremity: COMMON NORMALS: no pedal edema Neuro: COMMON NORMALS: patient oriented x3 Psych: COMMON NORMALS: mental status grossly normal Urinary Catheter Management: Hong: Cath Placed During This Visit: no Reason for Continuing Indwelling Catheter: Accurate Measurement of Urinary Output in Critically Ill Patients Data 01/02/23 03:45 01/02/23 03:45 A&P Assessment and plan (1) STEMI (ST elevation myocardial infarction): (2) Chest pain: (3) End-stage renal disease (ESRD): (4) Right bundle branch block (RBBB) on electrocardiogram (ECG): (5) Hypertension: (6) Polycystic kidney disease: (7) GERD (gastroesophageal reflux disease): (8) Cardiac arrest with ventricular fibrillation: (9) Respiratory failure, acute: (10) Pneumonia: (11) Atrial fibrillation with rapid ventricular response: (12) Shock: (13) Pulmonary edema: (14) Bilateral pleural effusion: (15) Haemophilus influenzae pneumonia: (16) Delirium: (17) Post ICU syndrome: (18) Anoxic brain injury: Plan 57 yo M with a past medical history significant for polycystic kidney disease, hypertension, GERD, gout, and ESRD on HD admitted s/p cardiac arrest, STEMI with angioplasty and stenting x 2. Acute hypoxic respiratory failure -Likely multifactorial from cardiac arrest, pulmonary edema, Haemophilus influenzae pneumonia -Plan -Currently extubated, on 3L -Continue pulmonary toilet ? De-escalate to doxycycline Haemophilus influenzae pneumonia -Receiving dialysis this morning A-fib with RVR -Transition off amiodarone drip to p.o. amiodarone 400 twice daily -Transition off heparin drip to Eliquis 5 mg twice a day -Monitor in ICU for 24 hours Haemophilus influenzae pneumonia -Follow sputum cultures -Follow blood cultures -Continue doxycycline Altered mental status, resolving -Status postcardiac arrest -Follows commands, still has mental fogginess, episodes of delirium -Head CT no acute findings -Potentially multifactorial from haemophilus influenza, post ICU syndrome, potential anoxic brain injury, possible hypertensive encephalopathy -Will monitor. Hypertensive urgency -Will slowly start resuming home blood pressure medications, monitor mentation Shock, resolved -Multifactorial, from cardiac arrest, fluid overload, pneumonia Cardiac arrest with ventricular fibrillation -Status post ROSC -Status post STEMI, stent placement x 2 STEMI -Status post angioplasty with stent placement x 2 -Repeat cardiac echocardiogram shows EF of 55 to 60% -Cardiology on consult -On Plavix, statin End-stage renal disease -With history of resistant hyperkalemia -Potential dialysis for today Code Status: Full DVT PPx: SCD's. heparin GI PPx: famotidine ABx: None Diet: Cardiac Discharge plan: Will determine when appropriate. Plan for today, dialysis, continue antibiotics, monitor heart rates, up out of bed, will move to general medical floors, likely discharge in next 24 hours, patient declines placement at shelter facility Attestations Medical Necessity Statement*: Patient requires hospitalization for respiratory failure, A-fib, Haemophilus influenzae pneumonia, altered mental status Diagnoses STEMI (ST elevation myocardial infarction) I21.3 Chest pain R07.9 End-stage renal disease (ESRD) N18.6 Right bundle branch block (RBBB) on electrocardiogram (ECG) I45.10 Hypertension I10 Polycystic kidney disease Q61.3 GERD (gastroesophageal reflux disease) K21.9 Cardiac arrest with ventricular fibrillation I46.9; I49.01 Respiratory failure, acute J96.00 Pneumonia J18.9 Atrial fibrillation with rapid ventricular response I48.91 Shock R57.9 Pulmonary edema J81.1 Bilateral pleural effusion J90 Haemophilus influenzae pneumonia J14 Delirium R41.0 Post ICU syndrome Anoxic brain injury G93.1
[2023-01-02] MEDS: cloNIDine 0.1 mg Tablet PO (17:32)
[2023-01-02] MEDS: levothyroxine 75 mcg Tablet PO (20:02)
[2023-01-02] MEDS: atorvastatin 40 mg Tablet PO (20:02)
--- NOTE | 2023-01-02 20:28 | PC.NURSE ---
1999- dr moya notified pt back in controlled afib 90s-100s with bp 92/60 map 70, notified pt is on elequis and that metoprolol is being held for low bp, no new orders at this time. pt in no apparent distress and denies needs at this time.
[2023-01-03] VITALS (56 sets, daily range): BP systolic 115–159; BP diastolic 67–102; PULSE 65–86; RESP 15–31; TEMP 36.5–36.8; O2SAT 83–97
[2023-01-03] MEDS: ipratropium-albuterol 3 mL Neb INHALATION ×2 (01:04→07:27)
[2023-01-03 04:40] LABS: Basophils # 0.1 10^3/uL (0.0-0.1); Basophils % 0.6 %; Eosinophils # 0.1 10^3/uL (0.0-0.8); Eosinophils % 0.8 %; Hematocrit 35.2 % (42.0-52.0); Hemoglobin 11.1 g/dL (11.7-16.6); Lymphocytes # 0.9 10^3/uL (0.8-4.8); Lymphocytes % 9.5 %; Mean Corpuscular HGB Conc 31.5 g/dL (30.0-36.0); Mean Corpuscular Hemoglobin 29.7 pg (28.0-34.0); Mean Corpuscular Volume 94.1 fl (80-94); Mean Platelet Volume 9.7 fL (7.4-10.4); Neutrophils # 7.11 10^3/uL (1.8-7.7); Nucleated Red Blood Cells % 0 %; Platelet Count 366 10^3/cmm (130-400); Red Blood Count 3.74 10^6/uL (4.1-5.3); Red Cell Distribution Width 13.8 % (12.1-15.1); White Blood Count 9.2 10^3/uL (4.0-10.0)
[2023-01-03 04:54] LABS: INR 1.14 (0.8-1.2)
[2023-01-03 05:07] LABS: C Reactive Protein 21.8 mg/L (0.0-4.9)
[2023-01-03 05:15] LABS: Procalcitonin 0.61 ng/mL (0-0.5)
[2023-01-03 05:27] LABS: Anion Gap 18.3 (5-19); Blood Urea Nitrogen 28 mg/dL (6-20); Calcium 10.2 mg/dL (8.5-10.5); Carbon Dioxide 26 mmol/L (22-29); Chloride 94 mmol/L (98-107); Glomerular Filtration Rate 13.6 mL/min (90-130); Glucose 89 mg/dL (65-115); Osmolality Calculated 283 mOsm/kg (285-295); Potassium 4.3 mmol/L (3.5-5.1); Sodium 134 mmol/L (136-145)
[2023-01-03 05:37] LABS: NT Pro B Type Natriuretic Pept 47838 pg/mL (0-125)
[2023-01-03] MEDS: lisinopril 20 mg Tablet 40 MG PO (08:04)
[2023-01-03] MEDS: doxycycline 100 mg Tablet PO (08:04)
[2023-01-03] MEDS: clopidogrel 75 mg Tablet PO (08:04)
[2023-01-03] MEDS: apixaban 5 mg Tablet PO ×2 (08:04→12:29)
[2023-01-03] MEDS: sertraline 50 mg Tablet PO (08:04)
[2023-01-03] MEDS: amlodipine 10 mg Tablet PO (08:04)
[2023-01-03] MEDS: cloNIDine 0.1 mg Tablet PO (08:05)
[2023-01-03] MEDS: amiodarone 200 mg Tablet 400 MG PO (08:05)
[2023-01-03] MEDS: hyDRALAzine 50 mg Tablet PO (08:05)
[2023-01-03] MEDS: allopurinol 100 mg Tablet PO (08:05)
[2023-01-03] MEDS: metoprolol tartrate 25 mg Tablet 50 MG PO ×2 (08:05→12:28)
[2023-01-03] MEDS: isosorbide mononitrate ER 60 mg Tablet 30 MG PO (08:06)
--- NOTE | 2023-01-03 10:05 | PM.PN ---
Subjective Subjective: no new complaints Medications: Reviewed: Yes Vitals/I&O/Wt Last Vital Signs Temp 98.3 F 01/03/23 08:00 Pulse 82 01/03/23 08:00 Resp 20 H 01/03/23 08:00 BP 146/78 01/03/23 08:05 Pulse Ox 94 01/03/23 08:00 O2 Del Method Nasal Cannula 01/03/23 08:00 O2 Flow Rate 2 01/03/23 08:00 FiO2 30 12/29/22 13:39 01/02/23 01/03/23 01/03/23 22:59 06:59 14:59 Intake Total 100 / 635 250 / 885 480 / 480 Output Total 300 / 3600 Balance -200 / -2965 250 / -2715 480 / 480 Weight last 48 hrs Weight 83.143 kg Weight 82.3 kg Weight 81.647 kg Physical Exam Narrative: awake ,alert , no distress Urinary Catheter Management: Hong: Cath Placed During This Visit: no Reason for Continuing Indwelling Catheter: Accurate Measurement of Urinary Output in Critically Ill Patients Data 01/03/23 04:19 01/03/23 04:19 Micro: Microbiology 12/28/22 17:50 Blood Culture - Final Blood NO GROWTH AFTER 5 DAYS 12/28/22 16:40 Blood Culture - Final Blood NO GROWTH AFTER 5 DAYS A&P Assessment and plan (1) End stage renal disease on dialysis: Plan 1) End-stage renal disease (ESRD): 1.? End-stage renal disease: On [facility] schedule as outpatient, now presented that is postcardiac arrest and underwent left heart catheter emergently.? He is currently extubated s/p HD yesterday but he cut short his rx currently on room air 2.? Status postcardiac arrest secondary to STEMI, status post left heart cath and stents 3.? Hypertension 4. Hyperkalemia , Mild , monitor 5. Anemia 6. A fib with RVR Attestations Medical Necessity Statement*: per medicine Coding Level of Care Code Acute Code for Chg Fwd Diagnoses End stage renal disease on dialysis N18.6; Z99.2
--- NOTE | 2023-01-03 13:00 | PC.NURSE ---
Discharge Note Patient discharged to home via wheelchair. Discharge instructions reviewed with patient, patient verbalized understanding of teaching. All belongings sent home with patient upon discharge.
== END 2023-01-03 12:56 | disposition home health service (06) | DRG 246 ==
LOC: ER 12:13 → ICU 12:29 → MEDSURG 12-30 20:10 → ICU 12-31 21:55
PROVIDERS: Emergency Medicine; Hospitalist; Internal Medicine; Admitting Provider Family Medicine; Emergency Provider Internal Medicine; PCP Family Medicine; Visit Provider Family Medicine
PROC: 027035Z Dilation of Coronary Artery, One Artery with Two Drug-eluting Intraluminal Devices, Percutaneous Approach (ICD-10-PCS; principal; 2022-12-26 12:45)
PROC: 027035Z Dilation of Coronary Artery, One Artery with Two Drug-eluting Intraluminal Devices, Percutaneous Approach (ICD-10-PCS; 2022-12-26 12:45)
DX: I21.11 ST elevation (STEMI) myocardial infarction involving right coronary artery (principal); I46.9 Cardiac arrest, cause unspecified; I49.01 Ventricular fibrillation; N18.6 End stage renal disease; J96.01 Acute respiratory failure with hypoxia; J14 Pneumonia due to Hemophilus influenzae; I12.0 Hypertensive chronic kidney disease with stage 5 chronic kidney disease or end stage renal disease; Q61.3 Polycystic kidney, unspecified; R18.8 Other ascites; J90 Pleural effusion, not elsewhere classified; E46 Unspecified protein-calorie malnutrition; F05 Delirium due to known physiological condition; G93.1 Anoxic brain damage, not elsewhere classified; Z99.2 Dependence on renal dialysis; Z91.158 Patient's noncompliance with renal dialysis for other reason; E87.5 Hyperkalemia; D63.1 Anemia in chronic kidney disease; I48.91 Unspecified atrial fibrillation; Z86.73 Personal history of transient ischemic attack (TIA), and cerebral infarction without residual deficits; M10.9 Gout, unspecified; E03.9 Hypothyroidism, unspecified; F32.9 Major depressive disorder, single episode, unspecified; F17.210 Nicotine dependence, cigarettes, uncomplicated; K21.9 Gastro-esophageal reflux disease without esophagitis; Z68.28 Body mass index [BMI] 28.0-28.9, adult; I16.0 Hypertensive urgency; Z79.82 Long term (current) use of aspirin; Z79.891 Long term (current) use of opiate analgesic; J44.9 Chronic obstructive pulmonary disease, unspecified; I45.10 Unspecified right bundle-branch block
CPT/HCPCS: 31500; 36415; 36416; 36556; 36592; 36600; 70450; 71045; 80048; 80051; 80053; 80061; 80306; 82140; 82306; 82310; 82330; 82803; 82805; 82962; 83605; 83735; 83880; 83970; 84100; 84145; 84439; 84443; 84481; 84484; 84550; 85025; 85347; 85610; 85730; 86140; 86705; 86706; 87040; 87070; 87205; 87340; 90935; 92507; 92523; 92526; 92610; 93005; 93308; 93454; 94002; 94003; 94640; 94664; 94760; 94799; 96361; 96365; 96366; 96367; 96372; 96374; 96375; 96376; 97116; 97161; 97166; 97530; 97535; 99285; 99291; C1724; C1725; C1769; C1874; C1887; C1894; C9602; J0171; J0282; J0360; J0461; J0612; J1630; J1644; J2185; J2250; J2704; J3010; J3490; J7030; J7050; J7060; P9047; Q3014; Q9967

== ENCOUNTER 2023-01-06 09:07 | Observation (INO) | payer MEDICARE, MEDICAID, SELFPAY ==
[2023-01-06] VITALS (27 sets, daily range): BP systolic 99–161; BP diastolic 58–88; PULSE 68–99; RESP 14–37; TEMP 36.4–37.2; O2SAT 91–98; BMI 29.0
--- NOTE | 2023-01-06 09:17 | ECG_ITS ---
[facility] Test Date: 2023-01-06 Pat Name: Navneet Savage Department: Room: Gender: Male [employer]: : [id number] Requested By: Marvin Bennett Order Number: [id number] Reading MD: Gaston Guillaume M.D. Measurements Intervals Boomer Rate: 80 P: 0 IN: 0 QRS: -28 QRSD: 130 T: 111 QT: 436 QTc: 503 Interpretive Statements ATRIAL FIBRILLATION POSSIBLE LEFT VENTRICULAR HYPERTROPHY [VOLTAGE CRITERIA PLUS LAE OR QRS WIDENING] POSSIBLE SEPTAL MYOCARDIAL INFARCTION , PROBABLY OLD [30 ms Q WAVE IN V1/V2] MODERATE T-WAVE ABNORMALITY, CONSIDER LATERAL ISCHEMIA [-0.1+ mV T-WAVE IN I/aVL/V5/V6] Compared to ECG 12/31/2022 20:23:11 Myocardial infarct finding now present T-wave abnormality still present Possible ischemia still present Electronically Signed On 01-06-2023 14:43:19 CDT by Gaston Guillaume M.D. [email or web address]
[2023-01-06 09:23] LABS: Basophils # 0.1 10^3/uL (0.0-0.1); Basophils % 0.5 %; Eosinophils # 0.2 10^3/uL (0.0-0.8); Eosinophils % 1.7 %; Hematocrit 35.7 % (42.0-52.0); Hemoglobin 11.5 g/dL (11.7-16.6); Lymphocytes # 1.5 10^3/uL (0.8-4.8); Mean Corpuscular HGB Conc 32.2 g/dL (30.0-36.0); Mean Corpuscular Hemoglobin 29.7 pg (28.0-34.0); Mean Corpuscular Volume 92.2 fl (80-94); Mean Platelet Volume 9.9 fL (7.4-10.4); Monocytes % 8.3 %; Neutrophils # 8.66 10^3/uL (1.8-7.7); Neutrophils % 75.8 %; Nucleated Red Blood Cells % 0 %; Platelet Count 453 10^3/cmm (130-400); Red Blood Count 3.87 10^6/uL (4.1-5.3); Red Cell Distribution Width 14.2 % (12.1-15.1); White Blood Count 11.4 10^3/uL (4.0-10.0)
--- NOTE | 2023-01-06 09:29 | PC.NURSE ---
per EMS pt was given 1 nitro at dialysis clinic and 324 of ASA en route 01/06/2023
[2023-01-06 09:34] LABS: Alanine Aminotransferase 6 U/L (0-41); Albumin Level 3.1 g/dL (3.5-5.2); Alkaline Phosphatase 131 U/L (40-130); Aspartate Amino Transferase 19 U/L (0-40); Blood Urea Nitrogen 21 mg/dL (6-20); Calcium 9.8 mg/dL (8.5-10.5); Carbon Dioxide 29 mmol/L (22-29); Chloride 95 mmol/L (98-107); Globulin 2.7 g/dL (1.3-4.6); Glucose 77 mg/dL (65-115); Osmolality Calculated 284 mOsm/kg (285-295); Sodium 136 mmol/L (136-145); Total Bilirubin 0.3 mg/dL (0.15-1.2); Total Protein 5.8 g/dL (6.6-8.7)
[2023-01-06 09:35] LABS: Creatinine Clr Calc Pharmacy 21.6444
[2023-01-06 09:37] LABS: Anion Gap 15.7 (5-19); Potassium 3.7 mmol/L (3.5-5.1)
[2023-01-06 09:38] LABS: Troponin(5th) Baseline 1374 ng/L (0-15)
--- NOTE | 2023-01-06 09:38 | W.ED.CHESTPA ---
HPI - Chest Pain General: Chief Complaint: Chest Pain Stated Complaint: Chest pain Time Seen by Provider: 01/06/23 09:11 Source: patient Mode of arrival: EMS History of Present Illness: 57-year-old male with a known history of coronary disease previous stents also has a history of polycystic kidney disease presents to the emergency room via EMS with complaints of chest pain that began while he was getting his dialysis run. He usually gets dialysis on Wednesday. He has relatively recently had stents and he is on Plavix and aspirin he has been taking them regularly. He is also on apixaban because of his atrial fibrillation. He was discharged from the hospital 3 days ago. On December 26 he was seen in the emergency room had V-fib arrest was intubated and subsequently taken to the [facility]. He had PCI of the RCA with 2 stents placed and orbital arthrectomy. Patient told the nurse he fell off his steps but there is no loss conscious denies his head he did not tell me anything about falling when I seen patient. No evidence of trauma on the head. MD complaint: chest pain Pertinent past history: coronary artery disease and prior [place] Onset (ago): hour(s) Pain radiation: none Relieving factors: nothing Exacerbating factors: nothing Associated symptoms: Deny abdominal pain, diaphoresis, dyspnea, fever(s), leg edema, nausea, palpitations, sense of impending doom, syncope or vomiting Review of Systems Const: Denies: fever(s), chills, fatigue, malaise or diaphoresis ENMT: Denies: throat pain, ear or mastoid pain, nasal discharge or nasal congestion Card: Reports: chest pain; Denies: palpitations or syncope Resp: Denies: dyspnea GI: Denies: abdominal pain, nausea or vomiting : Denies: flank pain, dysuria, urinary frequency or urinary urgency Skin/Breast: Denies: rash or pruritus PFSH ED PFSH: Medical History Acute hyperkalemia Altered mental status Anemia in chronic kidney disease Ascites Nephrogenic ascites Ascites gets regular paracentesis Bilateral hydronephrosis Chronic anemia CVA (cerebral vascular accident) Dilated aortic root End stage renal disease on dialysis GERD (gastroesophageal reflux disease) Gout History of stroke Hypertension Hypoglycemia Hypothyroidism Incomplete bladder emptying Major depressive disorder Malaise Neuropathy, lumbosacral (radicular) Polycystic kidney disease Right bundle branch block (RBBB) on electrocardiogram (ECG) Tobacco use disorder Surgical History AV fistula left arm History of colonoscopy 2019 at [facility] History of surgical procedure Peritoneal dialysis catheter placement by Dr. Kamara 2015 S/P hemodialysis catheter insertion (03/13/20) 23cm long exchanged right IJ Removed on 06/11/2020 Family History Mother Chronic kidney disease (CKD) Stroke Father Cancer lung Brother Hypertension Denies family history of Diabetes CAD (coronary artery disease) Clotting disorder Dementia Hyperlipidemia Psychiatric illness Anesthesia complication Bleeding disorder Lung disease Social History Smoking and tobacco status: current every day smoker cigarettes Packs smoked per day: 1 [ Other cigarette details: Half a pack per day for last 20-30 years] Alcohol intake: never Substance/Drug Use: current Substance/Drug use frequency: few times a week Marital status: Number of children: 1 Current occupational status: disabled Current gender identity: Male Agree to transfusion: Yes Physical Exam Const: GENERAL APPEARANCE: cooperative and comfortable ORIENTATION/CONSCIOUSNESS: Yes awake HENMT: COMMON NORMALS: normocephalic, atraumatic and hearing grossly normal bilaterally HEAD & SCALP: normocephalic and atraumatic Resp: COMMON NORMALS: normal respiratory effort, No retractions, No use of accessory muscles and clear to auscultation bilaterally AUSCULTATION: clear to auscultation bilaterally Cardio: COMMON NORMALS: regular rate, regular rhythm and No murmurs present (Cardio) RATE: regular rate RHYTHM: regular rhythm GI: COMMON NORMALS: Soft to palpation and No hepatosplenomegaly present AUSCULTATION: Yes normoactive bowel sounds PALPATION: Yes Soft to palpation, No Tenderness to palpation present (GI), No Guarding due to palpation present (GI) and Yes No hepatosplenomegaly present Extremity: COMMON NORMALS: normal to inspection, capillary refill normal, no clubbing, cyanosis or edema, no calf tenderness and no pedal edema Skin: COMMON NORMALS: no rashes or lesions noted GENERAL SKIN EXAM: no rashes or lesions noted Course Vital Signs: Vital signs: Vital Signs Temperature 97.7 F 01/07/23 12:00 Pulse Rate 67 01/07/23 12:00 Respiratory Rate 30 H 01/07/23 12:00 Blood Pressure 162/80 01/07/23 12:00 Pulse Oximetry 94 01/07/23 12:00 Oxygen Delivery Me thod Nasal Cannula 01/07/23 08:08 Oxygen Flow Rate 2 01/07/23 08:08 MDM - Chest Pain Medical Decision Making Troponin elevated. He is pain-free at this time discussed with the patient will admit he will also likely need to consult with nephrology to complete his dialysis run. Discussed with hospitalist orders written consult cardiology. Medical Records I reviewed the patient's medical records. Lab Data I reviewed the patient's lab results. 01/07/23 03:32 01/07/23 03:32 Radiology Impressions Chest X-Ray 01/06/23 09:56 IMPRESSION: Left basilar pneumonia versus atelectasis. Questionable small left-sided pleural effusion. Laboratory Results WBC 11.4 10^3/uL (4.0-10.0) H 01/06/23 09:10 RBC 3.87 10^6/uL (4.1-5.3) L 01/06/23 09:10 Hgb 11.5 g/dL (11.7-16.6) L 01/06/23 09:10 Hct 35.7 % (42.0-52.0) L 01/06/23 09:10 MCV 92.2 fl (80-94) 01/06/23 09:10 MCH 29.7 pg (28.0-34.0) 01/06/23 09:10 MCHC 32.2 g/dL (30.0-36.0) 01/06/23 09:10 RDW 14.2 % (12.1-15.1) 01/06/23 09:10 Plt Count 453 10^3/cmm (130-400) H 01/06/23 09:10 MPV 9.9 fL (7.4-10.4) 01/06/23 09:10 Neut % (Auto) 75.8 % 01/06/23 09:10 Lymph % (Auto) 13.0 % 01/06/23 09:10 [place] % (Auto) 8.3 % 01/06/23 09:10 Eos % (Auto) 1.7 % 01/06/23 09:10 Baso % (Auto) 0.5 % 01/06/23 09:10 Neut # (Auto) 8.66 10^3/uL (1.8-7.7) H 01/06/23 09:10 Lymph # (Auto) 1.5 10^3/uL (0.8-4.8) 01/06/23 09:10 [place] # (Auto) 1.0 10^3/uL (0.2-0.9) H 01/06/23 09:10 Eos # (Auto) 0.2 10^3/uL (0.0-0.8) 01/06/23 09:10 Baso # (Auto) 0.1 10^3/uL (0.0-0.1) 01/06/23 09:10 Nucleated RBC % (auto) 0 % 01/06/23 09:10 Nucleated RBCs # 0.0 /100WBC 01/06/23 09:10 PT 20.90 SECONDS (12.1-14.9) H 01/06/23 09:10 INR 1.74 (0.8-1.2) H 01/06/23 09:10 APTT > 250.0 SECONDS (23.9-36.7) H* 01/06/23 09:10 Sodium 136 mmol/L (136-145) 01/06/23 09:10 Potassium 3.7 mmol/L (3.5-5.1) 01/06/23 09:10 Chloride 95 mmol/L (98-107) L 01/06/23 09:10 Carbon Dioxide 29 mmol/L (22-29) 01/06/23 09:10 Anion Gap 15.7 (5-19) 01/06/23 09:10 BUN 21 mg/dL (6-20) H 01/06/23 09:10 Creatinine 3.9 mg/dL (0.7-1.2) H 01/06/23 09:10 GFR Calculation 16.0 mL/min (90-130) L 01/06/23 09:10 Glucose 77 mg/dL (65-115) 01/06/23 09:10 Calculated Osmolality 284 mOsm/kg (285-295) L 01/06/23 09:10 Calcium 9.8 mg/dL (8.5-10.5) 01/06/23 09:10 Total Bilirubin 0.3 mg/dL (0.15-1.2) 01/06/23 09:10 AST 19 U/L (0-40) 01/06/23 09:10 ALT 6 U/L (0-41) 01/06/23 09:10 Alkaline Phosphatase 131 U/L (40-130) H 01/06/23 09:10 Troponin T Baseline 1374 ng/L (0-15) H* 01/06/23 09:10 Troponin T 120 Minute 1326 ng/L (0-15) H 01/06/23 11:18 Delta Troponin T -48 ABS# (0-10) L 01/06/23 11:18 C-Reactive Protein 16.6 mg/L (0.0-4.9) H 01/06/23 09:10 Total Protein 5.8 g/dL (6.6-8.7) L 01/06/23 09:10 Albumin 3.1 g/dL (3.5-5.2) L 01/06/23 09:10 Globulin 2.7 g/dL (1.3-4.6) 01/06/23 09:10 Procalcitonin 0.32 ng/mL (0-0.5) 01/06/23 09:10 Discharge Plan Discharge Patient Disposition: Admitted As Inpatient Admit Provider: Bony Duarte Clinical Impression: Chest pain, Polycystic kidney disease, End stage renal disease on dialysis, Anemia in chronic kidney disease, Elevated troponin I level Condition: Stable Discharge Diet: Cardiac Discharge Activity: Resume usual activity Coding Level of Care Code ED Chemical Dependency Attendant for Eric Sandhu
--- NOTE | 2023-01-06 09:56 | XRR_ITS ---
PROCEDURE INFORMATION: Exam: XR Chest Exam date and time: 01/06/2023 10:01 AM Age: 57 years old Clinical indication: Cough and dyspnea; Additional info: Dyspnea/cough TECHNIQUE: Imaging protocol: Radiologic exam of the chest. Views: 1 view. COMPARISON: CR XR chest 1V portable [id number] 01/01/2023 2:11 PM FINDINGS: Lungs: Ground-glass consolidation in the left lung base. Pleural spaces: Possible trace blunting of the left costophrenic angle. Heart/Mediastinum: The cardiomediastinal silhouette is within normal limits. Bones/joints: Unremarkable. XR/XR chest 1V portable [id number] IMPRESSION: Left basilar pneumonia versus atelectasis. Questionable small left-sided pleural effusion.
[2023-01-06 09:57] LABS: INR 1.74 (0.8-1.2)
[2023-01-06 10:22] LABS: Partial Thromboplastin Time > 250.0 SECONDS (23.9-36.7)
--- NOTE | 2023-01-06 10:24 | PC.NURSE ---
PHYSICIAN NOTIFIED OF APTT RESULT GREATER THAN 250. PHYSICIAN GAVE VERBAL ORDER TO HOLD HEPARIN DRIP AND BOLUS DOSE.
--- NOTE | 2023-01-06 11:17 | ECG_ITS ---
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 Measurements Intervals [place] Rate: 82 P: 0 TN: 0 QRS: -34 QRSD: 125 T: 104 QT: 417 QTc: 490 Interpretive Statements ATRIAL FIBRILLATION LEFT AXIS DEVIATION [QRS AXIS < -30] POSSIBLE LEFT VENTRICULAR HYPERTROPHY [VOLTAGE CRITERIA PLUS LAE OR QRS WIDENING] POSSIBLE SEPTAL MYOCARDIAL INFARCTION , OF INDETERMINATE AGE [30 ms Q WAVE IN V1/V2] MODERATE T-WAVE ABNORMALITY, CONSIDER LATERAL ISCHEMIA [-0.1+ mV T-WAVE IN I/aVL/V5/V6] Compared to ECG 01/06/2023 09:13:48 Left-axis deviation now present Myocardial infarct finding still present T-wave abnormality still present Possible ischemia still present Electronically Signed On 01-06-2023 14:47:06 CDT by Gaston Guillaume M.D. [id number]
[2023-01-06] MEDS: nitroglycerin 1 gm/inch oint Pkt 0.5 INCH TOPICAL (11:29)
[2023-01-06 11:54] LABS: Troponin 5 2HR 1326 ng/L (0-15); Troponin 5 2HR Delta -48 ABS# (0-10)
[2023-01-06] MEDS: levofloxacin-dextrose 5 % 500 MG/100 ML PREMIX 100 MG IV (12:03)
--- NOTE | 2023-01-06 12:27 | PM.HP ---
Providers/Chief Complaint Primary Care Provider: Randolph Ortiz MD Chief Complaint: Chest pain History of Present Illness Navneet Savage is a 57 year old male with a past medical history of CAD status post stenting x2, atrial fibrillation on Eliquis, recent hospitalization for cardiac arrest, pulmonary edema, pneumonia, has end-stage renal disease on dialysis, history of noncompliance, history of resistant hyperkalemia, history of leaving AGAINST MEDICAL ADVICE, who presents [facility] from dialysis due to complaints of chest pain. Patient was at dialysis when he complained of severe chest pain, nonradiating, with shortness of breath, no lightheadedness, no dizziness, no diaphoresis. Patient is adamant that he has been taking his blood thinner, and his Plavix, denies missing any doses, currently chest pain-free, troponin in the emergency room was over 1300, with EKG showing T wave inversions in the lateral leads, no acute ST-T wave changes, currently he is resting comfortably, normotensive, afebrile, blood pressure 110/74, has been given aspirin, has been heparinized, receiving Levaquin for possible pneumonia, hospitalist team called for admission, Review of Systems Const: Denies: fever(s) or chills ENMT: Denies: throat pain Card: Reports: chest pain; Denies: palpitations or lightheadedness Resp: Denies: dyspnea, productive cough or non-productive cough GI: Denies: abdominal pain, nausea or vomiting : Denies: flank pain Musc: Denies: neck pain or back pain Skin/Breast: Denies: rash Neuro: Denies: headache(s), numbness in extremities or weakness in extremities Psych: Denies: anxiety Medications/Allergies Home Medications Medication Instructions Recorded Confirmed Last Taken Type cinacalcet 30 mg tablet 30 mg PO DAILY 05/12/22 01/06/23 12/11/22 History cholecalciferol (vitamin D3) 125 125 mcg PO DAILY 06/18/22 01/06/23 12/11/22 History mcg (5,000 unit) capsule ferric citrate 210 mg iron tablet 2 tab PO TID 06/22/22 01/06/23 12/11/22 History (Auryxia) vit B,C-folic ac 800 mcg-zinc 12.5 1 tab PO DAILY 06/22/22 01/06/23 12/11/22 History mg-selen-D3 2,000 unit-vit E tablet (RenaPlex-D) sodium zirconium cyclosilicate 5 5 g PO DAILY #11 ea 12/22/22 01/06/23 Unknown Rx gram oral powder packet (Lokelma) amlodipine 10 mg tablet 10 mg PO DAILY 30 days #30 tabs 12/31/22 01/06/23 Unknown Rx atorvastatin 40 mg tablet 40 mg PO BEDTIME 30 days #30 tabs 12/31/22 01/06/23 Unknown Rx clonidine HCl 0.2 mg tablet 0.1 mg PO BID 30 days #60 tabs 12/31/22 01/06/23 Unknown Rx clopidogrel 75 mg tablet 75 mg PO DAILY 30 days #30 tabs 12/31/22 01/06/23 Unknown Rx doxycycline hyclate 100 mg tablet 100 mg PO BID 7 days #14 tabs 12/31/22 01/06/23 Unknown Rx hydralazine 50 mg tablet 50 mg PO TID 30 days #90 tabs 12/31/22 01/06/23 Unknown Rx isosorbide mononitrate 60 mg 30 mg PO DAILY 30 days #15 tabs 12/31/22 01/06/23 Unknown Rx tablet,extended release 24 hr levothyroxine 75 mcg tablet 75 mcg PO DAILY 30 days #60 tabs 12/31/22 01/06/23 Unknown Rx metoprolol tartrate 50 mg tablet 50 mg PO BID@0900,2100 30 days #60 12/31/22 01/06/23 Unknown Rx tabs nitroglycerin 0.4 mg sublingual 0.4 mg sublingual Q5M PRN Chest 12/31/22 01/06/23 Unknown Rx tablet Pain 30 days #30 tabs amiodarone 400 mg tablet 400 mg PO DAILY 1 month #60 tabs 01/03/23 01/06/23 Unknown Rx apixaban 5 mg tablet (Eliquis) 5 mg PO BID 30 days #60 tabs 01/03/23 01/06/23 Unknown Rx lisinopril 40 mg tablet 40 mg PO DAILY 30 days #30 tabs 01/03/23 01/06/23 Unknown Rx carvedilol 25 mg tablet 25 mg PO BID 01/06/23 01/06/23 Unknown History hydroxyzine HCl 25 mg tablet 25 mg PO QID PRN Itching 01/06/23 01/06/23 Unknown History hydroxyzine HCl 50 mg tablet 50 mg PO .BEDTIME 01/06/23 01/06/23 Unknown History Allergies Allergy/AdvReac Type Severity Reaction Status Date / Time Penicillins Allergy ALGY-Anaphy Verified 12/26/22 10:52 laxis Sulfa (Sulfonamide Allergy Unknown Verified 12/26/22 10:52 Antibiotics) fluoxetine [From Prozac] AdvReac Mild stomach Verified 12/26/22 10:52 upset PFSH Acute PFSH: Medical History Acute hyperkalemia Altered mental status Anemia in chronic kidney disease Ascites Nephrogenic ascites Ascites gets regular paracentesis Bilateral hydronephrosis Chronic anemia CVA (cerebral vascular accident) Dilated aortic root End stage renal disease on dialysis GERD (gastroesophageal reflux disease) Gout History of stroke Hypertension Hypoglycemia Hypothyroidism Incomplete bladder emptying Major depressive disorder Malaise Neuropathy, lumbosacral (radicular) Polycystic kidney disease Right bundle branch block (RBBB) on electrocardiogram (ECG) Tobacco use disorder Surgical History AV fistula left arm History of colonoscopy 2019 at [facility] History of surgical procedure Peritoneal dialysis catheter placement by Dr. Kamara 2015 S/P hemodialysis catheter insertion (03/13/20) 23cm long exchanged right IJ Removed on 06/11/2020 Family History Mother Chronic kidney disease (CKD) Stroke Father Cancer lung Brother Hypertension Denies family history of Diabetes CAD (coronary artery disease) Clotting disorder Dementia Hyperlipidemia Psychiatric illness Anesthesia complication Bleeding disorder Lung disease Social History Smoking and tobacco status: current every day smoker cigarettes Packs smoked per day: 1 [ Other cigarette details: Half a pack per day for last 20-30 years] Alcohol intake: never Substance/Drug Use: current Substance/Drug use frequency: few times a week Marital status: Number of children: 1 Current occupational status: disabled Current gender identity: Male Agree to transfusion: Yes Vitals/I&O/Wt Last Vital Signs Temp 98.9 F 01/06/23 09:11 Pulse 94 01/06/23 11:29 Resp 16 01/06/23 09:11 BP 110/74 01/06/23 11:29 Pulse Ox 92 01/06/23 09:11 O2 Del Method Room Air 01/06/23 09:11 Weight last 48 hrs Weight 83.915 kg Physical Exam Const: COMMON NORMALS: no acute distress GENERAL APPEARANCE: cooperative, well kempt and well developed ORIENTATION/CONSCIOUSNESS: Yes awake, Yes oriented to person and Yes oriented to place; not oriented to time HENMT: COMMON NORMALS: normocephalic and Normal external nose present HEAD & SCALP: normocephalic FACE & SINUS: normal facial exam NOSE: Normal external nose present Eye: COMMON NORMALS: Equal, round and reactive pupils present, EOMs intact bilaterally, conjunctivae normal and no scleral icterus CONJUNCTIVA: Yes conjunctivae normal PUPIL: Yes Equal, round and reactive pupils present Neck/C-Spine: COMMON NORMALS: full ROM, no lymphadenopathy, no JVD, Thyroid normal and No carotid bruits Lymph: LYMPHATIC: no lymphadenopathy noted Chest: COMMONS NORMALS: normal inspection of the chest Resp: COMMON NORMALS: normal respiratory effort, No retractions, No use of accessory muscles and clear to auscultation bilaterally AUSCULTATION: clear to auscultation bilaterally Cardio: COMMON NORMALS: no JVD, regular rate, S1 normal heart sound present, S2 normal heart sound present, No murmurs present (Cardio) and Peripheral pulses 2+ throughout RATE: regular rate RHYTHM: abnormal rhythm irregularly irregular HEART SOUNDS: S1 normal heart sound present and S2 normal heart sound present PERIPHERAL PULSES: Peripheral pulses 2+ throughout GI: COMMON NORMALS: Normal to inspection, nondistended, normoactive bowel sounds present, Soft to palpation and non-tender PALPATION: Yes Soft to palpation : BLADDER/KIDNEY EXAM: Yes no CVA tenderness Back/Pelvis: COMMON NORMALS: no CVA tenderness Extremity: COMMON NORMALS: normal to inspection, full ROM, no calf tenderness and no pedal edema Neuro: COMMON NORMALS: CN's II-XII intact bilaterally, moves all extremities, no focal motor deficits and no sensory deficits noted MENINGEAL SIGNS: Yes no meningeal signs Psych: COMMON NORMALS: mental status grossly normal, Normal thought process present, cooperative and speech normal APPEARANCE: Yes well kempt SPEECH: Yes normal speech THOUGHT PROCESS: Normal thought process present Skin: COMMON NORMALS: turgor normal and no jaundice GENERAL SKIN EXAM: turgor normal Data 01/06/23 09:10 01/06/23 09:10 Micro: Microbiology 01/06/23 11:18 Blood Culture - Preliminary Blood SPECIMEN COLLECTED 01/06/23 11:12 Blood Culture - Preliminary Blood SPECIMEN COLLECTED A&P Assessment and plan (1) Chest pain: (2) NSTEMI (non-ST elevated myocardial infarction): Plan Chest pain -Currently chest pain-free -Status recent hospitalization for cardiac arrest with V-fib, status post STEMI, stent placement x2 -Patient is adamant that he was compliant with his medications -Continue heparin drip -Continue Plavix -Still EKGs, serial troponins, telemetry monitoring -Cardiology consulted -Full code -Heparin for DVT prophylaxis A-fib -Not in exacerbation, continue home medications Hypertension, continue home blood pressure medications End-stage renal disease, consult nephrology for possible dialysis tomorrow Attestations Medical Necessity Statement*: Patient requires hospitalization, inpatient, greater than 2 midnights, for NSTEMI, chest pain Coding Level of Care Code Acute Code for [facility] Diagnoses Chest pain R07.9 NSTEMI (non-ST elevated myocardial infarction) I21.4
[2023-01-06 13:24] LABS: C Reactive Protein 16.6 mg/L (0.0-4.9)
[2023-01-06 13:31] LABS: Procalcitonin 0.32 ng/mL (0-0.5)
--- NOTE | 2023-01-06 13:33 | PC.NURSE ---
PT PLACED ON CONTINUOUS NIBP ,SPO2, AND CM
--- NOTE | 2023-01-06 15:17 | ECG_ITS ---
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 Measurements Intervals [place] Rate: 88 P: 0 MD: 0 QRS: -31 QRSD: 117 T: 109 QT: 407 QTc: 493 Interpretive Statements ATRIAL FIBRILLATION LEFT AXIS DEVIATION [QRS AXIS < -30] MINIMAL VOLTAGE CRITERIA FOR LVH, CONSIDER NORMAL VARIANT [MEETS CRITERIA IN ONE OF: R(aVL), S(V1), R(V5), R(V5/V6)+S(V1)] SEPTAL MYOCARDIAL INFARCTION , OF INDETERMINATE AGE [40+ ms Q WAVE IN V1/V2] MODERATE T-WAVE ABNORMALITY, CONSIDER LATERAL ISCHEMIA [-0.1+ mV T-WAVE IN I/aVL/V5/V6] Compared to ECG 01/06/2023 11:32:28 No significant changes Electronically Signed On 01-07-2023 8:00:28 CDT by Saurabh Fitzpatrick M.D. [id number]
--- NOTE | 2023-01-06 15:39 | P.CONIM_ITS ---
Providers/Reason For Consult Consulting Physician/Specialty*: Saurabh Fitzpatrick MD / Cardiology Reason for Consult*: Chest pain/troponin elevation Requesting Physician: Dr Duarte Attending Physician: Bony Duarte MD Primary Care Provider: Randolph Ortiz MD History of Present Illness History of Present Illness Navneet Savage is a 57 year old male with past medical history of end- stage renal disease on dialysis, recent ST elevation MA for which she underwent successful revascularization of RCA with 2 stents presented to hospital with heartburn sensation. According to patient continued last night and decided to come to the hospital. His troponin has been elevated however did not trend up significantly. He says he is compliant with his anticoagulation and antiplatelet therapy. No current chest pain. EKG shows atrial fibrillation with heart rate of [address]-T wave changes. No ST elevations are noted. Review of Systems Const: Denies: fever(s) or chills Card: Reports: chest pain; Denies: palpitations or lightheadedness Resp: Denies: dyspnea, productive cough or non-productive cough GI: Denies: abdominal pain, nausea or vomiting : Denies: flank pain Musc: Denies: neck pain or back pain Skin/Breast: Denies: rash Neuro: Denies: headache(s), numbness in extremities or weakness in extremities Psych: Denies: anxiety Medications/Allergies Home Medications Medication Instructions Recorded Confirmed Last Taken Type cinacalcet 30 mg tablet 30 mg PO DAILY 05/12/22 01/06/23 12/11/22 History cholecalciferol (vitamin D3) 125 125 mcg PO DAILY 06/18/22 01/06/23 12/11/22 History mcg (5,000 unit) capsule ferric citrate 210 mg iron tablet 2 tab PO TID 06/22/22 01/06/23 12/11/22 History (Auryxia) vit B,C-folic ac 800 mcg-zinc 12.5 1 tab PO DAILY 06/22/22 01/06/23 12/11/22 History mg-selen-D3 2,000 unit-vit E tablet (RenaPlex-D) sodium zirconium cyclosilicate 5 5 g PO DAILY #11 ea 12/22/22 01/06/23 Unknown Rx gram oral powder packet (Lokelma) amlodipine 10 mg tablet 10 mg PO DAILY 30 days #30 tabs 12/31/22 01/06/23 Unknown Rx atorvastatin 40 mg tablet 40 mg PO BEDTIME 30 days #30 tabs 12/31/22 01/06/23 Unknown Rx clonidine HCl 0.2 mg tablet 0.1 mg PO BID 30 days #60 tabs 12/31/22 01/06/23 Unknown Rx clopidogrel 75 mg tablet 75 mg PO DAILY 30 days #30 tabs 12/31/22 01/06/23 Unknown Rx doxycycline hyclate 100 mg tablet 100 mg PO BID 7 days #14 tabs 12/31/22 01/06/23 Unknown Rx hydralazine 50 mg tablet 50 mg PO TID 30 days #90 tabs 12/31/22 01/06/23 Unknown Rx isosorbide mononitrate 60 mg 30 mg PO DAILY 30 days #15 tabs 12/31/22 01/06/23 Unknown Rx tablet,extended release 24 hr levothyroxine 75 mcg tablet 75 mcg PO DAILY 30 days #60 tabs 12/31/22 01/06/23 Unknown Rx metoprolol tartrate 50 mg tablet 50 mg PO BID@0900,2100 30 days #60 12/31/22 01/06/23 Unknown Rx tabs nitroglycerin 0.4 mg sublingual 0.4 mg sublingual Q5M PRN Chest 12/31/22 01/06/23 Unknown Rx tablet Pain 30 days #30 tabs amiodarone 400 mg tablet 400 mg PO DAILY 1 month #60 tabs 01/03/23 01/06/23 Unknown Rx apixaban 5 mg tablet (Eliquis) 5 mg PO BID 30 days #60 tabs 01/03/23 01/06/23 Unknown Rx lisinopril 40 mg tablet 40 mg PO DAILY 30 days #30 tabs 01/03/23 01/06/23 Unknown Rx carvedilol 25 mg tablet 25 mg PO BID 01/06/23 01/06/23 Unknown History hydroxyzine HCl 25 mg tablet 25 mg PO QID PRN Itching 01/06/23 01/06/23 Unknown History hydroxyzine HCl 50 mg tablet 50 mg PO .BEDTIME 01/06/23 01/06/23 Unknown History Allergies Allergy/AdvReac Type Severity Reaction Status Date / Time Penicillins Allergy ALGY-Anaphy Verified 12/26/22 10:52 laxis Sulfa (Sulfonamide Allergy Unknown Verified 12/26/22 10:52 Antibiotics) fluoxetine [From Prozac] AdvReac Mild stomach Verified 12/26/22 10:52 upset PFSH Acute PFSH: Medical History Acute hyperkalemia Altered mental status Anemia in chronic kidney disease Ascites Nephrogenic ascites Ascites gets regular paracentesis Bilateral hydronephrosis Chronic anemia CVA (cerebral vascular accident) Dilated aortic root End stage renal disease on dialysis GERD (gastroesophageal reflux disease) Gout History of stroke Hypertension Hypoglycemia Hypothyroidism Incomplete bladder emptying Major depressive disorder Malaise Neuropathy, lumbosacral (radicular) Polycystic kidney disease Right bundle branch block (RBBB) on electrocardiogram (ECG) Tobacco use disorder Surgical History AV fistula left arm History of colonoscopy 2019 at [facility] History of surgical procedure Peritoneal dialysis catheter placement by Dr. Kamara 2015 S/P hemodialysis catheter insertion (03/13/20) 23cm long exchanged right IJ Removed on 06/11/2020 Family History Mother Chronic kidney disease (CKD) Stroke Father Cancer lung Brother Hypertension Denies family history of Diabetes CAD (coronary artery disease) Clotting disorder Dementia Hyperlipidemia Psychiatric illness Anesthesia complication Bleeding disorder Lung disease Social History Smoking and tobacco status: current every day smoker cigarettes Packs smoked per day: 1 [ Other cigarette details: Half a pack per day for last 20-30 years] Alcohol intake: never Substance/Drug Use: current Substance/Drug use frequency: few times a week Marital status: Number of children: 1 Current occupational status: disabled Current gender identity: Male Agree to transfusion: Yes Vitals/I&O/Wt Last Vital Signs Temp 98.9 F 01/06/23 09:11 Pulse 79 01/06/23 13:30 Resp 16 01/06/23 13:30 BP 135/86 01/06/23 13:30 Pulse Ox 91 01/06/23 13:30 O2 Del Method Nasal Cannula 01/06/23 15:10 O2 Flow Rate 4 01/06/23 10:30 Weight last 48 hrs Weight 185 lb Physical Exam Narrative: GENERAL: Patient is alert,confused NECK: No jugular vein distension. [] HEENT: No cyanosis. No icterus. No pallor. [] HEART: Regular S1 and S2. Grade 3/6 systolic murmur LUNGS: Diminished air entry CENTRAL NERVOUS SYSTEM: Grossly nonfocal. [] EXTREMITIES: Lower extremities with 1+ edema bilaterally. Urinary Catheter Management: Hong: Cath Placed During This Visit: no Reason for Continuing Indwelling Catheter: Accurate Measurement of Urinary Output in Critically Ill Patients Data 01/07/23 03:32 01/07/23 03:32 Micro: Microbiology 01/06/23 11:18 Blood Culture - Preliminary Blood SPECIMEN COLLECTED 01/06/23 11:12 Blood Culture - Preliminary Blood SPECIMEN COLLECTED A&P Assessment and plan (1) GERD (gastroesophageal reflux disease): (2) Hypertension: (3) End stage renal disease on dialysis: (4) CAD (coronary artery disease): Plan Patient's chest discomfort is atypical and likely related to GERD. No significant EKG changes. Troponins are elevated however have not trended up significantly. In the setting of end-stage renal disease it is likely from the previous MA. He is chest pain-free at this time. We will obtain echocardiogram. If no significant changes compared to last echocardiogram, we will medically treat him. Thank you for involving us in the care of this patient. We will continue to follow. Please call with questions. Consult Attestations Medical Necessity Statement: Care expected to cross 2 midnights Coding Level of Care Code Acute Code for Chg Fwd Diagnoses GERD (gastroesophageal reflux disease) K21.9 Hypertension I10 End stage renal disease on dialysis N18.6; Z99.2 CAD (coronary artery disease) I25.10
[2023-01-06] MEDS: pantoprazole 40 mg SDV IVP (15:43)
[2023-01-06] MEDS: hyDRALAzine 50 mg Tablet PO ×2 (15:43→21:37)
[2023-01-06 16:15] LABS: Troponin 5 6HR Delta -97 ng/L (0-12)
[2023-01-06 16:16] LABS: Troponin 5 6HR 1277 ng/L (0-15)
--- NOTE | 2023-01-06 16:52 | USCV_ITS ---
Navneet Savage Age: 57 Gender: M : 1965 Exam Date: 01/06/2023 20:59 Ordering Phys: Bony Duarte MD Technologist: CT Exam Location: [facility] – [place]_ Indication: possible nstemi, hrt cath 3 weeks ago BP: 139 / 86 HR: 67 Rhythm: Sinus Technical Quality: Adequate MEASUREMENTS (Male / Female) Normal Values 2D ECHO LVOT Diameter 2.2 cm LV Ejection Fraction MOD 2C 44.6 % LV Ejection Fraction 2C AL 44.5 % LA Diameter 5.0 cm LA Width 3.1 cm Aorta at Sinotubular Diameter 3.1 cm IVC Diameter 2.0 cm M-MODE Aortic Annulus Diameter 3.5 cm LA Ao Ratio MM 1.6 MV E Point Septal Separation 1.0 cm DOPPLER AV Peak Velocity 127.0 cm/s LVOT Peak Velocity 133.0 cm/s AV Area Cont Eq vti 5.5 cm squared AV Area Cont Eq pk 4.1 cm squared MV Peak Velocity 176.0 cm/s MV Area PHT 2.1 cm squared Mitral E to A Ratio 2.7 MV E' Velocity 77.5 cm/s Mitral E to MV E' Ratio 16.5 Mitral E to LV E' Lateral Ratio 13.6 Mitral E to LV E' Septal Ratio 21.4 TR Peak Velocity 132.0 cm/s TR Peak Gradient 7.0 mmHg TV Peak E Velocity 71.0 cm/s Right Atrial Pressure 3.0 mmHg Pulmonary Artery Systolic Pressu 10.0 mmHg PV Peak Velocity 155.0 cm/s FINDINGS Left Ventricle Left ventricle is normal size. LV systolic function is normal with EF 55 to 60%. No regional wall motion abnormalities are seen. Right Ventricle Normal in size and function Right Atrium Normal in size Left Atrium Dilated Mitral Valve Moderate to severe mitral annular calcification. Trace mitral regurgitation Aortic Valve Aortic valve is thickened. No significant stenosis. Mild aortic regurgitation Tricuspid Valve Mild tricuspid regurgitation. Pulmonary artery systolic pressure is normal. Pulmonic Valve Not well visualized Pericardium Normal . Pleural effusion is noted Aorta Normal in size IVC Appears to be normal CONCLUSIONS LV systolic function is normal with EF of 55 to 60%. Left atrial dilation Trace mitral regurgitation Mild to moderate aortic regurgitation Mild tricuspid regurgitation Pleural effusion is noted. Saurabh Fitzpatrick MD (Electronically Signed) Final Date: 07 January 2023 17:14 S
[2023-01-06] MEDS: doxycycline 100 mg Tablet PO (17:26)
--- NOTE | 2023-01-06 20:35 | P.CONIM_ITS ---
Providers/Reason For Consult Consulting Physician/Specialty*: [facility]a/nEPHROLOGY Reason for Consult*: ESRD Attending Physician: Bony Duarte MD Primary Care Provider: Randolph Ortiz MD History of Present Illness History of Present Illness Navneet Savage is a 57 year old male past medical history of CAD status post stenting x2, atrial fibrillation on Eliquis, recent hospitalization for cardiac arrest due to STEMI and LHC with stents , pulmonary edema, pneumonia, gomez s end-stage renal disease on dialysis , non complaint with hD and left hospital AMA multiple times in the past presents back to ED for chest pain. Last HD was on Wednesday . In ED , vitals stable , troponin was elevated , on 3L FIO2 Review of Systems Narrative: oTHER ros ENGATIVE Medications/Allergies Home Medications Medication Instructions Recorded Confirmed Last Taken Type cinacalcet 30 mg tablet 30 mg PO DAILY 05/12/22 01/06/23 12/11/22 History cholecalciferol (vitamin D3) 125 125 mcg PO DAILY 06/18/22 01/06/23 12/11/22 History mcg (5,000 unit) capsule ferric citrate 210 mg iron tablet 2 tab PO TID 06/22/22 01/06/23 12/11/22 History (Auryxia) vit B,C-folic ac 800 mcg-zinc 12.5 1 tab PO DAILY 06/22/22 01/06/23 12/11/22 History mg-selen-D3 2,000 unit-vit E tablet (RenaPlex-D) sodium zirconium cyclosilicate 5 5 g PO DAILY #11 ea 12/22/22 01/06/23 Unknown Rx gram oral powder packet (Marvakelmo) amlodipine 10 mg tablet 10 mg PO DAILY 30 days #30 tabs 12/31/22 01/06/23 Unknown Rx atorvastatin 40 mg tablet 40 mg PO BEDTIME 30 days #30 tabs 12/31/22 01/06/23 Unknown Rx clonidine HCl 0.2 mg tablet 0.1 mg PO BID 30 days #60 tabs 12/31/22 01/06/23 Unknown Rx clopidogrel 75 mg tablet 75 mg PO DAILY 30 days #30 tabs 12/31/22 01/06/23 Unknown Rx doxycycline hyclate 100 mg tablet 100 mg PO BID 7 days #14 tabs 12/31/22 01/06/23 Unknown Rx hydralazine 50 mg tablet 50 mg PO TID 30 days #90 tabs 12/31/22 01/06/23 Unknown Rx isosorbide mononitrate 60 mg 30 mg PO DAILY 30 days #15 tabs 12/31/22 01/06/23 Unknown Rx tablet,extended release 24 hr levothyroxine 75 mcg tablet 75 mcg PO DAILY 30 days #60 tabs 12/31/22 01/06/23 Unknown Rx metoprolol tartrate 50 mg tablet 50 mg PO BID@0900,2100 30 days #60 12/31/22 01/06/23 Unknown Rx tabs nitroglycerin 0.4 mg sublingual 0.4 mg sublingual Q5M PRN Chest 12/31/22 01/06/23 Unknown Rx tablet Pain 30 days #30 tabs amiodarone 400 mg tablet 400 mg PO DAILY 1 month #60 tabs 01/03/23 01/06/23 Unknown Rx apixaban 5 mg tablet (Eliquis) 5 mg PO BID 30 days #60 tabs 01/03/23 01/06/23 Unknown Rx lisinopril 40 mg tablet 40 mg PO DAILY 30 days #30 tabs 01/03/23 01/06/23 Unknown Rx carvedilol 25 mg tablet 25 mg PO BID 01/06/23 01/06/23 Unknown History hydroxyzine HCl 25 mg tablet 25 mg PO QID PRN Itching 01/06/23 01/06/23 Unknown History hydroxyzine HCl 50 mg tablet 50 mg PO .BEDTIME 01/06/23 01/06/23 Unknown History Allergies Allergy/AdvReac Type Severity Reaction Status Date / Time Penicillins Allergy ALGY-Anaphy Verified 12/26/22 10:52 laxis Sulfa (Sulfonamide Allergy Unknown Verified 12/26/22 10:52 Antibiotics) fluoxetine [From Prozac] AdvReac Mild stomach Verified 12/26/22 10:52 upset Current Medications Generic Name Dose Route Start Last Admin Trade Name Tomq PRN Reason Stop Dose Admin Doxycycline Monohydrate 100 mg 01/06/23 18:00 01/06/23 17:26 Doxycycline 100 Mg Tablet PO 100 mg BID MINNA Administration Hydralazine HCl 50 mg 01/06/23 15:00 01/06/23 15:43 Hydralazine 50 Mg Tablet PO 50 mg TID MINNA Administration Pantoprazole Sodium 40 mg 01/06/23 16:00 01/06/23 15:43 Pantoprazole 40 Mg Sdv IVP 40 mg Q24H MINNA Administration PFSH Acute PFSH: Medical History Acute hyperkalemia Altered mental status Anemia in chronic kidney disease Ascites Nephrogenic ascites Ascites gets regular paracentesis Bilateral hydronephrosis Chronic anemia CVA (cerebral vascular accident) Dilated aortic root End stage renal disease on dialysis GERD (gastroesophageal reflux disease) Gout History of stroke Hypertension Hypoglycemia Hypothyroidism Incomplete bladder emptying Major depressive disorder Malaise Neuropathy, lumbosacral (radicular) Polycystic kidney disease Right bundle branch block (RBBB) on electrocardiogram (ECG) Tobacco use disorder Surgical History AV fistula left arm History of colonoscopy [address] [facility] History of surgical procedure Peritoneal dialysis catheter placement by Dr. Kamara 2016 S/P hemodialysis catheter insertion (03/13/20) 23cm long exchanged right IJ Removed on 06/11/2020 Family History Mother Chronic kidney disease (CKD) Stroke Father Cancer lung Brother Hypertension Denies family history of Diabetes CAD (coronary artery disease) Clotting disorder Dementia Hyperlipidemia Psychiatric illness Anesthesia complication Bleeding disorder Lung disease Social History Smoking and tobacco status: current every day smoker cigarettes Packs smoked per day: 1 [ Other cigarette details: Half a pack per day for last 20-30 years] Alcohol intake: never Substance/Drug Use: current Substance/Drug use frequency: few times a week Marital status: Number of children: 1 Current occupational status: disabled Current gender identity: Male Agree to transfusion: Yes Vitals/I&O/Wt Last Vital Signs Temp 98.5 F 01/06/23 15:50 Pulse 86 01/06/23 16:05 Resp 37 H 01/06/23 16:05 BP 106/78 01/06/23 16:05 Pulse Ox 94 01/06/23 17:40 O2 Del Method Nasal Cannula 01/06/23 17:40 O2 Flow Rate 2 01/06/23 17:40 01/06/23 01/06/23 01/06/23 06:59 14:59 22:59 Intake Total 460 / 460 Balance 460 / 460 Weight last 48 hrs Weight 83.915 kg Physical Exam Narrative: AWAKE ,ALERT , NO DISTRESS S1SW RRR PER REPORT LUNGS CLEAR PER REPORT + EDEMA Data 01/07/23 03:32 01/07/23 03:32 Micro: Microbiology 01/06/23 11:18 Blood Culture - Preliminary Blood SPECIMEN COLLECTED 01/06/23 11:12 Blood Culture - Preliminary Blood SPECIMEN COLLECTED A&P Assessment and plan (1) End stage renal disease on dialysis: Plan 1. ESRD : On HD pe MWF pt , h/o non complaince - Hd today , UF as tolerated 2. HTN : controlled 3. recent cardiac arrest , sec to CAD , s/p stents 4. CHF 5. Anemia- RADHA if Hb < 10 pt evaluated using audiovisual cart . Time spent 35 min Consult Attestations Medical Necessity Statement: PER MEDICINE Coding Level of Care Code Acute Code for Chg Fwd Diagnoses End stage renal disease on dialysis N18.6; Z99.2
[2023-01-06] MEDS: hyDROXYzine 25 mg Capsule 50 MG PO (21:34)
[2023-01-06] MEDS: atorvastatin 40 mg Tablet PO (21:34)
[2023-01-06] MEDS: metoprolol tartrate 50 mg Tablet PO (21:34)
[2023-01-06] MEDS: cloNIDine 0.1 mg Tablet PO (21:37)
[2023-01-07 03:34] VITALS: BP 139/76; PULSE 65; RESP 18; TEMP 36.7; O2SAT 96
[2023-01-07 03:55] LABS: Basophils # 0.1 10^3/uL (0.0-0.1); Basophils % 0.6 %; Eosinophils # 0.2 10^3/uL (0.0-0.8); Eosinophils % 2.1 %; Hematocrit 33.4 % (42.0-52.0); Hemoglobin 10.8 g/dL (11.7-16.6); Lymphocytes # 1.5 10^3/uL (0.8-4.8); Lymphocytes % 16.9 %; Mean Corpuscular HGB Conc 32.3 g/dL (30.0-36.0); Mean Corpuscular Volume 92.8 fl (80-94); Mean Platelet Volume 9.9 fL (7.4-10.4); Monocytes # 0.7 10^3/uL (0.2-0.9); Monocytes % 7.6 %; Neutrophils # 6.19 10^3/uL (1.8-7.7); Nucleated Red Blood Cells % 0 %; Platelet Count 447 10^3/cmm (130-400); Red Cell Distribution Width 14.2 % (12.1-15.1); White Blood Count 8.6 10^3/uL (4.0-10.0)
[2023-01-07 04:24] LABS: Alanine Aminotransferase < 5 U/L (0-41); Albumin Level 3.1 g/dL (3.5-5.2); Alkaline Phosphatase 134 U/L (40-130); Anion Gap 15.3 (5-19); Aspartate Amino Transferase 14 U/L (0-40); Blood Urea Nitrogen 32 mg/dL (6-20); Calcium 10.4 mg/dL (8.5-10.5); Carbon Dioxide 29 mmol/L (22-29); Chloride 95 mmol/L (98-107); Globulin 2.8 g/dL (1.3-4.6); Glomerular Filtration Rate 10.3 mL/min (90-130); Glucose 86 mg/dL (65-115); Magnesium 2.1 mg/dL (1.7-2.3); Osmolality Calculated 286 mOsm/kg (285-295); Phosphorus 6.5 mg/dL (2.5-4.5); Potassium 4.3 mmol/L (3.5-5.1); Sodium 135 mmol/L (136-145); Total Bilirubin 0.3 mg/dL (0.15-1.2); Total Protein 5.9 g/dL (6.6-8.7)
--- NOTE | 2023-01-07 07:57 | PM.PN ---
Subjective Subjective: Patient is stable. No chest pain Vitals/I&O/Wt Last Vital Signs Temp 98.1 F 01/07/23 03:34 Pulse 65 01/07/23 03:34 Resp 18 01/07/23 03:34 BP 139/76 01/07/23 03:34 Pulse Ox 96 01/07/23 03:34 O2 Del Method Nasal Cannula 01/07/23 03:34 O2 Flow Rate 1.5 01/06/23 21:00 01/06/23 01/07/23 01/07/23 22:59 06:59 14:59 Intake Total 560 / 560 150 / 710 Output Total 0 / 0 Balance 560 / 560 150 / 710 Weight last 48 hrs Weight 185 lb Physical Exam Narrative: GENERAL: Patient is alert,confused NECK: No jugular vein distension. [] HEENT: No cyanosis. No icterus. No pallor. [] HEART: Regular S1 and S2. Grade 3/6 systolic murmur LUNGS: Diminished air entry CENTRAL NERVOUS SYSTEM: Grossly nonfocal. [] EXTREMITIES: Lower extremities with 1+ edema bilaterally. Urinary Catheter Management: Hong: Cath Placed During This Visit: no Reason for Continuing Indwelling Catheter: Accurate Measurement of Urinary Output in Critically Ill Patients Data 01/07/23 03:32 01/07/23 03:32 Micro: Microbiology 01/06/23 11:18 Blood Culture - Preliminary Blood SPECIMEN COLLECTED 01/06/23 11:12 Blood Culture - Preliminary Blood SPECIMEN COLLECTED A&P Assessment and plan (1) GERD (gastroesophageal reflux disease): (2) Hypertension: (3) End stage renal disease on dialysis: (4) CAD (coronary artery disease): Plan Patient's chest pain is atypical. Continue medical management. Echo showed normal LV systolic function. No further cardiac testing/ treatment inpatient. Discharge planning per primary team. Please call with questions. Attestations Medical Necessity Statement*: Care expected to cross 2 midnights. Coding Level of Care Code Acute Code for Chg Fwd Diagnoses GERD (gastroesophageal reflux disease) K21.9 Hypertension I10 End stage renal disease on dialysis N18.6; Z99.2 CAD (coronary artery disease) I25.10
[2023-01-07 08:00] VITALS: BP 128/68; PULSE 64; RESP 20; TEMP 36.7; O2SAT 96
[2023-01-07 08:08] VITALS: PULSE 69; RESP 16; O2SAT 99
[2023-01-07 09:11] LABS: INR 1.25 (0.8-1.2)
[2023-01-07 09:13] LABS: Partial Thromboplastin Time 45.3 SECONDS (23.9-36.7)
--- NOTE | 2023-01-07 09:50 | PM.PN ---
Subjective Subjective: no new complaints Medications: Reviewed: Yes Vitals/I&O/Wt Last Vital Signs Temp 98.0 F 01/07/23 08:00 Pulse 69 01/07/23 08:08 Resp 16 01/07/23 08:08 BP 128/68 01/07/23 08:00 Pulse Ox 99 01/07/23 08:08 O2 Del Method Nasal Cannula 01/07/23 08:08 O2 Flow Rate 2 01/07/23 08:08 01/06/23 01/07/23 01/07/23 22:59 06:59 14:59 Intake Total 560 / 560 150 / 710 Output Total 0 / 0 Balance 560 / 560 150 / 710 Weight last 48 hrs Weight 83.915 kg Physical Exam Narrative: AWAKE ,ALERT , NO DISTRESS S1SW RRR PER REPORT LUNGS CLEAR PER REPORT + EDEMA Urinary Catheter Management: Hong: Cath Placed During This Visit: no Reason for Continuing Indwelling Catheter: Accurate Measurement of Urinary Output in Critically Ill Patients Data 01/07/23 03:32 01/07/23 03:32 Micro: Microbiology 01/06/23 11:18 Blood Culture - Preliminary Blood SPECIMEN COLLECTED 01/06/23 11:12 Blood Culture - Preliminary Blood SPECIMEN COLLECTED A&P Assessment and plan (1) End stage renal disease on dialysis: Plan 1. ESRD : On HD pe MWF pt , h/o non complaince - Hd today , UF as tolerated 2. HTN : controlled 3. recent cardiac arrest , sec to CAD , s/p stents 4. CHF 5. Anemia- RADHA if Hb < 10 pt evaluated using audiovisual cart . Time spent 35 min Attestations Medical Necessity Statement*: per medicine Coding Level of Care Code Acute Code for Chg Fwd Diagnoses End stage renal disease on dialysis N18.6; Z99.2
[2023-01-07] MEDS: amlodipine 10 mg Tablet PO (09:52)
[2023-01-07] MEDS: clopidogrel 75 mg Tablet PO (09:52)
[2023-01-07] MEDS: levothyroxine 75 mcg Tablet PO (09:52)
[2023-01-07] MEDS: lisinopril 20 mg Tablet 40 MG PO (09:52)
[2023-01-07] MEDS: amiodarone 200 mg Tablet 400 MG PO (09:52)
[2023-01-07] MEDS: isosorbide mononitrate ER 30 mg Tablet PO (09:52)
[2023-01-07] MEDS: hyDRALAzine 50 mg Tablet PO (09:52)
[2023-01-07] MEDS: doxycycline 100 mg Tablet PO (09:52)
[2023-01-07] MEDS: cholecalciferol (vitamin D3) 5,000 unit Tablet 5000 UNIT PO (09:52)
[2023-01-07] MEDS: b-complex-vitamin c Tablet 1 EACH PO (09:52)
[2023-01-07] MEDS: apixaban 5 mg Tablet PO (10:03)
[2023-01-07] MEDS: metoprolol tartrate 50 mg Tablet PO (10:03)
--- NOTE | 2023-01-07 10:09 | PC.CHAP ---
Pastoral Care Encounter/Spiritual Assessment Type of Contact [] Declined payroll representative visit [] Patient/Family/Request visit [] Outpatient visit [x] Follow-up visit [] Physician referral [] Code/Alert [] Routine visit [] Staff referral [] Actively dying [] Patient sleeping [] Family support [] [] Out of room [] Palliative care [] [] Receiving care in room [] Pre-surgical visit [] Trauma [] Long length of stay [] ICU visit [x] Other: asleep Relational/Emotional Strength [] Patient feels connected with others/family/visitors/staff [] Distress [] Loneliness/isolation [] Abandonment Spirituality of Patient [] Person of Nora [] Attends Confucianist of their Nora [] Believes in Prayer [] Reads Bible or Mu-Ism materials [] There are Spiritual issues to be addressed Programming Equipment Operator Interventions [] Prayer [] Active listening [] Non-anxious presence [] Spiritual/emotional support [] Crisis/trauma care [] Spiritual counseling [] Bereavement support [] Provided bereavement packet [] Provided Bible/devotional materials [] Provided toy/stuffed animal, coloring book to patient or family member [] Provided Communion [] Anointing/[place] [] Salvation [] Completed spiritual assessment [] Other: Impact on Illness or Injury [] Angry [] Fearful [] Anxious [] Often cries [] Exhaustion [] Unable to work [] Unable to attend yarsanism [] Unable to walk/stand [] Unable to read [] Unable to drive [] Unable to eat/drink [] Unable to sleep [] Unable to be with family [] Patient intubated [] Other: Summary asleep Time spent with patient 5 mins
--- NOTE | 2023-01-07 11:46 | P.DS_ITS ---
Discharge Providers Date of Admission: 01/06/23 14:24 Date of Discharge: January 07, 2023 Attending Provider at Admission: Bony Duarte MD Attending Provider at Discharge: Bony Duarte MD Primary Care Provider: Randolph Ortiz MD Diagnoses at Discharge Discharge Diagnosis (1) End stage renal disease on dialysis: Status: Acute Reason for Visit Reason for Visit: Chest pain Hospital Course Hospital Course Navneet Savage is a 57 year old male with a past medical history of CAD status post stenting x2, atrial fibrillation on Eliquis, recent hospitalization for cardiac arrest, pulmonary edema, pneumonia, has end-stage renal disease on dialysis, history of noncompliance, history of resistant hyperkalemia, history of leaving AGAINST MEDICAL ADVICE, who presents [facility] from dialysis due to complaints of chest pain.? Patient was at dialysis when he complained of severe chest pain, nonradiating, with shortness of breath, no lightheadedness, no dizziness, no diaphoresis.? Patient is adamant that he has been taking his blood thinner, and his Plavix, denies missing any doses, currently chest pain-free, troponin in the emergency room was over 1300, with EKG showing T wave inversions in the lateral leads, no acute ST-T wave changes, currently he is resting comfortably, normotensive, afebrile, blood pressure 110/74,hospitalist team called for admission Patient was admitted to [facility] for chest pain, NSTEMI, EKG no acute ST-T wave changes, was medically managed, patient was adamant he has been compliant with his medications, cardiology was consulted, was monitored as inpatient, no recurrent chest pain episodes, no shortness of breath episodes, will be discharged home with Plavix, Eliquis, beta-julee with close follow-up with cardiology as outpatient. If patient were to have any recurrent chest pain to go to emergency room, I also called patient's pharmacy, and confirmed that he picked up his Eliquis, and his Plavix on the January 04, and extensive discussion with patient about compliance with his medications, morbidity and mortality associated with not taking his medications as prescribed, and if he were to have any recurrent chest pain to please come back to the emergency room. He voiced understanding, all Qs answered, will be discharged home after dialysis session today Physical Exam Const: COMMON NORMALS: no acute distress and patient oriented x3 Resp: COMMON NORMALS: normal respiratory effort, No retractions, No use of ac cessory muscles and clear to auscultation bilaterally AUSCULTATION: clear to auscultation bilaterally Cardio: COMMON NORMALS: regular rate, regular rhythm, S1 normal heart sound present and S2 normal heart sound present RATE: regular rate RHYTHM: regular rhythm HEART SOUNDS: S1 normal heart sound present and S2 normal heart sound present GI: COMMON NORMALS: Normal to inspection, nondistended, normoactive bowel sounds present, non-tender and no bruits Extremity: COMMON NORMALS: no pedal edema Neuro: COMMON NORMALS: patient oriented x3 Psych: COMMON NORMALS: mental status grossly normal Urinary Catheter Management: Hong: Cath Placed During This Visit: no Reason for Continuing Indwelling Catheter: Accurate Measurement of Urinary Out put in Critically Ill Patients Discharge Data Studies Completed and Pending Completed Studies During Hospitalization Category Date Time Status XR chest 1V portable [id number] Stat Exams 01/06/23 09:56 Completed Pending at discharge Category Date Time Status Bacterial Antigen Stat Lab 01/07/23 04:51 Ordered Blood Culture Stat Lab 01/06/23 11:18 Results Complete Blood Count w/Auto AM LABS Lab 01/08/23 04:00 Ordered Complete Blood Count w/Auto AM LABS Lab 01/09/23 04:00 Ordered Comprehensive Metabolic Panel AM LABS Lab 01/08/23 04:00 Ordered Comprehensive Metabolic Panel AM LABS Lab 01/09/23 04:00 Ordered Magnesium AM LABS Lab 01/08/23 04:00 Ordered Magnesium AM LABS Lab 01/09/23 04:00 Ordered Phosphorus AM LABS Lab 01/08/23 04:00 Ordered Phosphorus AM LABS Lab 01/09/23 04:00 Ordered Sputum Culture and Gram Stain Stat Lab 01/06/23 12:52 Uncollected CV. echo complete* [id number] Routine Ultrasound 01/06/23 16:52 Taken Radiology Impressions Chest X-Ray 01/06/23 09:56 IMPRESSION: Left basilar pneumonia versus atelectasis. Questionable small left-sided pleural effusion. Laboratory Results WBC 8.6 10^3/uL (4.0-10.0) 01/07/23 03:32 RBC 3.60 10^6/uL (4.1-5.3) L 01/07/23 03:32 Hgb 10.8 g/dL (11.7-16.6) L 01/07/23 03:32 Hct 33.4 % (42.0-52.0) L 01/07/23 03:32 MCV 92.8 fl (80-94) 01/07/23 03:32 MCH 30.0 pg (28.0-34.0) 01/07/23 03:32 MCHC 32.3 g/dL (30.0-36.0) 01/07/23 03:32 RDW 14.2 % (12.1-15.1) 01/07/23 03:32 Plt Count 447 10^3/cmm (130-400) H 01/07/23 03:32 MPV 9.9 fL (7.4-10.4) 01/07/23 03:32 Neut % (Auto) 72.0 % 01/07/23 03:32 Lymph % (Auto) 16.9 % 01/07/23 03:32 [place] % (Auto) 7.6 % 01/07/23 03:32 Eos % (Auto) 2.1 % 01/07/23 03:32 Baso % (Auto) 0.6 % 01/07/23 03:32 Neut # (Auto) 6.19 10^3/uL (1.8-7.7) 01/07/23 03:32 Lymph # (Auto) 1.5 10^3/uL (0.8-4.8) 01/07/23 03:32 [place] # (Auto) 0.7 10^3/uL (0.2-0.9) 01/07/23 03:32 Eos # (Auto) 0.2 10^3/uL (0.0-0.8) 01/07/23 03:32 Baso # (Auto) 0.1 10^3/uL (0.0-0.1) 01/07/23 03:32 Nucleated RBC % (auto) 0 % 01/07/23 03:32 Nucleated RBCs # 0.0 /100WBC 01/07/23 03:32 PT 16.10 SECONDS (12.1-14.9) H 01/07/23 08:44 INR 1.25 (0.8-1.2) H 01/07/23 08:44 APTT 45.3 SECONDS (23.9-36.7) H D 01/07/23 08:44 Sodium 135 mmol/L (136-145) L 01/07/23 03:32 Potassium 4.3 mmol/L (3.5-5.1) 01/07/23 03:32 Chloride 95 mmol/L (98-107) L 01/07/23 03:32 Carbon Dioxide 29 mmol/L (22-29) 01/07/23 03:32 Anion Gap 15.3 (5-19) 01/07/23 03:32 BUN 32 mg/dL (6-20) H 01/07/23 03:32 Creatinine 5.7 mg/dL (0.7-1.2) H* 01/07/23 03:32 GFR Calculation 10.3 mL/min (90-130) L 01/07/23 03:32 Glucose 86 mg/dL (65-115) 01/07/23 03:32 Calculated Osmolality 286 mOsm/kg (285-295) 01/07/23 03:32 Calcium 10.4 mg/dL (8.5-10.5) 01/07/23 03:32 Phosphorus 6.5 mg/dL (2.5-4.5) H 01/07/23 03:32 Magnesium 2.1 mg/dL (1.7-2.3) 01/07/23 03:32 Total Bilirubin 0.3 mg/dL (0.15-1.2) 01/07/23 03:32 AST 14 U/L (0-40) 01/07/23 03:32 ALT < 5 U/L (0-41) 01/07/23 03:32 Alkaline Phosphatase 134 U/L (40-130) H 01/07/23 03:32 Troponin T Baseline 1374 ng/L (0-15) H* 01/06/23 09:10 Troponin T 120 Minute 1326 ng/L (0-15) H 01/06/23 11:18 Delta Troponin T -48 ABS# (0-10) L 01/06/23 11:18 Troponin T Hi Sens 6Hr 1277 ng/L (0-15) H 01/06/23 15:25 Troponin T Hi Sens 6Hr Delta -97 ng/L (0-12) L 01/06/23 15:25 C-Reactive Protein 16.6 mg/L (0.0-4.9) H 01/06/23 09:10 Total Protein 5.9 g/dL (6.6-8.7) L 01/07/23 03:32 Albumin 3.1 g/dL (3.5-5.2) L 01/07/23 03:32 Globulin 2.8 g/dL (1.3-4.6) 01/07/23 03:32 Procalcitonin 0.32 ng/mL (0-0.5) 01/06/23 09:10 Vitals Last Vital Signs Temp 98.0 F 01/07/23 08:00 Pulse 69 01/07/23 08:08 Resp 16 01/07/23 08:08 BP 128/68 01/07/23 08:00 Pulse Ox 99 01/07/23 08:08 O2 Del Method Nasal Cannula 01/07/23 08:08 O2 Flow Rate 2 01/07/23 08:08 Discharge Plan Discharge Patient Disposition: Home Condition: Stable Prescriptions: Continued cholecalciferol (vitamin D3) 125 mcg (5,000 unit) capsule 125 mcg PO DAILY cinacalcet 30 mg tablet 30 mg PO DAILY nitroglycerin 0.4 mg Tablet, Sublingual 0.4 mg sublingual Q5M PRN (Reason: Chest Pain) 30 Days Qty: 30 0RF metoprolol tartrate 50 mg tablet 50 mg PO BID@0900,2100 30 Days Qty: 60 0RF clopidogrel 75 mg Tablet 75 mg PO DAILY 30 Days Qty: 30 0RF atorvastatin 40 mg Tablet 40 mg PO BEDTIME 30 Days Qty: 30 0RF isosorbide mononitrate 60 mg tablet extended release 24 hr 30 mg PO DAILY 30 Days Qty: 15 0RF clonidine HCl 0.2 mg tablet 0.1 mg PO BID 30 Days Qty: 60 4RF amlodipine 10 mg Tablet 10 mg PO DAILY 30 Days Qty: 30 0RF levothyroxine 75 mcg tablet 75 mcg PO DAILY 30 Days Qty: 60 0RF hydralazine 50 mg tablet 50 mg PO TID 30 Days Qty: 90 0RF doxycycline hyclate 100 mg tablet 100 mg PO BID 7 Days Qty: 14 0RF Eliquis 5 mg tablet 5 mg PO BID 30 Days Qty: 60 0RF lisinopril 40 mg tablet 40 mg PO DAILY 30 Days Qty: 30 0RF hydroxyzine HCl 50 mg tablet 50 mg PO .BEDTIME hydroxyzine HCl 25 mg tablet 25 mg PO QID PRN (Reason: Itching) Auryxia 210 mg iron tablet 2 tab PO TID RenaPlex-D 800 mcg-12.5 mg -2,000 unit tablet 1 tab PO DAILY Lokelma 5 gram powder in packet 5 g PO DAILY Qty: 11 0RF Changed amiodarone 400 mg tablet 200 mg PO DAILY 30 Days Qty: 60 0RF Discontinued carvedilol 25 mg tablet 25 mg PO BID Discharge Orders: Discharge Order (Routine); Ordered 01/07/23 Ordered By: Bony Duarte Referrals: Haylee Segura FNP [Nurse Practitioner] - 1-3 days Randolph Ortiz MD [Primary Care Provider] - Discharge Diet: Cardiac Discharge Activity: Resume usual activity Patient Instructions: Amiodarone (By mouth) (Cordarone, Pacerone), Opioid Safety, Post Heart Attack Stoplight Activity Restrictions/Additional Instructions: - If you have any recurrent chest pain please go to the emergency room Discharge Attestations Time Spent in Discharge Care*: greater than 30 min Quality Metrics Clinical Quality Measures [ No reported AMI, CVA or VTE this stay] Coding Level of Care Code 67737 Total time (in minutes) for Discharge: 45 Diagnoses End stage renal disease on dialysis N18.6; Z99.2
[2023-01-07 12:00] VITALS: BP 162/80; PULSE 67; RESP 30; TEMP 36.5; O2SAT 94
--- NOTE | 2023-01-07 15:23 | PC.NURSE ---
Patient stated that he did not want to wait for dialysis to be over before he discharged, physician was notified and patient was educated regarding the risks and AMA paperwork was signed. IV was removed, patient taken out via wheelchair and left facility with daughter in POV
--- OUTSIDE RECORDS SUMMARY | 2023-01-14 11:43 | XMS_ITS ---
Author Name Kaylah Phipps Address [address] [place] [address] Phone [phone] Organization [facility], NA DOCUMENT DISCLAIMER Multiple document versions may exist, please be sure you review the latest version. The information in the [facility] Progress Note Document represents a providers documented clinical note containing certain health and medical information. It may not contain the complete medical history for the patient and should be independently verified. The represented time in the document is Eastern Time PROVIDER ROUNDING NOTE COMPREHENSIVE Patient:?Navneet?Hussein,?1965,?57y,?M Dialysis?Location:?[place] Attending?Engineering Laboratory Technician:?Marlin?Dequan Service?Date:?01/04/2023 Service?Provider:?Kaylah?Desire,?[employer] I?met?face?to?face?with?the?patient?today. OVERVIEW The?patient?presented?with?ESRD?on?dialysis Primary?cause?of?renal?failure:?Polycystic?kidney,?adult?type Comments:?VSS,?seen?on?HD?machine.? Continues?with?frequent?hospitalizations,?largely?s/t?hyperkalemia.&#1 60;??Increased?DFR,?increasing??needle?size?to?support& #160;potassium?removal.???Remains?without?a?firm?residence,& #160;social?impairments?with?diet,?medication?compliance.??? Medications?and?labs?reviewed. LAST?HOSPITALIZATION Discharge?Diagnosis:?I16.9?Hypertensive?crisis,?unspecified E87.5?Hyperkalemia Admission?Date?12/21/22 Discharge?Date?12/22/22 DIALYSIS?PRESCRIPTION ??IHD?3x?Week?Start?date:?11/27/22 ??Dialyzer:?180NRe?Optiflux ??BFR:?450 ??DFR:?Autoflow?1.5 ??Potassium:?2.0 ??Sodium:?138 ??EDW:?80.5 ??Duration:?4:00 ??Calcium:?2.5 ??Bicarb:?32 ??Rx?updated?on:?11/27/2022 TREATMENT?ASSESSMENT BP?Stand?Pre ??12/25/2022:?197/109 ??12/23/2022:?113/79 ??12/18/2022:?116/63 BP?Sit?Pre ??12/25/2022:?197/110 ??12/23/2022:?114/62 ??12/18/2022:?130/91 BP?Stand?Post ??12/23/2022:?132/76 ??12/18/2022:?135/83 BP?Sit?Post ??12/25/2022:?173/98 ??12/23/2022:?133/72 ??12/18/2022:?120/65 Tx?Duration ??12/25/2022:?1:58 ??12/23/2022:?4:00 ??12/18/2022:?4:00 Missed?Treatments 0?-?last?30?days 0?-?last?60?days FLUID?ASSESSMENT Comments:??ascites?present?secondary?to?liver?disease EDW?(kg) ??12/25/2022:?80.5 ??12/23/2022:?80.5 ??12/18/2022:?80.5 Weight?Pre?(kg) ??12/25/2022:?85.8 ??12/23/2022:?86.2 ??12/18/2022:?85.1 Weight?Post?(kg) ??12/25/2022:?85.8 ??12/23/2022:?83.9 ??12/18/2022:?84.6 PWV?(kg) ??12/25/2022:?5.3 ??12/23/2022:?3.4 ??12/18/2022:?4.1 UF?Rate?(mL/kg/hr) ??12/25/2022:?0 ??12/23/2022:?6.9 ??12/18/2022:?1.5 ADEQUACY?ASSESSMENT Adequacy?target?met.?Prescription?compliance?acceptable.?No?changes?indicated.? spKt/V,?URR ??12/23/2022:?1.61,?75.0 ??11/25/2022:?1.65,?75.0 ??10/28/2022:?1.54,?74.0 ACCESS?ASSESSMENT ??Access?Type:?AVFistula ??Access?SubType:?Standard ??Access?Status:?Active?(In?Use)?-?06/05/2020 ??Access?Location:?Left?Forearm ??Created:?03/27/2020 Flow ??12/07/2022:?1871 ??11/09/2022:?1069 ??11/06/2022:?1184 Vascular?access?reviewed.?Current?access?is?permanent?and?functioning?well. ANEMIA?ASSESSMENT HGB?at?goal.?Iron?parameters?acceptable.?RADHA?dose?adequate.& #160;No?changes?indicated.? HGB,?TSAT ??12/23/2022:?11.5,?75.0 ??12/16/2022:?12.0,?- ??12/09/2022:?9.8,?- ?? Ferritin ??10/28/2022:?514.0 ??07/22/2022:?461.0 Mircera,?IVP?(mcg) ??12/09/2022:?150 ??11/25/2022:?100 ??11/11/2022:?75 Iron?Sucrose?(Venofer)?(mg) ??12/23/2022:?100 ??12/09/2022:?100 ??11/25/2022:?100 BMM?ASSESSMENT Comments:?REviewed?SESTAMIBI?scan?of?PTH?with?patient:?decli ne?to?pursue?at?this?time Phosphorus,?Calcium ??12/23/2022:?11.1,?9.4 ??12/09/2022:?-,?9.4 ??11/25/2022:?12.7,?9.3 ?? PTH,?Intact ??12/23/2022:?1940.0 ??11/25/2022:?1968.0 ??11/06/2022:?1704.0 Vitamin?D?(Calcitriol)?Oral?(mcg) ??12/25/2022:?1.75 ??12/23/2022:?1.75 ??12/18/2022:?1.75 NUTRITION?ASSESSMENT Comments:?Refuses?to?take?potassium?binders,?s/t?to?reported ?taste.??Extensive?repeat?education?on?risk?to?life&#16 0;and?health?with?ongoing?potassium?elevations?and?required?hospital?treatments? Albumin,?Potassium ??12/23/2022:?3.1,?5.3 ??12/16/2022:?-,?5.8 ??12/09/2022:?-,?7.1 ?? eNPCR ??12/23/2022:?0.5 ??11/25/2022:?0.63 ??10/28/2022:?0.74 PHYSICAL?EXAM Comments:?+?ascites Exam?Not?Performed. DIAGNOSIS Chief?Complaint:?N18.6?End?stage?renal?disease Patient?data?updated?01/04/2023?at?8:40?AM Signed?By:?Desire,?Kaylah,?[employer]??on?01/04/2023?8:46:24 AM END OF DOCUMENT
== END 2023-01-07 15:26 | disposition left against medical advice (07) | DRG 280 ==
LOC: ER 12:27 → CSU 15:40 → MS 2A 01-14 11:53
PROVIDERS: Admitting Provider Family Medicine; Emergency Provider Family Medicine; PCP Family Medicine; Visit Provider Family Medicine
DX: I22.2 Subsequent non-ST elevation (NSTEMI) myocardial infarction (principal); N18.6 End stage renal disease; I13.11 Hypertensive heart and chronic kidney disease without heart failure, with stage 5 chronic kidney disease, or end stage renal disease; Q61.3 Polycystic kidney, unspecified; F17.210 Nicotine dependence, cigarettes, uncomplicated; Z99.2 Dependence on renal dialysis; Z95.5 Presence of coronary angioplasty implant and graft; Z79.01 Long term (current) use of anticoagulants; Z79.02 Long term (current) use of antithrombotics/antiplatelets; K21.9 Gastro-esophageal reflux disease without esophagitis; I48.91 Unspecified atrial fibrillation; I25.10 Atherosclerotic heart disease of native coronary artery without angina pectoris; Z53.29 Procedure and treatment not carried out because of patient's decision for other reasons; Z91.158 Patient's noncompliance with renal dialysis for other reason; Z86.73 Personal history of transient ischemic attack (TIA), and cerebral infarction without residual deficits; D63.1 Anemia in chronic kidney disease; I21.3 ST elevation (STEMI) myocardial infarction of unspecified site
CPT/HCPCS: 36415; 71045; 80053; 83735; 84100; 84145; 84484; 85025; 85610; 85730; 86140; 87040; 93005; 93306; 94664; 96365; 96366; 96375; 96376; 99285; C9113; G0378; J1956

== ENCOUNTER 2023-01-12 10:58 | Day surgery (SDC) | payer MEDICARE, MEDICAID, SELFPAY ==
[2023-01-12 11:19] VITALS: BP 137/82; PULSE 87; RESP 22; TEMP 36.8; O2SAT 94
--- NOTE | 2023-01-12 11:24 | US_ITS ---
WS: [id number] ULTRASOUND-GUIDED THERAPEUTIC PARACENTESIS Procedure, risks, and complications have been explained to the patient. Consent is obtained. Utilizing aseptic technique and 1% buffered lidocaine, a small dermatome was made through which a 5 F rench Yueh catheter was inserted. Approximately 4800 ml of clear peritoneal fluid was obtained witho ut difficulty. No complications encountered. IMPRESSION: Uncomplicated paracentesis yielding 4800 ml of peritoneal fluid.
--- NOTE | 2023-01-12 11:45 | PC.NURSE ---
patient states he recently had 3 stints put in his heart. states he doesn't even remember driving himself to the hospital. pt on blood thinners but does not recall what it is, how much or how often. notified radiology, velvet verdin called dr almanza, no pt/inr ordered.
[2023-01-12] MEDS: albumin 75 G/300 ML BAG 125 G IV (12:21)
--- NOTE | 2023-01-12 12:27 | PC.NURSE ---
patient tolerating procedure well. denies c/o
--- NOTE | 2023-01-12 12:41 | PC.NURSE ---
1235 drainage stopped, catheter removed intact, pressure held x5 minutes, bandaid placed.
--- NOTE | 2023-01-12 12:55 | PC.NURSE ---
dr arcos given as requested. patient sitting on side of bed. no distress noted.
[2023-01-12 13:00] VITALS: BP 146/98; PULSE 82; RESP 20; O2SAT 98
== END 2023-01-12 13:30 | disposition home or self-care (01) ==
PROVIDERS: Radiology Diagnostic Radiology; PCP Family Medicine; Visit Provider Internal Medicine Nephrology
PROC: (CPT 49082; principal; 2023-01-12 12:00)
DX: R18.8 Other ascites (principal)
CPT/HCPCS: 49083; 96365; P9046

== ENCOUNTER 2023-01-19 10:50 | Day surgery (SDC) | payer MEDICARE, MEDICAID, SELFPAY ==
[2023-01-18 09:30] VITALS: BMI 28.3
[2023-01-19 11:14] VITALS: BP 187/96; PULSE 93; RESP 14; TEMP 36.7; O2SAT 98
--- NOTE | 2023-01-19 11:16 | US_ITS ---
WS: [id number] INDICATION: Paracentesis TECHNIQUE: Ultrasound abdomen limited FINDINGS: Ultrasound abdomen limited for paracentesis. Insufficient fluid for paracentesis. IMPRESSION: See above
--- NOTE | 2023-01-19 11:48 | PC.NURSE ---
Ultrasound showed insufficient amount fluid to proceed with paracentesis. Pt stated he was not feeling well today, his BP was elevated, see vitals, however he declined my offer to see if his PCP could see him today and did not want me to call anyone to come get him to drive him home. Instructed pt to take his meds as prescribed upon his return home and go to ED if his BP got worse, or he got to feeling worse. Pt voiced understanding.
== END 2023-01-19 11:48 | disposition home or self-care (01) ==
LOC: GILAB 10:50
PROVIDERS: Radiology Neuroradiology; PCP Family Medicine; Visit Provider Internal Medicine Nephrology
DX: R18.8 Other ascites (principal)
CPT/HCPCS: 76705

== ENCOUNTER 2023-01-24 22:03 | Emergency (ER) | payer MEDICARE, MEDICAID, SELFPAY ==
--- NOTE | 2023-01-24 22:08 | ECG_ITS ---
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 Measurements Intervals Staples Rate: 55 P: 26 FL: 166 QRS: -31 QRSD: 109 T: -3 QT: 445 QTc: 429 Interpretive Statements SINUS BRADYCARDIA LEFT AXIS DEVIATION [QRS AXIS < -30] MINIMAL VOLTAGE CRITERIA FOR LVH, CONSIDER NORMAL VARIANT [MEETS CRITERIA IN ONE OF: R(aVL), S(V1), R(V5), R(V5/V6)+S(V1)] Compared to ECG 01/06/2023 15:28:19 Atrial fibrillation no longer present Myocardial infarct finding no longer present T-wave abnormality no longer present Possible ischemia no longer present Electronically Signed On 01-25-2023 22:31:48 CDT by Saurabh Fitzpatrick M.D. [id number] f
[2023-01-24 22:10] VITALS: PULSE 55; RESP 17; TEMP 36.6; O2SAT 99; BMI 28.1
--- NOTE | 2023-01-24 22:16 | XRR_ITS ---
PROCEDURE INFORMATION: Exam: XR Chest Exam date and time: 01/24/2023 10:28 PM Age: 57 years old Clinical indication: Shortness of breath; Chest pressure; Patient HX: C/O chest pain with SOB. History of chf. TECHNIQUE: Imaging protocol: Radiologic exam of the chest. Views: 1 view. COMPARISON: CR XR chest 1V portable [id number] 01/06/2023 10:01 AM FINDINGS: Lungs: Bibasilar atelectasis versus minimal infiltrate. Pleural spaces: Unremarkable. No pleural effusion. No pneumothorax. Heart/Mediastinum: Cardiomegaly and mild interstitial edema. Bones/joints: Unremarkable. XR/XR chest 1V portable [id number] IMPRESSION: 1. Cardiomegaly and mild interstitial edema. 2. Bibasilar atelectasis versus minimal infiltrate.
[2023-01-24 22:20] VITALS: BP 136/68; PULSE 55; RESP 18; O2SAT 99
--- NOTE | 2023-01-24 22:21 | ED_ITS ---
HPI - Chest Pain General: Chief Complaint: Chest Pain Stated Complaint: CP Time Seen by Provider: 01/24/23 22:08 Source: patient Mode of arrival: ambulatory Limitations: no limitations History of Present Illness: 57-year-old male who is very well-known to the ER with multiple medical problems along with end-stage renal disease on dialysis he had stents placed roughly 3 weeks ago he states he been having chest pain ever since. States that chest pain has been constant he rates it a 4 out of 10 currently denies any shortness of breath denies any fever denies any nausea Associated symptoms: Deny abdominal pain, dyspnea, fever(s), nausea or vomiting Review of Systems Const: Denies: fever(s), chills, body aches or change in appetite Eyes: Denies: blurry vision or eye discomfort ENMT: Denies: throat pain or dental pain Card: Reports: chest pain Resp: Denies: dyspnea GI: Denies: abdominal pain, nausea, vomiting or diarrhea : Denies: dysuria Musc: Denies: neck pain or back pain Skin/Breast: Denies: rash Neuro: Denies: headache(s) PFSH ED PFSH: Medical History Acute hyperkalemia Altered mental status Anemia in chronic kidney disease Ascites Nephrogenic ascites Ascites gets regular paracentesis Bilateral hydronephrosis Chronic anemia CVA (cerebral vascular accident) Dilated aortic root End stage renal disease on dialysis GERD (gastroesophageal reflux disease) Gout History of stroke Hypertension Hypoglycemia Hypothyroidism Incomplete bladder emptying Major depressive disorder Malaise Neuropathy, lumbosacral (radicular) Polycystic kidney disease Right bundle branch block (RBBB) on electrocardiogram (ECG) Tobacco use disorder Surgical History AV fistula left arm History of colonoscopy 2019 at [facility] History of surgical procedure Peritoneal dialysis catheter placement by Dr. Kamara 2016 S/P hemodialysis catheter insertion (03/13/20) 23cm long exchanged right IJ Removed on 06/11/2020 Family History Mother Chronic kidney disease (CKD) Stroke Father Cancer lung Brother Hypertension Denies family history of Diabetes CAD (coronary artery disease) Clotting disorder Dementia Hyperlipidemia Psychiatric illness Anesthesia complication Bleeding disorder Lung disease Social History Smoking and tobacco status: current every day smoker cigarettes Packs smoked per day: 1 [ Other cigarette details: Half a pack per day for last 20-30 years] Alcohol intake: never Substance/Drug Use: current Substance/Drug use frequency: few times a week Marital status: Number of children: 1 Current occupational status: disabled Current gender identity: Male Agree to transfusion: Yes Physical Exam Const: COMMON NORMALS: no acute distress, patient oriented x3 and healthy appearing HENMT: COMMON NORMALS: normocephalic and atraumatic HEAD & SCALP: normocephalic and atraumatic Neck/C-Spine: COMMON NORMALS: full ROM and supple Chest: COMMONS NORMALS: normal inspection of the chest and normal palpation of entire chest wall Resp: COMMON NORMALS: normal respiratory effort, No retractions, No use of accessory muscles and clear to auscultation bilaterally AUSCULTATION: clear to auscultation bilaterally Cardio: COMMON NORMALS: regular rate, regular rhythm and No murmurs present (Cardio) RATE: regular rate RHYTHM: regular rhythm GI: COMMON NORMALS: Normal to inspection, nondistended, normoactive bowel sounds present, Soft to palpation, non-tender and no masses PALPATION: Yes Soft to palpation Extremity: COMMON NORMALS: normal to inspection and full ROM Neuro: COMMON NORMALS: patient oriented x3, moves all extremities and no focal motor deficits Psych: COMMON NORMALS: mental status grossly normal, Normal thought process present and cooperative THOUGHT PROCESS: Normal thought process present Skin: COMMON NORMALS: no rashes or lesions noted and no wounds GENERAL SKIN EXAM: no rashes or lesions noted Course Vital Signs: Vital signs: Vital Signs Temperature 97.8 F 01/24/23 22:10 Pulse Rate 60 01/25/23 00:22 Respiratory Rate 16 01/25/23 00:22 Blood Pressure 163/92 01/25/23 00:22 Pulse Oximetry 100 01/25/23 00:22 Oxygen Delivery Me thod Nasal Cannula 01/24/23 23:37 Oxygen Flow Rate 4 01/24/23 23:37 MDM - Chest Pain Medical Decision Making Patient presents for chest pain chronic chest pain is to her troponin went down he did have hyperkalemia has improved here after insulin he receives dialysis in the morning he is stable for discharge she is to get dialyzed as scheduled he understands agrees to plan. Medical Records I reviewed the patient's medical records. Lab Data I reviewed the patient's lab results. 01/24/23 22:15 01/25/23 00:20 Radiology Impressions Chest X-Ray 01/24/23 22:16 IMPRESSION: 1. Cardiomegaly and mild interstitial edema. 2. Bibasilar atelectasis versus minimal infiltrate. Laboratory Results WBC 7.82 10^3/uL (3.29-11.43) 01/24/23 22:15 RBC 2.63 10^6/uL (3.85-5.65) L 01/24/23 22:15 Hgb 8.00 g/dL (11.27-16.99) L 01/24/23 22:15 Hct 24.9 % (37-53) L 01/24/23 22:15 MCV 94.7 fl (82-101) 01/24/23 22:15 MCH 30.4 pg (27-33) 01/24/23 22:15 MCHC 32.1 g/dL (30-55) 01/24/23 22:15 RDW 15.6 % (12.1-15.1) H 01/24/23 22:15 Plt Count 227 10^3/cmm (157-399) 01/24/23 22:15 MPV 10.2 fL (7.4-10.4) 01/24/23 22:15 Neut % (Auto) 67.4 % 01/24/23 22:15 Lymph % (Auto) 17.4 % 01/24/23 22:15 [place] % (Auto) 10.7 % 01/24/23 22:15 Eos % (Auto) 3.7 % 01/24/23 22:15 Baso % (Auto) 0.3 % 01/24/23 22:15 Neut # (Auto) 5.27 10^3/uL (1.8-7.7) 01/24/23 22:15 Lymph # (Auto) 1.4 10^3/uL (0.8-4.8) 01/24/23 22:15 [place] # (Auto) 0.8 10^3/uL (0.2-0.9) 01/24/23 22:15 Eos # (Auto) 0.3 10^3/uL (0.0-0.8) 01/24/23 22:15 Baso # (Auto) 0.0 10^3/uL (0.0-0.1) 01/24/23 22:15 Nucleated RBC % (auto) 0 % 01/24/23 22:15 Nucleated RBCs # 0.0 /100WBC 01/24/23 22:15 Sodium 134 mmol/L (136-145) L 01/24/23 22:15 Potassium 5.8 mmol/L (3.5-5.1) H 01/25/23 00:20 Chloride 92 mmol/L (98-107) L 01/24/23 22:15 Carbon Dioxide 26 mmol/L (22-29) 01/24/23 22:15 Anion Gap 22.5 (5-19) H 01/24/23 22:15 BUN 60 mg/dL (6-20) H 01/24/23 22:15 Creatinine 7.4 mg/dL (0.7-1.2) H* 01/24/23 22:15 GFR Calculation 7.6 mL/min (90-130) L 01/24/23 22:15 Glucose 91 mg/dL (65-115) 01/24/23 22:15 Calculated Osmolality 294 mOsm/kg (285-295) 01/24/23 22:15 Calcium 9.6 mg/dL (8.5-10.5) 01/24/23 22:15 Total Bilirubin 0.4 mg/dL (0.15-1.2) 01/24/23 22:15 AST 13 U/L (0-40) 01/24/23 22:15 ALT 8 U/L (0-41) 01/24/23 22:15 Alkaline Phosphatase 5 U/L (40-130) L 01/24/23 22:15 Troponin T Baseline 276 ng/L (0-15) H* 01/24/23 22:15 Troponin T 120 Minute 251.6 ng/L (0-15) H 01/25/23 00:20 Delta Troponin T -24.4 ABS# (0-10) L 01/25/23 00:20 Total Protein 6.2 g/dL (6.6-8.7) L 01/24/23 22:15 Albumin 0.2 g/dL (3.5-5.2) L 01/24/23 22:15 Globulin 6.0 g/dL (1.3-4.6) H 01/24/23 22:15 Discharge Plan Discharge Patient Disposition: Home Clinical Impression: Chest pain, Hypertension, Hyperkalemia Condition: Stable Prescriptions: No Action cholecalciferol (vitamin D3) 125 mcg (5,000 unit) capsule 125 mcg PO DAILY cinacalcet 30 mg tablet 30 mg PO DAILY nitroglycerin 0.4 mg Tablet, Sublingual 0.4 mg sublingual Q5M PRN (Reason: Chest Pain) 30 Days Qty: 30 0RF metoprolol tartrate 50 mg tablet 50 mg PO BID@0900,2100 30 Days Qty: 60 0RF clopidogrel 75 mg Tablet 75 mg PO DAILY 30 Days Qty: 30 0RF isosorbide mononitrate 60 mg tablet extended release 24 hr 30 mg PO DAILY 30 Days Qty: 15 0RF clonidine HCl 0.2 mg tablet 0.1 mg PO BID 30 Days Qty: 60 4RF levothyroxine 75 mcg tablet 75 mcg PO DAILY 30 Days Qty: 60 0RF hydralazine 50 mg tablet 50 mg PO TID 30 Days Qty: 90 0RF Eliquis 5 mg tablet 5 mg PO BID 30 Days Qty: 60 0RF lisinopril 40 mg tablet 40 mg PO DAILY 30 Days Qty: 30 0RF hydroxyzine HCl 50 mg tablet 50 mg PO .BEDTIME hydroxyzine HCl 25 mg tablet 25 mg PO QID PRN (Reason: Itching) amiodarone 400 mg tablet 200 mg PO DAILY 30 Days Qty: 60 0RF Auryxia 210 mg iron tablet 2 tab PO TID RenaPlex-D 800 mcg-12.5 mg -2,000 unit tablet 1 tab PO DAILY Lokelma 5 gram powder in packet 5 g PO DAILY Qty: 11 0RF Discharge Orders: Discharge ED (Routine); Ordered 01/25/23 Ordered By: Ghada Fontanez Referrals: Randolph Ortiz MD [Primary Care Provider] - Discharge Diet: Advance as tolerated Discharge Activity: Resume usual activity Patient Instructions: Chest Pain (ED), Hyperkalemia (ED) Coding Level of Care Code ED Combiner for Chg Phoebe
[2023-01-24 22:30] LABS: Basophils % 0.3 %; Eosinophils # 0.3 10^3/uL (0.0-0.8); Eosinophils % 3.7 %; Hematocrit 24.9 % (37-53); Lymphocytes # 1.4 10^3/uL (0.8-4.8); Lymphocytes % 17.4 %; Mean Corpuscular HGB Conc 32.1 g/dL (30-55); Mean Corpuscular Hemoglobin 30.4 pg (27-33); Mean Corpuscular Volume 94.7 fl (82-101); Mean Platelet Volume 10.2 fL (7.4-10.4); Monocytes # 0.8 10^3/uL (0.2-0.9); Monocytes % 10.7 %; Neutrophils # 5.27 10^3/uL (1.8-7.7); Neutrophils % 67.4 %; Nucleated Red Blood Cells % 0 %; Platelet Count 227 10^3/cmm (157-399); Red Blood Count 2.63 10^6/uL (3.85-5.65); Red Cell Distribution Width 15.6 % (12.1-15.1); White Blood Count 7.82 10^3/uL (3.29-11.43)
[2023-01-24 22:45] LABS: Albumin Level 0.2 g/dL (3.5-5.2); Alkaline Phosphatase 5 U/L (40-130); Aspartate Amino Transferase 13 U/L (0-40); Blood Urea Nitrogen 60 mg/dL (6-20); Calcium 9.6 mg/dL (8.5-10.5); Carbon Dioxide 26 mmol/L (22-29); Glucose 91 mg/dL (65-115); Total Bilirubin 0.4 mg/dL (0.15-1.2); Total Protein 6.2 g/dL (6.6-8.7)
[2023-01-24 22:49] LABS: Troponin(5th) Baseline 276 ng/L (0-15)
[2023-01-24 22:50] LABS: Anion Gap 22.5 (5-19); Chloride 92 mmol/L (98-107); Sodium 134 mmol/L (136-145)
[2023-01-24 22:51] VITALS: BP 145/74; PULSE 57; RESP 19; O2SAT 97
[2023-01-24 22:58] LABS: Alanine Aminotransferase 8 U/L (0-41); Glomerular Filtration Rate 7.6 mL/min (90-130)
[2023-01-24 23:02] LABS: Osmolality Calculated 294 mOsm/kg (285-295); Potassium 6.5 mmol/L (3.5-5.1)
[2023-01-24] MEDS: dextrose 50% syringe 50 mL IVP ×2 (23:12→23:16)
[2023-01-24] MEDS: insulin regular-human 100 units/1 mL 10 UNIT IVP (23:16)
[2023-01-24 23:37] VITALS: BP 136/69; PULSE 63; RESP 23; O2SAT 97
[2023-01-25 00:22] VITALS: BP 163/92; PULSE 60; RESP 16; O2SAT 100
--- NOTE | 2023-01-25 00:35 | ECG_ITS ---
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 Measurements Intervals [place] Rate: 67 P: 48 WA: 162 QRS: -38 QRSD: 105 T: 40 QT: 420 QTc: 446 Interpretive Statements SINUS RHYTHM LEFT AXIS DEVIATION [QRS AXIS < -30] Compared to ECG 01/24/2023 22:10:40 Sinus bradycardia no longer present Electronically Signed On 01-25-2023 22:33:51 CDT by Saurabh Fitzpatrick M.D. [id number]
--- NOTE | 2023-01-25 00:38 | PC.NURSE ---
RN into room after pt was heard yelling help. Pt is diaphoretic and stating that it is hot. BG of 84. MD notified. Pt given orange juice and nicole crackers. After eating these, pt stated that he began to feel better. Will continue to monitor.
[2023-01-25 00:51] LABS: Potassium 5.8 mmol/L (3.5-5.1)
[2023-01-25 00:52] LABS: Troponin 5 2HR 251.6 ng/L (0-15); Troponin 5 2HR Delta -24.4 ABS# (0-10)
[2023-01-25 01:31] VITALS: BP 161/66; PULSE 62; RESP 20; O2SAT 95
[2023-01-25 02:32] LABS: Glucose Point of Care 110 mg/dL (70-110)
[2023-01-25 11:36] LABS: Glucose Point of Care 84 mg/dL (70-110)
[2023-01-25 11:36] LABS: Glucose Point of Care 196 mg/dL (70-110)
[2023-01-25 11:36] LABS: Glucose Point of Care 91 mg/dL (70-110)
[2023-01-25 11:36] LABS: Glucose Point of Care 92 mg/dL (70-110)
== END 2023-01-25 01:33 | disposition home or self-care (01) ==
PROVIDERS: Emergency Provider Emergency Medicine; PCP Family Medicine
DX: R07.9 Chest pain, unspecified (principal); I10 Essential (primary) hypertension; E87.5 Hyperkalemia; Z79.82 Long term (current) use of aspirin; Z79.02 Long term (current) use of antithrombotics/antiplatelets; F17.210 Nicotine dependence, cigarettes, uncomplicated; I12.0 Hypertensive chronic kidney disease with stage 5 chronic kidney disease or end stage renal disease; N18.6 End stage renal disease; Z99.2 Dependence on renal dialysis; Z86.73 Personal history of transient ischemic attack (TIA), and cerebral infarction without residual deficits
CPT/HCPCS: 36415; 36416; 71045; 80053; 82962; 84132; 84484; 85025; 93005; 96374; 96375; 99285; J1815

== ENCOUNTER 2023-01-26 10:36 | Day surgery (SDC) | payer MEDICARE, MEDICAID, SELFPAY ==
[2023-01-22 11:43] VITALS: BMI 28.1
[2023-01-26 10:48] VITALS: BP 172/76; PULSE 65; RESP 17; TEMP 36.7; O2SAT 92
--- NOTE | 2023-01-26 12:00 | US_ITS ---
WS: [id number] Abdominal ultrasound, limited. History: Evaluate for ascites. Comparison: None. All 4 quadrants are imaged by ultrasound to evaluate for ascites. There is a small amount of ascites in all 4 quadrants. The amount of ascites is increased since 01/19/2023. The amount of ascites is stil l low. No paracentesis will be performed today due to the low volume of ascites. IMPRESSION: Low volume ascites. Not the typical amount the patient normally presents with. We will delay paracent esis.
== END 2023-01-26 11:16 | disposition home or self-care (01) ==
LOC: GILAB 10:37
PROVIDERS: Radiology Diagnostic Radiology; PCP Family Medicine; Visit Provider Internal Medicine Nephrology
DX: R18.8 Other ascites (principal)
CPT/HCPCS: 76705

== ENCOUNTER 2023-01-28 01:47 | Emergency (ER) | payer MEDICARE, MEDICAID, SELFPAY ==
--- NOTE | 2023-01-28 01:48 | ECG_ITS ---
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 Measurements Intervals [place] Rate: 92 P: 0 CT: 0 QRS: 98 QRSD: 102 T: 55 QT: 386 QTc: 478 Interpretive Statements ATRIAL FIBRILLATION BORDERLINE RIGHT AXIS DEVIATION [QRS AXIS > 90] MODERATE ST DEPRESSION [0.05+ mV ST DEPRESSION] Compared to ECG 01/25/2023 00:35:55 ST (T wave) deviation now present Sinus rhythm no longer present Left-axis deviation no longer present Electronically Signed On 01-28-2023 21:19:37 CDT by China Wheat M.D. [id number]
[2023-01-28 01:49] VITALS: BP 170/116; PULSE 99; RESP 18; TEMP 36.4; O2SAT 98; BMI 28.1
--- NOTE | 2023-01-28 01:52 | XRR_ITS ---
PROCEDURE INFORMATION: Exam: XR Chest Exam date and time: 01/28/2023 2:01 AM Age: 57 years old Clinical indication: Chest wall pain; Additional info: Chest pain TECHNIQUE: Imaging protocol: Radiologic exam of the chest. Views: 1 view. COMPARISON: CR (CHEST, ) 01/24/2023 10:28 PM FINDINGS: Lungs: Fine increased reticular interstitial pulmonary changes are noted similar to comparison. Lung volumes are reduced. No focal pulmonary consolidation. Pleural spaces: Unremarkable. No pleural effusion. No pneumothorax. Heart/Mediastinum: Cardiac enlargement. Bones/joints: Unremarkable. XR/XR chest 1V portable [id number] IMPRESSION: 1. No change in exam of the chest. 2. Nonspecific interstitial pulmonary changes are present.
[2023-01-28 02:02] LABS: Basophils % 0.3 %; Eosinophils # 0.2 10^3/uL (0.0-0.8); Eosinophils % 2.6 %; Hematocrit 26.8 % (37-53); Lymphocytes # 1.1 10^3/uL (0.8-4.8); Lymphocytes % 17.5 %; Mean Corpuscular HGB Conc 32.5 g/dL (30-55); Mean Corpuscular Hemoglobin 30.5 pg (27-33); Mean Platelet Volume 9.9 fL (7.4-10.4); Monocytes # 0.7 10^3/uL (0.2-0.9); Monocytes % 11.4 %; Neutrophils # 4.15 10^3/uL (1.8-7.7); Neutrophils % 67.7 %; Nucleated Red Blood Cells % 0 %; Platelet Count 248 10^3/cmm (157-399); Red Blood Count 2.85 10^6/uL (3.85-5.65); Red Cell Distribution Width 15.9 % (12.1-15.1); White Blood Count 6.13 10^3/uL (3.29-11.43)
--- NOTE | 2023-01-28 02:02 | W.ED.CHESTPA ---
HPI - Chest Pain General: Chief Complaint: Chest Pain Stated Complaint: Chest Pain Time Seen by Provider: 01/28/23 01:49 Source: patient Mode of arrival: EMS Limitations: no limitations History of Present Illness: Patient presents emergency department today brought by EMS for evaluation treatment of recurrent chest pains. Patient has a long history of end-stage renal disease with dialysis, hyperkalemia, and coronary artery disease. Patient was brought into the emergency department on 12/26 in respiratory failure and cardiac arrest. Patient was resuscitated and taken to [facility] where he received 3 stents. Patient is continued to have nearly consistent chest pains since having his stents placed and has been seen here in this emergency department multiple times since that hospitalization. Patient reports similar chest pains as previously noted. He did have dialysis today and states he slept through most of it. He states he feels more acutely fatigued. He states he has only taken his clonidine and an antibiotic today stating his other medications make his stomach upset and feel nauseated. Patient did receive 4 aspirin in route as well as a nitro. He states after the administration of nitro chest pains significantly improved if not completely resolved. Review of Systems General: Reports: 10 or more systems reviewed and unremarkable except in HPI and below PFSH ED PFSH: Medical History Acute hyperkalemia Altered mental status Anemia in chronic kidney disease Ascites Nephrogenic ascites Ascites gets regular paracentesis Bilateral hydronephrosis Chronic anemia CVA (cerebral vascular accident) Dilated aortic root End stage renal disease on dialysis GERD (gastroesophageal reflux disease) Gout History of stroke Hypertension Hypoglycemia Hypothyroidism Incomplete bladder emptying Major depressive disorder Malaise Neuropathy, lumbosacral (radicular) Polycystic kidney disease Right bundle branch block (RBBB) on electrocardiogram (ECG) Tobacco use disorder Surgical History AV fistula left arm History of colonoscopy 2019 at [facility] History of surgical procedure Peritoneal dialysis catheter placement by Dr. Kamara 2016 S/P hemodialysis catheter insertion (03/13/20) 23cm long exchanged right IJ Removed on 06/11/2020 Family History Mother Chronic kidney disease (CKD) Stroke Father Cancer lung Brother Hypertension Denies family history of Diabetes CAD (coronary artery disease) Clotting disorder Dementia Hyperlipidemia Psychiatric illness Anesthesia complication Bleeding disorder Lung disease Social History Smoking and tobacco status: current every day smoker cigarettes Packs smoked per day: 1 [ Other cigarette details: Half a pack per day for last 20-30 years] Alcohol intake: never Substance/Drug Use: current Substance/Drug use frequency: few times a week Marital status: Number of children: 1 Current occupational status: disabled Current gender identity: Male Agree to transfusion: Yes Physical Exam Const: COMMON NORMALS: no acute distress, patient oriented x3 and alert HENMT: COMMON NORMALS: normocephalic, atraumatic, hearing grossly normal bilaterally and moist oral mucous membranes HEAD & SCALP: normocephalic and atraumatic Eye: COMMON NORMALS: Equal, round and reactive pupils present, EOMs intact bilaterally and conjunctivae normal CONJUNCTIVA: Yes conjunctivae normal PUPIL: Yes Equal, round and reactive pupils present Neck/C-Spine: COMMON NORMALS: full ROM and no JVD Lymph: LYMPHATIC: no lymphadenopathy noted Resp: COMMON NORMALS: normal respiratory effort, No retractions, No use of accessory muscles and clear to auscultation bilaterally AUSCULTATION: clear to auscultation bilaterally OTHER: Patient chronically on nasal cannula Cardio: COMMON NORMALS: no JVD; negative for regular rhythm RHYTHM: abnormal rhythm GI: OTHER: Abdomen soft. Nontender. : COMMON NORMALS: Yes no CVA tenderness BLADDER/KIDNEY EXAM: Yes no CVA tenderness Back/Pelvis: COMMON NORMALS: no CVA tenderness, no thoracic nor lumbar tenderness and thoraco-lumbar ROM normal Extremity: COMMON NORMALS: normal to inspection, full ROM and capillary refill normal Neuro: COMMON NORMALS: patient oriented x3 SENSORIUM/ORIENTATION: Yes alert Psych: COMMON NORMALS: mental status grossly normal, Normal thought process present, cooperative, normal affect and activity/motor behavior normal THOUGHT PROCESS: Normal thought process present Skin: COMMON NORMALS: no rashes or lesions noted and no wounds GENERAL SKIN EXAM: no rashes or lesions noted Course Vital Signs: Vital signs: Vital Signs Temperature 97.5 F L 01/28/23 01:49 Pulse Rate 101 H 01/28/23 02:30 Respiratory Rate 24 H 01/28/23 02:30 Blood Pressure 166/103 01/28/23 02:30 Pulse Oximetry 99 01/28/23 02:30 Oxygen Delivery Me thod Nasal Cannula 01/28/23 01:49 Oxygen Flow Rate 3 01/28/23 01:49 MDM - Chest Pain Medical Decision Making Patient presents to the emergency department brought by EMS for complaints of recurrent issues with chest pain. Patient is approximately 1 month status post stent placement after acute cardiac arrest. Patient did undergo dialysis. He reports he is pain-free upon arrival to the ER after nitro administration. Lab work was checked and appears to be slightly improved overall from his general baseline. Patient has significantly elevated troponins which were called and is a critical by the lab however, his baseline troponin is slightly lower than his previous troponins approximately 5 days ago. I discussed all aspects of the patient's evaluation with Dr. Mcneill. Also, Dr. Guillaume with cardiology was in the department and I was able to discuss the case with him. He indicated that even though the patient was not taking his medications, EKG and evaluation showed no signs of acute clotting off of his stents at this time. As patient is currently pain-free and lab work appears stable for his current and chronic condition, Dr. Mcneill felt comfortable letting the patient discharge. I discussed all this with the patient who is also in agreement to feeling comfortable to discharge home. I encouraged him to take his medications as prescribed indicating to him that his INR is subtherapeutic for his history of A-fib and recent stent placement. Also, patient's blood pressure was elevated as he has not been taking his blood pressure medication. While we did treat him here in the emergency department, he needs to continue taking his blood pressure medications. Patient was given strict return precautions for any acute worsening. Patient verbalized understanding and agreement to treatment plan. Differential Diagnosis Likely acute myocardial infarction (Hyperkalemia, anemia, musculoskeletal pain); Unlikely acute massive pulmonary embolism or cardiac arrest Lab Data 01/28/23 01:25 01/28/23 01:25 Radiology Impressions Chest X-Ray 01/28/23 01:52 IMPRESSION: 1. No change in exam of the chest. 2. Nonspecific interstitial pulmonary changes are present. Laboratory Results WBC 6.13 10^3/uL (3.29-11.43) 01/28/23 01:25 RBC 2.85 10^6/uL (3.85-5.65) L 01/28/23 01:25 Hgb 8.70 g/dL (11.27-16.99) L 01/28/23 01:25 Hct 26.8 % (37-53) L 01/28/23 01:25 MCV 94.0 fl (82-101) 01/28/23 01:25 MCH 30.5 pg (27-33) 01/28/23 01:25 MCHC 32.5 g/dL (30-55) 01/28/23 01:25 RDW 15.9 % (12.1-15.1) H 01/28/23 01:25 Plt Count 248 10^3/cmm (157-399) 01/28/23 01:25 MPV 9.9 fL (7.4-10.4) 01/28/23 01:25 Neut % (Auto) 67.7 % 01/28/23 01:25 Lymph % (Auto) 17.5 % 01/28/23 01:25 [place] % (Auto) 11.4 % 01/28/23 01:25 Eos % (Auto) 2.6 % 01/28/23 01:25 Baso % (Auto) 0.3 % 01/28/23 01:25 Neut # (Auto) 4.15 10^3/uL (1.8-7.7) 01/28/23 01:25 Lymph # (Auto) 1.1 10^3/uL (0.8-4.8) 01/28/23 01:25 Mason # (Auto) 0.7 10^3/uL (0.2-0.9) 01/28/23 01:25 Eos # (Auto) 0.2 10^3/uL (0.0-0.8) 01/28/23 01:25 Baso # (Auto) 0.0 10^3/uL (0.0-0.1) 01/28/23 01:25 Nucleated RBC % (auto) 0 % 01/28/23 01:25 Nucleated RBCs # 0.0 /100WBC 01/28/23 01:25 PT 14.00 SECONDS (12.1-14.9) 01/28/23 01:25 INR 1.05 (0.8-1.2) 01/28/23 01:25 Sodium 137 mmol/L (136-145) 01/28/23 01:25 Potassium 5.3 mmol/L (3.5-5.1) H 01/28/23 01:25 Chloride 95 mmol/L (98-107) L 01/28/23 01:25 Carbon Dioxide 31 mmol/L (22-29) H 01/28/23 01:25 Anion Gap 16.3 (5-19) 01/28/23 01:25 BUN 17 mg/dL (6-20) 01/28/23 01:25 Creatinine 3.7 mg/dL (0.7-1.2) H 01/28/23 01:25 GFR Calculation 17.0 mL/min (90-130) L 01/28/23 01:25 Glucose 80 mg/dL (65-115) 01/28/23 01:25 Calculated Osmolality 285 mOsm/kg (285-295) 01/28/23 01:25 Calcium 10.0 mg/dL (8.5-10.5) 01/28/23 01:25 Total Bilirubin 0.4 mg/dL (0.15-1.2) 01/28/23 01:25 AST 17 U/L (0-40) 01/28/23 01:25 ALT 7 U/L (0-41) 01/28/23 01:25 Alkaline Phosphatase 115 U/L (40-130) 01/28/23 01:25 Troponin T Baseline 263 ng/L (0-15) H* 01/28/23 01:25 Total Protein 5.5 g/dL (6.6-8.7) L 01/28/23 01:25 Albumin 3.3 g/dL (3.5-5.2) L 01/28/23 01:25 Globulin 2.2 g/dL (1.3-4.6) 01/28/23 01:25 Discharge Plan Discharge Patient Disposition: Home Clinical Impression: End stage renal disease on dialysis, Hypertension, Chest pain Prescriptions: No Action cholecalciferol (vitamin D3) 125 mcg (5,000 unit) capsule 125 mcg PO DAILY cinacalcet 30 mg tablet 30 mg PO DAILY nitroglycerin 0.4 mg Tablet, Sublingual 0.4 mg sublingual Q5M PRN (Reason: Chest Pain) 30 Days Qty: 30 0RF metoprolol tartrate 50 mg tablet 50 mg PO BID@0900,2100 30 Days Qty: 60 0RF clopidogrel 75 mg Tablet 75 mg PO DAILY 30 Days Qty: 30 0RF isosorbide mononitrate 60 mg tablet extended release 24 hr 30 mg PO DAILY 30 Days Qty: 15 0RF clonidine HCl 0.2 mg tablet 0.1 mg PO BID 30 Days Qty: 60 4RF levothyroxine 75 mcg tablet 75 mcg PO DAILY 30 Days Qty: 60 0RF hydralazine 50 mg tablet 50 mg PO TID 30 Days Qty: 90 0RF Eliquis 5 mg tablet 5 mg PO BID 30 Days Qty: 60 0RF lisinopril 40 mg tablet 40 mg PO DAILY 30 Days Qty: 30 0RF hydroxyzine HCl 50 mg tablet 50 mg PO .BEDTIME hydroxyzine HCl 25 mg tablet 25 mg PO QID PRN (Reason: Itching) amiodarone 400 mg tablet 200 mg PO DAILY 30 Days Qty: 60 0RF Auryxia 210 mg iron tablet 2 tab PO TID RenaPlex-D 800 mcg-12.5 mg -2,000 unit tablet 1 tab PO DAILY Lokelma 5 gram powder in packet 5 g PO DAILY Qty: 11 0RF Discharge Orders: Discharge ED (Routine); Ordered 01/28/23 Ordered By: Samantha Enriquez Referrals: Randolph Ortiz MD [Primary Care Provider] - Discharge Diet: Usual diet Discharge Activity: Increase activity as tolerated Patient Instructions: Chest Pain (ED) Activity Restrictions/Additional Instructions: EKG indicates your baseline A-fib without any other acute findings. Lab work is also at your chronic baseline with several aspects of your lab work slightly improved from a few days ago. Given that you have not been able to tolerate your medications-including your anticoagulants, we did check your coagulation levels which indicate you are currently subtherapeutic. Given that you have A-fib and recently had stents, it does put you at risk of clotting but, I was able to speak with the lubrication equipment servicer zeb greenberg who looked over your EKG and indicated no signs of any acute injury to the heart or the stents at this time. However, we very important that you try and start back on your chronic medications as your blood pressure was elevated today, heart rate was increased, and clotting speed is subtherapeutic. Continue to monitor your symptoms at home. We recommend an appointment with your lubrication equipment servicer as soon as possible for ER follow-up. Return for any acute worsening. Coding Level of Care Code ED Tape Recorder Repairer for Eric Sandhu
[2023-01-28 02:11] LABS: INR 1.05 (0.8-1.2)
[2023-01-28 02:23] LABS: Alanine Aminotransferase 7 U/L (0-41); Albumin Level 3.3 g/dL (3.5-5.2); Alkaline Phosphatase 115 U/L (40-130); Blood Urea Nitrogen 17 mg/dL (6-20); Carbon Dioxide 31 mmol/L (22-29); Chloride 95 mmol/L (98-107); Globulin 2.2 g/dL (1.3-4.6); Glucose 80 mg/dL (65-115); Osmolality Calculated 285 mOsm/kg (285-295); Sodium 137 mmol/L (136-145); Total Bilirubin 0.4 mg/dL (0.15-1.2); Total Protein 5.5 g/dL (6.6-8.7)
[2023-01-28 02:25] LABS: Anion Gap 16.3 (5-19); Aspartate Amino Transferase 17 U/L (0-40); Potassium 5.3 mmol/L (3.5-5.1)
[2023-01-28 02:27] LABS: Troponin(5th) Baseline 263 ng/L (0-15)
[2023-01-28 02:30] VITALS: BP 166/103; PULSE 101; RESP 24; O2SAT 99
[2023-01-28] MEDS: metoprolol tartrate 1 mg/1 mL SDV 5 mL 5 MG IVP (02:32)
[2023-01-28 03:01] VITALS: BP 163/103; PULSE 93; RESP 16; O2SAT 100
== END 2023-01-28 03:05 | disposition home or self-care (01) ==
PROVIDERS: Emergency Medicine; Emergency Provider Physician Assistant; PCP Family Medicine
DX: R07.9 Chest pain, unspecified (principal); I12.0 Hypertensive chronic kidney disease with stage 5 chronic kidney disease or end stage renal disease; N18.6 End stage renal disease; Z99.2 Dependence on renal dialysis; Z86.73 Personal history of transient ischemic attack (TIA), and cerebral infarction without residual deficits; F17.210 Nicotine dependence, cigarettes, uncomplicated; Z79.01 Long term (current) use of anticoagulants; Z79.02 Long term (current) use of antithrombotics/antiplatelets
CPT/HCPCS: 71045; 80053; 84484; 85025; 85610; 93005; 96374; 99285; J3490

== ENCOUNTER 2023-01-30 13:17 | Emergency (ER) | payer MEDICARE, MEDICAID, SELFPAY ==
[2023-01-30 13:24] VITALS: BP 214/96; PULSE 78; RESP 18; TEMP 37.3; O2SAT 100; BMI 28.1
--- NOTE | 2023-01-30 13:51 | W.ED.ABDPA2 ---
HPI - Abdominal Pain General: Chief Complaint: Abdominal Pain Stated Complaint: bloated stomach Time Seen by Provider: 01/30/23 13:31 History of Present Illness: 57-year-old male presents to the emergency department with chief complaint of ongoing abdominal distention. Patient has a long complicated history. He recently had 3 stents placed in his heart and was hospitalized. He is a dialysis patient with a left upper extremity AV fistula; he last dialyzed yesterday. Patient chief complaint today is a feeling like his abdomen is still distended. He describes this has been going on for weeks now. After chart review, the patient has known ascites. He has had 2 abdominal ultrasounds showing some increasing ascites. He has a paracentesis scheduled on Wednesday. Patient denies any fever. He denies any focal abdominal pain. He has chronic hypoxic respiratory failure and continues to smoke. He uses 4 L of oxygen at all times. He does not endorse any shortness of breath more than usual unless he lays flat on his back. He has not had any fever chills or rigors. He had a normal bowel movement today. He does have a decreased appetite and occasionally has some nausea but no vomiting, black stools, hematochezia, mucus in his stools or other changes. He makes very little urine so diuresis does not work for him. He also has chronic hypertension and is on multiple blood pressure medications. Patient reports he is only taking clonidine today. He has a history of noncompliance but states that some of the other medications make him feel nauseated. Associated Symptoms: Denies chills, diarrhea, dysuria, fever(s), syncope and vomiting Review of Systems General: Reports: 10 or more systems reviewed and unremarkable except in HPI and below Narrative: Patient endorses chronic fatigue, generalized abdominal discomfort with nausea at times, orthopnea. Const: Reports: other; Denies: fever(s), chills or body aches Eyes: Denies: change in vision ENMT: Denies: throat pain Card: Denies: chest pain, edema or syncope Resp: Denies: dyspnea or productive cough GI: Denies: vomiting or diarrhea : Denies: flank pain or dysuria Musc: Denies: neck pain, back pain or extremity pain Skin/Breast: Denies: rash or erythema Neuro: Denies: headache(s), numbness in extremities, weakness in extremities, lack of coordination or difficulty walking [facility] ED PFS: Medical History Acute hyperkalemia Altered mental status Anemia in chronic kidney disease Ascites Nephrogenic ascites Ascites gets regular paracentesis Bilateral hydronephrosis Chronic anemia CVA (cerebral vascular accident) Dilated aortic root End stage renal disease on dialysis GERD (gastroesophageal reflux disease) Gout History of stroke Hypertension Hypoglycemia Hypothyroidism Incomplete bladder emptying Major depressive disorder Malaise Neuropathy, lumbosacral (radicular) Polycystic kidney disease Right bundle branch block (RBBB) on electrocardiogram (ECG) Tobacco use disorder Surgical History AV fistula left arm History of colonoscopy 2019 at [facility] History of surgical procedure Peritoneal dialysis catheter placement by Dr. Kamara 2015 S/P hemodialysis catheter insertion (03/13/20) 23cm long exchanged right IJ Removed on 06/11/2020 Family History Mother Chronic kidney disease (CKD) Stroke Father Cancer lung Brother Hypertension Denies family history of Diabetes CAD (coronary artery disease) Clotting disorder Dementia Hyperlipidemia Psychiatric illness Anesthesia complication Bleeding disorder Lung disease Social History Smoking and tobacco status: current every day smoker cigarettes Packs smoked per day: 1 [ Other cigarette details: Half a pack per day for last 20-30 years] Alcohol intake: never Substance/Drug Use: current Substance/Drug use frequency: few times a week Marital status: Number of children: 1 Current occupational status: disabled Current gender identity: Male Agree to transfusion: Yes Physical Exam Narrative: EXAM NARRATIVE: Patient appears older than his stated age. He is lying on the left lateral decubitus position which offloads his abdomen to the side making it easier for him to breathe and also makes him feel less distended. He does not have any jaundice although his skin tone does not look healthy. He is alert and oriented but is short with his responses. His abdomen is soft and distended. He does have a small fluid wave. There is no peritoneal signs nor any tenderness or guarding. When I laid him on his back to do his abdominal exam he did develop tachypnea. After the abdominal exam would put him back in the left lateral decubitus and he improved. Const: COMMON NORMALS: alert EXAM LIMITATIONS: no altered mental status HENMT: COMMON NORMALS: normocephalic, atraumatic and external ears normal HEAD & SCALP: normocephalic and atraumatic EXTERNAL EAR: Yes external ears normal MOUTH: no muffled voice Eye: COMMON NORMALS: EOMs intact bilaterally, conjunctivae normal and no scleral icterus CONJUNCTIVA: Yes conjunctivae normal Neck/C-Spine: COMMON NORMALS: no JVD GENERAL: Yes normal visual inspection and Yes trachea midline Resp: COMMON NORMALS: normal respiratory effort and No use of accessory muscles Cardio: COMMON NORMALS: no JVD, regular rate and regular rhythm RATE: regular rate RHYTHM: regular rhythm GI: COMMON NORMALS: Soft to palpation and non-tender PALPATION: Yes Soft to palpation and No Guarding due to palpation present (GI) Extremity: COMMON NORMALS: normal to inspection Neuro: COMMON NORMALS: moves all extremities, no focal motor deficits and no sensory deficits noted SENSORIUM/ORIENTATION: Yes alert SPEECH: speech normal Psych: COMMON NORMALS: mental status grossly normal, Normal thought process present, cooperative, normal affect and speech normal SPEECH: Yes normal speech THOUGHT PROCESS: Normal thought process present Skin: COMMON NORMALS: no rashes or lesions noted and turgor normal GENERAL SKIN EXAM: no rashes or lesions noted and turgor normal Course Vital Signs: Vital signs: Vital Signs Temperature 99.2 F 01/30/23 13:24 Pulse Rate 78 01/30/23 13:24 Respiratory Rate 18 01/30/23 13:24 Blood Pressure 214/96 01/30/23 13:24 Pulse Oximetry 100 01/30/23 13:24 Oxygen Delivery Me thod Nasal Cannula 01/30/23 13:24 Oxygen Flow Rate 4 01/30/23 13:24 MDM - Abdominal Pain Medical Decision Making 57-year-old male with a history of multiple comorbidities who has ascites. The patient's abdomen is distended with a fluid wave but it is soft and nontender with no guarding. He does have some orthopnea and the girth and weight of his abdomen is certainly causing him symptoms. However, he has a paracentesis scheduled on Wednesday. He does not have any criteria for emergent paracentesis. Low suspicion for SBP. Patient also has elevated blood pressure without any signs or symptoms of hypertensive emergency. Unfortunately, he is only intermittently compliant with his medications. Nausea is one barrier. I have prescribed him some Zofran to help with this. I did review the patient's labs from 2 days ago. Additionally, patient had dialysis yesterday. I reviewed abdominal ultrasound from the fifth as well. The plan is to discharge the patient with Zofran. Encouraged him to take his medications. Encouraged him to lay on his side. And encouraged him to follow-up on Wednesday with his normally scheduled paracentesis. I do not suspect an acute abdomen or other medical emergencies at this time. Discharge Plan Discharge Patient Disposition: Home Clinical Impression: Abdominal ascites, Chronic hypertension Condition: Stable Prescriptions: New ondansetron 4 mg tablet,disintegrating 4 mg PO Q8H PRN (Reason: nausea and vomiting) Qty: 14 0RF No Action cholecalciferol (vitamin D3) 125 mcg (5,000 unit) capsule 125 mcg PO DAILY cinacalcet 30 mg tablet 30 mg PO DAILY isosorbide mononitrate 60 mg tablet extended release 24 hr 30 mg PO DAILY 30 Days Qty: 15 0RF clonidine HCl 0.2 mg tablet 0.1 mg PO BID 30 Days Qty: 60 4RF levothyroxine 75 mcg tablet 75 mcg PO DAILY 30 Days Qty: 60 0RF hydralazine 50 mg tablet 50 mg PO TID 30 Days Qty: 90 0RF Eliquis 5 mg tablet 5 mg PO BID 30 Days Qty: 60 0RF lisinopril 40 mg tablet 40 mg PO DAILY 30 Days Qty: 30 0RF hydroxyzine HCl 50 mg tablet 50 mg PO .BEDTIME hydroxyzine HCl 25 mg tablet 25 mg PO QID PRN (Reason: Itching) amiodarone 400 mg tablet 200 mg PO DAILY 30 Days Qty: 60 0RF Auryxia 210 mg iron tablet 2 tab PO TID RenaPlex-D 800 mcg-12.5 mg -2,000 unit tablet 1 tab PO DAILY Lokelma 5 gram powder in packet 5 g PO DAILY Qty: 11 0RF Discharge Orders: Discharge ED (Routine); Ordered 01/30/23 Ordered By: Berto Mesa Referrals: Randolph Ortiz MD [Primary Care Provider] - Discharge Diet: Cardiac Discharge Activity: Increase activity as tolerated Patient Instructions: Ascites (ED), Opioid Safety, Pain Management Activity Restrictions/Additional Instructions: Please keep your scheduled appointment on Wednesday to have paracentesis. Ascites is a condition that causes a chronic recurrent buildup of fluid in the abdominal cavity. It can cause difficulties with breathing and make you feel quite bloated or nauseated. However, due to the chronic nature, emergency paracentesis is only performed when there is an infection or there is a decompensation of the patient requiring that the fluid be removed immediately. These requirements were not present today. Please keep your follow-up on Wednesday. If you develop a fever or your oxygen levels are below 90% (despite using home oxygen, laying on your side, and going to dialysis) then you need to return to the emergency department for evaluation. You also have chronic high blood pressure. Please use your medications including lisinopril, hydralazine, and clonidine to control your pressure. Nausea medicine has been prescribed for you to take prior to eating or drinking or taking your pills. 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
[2023-01-30 14:12] VITALS: BP 214/96; PULSE 78; RESP 18; TEMP 37.3; O2SAT 100
== END 2023-01-30 14:13 | disposition home or self-care (01) ==
PROVIDERS: Emergency Provider Emergency Medicine; PCP Family Medicine
DX: R18.8 Other ascites (principal); Z79.01 Long term (current) use of anticoagulants; F17.210 Nicotine dependence, cigarettes, uncomplicated; I12.0 Hypertensive chronic kidney disease with stage 5 chronic kidney disease or end stage renal disease; N18.6 End stage renal disease; Z99.2 Dependence on renal dialysis
CPT/HCPCS: 99283

== ENCOUNTER 2023-02-02 10:49 | Day surgery (SDC) | payer MEDICARE, MEDICAID, SELFPAY ==
[2023-02-01 08:38] VITALS: BMI 28.1
[2023-02-02 11:01] VITALS: BP 133/74; PULSE 68; RESP 20; TEMP 36.5; O2SAT 97
--- NOTE | 2023-02-02 11:28 | US_ITS ---
WS: [id number] ULTRASOUND-GUIDED PARACENTESIS CLINICAL INFORMATION: ascites COMPARISON: None. Procedure Informed consent: The risks, benefits, and alternatives of the procedure were discussed with the lisa ent. Verbal and written consent was obtained. Timeout: A timeout was performed to confirm the correct patient, procedure, and site. Preparation: A suitable skin site was identified. The patient was prepped and draped in usual sterile fashion. Lidocaine 1% was used for local anesthesia. Catheter: 4 Danish One-step Yueh catheter. Side: LEFT lower quadrant. Fluid Volume: 3300 ml Color: Clear yellow DISPOSITION: Discarded safely. Complications: None. Patient disposition: Discharged from the department in stable condition. IMPRESSION: Uncomplicated ultrasound-guided paracentesis. Removal of 3300 cc
[2023-02-02] MEDS: albumin 75 G/300 ML BAG 60 G IV (12:06)
== END 2023-02-02 12:54 | disposition home or self-care (01) ==
LOC: GILAB 10:50
PROVIDERS: Radiology Neuroradiology; PCP Family Medicine; Visit Provider Internal Medicine Nephrology
PROC: (CPT 49082; principal; 2023-02-02 12:00)
DX: R18.8 Other ascites (principal)
CPT/HCPCS: 49083; 96365; P9046

== ENCOUNTER 2023-02-09 10:54 | Day surgery (SDC) | payer MEDICARE, MEDICAID, SELFPAY ==
[2023-02-09 11:17] VITALS: BP 111/83; PULSE 109; RESP 18; TEMP 36.2; O2SAT 98
--- NOTE | 2023-02-09 11:18 | US_ITS ---
WS: [id number] Abdominal ultrasound, limited. History: Evaluate for ascites. Comparison: None. All 4 quadrants are imaged by ultrasound to evaluate for ascites. There is no peritoneal fluid identi fied. IMPRESSION: No peritoneal ascites.
== END 2023-02-09 12:10 | disposition home or self-care (01) ==
LOC: GILAB 10:56
PROVIDERS: PCP Family Medicine; Visit Provider Internal Medicine Nephrology
DX: R18.8 Other ascites (principal)
CPT/HCPCS: 76705

== ENCOUNTER 2023-02-14 19:17 | Emergency (ER) | payer MEDICARE, MEDICAID, SELFPAY ==
[2023-02-14] VITALS (51 sets, daily range): BP systolic 152–211; BP diastolic 87–138; PULSE 80–95; RESP 14–38; TEMP 36.7; O2SAT 91–100; BMI 28.1
--- NOTE | 2023-02-14 19:26 | XRR_ITS ---
PROCEDURE INFORMATION: Exam: XR Chest Exam date and time: 02/14/2023 7:52 PM Age: 57 years old Clinical indication: Chest pressure; Patient HX: C/O chest pain TECHNIQUE: Imaging protocol: Radiologic exam of the chest. Views: 1 view. COMPARISON: CR (CHEST, ) 01/28/2023 2:01 AM FINDINGS: Lungs: Patchy bilateral mild ground-glass airspace opacities reflecting alveolar edema and/or pneumonic infiltrates. Pleural spaces: Unremarkable. No pleural effusion. No pneumothorax. Heart/Mediastinum: Cardiomegaly. Bones/joints: Unremarkable. XR/XR chest 1V portable [id number] IMPRESSION: 1. Patchy bilateral mild ground-glass airspace opacities reflecting alveolar edema and/or pneumonic infiltrates. 2. Cardiomegaly.
--- NOTE | 2023-02-14 19:26 | ECG_ITS ---
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 Measurements Intervals Johnson Rate: 82 P: 47 MO: 149 QRS: -53 QRSD: 104 T: 5 QT: 397 QTc: 465 Interpretive Statements SINUS RHYTHM LEFT ANTERIOR FASCICULAR BLOCK [QRS AXIS <= -45, QR IN I, RS IN II] MODERATE VOLTAGE CRITERIA FOR LVH, CONSIDER NORMAL VARIANT [MEETS CRITERIA IN ONE OF: R(aVL), S(V1), R(V5), R(V5/V6)+S(V1)] Compared to ECG 01/28/2023 01:48:25 Left anterior fascicular block now present Atrial fibrillation no longer present ST (T wave) deviation no longer present Electronically Signed On 02-15-2023 16:17:13 CDT by Saurabh Fitzpatrick M.D. [id number] f
--- NOTE | 2023-02-14 19:34 | W.ED.CHESTPA ---
HPI - Chest Pain General: Chief Complaint: Chest Pain Stated Complaint: chest pain Time Seen by Provider: 02/14/23 19:21 History of Present Illness: Patient presents to the ER from EMS with complaints of chest pain. Patient states he is aching all day. Patient says he has almost all the time and this is only mildly more than any other time. Patient did call EMS I did give him 1 nitro of theirs patient already took 1 nitro of his own at home and EMS did give him 324 mg aspirin on route patient is pain-free at the current. Patient is currently on Eliquis and Plavix and is an insulin-dependent diabetic on dialysis. Review of Systems General: Reports: 10 or more systems reviewed and unremarkable except in HPI and below PFSH ED PFSH: Medical History Acute hyperkalemia Altered mental status Anemia in chronic kidney disease Ascites Nephrogenic ascites Ascites gets regular paracentesis Bilateral hydronephrosis Chronic anemia CVA (cerebral vascular accident) Dilated aortic root End stage renal disease on dialysis GERD (gastroesophageal reflux disease) Gout History of stroke Hypertension Hypoglycemia Hypothyroidism Incomplete bladder emptying Major depressive disorder Malaise Neuropathy, lumbosacral (radicular) Polycystic kidney disease Right bundle branch block (RBBB) on electrocardiogram (ECG) Tobacco use disorder Surgical History AV fistula left arm History of colonoscopy 2019 at [facility] History of surgical procedure Peritoneal dialysis catheter placement by Dr. Kamara 2015 S/P hemodialysis catheter insertion (03/13/20) 23cm long exchanged right IJ Removed on 06/11/2020 Family History Mother Chronic kidney disease (CKD) Stroke Father Cancer lung Brother Hypertension Denies family history of Diabetes CAD (coronary artery disease) Clotting disorder Dementia Hyperlipidemia Psychiatric illness Anesthesia complication Bleeding disorder Lung disease Social History Smoking and tobacco status: current every day smoker cigarettes Packs smoked per day: 1 [ Other cigarette details: Half a pack per day for last 20-30 years] Alcohol intake: never Substance/Drug Use: current Substance/Drug use frequency: few times a week Marital status: Number of children: 1 Current occupational status: disabled Current gender identity: Male Agree to transfusion: Yes Physical Exam Const: COMMON NORMALS: no acute distress, average body habitus, patient oriented x3, no limitations, healthy appearing, alert and well nourished HENMT: COMMON NORMALS: normocephalic, atraumatic, hearing grossly normal bilaterally, external ears normal, Normal external nose present and moist oral mucous membranes HEAD & SCALP: normocephalic and atraumatic NOSE: Normal external nose present EXTERNAL EAR: Yes external ears normal Eye: COMMON NORMALS: Equal, round and reactive pupils present, EOMs intact bilaterally, conjunctivae normal and no scleral icterus CONJUNCTIVA: Yes conjunctivae normal PUPIL: Yes Equal, round and reactive pupils present Neck/C-Spine: COMMON NORMALS: no JVD Chest: COMMONS NORMALS: normal inspection of the chest and normal palpation of entire chest wall Resp: COMMON NORMALS: normal respiratory effort, No retractions, No use of accessory muscles and clear to auscultation bilaterally AUSCULTATION: clear to auscultation bilaterally Cardio: COMMON NORMALS: no JVD, regular rate, regular rhythm, S1 normal heart sound present, S2 normal heart sound present, No gallops present (Cardio), No clicks present (Cardio) and No rub (Cardio) RATE: regular rate RHYTHM: regular rhythm HEART SOUNDS: S1 normal heart sound present and S2 normal heart sound present GI: COMMON NORMALS: Normal to inspection, nondistended, normoactive bowel sounds present, Soft to palpation, non-tender, No hepatosplenomegaly present and no masses PALPATION: Yes Soft to palpation and Yes No hepatosplenomegaly present : COMMON NORMALS: Yes no CVA tenderness BLADDER/KIDNEY EXAM: Yes no CVA tenderness Back/Pelvis: COMMON NORMALS: no CVA tenderness Neuro: COMMON NORMALS: patient oriented x3 SENSORIUM/ORIENTATION: Yes alert Course Vital Signs: Vital signs: Vital Signs Temperature 98.1 F 02/14/23 19:18 Pulse Rate 85 02/14/23 20:15 Respiratory Rate 17 02/14/23 19:55 Blood Pressure 174/101 02/14/23 20:15 Pulse Oximetry 96 02/14/23 20:15 Oxygen Delivery Me thod Room Air 02/14/23 19:18 MDM - Chest Pain Medical Decision Making Patient presents to the ER with constant chest pain for the last 3 weeks. Patient was worked up in a standard chest pain fashion with serial troponins being benign for this patient as he is chronically elevated. Elevated creatinine and potassium his initial potassium was 5.8 after insulin and glucose did drop to 5.6. Patient has dialysis tomorrow which is the treatment of choice for his hyper kalemia. Patient will be given 5 more units of insulin and watched here for 1 more hour and then be discharged home to follow-up with dialysis tomorrow. Differential Diagnosis Unlikely acute massive pulmonary embolism, acute respiratory failure, acute myocardial infarction, cardiac arrest or sudden cardiac Medical Records I reviewed the patient's medical records. Lab Data I reviewed the patient's lab results. 02/14/23 19:24 02/14/23 22:09 Radiology Impressions Chest X-Ray 02/14/23 19:26 IMPRESSION: 1. Patchy bilateral mild ground-glass airspace opacities reflecting alveolar edema and/or pneumonic infiltrates. 2. Cardiomegaly. Laboratory Results WBC 8.61 10^3/uL (3.29-11.43) 02/14/23 19: RBC 3.37 10^6/uL (3.85-5.65) L 02/14/23 19:24 Hgb 10.30 g/dL (11.27-16.99) L 02/14/23 19: Hct 32.1 % (37-53) L 02/14/23 19:24 MCV 95.3 fl (82-101) 02/14/23 19: MCH 30.6 pg (27-33) 02/14/23 19: MCHC 32.1 g/dL (30-55) 02/14/23 19: RDW 17.0 % (12.1-15.1) H 02/14/23 19:24 Plt Count 316 10^3/cmm (157-399) 02/14/23 19: MPV 9.3 fL (7.4-10.4) 02/14/23 19: Neut % (Auto) 75.3 % 02/14/23 19: Lymph % (Auto) 13.9 % 02/14/23 19: Barton % (Auto) 8.8 % 02/14/23 19: Eos % (Auto) 1.2 % 02/14/23 19: Baso % (Auto) 0.5 % 02/14/23 19:24 Neut # (Auto) 6.48 10^3/uL (1.8-7.7) 02/14/23 19:24 Lymph # (Auto) 1.2 10^3/uL (0.8-4.8) 02/14/23 19:24 Barton # (Auto) 0.8 10^3/uL (0.2-0.9) 02/14/23 19:24 Eos # (Auto) 0.1 10^3/uL (0.0-0.8) 02/14/23 19: Baso # (Auto) 0.0 10^3/uL (0.0-0.1) 02/14/23 19: Nucleated RBC % (auto) 0 % 02/14/23 19: Nucleated RBCs # 0.0 /100WBC 02/14/23 19:24 Sodium 138 mmol/L (136-145) 02/14/23 22:09 Potassium 5.6 mmol/L (3.5-5.1) H 02/14/23 22:09 Chloride 93 mmol/L (98-107) L 02/14/23 22:09 Carbon Dioxide 34 mmol/L (22-29) H 02/14/23 22:09 Anion Gap 16.6 (5-19) 02/14/23 22:09 BUN 37 mg/dL (6-20) H 02/14/23 22:09 Creatinine 6.5 mg/dL (0.7-1.2) H* 02/14/23 22:09 GFR Calculation 8.9 mL/min (90-130) L 02/14/23 22:09 Glucose 74 mg/dL (65-115) 02/14/23 22:09 POC Glucose 101 mg/dL (70-110) 02/14/23 22:32 Calculated Osmolality 293 mOsm/kg (285-295) 02/14/23 22:09 Calcium 9.5 mg/dL (8.5-10.5) 02/14/23 22:09 Phosphorus 9.8 mg/dL (2.5-4.5) H* 02/14/23 19:24 Magnesium 2.1 mg/dL (1.7-2.3) 02/14/23 19:24 Total Bilirubin 0.4 mg/dL (0.15-1.2) 02/14/23 19:24 AST 14 U/L (0-40) 02/14/23 19:24 ALT < 5 U/L (0-41) 02/14/23 19:24 Alkaline Phosphatase 100 U/L (40-130) 02/14/23 19:24 Troponin T Baseline 214 ng/L (0-15) H* 02/14/23 19:24 Troponin T 120 Minute 211.8 ng/L (0-15) H 02/14/23 21:30 Delta Troponin T -2.2 ABS# (0-10) L 02/14/23 21:30 Total Protein 6.1 g/dL (6.6-8.7) L 02/14/23 19:24 Albumin 3.3 g/dL (3.5-5.2) L 02/14/23 19:24 Globulin 2.8 g/dL (1.3-4.6) 02/14/23 19:24 All radiology interpretation(s) finalized by discharge EKG Data EKG 1: I personally reviewed and interpreted this EKG as follows: EKG interpretation date: 02/14/23 EKG interpretation time: 19:22 Prior EKG tracings: not available for review Interpretation: EKG shows ventricular rate 82 beats a minute, WV interval 149, QRS duration 104, QTc of 435, sinus rhythm, left anterior fascicular block, EKG 2: I personally reviewed and interpreted this EKG as follows: EKG interpretation date: 02/14/23 EKG interpretation time: :22 Prior EKG tracings: available for review Interpretation: EKG showed ventricular rate 85 beats minute, WV interval 163, QRS duration 106, QTc 433, sinus rhythm, left anterior fascicular block Discharge Plan Discharge Patient Disposition: Home Clinical Impression: Acute hyperkalemia Chest pain Qualifiers: Chest pain type: unspecified Qualified Code(s): R07.9 - Chest pain, unspecified Hypertension Qualifiers: Hypertension type: unspecified Qualified Code(s): I10 - Essential (primary) hypertension Condition: Stable Prescriptions: No Action cholecalciferol (vitamin D3) 125 mcg (5,000 unit) capsule 125 mcg PO DAILY cinacalcet 30 mg tablet 30 mg PO DAILY clopidogrel 75 mg tablet 75 mg PO DAILY Eliquis 5 mg tablet 5 mg PO DAILY clonidine HCl 0.2 mg tablet 0.1 mg PO BID 30 Days Qty: 60 4RF levothyroxine 75 mcg tablet 75 mcg PO DAILY 30 Days Qty: 60 0RF hydralazine 50 mg tablet 50 mg PO TID 30 Days Qty: 90 0RF lisinopril 40 mg tablet 40 mg PO DAILY 30 Days Qty: 30 0RF hydroxyzine HCl 50 mg tablet 50 mg PO .BEDTIME hydroxyzine HCl 25 mg tablet 25 mg PO QID PRN (Reason: Itching) ondansetron 4 mg tablet,disintegrating 4 mg PO Q8H PRN (Reason: nausea and vomiting) Qty: 14 0RF Auryxia 210 mg iron tablet 2 tab PO TID RenaPlex-D 800 mcg-12.5 mg -2,000 unit tablet 1 tab PO DAILY amiodarone 400 mg tablet 400 mg PO DAILY isosorbide mononitrate 60 mg tablet extended release 24 hr 60 mg PO DAILY Lokelma 5 gram powder in packet 5 g PO DAILY Qty: 11 0RF Discharge Orders: Discharge ED (Routine); Ordered 02/14/23 Ordered By: Albert Mcneill Referrals: Randolph Ortiz MD [Primary Care Provider] - Patient Instructions: Chest Pain (ED), Hyperkalemia (ED) Activity Restrictions/Additional Instructions: Please make your dialysis appointment in the morning tomorrow as this will be the definitive treatment for your hyperkalemia and your elevated creatinine. If your chest pain worsens or changes please feel free to return to the ER for further evaluation and treatment. Coding Level of Care Code ED Manufacturing Executive for Eric Sandhu
[2023-02-14 19:42] LABS: Basophils % 0.5 %; Eosinophils # 0.1 10^3/uL (0.0-0.8); Eosinophils % 1.2 %; Hematocrit 32.1 % (37-53); Lymphocytes # 1.2 10^3/uL (0.8-4.8); Lymphocytes % 13.9 %; Mean Corpuscular HGB Conc 32.1 g/dL (30-55); Mean Corpuscular Hemoglobin 30.6 pg (27-33); Mean Corpuscular Volume 95.3 fl (82-101); Mean Platelet Volume 9.3 fL (7.4-10.4); Monocytes # 0.8 10^3/uL (0.2-0.9); Monocytes % 8.8 %; Neutrophils # 6.48 10^3/uL (1.8-7.7); Neutrophils % 75.3 %; Nucleated Red Blood Cells % 0 %; Platelet Count 316 10^3/cmm (157-399); Red Blood Count 3.37 10^6/uL (3.85-5.65); White Blood Count 8.61 10^3/uL (3.29-11.43)
[2023-02-14 20:04] LABS: Alanine Aminotransferase < 5 U/L (0-41); Albumin Level 3.3 g/dL (3.5-5.2); Alkaline Phosphatase 100 U/L (40-130); Aspartate Amino Transferase 14 U/L (0-40); Blood Urea Nitrogen 34 mg/dL (6-20); Calcium 9.6 mg/dL (8.5-10.5); Carbon Dioxide 34 mmol/L (22-29); Chloride 92 mmol/L (98-107); Globulin 2.8 g/dL (1.3-4.6); Glomerular Filtration Rate 9.2 mL/min (90-130); Glucose 73 mg/dL (65-115); Magnesium 2.1 mg/dL (1.7-2.3); Osmolality Calculated 290 mOsm/kg (285-295); Sodium 137 mmol/L (136-145); Total Bilirubin 0.4 mg/dL (0.15-1.2); Total Protein 6.1 g/dL (6.6-8.7)
[2023-02-14 20:06] LABS: Anion Gap 16.8 (5-19); Potassium 5.8 mmol/L (3.5-5.1)
[2023-02-14 20:07] LABS: Phosphorus 9.8 mg/dL (2.5-4.5)
[2023-02-14 20:09] LABS: Troponin(5th) Baseline 214 ng/L (0-15)
[2023-02-14 20:41] LABS: Glucose Point of Care 81 mg/dL (70-110)
[2023-02-14] MEDS: dextrose 50% syringe 50 mL IVP (20:42)
[2023-02-14] MEDS: insulin regular-human 100 units/1 mL 5 UNIT IVP (20:45)
[2023-02-14 21:01] LABS: Glucose Point of Care 159 mg/dL (70-110)
--- NOTE | 2023-02-14 21:26 | ECG_ITS ---
[facility] Test Date: 2023-02-14 Pat Name: Navneet Savage Department: Room: Gender: Male [employer]: : 1965 Requested By: Albert Mcneill Order Number: [id number] Nate MD: Saurabh Fitzpatrick M.D. Measurements Intervals [place] Rate: 85 P: 21 FL: 163 QRS: -48 QRSD: 106 T: 7 QT: 391 QTc: 466 Interpretive Statements SINUS RHYTHM LEFT ANTERIOR FASCICULAR BLOCK [QRS AXIS <= -45, QR IN I, RS IN II] VOLTAGE CRITERIA FOR LVH [MEETS CRITERIA IN ONE OF: R(aVL), S(V1), R(V5), R(V5/V6)+S(V1)] Compared to ECG 01/28/2023 01:48:25 Left anterior fascicular block now present Left ventricular hypertrophy now present Atrial fibrillation no longer present ST (T wave) deviation no longer present Electronically Signed On 02-15-2023 16:19:37 CDT by Saurabh Fitzpatrick M.D. [id number]
[2023-02-14 21:29] LABS: Glucose Point of Care 128 mg/dL (70-110)
[2023-02-14 21:31] LABS: Glucose Point of Care 117 mg/dL (70-110)
[2023-02-14 21:53] LABS: Glucose Point of Care 110 mg/dL (70-110)
[2023-02-14 22:00] LABS: Troponin 5 2HR 211.8 ng/L (0-15); Troponin 5 2HR Delta -2.2 ABS# (0-10)
[2023-02-14 22:35] LABS: Glucose Point of Care 101 mg/dL (70-110)
[2023-02-14 22:42] LABS: Anion Gap 16.6 (5-19); Blood Urea Nitrogen 37 mg/dL (6-20); Calcium 9.5 mg/dL (8.5-10.5); Carbon Dioxide 34 mmol/L (22-29); Chloride 93 mmol/L (98-107); Glomerular Filtration Rate 8.9 mL/min (90-130); Glucose 74 mg/dL (65-115); Osmolality Calculated 293 mOsm/kg (285-295); Potassium 5.6 mmol/L (3.5-5.1); Sodium 138 mmol/L (136-145)
[2023-02-14] MEDS: cloNIDine 0.1 mg Tablet 0.2 MG PO (23:03)
[2023-02-14 23:09] LABS: Glucose Point of Care 82 mg/dL (70-110)
[2023-02-14 23:50] LABS: Glucose Point of Care 69 mg/dL (70-110)
[2023-02-15] MEDS: dextrose 50% syringe 50 mL 25 ML IVP (00:07)
[2023-02-15 00:09] LABS: Glucose Point of Care 91 mg/dL (70-110)
[2023-02-15 00:20] LABS: Glucose Point of Care 135 mg/dL (70-110)
[2023-02-15 00:29] VITALS: BP 146/113; PULSE 112; O2SAT 96
== END 2023-02-15 00:28 | disposition home or self-care (01) ==
PROVIDERS: Emergency Provider Emergency Medicine; PCP Family Medicine
DX: R07.9 Chest pain, unspecified (principal); E87.5 Hyperkalemia; Z79.02 Long term (current) use of antithrombotics/antiplatelets; Z79.01 Long term (current) use of anticoagulants; F17.210 Nicotine dependence, cigarettes, uncomplicated; I12.0 Hypertensive chronic kidney disease with stage 5 chronic kidney disease or end stage renal disease; N18.6 End stage renal disease; Z99.2 Dependence on renal dialysis; Z86.73 Personal history of transient ischemic attack (TIA), and cerebral infarction without residual deficits
CPT/HCPCS: 36415; 36416; 71045; 80048; 80053; 82962; 83735; 84100; 84484; 85025; 93005; 96374; 96375; 96376; 99285; J1815

== ENCOUNTER 2023-02-16 11:15 | Day surgery (SDC) | payer MEDICARE, MEDICAID, SELFPAY ==
[2023-02-16 11:35] VITALS: BP 171/96; PULSE 72; RESP 18; TEMP 37.3; O2SAT 99; BMI 29.4
--- NOTE | 2023-02-16 11:50 | US_ITS ---
WS: [id number] ULTRASOUND-GUIDED PARACENTESIS CLINICAL INFORMATION: ascites COMPARISON: None. Procedure Informed consent: The risks, benefits, and alternatives of the procedure were discussed with the lisa ent. Verbal and written consent was obtained. Timeout: A timeout was performed to confirm the correct patient, procedure, and site. Preparation: A suitable skin site was identified. The patient was prepped and draped in usual sterile fashion. Lidocaine 1% was used for local anesthesia. Catheter: 4 Italian One-step Yueh catheter. Side: RIGHT lower quadrant. Fluid Volume: 3600 ml Color: Clear yellow DISPOSITION: Discarded safely. Complications: None. Patient disposition: Discharged from the department in stable condition. IMPRESSION: Uncomplicated ultrasound-guided paracentesis. Removal of 3600cc
== END 2023-02-16 13:15 | disposition home or self-care (01) ==
LOC: GILAB 11:16
PROVIDERS: Radiology Neuroradiology; PCP Family Medicine; Visit Provider Internal Medicine Nephrology
PROC: (CPT 49082; principal; 2023-02-16 12:00)
DX: R18.8 Other ascites (principal)
CPT/HCPCS: 49083

== ENCOUNTER 2023-02-17 15:05 | Emergency (ER) | payer MEDICARE, MEDICAID, SELFPAY ==
[2023-02-17 15:06] VITALS: PULSE 120; TEMP 37; O2SAT 96; BMI 28.1
--- NOTE | 2023-02-17 15:46 | ED_ITS ---
HPI - Weakness General: Chief complaint: Weakness Stated complaint: Weakness Time Seen by Provider: 02/17/23 15:13 History of Present Illness: 57-year-old male who is chronically ill presents emergency department with chief complaint of I feel like crap . Patient states he feels weak, achy, sort of short of breath and just generally unwell. This happens to him fairly frequently but has been particular notable today. He did have hyperkalemia on the and dialysis on Wednesday. He then had 3.6 L of ascites drained yesterday. It is notable that he is tachycardic and when he sits up to take a drink of water, his heart rate jumps up by 25 bpm. Patient' states he feels sort of chilled as well. Denies any cough, sputum production, abdominal pain, focal joint pain. He does have small abrasions on his left forearm and on his left upper back. He says he scratches himself and unintentionally peels the skin. I have looked at the sites and none of them appear infected Associated symptoms: Denies chest pain, dysuria, fever(s), headache(s), nausea, syncope or vomiting Review of Systems General: Reports: 10 or more systems reviewed and unremarkable except in HPI and below Narrative: Fatigue, feels chilled, chronic dyspnea, some lightheadedness, generally weak Const: Denies: fever(s) Eyes: Denies: change in vision ENMT: Denies: throat pain Card: Denies: chest pain, edema or syncope Resp: Denies: productive cough GI: Denies: abdominal pain, nausea, vomiting or diarrhea : Denies: flank pain, dysuria or urinary frequency Skin/Breast: Denies: rash or erythema Neuro: Denies: headache(s), numbness in extremities, weakness in extremities, lack of coordination or difficulty walking PFS ED PFSH: Medical History Acute hyperkalemia Altered mental status Anemia in chronic kidney disease Ascites Nephrogenic ascites Ascites gets regular paracentesis Bilateral hydronephrosis Chronic anemia CVA (cerebral vascular accident) Dilated aortic root End stage renal disease on dialysis GERD (gastroesophageal reflux disease) Gout History of stroke Hypertension Hypoglycemia Hypothyroidism Incomplete bladder emptying Major depressive disorder Malaise Neuropathy, lumbosacral (radicular) Polycystic kidney disease Right bundle branch block (RBBB) on electrocardiogram (ECG) Tobacco use disorder Surgical History AV fistula left arm History of colonoscopy 2019 at [facility] History of surgical procedure Peritoneal dialysis catheter placement by Dr. Kamara 2015 S/P hemodialysis catheter insertion (03/13/20) 23cm long exchanged right IJ Removed on 06/11/2020 Family History Mother Chronic kidney disease (CKD) Stroke Father Cancer lung Brother Hypertension Denies family history of Diabetes CAD (coronary artery disease) Clotting disorder Dementia Hyperlipidemia Psychiatric illness Anesthesia complication Bleeding disorder Lung disease Social History Smoking and tobacco status: current every day smoker cigarettes Packs smoked per day: 1 [ Other cigarette details: Half a pack per day for last 20-30 years] Alcohol intake: never Substance/Drug Use: current Substance/Drug use frequency: few times a week Marital status: Number of children: 1 Current occupational status: disabled Current gender identity: Male Agree to transfusion: Yes Physical Exam Narrative: EXAM NARRATIVE: Patient is tachycardic with an irregular rhythm. Radial pulses 2+. Left upper extremity AV fistula with a very strong thrill. He does appear chronically ill and much older than his stated age. His oral mucosa is dry. He has no meningeal signs. No focal musculoskeletal abnormalities to suggest joint infection. He has a few notable skin ulcerations on his left forearm and left upper back. He has blood underneath his fingernails and says that he has been scratching. Abdomen is obese but soft and nontender. Const: COMMON NORMALS: no limitations and alert EXAM LIMITATIONS: no altered mental status HENMT: COMMON NORMALS: normocephalic, atraumatic and external ears normal HEAD & SCALP: normocephalic and atraumatic EXTERNAL EAR: Yes external ears normal MOUTH: no muffled voice Eye: COMMON NORMALS: conjunctivae normal and no scleral icterus CONJUNCTIVA: Yes conjunctivae normal Neck/C-Spine: COMMON NORMALS: no JVD GENERAL: Yes normal visual inspection and Yes trachea midline Resp: COMMON NORMALS: normal respiratory effort, No use of accessory muscles and clear to auscultation bilaterally AUSCULTATION: clear to auscultation bilaterally Cardio: COMMON NORMALS: no JVD GI: COMMON NORMALS: Soft to palpation and non-tender PALPATION: Yes Soft to palpation and No Guarding due to palpation present (GI) Extremity: COMMON NORMALS: normal to inspection Neuro: COMMON NORMALS: moves all extremities, no focal motor deficits and no sensory deficits noted SENSORIUM/ORIENTATION: Yes alert SPEECH: speech normal Psych: COMMON NORMALS: mental status grossly normal, Normal thought process pr esent, cooperative and speech normal SPEECH: Yes normal speech THOUGHT PROCESS: Normal thought process present Skin: COMMON NORMALS: turgor normal and no jaundice GENERAL SKIN EXAM: turgor normal Course Vital Signs: Vital signs: Vital Signs Temperature 98.6 F 02/17/23 15:06 Pulse Rate 120 H 02/17/23 15:06 Pulse Oximetry 96 02/17/23 15:06 Oxygen Delivery Me thod Nasal Cannula 02/17/23 15:06 Oxygen Flow Rate 4 02/17/23 15:06 MDM - Weakness Medical Decision Making 57-year-old male with general complaints of not feeling well. Examination is most notable for atrial fibrillation with rapid ventricular response on the monitor. Patient does have a history of paroxysmal atrial fibrillation. He is on Eliquis. Per chart review he is on amiodarone and metoprolol as well. Patient had to have aggressive dialysis on Wednesday for hyperkalemia and then got 3.6 L removed yesterday. I am wondering if these fluid shifts have spurred an episode of atrial fibrillation. His presentation is nonspecific and there is a very long differential diagnosis. We will check electrolytes, hemoglobin, acid-base status, give metoprolol 5 mg IV. I have turned him down to 3 L by nasal cannula which is his baseline supplementation given his chronic hypoxic respiratory failure. Lungs sound clear at this time. EKG obtained at 1549 shows a atrial fibrillation, rate 131 bpm, LVH, incomplete right bundle branch block, some mild J-point depression in V6, no STEMI criteria. Update Hemoglobin 9.6 stable. No significant electrolyte abnormalities. Creatinine down to 2.4. Phosphorus mildly elevated. No significant metabolic acidosis. Patient's A-fib was treated with metoprolol 5 mg IV and got his rate down to around 100. I went and gave him Cardizem 20 mg IV bolus. During this time his blood pressure went up. Patient revealed me that he had not taken any of his morning medications. I went ahead and ordered him his Plavix, amiodarone and lisinopril. Subjectively, the patient feels better. He is already anticoagulated and is maximized on his medical therapy. I find no reason for further emergent intervention or hospitalization at this time. Patient will be discharged home. Lab Data 02/17/23 14:45 02/17/23 14:45 Laboratory Results WBC 5.98 10^3/uL (3.29-11.43) 02/17/23 14:45 RBC 3.16 10^6/uL (3.85-5.65) L 02/17/23 14:45 Hgb 9.60 g/dL (11.27-16.99) L 02/17/23 14:45 Hct 30.1 % (37-53) L 02/17/23 14:45 MCV 95.3 fl (82-101) 02/17/23 14:45 MCH 30.4 pg (27-33) 02/17/23 14:45 MCHC 31.9 g/dL (30-55) 02/17/23 14:45 RDW 16.5 % (12.1-15.1) H 02/17/23 14:45 Plt Count 276 10^3/cmm (157-399) 02/17/23 14:45 MPV 9.7 fL (7.4-10.4) 02/17/23 14:45 Neut % (Auto) 74.8 % 02/17/23 14:45 Lymph % (Auto) 12.9 % 02/17/23 14:45 [place] % (Auto) 11.0 % 02/17/23 14:45 Eos % (Auto) 0.7 % 02/17/23 14:45 Baso % (Auto) 0.3 % 02/17/23 14:45 Neut # (Auto) 4.47 10^3/uL (1.8-7.7) 02/17/23 14:45 Lymph # (Auto) 0.8 10^3/uL (0.8-4.8) 02/17/23 14:45 [place] # (Auto) 0.7 10^3/uL (0.2-0.9) 02/17/23 14:45 Eos # (Auto) 0.0 10^3/uL (0.0-0.8) 02/17/23 14:45 Baso # (Auto) 0.0 10^3/uL (0.0-0.1) 02/17/23 14:45 Nucleated RBC % (auto) 0 % 02/17/23 14:45 Nucleated RBCs # 0.0 /100WBC 02/17/23 14:45 Sodium 141 mmol/L (136-145) 02/17/23 14:45 Potassium 4.2 mmol/L (3.5-5.1) 02/17/23 14:45 Chloride 95 mmol/L (98-107) L 02/17/23 14:45 Carbon Dioxide 38 mmol/L (22-29) H 02/17/23 14:45 Anion Gap 12.2 (5-19) 02/17/23 14:45 BUN 12 mg/dL (6-20) 02/17/23 14:45 Creatinine 2.4 mg/dL (0.7-1.2) H 02/17/23 14:45 GFR Calculation 28.0 mL/min (90-130) L 02/17/23 14:45 Glucose 99 mg/dL (65-115) 02/17/23 14:45 Calculated Osmolality 292 mOsm/kg (285-295) 02/17/23 14:45 Calcium 9.7 mg/dL (8.5-10.5) 02/17/23 14:45 Phosphorus 5.6 mg/dL (2.5-4.5) H 02/17/23 14:45 Magnesium 1.9 mg/dL (1.7-2.3) 02/17/23 14:45 Total Bilirubin 0.4 mg/dL (0.15-1.2) 02/17/23 14:45 AST 13 U/L (0-40) 02/17/23 14:45 ALT 6 U/L (0-41) 02/17/23 14:45 Alkaline Phosphatase 102 U/L (40-130) 02/17/23 14:45 Total Protein 6.2 g/dL (6.6-8.7) L 02/17/23 14:45 Albumin 3.3 g/dL (3.5-5.2) L 02/17/23 14:45 Globulin 2.9 g/dL (1.3-4.6) 02/17/23 14:45 No radiology studies performed this visit Discharge Plan Discharge Patient Disposition: Home Clinical Impression: Atrial fibrillation with RVR, Accelerated hypertension Condition: Stable Prescriptions: No Action cholecalciferol (vitamin D3) 125 mcg (5,000 unit) capsule 125 mcg PO DAILY cinacalcet 30 mg tablet 30 mg PO DAILY clopidogrel 75 mg tablet 75 mg PO DAILY Eliquis 5 mg tablet 5 mg PO DAILY clonidine HCl 0.2 mg tablet 0.1 mg PO BID 30 Days Qty: 60 4RF levothyroxine 75 mcg tablet 75 mcg PO DAILY 30 Days Qty: 60 0RF hydralazine 50 mg tablet 50 mg PO TID 30 Days Qty: 90 0RF hydroxyzine HCl 25 mg tablet 25 mg PO QID PRN (Reason: Itching) ondansetron 4 mg tablet,disintegrating 4 mg PO Q8H PRN (Reason: nausea and vomiting) Qty: 14 0RF Auryxia 210 mg iron tablet 2 tab PO TID RenaPlex-D 800 mcg-12.5 mg -2,000 unit tablet 1 tab PO DAILY amiodarone 400 mg tablet 400 mg PO DAILY isosorbide mononitrate 60 mg tablet extended release 24 hr 30 mg PO DAILY lisinopril 20 mg Tablet 20 mg PO DAILY metoprolol tartrate 50 mg tablet 50 mg PO DAILY nitroglycerin 0.4 mg tablet, sublingual 0.4 mg sublingual DIRECTED PRN (Reason: Chest Pain) Lokelma 5 gram powder in packet 5 g PO DAILY Qty: 11 0RF Patient Comments: pt states he has never had this filled, has not taken this. Discharge Orders: Discharge ED (Routine); Ordered 02/17/23 Ordered By: Berto Mesa Referrals: Randolph Ortiz MD [Primary Care Provider] - 4-7 days Discharge Diet: Advance as tolerated Discharge Activity: Resume usual activity Patient Instructions: A-fib (Atrial Fibrillation) (ED), Hypertension (ED), Opioid Safety, Pain Management Activity Restrictions/Additional Instructions: Please read all discharge instructions and abide by recommendations and return precautions. Make an appointment to follow-up with your primary care doctor as directed for follow-up. Return to ER if getting worse or other emergent symptoms. Coding Level of Care Code ED Data Migration Lead for Eric Sandhu
[2023-02-17 15:57] LABS: Basophils % 0.3 %; Eosinophils % 0.7 %; Hematocrit 30.1 % (37-53); Lymphocytes # 0.8 10^3/uL (0.8-4.8); Lymphocytes % 12.9 %; Mean Corpuscular HGB Conc 31.9 g/dL (30-55); Mean Corpuscular Hemoglobin 30.4 pg (27-33); Mean Corpuscular Volume 95.3 fl (82-101); Mean Platelet Volume 9.7 fL (7.4-10.4); Monocytes # 0.7 10^3/uL (0.2-0.9); Neutrophils # 4.47 10^3/uL (1.8-7.7); Neutrophils % 74.8 %; Nucleated Red Blood Cells % 0 %; Platelet Count 276 10^3/cmm (157-399); Red Blood Count 3.16 10^6/uL (3.85-5.65); Red Cell Distribution Width 16.5 % (12.1-15.1); White Blood Count 5.98 10^3/uL (3.29-11.43)
--- NOTE | 2023-02-17 16:00 | ECG_ITS ---
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 Measurements Intervals [place] Rate: 117 P: 0 NC: 0 QRS: -43 QRSD: 101 T: 16 QT: 348 QTc: 487 Interpretive Statements ATRIAL FIBRILLATION WITH RAPID VENTRICULAR RESPONSE LEFT AXIS DEVIATION [QRS AXIS < -30] VOLTAGE CRITERIA FOR LVH [MEETS CRITERIA IN ONE OF: R(aVL), S(V1), R(V5), R(V5/V6)+S(V1)] POSSIBLE SEPTAL MYOCARDIAL INFARCTION , PROBABLY OLD [30 ms Q WAVE IN V1/V2] Compared to ECG 02/14/2023 21:22:45 Left-axis deviation now present Myocardial infarct finding now present Sinus rhythm no longer present Left anterior fascicular block no longer present Electronically Signed On 02-17-2023 20:50:53 CDT by China Wheat M.D. [id number]
[2023-02-17 16:02] LABS: Alanine Aminotransferase 6 U/L (0-41); Albumin Level 3.3 g/dL (3.5-5.2); Alkaline Phosphatase 102 U/L (40-130); Anion Gap 12.2 (5-19); Aspartate Amino Transferase 13 U/L (0-40); Blood Urea Nitrogen 12 mg/dL (6-20); Calcium 9.7 mg/dL (8.5-10.5); Carbon Dioxide 38 mmol/L (22-29); Chloride 95 mmol/L (98-107); Globulin 2.9 g/dL (1.3-4.6); Glucose 99 mg/dL (65-115); Magnesium 1.9 mg/dL (1.7-2.3); Osmolality Calculated 292 mOsm/kg (285-295); Phosphorus 5.6 mg/dL (2.5-4.5); Potassium 4.2 mmol/L (3.5-5.1); Sodium 141 mmol/L (136-145); Total Bilirubin 0.4 mg/dL (0.15-1.2); Total Protein 6.2 g/dL (6.6-8.7)
[2023-02-17] MEDS: metoprolol tartrate 1 mg/1 mL SDV 5 mL 5 MG IVP (16:16)
[2023-02-17] MEDS: dilTIAZem 5 mg/mL SDV 5 mL 20 MG IVP (17:13)
[2023-02-17] MEDS: clopidogrel 75 mg Tablet PO (17:45)
[2023-02-17] MEDS: amiodarone 200 mg Tablet 400 MG PO (17:45)
[2023-02-17] MEDS: metoprolol tartrate 50 mg Tablet PO (17:46)
[2023-02-17] MEDS: lisinopril 20 mg Tablet PO (17:46)
== END 2023-02-17 18:19 | disposition home or self-care (01) ==
PROVIDERS: Emergency Provider Emergency Medicine; PCP Family Medicine
DX: I48.20 Chronic atrial fibrillation, unspecified (principal); Z79.02 Long term (current) use of antithrombotics/antiplatelets; Z79.01 Long term (current) use of anticoagulants; F17.210 Nicotine dependence, cigarettes, uncomplicated; I12.0 Hypertensive chronic kidney disease with stage 5 chronic kidney disease or end stage renal disease; N18.6 End stage renal disease; Z99.2 Dependence on renal dialysis; Z86.73 Personal history of transient ischemic attack (TIA), and cerebral infarction without residual deficits
CPT/HCPCS: 80053; 83735; 84100; 85025; 93005; 96374; 96375; 99284; J3490

== ENCOUNTER 2023-02-19 21:38 | Observation (INO) | payer MEDICARE, MEDICAID, SELFPAY ==
[2023-02-19 21:41] VITALS: PULSE 71; RESP 18; TEMP 36.6; O2SAT 97; BMI 31.3
[2023-02-19 21:47] VITALS: BP 198/97; PULSE 67; RESP 29; O2SAT 96
[2023-02-19 21:54] LABS: Basophils % 0.4 %; Eosinophils # 0.2 10^3/uL (0.0-0.8); Eosinophils % 2.5 %; Hematocrit 29.9 % (37-53); Lymphocytes # 1.2 10^3/uL (0.8-4.8); Lymphocytes % 15.1 %; Mean Corpuscular HGB Conc 31.8 g/dL (30-55); Mean Corpuscular Hemoglobin 30.3 pg (27-33); Mean Corpuscular Volume 95.2 fl (82-101); Mean Platelet Volume 9.8 fL (7.4-10.4); Monocytes # 0.8 10^3/uL (0.2-0.9); Monocytes % 9.4 %; Neutrophils # 5.73 10^3/uL (1.8-7.7); Neutrophils % 72.1 %; Nucleated Red Blood Cells % 0 %; Platelet Count 287 10^3/cmm (157-399); Red Blood Count 3.14 10^6/uL (3.85-5.65); Red Cell Distribution Width 16.4 % (12.1-15.1); White Blood Count 7.95 10^3/uL (3.29-11.43)
--- NOTE | 2023-02-19 21:54 | W.ED.WEAKNES ---
HPI - Weakness General: Chief complaint: Weakness Stated complaint: missed dialysis, lightheaded Time Seen by Provider: 02/19/23 21:49 Source: patient Mode of arrival: ambulatory Limitations: no limitations History of Present Illness: 57-year-old male who is very well-known to the ER he has a history end-stage renal disease he is on dialysis goes to dialysis Wednesday states that he missed his dialysis session today he states he been feeling lightheaded some slight weakness he denies any pain anywhere he had no vomiting or diarrhea Associated symptoms: Denies chest pain, chills, fever(s), headache(s), nausea or vomiting Review of Systems Const: Reports: fatigue; Denies: fever(s) or chills Eyes: Denies: blurry vision or eye discomfort ENMT: Denies: throat pain or dental pain Card: Denies: chest pain Resp: Denies: dyspnea GI: Denies: abdominal pain, nausea, vomiting or diarrhea Musc: Denies: neck pain or back pain Skin/Breast: Denies: rash Neuro: Denies: headache(s) PFSH ED PFSH: Medical History Acute hyperkalemia Altered mental status Anemia in chronic kidney disease Ascites Nephrogenic ascites Ascites gets regular paracentesis Bilateral hydronephrosis Chronic anemia CVA (cerebral vascular accident) Dilated aortic root End stage renal disease on dialysis GERD (gastroesophageal reflux disease) Gout History of stroke Hypertension Hypoglycemia Hypothyroidism Incomplete bladder emptying Major depressive disorder Malaise Neuropathy, lumbosacral (radicular) Polycystic kidney disease Right bundle branch block (RBBB) on electrocardiogram (ECG) Tobacco use disorder Surgical History AV fistula left arm History of colonoscopy 2019 at [facility] History of surgical procedure Peritoneal dialysis catheter placement by Dr. Kamara 2016 S/P hemodialysis catheter insertion (03/13/20) 23cm long exchanged right IJ Removed on 06/11/2020 Family History Mother Chronic kidney disease (CKD) Stroke Father Cancer lung Brother Hypertension Denies family history of Diabetes CAD (coronary artery disease) Clotting disorder Dementia Hyperlipidemia Psychiatric illness Anesthesia complication Bleeding disorder Lung disease Social History Smoking and tobacco status: current every day smoker cigarettes Packs smoked per day: 1 [ Other cigarette details: Half a pack per day for last 20-30 years] Alcohol intake: never Substance/Drug Use: current Substance/Drug use frequency: few times a week Marital status: Number of children: 1 Current occupational status: disabled Current gender identity: Male Agree to transfusion: Yes Physical Exam Const: COMMON NORMALS: patient oriented x3 HENMT: COMMON NORMALS: normocephalic and atraumatic HEAD & SCALP: normocephalic and atraumatic Eye: COMMON NORMALS: Equal, round and reactive pupils present and EOMs intact bilaterally PUPIL: Yes Equal, round and reactive pupils present Neck/C-Spine: COMMON NORMALS: full ROM and supple Chest: COMMONS NORMALS: normal inspection of the chest Resp: COMMON NORMALS: normal respiratory effort Cardio: COMMON NORMALS: regular rate, regular rhythm and No murmurs present (Cardio) RATE: regular rate RHYTHM: regular rhythm GI: COMMON NORMALS: no masses INSPECTION: Yes normal to inspection Extremity: COMMON NORMALS: normal to inspection and full ROM Neuro: COMMON NORMALS: patient oriented x3, moves all extremities and no focal motor deficits Psych: COMMON NORMALS: mental status grossly normal, Normal thought process present and cooperative THOUGHT PROCESS: Normal thought process present Skin: COMMON NORMALS: no rashes or lesions noted and no wounds GENERAL SKIN EXAM: no rashes or lesions noted Course Vital Signs: Vital signs: Vital Signs Temperature 98 F 02/19/23 21:41 Pulse Rate 70 02/19/23 22:34 Respiratory Rate 21 H 02/19/23 22:34 Blood Pressure 183/95 02/19/23 22:34 Pulse Oximetry 100 02/19/23 22:34 Oxygen Delivery Me thod Nasal Cannula 02/19/23 22:34 Oxygen Flow Rate 3 02/19/23 22:34 MDM - Weakness Medical Decision Making Patient presents here with hyperkalemia likely due to missing his dialysis spoke to hospitalist will admit for observation he has been stable here we will give him insulin and D50. EKG shows no acute changes Medical Records I reviewed the patient's medical records. Lab Data I reviewed the patient's lab results. 02/19/23 21:46 02/19/23 21:46 Laboratory Results WBC 7.95 10^3/uL (3.29-11.43) 02/19/23 21:46 RBC 3.14 10^6/uL (3.85-5.65) L 02/19/23 21:46 Hgb 9.50 g/dL (11.27-16.99) L 02/19/23 21:46 Hct 29.9 % (37-53) L 02/19/23 21:46 MCV 95.2 fl (82-101) 02/19/23 21:46 MCH 30.3 pg (27-33) 02/19/23 21:46 MCHC 31.8 g/dL (30-55) 02/19/23 21:46 RDW 16.4 % (12.1-15.1) H 02/19/23 21:46 Plt Count 287 10^3/cmm (157-399) 02/19/23 21:46 MPV 9.8 fL (7.4-10.4) 02/19/23 21:46 Neut % (Auto) 72.1 % 02/19/23 21:46 Lymph % (Auto) 15.1 % 02/19/23 21:46 [place] % (Auto) 9.4 % 02/19/23 21:46 Eos % (Auto) 2.5 % 02/19/23 21:46 Baso % (Auto) 0.4 % 02/19/23 21:46 Neut # (Auto) 5.73 10^3/uL (1.8-7.7) 02/19/23 21:46 Lymph # (Auto) 1.2 10^3/uL (0.8-4.8) 02/19/23 21:46 [place] # (Auto) 0.8 10^3/uL (0.2-0.9) 02/19/23 21:46 Eos # (Auto) 0.2 10^3/uL (0.0-0.8) 02/19/23 21:46 Baso # (Auto) 0.0 10^3/uL (0.0-0.1) 02/19/23 21:46 Nucleated RBC % (auto) 0 % 02/19/23 21:46 Nucleated RBCs # 0.0 /100WBC 02/19/23 21:46 Sodium 133 mmol/L (136-145) L 02/19/23 21:46 Potassium 6.3 mmol/L (3.5-5.1) H 02/19/23 21:46 Chloride 93 mmol/L (98-107) L 02/19/23 21:46 Carbon Dioxide 29 mmol/L (22-29) 02/19/23 21:46 Anion Gap 17.3 (5-19) 02/19/23 21:46 BUN 44 mg/dL (6-20) H 02/19/23 21:46 Creatinine 5.5 mg/dL (0.7-1.2) H 02/19/23 21:46 GFR Calculation 10.8 mL/min (90-130) L 02/19/23 21:46 Glucose 89 mg/dL (65-115) 02/19/23 21:46 Calculated Osmolality 287 mOsm/kg (285-295) 02/19/23 21:46 Calcium 9.7 mg/dL (8.5-10.5) 02/19/23 21:46 Total Bilirubin 0.4 mg/dL (0.15-1.2) 02/19/23 21:46 AST 15 U/L (0-40) 02/19/23 21:46 ALT < 5 U/L (0-41) 02/19/23 21:46 Alkaline Phosphatase 113 U/L (40-130) 02/19/23 21:46 Total Protein 6.2 g/dL (6.6-8.7) L 02/19/23 21:46 Albumin 3.3 g/dL (3.5-5.2) L 02/19/23 21:46 Globulin 2.9 g/dL (1.3-4.6) 02/19/23 21:46 No radiology studies performed this visit Critical Care Time Critical Care Time: Critical Care Time: Yes Total Critical Care Time: 35 Attestation: The high probability of a clinically significant, sudden or life threatening deterioration of the patient's endocrine system(s) required my full and direct attention, intervention and personal management. The critical care time is as shown. This time is in addition to time spent performing any reported procedures but includes the following: [x] Data and vital sign review and interpretation [x] Patient assessment, examination and intervention [x] Documentation [x] Medication orders and management Discharge Plan Discharge Patient Disposition: Placed in Observation Clinical Impression: Acute hyperkalemia, End stage renal disease on dialysis Coding Level of Care Code ED Construction Project Engineer for Eric Sandhu
[2023-02-19] MEDS: hyDRALAzine 20 mg/mL INJ 1 mL 10 MG IVP (21:59)
[2023-02-19 22:14] LABS: Alanine Aminotransferase < 5 U/L (0-41); Albumin Level 3.3 g/dL (3.5-5.2); Alkaline Phosphatase 113 U/L (40-130); Anion Gap 17.3 (5-19); Aspartate Amino Transferase 15 U/L (0-40); Blood Urea Nitrogen 44 mg/dL (6-20); Calcium 9.7 mg/dL (8.5-10.5); Carbon Dioxide 29 mmol/L (22-29); Chloride 93 mmol/L (98-107); Globulin 2.9 g/dL (1.3-4.6); Glomerular Filtration Rate 10.8 mL/min (90-130); Glucose 89 mg/dL (65-115); Osmolality Calculated 287 mOsm/kg (285-295); Potassium 6.3 mmol/L (3.5-5.1); Sodium 133 mmol/L (136-145); Total Bilirubin 0.4 mg/dL (0.15-1.2); Total Protein 6.2 g/dL (6.6-8.7)
[2023-02-19 22:17] VITALS: BP 180/80; PULSE 69; RESP 19; O2SAT 100
[2023-02-19 22:34] VITALS: BP 183/95; PULSE 70; RESP 21; O2SAT 100
--- NOTE | 2023-02-19 22:42 | ECG_ITS ---
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 Measurements Intervals [place] Rate: 66 P: 69 MT: 177 QRS: -37 QRSD: 106 T: 3 QT: 443 QTc: 465 Interpretive Statements SINUS RHYTHM LEFT AXIS DEVIATION [QRS AXIS < -30] Compared to ECG 02/17/2023 16:00:06 Atrial fibrillation no longer present Left ventricular hypertrophy no longer present Myocardial infarct finding no longer present Electronically Signed On 02-20-2023 9:37:13 CDT by Saurabh Fitzpatrick M.D. [id number]
[2023-02-19 23:07] VITALS: BP 194/90; PULSE 77; RESP 21; O2SAT 100
[2023-02-19] MEDS: insulin regular-human 100 units/1 mL 10 UNIT IVP (23:20)
[2023-02-19] MEDS: dextrose 50% syringe 50 mL IVP (23:24)
[2023-02-19 23:37] VITALS: BP 149/68; PULSE 78; RESP 14; O2SAT 98
--- NOTE | 2023-02-19 23:52 | PM.HP ---
Providers/Chief Complaint Admitting Physician: Bony Duarte MD Primary Care Provider: Randolph Ortiz MD Chief Complaint: missed dialysis, lightheaded History of Present Illness Navneet Savage is a 57 year old male with a past medical history of CAD status post stenting, history of atrial fibrillation on Eliquis, recent hospitalization for cardiac arrest, pulm edema, pneumonia, end-stage renal disease on dialysis, history of resistant hyperkalemia, abdominal ascites most recent paracentesis was on Wednesday, history of multiple ER visits for hyperkalemia, history of bleeding AGAINST MEDICAL ADVICE, who presents [facility] due to feeling unwell, having a productive cough with yellow-green sputum. Feeling short of breath. Patient tells me that he has been feeling well for the last few days, fatigue, malaise, no fevers, no chills, having a productive cough of yellow-green sputum, no nausea, vomiting, no abdominal pain, no chest pain, no palpitations. He had a paracentesis on Wednesday. He does report lightheadedness and weakness. Emergency room he was found to have acute on chronic hyperkalemia of 6.3 was given D50, insulin, denies any chest pain, no palpitations, EKG sinus rhythm, patient tells me that he was not feeling well over the last few days, so he missed dialysis yesterday Review of Systems Const: Reports: chills, body aches, change in appetite, change in weight, fatigue and malaise Eyes: Denies: change in vision Card: Denies: chest pain Resp: Reports: dyspnea and productive cough GI: Denies: abdominal pain : Denies: flank pain or difficulty urinating Musc: Denies: neck pain or back pain Skin/Breast: Denies: rash Neuro: Denies: headache(s) Medications/Allergies Home Medications Medication Instructions Recorded Confirmed Last Taken Type cinacalcet 30 mg tablet 30 mg PO DAILY 05/12/22 02/16/23 02/15/23 History cholecalciferol (vitamin D3) 125 125 mcg PO DAILY 06/18/22 02/16/23 02/15/23 History mcg (5,000 unit) capsule ferric citrate 210 mg iron tablet 2 tab PO TID 06/22/22 02/16/23 02/15/23 History (Auryxia) vit B,C-folic ac 800 mcg-zinc 12.5 1 tab PO DAILY 06/22/22 02/16/23 02/15/23 History mg-selen-D3 2,000 unit-vit E tablet (RenaPlex-D) sodium zirconium cyclosilicate 5 5 g PO DAILY #11 ea 12/22/22 02/16/23 02/08/23 Rx gram oral powder packet (Lokelma) clonidine HCl 0.2 mg tablet 0.1 mg PO BID 30 days #60 tabs 12/31/22 02/16/23 02/13/23 Rx hydralazine 50 mg tablet 50 mg PO TID 30 days #90 tabs 12/31/22 02/16/23 02/15/23 Rx levothyroxine 75 mcg tablet 75 mcg PO DAILY 30 days #60 tabs 12/31/22 02/16/23 02/15/23 Rx hydroxyzine HCl 25 mg tablet 25 mg PO QID PRN Itching 01/06/23 02/16/23 02/16/23 History ondansetron 4 mg disintegrating 4 mg PO Q8H PRN nausea and 01/30/23 02/16/23 02/15/23 Rx tablet vomiting #14 tabs apixaban 5 mg tablet (Eliquis) 5 mg PO DAILY 02/02/23 02/16/23 02/15/23 History clopidogrel 75 mg tablet 75 mg PO DAILY 02/02/23 02/16/23 02/15/23 History amiodarone 400 mg tablet 400 mg PO DAILY 02/08/23 02/16/23 02/15/23 History isosorbide mononitrate 60 mg 30 mg PO DAILY 02/08/23 02/16/23 02/15/23 History tablet,extended release 24 hr lisinopril 20 mg tablet 20 mg PO DAILY 02/16/23 02/16/23 02/15/23 History metoprolol tartrate 50 mg tablet 50 mg PO DAILY 02/16/23 02/16/23 02/15/23 History nitroglycerin 0.4 mg sublingual 0.4 mg sublingual DIRECTED PRN 02/16/23 02/16/23 Unknown History tablet Chest Pain Allergies Allergy/AdvReac Type Severity Reaction Status Date / Time Penicillins Allergy ALGY-Anaphy Verified 02/17/23 15:17 laxis Sulfa (Sulfonamide Allergy Unknown Verified 02/17/23 15:17 Antibiotics) fluoxetine [From Prozac] AdvReac Mild stomach Verified 02/17/23 15:17 upset PFSH Acute PFSH: Medical History Acute hyperkalemia Altered mental status Anemia in chronic kidney disease Ascites Nephrogenic ascites Ascites gets regular paracentesis Bilateral hydronephrosis Chronic anemia CVA (cerebral vascular accident) Dilated aortic root End stage renal disease on dialysis GERD (gastroesophageal reflux disease) Gout History of stroke Hypertension Hypoglycemia Hypothyroidism Incomplete bladder emptying Major depressive disorder Malaise Neuropathy, lumbosacral (radicular) Polycystic kidney disease Right bundle branch block (RBBB) on electrocardiogram (ECG) Tobacco use disorder Surgical History AV fistula left arm History of colonoscopy 2019 at [facility] History of surgical procedure Peritoneal dialysis catheter placement by Dr. Kamara 2015 S/P hemodialysis catheter insertion (03/13/20) 23cm long exchanged right IJ Removed on 06/11/2020 Family History Mother Chronic kidney disease (CKD) Stroke Father Cancer lung Brother Hypertension Denies family history of Diabetes CAD (coronary artery disease) Clotting disorder Dementia Hyperlipidemia Psychiatric illness Anesthesia complication Bleeding disorder Lung disease Social History Smoking and tobacco status: current every day smoker cigarettes Packs smoked per day: 1 [ Other cigarette details: Half a pack per day for last 20-30 years] Alcohol intake: never Substance/Drug Use: current Substance/Drug use frequency: few times a week Marital status: Number of children: 1 Current occupational status: disabled Current gender identity: Male Agree to transfusion: Yes Vitals/I&O/Wt Last Vital Signs Temp 98 F 02/19/23 21:41 Pulse 78 02/19/23 23:37 Resp 14 02/19/23 23:37 BP 149/68 02/19/23 23:37 Pulse Ox 98 02/19/23 23:37 O2 Del Method Room Air 02/19/23 23:07 O2 Flow Rate 3 02/19/23 22:34 Weight last 48 hrs Weight 90.718 kg Physical Exam Const: COMMON NORMALS: no acute distress and patient oriented x3 GENERAL APPEARANCE: cooperative HENMT: COMMON NORMALS: normocephalic and Normal external nose present HEAD & SCALP: normocephalic FACE & SINUS: normal facial exam NOSE: Normal external nose present Eye: COMMON NORMALS: Equal, round and reactive pupils present, EOMs intact bilaterally and conjunctivae normal Neck/C-Spine: COMMON NORMALS: full ROM, no lymphadenopathy and no JVD Lymph: LYMPHATIC: no lymphadenopathy noted Chest: COMMONS NORMALS: normal inspection of the chest Resp: COMMON NORMALS: normal respiratory effort, No retractions and No use of accessory muscles AUSCULTATION: wheezes Cardio: COMMON NORMALS: regular rate, regular rhythm, S1 normal heart sound present, S2 normal heart sound present, No murmurs present (Cardio) and Peripheral pulses 2+ throughout RATE: regular rate RHYTHM: regular rhythm HEART SOUNDS: S1 normal heart sound present and S2 normal heart sound present PERIPHERAL PULSES: Peripheral pulses 2+ throughout GI: COMMON NORMALS: Normal to inspection, nondistended, normoactive bowel sounds present, Soft to palpation and non-tender Back/Pelvis: COMMON NORMALS: no CVA tenderness Extremity: COMMON NORMALS: no pedal edema Neuro: COMMON NORMALS: patient oriented x3, CN's II-XII intact bilaterally, moves all extremities, no focal motor deficits and no sensory deficits noted MENINGEAL SIGNS: Yes no meningeal signs Psych: COMMON NORMALS: mental status grossly normal, Normal thought process present, cooperative and speech normal APPEARANCE: Yes well kempt SPEECH: Yes normal speech THOUGHT PROCESS: Normal thought process present Skin: COMMON NORMALS: turgor normal and no jaundice NARRATIVE SKIN EXAM: Left AV fistula is GENERAL SKIN EXAM: turgor normal Data 02/19/23 21:46 02/19/23 21:46 A&P Assessment and plan (1) Acute hyperkalemia: (2) Shortness of breath: Plan Acute hyperkalemia -Received D50, insulin, sodium bicarb -We will recheck potassium -Telemetry monitoring -Nephrology consulted for dialysis in a.m., unless patient has EKG changes as chest pain, resistant hyperkalemia we will do urgent dialysis Shortness of breath -Likely secondary to fluid overload, missing dialysis yesterday -Chest x-ray, Pro-Lionel, CRP, BNP, serial EKGs, troponins, respiratory viral panel, sputum culture End-stage renal disease on dialysis Atrial fibrillation, continue Eliquis, continue amiodarone Hypertension continue home medications Hypothyroidism continue home medications Full code Eliquis for DVT prophylaxis Attestations Medical Necessity Statement*: Patient requires hospitalization, outpatient observation for fluid overload, shortness of breath, acute hyperkalemia Diagnoses Acute hyperkalemia E87.5 Shortness of breath R06.02
[2023-02-20] VITALS (15 sets, daily range): BP systolic 124–216; BP diastolic 64–103; PULSE 66–115; RESP 14–18; TEMP 36–36.9; O2SAT 90–100
--- NOTE | 2023-02-20 00:04 | XRR_ITS ---
PROCEDURE INFORMATION: Exam: XR Chest Exam date and time: 02/20/2023 12:08 AM Age: 57 years old Clinical indication: Shortness of breath; Additional info: SOB TECHNIQUE: Imaging protocol: Radiologic exam of the chest. Views: 1 view. COMPARISON: CR (CHEST, ) 02/14/2023 7:52 PM FINDINGS: Lungs: Patchy bilateral hilar to lower lobe mixed interstitial and airspace infiltrates. Pleural spaces: Unremarkable. No pleural effusion. No pneumothorax. Heart/Mediastinum: Cardiomegaly. Bones/joints: Unremarkable. XR/XR chest 1V portable [id number] IMPRESSION: 1. Patchy bilateral hilar to lower lobe mixed interstitial and airspace infiltrates. 2. Cardiomegaly.
[2023-02-20] MEDS: pantoprazole 40 mg SDV IVP ×2 (00:09→21:08)
[2023-02-20] MEDS: sodium bicarbonate 8.4% 1 mEq/mL 50mL Syr 50 MEQ IVP (00:09)
[2023-02-20 00:47] LABS: Glucose Point of Care 38 mg/dL (70-110)
[2023-02-20] MEDS: dextrose 50% syringe 50 mL (00:50)
[2023-02-20 01:05] LABS: Glucose Point of Care 157 mg/dL (70-110)
[2023-02-20] MEDS: dextrose 5%-sod chloride 0.9% 1,000 ML 125 ML IV (01:15)
[2023-02-20 01:16] LABS: Lactic Sepsis W/Reflex 1.3 mmol/L (0.5-2.2)
[2023-02-20] MEDS: glucagon 1 mg/mL KIT 1 mL IM (01:17)
[2023-02-20] MEDS: dextrose 50% syringe 50 mL IVP (01:18)
[2023-02-20 01:24] LABS: Troponin(5th) Baseline 330 ng/L (0-15)
[2023-02-20 01:28] LABS: Procalcitonin 0.71 ng/mL (0-0.5); Thyroid Stimulating Hormone 11.03 uIU/mL (0.27-4.20)
[2023-02-20 01:41] LABS: C Reactive Protein 20.6 mg/L (0.0-4.9); Potassium 5.1 mmol/L (3.5-5.1)
[2023-02-20 02:08] LABS: NT Pro B Type Natriuretic Pept > 70000 pg/mL (0-125)
[2023-02-20 02:19] LABS: Glucose Point of Care 247 mg/dL (70-110)
--- NOTE | 2023-02-20 02:23 | ECG_ITS ---
[facility] Test Date: 2023-02-20 Pat Name: Navneet Savage Department: Room: 254 Gender: Male In Process Inspector: : 1965 Requested By: Bony Duarte Order Number: [id number] Nate MD: Saurabh Fitzpatrick M.D. Measurements Intervals [place] Rate: 71 P: 83 MO: 168 QRS: -46 QRSD: 106 T: -2 QT: 442 QTc: 483 Interpretive Statements SINUS RHYTHM LEFT ANTERIOR FASCICULAR BLOCK [QRS AXIS <= -45, QR IN I, RS IN II] PROLONGED QT INTERVAL Compared to ECG 02/19/2023 22:42:36 Left anterior fascicular block now present Prolonged QT interval now present Left-axis deviation no longer present Electronically Signed On 02-20-2023 9:41:52 CDT by Saurabh Fitzpatrick M.D. [id number]
[2023-02-20 03:33] LABS: Anion Gap 15.2 (5-19); Blood Urea Nitrogen 47 mg/dL (6-20); Calcium 9.8 mg/dL (8.5-10.5); Carbon Dioxide 31 mmol/L (22-29); Chloride 93 mmol/L (98-107); Glomerular Filtration Rate 9.9 mL/min (90-130); Glucose 187 mg/dL (65-115); Osmolality Calculated 295 mOsm/kg (285-295); Potassium 5.2 mmol/L (3.5-5.1); Sodium 134 mmol/L (136-145); Troponin 5 2HR 314.4 ng/L (0-15); Troponin 5 2HR Delta -15.6 ABS# (0-10)
[2023-02-20 03:39] LABS: Magnesium 2.1 mg/dL (1.7-2.3)
--- NOTE | 2023-02-20 03:44 | USCV_ITS ---
Navneet Savage Age: 57 Gender: M : 1965 Exam Date: 02/20/2023 12:55 Ordering Phys: Bony Duarte MD Technologist: Phu Morales Exam Location: [facility] Indication: stemi BP: 164 / 83 HR: 96 Rhythm: Sinus Technical Quality: Adequate MEASUREMENTS (Male / Female) Normal Values 2D ECHO LVOT Diameter 2.0 cm LV Ejection Fraction MOD 2C 64.7 % LV Ejection Fraction 2C AL 63.9 % LA Diameter 4.2 cm LA Width 4.4 cm LA Height 5.7 cm RA Width 3.7 cm RA Height 5.1 cm Aorta at Sinotubular Diameter 3.0 cm IVC Diameter 2.0 cm M-MODE Aortic Annulus Diameter 2.9 cm LA Ao Ratio MM 1.5 MV E Point Septal Separation 0.6 cm DOPPLER AV Peak Velocity 222.3 cm/s LVOT Peak Velocity 126.0 cm/s AV Area Cont Eq vti 1.8 cm squared AV Area Cont Eq pk 1.8 cm squared MV Peak Velocity 177.0 cm/s MV Area PHT 3.4 cm squared Mitral E to A Ratio 3.7 MV E' Velocity 82.5 cm/s Mitral E to MV E' Ratio 18.9 Mitral E to LV E' Lateral Ratio 21.7 Mitral E to LV E' Septal Ratio 16.7 TR Peak Velocity 207.3 cm/s TR Peak Gradient 17.2 mmHg TR Mean Velocity 161.8 cm/s TR Mean Gradient 11.7 mmHg TR Velocity Time Integral 44.9 cm Right Atrial Pressure 3.0 mmHg Pulmonary Artery Systolic Pressu 20.2 mmHg PV Peak Velocity 115.0 cm/s RV Acceleration Time 0.1 s RV Ejection Time 0.2 s RV AcT/ET 0.5 FINDINGS Left Ventricle Left ventricle is normal in size. LV systolic function is normal with EF 55 to 60%. No regional wall motion abnormalities are seen. Right Ventricle Normal in size and function Right Atrium Normal in size Left Atrium Dilated Mitral Valve Moderate to severe mitral annular calcification. Mild mitral regurgitation. Mild mitral stenosis with mean gradient across mitral valve of 5.2 mmHg Aortic Valve Aortic valve is thickened and calcified . Mild aortic stenosis with aortic valve area 1.81 cm squared and mean gradient across aortic valve of 11.3 mmHg. Tricuspid Valve Mild tricuspid regurgitation. Pulmonary artery systolic pressure is normal. Pulmonic Valve Not well-visualized Pericardium Normal Aorta Ascending aorta is mildly dilated with diameter of 3.57 cm. IVC Appears to be normal CONCLUSIONS LV systolic function is normal with EF of 55 to 60%. Left atrial dilation. Mild mitral regurgitation. Mild mitral stenosis. Mild aortic stenosis. Mild tricuspid regurgitation Ascending aorta is mildly dilated. Compared to prior echocardiogram from 12/2022, mild aortic stenosis is noted. Saurabh Fitzpatrick MD (Electronically Signed) Final Date: 20 February 2023 13:41 S
[2023-02-20 04:03] LABS: Platelet Count 282 10^3/cmm (157-399)
[2023-02-20 04:20] LABS: Glucose Point of Care 122 mg/dL (70-110)
[2023-02-20] MEDS: meropenem 1,000 MG in sodium chloride 0.9% (plus) 50 ML 100 MG IV (04:24)
[2023-02-20] MEDS: aspirin 81 mg EC Tablet PO (04:28)
[2023-02-20] MEDS: vancomycin 750 MG in sodium chloride 0.9% 250 ML 250 MG IV (04:55)
[2023-02-20] MEDS: heparin drip 25,000 UNIT/500 ML PREMIX 25.4 UNIT IV ×2 (05:03→23:57)
[2023-02-20 05:32] LABS: Partial Thromboplastin Time 40.2 SECONDS (23.9-36.7)
--- NOTE | 2023-02-20 05:52 | ECG_ITS ---
[facility] Test Date: 2023-02-20 Pat Name: Navneet Savage Department: Room: 254 Gender: Male Demographer: : 1965 Requested By: Bony Duatre Order Number: [id number] Nate MD: Saurabh Fitzpatrick M.D. Measurements Intervals [place] Rate: 68 P: 69 AL: 164 QRS: -43 QRSD: 108 T: 18 QT: 448 QTc: 478 Interpretive Statements SINUS RHYTHM LEFT AXIS DEVIATION [QRS AXIS < -30] PROLONGED QT INTERVAL Compared to ECG 02/20/2023 02:23:37 Left-axis deviation now present Left anterior fascicular block no longer present Electronically Signed On 02-20-2023 9:40:47 CDT by Saurabh Fitzpatrick M.D. [id number]
[2023-02-20 06:17] LABS: Glucose Point of Care 65 mg/dL (70-110)
--- NOTE | 2023-02-20 06:42 | PC.NURSE ---
Dr Duarte notified of most recent blood sugar a cup of orange juice was given and the D5 started back at [address] Duarte verbalized understanding and no further order were received.
--- NOTE | 2023-02-20 08:08 | PM.PN ---
Subjective Subjective: This morning not complaining of chest pain Currently on heparin drip Going for dialysis Potassium improved Patient is stating that he missed his Wednesday dialysis session Not complaining of active chest pain Fatigued and lethargic Still smoking, does not drink alcohol Lives alone Vitals/I&O/Wt Last Vital Signs Temp 97.4 F L 02/20/23 07:00 Pulse 68 02/20/23 07:00 Resp 18 02/20/23 07:00 BP 164/83 02/20/23 07:00 Pulse Ox 93 02/20/23 07:00 O2 Del Method Nasal Cannula 02/20/23 07:00 O2 Flow Rate 3 02/20/23 00:09 02/19/23 02/20/23 02/20/23 22:59 06:59 14:59 Intake Total 727.083 / 727.083 Balance 727.083 / 727.083 Weight last 48 hrs Weight 89.902 kg Weight 90.718 kg Physical Exam Narrative: Patient is showing signs of mild fluid overload GCS 15 Nonfocal neuro exam Pleasant and cooperative Fatigue present No active chest pain S1, S2 variable No active shortness of breath he was on room air when I saw him Abdomen soft slightly distended Data 02/20/23 02:55 02/20/23 02:55 Micro: Microbiology 02/19/23 12:42 Blood Culture - Preliminary Blood SPECIMEN COLLECTED 02/19/23 12:35 Blood Culture - Preliminary Blood SPECIMEN COLLECTED A&P Assessment and plan (1) Shortness of breath: (2) Chest pain: Qualifiers: Chest pain type: unspecified Qualified Code(s): R07.9 - Chest pain, unspecified (3) Elevated troponin I level: (4) Hypertension: Qualifiers: Hypertension type: unspecified Qualified Code(s): I10 - Essential (primary) hypertension (5) Acute hyperkalemia: (6) Atrial fibrillation with RVR: (7) Accelerated hypertension: (8) Acute hyperkalemia: (9) End stage renal disease on dialysis: (10) Hypertension: (11) Polycystic kidney disease: (12) Right bundle branch block (RBBB) on electrocardiogram (ECG): (13) Anemia in chronic kidney disease: Plan My plan is to keep patient in the hospital to finish heparin 48 hours Patient is going for dialysis No active chest pain Troponin leakage could be related to underlying end-stage renal disease missing dialysis session No active chest pain at the time of evaluation EKG showing prolonged QT interval potassium is 5.2, magnesium is 2.1, Avoid QT prolonging medication QT interval around 483 Patient is still smoking, lives alone I would like to keep him here until he finish his heparin drip continue renal dialysis diet Nephro consulted Patient takes Eliquis for his A-fib however currently he is on heparin Hypertension: Optimize antihypertensive regimen Patient is full code Attestations Medical Necessity Statement*: Continue medical management Diagnoses Shortness of breath R06.02 Chest pain R07.9 Chest pain type: unspecified Elevated troponin I level R77.8 Hypertension I10 Hypertension type: unspecified Acute hyperkalemia E87.5 Atrial fibrillation with RVR I48.91 Accelerated hypertension I10 End stage renal disease on dialysis N18.6; Z99.2 Polycystic kidney disease Q61.3 Right bundle branch block (RBBB) on electrocardiogram (ECG) I45.10 Anemia in chronic kidney disease N18.9; D63.1
--- NOTE | 2023-02-20 09:56 | P.CONIM_ITS ---
Providers/Reason For Consult Consulting Physician/Specialty*: kommana /nEPHROLOGY Reason for Consult*: ESRD Attending Physician: Deborah Singh MD Primary Care Provider: Randolph Ortiz MD History of Present Illness History of Present Illness Navneet Savage is a 57 year old male With past medical history of coronary artery disease with multiple stents, atrial fibrillation on chronic anticoagulation with Eliquis, end-stage renal disease on hemodialysis per Wednesday schedule, liver cirrhosis with ascites and multiple paracentesis in the past presented to the hospital due to cough and shortness of breath. Patient missed hemodialysis yesterday. He underwent paracentesis on Wednesday. Lab data significant for potassium of 6.3. Chest x-ray has showed bilateral hilar lower lobe airspace infiltrates consistent with pneumonia. He is started on vancomycin and meropenem. He is currently getting dialysis and tolerating well. Review of Systems Narrative: Other ROS negative Medications/Allergies Home Medications Medication Instructions Recorded Confirmed Last Taken Type cinacalcet 30 mg tablet 30 mg PO DAILY 05/12/22 02/20/23 02/15/23 History cholecalciferol (vitamin D3) 125 125 mcg PO DAILY 06/18/22 02/20/23 02/15/23 History mcg (5,000 unit) capsule ferric citrate 210 mg iron tablet 2 tab PO TID 06/22/22 02/20/23 02/15/23 History (Auryxia) vit B,C-folic ac 800 mcg-zinc 12.5 1 tab PO DAILY 06/22/22 02/20/23 02/15/23 History mg-selen-D3 2,000 unit-vit E tablet (RenaPlex-D) clonidine HCl 0.2 mg tablet 0.1 mg PO BID 30 days #60 tabs 12/31/22 02/20/23 02/13/23 Rx hydralazine 50 mg tablet 50 mg PO TID 30 days #90 tabs 12/31/22 02/20/23 02/15/23 Rx levothyroxine 75 mcg tablet 75 mcg PO DAILY 30 days #60 tabs 12/31/22 02/20/23 02/15/23 Rx hydroxyzine HCl 25 mg tablet 25 mg PO QID PRN Itching 01/06/23 02/20/23 02/16/23 History ondansetron 4 mg disintegrating 4 mg PO Q8H PRN nausea and 01/30/23 02/20/23 02/15/23 Rx tablet vomiting #14 tabs apixaban 5 mg tablet (Eliquis) 5 mg PO DAILY 02/02/23 02/20/23 02/15/23 History clopidogrel 75 mg tablet 75 mg PO DAILY 02/02/23 02/20/23 02/15/23 History amiodarone 400 mg tablet 400 mg PO DAILY 02/08/23 02/20/23 02/15/23 History isosorbide mononitrate 60 mg 30 mg PO DAILY 02/08/23 02/20/23 02/15/23 History tablet,extended release 24 hr lisinopril 20 mg tablet 20 mg PO DAILY 02/16/23 02/20/23 02/15/23 History metoprolol tartrate 50 mg tablet 50 mg PO DAILY 02/16/23 02/20/23 02/15/23 History nitroglycerin 0.4 mg sublingual 0.4 mg sublingual DIRECTED PRN 02/16/23 02/20/23 Unknown History tablet Chest Pain Allergies Allergy/AdvReac Type Severity Reaction Status Date / Time Penicillins Allergy ALGY-Anaphy Verified 02/17/23 15:17 laxis Sulfa (Sulfonamide Allergy Unknown Verified 02/17/23 15:17 Antibiotics) fluoxetine [From Prozac] AdvReac Mild stomach Verified 02/17/23 15:17 upset Current Medications Generic Name Dose Route Start Last Admin Trade Name Freq PRN Reason Stop Dose Admin Aspirin 81 mg 02/20/23 03:50 02/20/23 04:28 Aspirin 81 Mg Ec Tablet PO 81 mg DAILY MINNA Administration Dextrose/Sodium Chloride 1,000 mls @ 125 mls/hr 02/20/23 01:00 02/20/23 06:16 Dextrose 5%-Sod Chloride 0.9% IV 125 mls/hr .Q8H MINNA Infusion Meropenem 1,000 mg/ Sodium 50 mls @ 100 mls/hr 02/20/23 03:45 02/20/23 05:08 Chloride IV Infused Q8H MINNA Infusion Protocol Heparin Sodium/Sodium Chloride 25,000 unit in 500 mls @ 0 mls/hr 02/20/23 03:45 02/20/23 05:03 Heparin Drip IV 14 unit/kg/hr .Q0M MINNA 25.4 mls/hr Administration Protocol Per Protocol Vancomycin HCl 750 mg/ Sodium 250 mls @ 250 mls/hr 02/20/23 04:00 02/20/23 06:15 Chloride IV Infused Q36H MINNA Infusion Pantoprazole Sodium 40 mg 02/19/23 23:49 02/20/23 00:09 Pantoprazole 40 Mg Sdv IVP 40 mg Q24H MINNA Administration PFSH Acute PFSH: Medical History Acute hyperkalemia Altered mental status Anemia in chronic kidney disease Ascites Nephrogenic ascites Ascites gets regular paracentesis Bilateral hydronephrosis Chronic anemia CVA (cerebral vascular accident) Dilated aortic root End stage renal disease on dialysis GERD (gastroesophageal reflux disease) Gout History of stroke Hypertension Hypoglycemia Hypothyroidism Incomplete bladder emptying Major depressive disorder Malaise Neuropathy, lumbosacral (radicular) Polycystic kidney disease Right bundle branch block (RBBB) on electrocardiogram (ECG) Tobacco use disorder Surgical History AV fistula left arm History of colonoscopy 2019 at [facility] History of surgical procedure Peritoneal dialysis catheter placement by Dr. Kamara 2016 S/P hemodialysis catheter insertion (03/13/20) 23cm long exchanged right IJ Removed on 06/11/2020 Family History Mother Chronic kidney disease (CKD) Stroke Father Cancer lung Brother Hypertension Denies family history of Diabetes CAD (coronary artery disease) Clotting disorder Dementia Hyperlipidemia Psychiatric illness Anesthesia complication Bleeding disorder Lung disease Social History Smoking and tobacco status: current every day smoker cigarettes Packs smoked per day: 1 [ Other cigarette details: Half a pack per day for last 20-30 years] Alcohol intake: never Substance/Drug Use: current Substance/Drug use frequency: few times a week Marital status: Number of children: 1 Current occupational status: disabled Current gender identity: Male Agree to transfusion: Yes Vitals/I&O/Wt Last Vital Signs Temp 97.4 F L 02/20/23 07:00 Pulse 68 02/20/23 07:00 Resp 18 02/20/23 07:00 BP 164/83 02/20/23 07:00 Pulse Ox 93 02/20/23 07:00 O2 Del Method Nasal Cannula 02/20/23 07:00 O2 Flow Rate 3 02/20/23 00:09 02/19/23 02/20/23 02/20/23 22:59 06:59 14:59 Intake Total 727.083 / 727.083 240 / 240 Balance 727.083 / 727.083 240 / 240 Weight last 48 hrs Weight 89.902 kg Weight 90.718 kg Physical Exam Narrative: Awake, alert, mild distress HEENT S1-S2 regular rate and rhythm per report Lungs-crackles bilaterally per report Has edema. Data 02/20/23 02:55 02/20/23 02:55 Micro: Microbiology 02/19/23 12:42 Blood Culture - Preliminary Blood SPECIMEN COLLECTED 02/19/23 12:35 Blood Culture - Preliminary Blood SPECIMEN COLLECTED A&P Assessment and plan (1) End stage renal disease on dialysis: Plan 1. End-stage renal disease: On MWF schedule as outpatient, missed HD yesterday, plan for HD. With maximum ultrafiltration as tolerated 2. Acute on chronic respiratory failure: Multifactorial, he has pneumonia and volume overload 3. Hyperkalemia: Low potassium diet, medically treated and should improve with HD 4. Anemia: In hemoglobin of 9.5, will give RADHA 5. History of coronary artery disease with stents 6 history of A-fib 7. history of cirrhosis with recurrent ascites and paracentesis Patient evaluated using audiovisual cart. Time spent 40 minutes Coding Level of Care Code Acute Code for Chg Fwd Diagnoses End stage renal disease on dialysis N18.6; Z99.2
[2023-02-20 11:12] LABS: Glucose Point of Care 74 mg/dL (70-110)
[2023-02-20] MEDS: isosorbide mononitrate ER 60 mg Tablet 30 MG PO (11:32)
[2023-02-20] MEDS: metoprolol tartrate 50 mg Tablet PO (11:33)
[2023-02-20] MEDS: clopidogrel 75 mg Tablet PO (11:33)
[2023-02-20] MEDS: levothyroxine 75 mcg Tablet PO (11:33)
[2023-02-20] MEDS: hyDRALAzine 50 mg Tablet PO ×3 (11:33→20:23)
[2023-02-20] MEDS: cloNIDine 0.1 mg Tablet PO ×2 (11:34→17:26)
[2023-02-20] MEDS: lisinopril 20 mg Tablet PO (11:34)
[2023-02-20 11:39] LABS: Partial Thromboplastin Time 71.6 SECONDS (23.9-36.7)
[2023-02-20 16:25] LABS: Glucose Point of Care 88 mg/dL (70-110)
[2023-02-20] MEDS: meropenem 500 MG in sodium chloride 0.9% (plus) 50 ML 100 MG IV (18:51)
[2023-02-20 20:04] LABS: Adenovirus Not Detected (NOT DETECT); Chlamydia Pneumoniae Not Detected (NOT DETECT); Coronavirus 229E,HKU1,NL63,OC4 Not Detected (NOT DETECT); Human Metapneumovirus Not Detected (NOT DETECT); Human Rhinovirus/Enterovirus Not Detected (NOT DETECT); Influenza A Not Detected (NOT DETECT); Influenza A H1 Not Detected (NOT DETECT); Influenza A H1-2009 Not Detected (NOT DETECT); Influenza A H3 Not Detected (NOT DETECT); Influenza B Not Detected (NOT DETECT); Mycoplasma Pneumoniae Not Detected (NOT DETECT); Parainfluenza Virus Type 1 Not Detected (NOT DETECT); Parainfluenza Virus Type 2 Not Detected (NOT DETECT); Parainfluenza Virus Type 3 Not Detected (NOT DETECT); Parainfluenza Virus Type 4 Not Detected (NOT DETECT); Respiratory Syncytial Virus A Not Detected (NOT DETECT); Respiratory Syncytial Virus B Not Detected (NOT DETECT); SARS-COV-2 Not Detected (NOT DETECT)
[2023-02-20 20:57] LABS: Partial Thromboplastin Time 63.4 SECONDS (23.9-36.7)
[2023-02-20 21:16] LABS: Glucose Point of Care 91 mg/dL (70-110)
--- NOTE | 2023-02-20 22:32 | PC.NURSE ---
Unable to collect UA. Patient has not voided.
[2023-02-21 03:33] LABS: Basophils % 0.6 %; Eosinophils # 0.1 10^3/uL (0.0-0.8); Eosinophils % 1.9 %; Hematocrit 28.4 % (37-53); Lymphocytes # 1.4 10^3/uL (0.8-4.8); Lymphocytes % 21.5 %; Mean Corpuscular HGB Conc 31.7 g/dL (30-55); Mean Corpuscular Hemoglobin 30.1 pg (27-33); Mean Platelet Volume 9.3 fL (7.4-10.4); Monocytes # 0.7 10^3/uL (0.2-0.9); Monocytes % 11.2 %; Neutrophils % 64.5 %; Nucleated Red Blood Cells % 0 %; Platelet Count 261 10^3/cmm (157-399); Red Blood Count 2.99 10^6/uL (3.85-5.65); Red Cell Distribution Width 16.3 % (12.1-15.1); White Blood Count 6.36 10^3/uL (3.29-11.43)
[2023-02-21] MEDS: meropenem 500 MG in sodium chloride 0.9% (plus) 50 ML 100 MG IV (03:43)
[2023-02-21 03:53] LABS: Anion Gap 14.8 (5-19); Blood Urea Nitrogen 33 mg/dL (6-20); Calcium 9.5 mg/dL (8.5-10.5); Carbon Dioxide 29 mmol/L (22-29); Chloride 94 mmol/L (98-107); Glomerular Filtration Rate 12.6 mL/min (90-130); Glucose 83 mg/dL (65-115); Osmolality Calculated 280 mOsm/kg (285-295); Potassium 5.8 mmol/L (3.5-5.1); Sodium 132 mmol/L (136-145)
[2023-02-21 04:00] VITALS: BP 171/89; PULSE 72; RESP 16; TEMP 36.6; O2SAT 96
[2023-02-21 04:09] LABS: Partial Thromboplastin Time 74.1 SECONDS (23.9-36.7)
[2023-02-21 05:42] VITALS: PULSE 66
[2023-02-21 06:30] LABS: Glucose Point of Care 103 mg/dL (70-110)
[2023-02-21 07:28] VITALS: BP 152/74; PULSE 69; RESP 19; TEMP 36.4; O2SAT 97
--- NOTE | 2023-02-21 07:29 | PM.PN ---
Subjective Subjective: s/p HD yesterday Medications: Reviewed: Yes Vitals/I&O/Wt Last Vital Signs Temp 97.9 F 02/21/23 04:00 Pulse 66 02/21/23 05:42 Resp 16 02/21/23 04:00 BP 171/89 02/21/23 04:00 Pulse Ox 96 02/21/23 04:00 O2 Del Method Nasal Cannula 02/21/23 04:00 O2 Flow Rate 3 02/20/23 13:07 02/20/23 02/21/23 02/21/23 22:59 06:59 14:59 Intake Total 530 / 2322.917 530.06 / 2852.977 Balance 530 / -1680.083 530.06 / -1150.023 Weight last 48 hrs Weight 87.8 kg Weight 89.902 kg Weight 90.718 kg Physical Exam Narrative: Awake, alert, mild distress HEENT S1-S2 regular rate and rhythm per report Lungs-crackles bilaterally per report Has edema. Data 02/21/23 03:20 02/21/23 03:20 Micro: Microbiology 02/19/23 12:42 Blood Culture - Preliminary Blood NEGATIVE TO DATE 02/19/23 12:35 Blood Culture - Preliminary Blood NEGATIVE TO DATE A&P Assessment and plan (1) End stage renal disease on dialysis: Plan 1. End-stage renal disease: On [facility] schedule as outpatient, s/p HD yesterday , HD again today 2. Acute on chronic respiratory failure: Multifactorial, he has pneumonia and volume overload 3. Hyperkalemia: Low potassium diet, medically treated and should improve with HD 4. Anemia: In hemoglobin of 9.0, will give RADHA 5. History of coronary artery disease with stents 6 history of A-fib 7. history of cirrhosis with recurrent ascites and paracentesis Patient evaluated using audiovisual cart. Time spent 40 minutes Attestations Medical Necessity Statement*: per mediicne team Coding Level of Care Code Acute Code for Chg Fwd Diagnoses End stage renal disease on dialysis N18.6; Z99.2
[2023-02-21 08:00] VITALS: PULSE 84; RESP 16; O2SAT 98
[2023-02-21 08:46] VITALS: BP 152/74
[2023-02-21] MEDS: cloNIDine 0.1 mg Tablet PO (08:46)
[2023-02-21] MEDS: levothyroxine 75 mcg Tablet PO (08:47)
[2023-02-21] MEDS: lisinopril 20 mg Tablet PO (08:47)
[2023-02-21] MEDS: clopidogrel 75 mg Tablet PO (08:47)
[2023-02-21] MEDS: isosorbide mononitrate ER 60 mg Tablet 30 MG PO (08:47)
[2023-02-21] MEDS: hyDRALAzine 50 mg Tablet PO (08:47)
[2023-02-21] MEDS: aspirin 81 mg EC Tablet PO (08:47)
[2023-02-21] MEDS: metoprolol tartrate 50 mg Tablet PO (08:47)
--- NOTE | 2023-02-21 10:13 | P.DS_ITS ---
Discharge Providers Date of Admission: 02/19/23 22:53 Date of Discharge: February 21, 2023 Attending Provider at Admission: Bony Duarte MD Attending Provider at Discharge: Deborah Singh MD Primary Care Provider: Randolph Ortiz MD Diagnoses at Discharge Discharge Diagnosis (1) End stage renal disease on dialysis: Status: Acute Reason for Visit Reason for Visit: missed dialysis, lightheaded Hospital Course Hospital Course 57-year-old male with end-stage renal disease, missed dialysis session and present to the hospital for worsening of shortness of breath, he never complained of any chest pain, he was diagnosed with non-STEMI he was put on heparin drip, he never experienced any chest pain during hospitalization, patient stated that he never felt better before after getting 2 session of dialysis in the hospital, he was discharged home with his Eliquis and antiplatelet medication and antihypertensive regimen. At home uses 2 L of oxygen, he is being discharged with stable hemodynamics. Troponin leak with underlying end-stage renal disease I have informed and counseled patient to come to the ER for an angiogram in case he experiences any kind of chest discomfort or persistent shortness of breath after dialysis sessions. At this point he is not willing to stay for an angiogram. Patient has shown complete understanding of the statement, he is an active smoker not motivated to quit smoking at this point Please note, patient was diagnosed with pneumonia and sepsis, he remained afebrile, no significant leukocytosis, I will give him doxycycline 5-day regimen. Echo showed EF 55 to 60% without significant wall motion abnormality, Mild Physical Exam Narrative: Awake and alert Signs of fluid load improving Currently on 2 L GCS 15 Abdomen soft S1, S2 No active chest pain Discharge Data Studies Completed and Pending Completed Studies During Hospitalization Category Date Time Status XR chest 1V portable [id number] Routine Exams 02/20/23 00:04 Completed CV. echo complete* [id number] Routine Ultrasound 02/20/23 03:44 Completed Pending at discharge Category Date Time Status Blood Culture Routine Lab 02/19/23 12:42 Results PTT [Partial Thromboplastin Time] Timed Lab 02/21/23 10:00 Ordered Platelet Count Q2D Lab 02/22/23 04:00 Ordered Platelet Count Q2D Lab 02/24/23 04:00 Ordered Urinalysis Routine Lab 02/19/23 23:49 Uncollected Radiology Impressions Chest X-Ray 02/20/23 00:04 IMPRESSION: 1. Patchy bilateral hilar to lower lobe mixed interstitial and airspace infiltrates. 2. Cardiomegaly. Laboratory Results WBC 6.36 10^3/uL (3.29-11.43) 02/21/23 03:20 RBC 2.99 10^6/uL (3.85-5.65) L 02/21/23 03:20 Hgb 9.00 g/dL (11.27-16.99) L 02/21/23 03:20 Hct 28.4 % (37-53) L 02/21/23 03:20 MCV 95.0 fl (82-101) 02/21/23 03:20 MCH 30.1 pg (27-33) 02/21/23 03:20 MCHC 31.7 g/dL (30-55) 02/21/23 03:20 RDW 16.3 % (12.1-15.1) H 02/21/23 03:20 Plt Count 261 10^3/cmm (157-399) 02/21/23 03:20 MPV 9.3 fL (7.4-10.4) 02/21/23 03:20 Neut % (Auto) 64.5 % 02/21/23 03:20 Lymph % (Auto) 21.5 % 02/21/23 03:20 [place] % (Auto) 11.2 % 02/21/23 03:20 Eos % (Auto) 1.9 % 02/21/23 03:20 Baso % (Auto) 0.6 % 02/21/23 03:20 Neut # (Auto) 4.10 10^3/uL (1.8-7.7) 02/21/23 03:20 Lymph # (Auto) 1.4 10^3/uL (0.8-4.8) 02/21/23 03:20 [place] # (Auto) 0.7 10^3/uL (0.2-0.9) 02/21/23 03:20 Eos # (Auto) 0.1 10^3/uL (0.0-0.8) 02/21/23 03:20 Baso # (Auto) 0.0 10^3/uL (0.0-0.1) 02/21/23 03:20 Nucleated RBC % (auto) 0 % 02/21/23 03:20 Nucleated RBCs # 0.0 /100WBC 02/21/23 03:20 APTT 74.1 SECONDS (23.9-36.7) H 02/21/23 03:20 Sodium 132 mmol/L (136-145) L 02/21/23 03:20 Potassium 5.8 mmol/L (3.5-5.1) H 02/21/23 03:20 Chloride 94 mmol/L (98-107) L 02/21/23 03:20 Carbon Dioxide 29 mmol/L (22-29) 02/21/23 03:20 Anion Gap 14.8 (5-19) 02/21/23 03:20 BUN 33 mg/dL (6-20) H 02/21/23 03:20 Creatinine 4.8 mg/dL (0.7-1.2) H 02/21/23 03:20 GFR Calculation 12.6 mL/min (90-130) L 02/21/23 03:20 Glucose 83 mg/dL (65-115) 02/21/23 03:20 POC Glucose 103 mg/dL (70-110) 02/21/23 06:21 Calculated Osmolality 280 mOsm/kg (285-295) L 02/21/23 03:20 Lactic Acid 1.3 mmol/L (0.5-2.2) 02/20/23 00:42 Calcium 9.5 mg/dL (8.5-10.5) 02/21/23 03:20 Magnesium 2.1 mg/dL (1.7-2.3) 02/20/23 02:55 Total Bilirubin 0.4 mg/dL (0.15-1.2) 02/19/23 21:46 AST 15 U/L (0-40) 02/19/23 21:46 ALT < 5 U/L (0-41) 02/19/23 21:46 Alkaline Phosphatase 113 U/L (40-130) 02/19/23 21:46 Troponin T Baseline 330 ng/L (0-15) H* 02/20/23 00:42 Troponin T 120 Minute 314.4 ng/L (0-15) H 02/20/23 02:55 Delta Troponin T -15.6 ABS# (0-10) L 02/20/23 02:55 Troponin T Hi Sens 6Hr 286.0 ng/L (0-15) H 02/20/23 06:31 Troponin T Hi Sens 6Hr Delta -44.0 ng/L (0-12) L 02/20/23 06:31 C-Reactive Protein 20.6 mg/L (0.0-4.9) H 02/20/23 00:42 NT-Pro-B Natriuret Pep > 48603 pg/mL (0-125) H 02/20/23 00:42 Total Protein 6.2 g/dL (6.6-8.7) L 02/19/23 21:46 Albumin 3.3 g/dL (3.5-5.2) L 02/19/23 21:46 Globulin 2.9 g/dL (1.3-4.6) 02/19/23 21:46 Procalcitonin 0.71 ng/mL (0-0.5) H 02/20/23 00:42 TSH 11.03 uIU/mL (0.27-4.20) H 02/20/23 00:42 Nasal Influ A H1 2008 PCR Not detected (NOT DETECT) 02/19/23 16:13 Adenovirus (PCR) Not detected (NOT DETECT) 02/19/23 16:13 C. pneumoniae DNA (PCR) Not detected (NOT DETECT) 02/19/23 16:13 Coronavirus 229E (PCR) Not detected (NOT DETECT) 02/19/23 16:13 Human Metapneumovir PCR Not detected (NOT DETECT) 02/19/23 16:13 Influenza A (H1) PCR Not detected (NOT DETECT) 02/19/23 16:13 Influenza A (H3) PCR Not detected (NOT DETECT) 02/19/23 16:13 Influenza Type A (PCR) Not detected (NOT DETECT) 02/19/23 16:13 Influenza Type B (PCR) Not detected (NOT DETECT) 02/19/23 16:13 M. pneumoniae (PCR) Not detected (NOT DETECT) 02/19/23 16:13 Parainfluenza 1 (PCR) Not detected (NOT DETECT) 02/19/23 16:13 Parainfluenza 2 (PCR) Not detected (NOT DETECT) 02/19/23 16:13 Parainfluenza 3 (PCR) Not detected (NOT DETECT) 02/19/23 16:13 Parainfluenza 4 (PCR) Not detected (NOT DETECT) 02/19/23 16:13 RSV Type A (PCR) Not detected (NOT DETECT) 02/19/23 16:13 RSV Type B (PCR) Not detected (NOT DETECT) 02/19/23 16:13 Entero/Rhino (PCR) Not detected (NOT DETECT) 02/19/23 16:13 SARS-CoV-2 (PCR) Not detected (NOT DETECT) 02/19/23 16:13 Vitals Last Vital Signs Temp 97.5 F L 02/21/23 07:28 Pulse 84 02/21/23 08:00 Resp 16 02/21/23 08:00 BP 152/74 02/21/23 08:46 Pulse Ox 98 02/21/23 08:00 O2 Del Method Nasal Cannula 02/21/23 08:00 O2 Flow Rate 3 02/21/23 08:00 Discharge Plan Discharge Patient Disposition: Home Condition: Stable Prescriptions: No Action cholecalciferol (vitamin D3) 125 mcg (5,000 unit) capsule 125 mcg PO DAILY cinacalcet 30 mg tablet 30 mg PO DAILY clopidogrel 75 mg tablet 75 mg PO DAILY Eliquis 5 mg tablet 5 mg PO DAILY clonidine HCl 0.2 mg tablet 0.1 mg PO BID 30 Days Qty: 60 4RF levothyroxine 75 mcg tablet 75 mcg PO DAILY 30 Days Qty: 60 0RF hydralazine 50 mg tablet 50 mg PO TID 30 Days Qty: 90 0RF hydroxyzine HCl 25 mg tablet 25 mg PO QID PRN (Reason: Itching) ondansetron 4 mg tablet,disintegrating 4 mg PO Q8H PRN (Reason: nausea and vomiting) Qty: 14 0RF Auryxia 210 mg iron tablet 2 tab PO TID RenaPlex-D 800 mcg-12.5 mg -2,000 unit tablet 1 tab PO DAILY amiodarone 400 mg tablet 400 mg PO DAILY isosorbide mononitrate 60 mg tablet extended release 24 hr 30 mg PO DAILY lisinopril 20 mg Tablet 20 mg PO DAILY metoprolol tartrate 50 mg tablet 50 mg PO DAILY nitroglycerin 0.4 mg tablet, sublingual 0.4 mg sublingual DIRECTED PRN (Reason: Chest Pain) Discharge Orders: Discharge Order (Routine); Ordered 02/21/23 Ordered By: Deborah Singh Referrals: Randolph Ortiz MD [Primary Care Provider] - 7-10 days Discharge Diet: Cardiac Discharge Activity: Increase activity as tolerated Patient Instructions: Dialysis Diet (GEN), Hemodialysis (GEN), Opioid Safety Discharge Attestations Time Spent in Discharge Care*: greater than 30 min Quality Metrics Clinical Quality Measures [ No reported AMI, CVA or VTE this stay] Coding Level of Care Code Acute Code for Chg Fwd Diagnoses End stage renal disease on dialysis N18.6; Z99.2
--- NOTE | 2023-02-21 10:19 | PC.HD ---
Dialysis ordered due to pt's K+ 5.8, however when I went to get the patient he said he was told he would be going home in 2 hours and has already called for his ride. When asked if he would come for treatment before leaving he said no, he couldn't change their (people coming to get him) plans. Patient's nurse was not told pt was to discharge and he still has his heparin gtt running. Dr Pak notified of refusal, patient's nurse will notify Dr Oliva.
[2023-02-21 11:06] LABS: Partial Thromboplastin Time 52.7 SECONDS (23.9-36.7)
== END 2023-02-21 11:17 | disposition home or self-care (01) ==
LOC: ER 22:37 → MEDSURG 22:53
PROVIDERS: Admitting Provider Family Medicine; Emergency Provider Emergency Medicine; PCP Family Medicine; Visit Provider Internal Medicine
DX: I12.9 Hypertensive chronic kidney disease with stage 1 through stage 4 chronic kidney disease, or unspecified chronic kidney disease (principal); N18.6 End stage renal disease; Z99.2 Dependence on renal dialysis; F17.210 Nicotine dependence, cigarettes, uncomplicated; J96.20 Acute and chronic respiratory failure, unspecified whether with hypoxia or hypercapnia; E87.5 Hyperkalemia; D63.1 Anemia in chronic kidney disease; I25.10 Atherosclerotic heart disease of native coronary artery without angina pectoris; Z95.5 Presence of coronary angioplasty implant and graft; I48.91 Unspecified atrial fibrillation; Z79.01 Long term (current) use of anticoagulants; K74.60 Unspecified cirrhosis of liver; Z86.73 Personal history of transient ischemic attack (TIA), and cerebral infarction without residual deficits; E03.9 Hypothyroidism, unspecified; I34.0 Nonrheumatic mitral (valve) insufficiency; I35.0 Nonrheumatic aortic (valve) stenosis; I07.1 Rheumatic tricuspid insufficiency; I44.4 Left anterior fascicular block; Z79.84 Long term (current) use of oral hypoglycemic drugs
CPT/HCPCS: 36415; 36416; 71045; 80048; 80053; 82962; 83605; 83735; 83880; 84132; 84145; 84443; 84484; 85025; 85049; 85730; 86140; 87040; 87486; 87581; 87633; 90935; 93005; 93306; 94664; 96361; 96365; 96366; 96367; 96372; 96375; 99285; C9113; G0378; J0360; J1610; J1644; J1815; J2185; J3370; J7042; J7050; Q3014

== ENCOUNTER → 2023-02-23 10:56 | Day surgery (SDC) | payer MEDICARE, MEDICAID, SELFPAY ==
--- NOTE | 2023-02-23 11:01 | US_ITS ---
WS: [id number] ULTRASOUND-GUIDED THERAPEUTIC PARACENTESIS Procedure, risks, and complications have been explained to the patient. Consent is obtained. Utilizing aseptic technique and 1% buffered lidocaine, a small dermatome was made through which a 5 F rench Yueh catheter was inserted. Approximately 2800 ml of clear peritoneal fluid was obtained witho ut difficulty. No complications encountered. IMPRESSION: Uncomplicated paracentesis yielding 2800 ml of peritoneal fluid.
[2023-02-23 11:07] VITALS: BP 126/67; PULSE 66; RESP 16; TEMP 36.8; O2SAT 98
[2023-02-23] MEDS: albumin 75 G/300 ML BAG 100 G IV (12:25)
== END ==
PROVIDERS: Radiology Diagnostic Radiology; PCP Family Medicine; Visit Provider Internal Medicine Nephrology
PROC: (CPT 49082; principal; 2023-02-23 12:00)
DX: R18.8 Other ascites (principal)
CPT/HCPCS: 49083; 96365; P9046

== ENCOUNTER 2023-02-24 01:43 | Emergency (ER) | payer MEDICARE, MEDICAID, SELFPAY ==
[2023-02-24 01:44] VITALS: BP 121/63; PULSE 74; RESP 20; TEMP 36.7; O2SAT 91; BMI 28.1
--- NOTE | 2023-02-24 01:44 | ECG_ITS ---
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 Measurements Intervals [place] Rate: 73 P: 58 MO: 154 QRS: -27 QRSD: 98 T: -7 QT: 417 QTc: 460 Interpretive Statements SINUS RHYTHM BORDERLINE LEFT AXIS DEVIATION [QRS AXIS < -20] NONSPECIFIC T-WAVE ABNORMALITY Compared to ECG 02/20/2023 05:17:39 T-wave abnormality now present Prolonged QT interval no longer present Electronically Signed On 02-24-2023 8:27:01 CDT by Saurabh Fitzpatrick M.D. [id number]
--- NOTE | 2023-02-24 01:44 | XRR_ITS ---
PROCEDURE INFORMATION: Exam: XR Chest Exam date and time: 02/24/2023 2:00 AM Age: 57 years old Clinical indication: Chest wall pain; Patient HX: Chest pain PT states thawt he had fluid removed from his abdomen this morning; Additional info: Cp TECHNIQUE: Imaging protocol: Radiologic exam of the chest. Views: 1 view. COMPARISON: CR (CHEST, ) 02/20/2023 12:08 AM FINDINGS: Lungs: Unremarkable. No consolidation. Pleural spaces: Unremarkable. No pleural effusion. No pneumothorax. Heart/Mediastinum: Cardiomegaly. Bones/joints: Unremarkable. XR/XR chest 1V portable [id number] IMPRESSION: Cardiomegaly. No acute process
--- NOTE | 2023-02-24 01:51 | ED_ITS ---
HPI - Chest Pain General: Chief Complaint: Chest Pain Stated Complaint: CP Time Seen by Provider: 02/24/23 01:44 Source: patient and EMS Mode of arrival: EMS Limitations: no limitations History of Present Illness: Patient is a 57-year-old male who presents the emergency room via EMS for chest pain. Patient states chest pain has been lasting for the past 3 to 4 days. States he woke up approximately an hour ago with chest pain 10/10. Past medical history includes STEMI approximately 1 to 2 months ago. In route, patient received 325 ASA and 1 sublingual nitro. Patient reports 0/10 pain on pain scale at this time and states nitro relieved pain. No other complaints at this time. MD complaint: chest pain Pertinent past history: prior MO Prior episodes: No Associated symptoms: Deny abdominal pain, dyspnea, fever(s), nausea or vomiting Review of Systems Const: Denies: fever(s) or chills ENMT: Denies: throat pain or dental pain Card: Reports: chest pain Resp: Denies: dyspnea GI: Denies: abdominal pain, nausea, vomiting or diarrhea Musc: Denies: neck pain or back pain Skin/Breast: Denies: rash Neuro: Denies: headache(s) PFSH ED PFSH: Medical History Accelerated hypertension Acute hyperkalemia Acute hyperkalemia Acute hyperkalemia Altered mental status Anemia in chronic kidney disease Ascites Nephrogenic ascites Ascites gets regular paracentesis Atrial fibrillation with RVR Bilateral hydronephrosis Chest pain Chronic anemia CVA (cerebral vascular accident) Dilated aortic root Elevated troponin I level End stage renal disease on dialysis GERD (gastroesophageal reflux disease) Gout History of stroke Hypertension Hypertension Hypoglycemia Hypothyroidism Incomplete bladder emptying Major depressive disorder Malaise Neuropathy, lumbosacral (radicular) Polycystic kidney disease Right bundle branch block (RBBB) on electrocardiogram (ECG) Shortness of breath Tobacco use disorder Surgical History AV fistula left arm History of colonoscopy 2019 at [facility] History of surgical procedure Peritoneal dialysis catheter placement by Dr. Kamara 2016 S/P hemodialysis catheter insertion (03/13/20) 23cm long exchanged right IJ Removed on 06/11/2020 Family History Mother Chronic kidney disease (CKD) Stroke Father Cancer lung Brother Hypertension Denies family history of Diabetes CAD (coronary artery disease) Clotting disorder Dementia Hyperlipidemia Psychiatric illness Anesthesia complication Bleeding disorder Lung disease Social History Smoking and tobacco status: current every day smoker cigarettes Packs smoked per day: 1 [ Other cigarette details: Half a pack per day for last 20-30 years] Alcohol intake: never Substance/Drug Use: current Substance/Drug use frequency: few times a week Marital status: Number of children: 1 Current occupational status: disabled Current gender identity: Male Agree to transfusion: Yes Physical Exam Const: COMMON NORMALS: patient oriented x3 HENMT: COMMON NORMALS: normocephalic and atraumatic HEAD & SCALP: normocephalic and atraumatic Eye: COMMON NORMALS: Equal, round and reactive pupils present and EOMs intact bilaterally PUPIL: Yes Equal, round and reactive pupils present Neck/C-Spine: COMMON NORMALS: full ROM and supple Chest: COMMONS NORMALS: normal inspection of the chest and normal palpation of entire chest wall Resp: COMMON NORMALS: normal respiratory effort, No retractions, No use of accessory muscles and clear to auscultation bilaterally AUSCULTATION: clear to auscultation bilaterally Cardio: COMMON NORMALS: regular rate, regular rhythm and No murmurs present (Cardio) RATE: regular rate RHYTHM: regular rhythm GI: COMMON NORMALS: Normal to inspection, nondistended, normoactive bowel sounds present, Soft to palpation, non-tender and no masses PALPATION: Yes Soft to palpation Extremity: COMMON NORMALS: normal to inspection and full ROM Neuro: COMMON NORMALS: patient oriented x3, moves all extremities and no focal motor deficits Psych: COMMON NORMALS: mental status grossly normal, Normal thought process present and cooperative THOUGHT PROCESS: Normal thought process present Skin: COMMON NORMALS: no rashes or lesions noted and no wounds GENERAL SKIN EXAM: no rashes or lesions noted Course Vital Signs: Vital signs: Vital Signs Temperature 98.0 F 02/24/23 02:34 Pulse Rate 75 02/24/23 02:34 Respiratory Rate 16 02/24/23 02:34 Blood Pressure 115/61 02/24/23 02:34 Pulse Oximetry 99 02/24/23 02:34 Oxygen Delivery Me thod Nasal Cannula 02/24/23 01:53 Oxygen Flow Rate 4 02/24/23 01:53 MDM - Chest Pain Medical Decision Making Patient presents for chest pain is since resolved he is well-appearing here his troponins at his baseline he is stable for discharge he is to follow-up with PCP and return if worsening. Medical Records I reviewed the patient's medical records. Lab Data I reviewed the patient's lab results. 02/24/23 01:23 02/24/23:23 Laboratory Results WBC 7.01 10^3/uL (3.29-11.43) 02/24/23: RBC 2.69 10^6/uL (3.85-5.65) L 02/24/23: Hgb 8.20 g/dL (11.27-16.99) L 02/24/23: Hct 26.5 % (37-53) L 02/24/23: MCV 98.5 fl (82-101) 02/24/23: MCH 30.5 pg (27-33) 02/24/23: MCHC 30.9 g/dL (30-55) 02/24/23: RDW 17.4 % (12.1-15.1) H 02/24/23: Plt Count 241 10^3/cmm (157-399) 02/24/23: MPV 9.6 fL (7.4-10.4) 02/24/23: Neut % (Auto) 69.3 % 02/24/23: Lymph % (Auto) 15.7 % 02/24/23: [place] % (Auto) 11.6 % 02/24/23: Eos % (Auto) 2.0 % 02/24/23: Baso % (Auto) 0.4 % 02/24/23: Neut # (Auto) 4.86 10^3/uL (1.8-7.7) 02/24/23: Lymph # (Auto) 1.1 10^3/uL (0.8-4.8) 02/24/23: [place] # (Auto) 0.8 10^3/uL (0.2-0.9) 02/24/23 01: Eos # (Auto) 0.1 10^3/uL (0.0-0.8) 02/24/23 01: Baso # (Auto) 0.0 10^3/uL (0.0-0.1) 02/24/23 01: Nucleated RBC % (auto) 0.3 % 02/24/23: Nucleated RBCs # 0.0 /100WBC 02/24/23 01: Sodium 139 mmol/L (136-145) 02/24/23 01: Potassium 5.1 mmol/L (3.5-5.1) 02/24/23: Chloride 96 mmol/L (98-107) L 02/24/23: Carbon Dioxide 28 mmol/L (22-29) 02/24/23: Anion Gap 20.1 (5-19) H 02/24/23 01: BUN 34 mg/dL (6-20) H 02/24/23 01: Creatinine 5.3 mg/dL (0.7-1.2) H 02/24/23 01: GFR Calculation 11.2 mL/min (90-130) L 02/24/23 01: Glucose 109 mg/dL (65-115) 02/24/23 01: Calculated Osmolality 296 mOsm/kg (285-295) H 02/24/23 01: Calcium 9.3 mg/dL (8.5-10.5) 02/24/23 01: Total Bilirubin 0.2 mg/dL (0.15-1.2) 02/24/23: AST 23 U/L (0-40) 02/24/23: ALT 10 U/L (0-41) 02/24/23 01: Alkaline Phosphatase 121 U/L (40-130) 02/24/23: Troponin T Baseline 239 ng/L (0-15) H* 02/24/23 01: Total Protein 5.7 g/dL (6.6-8.7) L 02/24/23 01: Albumin 3.7 g/dL (3.5-5.2) 02/24/23 01: Globulin 2.0 g/dL (1.3-4.6) 02/24/23 01:23 XR interpretation done by ED provider, pending radiology final review ED provider radiology interpretation(s): cxr: no acute change from previous Discharge Plan Discharge Patient Disposition: Home Clinical Impression: Chest pain Condition: Stable Prescriptions: No Action cholecalciferol (vitamin D3) 125 mcg (5,000 unit) capsule 125 mcg PO DAILY cinacalcet 30 mg tablet 30 mg PO DAILY clopidogrel 75 mg tablet 75 mg PO DAILY Eliquis 5 mg tablet 5 mg PO DAILY clonidine HCl 0.2 mg tablet 0.1 mg PO BID 30 Days Qty: 60 4RF levothyroxine 75 mcg tablet 75 mcg PO DAILY 30 Days Qty: 60 0RF hydralazine 50 mg tablet 50 mg PO TID 30 Days Qty: 90 0RF hydroxyzine HCl 25 mg tablet 25 mg PO QID PRN (Reason: Itching) ondansetron 4 mg tablet,disintegrating 4 mg PO Q8H PRN (Reason: nausea and vomiting) Qty: 14 0RF Auryxia 210 mg iron tablet 2 tab PO TID RenaPlex-D 800 mcg-12.5 mg -2,000 unit tablet 1 tab PO DAILY amiodarone 400 mg tablet 400 mg PO DAILY isosorbide mononitrate 60 mg tablet extended release 24 hr 30 mg PO DAILY lisinopril 20 mg Tablet 20 mg PO DAILY metoprolol tartrate 50 mg tablet 50 mg PO DAILY nitroglycerin 0.4 mg tablet, sublingual 0.4 mg sublingual DIRECTED PRN (Reason: Chest Pain) doxycycline hyclate 100 mg tablet 100 mg PO BID 5 Days Qty: 10 0RF Discharge Orders: Discharge ED (Routine); Ordered 02/24/23 Ordered By: Ghada Fontanez Referrals: Randolph Ortiz MD [Primary Care Provider] - 1-3 days Discharge Diet: Advance as tolerated Discharge Activity: Resume usual activity Patient Instructions: Chest Pain (ED) Coding Level of Care Code ED Canal Structure Operator for Eric Sandhu
[2023-02-24 01:53] VITALS: BP 121/63; PULSE 72; RESP 16; O2SAT 96
[2023-02-24 01:58] LABS: Basophils % 0.4 %; Eosinophils # 0.1 10^3/uL (0.0-0.8); Hematocrit 26.5 % (37-53); Lymphocytes # 1.1 10^3/uL (0.8-4.8); Lymphocytes % 15.7 %; Mean Corpuscular HGB Conc 30.9 g/dL (30-55); Mean Corpuscular Hemoglobin 30.5 pg (27-33); Mean Corpuscular Volume 98.5 fl (82-101); Mean Platelet Volume 9.6 fL (7.4-10.4); Monocytes # 0.8 10^3/uL (0.2-0.9); Monocytes % 11.6 %; Neutrophils # 4.86 10^3/uL (1.8-7.7); Neutrophils % 69.3 %; Nucleated Red Blood Cells % 0.3 %; Platelet Count 241 10^3/cmm (157-399); Red Blood Count 2.69 10^6/uL (3.85-5.65); Red Cell Distribution Width 17.4 % (12.1-15.1); White Blood Count 7.01 10^3/uL (3.29-11.43)
[2023-02-24 02:14] VITALS: BP 115/61; PULSE 75; RESP 16; O2SAT 99
[2023-02-24 02:19] LABS: Troponin(5th) Baseline 239 ng/L (0-15)
[2023-02-24 02:21] LABS: Alanine Aminotransferase 10 U/L (0-41); Albumin Level 3.7 g/dL (3.5-5.2); Alkaline Phosphatase 121 U/L (40-130); Anion Gap 20.1 (5-19); Aspartate Amino Transferase 23 U/L (0-40); Blood Urea Nitrogen 34 mg/dL (6-20); Calcium 9.3 mg/dL (8.5-10.5); Carbon Dioxide 28 mmol/L (22-29); Chloride 96 mmol/L (98-107); Glomerular Filtration Rate 11.2 mL/min (90-130); Glucose 109 mg/dL (65-115); Osmolality Calculated 296 mOsm/kg (285-295); Potassium 5.1 mmol/L (3.5-5.1); Sodium 139 mmol/L (136-145); Total Bilirubin 0.2 mg/dL (0.15-1.2); Total Protein 5.7 g/dL (6.6-8.7)
[2023-02-24 02:34] VITALS: BP 115/61; PULSE 75; RESP 16; TEMP 36.7; O2SAT 99
== END 2023-02-24 02:35 | disposition home or self-care (01) ==
PROVIDERS: Emergency Provider Emergency Medicine; PCP Family Medicine
DX: R07.9 Chest pain, unspecified (principal); Z79.02 Long term (current) use of antithrombotics/antiplatelets; Z79.01 Long term (current) use of anticoagulants; F17.210 Nicotine dependence, cigarettes, uncomplicated; I12.0 Hypertensive chronic kidney disease with stage 5 chronic kidney disease or end stage renal disease; N18.6 End stage renal disease; Z99.2 Dependence on renal dialysis; Z86.73 Personal history of transient ischemic attack (TIA), and cerebral infarction without residual deficits
CPT/HCPCS: 71045; 80053; 83880; 84484; 85025; 93005; 99285

== ENCOUNTER 2023-02-28 16:15 | Inpatient (IN) | payer MEDICARE, MEDICAID, SELFPAY ==
[2023-02-28] VITALS (49 sets, daily range): BP systolic 131–199; BP diastolic 67–99; PULSE 67–98; RESP 15–29; TEMP 36.8–37.4; O2SAT 70–99; BMI 28.1; BMI 32.1
--- NOTE | 2023-02-28 16:20 | ECG_ITS ---
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 Measurements Intervals [place] Rate: 66 P: 52 CO: 169 QRS: -35 QRSD: 109 T: 6 QT: 423 QTc: 444 Interpretive Statements SINUS RHYTHM LEFT AXIS DEVIATION [QRS AXIS < -30] INCOMPLETE RIGHT BUNDLE BRANCH BLOCK [90+ ms QRS DURATION, TERMINAL R IN V1/V2, 40+ ms S IN I/aVL/V4/V5/V6] MODERATE VOLTAGE CRITERIA FOR LVH, CONSIDER NORMAL VARIANT [MEETS CRITERIA IN ONE OF: R(aVL), S(V1), R(V5), R(V5/V6)+S(V1)] POSSIBLE SEPTAL MYOCARDIAL INFARCTION , OF INDETERMINATE AGE [30 ms Q WAVE IN V1/V2] Compared to ECG 02/24/2023 01:49:14 Incomplete right bundle-branch block now present Myocardial infarct finding now present T-wave abnormality no longer present Electronically Signed On 02-28-2023 22:51:42 CDT by Saurabh Fitzpatrick M.D. [id number]
--- NOTE | 2023-02-28 16:31 | XRR_ITS ---
PROCEDURE INFORMATION: Exam: XR Chest Exam date and time: 02/28/2023 4:46 PM Age: 57 years old Clinical indication: Pain; Chest pressure; Prior surgery; Surgery date: 6+ months; Surgery type: Stents; Additional info: Chest pain TECHNIQUE: Imaging protocol: Radiologic exam of the chest. Views: 1 view. COMPARISON: CR (CHEST, ) 02/24/2023 2:00 AM FINDINGS: Lungs: Vascular congestion. Mixed interstitial and ground-glass opacities in the central and lower lungs. No consolidation. Pleural spaces: Unremarkable. No pleural effusion. No pneumothorax. Heart/Mediastinum: Mild cardiomegaly. Bones/joints: Old left rib fractures. No acute fracture. XR/XR chest 1V portable [id number] IMPRESSION: Congestive heart failure pattern.
--- NOTE | 2023-02-28 16:35 | ED_ITS ---
HPI - Chest Pain General: Chief Complaint: Chest Pain Stated Complaint: sob, chest pain Time Seen by Provider: 02/28/23 16:31 Source: patient Mode of arrival: ambulatory History of Present Illness: 57-year-old male presents emergency room with complaint of chest pain and shortness of breath x3 days. This is a frequent complaint for him. He says he was recently on antibiotics and finished his last one today. He has been having increased mucus production and cough. He denies any fever no diarrhea. Has been in multiple times in the past for chest pain. On December 26 he was admitted s with an ST elevation [place], seen cardiology and had stents placed. He usually gets dialysis on Wednesday he has made all of his dialysis appointments recently. MD complaint: chest pain Pertinent past history: coronary artery disease Onset (ago): day(s) (3) Timing of current episode: episodic Prior episodes: Yes Onset: during rest Pain location: substernal and left chest Pain radiation: none Severity: moderate Quality: tightness and aching Relieving factors: nothing Exacerbating factors: exertion Associated symptoms: Reports nausea; Deny abdominal pain, dyspnea, fever(s) or vomiting Review of Systems Const: Denies: fever(s) or chills Card: Denies: chest pain Resp: Denies: dyspnea GI: Reports: nausea; Denies: abdominal pain or vomiting : Denies: dysuria, urinary frequency or urinary urgency Musc: Denies: neck pain or back pain Skin/Breast: Denies: rash PFSH ED PFSH: Medical History Accelerated hypertension Acute hyperkalemia Acute hyperkalemia Acute hyperkalemia Altered mental status Anemia in chronic kidney disease Ascites Nephrogenic ascites Ascites gets regular paracentesis Atrial fibrillation with RVR Bilateral hydronephrosis Chest pain Chronic anemia CVA (cerebral vascular accident) Dilated aortic root Elevated troponin I level End stage renal disease on dialysis GERD (gastroesophageal reflux disease) Gout History of stroke Hypertension Hypertension Hypoglycemia Hypothyroidism Incomplete bladder emptying Major depressive disorder Malaise Neuropathy, lumbosacral (radicular) Polycystic kidney disease Right bundle branch block (RBBB) on electrocardiogram (ECG) Shortness of breath Tobacco use disorder Surgical History AV fistula left arm History of colonoscopy 2019 at [facility] History of surgical procedure Peritoneal dialysis catheter placement by Dr. Kamara 2015 S/P hemodialysis catheter insertion (03/13/20) 23cm long exchanged right IJ Removed on 06/11/2020 Family History Mother Chronic kidney disease (CKD) Stroke Father Cancer lung Brother Hypertension Other End stage renal disease on dialysis Denies family history of Diabetes CAD (coronary artery disease) Clotting disorder Dementia Hyperlipidemia Psychiatric illness Anesthesia complication Bleeding disorder Lung disease Social History Smoking and tobacco status: current every day smoker cigarettes Packs smoked per day: 1 [ Other cigarette details: Half a pack per day for last 20-30 years] Alcohol intake: never Substance/Drug Use: current Substance/Drug use frequency: few times a week Marital status: Number of children: 1 Current occupational status: disabled Current gender identity: Male Agree to transfusion: Yes Physical Exam Const: COMMON NORMALS: no acute distress GENERAL APPEARANCE: cooperative and comfortable ORIENTATION/CONSCIOUSNESS: Yes awake, Yes oriented to person, Yes oriented to place and Yes oriented to time HENMT: COMMON NORMALS: normocephalic, atraumatic and hearing grossly normal bilaterally HEAD & SCALP: normocephalic and atraumatic Resp: COMMON NORMALS: normal respiratory effort, No retractions and No use of accessory muscles AUSCULTATION: rales (Right greater than left) and wheezes Cardio: COMMON NORMALS: regular rate and regular rhythm RATE: regular rate RHYTHM: regular rhythm HEART SOUNDS: Murmur heart sound present systolic Intensity: III/ GI: COMMON NORMALS: Soft to palpation and No hepatosplenomegaly present AUSCULTATION: Yes normoactive bowel sounds PALPATION: Yes Soft to palpation, No Tenderness to palpation present (GI), No Guarding due to palpation present (GI) and Yes No hepatosplenomegaly present Extremity: COMMON NORMALS: normal to inspection, capillary refill normal, no clubbing, cyanosis or edema, no calf tenderness and no pedal edema Neuro: SENSORIUM/ORIENTATION: Yes oriented to person, Yes oriented to place and Yes oriented to time Skin: COMMON NORMALS: no rashes or lesions noted GENERAL SKIN EXAM: no rashes or lesions noted Course Vital Signs: Vital signs: Vital Signs Temperature 98.2 F 02/28/23 16:21 Pulse Rate 69 02/28/23 16:53 Respiratory Rate 18 02/28/23 16:53 Blood Pressure 165/93 02/28/23 16:53 Pulse Oximetry 91 02/28/23 16:53 Oxygen Delivery Me thod Room Air 02/28/23 16:53 Oxygen Flow Rate 3 02/28/23 16:21 MDM - Chest Pain Medical Decision Making Acute congestive heart failure with increased oxygen need. Chest x-ray shows congestive failure Labs show acute hyperkalemia secondary to his end-stage renal disease. Patient states he received all of his regular dialysis treatments last week he will need to be emergently dialyzed. Kayexalate albuterol and calcium chloride ordered discussed with hospitalist will consult nephrology orders written Medical Records I reviewed the patient's medical records. Lab Data I reviewed the patient's lab results. 02/28/23 16:59 02/28/23 16:59 Radiology Impressions Chest X-Ray 02/28/23 16:31 IMPRESSION: Congestive heart failure pattern. Laboratory Results WBC 6.70 10^3/uL (3.29-11.43) 02/28/23 16:59 RBC 2.83 10^6/uL (3.85-5.65) L 02/28/23 16:59 Hgb 8.80 g/dL (11.27-16.99) L 02/28/23 16:59 Hct 28.6 % (37-53) L 02/28/23 16:59 MCV 101.1 fl (82-101) H 02/28/23 16:59 MCH 31.1 pg (27-33) 02/28/23 16:59 MCHC 30.8 g/dL (30-55) 02/28/23 16:59 RDW 17.0 % (12.1-15.1) H 02/28/23 16:59 Plt Count 208 10^3/cmm (157-399) 02/28/23 16:59 MPV 9.7 fL (7.4-10.4) 02/28/23 16:59 Neut % (Auto) 71.6 % 02/28/23 16:59 Lymph % (Auto) 13.6 % 02/28/23 16:59 [place] % (Auto) 11.0 % 02/28/23 16:59 Eos % (Auto) 2.8 % 02/28/23 16:59 Baso % (Auto) 0.4 % 02/28/23 16:59 Neut # (Auto) 4.79 10^3/uL (1.8-7.7) 02/28/23 16:59 Lymph # (Auto) 0.9 10^3/uL (0.8-4.8) 02/28/23 16:59 [place] # (Auto) 0.7 10^3/uL (0.2-0.9) 02/28/23 16:59 Eos # (Auto) 0.2 10^3/uL (0.0-0.8) 02/28/23 16:59 Baso # (Auto) 0.0 10^3/uL (0.0-0.1) 02/28/23 16:59 Nucleated RBC % (auto) 0 % 02/28/23 16:59 Nucleated RBCs # 0.0 /100WBC 02/28/23 16:59 Sodium 136 mmol/L (136-145) 02/28/23 16:59 Potassium 7.5 mmol/L (3.5-5.1) H* 02/28/23 16:59 Chloride 92 mmol/L (98-107) L 02/28/23 16:59 Carbon Dioxide 34 mmol/L (22-29) H 02/28/23 16:59 Anion Gap 17.5 (5-19) 02/28/23 16:59 BUN 59 mg/dL (6-20) H 02/28/23 16:59 Creatinine 5.4 mg/dL (0.7-1.2) H 02/28/23 16:59 GFR Calculation 11.0 mL/min (90-130) L 02/28/23 16:59 Glucose 78 mg/dL (65-115) 02/28/23 16:59 Calculated Osmolality 297 mOsm/kg (285-295) H 02/28/23 16:59 Calcium 9.6 mg/dL (8.5-10.5) 02/28/23 16:59 Total Bilirubin 0.4 mg/dL (0.15-1.2) 02/28/23 16:59 AST 21 U/L (0-40) 02/28/23 16:59 ALT 14 U/L (0-41) 02/28/23 16:59 Alkaline Phosphatase 132 U/L (40-130) H 02/28/23 16:59 Troponin T Baseline 279 ng/L (0-15) H* 02/28/23 16:59 Total Protein 5.6 g/dL (6.6-8.7) L 02/28/23 16:59 Albumin 3.2 g/dL (3.5-5.2) L 02/28/23 16:59 Globulin 2.4 g/dL (1.3-4.6) 02/28/23 16:59 All radiology interpretation(s) finalized by discharge Discharge Plan Discharge Condition: Stable Prescriptions: No Action cholecalciferol (vitamin D3) 125 mcg (5,000 unit) capsule 125 mcg PO DAILY hydroxyzine HCl 25 mg tablet 25 mg PO QID PRN (Reason: Itching) Qty: 120 4RF levothyroxine 75 mcg tablet 75 mcg PO DAILY 30 Days Qty: 60 2RF cinacalcet 30 mg tablet 30 mg PO DAILY clopidogrel 75 mg tablet 75 mg PO DAILY Eliquis 5 mg tablet 5 mg PO DAILY clonidine HCl 0.2 mg tablet 0.1 mg PO BID 30 Days Qty: 60 4RF hydralazine 50 mg tablet 50 mg PO TID 30 Days Qty: 90 0RF ondansetron 4 mg tablet,disintegrating 4 mg PO Q8H PRN (Reason: nausea and vomiting) Qty: 14 0RF Auryxia 210 mg iron tablet 2 tab PO TID RenaPlex-D 800 mcg-12.5 mg -2,000 unit tablet 1 tab PO DAILY amiodarone 400 mg tablet 400 mg PO DAILY isosorbide mononitrate 60 mg tablet extended release 24 hr 30 mg PO DAILY lisinopril 20 mg Tablet 20 mg PO DAILY metoprolol tartrate 50 mg tablet 50 mg PO DAILY nitroglycerin 0.4 mg tablet, sublingual 0.4 mg sublingual DIRECTED PRN (Reason: Chest Pain) Coding Level of Care Code ED 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
[2023-02-28] MEDS: aspirin 81 mg Chew Tablet 324 MG PO (16:44)
[2023-02-28 17:12] LABS: Basophils % 0.4 %; Eosinophils # 0.2 10^3/uL (0.0-0.8); Eosinophils % 2.8 %; Hematocrit 28.6 % (37-53); Lymphocytes # 0.9 10^3/uL (0.8-4.8); Lymphocytes % 13.6 %; Mean Corpuscular HGB Conc 30.8 g/dL (30-55); Mean Corpuscular Hemoglobin 31.1 pg (27-33); Mean Corpuscular Volume 101.1 fl (82-101); Mean Platelet Volume 9.7 fL (7.4-10.4); Monocytes # 0.7 10^3/uL (0.2-0.9); Neutrophils # 4.79 10^3/uL (1.8-7.7); Neutrophils % 71.6 %; Nucleated Red Blood Cells % 0 %; Platelet Count 208 10^3/cmm (157-399); Red Blood Count 2.83 10^6/uL (3.85-5.65)
[2023-02-28 17:38] LABS: Alanine Aminotransferase 14 U/L (0-41); Albumin Level 3.2 g/dL (3.5-5.2); Alkaline Phosphatase 132 U/L (40-130); Anion Gap 17.5 (5-19); Aspartate Amino Transferase 21 U/L (0-40); Blood Urea Nitrogen 59 mg/dL (6-20); Calcium 9.6 mg/dL (8.5-10.5); Carbon Dioxide 34 mmol/L (22-29); Chloride 92 mmol/L (98-107); Globulin 2.4 g/dL (1.3-4.6); Glucose 78 mg/dL (65-115); Osmolality Calculated 297 mOsm/kg (285-295); Sodium 136 mmol/L (136-145); Total Bilirubin 0.4 mg/dL (0.15-1.2); Total Protein 5.6 g/dL (6.6-8.7)
[2023-02-28 17:40] LABS: Potassium 7.5 mmol/L (3.5-5.1); Troponin(5th) Baseline 279 ng/L (0-15)
[2023-02-28] MEDS: albuterol 2.5 mg/3 mL Neb 10 MG INHALATION (17:53)
--- NOTE | 2023-02-28 18:01 | P.HP_ITS ---
Providers/Chief Complaint Primary Care Provider: Randolph Ortiz MD Chief Complaint: sob, chest pain History of Present Illness Navneet Savage is a 57 year old male who was recently discharged from the hospital when he missed his dialysis at that time he was diagnosed with non- STEMI he was treated with ACS/heparin drip after his dialysis patient felt well and was discharged home at baseline uses 2 L of oxygen his echo showed EF 55 to 60% without any wall motion abnormality. Patient stating that he got short of breath, he has been experiencing chest pain on the right side which she is describing as dull achy pain associated with shortness of breath without any nausea vomiting or diaphoresis. He is endorsing productive cough as well without any fever. He has not missed his dialysis. Last HD session was on Wednesday Review of Systems Eyes: Denies: change in vision ENMT: Denies: throat pain Card: Reports: swelling of feet/ankles Resp: Reports: dyspnea GI: Denies: abdominal pain : Denies: flank pain Musc: Reports: back pain Medications/Allergies Home Medications Medication Instructions Recorded Confirmed Last Taken Type cinacalcet 30 mg tablet 30 mg PO DAILY 05/12/22 02/20/23 02/15/23 History cholecalciferol (vitamin D3) 125 125 mcg PO DAILY 06/18/22 02/20/23 02/15/23 History mcg (5,000 unit) capsule ferric citrate 210 mg iron tablet 2 tab PO TID 06/22/22 02/20/23 02/15/23 History (Auryxia) vit B,C-folic ac 800 mcg-zinc 12.5 1 tab PO DAILY 06/22/22 02/20/23 02/15/23 History mg-selen-D3 2,000 unit-vit E tablet (RenaPlex-D) clonidine HCl 0.2 mg tablet 0.1 mg PO BID 30 days #60 tabs 12/31/22 02/20/23 02/13/23 Rx hydralazine 50 mg tablet 50 mg PO TID 30 days #90 tabs 12/31/22 02/20/23 02/15/23 Rx ondansetron 4 mg disintegrating 4 mg PO Q8H PRN nausea and 01/30/23 02/20/23 02/15/23 Rx tablet vomiting #14 tabs apixaban 5 mg tablet (Eliquis) 5 mg PO DAILY 02/02/23 02/20/23 02/15/23 History clopidogrel 75 mg tablet 75 mg PO DAILY 02/02/23 02/20/23 02/15/23 History amiodarone 400 mg tablet 400 mg PO DAILY 02/08/23 02/20/23 02/15/23 History isosorbide mononitrate 60 mg 30 mg PO DAILY 02/08/23 02/20/23 02/15/23 History tablet,extended release 24 hr lisinopril 20 mg tablet 20 mg PO DAILY 02/16/23 02/20/23 02/15/23 History metoprolol tartrate 50 mg tablet 50 mg PO DAILY 02/16/23 02/20/23 02/15/23 History nitroglycerin 0.4 mg sublingual 0.4 mg sublingual DIRECTED PRN 02/16/23 02/20/23 Unknown History tablet Chest Pain hydroxyzine HCl 25 mg tablet 25 mg PO QID PRN Itching #120 tabs 02/26/23 Unknown Rx levothyroxine 75 mcg tablet 75 mcg PO DAILY 30 days #60 tabs 02/26/23 Unknown Rx Allergies Allergy/AdvReac Type Severity Reaction Status Date / Time Penicillins Allergy ALGY-Anaphy Verified 02/24/23 01:50 laxis Sulfa (Sulfonamide Allergy Unknown Verified 02/24/23 01:50 Antibiotics) fluoxetine [From Prozac] AdvReac Mild stomach Verified 02/24/23 01:50 upset PFSH Acute PFSH: Medical History Accelerated hypertension Acute hyperkalemia Acute hyperkalemia Acute hyperkalemia Altered mental status Anemia in chronic kidney disease Ascites Nephrogenic ascites Ascites gets regular paracentesis Atrial fibrillation with RVR Bilateral hydronephrosis Chest pain Chronic anemia CVA (cerebral vascular accident) Dilated aortic root Elevated troponin I level End stage renal disease on dialysis GERD (gastroesophageal reflux disease) Gout History of stroke Hypertension Hypertension Hypoglycemia Hypothyroidism Incomplete bladder emptying Major depressive disorder Malaise Neuropathy, lumbosacral (radicular) Polycystic kidney disease Right bundle branch block (RBBB) on electrocardiogram (ECG) Shortness of breath Tobacco use disorder Surgical History AV fistula left arm History of colonoscopy 2019 at [facility] History of surgical procedure Peritoneal dialysis catheter placement by Dr. Kamara 2015 S/P hemodialysis catheter insertion (03/13/20) 23cm long exchanged right IJ Removed on 06/11/2020 Family History Mother Chronic kidney disease (CKD) Stroke Father Cancer lung Brother Hypertension Other End stage renal disease on dialysis Denies family history of Diabetes CAD (coronary artery disease) Clotting disorder Dementia Hyperlipidemia Psychiatric illness Anesthesia complication Bleeding disorder Lung disease Social History Smoking and tobacco status: current every day smoker cigarettes Packs smoked per day: 1 [ Other cigarette details: Half a pack per day for last 20-30 years] Alcohol intake: never Substance/Drug Use: current Substance/Drug use frequency: few times a week Marital status: Number of children: 1 Current occupational status: disabled Current gender identity: Male Agree to transfusion: Yes Vitals/I&O/Wt Last Vital Signs Temp 98.2 F 02/28/23 16:21 Pulse 68 02/28/23 17:58 Resp 20 H 02/28/23 17:58 BP 165/93 02/28/23 16:53 Pulse Ox 94 02/28/23 17:58 O2 Del Method Nasal Cannula 02/28/23 17:58 O2 Flow Rate 4 02/28/23 17:58 Weight last 48 hrs Weight 81.647 kg Physical Exam Narrative: Disheveled appearance Unkept appearance S1, S2 variable Hemodynamically stable with hypertension Currently on 4 L Multiple crackles on sign of fluid overload Abdomen soft Nonfocal neuro exam Data 02/28/23 16:59 02/28/23 16:59 A&P Assessment and plan (1) Unstable angina: (2) Acute hyperkalemia: (3) Acute exacerbation of CHF (congestive heart failure): (4) End stage renal disease on dialysis: (5) Hyperkalemia: Plan End-stage renal disease Hyperkalemia Potassium is 7.5 Uremia Patient will need urgent dialysis Will admit to ICU Patient had hyperkalemia on last visit as well and developed hypoglycemia with insulin Patient is an active smoker Acute on chronic hypoxia related fluid overload Patient at baseline uses 2 L of oxygen Currently requiring 4 L Anticipate improvement after dialysis Patient is noncompliant, active smoker, multiple visits in the hospital related to missing his dialysis sessions Hypertensive urgency continue antihypertensive regimen including clonidine Unstable angina will require stress test in the morning Full code Renal diet Consulted nephro DVT prophylaxis covered with Martinequis patient has history of A-fib Continue metoprolol Attestations Medical Necessity Statement*: Anticipating more than 2 midnights for further joints renal disease, hyperkalemia, volume overload Diagnoses Unstable angina I20.0 Acute hyperkalemia E87.5 Acute exacerbation of CHF (congestive heart failure) I50.9 End stage renal disease on dialysis N18.6; Z99.2 Hyperkalemia E87.5
[2023-02-28] MEDS: sodium polystyrene sulfonate 15 gm/60 mL Btl 30 GM PO (18:08)
[2023-02-28] MEDS: calcium chloride 10% Syr 10 mL 2 GM IVP (18:08)
--- NOTE | 2023-02-28 18:26 | P.CONIM_ITS ---
Providers/Reason For Consult Consulting Physician/Specialty*: [facility]/Nephrology Reason for Consult*: esrd Primary Care Provider: Randolph Ortiz MD History of Present Illness History of Present Illness Navneet Savage is a 57 year old male With past medical history of coronary artery disease, GERD, end-stage renal disease on dialysis per Wednesday schedule, hypertension, multiple admissions due to noncompliance presented to the hospital due to shortness of breath and chest pain. Reports that he has not missed any dialysis and last hemodialysis was on Wednesday. He was recently admitted to the hospital and was treated for NSTEMI. Lab data is significant for severe hyperkalemia with a potassium of 7.5. Review of Systems Narrative: NEGATIVE Medications/Allergies Home Medications Medication Instructions Recorded Confirmed Last Taken Type cinacalcet 30 mg tablet 30 mg PO DAILY 05/12/22 02/20/23 02/15/23 History cholecalciferol (vitamin D3) 125 125 mcg PO DAILY 06/18/22 02/20/23 02/15/23 History mcg (5,000 unit) capsule ferric citrate 210 mg iron tablet 2 tab PO TID 06/22/22 02/20/23 02/15/23 History (Auryxia) vit B,C-folic ac 800 mcg-zinc 12.5 1 tab PO DAILY 06/22/22 02/20/23 02/15/23 History mg-selen-D3 2,000 unit-vit E tablet (RenaPlex-D) clonidine HCl 0.2 mg tablet 0.1 mg PO BID 30 days #60 tabs 12/31/22 02/20/23 02/13/23 Rx hydralazine 50 mg tablet 50 mg PO TID 30 days #90 tabs 12/31/22 02/20/23 02/15/23 Rx ondansetron 4 mg disintegrating 4 mg PO Q8H PRN nausea and 01/30/23 02/20/23 02/15/23 Rx tablet vomiting #14 tabs apixaban 5 mg tablet (Eliquis) 5 mg PO DAILY 02/02/23 02/20/23 02/15/23 History clopidogrel 75 mg tablet 75 mg PO DAILY 02/02/23 02/20/23 02/15/23 History amiodarone 400 mg tablet 400 mg PO DAILY 02/08/23 02/20/23 02/15/23 History isosorbide mononitrate 60 mg 30 mg PO DAILY 02/08/23 02/20/23 02/15/23 History tablet,extended release 24 hr lisinopril 20 mg tablet 20 mg PO DAILY 02/16/23 02/20/23 02/15/23 History metoprolol tartrate 50 mg tablet 50 mg PO DAILY 02/16/23 02/20/23 02/15/23 History nitroglycerin 0.4 mg sublingual 0.4 mg sublingual DIRECTED PRN 02/16/23 02/20/23 Unknown History tablet Chest Pain hydroxyzine HCl 25 mg tablet 25 mg PO QID PRN Itching #120 tabs 02/26/23 Unknown Rx levothyroxine 75 mcg tablet 75 mcg PO DAILY 30 days #60 tabs 02/26/23 Unknown Rx Allergies Allergy/AdvReac Type Severity Reaction Status Date / Time Penicillins Allergy ALGY-Anaphy Verified 02/24/23 01:50 laxis Sulfa (Sulfonamide Allergy Unknown Verified 02/24/23 01:50 Antibiotics) fluoxetine [From Prozac] AdvReac Mild stomach Verified 02/24/23 01:50 upset PFSH Acute PFSH: Medical History Accelerated hypertension Acute hyperkalemia Acute hyperkalemia Acute hyperkalemia Altered mental status Anemia in chronic kidney disease Ascites Nephrogenic ascites Ascites gets regular paracentesis Atrial fibrillation with RVR Bilateral hydronephrosis Chest pain Chronic anemia CVA (cerebral vascular accident) Dilated aortic root Elevated troponin I level End stage renal disease on dialysis GERD (gastroesophageal reflux disease) Gout History of stroke Hypertension Hypertension Hypoglycemia Hypothyroidism Incomplete bladder emptying Major depressive disorder Malaise Neuropathy, lumbosacral (radicular) Polycystic kidney disease Right bundle branch block (RBBB) on electrocardiogram (ECG) Shortness of breath Tobacco use disorder Surgical History AV fistula left arm History of colonoscopy 2019 at [facility] History of surgical procedure Peritoneal dialysis catheter placement by Dr. Kamara 2016 S/P hemodialysis catheter insertion (03/13/20) 23cm long exchanged right IJ Removed on 06/11/2020 Family History Mother Chronic kidney disease (CKD) Stroke Father Cancer lung Brother Hypertension Other End stage renal disease on dialysis Denies family history of Diabetes CAD (coronary artery disease) Clotting disorder Dementia Hyperlipidemia Psychiatric illness Anesthesia complication Bleeding disorder Lung disease Social History Smoking and tobacco status: current every day smoker cigarettes Packs smoked per day: 1 [ Other cigarette details: Half a pack per day for last 20-30 years] Alcohol intake: never Substance/Drug Use: current Substance/Drug use frequency: few times a week Marital status: Number of children: 1 Current occupational status: disabled Current gender identity: Male Agree to transfusion: Yes Vitals/I&O/Wt Last Vital Signs Temp 98.2 F 02/28/23 16:21 Pulse 74 02/28/23 18:26 Resp 20 H 02/28/23 17:58 BP 165/93 02/28/23 16:53 Pulse Ox 94 02/28/23 17:58 O2 Del Method Nasal Cannula 02/28/23 17:58 O2 Flow Rate 4 02/28/23 17:58 Weight last 48 hrs Weight 81.647 kg Physical Exam Narrative: AWAKE ,A LERT NO DISTRESS s1s2 rrr PER REPORT LUNGS CLEAR PER REPORT NO EDEMA Data 03/01/23 03:27 03/01/23 03:27 A&P Assessment and plan (1) End stage renal disease on dialysis: Plan 1. End-stage renal disease: On MWF schedule as outpatient, last hemodialysis on Wednesday, now presents with volume overload and hyperkalemia, plan for emergent hemodialysis tonight 2. Hypertension: Blood pressure elevated, will restart all home meds 3. Acute hyperkalemia: Potassium is 7.5, status post medical management and HD as above 4. Anemia: Hemoglobin 8.8, will order RADHA 5. Acute on chronic respiratory failure: Multifactorial 6. Unstable angina-management per primary team Patient evaluated using audiovisual cart. Time spent 40 minutes Consult Attestations Medical Necessity Statement: PER MEDIICNE TEAM Coding Level of Care Code Acute Code for Chg Fwd Diagnoses End stage renal disease on dialysis N18.6; Z99.2
--- NOTE | 2023-02-28 18:53 | ECG_ITS ---
[facility] Test Date: 2023-02-28 Pat Name: Navneet Savage Department: Room: Gender: Male Director Media: : 1965 Requested By: Marvin Bennett Order Number: [id number] Nate MD: Saurabh Fitzpatrick M.D. Measurements Intervals [place] Rate: 85 P: 58 MD: 175 QRS: -29 QRSD: 107 T: 41 QT: 378 QTc: 451 Interpretive Statements SINUS RHYTHM BORDERLINE LEFT AXIS DEVIATION [QRS AXIS < -20] Compared to ECG 02/28/2023 16:25:45 Incomplete right bundle-branch block no longer present Myocardial infarct finding no longer present Electronically Signed On 02-28-2023 22:57:05 CDT by Saurabh Fitzpatrick M.D. [id number]
[2023-02-28 19:37] LABS: Troponin 5 2HR 285.7 ng/L (0-15); Troponin 5 2HR Delta 6.7 ABS# (0-10)
--- NOTE | 2023-02-28 21:15 | ECG_ITS ---
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 Interpretive Statements NAME OF STUDY: LEXISCAN SESTAMIBI STRESS TEST INDICATION: Unstable Angina , PROCEDURE: At the baseline, the EKG revealed normal sinus rhythm with a left axis deviation. Nonspecific IVCD. The baseline heart was 89 bpm with a blood pressue of 168/93 mm of Hg Lexiscan was infused over a period of 20 seconds. A total of 0.4 milligrams of Lexiscan was infused. The stress phase was continued for a total of 5 minutes. Heart rate at the end of the stress phase was 93 bpm with a blood pressure 166/81 mm of Hg. The EKG at the peak infusion revealed no significant changes. Sestamibi was injected 20 seconds after the Lexiscan infusion. Heart rate at the end of the recovery phase was 92 bpm with a blood pressure of 174/84 mm of Hg. CONCLUSION: 1. No significant EKG changes with the LexiScan infusion 2. No LexiScan induced chest pain or cardiac arrhythmia 3. Normal blood pressure and heart rate response 4. Sestamibi/sestamibi perfusion scan pending; see separate report. Electronically Signed On 03-08-2023 8:23:05 CDT by China Wheat M.D. [id number]
[2023-02-28 21:39] LABS: Troponin 5 6HR 306.4 ng/L (0-15)
[2023-02-28 21:40] LABS: Troponin 5 6HR Delta 27.4 ng/L (0-12)
[2023-02-28] MEDS: hyDRALAzine 50 mg Tablet PO (22:04)
[2023-03-01] VITALS (162 sets, daily range): BP systolic 104–178; BP diastolic 45–99; PULSE 70–105; RESP 16–39; TEMP 36.5–37.9; O2SAT 80–100
[2023-03-01] MEDS: epoetin alfa 1000 Unit/0.05 mL (ESRD) 20000 UNIT SUBCUT (00:23)
[2023-03-01 04:17] LABS: Basophils % 0.7 %; Eosinophils # 0.1 10^3/uL (0.0-0.8); Eosinophils % 2.4 %; Lymphocytes # 0.6 10^3/uL (0.8-4.8); Mean Corpuscular HGB Conc 31.1 g/dL (30-55); Mean Corpuscular Hemoglobin 30.8 pg (27-33); Mean Corpuscular Volume 98.9 fl (82-101); Mean Platelet Volume 9.7 fL (7.4-10.4); Monocytes # 0.7 10^3/uL (0.2-0.9); Monocytes % 11.8 %; Neutrophils # 4.24 10^3/uL (1.8-7.7); Neutrophils % 73.8 %; Nucleated Red Blood Cells % 0 %; Platelet Count 231 10^3/cmm (157-399); Red Blood Count 2.73 10^6/uL (3.85-5.65); Red Cell Distribution Width 16.9 % (12.1-15.1); White Blood Count 5.75 10^3/uL (3.29-11.43)
[2023-03-01 04:26] LABS: Anion Gap 12.7 (5-19); Blood Urea Nitrogen 24 mg/dL (6-20); C Reactive Protein 38.1 mg/L (0.0-4.9); Calcium 9.9 mg/dL (8.5-10.5); Carbon Dioxide 34 mmol/L (22-29); Chloride 93 mmol/L (98-107); Glomerular Filtration Rate 22.5 mL/min (90-130); Glucose 70 mg/dL (65-115); Osmolality Calculated 282 mOsm/kg (285-295); Potassium 4.7 mmol/L (3.5-5.1); Sodium 135 mmol/L (136-145)
--- OUTSIDE RECORDS SUMMARY | 2023-03-01 05:32 | XMS_ITS ---
Author Name Kaylah Phipps Address [address] [place] [address] Phone [phone] Organization [facility], NA DOCUMENT DISCLAIMER Multiple document versions may exist, please be sure you review the latest version. The information in the [facility] Progress Note Document represents a providers documented clinical note containing certain health and medical information. It may not contain the complete medical history for the patient and should be independently verified. The represented time in the document is Eastern Time PROVIDER ROUNDING NOTE COMPREHENSIVE Patient:?Navneet?Hussein,?1965,?57y,?M Dialysis?Location:?[facility] Attending?Inspector [employer]:?Marlin?Dequan Service?Date:?02/01/2023 Service?Provider:?Kaylah?Desire,?MOTOR VEHICLE LICENSE CLERK I?met?face?to?face?with?the?patient?today. OVERVIEW The?patient?presented?with?ESRD?on?dialysis Primary?cause?of?renal?failure:?Polycystic?kidney,?adult?type Comments:??Remains?without?a?firm?residence,?social?impairme nts?with?diet,?medication?compliance.??? Tells?me?today?that?he?is?not?able?to?tolerate?mos t?of?his?medications?since?bypass:??his?reports?and&#16 0;statements?continue?to?change?weekly.??Continue?to?educate.?? Reviewed?today?ongoing?lack?of?compliance?will?continue?to&# 160;result?in?repeat?hospitalizations,?increased?mortality?risk Reports?widespread?itching?that?he?wants?medication?for:?Ed& #160;patient?that?ongoing?severely?elevated?phosphorous?is?the&#1 60;cause?and?he?has?active?atarax?prescription:??advised&#16 0;medication?compliance?will?address?his?itching.??Given?rep eat?hospital?stays,?impaired?compliance?and?living,?as?well& #160;as?self?transport,?he?is?not?a?candidate?for?korsuva.?? Medications?and?labs?reviewed. 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 G93.1?Anoxic?brain?damage,?not?elsewhere?classified Admission?Date?12/26/22 Discharge?Date?12/31/22 DIALYSIS?PRESCRIPTION ??IHD?3x?Week?Start?date:?01/29/23 ??Dialyzer:?180NRe?Optiflux ??BFR:?550 ??DFR:?Autoflow?2 ??Potassium:?2.0 ??Sodium:?138 ??EDW:?78.6 ??Duration:?4:00 ??Calcium:?2.5 ??Bicarb:?32 ??Rx?updated?on:?01/29/2023 TREATMENT?ASSESSMENT Comments:?159/71 BP?Stand?Pre ??01/29/2023:?218/105 ??01/27/2023:?165/89 BP?Sit?Pre ??01/29/2023:?181/98 ??01/27/2023:?157/82 ??01/25/2023:?135/76 BP?Stand?Post ??01/29/2023:?164/92 ??01/27/2023:?163/75 ??01/25/2023:?142/72 BP?Sit?Post ??01/29/2023:?174/91 ??01/27/2023:?156/81 ??01/25/2023:?126/65 Tx?Duration ??01/29/2023:?4:02 ??01/27/2023:?4:04 ??01/25/2023:?4:03 Missed?Treatments 1?-?last?30?days 1?-?last?60?days 9?-?recent FLUID?ASSESSMENT Comments:??ascites?present?secondary?to?liver?disease:?repor ts?last?two?paracentesis?appt?he?had?they?were?not&#160 ;able?to?locate?an?area?they?could?drain EDW?(kg) ??01/29/2023:?78.6 ??01/27/2023:?78.6 ??01/25/2023:?78.6 Weight?Pre?(kg) ??01/29/2023:?89.5 ??01/27/2023:?89.8 ??01/25/2023:?92.2 Weight?Post?(kg) ??01/29/2023:?84.8 ??01/27/2023:?85.8 ??01/25/2023:?87.9 PWV?(kg) ??01/29/2023:?6.2 ??01/27/2023:?7.2 ??01/25/2023:?9.3 UF?Rate?(mL/kg/hr) ??01/29/2023:?13.7 ??01/27/2023:?11.5 ??01/25/2023:?12.1 ADEQUACY?ASSESSMENT Adequacy?target?met.?Prescription?compliance?acceptable.?No?changes?indicated.? spKt/V,?URR ??01/27/2023:?1.94,?80.0 ??12/23/2022:?1.61,?75.0 ??11/25/2022:?1.65,?75.0 ACCESS?ASSESSMENT ??Access?Type:?AVFistula ??Access?SubType:?Standard ??Access?Status:?Active?(In?Use)?-?06/05/2020 ??Access?Location:?Left?Forearm ??Created:?03/27/2020 Flow ??01/25/2023:?1053 ??01/11/2023:?1153 ??12/07/2022:?1871 Vascular?access?reviewed.?Current?access?is?permanent?and?functioning?well. ANEMIA?ASSESSMENT HGB?below?goal.?Iron?parameters?acceptable.?Medications?adjusted.? HGB,?TSAT ??01/27/2023:?8.6,?36.0 ??01/20/2023:?9.0,?- ??01/13/2023:?8.9,?- ?? Ferritin ??01/27/2023:?637.0 ??10/28/2022:?514.0 Mircera,?IVP?(mcg) ??01/20/2023:?100 ??12/09/2022:?150 ??11/25/2022:?100 Iron?Sucrose?(Venofer)?(mg) ??01/06/2023:?100 ??12/23/2022:?100 ??12/09/2022:?100 BMM?ASSESSMENT Comments:?Not?taking?any?home?medications,?states?he?does&#1 60;not?have?any:?also?states?all?medications?make?him?i ll,?Remains?non?compliant?with?therapy.? Phosphorus,?Calcium ??01/27/2023:?10.5,?8.3 ??01/08/2023:?-,?9.5 ??01/06/2023:?7.1,?- ?? PTH,?Intact ??01/27/2023:?1312.0 ??12/23/2022:?1940.0 ??11/25/2022:?1968.0 Vitamin?D?(Calcitriol)?Oral?(mcg) ??01/29/2023:?2.0 ??01/27/2023:?2.0 ??01/25/2023:?2.0 NUTRITION?ASSESSMENT Comments:?Refuses?to?take?potassium?binders Albumin,?Potassium ??01/27/2023:?3.1,?6.5 ??01/20/2023:?-,?5.6 ??01/13/2023:?-,?4.2 ?? eNPCR ??01/27/2023:?0.72 ??12/23/2022:?0.5 ??11/25/2022:?0.63 PHYSICAL?EXAM Exam?Not?Performed. DIAGNOSIS Chief?Complaint:?N18.6?End?stage?renal?disease Patient?data?updated?02/01/2023?at?8:18?AM Signed?By:?Desire,?Kaylah,?MOTOR VEHICLE LICENSE CLERK??on?02/01/2023?8:29:46 AM END OF DOCUMENT
--- OUTSIDE RECORDS SUMMARY | 2023-03-01 05:32 | XMS_ITS ---
Author Name Trinity Hernadez Address [address] [place], [place] [address] Phone [phone] Organization [facility], NA DOCUMENT DISCLAIMER Multiple document versions may exist, please be sure you review the latest version. The information in the [facility] Progress Note Document represents a providers documented clinical note containing certain health and medical information. It may not contain the complete medical history for the patient and should be independently verified. The represented time in the document is Eastern Time PROVIDER ROUNDING NOTE COMPREHENSIVE Patient:?Navneet?Hussein,?1965,?57y,?M Dialysis?Location:?[place] Attending?Financial Aid:?Bryce Service?Date:?01/20/2023 Service?Provider:?Trinity?Maricarmen,? I?met?face?to?face?with?the?patient?today. OVERVIEW The?patient?presented?with?ESRD?on?dialysis Primary?cause?of?renal?failure:?Polycystic?kidney,?adult?type Comments:??Remains?without?a?firm?residence,?social?impairme nts?with?diet,?medication?compliance.??? Medications?and?labs?reviewed. HOME?MEDICATIONS Home?Medications:? ??Aspirin?Childrens?(aspirin)?81?mg,?by?mouth,?Take 1?tablet?once?a?day ??Eliquis?(apixaban)?5?mg,?by?mouth,?Take?1?tablet?twice?a?day ??minoxidil?2.5?mg,?by?mouth,?Take?2?tablet?twice a?day ??hydralazine?50?mg,?Take?1?tablet?three?times?a day ??sertraline?50?mg,?by?mouth,?Take?1?tablet?once a?day ??Lokelma?(sodium?zirconium?cyclosilicate)?5?gram,?by?m outh,?Take?1?packet?once?a?day ??clopidogrel?75?mg,?by?mouth,?Take?1?tablet?once a?day ??metoprolol?tartrate?50?mg,?by?mouth,?Take?1?tabl et?twice?a?day?Take?@?0900?&?2100 ??nitroglycerin?0.4?mg,?under?tongue,?Place?1?tablet&#1 60;as?directed?Q5M?PRN?as?needed?for?Chest?pain ??clonidine?HCl?(clonidine?hcl)?0.1?mg,?by?mouth,?Take?1?tablet?twice?a?day ??lactulose?10?gram/15?mL?(15?mL),?by?mouth,?Take& #160;15?ml?once?a?day?On?non?dialysis?days?Wednesday,&#16 0;?Wednesday?and?Wednesday ??atorvastatin?40?mg,?by?mouth,?Take?1?tablet?every?night ??amlodipine?10?mg,?by?mouth,?Take?1?tablet?once a?day ??Zoloft?(sertraline)?50?mg,?by?mouth,?Take?1?tablet?every?evening ??lisinopril?20?mg,?by?mouth,?Take?1?tablet?once a?day ??cholecalciferol?(vitamin?D3)?(cholecalciferol?(vitamin?d3))&#16 0;125?mcg?(5,000?unit),?by?mouth,?Take?1?once?a?day ??Auryxia?(ferric?citrate)?210?mg?iron,?by?mouth,? Take?2?tablet?three?times?a?day?with?meals?1?with snacks ??cinacalcet?30?mg,?by?mouth,?Take?1?tablet?once a?day ??isosorbide?mononitrate?60?mg,?by?mouth,?Take?1/2 tablet?once?a?day ??levothyroxine?75?mcg,?by?mouth,?Take?1?tablet?once?a?day ??Protonix?(pantoprazole)?40?mg,?by?mouth,?Take?1?tablet?once?a?day?as?directed ??Renaplex?D?1?tablet,?by?mouth,?Take?1?tablet once?a?day ??allopurinol?100?mg,?by?mouth,?Take?1?tablet?once?a?day ??trazodone?50?mg,?by?mouth,?Take?1?tablet?at bedtime?as?needed ??hydroxyzine?HCl?(hydroxyzine?hcl)?25?mg,?by?mouth,&#1 60;Take?1?tablet?four?times?a?day?as?needed?as?needed?for?itching ??sucralfate?1?gram,?by?mouth,?Take?1?tablet?every ?six?hours?as?needed?for?GERD?or?stomach?upset Allergies:? 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 BP?Stand?Pre ??01/18/2023:?206/104 ??01/15/2023:?161/85 ??01/13/2023:?196/99 BP?Sit?Pre ??01/18/2023:?175/98 ??01/15/2023:?163/89 ??01/13/2023:?193/99 BP?Stand?Post ??01/18/2023:?181/116 ??01/15/2023:?117/72 ??01/13/2023:?170/92 BP?Sit?Post ??01/18/2023:?174/106 ??01/15/2023:?127/75 ??01/13/2023:?185/94 Tx?Duration ??01/18/2023:?4:03 ??01/15/2023:?4:00 ??01/13/2023:?4:03 Missed?Treatments 0?-?last?30?days 0?-?last?60?days FLUID?ASSESSMENT Comments:??ascites?present?secondary?to?liver?disease Fluid?status?not?acceptable.?Interdialytic?weight?gain?not?a cceptable.?Optimal?weight?discussed.?Diet?reviewed?with?patient. EDW?(kg) ??01/18/2023:?78.6 ??01/15/2023:?79.0 ??01/13/2023:?80.5 Weight?Pre?(kg) ??01/18/2023:?81.6 ??01/15/2023:?81.3 ??01/13/2023:?79.7 Weight?Post?(kg) ??01/18/2023:?80.6 ??01/15/2023:?78.6 ??01/13/2023:?79.0 PWV?(kg) ??01/18/2023:?2.0 ??01/15/2023:?-0.4 ??01/13/2023:?-1.5 UF?Rate?(mL/kg/hr) ??01/18/2023:?3.1 ??01/15/2023:?8.6 ??01/13/2023:?2.2 ADEQUACY?ASSESSMENT Adequacy?target?met.?Prescription?compliance?not?acceptable.?Coun seled?patient?regarding?prescription?compliance.? spKt/V,?URR ??12/23/2022:?1.61,?75.0 ??11/25/2022:?1.65,?75.0 ??10/28/2022:?1.54,?74.0 ACCESS?ASSESSMENT ??Access?Type:?AVFistula ??Access?SubType:?Standard ??Access?Status:?Active?(In?Use)?-?06/05/2020 ??Access?Location:?Left?Forearm ??Created:?03/27/2020 Flow ??01/11/2023:?1153 ??12/07/2022:?1871 ??11/09/2022:?1069 Vascular?access?reviewed.?Current?access?is?permanent?and?functioning?well. ANEMIA?ASSESSMENT HGB?below?goal.?RADHA?dose?inadequate.?Medications?adjusted.?T reatment?protocol?ordered.? HGB ??01/13/2023:?8.9 ??01/06/2023:?12.3 ??01/04/2023:?11.1 ?? Ferritin ??10/28/2022:?514.0 ??07/22/2022:?461.0 Mircera,?IVP?(mcg) ??12/09/2022:?150 ??11/25/2022:?100 ??11/11/2022:?75 Iron?Sucrose?(Venofer)?(mg) ??01/06/2023:?100 ??12/23/2022:?100 ??12/09/2022:?100 BMM?ASSESSMENT Comments:?he?should?be?on?sensipar?every?day?at?home&#1 60;-???compliance.?he?reports?he?IS?taking?it?--?will?increase?dose PTH?elevated.?Calcium?controlled.?Phosphorus?elevated.?BMM?meds&# 160;adherence?not?acceptable.?Counseled?pt?on?meds?adherence.&#16 0;Diet?reviewed?with?patient.?Medications?adjusted.?Referred?to dietitian.? Phosphorus,?Calcium ??01/08/2023:?-,?9.5 ??01/06/2023:?7.1,?- ??12/23/2022:?11.1,?9.4 ?? PTH,?Intact ??12/23/2022:?1940.0 ??11/25/2022:?1968.0 ??11/06/2022:?1704.0 Vitamin?D?(Calcitriol)?Oral?(mcg) ??01/18/2023:?2.0 ??01/15/2023:?2.0 ??01/13/2023:?2.0 NUTRITION?ASSESSMENT Comments:?Refuses?to?take?potassium?binders Potassium?controlled.?Albumin?controlled.?No?changes?indicated.? Potassium ??01/13/2023:?4.2 ??01/06/2023:?4.5 ??01/04/2023:?5.0 ?? eNPCR ??12/23/2022:?0.5 ??11/25/2022:?0.63 ??10/28/2022:?0.74 PHYSICAL?EXAM Exam?Performed.?Vital?Signs?Reviewed.?Lungs?-?Clear.?CV&#160 ;-?Blood?pressure?noted.?EXT?-?No?edema.?AVF/AVG?Positive?thrill/bruit. DIAGNOSIS Chief?Complaint:?N18.6?End?stage?renal?disease Patient?is?stable.?Patient?discussed?with?nursing. Patient?data?updated?01/20/2023?at?9:37?AM Signed?By:?Maricarmen,?Trinity,???on?01/20/2023?9:41:48?AM END OF DOCUMENT
--- OUTSIDE RECORDS SUMMARY | 2023-03-01 05:32 | XMS_ITS ---
Author Name Marlin Baires Address [address] [place], [place] [address] Phone [phone] Organization [facility], NA DOCUMENT DISCLAIMER Multiple document versions may exist, please be sure you review the latest version. The information in the [facility] Progress Note Document represents a providers documented clinical note containing certain health and medical information. It may not contain the complete medical history for the patient and should be independently verified. The represented time in the document is Eastern Time PROVIDER ROUNDING NOTE COMPREHENSIVE Patient:?Navneet?Hussein,?1965,?57y,?M Dialysis?Location:[place] Attending?[employer]ting [employer] Feeder:?Bryce Service?Date:?02/10/2023 Service?Provider:?Marlin?Dequan,? I?met?face?to?face?with?the?patient?today. OVERVIEW The?patient?presented?with?ESRD?on?dialysis Primary?cause?of?renal?failure:?Polycystic?kidney,?adult?type Comments:??Remains?without?a?firm?residence,?social?impairme nts?with?diet,?medication?compliance.? He?is?to?move?back?into?his?trailer.?? He?continues?to?not?take?any?of?his?medications.?Ed&#16 0;today?he?needs?to?take?his?medications.?Will?have?CVS ?see?about?pill?packets?to?see?if?this?would?increase?his?compliance.? He?did?not?like?Lokelma?before?and?did?try?lactulose.&# 160;However?he?is?not?taking?this.?Ed?about?his?potassi um?is?high?and?this?can?cause?cardiac?arrest.?Ed?a bout?resuming?Lokelma?10?gm?on?non-dialysis?days.?He?sa id?he?well?try?it.?As?far?as?his?diet?he?eats ?what?ever?is?available?and?does?not?eat?low?potassium?or?phos?diet. On?going?education. 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 Is?not?on?any?BP?meds?currently?as?noted?above. Blood?pressure?controlled.? BP?Stand?Pre ??02/08/2023:?170/91 ??02/05/2023:?147/101 ??02/01/2023:?192/104 BP?Sit?Pre ??02/08/2023:?172/95 ??02/05/2023:?124/100 ??02/01/2023:?183/101 BP?Stand?Post ??02/08/2023:?118/72 ??02/05/2023:?120/86 ??02/01/2023:?151/97 BP?Sit?Post ??02/08/2023:?132/73 ??02/05/2023:?119/98 ??02/01/2023:?136/89 Tx?Duration ??02/08/2023:?3:58 ??02/05/2023:?4:12 ??02/01/2023:?4:05 Missed?Treatments 2?-?last?30?days 2?-?last?60?days 02/03?-?recent FLUID?ASSESSMENT Comments:?He?has?been?having?paracentesis?about?every?3rd week?now. Optimal?weight?discussed.?Diet?reviewed?with?patient.? EDW?(kg) ??02/08/2023:?78.6 ??02/05/2023:?78.6 ??02/01/2023:?78.6 Weight?Pre?(kg) ??02/08/2023:?85.3 ??02/05/2023:?85.1 ??02/01/2023:?87.3 Weight?Post?(kg) ??02/08/2023:?82.1 ??02/05/2023:?81.4 ??02/01/2023:?83.1 PWV?(kg) ??02/08/2023:?3.5 ??02/05/2023:?2.8 ??02/01/2023:?4.5 UF?Rate?(mL/kg/hr) ??02/08/2023:?9.8 ??02/05/2023:?10.8 ??02/01/2023:?12.4 ADEQUACY?ASSESSMENT Adequacy?target?met.?Prescription?compliance?acceptable.?No?changes?indicated.? spKt/V,?URR ??01/27/2023:?1.94,?80.0 ??12/23/2022:?1.61,?75.0 ??11/25/2022:?1.65,?75.0 ACCESS?ASSESSMENT ??Access?Type:?AVFistula ??Access?SubType:?Standard ??Access?Status:?Active?(In?Use)?-?06/05/2020 ??Access?Location:?Left?Forearm ??Created:?03/27/2020 Flow ??01/25/2023:?1053 ??01/11/2023:?1153 ??12/07/2022:?1871 Vascular?access?reviewed.?Current?access?is?permanent?and?functioning?well. ANEMIA?ASSESSMENT HGB?below?goal.? HGB,?TSAT ??02/05/2023:?9.5,?- ??01/27/2023:?8.6,?36.0 ??01/20/2023:?9.0,?- ?? Ferritin ??01/27/2023:?637.0 ??10/28/2022:?514.0 Mircera,?IVP?(mcg) ??02/05/2023:?150 ??01/20/2023:?100 ??12/09/2022:?150 Iron?Sucrose?(Venofer)?(mg) ??01/06/2023:?100 ??12/23/2022:?100 ??12/09/2022:?100 BMM?ASSESSMENT Comments:?Not?taking?any?home?medications,?states?he?does&#1 60;not?have?any:?also?states?all?medications?make?him?i ll,?Remains?non?compliant?with?therapy.? As?above PTH?elevated.?Calcium?controlled.?Phosphorus?elevated.?BMM?meds&# 160;adherence?not?acceptable.?Counseled?pt?on?meds?adherence.&#16 0;Diet?reviewed?with?patient.? Phosphorus,?Calcium ??01/27/2023:?10.5,?8.3 ??01/08/2023:?-,?9.5 ??01/06/2023:?7.1,?- ?? PTH,?Intact ??01/27/2023:?1312.0 ??12/23/2022:?1940.0 ??11/25/2022:?1968.0 Vitamin?D?(Calcitriol)?Oral?(mcg) ??02/08/2023:?2.25 ??02/05/2023:?2.25 ??02/01/2023:?2.0 NUTRITION?ASSESSMENT Comments:?Refuses?to?take?potassium?binders?in?the?past. He?states?he?will?try?Lokelma?again. Repeat?potassium?level. As?above Albumin,?Potassium ??02/05/2023:?-,?7.2 ??01/27/2023:?3.1,?6.5 ??01/20/2023:?-,?5.6 ?? eNPCR ??01/27/2023:?0.72 ??12/23/2022:?0.5 ??11/25/2022:?0.63 PHYSICAL?EXAM Exam?Performed.?Vital?Signs?Reviewed.?Lungs?-?Clear.?CV&#160 ;-?Blood?pressure?noted.?CV?-?Murmur?present.?CV?-&#160 ;RRR.?EXT?-?No?edema.?EXT?-?No?ulcers.?AVF/AVG?Positive?thrill/bruit. DIAGNOSIS Chief?Complaint:?N18.6?End?stage?renal?disease Patient?data?updated?02/10/2023?at?10:24?AM Signed?By:?Dequan,?Marlin,???on?02/10/2023?11:13:07?AM END OF DOCUMENT
--- NOTE | 2023-03-01 06:29 | PM.PN ---
Subjective Subjective: NO NEW COMPLAINTS Medications: Reviewed: Yes Vitals/I&O/Wt Last Vital Signs Temp 100.2 F H 03/01/23 03:50 Pulse 93 03/01/23 06:05 Resp 20 H 03/01/23 06:05 BP 149/73 03/01/23 06:05 Pulse Ox 90 03/01/23 06:05 O2 Del Method Nasal Cannula 02/28/23 23:20 O2 Flow Rate 6 02/28/23 23:20 02/28/23 02/28/23 03/01/23 14:59 22:59 06:59 Intake Total 300 / 300 300 / 600 Output Total 3300 / 3300 Balance 300 / 300 -3000 / -2700 Weight last 48 hrs Weight 91.7 kg Weight 92.986 kg Weight 81.647 kg Physical Exam Narrative: AWAKE ,A LERT NO DISTRESS s1s2 rrr PER REPORT LUNGS CLEAR PER REPORT NO EDEMA Data 03/01/23 03:27 03/01/23 03:27 A&P Assessment and plan (1) End stage renal disease on dialysis: Plan 1. End-stage renal disease: On MWF schedule as outpatient, last hemodialysis on Wednesday, S/P HD lastnight , HD again today 2. Hypertension: Blood pressure elevated, will restart all home meds 3. Acute hyperkalemia: Potassium is 7.5, status post medical management and HD as above 4. Anemia: Hemoglobin 8.8, will order RADHA 5. Acute on chronic respiratory failure: Multifactorial 6. Unstable angina-management per primary team Patient evaluated using audiovisual cart. Time spent 20 minutes Attestations Medical Necessity Statement*: per sera Coding Level of Care Code Acute Code for Chg Fwd Diagnoses End stage renal disease on dialysis N18.6; Z99.2
[2023-03-01 06:54] LABS: Complement C3 109 mg/dL (90-180)
[2023-03-01 07:13] LABS: Hepatitis B Core AB, Total Non-Reactive (Nonreactive); Hepatitis B Surface AB 21.5 (11.5-1000); Hepatitis B Surface Antigen Non-Reactive (Nonreactive)
[2023-03-01] MEDS: regadenoson 0.4 Mg/5 ml Syringe IVP (07:15)
[2023-03-01] MEDS: levothyroxine 75 mcg Tablet PO (08:52)
[2023-03-01] MEDS: metoprolol tartrate 50 mg Tablet PO (08:52)
[2023-03-01] MEDS: apixaban 5 mg Tablet PO (08:52)
[2023-03-01] MEDS: cloNIDine 0.1 mg Tablet PO ×2 (08:52→17:55)
[2023-03-01] MEDS: clopidogrel 75 mg Tablet PO (08:54)
[2023-03-01] MEDS: hyDRALAzine 50 mg Tablet PO ×2 (08:54→14:47)
[2023-03-01] MEDS: amiodarone 200 mg Tablet 400 MG PO (08:54)
[2023-03-01] MEDS: cholecalciferol (vitamin D3) 5,000 unit Tablet 5000 UNIT PO (08:55)
[2023-03-01] MEDS: lisinopril 20 mg Tablet PO (08:55)
--- NOTE | 2023-03-01 10:46 | PM.PN ---
Subjective Subjective: She gets dialysis Wednesday Plan for another session of dialysis Patient endorsing feeling better Stress test report is pending We will let him have renal diet hemoglobin stable Blood pressure relatively better Vitals/I&O/Wt Last Vital Signs Temp 98 F 03/01/23 08:00 Pulse 95 03/01/23 08:00 Resp 18 03/01/23 08:00 BP 155/71 03/01/23 08:52 Pulse Ox 91 03/01/23 08:00 O2 Del Method Nasal Cannula 02/28/23 23:20 O2 Flow Rate 6 02/28/23 23:20 02/28/23 03/01/23 03/01/23 22:59 06:59 14:59 Intake Total 300 / 300 300 / 600 Output Total 3300 / 3300 Balance 300 / 300 -3000 / -2700 Weight last 48 hrs Weight 91.7 kg Weight 92.986 kg Weight 81.647 kg Physical Exam Narrative: Signs of fluid overload present but improving Currently on 4 L nasal cannula GCS 15 Awake and alert Unkept appearance GCS 15 Crackles on lung auscultation Data 03/01/23 03:27 03/01/23 03:27 A&P Assessment and plan (1) Hyperkalemia: (2) Unstable angina: (3) Acute hyperkalemia: (4) Acute exacerbation of CHF (congestive heart failure): (5) End stage renal disease on dialysis: Plan End-stage renal disease Wednesday Another session of dialysis today Discharge later today versus tomorrow A-fib continue Eliquis and AV maida blocking agent Volume overload related to CHF end-stage renal disease Unstable angina stress test did not show any signs of coronary disease Troponin leak related to type II [place] Hyperkalemia: Resolved Acute on chronic hypoxia currently requiring 4 L of oxygen Anticipate improvement with dialysis Baseline uses 2 L of oxygen [facility] be [facility] Discharge likely tomorrow Active smoker Full code Attestations Medical Necessity Statement*: Discharge tomorrow Diagnoses Hyperkalemia E87.5 Unstable angina I20.0 Acute hyperkalemia E87.5 Acute exacerbation of CHF (congestive heart failure) I50.9 End stage renal disease on dialysis N18.6; Z99.2
[2023-03-01] MEDS: carvedilol 12.5 mg Tablet PO (17:55)
--- NOTE | 2023-03-01 21:15 | NMCV_ITS ---
NM ольга perf SPECT r/s* [id number] Navneet Savage Age: 57 Gender: M : 1965 Exam Date: 03/01/2023 06:35 Ordering Phys: Deborah Singh MD Technologist: RONNA Villa Exam Location: [facility] Indications: CHEST PAIN STRESS TEST Please see separate stress test report in [facility] for full findings IMAGE PROTOCOL Rest/Stress 1 Lexiscan Day Radiopharmaceutical Dose (mCi) Administration Site Administered by Rest: Tc-99m 10.6 IV RONNA Hi Sestamibi Stress:Tc-99m 32.9 IV RONNA Hi Sestamibi Rest: 01-Mar-2023 60 Discovery 630 Stress: 01-Mar-2023 30 Discovery 630 0.4mg Lexiscan. Supine position only as patient was unable to lay prone. SPECT RESULTS Technical Quality: Excellent Raw Data Analysis: Normal Image Corrections: No attenuation or motion correction applied Summed Stress Score: 1 Summed Rest Score: 2 Summed Difference Score: 1 PERFUSION FINDINGS There is medium sized reduced radiotracer uptake in the inferior and inferolateral mcdaniels that improves on stress imaging. This is consistent with attenuation artifact. No evidence of ischemia FUNCTIONAL RESULTS (calculated via Gated SPECT) Stress Image LV EF (%): 65 Stress EDV (mL):167 TID: 0.98 Stress ESV (mL):58 FUNCTIONAL FINDINGS: There is normal left ventricular systolic function. IMPRESSIONS 1. Attenuation artifact noted in the inferior and inferolateral mcdaniels. No evidence of ischemia 2. LV systolic function is normal Saurabh Fitzpatrick MD (Electronically Signed) Final Date: 01 March 2023 10:30 S
[2023-03-02] MEDS: guaiFENesin 600 mg Tablet PO (02:47)
[2023-03-02 03:48] VITALS: BP 159/76; PULSE 84; RESP 21; TEMP 36.7; O2SAT 100
[2023-03-02] MEDS: lisinopril 20 mg Tablet 40 MG PO (05:37)
[2023-03-02] MEDS: amlodipine 10 mg Tablet PO (05:37)
[2023-03-02 05:52] LABS: Anion Gap 15.5 (5-19); Blood Urea Nitrogen 26 mg/dL (6-20); Calcium 10.4 mg/dL (8.5-10.5); Carbon Dioxide 30 mmol/L (22-29); Chloride 98 mmol/L (98-107); Glomerular Filtration Rate 18.8 mL/min (90-130); Glucose 85 mg/dL (65-115); Osmolality Calculated 290 mOsm/kg (285-295); Potassium 5.5 mmol/L (3.5-5.1); Sodium 138 mmol/L (136-145)
[2023-03-02 06:00] VITALS: PULSE 86
[2023-03-02 07:47] VITALS: BP 137/72; PULSE 81; RESP 19; TEMP 36.4; O2SAT 93
[2023-03-02 09:30] VITALS: PULSE 78; RESP 16; O2SAT 98
[2023-03-02] MEDS: apixaban 5 mg Tablet PO (10:12)
[2023-03-02] MEDS: cholecalciferol (vitamin D3) 5,000 unit Tablet 5000 UNIT PO (10:13)
[2023-03-02] MEDS: amiodarone 200 mg Tablet 400 MG PO (10:13)
[2023-03-02] MEDS: metoprolol tartrate 50 mg Tablet PO (10:14)
[2023-03-02] MEDS: carvedilol 12.5 mg Tablet PO (10:14)
[2023-03-02] MEDS: clopidogrel 75 mg Tablet PO (10:14)
[2023-03-02] MEDS: levothyroxine 75 mcg Tablet PO (10:15)
[2023-03-02 10:16] VITALS: BP 137/72
[2023-03-02] MEDS: hyDRALAzine 50 mg Tablet PO (10:16)
[2023-03-02] MEDS: cloNIDine 0.1 mg Tablet PO (10:16)
[2023-03-02] MEDS: NON-FORMULARY MEDICATION (Cinacalcet 30 mg tablet) 30 EACH PO (10:17)
[2023-03-02] MEDS: NON-FORMULARY MEDICATION (Vit B,C-Fa-Zinc-Selen-Vit D3-E [Renaplex-D] 800 mcg-12.5 mg -2,0 1 EACH PO (10:19)
--- NOTE | 2023-03-02 10:31 | PM.DCS ---
Discharge Providers Date of Admission: 02/28/23 21:15 Date of Discharge: March 02, 2023 Attending Provider at Admission: Deborah Singh MD Attending Provider at Discharge: Deborah Singh MD Primary Care Provider: Randolph Ortiz MD Diagnoses at Discharge Discharge Diagnosis (1) Hyperkalemia: Status: Acute (2) Unstable angina: Status: Acute (3) Acute hyperkalemia: Status: Acute (4) Acute exacerbation of CHF (congestive heart failure): Status: Acute (5) End stage renal disease on dialysis: Status: Acute Reason for Visit Reason for Visit: sob, chest pain Hospital Course Hospital Course 57-year male who was recently discharged from the hospital after management of non-STEMI and noncompliance with his dialysis days presented back with chief complaint of worsening shortness of breath, this time we went for the stress test which was unremarkable no coronary ischemia is evident on stress test, his hyperkalemia improved with dialysis, patient is requiring 2 L of oxygen which is his baseline requirement, I am holding his lisinopril a few days to avoid hyperkalemic events patient is stating that he did not miss any dialysis days, he may need more ultrafiltration to avoid hypervolemic state in future. He still smoking, noncompliant. Physical Exam Narrative: Awake and alert GCS 15 currently on 2 L Signs of fluid load improving S1, S2 Abdomen soft Pleasant and cooperative Discharge Data Studies Completed and Pending Completed Studies During Hospitalization Category Date Time Status Sestamibi Stress Test Request Routine Exams 02/28/23 21:15 Draft XR chest 1V portable 10110 Stat Exams 02/28/23 16:31 Completed NM ольга perf SPECT r/s* [id number] Routine Nuc Med 03/01/23 21:15 Completed Radiology Impressions Chest X-Ray 02/28/23 16:31 IMPRESSION: Congestive heart failure pattern. Laboratory Results WBC 5.75 10^3/uL (3.29-11.43) 03/01/23 03:27 RBC 2.73 10^6/uL (3.85-5.65) L 03/01/23 03:27 Hgb 8.40 g/dL (11.27-16.99) L 03/01/23 03:27 Hct 27.0 % (37-53) L 03/01/23 03:27 MCV 98.9 fl (82-101) 03/01/23 03:27 MCH 30.8 pg (27-33) 03/01/23 03:27 MCHC 31.1 g/dL (30-55) 03/01/23 03:27 RDW 16.9 % (12.1-15.1) H 03/01/23 03:27 Plt Count 231 10^3/cmm (157-399) 03/01/23 03:27 MPV 9.7 fL (7.4-10.4) 03/01/23 03:27 Neut % (Auto) 73.8 % 03/01/23 03:27 Lymph % (Auto) 11.0 % 03/01/23 03:27 [place] % (Auto) 11.8 % 03/01/23 03:27 Eos % (Auto) 2.4 % 03/01/23 03:27 Baso % (Auto) 0.7 % 03/01/23 03:27 Neut # (Auto) 4.24 10^3/uL (1.8-7.7) 03/01/23 03:27 Lymph # (Auto) 0.6 10^3/uL (0.8-4.8) L 03/01/23 03:27 [place] # (Auto) 0.7 10^3/uL (0.2-0.9) 03/01/23 03:27 Eos # (Auto) 0.1 10^3/uL (0.0-0.8) 03/01/23 03:27 Baso # (Auto) 0.0 10^3/uL (0.0-0.1) 03/01/23 03:27 Nucleated RBC % (auto) 0 % 03/01/23 03:27 Nucleated RBCs # 0.0 /100WBC 03/01/23 03:27 Sodium 138 mmol/L (136-145) 03/02/23 05:14 Potassium 5.5 mmol/L (3.5-5.1) H 03/02/23 05:14 Chloride 98 mmol/L (98-107) 03/02/23 05:14 Carbon Dioxide 30 mmol/L (22-29) H 03/02/23 05:14 Anion Gap 15.5 (5-19) 03/02/23 05:14 BUN 26 mg/dL (6-20) H 03/02/23 05:14 Creatinine 3.4 mg/dL (0.7-1.2) H 03/02/23 05:14 GFR Calculation 18.8 mL/min (90-130) L 03/02/23 05:14 Glucose 85 mg/dL (65-115) 03/02/23 05:14 Calculated Osmolality 290 mOsm/kg (285-295) 03/02/23 05:14 Calcium 10.4 mg/dL (8.5-10.5) 03/02/23 05:14 Magnesium 2.0 mg/dL (1.7-2.3) 03/01/23 03:27 Total Bilirubin 0.4 mg/dL (0.15-1.2) 02/28/23 16:59 AST 21 U/L (0-40) 02/28/23 16:59 ALT 14 U/L (0-41) 02/28/23 16:59 Alkaline Phosphatase 132 U/L (40-130) H 02/28/23 16:59 Troponin T Baseline 279 ng/L (0-15) H* 02/28/23 16:59 Troponin T 120 Minute 285.7 ng/L (0-15) H 02/28/23 19:09 Delta Troponin T 6.7 ABS# (0-10) 02/28/23 19:09 Troponin T Hi Sens 6Hr 306.4 ng/L (0-15) H 02/28/23 21:05 Troponin T Hi Sens 6Hr Delta 27.4 ng/L (0-12) H* 02/28/23 21:05 C-Reactive Protein 38.1 mg/L (0.0-4.9) H 03/01/23 03:27 Total Protein 5.6 g/dL (6.6-8.7) L 02/28/23 16:59 Albumin 3.2 g/dL (3.5-5.2) L 02/28/23 16:59 Globulin 2.4 g/dL (1.3-4.6) 02/28/23 16:59 Complement C3 109 mg/dL (90-180) 03/01/23 03:27 Hep Bs Antigen Non-reactive (Nonreactive) 03/01/23 03:27 Hep Bs Antibody 21.5 (11.5-1000) 03/01/23 03:27 Hep B Core Total Ab Non-reactive (Nonreactive) 03/01/23 03:27 Vitals Last Vital Signs Temp 97.5 F L 03/02/23 07:47 Pulse 78 03/02/23 09:30 Resp 16 03/02/23 09:30 BP 137/72 03/02/23 10:16 Pulse Ox 98 03/02/23 09:30 O2 Del Method Nasal Cannula 03/02/23 09:30 O2 Flow Rate 4 03/02/23 09:30 Discharge Plan Discharge Patient Disposition: Home Condition: Stable Prescriptions: Continued cholecalciferol (vitamin D3) 125 mcg (5,000 unit) capsule 125 mcg PO QAM hydroxyzine HCl 25 mg tablet 25 mg PO QID PRN (Reason: Itching) Qty: 120 4RF levothyroxine 75 mcg tablet 75 mcg PO DAILY 30 Days Qty: 60 2RF cinacalcet 30 mg tablet 30 mg PO QAM clopidogrel 75 mg tablet 75 mg PO QAM Eliquis 5 mg tablet 5 mg PO QAM clonidine HCl 0.2 mg tablet 0.1 mg PO BID 30 Days Qty: 60 4RF hydralazine 50 mg tablet 50 mg PO TID 30 Days Qty: 90 0RF ondansetron 4 mg tablet,disintegrating 4 mg PO Q8H PRN (Reason: nausea and vomiting) Qty: 14 0RF atorvastatin 40 mg tablet 40 mg PO BEDTIME amlodipine 10 mg tablet 10 mg PO QAM Veltassa 8.4 gram powder in packet 8.4 g PO DAILY carvedilol 12.5 mg tablet 12.5 mg PO BID sertraline 50 mg tablet 50 mg PO QAM lactulose 10 gram/15 mL solution See Rx Instructions .ROUTE .COMPLEX Rx Instructions: 15 mL orally ON NON DIALYSIS DAYS- WEDNESDAY, WEDNESDAY, WEDNESDAY AND WEDNESDAY Auryxia 210 mg iron tablet 2 tab PO TID RenaPlex-D 800 mcg-12.5 mg -2,000 unit tablet 1 tab PO DAILY amiodarone 400 mg tablet 400 mg PO DAILY isosorbide mononitrate 60 mg tablet extended release 24 hr 30 mg PO QAM metoprolol tartrate 50 mg tablet 50 mg PO DAILY nitroglycerin 0.4 mg tablet, sublingual 0.4 mg sublingual DIRECTED PRN (Reason: Chest Pain) Held lisinopril 40 mg tablet 40 mg PO QAM Hold Instructions: Resume on 03/05/23. Discharge Orders: Discharge Order (Routine); Ordered 03/02/23 Ordered By: Deborah Singh Referrals: Randolph Ortiz MD [Primary Care Provider] - Patient Instructions: Dialysis Diet (DC), Hemodialysis (DC), Opioid Safety Discharge Attestations Time Spent in Discharge Care*: greater than 30 min Quality Metrics Clinical Quality Measures [ No reported AMI, CVA or VTE this stay] Coding Level of Care Code Acute Code for Chg Fwd Diagnoses Hyperkalemia E87.5 Unstable angina I20.0 Acute hyperkalemia E87.5 Acute exacerbation of CHF (congestive heart failure) I50.9 End stage renal disease on dialysis N18.6; Z99.2
== END 2023-03-02 11:35 | disposition home or self-care (01) | DRG 640 ==
LOC: ER 17:54 → ICU 21:27 → MEDSURG 03-01 16:59
PROVIDERS: Hospitalist; Admitting Provider Internal Medicine; Emergency Provider Family Medicine; PCP Family Medicine; Visit Provider Internal Medicine
DX: E87.5 Hyperkalemia (principal); I21.A1 Myocardial infarction type 2; N18.6 End stage renal disease; J96.21 Acute and chronic respiratory failure with hypoxia; I13.2 Hypertensive heart and chronic kidney disease with heart failure and with stage 5 chronic kidney disease, or end stage renal disease; I50.9 Heart failure, unspecified; Z99.2 Dependence on renal dialysis; Z79.02 Long term (current) use of antithrombotics/antiplatelets; Z79.01 Long term (current) use of anticoagulants; Z99.81 Dependence on supplemental oxygen; D63.1 Anemia in chronic kidney disease; I48.91 Unspecified atrial fibrillation; Z86.73 Personal history of transient ischemic attack (TIA), and cerebral infarction without residual deficits; K21.9 Gastro-esophageal reflux disease without esophagitis; M10.9 Gout, unspecified; E03.9 Hypothyroidism, unspecified; F32.9 Major depressive disorder, single episode, unspecified; F17.210 Nicotine dependence, cigarettes, uncomplicated; I25.2 Old myocardial infarction; I25.10 Atherosclerotic heart disease of native coronary artery without angina pectoris; I16.0 Hypertensive urgency
CPT/HCPCS: 36415; 71045; 78452; 80048; 80053; 83735; 84484; 85025; 86140; 86160; 86705; 86706; 87340; 90935; 93005; 93017; 94640; 96374; 99285; A9500; J2785; J3490; J7613; Q3014; Q4081

== ENCOUNTER 2023-03-09 11:17 | Day surgery (SDC) | payer MEDICARE, MEDICAID, SELFPAY ==
--- NOTE | 2023-03-09 11:25 | US_ITS ---
WS: [id number] ULTRASOUND-GUIDED THERAPEUTIC PARACENTESIS Procedure, risks, and complications have been explained to the patient. Consent is obtained. Utilizing aseptic technique and 1% buffered lidocaine, a small dermatome was made through which a 5 F rench Yueh catheter was inserted. Approximately 3500 ml of clear peritoneal fluid was obtained witho ut difficulty. No complications encountered. IMPRESSION: Uncomplicated paracentesis yielding 3500 ml of peritoneal fluid.
[2023-03-09 11:37] VITALS: BP 158/89; PULSE 80; RESP 18; TEMP 36.6; O2SAT 99; BMI 29.0
[2023-03-09] MEDS: albumin 75 G/300 ML BAG 999 G IV (12:20)
== END 2023-03-09 13:06 | disposition home or self-care (01) ==
PROVIDERS: Radiology Diagnostic Radiology; PCP Family Medicine; Visit Provider Internal Medicine Nephrology
PROC: (CPT 49082; principal; 2023-03-09 12:00)
DX: R18.8 Other ascites (principal)
CPT/HCPCS: 49083; 96365; P9046

== ENCOUNTER 2023-03-16 11:02 | Day surgery (SDC) | payer MEDICARE, MEDICAID, SELFPAY ==
--- NOTE | 2023-03-16 11:12 | US_ITS ---
WS: [id number] ULTRASOUND-GUIDED PARACENTESIS CLINICAL INFORMATION: ascites COMPARISON: None. Procedure Informed consent: The risks, benefits, and alternatives of the procedure were discussed with the lisa ent. Verbal and written consent was obtained. Timeout: A timeout was performed to confirm the correct patient, procedure, and site. Preparation: A suitable skin site was identified. The patient was prepped and draped in usual sterile fashion. Lidocaine 1% was used for local anesthesia. Catheter: 4 [place] One-step Yueh catheter. Side: LEFT lower quadrant. Fluid Volume: 1950 ml Color: Clear yellow DISPOSITION: Discarded safely. Complications: None. Patient disposition: Discharged from the department in stable condition. IMPRESSION: Uncomplicated ultrasound-guided paracentesis. Removal of 1950 cc
[2023-03-16 11:15] VITALS: BP 129/74; PULSE 73; RESP 18; TEMP 37.3; O2SAT 97; BMI 33.8
[2023-03-16] MEDS: albumin 75 G/300 ML BAG 999 G IV (12:08)
== END 2023-03-16 12:49 | disposition home or self-care (01) ==
LOC: GILAB 11:03
PROVIDERS: Radiology Neuroradiology; PCP Family Medicine; Visit Provider Internal Medicine Nephrology
PROC: (CPT 49082; principal; 2023-03-16 12:00)
DX: R18.8 Other ascites (principal)
CPT/HCPCS: 49083; 96365; P9046

== ENCOUNTER 2023-03-18 14:15 | Emergency (ER) | payer MEDICARE, MEDICAID, SELFPAY ==
[2023-03-18 14:44] VITALS: BP 101/58; PULSE 63; RESP 16; TEMP 36.6; O2SAT 100; BMI 16.9
--- NOTE | 2023-03-18 15:35 | ECG_ITS ---
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 Measurements Intervals [place] Rate: 65 P: 60 IA: 206 QRS: -35 QRSD: 102 T: -22 QT: 437 QTc: 457 Interpretive Statements SINUS RHYTHM WITH OCCASIONAL SUPRAVENTRICULAR PREMATURE COMPLEXES LEFT AXIS DEVIATION [QRS AXIS < -30] NONSPECIFIC T-WAVE ABNORMALITY Compared to ECG 02/28/2023 18:53:06 T-wave abnormality now present Electronically Signed On 03-18-2023 16:39:15 CDT by Dora Mustafa M.D. [id number]
--- NOTE | 2023-03-18 15:47 | W.ED.GENADLT ---
HPI - General Adult General: Chief complaint: General Medical Stated complaint: High BP Time Seen by Provider: 03/18/23 14:43 History of Present Illness: 57-year-old male who is very well-known to this emergency department states that his blood pressure was high at home. He says between noon and 1:00 it was 190s over 60s. Patient reports he freaked myself out . At that point time he took his blood pressure medication for the day. Blood pressure during my history and physical ranges from 115-124 systolic over 60s. Patient reports he had dialysis yesterday. Patient was initially on 4 L but was 100%. I turned him down to his baseline 2 L of oxygen by nasal cannula. No respiratory symptoms. Patient denies any other acute concerns. He thinks he just got over anxious. Review of Systems General: Reports: 10 or more systems reviewed and unremarkable except in HPI and below Narrative: Elevated blood pressure, anxiety. Does not endorse chest pain, shortness of breath, syncope, diaphoresis, nausea, vomiting PFSH ED PFSH: Medical History Accelerated hypertension Acute hyperkalemia Acute hyperkalemia Acute hyperkalemia Altered mental status Anemia in chronic kidney disease Ascites Nephrogenic ascites Ascites gets regular paracentesis Atrial fibrillation with RVR Bilateral hydronephrosis Chest pain Chronic anemia CVA (cerebral vascular accident) Dilated aortic root Elevated troponin I level End stage renal disease on dialysis GERD (gastroesophageal reflux disease) Gout History of stroke Hypertension Hypertension Hypoglycemia Hypothyroidism Incomplete bladder emptying Major depressive disorder Malaise Neuropathy, lumbosacral (radicular) Polycystic kidney disease Right bundle branch block (RBBB) on electrocardiogram (ECG) Shortness of breath Tobacco use disorder Surgical History AV fistula left arm History of colonoscopy 2019 at [facility] History of surgical procedure Peritoneal dialysis catheter placement by Dr. Kamara 2015 S/P hemodialysis catheter insertion (03/13/20) 23cm long exchanged right IJ Removed on 06/11/2020 Family History Mother Chronic kidney disease (CKD) Stroke Father Cancer lung Brother Hypertension Other End stage renal disease on dialysis Denies family history of Diabetes CAD (coronary artery disease) Clotting disorder Dementia Hyperlipidemia Psychiatric illness Anesthesia complication Bleeding disorder Lung disease Social History Smoking and tobacco/nicotine status: current every day tobacco/nicotine user cigarettes Packs smoked per day: 1 [ Other cigarette details: Half a pack per day for last 20-30 years] Alcohol intake: never Substance/Drug Use: current Substance/Drug use frequency: few times a week Marital status: Number of children: 1 Current occupational status: disabled Current gender identity: Male Agree to transfusion: Yes Physical Exam Narrative: EXAM NARRATIVE: when I originally went into the room, patient did fall asleep. He awakes to voice. Patient appears older than stated age. He is in no acute distress. He is deconditioned. He has a left upper extremity AV fistula with a thrill. His lungs are clear. On cardiac exam he has a regular rate and rhythm but has a murmur, could be related to the fistula. Blood pressure is 115/63. Const: COMMON NORMALS: no limitations and alert EXAM LIMITATIONS: no altered mental status HENMT: COMMON NORMALS: normocephalic, atraumatic and external ears normal HEAD & SCALP: normocephalic and atraumatic EXTERNAL EAR: Yes external ears normal MOUTH: no muffled voice Eye: COMMON NORMALS: conjunctivae normal and no scleral icterus CONJUNCTIVA: Yes conjunctivae normal Neck/C-Spine: COMMON NORMALS: no JVD GENERAL: Yes normal visual inspection and Yes trachea midline Resp: COMMON NORMALS: normal respiratory effort, No use of accessory muscles and clear to auscultation bilaterally AUSCULTATION: clear to auscultation bilaterally Cardio: COMMON NORMALS: no JVD, regular rate and regular rhythm RATE: regular rate RHYTHM: regular rhythm Extremity: COMMON NORMALS: normal to inspection Neuro: COMMON NORMALS: no focal motor deficits SENSORIUM/ORIENTATION: Yes alert SPEECH: speech normal Psych: COMMON NORMALS: mental status grossly normal, Normal thought process present, cooperative and speech normal SPEECH: Yes normal speech THOUGHT PROCESS: Normal thought process present Skin: COMMON NORMALS: no jaundice Course Vital Signs: Vital signs: Vital Signs Temperature 97.8 F 03/18/23 14:44 Pulse Rate 63 03/18/23 14:44 Respiratory Rate 16 03/18/23 14:44 Blood Pressure 101/58 10/26/23 14:44 Pulse Oximetry 100 03/18/23 14:44 Oxygen Delivery Me thod Nasal Cannula 03/18/23 14:44 Oxygen Flow Rate 4 03/18/23 14:44 MDM - General Adult Medical Decision Making Chronic venous hypertension. Patient took his blood pressure and it was elevated. He took his daily blood pressure medications for his high blood pressure and it improved. No symptoms. At this time, no indication for further work-up or treatment since the blood pressure medications have resolved his hypertension. No radiology studies performed this visit Discharge Plan Discharge Patient Disposition: Home Clinical Impression: Chronic venous hypertension, Encounter for medical screening examination Condition: Stable Prescriptions: No Action cholecalciferol (vitamin D3) 125 mcg (5,000 unit) capsule 125 mcg PO QAM hydroxyzine HCl 25 mg tablet 25 mg PO QID PRN (Reason: Itching) Qty: 120 4RF levothyroxine 75 mcg tablet 75 mcg PO DAILY 30 Days Qty: 60 2RF cinacalcet 30 mg tablet 30 mg PO QAM clopidogrel 75 mg tablet 75 mg PO QAM Eliquis 5 mg tablet 5 mg PO QAM clonidine HCl 0.2 mg tablet 0.1 mg PO BID 30 Days Qty: 60 4RF hydralazine 50 mg tablet 50 mg PO TID 30 Days Qty: 90 0RF ondansetron 4 mg tablet,disintegrating 4 mg PO Q8H PRN (Reason: nausea and vomiting) Qty: 14 0RF atorvastatin 40 mg tablet 40 mg PO BEDTIME amlodipine 10 mg tablet 10 mg PO QAM lisinopril 40 mg tablet 40 mg PO QAM Hold Instructions: Resume on 03/05/23. Veltassa 8.4 gram powder in packet 8.4 g PO DAILY carvedilol 12.5 mg tablet 12.5 mg PO BID sertraline 50 mg tablet 50 mg PO QAM lactulose 10 gram/15 mL solution See Rx Instructions .ROUTE .COMPLEX Rx Instructions: 15 mL orally ON NON DIALYSIS DAYS- WEDNESDAY, WEDNESDAY, WEDNESDAY AND WEDNESDAY Auryxia 210 mg iron tablet 2 tab PO TID RenaPlex-D 800 mcg-12.5 mg -2,000 unit tablet 1 tab PO DAILY amiodarone 400 mg tablet 400 mg PO DAILY isosorbide mononitrate 60 mg tablet extended release 24 hr 30 mg PO QAM metoprolol tartrate 50 mg tablet 50 mg PO DAILY nitroglycerin 0.4 mg tablet, sublingual 0.4 mg sublingual DIRECTED PRN (Reason: Chest Pain) Discharge Orders: Discharge ED (Routine); Ordered 03/18/23 Ordered By: Berto Mesa Referrals: Randolph Ortiz MD [Primary Care Provider] - Patient Instructions: Hypertension (ED), Pain Management Coding Level of Care Code ED [employer] Officer for Eric Sandhu
[2023-03-18 15:48] VITALS: BP 105/68; PULSE 66; RESP 16; O2SAT 97; O2SAT 98
[2023-03-18 15:53] VITALS: BP 105/68; PULSE 78; RESP 19; O2SAT 98
== END 2023-03-18 16:00 | disposition home or self-care (01) ==
PROVIDERS: Emergency Provider Emergency Medicine; PCP Family Medicine
DX: I12.0 Hypertensive chronic kidney disease with stage 5 chronic kidney disease or end stage renal disease (principal); N18.6 End stage renal disease; Z99.2 Dependence on renal dialysis; Z86.73 Personal history of transient ischemic attack (TIA), and cerebral infarction without residual deficits; F17.210 Nicotine dependence, cigarettes, uncomplicated
CPT/HCPCS: 93005; 99283

== ENCOUNTER 2023-03-23 11:27 | Day surgery (SDC) | payer MEDICARE, MEDICAID, SELFPAY ==
--- NOTE | 2023-03-23 11:35 | US_ITS ---
WS: [id number] ULTRASOUND-GUIDED THERAPEUTIC PARACENTESIS Procedure, risks, and complications have been explained to the patient. Consent is obtained. Utilizing aseptic technique and 1% buffered lidocaine, a small dermatome was made through which a 5 F rench Yueh catheter was inserted. Approximately 1900 ml of clear peritoneal fluid was obtained witho ut difficulty. No complications encountered. IMPRESSION: Uncomplicated paracentesis yielding 1900 ml of peritoneal fluid.
[2023-03-23 11:37] VITALS: BP 134/77; PULSE 68; RESP 18; TEMP 36.8; BMI 28.1
[2023-03-23] MEDS: albumin 75 G/300 ML BAG 999 G IV (12:28)
--- NOTE | 2023-03-23 12:51 | PC.NURSE ---
Patient reported he has black tarry stools. This RN called and spoke with Dr. Ortiz about the black tarry stools. Dr. Ortiz agreed patient needs to be evaluate in ER. This RN explained to the patient he needs to be seen in the ER for the black tarry stools. At this time patient is refusing to go.
--- NOTE | 2023-03-23 12:58 | PC.NURSE ---
Patient finally agreed to be evaulated in the ER. Report called to the ER and given to PRINCE Martell. Patient transported to ER registration with IV in place.
== END 2023-03-23 13:06 | disposition home or self-care (01) ==
LOC: GILAB 11:27
PROVIDERS: Radiology Diagnostic Radiology; PCP Family Medicine; Visit Provider Internal Medicine Nephrology
PROC: (CPT 49082; principal; 2023-03-23 12:00)
DX: R18.8 Other ascites (principal)
CPT/HCPCS: 49083; 96365; P9046

== ENCOUNTER 2023-03-23 13:01 | Emergency (ER) | payer MEDICARE, MEDICAID, SELFPAY ==
[2023-03-23 13:18] VITALS: BP 127/70; PULSE 67; RESP 18; TEMP 36.4; O2SAT 99; BMI 28.1
[2023-03-23 13:55] LABS: Basophils % 0.5 %; Eosinophils # 0.2 10^3/uL (0.0-0.8); Eosinophils % 2.8 %; Hematocrit 26.2 % (37-53); Lymphocytes % 17.6 %; Mean Corpuscular HGB Conc 31.3 g/dL (30-55); Mean Corpuscular Hemoglobin 31.2 pg (27-33); Mean Corpuscular Volume 99.6 fl (82-101); Mean Platelet Volume 8.9 fL (7.4-10.4); Monocytes # 0.7 10^3/uL (0.2-0.9); Monocytes % 12.2 %; Neutrophils % 66.4 %; Nucleated Red Blood Cells % 0.3 %; Platelet Count 252 10^3/cmm (157-399); Red Blood Count 2.63 10^6/uL (3.85-5.65); Red Cell Distribution Width 16.6 % (12.1-15.1); White Blood Count 5.73 10^3/uL (3.29-11.43)
--- NOTE | 2023-03-23 14:10 | ED_ITS ---
HPI - GI Bleed General: Chief complaint: GI Bleed Stated complaint: blood in stool Time Seen by Provider: 03/23/23 13:32 History of Present Illness: Patient presents to the ER with complaints of blood in his stool the last several days. Patient reports stools being dark. Patient denies abdominal pain at this time. Just soon as I entered the room patient In attitude and got sarca stic and mildly saying its about time he showed up when asked what I could do for him he says well I guess he can just send me home. Review of Systems General: Reports: 10 or more systems reviewed and unremarkable except in HPI and below PFSH ED PFSH: Medical History Accelerated hypertension Acute exacerbation of CHF (congestive heart failure) Acute hyperkalemia Acute hyperkalemia Acute hyperkalemia Acute hyperkalemia Altered mental status Anemia in chronic kidney disease Ascites Nephrogenic ascites Ascites gets regular paracentesis Atrial fibrillation with RVR Bilateral hydronephrosis Chest pain Chronic anemia CVA (cerebral vascular accident) Dilated aortic root Elevated troponin I level End stage renal disease on dialysis End stage renal disease on dialysis GERD (gastroesophageal reflux disease) Gout History of stroke Hyperkalemia Hypertension Hypertension Hypoglycemia Hypothyroidism Incomplete bladder emptying Major depressive disorder Malaise Neuropathy, lumbosacral (radicular) Polycystic kidney disease Right bundle branch block (RBBB) on electrocardiogram (ECG) Shortness of breath Tobacco use disorder Unstable angina Surgical History AV fistula left arm History of colonoscopy 2019 at [facility] History of surgical procedure Peritoneal dialysis catheter placement by Dr. Kamara 2015 S/P hemodialysis catheter insertion (03/13/20) 23cm long exchanged right IJ Removed on 06/11/2020 Family History Mother Chronic kidney disease (CKD) Stroke Father Cancer lung Brother Hypertension Other End stage renal disease on dialysis Denies family history of Diabetes CAD (coronary artery disease) Clotting disorder Dementia Hyperlipidemia Psychiatric illness Anesthesia complication Bleeding disorder Lung disease Social History Smoking and tobacco/nicotine status: current every day tobacco/nicotine user ci garettes Packs smoked per day: 1 [ Other cigarette details: Half a pack per day for last 20-30 years] Alcohol intake: never Substance/Drug Use: current Substance/Drug use frequency: few times a week Marital status: Number of children: 1 Current occupational status: disabled Current gender identity: Male Agree to transfusion: Yes Physical Exam Const: COMMON NORMALS: no acute distress, average body habitus, patient oriented x3, no limitations, healthy appearing, alert and well nourished HENMT: COMMON NORMALS: normocephalic, atraumatic, hearing grossly normal bilaterally, external ears normal, Normal external nose present, moist oral mucous membranes and oropharynx normal HEAD & SCALP: normocephalic and atraumatic NOSE: Normal external nose present EXTERNAL EAR: Yes external ears normal Eye: COMMON NORMALS: Equal, round and reactive pupils present PUPIL: Yes Equal, round and reactive pupils present Chest: COMMONS NORMALS: normal inspection of the chest Neuro: COMMON NORMALS: patient oriented x3 SENSORIUM/ORIENTATION: Yes alert Psych: COMMON NORMALS: mental status grossly normal, Normal thought process present, cooperative, normal affect, speech normal and activity/motor behavior normal SPEECH: Yes normal speech THOUGHT PROCESS: Normal thought process present Course Vital Signs: Vital signs: Vital Signs Temperature 97.6 F 03/23/23 13:18 Pulse Rate 67 03/23/23 13:18 Respiratory Rate 18 03/23/23 13:18 Blood Pressure 127/70 03/23/23 13:18 Pulse Oximetry 99 03/23/23 13:18 Oxygen Delivery Me thod Nasal Cannula 03/23/23 13:18 Oxygen Flow Rate 2 03/23/23 13:18 MDM - GI Bleed Medical Decision Making Patient presents to the ER with a history of blood in his stools and dark stools and being on blood thinners. Hemoglobin was obtained which is 8.2 which is consistent with the patient's past hemoglobins in the eights. Patient will be discharged home to follow-up with his primary care physician CMP is pending Differential Diagnosis Likely hematochezia and melena; Unlikely hemorrhoids, infectious diarrhea, esophageal varices, gastritis, Elyse-Hargrove syndrome, Upper gastrointestinal hemorrhage, Lower gastrointestinal hemorrhage or anal fissure Medical Records I reviewed the patient's medical records. Lab Data I reviewed the patient's lab results. 03/23/23 13:48 03/23/23 13:48 Laboratory Results WBC 5.73 10^3/uL (3.29-11.43) 03/23/23 13:48 RBC 2.63 10^6/uL (3.85-5.65) L 03/23/23 13:48 Hgb 8.20 g/dL (11.27-16.99) L 03/23/23 13:48 Hct 26.2 % (37-53) L 03/23/23 13:48 MCV 99.6 fl (82-101) 03/23/23 13:48 MCH 31.2 pg (27-33) 03/23/23 13:48 MCHC 31.3 g/dL (30-55) 03/23/23 13:48 RDW 16.6 % (12.1-15.1) H 03/23/23 13:48 Plt Count 252 10^3/cmm (157-399) 03/23/23 13:48 MPV 8.9 fL (7.4-10.4) 03/23/23 13:48 Neut % (Auto) 66.4 % 03/23/23 13:48 Lymph % (Auto) 17.6 % 03/23/23 13:48 [place] % (Auto) 12.2 % 03/23/23 13:48 Eos % (Auto) 2.8 % 03/23/23 13:48 Baso % (Auto) 0.5 % 03/23/23 13:48 Neut # (Auto) 3.80 10^3/uL (1.8-7.7) 03/23/23 13:48 Lymph # (Auto) 1.0 10^3/uL (0.8-4.8) 03/23/23 13:48 [place] # (Auto) 0.7 10^3/uL (0.2-0.9) 03/23/23 13:48 Eos # (Auto) 0.2 10^3/uL (0.0-0.8) 03/23/23 13:48 Baso # (Auto) 0.0 10^3/uL (0.0-0.1) 03/23/23 13:48 Nucleated RBC % (auto) 0.3 % 03/23/23 13:48 Nucleated RBCs # 0.0 /100WBC 03/23/23 13:48 PT 15.60 SECONDS (12.1-14.9) H 03/23/23 13:48 INR 1.20 (0.8-1.2) 03/23/23 13:48 No radiology studies performed this visit Discharge Plan Discharge Patient Disposition: Home Clinical Impression: Acute lower GI bleeding, Anticoagulation adequate Condition: Stable Prescriptions: No Action cholecalciferol (vitamin D3) 125 mcg (5,000 unit) capsule 125 mcg PO QAM hydroxyzine HCl 25 mg tablet 25 mg PO QID PRN (Reason: Itching) Qty: 120 4RF levothyroxine 75 mcg tablet 75 mcg PO DAILY 30 Days Qty: 60 2RF cinacalcet 30 mg tablet 30 mg PO QAM clopidogrel 75 mg tablet 75 mg PO QAM Eliquis 5 mg tablet 5 mg PO BID clonidine HCl 0.2 mg tablet 0.1 mg PO BID 30 Days Qty: 60 4RF hydralazine 50 mg tablet 50 mg PO TID 30 Days Qty: 90 0RF ondansetron 4 mg tablet,disintegrating 4 mg PO Q8H PRN (Reason: nausea and vomiting) Qty: 14 0RF atorvastatin 40 mg tablet 40 mg PO BEDTIME amlodipine 10 mg tablet 10 mg PO QAM lisinopril 40 mg tablet 40 mg PO QAM Hold Instructions: Resume on 03/05/23. [place] 8.4 gram powder in packet 8.4 g PO DAILY sertraline 50 mg tablet 50 mg PO QAM lactulose 10 gram/15 mL solution See Rx Instructions .ROUTE .COMPLEX Rx Instructions: 15 mL orally ON NON DIALYSIS DAYS- WEDNESDAY, WEDNESDAY, WEDNESDAY AND WEDNESDAY Auryxia 210 mg iron tablet 2 tab PO TID RenaPlex-D 800 mcg-12.5 mg -2,000 unit tablet 1 tab PO DAILY amiodarone 400 mg tablet 400 mg PO DAILY isosorbide mononitrate 60 mg tablet extended release 24 hr 30 mg PO QAM metoprolol tartrate 50 mg tablet 50 mg PO DAILY nitroglycerin 0.4 mg tablet, sublingual 0.4 mg sublingual DIRECTED PRN (Reason: Chest Pain) carvedilol 25 mg tablet 12.5 mg PO BID hydroxyzine HCl 50 mg tablet 50 mg PO BEDTIME PRN (Reason: Insomnia) Discharge Orders: Discharge ED (Routine); Ordered 03/23/23 Ordered By: Albert Mcneill Referrals: Randolph Ortiz MD [Primary Care Provider] - 1-3 days Patient Instructions: Gastrointestinal Bleeding (ED) Activity Restrictions/Additional Instructions: Please follow-up with your family practice physician in the next 1 to 3 days for further evaluation testing. If the bleeding becomes worse or get lightheaded dizzy faint feeling please return to the ER for further evaluation. Coding Level of Care Code ED Greaser Operator for Eric Sandhu
[2023-03-23 14:18] LABS: Alanine Aminotransferase 7 U/L (0-41); Albumin Level 4.3 g/dL (3.5-5.2); Alkaline Phosphatase 112 U/L (40-130); Anion Gap 16.1 (5-19); Aspartate Amino Transferase 15 U/L (0-40); Blood Urea Nitrogen 31 mg/dL (6-20); Calcium 11.2 mg/dL (8.5-10.5); Carbon Dioxide 34 mmol/L (22-29); Chloride 91 mmol/L (98-107); Globulin 2.5 g/dL (1.3-4.6); Glomerular Filtration Rate 14.3 mL/min (90-130); Glucose 99 mg/dL (65-115); Osmolality Calculated 291 mOsm/kg (285-295); Potassium 4.1 mmol/L (3.5-5.1); Sodium 137 mmol/L (136-145); Total Bilirubin 0.4 mg/dL (0.15-1.2); Total Protein 6.8 g/dL (6.6-8.7)
--- NOTE | 2023-03-23 15:01 | PC.NURSE ---
THIS NURSE DID NOT SEE PATIENT ADMITTED TO ROOM AND D/C'D BEFORE MADE TO THE ROOM.
[2023-03-23 15:02] VITALS: BP 127/70; PULSE 67; RESP 18; TEMP 36.4; O2SAT 99
== END 2023-03-23 15:02 | disposition home or self-care (01) ==
PROVIDERS: Emergency Provider Emergency Medicine; PCP Family Medicine
DX: K92.1 Melena (principal); Z79.01 Long term (current) use of anticoagulants; Z79.02 Long term (current) use of antithrombotics/antiplatelets; F17.210 Nicotine dependence, cigarettes, uncomplicated; I13.2 Hypertensive heart and chronic kidney disease with heart failure and with stage 5 chronic kidney disease, or end stage renal disease; N18.6 End stage renal disease; I50.9 Heart failure, unspecified; Z99.2 Dependence on renal dialysis; Z86.73 Personal history of transient ischemic attack (TIA), and cerebral infarction without residual deficits
CPT/HCPCS: 36415; 80053; 85025; 85610; 99283

== ENCOUNTER 2023-03-28 07:29 | Observation (INO) | payer MEDICARE, MEDICAID, SELFPAY ==
[2023-03-28] VITALS (15 sets, daily range): BP systolic 132–178; BP diastolic 69–113; PULSE 73–95; RESP 18–34; TEMP 36.4–36.7; O2SAT 86–100
--- NOTE | 2023-03-28 07:35 | XRR_ITS ---
PROCEDURE INFORMATION: Exam: XR Chest Exam date and time: 03/28/2023 7:53 AM Age: 57 years old Clinical indication: Dyspnea; Additional info: Dyspnea/cough TECHNIQUE: Imaging protocol: Radiologic exam of the chest. Views: 1 view. COMPARISON: CR (CHEST, ) 02/28/2023 4:46 PM FINDINGS: Lungs: Basilar increased markings are noted. Pleural spaces: Unremarkable. No pleural effusion. No pneumothorax. Heart/Mediastinum: Unremarkable. No cardiomegaly. Bones/joints: Unremarkable. XR/XR chest 1V portable [id number] IMPRESSION: Basilar increased markings.
--- NOTE | 2023-03-28 07:45 | W.ED.SOB ---
HPI - SOB/Dyspnea General: Chief Complaint: Shortness of Breath/Dyspnea Stated Complaint: SOB Time Seen by Provider: 03/28/23 07:34 Source: patient Mode of arrival: ambulatory History of Present Illness: HPI Narrative: 57-year-old male presents to the emergency room complaining of shortness of breath that began overnight. He is normally on 3 L by nasal cannula when he first arrived he was on 4 L we titrated down to 3 for a time but he became hypoxic again and decreased to 85 to 87% on 3 L. He has not had a productive cough he denies fever sweats chills no chest pain he is on dialysis usually gets dialysis Wednesday states he had all of his dialysis treatments last week. MD elicited complaint: shortness of breath Pertinent past history: COPD, congestive heart failure, diabetes and other (End-stage renal disease) Onset (ago): hour(s) Severity: moderate Exacerbating factors: lying flat and exertion Relieving factors: oxygen and upright position Known history of: COPD and congestive heart failure Associated symptoms: Reports orthopnea; Deny abdominal pain, chest congestion, chest pain, cough, diaphoresis, dizziness, extremity pain, fever(s), hemoptysis, lightheadedness, myalgias, nausea, palpitations, paresthesias, polydipsia, polyuria, rash, sense of impending doom, syncope or vomiting Treatment prior to arrival: oxygen Review of Systems Const: Denies: fever(s) or diaphoresis Card: Reports: swelling of feet/ankles, dyspnea on exertion and orthopnea; Denies: chest pain, palpitations, lightheadedness or syncope Resp: Reports: dyspnea, non-productive cough and wheezing; Denies: hemoptysis or chest congestion GI: Denies: abdominal pain, nausea or vomiting Musc: Denies: extremity pain Neuro: Denies: dizziness Endo: Denies: polyuria or polydipsia PFSH ED PFSH: Medical History Accelerated hypertension Acute exacerbation of CHF (congestive heart failure) Acute hyperkalemia Acute hyperkalemia Acute hyperkalemia Acute hyperkalemia Altered mental status Anemia in chronic kidney disease Ascites Nephrogenic ascites Ascites gets regular paracentesis Atrial fibrillation with RVR Bilateral hydronephrosis Chest pain Chronic anemia CVA (cerebral vascular accident) Dilated aortic root Elevated troponin I level End stage renal disease on dialysis End stage renal disease on dialysis GERD (gastroesophageal reflux disease) Gout History of stroke Hyperkalemia Hypertension Hypertension Hypoglycemia Hypothyroidism Incomplete bladder emptying Major depressive disorder Malaise Neuropathy, lumbosacral (radicular) Polycystic kidney disease Right bundle branch block (RBBB) on electrocardiogram (ECG) Shortness of breath Tobacco use disorder Unstable angina Surgical History AV fistula left arm History of colonoscopy 2019 at [facility] History of surgical procedure Peritoneal dialysis catheter placement by Dr. Kamara 2016 S/P hemodialysis catheter insertion (03/13/20) 23cm long exchanged right IJ Removed on 06/11/2020 Family History Mother Chronic kidney disease (CKD) Stroke Father Cancer lung Brother Hypertension Other End stage renal disease on dialysis Denies family history of Diabetes CAD (coronary artery disease) Clotting disorder Dementia Hyperlipidemia Psychiatric illness Anesthesia complication Bleeding disorder Lung disease Social History Smoking and tobacco/nicotine status: current every day tobacco/nicotine user cigarettes Packs smoked per day: 1 [ Other cigarette details: Half a pack per day for last 20-30 years] Alcohol intake: never Substance/Drug Use: current Substance/Drug use frequency: few times a week Marital status: Number of children: 1 Current occupational status: disabled Current gender identity: Male Agree to transfusion: Yes Course Vital Signs: Vital signs: Vital Signs Temperature 98.1 F 03/28/23 07:30 Pulse Rate 77 03/28/23 08:46 Respiratory Rate 18 03/28/23 08:40 Blood Pressure 166/81 03/28/23 08:40 Pulse Oximetry 100 03/28/23 08:40 Oxygen Delivery Me thod Nasal Cannula 03/28/23 10:48 Oxygen Flow Rate 5 03/28/23 08:40 MDM - SOB/Dyspnea Medical Decision Making Chest x-ray shows increased infiltrate right lower lobe. Started on oral antibiotics cultures done BNP markedly elevated which is chronic for the patient he is requiring increased oxygen discussed with hospitalist orders written lactate pending Medical Records I reviewed the patient's medical records. Lab Data I reviewed the patient's lab results. 03/28/23 07:10 03/28/23 07:10 Labs/Radiology: Radiology Impressions Chest X-Ray 03/28/23 07:35 IMPRESSION: Basilar increased markings. Laboratory Results WBC 7.14 10^3/uL (3.29-11.43) 03/28/23 07:10 RBC 2.98 10^6/uL (3.85-5.65) L 03/28/23 07:10 Hgb 9.20 g/dL (11.27-16.99) L 03/28/23 07:10 Hct 29.7 % (37-53) L 03/28/23 07:10 MCV 99.7 fl (82-101) 03/28/23 07:10 MCH 30.9 pg (27-33) 03/28/23 07:10 MCHC 31.0 g/dL (30-55) 03/28/23 07:10 RDW 16.9 % (12.1-15.1) H 03/28/23 07:10 Plt Count 268 10^3/cmm (157-399) 03/28/23 07:10 MPV 10.1 fL (7.4-10.4) 03/28/23 07:10 Neut % (Auto) 70.5 % 03/28/23 07:10 Lymph % (Auto) 16.1 % 03/28/23 07:10 [place] % (Auto) 8.8 % 03/28/23 07:10 Eos % (Auto) 3.9 % 03/28/23 07:10 Baso % (Auto) 0.3 % 03/28/23 07:10 Neut # (Auto) 5.03 10^3/uL (1.8-7.7) 03/28/23 07:10 Lymph # (Auto) 1.2 10^3/uL (0.8-4.8) 03/28/23 07:10 [place] # (Auto) 0.6 10^3/uL (0.2-0.9) 03/28/23 07:10 Eos # (Auto) 0.3 10^3/uL (0.0-0.8) 03/28/23 07:10 Baso # (Auto) 0.0 10^3/uL (0.0-0.1) 03/28/23 07:10 Nucleated RBC % (auto) 0 % 03/28/23 07:10 Nucleated RBCs # 0.0 /100WBC 03/28/23 07:10 Sodium 138 mmol/L (136-145) 03/28/23 07:10 Potassium 5.6 mmol/L (3.5-5.1) H 03/28/23 07:10 Chloride 90 mmol/L (98-107) L 03/28/23 07:10 Carbon Dioxide 34 mmol/L (22-29) H 03/28/23 07:10 Anion Gap 19.6 (5-19) H 03/28/23 07:10 BUN 40 mg/dL (6-20) H 03/28/23 07:10 Creatinine 5.0 mg/dL (0.7-1.2) H 03/28/23 07:10 GFR Calculation 12.0 mL/min (90-130) L 03/28/23 07:10 Glucose 90 mg/dL (65-115) 03/28/23 07:10 Calculated Osmolality 295 mOsm/kg (285-295) 03/28/23 07:10 Calcium 10.3 mg/dL (8.5-10.5) 03/28/23 07:10 Total Bilirubin 0.5 mg/dL (0.15-1.2) 03/28/23 07:10 AST 21 U/L (0-40) 03/28/23 07:10 ALT 11 U/L (0-41) 03/28/23 07:10 Alkaline Phosphatase 160 U/L (40-130) H 03/28/23 07:10 Total Protein 6.5 g/dL (6.6-8.7) L 03/28/23 07:10 Albumin 3.7 g/dL (3.5-5.2) 03/28/23 07:10 Globulin 2.8 g/dL (1.3-4.6) 03/28/23 07:10 All radiology interpretation(s) finalized by discharge Discharge Plan Discharge Patient Disposition: Admitted As Inpatient Admit Provider: Richie Loazia Clinical Impression: Community acquired pneumonia, Congestive heart failure, End stage renal disease on dialysis Condition: Stable Coding Level of Care Code ED Child Development Associate Teacher for Eric Sandhu
--- NOTE | 2023-03-28 07:49 | ECG_ITS ---
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 Measurements Intervals Arthur Rate: 74 P: 67 CO: 206 QRS: -38 QRSD: 112 T: 12 QT: 427 QTc: 476 Interpretive Statements SINUS RHYTHM LEFT AXIS DEVIATION [QRS AXIS < -30] SEPTAL MYOCARDIAL INFARCTION , PROBABLY OLD [40+ ms Q WAVE IN V1/V2] Compared to ECG 03/18/2023 15:35:18 Myocardial infarct finding now present T-wave abnormality no longer present Electronically Signed On 03-28-2023 15:33:20 POND SAWYER by Dora Mustafa M.D. [id number]
[2023-03-28 08:04] LABS: Basophils % 0.3 %; Eosinophils # 0.3 10^3/uL (0.0-0.8); Eosinophils % 3.9 %; Hematocrit 29.7 % (37-53); Lymphocytes # 1.2 10^3/uL (0.8-4.8); Lymphocytes % 16.1 %; Mean Corpuscular Hemoglobin 30.9 pg (27-33); Mean Corpuscular Volume 99.7 fl (82-101); Mean Platelet Volume 10.1 fL (7.4-10.4); Monocytes # 0.6 10^3/uL (0.2-0.9); Monocytes % 8.8 %; Neutrophils # 5.03 10^3/uL (1.8-7.7); Neutrophils % 70.5 %; Nucleated Red Blood Cells % 0 %; Platelet Count 268 10^3/cmm (157-399); Red Blood Count 2.98 10^6/uL (3.85-5.65); Red Cell Distribution Width 16.9 % (12.1-15.1); White Blood Count 7.14 10^3/uL (3.29-11.43)
[2023-03-28 08:22] LABS: Alanine Aminotransferase 11 U/L (0-41); Albumin Level 3.7 g/dL (3.5-5.2); Alkaline Phosphatase 160 U/L (40-130); Anion Gap 19.6 (5-19); Aspartate Amino Transferase 21 U/L (0-40); Blood Urea Nitrogen 40 mg/dL (6-20); Calcium 10.3 mg/dL (8.5-10.5); Carbon Dioxide 34 mmol/L (22-29); Chloride 90 mmol/L (98-107); Globulin 2.8 g/dL (1.3-4.6); Glucose 90 mg/dL (65-115); Osmolality Calculated 295 mOsm/kg (285-295); Potassium 5.6 mmol/L (3.5-5.1); Sodium 138 mmol/L (136-145); Total Bilirubin 0.5 mg/dL (0.15-1.2); Total Protein 6.5 g/dL (6.6-8.7)
[2023-03-28] MEDS: ipratropium-albuterol 3 mL Neb INHALATION (08:38)
[2023-03-28] MEDS: dexamethasone 10 mg/mL INJ IM (08:40)
--- NOTE | 2023-03-28 09:08 | PC.PHAR ---
[facility] IS [facility] VASQUE[facility] [phone] DOES NOT ANSWER HER PHONE AND MAIL BOX IS FULL. PT UNABLE TO VERIFY ANYTHING. [facility] BUT WILL NOT GET UNTIL Wednesday03/29/23. WILL UPDATE WHEN IT ARRIVES
[2023-03-28] MEDS: levofloxacin-dextrose 5 % 750 MG/150 ML PREMIX 100 MG IV (09:48)
[2023-03-28 10:04] LABS: Lactic Sepsis W/Reflex 1.4 mmol/L (0.5-2.2)
[2023-03-28 10:30] LABS: NT Pro B Type Natriuretic Pept > 35000 pg/mL (0-125)
--- NOTE | 2023-03-28 10:32 | PC.NURSE ---
Patient arrives from ED to CSU via a bed at 1030.
--- NOTE | 2023-03-28 12:38 | CTR_ITS ---
PROCEDURE INFORMATION: Exam: CT Chest Without Contrast; Diagnostic Exam date and time: 03/28/2023 4:05 PM Age: 57 years old Clinical indication: Constipation; Shortness of breath; Additional info: SOB, constipation TECHNIQUE: Imaging protocol: Diagnostic computed tomography of the chest without contrast. Radiation optimization: All CT scans at this facility use at least one of these dose optimization techniques: automated exposure control; mA and/or kV adjustment per patient size (includes targeted exams where dose is matched to clinical indication); or iterative reconstruction. REPORTING DATA: Count of CT and Cardiac NM exams in prior 12 months: This patient has received 5 known CTs and 0 known cardiac nuclear medicine studies in the 12 months prior to the current study. COMPARISON: CR (CHEST, ) 03/28/2023 7:53 AM RADIATION DOSE METRICS: Total DLP (mGy-cm): 1146.57 FINDINGS: Limitations: Study is significantly limited due to marked motion artifact. Lungs: Lung henry are difficult to assess due to motion artifact. There is diffuse hazy ground-glass opacification with prominence of pulmonary vascularity likely secondary to CHF. Pleural spaces: There are small bilateral pleural effusions likely secondary to CHF/volume overload. Heart: Heart is moderately enlarged. Diffuse calcification of the mitral annulus. Evidence of coronary artery stenting. Moderate calcification of coronary arteries. No significant pericardial effusion. Lymph nodes: Unremarkable. No enlarged lymph nodes. Vasculature: Diffuse atherosclerotic changes of the thoracic aorta. No aortic aneurysm. Bones/joints: There are multiple healing rib fractures both rib cages. Soft tissues: Unremarkable. PROCEDURE INFORMATION: Exam: CT Abdomen And Pelvis Without Contrast Exam date and time: 03/28/2023 4:05 PM Age: 57 years old Clinical indication: Constipation; Shortness of breath; Additional info: SOB, constipation TECHNIQUE: Imaging protocol: Computed tomography of the abdomen and pelvis without contrast. Radiation optimization: All CT scans at this facility use at least one of these dose optimization techniques: automated exposure control; mA and/or kV adjustment per patient size (includes targeted exams where dose is matched to clinical indication); or iterative reconstruction. REPORTING DATA: Count of CT and Cardiac NM exams in prior 12 months: This patient has received 5 known CTs and 0 known cardiac nuclear medicine studies in the 12 months prior to the current study. COMPARISON: CT abdomen pelvis wo con [id number] 07/22/2022 10:35 PM RADIATION DOSE METRICS: Total DLP (mGy-cm): 1146.57 FINDINGS: Lungs: Lung bases are clear. Liver: Small liver cyst right lobe unchanged otherwise liver is unremarkable. Gallbladder and bile ducts: Normal. No calcified stones. No ductal dilation. Pancreas: Unremarkable. Main pancreatic duct is not significantly dilated. Spleen: Normal. No splenomegaly. Adrenal glands: Normal. No mass. Kidneys and ureters: Kidneys are enlarged with innumerable renal cysts of varying sizes measuring up to 8 cm replacing normal renal architecture consistent with polycystic kidney disease. Some of the cysts are either hyperdense or calcified unchanged. No hydronephrosis detected. Stomach and bowel: Bowel loops are unremarkable. No obstructive bowel gas pattern. No significant stool burden. Appendix: No evidence of appendicitis. Intraperitoneal space: Mild-moderate amount of ascites throughout the abdomen and pelvis decreased from previous exam.. Vasculature: Abdominal aorta and iliac vessels are diffusely calcified. There is no aortic aneurysm. Lymph nodes: Unremarkable. No enlarged lymph nodes. Urinary bladder: Mild diffuse bladder wall thickening, unchanged. Reproductive: Unremarkable as visualized. Bones/joints: Unremarkable. No acute fracture. Soft tissues: Focal soft tissue thickening right lower abdominal wall extending to the skin surface unchanged presumably postsurgical in nature. Mild anasarca within the soft tissues improved from previous exam. CT/[place] [id number] IMPRESSION: 1. Technically limited exam due to motion artifact. 2. Cardiomegaly with pulmonary congestion and small bilateral pleural effusions likely secondary to CHF. 3. Multiple healing rib fractures bilaterally. IMPRESSION: 1. Unremarkable bowel gas pattern. No evidence of bowel obstruction or significant constipation. 2. Findings consistent with polycystic kidney disease not significantly changed from previous exam. 3. Mild-moderate amount of ascites decreased from previous exam. 4. Additional nonemergent findings as above.
--- NOTE | 2023-03-28 12:42 | P.HP_ITS ---
Providers/Chief Complaint Admitting Physician: Richie Loaiza MD Primary Care Provider: Randolph Ortiz MD Chief Complaint: SOB History of Present Illness Navneet Savage is a 57 year old male with past medical history of end- stage renal disease on hemodialysis, diastolic heart failure, atrial fibrillation on Eliquis, CAD post stenting presents to the ER today with diffic ulty in breathing which has been getting worse apparently over last 1 day. Patient usually is on 3 L of oxygen supplementation and since morning was requiring 4-5. Patient is also noncompliant to using oxygen. Patient has other than that is not able to provide with any other history. He has been not aware of any changes in to his medications recently. As per him he has been compliant with his dialysis sessions on Wednesday, Wednesday and Wednesday. He is complaining of decreased appetite without any nausea but does complain of constipation with last bowel movement over a week ago. Denies any subjective fever fever, increased cough or expectoration. Review of Systems General: Reports: 10 or more systems reviewed and unremarkable except in HPI and below Const: Denies: fever(s), chills, body aches, change in appetite, change in weight, malaise, night sweats, diaphoresis, change in sleep pattern, daytime sleepiness or snoring Eyes: Denies: change in vision, blurry vision, photophobia, eye discomfort or eye discharge ENMT: Denies: throat pain, enlarged tonsils, hoarseness, mouth pain, oral sores, dry mouth, tinnitus, nasal congestion or post nasal drip Card: Denies: chest pain, palpitations, irregular heart rhythm, edema, swelling of feet/ankles, lightheadedness, syncope, pre-syncope, dyspnea on exertion, orthopnea, leg pain with exertion or acrocyanosis Resp: Denies: dyspnea, productive cough, non-productive cough, wheezing, stridor, pain on inspiration, change in phlegm color, hemoptysis or chest congestion GI: Denies: abdominal pain, nausea, vomiting, hematemesis, coffee ground emesis, dysphagia, heartburn, diarrhea, constipation, bloating, GI cramping, change in bowel habits, pain on defecation, hematochezia or melena : Denies: flank pain, difficulty urinating, dysuria, urinary frequency, urinary urgency, urinary hesitancy, urinary dribbling, difficulty starting urination, change in urine stream, nocturia or hematuria Musc: Denies: neck pain, back pain, extremity pain, joint pain, joint swelling, joint redness, joint stiffness or limited range of motion Neuro: Denies: headache(s), numbness in extremities, weakness in extremities, sensory changes, lack of coordination, difficulty walking, frequent falls, dizz iness, vertigo, confusion, Slurred speech present, difficulty communicating thoughts or seizure-like activity Psych: Denies: anxiety, depression, mood swings, panic attacks, hopelessness or irritability Endo: Denies: polyuria, polydipsia, tired all the time, cold intolerance, excessive sweating, flushing or heat intolerance Lucas/Lymph: Denies: easy bruising or easy bleeding All/Imm: Denies: tongue swelling, facial swelling or acute wheezing Medications/Allergies Home Medications Medication Instructions Recorded Confirmed Last Taken Type cinacalcet 30 mg tablet 30 mg PO QAM 05/12/22 03/28/23 03/22/23 History cholecalciferol (vitamin D3) 125 125 mcg PO QAM 06/18/22 03/28/23 03/22/23 History mcg (5,000 unit) capsule ferric citrate 210 mg iron tablet 2 tab PO TID 06/22/22 03/28/23 03/22/23 Histo ry (Auryxia) vit B,C-folic ac 800 mcg-zinc 12.5 1 tab PO DAILY 06/22/22 03/28/23 03/22/23 Hi story mg-selen-D3 2,000 unit-vit E tablet (RenaPlex-D) clonidine HCl 0.2 mg tablet 0.1 mg PO BID 30 days #60 tabs 12/31/22 03/28/23 03/23/23 Rx hydralazine 50 mg tablet 50 mg PO TID 30 days #90 tabs 12/31/22 03/28/23 03/23/23 Rx ondansetron 4 mg disintegrating 4 mg PO Q8H PRN nausea and 01/30/23 03/28/23 03/22/23 Rx tablet vomiting #14 tabs apixaban 5 mg tablet (Eliquis) 5 mg PO BID 02/02/23 03/28/23 03/22/23 History clopidogrel 75 mg tablet 75 mg PO QAM 02/02/23 03/28/23 03/22/23 History amiodarone 400 mg tablet 400 mg PO DAILY 02/08/23 03/28/23 03/22/23 History isosorbide mononitrate 60 mg 30 mg PO QAM 02/08/23 03/28/23 03/22/23 History tablet,extended release 24 hr metoprolol tartrate 50 mg tablet 50 mg PO DAILY 02/16/23 03/28/23 03/22/23 History nitroglycerin 0.4 mg sublingual 0.4 mg sublingual DIRECTED PRN 02/16/23 03/28/23 03/22/23 History tablet Chest Pain hydroxyzine HCl 25 mg tablet 25 mg PO QID PRN Itching #120 tabs 02/26/23 03/28/23 03/23/23 Rx levothyroxine 75 mcg tablet 75 mcg PO DAILY 30 days #60 tabs 02/26/23 03/28/23 03/22/23 Rx amlodipine 10 mg tablet 10 mg PO QAM 03/01/23 03/28/23 03/22/23 History atorvastatin 40 mg tablet 40 mg PO BEDTIME 03/01/23 03/28/23 03/22/23 History lactulose 10 gram/15 mL oral See Rx Instructions .Route .COMPLEX 03/01/23 03/28/23 03/22/23 History solution lisinopril 40 mg tablet 40 mg PO QAM 03/01/23 03/28/23 03/22/23 History patiromer calcium sorbitex 8.4 8.4 g PO DAILY 03/01/23 03/28/23 03/22/23 History gram oral powder packet (Veltassa) sertraline 50 mg tablet 50 mg PO QAM 03/01/23 03/28/23 03/22/23 History carvedilol 25 mg tablet 12.5 mg PO BID 03/22/23 03/28/23 03/23/23 History hydroxyzine HCl 50 mg tablet 50 mg PO BEDTIME PRN Insomnia 03/22/23 03/28/23 03/22/23 History Allergies Allergy/AdvReac Type Severity Reaction Status Date / Time Penicillins Allergy ALGY-Anaphy Verified 03/23/23 11:36 laxis Sulfa (Sulfonamide Allergy Unknown Verified 03/23/23 11:36 Antibiotics) fluoxetine [From Prozac] AdvReac Mild stomach Verified 03/23/23 11:36 upset PFSH Acute PFSH: Medical History (Updated 03/28/23 @ 15:01 by Richie Loaiza MD) Accelerated hypertension Acute exacerbation of CHF (congestive heart failure) Acute hyperkalemia Altered mental status Anemia in chronic kidney disease Ascites Nephrogenic ascites, gets regular paracentesis Atrial fibrillation with RVR Bilateral hydronephrosis Chest pain Chronic anemia CVA (cerebral vascular accident) Dilated aortic root Elevated troponin I level End stage renal disease on dialysis GERD (gastroesophageal reflux disease) Gout History of stroke Hyperkalemia Hypertension Hypertension Hypoglycemia Hypothyroidism Incomplete bladder emptying Major depressive disorder Malaise Neuropathy, lumbosacral (radicular) Polycystic kidney disease Right bundle branch block (RBBB) on electrocardiogram (ECG) Shortness of breath Tobacco use disorder Unstable angina Surgical History AV fistula left arm History of colonoscopy 2019 at [facility] History of surgical procedure Peritoneal dialysis catheter placement by Dr. Kamara 2016 S/P hemodialysis catheter insertion (03/13/20) 23cm long exchanged right IJ Removed on 06/11/2020 Family History Mother Chronic kidney disease (CKD) Stroke Father Cancer lung Brother Hypertension Other End stage renal disease on dialysis Denies family history of Diabetes CAD (coronary artery disease) Clotting disorder Dementia Hyperlipidemia Psychiatric illness Anesthesia complication Bleeding disorder Lung disease Social History Smoking and tobacco/nicotine status: current every day tobacco/nicotine user cigarettes Packs smoked per day: 1 [ Other cigarette details: Half a pack per day for last 20-30 years] Alcohol intake: never Substance/Drug Use: current Substance/Drug use frequency: few times a week Marital status: Number of children: 1 Current occupational status: disabled Current gender identity: Male Agree to transfusion: Yes Vitals/I&O/Wt Last Vital Signs Temp 98.1 F 03/28/23 07:30 Pulse 80 03/28/23 10:32 Resp 18 03/28/23 08:40 BP 166/81 03/28/23 08:40 Pulse Ox 100 03/28/23 08:40 O2 Del Method Nasal Cannula 03/28/23 10:48 O2 Flow Rate 5 03/28/23 08:40 03/27/23 03/28/23 03/28/23 23:59 06:59 14:59 Intake Total 150 / 150 Balance 150 / 150 Weight last 48 hrs Weight 99.337 kg Physical Exam Narrative: EXAM NARRATIVE: General: No acute distress, AO x 2-3, NC oxygen supplementation, chronically sick appearing HEENT: PERRLA, pupils bilaterally equal and reactive Chest: Bronchial breath sounds all over lung henry with fine crackles in bilateral lower to middle zone CVS: S1-S2 regular, no murmurs, no tachycardia, no gallops, no rubs Abdomen: Soft, nontender, no organomegaly, bowel sounds present, morbidly obese Neuro: No focal deficits, no facial deformity, AO x3, power 5/5 in all limbs Data 03/28/23 07:10 03/28/23 07:10 Micro: Microbiology 03/28/23 09:19 Blood Culture - Preliminary Blood SPECIMEN COLLECTED 03/28/23 09:22 Blood Culture - Preliminary Blood SPECIMEN COLLECTED A&P Assessment and plan (1) Hypoxia: Most likely in setting of diastolic congestive heart failure because of hypertensive urgency. At baseline requires 3. Currently on 5 L. Check sputum culture, respiratory viral panel, CT chest. Patient is already on Eliquis 5 mg twice daily so PE unlikely. Oxygen supplementation keeping saturation over 90%. (2) Congestive heart failure: Diastolic in nature. Last echocardiogram from 02/13 shows an EF of 55 to 60%, mild mitral stenosis, mild MR, mild TR. Acute on chronic. Most likely in setting of hypertensive urgency. Strict input output charting. Daily weights. Fluid restriction to less than 1 L. (3) Hypertensive urgency: Goal blood pressure less than 140/90 mmHg. Not sure about compliance. Supposed to be on amlodipine 10 mg daily, carvedilol 12.5 mg twice daily, clonidine 0.1 mg twice daily, hydralazine 50 3 times daily, Imdur 30 mg daily. Restart home medications for now. Uptitrate as for goal blood pressures. (4) End stage renal disease on dialysis: We will consult nephrology for regular dialysis. Gets Wednesday, Wednesday, Wednesday dialysis. (5) Altered mental status: Slightly slow to respond and mildly confused. Not sure if too far away from baseline. Can be secondary to hypertensive urgency. Check ammonia levels. Frequent orientation. CT head. Plan Atrial fibrillation: Currently in normal sinus rhythm. Continue with home medications of carvedilol and amiodarone. Most likely can decrease dose of amiodarone to 200 mg daily. Continue with home dose of Eliquis. Continue other chronic medications. Full code Renal dialysis diet Protonix for PUD prophylaxis Eliquis will suffice as DVT prophylaxis. Attestations Medical Necessity Statement*: Admission for more than 2 midnights for management of hypoxia in setting of diastolic congestive heart failure, hypertensive urgency in a patient with history of end-stage renal disease on hemodialysis. Diagnoses Hypoxia R09.02 Congestive heart failure I50.9 Hypertensive urgency I16.0 End stage renal disease on dialysis N18.6; Z99.2 Altered mental status R41.82
[2023-03-28] MEDS: isosorbide mononitrate ER 30 mg Tablet PO (13:02)
[2023-03-28 13:03] LABS: Thyroid Stimulating Hormone 6.03 uIU/mL (0.27-4.20)
[2023-03-28] MEDS: amiodarone 200 mg Tablet 400 MG PO (13:03)
[2023-03-28] MEDS: cloNIDine 0.1 mg Tablet PO ×2 (13:03→17:57)
[2023-03-28] MEDS: hyDRALAzine 50 mg Tablet PO ×3 (13:03→20:51)
[2023-03-28] MEDS: carvedilol 12.5 mg Tablet PO ×2 (13:04→17:58)
[2023-03-28 13:07] LABS: ABG PH Result 7.45 (7.35-7.45); Alveolar-Arterial Oxygen Gradi 2.1 mmHg (5-10); Arterial Blood Gas Hematocrit 30.6 % (42-52); Base Excess ABG 9.8 mmol/L (-2.0-2.0); Blood Gas Allen Test Pos; Blood Gas Sample Site Radial, right; Blood Gas Sample Type Arterial; HGB O2 Sat 92.4 % (95-100); Ionized Calcium Level - ABG 1.2 mmol/L (1.1-1.4); Methemoglobin 0.5 % (0.4-1.5); Oxygen Device NC; Oxygen Saturation ABG 94.7; PO2 ABG 72.6 mmHg (80.0-100.0); Potassium Level - ABG 5.6 mmol/L (3.5-5.0)
[2023-03-28] MEDS: magnesium hydroxide 30 mL UDC PO (13:11)
[2023-03-28] MEDS: lactulose oral liq 20 gm/30 mL UDC 10 GM PO ×2 (13:12→17:57)
[2023-03-28] MEDS: levalbuterol 0.63 mg/3 mL Neb INHALATION ×2 (13:16→19:47)
[2023-03-28] MEDS: ipratropium 0.5 mg/2.5 mL Neb INHALATION ×2 (13:16→19:47)
[2023-03-28 13:31] LABS: Procalcitonin 0.33 ng/mL (0-0.5)
--- OUTSIDE RECORDS SUMMARY | 2023-03-28 13:35 | XMS_ITS ---
Author Name Trinity Hernadez Address [address] [place], [place] [id number] Phone [phone] Organization [facility], NA DOCUMENT DISCLAIMER Multiple document versions may exist, please be sure you review the latest version. The information in the [facility] Progress Note Document represents a providers documented clinical note containing certain health and medical information. It may not contain the complete medical history for the patient and should be independently verified. The represented time in the document is Eastern Time PROVIDER ROUNDING NOTE COMPREHENSIVE Patient:?Navneet?Hussein,?1965,?57y,?M Dialysis?Location:?[facility] Attending?Insurance Claims Adjuster:?Bryce Service?Date:?03/10/2023 Service?Provider:?Trinity?Maricarmen,? I?met?face?to?face?with?the?patient?today. OVERVIEW The?patient?presented?with?ESRD?on?dialysis Primary?cause?of?renal?failure:?Polycystic?kidney,?adult?type Comments:?Remains?without?a?firm?residence,?social?impairments&#1 60;with?diet,?medication?compliance.? SW?following?closely.?Issues?with?non?compliance?with?meds and?HD Medications?and?labs?reviewed. HOME?MEDICATIONS Home?Medications:? ??lactulose?10?gram/15?mL?(15?mL),?by?mouth,?Take& #160;10?gram?as?directed?on?non?dialysis?days ??levothyroxine?75?mcg,?by?mouth,?Take?1?tablet?once?a?day ??Veltassa?(patiromer?calcium?sorbitex)?8.4?gram,?dissolved& #160;in?water,?Drink?1?packet?once?a?day?as?directed&#1 60;Take?on?NON-dialysis?days,?Wednesday,?,?Wednesday,?Wednesday. ??amiodarone?400?mg,?by?mouth,?Take?1?tablet?once a?day ??Eliquis?(apixaban)?5?mg,?by?mouth,?Take?1?tablet?twice?a?day ??hydralazine?50?mg,?Take?1?tablet?three?times?a day ??clopidogrel?75?mg,?by?mouth,?Take?1?tablet?once a?day ??metoprolol?tartrate?50?mg,?by?mouth,?Take?1?tabl et?twice?a?day?Take?@?0900?&?2100 ??nitroglycerin?0.4?mg,?under?tongue,?Place?1?tablet&#1 60;as?directed?Q5M?PRN?as?needed?for?Chest?pain ??clonidine?HCl?(clonidine?hcl)?0.1?mg,?by?mouth,?Take?1?tablet?twice?a?day ??atorvastatin?40?mg,?by?mouth,?Take?1?tablet?every?night ??amlodipine?10?mg,?by?mouth,?Take?1?tablet?once a?day ??carvedilol?12.5?mg,?by?mouth,?Take?1?tablet?twice?a?day ??Auryxia?(ferric?citrate)?210?mg?iron,?by?mouth,? Take?2?tablet?three?times?a?day?with?meals?1?with snacks ??cinacalcet?30?mg,?by?mouth,?Take?1?tablet?once a?day ??isosorbide?mononitrate?60?mg,?by?mouth,?Take?1/2 tablet?once?a?day ??Renaplex?D?1?tablet,?by?mouth,?Take?1?tablet once?a?day ??ondansetron?4?mg,?by?mouth,?Take?1?tablet?every& #160;eight?hours?as?needed?for?nausea ??hydroxyzine?HCl?(hydroxyzine?hcl)?25?mg,?by?mouth,&#1 60;Take?1?tablet?four?times?a?day?as?needed?as?needed?for?itching Allergies:? ??Sulfa?(Sulfonamide?Antibiotics),?Penicillins LAST?HOSPITALIZATION Discharge?Diagnosis:?E87.5?Hyperkalemia Admission?Date?02/28/23 Discharge?Date?03/02/23 DIALYSIS?PRESCRIPTION ??IHD?3x?Week?Start?date:?02/17/23 ??Dialyzer:?180NRe?Optiflux ??BFR:?450 ??DFR:?Autoflow?2 ??Potassium:?2.0 ??Sodium:?138 ??EDW:?84.2 ??Duration:?4:00 ??Calcium:?2.5 ??Bicarb:?36 ??Rx?updated?on:?02/17/2023 TREATMENT?ASSESSMENT Comments:?today?BP?well?controlled.? Blood?pressure?controlled.?No?changes?indicated.? BP?Stand?Pre ??03/08/2023:?140/82 ??03/05/2023:?184/96 BP?Sit?Pre ??03/08/2023:?141/82 ??03/05/2023:?94/67 ??03/03/2023:?151/89 BP?Stand?Post ??03/08/2023:?112/63 ??03/05/2023:?137/85 ??03/03/2023:?132/70 BP?Sit?Post ??03/08/2023:?103/66 ??03/05/2023:?132/85 ??03/03/2023:?124/80 Tx?Duration ??03/08/2023:?4:05 ??03/05/2023:?3:42 ??03/03/2023:?4:07 Missed?Treatments 1?-?last?30?days 3?-?last?60?days 02/19?-?recent FLUID?ASSESSMENT Comments:?He?has?been?having?paracentesis?about?every?3rd week?now. Fluid?status?not?acceptable.?Interdialytic?weight?gain?not?a cceptable.?Optimal?weight?discussed.?Diet?reviewed?with?patient. EDW?(kg) ??03/08/2023:?84.2 ??03/05/2023:?84.2 ??03/03/2023:?84.2 Weight?Pre?(kg) ??03/08/2023:?94.0 ??03/05/2023:?93.7 ??03/03/2023:?94.7 Weight?Post?(kg) ??03/08/2023:?93.2 ??03/05/2023:?90.2 ??03/03/2023:?90.6 PWV?(kg) ??03/08/2023:?9.0 ??03/05/2023:?6.0 ??03/03/2023:?6.4 UF?Rate?(mL/kg/hr) ??03/08/2023:?2.1 ??03/05/2023:?10.5 ??03/03/2023:?11 ADEQUACY?ASSESSMENT Adequacy?target?met.?Prescription?compliance?not?acceptable.?Coun seled?patient?regarding?prescription?compliance.? spKt/V,?URR ??02/24/2023:?1.7,?77.0 ??01/27/2023:?1.94,?80.0 ??12/23/2022:?1.61,?75.0 ACCESS?ASSESSMENT ??Access?Type:?AVFistula ??Access?SubType:?Standard ??Access?Status:?Active?(In?Use)?-?06/05/2020 ??Access?Location:?Left?Forearm ??Created:?03/27/2020 Flow ??03/08/2023:?1099 ??01/25/2023:?1053 ??01/11/2023:?1153 Vascular?access?reviewed.?Current?access?is?permanent?and?functioning?well. ANEMIA?ASSESSMENT HGB?below?goal.?RADHA?dose?inadequate.?Medications?adjusted.?T reatment?protocol?ordered.? HGB,?TSAT ??03/03/2023:?8.8,?- ??02/24/2023:?8.8,?34.0 ??02/22/2023:?9.1,?- ?? Ferritin ??01/27/2023:?637.0 ??10/28/2022:?514.0 Mircera,?IVP?(mcg) ??03/03/2023:?200 ??02/17/2023:?150 ??02/05/2023:?150 Iron?Sucrose?(Venofer)?(mg) ??02/24/2023:?100 ??02/10/2023:?100 ??01/06/2023:?100 BMM?ASSESSMENT Comments:?non?compliant?with?therapyu? PTH?elevated.?Calcium?controlled.?Phosphorus?elevated.?BMM?meds&# 160;adherence?not?acceptable.?Counseled?pt?on?meds?adherence.&#16 0;Diet?reviewed?with?patient.?Treatment?protocol?ordered.?Referre d?to?dietitian.? Phosphorus,?Calcium ??02/24/2023:?10.8,?9.0 ??01/27/2023:?10.5,?8.3 ??01/08/2023:?-,?9.5 ?? PTH,?Intact ??02/24/2023:?1810.0 ??01/27/2023:?1312.0 ??12/23/2022:?1940.0 Vitamin?D?(Calcitriol)?Oral?(mcg) ??03/08/2023:?2.25 ??03/05/2023:?2.25 ??03/03/2023:?2.25 NUTRITION?ASSESSMENT Comments:?he?just?got?lokelma?yesterday?and?will?start?to?take?it Potassium?above?goal.?Albumin?below?goal.?Diet?reviewed?with ?patient.?Referred?to?dietitian.? Albumin,?Potassium ??03/03/2023:?-,?5.8 ??02/24/2023:?3.4,?5.2 ??02/17/2023:?-,?5.6 ?? eNPCR ??02/24/2023:?0.79 ??01/27/2023:?0.72 ??12/23/2022:?0.5 PHYSICAL?EXAM Exam?Performed.?Vital?Signs?Reviewed.?CV?-?Blood?pressure&#1 60;noted.?EXT?-?1+?edema.?AVF/AVG?Positive?thrill/bruit. DIAGNOSIS Chief?Complaint:?N18.6?End?stage?renal?disease Patient?is?stable.?Patient?discussed?with?nursing. Patient?data?updated?03/10/2023?at?9:13?AM Signed?By:?Maricarmen,?Trinity,???on?03/10/2023?9:17:45?AM END OF DOCUMENT
[2023-03-28 13:36] LABS: Ammonia 20 umol/L (16-60)
--- NOTE | 2023-03-28 15:39 | PC.NURSE ---
Provider is notified that patient takes Hydroxyzine HCL 25mg 1 QID as needed for itching. Provider okayed this order.
[2023-03-28] MEDS: hyDROXYzine 25 mg Capsule PO ×2 (16:08→22:43)
[2023-03-28] MEDS: sennosides-docusate Tablet 1 TAB PO (17:57)
[2023-03-28] MEDS: apixaban 5 mg Tablet PO (17:58)
[2023-03-28] MEDS: budesonide 0.5 mg/2 mL Neb INHALATION (19:47)
[2023-03-28] MEDS: atorvastatin 40 mg Tablet PO (20:51)
[2023-03-28 21:34] LABS: Adenovirus Not Detected (NOT DETECT); Chlamydia Pneumoniae Not Detected (NOT DETECT); Coronavirus 229E,HKU1,NL63,OC4 Not Detected (NOT DETECT); Human Metapneumovirus Not Detected (NOT DETECT); Human Rhinovirus/Enterovirus Not Detected (NOT DETECT); Influenza A Not Detected (NOT DETECT); Influenza A H1 Not Detected (NOT DETECT); Influenza A H1-2009 Not Detected (NOT DETECT); Influenza A H3 Not Detected (NOT DETECT); Influenza B Not Detected (NOT DETECT); Mycoplasma Pneumoniae Not Detected (NOT DETECT); Parainfluenza Virus Type 1 Not Detected (NOT DETECT); Parainfluenza Virus Type 2 Not Detected (NOT DETECT); Parainfluenza Virus Type 3 Not Detected (NOT DETECT); Parainfluenza Virus Type 4 Not Detected (NOT DETECT); Respiratory Syncytial Virus A Not Detected (NOT DETECT); Respiratory Syncytial Virus B Not Detected (NOT DETECT); SARS-COV-2 Not Detected (NOT DETECT)
[2023-03-29] VITALS (11 sets, daily range): BP systolic 100–152; BP diastolic 63–102; PULSE 73–101; RESP 16–26; TEMP 36.4–36.7; O2SAT 91–100
[2023-03-29] MEDS: hyDROXYzine 25 mg Capsule PO ×2 (04:26→16:37)
[2023-03-29 04:31] LABS: Hematocrit 30.3 % (37-53); Lymphocytes # 0.6 10^3/uL (0.8-4.8); Lymphocytes % 6.1 %; Mean Platelet Volume 10.1 fL (7.4-10.4); Monocytes # 0.7 10^3/uL (0.2-0.9); Monocytes % 7.5 %; Neutrophils # 7.81 10^3/uL (1.8-7.7); Nucleated Red Blood Cells % 0 %; Platelet Count 251 10^3/cmm (157-399); Red Blood Count 3.03 10^6/uL (3.85-5.65); Red Cell Distribution Width 16.9 % (12.1-15.1); White Blood Count 9.08 10^3/uL (3.29-11.43)
[2023-03-29 04:57] LABS: Alanine Aminotransferase 8 U/L (0-41); Albumin Level 3.6 g/dL (3.5-5.2); Alkaline Phosphatase 142 U/L (40-130); Anion Gap 22.8 (5-19); Aspartate Amino Transferase 14 U/L (0-40); Blood Urea Nitrogen 56 mg/dL (6-20); Carbon Dioxide 31 mmol/L (22-29); Chloride 90 mmol/L (98-107); Globulin 2.8 g/dL (1.3-4.6); Glomerular Filtration Rate 9.4 mL/min (90-130); Glucose 110 mg/dL (65-115); Magnesium 1.8 mg/dL (1.7-2.3); Osmolality Calculated 302 mOsm/kg (285-295); Potassium 5.8 mmol/L (3.5-5.1); Sodium 138 mmol/L (136-145); Total Bilirubin 0.4 mg/dL (0.15-1.2); Total Protein 6.4 g/dL (6.6-8.7)
[2023-03-29 05:06] LABS: Phosphorus 8.8 mg/dL (2.5-4.5)
[2023-03-29] MEDS: NON-FORMULARY MEDICATION (Cinacalcet 30 mg tablet) 30 EACH PO (05:41)
[2023-03-29] MEDS: isosorbide mononitrate ER 30 mg Tablet PO (05:41)
[2023-03-29] MEDS: amlodipine 10 mg Tablet PO (05:41)
[2023-03-29] MEDS: cholecalciferol (vitamin D3) 5,000 unit Tablet 5000 UNIT PO (05:41)
[2023-03-29] MEDS: clopidogrel 75 mg Tablet PO (05:41)
[2023-03-29] MEDS: sertraline 50 mg Tablet PO (05:41)
[2023-03-29] MEDS: budesonide 0.5 mg/2 mL Neb INHALATION (07:53)
[2023-03-29] MEDS: ipratropium 0.5 mg/2.5 mL Neb INHALATION (07:53)
[2023-03-29] MEDS: levalbuterol 0.63 mg/3 mL Neb INHALATION (07:53)
[2023-03-29] MEDS: cloNIDine 0.1 mg Tablet PO (08:48)
[2023-03-29] MEDS: carvedilol 12.5 mg Tablet PO (08:48)
[2023-03-29] MEDS: apixaban 5 mg Tablet PO (08:48)
[2023-03-29] MEDS: amiodarone 200 mg Tablet PO (08:49)
[2023-03-29] MEDS: sennosides-docusate Tablet 1 TAB PO (08:49)
[2023-03-29] MEDS: levothyroxine 75 mcg Tablet PO (08:49)
[2023-03-29] MEDS: pantoprazole DR 40 mg Tablet PO (08:49)
[2023-03-29] MEDS: hyDRALAzine 50 mg Tablet PO ×2 (08:49→16:31)
[2023-03-29] MEDS: lactulose oral liq 20 gm/30 mL UDC 10 GM PO (08:49)
--- NOTE | 2023-03-29 10:16 | PM.CONSULT ---
Providers/Reason For Consult Consulting Physician/Specialty*: kommana/Nephrology Reason for Consult*: ESRD Attending Physician: Dylan Whitaker MD Primary Care Provider: Randolph Ortiz MD History of Present Illness History of Present Illness Navneet Savage is a 57 year old male patient is a 57-year-old male with past medical history of end-stage renal disease on dialysis Wednesday schedule, A-fib, coronary artery disease with multiple stents presented to the ER due to shortness of breath and was noted to be hypoxic. Patient reports that he did not miss any sessions of dialysis. Review of Systems Narrative: Other ROS negative Medications/Allergies Home Medications Medication Instructions Recorded Confirmed Last Taken Type cinacalcet 30 mg tablet 30 mg PO QAM 05/12/22 03/28/23 03/22/23 History cholecalciferol (vitamin D3) 125 125 mcg PO QAM 06/18/22 03/28/23 03/22/23 History mcg (5,000 unit) capsule ferric citrate 210 mg iron tablet 2 tab PO TID 06/22/22 03/28/23 03/22/23 History (Auryxia) vit B,C-folic ac 800 mcg-zinc 12.5 1 tab PO DAILY 06/22/22 03/28/23 03/22/23 History mg-selen-D3 2,000 unit-vit E tablet (RenaPlex-D) clonidine HCl 0.2 mg tablet 0.1 mg PO BID 30 days #60 tabs 12/31/22 03/28/23 03/23/23 Rx hydralazine 50 mg tablet 50 mg PO TID 30 days #90 tabs 12/31/22 03/28/23 03/23/23 Rx ondansetron 4 mg disintegrating 4 mg PO Q8H PRN nausea and 01/30/23 03/28/23 03/22/23 Rx tablet vomiting #14 tabs apixaban 5 mg tablet (Eliquis) 5 mg PO BID 02/02/23 03/28/23 03/22/23 History clopidogrel 75 mg tablet 75 mg PO QAM 02/02/23 03/28/23 03/22/23 History amiodarone 400 mg tablet 400 mg PO DAILY 02/08/23 03/28/23 03/22/23 History isosorbide mononitrate 60 mg 30 mg PO QAM 02/08/23 03/28/23 03/22/23 History tablet,extended release 24 hr metoprolol tartrate 50 mg tablet 50 mg PO DAILY 02/16/23 03/28/23 03/22/23 History nitroglycerin 0.4 mg sublingual 0.4 mg sublingual DIRECTED PRN 02/16/23 03/28/23 03/22/23 History tablet Chest Pain hydroxyzine HCl 25 mg tablet 25 mg PO QID PRN Itching #120 tabs 02/26/23 03/28/23 03/23/23 Rx levothyroxine 75 mcg tablet 75 mcg PO DAILY 30 days #60 tabs 02/26/23 03/28/23 03/22/23 Rx amlodipine 10 mg tablet 10 mg PO QAM 03/01/23 03/28/23 03/22/23 History atorvastatin 40 mg tablet 40 mg PO BEDTIME 03/01/23 03/28/23 03/22/23 History lactulose 10 gram/15 mL oral See Rx Instructions .Route .COMPLEX 03/01/23 03/28/23 03/22/23 History solution lisinopril 40 mg tablet 40 mg PO QAM 03/01/23 03/28/23 03/22/23 History patiromer calcium sorbitex 8.4 8.4 g PO DAILY 03/01/23 03/28/23 03/22/23 History gram oral powder packet (Veltassa) sertraline 50 mg tablet 50 mg PO QAM 03/01/23 03/28/23 03/22/23 History carvedilol 25 mg tablet 12.5 mg PO BID 03/22/23 03/28/23 03/23/23 History hydroxyzine HCl 50 mg tablet 50 mg PO BEDTIME PRN Insomnia 03/22/23 03/28/23 03/22/23 History Allergies Allergy/AdvReac Type Severity Reaction Status Date / Time Penicillins Allergy ALGY-Anaphy Verified 03/23/23 11:36 laxis Sulfa (Sulfonamide Allergy Unknown Verified 03/23/23 11:36 Antibiotics) fluoxetine [From Prozac] AdvReac Mild stomach Verified 03/23/23 11:36 upset Current Medications Generic Name Dose Route Start Last Admin Trade Name Freq PRN Reason Stop Dose Admin Amiodarone HCl 200 mg 03/29/23 09:00 03/29/23 08:49 Amiodarone 200 Mg Tablet PO 200 mg DAILY MINNA Administration Amlodipine Besylate 10 mg 03/29/23 06:00 03/29/23 05:41 Amlodipine 10 Mg Tablet PO 10 mg QAM MINNA Administration Apixaban 5 mg 03/28/23 18:00 03/29/23 08:48 Apixaban 5 Mg Tablet PO 5 mg BID MINNA Administration Atorvastatin Calcium 40 mg 03/28/23 21:00 03/28/23 20:51 Atorvastatin 40 Mg Tablet PO 40 mg BEDTIME MINNA Administration Budesonide 0.5 mg 03/28/23 20:00 03/29/23 07:53 Budesonide 0.5 Mg/2 Ml Neb INHALATION 0.5 mg BID.RESPIRATORY MINNA Administration Carvedilol 12.5 mg 03/28/23 12:25 03/29/23 08:48 Carvedilol 12.5 Mg Tablet PO 12.5 mg BID MINNA Administration Clonidine HCl 0.1 mg 03/28/23 12:25 03/29/23 08:48 Clonidine 0.1 Mg Tablet PO 0.1 mg BID MINNA Administration Clopidogrel Bisulfate 75 mg 03/29/23 06:00 03/29/23 05:41 Clopidogrel 75 Mg Tablet PO 75 mg QAM MINNA Administration Hydralazine HCl 50 mg 03/28/23 12:30 03/29/23 08:49 Hydralazine 50 Mg Tablet PO 50 mg TID MINNA Administration Hydroxyzine Pamoate 25 mg 03/28/23 15:41 03/29/23 04:26 Hydroxyzine 25 Mg Capsule PO 25 mg QID PRN Administration ITCHING Ipratropium [place] 0.5 mg 03/28/23 14:00 03/29/23 07:53 Ipratropium 0.5 Mg/2.5 Ml Neb INHALATION 0.5 mg Q6H.RESP MINNA Administration Isosorbide Mononitrate 30 mg 03/28/23 12:30 03/29/23 05:41 Isosorbide Mononitrate Er 30 Mg Tablet PO 30 mg QAM MINNA Administration Lactulose 10 gm 03/28/23 12:45 03/29/23 08:49 Lactulose Oral Liq 20 Gm/30 Ml Udc PO 10 gm BID MINNA Administration Protocol Levalbuterol HCl 0.63 mg 03/28/23 14:00 03/29/23 07:53 Levalbuterol 0.63 Mg/3 Ml Neb INHALATION 0.63 mg Q6H.RESP MINNA Administration Levothyroxine Sodium 75 mcg 03/29/23 09:00 03/29/23 08:49 Levothyroxine 75 Mcg Tablet PO 75 mcg DAILY MINNA Administration Non-Formulary Medication 30 mg 03/29/23 06:00 03/29/23 05:41 Cinacalcet PO 30 mg QAM MINNA Administration Pantoprazole Sodium 40 mg 03/29/23 09:00 03/29/23 08:[address] 40 Mg Tablet PO 40 mg DAILY MINNA Administration Senna/Docusate Sodium 1 tab 03/28/23 18:00 03/29/23 08:49 Sennosides-Docusate Tablet PO 1 tab BID MINNA Administration Sertraline HCl 50 mg 03/29/23 06:00 03/29/23 05:41 Sertraline 50 Mg Tablet PO 50 mg QAM MINNA Administration Vitamin D 5,000 unit 03/29/23 06:00 03/29/23 05:41 Cholecalciferol (Vitamin D3) 5,000 Unit Tablet PO 5,000 unit QAM MINNA Administration PFSH Acute PFSH: Medical History (Updated 03/29/23 @ 10:17 by Merly Pak MD) Accelerated hypertension Acute exacerbation of CHF (congestive heart failure) Acute hyperkalemia Altered mental status Anemia in chronic kidney disease Ascites Nephrogenic ascites, gets regular paracentesis Atrial fibrillation with RVR Bilateral hydronephrosis Chest pain Chronic anemia CVA (cerebral vascular accident) Dilated aortic root Elevated troponin I level End stage renal disease on dialysis GERD (gastroesophageal reflux disease) Gout History of stroke Hyperkalemia Hypertension Hypertension Hypoglycemia Hypothyroidism Incomplete bladder emptying Major depressive disorder Malaise Neuropathy, lumbosacral (radicular) Polycystic kidney disease Right bundle branch block (RBBB) on electrocardiogram (ECG) Shortness of breath Tobacco use disorder Unstable angina Surgical History AV fistula left arm History of colonoscopy 2019 at [facility] History of surgical procedure Peritoneal dialysis catheter placement by Dr. Kamara 2016 S/P hemodialysis catheter insertion (03/13/20) 23cm long exchanged right IJ Removed on 06/11/2020 Family History Mother Chronic kidney disease (CKD) Stroke Father Cancer lung Brother Hypertension Other End stage renal disease on dialysis Denies family history of Diabetes CAD (coronary artery disease) Clotting disorder Dementia Hyperlipidemia Psychiatric illness Anesthesia complication Bleeding disorder Lung disease Social History Smoking and tobacco/nicotine status: current every day tobacco/nicotine user cigarettes Packs smoked per day: 1 [ Other cigarette details: Half a pack per day for last 20-30 years] Alcohol intake: never Substance/Drug Use: current Substance/Drug use frequency: few times a week Marital status: Number of children: 1 Current occupational status: disabled Current gender identity: Male Agree to transfusion: Yes Vitals/I&O/Wt Last Vital Signs Temp 98.0 F 03/29/23 07:43 Pulse 92 03/29/23 07:54 Resp 16 03/29/23 07:54 BP 152/102 03/29/23 08:48 Pulse Ox 99 03/29/23 07:54 O2 Del Method Nasal Cannula 03/29/23 07:54 O2 Flow Rate 4 03/29/23 07:54 03/28/23 03/29/23 03/29/23 22:59 06:59 14:59 Intake Total 480 / 1110 240 / 1350 480 / 480 Balance 480 / 1110 240 / 1350 480 / 480 Weight last 48 hrs Weight 99.337 kg Physical Exam Narrative: awake , alert HEENT PEERLA S1S2 RRR per report Lungs clear per reprot no edema Data 03/29/23 03:33 03/29/23 03:33 Micro: Microbiology 03/28/23 16:40 Gram Stain - Final Sputum - Expectorated Sputum Sputum Culture - Preliminary 03/28/23 09:19 Blood Culture - Preliminary Blood NEGATIVE TO DATE 03/28/23 09:22 Blood Culture - Preliminary Blood NEGATIVE TO DATE A&P Assessment and plan (1) End stage renal disease on dialysis: 1. ESRD : on MWF schedule as out pt, plan for HD today 2. HTN : BP ELEVATED , RESTART HOME MEDS 3.CAD with stents 4.Anemia Consult Attestations Medical Necessity Statement: per medicine team Coding Level of Care Code Acute Code for Chg Fwd Diagnoses End stage renal disease on dialysis N18.6; Z99.2
[2023-03-29 11:00] LABS: Folate Level 5.3 ng/mL (4.5-32.2)
[2023-03-29 11:04] LABS: Vitamin B12 335 pg/mL (232-1245)
[2023-03-29 12:22] LABS: Hepatitis B Surface AB 17.9 (11.5-1000); Hepatitis B Surface Antigen Non-Reactive (Nonreactive)
--- NOTE | 2023-03-29 12:34 | PC.NURSE ---
Patient left [facility] for dialysis at 1230.
--- NOTE | 2023-03-29 16:09 | PC.NURSE ---
Patient returns to [facility] from dialysis at 1610.
--- NOTE | 2023-03-29 16:24 | P.DS_ITS ---
Discharge Providers Date of Admission: 03/28/23 10:32 Date of Discharge: March 29, 2023 Attending Provider at Admission: Richie Loaiza MD Attending Provider at Discharge: Dylan Whitaker MD Consults: Nephrology Primary Care Provider: Randolph Ortiz MD Diagnoses at Discharge Discharge Diagnosis (1) Hypoxia: Status: Inactive (2) Congestive heart failure: Status: Inactive (3) Hypertensive urgency: Status: Resolved (4) End stage renal disease on dialysis: Status: Inactive (5) Altered mental status: Status: Resolved Reason for Visit Reason for Visit: SOB Hospital Course Hospital Course Navneet Savage is a 57-year-old male with a past medical history significant for anemia of ESRD, atrial fibrillation, ESRD on HD, hypertension, hypothyroidism, polycystic kidney disease and tobacco use disorder who presented with shortness of breath, found to have acute on chronic hypoxia secondary to acute on chronic diastolic heart failure with hypertensive urgency. Patient treated with anti-hypertensives. Nephrology consulted and followed. He underwent dialysis. Blood pressure and symptoms improved. Patient discharged is stable condition. He is to follow with his primary infrastructure technician on his usual dialysis schedule as well as follow up with PCP for continued care. Physical Exam Narrative: General: Patient is awake and alert. Head: Normocephalic. Atraumatic. EOM intact. Neck: No JVD. Cardiovascular: RRR. No gallops. No murmurs. Lungs: Breath sounds are diminished in bilateral bases, no use of accessory m uscles, no crackles or wheezes. Skin: No jaundice. No rashes. Abdomen: Normal bowel sounds, abdomen soft and nontender. Genito Urinary: Genital exam not performed since complaints not related. Rectal: Rectal exam not performed since no symptoms indicated blood loss. Extremities: No cyanosis or clubbing. Neurological: Moves all 4 extremities. No myoclonus . Discharge Data Studies Completed and Pending Completed Studies During Hospitalization Category [place] [id number] Routine Cat Scan 03/28/23 12:38 Completed XR chest 1V portable [id number] Stat Exams 03/28/23 07:35 Completed Pending at discharge Category Date Time Status Blood Culture Stat Lab 03/28/23 09:19 Results Drug Screen, Urine Stat Lab 03/28/23 12:42 Ordered Sputum Culture and Gram Stain Stat Lab 03/28/23 16:40 Results Urinalysis Routine Lab 03/28/23 12:34 Uncollected Radiology Impressions Chest X-Ray 03/28/23 07:35 IMPRESSION: Basilar increased markings. Chest/Abdomen/Pelvis CT 03/28/23 12:38 IMPRESSION: 1. Technically limited exam due to motion artifact. 2. Cardiomegaly with pulmonary congestion and small bilateral pleural effusions likely secondary to CHF. 3. Multiple healing rib fractures bilaterally. IMPRESSION: 1. Unremarkable bowel gas pattern. No evidence of bowel obstruction or significant constipation. 2. Findings consistent with polycystic kidney disease not significantly changed from previous exam. 3. Mild-moderate amount of ascites decreased from previous exam. 4. Additional nonemergent findings as above. Laboratory Results WBC 9.08 10^3/uL (3.29-11.43) 03/29/23 03:33 RBC 3.03 10^6/uL (3.85-5.65) L 03/29/23 03:33 Hgb 9.40 g/dL (11.27-16.99) L 03/29/23 03:33 Hct 30.3 % (37-53) L 03/29/23 03:33 MCV 100.0 fl (82-101) 03/29/23 03:33 MCH 31.0 pg (27-33) 03/29/23 03:33 MCHC 31.0 g/dL (30-55) 03/29/23 03:33 RDW 16.9 % (12.1-15.1) H 03/29/23 03:33 Plt Count 251 10^3/cmm (157-399) 03/29/23 03:33 MPV 10.1 fL (7.4-10.4) 03/29/23 03:33 Neut % (Auto) 86.0 % 03/29/23 03:33 Lymph % (Auto) 6.1 % 03/29/23 03:33 [place] % (Auto) 7.5 % 03/29/23 03:33 Eos % (Auto) 0.0 % 03/29/23 03:33 Baso % (Auto) 0.0 % 03/29/23 03:33 Neut # (Auto) 7.81 10^3/uL (1.8-7.7) H 03/29/23 03:33 Lymph # (Auto) 0.6 10^3/uL (0.8-4.8) L 03/29/23 03:33 [place] # (Auto) 0.7 10^3/uL (0.2-0.9) 03/29/23 03:33 Eos # (Auto) 0.0 10^3/uL (0.0-0.8) 03/29/23 03:33 Baso # (Auto) 0.0 10^3/uL (0.0-0.1) 03/29/23 03:33 Nucleated RBC % (auto) 0 % 03/29/23 03:33 Nucleated RBCs # 0.0 /100WBC 03/29/23 03:33 Specimen Type Arterial 03/28/23 12:55 Sample Site Radial, right 03/28/23 12:55 ABG pH 7.45 (7.35-7.45) 03/28/23 12:55 ABG pCO2 50.0 mmHg (35-45) H 03/28/23 12:55 ABG pO2 72.6 mmHg (80.0-100.0) L 03/28/23 12:55 ABG HCO3 35.0 mmol/L (22-26) H 03/28/23 12:55 ABG O2 Saturation 94.7 03/28/23 12:55 ABG Base Excess 9.8 mmol/L (-2.0-2.0) H 03/28/23 12:55 Denis Test Pos 03/28/23 12:55 A-a O2 Gradient 2.1 mmHg (5-10) L 03/28/23 12:55 Hematocrit 30.6 % (42-52) L 03/28/23 12:55 Hgb O2 Saturation 92.4 % (95-100) L 03/28/23 12:55 Carboxyhemoglobin 2.0 %THgb (0.4-20.1) 03/28/23 12:55 Methemoglobin 0.5 % (0.4-1.5) 03/28/23 12:55 Total Hemoglobin 10.0 g/dL (14-18) L 03/28/23 12:55 Sodium 138.0 mmol/L (131-143) 03/28/23 12:55 Potassium 5.6 mmol/L (3.5-5.0) H 03/28/23 12:55 Glucose 162.0 mg/dL (70-115) H 03/28/23 12:55 Ionized Calcium 1.2 mmol/L (1.1-1.4) 03/28/23 12:55 O2 Delivery Device Nc 03/28/23 12:55 O2 Liters/Min 3.0 % 03/28/23 12:55 [place]per[place] Counselor ID Kemar 03/28/23 12:55 Sodium 138 mmol/L (136-145) 03/29/23 03:33 Potassium 5.8 mmol/L (3.5-5.1) H 03/29/23 03:33 Chloride 90 mmol/L (98-107) L 03/29/23 03:33 Carbon Dioxide 31 mmol/L (22-29) H 03/29/23 03:33 Anion Gap 22.8 (5-19) H 03/29/23 03:33 BUN 56 mg/dL (6-20) H 03/29/23 03:33 Creatinine 6.2 mg/dL (0.7-1.2) H* 03/29/23 03:33 GFR Calculation 9.4 mL/min (90-130) L 03/29/23 03:33 Glucose 110 mg/dL (65-115) 03/29/23 03:33 Calculated Osmolality 302 mOsm/kg (285-295) H 03/29/23 03:33 Lactic Acid 1.4 mmol/L (0.5-2.2) 03/28/23 09:19 Calcium 10.0 mg/dL (8.5-10.5) 03/29/23 03:33 Phosphorus 8.8 mg/dL (2.5-4.5) H* 03/29/23 03:33 Magnesium 1.8 mg/dL (1.7-2.3) 03/29/23 03:33 Total Bilirubin 0.4 mg/dL (0.15-1.2) 03/29/23 03:33 AST 14 U/L (0-40) 03/29/23 03:33 ALT 8 U/L (0-41) 03/29/23 03:33 Alkaline Phosphatase 142 U/L (40-130) H 03/29/23 03:33 Ammonia 20 umol/L (16-60) 03/28/23 13:10 NT-Pro-B Natriuret Pep > 48465 pg/mL (0-125) H 03/28/23 09:22 Total Protein 6.4 g/dL (6.6-8.7) L 03/29/23 03:33 Albumin 3.6 g/dL (3.5-5.2) 03/29/23 03:33 Globulin 2.8 g/dL (1.3-4.6) 03/29/23 03:33 Vitamin B12 335 pg/mL (232-1245) 03/28/23 13:10 Folate 5.3 ng/mL (4.5-32.2) 03/29/23 03:33 Procalcitonin 0.33 ng/mL (0-0.5) 03/28/23 09:22 TSH 6.03 uIU/mL (0.27-4.20) H 03/28/23 09:22 Nasal Influ A H1 2008 PCR Not detected (NOT DETECT) 03/28/23 19:40 Adenovirus (PCR) Not detected (NOT DETECT) 03/28/23 19:40 C. pneumoniae DNA (PCR) Not detected (NOT DETECT) 03/28/23 19:40 Coronavirus 229E (PCR) Not detected (NOT DETECT) 03/28/23 19:40 Hep Bs Antigen Non-reactive (Nonreactive) 03/29/23 03:33 Hep Bs Antibody 17.9 (11.5-1000) 03/29/23 03:33 Human Metapneumovir PCR Not detected (NOT DETECT) 03/28/23 19:40 Influenza A (H1) PCR Not detected (NOT DETECT) 03/28/23 19:40 Influenza A (H3) PCR Not detected (NOT DETECT) 03/28/23 19:40 Influenza Type A (PCR) Not detected (NOT DETECT) 03/28/23 19:40 Influenza Type B (PCR) Not detected (NOT DETECT) 03/28/23 19:40 M. pneumoniae (PCR) Not detected (NOT DETECT) 03/28/23 19:40 Parainfluenza 1 (PCR) Not detected (NOT DETECT) 03/28/23 19:40 Parainfluenza 2 (PCR) Not detected (NOT DETECT) 03/28/23 19:40 Parainfluenza 3 (PCR) Not detected (NOT DETECT) 03/28/23 19:40 Parainfluenza 4 (PCR) Not detected (NOT DETECT) 03/28/23 19:40 RSV Type A (PCR) Not detected (NOT DETECT) 03/28/23 19:40 RSV Type B (PCR) Not detected (NOT DETECT) 03/28/23 19:40 Entero/Rhino (PCR) Not detected (NOT DETECT) 03/28/23 19:40 SARS-CoV-2 (PCR) Not detected (NOT DETECT) 03/28/23 19:40 Vitals Last Vital Signs Temp 98.1 F 03/29/23 16:00 Pulse 77 03/29/23 16:00 Resp 17 03/29/23 16:00 BP 100/63 03/29/23 16:00 Pulse Ox 91 03/29/23 11:25 O2 Del Method Nasal Cannula 03/29/23 11:25 O2 Flow Rate 4 03/29/23 07:54 Discharge Plan Discharge Patient Disposition: Home Condition: Stable Prescriptions: Continued cholecalciferol (vitamin D3) 125 mcg (5,000 unit) capsule 125 mcg PO QAM hydroxyzine HCl 25 mg tablet 25 mg PO QID PRN (Reason: Itching) Qty: 120 4RF levothyroxine 75 mcg tablet 75 mcg PO DAILY 30 Days Qty: 60 2RF cinacalcet 30 mg tablet 30 mg PO QAM clopidogrel 75 mg tablet 75 mg PO QAM Eliquis 5 mg tablet 5 mg PO BID clonidine HCl 0.2 mg tablet 0.1 mg PO BID 30 Days Qty: 60 4RF hydralazine 50 mg tablet 50 mg PO TID 30 Days Qty: 90 0RF ondansetron 4 mg tablet,disintegrating 4 mg PO Q8H PRN (Reason: nausea and vomiting) Qty: 14 0RF atorvastatin 40 mg tablet 40 mg PO BEDTIME amlodipine 10 mg tablet 10 mg PO QAM lisinopril 40 mg tablet 40 mg PO QAM Hold Instructions: Resume on 03/05/23. Veltassa 8.4 gram powder in packet 8.4 g PO DAILY sertraline 50 mg tablet 50 mg PO QAM lactulose 10 gram/15 mL solution See Rx Instructions .ROUTE .COMPLEX Rx Instructions: 15 mL orally ON NON DIALYSIS DAYS- WEDNESDAY, WEDNESDAY, WEDNESDAY AND WEDNESDAY Auryxia 210 mg iron tablet 2 tab PO TID RenaPlex-D 800 mcg-12.5 mg -2,000 unit tablet 1 tab PO DAILY amiodarone 400 mg tablet 400 mg PO DAILY isosorbide mononitrate 60 mg tablet extended release 24 hr 30 mg PO QAM metoprolol tartrate 50 mg tablet 50 mg PO DAILY nitroglycerin 0.4 mg tablet, sublingual 0.4 mg sublingual DIRECTED PRN (Reason: Chest Pain) carvedilol 25 mg tablet 12.5 mg PO BID hydroxyzine HCl 50 mg tablet 50 mg PO BEDTIME PRN (Reason: Insomnia) Discharge Orders: Discharge Order (Routine); Ordered 03/29/23 Ordered By: Dylan Whitaker Referrals: Randolph Ortiz MD [Primary Care Provider] - 1-3 days (We have notified your physician's clinic of the need for a follow-up appointment to be scheduled. If you have not heard from them within the next 2 business days, please call them directly. You may also reach out to our utility manager at [phone] and she can assist you.) Discharge Diet: Advance as tolerated and Usual diet Discharge Activity: Resume usual activity and Increase activity as tolerated Patient Instructions: Community Acquired Pneumonia (DC), Hypertensive Crisis (DC), Hypoxia (GEN), Opioid Safety Activity Restrictions/Additional Instructions: 1. Take medications as prescribed. 2. Follow up with PCP. 3. Attend regular dialysis schedule. Discharge Attestations Time Spent in Discharge Care*: greater than 30 min Quality Metrics Clinical Quality Measures [ No reported AMI, CVA or VTE this stay] Coding Level of Care Code Acute Code for Chg Fwd Diagnoses Hypoxia R09.02 Congestive heart failure I50.9 Hypertensive urgency I16.0 End stage renal disease on dialysis N18.6; Z99.2 Altered mental status R41.82
== END 2023-03-29 18:13 | disposition home or self-care (01) ==
LOC: ER 07:46 → CSU 10:56
PROVIDERS: Hospitalist; Admitting Provider Student in an Organized Health Care Education/Training Program; Emergency Provider Family Medicine; PCP Family Medicine; Visit Provider Internal Medicine
DX: R09.02 Hypoxemia (principal); I50.9 Heart failure, unspecified; I16.0 Hypertensive urgency; I13.0 Hypertensive heart and chronic kidney disease with heart failure and stage 1 through stage 4 chronic kidney disease, or unspecified chronic kidney disease; N18.6 End stage renal disease; Z99.2 Dependence on renal dialysis; R41.82 Altered mental status, unspecified; D63.1 Anemia in chronic kidney disease; E03.9 Hypothyroidism, unspecified; I50.32 Chronic diastolic (congestive) heart failure; I48.91 Unspecified atrial fibrillation; I25.10 Atherosclerotic heart disease of native coronary artery without angina pectoris; Z95.5 Presence of coronary angioplasty implant and graft; Z86.73 Personal history of transient ischemic attack (TIA), and cerebral infarction without residual deficits; F17.210 Nicotine dependence, cigarettes, uncomplicated
CPT/HCPCS: 36415; 36600; 71045; 71250; 74176; 80051; 80053; 82140; 82330; 82607; 82746; 82805; 83605; 83735; 83880; 84100; 84145; 84443; 85025; 86706; 87040; 87070; 87205; 87340; 87486; 87581; 87633; 90935; 93005; 94640; 96365; 96372; 96376; 99285; G0378; J1100; J1956; J7614; J7626; J7644; Q3014

== ENCOUNTER 2023-04-06 10:39 | Day surgery (SDC) | payer MEDICARE, MEDICAID, SELFPAY ==
[2023-04-06 10:55] VITALS: BP 184/102; PULSE 81; RESP 18; TEMP 36.5; O2SAT 98; BMI 33.3
--- NOTE | 2023-04-06 11:03 | PC.NURSE ---
Patient did not bring med list with him today and cannot confirm meds with nurse.
--- NOTE | 2023-04-06 11:07 | US_ITS ---
WS: [id number] Abdominal ultrasound, limited. History: Evaluate for ascites. Comparison: None. All 4 quadrants are imaged by ultrasound to evaluate for ascites. Very small amount of ascites in all 4 quadrants. Insufficient for paracentesis. IMPRESSION: Insufficient ascites for paracentesis.
== END 2023-04-06 11:47 | disposition home or self-care (01) ==
LOC: GILAB 10:40
PROVIDERS: Radiology Diagnostic Radiology; PCP Family Medicine; Visit Provider Internal Medicine Nephrology
DX: R18.8 Other ascites (principal)
CPT/HCPCS: 76705

== ENCOUNTER 2023-04-13 11:01 | Day surgery (SDC) | payer MEDICARE, MEDICAID, SELFPAY ==
--- NOTE | 2023-04-13 11:05 | US_ITS ---
WS: [id number] ULTRASOUND-GUIDED PARACENTESIS CLINICAL INFORMATION: Ascites COMPARISON: None. Procedure Informed consent: The risks, benefits, and alternatives of the procedure were discussed with the lisa ent. Verbal and written consent was obtained. Timeout: A timeout was performed to confirm the correct patient, procedure, and site. Preparation: A suitable skin site was identified. The patient was prepped and draped in usual sterile fashion. Lidocaine 1% was used for local anesthesia. Catheter: 4 [place] One-step Yueh catheter. Side: LEFT lower quadrant. Fluid Volume: 3800 ml Color: Clear yellow DISPOSITION: Discarded safely. Complications: None. Patient disposition: Discharged from the department in stable condition. IMPRESSION: Uncomplicated ultrasound-guided paracentesis. Removal of 3800 cc
[2023-04-13 11:13] VITALS: BP 179/84; PULSE 99; RESP 18; TEMP 36.5; O2SAT 99
[2023-04-13] MEDS: albumin 75 G/300 ML BAG 500 G IV (11:59)
== END 2023-04-13 12:32 | disposition home or self-care (01) ==
LOC: GILAB 11:02
PROVIDERS: Radiology Neuroradiology; PCP Family Medicine; Visit Provider Internal Medicine Nephrology
PROC: (CPT 49082; principal; 2023-04-13 12:00)
DX: R18.8 Other ascites (principal)
CPT/HCPCS: 49083; P9046

== ENCOUNTER 2023-04-20 11:02 | Day surgery (SDC) | payer MEDICARE, MEDICAID, SELFPAY ==
--- NOTE | 2023-04-20 11:14 | US_ITS ---
WS: [id number] ULTRASOUND-GUIDED THERAPEUTIC PARACENTESIS Procedure, risks, and complications have been explained to the patient. Consent is obtained. Utilizing aseptic technique and 1% buffered lidocaine, a small dermatome was made through which a 5 F rench Yueh catheter was inserted. Approximately 3000 ml of clear peritoneal fluid was obtained witho ut difficulty. No complications encountered. IMPRESSION: Uncomplicated paracentesis yielding 3000 ml of peritoneal fluid.
[2023-04-20 11:15] VITALS: BP 175/107; PULSE 97; RESP 20; TEMP 36.6; O2SAT 94; BMI 25.0
[2023-04-20] MEDS: albumin 75 G/300 ML BAG 300 G IV (12:20)
== END 2023-04-20 12:54 | disposition home or self-care (01) ==
LOC: GILAB 11:03
PROVIDERS: Radiology Diagnostic Radiology; PCP Family Medicine; Visit Provider Internal Medicine Nephrology
PROC: (CPT 49082; principal; 2023-04-20 12:00)
DX: R18.8 Other ascites (principal)
CPT/HCPCS: 49083; 96365; P9046

== ENCOUNTER 2023-04-26 14:29 | Emergency (ER) | payer MEDICARE, MEDICAID, SELFPAY ==
[2023-04-26 14:30] VITALS: BP 116/68; PULSE 58; RESP 26; TEMP 37.1; O2SAT 97
--- NOTE | 2023-04-26 14:38 | ECG_ITS ---
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 Measurements Intervals [place] Rate: 58 P: 54 GA: 214 QRS: -45 QRSD: 122 T: -41 QT: 457 QTc: 449 Interpretive Statements SINUS BRADYCARDIA WITH FIRST DEGREE AV BLOCK LEFT ANTERIOR FASCICULAR BLOCK [QRS AXIS <= -45, QR IN I, RS IN II] NONSPECIFIC T-WAVE ABNORMALITY Compared to ECG 03/28/2023 07:49:01 First degree AV block now present Left anterior fascicular block now present T-wave abnormality now present Sinus rhythm no longer present Left-axis deviation no longer present Myocardial infarct finding no longer present Electronically Signed On 04-26-2023 15:01:18 RN ONCOLOGY CLINICAL by Dora Mustafa M.D. [id number]
--- NOTE | 2023-04-26 14:39 | CT_ITS ---
WS: [id number] CT HEAD NONCONTRAST HISTORY: confusion TECHNIQUE: Contiguous axial imaging performed through the brain in 2.5 mm imaging. Bone and soft tiss ue windows. Sagittal and coronal reformats reviewed. All CT scans at [facility] use at least one of these dose optimization techniques: automated exposure control; mA and/or kV adjustment per pa tient size (includes targeted exams where dose is matched to clinical indication); or iterative recon struction. DLP: 1031.41 mGy.cm COMPARISON: 12/30/2022 No acute intracranial hemorrhage, midline shift or mass effect. Mild atrophy and small vessel ischemic disease. Heavy calcification along the interhemispheric falx a nd the tentorium. Ventricles: Normal size with no hydrocephalus. No inferior displacement of the cerebellar tonsils. Paranasal sinuses: As visualized are clear. Mastoid air cells: Fluid in the mastoid air cells bilaterally. The amount of fluid has increased sinc e 12/30/2022. Calvarium and scalp: Skull is intact with no soft tissue edema or swelling. IMPRESSION: 1. No acute intracranial hemorrhage or edema. 2. Mild atrophy and small vessel ischemic disease. 3. Bilateral mastoid air cell effusions have progressed since 12/30/2022.
--- NOTE | 2023-04-26 14:39 | ED_ITS ---
HPI - Weakness 2 General: Chief complaint: Weakness Stated complaint: breathing issues Time Seen by Provider: 04/26/23 14:31 Source: patient and EMS Mode of arrival: EMS Limitations: no limitations History of Present Illness: 58-year-old male well-known to the ER gomez s a history of ascites along with end- stage renal disease and hypertension. States he did receive dialysis today he had some slight confusion at home he is answering my questions here appropriately. He is scheduled to have a paracentesis tomorrow. He denies any chest pain or headache. Associated symptoms: Reports confusion; Denies chest pain, chills, fever(s), headache(s), nausea or vomiting Review of Systems 2 Const: Reports: fatigue; Denies: fever(s), chills, body aches or change in appetite Eyes: Denies: blurry vision or eye discomfort ENMT: Denies: throat pain or dental pain Card: Denies: chest pain Resp: Denies: dyspnea GI: Denies: abdominal pain, nausea, vomiting or diarrhea Musc: Denies: neck pain or back pain Skin/Breast: Denies: rash Neuro: Reports: confusion; Denies: headache(s) PFSH ED 2 PFSH: Medical History Hypoxia End stage renal disease on dialysis Congestive heart failure Hyperkalemia Unstable angina Acute exacerbation of CHF (congestive heart failure) Acute hyperkalemia Shortness of breath Accelerated hypertension Atrial fibrillation with RVR Hypertension Elevated troponin I level Chest pain Altered mental status Malaise Anemia in chronic kidney disease Hypoglycemia Neuropathy, lumbosacral (radicular) End stage renal disease on dialysis Tobacco use disorder Gout Major depressive disorder History of stroke Hypothyroidism GERD (gastroesophageal reflux disease) Dilated aortic root Right bundle branch block (RBBB) on electrocardiogram (ECG) Ascites Nephrogenic ascites, gets regular paracentesis Bilateral hydronephrosis Incomplete bladder emptying Chronic anemia Polycystic kidney disease CVA (cerebral vascular accident) Hypertension Surgical History AV fistula left arm S/P hemodialysis catheter insertion (03/13/20) 23cm long exchanged right IJ Removed on 06/11/2020 History of colonoscopy 2019 at [facility] History of surgical procedure Peritoneal dialysis catheter placement by Dr. Kamara 2015 Family History Mother Chronic kidney disease (CKD) Stroke Father Cancer lung Brother Hypertension Other End stage renal disease on dialysis Denies family history of Diabetes CAD (coronary artery disease) Clotting disorder Dementia Hyperlipidemia Psychiatric illness Anesthesia complication Bleeding disorder Lung disease Social History Smoking and tobacco/nicotine status: former use of tobacco/nicotine Quit status (tobacco/nicotine): has quit using Alcohol intake: never Substance/Drug Use: current Substance/Drug use frequency: few times a week Marital status: Number of children: 1 Current occupational status: disabled Current gender identity: Male Agree to transfusion: Yes Physical Exam 2 Const: COMMON NORMALS: patient oriented x3 HENMT: COMMON NORMALS: normocephalic and atraumatic HEAD & SCALP: n ormocephalic and atraumatic Eye: COMMON NORMALS: Equal, round and reactive pupils present and EOMs intact bilaterally PUPIL: Yes Equal, round and reactive pupils present Neck/C-Spine: COMMON NORMALS: full ROM and supple Chest: COMMONS NORMALS: normal inspection of the chest Resp: COMMON NORMALS: normal respiratory effort, No retractions, No use of accessory muscles and clear to auscultation bilaterally AUSCULTATION: clear to auscultation bilaterally Cardio: COMMON NORMALS: regular rate, regular rhythm and No murmurs present (Cardio) RATE: regular rate RHYTHM: regular rhythm GI: COMMON NORMALS: Soft to palpation, non-tender and no masses PALPATION: Yes Soft to palpation OTHER: abdominal distension Extremity: COMMON NORMALS: normal to inspection and full ROM Neuro: COMMON NORMALS: patient oriented x3, moves all extremities and no focal motor deficits Psych: COMMON NORMALS: mental status grossly normal, Normal thought process present and cooperative THOUGHT PROCESS: Normal thought process present Skin: COMMON NORMALS: no rashes or lesions noted and no wounds GENERAL SKIN EXAM: no rashes or lesions noted Course 2 Vital Signs: Vital signs: Vital Signs Temperature 98.7 F 04/26/23 14:30 Pulse Rate 59 L 04/26/23 16:52 Respiratory Rate 22 H 04/26/23 16:52 Blood Pressure 147/77 04/26/23 16:52 Pulse Oximetry 97 04/26/23 16:52 Oxygen Delivery Me thod Nasal Cannula 04/26/23 15:21 Oxygen Flow Rate 3 04/26/23 15:21 MDM - Weakness Medical Decision Making Patient presents here with generalized weakness he is well-appearing here he is answer my questions appropriately his labs are baseline he is stable for discharge she is to get paracentesis scheduled tomorrow return if worsening. Medical Records I reviewed the patient's medical records. Lab Data I reviewed the patient's lab results. 04/26/23 14:39 04/26/23 14:39 Laboratory Results WBC 5.83 10^3/uL (3.29-11.43) 04/26/23 14:39 RBC 3.04 10^6/uL (3.85-5.65) L 04/26/23 14:39 Hgb 9.30 g/dL (11.27-16.99) L 04/26/23 14:39 Hct 29.9 % (37-53) L 04/26/23 14:39 MCV 98.4 fl (82-101) 04/26/23 14:39 MCH 30.6 pg (27-33) 04/26/23 14:39 MCHC 31.1 g/dL (30-55) 04/26/23 14:39 RDW 18.1 % (12.1-15.1) H 04/26/23 14:39 Plt Count 228 10^3/cmm (157-399) 04/26/23 14:39 MPV 11.0 fL (7.4-10.4) H 04/26/23 14:39 Neut % (Auto) 75.4 % 04/26/23 14:39 Lymph % (Auto) 11.0 % 04/26/23 14:39 [place] % (Auto) 10.1 % 04/26/23 14:39 Eos % (Auto) 2.9 % 04/26/23 14:39 Baso % (Auto) 0.3 % 04/26/23 14:39 Neut # (Auto) 4.39 10^3/uL (1.8-7.7) 04/26/23 14:39 Lymph # (Auto) 0.6 10^3/uL (0.8-4.8) L 04/26/23 14:39 [place] # (Auto) 0.6 10^3/uL (0.2-0.9) 04/26/23 14:39 Eos # (Auto) 0.2 10^3/uL (0.0-0.8) 04/26/23 14:39 Baso # (Auto) 0.0 10^3/uL (0.0-0.1) 04/26/23 14:39 Nucleated RBC % (auto) 0 % 04/26/23 14:39 Nucleated RBCs # 0.0 /100WBC 04/26/23 14:39 Sodium 136 mmol/L (136-145) 04/26/23 14:39 Potassium 4.6 mmol/L (3.5-5.1) 04/26/23 14:39 Chloride 94 mmol/L (98-107) L 04/26/23 14:39 Carbon Dioxide 31 mmol/L (22-29) H 04/26/23 14:39 Anion Gap 15.6 (5-19) 04/26/23 14:39 BUN 27 mg/dL (6-20) H 04/26/23 14:39 Creatinine 2.2 mg/dL (0.7-1.2) H 04/26/23 14:39 GFR Calculation 30.9 mL/min (90-130) L 04/26/23 14:39 Glucose 97 mg/dL (65-115) 04/26/23 14:39 Calculated Osmolality 287 mOsm/kg (285-295) 04/26/23 14:39 Calcium 10.4 mg/dL (8.5-10.5) 04/26/23 14:39 Total Bilirubin 0.4 mg/dL (0.15-1.2) 04/26/23 14:39 AST 21 U/L (0-40) 04/26/23 14:39 ALT 11 U/L (0-41) 04/26/23 14:39 Alkaline Phosphatase 142 U/L (40-130) H 04/26/23 14:39 Ammonia 33 umol/L (16-60) 04/26/23 14:39 Total Protein 6.2 g/dL (6.6-8.7) L 04/26/23 14:39 Albumin 3.9 g/dL (3.5-5.2) 04/26/23 14:39 Globulin 2.3 g/dL (1.3-4.6) 04/26/23 14:39 All radiology interpretation(s) finalized by discharge EKG Data EKG 1: I personally reviewed and interpreted this EKG as follows: EKG interpretation date: 04/26/23 EKG interpretation time: 14:37 Interpretation: sinus efrain hr [address] or t wave abnormalities qrs 122 qtc 453 Discharge Plan Discharge Patient Disposition: Home Clinical Impression: Weakness, End stage renal disease Condition: Stable Prescriptions: No Action allopurinol 100 mg tablet 100 mg PO DAILY sertraline 50 mg tablet 50 mg PO QAM Qty: 90 1RF ondansetron 4 mg tablet,disintegrating 4 mg PO Q8H PRN (Reason: nausea and vomiting) Qty: 90 1RF lactulose 10 gram/15 mL solution See Rx Instructions .ROUTE .COMPLEX Qty: 473 1RF Rx Instructions: TThSaSu; 15 mL orally ON NON DIALYSIS DAYS- WEDNESDAY, WEDNESDAY, WEDNESDAY AND WEDNESDAY hydroxyzine HCl 50 mg tablet 50 mg PO BEDTIME PRN (Reason: Insomnia) Qty: 90 0RF cholecalciferol (vitamin D3) 125 mcg (5,000 unit) capsule 125 mcg PO QAM hydroxyzine HCl 25 mg tablet 25 mg PO QID PRN (Reason: Itching) Qty: 120 4RF levothyroxine 75 mcg tablet 75 mcg PO DAILY 30 Days Qty: 60 2RF cinacalcet 30 mg tablet 30 mg PO QAM clopidogrel 75 mg tablet 75 mg PO QAM Eliquis 5 mg tablet 5 mg PO BID clonidine HCl 0.2 mg tablet 0.1 mg PO BID 30 Days Qty: 60 4RF hydralazine 50 mg tablet 50 mg PO TID 30 Days Qty: 90 0RF atorvastatin 40 mg tablet 40 mg PO BEDTIME amlodipine 10 mg tablet 10 mg PO QAM lisinopril 40 mg tablet 40 mg PO QAM Hold Instructions: Resume on 03/05/23. Veltassa 8.4 gram powder in packet 8.4 g PO DAILY Auryxia 210 mg iron tablet 2 tab PO TID RenaPlex-D 800 mcg-12.5 mg -2,000 unit tablet 1 tab PO DAILY amiodarone 400 mg tablet 400 mg PO DAILY isosorbide mononitrate 60 mg tablet extended release 24 hr 30 mg PO QAM metoprolol tartrate 50 mg tablet 50 mg PO DAILY nitroglycerin 0.4 mg tablet, sublingual 0.4 mg sublingual DIRECTED PRN (Reason: Chest Pain) carvedilol 25 mg tablet 12.5 mg PO BID Discharge Orders: Discharge ED (Routine); Ordered 04/26/23 Ordered By: Ghada Fontanez Referrals: Randolph Ortiz MD [Primary Care Provider] - 1-3 days Discharge Diet: Advance as tolerated Discharge Activity: Resume usual activity Patient Instructions: Weakness (ED) Coding Level of Care Code ED Ppap Coordinator for Eric Sandhu
[2023-04-26 14:47] VITALS: PULSE 59; O2SAT 97
[2023-04-26 14:49] LABS: Basophils % 0.3 %; Eosinophils # 0.2 10^3/uL (0.0-0.8); Eosinophils % 2.9 %; Hematocrit 29.9 % (37-53); Lymphocytes # 0.6 10^3/uL (0.8-4.8); Mean Corpuscular HGB Conc 31.1 g/dL (30-55); Mean Corpuscular Hemoglobin 30.6 pg (27-33); Mean Corpuscular Volume 98.4 fl (82-101); Monocytes # 0.6 10^3/uL (0.2-0.9); Monocytes % 10.1 %; Neutrophils # 4.39 10^3/uL (1.8-7.7); Neutrophils % 75.4 %; Nucleated Red Blood Cells % 0 %; Platelet Count 228 10^3/cmm (157-399); Red Blood Count 3.04 10^6/uL (3.85-5.65); Red Cell Distribution Width 18.1 % (12.1-15.1); White Blood Count 5.83 10^3/uL (3.29-11.43)
[2023-04-26 15:09] LABS: Albumin Level 3.9 g/dL (3.5-5.2); Osmolality Calculated 287 mOsm/kg (285-295); Sodium 136 mmol/L (136-145)
[2023-04-26 15:21] VITALS: BP 100/31; PULSE 60; RESP 20; O2SAT 95
[2023-04-26 15:37] LABS: Anion Gap 15.6 (5-19); Carbon Dioxide 31 mmol/L (22-29); Chloride 94 mmol/L (98-107); Potassium 4.6 mmol/L (3.5-5.1)
[2023-04-26 15:38] LABS: Alanine Aminotransferase 11 U/L (0-41); Aspartate Amino Transferase 21 U/L (0-40); Blood Urea Nitrogen 27 mg/dL (6-20); Calcium 10.4 mg/dL (8.5-10.5); Glomerular Filtration Rate 30.9 mL/min (90-130); Glucose 97 mg/dL (65-115); Total Bilirubin 0.4 mg/dL (0.15-1.2)
[2023-04-26 15:39] LABS: Alkaline Phosphatase 142 U/L (40-130); Globulin 2.3 g/dL (1.3-4.6); Total Protein 6.2 g/dL (6.6-8.7)
[2023-04-26 15:43] LABS: Ammonia 33 umol/L (16-60)
[2023-04-26 16:04] VITALS: BP 138/79; PULSE 59
[2023-04-26 16:52] VITALS: BP 147/77; PULSE 59; RESP 22; O2SAT 97
== END 2023-04-26 16:54 | disposition home or self-care (01) ==
PROVIDERS: Emergency Provider Emergency Medicine; PCP Family Medicine
DX: R53.1 Weakness (principal); I13.2 Hypertensive heart and chronic kidney disease with heart failure and with stage 5 chronic kidney disease, or end stage renal disease; N18.6 End stage renal disease; I50.9 Heart failure, unspecified; Z99.2 Dependence on renal dialysis; Z86.73 Personal history of transient ischemic attack (TIA), and cerebral infarction without residual deficits; Z87.891 Personal history of nicotine dependence
CPT/HCPCS: 70450; 80053; 82140; 85025; 93005; 99285

== ENCOUNTER 2023-04-27 10:46 | Day surgery (SDC) | payer MEDICARE, MEDICAID, SELFPAY ==
--- NOTE | 2023-04-27 10:54 | US_ITS ---
WS: [id number] ULTRASOUND-GUIDED PARACENTESIS CLINICAL INFORMATION: ascites COMPARISON: None. Procedure Informed consent: The risks, benefits, and alternatives of the procedure were discussed with the lisa ent. Verbal and written consent was obtained. Timeout: A timeout was performed to confirm the correct patient, procedure, and site. Preparation: A suitable skin site was identified. The patient was prepped and draped in usual sterile fashion. Lidocaine 1% was used for local anesthesia. Catheter: 4 Czech One-step Yueh catheter. Side: LEFT lower quadrant. Fluid Volume: 3500 ml Color: Clear yellow DISPOSITION: Discarded safely. Complications: None. Patient disposition: Discharged from the department in stable condition. IMPRESSION: Uncomplicated ultrasound-guided paracentesis. Removal of 3500 cc
[2023-04-27 10:57] VITALS: BP 159/89; PULSE 70; RESP 18; TEMP 36.3; O2SAT 96
[2023-04-27 10:58] VITALS: BMI 33.2
[2023-04-27 12:27] VITALS: BP 140/80; PULSE 69; RESP 17; O2SAT 99
== END 2023-04-27 12:36 | disposition home or self-care (01) ==
LOC: GILAB 10:46
PROVIDERS: Radiology Neuroradiology; PCP Family Medicine; Visit Provider Internal Medicine Nephrology
PROC: (CPT 49082; principal; 2023-04-27 12:00)
DX: R18.8 Other ascites (principal)
CPT/HCPCS: 49083; P9047

== ENCOUNTER 2023-04-28 07:56 | Emergency (ER) | payer MEDICARE, MEDICAID, SELFPAY ==
[2023-04-28 07:57] VITALS: BMI 33.2
[2023-04-28 07:59] VITALS: BP 96/53; PULSE 47; RESP 16; TEMP 36.6; O2SAT 95
--- NOTE | 2023-04-28 08:00 | ED_ITS ---
HPI - General Adult 2 General: Chief complaint: Arrhythmia/Palpitations Stated complaint: Hypotension, Bradycardia Time Seen by Provider: 04/28/23 07:59 Source: patient and EMS Mode of arrival: EMS Limitations: no limitations History of Present Illness: 58-year-old male is very well-known to [facility] ER history of end-stage renal disease states he was at an appointment to have a paracentesis today and then sent him here due to low heart rate and hypotension. His heart rate here is 50 blood pressure is 96/53 he has no medical complaints at this time he denies any pain anywhere denies any vomiting or diarrhea he is on multiple blood pressure medicines. Associated symptoms: Deny chest pain, dyspnea, headache(s), nausea, rash or vomiting Review of Systems 2 Const: Denies: fever(s), chills, body aches or change in appetite Eyes: Denies: blurry vision or eye discomfort ENMT: Denies: throat pain or dental pain Card: Denies: chest pain Resp: Denies: dyspnea GI: Denies: abdominal pain, nausea, vomiting or diarrhea : Denies: dysuria Musc: Denies: neck pain or back pain Skin/Breast: Denies: rash Neuro: Denies: headache(s) PFSH ED 2 PFSH: Medical History Hypoxia End stage renal disease on dialysis Congestive heart failure Hyperkalemia Unstable angina Acute exacerbation of CHF (congestive heart failure) Acute hyperkalemia Shortness of breath Accelerated hypertension Atrial fibrillation with RVR Hypertension Elevated troponin I level Chest pain Altered mental status Malaise Anemia in chronic kidney disease Hypoglycemia Neuropathy, lumbosacral (radicular) End stage renal disease on dialysis Tobacco use disorder Gout Major depressive disorder History of stroke Hypothyroidism GERD (gastroesophageal reflux disease) Dilated aortic root Right bundle branch block (RBBB) on electrocardiogram (ECG) Ascites Nephrogenic ascites, gets regular paracentesis Bilateral hydronephrosis Incomplete bladder emptying Chronic anemia Polycystic kidney disease CVA (cerebral vascular accident) Hypertension Surgical History AV fistula left arm S/P hemodialysis catheter insertion (03/13/20) 23cm long exchanged right IJ Removed on 06/11/2020 History of colonoscopy 2019 at [facility] History of surgical procedure Peritoneal dialysis catheter placement by Dr. Kamara 2015 Family History Mother Chronic kidney disease (CKD) Stroke Father Cancer lung Brother Hypertension Other End stage renal disease on dialysis Denies family history of Diabetes CAD (coronary artery disease) Clotting disorder Dementia Hyperlipidemia Psychiatric illness Anesthesia complication Bleeding disorder Lung disease Social History Smoking and tobacco/nicotine status: former use of tobacco/nicotine Quit status (tobacco/nicotine): has quit using Alcohol intake: never Substance/Drug Use: current Substance/Drug use frequency: few times a week Marital status: Number of children: 1 Current occupational status: disabled Current gender identity: Male Agree to transfusion: Yes Physical Exam 2 Const: COMMON NORMALS: patient oriented x3 HENMT: COMMON NORMALS: normocephalic and atraumatic HEAD & SCALP: n ormocephalic and atraumatic Eye: COMMON NORMALS: Equal, round and reactive pupils present and EOMs intact bilaterally PUPIL: Yes Equal, round and reactive pupils present Neck/C-Spine: COMMON NORMALS: full ROM and supple Chest: COMMONS NORMALS: normal inspection of the chest and normal palpation of entire chest wall Resp: COMMON NORMALS: normal respiratory effort, No retractions, No use of accessory muscles and clear to auscultation bilaterally AUSCULTATION: clear to auscultation bilaterally Cardio: COMMON NORMALS: regular rate, regular rhythm and No murmurs present (Cardio) RATE: regular rate RHYTHM: regular rhythm GI: COMMON NORMALS: Soft to palpation, non-tender and no masses PALPATION: Yes Soft to palpation OTHER: abdominal distension Extremity: COMMON NORMALS: normal to inspection and full ROM Neuro: COMMON NORMALS: patient oriented x3, moves all extremities and no focal motor deficits Psych: COMMON NORMALS: mental status grossly normal, Normal thought process present and cooperative THOUGHT PROCESS: Normal thought process present Skin: COMMON NORMALS: no rashes or lesions noted and no wounds GENERAL SKIN EXAM: no rashes or lesions noted Course 2 Vital Signs: Vital signs: Vital Signs Temperature 97.8 F 04/28/23 07:59 Pulse Rate 79 04/28/23 10:04 Respiratory Rate 22 H 04/28/23 10:04 Blood Pressure 127/73 04/28/23 10:04 Pulse Oximetry 99 12/06/23 10:04 Oxygen Delivery Me thod Nasal Cannula 04/28/23 10:04 Oxygen Flow Rate 3 04/28/23 10:04 MDM - General Adult Medical Decision Making Patient presents here with bradycardia and hypotension from dialysis center his blood pressure here is now 142/74 heart rate 78 we will have him hold his metoprolol blood work here is otherwise normal he had no complaints we will discharge him back to dialysis to receive dialysis he is return if worsening. Medical Records I reviewed the patient's medical records. Lab Data I reviewed the patient's lab results. 04/28/23 07:55 04/28/23 07:55 Laboratory Results WBC 6.46 10^3/uL (3.29-11.43) 04/28/23 07:55 RBC 2.73 10^6/uL (3.85-5.65) L 04/28/23 07:55 Hgb 8.20 g/dL (11.27-16.99) L 04/28/23 07:55 Hct 27.0 % (37-53) L 04/28/23 07:55 MCV 98.9 fl (82-101) 04/28/23 07:55 MCH 30.0 pg (27-33) 04/28/23 07:55 MCHC 30.4 g/dL (30-55) 04/28/23 07:55 RDW 17.8 % (12.1-15.1) H 04/28/23 07:55 Plt Count 212 10^3/cmm (157-399) 04/28/23 07:55 MPV 10.3 fL (7.4-10.4) 04/28/23 07:55 Neut % (Auto) 69.9 % 04/28/23 07:55 Lymph % (Auto) 16.7 % 04/28/23 07:55 [place] % (Auto) 10.7 % 04/28/23 07:55 Eos % (Auto) 2.2 % 04/28/23 07:55 Baso % (Auto) 0.3 % 04/28/23 07:55 Neut # (Auto) 4.52 10^3/uL (1.8-7.7) 04/28/23 07:55 Lymph # (Auto) 1.1 10^3/uL (0.8-4.8) 04/28/23 07:55 [place] # (Auto) 0.7 10^3/uL (0.2-0.9) 04/28/23 07:55 Eos # (Auto) 0.1 10^3/uL (0.0-0.8) 04/28/23 07:55 Baso # (Auto) 0.0 10^3/uL (0.0-0.1) 04/28/23 07:55 Nucleated RBC % (auto) 0 % 04/28/23 07:55 Nucleated RBCs # 0.0 /100WBC 04/28/23 07:55 Sodium 136 mmol/L (136-145) 04/28/23 07:55 Potassium 5.4 mmol/L (3.5-5.1) H 04/28/23 07:55 Chloride 91 mmol/L (98-107) L 04/28/23 07:55 Carbon Dioxide 32 mmol/L (22-29) H 04/28/23 07:55 Anion Gap 18.4 (5-19) 04/28/23 07:55 BUN 66 mg/dL (6-20) H 04/28/23 07:55 Creatinine 4.4 mg/dL (0.7-1.2) H 04/28/23 07:55 GFR Calculation 13.9 mL/min (90-130) L 04/28/23 07:55 Glucose 98 mg/dL (65-115) 04/28/23 07:55 Calculated Osmolality 301 mOsm/kg (285-295) H 04/28/23 07:55 Calcium 10.8 mg/dL (8.5-10.5) H 04/28/23 07:55 Magnesium 2.0 mg/dL (1.7-2.3) 04/28/23 07:55 Total Bilirubin 0.5 mg/dL (0.15-1.2) 04/28/23 07:55 AST 17 U/L (0-40) 04/28/23 07:55 ALT 11 U/L (0-41) 04/28/23 07:55 Alkaline Phosphatase 122 U/L (40-130) 04/28/23 07:55 Total Protein 6.3 g/dL (6.6-8.7) L 04/28/23 07:55 Albumin 3.8 g/dL (3.5-5.2) 04/28/23 07:55 Globulin 2.5 g/dL (1.3-4.6) 04/28/23 07:55 No radiology studies performed this visit EKG Data EKG 1: I personally reviewed and interpreted this EKG as follows: EKG interpretation date: 04/28/23 EKG interpretation time: 08:03 Interpretation: sinus efrain hr [address] elevation qrs 109 qtc 503 Discharge Plan Discharge Patient Disposition: Home Clinical Impression: Bradycardia, End stage renal disease Condition: Stable Prescriptions: Discontinued metoprolol tartrate 50 mg tablet 50 mg PO DAILY No Action allopurinol 100 mg tablet 100 mg PO DAILY sertraline 50 mg tablet 50 mg PO QAM Qty: 90 1RF ondansetron 4 mg tablet,disintegrating 4 mg PO Q8H PRN (Reason: nausea and vomiting) Qty: 90 1RF lactulose 10 gram/15 mL solution See Rx Instructions .ROUTE .COMPLEX Qty: 473 1RF Rx Instructions: TThSaSu; 15 mL orally ON NON DIALYSIS DAYS- WEDNESDAY, WEDNESDAY, WEDNESDAY AND WEDNESDAY hydroxyzine HCl 50 mg tablet 50 mg PO BEDTIME PRN (Reason: Insomnia) Qty: 90 0RF cholecalciferol (vitamin D3) 125 mcg (5,000 unit) capsule 125 mcg PO QAM hydroxyzine HCl 25 mg tablet 25 mg PO QID PRN (Reason: Itching) Qty: 120 4RF levothyroxine 75 mcg tablet 75 mcg PO DAILY 30 Days Qty: 60 2RF cinacalcet 30 mg tablet 30 mg PO QAM clopidogrel 75 mg tablet 75 mg PO QAM Eliquis 5 mg tablet 5 mg PO BID clonidine HCl 0.2 mg tablet 0.1 mg PO BID 30 Days Qty: 60 4RF hydralazine 50 mg tablet 50 mg PO TID 30 Days Qty: 90 0RF atorvastatin 40 mg tablet 40 mg PO BEDTIME amlodipine 10 mg tablet 10 mg PO QAM lisinopril 40 mg tablet 40 mg PO QAM Hold Instructions: Resume on 03/05/23. [place] 8.4 gram powder in packet 8.4 g PO DAILY Auryxia 210 mg iron tablet 2 tab PO TID RenaPlex-D 800 mcg-12.5 mg -2,000 unit tablet 1 tab PO DAILY amiodarone 400 mg tablet 400 mg PO DAILY isosorbide mononitrate 60 mg tablet extended release 24 hr 30 mg PO QAM nitroglycerin 0.4 mg tablet, sublingual 0.4 mg sublingual DIRECTED PRN (Reason: Chest Pain) carvedilol 25 mg tablet 12.5 mg PO BID Discharge Orders: Discharge ED (Routine); Ordered 04/28/23 Ordered By: Ghada Fontanez Referrals: Randolph Ortiz MD [Primary Care Provider] - 1-3 days Discharge Diet: Advance as tolerated Discharge Activity: Resume usual activity Patient Instructions: Bradycardia (ED) Coding Level of Care Code ED Choker Setter for Eric Sandhu
--- NOTE | 2023-04-28 08:03 | ECG_ITS ---
[facility] Test Date: 2023-04-28 Pat Name: Navneet Savage Department: Room: Gender: Male Inspector [employer] Train: : 1965 Requested By: Ghada Fontanez Order Number: [id number] Nate MD: Saurabh Fitzpatrick M.D. Measurements Intervals [place] Rate: 48 P: 88 MT: 218 QRS: -51 QRSD: 109 T: -60 QT: 537 QTc: 481 Interpretive Statements SINUS BRADYCARDIA WITH FIRST DEGREE AV BLOCK LEFT ANTERIOR FASCICULAR BLOCK [QRS AXIS <= -45, QR IN I, RS IN II] ST DEVIATION AND MODERATE T-WAVE ABNORMALITY, CONSIDER LATERAL ISCHEMIA [-0.1+ mV T-WAVE IN I/aVL/V5/V6] ST DEVIATION AND MODERATE T-WAVE ABNORMALITY, CONSIDER INFERIOR ISCHEMIA [-0.1+ mV T-WAVE IN II/aVF] Compared to ECG 04/26/2023 14:37:58 Possible ischemia now present T-wave abnormality still present Electronically Signed On 04-28-2023 9:00:52 MEDICAL POLICY SPECIALIST by Saurabh Fitzpatrick M.D. [email or web address]
--- NOTE | 2023-04-28 08:13 | XR_ITS ---
WS: [id number] Portable AP upright chest, 04/28/2023 Clinical Data: weakness Comparison: Portable chest, 03/28/2023 Findings: There are bilateral patchy opacities, more on the left than the right. The heart is enlarge d. No nodules or masses are seen. There is a posterior lateral right rib fracture. Monitor leads are on the chest wall. Impression: 1. Bilateral patchy opacities which could represent pulmonary vascular congestion and/or pneumonia or atelectasis. 2. Cardiomegaly.
[2023-04-28 08:15] LABS: Basophils % 0.3 %; Eosinophils # 0.1 10^3/uL (0.0-0.8); Eosinophils % 2.2 %; Lymphocytes # 1.1 10^3/uL (0.8-4.8); Lymphocytes % 16.7 %; Mean Corpuscular HGB Conc 30.4 g/dL (30-55); Mean Corpuscular Volume 98.9 fl (82-101); Mean Platelet Volume 10.3 fL (7.4-10.4); Monocytes # 0.7 10^3/uL (0.2-0.9); Monocytes % 10.7 %; Neutrophils # 4.52 10^3/uL (1.8-7.7); Neutrophils % 69.9 %; Nucleated Red Blood Cells % 0 %; Platelet Count 212 10^3/cmm (157-399); Red Blood Count 2.73 10^6/uL (3.85-5.65); Red Cell Distribution Width 17.8 % (12.1-15.1); White Blood Count 6.46 10^3/uL (3.29-11.43)
[2023-04-28 08:34] LABS: Alanine Aminotransferase 11 U/L (0-41); Albumin Level 3.8 g/dL (3.5-5.2); Alkaline Phosphatase 122 U/L (40-130); Anion Gap 18.4 (5-19); Aspartate Amino Transferase 17 U/L (0-40); Blood Urea Nitrogen 66 mg/dL (6-20); Calcium 10.8 mg/dL (8.5-10.5); Carbon Dioxide 32 mmol/L (22-29); Chloride 91 mmol/L (98-107); Globulin 2.5 g/dL (1.3-4.6); Glomerular Filtration Rate 13.9 mL/min (90-130); Glucose 98 mg/dL (65-115); Osmolality Calculated 301 mOsm/kg (285-295); Potassium 5.4 mmol/L (3.5-5.1); Sodium 136 mmol/L (136-145); Total Bilirubin 0.5 mg/dL (0.15-1.2); Total Protein 6.3 g/dL (6.6-8.7)
[2023-04-28 08:39] VITALS: BP 96/53; PULSE 75; O2SAT 98
[2023-04-28 08:50] VITALS: BP 122/73; PULSE 75; RESP 18; O2SAT 98
[2023-04-28 09:20] VITALS: BP 115/75; PULSE 77; RESP 17; O2SAT 98
[2023-04-28 10:04] VITALS: BP 127/73; PULSE 79; RESP 22; O2SAT 99
[2023-04-28 10:24] VITALS: BP 115/73; PULSE 78; O2SAT 100
--- NOTE | 2023-04-28 10:25 | PC.NURSE ---
spoke with Babs at [facility] dialysis notified that pt will be transported to their facility for dialysis today.
== END 2023-04-28 10:35 | disposition home or self-care (01) ==
PROVIDERS: Emergency Provider Emergency Medicine; PCP Family Medicine
DX: R00.1 Bradycardia, unspecified (principal); I13.2 Hypertensive heart and chronic kidney disease with heart failure and with stage 5 chronic kidney disease, or end stage renal disease; N18.6 End stage renal disease; I50.9 Heart failure, unspecified; Z99.2 Dependence on renal dialysis; Z86.73 Personal history of transient ischemic attack (TIA), and cerebral infarction without residual deficits
CPT/HCPCS: 71045; 80053; 83735; 85025; 93005; 99285

== ENCOUNTER → 2023-05-04 10:51 | Day surgery (SDC) | payer MEDICARE, MEDICAID, SELFPAY ==
--- NOTE | 2023-05-04 10:56 | US_ITS ---
WS: [id number] ULTRASOUND-GUIDED THERAPEUTIC PARACENTESIS Procedure, risks, and complications have been explained to the patient. Consent is obtained. Utilizing aseptic technique and 1% buffered lidocaine, a small dermatome was made through which a 5 F rench Yueh catheter was inserted. Approximately 3400 ml of red peritoneal fluid was obtained without difficulty. No complications encountered. IMPRESSION: Uncomplicated paracentesis yielding 3400 ml of peritoneal fluid. The peritoneal fluid is mid to dark red consistent with intraperitoneal bleeding. This is a new findi ng since the prior examination. Over the multiple prior paracentesis that of the performed the fluid is typically clear. Patient may need to be evaluated for source of the bleeding. Patient does have la rge renal cysts. Potentially one of these may have ruptured.
[2023-05-04 10:58] VITALS: BP 153/83; PULSE 80; RESP 18; TEMP 36.6; O2SAT 97
[2023-05-04] MEDS: albumin 75 G/300 ML BAG 60 G IV (11:50)
== END ==
PROVIDERS: Radiology Diagnostic Radiology; PCP Family Medicine; Visit Provider Internal Medicine Nephrology
PROC: (CPT 49082; principal; 2023-05-04 12:00)
DX: R18.8 Other ascites (principal)
CPT/HCPCS: 49083; 96365; P9046

== ENCOUNTER 2023-05-11 10:38 | Day surgery (SDC) | payer MEDICARE, MEDICAID, SELFPAY ==
--- NOTE | 2023-05-11 10:44 | US_ITS ---
WS: [id number] ULTRASOUND-GUIDED THERAPEUTIC PARACENTESIS Procedure, risks, and complications have been explained to the patient. Consent is obtained. Utilizing aseptic technique and 1% buffered lidocaine, a small dermatome was made through which a 5 F rench Yueh catheter was inserted. Approximately 3200 ml of light red peritoneal fluid was obtained wi thout difficulty. No complications encountered. IMPRESSION: Uncomplicated paracentesis yielding 3200 ml of peritoneal fluid.
[2023-05-11 10:56] VITALS: BP 146/74; PULSE 86; RESP 18; TEMP 36.7; O2SAT 93
[2023-05-11] MEDS: albumin 75 G/300 ML BAG 300 G IV (11:33)
== END 2023-05-11 12:07 | disposition home or self-care (01) ==
PROVIDERS: Radiology Diagnostic Radiology; PCP Family Medicine; Visit Provider Internal Medicine Nephrology
PROC: (CPT 49082; principal; 2023-05-11 12:00)
DX: R18.8 Other ascites (principal)
CPT/HCPCS: 49083; 96365; P9046

== ENCOUNTER 2023-05-18 10:21 | Day surgery (SDC) | payer MEDICARE, MEDICAID, SELFPAY ==
--- NOTE | 2023-05-18 10:51 | US_ITS ---
WS: [id number] ULTRASOUND-GUIDED PARACENTESIS CLINICAL INFORMATION: ASCITES COMPARISON: None. Procedure Informed consent: The risks, benefits, and alternatives of the procedure were discussed with the lisa ent. Verbal and written consent was obtained. Timeout: A timeout was performed to confirm the correct patient, procedure, and site. Preparation: A suitable skin site was identified. The patient was prepped and draped in usual sterile fashion. Lidocaine 1% was used for local anesthesia. Catheter: 4 [place] One-step Yueh catheter. Side: LEFT lower quadrant. Fluid Volume: 1400 ml Color: Clear yellow DISPOSITION: Discarded safely. Complications: None. Patient disposition: Discharged from the department in stable condition. IMPRESSION: Uncomplicated ultrasound-guided paracentesis. Removal of 1400 cc
[2023-05-18 11:01] VITALS: BP 153/100; PULSE 82; RESP 18; TEMP 36.6; O2SAT 93; BMI 33.2
[2023-05-18] MEDS: albumin 75 G/300 ML BAG 300 G IV (11:56)
== END 2023-05-18 13:15 | disposition home or self-care (01) ==
LOC: GILAB 10:22
PROVIDERS: Radiology Neuroradiology; PCP Family Medicine; Visit Provider Internal Medicine Nephrology
PROC: (CPT 49082; principal; 2023-05-18 12:00)
DX: R18.8 Other ascites (principal)
CPT/HCPCS: 49083; 96365; P9046

== ENCOUNTER 2023-05-25 10:46 | Day surgery (SDC) | payer MEDICARE, MEDICAID, SELFPAY ==
[2023-05-25 10:55] VITALS: BP 136/76; PULSE 82; RESP 18; TEMP 36.8; O2SAT 89; BMI 33.0
--- NOTE | 2023-05-25 11:08 | US_ITS ---
WS: [id number] ULTRASOUND-GUIDED PARACENTESIS CLINICAL INFORMATION: ASCITES COMPARISON: None. Procedure Informed consent: The risks, benefits, and alternatives of the procedure were discussed with the lisa ent. Verbal and written consent was obtained. Timeout: A timeout was performed to confirm the correct patient, procedure, and site. Preparation: A suitable skin site was identified. The patient was prepped and draped in usual sterile fashion. Lidocaine 1% was used for local anesthesia. Catheter: 4 [place] One-step Yueh catheter. Side: LEFT lower quadrant. Fluid Volume: 3600 ml Color: Clear yellow DISPOSITION: Discarded safely. Complications: None. Patient disposition: Discharged from the department in stable condition. IMPRESSION: Uncomplicated ultrasound-guided paracentesis. Removal of 3600 cc
[2023-05-25] MEDS: albumin 75 G/300 ML BAG 60 G IV (12:25)
== END 2023-05-25 13:25 | disposition home or self-care (01) ==
PROVIDERS: Radiology Neuroradiology; PCP Family Medicine; Visit Provider Internal Medicine Nephrology
PROC: (CPT 49082; principal; 2023-05-25 12:00)
DX: R18.8 Other ascites (principal)
CPT/HCPCS: 49083; 96365; P9046

== ENCOUNTER 2023-06-08 10:33 | Day surgery (SDC) | payer MEDICARE, MEDICAID, SELFPAY ==
--- NOTE | 2023-06-08 10:46 | US_ITS ---
WS: [id number] ULTRASOUND-GUIDED PARACENTESIS CLINICAL INFORMATION: ascites COMPARISON: None. Procedure Informed consent: The risks, benefits, and alternatives of the procedure were discussed with the lisa ent. Verbal and written consent was obtained. Timeout: A timeout was performed to confirm the correct patient, procedure, and site. Preparation: A suitable skin site was identified. The patient was prepped and draped in usual sterile fashion. Lidocaine 1% was used for local anesthesia. Catheter: 4 [place] One-step Yueh catheter. Side: LEFT lower quadrant. Fluid Volume: 2400 ml Color: Clear yellow DISPOSITION: Discarded safely. Complications: None. Patient disposition: Discharged from the department in stable condition. IMPRESSION: Uncomplicated ultrasound-guided paracentesis. Removal of 2400 cc
[2023-06-08 10:47] VITALS: BP 161/68; PULSE 69; RESP 20; TEMP 36.1; O2SAT 93; BMI 33.8
[2023-06-08] MEDS: albumin 75 G/300 ML BAG 60 G IV (11:35)
== END 2023-06-08 12:26 | disposition home or self-care (01) ==
LOC: GILAB 10:37
PROVIDERS: Radiology Neuroradiology; PCP Family Medicine; Visit Provider Internal Medicine Nephrology
PROC: (CPT 49082; principal; 2023-06-08 12:00)
DX: R18.8 Other ascites (principal)
CPT/HCPCS: 49083; 96365; P9046

== ENCOUNTER 2023-06-09 09:06 | Inpatient (IN) | payer MEDICARE, MEDICAID, SELFPAY ==
[2023-06-09] VITALS (154 sets, daily range): BP systolic 88–177; BP diastolic 45–105; PULSE 56–139; RESP 11–30; TEMP 35.9–36.8; O2SAT 84–100; BMI 29.7; BMI 34.3
--- NOTE | 2023-06-09 09:22 | XR_ITS ---
WS: [id number] Exam: XR chest 1V portable [id number] Date/Time of Exam: 06/09/2023 9:27 AM Reason For Exam: dyspnea/cough Comparison 04/28/2023. The lungs are fully expanded and clear. The heart is enlarged. Increased pulmonary vascularity. No pl eural effusions or infiltrates. Regional bony elements are intact. The mediastinum is normal in conto ur for technique. Mild rightward tracheal deviation unchanged. IMPRESSION: 1. Cardiac enlargement with increased pulmonary vascularity. 2. No consolidated infiltrates.
--- NOTE | 2023-06-09 09:28 | PC.NURSE ---
PT PRESENTS TO ROOM 13 VIA EMS. EMS STATES MISSED MULTIPLE DIALYSIS APPOINTMENTS AND PRESENTING WITH WIDE QRS COMPLEX. NURSE CONNECTS PATIENT TO CARDIAC LEADS AND IMMEDIATE READ OF SUSTAINED V TACH. SEE CHART FOR SCANNED IMAGE OF RHYTHM. PATIENT MOVED FROM RM 13 TO RM 11. ASHA PRESENT AT TRANSFER. PROVIDER ORDERED: 150 MG AMIODARONE 4 MG VERSED, ONLY GIVING 2 AT THIS TIME. 2 G CALCIUM. ALL MEDS GIVEN. PATIENT SHOCK DELIEVERED AT 0919. PATIENT PULSE RETURNED AT 0920. PATIENT HR STABLE AT 60. PRINCE FRYE GIVEN REPORT AT 0925.
[2023-06-09 09:33] LABS: ABG PCO2 41.5 mmHg (35-45); ABG PH Result 7.42 (7.35-7.45); Alveolar-Arterial Oxygen Gradi 4.7 mmHg (5-10); Arterial Blood Gas Hematocrit 33.6 % (42-52); Base Excess ABG 2.1 mmol/L (-2.0-2.0); Blood Gas Allen Test Pos; Blood Gas Operator Identificat CAK; Blood Gas Sample Site Brachial, right; Blood Gas Sample Type Arterial; Carboxyhemoglobin 2.3 %THgb (0.4-20.1); HCO3 ABG 26.8 mmol/L (22-26); HGB O2 Sat 88.2 % (95-100); Ionized Calcium Level - ABG 1.7 mmol/L (1.1-1.4); Methemoglobin 0.7 % (0.4-1.5); Oxygen Device NC; PO2 ABG 63.5 mmHg (80.0-100.0); Potassium Level - ABG 7.9 mmol/L (3.5-5.0)
[2023-06-09 09:35] LABS: Basophils % 0.5 %; Eosinophils # 0.1 10^3/uL (0.0-0.8); Hematocrit 34.5 % (37-53); Lymphocytes # 0.9 10^3/uL (0.8-4.8); Lymphocytes % 14.7 %; Mean Corpuscular HGB Conc 31.9 g/dL (30-55); Mean Corpuscular Hemoglobin 31.4 pg (27-33); Mean Corpuscular Volume 98.6 fl (82-101); Mean Platelet Volume 11.6 fL (7.4-10.4); Monocytes # 0.8 10^3/uL (0.2-0.9); Monocytes % 12.3 %; Neutrophils # 4.46 10^3/uL (1.8-7.7); Neutrophils % 71.2 %; Nucleated Red Blood Cells % 0 %; Platelet Count 173 10^3/cmm (157-399); Red Cell Distribution Width 18.4 % (12.1-15.1); White Blood Count 6.26 10^3/uL (3.29-11.43)
--- NOTE | 2023-06-09 09:37 | PC.NURSE ---
THIS NURSE TOOK OVER CARE @ [id number]
--- NOTE | 2023-06-09 09:40 | PC.NURSE ---
PER DR. BARRY START AMIODARONE @ 0.5MG/MIN
[2023-06-09] MEDS: amiodarone 50 mg/mL SDV 3 mL 150 MG IVP (09:46)
[2023-06-09] MEDS: calcium chloride 10% Syr 10 mL 2 GM IVP (09:49)
[2023-06-09] MEDS: midazolam 1 mg/mL INJ 2 mL 2 MG IVP (09:50)
--- NOTE | 2023-06-09 09:50 | ECG_ITS ---
[facility] Test Date: 2023-06-09 Pat Name: Navneet Savage Department: Room: ICU12 Gender: Male Divemaster: : 1965 Requested By: Marvin Bennett Order Number: [id number] Nate MD: Gaston Guillaume M.D. Measurements Intervals [place] Rate: 71 P: 0 NM: 0 QRS: -75 QRSD: 168 T: 39 QT: 426 QTc: 464 Interpretive Statements UNCERTAIN REGULAR RHYTHM, possibly sinus with long first-degree AV block RIGHT BUNDLE BRANCH BLOCK [120+ ms QRS DURATION, UPRIGHT V1, 40+ ms S IN I/aVL/V4/V5/V6] LEFT ANTERIOR FASCICULAR BLOCK [QRS AXIS <= -45, QR IN I, RS IN II] SEPTAL MYOCARDIAL INFARCTION , OF INDETERMINATE AGE [40+ ms Q WAVE IN V1/V2] Compared to ECG 04/28/2023 08:03:08 Right bundle-branch block now present Myocardial infarct finding now present Sinus bradycardia no longer present First degree AV block no longer present T-wave abnormality no longer present Possible ischemia no longer present Electronically Signed On 06-09-2023 14:19:51 FOREIGN EXCHANGE POSITION CLERK by Gaston Guillaume M.D. [email or web address]
[2023-06-09 09:54] LABS: Alanine Aminotransferase 12 U/L (0-41); Albumin Level 4.3 g/dL (3.5-5.2); Alkaline Phosphatase 162 U/L (40-130); Anion Gap 27.2 (5-19); Aspartate Amino Transferase 16 U/L (0-40); Calcium 11.8 mg/dL (8.5-10.5); Carbon Dioxide 25 mmol/L (22-29); Chloride 90 mmol/L (98-107); Globulin 3.3 g/dL (1.3-4.6); Glomerular Filtration Rate 8.1 mL/min (90-130); Glucose 109 mg/dL (65-115); Magnesium 2.6 mg/dL (1.7-2.3); Phosphorus 7.4 mg/dL (2.5-4.5); Sodium 134 mmol/L (136-145); Total Bilirubin 0.7 mg/dL (0.15-1.2); Total Protein 7.6 g/dL (6.6-8.7)
--- NOTE | 2023-06-09 09:59 | W.ED.GIBLEED ---
HPI - GI Bleed General: Chief complaint: GI Bleed Stated complaint: Blood in stool Time Seen by Provider: 06/09/23 09:10 Source: patient and EMS Mode of arrival: EMS History of Present Illness: 50-year-old male presents to the emergency room via EMS with a complaint of GI bleed. He has a history of end-stage renal disease he did not get dialysis yesterday he is reporting GI bleeding to EMS. On arrival here patient is in sustained V. tach he was immediately brought to the trauma room his rate was accelerating we had given him some Versed as well as 150 mg IV push amiodarone we did a synchronized cardioversion x 120 J which successfully converted him back to his sinus rhythm he has peaked T waves. Patient was sedated and lethargic when he arrived he was more so after being given the Versed. MD complaint: gross hematochezia Onset (ago): unknown Relieving factors: none Exacerbating factors: none Associated symptoms: Denies abdominal pain, chills, fever(s) or rash Treatments Prior to Arrival: none Review of Systems Const: Denies: fever(s) or chills Card: Denies: chest pain Resp: Denies: dyspnea GI: Denies: abdominal pain : Denies: dysuria, urinary frequency or urinary urgency Musc: Denies: neck pain or back pain Skin/Breast: Denies: rash PFS ED PFSH: Medical History (Updated 06/09/23 @ 11:36 by Marvin Tilley DO) Congestive heart failure Hypertension Hyperkalemia Atrial fibrillation with RVR Hypoxia End stage renal disease on dialysis Unstable angina Acute exacerbation of CHF (congestive heart failure) Acute hyperkalemia Shortness of breath Accelerated hypertension Hypertension Elevated troponin I level Chest pain Altered mental status Malaise Anemia in chronic kidney disease Hypoglycemia Neuropathy, lumbosacral (radicular) End stage renal disease on dialysis Tobacco use disorder Gout Major depressive disorder History of stroke Hypothyroidism GERD (gastroesophageal reflux disease) Dilated aortic root Right bundle branch block (RBBB) on electrocardiogram (ECG) Ascites Nephrogenic ascites, gets regular paracentesis Bilateral hydronephrosis Incomplete bladder emptying Chronic anemia Polycystic kidney disease CVA (cerebral vascular accident) Surgical History AV fistula left arm S/P hemodialysis catheter insertion (03/13/20) 23cm long exchanged right IJ Removed on 06/11/2020 History of colonoscopy 2020 at [facility] History of surgical procedure Peritoneal dialysis catheter placement by Dr. Kamara 2015 Family History Mother Chronic kidney disease (CKD) Stroke Father Cancer lung Brother Hypertension Other End stage renal disease on dialysis Denies family history of Diabetes CAD (coronary artery disease) Clotting disorder Dementia Hyperlipidemia Psychiatric illness Anesthesia complication Bleeding disorder Lung disease Social History Smoking and tobacco/nicotine status: former use of tobacco/nicotine Quit status (tobacco/nicotine): has quit using Alcohol intake: never Substance/Drug Use: current Substance/Drug use frequency: few times a week Marital status: Number of children: 1 Current occupational status: disabled Current gender identity: Male Agree to transfusion: Yes Physical Exam Const: GENERAL APPEARANCE: lethargic ORIENTATION/CONSCIOUSNESS: Yes lethargic HENMT: COMMON NORMALS: normocephalic and atraumatic HEAD & SCALP: normocephalic and atraumatic Resp: COMMON NORMALS: normal respiratory effort, No retractions, No use of accessory muscles and clear to auscultation bilaterally AUSCULTATION: clear to auscultation bilaterally Cardio: COMMON NORMALS: No murmurs present (Cardio) RATE: tachycardic RHYTHM: abnormal rhythm GI: COMMON NORMALS: Soft to palpation and No hepatosplenomegaly present INSPECTION: Yes abdominal distension AUSCULTATION: Yes normoactive bowel sounds PALPATION: Yes Soft to palpation, No Tenderness to palpation present (GI), No Guarding due to palpation present (GI) and Yes No hepatosplenomegaly present Extremity: COMMON NORMALS: normal to inspection, capillary refill normal, no clubbing, cyanosis or edema, no calf tenderness and no pedal edema Neuro: SENSORIUM/ORIENTATION: Yes lethargic Skin: COMMON NORMALS: no rashes or lesions noted GENERAL SKIN EXAM: no rashes or lesions noted Course Vital Signs: Vital signs: Vital Signs Temperature 96.6 F L 06/09/23 11:20 Pulse Rate 73 06/09/23 11:15 Respiratory Rate 22 H 06/09/23 11:15 Blood Pressure 163/89 06/09/23 11:20 Pulse Oximetry 100 06/09/23 11:15 Oxygen Delivery Me thod Nasal Cannula 06/09/23 11:15 Oxygen Flow Rate 4 06/09/23 09:23 MDM - GI Bleed Medical Decision Making Patient arrives in sustained V. tach he was cardioverted shortly after arrival we did try to decrease sedate however due to accelerating rate and was synchronized cardioversion at 120 shortly after given the Versed. He did convert to normal sinus rhythm I suspect that he had significantly peaked T waves we given him calcium gluconate and amiodarone already blood gas came back with significant hyperkalemia further hyperkalemia treatments were given serum confirmed hyperkalemia. His arrhythmia is secondary to hyperkalemia from missing his dialysis yesterday sodium bicarb Kayexalate glucose and insulin albuterol and calcium gluconate all given. Discussed with hospitalist for expedited admission for dialysis. Dr. Sinha will complete workup. CT will likely need to be evaluated for his GI bleed. His hemoglobin is actually improved from previous evaluations. Orders written have also talked to the manager project to is aware and will get his dialysis arranged for his symptoms. Medical Records I reviewed the patient's medical records. Lab Data I reviewed the patient's lab results. 06/09/23 09:28 06/09/23 09:28 Laboratory Results WBC 6.26 10^3/uL (3.29-11.43) 06/09/23 09:28 RBC 3.50 10^6/uL (3.85-5.65) L 06/09/23 09:28 Hgb 11.00 g/dL (11.27-16.99) L 06/09/23 09:28 Hct 34.5 % (37-53) L 06/09/23 09:28 MCV 98.6 fl (82-101) 06/09/23 09:28 MCH 31.4 pg (27-33) 06/09/23 09: MCHC 31.9 g/dL (30-55) 06/09/23 09:28 RDW 18.4 % (12.1-15.1) H 06/09/23 09:28 Plt Count 173 10^3/cmm (157-399) 06/09/23 09:28 MPV 11.6 fL (7.4-10.4) H 06/09/23 09:28 Neut % (Auto) 71.2 % 06/09/23 09:28 Lymph % (Auto) 14.7 % 06/09/23 09:28 [place] % (Auto) 12.3 % 06/09/23 09:28 Eos % (Auto) 1.0 % 06/09/23 09:28 Baso % (Auto) 0.5 % 06/09/23 09:28 Neut # (Auto) 4.46 10^3/uL (1.8-7.7) 06/09/23 09:28 Lymph # (Auto) 0.9 10^3/uL (0.8-4.8) 06/09/23 09:28 [place] # (Auto) 0.8 10^3/uL (0.2-0.9) 06/09/23 09: Eos # (Auto) 0.1 10^3/uL (0.0-0.8) 06/09/23 09: Baso # (Auto) 0.0 10^3/uL (0.0-0.1) 06/09/23 09:28 Nucleated RBC % (auto) 0 % 06/09/23 09: Nucleated RBCs # 0.0 /100WBC 06/09/23 09:28 PT 14.80 SECONDS (12.1-14.9) 06/09/23 09:20 INR 1.12 (0.8-1.2) 06/09/23 09:20 APTT 38.4 SECONDS (23.9-36.7) H 06/09/23 09:20 Specimen Type Arterial 06/09/23 09:22 Sample Site Brachial, right 06/09/23 09:22 ABG pH 7.42 (7.35-7.45) 06/09/23 09:22 ABG pCO2 41.5 mmHg (35-45) 06/09/23 09:22 ABG pO2 63.5 mmHg (80.0-100.0) L 06/09/23 09:22 ABG HCO3 26.8 mmol/L (22-26) H 06/09/23 09:22 ABG O2 Saturation 91.0 06/09/23 09:22 ABG Base Excess 2.1 mmol/L (-2.0-2.0) H 06/09/23 09:22 Denis Test Pos 06/09/23 09:22 A-a O2 Gradient 4.7 mmHg (5-10) L 06/09/23 09:22 Hematocrit 33.6 % (42-52) L 06/09/23 09:22 Hgb O2 Saturation 88.2 % (95-100) L 06/09/23 09:22 Carboxyhemoglobin 2.3 %THgb (0.4-20.1) 06/09/23 09:22 Methemoglobin 0.7 % (0.4-1.5) 06/09/23 09:22 Total Hemoglobin 11.0 g/dL (14-18) L 06/09/23 09:22 Sodium 136.0 mmol/L (131-143) 06/09/23 09:22 Potassium 7.9 mmol/L (3.5-5.0) H 06/09/23 09:22 Glucose 100.0 mg/dL (70-115) 06/09/23 09:22 Ionized Calcium 1.7 mmol/L (1.1-1.4) H 06/09/23 09:22 O2 Delivery Device Nc 06/09/23 09:22 O2 Liters/Min 6.0 % 06/09/23 09:22 Sheet Cutting Operator ID Cak 06/09/23 09:22 Sodium 134 mmol/L (136-145) L 06/09/23 09:28 Sodium Cancelled 06/09/23 09:28 Potassium 8.2 mmol/L (3.5-5.1) H* 06/09/23 09:28 Potassium Cancelled 06/09/23 09:28 Chloride 90 mmol/L (98-107) L 06/09/23 09:28 Chloride Cancelled 06/09/23 09:28 Carbon Dioxide 25 mmol/L (22-29) 06/09/23 09:28 Carbon Dioxide Cancelled 06/09/23 09:28 Anion Gap 27.2 (5-19) H 06/09/23 09:28 Anion Gap Cancelled 06/09/23 09:28 BUN 136 mg/dL (6-20) H* D 06/09/23 09:28 BUN Cancelled 06/09/23 09:28 Creatinine 7.0 mg/dL (0.7-1.2) H* 06/09/23 09:28 Creatinine Cancelled 06/09/23 09:28 GFR Calculation 8.1 mL/min (90-130) L 06/09/23 09:28 GFR Calculation Cancelled 06/09/23 09:28 Glucose 109 mg/dL (65-115) 06/09/23 09:28 Glucose Cancelled 06/09/23 09:28 POC Glucose 169 mg/dL (70-110) H 06/09/23 10:23 Calculated Osmolality 323 mOsm/kg (285-295) H 06/09/23 09:28 Calculated Osmolality Cancelled 06/09/23 09:28 Calcium 11.8 mg/dL (8.5-10.5) H 06/09/23 09:28 Calcium Cancelled 06/09/23 09:28 Phosphorus 7.4 mg/dL (2.5-4.5) H 06/09/23 09:28 Magnesium 2.6 mg/dL (1.7-2.3) H 06/09/23 09:28 Total Bilirubin 0.7 mg/dL (0.15-1.2) 06/09/23 09:28 Total Bilirubin Cancelled 06/09/23 09:28 AST 16 U/L (0-40) 06/09/23 09:28 AST Cancelled 06/09/23 09:28 ALT 12 U/L (0-41) 06/09/23 09:28 ALT Cancelled 06/09/23 09:28 Alkaline Phosphatase 162 U/L (40-130) H 06/09/23 09:28 Alkaline Phosphatase Cancelled 06/09/23 09:28 Total Protein 7.6 g/dL (6.6-8.7) 06/09/23 09:28 Total Protein Cancelled 06/09/23 09:28 Albumin 4.3 g/dL (3.5-5.2) 06/09/23 09:28 Albumin Cancelled 06/09/23 09:28 Globulin 3.3 g/dL (1.3-4.6) 06/09/23 09:28 Globulin Cancelled 06/09/23 09:28 All radiology interpretation(s) finalized by discharge Critical Care Time Critical Care Time: Critical Care Time: Yes Total Critical Care Time: 40 Attestation: The high probability of a clinically significant, sudden or life threatening deterioration of the patient's cardiovascular renal endocrine system(s) required my full and direct attention, intervention and personal management. The critical care time is as shown. This time is in addition to time spent performing any reported procedures but includes the following: [x] Data and vital sign review and interpretation [x] Patient assessment, examination and intervention [x] Documentation [x] Medication orders and management Discharge Plan Discharge Patient Disposition: Admitted As Inpatient Admit Provider: James Sena Clinical Impression: Acute hyperkalemia, Congestive heart failure, End stage renal disease, Hypertension, Ascites, Sustained VT (ventricular tachycardia) Condition: Stable Coding Level of Care Code ED [employer] Presser for Eric Sandhu
[2023-06-09] MEDS: insulin regular-human 100 units/1 mL 15 UNIT IVP (10:00)
[2023-06-09 10:01] LABS: Glucose Point of Care 98 mg/dL (70-110)
[2023-06-09 10:01] LABS: INR 1.12 (0.8-1.2)
[2023-06-09 10:02] LABS: Partial Thromboplastin Time 38.4 SECONDS (23.9-36.7)
[2023-06-09 10:02] LABS: Blood Urea Nitrogen 136 mg/dL (6-20); Osmolality Calculated 323 mOsm/kg (285-295); Potassium 8.2 mmol/L (3.5-5.1)
--- NOTE | 2023-06-09 10:24 | PC.PHAR ---
unable to verify medications with pt-pt brought med bottles in-pt brought in amiodarone 400mg daily rx bottle dated 01/04/23,05/11/23-cinacalcet 30mg qam 04/20/23-clonidine 0.2mg take 0.1mg bid dated 04/21/23 90d/s-hydralazine 50mg tid rx bottle dated 03/26/2022 [facility] 01/03/23 30d/s-hydroxyzine hcl 25mg qid prn dated 02/26/23 [facility] 05/21/23 30d/s 25mg tid prn-imdur er 60mg take 30mg qam rx bottle dated 01/14/23 30d/s-lactulose 15ml on non dialysis days rx bottle dated 05/06/23 bottle was empty-lisinopril 40mg qam rx bottle dated 03/12/23 90d/j-zfwvfdbc-y 1 tab daily rx bottle dated 05/10/23-previously entered med list had amlodipine 10mg qam last filled 01/11/23 30d/s,atorvastatin 40mg hs filled 01/11/23 30d/s,clopidogrel 75mg qam filled 12/31/22 30d/s,eliquis 5mg bid filled 01/04/23 30d/s no bottles were brought in for those medications deleted out of med rec since not filled recently and no rx bottles-entered auryxia filled 05/14/23 90d/s,[place] 8.4g filled 03/02/23 90d/s,sertraline 50mg qam filled 04/01/23 90d/s,zofran odt 4mg filled 04/01/23 30d/s,levothyroxine 75mcg filled 03/22/23 90d/s,hydroxyzine hcl 50mg hs prn filled 04/01/23 90d/s bottles also not brought in but have been filled recently-notes are made in the pharmacy comments
[2023-06-09] MEDS: sodium bicarbonate 150 MEQ in dextrose 5% 1,000 ML IV (10:31)
[2023-06-09] MEDS: sodium bicarbonate 8.4% 1 mEq/mL 50mL Syr 100 MEQ IVP (10:38)
--- NOTE | 2023-06-09 10:40 | PM.HP ---
Documented by User: Florin Sextonessence 06/09/23 11:27 Providers/Chief Complaint Admitting Physician: James Sena MD Primary Care Provider: Randolph Ortiz MD Chief Complaint: Blood in stool History of Present Illness Patient is a 58-year-old male with a past medical history of A-fib, ESRD, CHF, hypertension, CVA, hypothyroidism, GERD, VT who presents the emergency room with bloody stool. Patient was at nearby dialysis clinic today for his normal MWF hemodialysis treatment. Patient has not received dialysis since 06/04/2023. States he skipped on Wednesday due to not feeling well. Patient reported to nursing staff that he was having a bowel movement and noticed bloody red stool. Nursing staff at clinic called EMS. Patient was transferred to [facility] for further evaluation. No medications or interventions were given en route though EMS staff reported a wide-complex tachycardia with a rate of 143. Patient received Versed while in emergency room and is a poor historian during exam/HPI. While in the emergency room, laboratory studies and radiology imaging were performed. ER nursing staff placed patient on telemetry and was noted to be in ventricular tachycardia. Patient was given calcium gluconate, Versed, Zofran, amiodarone bolus, amiodarone drip, Kayexalate, 1 amp sodium bicarb, and 15 units IV insulin. Patient was also defibrillated at 150 J and was converted back to normal sinus rhythm with a first-degree AV block. RBC 3.5, hemoglobin 11, PTT 38.4, sodium 134, potassium 8.2, chloride 90, anion gap 27.2, BUN 136, creatinine 7, calculated osmolality 323, phosphorus 7.4, magnesium 2.6, alk phos 162. Due to concerns for hyperkalemia, ESRD, V. tach, and GI bleed, patient will be admitted to the hospital for further medical management of Hyperkalemia, ESRD, V Tach, GI Bleed, requiring dialysis and IV medication. Review of Systems Narrative: Comprehensive 10 point ROS is negative except as noted in the HPI above. Medications/Allergies Home Medications Medication Instructions Recorded Confirmed Last Taken Type cholecalciferol (vitamin D3) 125 125 mcg PO QAM 06/18/22 06/09/23 06/07/23 History mcg (5,000 unit) capsule isosorbide mononitrate 60 mg 30 mg PO QAM 02/08/23 06/09/23 06/07/23 History tablet,extended release 24 hr levothyroxine 75 mcg tablet 75 mcg PO DAILY 30 days #60 tabs 02/26/23 06/09/23 06/07/23 Rx carvedilol 25 mg tablet 12.5 mg PO BID 03/22/23 06/09/23 06/07/23 History ondansetron 4 mg disintegrating 4 mg PO Q8H PRN nausea and 04/01/23 06/09/23 06/07/23 Rx tablet vomiting #90 tabs amiodarone 400 mg tablet 400 mg PO DAILY #90 tabs 05/21/23 06/09/23 06/07/23 Rx cinacalcet 30 mg tablet 30 mg PO QAM #90 tabs 05/21/23 06/09/23 06/07/23 Rx clonidine HCl 0.2 mg tablet 0.1 mg (1/2 x 0.2 mg) PO BID 30 05/21/23 06/09/23 06/07/23 Rx days #180 tabs hydralazine 50 mg tablet 50 mg PO TID 90 days #270 tabs 05/21/23 06/09/23 06/07/23 Rx lactulose 10 gram/15 mL oral See Rx Instructions .Route 05/21/23 06/09/23 06/07/23 Rx solution .COMPLEX #473 mL lisinopril 40 mg tablet 40 mg PO QAM #90 tabs 05/21/23 06/09/23 06/07/23 Rx sertraline 50 mg tablet 50 mg PO QAM #90 tabs 05/21/23 06/09/23 06/07/23 Rx vit B,C-folic ac 800 mcg-zinc 12.5 1 tab PO DAILY #90 tabs 05/21/23 06/09/23 06/07/23 Rx mg-selen-D3 2,000 unit-vit E tablet (RenaPlex-D) hydroxyzine HCl 25 mg tablet 25 mg PO TID PRN Insomnia #90 tabs 05/30/23 06/09/23 06/07/23 Rx ferric citrate 210 mg iron tablet See Rx Instructions .Route .COMPLEX 06/09/23 06/09/23 Unknown History (Auryxia) hydroxyzine HCl 50 mg tablet 50 mg PO BEDTIME PRN Sleep 06/09/23 06/09/23 Unknown History lidocaine 4 % topical cream 1 applic topical QID PRN Pain 06/09/23 06/09/23 Unknown History nitroglycerin 0.4 mg sublingual 0.4 mg sublingual Q5M PRN Chest 06/09/23 06/09/23 Unknown History tablet (Nitrostat) Pain patiromer calcium sorbitex 8.4 See Rx Instructions .Route .COMPLEX 06/09/23 06/09/23 Unknown History gram oral powder packet (Veltassa) Allergies Allergy/AdvReac Type Severity Reaction Status Date / Time Penicillins Allergy ALGY-Anaphy Verified 06/08/23 11:33 laxis Sulfa (Sulfonamide Allergy Unknown Verified 06/08/23 11:33 Antibiotics) fluoxetine [From Prozac] AdvReac Mild stomach Verified 06/08/23 11:33 upset PFSH Acute PFSH: Medical History Congestive heart failure Hypertension Hyperkalemia Atrial fibrillation with RVR Hypoxia End stage renal disease on dialysis Unstable angina Acute exacerbation of CHF (congestive heart failure) Acute hyperkalemia Shortness of breath Accelerated hypertension Hypertension Elevated troponin I level Chest pain Altered mental status Malaise Anemia in chronic kidney disease Hypoglycemia Neuropathy, lumbosacral (radicular) End stage renal disease on dialysis Tobacco use disorder Gout Major depressive disorder History of stroke Hypothyroidism GERD (gastroesophageal reflux disease) Dilated aortic root Right bundle branch block (RBBB) on electrocardiogram (ECG) Ascites Nephrogenic ascites, gets regular paracentesis Bilateral hydronephrosis Incomplete bladder emptying Chronic anemia Polycystic kidney disease CVA (cerebral vascular accident) Surgical History AV fistula left arm S/P hemodialysis catheter insertion (03/13/20) 23cm long exchanged right IJ Removed on 06/11/2020 History of colonoscopy [address] [facility] History of surgical procedure Peritoneal dialysis catheter placement by Dr. Kamara 2015 Family History Mother Chronic kidney disease (CKD) Stroke Father Cancer lung Brother Hypertension Other End stage renal disease on dialysis Denies family history of Diabetes CAD (coronary artery disease) Clotting disorder Dementia Hyperlipidemia Psychiatric illness Anesthesia complication Bleeding disorder Lung disease Social History Smoking and tobacco/nicotine status: former use of tobacco/nicotine Quit status (tobacco/nicotine): has quit using Alcohol intake: never Substance/Drug Use: current Substance/Drug use frequency: few times a week Marital status: Number of children: 1 Current occupational status: disabled Current gender identity: Male Agree to transfusion: Yes Vitals/I&O/Wt Last Vital Signs Temp 98.2 F 06/09/23 09:23 Pulse 76 06/09/23 10:05 Resp 25 H 06/09/23 10:05 BP 134/98 06/09/23 10:05 Pulse Ox 92 06/09/23 10:05 O2 Del Method Nasal Cannula 06/09/23 09:23 O2 Flow Rate 4 06/09/23 09:23 06/08/23 06/09/23 06/09/23 22:59 06:59 14:59 Intake Total 2.222 / 2.222 Balance 2.222 / 2.222 Weight last 48 hrs Weight 86.183 kg Physical Exam Narrative: General: Sedated though able to wake with verbal stimuli, AO x3, NC oxygen supplementation 6L/NC, chronically sick appearing HEENT: PERRLA, pupils bilaterally equal and reactive, red conjunctiva Lymph: No lymphadenopathy noted Chest: Coarse lungs throughout. Even chest rise. On nasal cannula. Cardiac: S1-S2 regular, 2/4 grade murmur, no tachycardia, no rubs, Abdomen: Soft, nontender, no organomegaly, bowel sounds present, morbidly obese Neuro: No focal deficits, no facial deformity, AO x3, power 5/5 in all limbs Data 06/09/23 09:28 06/09/23 09:28 Other Labs: RBC 3.5, hemoglobin 11, potassium 8.2, sodium 134, anion gap 27.2, BUN 136, creatinine 7, calculated Osmo 323, calcium 11.8, ionized calcium 1.7, phosphorus 7.4, magnesium 2.6, alk phos 162. CXR: My impression: Per my interpretation, slight cardiomegaly with no infiltrates noted. Radiologist's impression: IMPRESSION: 1. Cardiac enlargement with increased pulmonary vascularity. 2. No consolidated infiltrates. EKG 1: My Interpretation: EMS EKG: V Tach Wide complex rate 143. EKG 2: My Interpretation: Post Defib EKG: Sinus bradycardia with first-degree AV block. Right bundle branch block noted in V1 and V2. EKG computer-generated impression: Uncertain regular rhythm, right bundle branch block, left anterior block ABG Interpretation 1: 06/09/23 09:22 ABG pH 7.42 ABG pCO2 41.5 ABG pO2 63.5 L ABG HCO3 26.8 H ABG O2 Saturation 91.0 ABG Base Excess 2.1 H A&P Assessment and plan (1) End stage renal disease: Patient with known history of end-stage renal disease presents with GI bleed and laboratory studies found significant high BUN and creatinine. Patient reports that he was unable to go to Wednesday dialysis visit as he felt ill. Last treatment was on 06/04/2023. Emergent hemo-dialysis treatment to be performed stat. Fistula noted to upper extremity. Nephrology consult. Blood cultures were performed while the emergency room. Pending results. N.p.o. at this time. (2) Hyperkalemia: Initial potassium level noted to be 8.2. This is most likely due to missed hemodialysis treatment from Wednesday. Calcium gluconate was given for cardiac stabilization. Patient was given 15 units IV insulin and an amp of D50 while in emergency room. Repeat BMP this afternoon. CBC, CMP,, mag in AM. (3) Ventricular tachycardia: I likely think this is due to #2, hyperkalemia causing severe cardiac dysrhythmias. Per EMS EKG as well as telemetry in emergency room, patient's rhythm was noted to be ventricular tachycardia. Patient received calcium gluconate for cardiac stabilization. Patient also received Versed for sedation and was defibrillated while in the emergency room. Patient rhythm is sinus bradycardia with a first-degree AV block post defibrillation. Patient was given amiodarone IV bolus and placed on amiodarone drip. We will continue amiodarone drip per protocol. Cardiology consultation. Will perform echocardiogram, last performed on 02/20/2023 Echo report: LVEF 55 to 60%, left atrial dilation, mild mitral regurgitation, mild mitral stenosis, mild aortic stenosis, mild tricuspid regurg, ascending aorta is mildly dilated. Continue to monitor for any cardiac dysrhythmias. Telemetry. (4) GI bleed: Patient states bloody stools while at hemodialysis clinic. H&H stable at this time. No signs or symptoms of anemia at this time. Patient noted to have external hemorrhoids and excoriation on rectal exam. Eliquis was recently stopped at PCP clinic. Unknown as to why. Will add pantoprazole for GI prophylaxis. (5) Hypothyroidism: Currently on levothyroxine. Will resume home medication (6) Hypertension: Noted to be on antihypertensive medication. Stable at this time. We will resume antihypertensive medications. (7) Congestive heart failure: Stable at this time. No shortness of breath or significant peripheral edema. Echocardiogram explained in #3. Plan Plan as stated above. We will proceed with hemodialysis stat treatment for elevated kidney function as well as hyperkalemia. Patient will remain in ICU. Will continue amiodarone drip. CODE STATUS: Full code DVT prophylaxis: SCDs. Coding Level of Care Code Critical Care >/= 30 minutes Diagnoses End stage renal disease N18.6 Hyperkalemia E87.5 Ventricular tachycardia I47.20 GI bleed K92.2 Hypothyroidism E03.9 Hypertension, unspecified type I10 Congestive heart failure I50.9 Documented by User: James Sena MD 06/09/23 11:42 Providers/Chief Complaint Chief Complaint: Blood in stool Medications/Allergies Home Medications Medication Instructions Recorded Confirmed Last Taken Type cholecalciferol (vitamin D3) 125 125 mcg PO QAM 06/18/22 06/09/23 06/07/23 History mcg (5,000 unit) capsule isosorbide mononitrate 60 mg 30 mg PO QAM 02/08/23 06/09/23 06/07/23 History tablet,extended release 24 hr levothyroxine 75 mcg tablet 75 mcg PO DAILY 30 days #60 tabs 02/26/23 06/09/23 06/07/23 Rx carvedilol 25 mg tablet 12.5 mg PO BID 03/22/23 06/09/23 06/07/23 History ondansetron 4 mg disintegrating 4 mg PO Q8H PRN nausea and 04/01/23 06/09/23 06/07/23 Rx tablet vomiting #90 tabs amiodarone 400 mg tablet 400 mg PO DAILY #90 tabs 05/21/23 06/09/23 06/07/23 Rx cinacalcet 30 mg tablet 30 mg PO QAM #90 tabs 05/21/23 06/09/23 06/07/23 Rx clonidine HCl 0.2 mg tablet 0.1 mg (1/2 x 0.2 mg) PO BID 30 05/21/23 06/09/23 06/07/23 Rx days #180 tabs hydralazine 50 mg tablet 50 mg PO TID 90 days #270 tabs 05/21/23 06/09/23 06/07/23 Rx lactulose 10 gram/15 mL oral See Rx Instructions .Route 05/21/23 06/09/23 06/07/23 Rx solution .COMPLEX #473 mL lisinopril 40 mg tablet 40 mg PO QAM #90 tabs 05/21/23 06/09/23 06/07/23 Rx sertraline 50 mg tablet 50 mg PO QAM #90 tabs 05/21/23 06/09/23 06/07/23 Rx vit B,C-folic ac 800 mcg-zinc 12.5 1 tab PO DAILY #90 tabs 05/21/23 06/09/23 06/07/23 Rx mg-selen-D3 2,000 unit-vit E tablet (RenaPlex-D) hydroxyzine HCl 25 mg tablet 25 mg PO TID PRN Insomnia #90 tabs 05/30/23 06/09/23 06/07/23 Rx ferric citrate 210 mg iron tablet See Rx Instructions .Route .COMPLEX 06/09/23 06/09/23 Unknown History (Auryxia) hydroxyzine HCl 50 mg tablet 50 mg PO BEDTIME PRN Sleep 06/09/23 06/09/23 Unknown History lidocaine 4 % topical cream 1 applic topical QID PRN Pain 06/09/23 06/09/23 Unknown History nitroglycerin 0.4 mg sublingual 0.4 mg sublingual Q5M PRN Chest 06/09/23 06/09/23 Unknown History tablet (Nitrostat) Pain patiromer calcium sorbitex 8.4 See Rx Instructions .Route .COMPLEX 06/09/23 06/09/23 Unknown History gram oral powder packet (Veltassa) Allergies Allergy/AdvReac Type Severity Reaction Status Date / Time Penicillins Allergy ALGY-Anaphy Verified 06/08/23 11:33 laxis Sulfa (Sulfonamide Allergy Unknown Verified 06/08/23 11:33 Antibiotics) fluoxetine [From Prozac] AdvReac Mild stomach Verified 06/08/23 11:33 upset PFSH Acute PFSH: Medical History Congestive heart failure Hypertension Hyperkalemia Atrial fibrillation with RVR Hypoxia End stage renal disease on dialysis Unstable angina Acute exacerbation of CHF (congestive heart failure) Acute hyperkalemia Shortness of breath Accelerated hypertension Hypertension Elevated troponin I level Chest pain Altered mental status Malaise Anemia in chronic kidney disease Hypoglycemia Neuropathy, lumbosacral (radicular) End stage renal disease on dialysis Tobacco use disorder Gout Major depressive disorder History of stroke Hypothyroidism GERD (gastroesophageal reflux disease) Dilated aortic root Right bundle branch block (RBBB) on electrocardiogram (ECG) Ascites Nephrogenic ascites, gets regular paracentesis Bilateral hydronephrosis Incomplete bladder emptying Chronic anemia Polycystic kidney disease CVA (cerebral vascular accident) Surgical History AV fistula left arm S/P hemodialysis catheter insertion (03/13/20) 23cm long exchanged right IJ Removed on 06/11/2020 History of colonoscopy [address] [facility] History of surgical procedure Peritoneal dialysis catheter placement by Dr. Kamara 2015 Family History Mother Chronic kidney disease (CKD) Stroke Father Cancer lung Brother Hypertension Other End stage renal disease on dialysis Denies family history of Diabetes CAD (coronary artery disease) Clotting disorder Dementia Hyperlipidemia Psychiatric illness Anesthesia complication Bleeding disorder Lung disease Social History Smoking and tobacco/nicotine status: former use of tobacco/nicotine Quit status (tobacco/nicotine): has quit using Alcohol intake: never Substance/Drug Use: current Substance/Drug use frequency: few times a week Marital status: Number of children: 1 Current occupational status: disabled Current gender identity: Male Agree to transfusion: Yes Physical Exam Narrative: General: Sedated though able to wake with verbal stimuli, AO x3, NC oxygen supplementation 6L/NC, chronically sick appearing HEENT: PERRLA, pupils bilaterally equal and reactive, red conjunctiva Lymph: No lymphadenopathy noted Chest: Coarse lungs throughout. Even chest rise. On nasal cannula. Cardiac: S1-S2 regular, 2/4 grade murmur, no tachycardia, no rubs, Abdomen: Soft, nontender, no organomegaly, bowel sounds present, morbidly obese Neuro: No focal deficits, no facial deformity, AO x3, power 5/5 in all limbs External rectal exam demonstrates some dried blood, hemorrhoidal skin tag, some erythema. Data 06/09/23 09:28 06/09/23 09:28 A&P Assessment and plan (1) End stage renal disease: Patient with known history of end-stage renal disease presents with GI bleed and laboratory studies found significant high BUN and creatinine. Patient reports that he was unable to go to Wednesday dialysis visit as he felt ill. Last treatment was on 06/04/2023. Emergent hemo-dialysis treatment to be performed stat. Fistula noted to upper extremity. Nephrology consult. Blood cultures were performed while the emergency room. Pending results. N.p.o. at this time. Expect emergent dialysis (2) Hyperkalemia: Initial potassium level noted to be 8.2. This is most likely due to missed hemodialysis treatment from Wednesday. Calcium gluconate was given for cardiac stabilization. Patient was given 15 units IV insulin and an amp of D50 while in emergency room. Repeat BMP this afternoon. Emergent dialysis CBC, CMP,, mag in AM. Placed on bicarbonate drip by emergency department physician. Hopefully this can be discontinued following dialysis. (3) Ventricular tachycardia: I likely think this is due to #2, hyperkalemia causing severe cardiac dysrhythmias. Per EMS EKG as well as telemetry in emergency room, patient's rhythm was noted to be ventricular tachycardia. Patient received calcium gluconate for cardiac stabilization. Patient also received Versed for sedation and was defibrillated while in the emergency room. Patient rhythm is sinus bradycardia with a first-degree AV block post defibrillation. Patient was given amiodarone IV bolus and placed on amiodarone drip. We will continue amiodarone drip per protocol. As he becomes more alert, and potassium is normalized we will likely reinitiate his oral amiodarone. Arrange for limited echo. Previous echo in January, Echo report: LVEF 55 to 60%, left atrial dilation, mild mitral regurgitation, mild mitral stenosis, mild aortic stenosis, mild tricuspid regurg, ascending aorta is mildly dilated. Continue to monitor for any cardiac dysrhythmias. Telemetry. Has known coronary artery disease with RCA intervention in December 2022 with drug-eluting stents. (4) GI bleed: Patient states bloody stools while at hemodialysis clinic. H&H stable at this time. No signs or symptoms of anemia at this time. Patient noted to have external hemorrhoids and excoriation on rectal exam. Eliquis was recently stopped. Will review with patient as to why. Hold anticoagulation currently and SCDs for DVT prophylaxis Will add pantoprazole for GI prophylaxis. Protonix 40 mg IV twice daily (5) Hypothyroidism: (6) Hypertension: Noted to be on antihypertensive medication. Stable at this time. We will resume antihypertensive medications as appropriate (7) Congestive heart failure: Plan Plan as stated above. We will proceed with hemodialysis stat treatment for elevated kidney function as well as hyperkalemia. Patient will remain in ICU. Will continue amiodarone drip. Hypoxia. May be due to sedation, or fluid overload from her not receiving dialysis. Continue to follow and wean as tolerated History of intermittent paracentesis, with last paracentesis being June 08. CODE STATUS: Full code DVT prophylaxis: SCDs. Attestations Medical Necessity Statement*: Will need greater than 2 midnight stay for evaluation and treatment of ventricular tachycardia Critical Care Time: The high probability of a clinically significant, sudden or life threatening deterioration of the patient's [electrolyte, cardiac, renal] system(s) required my full and direct attention, intervention and personal management. The critical care time is as shown. This time is in addition to time spent performing any reported procedures but includes the following: [x] Data and vital sign review and interpretation [x] Patient assessment, examination and intervention [x] Documentation [x] Medication orders and management Critical Care Time (min): 57 Coding Level of Care Code Critical Care >/= 30 minutes Critical care time (in minutes): 57 The high probability of a clinically significant, sudden or life threatening deterioration, as referenced in this documentation, required my full and direct attention, intervention and personal management. The critical care time shown is in addition to time spent performing any reported separately billable procedures and includes the following: [x] Data and vital sign review and interpretation [x] Patient assessment, examination and intervention [x] Medication orders and management [x] Patient/Family updates as able [x] Care Coordination and Documentation. Diagnoses End stage renal disease N18.6 Hyperkalemia E87.5 Ventricular tachycardia I47.20 GI bleed K92.2 Hypothyroidism E03.9 Hypertension, unspecified type I10 Congestive heart failure I50.9
[2023-06-09] MEDS: dextrose 50% syringe 50 mL IVP (10:42)
[2023-06-09] MEDS: sodium polystyrene sulfonate 15 gm/60 mL Btl 30 GM PO (10:49)
[2023-06-09 11:04] LABS: Glucose Point of Care 169 mg/dL (70-110)
--- NOTE | 2023-06-09 11:10 | P.CONIM_ITS ---
Providers/Reason For Consult 2 Consulting Physician/Specialty*: kommana/nephrology Reason for Consult*: esrd hyperkalemia Attending Physician: James Sena MD Primary Care Provider: Randolph Ortiz MD History of Present Illness History of Present Illness Navneet Savage is a 58 year old male Patient is a 58-year-old male with multiple medical problems including atrial fibrillation, end-stage renal disease on dialysis, CHF hypertension, history of CVA hypothyroidism GERD. Patient missed dialysis on Wednesday. Patient was sent to the ED today due to bloody stools and EMS was called. Patient was noted to be tachycardic in the ED lab data significant for hemoglobin of 11 potassium of 8.2 creatinine of 7. EKG showed wide-complex tachycardia. Review of Systems 2 Narrative: other ros negative Medications/Allergies Home Medications Medication Instructions Recorded Confirmed Last Taken Type cholecalciferol (vitamin D3) 125 125 mcg PO QAM 06/18/22 06/09/23 06/07/23 History mcg (5,000 unit) capsule isosorbide mononitrate 60 mg 30 mg PO QAM 02/08/23 06/09/23 06/07/23 History tablet,extended release 24 hr levothyroxine 75 mcg tablet 75 mcg PO DAILY 30 days #60 tabs 02/26/23 06/09/23 06/07/23 Rx carvedilol 25 mg tablet 12.5 mg PO BID 03/22/23 06/09/23 06/07/23 History ondansetron 4 mg disintegrating 4 mg PO Q8H PRN nausea and 04/01/23 06/09/23 06/07/23 Rx tablet vomiting #90 tabs amiodarone 400 mg tablet 400 mg PO DAILY #90 tabs 05/21/23 06/09/23 06/07/23 Rx cinacalcet 30 mg tablet 30 mg PO QAM #90 tabs 05/21/23 06/09/23 06/07/23 Rx clonidine HCl 0.2 mg tablet 0.1 mg (1/2 x 0.2 mg) PO BID 30 05/21/23 06/09/23 06/07/23 Rx days #180 tabs hydralazine 50 mg tablet 50 mg PO TID 90 days #270 tabs 05/21/23 06/09/23 06/07/23 Rx lactulose 10 gram/15 mL oral See Rx Instructions .Route 05/21/23 06/09/23 06/07/23 Rx solution .COMPLEX #473 mL lisinopril 40 mg tablet 40 mg PO QAM #90 tabs 05/21/23 06/09/23 06/07/23 Rx sertraline 50 mg tablet 50 mg PO QAM #90 tabs 05/21/23 06/09/23 06/07/23 Rx vit B,C-folic ac 800 mcg-zinc 12.5 1 tab PO DAILY #90 tabs 05/21/23 06/09/23 06/07/23 Rx mg-selen-D3 2,000 unit-vit E tablet (RenaPlex-D) hydroxyzine HCl 25 mg tablet 25 mg PO TID PRN Insomnia #90 tabs 05/30/23 06/09/23 06/07/23 Rx ferric citrate 210 mg iron tablet See Rx Instructions .Route .COMPLEX 06/09/23 06/09/23 Unknown History (Auryxia) hydroxyzine HCl 50 mg tablet 50 mg PO BEDTIME PRN Sleep 06/09/23 06/09/23 Unknown History lidocaine 4 % topical cream 1 applic topical QID PRN Pain 06/09/23 06/09/23 Unknown History nitroglycerin 0.4 mg sublingual 0.4 mg sublingual Q5M PRN Chest 06/09/23 06/09/23 Unknown History tablet (Nitrostat) Pain patiromer calcium sorbitex 8.4 See Rx Instructions .Route .COMPLEX 06/09/23 06/09/23 Unknown History gram oral powder packet (Veltassa) Allergies Allergy/AdvReac Type Severity Reaction Status Date / Time Penicillins Allergy ALGY-Anaphy Verified 06/08/23 11:33 laxis Sulfa (Sulfonamide Allergy Unknown Verified 06/08/23 11:33 Antibiotics) fluoxetine [From Prozac] AdvReac Mild stomach Verified 06/08/23 11:33 upset Current Medications Generic Name Dose Route Start Last Admin Trade Name Freq PRN Reason Stop Dose Admin Amiodarone HCl/Dextrose 360 mg in 200 mls @ 0 mls/hr 06/09/23 09:23 06/09/23 09:41 Nexterone IV 0.5 mg/min .Q0M MINNA 16.67 mls/hr Titration Protocol Per Protocol Sodium Bicarbonate 150 meq/ 1,150 mls @ 150 mls/hr 06/09/23 10:15 06/09/23 10:31 Dextrose IV 06/09/23 17:54 150 mls/hr .Q7H40M ONE Administration PFSH Acute 2 PFSH: Medical History (Updated 06/09/23 @ 15:39 by Merly Pak MD) End stage renal disease on dialysis Congestive heart failure Hypertension Hyperkalemia Atrial fibrillation with RVR Hypoxia Unstable angina Acute exacerbation of CHF (congestive heart failure) Acute hyperkalemia Shortness of breath Accelerated hypertension Hypertension Elevated troponin I level Chest pain Altered mental status Malaise Anemia in chronic kidney disease Hypoglycemia Neuropathy, lumbosacral (radicular) End stage renal disease on dialysis Tobacco use disorder Gout Major depressive disorder History of stroke Hypothyroidism GERD (gastroesophageal reflux disease) Dilated aortic root Right bundle branch block (RBBB) on electrocardiogram (ECG) Ascites Nephrogenic ascites, gets regular paracentesis Bilateral hydronephrosis Incomplete bladder emptying Chronic anemia Polycystic kidney disease CVA (cerebral vascular accident) Surgical History AV fistula left arm S/P hemodialysis catheter insertion (03/13/20) 23cm long exchanged right IJ Removed on 06/11/2020 History of colonoscopy 2019 at [facility] History of surgical procedure Peritoneal dialysis catheter placement by Dr. Kamara 2015 Family History Mother Chronic kidney disease (CKD) Stroke Father Cancer lung Brother Hypertension Other End stage renal disease on dialysis Denies family history of Diabetes CAD (coronary artery disease) Clotting disorder Dementia Hyperlipidemia Psychiatric illness Anesthesia complication Bleeding disorder Lung disease Social History Smoking and tobacco/nicotine status: former use of tobacco/nicotine Quit status (tobacco/nicotine): has quit using Alcohol intake: never Substance/Drug Use: current Substance/Drug use frequency: few times a week Marital status: Number of children: 1 Current occupational status: disabled Current gender identity: Male Agree to transfusion: Yes Vitals/I&O/Wt Last Vital Signs Temp 98.2 F 06/09/23 09:23 Pulse 76 06/09/23 10:05 Resp 25 H 06/09/23 10:05 BP 134/98 06/09/23 10:05 Pulse Ox 92 06/09/23 10:05 O2 Del Method Nasal Cannula 06/09/23 09:23 O2 Flow Rate 4 06/09/23 09:23 06/08/23 06/09/23 06/09/23 22:59 06:59 14:59 Intake Total 2.222 / 2.222 Balance 2.222 / 2.222 Weight last 48 hrs Weight 86.183 kg Physical Exam 2 Narrative: lethargic Data 06/09/23 09:28 06/09/23 09:28 A&P Assessment and plan (1) ESRD (end stage renal disease) on dialysis: Plan 1. End-stage renal disease: On MWF schedule as outpatient, missed hemodialysis on Wednesday, now presented with wide-complex tachycardia in the setting of severe hyperkalemia with a potassium of 8.2. -Emergent dialysis, ultrafiltration as tolerated -Placed on low K diet 2. Severe hyperkalemia, HD as above 3. Altered mental status: Likely uremia related, HD as above 4. Anemia: Monitor hemoglobin 5. History of A-fib Patient evaluated using audiovisual cart. Time spent 40 minutes. Consult Attestations 2 Medical Necessity Statement: per mediicne team Coding Level of Care Code Acute Code for Chg Fwd Diagnoses ESRD (end stage renal disease) on dialysis N18.6; Z99.2
[2023-06-09] MEDS: epoetin alfa 1000 Unit/0.05 mL (ESRD) 20000 UNIT IVP (11:31)
[2023-06-09] MEDS: heparin, porcine 1,000 unit/mL INJ 10 mL 10000 UNIT INTRACATH (11:33)
[2023-06-09] MEDS: heparin, porcine 1,000 unit/mL INJ 10 mL 1000 UNIT IV (11:33)
--- NOTE | 2023-06-09 11:34 | USCV_ITS ---
Navneet Savage Age: 58 Gender: M : 1965 Exam Date: 06/09/2023 15:17 Ordering Phys: James Sena MD Technologist: CT Exam Location: [facility] [place] Indication: SHORTNESS OF BREATH BP: 125 / 66 HR: 65 Rhythm: Sinus Technical Quality: Adequate MEASUREMENTS (Male / Female) Normal Values 2D ECHO LVOT Diameter 2.1 cm LV Ejection Fraction MOD 2C 50.6 % LV Ejection Fraction 2C AL 50.8 % LA Diameter 5.1 cm Aorta at Sinotubular Diameter 4.2 cm IVC Diameter 2.8 cm M-MODE Aortic Annulus Diameter 4.0 cm LA Ao Ratio MM 1.3 MV E Point Septal Separation 0.6 cm FINDINGS Left Ventricle Right Ventricle Right Atrium Left Atrium Mitral Valve Aortic Valve Tricuspid Valve Pulmonic Valve Pericardium Aorta IVC CONCLUSIONS LV systolic function is normal with EF of 55-60% Small sized pericardial effusion is noted Compared to prior echocardiogram from 01/2023, patient appears to have small sized pericardial effusion now Saurabh Fitzpatrick MD (Electronically Signed) Final Date: 10 June 2023 12:08 S
[2023-06-09] MEDS: pantoprazole 40 mg SDV IVP ×2 (12:23→23:50)
[2023-06-09 17:00] LABS: Hematocrit 31.2 % (37-53)
[2023-06-09] MEDS: carvedilol 12.5 mg Tablet PO (17:05)
[2023-06-09 17:49] LABS: Potassium 4.7 mmol/L (3.5-5.1)
--- NOTE | 2023-06-09 18:27 | PC.NURSE ---
Patient received dialysis 2300mL out. Patient resting at this time.
[2023-06-10] VITALS (102 sets, daily range): BP systolic 102–169; BP diastolic 54–97; PULSE 51–75; RESP 11–31; TEMP 36.4–37.1; O2SAT 77–100
--- NOTE | 2023-06-10 01:28 | PC.NURSE ---
Amiodarone held due to bradycardia. Patient exhibiting pauses and pulse rate in the 50s. Rate has resolved to 68-[address] order noted to run per protocol however amio drip noted to have started at 0.5 rate after bolus.
[2023-06-10 04:51] LABS: Basophils % 0.7 %; Eosinophils # 0.1 10^3/uL (0.0-0.8); Eosinophils % 2.4 %; Hematocrit 33.4 % (37-53); Lymphocytes # 1.1 10^3/uL (0.8-4.8); Lymphocytes % 19.7 %; Mean Corpuscular HGB Conc 31.1 g/dL (30-55); Mean Corpuscular Hemoglobin 31.6 pg (27-33); Mean Corpuscular Volume 101.5 fl (82-101); Mean Platelet Volume 11.3 fL (7.4-10.4); Monocytes # 0.7 10^3/uL (0.2-0.9); Monocytes % 12.2 %; Neutrophils # 3.49 10^3/uL (1.8-7.7); Neutrophils % 64.8 %; Nucleated Red Blood Cells % 0 %; Platelet Count 165 10^3/cmm (157-399); Red Blood Count 3.29 10^6/uL (3.85-5.65); Red Cell Distribution Width 18.2 % (12.1-15.1); White Blood Count 5.39 10^3/uL (3.29-11.43)
[2023-06-10 05:12] LABS: Alanine Aminotransferase 11 U/L (0-41); Albumin Level 3.8 g/dL (3.5-5.2); Alkaline Phosphatase 145 U/L (40-130); Anion Gap 18.7 (5-19); Aspartate Amino Transferase 17 U/L (0-40); Blood Urea Nitrogen 73 mg/dL (6-20); Calcium 11.1 mg/dL (8.5-10.5); Carbon Dioxide 31 mmol/L (22-29); Chloride 97 mmol/L (98-107); Globulin 2.8 g/dL (1.3-4.6); Glomerular Filtration Rate 11.7 mL/min (90-130); Glucose 83 mg/dL (65-115); Magnesium 2.2 mg/dL (1.7-2.3); Osmolality Calculated 313 mOsm/kg (285-295); Potassium 5.7 mmol/L (3.5-5.1); Sodium 141 mmol/L (136-145); Total Bilirubin 0.6 mg/dL (0.15-1.2); Total Protein 6.6 g/dL (6.6-8.7)
[2023-06-10 05:14] LABS: Creatinine Clr Calc Pharmacy 17.1785
[2023-06-10] MEDS: sertraline 50 mg Tablet PO (05:45)
--- NOTE | 2023-06-10 07:54 | PM.PN ---
Subjective Subjective: Patient was evaluated this morning while lying in bed on 5 L per oxymask. Patient resting comfortably but able to wake up by verbal stimuli and answer simple questions. Patient states he feels better and less short of breath. No new complaints from patient this at this time. Medications: Reviewed: Yes Vitals/I&O/Wt Last Vital Signs Temp 97.8 F 06/10/23 07:00 Pulse 65 06/10/23 07:00 Resp 18 06/10/23 07:00 BP 142/90 06/10/23 07:00 Pulse Ox 94 06/10/23 07:00 O2 Del Method Nasal Cannula 06/09/23 13:18 O2 Flow Rate 5 06/09/23 13:18 06/09/23 06/10/23 06/10/23 22:59 06:59 14:59 Intake Total 437.778 / 675.000 260.838 / 935.838 Balance 437.778 / 675.000 260.838 / 935.838 Weight last 48 hrs Weight 95.254 kg Weight 95.254 kg Weight 96.615 kg Weight 86.183 kg Physical Exam Narrative: General: Ill-appearing, alert, able to answer questions appropriately, oxygen supplementation 5L/NC, chronically sick appearing HEENT: PERRLA, pupils bilaterally equal and reactive, red conjunctiva Lymph: No lymphadenopathy noted Chest: Coarse lungs throughout. Even chest rise. On nasal cannula. Cardiac: S1-S2 regular, 2/4 grade murmur, no tachycardia, no rubs, Abdomen: Soft, nontender, no organomegaly, bowel sounds present, obese Neuro: No focal deficits, no facial deformity, AO x3, Data 06/10/23 04:18 06/10/23 04:18 Other Labs: Hemoglobin 10.4, hematocrit 33.4, Potassium 5.7, BUN 73, creatinine 5.1, calculated osmolality 313, alk phos 145. A&P Assessment and plan (1) End stage renal disease: Nephrology consultation. Recommendations appreciated Plan for hemodialysis treatment today. Patient underwent emergent ICU bedside hemodialysis treatment yesterday. 2300 mL removed. BUN and creatinine have improved. Continue renal diet. Blood cultures pending results. (2) Hyperkalemia: As per #1 Initial potassium level noted to be 8.2. Potassium this a.m. revealed 5.7 post medications and hemodialysis. CBC, CMP, Mag in AM. (3) Hypoxia: Currently on 5 L per OxyMask. No signs or symptoms of respiratory distress at this time. Resting comfortably. Normal home requirement of oxygen is 3L/NC, though patient states noncompliance at times. (4) Ventricular tachycardia: Likely due to #2, hyperkalemia. No acute vents overnight. Was noticed to be in bradycardia with a heart rate of 40-50. Nursing staff notified hospitalist and amiodarone drip was stopped at midnight. Will add amiodarone 200 mg p.o. twice daily today. We will continue to monitor telemetry and laboratory (electrolyte) values for new or changed cardiac dysrhythmias. Bedside echocardiogram was performed yesterday. Pending results. Known CAD with RCA intervention in December 2022 with RASHAUN. (5) GI bleed: Patient states bloody stools while at hemodialysis clinic. H&H stable at this time. Per nursing, no bloody stools at this time or since ER admission yesterday. Rectal exam was performed and patient did have some external hemorrhoids, excoriation, and erythema which is likely possibly the cause. Will continue to trend H&H and monitor for worsening signs and symptoms of bloody stool. Protonix for GI prophylaxis (6) Hypothyroidism: Home medication levothyroxine. (7) Hypertension: Stable Resume home antihypertensives. Hydralazine 25 mg p.o. 3 times daily Coreg 12.5 mg p.o. twice daily (8) Congestive heart failure: Stable at this time. No shortness of breath or significant peripheral edema. As per #3. Plan Plan as stated above. Patient received hemodialysis yesterday. Patient will receive another hemodialysis treatment today. Potassium level has improved. H&H is stable from GI bleed causes. Will continue to monitor telemetry for cardiac dysrhythmias. Continue renal diet. Change amiodarone to p.o. CODE STATUS: Full code DVT prophylaxis: SCDs. PPI prophylaxis: Protonix Attestations Medical Necessity Statement*: Will need greater than 2 midnight stay for evaluation and treatment of ventricular tachycardia, GI bleed, end-stage renal disease. Coding Level of Care Code Acute Code for [facility] Fwd Diagnoses End stage renal disease N18.6 Hyperkalemia E87.5 Hypoxia R09.02 Ventricular tachycardia I47.20 GI bleed K92.2 Hypothyroidism E03.9 Hypertension, unspecified type I10 Congestive heart failure I50.9
[2023-06-10] MEDS: carvedilol 12.5 mg Tablet PO ×2 (08:24→18:04)
[2023-06-10] MEDS: amiodarone 200 mg Tablet PO ×2 (08:24→18:04)
[2023-06-10] MEDS: levothyroxine 75 mcg Tablet PO (08:24)
[2023-06-10] MEDS: pantoprazole DR 40 mg Tablet PO ×2 (08:24→18:04)
[2023-06-10] MEDS: hyDRALAzine 50 mg Tablet 25 MG PO ×2 (08:24→21:16)
[2023-06-10] MEDS: lactulose oral liq 20 gm/30 mL UDC 10 GM PO (08:26)
--- NOTE | 2023-06-10 09:12 | P.PN_ITS ---
Subjective 2 Subjective: mental status improved Medications: Reviewed: Yes Vitals/I&O/Wt Last Vital Signs Temp 98.7 F 06/10/23 08:00 Pulse 68 06/10/23 08:00 Resp 23 H 06/10/23 08:00 BP 124/68 06/10/23 08:00 Pulse Ox 92 06/10/23 08:00 O2 Del Method Nasal Cannula 06/09/23 13:18 O2 Flow Rate 5 06/09/23 13:18 06/09/23 06/10/23 06/10/23 22:59 06:59 14:59 Intake Total 437.778 / 675.000 260.838 / 935.838 250 / 250 Balance 437.778 / 675.000 260.838 / 935.838 250 / 250 Weight last 48 hrs Weight 95.254 kg Weight 95.254 kg Weight 96.615 kg Weight 86.183 kg Data 06/10/23 04:18 06/10/23 04:18 A&P Assessment and plan (1) ESRD (end stage renal disease) on dialysis: Plan 1. End-stage renal disease: On MWF schedule as outpatient, missed hemodialysis on Wednesday, now presented with wide-complex tachycardia in the setting of severe hyperkalemia with a potassium of 8.2. - s/p emergent HD yesterday , plan for HD again today -Placed on low K diet 2. hyperkalemia, HD as above 3. Altered mental status: Improved, Likely uremia related, HD as above 4. Anemia: Monitor hemoglobin 5. History of A-fib Patient evaluated using audiovisual cart. Time spent 20 minutes. Attestations 2 Medical Necessity Statement*: per medicine Coding Level of Care Code Acute Code for Chg Fwd Diagnoses ESRD (end stage renal disease) on dialysis N18.6; Z99.2
--- NOTE | 2023-06-10 10:17 | PC.NURSE ---
resting quietly pending dialysis for today large loose bm no blood noted
--- NOTE | 2023-06-10 13:58 | P.DS_ITS ---
Discharge Providers Date of Admission: 06/09/23 10:32 Date of Discharge: June 10, 2023 Attending Provider at Admission: James Sena MD Attending Provider at Discharge: James Sena MD Primary Care Provider: Randolph Ortiz MD Diagnoses at Discharge Discharge Diagnosis (1) End stage renal disease: Status: Chronic (2) Hyperkalemia: Status: Acute (3) Hypoxia: Status: Acute (4) Ventricular tachycardia: Status: Acute (5) GI bleed: Status: Acute (6) Hypothyroidism: Status: Acute (7) Hypertension: Status: Acute (8) Congestive heart failure: Status: Acute Reason for Visit Reason for Visit: Blood in stool Hospital Course Hospital Course Navneet is a chronically ill white male with end-stage renal disease on hemodialysis who missed dialysis and came in to the emergency department complaining of 1 bloody stool, and was noted to be in ventricular tachycardia. He was cardioverted in the emergency department. His potassium was found to be greater than 8, with significant anion gap metabolic acidosis. He was given calcium, insulin and glucose, and dialyzed as soon as possible. He had no further arrhythmias in the hospital after potassium was decreased. Limited echo demonstrated preserved EF. He had no GI bleeding while in the hospital. I discussed with him further workup of blood in stool, and will defer this to his primary care provider. Hemoglobin was stable in the hospital. INR was not elevated. He was dialyzed again prior to discharge on June 10. He was told to follow-up with dialysis the following day and keep compliance with dialysis appointments on Wednesday. He will also follow-up with his primary care provider in 3 to 5 days. He was given opportunity to ask questions and agreed with the plan. Physical Exam Narrative: General exam no distress Neck is supple Cardiovascular regular rhythm Lungs clear Abdomen soft Extremities no cyanosis clubbing or edema Discharge Data Studies Completed and Pending Completed Studies During Hospitalization Category Date Time Status XR chest 1V portable [id number] Stat Exams 06/09/23 09:22 Completed CV. echo limited [id number] Routine Ultrasound 06/09/23 11:34 Completed Pending at discharge Category Date Time Status Blood Cultures ([facility]) Routine Lab 06/09/23 10:00 Received Blood Cultures ([facility]) Routine Lab 06/09/23 10:03 Received Laboratory Results WBC 5.39 10^3/uL (3.29-11.43) 06/10/23 04:18 RBC 3.29 10^6/uL (3.85-5.65) L 06/10/23 04:18 Hgb 10.40 g/dL (11.27-16.99) L 06/10/23 04:18 Hct 33.4 % (37-53) L 06/10/23 04:18 MCV 101.5 fl (82-101) H 06/10/23 04:18 MCH 31.6 pg (27-33) 06/10/23 04:18 MCHC 31.1 g/dL (30-55) 06/10/23 04:18 RDW 18.2 % (12.1-15.1) H 06/10/23 04:18 Plt Count 165 10^3/cmm (157-399) 06/10/23 04:18 MPV 11.3 fL (7.4-10.4) H 06/10/23 04:18 Neut % (Auto) 64.8 % 06/10/23 04:18 Lymph % (Auto) 19.7 % 06/10/23 04:18 [place] % (Auto) 12.2 % 06/10/23 04:18 Eos % (Auto) 2.4 % 06/10/23 04:18 Baso % (Auto) 0.7 % 06/10/23 04:18 Neut # (Auto) 3.49 10^3/uL (1.8-7.7) 06/10/23 04:18 Lymph # (Auto) 1.1 10^3/uL (0.8-4.8) 06/10/23 04:18 [place] # (Auto) 0.7 10^3/uL (0.2-0.9) 06/10/23 04:18 Eos # (Auto) 0.1 10^3/uL (0.0-0.8) 06/10/23 04:18 Baso # (Auto) 0.0 10^3/uL (0.0-0.1) 06/10/23 04:18 Nucleated RBC % (auto) 0 % 06/10/23 04:18 Nucleated RBCs # 0.0 /100WBC 06/10/23 04:18 PT 14.80 SECONDS (12.1-14.9) 06/09/23 09:20 INR 1.12 (0.8-1.2) 06/09/23 09:20 APTT 38.4 SECONDS (23.9-36.7) H 06/09/23 09:20 Specimen Type Arterial 06/09/23 09:22 Sample Site Brachial, right 06/09/23 09:22 ABG pH 7.42 (7.35-7.45) 06/09/23 09:22 ABG pCO2 41.5 mmHg (35-45) 06/09/23 09:22 ABG pO2 63.5 mmHg (80.0-100.0) L 06/09/23 09:22 ABG HCO3 26.8 mmol/L (22-26) H 06/09/23 09:22 ABG O2 Saturation 91.0 06/09/23 09:22 ABG Base Excess 2.1 mmol/L (-2.0-2.0) H 06/09/23 09:22 Denis Test Pos 06/09/23 09:22 A-a O2 Gradient 4.7 mmHg (5-10) L 06/09/23 09:22 Hematocrit 33.6 % (42-52) L 06/09/23 09:22 Hgb O2 Saturation 88.2 % (95-100) L 06/09/23 09:22 Carboxyhemoglobin 2.3 %THgb (0.4-20.1) 06/09/23 09:22 Methemoglobin 0.7 % (0.4-1.5) 06/09/23 09:22 Total Hemoglobin 11.0 g/dL (14-18) L 06/09/23 09:22 Sodium 136.0 mmol/L (131-143) 06/09/23 09:22 Potassium 7.9 mmol/L (3.5-5.0) H 06/09/23 09:22 Glucose 100.0 mg/dL (70-115) 06/09/23 09:22 Ionized Calcium 1.7 mmol/L (1.1-1.4) H 06/09/23 09:22 O2 Delivery Device Nc 06/09/23 09:22 O2 Liters/Min 6.0 % 06/09/23 09:22 Shearing Shed Worker ID Cak 06/09/23 09:22 Sodium 141 mmol/L (136-145) 06/10/23 04:18 Potassium 5.7 mmol/L (3.5-5.1) H 06/10/23 04:18 Chloride 97 mmol/L (98-107) L 06/10/23 04:18 Carbon Dioxide 31 mmol/L (22-29) H 06/10/23 04:18 Anion Gap 18.7 (5-19) 06/10/23 04:18 BUN 73 mg/dL (6-20) H 06/10/23 04:18 Creatinine 5.1 mg/dL (0.7-1.2) H 06/10/23 04:18 GFR Calculation 11.7 mL/min (90-130) L 06/10/23 04:18 Glucose 83 mg/dL (65-115) 06/10/23 04:18 POC Glucose 169 mg/dL (70-110) H 06/09/23 10:23 Calculated Osmolality 313 mOsm/kg (285-295) H 06/10/23 04:18 Calcium 11.1 mg/dL (8.5-10.5) H 06/10/23 04:18 Phosphorus 7.4 mg/dL (2.5-4.5) H 06/09/23 09:28 Magnesium 2.2 mg/dL (1.7-2.3) 06/10/23 04:18 Total Bilirubin 0.6 mg/dL (0.15-1.2) 06/10/23 04:18 AST 17 U/L (0-40) 06/10/23 04:18 ALT 11 U/L (0-41) 06/10/23 04:18 Alkaline Phosphatase 145 U/L (40-130) H 06/10/23 04:18 Total Protein 6.6 g/dL (6.6-8.7) 06/10/23 04:18 Albumin 3.8 g/dL (3.5-5.2) 06/10/23 04:18 Globulin 2.8 g/dL (1.3-4.6) 06/10/23 04:18 Vitals Last Vital Signs Temp 98 F 06/10/23 12:00 Pulse 60 06/10/23 12:00 Resp 20 H 06/10/23 12:00 BP 132/82 06/10/23 12:00 Pulse Ox 99 06/10/23 12:00 O2 Del Method Nasal Cannula 06/09/23 13:18 O2 Flow Rate 5 06/09/23 13:18 Discharge Plan Discharge Patient Disposition: Home Condition: Stable Prescriptions: Continued ondansetron 4 mg tablet,disintegrating 4 mg PO Q8H PRN (Reason: nausea and vomiting) Qty: 90 1RF amiodarone 400 mg tablet 400 mg PO DAILY Qty: 90 1RF lactulose 10 gram/15 mL solution See Rx Instructions .ROUTE .COMPLEX Qty: 473 1RF Rx Instructions: TThSaSu; 15 mL orally ON NON DIALYSIS DAYS- WEDNESDAY, WEDNESDAY, WEDNESDAY AND WEDNESDAY cinacalcet 30 mg tablet 30 mg PO QAM Qty: 90 0RF RenaPlex-D 800 mcg-12.5 mg -2,000 unit tablet 1 tab PO DAILY Qty: 90 1RF clonidine HCl 0.2 mg tablet 0.1 mg PO BID 30 Days Qty: 180 4RF hydralazine 50 mg tablet 50 mg PO TID 90 Days Qty: 270 1RF sertraline 50 mg tablet 50 mg PO QAM Qty: 90 1RF cholecalciferol (vitamin D3) 125 mcg (5,000 unit) capsule 125 mcg PO QAM levothyroxine 75 mcg tablet 75 mcg PO DAILY 30 Days Qty: 60 2RF hydroxyzine HCl 25 mg tablet 25 mg PO TID PRN (Reason: Insomnia) Qty: 90 4RF Rx Instructions: sleep, anxiety and itching Veltassa 8.4 gram powder in packet See Rx Instructions .ROUTE .COMPLEX Rx Instructions: TAKE ONCE ON NON- DIALYSIS DAYS, WEDNESDAY, WEDNESDAY, WEDNESDAY, WEDNESDAY Nitrostat 0.4 mg Tablet, Sublingual 0.4 mg SUBLINGUAL Q5M PRN (Reason: Chest Pain) Rx Instructions: do not exceed 3 doses per episode Auryxia 210 mg iron tablet See Rx Instructions .ROUTE .COMPLEX Rx Instructions: TAKE 2 TABLETS BY MOUTH THREE TIMES DAILY WITH MEALS AND 1 TABLET TWICE DAILY WITH SNACKS (SWALLOW WHOLE, DO NOT CHEW OR CRUSH MEDICATION) lidocaine 4 % Cream 1 applic TOPICAL QID PRN (Reason: Pain) hydroxyzine HCl 50 mg tablet 50 mg PO BEDTIME PRN (Reason: Sleep) isosorbide mononitrate 60 mg tablet extended release 24 hr 30 mg PO QAM carvedilol 25 mg tablet 12.5 mg PO BID Discontinued lisinopril 40 mg tablet 40 mg PO QAM Qty: 90 0RF Hold Instructions: Resume on 03/05/23. Discharge Orders: Discharge Order (Routine); Ordered 06/10/23 Ordered By: James Sena Referrals: Randolph Ortiz MD [Primary Care Provider] - 4-7 days Discharge Activity: Increase activity as tolerated Patient Instructions: Opioid Safety Activity Restrictions/Additional Instructions: Resume renal diet, low potassium Do not miss any dialysis treatments Continue to get your intermittent paracentesis Return for any concerns Resume your home oxygen, 3 L as you are on currently. May discharge following dialysis today Keep your dialysis appointment tomorrow, and continue your Wednesday dialysis. Discharge Attestations Time Spent in Discharge Care*: greater than 30 min Quality Metrics Clinical Quality Measures [ No reported AMI, CVA or VTE this stay] Coding Level of Care Code 89050 Total time (in minutes) for Discharge: 31 Diagnoses End stage renal disease N18.6 Hyperkalemia E87.5 Hypoxia R09.02 Ventricular tachycardia I47.20 GI bleed K92.2 Hypothyroidism E03.9 Hypertension, unspecified type I10 Congestive heart failure I50.9
[2023-06-10] MEDS: epoetin alfa 1000 Unit/0.05 mL (ESRD) 20000 UNIT IVP (14:42)
[2023-06-10] MEDS: heparin, porcine 1,000 unit/mL INJ 10 mL 10000 UNIT INTRACATH (14:46)
--- NOTE | 2023-06-10 16:52 | PC.NURSE ---
pt receiving dialysis stated that he could not go home yari was not able to get up his stairs and take care of himself and the person that help him not around tonariadna ,, he felt he was too weak with dialysis today .. doctor notified
[2023-06-11] VITALS (18 sets, daily range): BP systolic 94–175; BP diastolic 51–96; PULSE 54–66; RESP 15–24; TEMP 36.6–37; O2SAT 90–100
--- NOTE | 2023-06-11 05:44 | PC.NURSE ---
Patient rested comfortably throughout shift. O2 requirements remain at baseline 3Lnc. No reports of pain, patient reports pruritus on back; resolved with washing and lotion. Noted to have DC orders that have not been acknowledged. Dayshift nurse reports discussion about patient remaining the night for evaluation in the morning when daughter is able to be here. [employer] updated on situation.
[2023-06-11] MEDS: sertraline 50 mg Tablet PO (06:09)
--- NOTE | 2023-06-11 07:18 | P.PN_ITS ---
Subjective 2 Subjective: This should serve as an addendum to his discharge summary. Yesterday, he reported he did not have a ride and did not feel like getting discharged as it was very late after dialysis. He reports he feels okay today, and is amenable to discharge. However, as he is hospitalized he will need dialysis prior to discharge to maintain his Wednesday regimen. I have gone ahead and ordered some lab for today, and expect discharge following dialysis. He denies any abdominal pain, blood in stool. Medications: Reviewed: Yes Vitals/I&O/Wt Last Vital Signs Temp 97.8 F 06/11/23 06:00 Pulse 65 06/11/23 06:00 Resp 18 06/11/23 06:00 BP 143/75 06/11/23 06:00 Pulse Ox 100 06/11/23 06:00 O2 Del Method Nasal Cannula 06/11/23 06:00 O2 Flow Rate 3 06/11/23 06:00 06/10/23 06/11/23 06/11/23 22:59 06:59 14:59 Intake Total 0 / 450 Output Total 2500 / 2500 Balance -2500 / -2050 Weight last 48 hrs Weight 92.986 kg Weight 92.986 kg Weight 95.254 kg Weight 95.254 kg Weight 96.615 kg Weight 86.183 kg Physical Exam 2 Narrative: General exam no distress Neck is supple Cardiovascular regular rhythm Lungs clear Abdomen soft Extremities no cyanosis clubbing or edema Data 06/10/23 04:18 06/10/23 04:18 A&P Assessment and plan (1) End stage renal disease: Patient with known history of end-stage renal disease presents with GI bleed and laboratory studies found significant high BUN and creatinine. Patient reports that he was unable to go to Wednesday dialysis visit as he felt ill. Last treatment was on 06/04/2023. Emergent hemo-dialysis treatment to be performed stat. Fistula noted to upper extremity. Nephrology consult. Blood cultures were performed while the emergency room. Still pending but no evidence of infection Expect discharge after dialysis today (2) Hyperkalemia: Initial potassium level noted to be 8.2. This is most likely due to missed hemodialysis treatment from Wednesday. Calcium gluconate was given for cardiac stabilization. Patient was given 15 units IV insulin and an amp of D50 while in emergency room. Received emergent dialysis on admission. Received dialysis yesterday as well and expected today prior to discharge. Check CBC and BMP (3) Ventricular tachycardia: I likely think this is due to #2, hyperkalemia causing severe cardiac dysrhythmias. Per EMS EKG as well as telemetry in emergency room, patient's rhythm was noted to be ventricular tachycardia. Patient received calcium gluconate for cardiac stabilization. Patient also received Versed for sedation and was defibrillated while in the emergency room. Patient rhythm is sinus bradycardia with a first-degree AV block post defibrillation. Patient was given amiodarone IV bolus and placed on amiodarone drip. His oral amiodarone has now been restarted Limited echo demonstrates preserved EF No dysrhythmias since potassium corrected Has known coronary artery disease with RCA intervention in December 2022 with drug-eluting stents. (4) GI bleed: Patient states bloody stools while at hemodialysis clinic. H&H stable at this time. No signs or symptoms of anemia at this time. Patient noted to have external hemorrhoids and excoriation on rectal exam. He has had no evidence of recurrent bleeding here with bowel movements for DVT prophylaxis Continue Protonix Follow-up with primary care provider regarding bloody stool (5) Hypothyroidism: Currently on levothyroxine. Will resume home medication (6) Hypertension: Noted to be on antihypertensive medication. Stable at this time. Medication resumed with exception of lisinopril and clonidine at this time. (7) Congestive heart failure: Stable at this time. No shortness of breath or significant peripheral edema. Echocardiogram explained in #3. Plan History of intermittent paracentesis, with last paracentesis being June 08. CODE STATUS: Full code DVT prophylaxis: SCDs. Anticipate discharge today Attestations 2 Medical Necessity Statement*: Expect discharge today following dialysis Diagnoses End stage renal disease N18.6 Hyperkalemia E87.5 Ventricular tachycardia I47.20 GI bleed K92.2 Hypothyroidism E03.9 Hypertension, unspecified type I10 Congestive heart failure I50.9 Time Spent (min) 18
[2023-06-11 08:08] LABS: Basophils % 0.8 %; Eosinophils # 0.1 10^3/uL (0.0-0.8); Eosinophils % 1.9 %; Hematocrit 35.2 % (37-53); Lymphocytes # 0.9 10^3/uL (0.8-4.8); Lymphocytes % 17.9 %; Mean Corpuscular HGB Conc 31.5 g/dL (30-55); Mean Corpuscular Hemoglobin 31.5 pg (27-33); Mean Platelet Volume 10.7 fL (7.4-10.4); Monocytes # 0.7 10^3/uL (0.2-0.9); Monocytes % 13.8 %; Neutrophils # 3.34 10^3/uL (1.8-7.7); Neutrophils % 65.2 %; Nucleated Red Blood Cells % 0 %; Platelet Count 178 10^3/cmm (157-399); Red Blood Count 3.52 10^6/uL (3.85-5.65); Red Cell Distribution Width 17.6 % (12.1-15.1); White Blood Count 5.13 10^3/uL (3.29-11.43)
[2023-06-11] MEDS: amiodarone 200 mg Tablet PO (08:21)
[2023-06-11] MEDS: pantoprazole DR 40 mg Tablet PO (08:21)
[2023-06-11] MEDS: carvedilol 12.5 mg Tablet PO (08:21)
[2023-06-11] MEDS: levothyroxine 75 mcg Tablet PO (08:21)
[2023-06-11] MEDS: hyDRALAzine 50 mg Tablet 25 MG PO (08:21)
[2023-06-11 08:27] LABS: Anion Gap 18.4 (5-19); Blood Urea Nitrogen 46 mg/dL (6-20); Calcium 11.2 mg/dL (8.5-10.5); Carbon Dioxide 29 mmol/L (22-29); Chloride 94 mmol/L (98-107); Glomerular Filtration Rate 15.1 mL/min (90-130); Glucose 78 mg/dL (65-115); Osmolality Calculated 293 mOsm/kg (285-295); Potassium 5.4 mmol/L (3.5-5.1); Sodium 136 mmol/L (136-145)
--- NOTE | 2023-06-11 09:45 | P.PN_ITS ---
Subjective 2 Subjective: no new complaints Medications: Reviewed: Yes Vitals/I&O/Wt Last Vital Signs Temp 97.8 F 06/11/23 06:00 Pulse 62 06/11/23 09:00 Resp 18 06/11/23 09:00 BP 175/95 06/11/23 08:00 Pulse Ox 98 06/11/23 09:00 O2 Del Method Nasal Cannula 06/11/23 06:00 O2 Flow Rate 3 06/11/23 06:00 06/10/23 06/11/23 06/11/23 22:59 06:59 14:59 Intake Total 0 / 450 200 / 200 Output Total 2500 / 2500 Balance -2500 / -2050 200 / 200 Weight last 48 hrs Weight 92.986 kg Weight 92.986 kg Weight 95.254 kg Weight 95.254 kg Weight 96.615 kg Physical Exam 2 Narrative: awake , alert Data 06/11/23 07:58 06/11/23 07:58 A&P Assessment and plan (1) ESRD (end stage renal disease) on dialysis: Plan 1. End-stage renal disease: On MW schedule as outpatient, missed hemodialysis on Wednesday, now presented with wide-complex tachycardia in the setting of severe hyperkalemia with a potassium of 8.2. - k still elevated, HD today -Placed on low K diet 2. hyperkalemia, HD as above 3. Altered mental status: Improved, Likely uremia related, HD as above 4. Anemia: Monitor hemoglobin 5. History of A-fib Patient evaluated using audiovisual cart. Time spent 20 minutes. Attestations 2 Medical Necessity Statement*: per sera Coding Level of Care Code Acute Code for Chg Fwd Diagnoses ESRD (end stage renal disease) on dialysis N18.6; Z99.2
[2023-06-11] MEDS: heparin, porcine 1,000 unit/mL INJ 10 mL 1000 UNIT HE (15:07)
[2023-06-11 16:09] LABS: SARS Covid-2 Antigen negative (Negative)
--- NOTE | 2023-06-11 16:57 | PC.NURSE ---
[facility] unable to transport, all D/C instructions educated to patient and family, family transported to [facility]
--- NOTE | 2023-06-11 16:58 | PC.NURSE ---
report called to Nevaeh Khalil
== END 2023-06-11 16:59 | disposition home or self-care (01) | DRG 640 ==
LOC: ER 10:24 → ICU 10:32
PROVIDERS: Admitting Provider Internal Medicine; Emergency Provider Family Medicine; PCP Family Medicine; Visit Provider Internal Medicine
DX: E87.5 Hyperkalemia (principal); N18.6 End stage renal disease; I47.20 Ventricular tachycardia, unspecified; R18.8 Other ascites; K92.1 Melena; I48.20 Chronic atrial fibrillation, unspecified; I13.2 Hypertensive heart and chronic kidney disease with heart failure and with stage 5 chronic kidney disease, or end stage renal disease; E87.20 Acidosis, unspecified; I25.10 Atherosclerotic heart disease of native coronary artery without angina pectoris; Z95.5 Presence of coronary angioplasty implant and graft; R00.1 Bradycardia, unspecified; I44.0 Atrioventricular block, first degree; I25.2 Old myocardial infarction; Z87.891 Personal history of nicotine dependence; K21.9 Gastro-esophageal reflux disease without esophagitis; E03.9 Hypothyroidism, unspecified; Z86.73 Personal history of transient ischemic attack (TIA), and cerebral infarction without residual deficits; F32.9 Major depressive disorder, single episode, unspecified; M10.9 Gout, unspecified; I50.9 Heart failure, unspecified; Z99.2 Dependence on renal dialysis; Z91.158 Patient's noncompliance with renal dialysis for other reason
CPT/HCPCS: 36415; 36416; 36600; 49083; 71045; 80048; 80051; 80053; 82330; 82805; 82962; 83735; 84100; 84132; 85014; 85018; 85025; 85610; 85730; 87040; 87426; 92960; 93005; 93308; 96365; 96366; 96367; 96372; 96375; 96376; 99291; A4222; C9113; J0282; J0283; J1644; J1815; J2250; J3490; J7070; P9046; Q3014; Q4081

== ENCOUNTER 2023-06-15 10:52 | Day surgery (SDC) | payer MEDICARE, MEDICAID, SELFPAY ==
--- NOTE | 2023-06-15 11:04 | US_ITS ---
WS: [email or web address] ULTRASOUND-GUIDED THERAPEUTIC PARACENTESIS Procedure, risks, and complications have been explained to the patient. Consent is obtained. Utilizing aseptic technique and 1% buffered lidocaine, a small dermatome was made through which a 5 F rench Yueh catheter was inserted. Approximately 2700 ml of clear peritoneal fluid was obtained witho ut difficulty. No complications encountered. IMPRESSION: Uncomplicated paracentesis yielding 2700 ml of peritoneal fluid.
[2023-06-15 11:06] VITALS: BP 125/79; PULSE 50; RESP 18; TEMP 36.3; O2SAT 96
[2023-06-15] MEDS: albumin 75 G/300 ML BAG 500 G IV (12:02)
== END 2023-06-15 12:38 | disposition home or self-care (01) ==
PROVIDERS: Radiology Diagnostic Radiology; PCP Family Medicine; Visit Provider Internal Medicine Nephrology
PROC: (CPT 49082; principal; 2023-06-15 12:00)
DX: R18.8 Other ascites (principal)
CPT/HCPCS: 49083; 76705; 96365; P9046

== ENCOUNTER 2023-06-22 10:46 | Day surgery (SDC) | payer MEDICARE, MEDICAID, SELFPAY ==
[2023-06-22 11:00] VITALS: BP 120/68; PULSE 54; RESP 18; TEMP 36.7; O2SAT 93
--- NOTE | 2023-06-22 11:05 | US_ITS ---
WS: [email or web address] INDICATION: Paracentesis TECHNIQUE: Ultrasound abdomen FINDINGS: Small amount of fluid in the LEFT lower quadrant. Insufficient fluid for paracentesis at th is time. Patient deferred paracentesis until next week. IMPRESSION: See above
[2023-06-22 11:18] VITALS: BMI 33.9
== END 2023-06-22 11:53 | disposition home or self-care (01) ==
PROVIDERS: Radiology Neuroradiology; PCP Family Medicine; Visit Provider Internal Medicine Nephrology
DX: R18.8 Other ascites (principal)
CPT/HCPCS: 76705

== ENCOUNTER 2023-06-29 10:41 | Day surgery (SDC) | payer MEDICARE, MEDICAID, SELFPAY ==
[2023-06-29 10:59] VITALS: BP 120/63; PULSE 58; RESP 16; TEMP 36.2; O2SAT 95; BMI 34.4
--- NOTE | 2023-06-29 11:01 | US_ITS ---
WS: [email or web address] ULTRASOUND-GUIDED THERAPEUTIC PARACENTESIS Procedure, risks, and complications have been explained to the patient. Consent is obtained. Utilizing aseptic technique and 1% buffered lidocaine, a small dermatome was made through which a 5 F rench Yueh catheter was inserted. Approximately 2600 ml of clear peritoneal fluid was obtained witho ut difficulty. No complications encountered. IMPRESSION: Uncomplicated paracentesis yielding 2600 ml of peritoneal fluid.
--- NOTE | 2023-06-29 12:05 | PC.NURSE ---
Dr Mandujano ordered no albumin if less than 3,000 ml. Pt drained 2,600 with para. Will DC albumin.
== END 2023-06-29 12:02 | disposition home or self-care (01) ==
PROVIDERS: Radiology Diagnostic Radiology; PCP Family Medicine; Visit Provider Internal Medicine Nephrology
PROC: (CPT 49082; principal; 2023-06-29 12:00)
DX: R18.8 Other ascites (principal)
CPT/HCPCS: 49083

== ENCOUNTER 2023-07-06 10:31 | Day surgery (SDC) | payer MEDICARE, MEDICAID, SELFPAY ==
[2023-07-06 10:57] VITALS: BP 140/76; PULSE 62; RESP 18; TEMP 36.7; O2SAT 99; BMI 32.8
--- NOTE | 2023-07-06 10:59 | US_ITS ---
WS: [email or web address] INDICATION: Abdomen limited for paracentesis TECHNIQUE: Ultrasound abdomen limited for paracentesis FINDINGS: Minimal ascites in the abdomen. Insufficient fluid for paracentesis at this time. Four-quad rant ultrasound performed IMPRESSION: Insufficient fluid for paracentesis
== END 2023-07-06 11:15 | disposition home or self-care (01) ==
LOC: GILAB 10:31
PROVIDERS: PCP Family Medicine; Visit Provider Internal Medicine Nephrology
DX: R18.8 Other ascites (principal)
CPT/HCPCS: 76705

== ENCOUNTER 2023-07-13 10:48 | Day surgery (SDC) | payer MEDICARE, MEDICAID, SELFPAY ==
--- NOTE | 2023-07-13 11:00 | US_ITS ---
WS: [email or web address] Limited abdomen ultrasound. HISTORY: Patient presents for paracentesis. There is a limited peritoneal fluid. Insufficient amount for paracentesis. IMPRESSION: No paracentesis performed today. Insufficient fluid.
[2023-07-13 11:01] VITALS: BP 138/73; PULSE 52; RESP 18; TEMP 36.6; O2SAT 94
== END 2023-07-13 11:50 | disposition home or self-care (01) ==
PROVIDERS: Radiology Diagnostic Radiology; PCP Family Medicine; Visit Provider Internal Medicine Nephrology
DX: R18.8 Other ascites (principal)
CPT/HCPCS: 76705

== ENCOUNTER 2023-07-20 10:48 | Day surgery (SDC) | payer MEDICARE, MEDICAID, SELFPAY ==
--- NOTE | 2023-07-20 11:02 | US_ITS ---
WS: [email or web address] INDICATION: Paracentesis TECHNIQUE: Four-quadrant abdominal ultrasound FINDINGS: Only minimal abdominal ascites. Insufficient fluid for paracentesis. IMPRESSION: See above
[2023-07-20 11:05] VITALS: BP 123/64; PULSE 53; RESP 18; TEMP 36.2; O2SAT 95; BMI 32.8
== END 2023-07-20 11:20 | disposition home or self-care (01) ==
LOC: GILAB 10:50
PROVIDERS: Radiology Neuroradiology; PCP Family Medicine; Visit Provider Internal Medicine Nephrology
DX: R18.8 Other ascites (principal)
CPT/HCPCS: 76705

== ENCOUNTER 2023-08-03 10:44 | Day surgery (SDC) | payer MEDICARE, MEDICAID, SELFPAY ==
--- NOTE | 2023-08-03 10:56 | US_ITS ---
WS: [email or web address] INDICATION: Paracentesis TECHNIQUE: Ultrasound abdomen limited FINDINGS: Four-quadrant ultrasound abdomen. Only mild ascites. Insufficient fluid for paracentesis to day. IMPRESSION: See above
[2023-08-03 11:00] VITALS: BP 144/73; PULSE 56; RESP 16; TEMP 36.4; O2SAT 95; BMI 32.8
== END 2023-08-03 11:15 | disposition home or self-care (01) ==
LOC: GILAB 10:52
PROVIDERS: Radiology Neuroradiology; PCP Family Medicine; Visit Provider Internal Medicine Nephrology
PROC: (CPT 49082; principal; 2023-08-03 12:00)
DX: R18.8 Other ascites (principal)
CPT/HCPCS: 76705

== ENCOUNTER 2023-08-17 10:28 | Day surgery (SDC) | payer MEDICARE, MEDICAID, SELFPAY ==
[2023-08-17 10:41] VITALS: BP 118/71; PULSE 57; RESP 16; TEMP 36.2; O2SAT 92
--- NOTE | 2023-08-17 10:42 | US_ITS ---
WS: [email or web address] Abdominal ultrasound, limited. History: Evaluate for ascites. Comparison: None. All 4 quadrants are imaged by ultrasound to evaluate for ascites. Only a small amount of peritoneal f luid is noted greatest in the LEFT lower quadrant. No paracentesis will be performed today. IMPRESSION: Only a small amount of ascites identified today. No paracentesis.
== END 2023-08-17 11:13 | disposition home or self-care (01) ==
PROVIDERS: Radiology Diagnostic Radiology; PCP Family Medicine; Visit Provider Internal Medicine Nephrology
DX: R18.8 Other ascites (principal)
CPT/HCPCS: 76705

== ENCOUNTER 2023-09-14 11:20 | Day surgery (SDC) | payer MEDICARE, MEDICAID, SELFPAY ==
--- NOTE | 2023-09-14 11:25 | US_ITS ---
WS: [email or web address] INDICATION: Paracentesis TECHNIQUE: Ultrasound abdomen limited FINDINGS: Only mild ascites visualized today. IMPRESSION: Insufficient fluid for paracentesis
--- NOTE | 2023-09-14 11:39 | PC.NURSE ---
Not enough fluid for para. Transport notified. Will update ordering physician.
[2023-09-14 11:40] VITALS: BP 140/69; PULSE 57; RESP 16; TEMP 36.1; O2SAT 91; BMI 31.9
== END 2023-09-14 11:50 | disposition home or self-care (01) ==
LOC: GILAB 11:21
PROVIDERS: Radiology Neuroradiology; PCP Family Medicine; Visit Provider Registered Nurse
DX: R18.8 Other ascites (principal)
CPT/HCPCS: 76705

== ENCOUNTER 2024-01-04 10:55 | Day surgery (SDC) | payer MEDICARE, MEDICAID, SELFPAY ==
--- NOTE | 2024-01-04 11:01 | US_ITS ---
WS: [email or web address] ULTRASOUND-GUIDED THERAPEUTIC PARACENTESIS Procedure, risks, and complications have been explained to the patient. Consent is obtained. Utilizing aseptic technique and 1% buffered lidocaine, a small dermatome was made through which a 5 F rench Yueh catheter was inserted. Approximately 6200 ml of clear peritoneal fluid was obtained witho ut difficulty. No complications encountered. US/US paracentesis abd w [id number] IMPRESSION: Uncomplicated paracentesis yielding 6200 ml of peritoneal fluid.
[2024-01-04 11:13] VITALS: BP 198/95; PULSE 67; RESP 22; TEMP 36.6; O2SAT 92; BMI 32.8
== END 2024-01-04 12:30 | disposition home or self-care (01) ==
LOC: GILAB 10:57
PROVIDERS: Radiology Diagnostic Radiology; PCP Family Medicine; Visit Provider Internal Medicine Nephrology
PROC: (CPT 49082; principal; 2024-01-04 12:30)
DX: R18.8 Other ascites (principal)
CPT/HCPCS: 49083

== ENCOUNTER → 2024-01-11 11:30 | Day surgery (SDC) | payer MEDICARE, MEDICAID, SELFPAY ==
[2024-01-11 11:44] VITALS: BP 204/117; PULSE 64; RESP 20; TEMP 36.3; O2SAT 98; BMI 32.8
--- NOTE | 2024-01-11 11:51 | US_ITS ---
WS: [email or web address] ULTRASOUND-GUIDED PARACENTESIS CLINICAL INFORMATION: ascites COMPARISON: None. Procedure Informed consent: The risks, benefits, and alternatives of the procedure were discussed with the lisa ent. Verbal and written consent was obtained. Timeout: A timeout was performed to confirm the correct patient, procedure, and site. Preparation: A suitable skin site was identified. The patient was prepped and draped in usual sterile fashion. Lidocaine 1% was used for local anesthesia. Catheter: 4 [place] One-step Yueh catheter. Side: LEFT lower quadrant. Fluid Volume: 4950 ml Color: Clear yellow DISPOSITION: Discarded safely. Complications: None. Patient disposition: Discharged from the department in stable condition. US/US paracentesis abd w [id number] IMPRESSION: Uncomplicated ultrasound-guided paracentesis. Removal of 4950 cc
== END ==
LOC: GILAB 11:31
PROVIDERS: Radiology Neuroradiology; PCP Family Medicine; Visit Provider Internal Medicine Nephrology
PROC: (CPT 49082; principal; 2024-01-11 12:30)
DX: R18.8 Other ascites (principal)
CPT/HCPCS: 49083

== ENCOUNTER → 2024-01-18 10:59 | Day surgery (SDC) | payer MEDICARE, MEDICAID, SELFPAY ==
[2024-01-18 11:27] VITALS: BP 153/74; PULSE 61; RESP 18; TEMP 36.7; O2SAT 93; BMI 14.5
--- NOTE | 2024-01-18 11:29 | US_ITS ---
WS: [email or web address] ULTRASOUND-GUIDED THERAPEUTIC PARACENTESIS Procedure, risks, and complications have been explained to the patient. Consent is obtained. Utilizing aseptic technique and 1% buffered lidocaine, a small dermatome was made through which a 5 F rench Yueh catheter was inserted. Approximately 4200 ml of clear peritoneal fluid was obtained witho ut difficulty. No complications encountered. US/[place] paracentesis abd w [id number] IMPRESSION: Uncomplicated paracentesis yielding 4200 ml of peritoneal fluid.
== END ==
LOC: GILAB 11:00
PROVIDERS: Radiology Diagnostic Radiology; PCP Family Medicine; Visit Provider Internal Medicine Nephrology
PROC: (CPT 49082; principal; 2024-01-18 12:30)
DX: R18.8 Other ascites (principal)
CPT/HCPCS: 49083

== ENCOUNTER 2024-01-25 10:59 | Day surgery (SDC) | payer MEDICARE, MEDICAID, SELFPAY ==
[2024-01-25 11:11] VITALS: BP 156/70; PULSE 57; RESP 20; TEMP 36.5; O2SAT 93; BMI 32.4
--- NOTE | 2024-01-25 11:19 | US_ITS ---
WS: [email or web address] ULTRASOUND-GUIDED PARACENTESIS CLINICAL INFORMATION: ASCITES COMPARISON: None. Procedure Informed consent: The risks, benefits, and alternatives of the procedure were discussed with the lisa ent. Verbal and written consent was obtained. Timeout: A timeout was performed to confirm the correct patient, procedure, and site. Preparation: A suitable skin site was identified. The patient was prepped and draped in usual sterile fashion. Lidocaine 1% was used for local anesthesia. Catheter: 4 [place] One-step Yueh catheter. Side: LEFT lower quadrant. Fluid Volume: 3200 ml Color: Clear yellow DISPOSITION: Discarded safely. Complications: None. Patient disposition: Discharged from the department in stable condition. US/US paracentesis abd w [id number] IMPRESSION: Uncomplicated ultrasound-guided paracentesis. Removal of 3200cc
== END 2024-01-25 13:00 | disposition home or self-care (01) ==
LOC: GILAB 11:00
PROVIDERS: Radiology Neuroradiology; PCP Family Medicine; Visit Provider Internal Medicine Nephrology
PROC: (CPT 49082; principal; 2024-01-25 12:30)
DX: R18.8 Other ascites (principal)
CPT/HCPCS: 49083

== ENCOUNTER 2024-01-27 05:47 | Inpatient (IN) | payer MEDICARE, MEDICAID, SELFPAY ==
[2024-01-27] VITALS (19 sets, daily range): BP systolic 106–229; BP diastolic 62–117; PULSE 51–93; RESP 13–28; TEMP 36.2–36.9; O2SAT 92–100; BMI 32.8; BMI 32.0
--- NOTE | 2024-01-27 05:49 | CTR_ITS ---
PROCEDURE INFORMATION: Exam: CT Head Without Contrast Exam date and time: 01/27/2024 5:49 AM Age: 58 years old Clinical indication: Stroke-like symptoms; Dizziness/giddiness; Right facial droop; Additional info: Symptoms of acute stroke TECHNIQUE: Imaging protocol: Computed tomography of the head without contrast. Radiation optimization: All CT scans at this facility use at least one of these dose optimization techniques: automated exposure control; mA and/or kV adjustment per patient size (includes targeted exams where dose is matched to clinical indication); or iterative reconstruction. Other technique: STROKE PROTOCOL was implemented. COMPARISON: CT head wo con* [id number] 04/26/2023 2:50 PM RADIATION DOSE METRICS: Total DLP (mGy-cm): 1366 FINDINGS: Brain: No hemorrhage. Periventricular white matter lucency represents atherosclerotic encephalopathic changes. Encephalomalacia in the left temporoparietal lobe, new since the prior study. Cerebral ventricles: No ventriculomegaly. Ventricular prominence proportionate to the degree of atrophy present. Paranasal sinuses: Mucosal thickening in the maxillary sinuses. Mastoid air cells: Visualized mastoid air cells are well aerated. Bones: Unremarkable. No acute fracture. Soft tissues: Unremarkable. Other findings: No mass effect. CT/CT head thrombolytic [id number] IMPRESSION: 1. No acute intracranial abnormality. 2. Encephalomalacia on the left, new since 04/26/2023. ASSESSMENT: ASPECTS (Kelli Stroke Program Early CT Score) is 10. .
--- NOTE | 2024-01-27 05:59 | CTR_ITS ---
PROCEDURE INFORMATION: Exam: CT Abdomen And Pelvis With Contrast Exam date and time: 01/27/2024 5:59 AM Age: 58 years old Clinical indication: Bloating and nausea and vomiting; Additional info: Abd pain/vomitting TECHNIQUE: Imaging protocol: Computed tomography of the abdomen and pelvis with contrast. Radiation optimization: All CT scans at this facility use at least one of these dose optimization techniques: automated exposure control; mA and/or kV adjustment per patient size (includes targeted exams where dose is matched to clinical indication); or iterative reconstruction. Contrast material: [id number]; Contrast volume: 100 ml; Contrast route: INTRAVENOUS (IV); COMPARISON: [place] [id number] 03/28/2023 4:05 PM RADIATION DOSE METRICS: Total DLP (mGy-cm): 936 FINDINGS: Pleural spaces: Small right pleural effusion. Liver: Small scattered hepatic cysts. Gallbladder and biliary ducts: Normal. No calcified stones. No ductal dilation. Pancreas: Normal. No ductal dilation. Spleen: Mild 14 cm splenomegaly. Adrenal glands: Normal. No mass. Kidneys and ureters: Extensive polycystic renal disease. Many of the cysts have calcified mcdaniels. Stomach and bowel: Unremarkable. No obstruction. No mucosal thickening. Appendix: No evidence of appendicitis. Intraperitoneal space: Small/moderate volume ascites. Vasculature: Unremarkable. No abdominal aortic aneurysm. Lymph nodes: Unremarkable. No enlarged lymph nodes. Urinary bladder: Mildly thickened urinary bladder wall. Correlate for cystitis. Reproductive: Unremarkable as visualized. Bones/joints: Unremarkable. No acute fracture. Soft tissues: Unremarkable. CT/CT abdomen pelvis w con* [id number] IMPRESSION: 1. No acute findings. 2. Severe polycystic renal disease with ascites. The findings are similar to what was seen on 03/28/2023. 3. Slightly thickened urinary bladder wall. Correlate for cystitis.
[2024-01-27] MEDS: iohexol 350 mg/mL 500 mL Btl (per mL) IV ×2 (06:04→09:18)
[2024-01-27] MEDS: hyDRALAzine 20 mg/mL INJ 1 mL IVP (06:09)
--- NOTE | 2024-01-27 06:19 | ECG_ITS ---
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 Measurements Intervals Java Rate: 54 P: 73 SC: 224 QRS: -58 QRSD: 124 T: 28 QT: 416 QTc: 397 Interpretive Statements SINUS BRADYCARDIA WITH FIRST DEGREE AV BLOCK LEFT AXIS DEVIATION [QRS AXIS < -30] MODERATE INTRAVENTRICULAR CONDUCTION DELAY [105+ ms QRS DURATION, 80+ ms Q/S IN V1/V2, NO Q AND 60+ ms R IN I/aVL/V5/V6] NONSPECIFIC ST & T-WAVE ABNORMALITY Compared to ECG 06/09/2023 09:21:49 First degree AV block now present Left-axis deviation now present Intraventricular conduction delay now present T-wave abnormality now present Right bundle-branch block no longer present Left anterior fascicular block no longer present Myocardial infarct finding no longer present Electronically Signed On 01-27-2024 14:44:45 CDT by Saurabh Fitzpatrick M.D. [email or web address]
[2024-01-27 06:23] LABS: Glucose Point of Care 106 mg/dL (70-110)
[2024-01-27 06:24] LABS: ABG PCO2 44.3 mmHg (35-45); ABG PH Result 7.42 (7.35-7.45); Arterial Blood Gas Hematocrit 35.5 % (42-52); Base Excess ABG 3.7 mmol/L (-2.0-2.0); Blood Gas Sample Site Brachial, right; Blood Gas Sample Type Arterial; Carboxyhemoglobin 1.3 %THgb (0.4-20.1); HCO3 ABG 28.7 mmol/L (22-26); HGB O2 Sat 98.9 % (95-100); Ionized Calcium Level - ABG 1.3 mmol/L (1.1-1.4); Methemoglobin < 0.0 % (0.4-1.5); Oxygen Device NC; Oxygen Saturation ABG 98.4; PO2 ABG 98.9 mmHg (80.0-100.0); Potassium Level - ABG 3.8 mmol/L (3.5-5.0); Total Hemoglobin 11.6 g/dL (14-18)
[2024-01-27 06:24] LABS: Basophils % 0.3 %; Eosinophils % 0.3 %; Hematocrit 38.5 % (37-53); Lymphocytes # 0.6 10^3/uL (0.8-4.8); Lymphocytes % 9.3 %; Mean Corpuscular HGB Conc 32.2 g/dL (30-55); Mean Corpuscular Hemoglobin 32.2 pg (27-33); Mean Platelet Volume 10.8 fL (7.4-10.4); Monocytes # 0.3 10^3/uL (0.2-0.9); Monocytes % 4.8 %; Neutrophils # 5.69 10^3/uL (1.8-7.7); Nucleated Red Blood Cells % 0 %; Platelet Count 166 10^3/cmm (157-399); Red Blood Count 3.85 10^6/uL (3.85-5.65); Red Cell Distribution Width 14.7 % (12.1-15.1); White Blood Count 6.69 10^3/uL (3.29-11.43)
--- NOTE | 2024-01-27 06:27 | ED_ITS ---
HPI - Neuro Symptoms/Deficit 2 General: Chief Complaint: Neuro Symptoms/Deficit Stated Complaint: stroke alert Time Seen by Provider: 01/27/24 05:49 History of Present Illness: 58-year-old male presents to the emergen cy room with complaints of nausea and vomiting. His blood pressure is markedly elevated. He woke up this morning with dizzy nests nausea and vomiting. He reportedly had a stroke within the last 2 months and was briefly at the long term and now is back home. Repair earlier this COVID over definitive last known well possibly at last night around 7-8 o'clock when he went to bed last night, this is per his report. This would put him at around 10 hours since his last known well at very best that is questionable. He has no definitive deficits. Stroke alert was called in the field on arrival here ICU initially and CT patient had several episodes of bilious vomiting. He denies any hematochezia or melena no chest pain he has been mildly short of breath but in part that was due to the fact his oxygen was off for a period of time after he arrived . When his oxygen was reapplied it sat responds quickly. He did have paracentesis 2 days ago and had his regular run of dialysis yesterday he denies any fever sweats or chills no new specific pains at this time. His blood pressure is markedly elevated on arrival. Stroke score at this time is 0. Associated symptoms: Deny chest pain Related Data Home Medications Medication Instructions Recorded Confirmed nitroglycerin 0.4 mg sublingual 0.4 mg sublingual Q5M PRN Chest 06/09/23 01/27/24 tablet (Nitrostat) Pain clonidine HCl 0.1 mg tablet 0.1 mg PO BID PRN high blood 07/13/23 01/27/24 pressure hydralazine 25 mg tablet 25 mg PO DIRECTED 07/13/23 01/27/24 hydroxyzine HCl 25 mg tablet 25 mg PO .Q8HR PRN Itching 07/13/23 01/27/24 acetaminophen 325 mg tablet 650 mg PO QID PRN Pain 09/14/23 01/27/24 patiromer calcium sorbitex 8.4 8.4 g PO DAILY hyperkalemia 01/04/24 01/27/24 gram oral powder packet (Veltassa) sevelamer carbonate 0.8 gram oral 0.8 g PO TID 01/04/24 01/27/24 powder packet vit B,C-folic ac 800 mcg-zinc 12.5 1 tab PO DAILY 01/04/24 01/27/24 mg-selen-D3 2,000 unit-vit E tablet (RenaPlex-D) carvedilol 12.5 mg tablet 12.5 mg PO BID 01/27/24 01/27/24 cinacalcet 60 mg tablet 60 mg PO DAILY 01/27/24 01/27/24 isosorbide mononitrate 30 mg 30 mg PO DAILY 01/27/24 01/27/24 tablet,extended release 24 hr Previous Rx's Medication Instructions Recorded levothyroxine 75 mcg tablet 75 mcg PO DAILY 30 days #60 tabs 02/26/23 amiodarone 400 mg tablet 400 mg PO DAILY #90 tabs 05/21/23 sertraline 50 mg tablet 50 mg PO QAM #90 tabs 05/21/23 Allergies Allergy/AdvReac Type Severity Reaction Status Date / Time Penicillins Allergy ALGY-Anaphy Verified 01/20/24 08:51 laxis Sulfa (Sulfonamide Allergy Unknown Verified 01/20/24 08:51 Antibiotics) fluoxetine [From Prozac] AdvReac Mild stomach Verified 01/20/24 08:51 upset Review of Systems 2 Const: Denies: fever(s) or chills Card: Denies: chest pain Resp: Denies: dyspnea GI: Denies: abdominal pain : Denies: dysuria, urinary frequency or urinary urgency Musc: Denies: neck pain or back pain Skin/Breast: Denies: rash PFSH ED 2 PFSH: Medical History Hypoxia End stage renal disease on dialysis Congestive heart failure Hypertension Hyperkalemia Atrial fibrillation with RVR Unstable angina Acute exacerbation of CHF (congestive heart failure) Acute hyperkalemia Shortness of breath Accelerated hypertension Hypertension Elevated troponin I level Chest pain Altered mental status Malaise Anemia in chronic kidney disease Hypoglycemia Neuropathy, lumbosacral (radicular) End stage renal disease on dialysis Tobacco use disorder Gout Major depressive disorder History of stroke Hypothyroidism GERD (gastroesophageal reflux disease) Dilated aortic root Right bundle branch block (RBBB) on electrocardiogram (ECG) Ascites Nephrogenic ascites, gets regular paracentesis Bilateral hydronephrosis Incomplete bladder emptying Chronic anemia Polycystic kidney disease CVA (cerebral vascular accident) Surgical History AV fistula left arm S/P hemodialysis catheter insertion (03/13/20) 23cm long exchanged right IJ Removed on 06/11/2020 History of colonoscopy 2019 at [facility] History of surgical procedure Peritoneal dialysis catheter placement by Dr. Kamara 2015 Family History Mother Chronic kidney disease (CKD) Stroke Father Cancer lung Brother Hypertension Other End stage renal disease on dialysis Denies family history of Diabetes CAD (coronary artery disease) Clotting disorder Dementia Hyperlipidemia Psychiatric illness Anesthesia complication Bleeding disorder Lung disease Social History Smoking and tobacco/nicotine status: former use of tobacco/nicotine Quit status (tobacco/nicotine): has quit using Alcohol intake: never Substance/Drug Use: current Substance/Drug use frequency: few times a week Marital status: Number of children: 1 Current occupational status: disabled Current gender identity: Male Agree to transfusion: Yes NIH stroke score 2 NIHSS: Level Of Consciousness - 1a: 0 Level Of Consciousness Questions - 1b: Both Correct Level Of Consciousness Commands - 1c: Both Correct Best Gaze - 2: Normal Visual Kahn - 3: No Visual Loss Facial Palsy - 4: N ormal Motor Arm Right - 5: No Drift Motor Arm Left - 5: No Drift Motor Leg Right - 6: No Drift Motor Leg Left - 6: No Drift Limb Ataxia - 7: A bsent Sensory - 8: Normal Best Language - 9: No Aphasia Dysarthia - 10: Normal Extinction And Inattention - 11: 0 Score: Total Score: 0 Physical Exam 2 Const: GENERAL APPEARANCE: cooperative ORIENTATION/CONSCIOUSNESS: Yes awake, Yes oriented to person, Yes oriented to place and Yes oriented to time HENMT: COMMON NORMALS: normocephalic, atraumatic and hearing grossly normal bilaterally HEAD & SCALP: normocephalic and atraumatic Resp: COMMON NORMALS: normal respiratory effort, No retractions, No use of accessory muscles and clear to auscultation bilaterally AUSCULTATION: clear to auscultation bilaterally Cardio: COMMON NORMALS: regular rate, regular rhythm and No murmurs present (Cardio) RATE: regular rate RHYTHM: regular rhythm GI: COMMON NORMALS: Soft to palpation and No hepatosplenomegaly present A USCULTATION: Yes normoactive bowel sounds PALPATION: Yes Soft to palpation, No Tenderness to palpation present (GI), No Guarding due to palpation present (GI) and Yes No hepatosplenomegaly present Extremity: COMMON NORMALS: normal to inspection, capillary refill normal, no clubbing, cyanosis or edema, no calf tenderness and no pedal edema Neuro: SENSORIUM/ORIENTATION: Yes oriented to person, Yes oriented to place and Yes oriented to time Skin: COMMON NORMALS: no rashes or lesions noted GENERAL SKIN EXAM: no rashes or lesions noted Course 2 Vital Signs: Vital signs: Vital Signs Temperature 97.1 F L 01/27/24 06:15 Pulse Rate 60 01/27/24 10:16 Respiratory Rate 20 H 01/27/24 09:31 Blood Pressure 149/75 01/27/24 10:16 Pulse Oximetry 100 01/27/24 10:16 Oxygen Delivery Me thod Nasal Cannula 01/27/24 09:31 Oxygen Flow Rate 3 01/27/24 09:31 MDM - Neuro Symptoms/Deficit Medical Decision Making Initially patient came in as a stroke alert. He was seen in the CT suite. However he does not have any acute deficits. EMS reported yellow bit of right- sided drift manage Dr. Heydi Beltran noted this. He complained of nausea vomiting and dizziness. He did vomit several times in the CT suite. All of his extremities moving normally. Patient significant hypertension when he first arrived he is not taking his medications. He does have encephalomalacia of an old stroke on the left side. he tells me he was seen here earlier 2 months ago. However there is no record of it. I did have a director of community services check to see if there is a second chart that had not been merged and we could not find any other chart that the visit might have been filed under a different electronic number. He definitely has had a stroke since April 2023 and there are changes of encephalomalacia these are not new. Reviewed his chart to Dr. Soliz and I could find any previous workup for the stroke. He was given all of his regular blood pressure medications this morning in the emergency room. He also had a CT of his abdomen pelvis because of his persistent nausea vomiting it showed ascites he had ascites drained 2 days ago. Not show any new acute pathology on the CT of his abdomen pelvis. Will admit for further workup of old CVA. His stroke score is essentially 0 at this point. . I did reassess the patient he has not had any evolution or change. Given we do not have adequate documentation as he has not had further workup his blood pressure is accelerated and is having persistent nausea and vomiting will admit for further evaluation. Additionally he will have a CTA of his head and neck he is already had a CT of his abdomen may need earlier dialysis. Discussed with hospitalist orders written Lab Data 01/27/24 06:00 01/27/24 06:[address] 01/27/24 05:49 IMPRESSION: 1. No acute intracranial abnormality. 2. Encephalomalacia on the left, new since 04/26/2023. ASSESSMENT: ASPECTS ([place]elli Stroke Program Early CT Score) is 10. . Abdomen/Pelvis CT 01/27/24 05:59 IMPRESSION: 1. No acute findings. 2. Severe polycystic renal disease with ascites. The findings are similar to what was seen on 03/28/2023. 3. Slightly thickened urinary bladder wall. Correlate for cystitis. Chest X-Ray 01/27/24 07:28 Impression: There is cardiomegaly with diffuse increased interstitial markings noted, particularly on the left. Asymmetric edema versus pneumonia could have this appearance. Head/Neck CTA 01/27/24 07:39 IMPRESSION: 1. RIGHT cervical ICA stenosis 50 to 60%. 2. LEFT cervical ICA stenosis 50 to 60%. 3. Dense calcified plaque to the cavernous carotid arteries estimated stenosis 50%. 4. No cerebral occlusions and no aneurysm. 5. Slight paucity of vessels in the distal LEFT MCA territory at the site of a remote infarct. No acute thrombus. Laboratory Results WBC 6.69 10^3/uL (3.29-11.43) 01/27/24 06:00 RBC 3.85 10^6/uL (3.85-5.65) 01/27/24 06:00 Hgb 12.40 g/dL (11.27-16.99) 01/27/24 06:00 Hct 38.5 % (37-53) 01/27/24 06:00 MCV 100.0 fl (82-101) 01/27/24 06:00 MCH 32.2 pg (27-33) 01/27/24 06:00 MCHC 32.2 g/dL (30-55) 01/27/24 06:00 RDW 14.7 % (12.1-15.1) 01/27/24 06:00 Plt Count 166 10^3/cmm (157-399) 01/27/24 06:00 MPV 10.8 fL (7.4-10.4) H 01/27/24 06:00 Neut % (Auto) 85.0 % 01/27/24 06:00 Lymph % (Auto) 9.3 % 01/27/24 06:00 Mckinley % (Auto) 4.8 % 01/27/24 06:00 Eos % (Auto) 0.3 % 01/27/24 06:00 Baso % (Auto) 0.3 % 01/27/24 06:00 Neut # (Auto) 5.69 10^3/uL (1.8-7.7) 01/27/24 06:00 Lymph # (Auto) 0.6 10^3/uL (0.8-4.8) L 01/27/24 06:00 Mckinley # (Auto) 0.3 10^3/uL (0.2-0.9) 01/27/24 06:00 Eos # (Auto) 0.0 10^3/uL (0.0-0.8) 01/27/24 06:00 Baso # (Auto) 0.0 10^3/uL (0.0-0.1) 01/27/24 06:00 Nucleated RBC % (auto) 0 % 01/27/24 06:00 Nucleated RBCs # 0.0 /100WBC 01/27/24 06:00 PT 14.90 SECONDS (12.1-14.9) 01/27/24 06:00 INR 1.14 (0.8-1.2) 01/27/24 06:00 APTT 37.7 SECONDS (23.9-36.7) H 01/27/24 06:00 D-Dimer 0.91 ug/mLFEU (0-0.59) H 01/27/24 06:00 Specimen Type Arterial 01/27/24 06:14 Sample Site Brachial, right 01/27/24 06:14 ABG pH 7.42 (7.35-7.45) 01/27/24 06:14 ABG pCO2 44.3 mmHg (35-45) 01/27/24 06:14 ABG pO2 98.9 mmHg (80.0-100.0) 01/27/24 06:14 ABG HCO3 28.7 mmol/L (22-26) H 01/27/24 06:14 ABG O2 Saturation 98.4 01/27/24 06:14 ABG Base Excess 3.7 mmol/L (-2.0-2.0) H 01/27/24 06:14 Denis Test N/a 01/27/24 06:14 A-a O2 Gradient Not Reportable 01/27/24 06:14 Hematocrit 35.5 % (42-52) L 01/27/24 06:14 Hgb O2 Saturation 98.9 % (95-100) 01/27/24 06:14 Carboxyhemoglobin 1.3 %THgb (0.4-20.1) 01/27/24 06:14 Methemoglobin < 0.0 % (0.4-1.5) L 01/27/24 06:14 Total Hemoglobin 11.6 g/dL (14-18) L 01/27/24 06:14 Sodium 139.0 mmol/L (131-143) 01/27/24 06:14 Potassium 3.8 mmol/L (3.5-5.0) 01/27/24 06:14 Glucose 118.0 mg/dL (70-115) H 01/27/24 06:14 Ionized Calcium 1.3 mmol/L (1.1-1.4) 01/27/24 06:14 O2 Delivery Device Nc 01/27/24 06:14 O2 Liters/Min 3.0 % 01/27/24 06:14 [place] Operator ID [email or web address] 01/27/24 06:14 Sodium 141 mmol/L (136-145) 01/27/24 06:00 Potassium 3.9 mmol/L (3.5-5.1) 01/27/24 06:00 Chloride 101 mmol/L (98-107) 01/27/24 06:00 Carbon Dioxide 26 mmol/L (22-29) 01/27/24 06:00 Anion Gap 17.9 (5-19) 01/27/24 06:00 BUN 11 mg/dL (6-20) 01/27/24 06:00 Creatinine 3.2 mg/dL (0.7-1.2) H 01/27/24 06:00 GFR Calculation 20.1 mL/min (90-130) L 01/27/24 06:00 Glucose 112 mg/dL (65-115) 01/27/24 06:00 POC Glucose 106 mg/dL (70-110) 01/27/24 05:50 Estimat Average Glucose 74 01/27/24 06:00 Hemoglobin A1c 4.2 % (4.0-6.0) 01/27/24 06:00 Calculated Osmolality 292 mOsm/kg (285-295) 01/27/24 06:00 Calcium 9.8 mg/dL (8.5-10.5) 01/27/24 06:00 Magnesium 2.2 mg/dL (1.7-2.3) 01/27/24 06:00 Total Bilirubin 0.7 mg/dL (0.15-1.2) 01/27/24 06:00 AST 13 U/L (0-40) 01/27/24 06:00 ALT 6 U/L (0-41) 01/27/24 06:00 Alkaline Phosphatase 166 U/L (40-130) H 01/27/24 06:00 Total Protein 6.6 g/dL (6.6-8.7) 01/27/24 06:00 Albumin 3.5 g/dL (3.5-5.2) 01/27/24 06:00 Globulin 3.1 g/dL (1.3-4.6) 01/27/24 06:00 Lipase 29 U/L (13-60) 01/27/24 06:00 Procalcitonin 0.15 ng/mL (0-0.5) 01/27/24 06:00 TSH 6.93 uIU/mL (0.27-4.20) H 01/27/24 06:00 Urine Color Yellow (Yellow) 01/27/24 06:45 Urine Appearance Clear (CLEAR) 01/27/24 06:45 Urine pH 8.0 (5-7) A 01/27/24 06:45 Ur Specific [place] 1.018 (1.005-1.030) 01/27/24 06:45 Urine Protein 3+ (Negative) A 01/27/24 06:45 Urine Glucose (UA) Trace (Normal) H 01/27/24 06:45 Urine Ketones Negative (Negative) 01/27/24 06:45 Urine Blood Negative (Negative) 01/27/24 06:45 Urine Nitrate Negative (Negative) 01/27/24 06:45 Urine Bilirubin Negative (Negative) 01/27/24 06:45 Urine Urobilinogen 0.2 mg/dL (Negative) 01/27/24 06:45 Ur Leukocyte Esterase Negative (Negative) 01/27/24 06:45 Urine RBC 0-4 /hpf (0-2) H 01/27/24 06:45 Urine WBC 0-4 /hpf (0-5) H 01/27/24 06:45 Ur Squamous Epith Cells Rare /hpf (0-5) 01/27/24 06:45 Amorphous Sediment Not Reportable 01/27/24 06:45 Urine Bacteria None /hpf (NONE) 01/27/24 06:45 Urine Opiates Screen Negative ng/mL (Negative) 01/27/24 06:45 Ur Barbiturates Screen Negative ng/mL (Negative) 01/27/24 06:45 Ur Phencyclidine Scrn Negative ng/mL (Negative) 01/27/24 06:45 Ur Amphetamines Screen Negative ng/mL (Negative) 01/27/24 06:45 U Benzodiazepines Scrn Negative ng/mL (Negative) 01/27/24 06:45 Urine Cocaine Screen Negative ng/mL (Negative) 01/27/24 06:45 U Marijuana (THC) Screen Positive ng/mL (Negative) H 01/27/24 06:45 Ethyl Alcohol < 10 mg/dL (0-10) 01/27/24 06:00 All radiology interpretation(s) finalized by discharge Discharge Plan Discharge Patient Disposition: Admitted As Inpatient Admit Provider: Richie Loaiza Clinical Impression: Dizziness, Ascites, End stage renal disease on dialysis, Congestive heart failure, Arterial ischemic stroke, MCA, left, remote, resolved, Hypertension, Cannabis use disorder Condition: Stable Coding Level of Care Code ED School Janitor for Eric Sandhu
[2024-01-27 06:30] LABS: Partial Thromboplastin Time 37.7 SECONDS (23.9-36.7)
[2024-01-27 06:35] LABS: Alanine Aminotransferase 6 U/L (0-41); Albumin Level 3.5 g/dL (3.5-5.2); Alkaline Phosphatase 166 U/L (40-130); Anion Gap 17.9 (5-19); Aspartate Amino Transferase 13 U/L (0-40); Blood Urea Nitrogen 11 mg/dL (6-20); Calcium 9.8 mg/dL (8.5-10.5); Carbon Dioxide 26 mmol/L (22-29); Chloride 101 mmol/L (98-107); Creatinine Clr Calc Pharmacy 27.6756; Globulin 3.1 g/dL (1.3-4.6); Glomerular Filtration Rate 20.1 mL/min (90-130); Glucose 112 mg/dL (65-115); Magnesium 2.2 mg/dL (1.7-2.3); Osmolality Calculated 292 mOsm/kg (285-295); Potassium 3.9 mmol/L (3.5-5.1); Sodium 141 mmol/L (136-145); Total Bilirubin 0.7 mg/dL (0.15-1.2); Total Protein 6.6 g/dL (6.6-8.7)
--- NOTE | 2024-01-27 06:37 | P.CONIM_ITS ---
Providers/Reason For Consult 2 Consulting Physician/Specialty*: Issac Soliz MD neurology and epilepsy Reason for Consult*: Code stroke/acute care emergency department room #11 Primary Care Provider: Randolph Ortiz MD History of Present Illness History of Present Illness Navneet Savage is a 58 year old male with a history of stroke 2 months ago, abnormal noncontrast head CT secondary to Encephalomalacia in the left temporoparietal lobe, new since 04/26/2023, atrial fibrillation, end-stage renal disease on hemodialysis, left AV fistula graft, history of alcohol abuse with liver failure associated with ascites requiring weekly ascites drainage ascites drainage, last ascites drainage 01/25/2024 for and last hemodialysis 01/26/2024. The patient's last known well could not be determined. Patient was reported to awakened this morning with severe nausea and vomiting and dizziness. EMS was contacted and the patient was brought to [facility] emergency department. EMS was reported to noticed the patient had a questionable facial droop which was later determined was secondary to remote stroke 2 months prior to presenting to the [facility] emergency department on 01/26/2024. Currently the patient is alert and oriented to person and situation and was in no apparent distress. Neurological examination nonfocal except for questionable right lower facial weakness which the patient reports is remote from a stroke 2 months ago. NIH score = 0. Glucose 118 Blood pressure in the emergency room 220/115 O2 saturation is 97% on 3 L of oxygen heart rate 56. Drug allergies: Penicillin which resulted in anaphylaxis Sulfa (sulfonamide antibiotics) type reaction unknown Prozac which resulted in GI upset Current medications: Tylenol 650 mg p.o. 4 times daily, as needed Amiodarone 400 mg p.o. daily Carvedilol 12.5 mg p.o. twice daily Cinacalcet 60 mg p.o. daily Clonidine 0.1 mg p.o. twice daily, as needed elevated blood pressure Hydralazine 25 mg p.o. as needed Hydroxyzine 25 mg p.o. every 8 hours as needed for itching Hydroxyzine 50 mg p.o. nightly as needed for itching Isosorbide mononitrate 30 mg p.o. daily Synthroid 75 mcg p.o. daily Nitrostat 0.4 mg sublingual every 5 minutes as needed for chest pain Veltassa 8.4 mg p.o. daily for hyperkalemia Zoloft 50 mg p.o. daily Sevelamer 0.8 mg p.o. 3 times daily RenaPlex 1 p.o. daily Past medical history: Atrial fibrillation Congestive heart failure Remote left cerebral infarction involving the left parietal temporal region with encephalomalacia changes in the same regions Remote left cerebral infarction 2 months ago (November 2023) End-stage renal disease on hemodialysis Left AV fistula graft for hemodialysis Hypertension Liver disease with ascites requiring ascites drainage weekly Hypothyroidism History of alcohol abuse Major depressive disorder Nocturnal enuresis Gastroesophageal reflux disease Gout Cannabis use disorder Neuropathy Lumbosacral radiculopathy Itching Ventricular tachycardia Polycystic kidney GI bleed Habits: Unknown Family history: Mother Chronic kidney disease (CKD) Stroke Father Cancer lung Brother Hypertension Other End stage renal disease on dialysis Review of Systems 2 General: Reports: 10 or more systems reviewed and unremarkable except in HPI and below Medications/Allergies Home Medications Medication Instructions Recorded Confirmed Last Taken Type isosorbide mononitrate 60 mg 30 mg PO QAM 02/08/23 01/20/24 01/24/24 History tablet,extended release 24 hr levothyroxine 75 mcg tablet 75 mcg PO DAILY 30 days #60 tabs 02/26/23 01/20/24 01/24/24 Rx carvedilol 25 mg tablet 12.5 mg PO BID 03/22/23 01/20/24 01/24/24 History amiodarone 400 mg tablet 400 mg PO DAILY #90 tabs 05/21/23 01/20/24 01/24/24 Rx sertraline 50 mg tablet 50 mg PO QAM #90 tabs 05/21/23 01/20/24 01/24/24 Rx hydroxyzine HCl 50 mg tablet 50 mg PO BEDTIME PRN Itching 06/09/23 01/20/24 01/24/24 History nitroglycerin 0.4 mg sublingual 0.4 mg sublingual Q5M PRN Chest 06/09/23 01/20/24 01/24/24 History tablet (Nitrostat) Pain clonidine HCl 0.1 mg tablet 0.1 mg PO BID PRN high blood 07/13/23 01/20/24 01/24/24 History pressure hydralazine 25 mg tablet 25 mg PO DIRECTED 07/13/23 01/20/24 01/24/24 History hydroxyzine HCl 25 mg tablet 25 mg PO .Q8HR PRN Itching 07/13/23 01/20/24 01/24/24 History acetaminophen 325 mg tablet 650 mg PO QID PRN Pain 09/14/23 01/25/24 01/24/24 History cinacalcet 30 mg tablet 60 mg PO QAM 09/14/23 01/20/24 01/24/24 History hydralazine 25 mg tablet 25 mg PO DIRECTED 09/14/23 01/20/24 01/24/24 History patiromer calcium sorbitex 8.4 8.4 g PO DAILY hyperkalemia 01/04/24 01/20/24 01/24/24 History gram oral powder packet (Veltassa) sevelamer carbonate 0.8 gram oral 0.8 g PO TID 01/04/24 01/20/24 01/24/24 History powder packet vit B,C-folic ac 800 mcg-zinc 12.5 1 tab PO DAILY 01/04/24 01/20/24 01/24/24 History mg-selen-D3 2,000 unit-vit E tablet (RenaPlex-D) Allergies Allergy/AdvReac Type Severity Reaction Status Date / Time Penicillins Allergy ALGY-Anaphy Verified 01/20/24 08:51 laxis Sulfa (Sulfonamide Allergy Unknown Verified 01/20/24 08:51 Antibiotics) fluoxetine [From Prozac] AdvReac Mild stomach Verified 01/20/24 08:51 upset PFSH Acute 2 PFSH: Medical History (Updated 01/27/24 @ 07:03 by Issac Soliz MD) Hypoxia End stage renal disease on dialysis Congestive heart failure Hypertension Hyperkalemia Atrial fibrillation with RVR Unstable angina Acute exacerbation of CHF (congestive heart failure) Acute hyperkalemia Shortness of breath Accelerated hypertension Hypertension Elevated troponin I level Chest pain Altered mental status Malaise Anemia in chronic kidney disease Hypoglycemia Neuropathy, lumbosacral (radicular) End stage renal disease on dialysis Tobacco use disorder Gout Major depressive disorder History of stroke Hypothyroidism GERD (gastroesophageal reflux disease) Dilated aortic root Right bundle branch block (RBBB) on electrocardiogram (ECG) Ascites Nephrogenic ascites, gets regular paracentesis Bilateral hydronephrosis Incomplete bladder emptying Chronic anemia Polycystic kidney disease CVA (cerebral vascular accident) Surgical History AV fistula left arm S/P hemodialysis catheter insertion (03/13/20) 23cm long exchanged right IJ Removed on 06/11/2020 History of colonoscopy 2019 at [facility] History of surgical procedure Peritoneal dialysis catheter placement by Dr. Kamara 2015 Family History Mother Chronic kidney disease (CKD) Stroke Father Cancer lung Brother Hypertension Other End stage renal disease on dialysis Denies family history of Diabetes CAD (coronary artery disease) Clotting disorder Dementia Hyperlipidemia Psychiatric illness Anesthesia complication Bleeding disorder Lung disease Social History Smoking and tobacco/nicotine status: former use of tobacco/nicotine Quit status (tobacco/nicotine): has quit using Alcohol intake: never Substance/Drug Use: current Substance/Drug use frequency: few times a week Marital status: Number of children: 1 Current occupational status: disabled Current gender identity: Male Agree to transfusion: Yes Vitals/I&O/Wt Last Vital Signs Temp 97.1 F L 01/27/24 06:15 Pulse 55 L 01/27/24 06:27 Resp 22 H 01/27/24 06:27 BP 196/111 01/27/24 06:27 Pulse Ox 99 01/27/24 06:27 O2 Del Method Nasal Cannula 01/27/24 06:27 O2 Flow Rate 4 01/27/24 06:27 Weight last 48 hrs Weight 210 lb Physical Exam 2 Narrative: NIH score = 0 Glucose 118 Blood pressure 220/115 O2 saturations 97% on 3 L heart rate 56 The patient is alert and oriented to person place and situation. Head atraumatic. Neck supple. Cranial nerves II through XII revealed questionable remote right lower facial weakness from previous stroke 2 months ago. Pupils 4 mm round reactive to light and accommodation. Extraocular movements intact. Motor examination grossly nonfocal. Plantar responses flexor bilaterally. There was no clonus. Sensory examination was intact to touch. There was no extinction on double sensory stimulation. Throat clear. Lungs negative for obvious wheezes. Heart bradycardia. Abdomen revealed ascites. Extremities were negative for cyanosis. Data 01/27/24 06:00 01/27/24 06:00 A&P Assessment and plan (1) Dizziness: Impression: 1. Dizziness. Note: Since the patient's last known well could not be determined since the patient woke up on 01/27/2024 complaining of dizziness with nausea and vomiting and NIH score =0 and patient has history of stroke 2 months ago (November 2023), and history of liver failure with ascites, patient was not a candidate for intravenous thrombolytics and no intravenous thrombolytics were administered. 2. Nausea and vomiting 3. Remote left MCA distribution stroke with encephalomalacia changes in the parietal and temporal region 4. History of left hemispheric stroke November 2023 5. Atrial fibrillation with rapid ventricular response 6. End-stage renal disease on hemodialysis 7. Left arteriovenous fistula graft for hemodialysis 8. Liver failure with ascites requiring ascites drainage weekly 9. Hypertension with elevated blood pressure/hypertensive urgency Plan: 1. Recommend obtaining carotid duplex study to assess for carotid or vertebral artery stenosis 2. Recommend obtaining repeat 2D echocardiogram since the study performed on 06/09/2023 revealed small sized pericardial effusion compared to the previous 2D echocardiogram performed on January 2023 and obtain cardiology evaluation if indicated 3. In view of the patient's history of liver failure with ascites requiring weekly ascites drainage, recommend obtaining recommendations from GI physician to determine if patient is a candidate for low-dose aspirin and cholesterol- lowering agents per NIH stroke protocol since patient has history of recurrent remote strokes. 4. Recommend obtaining cardiology input for history of atrial fibrillation if indicated 5. Address hypertensive urgency 6. Fall precautions 7. Give patient patient's family stroke pamphlet (2) Arterial ischemic stroke, MCA, left, remote, resolved: Consult Attestations 2 Medical Necessity Statement: The patient was evaluated by neurology for code stroke/acute care emergency department room #11 Coding Level of Care Code 88123 Diagnoses Dizziness R42 Arterial ischemic stroke, MCA, left, remote, resolved Z86.73
[2024-01-27 06:53] LABS: Charge for UA Resulting for Rev
[2024-01-27 06:54] LABS: Lipase 29 U/L (13-60)
[2024-01-27 06:56] LABS: Bilirubin Urine Negative (Negative); Blood Urine Negative (Negative); Glucose Urine UA Trace (Normal); Ketones Urine Negative (Negative); Leukocyte Esterase Urine Negative (Negative); Nitrate Urine Negative (Negative); Specific Gravity, Urine 1.018 (1.005-1.030); Urine Appearance Clear (CLEAR); Urine Color Yellow (Yellow); Urobilinogen Urine 0.2 mg/dL (Negative)
[2024-01-27 07:02] LABS: INR 1.14 (0.8-1.2)
[2024-01-27 07:02] LABS: Amphetamines Screen Urine Negative (Negative); Barbiturates Screen Urine Negative (Negative); Benzodiazepines Screen Urine Negative (Negative); Cocaine Screen Urine Negative (Negative); Opiate Screen Urine Negative (Negative); PCP Screen Urine Negative (Negative); THC Screen Urine Positive (Negative)
[2024-01-27 07:16] LABS: Protein Urine 3+ (Negative); RBC Urine 0-4 /hpf (0-2); Squamous Epithelial Cell Urine RARE /hpf (0-5); UA Manual Slide Review YES; UA Slide Review UA Slide Review Perf; WBC Urine 0-4 /hpf (0-5)
[2024-01-27 07:17] LABS: Add Urine Culture? No
--- NOTE | 2024-01-27 07:28 | XR_ITS ---
WS: [id number] Examination: XR chest 1V portable [id number] Reason for Exam: dyspnea/cough Date: 01/27/2024 Comparison: 06/09/2023 Findings: There is marked cardiomegaly. The lung markings are diffusely increased asymmetrically on the left. No large effusion is seen. XR/XR chest 1V portable [id number] Impression: There is cardiomegaly with diffuse increased interstitial markings noted, parti cularly on the left. Asymmetric edema versus pneumonia could have this appearance.
--- NOTE | 2024-01-27 07:39 | CT_ITS ---
WS: [id number] CT ANGIOGRAM CEREBRAL AND CAROTID ARTERIES HISTORY: CVA TECHNIQUE: CT angiogram is performed of the carotid and cerebral arteries. During arterial injection imaging is obtained from the skull vertex to the aortic arch in 1.25 mm imaging. Coronal and sagittal reformats are submitted. Additional multi planar reformats of the carotid and cerebral arteries are submitted, MIP imaging also reviewed. NASCET criteria utilized. [facility] at least one of these dose optimization techniques: automated exposure control; mA and/or kV adjust ment per patient size (includes targeted exams where dose is matched to clinical indication); or iter ative reconstruction. CONTRAST: Omnipaque 350; 100 mL IV. DLP: 552.02 mGy.cm COMPARISON: CT head 01/27/2024 Quality compromised by motion artifact. Carotid Angiogram: Right carotid: Common carotid artery: Tortuous carotid artery. Arises normally from the innominate artery. No signif icant plaque or stenosis. Internal carotid artery: Circumferential plaque at the bifurcation of the cervical carotid artery. St enosis estimated at 50 to 60%. External carotid artery: Patent. Left carotid: Common carotid artery: Arises normally from the aorta. No significant plaque or stenosis. Internal carotid artery: Dense calcified plaque at the bifurcation. Stenosis estimated at 50 to 60%. External carotid artery: Patent. Right vertebral artery: Mild atherosclerosis. No occlusion. Left vertebral artery: Unremarkable. Arises normally from the subclavian artery. Subclavian arteries: Atherosclerotic changes. No high-grade stenosis. Upper thorax: Mild pleural thickening versus a tiny amount of pleural fluid. Thyroid gland: Normal. Osseous structures: Unremarkable. CEREBRAL ANGIOGRAM: Intracranial vertebral arteries: Normal with no significant atherosclerosis. Basilar artery: No significant stenosis or occlusion. No aneurysm. Intracranial Internal carotid arteries: Moderate plaque through the cavernous carotid arteries. Less than 50% stenosis. Middle cerebral arteries: There is slight paucity of vessels at the LEFT MCA territory in the region of the remote infarct. No acute thrombus is identified. Anterior cerebral arteries and ACOM: Normal. Posterior cerebral arteries and PCOM's: Normal. Dural venous sinuses are normally enhancing. Mastoid air cells: Normal. Paranasal sinuses: Mild diffuse mucoperiosteal thickening. Calvarium: Normal. CT/CT angio headneck* [id number] IMPRESSION: 1. RIGHT cervical ICA stenosis 50 to 60%. 2. LEFT cervical ICA stenosis 50 to 60%. 3. Dense calcified plaque to the cavernous carotid arteries estimated stenosis 50%. 4. No cerebral occlusions and no aneurysm. 5. Slight paucity of vessels in the distal LEFT MCA territory at the site of a remote infarct. No acute thrombus.
[2024-01-27] MEDS: metoclopramide 5 mg/mL SDV 2 mL 10 MG IVP (07:47)
--- NOTE | 2024-01-27 07:57 | PC.NURSE ---
PATIENT UP TO RESTROOM, NO STOOL OR URINE PRODUCED. PATIENT PLACED BACK IN BED. MADE COMFORTABLE IN BED.
[2024-01-27] MEDS: cloNIDine 0.1 mg Tablet PO (08:36)
[2024-01-27] MEDS: isosorbide mononitrate ER 30 mg Tablet PO (08:36)
[2024-01-27] MEDS: hyDRALAzine 25 mg Tablet PO ×3 (08:36→22:13)
[2024-01-27] MEDS: amiodarone 200 mg Tablet 400 MG PO (08:37)
[2024-01-27] MEDS: carvedilol 12.5 mg Tablet PO (08:37)
--- NOTE | 2024-01-27 08:47 | PC.PHAR ---
Pt states driver engineer sets up medications for him. Pt states last time meds were taken, yesterday in am. Med list updated via [facility] and current meds on pt chart
[2024-01-27] MEDS: meropenem 1,000 mg SDV 1000 MG IVP ×2 (08:57→22:14)
--- NOTE | 2024-01-27 09:08 | USCV_ITS ---
Navneet Savage Age: 58 Gender: M : 1965 Exam Date: 01/27/2024 09:47 Ordering Phys: Richie Loaiza MD Technologist: Exam Location: [facility] [place] Indication: chf BP: 191 / 99 HR: 75 Rhythm: Sinus Technical Quality: Adequate MEASUREMENTS (Male / Female) Normal Values 2D ECHO LV Diastolic Diameter PLAX 6.3 cm 4.2 - 5.9 / 3.9 - 5.3 cm IVS Diastolic Thickness 1.6 cm 0.6 - 1.0 / 0.6 - 0.9 cm IVS Systolic Thickness 2.0 cm LVPW Diastolic Thickness 1.3 cm 0.6 - 1.0 / 0.6 - 0.9 cm LVPW Systolic Thickness 1.7 cm LVOT Diameter 2.2 cm LV Ejection Fraction 2D Teich 71.3 % LV Ejection Fraction MOD 4C 64.7 % LV Ejection Fraction MOD 2C 73.2 % LV Ejection Fraction 2C AL 74.3 % LA Diameter 5.1 cm RA Systolic Volume 4C AL 83.9 ml RA Systolic Volume 4C MOD 78.3 ml Aorta at Sinotubular Diameter 4.6 cm M-MODE LA Ao Ratio MM 1.1 AV Cusp Separation MM 1.7 cm DOPPLER AV Peak Velocity 225.3 cm/s LVOT Peak Velocity 99.0 cm/s AV Area Cont Eq vti 1.8 cm squared AV Area Cont Eq pk 1.6 cm squared MV Peak Velocity 194.0 cm/s MV Area PHT 4.9 cm squared Mitral E to A Ratio 2.6 TV Peak Velocity 380.5 cm/s TR Peak Velocity 386.0 cm/s TR Peak Gradient 59.6 mmHg TV Peak E Velocity 188.0 cm/s Right Atrial Pressure 3.0 mmHg Pulmonary Artery Systolic Pressu 62.6 mmHg PV Peak Velocity 124.0 cm/s FINDINGS Left Ventricle Normal left ventricular size and systolic function, EF 68%. Mild concentric left hypertrophy. No gross wall motion abnormalities.Grade III/IV diastolic dysfunction (restrictive filling pattern), severely elevated filling pressures. Right Ventricle The right ventricle is normal in size and function. Right Atrium The right atrium is normal in size. Left Atrium Mildly increased left atrial size. Mitral Valve Thickened mitral valve. Moderate mitral annular calcification. Mild to moderate mitral valve regurgitation. Aortic Valve Thickened aortic valve. Features of aortic valve sclerosis Tricuspid Valve Trace tricuspid valve regurgitation. Moderate pulmonary hypertension with an estimated pulmonary artery peak systolic pressure of 63 mmHg Pulmonic Valve No gross abnormalities noted Pericardium Normal pericardium without effusion. Aorta Normal ascending aorta dimension. IVC Normal inferior vena cava. CONCLUSIONS Normal left ventricular size and systolic function, EF 68%. Mild concentric left hypertrophy. No gross wall motion abnormalities.Grade III/IV diastolic dysfunction (restrictive filling pattern), severely elevated filling pressures. Mildly increased left atrial size. Thickened mitral valve. Moderate mitral annular calcification. Mild to moderate mitral valve regurgitation. Trace tricuspid valve regurgitation. Moderate pulmonary hypertension with an estimated pulmonary artery peak systolic pressure of 63 mmHg Features of aortic valve sclerosis. Trace tricuspid valve regurgitation. Moderate pulmonary hypertension with an estimated pulmonary artery peak systolic pressure of 63 mmHg There is no pericardial effusion. There are no intracardiac masses. Compared to the study from 06/09/2023, currently the patient has no pericardial effusion Dr China Wheat MD [facility] (Electronically Signed) Final Date: 27 January 2024 13:24 S
--- NOTE | 2024-01-27 09:13 | P.HP_ITS ---
Providers/Chief Complaint 2 Admitting Physician: Richie Loaiza MD Primary Care Provider: Randolph Ortiz MD Chief Complaint: stroke History of Present Illness Navneet Savage is a 58 year old male with past medical history of end- stage renal disease on hemodialysis, hypertension with history of uncontrolled hypertension, diastolic heart failure, chronically on 2 L of ox supplementation, A-fib with RVR, hypothyroidism, remote history of alcohol abuse, polycystic kidney, ascites with frequent episode of paracentesis. He presents to the ER today because of nausea and vomiting which started when he woke up in the morning today associated with generalized weakness. As per the patient he was not able to move his limbs so he presented to the ER and stroke code was called. As patient's last known well was last night around 7 PM he was deemed not a candidate for thrombolytics. Neurology was consulted. In the ER he was also found to have uncontrolled hypertension for which she was given his home medications including 400 mg of amiodarone, Coreg 12.5 mg, clonidine 0.1, oral hydralazine 25 mg, 20 mg of IV hydralazine and Imdur 30 mg. When seen on the floor patient is awake and alert though drowsy but able to have complete conversation. He is currently on 3 L of oxygen supplementation with bradycardia and heart rate running in 50s and systolic blood pressure of 105 mmHg. His last hemodialysis was on 01/25 and paracentesis around 2 days ago. He currently denies any difficulty in breathing, chest pain, fever, diarrhea, abdominal pain. As per patient his vomiting started earlier today morning. He did not have any vomiting last night. Denies any sick contacts. Denies any hematochezia or hematemesis. Review of Systems 2 General: Reports: 10 or more systems reviewed and unremarkable except in HPI and below Const: Denies: fever(s), chills, body aches, change in appetite, change in weight, malaise, night sweats, diaphoresis, change in sleep pattern, daytime sleepiness or snoring Eyes: Denies: change in vision, blurry vision, photophobia, eye discomfort or eye discharge ENMT: Denies: throat pain, enlarged tonsils, hoarseness, mouth pain, oral sores, dry mouth, tinnitus, nasal congestion or post nasal drip Card: Denies: chest pain, palpitations, irregular heart rhythm, edema, swelling of feet/ankles, lightheadedness, syncope, pre-syncope, dyspnea on exertion, orthopnea, leg pain with exertion or acrocyanosis Resp: Denies: dyspnea, productive cough, non-productive cough, wheezing, stridor, pain on inspiration, change in phlegm color, hemoptysis or chest congestion GI: Denies: abdominal pain, nausea, vomiting, hematemesis, coffee ground emesis, dysphagia, heartburn, diarrhea, constipation, bloating, GI cramping, change in bowel habits, pain on defecation, hematochezia or melena : Denies: flank pain, difficulty urinating, dysuria, urinary frequency, urinary urgency, urinary hesitancy, urinary dribbling, difficulty starting urination, change in urine stream, nocturia or hematuria Musc: Denies: neck pain, back pain, extremity pain, joint pain, joint swelling, joint redness, joint stiffness or limited range of motion Neuro: Denies: headache(s), numbness in extremities, weakness in extremities, sensory changes, lack of coordination, difficulty walking, frequent falls, dizziness, vertigo, confusion, Slurred speech present, difficulty communicating thoughts or seizure-like activity Psych: Denies: anxiety, depression, mood swings, panic attacks, hopelessness or irritability Endo: Denies: polyuria, polydipsia, tired all the time, cold intolerance, excessive sweating, flushing or heat intolerance Lucas/Lymph: Denies: easy bruising or easy bleeding All/Imm: Denies: tongue swelling, facial swelling or acute wheezing Medications/Allergies Home Medications Medication Instructions Recorded Confirmed Last Taken Type levothyroxine 75 mcg tablet 75 mcg PO DAILY 30 days #60 tabs 02/26/23 01/27/24 01/26/24 Rx amiodarone 400 mg tablet 400 mg PO DAILY #90 tabs 05/21/23 01/27/24 01/26/24 Rx sertraline 50 mg tablet 50 mg PO QAM #90 tabs 05/21/23 01/27/24 01/26/24 Rx nitroglycerin 0.4 mg sublingual 0.4 mg sublingual Q5M PRN Chest 06/09/23 01/27/24 01/24/24 History tablet (Nitrostat) Pain clonidine HCl 0.1 mg tablet 0.1 mg PO BID PRN high blood 07/13/23 01/27/24 01/24/24 History pressure hydralazine 25 mg tablet 25 mg PO DIRECTED 07/13/23 01/27/24 01/26/24 History hydroxyzine HCl 25 mg tablet 25 mg PO .Q8HR PRN Itching 07/13/23 01/27/24 01/24/24 History acetaminophen 325 mg tablet 650 mg PO QID PRN Pain 09/14/23 01/27/24 01/24/24 History patiromer calcium sorbitex 8.4 8.4 g PO DAILY hyperkalemia 01/04/24 01/27/24 01/24/24 History gram oral powder packet (Veltassa) sevelamer carbonate 0.8 gram oral 0.8 g PO TID 01/04/24 01/27/24 01/24/24 History powder packet vit B,C-folic ac 800 mcg-zinc 12.5 1 tab PO DAILY 01/04/24 01/27/24 01/24/24 History mg-selen-D3 2,000 unit-vit E tablet (RenaPlex-D) carvedilol 12.5 mg tablet 12.5 mg PO BID 01/27/24 01/27/24 01/26/24 History cinacalcet 60 mg tablet 60 mg PO DAILY 01/27/24 01/27/24 01/26/24 History isosorbide mononitrate 30 mg 30 mg PO DAILY 01/27/24 01/27/24 01/26/24 History tablet,extended release 24 hr Allergies Allergy/AdvReac Type Severity Reaction Status Date / Time Penicillins Allergy ALGY-Anaphy Verified 01/20/24 08:51 laxis Sulfa (Sulfonamide Allergy Unknown Verified 01/20/24 08:51 Antibiotics) fluoxetine [From Prozac] AdvReac Mild stomach Verified 01/20/24 08:51 upset PFSH Acute 2 PFSH: Medical History (Updated 01/27/24 @ 14:40 by Richie Loaiza MD) Hypoxia End stage renal disease on dialysis Congestive heart failure Hypertension Hyperkalemia Atrial fibrillation with RVR Unstable angina Acute exacerbation of CHF (congestive heart failure) Acute hyperkalemia Shortness of breath Accelerated hypertension Hypertension Elevated troponin I level Chest pain Altered mental status Malaise Anemia in chronic kidney disease Hypoglycemia Neuropathy, lumbosacral (radicular) End stage renal disease on dialysis Tobacco use disorder Gout Major depressive disorder History of stroke Hypothyroidism GERD (gastroesophageal reflux disease) Dilated aortic root Right bundle branch block (RBBB) on electrocardiogram (ECG) Ascites Nephrogenic ascites, gets regular paracentesis Bilateral hydronephrosis Incomplete bladder emptying Chronic anemia Polycystic kidney disease CVA (cerebral vascular accident) Surgical History AV fistula left arm S/P hemodialysis catheter insertion (03/13/20) 23cm long exchanged right IJ Removed on 06/11/2020 History of colonoscopy 2019 at [facility] History of surgical procedure Peritoneal dialysis catheter placement by Dr. Kamara 2015 Family History Mother Chronic kidney disease (CKD) Stroke Father Cancer lung Brother Hypertension Other End stage renal disease on dialysis Denies family history of Diabetes CAD (coronary artery disease) Clotting disorder Dementia Hyperlipidemia Psychiatric illness Anesthesia complication Bleeding disorder Lung disease Social History Smoking and tobacco/nicotine status: former use of tobacco/nicotine Quit status (tobacco/nicotine): has quit using Alcohol intake: never Substance/Drug Use: current Substance/Drug use frequency: few times a week Marital status: Number of children: 1 Current occupational status: disabled Current gender identity: Male Agree to transfusion: Yes Vitals/I&O/Wt Last Vital Signs Temp 97.1 F L 01/27/24 06:15 Pulse 59 L 01/27/24 09:01 Resp 20 H 01/27/24 09:01 BP 177/100 01/27/24 09:01 Pulse Ox 97 01/27/24 09:01 O2 Del Method Nasal Cannula 01/27/24 09:01 O2 Flow Rate 3 01/27/24 09:01 Weight last 48 hrs Weight 95.254 kg Physical Exam 2 Narrative: General: No acute distress, AO x3, chronically sick appearing on 3 days of oxygen supplementation, bradycardia HEENT: PERRLA, pupils bilaterally equal and reactive Chest: Normal vesicular breath sounds, no added sounds, equal good air entry bilaterally CVS: S1-S2 irregularly irregular, soft pansystolic murmur present in fourth intercostal left retrosternal region, bradycardia, no gallops, no rubs Abdomen: Soft, nontender, no organomegaly, bowel sounds present Neuro: No focal deficits, no facial deformity, AO x3, power 5/5 in all limbs Data 01/27/24 06:00 01/27/24 06:00 Micro: Microbiology 01/27/24 08:50 Blood Culture - Preliminary Blood SPECIMEN COLLECTED 01/27/24 08:55 Blood Culture - Preliminary Blood SPECIMEN COLLECTED A&P Assessment and plan (1) Bradycardia: With history of A-fib in the past. Currently on amiodarone 400 mg daily along with Coreg. Patient drowsy on examination with ongoing bradycardia. For now we will hold off on beta-julee. Change amiodarone to 100 mg daily. (2) Atrial fibrillation with RVR: As above. Chronically not on anticoagulation because of history of GI bleed. (3) Hypoxia: Most likely in setting of diastolic congestive heart failure in setting of hypertensive emergency and left lower lobe pneumonia. Of note supplementation keeping saturation over 90%. (4) Left lower lobe pneumonia: Check sputum culture, respiratory viral panel, blood culture, urine Legionella, bacterial antigen. History of MRSA negative in the past. Check MRSA swab. For now start patient on IV meropenem 1 g twice daily. Patient is allergic to penicillin. Start on oral azithromycin 5 mg oral daily for atypical coverage. DuoNeb every 6 hours, Pulmicort twice daily. Aggressive pulmonary toilet incentive spirometry. (5) Hypertensive urgency: With presenting blood pressure of more than 200 mmHg. Goal blood pressure less than 140/90 mmHg with mean over 65. Holding off on beta-julee as above. Continue with home dose of Imdur. Change hydralazine 25 mg 3 times daily. Will uptitrate medication as per goal blood pressures. (6) Congestive heart failure: Strict input charting, daily weights. Monitor blood pressure. Will consult nephrology for hemodialysis. (7) Arterial ischemic stroke, MCA, left, remote, resolved: CT head shows encephalomalacia on the left which is new since . Will plan for CTA head and neck, echocardiogram. Check A1c, lipid panel. Start on aspirin 81 mg daily, atorvastatin 20 mg daily. No need for permissible hypertension given remote stroke. Speech evaluation, PT and OT evaluation. (8) ESRD (end stage renal disease) on dialysis: Will consult nephrology for hemodialysis. Last hemodialysis on 01/25. (9) Hypertension: (10) Nausea and vomiting: Could be in setting of hypertensive urgency. Cycle troponins. CT abdomen pelvis done in the ER negative for pathology. No liver dysfunction. Check hepatitis panel. Check urine drug screen. Zofran as needed, Protonix twice daily. (11) Dizziness: Plan CODE STATUS: Full code Patient's friend Kayla will be the DPOA. NPO. Restart diet as per speech evaluation. Will be cardiac diet. Protonix be sufficient for PUD prophylaxis Heparin 5000 every 12 hours for DVT prophylaxis. Attestations 2 Medical Necessity Statement*: Admission for more than 2 midnights for management of hypoxic respiratory failure in setting of aspiration pneumonia, diastolic heart failure, remote left MCA infarct, hypertensive urgency in a patient with baseline residual disease on hemodialysis. Diagnoses Bradycardia R00.1 Atrial fibrillation with RVR I48.91 Hypoxia R09.02 Left lower lobe pneumonia J18.9 Hypertensive urgency I16.0 Congestive heart failure I50.9 Arterial ischemic stroke, MCA, left, remote, resolved Z86.73 ESRD (end stage renal disease) on dialysis N18.6; Z99.2 Hypertension, unspecified type I10 Nausea and vomiting R11.2 Dizziness R42
[2024-01-27 09:48] LABS: D Dimer 0.91 ug/mLFEU (0-0.59)
[2024-01-27] MEDS: pantoprazole 40 mg SDV IVP ×2 (09:48→22:14)
[2024-01-27] MEDS: heparin 5,000 unit/mL INJ 1 mL 5000 UNIT SUBCUT ×2 (09:48→22:13)
[2024-01-27] MEDS: levothyroxine 75 mcg Tablet PO (09:48)
[2024-01-27 10:03] LABS: Procalcitonin 0.15 ng/mL (0-0.5); Thyroid Stimulating Hormone 6.93 uIU/mL (0.27-4.20)
[2024-01-27 10:13] LABS: Estmated Average Glucose 74; Hemoglobin A1C 4.2 % (4.0-6.0)
[2024-01-27 10:18] LABS: Alcohol Level < 10 mg/dL (0-10)
[2024-01-27] MEDS: ipratropium-albuterol 3 mL Neb INHALATION ×2 (13:10→20:27)
[2024-01-27 14:45] LABS: Adenovirus Not Detected (NOT DETECT); Chlamydia Pneumoniae Not Detected (NOT DETECT); Coronavirus 229E,HKU1,NL63,OC4 Not Detected (NOT DETECT); Human Metapneumovirus Not Detected (NOT DETECT); Human Rhinovirus/Enterovirus Not Detected (NOT DETECT); Influenza A Not Detected (NOT DETECT); Influenza A H1 Not Detected (NOT DETECT); Influenza A H1-2009 Not Detected (NOT DETECT); Influenza A H3 Not Detected (NOT DETECT); Influenza B Not Detected (NOT DETECT); Mycoplasma Pneumoniae Not Detected (NOT DETECT); Parainfluenza Virus Type 1 Not Detected (NOT DETECT); Parainfluenza Virus Type 2 Not Detected (NOT DETECT); Parainfluenza Virus Type 3 Not Detected (NOT DETECT); Parainfluenza Virus Type 4 Not Detected (NOT DETECT); Respiratory Syncytial Virus A Not Detected (NOT DETECT); Respiratory Syncytial Virus B Not Detected (NOT DETECT); SARS-COV-2 Not Detected (NOT DETECT)
[2024-01-27] MEDS: sevelamer 800 mg Tablet PO ×2 (15:39→22:13)
--- NOTE | 2024-01-27 15:48 | PM.CONSULT ---
Providers/Reason For Consult Consulting Physician/Specialty*: jorge ziegler md / telenephrology Reason for Consult*: ESRD care Requesting Physician: Dr Loaiza Attending Physician: Richie Loaiza MD Primary Care Provider: Randolph Ortiz MD History of Present Illness History of Present Illness Navneet Savage is a 58 year old male history of ESRD on dialysis Wednesday and Wednesday via left upper extremity AV fistula. Patient has history of encephalomalacia in the left temporal lobe. A-fib history of EtOH use and liver failure with ascites in the past requiring weekly ascites drainage last drainage was on January 25, 2024. The patient was at dialysis January 26, 2024. The patient awoke this morning with severe nausea vomiting and dizziness. Patient came to emergency room and is found to have hypertensive urgency with blood pressure as high as 220/115 and requiring oxygen which he requires at home. Patient was found to have right facial weakness which he states is chronic. The patient was seen by neurology recommended CTA. The patient had an echocardiogram this morning showing an EF of 60% with mild LVH however grade 3 out of 4 diastolic dysfunction with restrictive filling patterns and severely elevated filling pressures. Patient had moderate mitral annular calcification but mild to moderate mitral valve regurgitation. Patient also had elevated pulmonary arterial peak systolic pressures of 63 with features of aortic valve sclerosis moderate pulmonary hypertension and most importantly no pericardial effusion in the past he did have a small pericardial effusion. The patient was admitted by . The patient was found to be in A-fib on amiodarone and Coreg. And with concern for a left lower lobe pneumonia he was started on meropenem and oral azithromycin. His hypertensive urgency was treated with Imdur and hydralazine. He was also given Coreg and clonidine which has since been discontinued. The patient now states he is feeling better his weakness has improved. Review of Systems Narrative: weak, Short of breath, chronic oxygen use, cough, nausea vomiting, edema, ascites Medications/Allergies Home Medications Medication Instructions Recorded Confirmed Last Taken Type levothyroxine 75 mcg tablet 75 mcg PO DAILY 30 days #60 tabs 02/26/23 01/27/24 01/26/24 Rx amiodarone 400 mg tablet 400 mg PO DAILY #90 tabs 05/21/23 01/27/24 01/26/24 Rx sertraline 50 mg tablet 50 mg PO QAM #90 tabs 05/21/23 01/27/24 01/26/24 Rx nitroglycerin 0.4 mg sublingual 0.4 mg sublingual Q5M PRN Chest 06/09/23 01/27/24 01/24/24 History tablet (Nitrostat) Pain clonidine HCl 0.1 mg tablet 0.1 mg PO BID PRN high blood 07/13/23 01/27/24 01/24/24 History pressure hydralazine 25 mg tablet 25 mg PO DIRECTED 07/13/23 01/27/24 01/26/24 History hydroxyzine HCl 25 mg tablet 25 mg PO .Q8HR PRN Itching 07/13/23 01/27/24 01/24/24 History acetaminophen 325 mg tablet 650 mg PO QID PRN Pain 09/14/23 01/27/24 01/24/24 History patiromer calcium sorbitex 8.4 8.4 g PO DAILY hyperkalemia 01/04/24 01/27/24 01/24/24 History gram oral powder packet (Veltassa) sevelamer carbonate 0.8 gram oral 0.8 g PO TID 01/04/24 01/27/24 01/24/24 History powder packet vit B,C-folic ac 800 mcg-zinc 12.5 1 tab PO DAILY 01/04/24 01/27/24 01/24/24 History mg-selen-D3 2,000 unit-vit E tablet (RenaPlex-D) carvedilol 12.5 mg tablet 12.5 mg PO BID 01/27/24 01/27/24 01/26/24 History cinacalcet 60 mg tablet 60 mg PO DAILY 01/27/24 01/27/24 01/26/24 History isosorbide mononitrate 30 mg 30 mg PO DAILY 01/27/24 01/27/24 01/26/24 History tablet,extended release 24 hr Allergies Allergy/AdvReac Type Severity Reaction Status Date / Time Penicillins Allergy ALGY-Anaphy Verified 01/20/24 08:51 laxis Sulfa (Sulfonamide Allergy Unknown Verified 01/20/24 08:51 Antibiotics) fluoxetine [From Prozac] AdvReac Mild stomach Verified 01/20/24 08:51 upset Current Medications Generic Name Dose Route Start Last Admin Trade Name Freq PRN Reason Stop Dose Admin Albuterol/Ipratropium 3 ml 01/27/24 14:00 01/27/24 13:10 Ipratropium-Albuterol 3 Ml Neb INHALATION 3 ml Q6H.RESP MINNA Administration Heparin Sodium (Porcine) 5,000 unit 01/27/24 09:23 01/27/24 09:48 Heparin 5,000 Unit/Ml Inj 1 Ml SUBCUT 5,000 unit Q12H MINNA Administration Hydralazine HCl 25 mg 01/27/24 15:00 01/27/24 15:39 Hydralazine 25 Mg Tablet PO 25 mg TID MINNA Administration Levothyroxine Sodium 75 mcg 01/27/24 09:23 01/27/24 09:48 Levothyroxine 75 Mcg Tablet PO 75 mcg DAILY MINNA Administration Pantoprazole Sodium 40 mg 01/27/24 09:23 01/27/24 09:48 Pantoprazole 40 Mg Sdv IVP 40 mg Q12H MINNA Administration Sevelamer Carbonate 800 mg 01/27/24 15:00 01/27/24 15:39 Sevelamer 800 Mg Tablet PO 800 mg TID MINNA Administration PFSH Acute PFSH: Medical History (Updated 01/27/24 @ 14:40 by Richie Loaiza MD) Hypoxia End stage renal disease on dialysis Congestive heart failure Hypertension Hyperkalemia Atrial fibrillation with RVR Unstable angina Acute exacerbation of CHF (congestive heart failure) Acute hyperkalemia Shortness of breath Accelerated hypertension Hypertension Elevated troponin I level Chest pain Altered mental status Malaise Anemia in chronic kidney disease Hypoglycemia Neuropathy, lumbosacral (radicular) End stage renal disease on dialysis Tobacco use disorder Gout Major depressive disorder History of stroke Hypothyroidism GERD (gastroesophageal reflux disease) Dilated aortic root Right bundle branch block (RBBB) on electrocardiogram (ECG) Ascites Nephrogenic ascites, gets regular paracentesis Bilateral hydronephrosis Incomplete bladder emptying Chronic anemia Polycystic kidney disease CVA (cerebral vascular accident) Surgical History AV fistula left arm S/P hemodialysis catheter insertion (03/13/20) 23cm long exchanged right IJ Removed on 06/11/2020 History of colonoscopy 2019 at [facility] History of surgical procedure Peritoneal dialysis catheter placement by Dr. Kamara 2015 Family History Mother Chronic kidney disease (CKD) Stroke Father Cancer lung Brother Hypertension Other End stage renal disease on dialysis Denies family history of Diabetes CAD (coronary artery disease) Clotting disorder Dementia Hyperlipidemia Psychiatric illness Anesthesia complication Bleeding disorder Lung disease Social History Smoking and tobacco/nicotine status: former use of tobacco/nicotine Quit status (tobacco/nicotine): has quit using Alcohol intake: never Substance/Drug Use: current Substance/Drug use frequency: few times a week Marital status: Number of children: 1 Current occupational status: disabled Current gender identity: Male Agree to transfusion: Yes Vitals/I&O/Wt Last Vital Signs Temp 97.1 F L 01/27/24 06:15 Pulse 52 L 01/27/24 14:04 Resp 20 H 01/27/24 14:04 BP 106/62 01/27/24 14:04 Pulse Ox 96 01/27/24 14:04 O2 Del Method Nasal Cannula 01/27/24 13:14 O2 Flow Rate 2 01/27/24 14:04 Weight last 48 hrs Weight 95.254 kg Physical Exam Narrative: The patient is currently comfortable in bed. Blood pressures between 106 and 130 and 60-70. Heart rate in the 50s. The patient is using oxygen. HEENT normocephalic atraumatic. Neck is supple lungs have rhonchi bilaterally Heart regular with systolic murmur positive S1-S2 mild bradycardia. Abdomen is soft positive ascites positive bowel sounds. Extremities left upper extremity AV fistula with good thrill and bruit. Legs with 1+ edema. Neuro awake alert oriented x 3 able to move all extremities. Data 01/27/24 06:00 01/27/24 06:00 Micro: Microbiology 01/27/24 08:50 Blood Culture - Preliminary Blood SPECIMEN COLLECTED 01/27/24 08:55 Blood Culture - Preliminary Blood SPECIMEN COLLECTED A&P Assessment and plan (1) End stage renal disease on dialysis: 58-year-old gentleman history of ESRD on dialysis Wednesday and Wednesday, with diastolic dysfunction/restrictive pattern on chronic 2 L nasal cannula oxygen, A-fib, hypothyroidism, polycystic kidney disease, history of liver failure and ascites. The patient presents with hypertensive emergency and volume overload. Patient's blood pressure has since been treated medically and the patient is comfortable in bed he states that he has been more short of breath than at baseline. 1. Hypertensive urgency/emergency has improved. 2. ESRD I discussed doing extra dialysis with the patient however since his blood pressure has improved so much today I do not want to drop his blood pressure too much and therefore I discussed the case with , and we both agree that we should hold off on dialysis till tomorrow. We will attempt to lower his estimated dry weight. 3. Imaging reviewed CTA shows bilateral cervical ICA stenosis of 50 to 60% with dense calcified plaque to the cavernous carotid arteries also 50% and slight paucity of the vessels and distal left MCA territory at the site of remote infarct. No acute thrombus. 4. CT abdomen shows severe polycystic renal disease with ascites slightly thickened urinary bladder 5. Normal white cell count normal hemoglobin. Platelets are stable at 166 TSH mildly elevated at 6.9. Plan for hemodialysis tomorrow. The patient was seen and examined using A/V equipment. With the aid of a nurse who examined the patient. The patient consents to a telemedicine visit and to hemodialysis. Plan See above give home blood pressure medications likely able to decrease amount of medications. Monitor neurostatus and pulmonary status. Plan on dialysis tomorrow Consult Attestations Medical Necessity Statement: Hypertensive urgency. Time Spent in Patient Care: Greater than 35 minutes (>than 50% of time spent in counselling and/or direct pt care on unit). Coding Level of Care Code Acute Code for Chg Fwd Diagnoses End stage renal disease on dialysis N18.6; Z99.2
--- NOTE | 2024-01-27 16:22 | ECG_ITS ---
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 Measurements Intervals [place] Rate: 57 P: 55 AR: 214 QRS: -64 QRSD: 125 T: -3 QT: 418 QTc: 410 Interpretive Statements SINUS BRADYCARDIA WITH FIRST DEGREE AV BLOCK LEFT ANTERIOR FASCICULAR BLOCK [QRS AXIS <= -45, QR IN I, RS IN II] Compared to ECG 01/27/2024 06:19:18 Left anterior fascicular block now present Left-axis deviation no longer present Intraventricular conduction delay no longer present T-wave abnormality no longer present Electronically Signed On 01-27-2024 18:04:26 CDT by Saurabh Fitzpatrick M.D. [id number]
--- NOTE | 2024-01-27 17:12 | ECG_ITS ---
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 Measurements Intervals [place] Rate: 57 P: 64 ND: 214 QRS: -69 QRSD: 136 T: 3 QT: 531 QTc: 520 Interpretive Statements SINUS BRADYCARDIA WITH FIRST DEGREE AV BLOCK INTRAVENTRICULAR CONDUCTION DELAY [130+ ms QRS DURATION] Compared to ECG 01/27/2024 16:22:32 Intraventricular conduction delay now present Left anterior fascicular block no longer present Electronically Signed On 01-27-2024 18:04:45 CDT by Saurabh Fitzpatrick M.D. [id number]
[2024-01-27 17:17] LABS: Troponin(5th) Baseline 84 ng/L (0-15)
[2024-01-27 17:36] LABS: Hepatitis A Antibody IgM Non-Reactive (Nonreactive); Hepatitis B Core AB, Total Non-Reactive (Nonreactive); Hepatitis B Surface AB 541.2 (11.5-1000); Hepatitis B Surface Antigen Non-Reactive (Nonreactive); Hepatitis C Virus Antibody Non-Reactive (Nonreactive)
--- NOTE | 2024-01-27 18:41 | PC.NURSE ---
Patient has had no urine output this afternoon, which is expected given current kidney function.
[2024-01-27 19:24] LABS: Troponin 5 2HR 86.51 ng/L (0-15); Troponin 5 2HR Delta 2.51 ABS# (0-10)
[2024-01-27] MEDS: budesonide 0.5 mg/2 mL Neb INHALATION (20:27)
--- NOTE | 2024-01-27 20:57 | ECG_ITS ---
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 Measurements Intervals [place] Rate: 58 P: 55 NH: 209 QRS: -74 QRSD: 137 T: 40 QT: 431 QTc: 424 Interpretive Statements SINUS BRADYCARDIA INTRAVENTRICULAR CONDUCTION DELAY [130+ ms QRS DURATION] Compared to ECG 01/27/2024 17:12:44 First degree AV block no longer present Electronically Signed On 01-28-2024 17:07:25 CDT by China Wheat M.D. [id number]
[2024-01-27] MEDS: atorvastatin 40 mg Tablet PO (22:13)
[2024-01-27 23:30] LABS: Troponin 5 6HR 98.51 ng/L (0-15)
[2024-01-27 23:39] LABS: Troponin 5 6HR Delta 14.51 ng/L (0-12)
[2024-01-28] VITALS (13 sets, daily range): BP systolic 141–185; BP diastolic 72–105; PULSE 55–71; RESP 14–24; TEMP 36.4–36.8; O2SAT 94–100; BMI 32.0; BMI 30.7
[2024-01-28 04:23] LABS: Basophils % 0.3 %; Eosinophils % 0.6 %; Hematocrit 33.7 % (37-53); Lymphocytes # 0.8 10^3/uL (0.8-4.8); Lymphocytes % 11.7 %; Mean Corpuscular HGB Conc 31.8 g/dL (30-55); Mean Corpuscular Hemoglobin 31.9 pg (27-33); Mean Corpuscular Volume 100.6 fl (82-101); Mean Platelet Volume 10.8 fL (7.4-10.4); Monocytes # 0.6 10^3/uL (0.2-0.9); Monocytes % 8.7 %; Neutrophils # 5.34 10^3/uL (1.8-7.7); Neutrophils % 78.3 %; Nucleated Red Blood Cells % 0 %; Platelet Count 165 10^3/cmm (157-399); Red Blood Count 3.35 10^6/uL (3.85-5.65); Red Cell Distribution Width 14.7 % (12.1-15.1); White Blood Count 6.82 10^3/uL (3.29-11.43)
[2024-01-28 04:51] LABS: Alanine Aminotransferase < 5 U/L (0-41); Albumin Level 2.9 g/dL (3.5-5.2); Alkaline Phosphatase 141 U/L (40-130); Anion Gap 16.4 (5-19); Aspartate Amino Transferase 10 U/L (0-40); Blood Urea Nitrogen 18 mg/dL (6-20); Calcium 9.2 mg/dL (8.5-10.5); Carbon Dioxide 26 mmol/L (22-29); Chloride 98 mmol/L (98-107); Chol HDL Ratio 4.03 mg/dL (1.0-5.00); Cholesterol 157 mg/dL (0-200); Globulin 2.6 g/dL (1.3-4.6); Glomerular Filtration Rate 13.9 mL/min (90-130); Glucose 79 mg/dL (65-115); HDL Cholesterol 39 mg/dL (60-100); LDL Cholesterol Calculated 103 mg/dL (50-129); LDL HDL Ratio 2.64 RATIO (0.00-3.22); Magnesium 2.1 mg/dL (1.7-2.3); Osmolality Calculated 283 mOsm/kg (285-295); Phosphorus 6.4 mg/dL (2.5-4.5); Potassium 4.4 mmol/L (3.5-5.1); Sodium 136 mmol/L (136-145); Total Bilirubin 0.4 mg/dL (0.15-1.2); Total Protein 5.5 g/dL (6.6-8.7); Triglycerides 75 mg/dL (0-150)
[2024-01-28] MEDS: sertraline 50 mg Tablet PO (06:03)
--- NOTE | 2024-01-28 08:03 | PM.PN ---
Subjective Subjective: The patient was seen and examined. He is comfortable in bed no nausea no vomiting. Mild edema. Chronic nasal cannula oxygen use. No diarrhea. Rest review of systems negative. Medications: Reviewed: Yes Medication Review Details: Current Medications Acetaminophen (Acetaminophen 325 Mg Tablet) 650 mg PO Q6H PRN PRN Reason: Mild/Mod Pain Or Temp >/= 101 Albuterol/Ipratropium (Ipratropium-Albuterol 3 Ml Neb) 3 ml INHALATION Q6H.RESP MINNA Last Admin: 01/28/24 02:24 Dose: Not Given Amiodarone HCl (Amiodarone 200 Mg Tablet) 100 mg PO DAILY [facility] Aspirin (Aspirin 81 Mg Ec Tablet) 81 mg PO DAILY [facility] Atorvastatin Calcium (Atorvastatin 40 Mg Tablet) 40 mg PO BEDTIME [facility] Last Admin: 01/27/24 22:13 Dose: 40 mg Bisacodyl (Bisacodyl 5 Mg Tablet) 10 mg PO DAILY PRN; Protocol PRN Reason: Constipation (see protocol) Budesonide (Budesonide 0.5 Mg/2 Ml Neb) 0.5 mg INHALATION BID.RESPIRATORY [facility] Last Admin: 01/27/24 20:27 Dose: 0.5 mg Clonidine HCl (Clonidine 0.1 Mg Tablet) 0.1 mg PO BID PRN PRN Reason: high blood pressure Heparin Sodium (Porcine) (Heparin 5,000 Unit/Ml Inj 1 Ml) 5,000 unit SUBCUT Q12H [facility] Last Admin: 01/27/24 22:13 Dose: 5,000 unit Hydralazine HCl (Hydralazine 25 Mg Tablet) 25 mg PO TID [facility] Last Admin: 01/27/24 22:13 Dose: 25 mg Isosorbide Mononitrate (Isosorbide Mononitrate Er 30 Mg Tablet) 30 mg PO DAILY [facility] Lactulose (Lactulose Oral Liq 20 Gm/30 Ml Udc) 10 gm PO DAILY PRN; Protocol PRN Reason: Constipation (see protocol) Levothyroxine Sodium (Levothyroxine 75 Mcg Tablet) 75 mcg PO DAILY [facility] Last Admin: 01/27/24 09:48 Dose: 75 mcg Lidocaine/Prilocaine (Lidocaine-Prilocaine Cream 5 Gm) 1 applic TOPICAL PRE TREATMENT PRN PRN Reason: pre dialysis Magnesium Hydroxide (Magnesium Hydroxide 30 Ml Udc) 30 ml PO DAILY PRN; Protocol PRN Reason: Constipation (see protocol) Meropenem (Meropenem 1,000 Mg Sdv) 1,000 mg IVP Q12H MINNA; Protocol Last Admin: 01/27/24 22:14 Dose: 1,000 mg Morphine Sulfate (Morphine 4 Mg/Ml Sdv 1 Ml) 2 mg IVP Q4H PRN PRN Reason: SEVERE PAIN Multivitamins (O-Pbglqqd-Vnwiyts C Tablet) 1 each PO DAILY [facility] Ondansetron HCl (Ondansetron 2 Mg/Ml Sdv 2 Ml) 4 mg IVP Q8H PRN PRN Reason: vomiting, or N/V if npo Pantoprazole Sodium (Pantoprazole 40 Mg Sdv) 40 mg IVP Q12H [facility] Last Admin: 01/27/24 22:14 Dose: 40 mg Sertraline HCl (Sertraline 50 Mg Tablet) 50 mg PO QAM [facility] Last Admin: 01/28/24 06:03 Dose: 50 mg Sevelamer Carbonate (Sevelamer 800 Mg Tablet) 800 mg PO TID [facility] Last Admin: 01/27/24 22:13 Dose: 800 mg Vitals/I&O/Wt Last Vital Signs Temp 97.5 F L 01/28/24 07:50 Pulse 63 01/28/24 07:50 Resp 24 H 01/28/24 07:50 BP 175/105 01/28/24 07:50 Pulse Ox 94 01/28/24 07:50 O2 Del Method Nasal Cannula 01/28/24 07:50 O2 Flow Rate 3 01/27/24 20:28 01/27/24 01/28/24 01/28/24 22:59 06:59 14:59 Intake Total 0 / 0 Output Total 0 / 0 0 / 0 Balance 0 / 0 0 / 0 Weight last 48 hrs Weight 92.788 kg Weight 92.669 kg Weight 92.669 kg Weight 95.254 kg Physical Exam Narrative: The patient is currently comfortable in bed. Vital signs noted and blood pressure is elevated. The patient is using oxygen. HEENT normocephalic atraumatic. Neck is supple lungs have rhonchi bilaterally Heart regular with systolic murmur positive S1-S2 mild bradycardia. Abdomen is soft positive ascites positive bowel sounds. Extremities left upper extremity AV fistula with good thrill and bruit. Legs with 1+ edema. Neuro awake alert oriented x 3 able to move all extremities. Data 01/28/24 03:36 01/28/24 03:36 Micro: Microbiology 01/27/24 08:50 Blood Culture - Preliminary Blood SPECIMEN COLLECTED 01/27/24 08:55 Blood Culture - Preliminary Blood SPECIMEN COLLECTED A&P Assessment and plan (1) End stage renal disease on dialysis: 58-year-old gentleman history of ESRD on dialysis Wednesday and Wednesday, with diastolic dysfunction/restrictive pattern on chronic 2 L nasal cannula oxygen, A-fib, hypothyroidism, polycystic kidney disease, history of liver failure and ascites. The patient presents with hypertensive emergency and volume overload. 1. Hypertensive urgency/emergency has improved. Will remove fluid on dialysis. 2. ESRD -dialysis today remove fluids. Consider extra dialysis tomorrow. 3. Imaging reviewed CTA shows bilateral cervical ICA stenosis of 50 to 60% with dense calcified plaque to the cavernous carotid arteries also 50% and slight paucity of the vessels and distal left MCA territory at the site of remote infarct. No acute thrombus. 4. CT abdomen shows severe polycystic renal disease with ascites slightly thickened urinary bladder 5. Normal white cell count hemoglobin is acceptable for ESRD.. Platelets are stable at 165 TSH mildly elevated at 6.9. -Phosphorus 6.4 will use a binder. Please note that calcium was improved from May 2010 0.2 to currently 9.2 Please note albumin is down to 2.9 6. Mild bradycardia avoid beta-blockers and limit clonidine. Monitor with dialysis The patient was seen and examined using A/V equipment. With the aid of a nurse who examined the patient. The patient consents to a telemedicine visit and to hemodialysis. Plan Monitor blood pressure, dialysis today and assess for dialysis tomorrow Attestations Medical Necessity Statement*: ESRD, hypertension volume overload, short of breath Time Spent in Patient Care: 16 - 35 minutes (>than 50% of time spent in counselling and/or direct pt care on unit). Coding Level of Care Code Acute Code for Chg Fwd Diagnoses End stage renal disease on dialysis N18.6; Z99.2
[2024-01-28] MEDS: budesonide 0.5 mg/2 mL Neb INHALATION ×2 (08:24→21:10)
[2024-01-28] MEDS: ipratropium-albuterol 3 mL Neb INHALATION ×2 (08:24→22:17)
[2024-01-28] MEDS: meropenem 1,000 mg SDV 1000 MG IVP ×2 (08:38→21:17)
[2024-01-28] MEDS: pantoprazole 40 mg SDV IVP ×2 (08:38→21:18)
[2024-01-28] MEDS: b-complex-vitamin c Tablet 1 EACH PO (08:39)
[2024-01-28] MEDS: levothyroxine 75 mcg Tablet PO (08:39)
[2024-01-28] MEDS: amiodarone 200 mg Tablet 100 MG PO (08:39)
[2024-01-28] MEDS: heparin 5,000 unit/mL INJ 1 mL 5000 UNIT SUBCUT ×2 (08:39→21:17)
[2024-01-28] MEDS: isosorbide mononitrate ER 30 mg Tablet PO (08:39)
[2024-01-28] MEDS: sevelamer 800 mg Tablet 1600 MG PO ×3 (08:40→21:17)
[2024-01-28] MEDS: hyDRALAzine 25 mg Tablet PO ×2 (08:40→14:48)
[2024-01-28] MEDS: aspirin 81 mg EC Tablet PO (08:40)
[2024-01-28 12:46] LABS: Troponin T (5th) Once 83 ng/L (0-15)
[2024-01-28] MEDS: acetaminophen 325 mg Tablet 650 MG PO (14:47)
--- NOTE | 2024-01-28 15:12 | PC.NURSE ---
after speaking with speech therapist in the patient's room, both [facility] and the ST feel good about putting pt on a dysphagia level 6 diet.
[2024-01-28 15:45] LABS: Methicillin-Resist S.aureu PCR NOT DETECTED (NOT DETECTED)
--- NOTE | 2024-01-28 17:14 | P.PN_ITS ---
Subjective 2 Subjective: No acute events overnight. Patient did have episode of nausea and vomiting later in the day. Blood pressures are better but elevated. Heart rate better than yesterday. Patient complaining of nausea but wants to eat. Uncooperative during examination. Vitals/I&O/Wt Last Vital Signs Temp 97.8 F 01/28/24 17:06 Pulse 68 01/28/24 17:06 Resp 14 01/28/24 17:06 BP 161/81 01/28/24 17:06 Pulse Ox 100 01/28/24 17:06 O2 Del Method Nasal Cannula 01/28/24 17:06 O2 Flow Rate 3 01/28/24 08:25 01/28/24 01/28/24 01/28/24 06:59 14:59 22:59 Intake Total 0 / 0 500 / 500 Output Total 0 / 0 3500 / 3500 Balance 0 / 0 -3000 / -3000 Weight last 48 hrs Weight 91.3 kg Weight 92.788 kg Weight 92.669 kg Weight 92.669 kg Weight 95.254 kg Physical Exam 2 Narrative: General: No acute distress, AO x3, uncooperative chronically sick appearing on 3 days of oxygen supplementation, HEENT: PERRLA, pupils bilaterally equal and reactive Chest: Normal vesicular breath sounds, no added sounds, equal good air entry bilaterally CVS: S1-S2 irregularly irregular, soft pansystolic murmur present in fourth intercostal left retrosternal region, bradycardia, no gallops, no rubs Abdomen: Soft, nontender, no organomegaly, bowel sounds present Neuro: No focal deficits, no facial deformity, AO x3, power 5/5 in all limbs Data 01/28/24 03:36 01/28/24 03:36 Micro: Microbiology 01/27/24 08:55 Blood Culture - Preliminary Blood NEGATIVE TO DATE 01/27/24 08:50 Blood Culture - Preliminary Blood NEGATIVE TO DATE A&P Assessment and plan (1) Bradycardia: With history of A-fib in the past. Currently on amiodarone 400 mg daily along with Coreg. Seems to be improving. Continue to hold off on Coreg. Continue with amiodarone at 100 mg oral daily. (2) Atrial fibrillation with RVR: As above. Chronically not on anticoagulation because of history of GI bleed. (3) Hypoxia: Most likely in setting of diastolic congestive heart failure in setting of hypertensive emergency and left lower lobe pneumonia. Continue with oxygen supplementation keeping saturation over 90%. (4) Left lower lobe pneumonia: Sputum culture pending, respiratory viral panel negative. Blood culture to be followed. Urine Legionella bacterial antigen could not be done. History of MRSA negative in the past. For now start patient on IV meropenem 1 g twice daily. Patient is allergic to penicillin. Continue with azithromycin 500 mg oral daily for atypical coverage. DuoNeb every 6 hours, Pulmicort twice daily. Aggressive pulmonary toilet incentive spirometry. (5) Hypertensive urgency: With presenting blood pressure of more than 200 mmHg. Goal blood pressure less than 140/90 mmHg with mean over 65. Holding off on beta-julee as above. Continue with home dose of Imdur. Change hydralazine to 50 mg 3 times daily. Uptitrate medication as per blood pressure goals. (6) Congestive heart failure: Strict input charting, daily weights. Monitor blood pressure. Will consult nephrology for hemodialysis. Echocardiogram done shows EF of 68% with grade 3 diastolic dysfunction, dilated LA, mild to moderate MR, trace TR, moderate pulmonary hypertension with PASP of 63 mmHg. (7) Arterial ischemic stroke, MCA, left, remote, resolved: CT head shows encephalomalacia on the left which is new since . Appreciate CT head and neck, echocardiogram. Appreciate A1c, lipid panel. Start on aspirin 81 mg daily, atorvastatin 20 mg daily. No need for permissible hypertension given remote stroke. Speech evaluation, PT and OT evaluation. (8) ESRD (end stage renal disease) on dialysis: Will consult nephrology for hemodialysis. Last hemodialysis on 01/25. (9) Hypertension: (10) Nausea and vomiting: Could be in setting of hypertensive urgency versus non-ST elevation CO. Repeat troponins. Advance diet as per speech therapy. If continues to have nausea and vomiting will consult surgery for possible endoscopy. Protonix 40 mg twice daily. Add Carafate ACHS. Hepatitis panel, urine drug screen negative. Respiratory viral panel negative. Zofran as needed. (11) Dizziness: Plan Ascites: Patient undergoes frequent paracentesis. Will plan for ultrasound- guided paracentesis once available. CODE STATUS: Full code Patient's friend Kayla will be the DPOA. NPO. Restart diet as per speech evaluation. Will be cardiac diet. Protonix be sufficient for PUD prophylaxis Heparin 5000 every 12 hours for DVT prophylaxis. Attestations 2 Medical Necessity Statement*: Requires further hospitalization for management of hypoxia in setting of aspiration pneumonitis, uncontrolled hypertension, persistent nausea and vomiting in a patient with end-stage renal disease on hemodialysis Diagnoses Bradycardia R00.1 Atrial fibrillation with RVR I48.91 Hypoxia R09.02 Left lower lobe pneumonia J18.9 Hypertensive urgency I16.0 Congestive heart failure I50.9 Arterial ischemic stroke, MCA, left, remote, resolved Z86.73 ESRD (end stage renal disease) on dialysis N18.6; Z99.2 Hypertension, unspecified type I10 Nausea and vomiting R11.2 Dizziness R42
[2024-01-28] MEDS: atorvastatin 40 mg Tablet PO (21:17)
[2024-01-28] MEDS: hyDRALAzine 25 mg Tablet 50 MG PO (21:17)
[2024-01-28] MEDS: sucralfate 1 gm/10 mL Oral Liq UDC PO (21:18)
[2024-01-29] VITALS (10 sets, daily range): BP systolic 141–186; BP diastolic 68–95; PULSE 0–65; RESP 16–21; TEMP 36.6–37; O2SAT 90–98
[2024-01-29] MEDS: cloNIDine 0.1 mg Tablet PO (04:05)
[2024-01-29 04:59] LABS: Basophils % 0.3 %; Eosinophils # 0.1 10^3/uL (0.0-0.8); Hematocrit 37.1 % (37-53); Lymphocytes # 0.9 10^3/uL (0.8-4.8); Lymphocytes % 12.9 %; Mean Corpuscular HGB Conc 31.5 g/dL (30-55); Mean Corpuscular Hemoglobin 31.5 pg (27-33); Monocytes # 0.8 10^3/uL (0.2-0.9); Monocytes % 10.7 %; Neutrophils # 5.17 10^3/uL (1.8-7.7); Neutrophils % 73.8 %; Nucleated Red Blood Cells % 0 %; Platelet Count 186 10^3/cmm (157-399); Red Blood Count 3.71 10^6/uL (3.85-5.65); Red Cell Distribution Width 14.7 % (12.1-15.1)
[2024-01-29 05:19] LABS: Alanine Aminotransferase < 5 U/L (0-41); Albumin Level 3.2 g/dL (3.5-5.2); Alkaline Phosphatase 150 U/L (40-130); Anion Gap 13.3 (5-19); Aspartate Amino Transferase 13 U/L (0-40); Blood Urea Nitrogen 15 mg/dL (6-20); Calcium 9.9 mg/dL (8.5-10.5); Carbon Dioxide 30 mmol/L (22-29); Chloride 99 mmol/L (98-107); Creatinine Clr Calc Pharmacy 23.8142; Globulin 2.7 g/dL (1.3-4.6); Glomerular Filtration Rate 17.5 mL/min (90-130); Glucose 69 mg/dL (65-115); Osmolality Calculated 285 mOsm/kg (285-295); Potassium 4.3 mmol/L (3.5-5.1); Sodium 138 mmol/L (136-145); Total Bilirubin 0.5 mg/dL (0.15-1.2); Total Protein 5.9 g/dL (6.6-8.7)
[2024-01-29] MEDS: sucralfate 1 gm/10 mL Oral Liq UDC PO ×2 (06:31→12:14)
[2024-01-29] MEDS: sertraline 50 mg Tablet PO (06:32)
[2024-01-29] MEDS: budesonide 0.5 mg/2 mL Neb INHALATION (07:48)
[2024-01-29] MEDS: ipratropium-albuterol 3 mL Neb INHALATION ×2 (07:48→13:23)
--- NOTE | 2024-01-29 09:08 | PM.PN ---
Subjective Subjective: feels better. No nausea vomiting. No headaches. Patient has chronic Medications: Reviewed: Yes Medication Review Details: Current Medications Acetaminophen (Acetaminophen 325 Mg Tablet) 650 mg PO Q6H PRN PRN Reason: Mild/Mod Pain Or Temp >/= 101 Last Admin: 01/28/24 14:47 Dose: 650 mg Albuterol/Ipratropium (Ipratropium-Albuterol 3 Ml Neb) 3 ml INHALATION Q6H.RESP [facility]NA Last Admin: 01/29/24 07:48 Dose: 3 ml Amiodarone HCl (Amiodarone 200 Mg Tablet) 100 mg PO DAILY [facility] Last Admin: 01/28/24 08:39 Dose: 100 mg Aspirin (Aspirin 81 Mg Ec Tablet) 81 mg PO DAILY [facility] Last Admin: 01/28/24 08:40 Dose: 81 mg Atorvastatin Calcium (Atorvastatin 40 Mg Tablet) 40 mg PO BEDTIME [facility] Last Admin: 01/28/24 21:17 Dose: 40 mg Bisacodyl (Bisacodyl 5 Mg Tablet) 10 mg PO DAILY PRN; Protocol PRN Reason: Constipation (see protocol) Budesonide (Budesonide 0.5 Mg/2 Ml Neb) 0.5 mg INHALATION BID.RESPIRATORY [facility] Last Admin: 01/29/24 07:48 Dose: 0.5 mg Clonidine HCl (Clonidine 0.1 Mg Tablet) 0.1 mg PO BID PRN PRN Reason: high blood pressure Last Admin: 01/29/24 04:05 Dose: 0.1 mg Heparin Sodium (Porcine) (Heparin 5,000 Unit/Ml Inj 1 Ml) 5,000 unit SUBCUT Q12H [facility] Last Admin: 01/28/24 21:17 Dose: 5,000 unit Hydralazine HCl (Hydralazine 25 Mg Tablet) 50 mg PO TID [facility] Last Admin: 01/28/24 21:17 Dose: 50 mg Isosorbide Mononitrate (Isosorbide Mononitrate Er 30 Mg Tablet) 30 mg PO DAILY [facility] Last Admin: 01/28/24 08:39 Dose: 30 mg Lactulose (Lactulose Oral Liq 20 Gm/30 Ml Udc) 10 gm PO DAILY PRN; Protocol PRN Reason: Constipation (see protocol) Levothyroxine Sodium (Levothyroxine 75 Mcg Tablet) 75 mcg PO DAILY [facility] Last Admin: 01/28/24 08:39 Dose: 75 mcg Lidocaine/Prilocaine (Lidocaine-Prilocaine Cream 5 Gm) 1 applic TOPICAL PRE TREATMENT PRN PRN Reason: pre dialysis Magnesium Hydroxide (Magnesium Hydroxide 30 Ml Udc) 30 ml PO DAILY PRN; Protocol PRN Reason: Constipation (see protocol) Meropenem (Meropenem 1,000 Mg Sdv) 1,000 mg IVP Q12H MINNA; Protocol Last Admin: 01/28/24 21:17 Dose: 1,000 mg Morphine Sulfate (Morphine 4 Mg/Ml Sdv 1 Ml) 2 mg IVP Q4H PRN PRN Reason: SEVERE PAIN Multivitamins (E-Fjbukpl-Nijoalb C Tablet) 1 each PO DAILY [facility] Last Admin: 01/28/24 08:39 Dose: 1 each Ondansetron HCl (Ondansetron 2 Mg/Ml Sdv 2 Ml) 4 mg IVP Q8H PRN PRN Reason: vomiting, or N/V if npo Pantoprazole Sodium (Pantoprazole 40 Mg Sdv) 40 mg IVP Q12H [facility] Last Admin: 01/28/24 21:18 Dose: 40 mg Sertraline HCl (Sertraline 50 Mg Tablet) 50 mg PO QAM [facility] Last Admin: 01/29/24 06:32 Dose: 50 mg Sevelamer Carbonate (Sevelamer 800 Mg Tablet) 1,600 mg PO TID [facility] Last Admin: 01/28/24 21:17 Dose: 1,600 mg Sucralfate (Sucralfate 1 Gm/10 Ml Oral Liq Udc) 1 gm PO AC&BEDTIME [facility] Last Admin: 01/29/24 06:31 Dose: 1 gm Vitals/I&O/Wt Last Vital Signs Temp 97.8 F 01/29/24 07:53 Pulse 60 01/29/24 08:00 Resp 16 01/29/24 07:53 BP 141/68 01/29/24 07:53 Pulse Ox 90 01/29/24 07:53 O2 Del Method Nasal Cannula 01/29/24 07:53 O2 Flow Rate 3 01/29/24 07:48 01/28/24 01/29/24 01/29/24 22:59 06:59 14:59 Intake Total 860 / 860 240 / 1100 240 / 240 Output Total 3520 / 3520 Balance -2660 / -2660 240 / -2420 240 / 240 Weight last 48 hrs Weight 88.677 kg Weight 89.04 kg Weight 91.3 kg Weight 92.788 kg Weight 92.669 kg Weight 92.669 kg Physical Exam Narrative: The patient is currently comfortable in bed. Vital signs noted and blood pressure is improved. The patient is using oxygen. HEENT normocephalic atraumatic. Neck is supple lungs have rhonchi bilaterally Heart -irregular, with systolic murmur positive S1-S2 mild bradycardia. Abdomen is soft positive ascites positive bowel sounds. Extremities left upper extremity AV fistula with good thrill and bruit. Legs with 1+ edema. Neuro awake alert oriented x 3 able to move all extremities. Data 01/29/24 03:25 01/29/24 03:25 Micro: Microbiology 01/27/24 08:55 Blood Culture - Preliminary Blood NEGATIVE TO DATE 01/27/24 08:50 Blood Culture - Preliminary Blood NEGATIVE TO DATE A&P Assessment and plan (1) End stage renal disease on dialysis: 58-year-old gentleman history of ESRD on dialysis Wednesday and Wednesday, with diastolic dysfunction/restrictive pattern on chronic 2 L nasal cannula oxygen, A-fib, hypothyroidism, polycystic kidney disease, history of liver failure and ascites. The patient presents with hypertensive emergency and volume overload. 1. Hypertensive urgency/emergency has improved. 2. ESRD -he is status post dialysis yesterday. He does not want any extra dialysis today. 3. Imaging reviewed CTA shows bilateral cervical ICA stenosis of 50 to 60% with dense calcified plaque to the cavernous carotid arteries also 50% and slight paucity of the vessels and distal left MCA territory at the site of remote infarct. No acute thrombus. 4. Atrial fibrillation well-controlled heart rate little on the low side. 5. Left lower lobe pneumonia on meropenem is allergic to penicillin. Continue azithromycin. On nebulizers. 6. Diastolic dysfunction heart failure preserved EF. And pulmonary hypertension. Would consider extra dialysis if patient accepts. Currently not excepting. 7. History of ischemic CVA left MCA with CT scan showing encephalomalacia on aspirin and Lipitor. 8. Hemoglobin acceptable for ESRD no need for Epogen 9. Normal bicarbonate of 30 little high likely status post hemodialysis. 10. Hyperphosphatemia on sevelamer and Monitor with dialysis The patient was seen and examined using A/V equipment. With the aid of a nurse who examined the patient. The patient consents to a telemedicine visit and to hemodialysis. Plan Monitor blood pressure, continue antibiotics Attestations Medical Necessity Statement*: As per hospitalist. Time Spent in Patient Care: 16 - 35 minutes (>than 50% of time spent in counselling and/or direct pt care on unit). Coding Level of Care Code Acute Code for Chg Fwd Diagnoses End stage renal disease on dialysis N18.6; Z99.2
[2024-01-29] MEDS: meropenem 1,000 mg SDV 1000 MG IVP (09:11)
[2024-01-29] MEDS: heparin 5,000 unit/mL INJ 1 mL 5000 UNIT SUBCUT (09:11)
[2024-01-29] MEDS: pantoprazole 40 mg SDV IVP (09:11)
[2024-01-29] MEDS: isosorbide mononitrate ER 30 mg Tablet PO (09:12)
[2024-01-29] MEDS: amiodarone 200 mg Tablet 100 MG PO (09:12)
[2024-01-29] MEDS: b-complex-vitamin c Tablet 1 EACH PO (09:12)
[2024-01-29] MEDS: sevelamer 800 mg Tablet 1600 MG PO (09:13)
[2024-01-29] MEDS: levothyroxine 75 mcg Tablet PO (09:13)
[2024-01-29] MEDS: aspirin 81 mg EC Tablet PO (09:13)
[2024-01-29] MEDS: hyDRALAzine 25 mg Tablet 50 MG PO (09:13)
--- NOTE | 2024-01-29 13:27 | P.DS_ITS ---
Discharge Providers Date of Admission: 01/27/24 08:26 Date of Discharge: January 29, 2024 Attending Provider at Admission: Richie Loaiza MD Attending Provider at Discharge: Richie Loaiza MD Consults: By nephrology Neurology: Dr. Soliz Primary Care Provider: Randolph Ortiz MD Diagnoses at Discharge Discharge Diagnosis (1) End stage renal disease on dialysis: Status: Acute (2) Hypertensive urgency: Status: Acute (3) Congestive heart failure: Status: Acute Permanent problem details: Grade 3 diastolic dysfunction on echocardiogram from 01/27/2024 (4) Atrial fibrillation with RVR: Status: Acute (5) Bradycardia: Status: Acute (6) Hypothyroidism: Status: Acute (7) Nausea and vomiting: Status: Acute (8) Ascites: Status: Acute Permanent problem details: Nephrogenic ascites, gets regular paracentesis (9) Arterial ischemic stroke, ICA, left, remote, resolved: Status: Acute (10) Hypoxia: Status: Acute (11) Left lower lobe pneumonia: Status: Acute (12) Moderate pulmonary hypertension: Status: Acute Reason for Visit Reason for Visit: stroke Hospital Course Hospital Course Navneet Savage is a 58 year old male with past medical history of end- stage renal disease on hemodialysis, hypertension with history of uncontrolled hypertension, diastolic heart failure, chronically on 2 L of ox supplementation, A-fib with RVR, hypothyroidism, remote history of alcohol abuse, polycystic [place], ascites with frequent episode of paracentesis. He presents to the ER today because of nausea and vomiting which started when he woke up in the morning today associated with generalized weakness. As per the patient he was not able to move his limbs so he presented to the ER and stroke code was called. As patient's last known well was last night around 7 PM he was deemed not a candidate for thrombolytics. Neurology was consulted. In the ER he was also found to have uncontrolled hypertension for which she was given his home medications including 400 mg of amiodarone, Coreg 12.5 mg, clon idine 0.1, oral hydralazine 25 mg, 20 mg of IV hydralazine and Imdur 30 mg. When seen on the floor patient is awake and alert though drowsy but able to have complete conversation. He is currently on 3 L of oxygen supplementation with bradycardia and heart rate running in 50s and systolic blood pressure of 105 mmHg. His last hemodialysis was on 01/25 and paracentesis around 2 days ago. He currently denies any difficulty in breathing, chest pain, fever, diarrhea, abdominal pain. As per patient his vomiting started earlier today morning. He did not have any vomiting last night. Denies any sick contacts. Denies any hematochezia or hematemesis. Patient was admitted to the hospital further evaluation and management of nausea and vomiting, hypertensive urgency with concerns of stroke on admission. CT head and neck along with CTA head and neck were done and were consistent with an old stroke. Neurology was consulted. Patient was not a candidate for thrombolytics given no specific last well-known. He underwent further workup for stroke. On admission he was in uncontrolled hypertension with hypertensive urgency for which his home dose of antihypertensives were adjusted. He was also found to have extensive bradycardia for which his home doses of medications were adjusted. Nephrology was consulted and he underwent his regular sessions of dialysis. There were concerns for aspiration pneumonia on admission for which she was started on broad-spectrum antibiotics. Patient responded well to the treatment and has been on baseline oxygen supplementation for last 48 hours. [place] has remained afebrile with improvement in his heart rates and blood pressures. Speech evaluation was done and diet was started accordingly. Patient has has resolution of nausea and vomiting since improvement in his blood pressures. ACS was ruled out with echocardiogram and flat troponin levels. He has been discharged in hemodynamically stable condition on his baseline oxygen supplementation on oral antibiotics with doxycycline and Levaquin for 7 more days. His antihypertensives have been adjusted with amiodarone dose has been decreased to 100 mg daily, hydralazine dose has been changed to 50 mg 3 times a day. Physical Exam Narrative: General: No acute distress, AO x3, uncooperative chronically sick appearing on 3 days of oxygen supplementation, HEENT: PERRLA, pupils bilaterally equal and reactive Chest: Normal vesicular breath sounds, no added sounds, equal good air entry bilaterally CVS: S1-S2 irregularly irregular, soft pansystolic murmur present in fourth intercostal left retrosternal region, bradycardia, no gallops, no rubs Abdomen: Soft, nontender, no organomegaly, bowel sounds present Neuro: No focal deficits, no facial deformity, AO x3, power 5/5 in all limbs Discharge Data Studies Completed and Pending Completed Studies During Hospitalization Category Date Time Status CT abdomen pelvis w con* [id number] Stat Cat Scan 01/27/24 05:[address] head thrombolytic [id number] Stat Cat Scan 01/27/24 05:49 Completed CTA head neck [CT angio headneck* [id number]] Stat Cat Scan 01/27/24 07:39 Completed XR chest 1V portable [id number] Stat Exams 01/27/24 07:28 Completed CV. echo complete* [id number] Routine Ultrasound 01/27/24 09:08 Completed Pending at discharge Category Date Time Status Blood Culture Stat Lab 01/27/24 08:50 Results Sputum Culture and Gram Stain Stat Lab 01/27/24 09:13 Uncol[place] w [id number] Routine Ultrasound 01/31/24 08:00 Ordered Radiology Impressions Head CT 01/27/24 05:49 IMPRESSION: 1. No acute intracranial abnormality. 2. Encephalomalacia on the left, new since 04/26/2023. ASSESSMENT: ASPECTS ([place] Stroke Program Early CT Score) is 10. . Abdomen/Pelvis CT 01/27/24 05:59 IMPRESSION: 1. No acute findings. 2. Severe polycystic renal disease with ascites. The findings are similar to what was seen on 03/28/2023. 3. Slightly thickened urinary bladder wall. Correlate for cystitis. Chest X-Ray 01/27/24 07:28 Impression: There is cardiomegaly with diffuse increased interstitial markings noted, particularly on the left. Asymmetric edema versus pneumonia could have this appearance. Head/Neck CTA 01/27/24 07:39 IMPRESSION: 1. RIGHT cervical ICA stenosis 50 to 60%. 2. LEFT cervical ICA stenosis 50 to 60%. 3. Dense calcified plaque to the cavernous carotid arteries estimated stenosis 50%. 4. No cerebral occlusions and no aneurysm. 5. Slight paucity of vessels in the distal LEFT MCA territory at the site of a remote infarct. No acute thrombus. Echocardiogram: CONCLUSIONS Normal left ventricular size and systolic function, EF 68%. Mild concentric left hypertrophy. No gross wall motion abnormalities.Grade III/IV diastolic dysfunction (restrictive filling pattern), severely elevated filling pressures. Mildly increased left atrial size. Thickened mitral valve. Moderate mitral annular calcification. Mild to moderate mitral valve regurgitation. Trace tricuspid valve regurgitation. Moderate pulmonary hypertension with an estimated pulmonary artery peak systolic pressure of 63 mmHg Features of aortic valve sclerosis. Trace tricuspid valve regurgitation. Moderate pulmonary hypertension with an estimated pulmonary artery peak systolic pressure of 63 mmHg There is no pericardial effusion. There are no intracardiac masses. Compared to the study from 06/09/2023, currently the patient has no pericardial effusion Dr China Wheat MD [facility] (Electronically Signed) Final Date: 27 January 2024 13:24 Microbiology 01/27/24 08:55 Blood Blood Culture - Preliminary NEGATIVE TO DATE 01/27/24 08:50 Blood Blood Culture - Preliminary NEGATIVE TO DATE Laboratory Results WBC 7.00 10^3/uL (3.29-11.43) 01/29/24 03:25 RBC 3.71 10^6/uL (3.85-5.65) L 01/29/24 03:25 Hgb 11.70 g/dL (11.27-16.99) 01/29/24 03:25 Hct 37.1 % (37-53) 01/29/24 03:25 MCV 100.0 fl (82-101) 01/29/24 03:25 MCH 31.5 pg (27-33) 01/29/24 03:25 MCHC 31.5 g/dL (30-55) 01/29/24 03:25 RDW 14.7 % (12.1-15.1) 01/29/24 03:25 Plt Count 186 10^3/cmm (157-399) 01/29/24 03:25 MPV 11.0 fL (7.4-10.4) H 01/29/24 03:25 Neut % (Auto) 73.8 % 01/29/24 03:25 Lymph % (Auto) 12.9 % 01/29/24 03:25 [place] % (Auto) 10.7 % 01/29/24 03:25 Eos % (Auto) 2.0 % 01/29/24 03:25 Baso % (Auto) 0.3 % 01/29/24 03:25 Neut # (Auto) 5.17 10^3/uL (1.8-7.7) 01/29/24 03:25 Lymph # (Auto) 0.9 10^3/uL (0.8-4.8) 01/29/24 03:25 [place] # (Auto) 0.8 10^3/uL (0.2-0.9) 01/29/24 03:25 Eos # (Auto) 0.1 10^3/uL (0.0-0.8) 01/29/24 03:25 Baso # (Auto) 0.0 10^3/uL (0.0-0.1) 01/29/24 03:25 Nucleated RBC % (auto) 0 % 01/29/24 03:25 Nucleated RBCs # 0.0 /100WBC 01/29/24 03:25 PT 14.90 SECONDS (12.1-14.9) 01/27/24 06:00 INR 1.14 (0.8-1.2) 01/27/24 06:00 APTT 37.7 SECONDS (23.9-36.7) H 01/27/24 06:00 D-Dimer 0.91 ug/mLFEU (0-0.59) H 01/27/24 06:00 Specimen Type Arterial 01/27/24 06:14 Sample Site Brachial, right 01/27/24 06:14 ABG pH 7.42 (7.35-7.45) 01/27/24 06:14 ABG pCO2 44.3 mmHg (35-45) 01/27/24 06:14 ABG pO2 98.9 mmHg (80.0-100.0) 01/27/24 06:14 ABG HCO3 28.7 mmol/L (22-26) H 01/27/24 06:14 ABG O2 Saturation 98.4 01/27/24 06:14 ABG Base Excess 3.7 mmol/L (-2.0-2.0) H 01/27/24 06:14 Denis Test N/a 01/27/24 06:14 A-a O2 Gradient Not Reportable 01/27/24 06:14 Hematocrit 35.5 % (42-52) L 01/27/24 06:14 Hgb O2 Saturation 98.9 % (95-100) 01/27/24 06:14 Carboxyhemoglobin 1.3 %THgb (0.4-20.1) 01/27/24 06:14 Methemoglobin < 0.0 % (0.4-1.5) L 01/27/24 06:14 Total Hemoglobin 11.6 g/dL (14-18) L 01/27/24 06:14 Sodium 139.0 mmol/L (131-143) 01/27/24 06:14 Potassium 3.8 mmol/L (3.5-5.0) 01/27/24 06:14 Glucose 118.0 mg/dL (70-115) H 01/27/24 06:14 Ionized Calcium 1.3 mmol/L (1.1-1.4) 01/27/24 06:14 O2 Delivery Device Nc 01/27/24 06:14 O2 Liters/Min 3.0 % 01/27/24 06:14 Business Management Manager ID [email or web address] 01/27/24 06:14 Sodium 138 mmol/L (136-145) 01/29/24 03:25 Potassium 4.3 mmol/L (3.5-5.1) 01/29/24 03:25 Chloride 99 mmol/L (98-107) 01/29/24 03:25 Carbon Dioxide 30 mmol/L (22-29) H 01/29/24 03:25 Anion Gap 13.3 (5-19) 01/29/24 03:25 BUN 15 mg/dL (6-20) 01/29/24 03:25 Creatinine 3.6 mg/dL (0.7-1.2) H 01/29/24 03:25 GFR Calculation 17.5 mL/min (90-130) L 01/29/24 03:25 Glucose 69 mg/dL (65-115) 01/29/24 03:25 POC Glucose 106 mg/dL (70-110) 01/27/24 05:50 Estimat Average Glucose 74 01/27/24 06:00 Hemoglobin A1c 4.2 % (4.0-6.0) 01/27/24 06:00 Calculated Osmolality 285 mOsm/kg (285-295) 01/29/24 03:25 Lactic Acid 1.0 mmol/L (0.5-2.2) 01/27/24 08:50 Calcium 9.9 mg/dL (8.5-10.5) 01/29/24 03:25 Phosphorus 6.4 mg/dL (2.5-4.5) H 01/28/24 03:36 Magnesium 2.1 mg/dL (1.7-2.3) 01/28/24 03:36 Total Bilirubin 0.5 mg/dL (0.15-1.2) 01/29/24 03:25 AST 13 U/L (0-40) 01/29/24 03:25 ALT < 5 U/L (0-41) 01/29/24 03:25 Alkaline Phosphatase 150 U/L (40-130) H 01/29/24 03:25 Troponin T 5th Gen ng/L 83 ng/L (0-15) H 01/28/24 12:22 Troponin T Baseline 84 ng/L (0-15) H 01/27/24 16:37 Troponin T 120 Minute 86.51 ng/L (0-15) H 01/27/24 18:47 Delta Troponin T 2.51 ABS# (0-10) 01/27/24 18:47 Troponin T Hi Sens 6Hr 98.51 ng/L (0-15) H 01/27/24 22:58 Troponin T Hi Sens 6Hr Delta 14.51 ng/L (0-12) H* 01/27/24 22:58 Total Protein 5.9 g/dL (6.6-8.7) L 01/29/24 03:25 Albumin 3.2 g/dL (3.5-5.2) L 01/29/24 03:25 Globulin 2.7 g/dL (1.3-4.6) 01/29/24 03:25 Triglycerides 75 mg/dL (0-150) 01/28/24 03:36 Cholesterol 157 mg/dL (0-200) 01/28/24 03:36 LDL Cholesterol, Calc 103 mg/dL (50-129) 01/28/24 03:36 HDL Cholesterol 39 mg/dL (60-100) L 01/28/24 03:36 LDL/HDL Ratio 2.64 RATIO (0.00-3.22) 01/28/24 03:36 Cholesterol/HDL Ratio 4.03 mg/dL (1.0-5.00) 01/28/24 03:36 Lipase 29 U/L (13-60) 01/27/24 06:00 Procalcitonin 0.15 ng/mL (0-0.5) 01/27/24 06:00 TSH 6.93 uIU/mL (0.27-4.20) H 01/27/24 06:00 Urine Color Yellow (Yellow) 01/27/24 06:45 Urine Appearance Clear (CLEAR) 01/27/24 06:45 Urine pH 8.0 (5-7) A 01/27/24 06:45 Ur Specific [place] 1.018 (1.005-1.030) 01/27/24 06:45 Urine Protein 3+ (Negative) A 01/27/24 06:45 Urine Glucose (UA) Trace (Normal) H 01/27/24 06:45 Urine Ketones Negative (Negative) 01/27/24 06:45 Urine Blood Negative (Negative) 01/27/24 06:45 Urine Nitrate Negative (Negative) 01/27/24 06:45 Urine Bilirubin Negative (Negative) 01/27/24 06:45 Urine Urobilinogen 0.2 mg/dL (Negative) 01/27/24 06:45 Ur Leukocyte Esterase Negative (Negative) 01/27/24 06:45 Urine RBC 0-4 /hpf (0-2) H 01/27/24 06:45 Urine WBC 0-4 /hpf (0-5) H 01/27/24 06:45 Ur Squamous Epith Cells Rare /hpf (0-5) 01/27/24 06:45 Amorphous Sediment Not Reportable 01/27/24 06:45 Urine Bacteria None /hpf (NONE) 01/27/24 06:45 Urine Opiates Screen Negative ng/mL (Negative) 01/27/24 06:45 Ur Barbiturates Screen Negative ng/mL (Negative) 01/27/24 06:45 Ur Phencyclidine Scrn Negative ng/mL (Negative) 01/27/24 06:45 Ur Amphetamines Screen Negative ng/mL (Negative) 01/27/24 06:45 U Benzodiazepines Scrn Negative ng/mL (Negative) 01/27/24 06:45 Urine Cocaine Screen Negative ng/mL (Negative) 01/27/24 06:45 U Marijuana (THC) Screen Positive ng/mL (Negative) H 01/27/24 06:45 Ethyl Alcohol < 10 mg/dL (0-10) 01/27/24 06:00 Adenovirus (PCR) Not detected (NOT DETECT) 01/27/24 12:06 C. pneumoniae DNA (PCR) Not detected (NOT DETECT) 01/27/24 12:06 Coronavirus 229E (PCR) Not detected (NOT DETECT) 01/27/24 12:06 Hepatitis A IgM Ab Non-reactive (Nonreactive) 01/27/24 16:44 Hep Bs Antigen Non-reactive (Nonreactive) 01/27/24 16:44 Hep Bs Antibody 541.2 (11.5-1000) 01/27/24 16:44 Hep B Core Total Ab Non-reactive (Nonreactive) 01/27/24 16:44 Hepatitis C Antibody Non-reactive (Nonreactive) 01/27/24 16:44 Human Metapneumovir PCR Not detected (NOT DETECT) 01/27/24 12:06 Influenza A (H1) PCR Not detected (NOT DETECT) 01/27/24 12:06 Influ A (H1/09) PCR Not detected (NOT DETECT) 01/27/24 12:06 Influenza A (H3) PCR Not detected (NOT DETECT) 01/27/24 12:06 Influenza Type A (PCR) Not detected (NOT DETECT) 01/27/24 12:06 Influenza Type B (PCR) Not detected (NOT DETECT) 01/27/24 12:06 M. pneumoniae (PCR) Not detected (NOT DETECT) 01/27/24 12:06 Parainfluenza 1 (PCR) Not detected (NOT DETECT) 01/27/24 12:06 Parainfluenza 2 (PCR) Not detected (NOT DETECT) 01/27/24 12:06 Parainfluenza 3 (PCR) Not detected (NOT DETECT) 01/27/24 12:06 Parainfluenza 4 (PCR) Not detected (NOT DETECT) 01/27/24 12:06 RSV Type A (PCR) Not detected (NOT DETECT) 01/27/24 12:06 RSV Type B (PCR) Not detected (NOT DETECT) 01/27/24 12:06 Entero/Rhino (PCR) Not detected (NOT DETECT) 01/27/24 12:06 SARS-CoV-2 (PCR) Not detected (NOT DETECT) 01/27/24 12:06 MRSA (PCR) Not detected (NOT DETECTED) 01/27/24 12:05 Vitals Last Vital Signs Temp 98.3 F 01/29/24 12:00 Pulse 63 01/29/24 13:23 Resp 16 01/29/24 13:23 BP 145/86 01/29/24 12:00 Pulse Ox 96 01/29/24 13:23 O2 Del Method Nasal Cannula 01/29/24 13:23 O2 Flow Rate 3 01/29/24 13:23 Discharge Plan Discharge Patient Disposition: Home Condition: Stable Prescriptions: New amiodarone [Pacerone] 200 mg Tablet 100 mg PO DAILY Qty: 30 0RF aspirin 81 mg Tablet,Delayed Release (Dr/Ec) 81 mg PO DAILY Qty: 30 0RF doxycycline monohydrate 100 mg capsule 100 mg PO BID 7 Days Qty: 14 0RF sucralfate 100 mg/mL Suspension 1 g PO AC&BEDTIME 30 Days Qty: 1000 0RF levofloxacin 750 mg tablet 750 mg PO Q24H 7 Days Qty: 7 0RF pantoprazole [Protonix] 40 mg tablet,delayed release (DR/EC) 40 mg PO DAILY Qty: 30 0RF Continued sertraline 50 mg tablet 50 mg PO QAM Qty: 90 1RF levothyroxine 75 mcg tablet 75 mcg PO DAILY 30 Days Qty: 60 2RF clonidine HCl 0.1 mg tablet 0.1 mg PO BID PRN (Reason: high blood pressure) Rx Instructions: Give if BP is greater than systolic of 160 or diastolic of 90. Recheck BP in one hour after given. hydroxyzine HCl 25 mg tablet 25 mg PO .Q8HR PRN (Reason: Itching) nitroglycerin [Nitrostat] 0.4 mg Tablet, Sublingual 0.4 mg SUBLINGUAL Q5M PRN (Reason: Chest Pain) Rx Instructions: do not exceed 3 doses per episode acetaminophen 325 mg Tablet 650 mg PO QID PRN (Reason: Pain) cinacalcet 60 mg tablet 60 mg PO DAILY isosorbide mononitrate 30 mg tablet extended release 24 hr 30 mg PO DAILY RenaPlex-D 800 mcg-12.5 mg -2,000 unit tablet 1 tab PO DAILY sevelamer carbonate 0.8 gram powder in packet 0.8 g PO TID Veltassa 8.4 gram powder in packet 8.4 g PO DAILY Rx Instructions: Take 8.4 g mixed in water as directed on Wednesday,,Wednesday, and Wednesday. Changed hydralazine 25 mg tablet 50 mg PO TID 30 Days Qty: 180 0RF Rx Instructions: Take 1 tablet by mouth every Mon, Wed, and Fri for HTN. Discontinued amiodarone 400 mg tablet 400 mg PO DAILY Qty: 90 1RF carvedilol 12.5 mg tablet 12.5 mg PO BID Discharge Orders: Discharge Order (Routine); Ordered 01/29/24 Ordered By: Richie Loaiza Other Ambulatory Orders: US paracentesis abd w [id number] (Routine) Timeframe: 1 Week Facility: [facility] - Location: Radiology Ordered By: Richie Loaiza Referrals: Randolph Ortiz MD [Primary Care Provider] - 4-7 days Discharge Diet: As Directed Discharge Activity: Resume usual activity and Increase activity as tolerated Patient Instructions: Opioid Safety Activity Restrictions/Additional Instructions: Dysphagia level 6 soft diet. Dose of amiodarone has been changed to 100 mg daily. Carvedilol has been discontinued. Dose of hydralazine has been increased to 50 mg 3 times a day. Take antibiotics including doxycycline and Levaquin for next 7 days. Take Protonix daily. Continue to follow-up with your regular dialysis sessions. Follow-up as an outpatient for paracentesis. Discharge Attestations Time Spent in Discharge Care*: greater than 30 min Specific Discharge Activities: educating patient, discussing with pcp/other providers, discussing with director case management/social workers/dc planners, documenting/other paperwork and evaluating patient/reviewing data Status at Discharge: Cognitive status at discharge: cognitively intact , Behavioral status at discharge: can be uncooperative , Functional status at discharge: other assisted ambulation , Overall status at discharge: patient is back to baseline Quality Metrics Clinical Quality Measures [ No reported AMI, CVA or VTE this stay] Coding Level of Care Code 97168 Total time (in minutes) for Discharge: 60 Diagnoses End stage renal disease on dialysis N18.6; Z99.2 Hypertensive urgency I16.0 Congestive heart failure I50.9 Atrial fibrillation with RVR I48.91 Bradycardia R00.1 Hypothyroidism E03.9 Nausea and vomiting R11.2 Ascites R18.8 Arterial ischemic stroke, ICA, left, remote, resolved Z86.73 Hypoxia R09.02 Left lower lobe pneumonia J18.9 Moderate pulmonary hypertension I27.20
--- NOTE | 2024-01-29 14:17 | PC.NURSE ---
discharge medications phoned to [facility]since pt[facility] is not open today
--- NOTE | 2024-01-29 15:27 | PC.NURSE ---
discharge instructions given and explained to pt...he verb understanding of instructions.order for out-pt paracentesis phoned and faxed to [facility].pt discharged via w/c at this time.friend to drive pt home.
== END 2024-01-29 15:29 | disposition home or self-care (01) | DRG 304 ==
LOC: ER 06:34 → ER IP 08:27 → CSU 09:41
PROVIDERS: Admitting Provider Student in an Organized Health Care Education/Training Program; Emergency Provider Family Medicine; PCP Family Medicine; Visit Provider Student in an Organized Health Care Education/Training Program
DX: I16.0 Hypertensive urgency (principal); J18.9 Pneumonia, unspecified organism; N18.6 End stage renal disease; R18.8 Other ascites; Q61.3 Polycystic kidney, unspecified; I50.32 Chronic diastolic (congestive) heart failure; I13.2 Hypertensive heart and chronic kidney disease with heart failure and with stage 5 chronic kidney disease, or end stage renal disease; Z99.2 Dependence on renal dialysis; Z99.81 Dependence on supplemental oxygen; E03.9 Hypothyroidism, unspecified; I48.91 Unspecified atrial fibrillation; R00.1 Bradycardia, unspecified; K21.9 Gastro-esophageal reflux disease without esophagitis; G93.89 Other specified disorders of brain; I27.20 Pulmonary hypertension, unspecified; E83.39 Other disorders of phosphorus metabolism; R09.02 Hypoxemia; I08.0 Rheumatic disorders of both mitral and aortic valves; I65.23 Occlusion and stenosis of bilateral carotid arteries; Z80.1 Family history of malignant neoplasm of trachea, bronchus and lung; Z84.1 Family history of disorders of kidney and ureter; Z82.3 Family history of stroke; Z82.49 Family history of ischemic heart disease and other diseases of the circulatory system; Z79.890 Hormone replacement therapy; Z79.899 Other long term (current) drug therapy; Z88.1 Allergy status to other antibiotic agents; Z88.0 Allergy status to penicillin; Z88.8 Allergy status to other drugs, medicaments and biological substances; Z87.891 Personal history of nicotine dependence; I69.392 Facial weakness following cerebral infarction; K70.40 Alcoholic hepatic failure without coma
CPT/HCPCS: 36415; 36416; 36600; 49083; 70450; 70496; 70498; 71045; 74177; 80051; 80053; 80061; 80306; 80307; 81003; 81015; 82330; 82805; 82962; 83036; 83605; 83690; 83735; 84100; 84145; 84443; 84484; 85025; 85378; 85610; 85730; 86705; 86706; 86709; 86803; 87040; 87340; 87486; 87581; 87633; 87641; 90935; 92507; 92523; 92526; 92610; 93005; 93306; 94640; 94664; 96372; 96374; 96375; 97110; 97161; 97165; 99285; J0360; J1644; J2185; J2470; J2765; J7626

== ENCOUNTER 2024-02-01 11:00 | Day surgery (SDC) | payer MEDICARE, MEDICAID, SELFPAY ==
[2024-02-01 11:05] VITALS: BP 168/77; PULSE 73; RESP 18; TEMP 36.6; O2SAT 95
--- NOTE | 2024-02-01 11:07 | US_ITS ---
WS: [email or web address] ULTRASOUND-GUIDED THERAPEUTIC PARACENTESIS Procedure, risks, and complications have been explained to the patient. Consent is obtained. Utilizing aseptic technique and 1% buffered lidocaine, a small dermatome was made through which a 5 F rench Yueh catheter was inserted. Approximately 1800 ml of clear peritoneal fluid was obtained witho ut difficulty. No complications encountered. US/US paracentesis abd w [id number] IMPRESSION: Uncomplicated paracentesis yielding 1800 ml of peritoneal fluid.
[2024-02-01 11:09] VITALS: BMI 32.8
== END 2024-02-01 13:00 | disposition home or self-care (01) ==
LOC: GILAB 13:20
PROVIDERS: Radiology Diagnostic Radiology; PCP Family Medicine; Visit Provider Internal Medicine Nephrology
PROC: (CPT 49082; principal; 2024-02-01 12:30)
DX: R18.8 Other ascites (principal)
CPT/HCPCS: 49083

== ENCOUNTER 2024-02-08 11:54 | Day surgery (SDC) | payer MEDICARE, MEDICAID, SELFPAY ==
[2024-02-08 12:00] VITALS: BP 179/91; PULSE 73; RESP 18; TEMP 36.3; O2SAT 98; BMI 30.7
--- NOTE | 2024-02-08 12:01 | US_ITS ---
WS: [email or web address] ULTRASOUND ABDOMEN LIMITED CLINICAL INFORMATION: ascites COMPARISON: None. FINDINGS: Insufficient fluid for paracentesis US/US abdomen lmt fluid [id number] IMPRESSION: See above
== END 2024-02-08 12:35 | disposition home or self-care (01) ==
PROVIDERS: Radiology Neuroradiology; PCP Family Medicine; Visit Provider Internal Medicine Nephrology
DX: R18.8 Other ascites (principal)
CPT/HCPCS: 76705

== ENCOUNTER 2024-02-15 11:17 | Day surgery (SDC) | payer MEDICARE, MEDICAID, SELFPAY ==
[2024-02-15 11:30] VITALS: BP 146/74; PULSE 76; RESP 16; TEMP 36.1; O2SAT 93
[2024-02-15 11:32] VITALS: BMI 14.1
--- NOTE | 2024-02-15 11:57 | US_ITS ---
WS: [email or web address] Abdominal ultrasound, limited. History: Evaluate for ascites. Comparison: None. All 4 quadrants are imaged by ultrasound to evaluate for ascites. Minimal ascites in all 4 quadrants. Insufficient for paracentesis. US/US abdomen lmt fluid [id number] IMPRESSION: Insufficient ascites for paracentesis.
== END 2024-02-15 12:31 | disposition home or self-care (01) ==
PROVIDERS: Radiology Diagnostic Radiology; PCP Family Medicine; Visit Provider Internal Medicine Nephrology
DX: R18.8 Other ascites (principal)
CPT/HCPCS: 76705

== ENCOUNTER → 2024-02-22 11:18 | Day surgery (SDC) | payer MEDICARE, MEDICAID, SELFPAY ==
--- NOTE | 2024-02-22 11:36 | US_ITS ---
WS: [email or web address] Abdominal ultrasound, limited. History: Evaluate for ascites. Comparison: None. All 4 quadrants are imaged by ultrasound to evaluate for ascites. Minimal ascites in all 4 quadrants. Insufficient for paracentesis. US/US abdomen limited [id number] IMPRESSION: Insufficient ascites for paracentesis.
[2024-02-22 11:41] VITALS: BP 180/104; PULSE 72; RESP 20; TEMP 36.5; O2SAT 98; BMI 28.7
== END ==
PROVIDERS: Radiology Neuroradiology; PCP Family Medicine; Visit Provider Internal Medicine Nephrology
DX: R18.8 Other ascites (principal)
CPT/HCPCS: 76705

== ENCOUNTER 2024-03-07 11:07 | Day surgery (SDC) | payer MEDICARE, MEDICAID, SELFPAY ==
[2024-03-07 11:22] VITALS: BP 200/103; PULSE 73; RESP 18; TEMP 36.3; O2SAT 95; BMI 32.8
--- NOTE | 2024-03-07 11:38 | US_ITS ---
WS: [email or web address] ULTRASOUND ABDOMEN LIMITED CLINICAL INFORMATION: ascites COMPARISON: None. FINDINGS: Insufficient fluid for paracentesis US/US abdomen lmt fluid [id number] IMPRESSION: See above
== END 2024-03-07 11:22 | disposition home or self-care (01) ==
PROVIDERS: Radiology Neuroradiology; PCP Family Medicine; Visit Provider Internal Medicine Nephrology
DX: R18.8 Other ascites (principal)
CPT/HCPCS: 49083; 76705

== ENCOUNTER 2024-04-04 11:01 | Day surgery (SDC) | payer MEDICARE, MEDICAID, SELFPAY ==
[2024-04-04 11:10] VITALS: BP 213/111; PULSE 70; RESP 16; TEMP 36.3; O2SAT 97; BMI 30.8
--- NOTE | 2024-04-04 11:14 | US_ITS ---
WS: [email or web address] INDICATION: Ascites TECHNIQUE: Ultrasound abdomen limited for paracentesis FINDINGS: Insufficient fluid for paracentesis at this time US/US abdomen lmt fluid [id number] IMPRESSION: See above
== END 2024-04-04 11:35 | disposition home or self-care (01) ==
PROVIDERS: Radiology Neuroradiology; PCP Family Medicine
DX: R18.8 Other ascites (principal)
CPT/HCPCS: 76705

== ENCOUNTER 2024-05-09 11:05 | Day surgery (SDC) | payer MEDICARE, MEDICAID, SELFPAY ==
--- NOTE | 2024-05-09 11:24 | US_ITS ---
WS: [email or web address] ULTRASOUND-GUIDED PARACENTESIS CLINICAL INFORMATION: Chronic ascities COMPARISON: None. Procedure Informed consent: The risks, benefits, and alternatives of the procedure were discussed with the lisa ent. Verbal and written consent was obtained. Timeout: A timeout was performed to confirm the correct patient, procedure, and site. Preparation: A suitable skin site was identified. The patient was prepped and draped in usual sterile fashion. Lidocaine 1% was used for local anesthesia. Catheter: 4 [place] One-step Yueh catheter. Side: RIGHT lower quadrant. Fluid Volume: 3000 ml Color: Clear yellow DISPOSITION: Discarded safely. Complications: None. Patient disposition: Discharged from the department in stable condition. US/US paracentesis abd w [id number] IMPRESSION: Uncomplicated ultrasound-guided paracentesis. Removal of 3000 cc
[2024-05-09 11:26] VITALS: BP 119/74; PULSE 50; RESP 16; TEMP 36.8; O2SAT 98
== END 2024-05-09 12:25 | disposition home or self-care (01) ==
LOC: GILAB 11:06
PROVIDERS: Radiology Neuroradiology; PCP Family Medicine
PROC: (CPT 49082; principal; 2024-05-09 13:00)
DX: R18.8 Other ascites (principal)
CPT/HCPCS: 49083

== ENCOUNTER 2024-05-23 10:59 | Day surgery (SDC) | payer MEDICARE, MEDICAID, SELFPAY ==
[2024-05-23 11:19] VITALS: BP 158/84; PULSE 69; RESP 17; TEMP 35.6; O2SAT 96; BMI 32.8
--- NOTE | 2024-05-23 11:23 | US_ITS ---
WS: [email or web address] ULTRASOUND-GUIDED PARACENTESIS CLINICAL INFORMATION: chronic ascites COMPARISON: None. Procedure Informed consent: The risks, benefits, and alternatives of the procedure were discussed with the lisa ent. Verbal and written consent was obtained. Timeout: A timeout was performed to confirm the correct patient, procedure, and site. Preparation: A suitable skin site was identified. The patient was prepped and draped in usual sterile fashion. Lidocaine 1% was used for local anesthesia. Catheter: 4 [place] One-step Yueh catheter. Side: LEFT lower quadrant. Fluid Volume: 4250 ml Color: Clear yellow DISPOSITION: Discarded safely. Complications: None. Patient disposition: Discharged from the department in stable condition. US/US paracentesis abd w [id number] IMPRESSION: Uncomplicated ultrasound-guided paracentesis. Removal of 4250cc
== END 2024-05-23 12:28 | disposition home or self-care (01) ==
LOC: GILAB 11:00
PROVIDERS: Radiology Neuroradiology; PCP Family Medicine; Visit Provider Internal Medicine Nephrology
PROC: (CPT 49082; principal; 2024-05-23 12:00)
DX: R18.8 Other ascites (principal)
CPT/HCPCS: 49083

== ENCOUNTER 2024-06-20 11:09 | Day surgery (SDC) | payer MEDICARE, MEDICAID, SELFPAY ==
[2024-06-20 11:30] VITALS: BP 138/73; PULSE 50; RESP 18; TEMP 36.8; O2SAT 94; BMI 29.2
--- NOTE | 2024-06-20 11:44 | US_ITS ---
WS: [email or web address] ULTRASOUND-GUIDED THERAPEUTIC PARACENTESIS Procedure, risks, and complications have been explained to the patient. Consent is obtained. Utilizing aseptic technique and 1% buffered lidocaine, a small dermatome was made through which a 5 F rench Yueh catheter was inserted. Approximately 3300 ml of clear peritoneal fluid was obtained witho ut difficulty. No complications encountered. US/US paracentesis abd w [id number] IMPRESSION: Uncomplicated paracentesis yielding 3300 ml of peritoneal fluid.
== END 2024-06-20 12:54 | disposition home or self-care (01) ==
LOC: GILAB 11:10
PROVIDERS: Radiology Diagnostic Radiology; PCP Family Medicine; Visit Provider Internal Medicine Nephrology
PROC: (CPT 49082; principal; 2024-06-20 12:00)
DX: R18.8 Other ascites (principal)
CPT/HCPCS: 49083

== ENCOUNTER 2024-06-30 15:20 | Emergency (ER) | payer MEDICARE, MEDICAID, SELFPAY ==
[2024-06-30] VITALS (23 sets, daily range): BP systolic 116–180; BP diastolic 68–119; PULSE 58–71; RESP 13–18; TEMP 38.8–39.7; O2SAT 90–100; BMI 28.7
--- NOTE | 2024-06-30 15:26 | CT_ITS ---
WS: [id number] CT HEAD NONCONTRAST HISTORY: AMS, STROKE ALERT TECHNIQUE: Contiguous axial imaging performed through the brain. Bone and soft tissue windows. Sagittal and coronal reformats reviewed. All CT scans at [facility] use at least one of these dose optimization techniques: automated exposure control; mA and/or kV adjustment per patient size (includes targeted exams where dose is matched to clinical indication); or iterative reconstruction. DLP: 890.85 mGy COMPARISON: 01/27/2024 No acute intracranial hemorrhage, midline shift or mass effect. Mild atrophy and small vessel disease. Remote LEFT MCA infarct with encephalomalacia. No new area of acute edema. Moderate cerebellar atrophy also. There is an area of decreased attenuation in the RIGHT cerebellum which was not present on prior studies. Ventricles: Normal size with no hydrocephalus. No inferior displacement of the cerebellar tonsils. Paranasal sinuses: Mucoperiosteal thickening. Nasal breathing assistance. Mucoperiosteal thickening involving a large portion of the RIGHT maxillary sinus. Mastoid air cells: Large amount of fluid in the RIGHT mastoid air cells. Calvarium and scalp: Skull is intact with no soft tissue edema or swelling. CT/CT head thrombolytic [id number] IMPRESSION: 1. No acute intracranial hemorrhage or edema. 2. Large remote LEFT MCA territory infarct. 3. New area of decreased attenuation in the RIGHT cerebellum. Infarct versus m ass. 4. RIGHT mastoid effusion. Notified Redd Lester DO at 06/30/2024 3:41 PM. I was unable to speak with Dr. Lester at the time of this call. payroll accounting clerk notified Dr. Lester.
--- NOTE | 2024-06-30 15:29 | ECG_ITS ---
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: : 1965 Requested By: Redd Lester Order Number: [id number] Nate MD: NICKI FRIAS Measurements Intervals [place] Rate: 69 P: 63 HI: 187 QRS: -78 QRSD: 123 T: -4 QT: 435 QTc: 468 Interpretive Statements SINUS RHYTHM LEFT ANTERIOR FASCICULAR BLOCK [QRS AXIS <= -45, QR IN I, RS IN II] Compared to ECG 01/27/2024 20:31:00 Left anterior fascicular block now present Sinus bradycardia no longer present Intraventricular conduction delay no longer present Electronically Signed On 07-02-2024 21:04:22 ESOL INSTRUCTOR by NICKI FRIAS [email or web address]
[2024-06-30] MEDS: LORazepam 2 mg/mL INJ 1 mL 1 MG IVP ×2 (15:32→16:22)
--- NOTE | 2024-06-30 15:32 | ED_ITS ---
HPI - Altered Mental Status 2 General: Chief Complaint: Neuro Symptoms/Deficit Stated Complaint: stroke alert - seizure Time Seen by Provider: 06/30/24 15:22 Source: EMS Mode of arrival: EMS Limitations: altered mental status History of Present Illness: Patient had an episode began approximately 1428 in which she was observed to have a seizure and EMS was notified and transported in the emergency department. He is a dialysis patient who has not received dialysis today. Related Data Home Medications ?Medication ?Instructions ?Recorded ?Confirmed nitroglycerin 0.4 mg sublingual 0.4 mg sublingual Q5M PRN Chest 06/09/23 06/30/24 tablet (Nitrostat) Pain clonidine HCl 0.1 mg tablet 0.1 mg PO BID PRN high blo od 07/13/23 06/30/24 pressure hydroxyzine HCl 25 mg tablet 25 mg PO Q8H PRN Itching 07/13/23 06/30/24 acetaminophen 325 mg tablet 650 mg PO QID PRN Pain 06/30/24 sevelamer carbonate 0.8 gram oral 0.8 g PO TID 4 06/30/24 powder packet vit B,C-folic ac 800 mcg-zinc 12.5 1 tab PO DAILY 12/2206/30/24 mg-selen-D3 2,000 unit-vit E tablet (RenaPlex-D) cinacalcet 60 mg tablet 60 mg PO DAILY 01/27/2412/15 isosorbide mononitrate 30 mg 30 mg PO DAILY 01/27/24 0 06/30/24 tablet,extended release 24 hr amiodarone 100 mg tablet 100 mg PO DAILY 05/08/2412/15 carvedilol 12.5 mg tablet 12.5 mg PO BID 05/08/2412/15 escitalopram oxalate 10 mg tablet 10 mg PO DAILY 05/0806/30/24 hydralazine 25 mg tablet 25 - 50 mg PO DAILY 05/08/24 06/30/24 sucroferric oxyhydroxide 500 mg See Rx Instructions .R oute .COMPLEX 06/30/24 06/30/24 chewable tablet (Velphoro) Previous Rx's ?Medication ?Instructions ?Recorded levothyroxine 75 mcg tablet 75 mcg PO DAILY 30 days #6 0 tabs 02/26/23 sertraline 50 mg tablet 50 mg PO QAM #90 tabs aspirin 81 mg tablet,delayed 81 mg PO DAILY #30 tabs 0 01/29/24 release pantoprazole 40 mg tablet,delayed 40 mg PO DAILY #30 t abs 01/29/24 release (Protonix) Allergies Allergy/AdvReac Type Severity Reaction Status Date / Time Penicillins Allergy ALGY-Anaphy Verified 05/22/24 12:33 laxis Sulfa (Sulfonamide Allergy Unknown Verified 05/22/24 12:33 Antibiotics) fluoxetine (From Prozac) AdvReac Mild stomach Verified 05/22/24 12:33 upset Review of Systems 2 General: Reports: ROS unobtainable due to medical condition PFSH ED 2 PFSH: Medical History Moderate pulmonary hypertension Cannabis use disorder Hypoxia End stage renal disease on dialysis Congestive heart failure Grade 3 diastolic dysfunction on echocardiogram from 01/27/2024 Hypertension Hyperkalemia Atrial fibrillation with RVR Unstable angina Acute exacerbation of CHF (congestive heart failure) Acute hyperkalemia Shortness of breath Accelerated hypertension Hypertension Elevated troponin I level Chest pain Altered mental status Malaise Anemia in chronic kidney disease Hypoglycemia Neuropathy, lumbosacral (radicular) End stage renal disease on dialysis Tobacco use disorder Gout Major depressive disorder History of stroke Hypothyroidism GERD (gastroesophageal reflux disease) Dilated aortic root Right bundle branch block (RBBB) on electrocardiogram (ECG) Ascites Nephrogenic ascites, gets regular paracentesis Bilateral hydronephrosis Incomplete bladder emptying Chronic anemia Polycystic kidney disease CVA (cerebral vascular accident) Surgical History AV fistula left arm S/P hemodialysis catheter insertion (03/13/20) 23cm long exchanged right IJ Removed on 06/11/2020 History of colonoscopy 2020 at [facility] History of surgical procedure Peritoneal dialysis catheter placement by Dr. Kamara 2015 Family History Mother Chronic kidney disease (CKD) Stroke Father Cancer lung Brother Hypertension Other End stage renal disease on dialysis Denies family history of Diabetes CAD (coronary artery disease) Clotting disorder Dementia Hyperlipidemia Psychiatric illness Anesthesia complication Bleeding disorder Lung disease Social History (Reviewed 06/30/24 @ 16:18 by AGUILAR Cherry Smoking and tobacco/nicotine status: former use of tobacco/nicotine Quit status (tobacco/nicotine): has quit using Alcohol intake: never Substance/Drug Use: current Substance/Drug use frequency: few times a week Marital status: Number of children: 1 Current occupational status: disabled Current gender identity: Male Agree to transfusion: Yes Physical Exam 2 Narrative: Patient does not respond to verbal stimulus. He is noted to be posturing with eyes deviated to the left as well as tonic left neck contraction Const: EXAM LIMITATIONS: altered mental status NUTRITIONAL APPEARANCE: o verweight ORIENTATION/CONSCIOUSNESS: Yes patient obtunded HENMT: COMMON NORMALS: normocephalic, Normal nasal mucous membranes and turbinates present and moist oral mucous membranes HEAD & SCALP: n ormocephalic FACE & SINUS: face symmetric NOSE: Normal nasal mucous membranes and turbinates present Eye: COMMON NORMALS: conjunctivae normal CONJUNCTIVA: Yes conjunctivae normal OTHER: Bilateral deviation to the left with tonic-clonic movements extraocular muscles Neck/C-Spine: COMMON NORMALS: No carotid bruits Chest: COMMONS NORMALS: normal inspection of the chest Resp: COMMON NORMALS: No use of accessory muscles and clear to auscultation bilaterally AUSCULTATION: clear to auscultation bilaterally and diminished lung sounds Cardio: COMMON NORMALS: regular rate, regular rhythm, No murmurs present (Cardio) and Peripheral pulses 2+ throughout RATE: regular rate RHYTHM: r egular rhythm PERIPHERAL PULSES: Peripheral pulses 2+ throughout GI: COMMON NORMALS: Soft to palpation INSPECTION: Yes central obesity P ALPATION: Yes Soft to palpation Back/Pelvis: COMMON NORMALS: thoracic and lumbar spine normal to inspection Extremity: COMMON NORMALS: capillary refill normal NARRATIVE EXTREMITY EXAM: He has a AV fistula in the left forearm with a palpable thrill Neuro: FINA COMA SCALE: document GCS findings [place] coma scale eye opening: None Fina coma scale verbal response: Sounds [place] coma scale motor response: None [place] coma scale total score: 4 Procedures Intubation Time out performed: Yes sedative: Etomidate Mg Given: 30 paralytic: Rocuronium Mg Given: 120 Laryngoscope: fiber optic video scope Assist Device Used: fiber optic device ET Tube Size: 8 ET Tube Uncuffed: Yes Tube Secured Depth (cm): 24 Tube Secured Location: lips Tube Placement Confirmation: visualized tube passing through cords, equal breath sounds bilaterally, no breath sounds over epigastrium and confirmation by capnometry Patient Tolerated Procedure: well Intubation Complications: none Course 2 ED course: Family reported to staff that he had had flulike symptoms for several days prior to his presentation today. Reevaluation(s): Reevaluation #1: Patient like still continues to have what appears to be seizure equivalent with rapid eye movement with deviation to the left and tonic neck turns to the left. He was given additional dose of Ativan on return from CT. Dr. Soliz attending neurologist is also in the emergency department this time. Will be loading him with fosphenytoin has a additional anticonvulsant. His CT shows left temporal encephalomalacia from a remote stroke. No hemorrhage. Patient is not a candidate for thrombolytic therapy at this time. Time: 15:36 Reevaluation #2: The patient still is not well-controlled seizures and therefore we are planning on intubation to control airway continue with seizure control. Time: 15:58 Reevaluation #3: Patient is now intubated and sedated with propofol receiving his anticonvulsants. Dr. Soliz has requested an EEG to ensure that he is not actively seizing still. That will be performed later. The patient will be temporarily held in the emergency department pending an ICU bed. Time: 16:18 Additional Reevaluation(s): Lumbar puncture attempted. Patient was difficult to position appropriately and had significant prevertebral edema. Attempts were unsuccessful in obtaining some cerebrospinal fluid. Vital Signs: Vital signs: Vital Signs Temperature 103.5 F H 06/30/24 18:35 Pulse Rate 67 06/30/24 20:04 Respiratory Rate 16 06/30/24 20:04 Blood Pressure 169/96 06/30/24 20:04 Pulse Oximetry 94 06/30/24 18:59 Oxygen Delivery Me thod Mechanical Ventil ation 06/30/24 16:45 Oxygen Flow Rate 4 06/30/24 16:37 Fraction of Inspir ed Oxygen 40 06/30/24 18:23 MDM - Altered Mental Status Medical Decision Making Patient presented and noted in the HPI. History is limited to that which we obtained from EMS initially and later some additional limited illuminating history in the family. Patient has a known history of end-stage renal disease on hemodialysis as well as a prior CVA. He presented after having a witnessed stroke and was noted to be hypertensive and was brought to our facility as a potential stroke. He received the usual code stroke intervention with immediate CT and evaluation by the emergency department physician as well as the consulting neurologist. He was noted to be in status left epilepticus and had a GCS of 4 requiring airway protection mechanical ventilation. He has seizures were controlled initially with benzodiazepines followed by fosphenytoin loading dose which was reduced because of his chronic renal failure as well as usual care with IV fluids, temperature control, and mechanical ventilation. His laboratories were reassuring and although he did have an elevated lactate at 3.2. His RSV was positive, flu a was positive. Chest x-ray showed mild interstitial edema but no evidence of acute infiltrate. Urinalysis did not reveal any evidence of acute urinary tract infection. The primary concern was if not the patient was paralyzed and intubated that there was no way to discern whether the patient was having any ongoing seizure activity and this facility did not have EEG capability at this time due to staffing. There was some thought given to possible contributory meningitis or encephalitis and an LP was attempted but because of patient's body habitus, prevertebral edema and distorted landmarks attempt was unsuccessful. He was given a loading dose of ceftriaxone empirically. Patient is being transferred to [facility] for acute care and continued evaluation. Lab Data I reviewed the patient's lab results. 06/30/24 15:31 06/30/24 15:[address] 06/30/24 15:26 IMPRESSION: 1. No acute intracranial hemorrhage or edema. 2. Large remote LEFT MCA territory infarct. 3. New area of decreased attenuation in the RIGHT cerebellum. Infarct versus mass. 4. RIGHT mastoid effusion. Notified Redd Lester DO at 06/30/2024 3:41 PM. I was unable to speak with Dr. Lester at the time of this call. insurance policy issue clerk notified Dr. Lester. Chest X-Ray 06/30/24 15:55 IMPRESSION: 1. Interval placement of endotracheal tube with the tip low in position approximately 2 cm above the indigo. 2. Interval placement of nasogastric tube with the tip projecting over the region of the proximal stomach. 3. Cardiomegaly with pulmonary vascular congestion or mild interstitial pulmonary edema suggesting congestive heart failure. Please correlate clinically. ADDENDUM: 06/30/24 [id number] THIS REPORT CONTAINS FINDINGS THAT MAY BE CRITICAL TO PATIENT CARE. The findings were verbally communicated via telephone conference with REDD LESTER at 4:26 PM ELECTRICAL ASSEMBLIES SUPERVISOR on 06/30/2024. The findings were acknowledged and understood. Carotid Doppler Study 06/30/24 16:11 IMPRESSION: No carotid arterial stenosis. REFERENCES: SRU CRITERIA. The degree of internal carotid artery stenosis is based on criteria defined by the Society of Radiologists in Ultrasound (SRU). Normal is no stenosis. Mild is less than 50% stenosis. Moderate is 50-69% stenosis. Severe is greater than 69% stenosis to near occlusion. Near occlusion is a markedly narrowed lumen. Total occlusion is no detectable patent lumen. Laboratory Results WBC 6.95 10^3/uL (3.29-11.43) 06/30/24 15: RBC 3.81 10^6/uL (3.85-5.65) L 06/30/24 15:31 Hgb 11.50 g/dL (11.27-16.99) 06/30/24 15:31 Hct 35.9 % (37-53) L 06/30/24 15: MCV 94.2 fl (82-101) 06/30/24 15:31 MCH 30.2 pg (27-33) 06/30/24 15: MCHC 32.0 g/dL (30-55) 06/30/24 15: RDW 14.5 % (12.1-15.1) 06/30/24 15:31 Plt Count 197 10^3/cmm (157-399) 06/30/24 15: MPV 10.0 fL (7.4-10.4) 06/30/24 15:31 Neut % (Auto) 87.8 % 06/30/24 15:31 Lymph % (Auto) 5.3 % 06/30/24 15:31 [place] % (Auto) 6.2 % 06/30/24 15:31 Eos % (Auto) 0.0 % 06/30/24 15:31 Baso % (Auto) 0.3 % 06/30/24 15:31 Neut # (Auto) 6.10 10^3/uL (1.8-7.7) 06/30/24 15:31 Lymph # (Auto) 0.4 10^3/uL (0.8-4.8) L 06/30/24 15:31 [place] # (Auto) 0.4 10^3/uL (0.2-0.9) 06/30/24 15:31 Eos # (Auto) 0.0 10^3/uL (0.0-0.8) 06/30/24 15:31 Baso # (Auto) 0.0 10^3/uL (0.0-0.1) 06/30/24 15:31 Nucleated RBC % (auto) 0 % 06/30/24 15: Nucleated RBCs # 0.0 /100WBC 06/30/24 15: PT 14.90 SECONDS (12.1-14.9) 06/30/24 15: INR 1.09 (0.8-1.2) 06/30/24 15: APTT 42.7 SECONDS (23.9-36.7) H 06/30/24 15:31 Specimen Type Arterial 06/30/24 17:55 Sample Site Radial, right 06/30/24 17:55 ABG pH 7.45 (7.35-7.45) 06/30/24 17:55 ABG pCO2 36.1 mmHg (35-45) 06/30/24 17:55 ABG pO2 230.0 mmHg (80.0-100.0) H 06/30/24 17:55 ABG PO2/FiO2 Ratio 230 06/30/24 17:55 ABG HCO3 24.8 mmol/L (22-26) 06/30/24 17:55 ABG O2 Saturation > 99.1 06/30/24 17:55 ABG Base Excess 0.9 mmol/L (-2.0-2.0) 06/30/24 17:55 Denis Test N/a 06/30/24 17:55 A-a O2 Gradient 56.2 mmHg (5-10) H 06/30/24 17:55 Hematocrit 37.2 % (42-52) L 06/30/24 17:55 Hgb O2 Saturation 97.9 % (95-100) 06/30/24 17:55 Carboxyhemoglobin 0.7 %THgb (0.4-20.1) 06/30/24 17:55 Methemoglobin 1.4 % (0.4-1.5) 06/30/24 17:55 Total Hemoglobin 12.1 g/dL (14-18) L 06/30/24 17:55 Sodium 133.0 mmol/L (131-143) 06/30/24 17:55 Potassium 4.2 mmol/L (3.5-5.0) 06/30/24 17:55 Glucose 110.0 mg/dL (70-115) 06/30/24 17:55 Ionized Calcium 1.2 mmol/L (1.1-1.4) 06/30/24 17:55 O2 Delivery Device Vent 06/30/24 17:55 FiO2 100.0 % 06/30/24 17:55 Tidal Volume 0.50 06/30/24 17:55 PEEP 6.0 cmH20 06/30/24 17:55 Change Management Coordinator ID Gd 06/30/24 17:55 Sodium 132 mmol/L (136-145) L 06/30/24 15:31 Potassium 4.4 mmol/L (3.5-5.1) 06/30/24 15:31 Chloride 91 mmol/L (98-107) L 06/30/24 15:31 Carbon Dioxide 24 mmol/L (22-29) 06/30/24 15:31 Anion Gap 21.4 (5-19) H 06/30/24 15:31 BUN 24 mg/dL (6-20) H 06/30/24 15:31 Creatinine 5.4 mg/dL (0.7-1.2) H 06/30/24 15:31 GFR Calculation 10.9 mL/min (90-130) L 06/30/24 15:31 Glucose 95 mg/dL (65-115) 06/30/24 15:31 POC Glucose 92 mg/dL (70-110) 06/30/24 15:28 Calculated Osmolality 278 mOsm/kg (285-295) L 06/30/24 15:31 Lactic Acid 3.1 mmol/L (0.5-2.2) H 06/30/24 15:31 Calcium 9.5 mg/dL (8.5-10.5) 06/30/24 15:31 Total Bilirubin 0.7 mg/dL (0.15-1.2) 06/30/24 15:31 AST 13 U/L (0-40) 06/30/24 15:31 ALT < 5 U/L (0-41) 06/30/24 15:31 Alkaline Phosphatase 130 U/L (40-130) 06/30/24 15:31 C-Reactive Protein 39.8 mg/L (0.0-4.9) H 06/30/24 15:31 Total Protein 7.2 g/dL (6.6-8.7) 06/30/24 15: Albumin 3.6 g/dL (3.5-5.2) 06/30/24 15: Globulin 3.6 g/dL (1.3-4.6) 06/30/24 15:31 Urine Color Yellow (Yellow) 06/30/24 16:00 Urine Appearance Clear (CLEAR) 06/30/24 16:00 Urine pH 8.0 (5-7) A 06/30/24 16:00 Ur Specific [place] 1.019 (1.005-1.030) 06/30/24 16:00 Urine Protein 4+ (Negative) A 06/30/24 16:00 Urine Glucose (UA) Trace (Normal) H 06/30/24 16:00 Urine Ketones Negative (Negative) 06/30/24 16:00 Urine Blood Negative (Negative) 06/30/24 16:00 Urine Nitrate Negative (Negative) 06/30/24 16:00 Urine Bilirubin Negative (Negative) 06/30/24 16:00 Urine Urobilinogen 0.2 mg/dL (Negative) 06/30/24 16:00 Ur Leukocyte Esterase Negative (Negative) 06/30/24 16:00 Urine RBC 0-2 /hpf (0-2) 06/30/24 16:00 Urine WBC 0-5 /hpf (0-5) 06/30/24 16:00 Ur Squamous Epith Cells 0-5 /hpf (0-5) 06/30/24 16:00 Amorphous Sediment Not Reportable 06/30/24 16:00 Urine Bacteria None seen /hpf (NONE) 06/30/24 16:00 Hyaline Casts 0.40 /lpf 06/30/24 16:00 Urine Opiates Screen Negative ng/mL (Negative) 06/30/24 16:00 Ur Barbiturates Screen Negative ng/mL (Negative) 06/30/24 16:00 Phenytoin 0.8 ug/mL (10-20) L 06/30/24 15:31 Ur Phencyclidine Scrn Negative ng/mL (Negative) 06/30/24 16:00 Ur Amphetamines Screen Negative ng/mL (Negative) 06/30/24 16:00 U Benzodiazepines Scrn Negative ng/mL (Negative) 06/30/24 16:00 Urine Cocaine Screen Negative ng/mL (Negative) 06/30/24 16:00 U Marijuana (THC) Screen Positive ng/mL (Negative) H 06/30/24 16:00 Coronavirus (PCR) Negative (Negative) 06/30/24 15:59 Influenza A (PCR) Positive (Negative) 06/30/24 15:59 Influenza Type B (PCR) Negative (Negative) 06/30/24 15:59 RSV (PCR) Positive (Negative) A 06/30/24 15:59 All radiology interpretation(s) finalized by discharge EKG Data EKG 1: I personally reviewed and interpreted this EKG as follows: Interpretation: Resting EKG reveals ventricular rate of 59 bpm. Normal CO interval, QRS duration, corrected QT interval. Marked leftward axis. Findings are consistent with left anterior Heema block. No acute ST-T wave changes of ischemic nature noted at this time. Critical Care Time 2 Critical Care Time: Critical Care Time: Yes Total Critical Care Time: 45 Attestation: Acute care time included managing care, reviewing laboratories, consulting with specialist physicians and arranging consultation for acute transfer. Discharge Plan Discharge Patient Disposition: Xfer Short-Term Hosp Clinical Impression: Status epilepticus, Influenza A, RSV (respiratory syncytial virus infection), End stage renal disease on dialysis Condition: Stable Referrals: Randolph Ortiz MD [Primary Care Provider] - Print Language: Swedish Coding Level of Care Code ED Various Exceptionalities Teacher for Eric Sandhu
[2024-06-30 15:35] LABS: Glucose Point of Care 92 mg/dL (70-110)
[2024-06-30 15:39] LABS: Basophils % 0.3 %; Hematocrit 35.9 % (37-53); Lymphocytes # 0.4 10^3/uL (0.8-4.8); Lymphocytes % 5.3 %; Mean Corpuscular Hemoglobin 30.2 pg (27-33); Mean Corpuscular Volume 94.2 fl (82-101); Monocytes # 0.4 10^3/uL (0.2-0.9); Monocytes % 6.2 %; Neutrophils % 87.8 %; Nucleated Red Blood Cells % 0 %; Platelet Count 197 10^3/cmm (157-399); Red Blood Count 3.81 10^6/uL (3.85-5.65); Red Cell Distribution Width 14.5 % (12.1-15.1); White Blood Count 6.95 10^3/uL (3.29-11.43)
[2024-06-30] MEDS: etomidate 2 mg/mL INJ SDV 10 mL 30 MG IVP (15:45)
[2024-06-30] MEDS: rocuronium 10 mg/mL INJ 5mL 120.4 MG IVP (15:46)
[2024-06-30] MEDS: propofol 1,000 MG/100 ML INJ 3.87 MG IV (15:48)
[2024-06-30] MEDS: fosphenytoin 1,000 MG in sodium chloride 0.9% (100 ml) 100 ML 240 MG IV (15:51)
--- NOTE | 2024-06-30 15:55 | XRR_ITS ---
PROCEDURE INFORMATION: Exam: XR Chest Exam date and time: 06/30/2024 3:59 PM Age: 59 years old Clinical indication: Device placement; Ett placement (vent status); Additional info: Post intubation TECHNIQUE: Imaging protocol: Radiologic exam of the chest. Views: 1 view. COMPARISON: CR (CHEST, ) 02/14/2023 7:52 PM FINDINGS: Tubes, catheters and devices: Interval placement of endotracheal tube with the tip low in position approximately 2 cm above the indigo. Interval placement of nasogastric tube with the tip in the region of the proximal stomach. Lungs: Diffusely increased interstitial markings with slight cephalization of flow suggesting pulmonary vascular congestion versus mild interstitial pulmonary edema. No dense focal consolidation seen. Pleural spaces: No significant pleural effusion. Heart/Mediastinum: [id number] cardiomegaly. Bones/joints: Intact. Other findings: None. XR/XR chest 1V portable [id number] IMPRESSION: 1. Interval placement of endotracheal tube with the tip low in position approximately 2 cm above the indigo. 2. Interval placement of nasogastric tube with the tip projecting over the region of the proximal stomach. 3. Cardiomegaly with pulmonary vascular congestion or mild interstitial pulmonary edema suggesting congestive heart failure. Please correlate clinically.
[2024-06-30 16:01] LABS: INR 1.09 (0.8-1.2)
[2024-06-30 16:02] LABS: Partial Thromboplastin Time 42.7 SECONDS (23.9-36.7)
[2024-06-30 16:06] LABS: Alanine Aminotransferase < 5 U/L (0-41); Albumin Level 3.6 g/dL (3.5-5.2); Alkaline Phosphatase 130 U/L (40-130); Anion Gap 21.4 (5-19); Aspartate Amino Transferase 13 U/L (0-40); Blood Urea Nitrogen 24 mg/dL (6-20); Calcium 9.5 mg/dL (8.5-10.5); Carbon Dioxide 24 mmol/L (22-29); Chloride 91 mmol/L (98-107); Globulin 3.6 g/dL (1.3-4.6); Glomerular Filtration Rate 10.9 mL/min (90-130); Glucose 95 mg/dL (65-115); Osmolality Calculated 278 mOsm/kg (285-295); Potassium 4.4 mmol/L (3.5-5.1); Sodium 132 mmol/L (136-145); Total Bilirubin 0.7 mg/dL (0.15-1.2); Total Protein 7.2 g/dL (6.6-8.7)
--- NOTE | 2024-06-30 16:11 | USR_ITS ---
PROCEDURE INFORMATION: Exam: US Duplex Bilateral Extracranial Arteries; Complete; Carotid Arteries Exam date and time: 06/30/2024 5:42 PM Age: 59 years old Clinical indication: Injury or trauma; Other: Stroke; Unconscious; Additional info: Assess stroke TECHNIQUE: Imaging protocol: Real-time duplex ultrasound scan of the bilateral extracranial arteries combining cardozo scale, color Doppler and spectral waveform analysis with image documentation. Complete exam. Exam focused on the carotid arteries. COMPARISON: No relevant prior studies available. FINDINGS: Right common carotid artery: Unremarkable. No occlusion or stenosis. Waveforms are normal. Peak systolic velocity measures 52 cm/s. Right internal carotid artery: Unremarkable. No occlusion or stenosis. Waveforms are normal. Peak systolic velocity measures 59 cm/s. Right ICA/CCA ratio: Within normal limits measured at 1.3. Right external carotid artery: No stenosis in the origin. Right vertebral artery: Unremarkable. Antegrade flow. Left common carotid artery: Unremarkable. No occlusion or stenosis. Waveforms are normal. Peak systolic velocity measures 68 cm/s. Left internal carotid artery: Unremarkable. No occlusion or stenosis. Waveforms are normal. Peak systolic velocity measures 49 cm/s. Left ICA/CCA ratio: Within normal limits measured at 1.1. Left external carotid artery: No stenosis in the origin. Left vertebral artery: Unremarkable. Antegrade flow. US/CV carotid duplex BI* [id number] IMPRESSION: No carotid arterial stenosis. REFERENCES: SRU CRITERIA. The degree of internal carotid artery stenosis is based on criteria defined by the Society of Radiologists in Ultrasound (SRU). Normal is no stenosis. Mild is less than 50% stenosis. Moderate is 50-69% stenosis. Severe is greater than 69% stenosis to near occlusion. Near occlusion is a markedly narrowed lumen. Total occlusion is no detectable patent lumen.
--- NOTE | 2024-06-30 16:19 | P.CONIM_ITS ---
Providers/Reason For Consult 2 Consulting Physician/Specialty*: Issac Soliz MD neurology and epilepsy Reason for Consult*: Acute care/status epilepticus manifested as repetitive eye fluttering and deviation of his eyes to the left associated with left arm and left leg trembling with decreased level consciousness requiring intravenous Ativan 1-1/2 mg en route via EMS and 2 mg in the [facility] emergency department room #10 and intubation with IV propofol bolus and drip and IV fosphenytoin 1 g IV load followed by 100 mg IV every 8 hours Primary Care Provider: Randolph Ortiz MD History of Present Illness History of Present Illness Navneet Savage is a 59 year old male history of stroke November 2023 with residual right lower facial weakness, abnormal noncontrast head CT secondary to Encephalomalacia in the left temporoparietal lobe 01/27/2024, new since 04/26/2023, CT angiogram of head and neck 01/27/2024 revealed RIGHT cervical ICA stenosis 50 to 60%. LEFT cervical ICA stenosis 50 to 60%. Dense calcified plaque to the cavernous carotid arteries estimated stenosis 50%. No cerebral occlusions and no aneurysm. Slight paucity of vessels in the distal LEFT MCA territory at the site of a remote infarct. No acute thrombus. The patient also has a history of atrial fibrillation, end-stage renal disease on hemodialysis, left AV fistula graft, history of alcohol abuse with liver failure associated with ascites requiring weekly ascites drainage ascites drainage, last ascites drainage 02/01/2024 and patient reported to miss hemodialysis on 06/30/2024 since he was not feeling well. Around 2:45 PM on 06/30/2024 the patient was witnessed to experience cyanosis followed by loss of consciousness and questionable right sided weakness and status seizures manifested as deviation of his eyes to the left with clonic tonic activity involving the left arm and left leg. Patient was evaluated by EMS and given 1- 1/2 mg of Ativan en route. Code stroke was initiated at 3:03 PM on 06/30/2024. In the emergency department room #10 the patient was still in status epilepticus seizures with fluttering deviation of his eyes to the left and tonic-clonic activity involving the left arm and left leg with decreased level consciousness. Patient was given 1 mg of Ativan by the ER physician with continued seizure activity. Ativan was repeated x 1 with slight improvement of seizures but seizures continue to occur. Therefore patient was given IV fosphenytoin 1 g IV load followed by 100 mg IV every 8 hours and patient was intubated to protect his airway. Prior to intubation patient was given rocuronium (Zemuron) 120.4 mg IV once and given IV propofol bolus followed by IV propofol drip for status epilepticus. Patient currently on ventilator. Prior to intubation the patient was observed moving both lower extremities. Pupils 3 mm. Prior to intubation and rocuronium, patient eyes intermittently were midline with no obvious fluttering. But possibility of subclinical status epilepticus cannot be excluded. Due to there being no inpatient EEG staffing, EEG could not be obtained. Glucose Accu-Chek [address] 06/30/2024 IMPRESSION: 1. No acute intracranial hemorrhage or edema. 2. Large remote LEFT MCA territory infarct. 3. New area of decreased attenuation in the RIGHT cerebellum. Infarct versus mass. 4. RIGHT mastoid effusion. NIH score = unable to assess secondary to status epilepticus Drug allergies: Penicillin which resulted in anaphylaxis Sulfa (sulfonamide antibiotics) type reaction unknown Prozac which resulted in GI upset Current medications: Tylenol 650 mg p.o. 4 times daily, as needed Amiodarone 100 mg p.o. daily Aspirin 81 mg p.o. daily Carvedilol 12.5 mg p.o. twice daily Cinacalcet 60 mg p.o. daily Clonidine 0.1 mg p.o. twice daily, as needed elevated blood pressure Hydralazine 25 mg to 50 mg p.o. as needed Hydroxyzine 25 mg p.o. every 8 hours as needed for itching Hydroxyzine 25mg p.o. every 8 hours as needed for itching Isosorbide mononitrate 30 mg p.o. daily Synthroid 75 mcg p.o. daily Nitrostat 0.4 mg sublingual every 5 minutes as needed for chest pain Veltassa 8.4 mg p.o. daily for hyperkalemia Lexapro 10 mg p.o. daily Sevelamer 0.8 mg p.o. 3 times daily Velphoro to use as directed Protonix 40 mg p.o. daily Zoloft 50 mg p.o. daily Past medical history: Atrial fibrillation Congestive heart failure Remote left cerebral infarction involving the left parietal temporal region with encephalomalacia changes in the same regions Remote left cerebral infarction 2 months ago (November 2023) End-stage renal disease on hemodialysis Left AV fistula graft for hemodialysis Hypertension Liver disease with ascites requiring ascites drainage weekly Hypothyroidism History of alcohol abuse Major depressive disorder Nocturnal enuresis Gastroesophageal reflux disease Gout Cannabis use disorder Neuropathy Lumbosacral radiculopathy Itching Ventricular tachycardia Polycystic kidney GI bleed Past medications: Zoloft 50 mg p.o. daily RenaPlex 1 p.o. daily Habits: Unknown Family history: Mother Chronic kidney disease (CKD) Stroke Father Cancer lung Brother Hypertension Other End stage renal disease on dialysis Review of Systems 2 General: Reports: ROS unobtainable due to endotracheal tube and ROS unobtainable due to medical condition Medications/Allergies Home Medications ?Medication ?Instructions ?Recorded ?Confirmed ?Last Taken ?Type levothyroxine 75 mcg tablet 75 mcg PO DAILY 30 days #6 0 tabs 02/26/23 06/30/24 06/20/24 Rx sertraline 50 mg tablet 50 mg PO QAM #90 tabs 06/30/24 06/20/24 Rx nitroglycerin 0.4 mg sublingual 0.4 mg sublingual Q5M PRN Chest 06/09/23 06/30/24 06/20/24 History tablet (Nitrostat) Pain clonidine HCl 0.1 mg tablet 0.1 mg PO BID PRN high blo od 07/13/23 06/30/24 06/20/24 History pressure hydroxyzine HCl 25 mg tablet 25 mg PO Q8H PRN Itching 07/13/23 06/30/24 06/20/24 History acetaminophen 325 mg tablet 650 mg PO QID PRN Pain 06/30/24 06/20/24 History sevelamer carbonate 0.8 gram oral 0.8 g PO TID 4 06/30/24 06/20/24 History powder packet vit B,C-folic ac 800 mcg-zinc 12.5 1 tab PO DAILY 12/2206/30/24 06/20/24 History mg-selen-D3 2,000 unit-vit E tablet (RenaPlex-D) cinacalcet 60 mg tablet 60 mg PO DAILY 01/27/2412/1506/20/24 History isosorbide mononitrate 30 mg 30 mg PO DAILY 01/27/24 0 06/30/24 06/20/24 History tablet,extended release 24 hr aspirin 81 mg tablet,delayed 81 mg PO DAILY #30 tabs 0 01/29/24 06/30/24 06/20/24 Rx release pantoprazole 40 mg tablet,delayed 40 mg PO DAILY #30 t abs 01/29/24 06/30/24 06/20/24 Rx release (Protonix) amiodarone 100 mg tablet 100 mg PO DAILY 05/08/2412/1506/20/24 History carvedilol 12.5 mg tablet 12.5 mg PO BID 05/08/2412/1506/20/24 History escitalopram oxalate 10 mg tablet 10 mg PO DAILY 05/0806/30/24 06/20/24 History hydralazine 25 mg tablet 25 - 50 mg PO DAILY 05/08/24 06/30/24 06/20/24 History sucroferric oxyhydroxide 500 mg See Rx Instructions .R oute .COMPLEX 06/30/24 06/30/24 Unknown History chewable tablet (Velphoro) Allergies Allergy/AdvReac Type Severity Reaction Status Date / Time Penicillins Allergy ALGY-Anaphy Verified 05/22/24 12:33 laxis Sulfa (Sulfonamide Allergy Unknown Verified 05/22/24 12:33 Antibiotics) fluoxetine (From Prozac) AdvReac Mild stomach Verified 05/22/24 12:33 upset Current Medications Generic Name Dose Route Start Last Admin Trade Name Freq PRN Reason Stop Dose Admin Fosphenytoin Sodium 1,000 mg/ 120 mls @ 240 mls/hr 06/30/24 16:00 06/30/24 15:51 Sodium Chloride IV 06/30/24 16:29 240 mls/hr ONCE ONE Administration PFSH Acute 2 PFSH: Medical History Moderate pulmonary hypertension Cannabis use disorder Hypoxia End stage renal disease on dialysis Congestive heart failure Grade 3 diastolic dysfunction on echocardiogram from 01/27/2024 Hypertension Hyperkalemia Atrial fibrillation with RVR Unstable angina Acute exacerbation of CHF (congestive heart failure) Acute hyperkalemia Shortness of breath Accelerated hypertension Hypertension Elevated troponin I level Chest pain Altered mental status Malaise Anemia in chronic kidney disease Hypoglycemia Neuropathy, lumbosacral (radicular) End stage renal disease on dialysis Tobacco use disorder Gout Major depressive disorder History of stroke Hypothyroidism GERD (gastroesophageal reflux disease) Dilated aortic root Right bundle branch block (RBBB) on electrocardiogram (ECG) Ascites Nephrogenic ascites, gets regular paracentesis Bilateral hydronephrosis Incomplete bladder emptying Chronic anemia Polycystic kidney disease CVA (cerebral vascular accident) Surgical History AV fistula left arm S/P hemodialysis catheter insertion (03/13/20) 23cm long exchanged right IJ Removed on 06/11/2020 History of colonoscopy 2019 at [facility] History of surgical procedure Peritoneal dialysis catheter placement by Dr. Kamara 2015 Family History Mother Chronic kidney disease (CKD) Stroke Father Cancer lung Brother Hypertension Other End stage renal disease on dialysis Denies family history of Diabetes CAD (coronary artery disease) Clotting disorder Dementia Hyperlipidemia Psychiatric illness Anesthesia complication Bleeding disorder Lung disease Social History Smoking and tobacco/nicotine status: former use of tobacco/nicotine Quit status (tobacco/nicotine): has quit using Alcohol intake: never Substance/Drug Use: current Substance/Drug use frequency: few times a week Marital status: Number of children: 1 Current occupational status: disabled Current gender identity: Male Agree to transfusion: Yes Vitals/I&O/Wt Last Vital Signs Resp 14 06/30/24 16:07 FiO2 100 06/30/24 16:07 Weight last 48 hrs Weight 189 lb 9.561 oz Physical Exam 2 Narrative: Patient displays elevated systolic blood pressure greater than 200 and diastolic blood pressure greater than 101. Patient clinically in status epilepticus with deviation of his eyes fluttering to the left with tonic-clonic activity involving the left arm and left leg with decreased level consciousness. Patient was evaluated by EMS and given 1-1/2 mg of Ativan en route. Code stroke was initiated at 3:03 PM on 06/30/2024. In the emergency department room #10 the patient was still in status epilepticus seizures with fluttering deviation of his eyes to the left and tonic-clonic activity involving the left arm and left leg with decreased level consciousness. Patient was given 1 mg of Ativan by the ER physician with continued seizure activity. Ativan was repeated x 1 with slight improvement of seizures but seizures continue to occur. Therefore patient was given IV fosphenytoin 1 g IV load followed by 100 mg IV every 8 hours and patient was intubated to protect his airway. Prior to intubation patient was given rocuronium (Zemuron) 120.4 mg IV once and given IV propofol bolus followed by IV propofol drip for status epilepticus. Patient currently on ventilator. Prior to intubation the patient was observed moving both lower extremities. Pupils 3 mm. Prior to intubation and rocuronium, patient eyes intermittently were midline with no obvious fluttering. But possibility of subclinical status epilepticus cannot be excluded. Unable to get EEG since it is late afternoon on 06/30/2024 Throat clear. Lots revealed no obvious wheezing. Heart revealed no obvious ectopy. Abdomen revealed no ascites. Left arm revealed hemodialysis graft without signs of obvious infection. Plantar responses flexor bilaterally there was no clonus. Patient did intermittently move his lower extremities bilaterally spontaneously. No obvious movement of his arms. Data 06/30/24 15:31 06/30/24 15:31 A&P Assessment and plan (1) Status epilepticus: Impression: 1. Status epilepticus seizures with fluttering deviation of his eyes to the left and tonic-clonic activity involving the left arm and left leg with decreased level consciousness. 2. Stat noncontrast head CT 06/30/2024 no acute intracranial hemorrhage or edema. Large remote LEFT MCA territory infarct. New area of decreased attenuation in the RIGHT cerebellum. Infarct versus mass. RIGHT mastoid effusion. 3. CT angiogram of head and neck 01/27/2024 revealed RIGHT cervical ICA stenosis 50 to 60%. LEFT cervical ICA stenosis 50 to 60%. 4. Abnormal noncontrast head CT secondary to Encephalomalacia in the left temporoparietal lobe 01/27/2024, new since 04/26/2023, 5. End-stage renal disease on hemodialysis 6. Ascites 7. History of liver disease Plan: 1. Continue IV fosphenytoin 100 mg IV every 8 hours 2. Trough free and total Dilantin level 07/01/2024 3. Agree with IV propofol for status epilepticus 4. Since we are unable to get continuous EEG monitoring to assess monitor for subclinical status epilepticus recommend transfer patient to a facility that has this capability 5. I was just informed by the emergency room physician Dr. Lester the patient has a fever of greater than 101 ?F and family reporting patient has been experiencing flulike symptoms for the past few days. Dr. Lester will perform lumbar puncture to assess for CSF infection prior to transfer to facility that has the capability of performing continuous video surface EEG monitoring to address status epilepticus and to assess for subclinical status epilepticus and to assist in guiding anticonvulsant medication treatment. 6. Note: Since the patient's head CT did not reveal any acute findings and patient experiencing status epilepticus, patient was not a candidate for intravenous thrombolytics and no intravenous thrombolytics were administered. PDMP PDMP Reviewed: Not Reviewed Consult Attestations 2 Medical Necessity Statement: Patient was evaluated by neurology for status epilepticus and acute care emergency department room #10 Coding Level of Care Code 05741 Diagnoses Status epilepticus G40.901
[2024-06-30 16:37] LABS: Bilirubin Urine Negative (Negative); Blood Urine Negative (Negative); Glucose Urine UA Trace (Normal); Ketones Urine Negative (Negative); Leukocyte Esterase Urine Negative (Negative); Nitrate Urine Negative (Negative); Protein Urine 4+ (Negative); Specific Gravity, Urine 1.019 (1.005-1.030); Urine Appearance Clear (CLEAR); Urine Color Yellow (Yellow); Urobilinogen Urine 0.2 mg/dL (Negative)
[2024-06-30 16:42] LABS: Add Urine Microscopic? YES; Bacteria Urine None Seen /hpf; RBC Urine 0-2 /hpf (0-2); Squamous Epithelial Cell Urine 0-5 /hpf (0-5); WBC Urine 0-5 /hpf (0-5)
[2024-06-30 16:44] LABS: Amphetamines Screen Urine Negative (Negative); Barbiturates Screen Urine Negative (Negative); Benzodiazepines Screen Urine Negative (Negative); Cocaine Screen Urine Negative (Negative); Opiate Screen Urine Negative (Negative); PCP Screen Urine Negative (Negative); THC Screen Urine Positive (Negative)
--- NOTE | 2024-06-30 16:47 | PC.NURSE ---
pt triage & assessment charted by Lynnette Plummer RN by mistake; triage and assessment completed by this nurse
--- NOTE | 2024-06-30 16:57 | PC.NURSE ---
per caregiver, pt has serious hypertension history and did not take any home medications today. for approx 1 wk pt hasnt being feel well, n/v; pt has been around positive sick contacts.
[2024-06-30] MEDS: acetaminophen 650 mg Supp PR ×2 (17:00→18:50)
[2024-06-30 17:09] LABS: Phenytoin Dilantin 0.8 ug/mL (10-20)
[2024-06-30 17:41] LABS: Lactic Sepsis W/Reflex 3.1 mmol/L (0.5-2.2)
[2024-06-30 17:45] LABS: C Reactive Protein 39.8 mg/L (0.0-4.9)
[2024-06-30 18:13] LABS: ABG PCO2 36.1 mmHg (35-45); ABG PH Result 7.45 (7.35-7.45); Alveolar-Arterial Oxygen Gradi 56.2 mmHg (5-10); Arterial Blood Gas Hematocrit 37.2 % (42-52); Base Excess ABG 0.9 mmol/L (-2.0-2.0); Blood Gas Operator Identificat GD; Blood Gas Sample Site Radial, right; Blood Gas Sample Type Arterial; Carboxyhemoglobin 0.7 %THgb (0.4-20.1); HCO3 ABG 24.8 mmol/L (22-26); HGB O2 Sat 97.9 % (95-100); Ionized Calcium Level - ABG 1.2 mmol/L (1.1-1.4); Methemoglobin 1.4 % (0.4-1.5); Oxygen Device VENT; Oxygen Saturation ABG > 99.1; PO2 FiO2 Ratio Arterial Blood 230; Potassium Level - ABG 4.2 mmol/L (3.5-5.0); Total Hemoglobin 12.1 g/dL (14-18)
[2024-06-30 18:40] LABS: Covid PCR NEGATIVE (Negative); Influenza A POSITIVE (Negative); Influenza B NEGATIVE (Negative)
[2024-06-30 18:46] LABS: Respiratory Syncytial Virus Ce POSITIVE (Negative)
[2024-06-30 18:50] LABS: Reflex Lactate Order REFLEX LACTIC ORDERD
--- NOTE | 2024-06-30 18:58 | PC.NURSE ---
Assumed care from Helena MORRISON at shift change.
[2024-06-30] MEDS: lactated ringers 1,000 ML 999 ML IV (19:57)
[2024-06-30] MEDS: cefTRIAXone 2,000 mg SDV 2000 MG IVP (20:01)
[2024-06-30] MEDS: HYDROMORPHONE HCL 0.5 MG/0.5 ML INJ 1 MG IVP (20:11)
--- NOTE | 2024-06-30 21:22 | PC.NURSE ---
Bedside report given to Jay sulphate tester with [facility]. All questions and concerns were addressed at time of report.
== END 2024-06-30 21:47 | disposition short-term general hospital (02) ==
PROVIDERS: Emergency Provider Emergency Medicine; PCP Family Medicine
DX: G40.909 Epilepsy, unspecified, not intractable, without status epilepticus (principal); J10.1 Influenza due to other identified influenza virus with other respiratory manifestations; B33.8 Other specified viral diseases; I13.2 Hypertensive heart and chronic kidney disease with heart failure and with stage 5 chronic kidney disease, or end stage renal disease; N18.6 End stage renal disease; I50.9 Heart failure, unspecified; Z86.73 Personal history of transient ischemic attack (TIA), and cerebral infarction without residual deficits; Z87.891 Personal history of nicotine dependence; Z11.52 Encounter for screening for COVID-19
CPT/HCPCS: 31500; 36415; 36416; 36600; 51702; 70450; 71045; 80051; 80053; 80185; 80306; 81001; 82330; 82805; 82962; 83605; 85025; 85610; 85730; 86140; 87040; 87070; 87205; 87637; 93005; 93880; 94002; 94799; 96365; 96366; 96367; 96375; 96376; 99291; 99292; J0696; J1171; J2060; J2704; J3490; J7120; Q2009

== ENCOUNTER 2024-08-15 11:46 | Emergency (ER) | payer MEDICARE, MEDICAID, SELFPAY ==
[2024-08-15 11:51] VITALS: BP 180/104; PULSE 68; RESP 18; TEMP 36.5; O2SAT 95
--- NOTE | 2024-08-15 11:55 | ECG_ITS ---
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 Measurements Intervals [place] Rate: 65 P: 16 MN: 140 QRS: -32 QRSD: 112 T: -28 QT: 493 QTc: 515 Interpretive Statements SINUS RHYTHM LEFT AXIS DEVIATION [QRS AXIS < -30] MODERATE INTRAVENTRICULAR CONDUCTION DELAY [110+ ms QRS DURATION] NONSPECIFIC ST & T-WAVE ABNORMALITY PROLONGED QT INTERVAL CRITICAL TEST RESULT Compared to ECG 06/30/2024 15:29:48 Left-axis deviation now present Intraventricular conduction delay now present T-wave abnormality now present Prolonged QT interval now present Left anterior fascicular block no longer present Electronically Signed On 08-16-2024 12:35:29 CDT by China Wheat M.D. [email or web address]
--- NOTE | 2024-08-15 11:59 | W.ED.GENADLT ---
HPI - General Adult General: Chief complaint: General Medical Stated complaint: High BP Time Seen by Provider: 08/15/24 11:48 Source: patient Mode of arrival: ambulatory Limitations: no limitations History of Present Illness: 59-year-old male is very well-known to the ER has a history of hypertension he does have a scheduled outpatient paracentesis when he checked at the clinic his blood pressure was high. Patient states he did not take any of his blood pressure his meds this morning he is known to be noncompliant blood pressure here is 180/104 he has no symptoms he denies any chest pain denies any headache. Associated symptoms: Deny chest pain, dyspnea, headache(s), nausea, rash or vomiting Related Data Home Medications ?Medication ?Instructions ?Recorded ?Confirmed nitroglycerin 0.4 mg sublingual 0.4 mg sublingual Q5M PRN Chest 06/09/23 08/14/24 tablet (Nitrostat) Pain clonidine HCl 0.1 mg tablet 0.1 mg PO BID PRN high blood 07/13/23 08/14/24 pressure hydroxyzine HCl 25 mg tablet 25 mg PO Q8H PRN Itching 07/13/23 08/14/24 acetaminophen 325 mg tablet 650 mg PO QID PRN Pain 09/14/23 08/14/24 sevelamer carbonate 0.8 gram oral 0.8 g PO TID 01/04/24 08/14/24 powder packet vit B,C-folic ac 800 mcg-zinc 12.5 1 tab PO DAILY 01/04/24 08/14/24 mg-selen-D3 2,000 unit-vit E tablet (RenaPlex-D) cinacalcet 60 mg tablet 60 mg PO BEDTIME 01/27/24 08/14/24 isosorbide mononitrate 30 mg 30 mg PO DAILY 01/27/24 08/14/24 tablet,extended release 24 hr amiodarone 100 mg tablet 100 mg PO DAILY 05/08/24 08/14/24 carvedilol 12.5 mg tablet 12.5 mg PO BID 05/08/24 08/14/24 escitalopram oxalate 10 mg tablet 10 mg PO DAILY 05/08/24 08/14/24 hydralazine 25 mg tablet 25 - 50 mg PO DAILY 05/08/24 08/14/24 sucroferric oxyhydroxide 500 mg 500 mg PO TID 06/30/24 08/14/24 chewable tablet (Velphoro) Previous Rx's ?Medication ?Instructions ?Recorded levothyroxine 75 mcg tablet 75 mcg PO DAILY 30 days #60 tabs 02/26/23 sertraline 50 mg tablet 50 mg PO QAM #90 tabs 05/21/23 aspirin 81 mg tablet,delayed 81 mg PO DAILY #30 tabs 01/29/24 release pantoprazole 40 mg tablet,delayed 40 mg PO DAILY #30 tabs 01/29/24 release (Protonix) Allergies Allergy/AdvReac Type Severity Reaction Status Date / Time Penicillins Allergy ALGY-Anaphy Verified 08/14/24 11:21 laxis Sulfa (Sulfonamide Allergy Unknown Verified 08/14/24 11:21 Antibiotics) fluoxetine (From Prozac) AdvReac Mild stomach Verified 08/14/24 11:21 upset Review of Systems Const: Denies: fever(s), chills, body aches or change in appetite Eyes: Denies: blurry vision or eye discomfort ENMT: Denies: throat pain or dental pain Card: Denies: chest pain Resp: Denies: dyspnea GI: Denies: abdominal pain, nausea, vomiting or diarrhea : Denies: dysuria Musc: Denies: neck pain or back pain Skin/Breast: Denies: rash Neuro: Denies: headache(s) PFSH ED PFSH: Medical History Moderate pulmonary hypertension Cannabis use disorder Hypoxia End stage renal disease on dialysis Congestive heart failure Grade 3 diastolic dysfunction on echocardiogram from 01/27/2024 Hypertension Hyperkalemia Atrial fibrillation with RVR Unstable angina Acute exacerbation of CHF (congestive heart failure) Acute hyperkalemia Shortness of breath Accelerated hypertension Hypertension Elevated troponin I level Chest pain Altered mental status Malaise Anemia in chronic kidney disease Hypoglycemia Neuropathy, lumbosacral (radicular) End stage renal disease on dialysis Tobacco use disorder Gout Major depressive disorder History of stroke Hypothyroidism GERD (gastroesophageal reflux disease) Dilated aortic root Right bundle branch block (RBBB) on electrocardiogram (ECG) Ascites Nephrogenic ascites, gets regular paracentesis Bilateral hydronephrosis Incomplete bladder emptying Chronic anemia Polycystic kidney disease CVA (cerebral vascular accident) Surgical History AV fistula left arm S/P hemodialysis catheter insertion (03/13/20) 23cm long exchanged right IJ Removed on 06/11/2020 History of colonoscopy 2019 at [facility] History of surgical procedure Peritoneal dialysis catheter placement by Dr. Kamara 2015 Family History Mother Chronic kidney disease (CKD) Stroke Father Cancer lung Brother Hypertension Other End stage renal disease on dialysis Denies family history of Diabetes CAD (coronary artery disease) Clotting disorder Dementia Hyperlipidemia Psychiatric illness Anesthesia complication Bleeding disorder Lung disease Social History Smoking and tobacco/nicotine status: former use of tobacco/nicotine Quit status (tobacco/nicotine): has quit using Alcohol intake: never Substance/Drug Use: current Substance/Drug use frequency: few times a week Marital status: Number of children: 1 Current occupational status: disabled Current gender identity: Male Agree to transfusion: Yes Physical Exam Const: COMMON NORMALS: no acute distress, patient oriented x3 and healthy appearing HENMT: COMMON NORMALS: normocephalic and atraumatic HEAD & SCALP: normocephalic and atraumatic Eye: COMMON NORMALS: Equal, round and reactive pupils present and EOMs intact bilaterally PUPIL: Yes Equal, round and reactive pupils present Neck/C-Spine: COMMON NORMALS: full ROM and supple Chest: COMMONS NORMALS: normal inspection of the chest and normal palpation of entire chest wall Resp: COMMON NORMALS: normal respiratory effort, No retractions, No use of accessory muscles and clear to auscultation bilaterally AUSCULTATION: clear to auscultation bilaterally Cardio: COMMON NORMALS: regular rate, regular rhythm and No murmurs present (Cardio) RATE: regular rate RHYTHM: regular rhythm GI: COMMON NORMALS: Normal to inspection, nondistended, normoactive bowel sounds present, Soft to palpation, non-tender and no masses PALPATION: Yes Soft to palpation Extremity: COMMON NORMALS: normal to inspection and full ROM Neuro: COMMON NORMALS: patient oriented x3, moves all extremities and no focal motor deficits Psych: COMMON NORMALS: mental status grossly normal, Normal thought process present and cooperative THOUGHT PROCESS: Normal thought process present Skin: COMMON NORMALS: no rashes or lesions noted and no wounds GENERAL SKIN EXAM: no rashes or lesions noted Course Vital Signs: Vital signs: Vital Signs Temperature 97.7 F 08/15/24 11:51 Pulse Rate 68 08/15/24 11:51 Respiratory Rate 18 08/15/24 11:51 Blood Pressure 182/97 08/15/24 12:11 Pulse Oximetry 95 08/15/24 11:51 Oxygen Delivery Me thod Nasal Cannula 08/15/24 11:51 Oxygen Flow Rate 3 08/15/24 11:51 [facility] - General Adult Medical Decision Making Patient presents here with hypertension he is noncompliant his meds did not take them this morning he has no medical complaints he does not want blood drawn did give him a dose of his blood pressure medicine here he stable for discharge follow-up with PCP return if worsening. Medical Records I reviewed the patient's medical records. No radiology studies performed this visit Discharge Plan Discharge Patient Disposition: Home Clinical Impression: Hypertension Condition: Stable Prescriptions: No Action sertraline 50 mg tablet 50 mg PO QAM Qty: 90 1RF levothyroxine 75 mcg tablet 75 mcg PO DAILY 30 Days Qty: 60 2RF clonidine HCl 0.1 mg tablet 0.1 mg PO BID PRN (Reason: high blood pressure) Rx Instructions: Give if BP is greater than systolic of 160 or diastolic of 90. Recheck BP in one hour after given. hydroxyzine HCl 25 mg tablet 25 mg PO Q8H PRN (Reason: Itching) nitroglycerin [Nitrostat] 0.4 mg Tablet, Sublingual 0.4 mg SUBLINGUAL Q5M PRN (Reason: Chest Pain) Rx Instructions: do not exceed 3 doses per episode acetaminophen 325 mg Tablet 650 mg PO QID PRN (Reason: Pain) cinacalcet 60 mg tablet 60 mg PO BEDTIME isosorbide mononitrate 30 mg tablet extended release 24 hr 30 mg PO DAILY aspirin 81 mg Tablet,Delayed Release (Dr/Ec) 81 mg PO DAILY Qty: 30 0RF pantoprazole [Protonix] 40 mg tablet,delayed release (DR/EC) 40 mg PO DAILY Qty: 30 0RF carvedilol 12.5 mg tablet 12.5 mg PO BID hydralazine 25 mg tablet 25 - 50 mg PO DAILY Rx Instructions: TAKE 1 TAB BY MOUTH ON MON, WED, AND WED. THEN 2 TABS ON , , SAT, AND SUN escitalopram oxalate 10 mg tablet 10 mg PO DAILY amiodarone 100 mg tablet 100 mg PO DAILY RenaPlex-D 800 mcg-12.5 mg -2,000 unit tablet 1 tab PO DAILY sevelamer carbonate 0.8 gram powder in packet 0.8 g PO TID Velphoro 500 mg tablet,chewable 500 mg PO TID Rx Instructions: CRUSH OR CHEW AND SWALLOW 1 TABLET 3 TIMES A DAY WITH MEALS. Discharge Orders: Discharge ED (Routine); Ordered 08/15/24 Ordered By: Ghada Fontanez Referrals: Randolph Ortiz MD [Primary Care Provider] - 4-7 days Discharge Diet: Advance as tolerated Discharge Activity: Resume usual activity Patient Instructions: Hypertension (ED) Print Language: Persian Coding Level of Care Code ED Specialist Physician for Eric Sandhu
[2024-08-15 12:11] VITALS: BP 182/97
[2024-08-15] MEDS: hyDRALAzine 25 mg Tablet PO (12:11)
[2024-08-15] MEDS: cloNIDine 0.1 mg Tablet PO (12:11)
[2024-08-15 12:27] VITALS: BP 182/97; PULSE 65; O2SAT 95
== END 2024-08-15 12:29 | disposition home or self-care (01) ==
PROVIDERS: Emergency Provider Emergency Medicine; PCP Family Medicine
DX: I13.2 Hypertensive heart and chronic kidney disease with heart failure and with stage 5 chronic kidney disease, or end stage renal disease (principal); Z79.82 Long term (current) use of aspirin; Z87.891 Personal history of nicotine dependence; Z86.73 Personal history of transient ischemic attack (TIA), and cerebral infarction without residual deficits; N18.6 End stage renal disease; I50.9 Heart failure, unspecified; Z99.2 Dependence on renal dialysis
CPT/HCPCS: 93005; 99283; J9999

== ENCOUNTER → 2024-09-12 10:47 | Day surgery (SDC) | payer MEDICARE, MEDICAID, SELFPAY ==
[2024-09-12 11:07] VITALS: BP 115/72; PULSE 56; RESP 20; TEMP 36.7; O2SAT 96
[2024-09-12 11:10] VITALS: BMI 28.1
--- NOTE | 2024-09-12 11:30 | US_ITS ---
WS: [id number] ULTRASOUND-GUIDED THERAPEUTIC PARACENTESIS Procedure, risks, and complications have been explained to the patient. Consent is obtained. Utilizing aseptic technique and 1% buffered lidocaine, a small dermatome was made through which a 5 [place] Yueh catheter was inserted. Approximately 7800 ml of clear peritoneal fluid was obtained without difficulty. No complications encountered. US/US paracentesis abd w [id number] IMPRESSION: Uncomplicated paracentesis yielding 7800 ml of peritoneal fluid.
== END ==
LOC: GILAB 10:48
PROVIDERS: Radiology Diagnostic Radiology; PCP Family Medicine; Visit Provider Family Medicine
PROC: (CPT 49082; principal; 2024-09-12 12:30)
DX: R18.8 Other ascites (principal)
CPT/HCPCS: 49083

== ENCOUNTER 2024-09-26 10:46 | Day surgery (SDC) | payer MEDICARE, MEDICAID, SELFPAY ==
--- NOTE | 2024-09-26 11:38 | US_ITS ---
WS: [id number] ULTRASOUND-GUIDED THERAPEUTIC PARACENTESIS Procedure, risks, and complications have been explained to the patient. Consent is obtained. Utilizing aseptic technique and 1% buffered lidocaine, a small dermatome was made through which a 5 [place] Yueh catheter was inserted. Approximately 4500 ml of clear peritoneal fluid was obtained without difficulty. No complications encountered. US/US paracentesis abd w [id number] IMPRESSION: Uncomplicated paracentesis yielding 4500 ml of peritoneal fluid.
[2024-09-26 11:40] VITALS: BP 136/69; PULSE 61; RESP 18; TEMP 36.1; O2SAT 92
[2024-09-26 11:48] VITALS: BMI 27.8
== END 2024-09-26 12:37 | disposition home or self-care (01) ==
LOC: GILAB 10:47
PROVIDERS: Radiology Diagnostic Radiology; PCP Family Medicine; Visit Provider Family Medicine
PROC: (CPT 49082; principal; 2024-09-26 12:30)
DX: R18.8 Other ascites (principal); K72.90 Hepatic failure, unspecified without coma
CPT/HCPCS: 49083

== ENCOUNTER 2024-10-03 08:42 | Emergency (ER) | payer MEDICARE, MEDICAID, SELFPAY ==
[2024-10-03] VITALS (8 sets, daily range): BP systolic 128–207; BP diastolic 74–130; PULSE 94–109; RESP 18; TEMP 36.9; O2SAT 93–95; BMI 26.6
--- NOTE | 2024-10-03 09:15 | XR_ITS ---
WS: [id number] Exam: XR chest 1V portable [id number] Date/Time of Exam: 10/03/2024 9:17 AM Reason For Exam: AMS Comparison 06/30/2024. There is cardiac enlargement with pulmonary vascular congestion and pulmonary edema suggesting acute CHF. Small RIGHT basal pleural effusion noted. Fluid in the RIGHT pleural fissure. The heart is enlarged. No pneumothorax. The mediastinum is normal in contour. Monitoring leads superimpose the chest. XR/XR chest 1V portable [id number] IMPRESSION: 1. Cardiac enlargement with pulmonary vascular congestion and pulmonary edema s uggesting acute CHF. Small RIGHT basal pleural effusion.
--- NOTE | 2024-10-03 09:15 | CT_ITS ---
WS: [id number] CT HEAD NONCONTRAST HISTORY: AMS TECHNIQUE: Contiguous axial imaging performed through the brain. Bone and soft tissue windows. All CT scans at [facility] use at least one of these dose optimization techniques: automated exposure control; mA and/or kV adjustment per patient size (includes targeted exams where dose is matched to clinical indication); or iterative reconstruction. DLP: 2274.39 mGy.cm COMPARISON: 06/30/2024 01/27/2024, Acute bilateral extra-axial hematomas. RIGHT subdural hematoma begins towards the vertex and extends inferiorly over the temporal lobe. Very slight mass effect upon the RIGHT cerebrum. Diameter of the hematoma is approximately 5 mm. Small extra-axial hematoma is all probably also a subdural hematoma with a maximum diameter of 5.5 mm centered adjacent to the LEFT temporal lobe. No significant mass effect or midline shift. Moderate atrophy and small vessel disease. 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 Ventricles: Mildly prominent ventricles and extra-axial spaces. No intraventricular blood identified. No blood in the basal cisterns. Heavily calcified tentorium. Calcification along the interhemispheric falx. Scalp calcifications. Paranasal sinuses: Very mild mucoperiosteal thickening in the maxillary sinuses. No air-fluid levels. Mastoid air cells: Fluid bilaterally in the mastoid air cells, much greater on the RIGHT. This has progressed since 06/30/2024. Calvarium and scalp: Skull is intact with no soft tissue edema or swelling. CT/CT head wo con* [id number] IMPRESSION: 1. Bilateral acute extra-axial hematomas. 2. RIGHT subdural hematoma begins over the high parietal vertex and extends in feriorly with a maximum diameter of 5 mm. Minimal contact and displacement of t he cerebrum. No midline shift. 3. LEFT extra-axial subdural hematoma centered at the level of the temporal lo be with a maximum diameter of 5.5 mm. 4. No intraventricular blood or midline shift. 5. 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 6. Worsening mastoiditis. Notified MARIA GUADALUPE Castellanos at 10/03/2024 12:42 PM.
--- NOTE | 2024-10-03 09:17 | ECG_ITS ---
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 Measurements Intervals [place] Rate: 102 P: 37 LA: 178 QRS: -69 QRSD: 101 T: 67 QT: 342 QTc: 446 Interpretive Statements SINUS TACHYCARDIA MODERATE INTRAVENTRICULAR CONDUCTION DELAY NONSPECIFIC ST & T-WAVE ABNORMALITY Compared to ECG 08/15/2024 11:57:13 Prolonged QT interval no longer present Electronically Signed On 10-06-2024 09:06:28 CDT by Nikki Beyer M.D. [email or web address]
--- NOTE | 2024-10-03 09:17 | W.ED.AMS ---
Documented by User: MARIA GUADALUPE Castellanos 10/03/24 13:40 HPI - Altered Mental Status General: Chief Complaint: Altered Mental Status Stated Complaint: AMS Time Seen by Provider: 10/03/24 09:05 Source: family and EMS Mode of arrival: EMS Limitations: altered mental status History of Present Illness: Patient is a 59-year-old male known to our emergency department with a very extensive past medical history including CHF, end-stage renal disease on dialysis, pulmonary hypertension, liver disease/ascites requiring frequent paracenteses, previous CVA, thyroid disease, hypertension, among many others here for altered mental status. Family states patient was normal yesterday evening. They state they found him this morning in the floor of the kitchen and he was significantly altered. Family does state he has attended all of his recent dialysis appointments with his last appointment being yesterday. Patient arrives significantly altered. He is unable to answer any questions. He is extremely hypertensive. Mildly tachycardic. MD complaint: altered mental status Onset (ago): hour(s) Timing confirmed by: family member Severity: severe Consistency of symptoms: Constant Context: liver disease Associated symptoms: Reports no associated symptoms Related Data Home Medications ?Medication ?Instructions ?Recorded ?Confirmed amlodipine 10 mg tablet 10 mg PO DAILY 10/03/24 10/03/24 apixaban 5 mg tablet (Eliquis) 5 mg PO BID 10/03/24 10/03/24 atorvastatin 40 mg tablet 40 mg PO DAILY 10/03/24 10/03/24 carvedilol 12.5 mg tablet 12.5 mg PO BID 10/03/24 10/03/24 cinacalcet 30 mg tablet 30 mg PO DAILY 10/03/24 10/03/24 clonidine HCl 0.1 mg tablet 0.1 mg PO TID 10/03/24 10/03/24 hydralazine 25 mg tablet See Rx Instructions .Route .COMPLEX 10/03/24 10/03/24 isosorbide mononitrate 30 mg 30 mg PO DAILY 10/03/24 10/03/24 tablet,extended release 24 hr levetiracetam 500 mg tablet 500 mg PO BID 10/03/24 10/03/24 levothyroxine 75 mcg tablet 75 mcg PO DAILY 10/03/24 10/03/24 lisinopril 40 mg tablet 40 mg PO QAM 10/03/24 10/03/24 [id number]-fxipkyfhf-zikafgxt 3.5 1 drp ophthalmic (eye) Q8H 10/03/24 10/03/24 mg/mL-10,000 unit/mL-0.1% eye drops nifedipine 90 mg tablet,extended 90 mg PO DAILY 10/03/24 10/03/24 release 24 hr pantoprazole 40 mg tablet,delayed 40 mg PO DAILY 10/03/24 10/03/24 release sertraline 50 mg tablet 50 mg PO QAM 10/03/24 10/03/24 sucroferric oxyhydroxide 500 mg 500 mg PO TID 10/03/24 10/03/24 chewable tablet (Velphoro) Allergies Allergy/AdvReac Type Severity Reaction Status Date / Time Penicillins Allergy ALGY-Anaphy Verified 09/29/24 11:43 laxis Sulfa (Sulfonamide Allergy Unknown Verified 09/29/24 11:43 Antibiotics) fluoxetine (From Prozac) AdvReac Mild stomach Verified 09/29/24 11:43 upset Review of Systems General: Reports: ROS unobtainable due to medical condition and ROS unobtainable due to mental status PFS ED PFSH: Medical History Moderate pulmonary hypertension Cannabis use disorder Hypoxia End stage renal disease on dialysis Congestive heart failure Grade 3 diastolic dysfunction on echocardiogram from 01/27/2024 Hypertension Hyperkalemia Atrial fibrillation with RVR Unstable angina Acute exacerbation of CHF (congestive heart failure) Acute hyperkalemia Shortness of breath Accelerated hypertension Hypertension Elevated troponin I level Chest pain Altered mental status Malaise Anemia in chronic kidney disease Hypoglycemia Neuropathy, lumbosacral (radicular) End stage renal disease on dialysis Tobacco use disorder Gout Major depressive disorder History of stroke Hypothyroidism GERD (gastroesophageal reflux disease) Dilated aortic root Right bundle branch block (RBBB) on electrocardiogram (ECG) Ascites Nephrogenic ascites, gets regular paracentesis Bilateral hydronephrosis Incomplete bladder emptying Chronic anemia Polycystic kidney disease CVA (cerebral vascular accident) Surgical History AV fistula left arm S/P hemodialysis catheter insertion (03/13/20) 23cm long exchanged right IJ Removed on 06/11/2020 History of colonoscopy 2019 at [facility] History of surgical procedure Peritoneal dialysis catheter placement by Dr. Kamara 2015 Family History Mother Chronic kidney disease (CKD) Stroke Father Cancer lung Brother Hypertension Other End stage renal disease on dialysis Denies family history of Diabetes CAD (coronary artery disease) Clotting disorder Dementia Hyperlipidemia Psychiatric illness Anesthesia complication Bleeding disorder Lung disease Social History Smoking and tobacco/nicotine status: never used tobacco/nicotine Quit status (tobacco/nicotine): has quit using Alcohol intake: never Substance/Drug Use: current Substance/Drug use frequency: few times a week Marital status: Number of children: 1 Current occupational status: disabled Current gender identity: Male Agree to transfusion: Yes Physical Exam Const: EXAM LIMITATIONS: altered mental status GENERAL APPEARANCE: disheveled and ill appearing HENMT: COMMON NORMALS: normocephalic HEAD & SCALP: normal to inspection, normocephalic and other (abrasion) FACE & SINUS: normal facial exam Eye: CONJUNCTIVA: Yes conjunctival abnormal (injection/conjunctivitis) Neck/C-Spine: COMMON NORMALS: no lymphadenopathy Chest: COMMONS NORMALS: normal inspection of the chest Resp: COMMON NORMALS: normal respiratory effort AUSCULTATION: crackles Cardio: COMMON NORMALS: regular rhythm RATE: tachycardic RHYTHM: regular rhythm GI: COMMON NORMALS: Soft to palpation INSPECTION: Yes abdominal distension and Yes other (ascities) PALPATION: Yes Soft to palpation Extremity: NARRATIVE EXTREMITY EXAM: bilateral symmetrical pitting edema Neuro: FINA COMA SCALE: document GCS findings Fina coma scale eye opening: Spontaneous Pearson coma scale verbal response: Sounds Pearson coma scale motor response: Localising Fina coma scale total score: 11 OTHER: no localizing or obvious focal deficits noted Course Consultations: Consultation #1: Dr. Sherwood ED physician-accepting trauma transfer Vital Signs: Vital signs: Vital Signs Temperature 98.4 F 10/03/24 09:09 Pulse Rate 98 10/03/24 13:29 Respiratory Rate 18 10/03/24 09:09 Blood Pressure 130/86 10/03/24 13:29 Pulse Oximetry 93 10/03/24 13:29 Oxygen Delivery Me thod Room Air 10/03/24 13:29 MDM - Altered Mental Status Medical Decision Making Patient is 59-year-old male with an extensive past medical history here with altered mental status. Family found him altered this morning after presumably a fall. Differential at time of arrival was broad including SBP, metabolic encephalopathy, sepsis, intracranial hemorrhage, drug/etoh/overdose, etc. Extensive work up initiated. White count of 17.8. Normal procalcitonin and normal lactate. Ammonia was normal. Chemistry actually looks pretty good given his chronic illness. Family does confirm he has been going to his dialysis appointments. CXR does show fluid overload. He was not given additional IV fluids here because of this. He does have a history of CHF/pulmonary edema and clinically does look fluid overloaded. He was given IV Lasix. UA is clear. Paracentesis was ordered to rule out SBP however he does not have enough fluid on US for this to be completed. He was started on IV antibiotics. CT scans are eventually obtained and show bilateral subdural hematomas. CT chest/abdomen/pelvis also obtained and shows thoracic and lumbar epidural blood. Dr. Tilley has also evaluated patient and has been involved in his care during his ED stay. Patient will be transferred ER to ER to [facility]. Medical Records I reviewed the patient's medical records. Lab Data I reviewed the patient's lab results. 10/03/24 09:00 10/03/24 09:00 Radiology Impressions Chest X-Ray 10/03/24 09:15 IMPRESSION: 1. Cardiac enlargement with pulmonary vascular congestion and pulmonary edema suggesting acute CHF. Small RIGHT basal pleural effusion. Head CT 10/03/24 09:15 IMPRESSION: 1. Bilateral acute extra-axial hematomas. 2. RIGHT subdural hematoma begins over the high parietal vertex and extends inferiorly with a maximum diameter of 5 mm. Minimal contact and displacement of the cerebrum. No midline shift. 3. LEFT extra-axial subdural hematoma centered at the level of the temporal lobe with a maximum diameter of 5.5 mm. 4. No intraventricular blood or midline shift. 5. 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 6. Worsening mastoiditis. Notified MARIA GUADALUPE Castellanos at 10/03/2024 12:42 PM. Abdomen/Pelvis CT 10/03/24 10:33 IMPRESSION: 1. Small but increasing RIGHT pleural effusion. 2. Tiny LEFT pleural effusion. 3. Enlarged heart. 4. Small bowel appears slightly dilated on the localizer image. This dilatation is difficult to confirm on the axial imaging. There is no obstructive pattern identified. 5. Known bilateral polycystic renal disease. 6. No free air. 7. Small amount of ascites. Insufficient for paracentesis. 8. Hong catheter in the urinary bladder with diffuse bladder wall thickening. 9. Extensive atherosclerosis aorta and iliac arteries. Chest CT 10/03/24 12:21 IMPRESSION: 1. Small bilateral pleural effusions, RIGHT greater than LEFT. 2. Marked cardiomegaly. 3. Pulmonary edema. 4. High density noted throughout the thoracic epidural space. This is contiguous high density beginning within the upper thoracic spine extending into the lumbar region. Due to the extensive involvement this is probably epidural blood. The epidural space can calcify. Patient does have significant calcification other locations. With history of trauma and acute subdural collections epidural blood should be considered. Notified MARIA GUADALUPE Castellanos at 10/03/2024 1:02 PM. Laboratory Results WBC 17.84 10^3/uL (3.29-11.43) H 10/03/24 09:00 RBC 3.46 10^6/uL (3.85-5.65) L 10/03/24 09:00 Hgb 10.60 g/dL (11.27-16.99) L 10/03/24 09:00 Hct 31.8 % (37-53) L 10/03/24 09:00 MCV 91.9 fl (82-101) 10/03/24 09:00 MCH 30.6 pg (27-33) 10/03/24 09:00 MCHC 33.3 g/dL (30-55) 10/03/24 09:00 RDW 16.8 % (12.1-15.1) H 10/03/24 09:00 Plt Count 244 10^3/cmm (157-399) 10/03/24 09:00 MPV 9.1 fL (7.4-10.4) 10/03/24 09:00 Neut % (Auto) 84.5 % 10/03/24 09:00 Lymph % (Auto) 6.2 % 10/03/24 09:00 Hodgeman % (Auto) 8.2 % 10/03/24 09:00 Eos % (Auto) 0.4 % 10/03/24 09:00 Baso % (Auto) 0.3 % 10/03/24 09:00 Neut # (Auto) 15.08 10^3/uL (1.8-7.7) H 10/03/24 09:00 Lymph # (Auto) 1.1 10^3/uL (0.8-4.8) 10/03/24 09:00 Hodgeman # (Auto) 1.5 10^3/uL (0.2-0.9) H 10/03/24 09:00 Eos # (Auto) 0.1 10^3/uL (0.0-0.8) 10/03/24 09:00 Baso # (Auto) 0.1 10^3/uL (0.0-0.1) 10/03/24 09:00 Nucleated RBC % (auto) 0 % 10/03/24 09:00 Nucleated RBCs # 0.0 /100WBC 10/03/24 09:00 PT 13.40 SECONDS (12.1-14.9) 10/03/24 09:00 INR 0.96 (0.8-1.2) 10/03/24 09:00 APTT 35.1 SECONDS (23.9-36.7) 10/03/24 09:00 Sodium 137 mmol/L (136-145) 10/03/24 09:00 Potassium 5.2 mmol/L (3.5-5.1) H 10/03/24 09:00 Chloride 100 mmol/L (98-107) 10/03/24 09:00 Carbon Dioxide 28 mmol/L (22-29) 10/03/24 09:00 Anion Gap 14.2 (5-19) 10/03/24 09:00 BUN 17 mg/dL (6-20) 10/03/24 09:00 Creatinine 3.6 mg/dL (0.7-1.2) H 10/03/24 09:00 GFR Calculation 17.4 mL/min (90-130) L 10/03/24 09:00 Glucose 95 mg/dL (65-115) 10/03/24 09:00 Calculated Osmolality 285 mOsm/kg (285-295) 10/03/24 09:00 Lactic Acid 1.7 mmol/L (0.5-2.2) 10/03/24 09:00 Calcium 9.6 mg/dL (8.5-10.5) 10/03/24 09:00 Phosphorus 3.6 mg/dL (2.5-4.5) 10/03/24 09:00 Magnesium 1.8 mg/dL (1.7-2.3) 10/03/24 09:00 Total Bilirubin 0.6 mg/dL (0.15-1.2) 10/03/24 09:00 AST 23 U/L (0-40) 10/03/24 09:00 ALT 7 U/L (0-41) 10/03/24 09:00 Alkaline Phosphatase 167 U/L (40-130) H 10/03/24 09:00 Ammonia 22 umol/L (16-60) 10/03/24 09:00 Creatine Kinase 131 U/L (39-308) 10/03/24 09:00 Troponin T Baseline 77 ng/L (0-15) H 10/03/24 09:00 Troponin T 120 Minute 72.19 ng/L (0-15) H 10/03/24 11:14 Delta Troponin T -4.81 ABS# (0-10) L 10/03/24 11:14 NT-Pro-B Natriuret Pep > 23423 pg/mL (0-125) H 10/03/24 09:00 Total Protein 5.9 g/dL (6.6-8.7) L 10/03/24 09:00 Albumin 2.9 g/dL (3.5-5.2) L 10/03/24 09:00 Globulin 3.0 g/dL (1.3-4.6) 10/03/24 09:00 Lipase 64 U/L (13-60) H 10/03/24 09:00 Procalcitonin 0.32 ng/mL (0-0.5) 10/03/24 09:00 Urine Color Yellow (Yellow) 10/03/24 11:03 Urine Appearance Clear (CLEAR) 10/03/24 11:03 Urine pH 8.0 (5-7) A 10/03/24 11:03 Ur Specific Exira 1.011 (1.005-1.030) 10/03/24 11:03 Urine Protein 4+ (Negative) A 10/03/24 11:03 Urine Glucose (UA) Trace (Normal) H 10/03/24 11:03 Urine Ketones Negative (Negative) 10/03/24 11:03 Urine Blood 1+ (Negative) A 10/03/24 11:03 Urine Nitrate Negative (Negative) 10/03/24 11:03 Urine Bilirubin Negative (Negative) 10/03/24 11:03 Urine Urobilinogen 0.2 mg/dL (Negative) 10/03/24 11:03 Ur Leukocyte Esterase Negative (Negative) 10/03/24 11:03 Urine RBC 6-10 /hpf (0-2) 10/03/24 11:03 Urine WBC 0-5 /hpf (0-5) 10/03/24 11:03 Ur Squamous Epith Cells 0-5 /hpf (0-5) 10/03/24 11:03 Amorphous Sediment Not Reportable 10/03/24 11:03 Urine Bacteria None seen /hpf (NONE) 10/03/24 11:03 Hyaline Casts 0.40 /lpf 10/03/24 11:03 Urine Opiates Screen Negative ng/mL (Negative) 10/03/24 11:03 Ur Barbiturates Screen Negative ng/mL (Negative) 10/03/24 11:03 Ur Phencyclidine Scrn Negative ng/mL (Negative) 10/03/24 11:03 Ur Amphetamines Screen Negative ng/mL (Negative) 10/03/24 11:03 U Benzodiazepines Scrn Negative ng/mL (Negative) 10/03/24 11:03 Urine Cocaine Screen Negative ng/mL (Negative) 10/03/24 11:03 U Marijuana (THC) Screen Negative ng/mL (Negative) 10/03/24 11:03 Ethyl Alcohol < 10 mg/dL (0-10) 10/03/24 09:00 All radiology interpretation(s) finalized by discharge Discharge Plan Discharge Condition: Stable Prescriptions: No Action atorvastatin 40 mg tablet 40 mg PO DAILY clonidine HCl 0.1 mg tablet 0.1 mg PO TID carvedilol 12.5 mg tablet 12.5 mg PO BID levetiracetam 500 mg tablet 500 mg PO BID isosorbide mononitrate 30 mg tablet extended release 24 hr 30 mg PO DAILY hydralazine 25 mg tablet See Rx Instructions .ROUTE .COMPLEX Rx Instructions: 1 TAB ON WEDNESDAY, WEDNESDAY, & WEDNESDAY. THEN 2 TABS ON WEDNESDAY, WEDNESDAY, WEDNESDAY AND WEDNESDAY. levothyroxine 75 mcg tablet 75 mcg PO DAILY nifedipine 90 mg tablet extended release 24hr 90 mg PO DAILY amlodipine 10 mg tablet 10 mg PO DAILY pantoprazole 40 mg tablet,delayed release (DR/EC) 40 mg PO DAILY neomycin-polymyxin B-dexameth 3.5mg/mL-10,000 unit/mL-0.1 % drops,suspension 1 drp ophthalmic (eye) Q8H lisinopril 40 mg tablet 40 mg PO QAM sertraline 50 mg tablet 50 mg PO QAM cinacalcet 30 mg tablet 30 mg PO DAILY Eliquis 5 mg tablet 5 mg PO BID Velphoro 500 mg tablet,chewable 500 mg PO TID Referrals: Randolph Ortiz MD [Primary Care Provider, Family Practice] Patient Instructions: Altered Mental Status (ED) Print Language: Syrian Coding Level of Care Code 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 Documented by User: Marvin Tilley DO 10/03/24 13:40 HPI - Altered Mental Status General: Chief Complaint: Altered Mental Status Stated Complaint: AMS Time Seen by Provider: 10/03/24 09:05 Related Data Home Medications ?Medication ?Instructions ?Recorded ?Confirmed amlodipine 10 mg tablet 10 mg PO DAILY 10/03/24 10/03/24 apixaban 5 mg tablet (Eliquis) 5 mg PO BID 10/03/24 10/03/24 atorvastatin 40 mg tablet 40 mg PO DAILY 10/03/24 10/03/24 carvedilol 12.5 mg tablet 12.5 mg PO BID 10/03/24 10/03/24 cinacalcet 30 mg tablet 30 mg PO DAILY 10/03/24 10/03/24 clonidine HCl 0.1 mg tablet 0.1 mg PO TID 10/03/24 10/03/24 hydralazine 25 mg tablet See Rx Instructions .Route .COMPLEX 10/03/24 10/03/24 isosorbide mononitrate 30 mg 30 mg PO DAILY 10/03/24 10/03/24 tablet,extended release 24 hr levetiracetam 500 mg tablet 500 mg PO BID 10/03/24 10/03/24 levothyroxine 75 mcg tablet 75 mcg PO DAILY 10/03/24 10/03/24 lisinopril 40 mg tablet 40 mg PO QAM 10/03/24 10/03/24 ozpajazt-dutwdjvrh-ezrnsaoi 3.5 1 drp ophthalmic (eye) Q8H 10/03/24 10/03/24 mg/mL-10,000 unit/mL-0.1% eye drops nifedipine 90 mg tablet,extended 90 mg PO DAILY 10/03/24 10/03/24 release 24 hr pantoprazole 40 mg tablet,delayed 40 mg PO DAILY 10/03/24 10/03/24 release sertraline 50 mg tablet 50 mg PO QAM 10/03/24 10/03/24 sucroferric oxyhydroxide 500 mg 500 mg PO TID 10/03/24 10/03/24 chewable tablet (Velphoro) Allergies Allergy/AdvReac Type Severity Reaction Status Date / Time Penicillins Allergy ALGY-Anaphy Verified 09/29/24 11:43 laxis Sulfa (Sulfonamide Allergy Unknown Verified 09/29/24 11:43 Antibiotics) fluoxetine (From Prozac) AdvReac Mild stomach Verified 09/29/24 11:43 upset [facility] ED PFS: Medical History Moderate pulmonary hypertension Cannabis use disorder Hypoxia End stage renal disease on dialysis Congestive heart failure Grade 3 diastolic dysfunction on echocardiogram from 01/27/2024 Hypertension Hyperkalemia Atrial fibrillation with RVR Unstable angina Acute exacerbation of CHF (congestive heart failure) Acute hyperkalemia Shortness of breath Accelerated hypertension Hypertension Elevated troponin I level Chest pain Altered mental status Malaise Anemia in chronic kidney disease Hypoglycemia Neuropathy, lumbosacral (radicular) End stage renal disease on dialysis Tobacco use disorder Gout Major depressive disorder History of stroke Hypothyroidism GERD (gastroesophageal reflux disease) Dilated aortic root Right bundle branch block (RBBB) on electrocardiogram (ECG) Ascites Nephrogenic ascites, gets regular paracentesis Bilateral hydronephrosis Incomplete bladder emptying Chronic anemia Polycystic kidney disease CVA (cerebral vascular accident) Surgical History AV fistula left arm S/P hemodialysis catheter insertion (03/13/20) 23cm long exchanged right IJ Removed on 06/11/2020 History of colonoscopy 2019 at [facility] History of surgical procedure Peritoneal dialysis catheter placement by Dr. Kamara 2015 Family History Mother Chronic kidney disease (CKD) Stroke Father Cancer lung Brother Hypertension Other End stage renal disease on dialysis Denies family history of Diabetes CAD (coronary artery disease) Clotting disorder Dementia Hyperlipidemia Psychiatric illness Anesthesia complication Bleeding disorder Lung disease Social History Smoking and tobacco/nicotine status: never used tobacco/nicotine Quit status (tobacco/nicotine): has quit using Alcohol intake: never Substance/Drug Use: current Substance/Drug use frequency: few times a week Marital status: Number of children: 1 Current occupational status: disabled Current gender identity: Male Agree to transfusion: Yes Physical Exam Neuro: FINA COMA SCALE: document GCS findings Pearson coma scale total score: 11 Course Vital Signs: Vital signs: Vital Signs Temperature 98.4 F 10/03/24 09:09 Pulse Rate 98 10/03/24 13:29 Respiratory Rate 18 10/03/24 09:09 Blood Pressure 130/86 10/03/24 13:29 Pulse Oximetry 93 10/03/24 13:29 Oxygen Delivery Me thod Room Air 10/03/24 13:29 MDM - Altered Mental Status Medical Decision Making Patient is 59-year-old male with an extensive past medical history here with altered mental status. Family found him altered this morning after presumably a fall. Differential at time of arrival was broad including SBP, metabolic encephalopathy, sepsis, intracranial hemorrhage, etc. Extensive work up initiated. White count of 17.8. Normal procalcitonin and normal lactate. Ammonia was normal. Chemistry actually looks pretty good given his chronic illness. Family does confirm he has been going to his dialysis appointments. CXR does show fluid overload. He was not given additional IV fluids here because of this. He does have a history of CHF/pulmonary edema and clinically does look fluid overloaded. He was given IV Lasix. UA is clear. Paracentesis was ordered to rule out SBP however he does not have enough fluid on US for this to be completed. He was started on IV antibiotics. CT scans are eventually obtained and show bilateral subdural hematomas. CT chest/abdomen/pelvis also obtained and shows thoracic and lumbar epidural blood. Dr. Tilley has also evaluated patient and has been involved in his care during his ED stay. Patient will be transf Chart reviewed and patient discussed with midlevel. Agree with assessment and plan. Lab Data 10/03/24 09:00 10/03/24 09:00 Radiology Impressions Chest X-Ray 10/03/24 09:15 IMPRESSION: 1. Cardiac enlargement with pulmonary vascular congestion and pulmonary edema suggesting acute CHF. Small RIGHT basal pleural effusion. Head CT 10/03/24 09:15 IMPRESSION: 1. Bilateral acute extra-axial hematomas. 2. RIGHT subdural hematoma begins over the high parietal vertex and extends inferiorly with a maximum diameter of 5 mm. Minimal contact and displacement of the cerebrum. No midline shift. 3. LEFT extra-axial subdural hematoma centered at the level of the temporal lobe with a maximum diameter of 5.5 mm. 4. No intraventricular blood or midline shift. 5. 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 6. Worsening mastoiditis. Notified MARIA GUADALUPE Castellanos at 10/03/2024 12:42 PM. Abdomen/Pelvis CT 10/03/24 10:33 IMPRESSION: 1. Small but increasing RIGHT pleural effusion. 2. Tiny LEFT pleural effusion. 3. Enlarged heart. 4. Small bowel appears slightly dilated on the localizer image. This dilatation is difficult to confirm on the axial imaging. There is no obstructive pattern identified. 5. Known bilateral polycystic renal disease. 6. No free air. 7. Small amount of ascites. Insufficient for paracentesis. 8. Hong catheter in the urinary bladder with diffuse bladder wall thickening. 9. Extensive atherosclerosis aorta and iliac arteries. Chest CT 10/03/24 12:21 IMPRESSION: 1. Small bilateral pleural effusions, RIGHT greater than LEFT. 2. Marked cardiomegaly. 3. Pulmonary edema. 4. High density noted throughout the thoracic epidural space. This is contiguous high density beginning within the upper thoracic spine extending into the lumbar region. Due to the extensive involvement this is probably epidural blood. The epidural space can calcify. Patient does have significant calcification other locations. With history of trauma and acute subdural collections epidural blood should be considered. Notified MARIA GUADALUPE Castellanos at 10/03/2024 1:02 PM. Laboratory Results WBC 17.84 10^3/uL (3.29-11.43) H 10/03/24 09:00 RBC 3.46 10^6/uL (3.85-5.65) L 10/03/24 09:00 Hgb 10.60 g/dL (11.27-16.99) L 10/03/24 09:00 Hct 31.8 % (37-53) L 10/03/24 09:00 MCV 91.9 fl (82-101) 10/03/24 09:00 MCH 30.6 pg (27-33) 10/03/24 09:00 MCHC 33.3 g/dL (30-55) 10/03/24 09:00 RDW 16.8 % (12.1-15.1) H 10/03/24 09:00 Plt Count 244 10^3/cmm (157-399) 10/03/24 09:00 MPV 9.1 fL (7.4-10.4) 10/03/24 09:00 Neut % (Auto) 84.5 % 10/03/24 09:00 Lymph % (Auto) 6.2 % 10/03/24 09:00 Hodgeman % (Auto) 8.2 % 10/03/24 09:00 Eos % (Auto) 0.4 % 10/03/24 09:00 Baso % (Auto) 0.3 % 10/03/24 09:00 Neut # (Auto) 15.08 10^3/uL (1.8-7.7) H 10/03/24 09:00 Lymph # (Auto) 1.1 10^3/uL (0.8-4.8) 10/03/24 09:00 Hodgeman # (Auto) 1.5 10^3/uL (0.2-0.9) H 10/03/24 09:00 Eos # (Auto) 0.1 10^3/uL (0.0-0.8) 10/03/24 09:00 Baso # (Auto) 0.1 10^3/uL (0.0-0.1) 10/03/24 09:00 Nucleated RBC % (auto) 0 % 10/03/24 09:00 Nucleated RBCs # 0.0 /100WBC 10/03/24 09:00 PT 13.40 SECONDS (12.1-14.9) 10/03/24 09:00 INR 0.96 (0.8-1.2) 10/03/24 09:00 APTT 35.1 SECONDS (23.9-36.7) 10/03/24 09:00 Sodium 137 mmol/L (136-145) 10/03/24 09:00 Potassium 5.2 mmol/L (3.5-5.1) H 10/03/24 09:00 Chloride 100 mmol/L (98-107) 10/03/24 09:00 Carbon Dioxide 28 mmol/L (22-29) 10/03/24 09:00 Anion Gap 14.2 (5-19) 10/03/24 09:00 BUN 17 mg/dL (6-20) 10/03/24 09:00 Creatinine 3.6 mg/dL (0.7-1.2) H 10/03/24 09:00 GFR Calculation 17.4 mL/min (90-130) L 10/03/24 09:00 Glucose 95 mg/dL (65-115) 10/03/24 09:00 Calculated Osmolality 285 mOsm/kg (285-295) 10/03/24 09:00 Lactic Acid 1.7 mmol/L (0.5-2.2) 10/03/24 09:00 Calcium 9.6 mg/dL (8.5-10.5) 10/03/24 09:00 Phosphorus 3.6 mg/dL (2.5-4.5) 10/03/24 09:00 Magnesium 1.8 mg/dL (1.7-2.3) 10/03/24 09:00 Total Bilirubin 0.6 mg/dL (0.15-1.2) 10/03/24 09:00 AST 23 U/L (0-40) 10/03/24 09:00 ALT 7 U/L (0-41) 10/03/24 09:00 Alkaline Phosphatase 167 U/L (40-130) H 10/03/24 09:00 Ammonia 22 umol/L (16-60) 10/03/24 09:00 Creatine Kinase 131 U/L (39-308) 10/03/24 09:00 Troponin T Baseline 77 ng/L (0-15) H 10/03/24 09:00 Troponin T 120 Minute 72.19 ng/L (0-15) H 10/03/24 11:14 Delta Troponin T -4.81 ABS# (0-10) L 10/03/24 11:14 NT-Pro-B Natriuret Pep > 70157 pg/mL (0-125) H 10/03/24 09:00 Total Protein 5.9 g/dL (6.6-8.7) L 10/03/24 09:00 Albumin 2.9 g/dL (3.5-5.2) L 10/03/24 09:00 Globulin 3.0 g/dL (1.3-4.6) 10/03/24 09:00 Lipase 64 U/L (13-60) H 10/03/24 09:00 Procalcitonin 0.32 ng/mL (0-0.5) 10/03/24 09:00 Urine Color Yellow (Yellow) 10/03/24 11:03 Urine Appearance Clear (CLEAR) 10/03/24 11:03 Urine pH 8.0 (5-7) A 10/03/24 11:03 Ur Specific [place] 1.011 (1.005-1.030) 10/03/24 11:03 Urine Protein 4+ (Negative) A 10/03/24 11:03 Urine Glucose (UA) Trace (Normal) H 10/03/24 11:03 Urine Ketones Negative (Negative) 10/03/24 11:03 Urine Blood 1+ (Negative) A 10/03/24 11:03 Urine Nitrate Negative (Negative) 10/03/24 11:03 Urine Bilirubin Negative (Negative) 10/03/24 11:03 Urine Urobilinogen 0.2 mg/dL (Negative) 10/03/24 11:03 Ur Leukocyte Esterase Negative (Negative) 10/03/24 11:03 Urine RBC 6-10 /hpf (0-2) 10/03/24 11:03 Urine WBC 0-5 /hpf (0-5) 10/03/24 11:03 Ur Squamous Epith Cells 0-5 /hpf (0-5) 10/03/24 11:03 Amorphous Sediment Not Reportable 10/03/24 11:03 Urine Bacteria None seen /hpf (NONE) 10/03/24 11:03 Hyaline Casts 0.40 /lpf 10/03/24 11:03 Urine Opiates Screen Negative ng/mL (Negative) 10/03/24 11:03 Ur Barbiturates Screen Negative ng/mL (Negative) 10/03/24 11:03 Ur Phencyclidine Scrn Negative ng/mL (Negative) 10/03/24 11:03 Ur Amphetamines Screen Negative ng/mL (Negative) 10/03/24 11:03 U Benzodiazepines Scrn Negative ng/mL (Negative) 10/03/24 11:03 Urine Cocaine Screen Negative ng/mL (Negative) 10/03/24 11:03 U Marijuana (THC) Screen Negative ng/mL (Negative) 10/03/24 11:03 Ethyl Alcohol < 10 mg/dL (0-10) 10/03/24 09:00 Discharge Plan Discharge Condition: Stable Prescriptions: No Action atorvastatin 40 mg tablet 40 mg PO DAILY clonidine HCl 0.1 mg tablet 0.1 mg PO TID carvedilol 12.5 mg tablet 12.5 mg PO BID levetiracetam 500 mg tablet 500 mg PO BID isosorbide mononitrate 30 mg tablet extended release 24 hr 30 mg PO DAILY hydralazine 25 mg tablet See Rx Instructions .ROUTE .COMPLEX Rx Instructions: 1 TAB ON WEDNESDAY, WEDNESDAY, & WEDNESDAY. THEN 2 TABS ON WEDNESDAY, WEDNESDAY, WEDNESDAY AND WEDNESDAY. levothyroxine 75 mcg tablet 75 mcg PO DAILY nifedipine 90 mg tablet extended release 24hr 90 mg PO DAILY amlodipine 10 mg tablet 10 mg PO DAILY pantoprazole 40 mg tablet,delayed release (DR/EC) 40 mg PO DAILY neomycin-polymyxin B-dexameth 3.5mg/mL-10,000 unit/mL-0.1 % drops,suspension 1 drp ophthalmic (eye) Q8H lisinopril 40 mg tablet 40 mg PO QAM sertraline 50 mg tablet 50 mg PO QAM cinacalcet 30 mg tablet 30 mg PO DAILY Eliquis 5 mg tablet 5 mg PO BID Velphoro 500 mg tablet,chewable 500 mg PO TID Referrals: Randolph Ortiz MD [Primary Care Provider, Family Practice] Patient Instructions: Altered Mental Status (ED) Print Language: Syrian Coding Level of Care Code ED 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
[2024-10-03] MEDS: hyDRALAzine 20 mg/mL INJ 1 mL 10 MG IVP (09:23)
[2024-10-03 09:26] LABS: Basophils # 0.1 10^3/uL (0.0-0.1); Basophils % 0.3 %; Eosinophils # 0.1 10^3/uL (0.0-0.8); Eosinophils % 0.4 %; Hematocrit 31.8 % (37-53); Lymphocytes # 1.1 10^3/uL (0.8-4.8); Lymphocytes % 6.2 %; Mean Corpuscular HGB Conc 33.3 g/dL (30-55); Mean Corpuscular Hemoglobin 30.6 pg (27-33); Mean Corpuscular Volume 91.9 fl (82-101); Mean Platelet Volume 9.1 fL (7.4-10.4); Monocytes # 1.5 10^3/uL (0.2-0.9); Monocytes % 8.2 %; Neutrophils # 15.08 10^3/uL (1.8-7.7); Neutrophils % 84.5 %; Nucleated Red Blood Cells % 0 %; Platelet Count 244 10^3/cmm (157-399); Red Blood Count 3.46 10^6/uL (3.85-5.65); Red Cell Distribution Width 16.8 % (12.1-15.1); White Blood Count 17.84 10^3/uL (3.29-11.43)
--- NOTE | 2024-10-03 09:26 | PC.PHAR ---
patient not responding to medication questions. called pharmacy to verify meds and confirmed off of that with fill dates and day supply
[2024-10-03 09:47] LABS: Ammonia 22 umol/L (16-60); Lactic Sepsis W/Reflex 1.7 mmol/L (0.5-2.2)
[2024-10-03 10:01] LABS: Procalcitonin 0.32 ng/mL (0-0.5)
--- NOTE | 2024-10-03 10:05 | US_ITS ---
WS: [id number] Abdominal ultrasound, limited. History: Evaluate for ascites. Comparison: None. All 4 quadrants are imaged by ultrasound to evaluate for ascites. There is no peritoneal fluid identified. US/US abdomen lmt fluid [id number] IMPRESSION: No peritoneal ascites.
[2024-10-03 10:14] LABS: Alanine Aminotransferase 7 U/L (0-41); Albumin Level 2.9 g/dL (3.5-5.2); Alcohol Level < 10 mg/dL (0-10); Alkaline Phosphatase 167 U/L (40-130); Anion Gap 14.2 (5-19); Aspartate Amino Transferase 23 U/L (0-40); Blood Urea Nitrogen 17 mg/dL (6-20); Calcium 9.6 mg/dL (8.5-10.5); Carbon Dioxide 28 mmol/L (22-29); Chloride 100 mmol/L (98-107); Creatinine Clr Calc Pharmacy 22.7474; Glomerular Filtration Rate 17.4 mL/min (90-130); Glucose 95 mg/dL (65-115); Lipase 64 U/L (13-60); Magnesium 1.8 mg/dL (1.7-2.3); Osmolality Calculated 285 mOsm/kg (285-295); Phosphorus 3.6 mg/dL (2.5-4.5); Potassium 5.2 mmol/L (3.5-5.1); Sodium 137 mmol/L (136-145); Total Bilirubin 0.6 mg/dL (0.15-1.2); Total Protein 5.9 g/dL (6.6-8.7)
[2024-10-03 10:16] LABS: INR 0.96 (0.8-1.2)
[2024-10-03 10:17] LABS: Partial Thromboplastin Time 35.1 SECONDS (23.9-36.7)
[2024-10-03 10:29] LABS: NT Pro B Type Natriuretic Pept > 70000 pg/mL (0-125)
--- NOTE | 2024-10-03 10:33 | CT_ITS ---
WS: [id number] CT ABDOMEN AND PELVIS NONCONTRAST HISTORY: AMS, fall TECHNIQUE: Imaging performed through the abdomen and pelvis. Coronal and sagittal reformats are submitted. All CT scans at [facility] use at least one of these dose optimization techniques: automated exposure control; mA and/or kV adjustment per patient size (includes targeted exams where dose is matched to clinical indication); or iterative reconstruction. DLP: 969.23 mGy.cm COMPARISON: 01/27/2024 Lower thorax: Motion artifact at the lung bases. Suspect mild fluid overload. Small but increasing RIGHT pleural effusion. There is a very tiny LEFT pleural effusion. Heart appears enlarged. Liver: Scattered low-attenuation masses are probably cysts. Gallbladder: Increased density in the gallbladder may be stones. Pancreas: Poorly visualized pancreas. There is atrophy. Spleen: Normal. Adrenal glands: Not well visualized. Right kidney: Markedly enlarged kidney with known polycystic kidney disease. Some of the cysts are calcified. Left kidney: Markedly enlarged kidney with known polycystic renal disease. Some of the cysts are calcified. Aorta: Mild atherosclerosis abdominal aorta with no aneurysm. There is a small amount of ascites within the abdomen and pelvis. Not sufficient for paracentesis. Diffuse soft tissue anasarca. Mesenteric edema. GI tract: No obstructive pattern. Abdominal wall: Soft tissue anasarca. Pelvis: Ascites. Hong catheter in the nondistended bladder. Mild diffuse bladder wall thickening similar to prior studies. Osseous structures: There are few tiny cystic areas within the vertebral bodies which are unchanged. 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 Remote left-sided rib fractures. CT/CT abdomen pelvis wo con [id number] IMPRESSION: 1. Small but increasing RIGHT pleural effusion. 2. Tiny LEFT pleural effusion. 3. Enlarged heart. 4. Small bowel appears slightly dilated on the localizer image. This dilatatio n is difficult to confirm on the axial imaging. There is no obstructive pattern identified. 5. Known bilateral polycystic renal disease. 6. No free air. 7. Small amount of ascites. Insufficient for paracentesis. 8. Hong catheter in the urinary bladder with diffuse bladder wall thickening. 9. Extensive atherosclerosis aorta and iliac arteries.
[2024-10-03] MEDS: meropenem 1,000 mg SDV 1000 MG IVP (11:06)
[2024-10-03 11:10] LABS: Bilirubin Urine Negative (Negative); Blood Urine 1+ (Negative); Glucose Urine UA Trace (Normal); Ketones Urine Negative (Negative); Leukocyte Esterase Urine Negative (Negative); Nitrate Urine Negative (Negative); Protein Urine 4+ (Negative); Specific Gravity, Urine 1.011 (1.005-1.030); Urine Appearance Clear (CLEAR); Urine Color Yellow (Yellow); Urobilinogen Urine 0.2 mg/dL (Negative)
[2024-10-03] MEDS: nicardipine 20 MG/200 ML PREMIX 50 MG IV (11:10)
[2024-10-03 11:12] LABS: Add Urine Microscopic? YES; Bacteria Urine None Seen /hpf; Squamous Epithelial Cell Urine 0-5 /hpf (0-5); WBC Urine 0-5 /hpf (0-5)
[2024-10-03 11:16] LABS: Add Urine Culture? No
[2024-10-03 11:17] LABS: Amphetamines Screen Urine Negative (Negative); Barbiturates Screen Urine Negative (Negative); Benzodiazepines Screen Urine Negative (Negative); Cocaine Screen Urine Negative (Negative); Opiate Screen Urine Negative (Negative); PCP Screen Urine Negative (Negative); THC Screen Urine Negative (Negative)
[2024-10-03] MEDS: FUROsemide 10 mg/mL SDV 10mL 60 MG IVP (11:27)
--- NOTE | 2024-10-03 11:29 | PC.NURSE ---
INCREASED NICARDIPINE RATE TO 7.5 PER PROTOCOL. BP 180/99
[2024-10-03 11:40] LABS: Creatine Phosphokinase 131 U/L (39-308)
[2024-10-03 11:41] LABS: Troponin(5th) Baseline 77 ng/L (0-15)
[2024-10-03 11:52] LABS: Troponin 5 2HR 72.19 ng/L (0-15)
[2024-10-03 11:56] LABS: Troponin 5 2HR Delta -4.81 ABS# (0-10)
[2024-10-03] MEDS: LORazepam 1 MG/0.5 ML injection 2 MG IVP (12:02)
--- NOTE | 2024-10-03 12:21 | CT_ITS ---
WS: [id number] CT chest wo con [id number] HISTORY: AMS, FALL TECHNIQUE: Axial imaging performed through the thorax. Coronal and sagittal reformats are submitted. All CT scans at [facility] use at least one of these dose optimization techniques: automated exposure control; mA and/or kV adjustment per patient size (includes targeted exams where dose is matched to clinical indication); or iterative reconstruction. CONTRAST: None DLP: 408.78 mGy.cm COMPARISON: 03/28/2023 Study is significantly compromised by motion artifact. Lungs and central airway: Pulmonary edema. Small bilateral pleural effusions, RIGHT greater than LEFT. Heart is enlarged. Pleura: Small bilateral pleural effusions, RIGHT greater than LEFT. Heart and pericardium: Markedly enlarged heart with a small pericardial effusion. Mediastinum and lizet: Limited due to the amount of motion. Vessels: Heavy atherosclerotic plaque within the aorta. Dilated pulmonary artery. Chest wall and lower neck: Soft tissue anasarca. Prior bilateral rib fractures. No acute fracture identified. Upper abdomen: Small amount of ascites surrounds the liver and spleen. Patient has known polycystic kidney disease. Osseous structures: There is high density noted in the thoracic region which appears to be within the epidural space. This area of high density begins in the upper thoracic spine and extends inferiorly. Majority of the blood is posterior but there are a few areas of increased density is slightly more anterior. There is mild extension of high density into the lumbar region. Not likely calcification due to extensive involvement. CT/CT chest wo con [id number] IMPRESSION: 1. Small bilateral pleural effusions, RIGHT greater than LEFT. 2. Marked cardiomegaly. 3. Pulmonary edema. 4. High density noted throughout the thoracic epidural space. This is contiguo us high density beginning within the upper thoracic spine extending into the wenceslao mbar region. Due to the extensive involvement this is probably epidural blood. The epidural space can calcify. Patient does have significant calcification oth er locations. With history of trauma and acute subdural collections epidural bl ood should be considered. Notified MARIA GUADALUPE Castellanos at 10/03/2024 1:02 PM.
--- NOTE | 2024-10-03 13:04 | ECG_ITS ---
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: : [id number] Requested By: Isabella Hurst Order Number: [id number] Reading MD: NICKI FRIAS Measurements Intervals [place] Rate: 104 P: 94 [place]: 172 QRS: -32 QRSD: 106 T: 0 QT: 366 QTc: 483 Interpretive Statements SINUS TACHYCARDIA LEFT AXIS DEVIATION [QRS AXIS < -30] NONSPECIFIC T-WAVE ABNORMALITY Compared to ECG 10/03/2024 08:57:20 Left-axis deviation now present T-wave abnormality now present Incomplete right bundle-branch block no longer present Left anterior fascicular block no longer present ST (T wave) deviation no longer present Electronically Signed On 10-05-2024 23:45:14 CDT by NICKI FRIAS [email or web address]
[2024-10-03] MEDS: nicardipine 20 MG/200 ML PREMIX 75 MG IV (13:57)
[2024-10-03 15:31] LABS: Troponin 5 6HR 74.82 ng/L (0-15)
[2024-10-03 15:32] LABS: Troponin 5 6HR Delta -2.18 ng/L (0-12)
[2024-10-05 09:58] LABS: Levetiracetam Immunoassy 5.4 mcg/mL (6.0-46.0)
== END 2024-10-03 16:10 | disposition short-term general hospital (02) ==
PROVIDERS: Emergency Provider Physician Assistant; PCP Family Medicine
DX: S06.4XAA Epidural hemorrhage with loss of consciousness status unknown, initial encounter (principal); S06.5XAA Traumatic subdural hemorrhage with loss of consciousness status unknown, initial encounter; W19.XXXA Unspecified fall, initial encounter; Z79.01 Long term (current) use of anticoagulants; Z86.73 Personal history of transient ischemic attack (TIA), and cerebral infarction without residual deficits; I13.0 Hypertensive heart and chronic kidney disease with heart failure and stage 1 through stage 4 chronic kidney disease, or unspecified chronic kidney disease; N18.9 Chronic kidney disease, unspecified; I50.30 Unspecified diastolic (congestive) heart failure
CPT/HCPCS: 36415; 51702; 70450; 71045; 71250; 74176; 76705; 80053; 80177; 80306; 80307; 81001; 82140; 82550; 83605; 83690; 83735; 83880; 84100; 84145; 84484; 85025; 85610; 85730; 87040; 93005; 96365; 96366; 96375; 99285; J0360; J1938; J2060; J2185